=== PATIENT | female | born 1940 | race Caucasian/White ===

== ENCOUNTER → 2020-05-16 14:43 | Outpatient (BNVA) | payer MEDICARE, BC, OTHER, SELFPAY | PROVIDERS: Family Provider Family Medicine; PCP Family Medicine; Referring Provider Dermatology; Visit Provider Dermatology | DX: L72.0 Epidermal cyst (principal); L82.1 Other seborrheic keratosis; D23.9 Other benign neoplasm of skin, unspecified; L81.8 Other specified disorders of pigmentation | CPT/HCPCS: 99203 ==

== ENCOUNTER 2020-07-31 10:08 | Emergency (ER) | payer MEDICARE, BC, SELFPAY ==
[2020-07-31 10:19] VITALS: BP 144/83; PULSE 75; RESP 20; TEMP 37.3; O2SAT 92; BMI 30.2
--- NOTE | 2020-07-31 10:27 | ED_ITS ---
HPI - Altered Mental Status General: Chief Complaint: Altered Mental Status Stated Complaint: CONFUSION/AMS Time Seen by Provider: 07/31/20 10:27 History of Present Illness: HPI narrative: Patient arrive via pov with complaint of confusion -low oxygen saturation and possible high blood sugar. Family states that she had been confused last couple days and patient relates she has been also has had episodes this in the past. Patient also had sleep study done in remote past that was negative at that time patient sats seem to go down when she sleeping. MD complaint: confusion Onset (ago): day(s) (2) Timing confirmed by: family member Consistency of symptoms: Unknown Context: diabetes and other (CHF) Associated symptoms: Reports no associated symptoms; Deny depression Treatments prior to arrival: oxygen Review of Systems Narrative: Fluctuating blood sugars trend to be controlled by primary care provider Const: Denies: fever(s), chills or body aches Eyes: Denies: change in vision or blurry vision ENMT: Denies: throat pain or nasal congestion Card: Denies: chest pain or dyspnea on exertion Resp: Denies: dyspnea, productive cough or non-productive cough GI: Denies: abdominal pain, nausea or vomiting Musc: Denies: extremity pain Skin/Breast: Denies: rash Neuro: Reports: confusion; Denies: headache(s) Psych: Denies: anxiety or depression Newton/Lymph: Denies: easy bruising PFS ED PFSH: Medical History (Updated 07/31/20 @ 14:47 by KENTON Escobar) CHF (congestive heart failure) CKD (chronic kidney disease) Diabetes HTN (hypertension) PVC (premature ventricular contraction) Family History Mother Hypertension Grandmother Hypertension MATERNAL Other Cancer Diabetes Social History Smoking and tobacco status: former smoker Household members: spouse Marital status: Physical Exam Const: COMMON NORMALS: no acute distress, average body habitus and alert ORIENTATION/CONSCIOUSNESS: Yes oriented to person; not oriented to place and not oriented to time HENMT: COMMON NORMALS: normocephalic HEAD & SCALP: normal to inspection and normocephalic FACE & SINUS: normal facial exam Eye: COMMON NORMALS: conjunctivae normal GENERAL EYE: appearance normal, both eyes and all related structures CONJUNCTIVA: Yes conjunctivae normal Neck/C-Spine: COMMON NORMALS: no JVD Chest: COMMONS NORMALS: normal inspection of the chest Resp: COMMON NORMALS: normal respiratory effort and clear to auscultation bilaterally AUSCULTATION: clear to auscultation bilaterally Cardio: COMMON NORMALS: no JVD, regular rate and regular rhythm RATE: regular rate RHYTHM: regular rhythm GI: COMMON NORMALS: Normal to inspection, nondistended, normoactive bowel sounds present Extremity: COMMON NORMALS: normal to inspection and full ROM Neuro: SENSORIUM/ORIENTATION: Yes alert, Yes oriented to person, No oriented to place and No oriented to time Skin: OTHER: Skin to face pale Course Vital Signs: Vital signs: Vital Signs Temperature 99.1 F 07/31/20 10:19 Pulse Rate 83 07/31/20 12:26 Respiratory Rate 20 H 07/31/20 12:26 Blood Pressure 115/65 07/31/20 12:26 Pulse Oximetry 95 07/31/20 12:26 MDM - Altered Mental Status MDM Narrative: Medical decision making narrative: Dr. Nguyen asked me to start evaluation work-up on this patient. Discussed case with Dr. Poole. Patient to follow-up Dr. Garduno get overnight oxygen saturation study done. Try to get blood sugars under control as per Dr. Garduno's office. Patient dropped a urine sample off to Dr. Garduno's office when she can collect. Daughter in the room and agrees with plan. Differential Diagnosis: Differential diagnosis altered mental status: Likely altered mental status and dementia Lab Data: Labs: Lab Results 07/31/20 07/31/20 07/31/20 Range/Units 10:30 10:30 10:30 WBC 6.8 (4.0-10.0) 10^3/ uL RBC 3.31 L (4.1-5.3) 10^6/u L Hgb 9.9 L (11.5-15.3) g/dL Hct 30.4 L (37.0-47.0) % MCV 91.8 (81-99) fL MCH 29.9 (28.0-34.0) pg MCHC 32.6 (30.0-36.0) g/dL RDW 12.0 L (12.1-15.1) % Plt Count 190 (130-400) 10^3/c mm MPV 10.1 (7.4-10.4) fL Neut % (Auto) 74.4 % Lymph % (Auto) 15.8 % [place] % (Auto) 9.1 % Eos % (Auto) 0.0 % Baso % (Auto) 0.3 % Neut # (Auto) 5.09 (1.8-7.7) 10^3/u L Lymph # (Auto) 1.1 (0.8-4.8) 10^3/u L [place] # (Auto) 0.6 (0.2-0.9) 10^3/u L Eos # (Auto) 0.0 (0.0-0.8) 10^3/u L Baso # (Auto) 0.0 (0.0-0.1) 10^3/u L Nucleated RBC % (a uto) 0 % Nucleated RBCs # 0.0 /100WBC PT 14.40 (12.1-14.9) SECO NDS INR 1.08 (0.8-1.2) Specimen Type Sample Site ABG pH (7.35-7.45) ABG pCO2 (35-45) mmHg ABG pO2 (80.0-100.0) mmH g ABG HCO3 (22-26) mmol/L ABG Base Excess (-2.0-2.0) mmol/ L Jorge Test Hematocrit (37-47) % O2 Delivery Device O2 Liters/Min % FiO2 % Form Builder Helper ID Sodium 132 L (136-145) mmol/L Potassium 4.2 (3.5-5.1) mmol/L Chloride 97 L (98-107) mmol/L Carbon Dioxide 22 (22-29) mmol/L Anion Gap 17.2 (5-19) BUN 43 H (8-23) mg/dL Creatinine 2.4 H (0.5-0.9) mg/dL GFR Calculation Not Reportable Glucose 382 H (65-115) mg/dL POC Glucose (70-110) mg/dL Calculated Osmolal ity 301 H (285-295) mOsm/k g Lactate (0.5-2.2) mmol/L Calcium 8.7 (8.5-10.5) mg/dL Total Bilirubin 0.4 (0.15-1.2) mg/dL AST 19 (0-32) U/L ALT 15 (0-33) U/L Alkaline Phosphata se 95 (35-105) IU/L NT-Pro-B Natriuret Pep 2821 H (0-450) pg/mL Total Protein 6.9 (6.6-8.7) g/dL Albumin 3.6 (3.5-5.2) g/dL Globulin 3.3 (1.3-4.6) g/dL 07/31/20 07/31/20 07/31/20 Range/Units 10:30 10:35 11:23 WBC (4.0-10.0) 10^3/ uL RBC (4.1-5.3) 10^6/u L Hgb (11.5-15.3) g/dL Hct (37.0-47.0) % MCV (81-99) fL MCH (28.0-34.0) pg MCHC (30.0-36.0) g/dL RDW (12.1-15.1) % Plt Count (130-400) 10^3/c mm MPV (7.4-10.4) fL Neut % (Auto) % Lymph % (Auto) % [place] % (Auto) % Eos % (Auto) % Baso % (Auto) % Neut # (Auto) (1.8-7.7) 10^3/u L Lymph # (Auto) (0.8-4.8) 10^3/u L [place] # (Auto) (0.2-0.9) 10^3/u L Eos # (Auto) (0.0-0.8) 10^3/u L Baso # (Auto) (0.0-0.1) 10^3/u L Nucleated RBC % (a uto) % Nucleated RBCs # /100WBC PT (12.1-14.9) SECO NDS INR (0.8-1.2) Specimen Type Arterial Sample Site Radial, left ABG pH 7.42 (7.35-7.45) ABG pCO2 33.0 L (35-45) mmHg ABG pO2 72.8 L (80.0-100.0) mmH g ABG HCO3 21.3 L (22-26) mmol/L ABG Base Excess -2.7 L (-2.0-2.0) mmol/ L Jorge Test Pos Hematocrit 30.3 L (37-47) % O2 Delivery Device Nc O2 Liters/Min 2.0 % FiO2 28.0 % Form Builder Helper ID glc Sodium (136-145) mmol/L Potassium (3.5-5.1) mmol/L Chloride (98-107) mmol/L Carbon Dioxide (22-29) mmol/L Anion Gap (5-19) BUN (8-23) mg/dL Creatinine (0.5-0.9) mg/dL GFR Calculation Glucose (65-115) mg/dL POC Glucose 385 (70-110) mg/dL Calculated Osmolal ity (285-295) mOsm/k g Lactate 1.2 (0.5-2.2) mmol/L Calcium (8.5-10.5) mg/dL Total Bilirubin (0.15-1.2) mg/dL AST (0-32) U/L ALT (0-33) U/L Alkaline Phosphata se (35-105) IU/L NT-Pro-B Natriuret Pep (0-450) pg/mL Total Protein (6.6-8.7) g/dL Albumin (3.5-5.2) g/dL Globulin (1.3-4.6) g/dL 07/31/20 Range/Units 12:14 WBC (4.0-10.0) 10^3/ uL RBC (4.1-5.3) 10^6/u L Hgb (11.5-15.3) g/dL Hct (37.0-47.0) % MCV (81-99) fL MCH (28.0-34.0) pg MCHC (30.0-36.0) g/dL RDW (12.1-15.1) % Plt Count (130-400) 10^3/c mm MPV (7.4-10.4) fL Neut % (Auto) % Lymph % (Auto) % [place] % (Auto) % Eos % (Auto) % Baso % (Auto) % Neut # (Auto) (1.8-7.7) 10^3/u L Lymph # (Auto) (0.8-4.8) 10^3/u L [place] # (Auto) (0.2-0.9) 10^3/u L Eos # (Auto) (0.0-0.8) 10^3/u L Baso # (Auto) (0.0-0.1) 10^3/u L Nucleated RBC % (a uto) % Nucleated RBCs # /100WBC PT (12.1-14.9) SECO NDS INR (0.8-1.2) Specimen Type Sample Site ABG pH (7.35-7.45) ABG pCO2 (35-45) mmHg ABG pO2 (80.0-100.0) mmH g ABG HCO3 (22-26) mmol/L ABG Base Excess (-2.0-2.0) mmol/ L Jorge Test Hematocrit (37-47) % O2 Delivery Device O2 Liters/Min % FiO2 % Form Builder Helper ID Sodium (136-145) mmol/L Potassium (3.5-5.1) mmol/L Chloride (98-107) mmol/L Carbon Dioxide (22-29) mmol/L Anion Gap (5-19) BUN (8-23) mg/dL Creatinine (0.5-0.9) mg/dL GFR Calculation Glucose (65-115) mg/dL POC Glucose 283 (70-110) mg/dL Calculated Osmolal ity (285-295) mOsm/k g Lactate (0.5-2.2) mmol/L Calcium (8.5-10.5) mg/dL Total Bilirubin (0.15-1.2) mg/dL AST (0-32) U/L ALT (0-33) U/L Alkaline Phosphata se (35-105) IU/L NT-Pro-B Natriuret Pep (0-450) pg/mL Total Protein (6.6-8.7) g/dL Albumin (3.5-5.2) g/dL Globulin (1.3-4.6) g/dL Discharge Plan Discharge Patient Disposition: Home Clinical Impression: Hyperglycemia, Nocturnal oxygen desaturation Condition: Stable Prescriptions: No Action coenzyme Q10 [CoQ-10] 100 mg capsule 100 mg PO DAILY RF: 0 docusate sodium [Stool Softener] 100 mg capsule 100 mg PO DAILY RF: 0 ferrous sulfate 325 mg (65 mg iron) tablet 325 mg PO BID RF: 0 losartan 100 mg tablet 100 mg PO DAILY RF: 0 Lantus U-100 Insulin 100 unit/mL solution 30 unit SUBCUT BEDTIME RF: 0 insulin lispro [Humalog U-100 Insulin] 100 unit/mL solution See Rx Instructions .ROUTE .COMPLEX RF: 0 metoprolol succinate 100 mg tablet extended release 24 hr 100 mg PO DAILY RF: 0 levothyroxine 75 mcg tablet 75 mcg PO DAILY RF: 0 potassium chloride [Klor-Con M10] 10 mEq tablet,ER particles/crystals 20 meq PO DAILY RF: 0 doxazosin 2 mg tablet 2 mg PO BEDTIME RF: 0 aspirin [Aspir-81] 81 mg tablet,delayed release (DR/EC) 81 mg PO DAILY RF: 0 clonidine HCl 0.1 mg tablet 0.1 mg PO PRN PRN (Reason: hypertensive emergency) RF: 0 atorvastatin 10 mg tablet 5 mg PO DAILY RF: 0 omeprazole 20 mg capsule,delayed release(DR/EC) 20 mg PO DAILY RF: 0 amlodipine 5 mg tablet 10 mg PO DAILY RF: 0 torsemide 20 mg tablet 20 mg PO DAILY RF: 0 Tylenol Extra Strength 500 mg Tablet 500 - 1,000 mg PO PRN RF: 0 Centrum Silver Tablet 1 tab PO DAILY RF: 0 [place] 3 Capsule 1,000 mg PO DAILY RF: 0 turmeric root extract 500 mg Capsule 500 mg PO DAILY RF: 0 Discharge Orders: Discharge Order (Routine); Ordered 07/31/20 Ordered By: Mac Albert Referrals: Mann Garduno MD [Primary Care Provider] - Discharge Diet: Advance as tolerated Discharge Activity: Resume usual activity Activity Restrictions/Additional Instructions: maker sure to get scheduled for an overnight oxygen saturation test, take urine sample into Dr. Wiley, follow up with him Coding Level of Care Code ED Mutual Fund Manager for Chg Fwd Exam Comprehensive
--- NOTE | 2020-07-31 10:34 | CT_ITS ---
WS: [id number] CT scan of the head, 07/31/2020 Clinical Data: ams Comparison: MRI head, 12/16/2018. CT head, 12/15/2018. DLP: 778.[address] scans at [facility] use at least one of these dose optimization techniques: automat ed exposure control; mA and/or kV adjustment per patient size (includes targeted exams where dose is matched to clinical indication); or iterative reconstruction. Findings: The ventricular system is moderately dilated without shift. No recent infarct or hemorrhage is seen. There are no abnormal intracerebral masses. There is a faint calcification adjacent to the anterior h orn of the right temporal lobe which has been described as a small meningioma. A CT scan with IV cont rast may be helpful for evaluation. This is seen best on image 15 of 56 on the axial scans. The cereb ellum and brainstem are not remarkable. Bony windows of the skull and skull base show no fractures or erosions. The mastoid air cells, culinary internship al auditory canals, sella turcica, and paranasal sinuses are unremarkable. Bilateral intraocular levy s implants have been inserted. CT/CT head wo con* [id number] Impression: 1. Moderate cerebral atrophy. 2. Negative for acute intracranial abnormalities. 3. Questionable small right temporal lobe meningioma has not changed.
--- NOTE | 2020-07-31 10:34 | XR_ITS ---
WS: [id number] XR chest 1V portable [id number] REASON FOR EXAM: ams FINDINGS: The chest is unchanged compared to previous examination of 08/24/2019. There is reticular interstitial change in the upper lung field which is present on the previous examination. More coarse chronic jason earing interstitial changes in the lung bases. No definite new infiltrates. No effusion identified. Mild cardiomegaly. XR/XR chest 1V portable [id number] IMPRESSION: Stable abnormal chest.
[2020-07-31 10:38] LABS: Glucose Point of Care 385 mg/dL (70-110)
[2020-07-31] MEDS: sodium chloride 0.9% 500 ML IV (10:45)
[2020-07-31 10:55] LABS: Basophils % 0.3 %; Hematocrit 30.4 % (37.0-47.0); Hemoglobin 9.9 g/dL (11.5-15.3); Lymphocytes # 1.1 10^3/uL (0.8-4.8); Lymphocytes % 15.8 %; Mean Corpuscular HGB Conc 32.6 g/dL (30.0-36.0); Mean Corpuscular Hemoglobin 29.9 pg (28.0-34.0); Mean Corpuscular Volume 91.8 fL (81-99); Mean Platelet Volume 10.1 fL (7.4-10.4); Monocytes # 0.6 10^3/uL (0.2-0.9); Monocytes % 9.1 %; Neutrophils # 5.09 10^3/uL (1.8-7.7); Neutrophils % 74.4 %; Nucleated Red Blood Cells % 0 %; Platelet Count 190 10^3/cmm (130-400); Red Blood Count 3.31 10^6/uL (4.1-5.3); White Blood Count 6.8 10^3/uL (4.0-10.0)
[2020-07-31 11:08] LABS: INR 1.08 (0.8-1.2)
[2020-07-31 11:10] LABS: Lactate (Lactic Acid level) 1.2 mmol/L (0.5-2.2)
[2020-07-31 11:18] LABS: Alanine Aminotransferase 15 U/L (0-33); Albumin Level 3.6 g/dL (3.5-5.2); Alkaline Phosphatase 95 IU/L (35-105); Anion Gap 17.2 (5-19); Aspartate Amino Transferase 19 U/L (0-32); Blood Urea Nitrogen 43 mg/dL (8-23); Calcium 8.7 mg/dL (8.5-10.5); Carbon Dioxide 22 mmol/L (22-29); Chloride 97 mmol/L (98-107); Globulin 3.3 g/dL (1.3-4.6); Glucose 382 mg/dL (65-115); NT Pro B Type Natriuretic Pept 2821 pg/mL (0-450); Osmolality Calculated 301 mOsm/kg (285-295); Potassium 4.2 mmol/L (3.5-5.1); Sodium 132 mmol/L (136-145); Total Bilirubin 0.4 mg/dL (0.15-1.2); Total Protein 6.9 g/dL (6.6-8.7)
[2020-07-31 11:35] LABS: ABG PH Result 7.42 (7.35-7.45); Arterial Blood Gas Hematocrit 30.3 % (37-47); Base Excess ABG -2.7 mmol/L (-2.0-2.0); Blood Gas Allen Test Pos; Blood Gas Operator Identificat glc; Blood Gas Sample Site Radial, left; Blood Gas Sample Type Arterial; HCO3 ABG 21.3 mmol/L (22-26); Oxygen Device NC; PO2 ABG 72.8 mmHg (80.0-100.0)
[2020-07-31] MEDS: insulin regular-human 100 units/1 mL 8 UNIT IVP (11:39)
[2020-07-31 11:40] VITALS: BP 130/64; PULSE 73; RESP 16; O2SAT 99
[2020-07-31 12:19] LABS: Glucose Point of Care 283 mg/dL (70-110)
[2020-07-31 12:26] VITALS: BP 115/65; PULSE 83; RESP 20; O2SAT 95
[2020-07-31] MEDS: FUROsemide 10 mg/mL SDV 4mL 40 MG IVP (13:25)
[2020-07-31 15:27] VITALS: BP 115/65; PULSE 83; RESP 20; O2SAT 95
== END 2020-07-31 15:27 | disposition home or self-care (01) ==
PROVIDERS: Emergency Provider Nurse Practitioner Family; PCP Family Medicine
DX: E11.65 Type 2 diabetes mellitus with hyperglycemia (principal); N18.9 Chronic kidney disease, unspecified; Z79.4 Long term (current) use of insulin; Z79.82 Long term (current) use of aspirin; Z87.891 Personal history of nicotine dependence; I13.0 Hypertensive heart and chronic kidney disease with heart failure and stage 1 through stage 4 chronic kidney disease, or unspecified chronic kidney disease; I50.9 Heart failure, unspecified; E11.22 Type 2 diabetes mellitus with diabetic chronic kidney disease
CPT/HCPCS: 12345; 36416; 36600; 70450; 71045; 80053; 82803; 82962; 83605; 83880; 85025; 85610; 96361; 96374; 96375; 99283; 99284; J1815; J1940; J7040

== ENCOUNTER 2020-08-02 13:16 | Inpatient (IN) | payer MEDICARE, BC, SELFPAY ==
[2020-08-02] VITALS (20 sets, daily range): BP systolic 122–164; BP diastolic 43–85; PULSE 71–87; RESP 16–33; TEMP 37.4–39.2; O2SAT 82–95; BMI 33.0
--- NOTE | 2020-08-02 13:24 | XR_ITS ---
WS: [id number] Portable AP upright chest, 08/02/2020 Clinical Data: ams Comparison: Portable chest, 07/31/2020. Findings: The patchy opacity in the right upper lobe have not changed. However there is increasing op acity in the left lung and the right lower lobe. The heart is enlarged. The aortic arch shows calcifi cation. No masses or effusions are seen. XR/XR chest 1V portable [id number] Impression: 1. Worsening opacities in left lung and right lower lobe which may indicate wor sening pneumonia. 2. No change in right upper lobe opacity. 3. Cardiomegaly and atherosclerosis.
--- NOTE | 2020-08-02 13:24 | CTR_ITS ---
PROCEDURE INFORMATION: Exam: CT Head Without Contrast Exam date and time: 08/02/2020 1:28 PM Age: 80 years old Clinical indication: Altered mental status/memory loss; Additional info: AMS - progressively worse from the other day TECHNIQUE: Imaging protocol: Computed tomography of the head without contrast. Radiation optimization: All CT scans at this facility use at least one of these dose optimization techniques: automated exposure control; mA and/or kV adjustment per patient size (includes targeted exams where dose is matched to clinical indication); or iterative reconstruction. COMPARISON: CT head wo con* [id number] 07/31/2020 11:18 AM RADIATION DOSE METRICS: Total DLP (mGy-cm): 559.98 FINDINGS: Brain: There is no acute intracranial hemorrhage or mass effect. Moderate diffuse volume loss is within the range of normal for patient age. There are small vessel ischemic changes within the periventricular and subcortical white matter, but the normal anderson-white matter delineation is maintained. There is a stable small partially calcified right anterior temporal meningioma. Cerebral ventricles: Prominence of the ventricular system is commensurate with volume loss. Bones/joints: Unremarkable. No acute fracture. Paranasal sinuses: Visualized sinuses are unremarkable. No fluid levels. Mastoid air cells: Visualized mastoid air cells are well aerated. Soft tissues: Unremarkable. CT/CT head wo con* [id number] IMPRESSION: No acute intracranial hemorrhage or edema. Radiation Dose CTDIVOL = (mGy): DLP = 559.98 (mGy-cm)
--- NOTE | 2020-08-02 13:25 | ECG_ITS ---
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 Measurements Intervals Mobile Rate: 86 P: 25 WA: 168 QRS: 29 QRSD: 101 T: 66 QT: 370 QTc: 445 Interpretive Statements SINUS RHYTHM WITH OCCASIONAL SUPRAVENTRICULAR PREMATURE COMPLEXES NONSPECIFIC T-WAVE ABNORMALITY Compared to ECG 03/11/2019 15:00:35 T-wave abnormality now present Electronically Signed On 08-03-2020 20:05:41 [employer] by Tony Villatoro M.D. [email or web address]
--- NOTE | 2020-08-02 14:06 | W.ED.AMS ---
HPI - Altered Mental Status General: Chief Complaint: Altered Mental Status Stated Complaint: AMS Time Seen by Provider: 08/02/20 13:21 Source: patient Mode of arrival: ambulatory Limitations: no limitations History of Present Illness: HPI narrative: 80-year-old female states she has been feeling quite ill over the last 2 to 3 days along with generalized weakness and diaphoresis. She has had low-grade fevers along with some shortness of breath. Per family states she has been altered today. She is able answer all my questions appropriately but does a appear that she feels ill. Associated symptoms: Deny depression Review of Systems Const: Reports: chills and malaise Eyes: Denies: blurry vision or eye discomfort ENMT: Denies: throat pain or dental pain Card: Denies: chest pain Resp: Reports: dyspnea GI: Denies: abdominal pain, nausea, vomiting or diarrhea : Denies: dysuria Musc: Denies: neck pain or back pain Skin/Breast: Denies: rash Neuro: Reports: weakness in extremities Psych: Denies: depression Newton/Lymph: Denies: easy bruising All/Imm: Denies: urticaria PFSH ED PFSH: Medical History (Updated 08/02/20 @ 15:59 by David Gaitan MD) CHF (congestive heart failure) CKD (chronic kidney disease) Diabetes HTN (hypertension) PVC (premature ventricular contraction) Family History Mother Hypertension Grandmother Hypertension MATERNAL Other Cancer Diabetes Social History Smoking and tobacco status: former smoker Household members: spouse Marital status: Physical Exam Const: COMMON NORMALS: patient oriented x3 GENERAL APPEARANCE: ill appearing HENMT: COMMON NORMALS: normocephalic and atraumatic HEAD & SCALP: normocephalic and atraumatic Eye: COMMON NORMALS: Equal, round and reactive pupils present and EOMs intact bilaterally PUPIL: Yes Equal, round and reactive pupils present Neck/C-Spine: COMMON NORMALS: full ROM and supple Chest: COMMONS NORMALS: normal inspection of the chest and normal palpation of entire chest wall Resp: COMMON NORMALS: normal respiratory effort, No retractions and No use of accessory muscles AUSCULTATION: rales Cardio: COMMON NORMALS: regular rate, regular rhythm and No murmurs present (Cardio) RATE: regular rate RHYTHM: regular rhythm GI: COMMON NORMALS: Normal to inspection, nondistended, normoactive bowel sounds present, Soft to palpation, non-tender and no masses PALPATION: Yes Soft to palpation Extremity: COMMON NORMALS: normal to inspection and full ROM Neuro: COMMON NORMALS: patient oriented x3, moves all extremities and no focal motor deficits Psych: COMMON NORMALS: mental status grossly normal, Normal thought process present and cooperative THOUGHT PROCESS: Normal thought process present Skin: COMMON NORMALS: no rashes or lesions noted and no wounds GENERAL SKIN EXAM: no rashes or lesions noted Course Vital Signs: Vital signs: Vital Signs Pulse Rate 78 08/02/20 15:30 Respiratory Rate 18 08/02/20 15:30 Blood Pressure 129/49 08/02/20 15:30 Pulse Oximetry 89 L 08/02/20 15:30 MDM - Altered Mental Status MDM Narrative: Medical decision making narrative: Patient presents here with altered mental status and confusion. Patient also is having some shortness of breath and requiring 3 L of oxygen here. Her x-ray is consistent with Covid and she did test positive. Spoke to hospitalist will admit to the viral ICU. Patient's vital signs here been stable. I gave her Decadron and remdesivir. Lab Data: Labs: Lab Results 08/02/20 08/02/20 08/02/20 Range/Units 14:19 14:23 14:32 WBC 7.2 (4.0-10.0) 10^3/ uL RBC 3.35 L (4.1-5.3) 10^6/u L Hgb 9.9 L (11.5-15.3) g/dL Hct 29.0 L (37.0-47.0) % MCV 86.6 (81-99) fL MCH 29.6 (28.0-34.0) pg MCHC 34.1 (30.0-36.0) g/dL RDW 11.9 L (12.1-15.1) % Plt Count 192 (130-400) 10^3/c mm MPV 10.5 H (7.4-10.4) fL Neut % (Auto) 82.7 % Lymph % (Auto) 13.2 % Riley % (Auto) 3.6 % Eos % (Auto) 0.0 % Baso % (Auto) 0.1 % Neut # (Auto) 5.97 (1.8-7.7) 10^3/u L Lymph # (Auto) 1.0 (0.8-4.8) 10^3/u L Riley # (Auto) 0.3 (0.2-0.9) 10^3/u L Eos # (Auto) 0.0 (0.0-0.8) 10^3/u L Baso # (Auto) 0.0 (0.0-0.1) 10^3/u L Nucleated RBC % (a uto) 0 % Nucleated RBCs # 0.0 /100WBC Sodium (136-145) mmol/L Potassium (3.5-5.1) mmol/L Chloride (98-107) mmol/L Carbon Dioxide (22-29) mmol/L Anion Gap (5-19) BUN (8-23) mg/dL Creatinine (0.5-0.9) mg/dL GFR Calculation Glucose (65-115) mg/dL Calculated Osmolal ity (285-295) mOsm/k g Calcium (8.5-10.5) mg/dL Total Bilirubin (0.15-1.2) mg/dL AST (0-32) U/L ALT (0-33) U/L Alkaline Phosphata se (35-105) IU/L C-Reactive Protein (0.0-4.9) mg/L Total Protein (6.6-8.7) g/dL Albumin (3.5-5.2) g/dL Globulin (1.3-4.6) g/dL Lipase (13-60) U/L Urine Color Yellow (Yellow) Urine Appearance Sl hazy (CLEAR) Urine pH 5.0 (5-7) Ur Specific Gravit y 1.020 (1.005-1.030) Urine Protein 3+ H (Negative) Urine Glucose (UA) Norm (Normal) Urine Ketones Negative (Negative) Urine Blood 3+ H (Negative) Urine Nitrate Negative (Negative) Urine Bilirubin Neg (Negative) Urine Urobilinogen Norm (Negative) mg/dL Ur Leukocyte Chika ase Negative (Negative) Amorphous Sediment Not Reportable SARS-CoV-2 Ag (Rap id) Positive H (Negative) 08/02/20 08/02/20 Range/Units 14:32 14:32 WBC (4.0-10.0) 10^3/ uL RBC (4.1-5.3) 10^6/u L Hgb (11.5-15.3) g/dL Hct (37.0-47.0) % MCV (81-99) fL MCH (28.0-34.0) pg MCHC (30.0-36.0) g/dL RDW (12.1-15.1) % Plt Count (130-400) 10^3/c mm MPV (7.4-10.4) fL Neut % (Auto) % Lymph % (Auto) % Riley % (Auto) % Eos % (Auto) % Baso % (Auto) % Neut # (Auto) (1.8-7.7) 10^3/u L Lymph # (Auto) (0.8-4.8) 10^3/u L Riley # (Auto) (0.2-0.9) 10^3/u L Eos # (Auto) (0.0-0.8) 10^3/u L Baso # (Auto) (0.0-0.1) 10^3/u L Nucleated RBC % (a uto) % Nucleated RBCs # /100WBC Sodium 130 L (136-145) mmol/L Potassium 3.4 L (3.5-5.1) mmol/L Chloride 93 L (98-107) mmol/L Carbon Dioxide 20 L (22-29) mmol/L Anion Gap 20.4 H (5-19) BUN 49 H (8-23) mg/dL Creatinine 2.5 H (0.5-0.9) mg/dL GFR Calculation Not Reportable Glucose 79 (65-115) mg/dL Calculated Osmolal ity 282 L (285-295) mOsm/k g Calcium 8.5 (8.5-10.5) mg/dL Total Bilirubin 0.2 (0.15-1.2) mg/dL AST 137 H (0-32) U/L ALT 49 H (0-33) U/L Alkaline Phosphata se 89 (35-105) IU/L C-Reactive Protein 60.6 H (0.0-4.9) mg/L Total Protein 6.8 (6.6-8.7) g/dL Albumin 3.4 L (3.5-5.2) g/dL Globulin 3.4 (1.3-4.6) g/dL Lipase 49 (13-60) U/L Urine Color (Yellow) Urine Appearance (CLEAR) Urine pH (5-7) Ur Specific Gravit y (1.005-1.030) Urine Protein (Negative) Urine Glucose (UA) (Normal) Urine Ketones (Negative) Urine Blood (Negative) Urine Nitrate (Negative) Urine Bilirubin (Negative) Urine Urobilinogen (Negative) mg/dL Ur Leukocyte Chika ase (Negative) Amorphous Sediment SARS-CoV-2 Ag (Rap id) (Negative) Imaging Data^: CT Head: Radiologist's impression: [address] [address] [address] Scan Report Signed with Addenda Patient: Luiza Cooper Unit #: [id number] : 1940 Age/Sex: 80 / F ADM Date: 08/02/20 Loc: ER Room/Bed: Attending Dr: Ordering Provider/Ordering MD: David Gaitan MD Date of Service: 08/02/20 Procedure(s): CT head wo con* [id number] Accession Number(s): [id number] Report Number: [id number] HEAD TECHNIQUE: Noncontrast CT of the head obtained from the skullbase to the vertex. CLINICAL INFORMATION: ams COMPARISON: CT July 31, 2020, December 15, 2018, MRI 3 ,019 DLP: 559.[address] scans at [facility] use at least one of these dose optimization techniques: automated exposure control; mA and/or kV adjustment per patient size (includes targeted exams where dose is matched to clinical indication); or iterative reconstruction. FINDINGS: No evidence of intracranial hemorrhage or mass effect. Ventricular system and basal cisterns are patent. Mild small vessel changes with moderate parenchymal volume loss. Stable incidental right sphenoid wing calcified meningioma measuring 9 mm. No surrounding edema. Intracranial vascular calcification. No extra-axial fluid collections. No hydrocephalus. Paranasal sinuses and mastoid air cells are well aerated. .Normal visualized soft tissues. IMPRESSION: 1. No evidence of intracranial hemorrhage or mass effect. 2. Mild small vessel changes with moderate parenchymal volume loss. 3. Calcified meningioma along the right sphenoid wing measuring 9 mm is likely incidental and unchanged. 4. No significant changes from July 31, 2020 Notified David Gaitan MD at 08/02/2020 1:48 PM. Addendum Dictated By: Ever Peguero MD Addendum Signed By: Ever Peguero MD Signed Date/Time: 0 1402 Addendum Cosigned By: PROCEDURE INFORMATION: Exam: CT Head Without Contrast Exam date and time: 08/02/2020 1:28 PM Age: 80 years old Clinical indication: Altered mental status/memory loss; Additional info: AMS - progressively worse from the other day TECHNIQUE: Imaging protocol: Computed tomography of the head without contrast. Radiation optimization: All CT scans at this facility use at least one of these dose optimization techniques: automated exposure control; mA and/or kV adjustment per patient size (includes targeted exams where dose is matched to clinical indication); or iterative reconstruction. COMPARISON: CT head wo con* [id number] 07/31/2020 11:18 AM RADIATION DOSE METRICS: Total DLP (mGy-cm): 559.98 FINDINGS: Brain: There is no acute intracranial hemorrhage or mass effect. Moderate diffuse volume loss is within the range of normal for patient age. There are small vessel ischemic changes within the periventricular and subcortical white matter, but the normal anderson-white matter delineation is maintained. There is a stable small partially calcified right anterior temporal meningioma. Cerebral ventricles: Prominence of the ventricular system is commensurate with volume loss. Bones/joints: Unremarkable. No acute fracture. Paranasal sinuses: Visualized sinuses are unremarkable. No fluid levels. Mastoid air cells: Visualized mastoid air cells are well aerated. Soft tissues: Unremarkable. CT/CT head wo con* [id number] IMPRESSION: No acute intracranial hemorrhage or edema. CXR: Radiologist's impression: [address] [place] [address] XRay Report Signed Patient: Luiza Cooper Unit #: [id number] : 1940 Age/Sex: 80 / F ADM Date: 08/02/20 Loc: ER Room/Bed: Attending Dr: Ordering Provider/Ordering MD: David Gaitan MD Date of Service: 08/02/20 Procedure(s): XR chest 1V portable [id number] Accession Number(s): [id number] Report Number: [id number] WS: [id number] Portable AP upright chest, 08/02/2020 Clinical Data: ams Comparison: Portable chest, 07/31/2020. Findings: The patchy opacity in the right upper lobe have not changed. However there is increasing opacity in the left lung and the right lower lobe. The heart is enlarged. The aortic arch shows calcification. No masses or effusions are seen. XR/XR chest 1V portable [id number] Impression: 1. Worsening opacities in left lung and right lower lobe which may indicate worsening pneumonia. 2. No change in right upper lobe opacity. 3. Cardiomegaly and atherosclerosis. EKG Data^: EKG 1: Attestation: I personally reviewed and interpreted this EKG as follows: EKG interpretation date: 08/02/20 EKG interpretation time: 14:15 Interpretation: nsr hr [address] or t wave abnormalities qrs 101 qtc 414 Discharge Plan Discharge Patient Disposition: Admitted As Inpatient Clinical Impression: Altered mental status, Pneumonia due to 2019-nCoV Condition: Stable Coding Level of Care Code ED Auto Body Service Mechanic for Chg Fwd Exam Comprehensive
[2020-08-02 14:35] LABS: Basophils % 0.1 %; Hemoglobin 9.9 g/dL (11.5-15.3); Lymphocytes % 13.2 %; Mean Corpuscular HGB Conc 34.1 g/dL (30.0-36.0); Mean Corpuscular Hemoglobin 29.6 pg (28.0-34.0); Mean Corpuscular Volume 86.6 fL (81-99); Mean Platelet Volume 10.5 fL (7.4-10.4); Monocytes # 0.3 10^3/uL (0.2-0.9); Monocytes % 3.6 %; Neutrophils # 5.97 10^3/uL (1.8-7.7); Neutrophils % 82.7 %; Nucleated Red Blood Cells % 0 %; Platelet Count 192 10^3/cmm (130-400); Red Blood Count 3.35 10^6/uL (4.1-5.3); Red Cell Distribution Width 11.9 % (12.1-15.1); White Blood Count 7.2 10^3/uL (4.0-10.0)
[2020-08-02 15:04] LABS: Add Urine Microscopic? YES; Bilirubin Urine Neg (Negative); Blood Urine 3+ (Negative); Glucose Urine UA Norm (Normal); Ketones Urine Negative (Negative); Leukocyte Esterase Urine Negative (Negative); Nitrate Urine Negative (Negative); Protein Urine 3+ (Negative); Urine Appearance SL Hazy (CLEAR); Urine Color Yellow (Yellow); Urobilinogen Urine Norm (Negative)
[2020-08-02 15:06] LABS: Alanine Aminotransferase 49 U/L (0-33); Albumin Level 3.4 g/dL (3.5-5.2); Alkaline Phosphatase 89 IU/L (35-105); Anion Gap 20.4 (5-19); Aspartate Amino Transferase 137 U/L (0-32); Blood Urea Nitrogen 49 mg/dL (8-23); Calcium 8.5 mg/dL (8.5-10.5); Carbon Dioxide 20 mmol/L (22-29); Chloride 93 mmol/L (98-107); Globulin 3.4 g/dL (1.3-4.6); Glucose 79 mg/dL (65-115); Lipase 49 U/L (13-60); Osmolality Calculated 282 mOsm/kg (285-295); Potassium 3.4 mmol/L (3.5-5.1); Sodium 130 mmol/L (136-145); Total Bilirubin 0.2 mg/dL (0.15-1.2); Total Protein 6.8 g/dL (6.6-8.7)
[2020-08-02 15:16] LABS: SARS Covid-2 Antigen Positive (Negative)
[2020-08-02 15:59] LABS: C Reactive Protein 60.6 mg/L (0.0-4.9)
[2020-08-02 16:09] LABS: Add Urine Culture? Yes; Bacteria Urine 3+ /hpf; Mucus Urine 1+ /hpf; Squamous Epithelial Cell Urine 0-4 /hpf (0-5); WBC Urine 0-4 /hpf (0-5)
[2020-08-02 16:37] LABS: Fibrinogen 478 mg/dL (174-498)
--- NOTE | 2020-08-02 16:37 | PM.HP ---
Providers/Chief Complaint Primary Care Provider: Mann Garduno MD Chief Complaint: AMS History of Present Illness Luiza Cooper is a 80 year old female with a past medical history of heart failure with preserved ejection fraction, insulin-dependent type 2 diabetes mellitus, hypertension, hyperlipidemia, hypothyroidism, CKD stage unknown, obesity, who presents to [facility] due to confusion. During my examination, patient is alert oriented x3, follows commands, is a bit stoic, has some episodes of confusion, such as not remembering her 's name, or her own last name, her responses times are quite delayed. She tells me that she is here because she is confused, her said that she is confused, she lives in [place] with her . No fevers, no chills, has a cough, some shortness of breath with exertion, no chest pain, no lightheadedness, no dizziness, no nausea, no vomiting, no abdominal pain, no diarrhea, no joint pains, no dysgeusia. She denies any sick contacts, no known exposure to COVID-19, no recent falls, no recent injuries, no history of TIA, no history of stroke, no history of CAD, no history of COPD, denies smoking. Review of Systems Const: Denies: fever(s), chills, fatigue or malaise Eyes: Denies: change in vision or blurry vision ENMT: Denies: nasal congestion Resp: Denies: dyspnea, productive cough, non-productive cough or wheezing GI: Denies: abdominal pain, nausea, vomiting, hematemesis, diarrhea, constipation, hematochezia or melena : Denies: flank pain, dysuria or urinary frequency Musc: Denies: neck pain or back pain Skin/Breast: Denies: rash Neuro: Denies: headache(s), dizziness or vertigo Psych: Denies: anxiety or depression Endo: Denies: polyuria or polydipsia Medications/Allergies Home Medications Medication Instructions Recorded Confirmed Last Taken Type aspirin 81 mg tablet,delayed 81 mg PO DAILY 03/15/20 07/31/20 07/31/20 History release atorvastatin 10 mg tablet 5 mg PO DAILY tab 03/15/20 07/31/20 07/30/20 History clonidine HCl 0.1 mg tablet 0.1 mg PO PRN PRN tab 03/15/20 07/31/20 Unknown History doxazosin 2 mg tablet 2 mg PO BEDTIME 03/15/20 07/31/20 07/30/20 History insulin glargine 100 unit/mL 30 unit SUBCUT BEDTIME ml 03/15/20 07/31/20 07/30/20 History subcutaneous solution 25 units insulin lispro 100 unit/mL See Rx Instructions .ROUTE .COMPLEX 03/15/20 07/31/20 07/31/20 History subcutaneous solution 5 units levothyroxine 75 mcg tablet 75 mcg PO DAILY 03/15/20 07/31/20 07/31/20 History losartan 100 mg tablet 100 mg PO DAILY 03/15/20 07/31/20 07/30/20 History metoprolol succinate 100 mg 100 mg PO DAILY 03/15/20 07/31/20 07/30/20 History tablet,extended release 24 hr omeprazole 20 mg capsule,delayed 20 mg PO DAILY 03/15/20 07/31/20 07/30/20 History release potassium chloride 10 mEq 20 meq PO DAILY tab 03/15/20 07/31/20 Unknown History tablet,extended release(part/cryst) amlodipine 5 mg tablet 10 mg PO DAILY tab 03/26/20 07/31/20 07/31/20 History coenzyme Q10 100 mg capsule 100 mg PO DAILY 03/26/20 07/31/20 07/30/20 History docusate sodium 100 mg capsule 100 mg PO DAILY 03/26/20 07/31/20 Unknown History ferrous sulfate 325 mg (65 mg 325 mg PO BID 03/26/20 07/31/20 07/31/20 History iron) tablet torsemide 20 mg tablet 20 mg PO DAILY 03/26/20 07/31/20 07/31/20 History acetaminophen [Tylenol Extra 500 - 1,000 mg PO PRN 07/31/20 07/31/20 Unknown History Strength] zevxtfnkwphs-ogkevyze-ogqhiz 1 tab PO DAILY 07/31/20 07/31/20 07/31/20 History [Centrum Silver] omega-3 fatty acids [[place] 3] 1,000 mg PO DAILY 07/31/20 07/31/20 07/31/20 History turmeric root extract 500 mg PO DAILY 07/31/20 07/31/20 Unknown History levofloxacin See Rx Instructions .ROUTE .COMPLEX 08/02/20 08/02/20 08/01/20 History Allergies Allergy/AdvReac Type Severity Reaction Status Date / Time Penicillins Allergy Unknown Unknown Verified 07/31/20 13:27 PFSH Acute PFSH: Medical History CHF (congestive heart failure) CKD (chronic kidney disease) Diabetes GERD (gastroesophageal reflux disease) HTN (hypertension) Hypothyroidism PVC (premature ventricular contraction) Surgical History S/P cataract extraction S/P cervical spinal fusion S/P tonsillectomy Status post tubal ligation Family History Mother Hypertension Grandmother Hypertension MATERNAL Other Cancer Diabetes Social History Smoking and tobacco status: former smoker Household members: spouse Marital status: Vitals/I&O/Wt Last Vital Signs Pulse 78 08/02/20 15:30 Resp 18 08/02/20 15:30 BP 129/49 08/02/20 15:30 Pulse Ox 89 L 08/02/20 15:30 Weight last 48 hrs Weight 79.379 kg Physical Exam Const: COMMON NORMALS: no acute distress and patient oriented x3 GENERAL APPEARANCE: cooperative and comfortable HENMT: COMMON NORMALS: normocephalic HEAD & SCALP: normocephalic Eye: COMMON NORMALS: Equal, round and reactive pupils present, EOMs intact bilaterally and no papilledema GENERAL EYE: appearance normal, both eyes and all related structures PUPIL: Yes Equal, round and reactive pupils present DIRECT OPHTHALMOSCOPY: Yes no papilledema Neck/C-Spine: COMMON NORMALS: full ROM, no lymphadenopathy, no JVD and Thyroid normal THYROID: Thyroid normal Lymph: LYMPHATIC: no lymphadenopathy noted Resp: COMMON NORMALS: normal respiratory effort, No retractions, No use of accessory muscles and clear to auscultation bilaterally AUSCULTATION: clear to auscultation bilaterally Cardio: COMMON NORMALS: no JVD, regular rate, regular rhythm, S1 normal heart sound present, S2 normal heart sound present, No gallops present (Cardio), No clicks present (Cardio) and No murmurs present (Cardio) RATE: regular rate RHYTHM: regular rhythm HEART SOUNDS: S1 normal heart sound present and S2 normal heart sound present GI: COMMON NORMALS: Normal to inspection, nondistended, normoactive bowel sounds present, Soft to palpation, non-tender and No hepatosplenomegaly present PALPATION: Yes Soft to palpation and Yes No hepatosplenomegaly present Extremity: COMMON NORMALS: normal to inspection, full ROM and no pedal edema Neuro: COMMON NORMALS: patient oriented x3, CN's II-XII intact bilaterally, moves all extremities and no focal motor deficits Psych: COMMON NORMALS: cooperative ATTITUDE: Yes Withdrawn affect present ACTIVITY/MOTOR BEHAVIOR: Yes Avoids eye contact (attititude/behavior) SPEECH: Yes normal speech THOUGHT PROCESS: Normal thought process present and confused ATTENTION/CONCENTRATION: Yes attention grossly impaired and Yes concentration grossly impaired MEMORY/COGNITION: Yes memory grossly impaired and Yes cognition grossly intact Data : 08/02/20 14:32 08/02/20 14:32 A&P Assessment and plan (1) Acute respiratory failure with hypoxia: -Admit to viral ICU -Oxygen protocol -Advair, albuterol -Remdesivir, day 1 of 5 -Decadron day 1 of 5 -Levaquin 500 mg daily -Monitor respiratory status closely -Currently a full code Status: Acute (2) Encephalopathy acute: -Secondary to COVID-19 pneumonia Status: Acute (3) Pneumonia due to COVID-19 virus: Status: Acute (4) HTN (hypertension): Status: Acute (5) CHF (congestive heart failure): Has a history of diastolic heart failure, last echo on 12/08/2018 showed EF of 65%, no regional wall motion abnormalities -Did have a cardiac stress test on March 2019 which showed myocardial perfusion imaging revealing a small area of reversible defect in the apical inferior wall region, suggestive of ischemia in the distribution of the distal right coronary artery, EF of 72%, left ventricular wall motion analysis reveals mild hypokinesia of the left ventricular apex -No complaints of chest pain -We will order echocardiogram -Ordered for serial troponins Status: Acute (6) CKD (chronic kidney disease): Status: Acute (7) Diabetes: Moderate dose sliding scale Status: Acute (8) Hypothyroidism: Continue levothyroxine Status: Inactive (9) Acute on chronic anemia: Hemoglobin 9.9, no hemodynamic compromise, no complaints of bloody or black stools, continue to monitor as he is on anticoagulation for DVT Status: Acute (10) Hyponatremia: Likely hypovolemic hyponatremia, continue gentle IV hydration Status: Acute (11) Acute kidney injury superimposed on CKD: Creatinine 2.5, baseline 2-2.1, likely prerenal secondary to dehydration, continue gentle hydration, given heart failure history Status: Acute (12) Transaminitis: Secondary to COVID-19 Status: Acute Attestations Medical Necessity Statement*: Patient requires hospitalization, inpatient, greater than 2 midnights, for acute hypoxic respiratory failure, COVID-19 pneumonia, encephalopathy Coding Level of Care Code Acute Travel Information Center Supervisor for [facility] Diagnoses Acute respiratory failure with hypoxia J96.01 Encephalopathy acute G93.40 Pneumonia due to COVID-19 virus U07.1; J12.89 HTN (hypertension) I10 CHF (congestive heart failure) I50.9 CKD (chronic kidney disease) N18.9 Diabetes E11.9 Hypothyroidism E03.9 Acute on chronic anemia D64.9 Hyponatremia E87.1 Acute kidney injury superimposed on CKD N17.9; N18.9 Transaminitis R74.01
[2020-08-02] MEDS: dexamethasone 4 mg/mL INJ 10 MG IVP (17:25)
[2020-08-02 17:49] LABS: Lactate (Lactic Acid level) 1.1 mmol/L (0.5-2.2)
[2020-08-02] MEDS: levofloxacin-dextrose 5% 750 mg-150 mL Premix 100 MG IV (19:56)
[2020-08-02] MEDS: sodium chloride 0.9% 1,000 ML 999 ML IV (20:02)
--- NOTE | 2020-08-02 20:21 | ECG_ITS ---
[facility] ED Test Date: 2020-08-02 Pat Name: Luiza Cooper Department: Room: ICU19 Gender: Female Food Writer: : 1940 Requested By: Donta Amaro Order Number: [id number] Casper MD: Lory Egan M.D. Measurements Intervals [place] Rate: 80 P: RI: -1 QRS: 47 QRSD: 93 T: 51 QT: 385 QTc: 446 Interpretive Statements POSSIBLE SINUS RHYTHM WITH PAC'S NON SPECIFIC T WAVE ABNORMALITY Compared to ECG 08/02/2020 14:15:39 Sinus rhythm no longer present T-wave abnormality no longer present Electronically Signed On 08-08-2020 8:10:55 SCREWHEAD POLISHER by Lory Egan M.D. [email or web address].[facility]watch[facility] center barbourHLH ELECTRONICScleveland clinic med[facility].DocAS[employer]/store/[id number]
[2020-08-02] MEDS: enoxaparin 40 mg/0.4 mL Syringe SUBCUT (21:21)
[2020-08-02] MEDS: acetaminophen 325 mg Tablet 650 MG PO (21:22)
[2020-08-02] MEDS: sodium chloride 0.9% 1,000 ML 50 ML IV (21:36)
[2020-08-02 21:52] LABS: D Dimer 1.54 ug/mIFEU (0-0.59)
[2020-08-02 22:01] LABS: Troponin(5th) Baseline 60 ng/L (0-10)
[2020-08-02] MEDS: albuterol 8 gm MDI 1 PUFF INHALATION (22:03)
[2020-08-02] MEDS: doxazosin 1 mg Tablet 2 MG PO (22:13)
[2020-08-02] MEDS: ferrous sulfate EC 325 mg Tablet PO (22:14)
[2020-08-02 22:32] LABS: Glucose Point of Care 135 mg/dL (70-110)
--- NOTE | 2020-08-02 22:38 | ECG_ITS ---
[facility] ED Test Date: 2020-08-02 Pat Name: Luiza Cooper Department: Room: ICU19 Gender: Female Research Food Technologist: : 1940 Requested By: Donta Amaro Order Number: [id number] Casper MD: Lory Egan M.D. Measurements Intervals [place] Rate: 71 P: 45 [place]: 128 QRS: 51 QRSD: 97 T: 71 QT: 433 QTc: 473 Interpretive Statements SINUS RHYTHM WITH OCCASIONAL SUPRAVENTRICULAR PREMATURE COMPLEXES Compared to ECG 08/02/2020 21:25:45 Atrial fibrillation no longer present Electronically Signed On 08-07-2020 22:10:11 POSTAGE MACHINE OPERATOR by Lory Egan M.D. [email or web address] community hospital of hollywoodIon Healthcare/store/OM/[id number]
[2020-08-02 23:55] LABS: Lactic Sepsis W/Reflex 0.8 mmol/L (0.5-2.2); Troponin 5 2HR 57.75 ng/L (0-10)
[2020-08-03] VITALS (30 sets, daily range): BP systolic 122–164; BP diastolic 48–102; PULSE 66–85; RESP 11–29; TEMP 36.8–37.3; O2SAT 88–98; BMI 34.5
[2020-08-03 00:04] LABS: Troponin 5 2HR Delta -2.25 ABS# (0-10)
[2020-08-03 03:10] LABS: NT Pro B Type Natriuretic Pept 1540 pg/mL (0-450)
[2020-08-03] MEDS: albuterol 8 gm MDI 1 PUFF INHALATION ×5 (03:17→20:50)
[2020-08-03 03:43] LABS: Procalcitonin 0.94 ng/mL (0-0.5)
[2020-08-03 04:34] LABS: ABG PCO2 30.2 mmHg (35-45); ABG PH Result 7.38 (7.35-7.45); Arterial Blood Gas Hematocrit 29.7 % (37-47); Base Excess ABG -6.4 mmol/L (-2.0-2.0); Blood Gas Allen Test Pos; Blood Gas Operator Identificat JB; Blood Gas Sample Site Radial, right; Blood Gas Sample Type Arterial; HCO3 ABG 17.8 mmol/L (22-26); Oxygen Device NC; PO2 ABG 57.1 mmHg (80.0-100.0)
[2020-08-03 05:01] LABS: Basophils % 0.1 %; Hematocrit 28.2 % (37.0-47.0); Hemoglobin 9.5 g/dL (11.5-15.3); Lymphocytes # 0.7 10^3/uL (0.8-4.8); Lymphocytes % 7.2 %; Mean Corpuscular HGB Conc 33.7 g/dL (30.0-36.0); Mean Corpuscular Hemoglobin 29.6 pg (28.0-34.0); Mean Corpuscular Volume 87.9 fL (81-99); Mean Platelet Volume 10.8 fL (7.4-10.4); Monocytes # 0.2 10^3/uL (0.2-0.9); Monocytes % 2.2 %; Neutrophils # 8.27 10^3/uL (1.8-7.7); Nucleated Red Blood Cells % 0 %; Platelet Count 171 10^3/cmm (130-400); Red Blood Count 3.21 10^6/uL (4.1-5.3); Red Cell Distribution Width 11.9 % (12.1-15.1); White Blood Count 9.2 10^3/uL (4.0-10.0)
[2020-08-03 05:22] LABS: INR 1.08 (0.8-1.2)
[2020-08-03 05:40] LABS: Troponin 5 6HR 57.24 ng/L (0-10)
--- NOTE | 2020-08-03 06:00 | ECG_ITS ---
[facility] ED Test Date: 2020-08-03 Pat Name: Luiza Cooper Department: Room: ICU19 Gender: Female Kiln Car Repairer: : 1940 Requested By: Donta Amaro Order Number: [id number] Casper MD: Lory Egan M.D. Measurements Intervals [place] Rate: 71 P: 21 ID: [id number] QRS: 46 QRSD: 102 T: 58 QT: 441 QTc: 481 Interpretive Statements SINUS RHYTHM WITH FREQUENT SUPRAVENTRICULAR PREMATURE COMPLEXES ABNORMAL RHYTHM ECG Compared to ECG 08/02/2020 23:40:55 No significant changes Electronically Signed On 08-08-2020 8:10:08 EDGE WORKER by Lory Egan M.D. [email or web address] memorial community hospitalLiveDatamercy health fairfield hospitalAltavoz/store/OM/[id number]
[2020-08-03 06:01] LABS: Troponin 5 6HR Delta -2.76 ng/L (0-12)
--- NOTE | 2020-08-03 07:00 | XR_ITS ---
WS: [id number] Portable AP upright chest, 08/03/2020 Clinical Data: sob Comparison: Portable chest, 08/02/2020 Findings: The bilateral opacities remain unchanged. The heart is enlarged. No masses or effusions are seen. The aortic arch shows calcification and tortuosity. Monitor leads are on the chest wall. XR/XR chest 1V portable [id number] Impression: No change from yesterday's chest x-ray.
[2020-08-03 07:03] LABS: Estmated Average Glucose 203; Hemoglobin A1C 8.7 % (4.0-6.0)
[2020-08-03 07:25] LABS: Glucose Point of Care 211 mg/dL (70-110)
[2020-08-03] MEDS: dexamethasone 4 mg/mL INJ 6 MG IVP (07:32)
[2020-08-03 08:12] LABS: Alanine Aminotransferase 50 U/L (0-33); Albumin Level 3.2 g/dL (3.5-5.2); Alkaline Phosphatase 81 IU/L (35-105); Blood Urea Nitrogen 51 mg/dL (8-23); Calcium 8.4 mg/dL (8.5-10.5); Carbon Dioxide 13 mmol/L (22-29); Chloride 95 mmol/L (98-107); Globulin 3.2 g/dL (1.3-4.6); Glucose 123 mg/dL (65-115); Magnesium 1.6 mg/dL (1.7-2.3); Osmolality Calculated 287 mOsm/kg (285-295); Phosphorus 3.5 mg/dL (2.5-4.5); Sodium 131 mmol/L (136-145); Thyroid Stimulating Hormone 1.37 uIU/mL (0.27-4.20); Total Bilirubin 0.2 mg/dL (0.15-1.2); Total Protein 6.4 g/dL (6.6-8.7)
[2020-08-03 08:14] LABS: Anion Gap 26.8 (5-19); Aspartate Amino Transferase 149 U/L (0-32); Potassium 3.8 mmol/L (3.5-5.1)
--- NOTE | 2020-08-03 08:21 | PC.NURSE ---
in room am brk served at this time o2 at 5lnc more oriented at this time... taking po liquid no distress
[2020-08-03] MEDS: docusate sodium 100 mg Capsule PO (08:49)
[2020-08-03] MEDS: amlodipine 5 mg Tablet 10 MG PO (08:50)
[2020-08-03] MEDS: pantoprazole DR 40 mg Tablet PO (08:50)
[2020-08-03] MEDS: losartan 50 mg Tablet 100 MG PO (08:53)
[2020-08-03] MEDS: ferrous sulfate EC 325 mg Tablet PO ×2 (08:53→17:22)
[2020-08-03] MEDS: aspirin 81 mg EC Tablet PO (08:54)
[2020-08-03] MEDS: levothyroxine 150 mcg Tablet 75 MCG PO (08:55)
[2020-08-03] MEDS: metoprolol succinate ER (24 HR) 100 mg Tablet PO (08:55)
[2020-08-03] MEDS: omega-3 fatty acids 1,000 mg Capsule 1000 MG PO (08:55)
[2020-08-03] MEDS: atorvastatin 40 mg Tablet 20 MG PO (08:55)
[2020-08-03] MEDS: potassium chloride ER 20 mEq Tablet PO (08:56)
--- NOTE | 2020-08-03 10:36 | PC.NURSE ---
slow but answers questions appropriatly some difficulty swallowing larger pills. oriented x3
--- NOTE | 2020-08-03 13:15 | P.PN_ITS ---
Subjective Subjective: Interval history: Overall this morning patient is doing well, currently on 3 to 4 L nasal cannula, she is alert oriented x3, having intermittent episodes of confusion, but answering most questions appropriately, she has no particular complaints, Vitals/I&O/Wt Last Vital Signs Temp 99.1 F 08/03/20 04:00 Pulse 76 08/03/20 12:00 Resp 20 H 08/03/20 12:00 BP 155/64 08/03/20 12:00 Pulse Ox 92 08/03/20 12:00 08/02/20 08/03/20 08/03/20 22:59 06:59 14:59 Intake Total 250 / 250 200 / 450 250 / 250 Output Total 1250 / 1250 Balance 250 / 250 -1050 / -800 250 / 250 Weight last 48 hrs Weight 83.007 kg Weight 79.379 kg Physical Exam Const: COMMON NORMALS: no acute distress and patient oriented x3 HENMT: COMMON NORMALS: normocephalic HEAD & SCALP: normocephalic Neck/C-Spine: COMMON NORMALS: no JVD Resp: COMMON NORMALS: normal respiratory effort, No retractions, No use of accessory muscles and clear to auscultation bilaterally AUSCULTATION: clear to auscultation bilaterally Cardio: COMMON NORMALS: no JVD, regular rate, regular rhythm, S1 normal heart sound present and S2 normal heart sound present RATE: regular rate RHYTHM: regular rhythm HEART SOUNDS: S1 normal heart sound present and S2 normal heart sound present GI: COMMON NORMALS: Normal to inspection, nondistended, normoactive bowel sounds present, Soft to palpation, non-tender, No hepatosplenomegaly present, no masses and no bruits PALPATION: Yes Soft to palpation and Yes No hepatosplenomegaly present Extremity: COMMON NORMALS: capillary refill normal, no clubbing, cyanosis or edema, no calf tenderness and no pedal edema Neuro: COMMON NORMALS: patient oriented x3 Psych: COMMON NORMALS: mental status grossly normal Urinary Catheter Management^: 2-way Urethral: Cath Placed During This Visit: yes Reason for Continuing Indwelling Catheter: Accurate Measurement of Urinary Output in Critically Ill Patients Urinary Catheter Date of Insertion: 08/03/20 Urinary Catheter Time of Insertion: 00:00 Data : 08/03/20 04:00 08/03/20 04:00 Micro: Microbiology 08/02/20 00:05 Bacterial Antigens - Final Urine,Voided 08/02/20 17:18 Blood Culture - Preliminary Blood SPECIMEN COLLECTED 08/02/20 17:24 Blood Culture - Preliminary Blood SPECIMEN COLLECTED A&P Assessment and plan (1) Acute respiratory failure with hypoxia: -Admit to viral ICU -Oxygen protocol -Advair, albuterol -Remdesivir, day 2 of 5 -Decadron day 2 of 5 -Levaquin 500 mg daily -Monitor respiratory status closely -Currently a full code Status: Acute (2) Encephalopathy acute: -Secondary to COVID-19 pneumonia Status: Acute (3) Pneumonia due to COVID-19 virus: Status: Acute (4) HTN (hypertension): Status: Acute (5) CHF (congestive heart failure): Has a history of diastolic heart failure, last echo on 12/08/2018 showed EF of 65%, no regional wall motion abnormalities -Did have a cardiac stress test on March 2019 which showed myocardial perfusion imaging revealing a small area of reversible defect in the apical inferior wall region, suggestive of ischemia in the distribution of the distal right coronary artery, EF of 72%, left ventricular wall motion analysis reveals mild hypokinesia of the left ventricular apex -No complaints of chest pain -We will order echocardiogram -Ordered for serial troponins Status: Acute (6) CKD (chronic kidney disease): Status: Acute (7) Diabetes: Moderate dose sliding scale Status: Acute (8) Hypothyroidism: Continue levothyroxine Status: Inactive (9) Acute on chronic anemia: Hemoglobin 9.5, no hemodynamic compromise, no complaints of bloody or black stools, continue to monitor as he is on anticoagulation for DVT Status: Acute (10) Hyponatremia: Likely hypovolemic hyponatremia, currently sodium 131, continue to monitor Status: Acute (11) Acute kidney injury superimposed on CKD: Creatinine 2.5, baseline 2-2.1, likely prerenal secondary to dehydration, continue to monitor, given heart failure history Status: Acute (12) Transaminitis: Secondary to COVID-19 Status: Acute Additional A&P Information Plan for today is to continue remdesivir continue antibiotics, monitor respiratory status, monitor urine output Attestations Medical Necessity Statement*: Patient requires hospitalization due to acute respiratory failure, encephalopathy secondary to COVID-19 Coding Level of Care Code Acute Explosive Ordnance Disposal Manager for [facility] Diagnoses Acute respiratory failure with hypoxia J96.01 Encephalopathy acute G93.40 Pneumonia due to COVID-19 virus U07.1; J12.89 HTN (hypertension) I10 CHF (congestive heart failure) I50.9 CKD (chronic kidney disease) N18.9 Diabetes E11.9 Hypothyroidism E03.9 Acute on chronic anemia D64.9 Hyponatremia E87.1 Acute kidney injury superimposed on CKD N17.9; N18.9 Transaminitis R74.01
[2020-08-03] MEDS: sodium chloride 0.9% 1,000 ML 50 ML IV (15:48)
--- NOTE | 2020-08-03 16:43 | PC.NURSE ---
awake temp 99 diaphoretic linen changed and up in chair remains very weak but o2 is at 3lnc
[2020-08-03 17:01] LABS: Glucose Point of Care 229 mg/dL (70-110)
--- NOTE | 2020-08-03 18:50 | PC.NURSE ---
remains up in chair nausea with any movement
[2020-08-03 20:15] LABS: Glucose Point of Care 243 mg/dL (70-110)
[2020-08-03] MEDS: enoxaparin 40 mg/0.4 mL Syringe SUBCUT (20:17)
[2020-08-03] MEDS: doxazosin 1 mg Tablet 2 MG PO (20:17)
--- NOTE | 2020-08-03 20:21 | USCV_ITS ---
Luiza Cooper Age: 80 Gender: F : 1940 Exam Date: 08/03/2020 06:15 Ordering Phys: Donta Amaro MD Technologist: Yosi Martinez Exam Location: [facility] Indication: SOB COVID BP: 122 / 75 HR: 71 Rhythm: Sinus Technical Quality: Fair MEASUREMENTS (Male / Female) Normal Values 2D ECHO LV Diastolic Diameter PLAX 3.7 cm 4.2 - 5.9 / 3.9 - 5.3 cm LV Systolic Diameter PLAX 2.4 cm IVS Diastolic Thickness 0.9 cm 0.6 - 1.0 / 0.6 - 0.9 cm IVS Systolic Thickness 1.5 cm LVPW Diastolic Thickness 1.1 cm 0.6 - 1.0 / 0.6 - 0.9 cm LVPW Systolic Thickness 1.1 cm LVOT Diameter 2.0 cm LV Ejection Fraction 2D Teich 66.6 % LV Ejection Fraction MOD 2C 60.1 % LV Ejection Fraction 2C AL 59.2 % LA Diameter 3.8 cm LA Width 3.9 cm LA Height 5.8 cm RA Width 3.2 cm RA Height 5.0 cm M-MODE LV Diastolic Diameter MM 5.2 cm 4.2 - 5.9 / 3.9 - 5.3 cm LV Systolic Diameter MM 3.3 cm LV Ejection Fraction MM Teich 65.5 % IVS Diastolic Thickness MM 0.9 cm 0.6 - 1.0 / 0.6 - 0.9 cm IVS Systolic Thickness MM 1.3 cm LVPW Diastolic Thickness MM 1.0 cm 0.6 - 1.0 / 0.6 - 0.9 cm LVPW Systolic Thickness MM 1.9 cm RV Diastolic Diameter MM 1.3 cm Aortic Annulus Diameter 3.3 cm LA Ao Ratio MM 1.2 MV E Point Septal Separation 1.2 cm DOPPLER AV Peak Velocity 152.0 cm/s LVOT Peak Velocity 74.0 cm/s AV Area Cont Eq vti 1.6 cm squared AV Area Cont Eq pk 1.5 cm squared MV Area PHT 5.0 cm squared Mitral E to A Ratio 1.2 MV E' Velocity 65.6 cm/s Mitral E to MV E' Ratio 12.6 Mitral E to LV E' Lateral Ratio 14.2 Mitral E to LV E' Septal Ratio 11.4 TR Peak Velocity 181.0 cm/s TR Peak Gradient 13.1 mmHg PV Peak Velocity 125.0 cm/s FINDINGS Left Ventricle Normal left ventricular size and systolic function, EF 65 %. No regional wall motion abnormalities. Right Ventricle The right ventricle is normal in size and function. Right Atrium The right atrium is normal in size. Left Atrium Mildly increased left atrial size. Mitral Valve Trace mitral valve regurgitation. Aortic Valve Thickened aortic valve. Tricuspid Valve Trace tricuspid valve regurgitation. Pulmonic Valve Pulmonic valve not well visualized. Normal pulmonary artery peak systolic pressure Pericardium Normal pericardium without effusion. Aorta Normal ascending aorta dimension. CONCLUSIONS Normal left ventricular size and systolic function, EF 65 %. No regional wall motion abnormalities. Mildly increased left atrial size. Trace mitral valve regurgitation. Thickened aortic valve. Trace tricuspid valve regurgitation. There is no pericardial effusion. There are no intracardiac masses. Compared to the previous study from 12/15/2018, there may not be a significant change. Dr Liliane Almendarez MD FACC (Electronically Signed) Final Date: 03 August 2020 13:56 S
[2020-08-04] VITALS (33 sets, daily range): BP systolic 84–160; BP diastolic 41–100; PULSE 74–160; RESP 11–31; TEMP 36.6–37.5; O2SAT 88–98
[2020-08-04] MEDS: albuterol 8 gm MDI 1 PUFF INHALATION ×2 (00:35→04:50)
[2020-08-04 04:41] LABS: ABG PCO2 28.6 mmHg (35-45); ABG PH Result 7.37 (7.35-7.45); Arterial Blood Gas Hematocrit 31.8 % (37-47); Base Excess ABG -7.5 mmol/L (-2.0-2.0); Blood Gas Sample Type Arterial; HCO3 ABG 16.6 mmol/L (22-26); PO2 ABG 57.5 mmHg (80.0-100.0)
[2020-08-04 04:42] LABS: Blood Gas Operator Identificat HARKR; Blood Gas Sample Site Brachial, right; Oxygen Device NC
[2020-08-04] MEDS: metoprolol succinate ER (24 HR) 100 mg Tablet PO (05:18)
--- NOTE | 2020-08-04 06:00 | ECG_ITS ---
[facility] ED Test Date: 2020-08-04 Pat Name: Luiza Cooper Department: Room: ICU19 Gender: Female Sleeve Machine Tender: : 1940 Requested By: Donta Amaro Order Number: [id number] Casper MD: Lory Egan M.D. Measurements Intervals [place] Rate: 119 P: LA: -1 QRS: 66 QRSD: 91 T: 52 QT: 312 QTc: 440 Interpretive Statements ATRIAL FIBRILLATION WITH RAPID VENTRICULAR RESPONSE ABNORMAL RHYTHM ECG Compared to ECG 08/03/2020 05:06:09 Sinus rhythm no longer present Electronically Signed On 08-08-2020 8:09:54 CASING SEWER by Lory Egan M.D. https://[employer].Poke'n Callnoxubee general hospitalC8 Scienceswadsworth-rittman hospitalMendor/store/OM/[id number]
[2020-08-04 06:13] LABS: Basophils % 0.1 %; Hematocrit 26.1 % (37.0-47.0); Hemoglobin 8.7 g/dL (11.5-15.3); Lymphocytes # 0.8 10^3/uL (0.8-4.8); Lymphocytes % 7.2 %; Mean Corpuscular HGB Conc 33.3 g/dL (30.0-36.0); Mean Corpuscular Hemoglobin 29.7 pg (28.0-34.0); Mean Corpuscular Volume 89.1 fL (81-99); Mean Platelet Volume 11.1 fL (7.4-10.4); Monocytes # 0.4 10^3/uL (0.2-0.9); Monocytes % 3.8 %; Neutrophils # 9.16 10^3/uL (1.8-7.7); Neutrophils % 88.1 %; Nucleated Red Blood Cells % 0 %; Platelet Count 170 10^3/cmm (130-400); Red Blood Count 2.93 10^6/uL (4.1-5.3); Red Cell Distribution Width 12.1 % (12.1-15.1); White Blood Count 10.4 10^3/uL (4.0-10.0)
[2020-08-04 06:58] LABS: INR 1.19 (0.8-1.2)
[2020-08-04 06:59] LABS: Alanine Aminotransferase 51 U/L (0-33); Albumin Level 2.5 g/dL (3.5-5.2); Alkaline Phosphatase 61 IU/L (35-105); Anion Gap 17.6 (5-19); Aspartate Amino Transferase 100 U/L (0-32); Blood Urea Nitrogen 54 mg/dL (8-23); C Reactive Protein 63.6 mg/L (0.0-4.9); Calcium 6.6 mg/dL (8.5-10.5); Carbon Dioxide 14 mmol/L (22-29); Chloride 106 mmol/L (98-107); Globulin 1.9 g/dL (1.3-4.6); Glucose 239 mg/dL (65-115); Magnesium 1.6 mg/dL (1.7-2.3); Osmolality Calculated 301 mOsm/kg (285-295); Phosphorus 4.4 mg/dL (2.5-4.5); Potassium 3.6 mmol/L (3.5-5.1); Sodium 134 mmol/L (136-145); Total Bilirubin 0.2 mg/dL (0.15-1.2)
[2020-08-04 07:10] LABS: Glucose Point of Care 332 mg/dL (70-110)
[2020-08-04] MEDS: dexamethasone 4 mg/mL INJ 6 MG IVP (07:58)
[2020-08-04] MEDS: amiodarone 200 mg Tablet PO (07:58)
[2020-08-04 08:01] LABS: Total Protein 4.4 g/dL (6.6-8.7)
[2020-08-04] MEDS: ondansetron 2 mg/ML SDV 2 mL 4 MG IVP ×2 (08:12→15:45)
[2020-08-04 09:31] LABS: Partial Thromboplastin Time 36.4 SECONDS (23.9-36.7)
[2020-08-04] MEDS: atorvastatin 40 mg Tablet 20 MG PO (10:26)
[2020-08-04] MEDS: aspirin 81 mg EC Tablet PO (10:26)
[2020-08-04] MEDS: levothyroxine 150 mcg Tablet 75 MCG PO (10:27)
[2020-08-04] MEDS: ferrous sulfate EC 325 mg Tablet PO ×2 (10:27→18:18)
[2020-08-04] MEDS: docusate sodium 100 mg Capsule PO (10:27)
[2020-08-04] MEDS: potassium chloride ER 20 mEq Tablet PO (10:28)
[2020-08-04] MEDS: omega-3 fatty acids 1,000 mg Capsule 1000 MG PO (10:28)
[2020-08-04] MEDS: pantoprazole DR 40 mg Tablet PO (10:28)
[2020-08-04 11:13] LABS: Glucose Point of Care 242 mg/dL (70-110)
[2020-08-04] MEDS: magnesium sulfate premix 2 GM/50 ML PIGGYBACK IV (11:23)
[2020-08-04] MEDS: heparin drip 25,000 UNIT/500 ML PREMIX 23 UNIT IV (11:25)
[2020-08-04] MEDS: dilTIAZem 30 mg Tablet PO ×3 (12:19→23:53)
[2020-08-04 13:14] LABS: Basophils % 0.1 %; Hematocrit 28.9 % (37.0-47.0); Hemoglobin 9.9 g/dL (11.5-15.3); Lymphocytes # 0.7 10^3/uL (0.8-4.8); Lymphocytes % 5.1 %; Mean Corpuscular HGB Conc 34.3 g/dL (30.0-36.0); Mean Corpuscular Hemoglobin 30.2 pg (28.0-34.0); Mean Corpuscular Volume 88.1 fL (81-99); Mean Platelet Volume 10.9 fL (7.4-10.4); Monocytes # 0.3 10^3/uL (0.2-0.9); Neutrophils % 92.2 %; Nucleated Red Blood Cells % 0 %; Platelet Count 222 10^3/cmm (130-400); Red Blood Count 3.28 10^6/uL (4.1-5.3); Red Cell Distribution Width 12.4 % (12.1-15.1); White Blood Count 13.6 10^3/uL (4.0-10.0)
[2020-08-04] MEDS: levofloxacin-dextrose 5 % 500 MG/100 ML PREMIX 100 MG IV (15:20)
--- NOTE | 2020-08-04 17:08 | PM.PN ---
Subjective Subjective: Interval history: This morning patient was examined, she is a bit frustrated as she developed atrial fibrillation overnight, she is concerned that she has just 1 more problem, is on 5 L, overall she states that she is feeling better, no nausea, no vomiting, no chest pain, some shortness of breath with exertion, continues to have a poor appetite, Vitals/I&O/Wt Last Vital Signs Temp 98.0 F 08/04/20 15:00 Pulse 96 08/04/20 16:00 Resp 19 H 08/04/20 16:00 BP 115/67 08/04/20 16:00 Pulse Ox 90 08/04/20 16:00 08/04/20 08/04/20 08/04/20 06:59 14:59 22:59 Intake Total 100 / 1960 600 / 600 Output Total 300 / 800 200 / 200 Balance -200 / 1160 400 / 400 Weight last 48 hrs Weight 83.007 kg Physical Exam Const: COMMON NORMALS: no acute distress and patient oriented x3 HENMT: COMMON NORMALS: normocephalic HEAD & SCALP: normocephalic Neck/C-Spine: COMMON NORMALS: no JVD Resp: COMMON NORMALS: normal respiratory effort, No retractions and No use of accessory muscles AUSCULTATION: wheezes Cardio: COMMON NORMALS: no JVD, S1 normal heart sound present and S2 normal heart sound present RATE: tachycardic RHYTHM: abnormal rhythm HEART SOUNDS: S1 normal heart sound present and S2 normal heart sound present GI: COMMON NORMALS: Normal to inspection, nondistended, normoactive bowel sounds present, Soft to palpation, non-tender, No hepatosplenomegaly present, no masses and no bruits PALPATION: Yes Soft to palpation and Yes No hepatosplenomegaly present Extremity: COMMON NORMALS: capillary refill normal, no clubbing, cyanosis or edema, no calf tenderness and no pedal edema Neuro: COMMON NORMALS: patient oriented x3 Psych: COMMON NORMALS: mental status grossly normal Urinary Catheter Management^: 2-way Urethral: Cath Placed During This Visit: yes Reason for Continuing Indwelling Catheter: Accurate Measurement of Urinary Output in Critically Ill Patients Urinary Catheter Date of Insertion: 08/03/20 Urinary Catheter Time of Insertion: 00:00 Data : 08/04/20 13:00 08/04/20 04:00 Micro: Microbiology 08/02/20 14:23 Urine Culture - Preliminary Urine Catheterized Enterococcus species 08/02/20 17:18 Blood Culture - Preliminary Blood NEGATIVE TO DATE 08/02/20 17:24 Blood Culture - Preliminary Blood NEGATIVE TO DATE A&P Assessment and plan (1) Acute respiratory failure with hypoxia: -Admit to viral ICU -Oxygen protocol -Advair, albuterol -Remdesivir, day 3 of 5 -Decadron day 3 of 5 -Levaquin 500 mg daily -Monitor respiratory status closely -Currently a full code Status: Acute (2) Encephalopathy acute: -Secondary to COVID-19 pneumonia, resolved Status: Acute (3) Pneumonia due to COVID-19 virus: Status: Acute (4) HTN (hypertension): Status: Acute (5) CHF (congestive heart failure): Has a history of diastolic heart failure, last echo on 12/08/2018 showed EF of 65%, no regional wall motion abnormalities -Did have a cardiac stress test on March 2019 which showed myocardial perfusion imaging revealing a small area of reversible defect in the apical inferior wall region, suggestive of ischemia in the distribution of the distal right coronary artery, EF of 72%, left ventricular wall motion analysis reveals mild hypokinesia of the left ventricular apex -No complaints of chest pain -Echocardiogram shows EF of 65%, no regional wall motion abnormalities Status: Acute (6) CKD (chronic kidney disease): Status: Acute (7) Diabetes: Moderate dose sliding scale Start Levemir 15 units twice daily Status: Acute (8) Hypothyroidism: Continue levothyroxine Status: Inactive (9) Acute on chronic anemia: Hemoglobin 8.7, no hemodynamic compromise, no complaints of bloody or black stools, continue to monitor as he is on anticoagulation for DVT Status: Acute (10) Hyponatremia: Likely hypovolemic hyponatremia, currently sodium 134, continue to monitor Status: Acute (11) Acute kidney injury superimposed on CKD: Creatinine 2.2, baseline 2-2.1, likely prerenal secondary to dehydration, continue to monitor, given heart failure history Status: Acute (12) Transaminitis: Secondary to COVID-19 Status: Acute (13) Atrial fibrillation with RVR: -Is on metoprolol 100 mg daily, continue -Did not respond to amiodarone 200 mg, I am worried about QTC prolongation given remdesivir, hold off on further amnio -Started her on Cardizem 30 every 6 hours, seems to do the trick, heart rates in the 90s, A. fib -Start heparin drip, given concerns for anemia, 8.7, monitor hemoglobin, monitor for blood vessels, monitor hemodynamics -Echo shows EF of 65%, no regional wall motion abnormalities Status: Acute Additional A&P Information Plan for today get A. fib with RVR under control, with Cardizem, heparin drip, get up out of bed, monitor hemoglobin, de-escalate oxygen therapy Attestations Medical Necessity Statement*: Patient requires hospitalization, for acute respiratory failure with hypoxia secondary to COVID-19, now A. fib with RVR Coding Level of Care Code Acute Circuit Board Inspector for [facility] Diagnoses Acute respiratory failure with hypoxia J96.01 Encephalopathy acute G93.40 Pneumonia due to COVID-19 virus U07.1; J12.89 HTN (hypertension) I10 CHF (congestive heart failure) I50.9 CKD (chronic kidney disease) N18.9 Diabetes E11.9 Hypothyroidism E03.9 Acute on chronic anemia D64.9 Hyponatremia E87.1 Acute kidney injury superimposed on CKD N17.9; N18.9 Transaminitis R74.01 Atrial fibrillation with RVR I48.91
[2020-08-04 17:14] LABS: Glucose Point of Care 146 mg/dL (70-110)
[2020-08-04 18:08] LABS: Partial Thromboplastin Time 38.5 SECONDS (23.9-36.7)
--- NOTE | 2020-08-04 20:34 | ECG_ITS ---
[facility] ED Test Date: 2020-08-04 Pat Name: Luiza Cooper Department: Room: ICU19 Gender: Female Office Services Representative: : 1940 Requested By: Donta Amaro Order Number: [id number] Casper MD: Lory Egan M.D. Measurements Intervals [place] Rate: 89 P: [place]: -1 QRS: 85 QRSD: 92 T: 62 QT: 371 QTc: 453 Interpretive Statements ATRIAL FIBRILLATION ABNORMAL RHYTHM ECG Compared to ECG 08/04/2020 05:10:59 No significant changes Electronically Signed On 08-08-2020 8:04:35 ANALOG DESIGN ENGINEER by Lory Egan M.D. [email or web address] [email or web address] hospitalKareocleveland clinic foundation.[place]/store/OM/[id number]
[2020-08-04 23:44] LABS: Glucose Point of Care 224 mg/dL (70-110)
[2020-08-05] VITALS (32 sets, daily range): BP systolic 82–152; BP diastolic 46–97; PULSE 74–119; RESP 11–27; TEMP 36.6–37; O2SAT 90–98
[2020-08-05] MEDS: ondansetron 2 mg/ML SDV 2 mL 4 MG IVP ×4 (00:14→15:55)
[2020-08-05 00:56] LABS: Partial Thromboplastin Time 45.6 SECONDS (23.9-36.7)
[2020-08-05] MEDS: albuterol 8 gm MDI 1 PUFF INHALATION ×5 (03:02→20:14)
[2020-08-05 04:14] LABS: Basophils % 0.1 %; Hematocrit 29.8 % (37.0-47.0); Hemoglobin 9.7 g/dL (11.5-15.3); Lymphocytes # 0.9 10^3/uL (0.8-4.8); Lymphocytes % 6.1 %; Mean Corpuscular HGB Conc 32.6 g/dL (30.0-36.0); Mean Corpuscular Hemoglobin 29.5 pg (28.0-34.0); Mean Corpuscular Volume 90.6 fL (81-99); Mean Platelet Volume 11.2 fL (7.4-10.4); Monocytes # 0.6 10^3/uL (0.2-0.9); Neutrophils # 12.49 10^3/uL (1.8-7.7); Neutrophils % 88.9 %; Nucleated Red Blood Cells % 0 %; Platelet Count 234 10^3/cmm (130-400); Red Blood Count 3.29 10^6/uL (4.1-5.3); Red Cell Distribution Width 12.4 % (12.1-15.1); White Blood Count 14.1 10^3/uL (4.0-10.0)
[2020-08-05 04:35] LABS: Alanine Aminotransferase 56 U/L (0-33); Albumin Level 2.5 g/dL (3.5-5.2); Alkaline Phosphatase 69 IU/L (35-105); Anion Gap 20.4 (5-19); Aspartate Amino Transferase 73 U/L (0-32); Blood Urea Nitrogen 75 mg/dL (8-23); C Reactive Protein 45.7 mg/L (0.0-4.9); Calcium 8.1 mg/dL (8.5-10.5); Carbon Dioxide 15 mmol/L (22-29); Chloride 100 mmol/L (98-107); Globulin 2.9 g/dL (1.3-4.6); Glucose 215 mg/dL (65-115); Magnesium 2.4 mg/dL (1.7-2.3); Osmolality Calculated 301 mOsm/kg (285-295); Phosphorus 4.6 mg/dL (2.5-4.5); Potassium 4.4 mmol/L (3.5-5.1); Sodium 131 mmol/L (136-145); Total Bilirubin 0.2 mg/dL (0.15-1.2); Total Protein 5.4 g/dL (6.6-8.7)
[2020-08-05] MEDS: heparin drip 25,000 UNIT/500 ML PREMIX 28 UNIT IV (04:52)
[2020-08-05] MEDS: dilTIAZem 30 mg Tablet PO ×3 (05:30→17:07)
--- NOTE | 2020-08-05 06:00 | ECG_ITS ---
[facility] ED Test Date: 2020-08-05 Pat Name: Luiza Cooper Department: Room: ICU19 Gender: Female Guest Services Associate: : 1940 Requested By: Donta Amaro Order Number: [id number] Casper MD: Lory Egan M.D. Measurements Intervals [place] Rate: 102 P: SC: -1 QRS: 55 QRSD: 100 T: 58 QT: 356 QTc: 464 Interpretive Statements ATRIAL FIBRILLATION WITH RAPID VENTRICULAR RESPONSE ABNORMAL RHYTHM ECG Compared to ECG 08/04/2020 20:44:58 No significant changes Electronically Signed On 08-08-2020 8:07:32 TOWEL FOLDER by Lory Egan M.D. [email or web address] specialty hospital of meridianMediaQ,Incvan wert county hospitalChina Broad Media/store/OM/[id number]/ecg/[id number]
--- NOTE | 2020-08-05 07:00 | XRR_ITS ---
PROCEDURE INFORMATION: Exam: XR Chest, 1 View Exam date and time: 08/05/2020 4:01 AM Age: 80 years old Clinical indication: Condition or disease; Other: Covid; Additional info: SOB TECHNIQUE: Imaging protocol: XR of the chest Views: 1 view. COMPARISON: CR XR chest 1V portable [id number] 08/03/2020 4:32 AM FINDINGS: Lungs: Unremarkable. No consolidation. Pleural space: Unremarkable. No pleural effusion. No pneumothorax. Heart/Mediastinum: Unremarkable. No cardiomegaly. Bones/joints: Unremarkable. Other findings: There are bilateral ground-glass opacities present, left slightly worse than right. There appears to be a slight improvement in aeration compared with 08/03/2020 however. XR/XR chest 1V portable [id number] IMPRESSION: Bilateral ground-glass opacities are again seen but appears slightly improved compared with 08/03/2020.
--- NOTE | 2020-08-05 07:43 | PC.NURSE ---
report received from PhilippeRN Prior to nurse leaving, attempted to draw PTT on patient. philippe had no success. after shift report this nurse attempted to stick the patient twice. attempted to draw out of right AC IV. no success at drawing from IV or sticks. nurse called lab and informed Ashley at 0735 that lab would need to collect specimen.
--- NOTE | 2020-08-05 07:57 | USR_ITS ---
PROCEDURE INFORMATION: Exam: US Retroperitoneal; Complete; Kidneys and Bladder Exam date and time: 08/05/2020 7:59 AM Age: 80 years old Clinical indication: Abnormal findings; Abnormal lab test; Abnormal kidney function lab tests; Additional info: Chandana TECHNIQUE: Imaging protocol: Real-time ultrasound of the retroperitoneum with image documentation. Complete exam focused on the kidneys and bladder. COMPARISON: US Renal Kidney Structu* [id number] 06/15/2017 7:56 AM FINDINGS: Right kidney: Right kidney measures 9.7 cm in length. Thinning of renal parenchyma. No hydronephrosis. Left kidney: Nonvisualization of the left kidney. Aorta: Obscuration of the distal abdominal aorta by bowel gas. Urinary bladder: Nonvisualization of the decompressed bladder which contains a Corral catheter. US/US renal BI* [id number] IMPRESSION: 1. Technically limited examination with nonvisualization of the left kidney and bladder. 2. No acute sonographic abnormality in the visualized right kidney.
[2020-08-05 08:18] LABS: Glucose Point of Care 229 mg/dL (70-110)
[2020-08-05] MEDS: atorvastatin 40 mg Tablet 20 MG PO (08:59)
[2020-08-05] MEDS: potassium chloride ER 10 mEq Tablet 20 MEQ PO (08:59)
[2020-08-05] MEDS: pantoprazole DR 40 mg Tablet PO (08:59)
[2020-08-05] MEDS: docusate sodium 100 mg Capsule PO (08:59)
[2020-08-05] MEDS: aspirin 81 mg EC Tablet PO (08:59)
[2020-08-05] MEDS: lactated ringers 1,000 ML 75 ML IV (09:00)
[2020-08-05] MEDS: dexamethasone 4 mg/mL INJ 6 MG IVP (09:00)
[2020-08-05] MEDS: levothyroxine 150 mcg Tablet 75 MCG PO (09:01)
[2020-08-05] MEDS: ferrous sulfate EC 325 mg Tablet PO ×2 (09:01→17:07)
[2020-08-05] MEDS: metoprolol succinate ER (24 HR) 100 mg Tablet PO (09:02)
[2020-08-05] MEDS: omega-3 fatty acids 1,000 mg Capsule 1000 MG PO (09:02)
--- NOTE | 2020-08-05 09:32 | PC.SOCIAL ---
IMM Update Pg. 2 of [facility] updated and reviewed with patients , Wang Cooper, over the phone, who verbalized understanding.
[2020-08-05 09:35] LABS: Partial Thromboplastin Time > 250.0 SECONDS (23.9-36.7)
--- NOTE | 2020-08-05 09:54 | PM.CONSULT ---
Providers/Reason For Consult Consulting Physican/Specialty*: bernardino cuevas md / telenephrology Reason for Consult*: wilmer, ckd stage 4, hyponatremia Attending Physician: Donta Amaro MD Primary Care Provider: Mann Garduno MD History of Present Illness History of Present Illness Luiza Cooper is a 80 year old female w/ obesity, IDDM , htn, hyperlipidemia, hypothyroidism. CKD stage 4- baseline cr 1.8- 2 mg/dl. Pt was admitted w/ COVID-19 pna on 08-02-20. treated w. advair, rmdesivir, decadron, and levaquin. pts baseline cr is 1.8- 2. her blood tests were reviewed, 07-31-20 w/ cr 2.4, 08/03/20- cr 2.5, 08/04- cr 2.2, today cr 3 and renal called Review of Systems General: Reports: 10 or more systems reviewed and unremarkable except in HPI and below Narrative: weak, fevers, poor appetite, headaches. +SOB on o2, no palps. no diarrhea. no difficulty urinating. noCP, MS improving Meds/Allergies Home Medications and Allergies Home Medications Medication Instructions Recorded Confirmed Last Taken Type aspirin 81 mg tablet,delayed 81 mg PO DAILY 03/15/20 08/02/20 07/31/20 History release atorvastatin 10 mg tablet 5 mg PO DAILY tab 03/15/20 08/02/20 07/30/20 History clonidine HCl 0.1 mg tablet 0.1 mg PO PRN PRN tab 03/15/20 08/02/20 Unknown History doxazosin 2 mg tablet 2 mg PO BEDTIME 03/15/20 08/02/20 07/30/20 History insulin glargine 100 unit/mL 30 unit SUBCUT BEDTIME ml 03/15/20 08/02/20 07/30/20 History subcutaneous solution 25 units insulin lispro 100 unit/mL See Rx Instructions .ROUTE .COMPLEX 03/15/20 08/02/20 07/31/20 History subcutaneous solution 5 units levothyroxine 75 mcg tablet 75 mcg PO DAILY 03/15/20 08/02/20 07/31/20 History losartan 100 mg tablet 100 mg PO DAILY 03/15/20 08/02/20 07/30/20 History metoprolol succinate 100 mg 100 mg PO DAILY 03/15/20 08/02/20 08/02/20 History tablet,extended release 24 hr omeprazole 20 mg capsule,delayed 20 mg PO DAILY 03/15/20 08/02/20 08/02/20 History release potassium chloride 10 mEq 20 meq PO DAILY tab 03/15/20 08/02/20 Unknown History tablet,extended release(part/cryst) amlodipine 5 mg tablet 10 mg PO DAILY tab 03/26/20 08/02/20 07/31/20 History coenzyme Q10 100 mg capsule 100 mg PO DAILY 03/26/20 08/02/20 07/30/20 History docusate sodium 100 mg capsule 100 mg PO DAILY 03/26/20 08/02/20 Unknown History ferrous sulfate 325 mg (65 mg 325 mg PO BID 03/26/20 08/02/20 07/31/20 History iron) tablet torsemide 20 mg tablet 20 mg PO DAILY 03/26/20 08/02/20 07/31/20 History acetaminophen [Tylenol Extra 500 - 1,000 mg PO PRN 07/31/20 08/02/20 Unknown History Strength] pqjzuzfwsnsk-lllkddsj-aabbpi 1 tab PO DAILY 07/31/20 08/02/20 07/31/20 History [Centrum Silver] omega-3 fatty acids [[place] 3] 1,000 mg PO DAILY 07/31/20 08/02/20 07/31/20 History turmeric root extract 500 mg PO DAILY 07/31/20 08/02/20 Unknown History levofloxacin See Rx Instructions .ROUTE .COMPLEX 08/02/20 08/02/20 08/01/20 History Allergies Allergy/AdvReac Type Severity Reaction Status Date / Time Penicillins Allergy Unknown Unknown Verified 07/31/20 13:27 Current Medications Current Medications Generic Name Dose Route Start Last Admin Trade Name Freq PRN Reason Stop Dose Admin Acetaminophen 650 mg 08/02/20 20:21 08/02/20 21:22 Acetaminophen 325 Mg Tablet PO 650 mg Q6H PRN Administration Mild/Mod Pain Or Temp >/= 101 Albuterol Sulfate 1 puff 08/02/20 20:21 08/05/20 08:32 Albuterol 8 Gm Mdi INHALATION 1 puff Q4H.RESPIRATORY NIKO Administration Aspirin 81 mg 08/03/20 09:00 08/05/20 08:59 Aspirin 81 Mg Ec Tablet PO 81 mg DAILY NIOK Administration Atorvastatin Calcium 20 mg 08/03/20 09:00 08/05/20 08:59 Atorvastatin 40 Mg Tablet PO 20 mg DAILY NIKO Administration Dexamethasone 6 mg 08/03/20 08:00 08/05/20 09:00 Dexamethasone 4 Mg/Ml Inj IVP 6 mg Q24H NIKO Administration Diltiazem HCl 30 mg 08/04/20 12:00 08/05/20 05:30 Diltiazem 30 Mg Tablet PO 30 mg Q6H NIKO Administration Docusate Sodium 100 mg 08/03/20 09:00 08/05/20 08:59 Docusate Sodium 100 Mg Capsule PO 100 mg DAILY NIKO Administration Doxazosin Mesylate 2 mg 08/02/20 21:00 08/04/20 22:59 Doxazosin 1 Mg Tablet PO Not Given BEDTIME [facility] Ferrous Sulfate 325 mg 08/02/20 20:21 08/05/20 09:01 Ferrous Sulfate Ec 325 Mg Tablet PO 325 mg BID NIKO Administration Levofloxacin/Dextrose 500 mg in 100 mls @ 100 mls/hr 08/04/20 16:00 08/04/20 15:20 Levaquin-D5w IV 100 mls/hr Q48H NIKO Administration Heparin Sodium/Sodium Chloride 25,000 unit in 500 mls @ 0 mls/hr 08/04/20 07:30 08/05/20 04:52 Heparin Drip IV 16.87 unit/kg/hr .Q0M NIKO 28 mls/hr Administration Protocol Per Protocol Lactated Ringer's 1,000 mls @ 75 mls/hr 08/05/20 08:00 08/05/20 09:00 Lactated Ringers IV 75 mls/hr .[id number] NIKO Administration Insulin Aspart 0 unit 08/02/20 20:21 08/05/20 09:00 Insulin Aspart 100 Unit/1 Ml SUBCUT 8 unit TIDWM [facility] Administration Protocol Insulin Detemir 15 unit 08/04/20 11:00 08/04/20 23:53 Insulin Detemir 100 Units/1 Ml SUBCUT 15 unit Q12H NIKO Administration Levothyroxine Sodium 75 mcg 08/03/20 09:00 08/05/20 09:01 Levothyroxine 150 Mcg Tablet PO 75 mcg DAILY NIKO Administration Metoprolol Succinate 100 mg 08/03/20 09:00 08/05/20 09:02 Metoprolol Succinate Er (24 Hr) 100 Mg Tablet PO 100 mg DAILY NIKO Administration Non-Formulary Medication 100 mg 08/03/20 09:00 08/05/20 09:03 Coenzyme Q10 [Coq-10] PO Not Given DAILY NIKO Non-Formulary Medication 1 tab 08/03/20 09:00 08/05/20 09:03 Cocfczebvmos-Ukvhkfzp-Uctcpq PO Not Given DAILY NIKO Non-Formulary Medication 500 mg 08/03/20 09:00 08/05/20 09:02 Turmeric Root Extract PO Not Given DAILY NIKO Pzmmw-6-Yuin Ethyl Esters 1,000 mg 08/03/20 09:00 08/05/20 09:02 [place]-3 Fatty Acids 1,000 Mg Capsule PO 1,000 mg DAILY NIKO Administration Ondansetron HCl 4 mg 08/02/20 20:21 08/05/20 09:31 Ondansetron 2 Mg/Ml Sdv 2 Ml IVP 4 mg Q8H PRN Administration vomiting, or N/V if npo Ondansetron HCl 4 mg 08/05/20 05:22 08/05/20 05:29 Ondansetron 2 Mg/Ml Sdv 2 Ml IVP 4 mg Q4H PRN Administration NAUSEA AND VOMITING Pantoprazole Sodium 40 mg 08/03/20 09:00 08/05/20 08:[address] 40 Mg Tablet PO 40 mg DAILY NIKO Administration Potassium Chloride 20 meq 08/05/20 09:00 08/05/20 08:59 Potassium Chloride Er 10 Meq Tablet PO 20 meq DAILY NIKO Administration Fluticasone/Salmeterol 1 puff 08/02/20 20:21 08/05/20 08:31 Fluticasone-Salmeterol 250-50 Diskus INHALATION 1 puff BID.RESPIRATORY NIKO Administration PFSH Acute PFSH: Medical History (Updated 08/04/20 @ 17:09 by Donta Amaro MD) CHF (congestive heart failure) CKD (chronic kidney disease) Diabetes GERD (gastroesophageal reflux disease) HTN (hypertension) Hypothyroidism PVC (premature ventricular contraction) Surgical History S/P cataract extraction S/P cervical spinal fusion S/P tonsillectomy Status post tubal ligation Family History Mother Hypertension Grandmother Hypertension MATERNAL Other Cancer Diabetes Social History Smoking and tobacco status: former smoker Household members: spouse Marital status: Vitals/I&O/Wt Last Vital Signs Temp 98.6 F 08/05/20 04:00 Pulse 93 08/05/20 08:36 Resp 20 H 08/05/20 08:31 BP 126/64 08/05/20 08:00 Pulse Ox 94 08/05/20 08:31 08/04/20 08/05/20 08/05/20 22:59 06:59 14:59 Intake Total 350 / 950 518.184 / 1468.184 Output Total 200 / 400 200 / 600 Balance 150 / 550 318.184 / 868.184 Physical Exam Narrative: EXAM NARRATIVE: exam by RN- telemedicine visit sob in bed, nc 02 heent- nc/at, eomi, anocteric neck supple lung wheezes, ronchi heart irreg irreg abd soft, nt, ND, +BS ext no edema neuro- a,a, o x 3 moves all ext skin- no rash pulses + b/l Urinary Catheter Management^: 2-way Urethral: Cath Placed During This Visit: yes Reason for Continuing Indwelling Catheter: Accurate Measurement of Urinary Output in Critically Ill Patients Urinary Catheter Date of Insertion: 08/03/20 Urinary Catheter Time of Insertion: 00:00 Data Micro: Micro: Microbiology 08/02/20 14:23 Urine Culture - Pr eliminary Urine Catheterize d Enterococcus sp ecies A&P Additional A&P Information 80 yr old female hypothyroidism, iddm, htn, hyperlipidemia, obesity, ckd stage 4. Pt here w/ CVOD-19. developed WILMER, hyponatremia, a fib. 1. covid-19 - rx pna -would NOT USE REMDESIVIR W/ GFR UNDER 30 2. CKD STAGE 4- FROM AGE, HTN, DM 3. wilmer -from prerenal vs atn vs COVID-19 related viral WILMER -repeat ur na, u/a can have infection related GN -monitor for HD needs monitor uop, chem 7 4. anemia 5. IDDM- not well controlled- hgb a1 of 8.7 6. hyponatremia- check urine lytes -change ivf to 1/2 ns + 75 na bicarb -check tsh and cortisol level discussed w/ hospitalist Consult Attestations Medical Necessity Statement: covid-19 pna, wilmer, ckd stage 4, Time Spent in Patient Care: Greater than 35 minutes Coding Level of Care Code Acute Poker Manager for [facility]
[2020-08-05 11:27] LABS: Thyroid Stimulating Hormone 1.58 uIU/mL (0.27-4.20)
[2020-08-05 11:35] LABS: Glucose Point of Care 223 mg/dL (70-110)
--- NOTE | 2020-08-05 13:38 | PM.PN ---
Subjective Subjective: Interval history: Patient was examined this morning, she is doing well, no fevers, chills, no cough, is on 4 to 5 L, has had 800 cc urine output charted, Vitals/I&O/Wt Last Vital Signs Temp 98.2 F 08/05/20 09:00 Pulse 103 H 08/05/20 11:26 Resp 18 08/05/20 11:26 BP 138/97 08/05/20 12:00 Pulse Ox 96 08/05/20 12:00 08/04/20 08/05/20 08/05/20 22:59 06:59 14:59 Intake Total 350 / 950 518.184 / 1468.184 959.233 / 959.233 Output Total 200 / 400 200 / 600 Balance 150 / 550 318.184 / 868.184 959.233 / 959.233 Physical Exam Const: COMMON NORMALS: no acute distress and patient oriented x3 HENMT: COMMON NORMALS: normocephalic HEAD & SCALP: normocephalic Neck/C-Spine: COMMON NORMALS: no JVD Resp: COMMON NORMALS: normal respiratory effort, No retractions, No use of accessory muscles and clear to auscultation bilaterally AUSCULTATION: clear to auscultation bilaterally Cardio: COMMON NORMALS: no JVD, regular rate, regular rhythm, S1 normal heart sound present and S2 normal heart sound present RATE: regular rate RHYTHM: regular rhythm HEART SOUNDS: S1 normal heart sound present and S2 normal heart sound present GI: COMMON NORMALS: Normal to inspection, nondistended, normoactive bowel sounds present, Soft to palpation, non-tender, No hepatosplenomegaly present, no masses and no bruits PALPATION: Yes Soft to palpation and Yes No hepatosplenomegaly present Extremity: COMMON NORMALS: capillary refill normal, no clubbing, cyanosis or edema, no calf tenderness and no pedal edema Neuro: COMMON NORMALS: patient oriented x3 Psych: COMMON NORMALS: mental status grossly normal Urinary Catheter Management^: 2-way Urethral: Cath Placed During This Visit: yes Reason for Continuing Indwelling Catheter: Accurate Measurement of Urinary Output in Critically Ill Patients Urinary Catheter Date of Insertion: 08/03/20 Urinary Catheter Time of Insertion: 00:00 Data : 08/05/20 03:30 08/05/20 03:30 Micro: Microbiology 08/02/20 14:23 Urine Culture - Preliminary Urine Catheterized Enterococcus species A&P Assessment and plan (1) Acute respiratory failure with hypoxia: -Admit to viral ICU -Oxygen protocol -Advair, albuterol -Remdesivir, day 3 of , currently on hold due to GFR less than 30 -Decadron day 4 of 5 -Levaquin 500 mg daily, every 48 hours -Monitor respiratory status closely -Currently a full code Status: Acute (2) Encephalopathy acute: -Secondary to COVID-19 pneumonia, resolved Status: Acute (3) Pneumonia due to COVID-19 virus: Status: Acute (4) HTN (hypertension): Status: Acute (5) CHF (congestive heart failure): Has a history of diastolic heart failure, last echo on 12/08/2018 showed EF of 65%, no regional wall motion abnormalities -Did have a cardiac stress test on March 2019 which showed myocardial perfusion imaging revealing a small area of reversible defect in the apical inferior wall region, suggestive of ischemia in the distribution of the distal right coronary artery, EF of 72%, left ventricular wall motion analysis reveals mild hypokinesia of the left ventricular apex -No complaints of chest pain -Echocardiogram shows EF of 65%, no regional wall motion abnormalities Status: Acute (6) CKD (chronic kidney disease): Status: Acute (7) Diabetes: Moderate dose sliding scale Start Levemir 15 units twice daily Status: Acute (8) Hypothyroidism: Continue levothyroxine Status: Inactive (9) Acute on chronic anemia: Hemoglobin 9.7, no hemodynamic compromise, no complaints of bloody or black stools, continue to monitor as he is on anticoagulation for DVT Status: Acute (10) Hyponatremia: Likely hypovolemic hyponatremia, currently sodium 131, receiving sodium bicarb Status: Acute (11) Acute kidney injury superimposed on CKD: Creatinine 3.0, baseline 2-2.1, likely prerenal secondary to dehydration -Hold all nephrotoxic agents -Nephrology consulted -Urine studies -Currently on sodium bicarb, monitor urine output, monitor creatinine Status: Acute (12) Transaminitis: Secondary to COVID-19 Status: Acute (13) Atrial fibrillation with RVR: -Is on metoprolol 100 mg daily, continue -Did not respond to amiodarone 200 mg, I am worried about QTC prolongation given remdesivir, hold off on further amnio -Started her on Cardizem 30 every 6 hours, seems to do the trick, heart rates in the 90s, A. fib -Start heparin drip, given concerns for anemia, 9.7, monitor hemoglobin, monitor for blood vessels, monitor hemodynamics -Echo shows EF of 65%, no regional wall motion abnormalities Status: Acute Additional A&P Information Plan for today get A. fib with RVR under control, with Cardizem, heparin drip, get up out of bed, monitor hemoglobin, de-escalate oxygen therapy Attestations Medical Necessity Statement*: Patient requires hospitalization, for acute hypoxic respiratory failure secondary COVID-19, acute kidney injury, A. fib, anemia Coding Level of Care Code Acute Net Washer for [facility] Fwd Diagnoses Acute respiratory failure with hypoxia J96.01 Encephalopathy acute G93.40 Pneumonia due to COVID-19 virus U07.1; J12.89 HTN (hypertension) I10 CHF (congestive heart failure) I50.9 CKD (chronic kidney disease) N18.9 Diabetes E11.9 Hypothyroidism E03.9 Acute on chronic anemia D64.9 Hyponatremia E87.1 Acute kidney injury superimposed on CKD N17.9; N18.9 Transaminitis R74.01 Atrial fibrillation with RVR I48.91
[2020-08-05 16:43] LABS: Potassium, Radom Urine 57 mmol/L; Urine Creatinine 118 mg/dL (28-217); Urine Random Sodium 26 mmol/L
[2020-08-05 16:44] LABS: Urea Nitrogen,Urine Random 908 mg/dL; Urine Protein Random 90 mg/dL; Urine Random Chloride < 10 mmol/L
[2020-08-05 17:15] LABS: Glucose Point of Care 84 mg/dL (70-110)
[2020-08-05 17:24] LABS: Partial Thromboplastin Time 120.7 SECONDS (23.9-36.7)
[2020-08-05 18:18] LABS: Eosinophil Urine No Eosinophils Seen; Urine Eosinophil Count 0 (0-0)
[2020-08-05] MEDS: doxazosin 1 mg Tablet 2 MG PO (20:22)
--- NOTE | 2020-08-05 22:47 | PC.NURSE ---
ASSUMED CARE OF PT. PT UP IN CHAIR. PT PULLED OUT IV IN LEFT HAND. NEW IV STARTED IN RIGHT HAND. 22G X1 STICK, PT TOLERATED WELL. BLOOD RETURN. FLUSHED WITH 10ML NS. PREVIOUS NURSE STATED THAT A BLADDER SCAN NEEDED TO BE DONE. BLADDER SCAN WAS DONE AND SHOWED 24ML OF URINE IN THE BLADDER. BUCK WAS IRRIGATED WITH 10ML. PT WAS THEN TRANSFERRED FROM CHAIR TO BED AT PT REQUEST. PT NEEDS ASSIST X2. PT SAID THAT THEIR BACK WAS HURTING DURING THE TRANSFER, BUT DENIED PAIN ONCE BACK IN BED. PTT WAS DRAWN BY THIS NURSE. RESULTS WERE 48. HEPARIN WAS RESTARTED AT 23ML/HR BY RN. WILL CONTINUE TO MONITOR.
[2020-08-06] VITALS (39 sets, daily range): BP systolic 94–154; BP diastolic 36–92; PULSE 81–119; RESP 1–21; TEMP 36.4–37.2; O2SAT 89–100
[2020-08-06] MEDS: albuterol 8 gm MDI 1 PUFF INHALATION ×7 (00:21→23:34)
[2020-08-06] MEDS: dilTIAZem 30 mg Tablet PO ×4 (00:41→18:33)
[2020-08-06 04:35] LABS: Lactic Sepsis W/Reflex 0.9 mmol/L (0.5-2.2)
[2020-08-06 04:54] LABS: Basophils % 0.1 %; Hematocrit 25.3 % (37.0-47.0); Hemoglobin 8.4 g/dL (11.5-15.3); Lymphocytes # 0.8 10^3/uL (0.8-4.8); Lymphocytes % 6.4 %; Mean Corpuscular HGB Conc 33.2 g/dL (30.0-36.0); Mean Corpuscular Hemoglobin 29.4 pg (28.0-34.0); Mean Corpuscular Volume 88.5 fL (81-99); Mean Platelet Volume 11.1 fL (7.4-10.4); Monocytes # 0.4 10^3/uL (0.2-0.9); Monocytes % 3.3 %; Neutrophils % 89.2 %; Nucleated Red Blood Cells % 0 %; Platelet Count 224 10^3/cmm (130-400); Red Blood Count 2.86 10^6/uL (4.1-5.3); Red Cell Distribution Width 12.6 % (12.1-15.1); White Blood Count 12.6 10^3/uL (4.0-10.0)
[2020-08-06 05:24] LABS: C Reactive Protein 38.8 mg/L (0.0-4.9)
[2020-08-06 05:30] LABS: Alanine Aminotransferase 58 U/L (0-33); Albumin Level 3.1 g/dL (3.5-5.2); Alkaline Phosphatase 70 IU/L (35-105); Anion Gap 16.3 (5-19); Aspartate Amino Transferase 69 U/L (0-32); Blood Urea Nitrogen 77 mg/dL (8-23); Calcium 8.1 mg/dL (8.5-10.5); Carbon Dioxide 20 mmol/L (22-29); Chloride 97 mmol/L (98-107); Globulin 2.3 g/dL (1.3-4.6); Glucose 89 mg/dL (65-115); Magnesium 2.4 mg/dL (1.7-2.3); NT Pro B Type Natriuretic Pept 11640 pg/mL (0-450); Osmolality Calculated 290 mOsm/kg (285-295); Phosphorus 4.1 mg/dL (2.5-4.5); Potassium 4.3 mmol/L (3.5-5.1); Sodium 129 mmol/L (136-145); Total Bilirubin 0.3 mg/dL (0.15-1.2); Total Protein 5.4 g/dL (6.6-8.7)
--- NOTE | 2020-08-06 06:00 | ECG_ITS ---
[facility] ED Test Date: 2020-08-06 Pat Name: Luiza Cooper Department: Room: ICU19 Gender: Female Payroll Tax Specialist: : 1940 Requested By: Donta Amaro Order Number: [id number] Casper MD: Lory Egan M.D. Measurements Intervals [place] Rate: 90 P: ID: -1 QRS: 65 QRSD: 94 T: 64 QT: 349 QTc: 427 Interpretive Statements ATRIAL FIBRILLATION LOW QRS VOLTAGE IN PRECORDIAL LEADS [QRS DEFLECTION < 1.0 mV IN CHEST LEADS] Compared to ECG 08/05/2020 04:17:49 Low QRS voltage now present Electronically Signed On 08-07-2020 22:02:42 GRE INSTRUCTOR by Lory Egan M.D. [email or web address]
--- NOTE | 2020-08-06 06:32 | PC.NURSE ---
PT IS RESTING IN BED. DENIES PAIN AT THIS TIME. STILL WAITING ON PTT RESULTS FROM 0400 DRAW. LAB IS AWARE. WILL CONTINUE TO MONITOR.
[2020-08-06 06:38] LABS: Creatine Phosphokinase 922 U/L (26-192)
[2020-08-06 06:46] LABS: INR 1.27 (0.8-1.2)
[2020-08-06 07:33] LABS: Partial Thromboplastin Time > 250.0 SECONDS (23.9-36.7)
--- NOTE | 2020-08-06 07:37 | P.PN_ITS ---
Subjective Subjective: Interval history: weak, pain. drinking fluids- not eating much. poor uop. nausea, weak Medications: Reviewed: Yes Medication Review Details: Current Medications Acetaminophen (Acetaminophen 325 Mg Tablet) 650 mg PO Q6H PRN PRN Reason: Mild/Mod Pain Or Temp >/= 101 Last Admin: 08/02/20 21:22 Dose: 650 mg Documented by: Albuterol Sulfate (Albuterol 8 Gm Mdi) 1 puff INHALATION Q4H.RESPIRATORY [facility] Last Admin: 08/06/20 04:15 Dose: 1 puff Documented by: Aspirin (Aspirin 81 Mg Ec Tablet) 81 mg PO DAILY [facility] Last Admin: 08/05/20 08:59 Dose: 81 mg Documented by: Atorvastatin Calcium (Atorvastatin 40 Mg Tablet) 20 mg PO DAILY [facility] Last Admin: 08/05/20 08:59 Dose: 20 mg Documented by: Dexamethasone (Dexamethasone 4 Mg/Ml Inj) 6 mg IVP Q24H [facility] Last Admin: 08/05/20 09:00 Dose: 6 mg Documented by: Dextrose (Dextrose 50% Syringe 50 Ml) 25 ml IVP ONCE PRN; Protocol PRN Reason: hypoglycemia protocol Dextrose (Dextrose 50% Syringe 50 Ml) 50 ml IVP PRN PRN; Protocol PRN Reason: hypoglycemia protocol Diltiazem HCl (Diltiazem 30 Mg Tablet) 30 mg PO Q6H [facility] Last Admin: 08/06/20 06:06 Dose: 30 mg Documented by: Docusate Sodium (Docusate Sodium 100 Mg Capsule) 100 mg PO DAILY [facility] Last Admin: 08/05/20 08:59 Dose: 100 mg Documented by: Doxazosin Mesylate (Doxazosin 1 Mg Tablet) 2 mg PO BEDTIME [facility] Last Admin: 08/05/20 20:22 Dose: 2 mg Documented by: Ferrous Sulfate (Ferrous Sulfate Ec 325 Mg Tablet) 325 mg PO BID [facility] Last Admin: 08/05/20 17:07 Dose: 325 mg Documented by: Glucagon (Glucagon 1 Mg/Ml Inj 1 Ml) 1 mg IM ONCE PRN; Protocol PRN Reason: Adult Acute Hypoglycemia Prot. Heparin Sodium (Beef Lung) (Heparin 5,000 Unit/Ml Inj 1 Ml) 0 unit IV PRN PRN; Protocol PRN Reason: Heparin weight-base protocol Levofloxacin/Dextrose (Levaquin-D5w) 500 mg in 100 mls @ 100 mls/hr IV Q48H [facility] Last Infusion: 08/05/20 11:18 Dose: Infused Documented by: Dextrose (D5w) 500 mls @ 100 mls/hr IV ONCE PRN; Protocol PRN Reason: Adult Acute Hypoglycemia Prot Heparin Sodium/Sodium Chloride (Heparin Drip) 25,000 unit in 500 mls @ 0 mls/hr IV .Q0M [facility]; Protocol Last Titration: 08/05/20 22:20 Dose: 13.85 unit/kg/hr, 23 mls/hr Documented by: Sodium Bicarbonate 75 meq/ (Sodium Chloride) 1,000 mls @ 100 mls/hr IV .Q10H [facility] Last Admin: 08/05/20 21:47 Dose: 100 mls/hr Documented by: Insulin Aspart (Insulin Aspart 100 Unit/1 Ml) 0 unit SUBCUT TIDWM [facility]; Protocol Last Admin: 08/05/20 17:18 Dose: Not Given Documented by: Insulin Detemir (Insulin Detemir 100 Units/1 Ml) 15 unit SUBCUT Q12H [facility] Last Admin: 08/05/20 22:06 Dose: 15 unit Documented by: Levothyroxine Sodium (Levothyroxine 150 Mcg Tablet) 75 mcg PO DAILY [facility] Last Admin: 08/05/20 09:01 Dose: 75 mcg Documented by: Metoprolol Succinate (Metoprolol Succinate Er (24 Hr) 100 Mg Tablet) 100 mg PO DAILY [facility] Last Admin: 08/05/20 09:02 Dose: 100 mg Documented by: Non-Formulary Medication (Coenzyme Q10 [Coq-10]) 100 mg PO DAILY [facility] Last Admin: 08/05/20 09:03 Dose: Not Given Documented by: Non-Formulary Medication (Egnwqkrxujrv-Udiikeoj-Ghrixc) 1 tab PO DAILY [facility] Last Admin: 08/05/20 09:03 Dose: Not Given Documented by: Dqeab-0-Ycwm Ethyl Esters ([place]-3 Fatty Acids 1,000 Mg Capsule) 1,000 mg PO DAILY [facility] Last Admin: 08/05/20 09:02 Dose: 1,000 mg Documented by: Ondansetron HCl (Ondansetron 2 Mg/Ml Sdv 2 Ml) 4 mg IVP Q8H PRN PRN Reason: vomiting, or N/V if npo Last Admin: 08/05/20 00:14 Dose: 4 mg Documented by: Ondansetron HCl (Ondansetron 2 Mg/Ml Sdv 2 Ml) 4 mg IVP Q4H PRN PRN Reason: NAUSEA AND VOMITING Last Admin: 08/05/20 15:55 Dose: 4 mg Documented by: Pantoprazole Sodium (Pantoprazole Dr 40 Mg Tablet) 40 mg PO Q12H NIKO Fluticasone/Salmeterol (Fluticasone-Salmeterol 250-50 Diskus) 1 puff INHALATION BID.RESPIRATORY NIKO Last Admin: 08/05/20 20:14 Dose: 1 puff Documented by: Vitals/I&O/Wt Last Vital Signs Temp 98.2 F 08/05/20 09:00 Pulse 114 H 08/06/20 06:00 Resp 15 08/06/20 06:00 BP 94/62 08/06/20 06:00 Pulse Ox 96 08/06/20 06:00 08/05/20 08/06/20 08/06/20 22:59 06:59 14:59 Intake Total 1370 / 2329.233 Output Total 200 / 200 500 / 700 Balance 1170 / 2129.233 -500 / 1629.233 Physical Exam Narrative: EXAM NARRATIVE: exam by RN- telemedicine visit sob in bed, nc 02 heent- nc/at, eomi, anocteric neck supple lung dull bases, clear upper lobes heart irreg irreg abd soft, nt, ND, +BS ext no edema neuro- a,a, o x 3 moves all ext skin- no rash pulses + b/l Urinary Catheter Management^: 2-way Urethral: Cath Placed During This Visit: yes Reason for Continuing Indwelling Catheter: Accurate Measurement of Urinary Ou tput in Critically Ill Patients Urinary Catheter Date of Insertion: 08/03/20 Urinary Catheter Time of Insertion: 00:00 Data : 08/06/20 03:57 08/06/20 04:00 Micro: Microbiology 08/02/20 14:23 Urine Culture - Preliminary Urine Catheterized Enterococcus species A&P Additional A&P Information 80 yr old female hypothyroidism, iddm, htn, hyperlipidemia, obesity, ckd stage 4. Pt here w/ CVOD-19. developed ANSON, hyponatremia, a fib. 1. covid-19 - rx pna -would NOT USE REMDESIVIR W/ GFR UNDER 30 2. CKD STAGE 4- FROM AGE, HTN, DM 3. anson -from prerenal vs atn vs COVID-19 related viral ANSON -urine studies noted. -low ur na and cl- suggestive of effective intravascular volume deplrtion can have infection related GN -cr stable monitor uop, chem 7 -SOB, inc BNP, hyponatremia- d/c ivf -renal us left kidney not visualized. RT normal 4. anemia -per medicine- check iron studies, spep -hgb down from 9.9 to 8.7 5. IDDM- not well controlled- hgb a1 of 8.7 6. hyponatremia- low ur na. however- na dropped w/ ivf- d/c ivf- fluid restrict -may need lasix -normal TSH 7. met acidosis- improved- d/c ivf 8. ck 922- no statins- moitor 9. elevated bnp- d/c ivf. ma need lasix. can get high bnp in renal failure discussed w/ RN Attestations Medical Necessity Statement*: COVID-19 pna, hyponatremia, ANSON on CKD stage 4, sob Time Spent in Patient Care: 16 - 35 minutes Coding Level of Care Code Acute Knee Bolter for Chg Jaciel
[2020-08-06 08:06] LABS: Glucose Point of Care 103 mg/dL (70-110)
--- NOTE | 2020-08-06 08:30 | PC.NURSE ---
ptt came back at above 250 heparin held, bicarb off ass well per order. noted patient npo but unable to see reason. attempted to call brett.
[2020-08-06 08:32] LABS: Procalcitonin 0.48 ng/mL (0-0.5)
[2020-08-06 08:50] LABS: Iron 53 ug/dL (37-145); Total Iron Binding Capacity 151 mcg/dl; Unsaturated Iron Binding 98 ug/dL (112-347)
[2020-08-06 09:02] LABS: Ferritin 1458 ng/mL (15-150)
[2020-08-06] MEDS: docusate sodium 100 mg Capsule PO (09:08)
[2020-08-06] MEDS: aspirin 81 mg EC Tablet PO (09:08)
[2020-08-06] MEDS: omega-3 fatty acids 1,000 mg Capsule 1000 MG PO (09:08)
[2020-08-06] MEDS: metoprolol succinate ER (24 HR) 100 mg Tablet PO (09:09)
[2020-08-06] MEDS: acetaminophen 325 mg Tablet 650 MG PO (09:09)
[2020-08-06] MEDS: ferrous sulfate EC 325 mg Tablet PO ×2 (09:09→18:33)
[2020-08-06] MEDS: levothyroxine 150 mcg Tablet 75 MCG PO (09:09)
[2020-08-06] MEDS: pantoprazole DR 40 mg Tablet PO ×2 (09:10→18:28)
[2020-08-06] MEDS: dexamethasone 4 mg/mL INJ 6 MG IVP (09:10)
[2020-08-06 09:25] LABS: Cortisol Random 5.32 ug/mL (2.47-19.5)
[2020-08-06 09:40] LABS: Folate Level > 20.0 ng/mL (4.8-37.3); Vitamin B12 > 2000 pg/mL (232-1245)
[2020-08-06 12:20] LABS: Glucose Point of Care 129 mg/dL (70-110)
--- NOTE | 2020-08-06 12:43 | PM.PN ---
Subjective Subjective: Interval history: This morning patient was examined, she has no particular complaints this morning, no chest pain, no shortness of breath, is on 4 L, she tells me that she is doing well for 80-year-old with Covid, she ist concerned about her kidney failure Vitals/I&O/Wt Last Vital Signs Temp 98.2 F 08/05/20 09:00 Pulse 93 08/06/20 11:40 Resp 17 08/06/20 11:40 BP 94/62 08/06/20 06:00 Pulse Ox 94 08/06/20 11:40 08/05/20 08/06/20 08/06/20 22:59 06:59 14:59 Intake Total 1370 / 2329.233 Output Total 200 / 200 500 / 700 Balance 1170 / 2129.233 -500 / 1629.233 Physical Exam Const: COMMON NORMALS: no acute distress and patient oriented x3 GENERAL APPEARANCE: cooperative and comfortable HENMT: COMMON NORMALS: normocephalic HEAD & SCALP: normocephalic Eye: COMMON NORMALS: Equal, round and reactive pupils present, EOMs intact bilaterally and no papilledema GENERAL EYE: appearance normal, both eyes and all related structures PUPIL: Yes Equal, round and reactive pupils present DIRECT OPHTHALMOSCOPY: Yes no papilledema Neck/C-Spine: COMMON NORMALS: no JVD and Thyroid normal THYROID: Thyroid normal Lymph: LYMPHATIC: no lymphadenopathy noted Resp: COMMON NORMALS: normal respiratory effort, No retractions, No use of accessory muscles and clear to auscultation bilaterally AUSCULTATION: clear to auscultation bilaterally Cardio: COMMON NORMALS: no JVD, regular rate, S1 normal heart sound present and S2 normal heart sound present RATE: regular rate and tachycardic RHYTHM: abnormal rhythm HEART SOUNDS: S1 normal heart sound present and S2 normal heart sound present GI: COMMON NORMALS: Normal to inspection, nondistended, normoactive bowel sounds present, Soft to palpation, non-tender, No hepatosplenomegaly present, no masses and no bruits PALPATION: Yes Soft to palpation and Yes No hepatosplenomegaly present Extremity: COMMON NORMALS: capillary refill normal, no clubbing, cyanosis or edema, no calf tenderness and no pedal edema Neuro: COMMON NORMALS: patient oriented x3 Psych: COMMON NORMALS: mental status grossly normal and speech normal ATTITUDE: Yes Withdrawn affect present ACTIVITY/MOTOR BEHAVIOR: Yes Avoids eye contact (attititude/behavior) SPEECH: Yes normal speech THOUGHT PROCESS: confused ATTENTION/CONCENTRATION: Yes attention grossly impaired and Yes concentration grossly impaired MEMORY/COGNITION: Yes memory grossly impaired and Yes cognition grossly intact Urinary Catheter Management^: 2-way Urethral: Cath Placed During This Visit: yes Reason for Continuing Indwelling Catheter: Accurate Measurement of Urinary Output in Critically Ill Patients Urinary Catheter Date of Insertion: 08/03/20 Urinary Catheter Time of Insertion: 00:00 Data : 08/06/20 03:57 08/06/20 04:00 Micro: Microbiology 08/02/20 14:23 Urine Culture - Preliminary Urine Catheterized Enterococcus species A&P Assessment and plan (1) Acute respiratory failure with hypoxia: -Admit to viral ICU -Oxygen protocol -Advair, albuterol -Remdesivir, day 3 of 5, currently on hold due to GFR less than 30 -Decadron day 5 of 5 -Levaquin 500 mg daily, every 48 hours -Monitor respiratory status closely -Currently a full code Status: Acute (2) Encephalopathy acute: -Secondary to COVID-19 pneumonia, resolved Status: Acute (3) Pneumonia due to COVID-19 virus: Status: Acute (4) HTN (hypertension): Status: Acute (5) CHF (congestive heart failure): Has a history of diastolic heart failure, last echo on 12/08/2018 showed EF of 65%, no regional wall motion abnormalities -Did have a cardiac stress test on March 2019 which showed myocardial perfusion imaging revealing a small area of reversible defect in the apical inferior wall region, suggestive of ischemia in the distribution of the distal right coronary artery, EF of 72%, left ventricular wall motion analysis reveals mild hypokinesia of the left ventricular apex -No complaints of chest pain -Echocardiogram shows EF of 65%, no regional wall motion abnormalities Status: Acute (6) CKD (chronic kidney disease): Status: Acute (7) Diabetes: Moderate dose sliding scale Levemir to 20 units twice daily Status: Acute (8) Hypothyroidism: Continue levothyroxine Status: Inactive (9) Acute on chronic anemia: -Hemoglobin 8.4, no hemodynamic compromise, no complaints of bloody or black stools -Likely secondary to bone marrow suppression, COVID-19, sepsis, renal failure -We will do iron studies, stool studies -Heparin placed on hold -Transfuse 1 unit PRBC Status: Acute (10) Hyponatremia: Likely hypovolemic hyponatremia, currently sodium 129, continue to monitor Status: Acute (11) Acute kidney injury superimposed on CKD: Creatinine 2.8, baseline 2-2.1, likely prerenal secondary to dehydration -Urine output 600 cc yesterday, 700 this morning -Hold all nephrotoxic agents -Nephrology consulted -Urine studies -Fluids on hold, monitor urine output, monitor creatinine Status: Acute (12) Transaminitis: Secondary to COVID-19 Status: Acute (13) Atrial fibrillation with RVR: -Is on metoprolol 100 mg daily, continue -Did not respond to amiodarone 200 mg, I am worried about QTC prolongation given remdesivir, hold off on further amnio -Started her on Cardizem 30 every 6 hours, seems to do the trick, heart rates in the 90s, A. fib -Heparin drip on hold -Echo shows EF of 65%, no regional wall motion abnormalities Status: Acute Additional A&P Information Plan for today hold heparin drip, transfuse 1 unit PRBC, monitor creatinine, monitor urine output Attestations Medical Necessity Statement*: Course hospitalization for acute respiratory failure secondary COVID-19, anemia, A. fib, acute renal failure Coding Level of Care Code Acute Lead Fabricator for [facility] Fw Diagnoses Acute respiratory failure with hypoxia J96.01 Encephalopathy acute G93.40 Pneumonia due to COVID-19 virus U07.1; J12.89 HTN (hypertension) I10 CHF (congestive heart failure) I50.9 CKD (chronic kidney disease) N18.9 Diabetes E11.9 Hypothyroidism E03.9 Acute on chronic anemia D64.9 Hyponatremia E87.1 Acute kidney injury superimposed on CKD N17.9; N18.9 Transaminitis R74.01 Atrial fibrillation with RVR I48.91
[2020-08-06 16:38] LABS: Osmolality Urine 539 mOsm/kg (50-1200)
[2020-08-06 17:28] LABS: Glucose Point of Care 104 mg/dL (70-110)
[2020-08-06] MEDS: levofloxacin-dextrose 5 % 500 MG/100 ML PREMIX 100 MG IV (18:33)
--- NOTE | 2020-08-06 20:15 | PC.NURSE ---
PAIENT SLUGGISH, NEEDING A LOT OF ASSISTANCE TO MOVE HERSELF IN BED OR ADJUST IN THE CHAIR. PT ORDERED. POOR APPETITE. BLOOD PERMIT SIGNED AND TRANSFUSION WENT WELL.
[2020-08-06] MEDS: doxazosin 1 mg Tablet 2 MG PO (21:26)
[2020-08-07] VITALS (30 sets, daily range): BP systolic 99–140; BP diastolic 41–89; PULSE 72–110; RESP 7–18; TEMP 36.2–37; O2SAT 93–99
[2020-08-07] MEDS: dilTIAZem 30 mg Tablet PO ×5 (00:08→23:58)
[2020-08-07 00:11] LABS: Glucose Point of Care 147 mg/dL (70-110)
[2020-08-07 00:11] LABS: Glucose Point of Care 122 mg/dL (70-110)
[2020-08-07] MEDS: albuterol 8 gm MDI 1 PUFF INHALATION ×4 (03:40→19:49)
[2020-08-07 04:38] LABS: Lactic Sepsis W/Reflex 0.8 mmol/L (0.5-2.2)
[2020-08-07 04:59] LABS: Basophils % 0.1 %; Hematocrit 24.5 % (37.0-47.0); Hemoglobin 8.2 g/dL (11.5-15.3); Lymphocytes # 0.7 10^3/uL (0.8-4.8); Lymphocytes % 6.4 %; Mean Corpuscular HGB Conc 33.5 g/dL (30.0-36.0); Mean Corpuscular Hemoglobin 29.8 pg (28.0-34.0); Mean Corpuscular Volume 89.1 fL (81-99); Mean Platelet Volume 10.9 fL (7.4-10.4); Monocytes # 0.4 10^3/uL (0.2-0.9); Monocytes % 3.4 %; Neutrophils # 9.46 10^3/uL (1.8-7.7); Neutrophils % 88.2 %; Nucleated Red Blood Cells % 0 %; Platelet Count 204 10^3/cmm (130-400); Red Blood Count 2.75 10^6/uL (4.1-5.3); Red Cell Distribution Width 12.7 % (12.1-15.1); White Blood Count 10.7 10^3/uL (4.0-10.0)
[2020-08-07 05:14] LABS: INR 1.13 (0.8-1.2)
[2020-08-07 05:41] LABS: C Reactive Protein 25.1 mg/L (0.0-4.9)
--- NOTE | 2020-08-07 06:00 | ECG_ITS ---
[facility] ED Test Date: 2020-08-04 Pat Name: Luiza Cooper Department: Room: ICU19 Gender: Female Physician Practice Market Manager: : 1940 Requested By: Donta Amaro Order Number: [id number] Casper MD: Lory Egan M.D. Measurements Intervals [place] Rate: 78 P: 5 VA: 133 QRS: 6 QRSD: 87 T: 25 QT: 402 QTc: 458 Interpretive Statements SINUS RHYTHM Compared to ECG 08/04/2020 20:44:58 Atrial fibrillation no longer present Electronically Signed On 08-07-2020 22:05:12 ART CLASS MODEL by Lory Egan M.D. [id number]
[2020-08-07 06:44] LABS: NT Pro B Type Natriuretic Pept 12637 pg/mL (0-450); Procalcitonin 0.27 ng/mL (0-0.5)
[2020-08-07 06:55] LABS: Alanine Aminotransferase 58 U/L (0-33); Albumin Level 2.8 g/dL (3.5-5.2); Alkaline Phosphatase 60 IU/L (35-105); Anion Gap 18.4 (5-19); Aspartate Amino Transferase 56 U/L (0-32); Blood Urea Nitrogen 75 mg/dL (8-23); Calcium 8.4 mg/dL (8.5-10.5); Carbon Dioxide 19 mmol/L (22-29); Chloride 98 mmol/L (98-107); Globulin 2.3 g/dL (1.3-4.6); Glucose 45 mg/dL (65-115); Magnesium 2.4 mg/dL (1.7-2.3); Osmolality Calculated 291 mOsm/kg (285-295); Phosphorus 4.3 mg/dL (2.5-4.5); Potassium 4.4 mmol/L (3.5-5.1); Sodium 131 mmol/L (136-145); Total Bilirubin 0.3 mg/dL (0.15-1.2); Total Protein 5.1 g/dL (6.6-8.7)
[2020-08-07 06:58] LABS: Creatine Phosphokinase 896 U/L (26-192)
[2020-08-07] MEDS: dextrose 50% syringe 50 mL 25 ML IVP (07:00)
[2020-08-07 07:31] LABS: Glucose Point of Care 45 mg/dL (70-110)
[2020-08-07] MEDS: acetaminophen 325 mg Tablet 650 MG PO ×2 (07:31→12:46)
[2020-08-07] MEDS: dexamethasone 4 mg/mL INJ 6 MG IVP (07:32)
[2020-08-07] MEDS: ondansetron 2 mg/ML SDV 2 mL 4 MG IVP (07:32)
[2020-08-07] MEDS: docusate sodium 100 mg Capsule PO (07:33)
[2020-08-07] MEDS: metoprolol succinate ER (24 HR) 100 mg Tablet PO (07:33)
[2020-08-07] MEDS: pantoprazole DR 40 mg Tablet PO ×2 (07:33→20:37)
[2020-08-07] MEDS: aspirin 81 mg EC Tablet PO (07:33)
[2020-08-07] MEDS: ferrous sulfate EC 325 mg Tablet PO ×2 (07:35→17:18)
[2020-08-07] MEDS: levothyroxine 150 mcg Tablet 75 MCG PO (07:35)
[2020-08-07 07:58] LABS: Glucose Point of Care 116 mg/dL (70-110)
--- NOTE | 2020-08-07 08:35 | PC.SOCIAL ---
IMM Update Pg. 2 of IMM updated and reviewed with patient's and daughter over the phone, verbalized understanding.
[2020-08-07 10:52] LABS: Glucose Point of Care 96 mg/dL (70-110)
--- NOTE | 2020-08-07 12:51 | P.PN_ITS ---
Subjective Subjective: Interval history: This morning patient was examined, she is a bit frustrated on why it is taking her so long to recover, she is feeling a bit nauseated, weak, poor appetite no fevers, chills, no shortness of breath Vitals/I&O/Wt Last Vital Signs Temp 97.8 F 08/07/20 11:58 Pulse 88 08/07/20 11:58 Resp 12 08/07/20 11:58 BP 122/58 08/07/20 11:58 Pulse Ox 97 08/07/20 11:14 08/06/20 08/07/20 08/07/20 22:59 06:59 14:59 Intake Total 550 / 870 300 / 300 Output Total 550 / 550 650 / 1200 700 / 700 Balance 0 / 320 -650 / -330 -400 / -400 Physical Exam Const: COMMON NORMALS: no acute distress and patient oriented x3 HENMT: COMMON NORMALS: normocephalic HEAD & SCALP: normocephalic Neck/C-Spine: COMMON NORMALS: no JVD Resp: COMMON NORMALS: normal respiratory effort, No retractions, No use of accessory muscles and clear to auscultation bilaterally AUSCULTATION: clear to auscultation bilaterally Cardio: COMMON NORMALS: no JVD, regular rate, regular rhythm, S1 normal heart sound present and S2 normal heart sound present RATE: regular rate RHYTHM: regular rhythm HEART SOUNDS: S1 normal heart sound present and S2 normal heart sound present GI: COMMON NORMALS: Normal to inspection, nondistended, normoactive bowel sounds present, Soft to palpation, non-tender, No hepatosplenomegaly present, no masses and no bruits PALPATION: Yes Soft to palpation and Yes No hepatosplenomegaly present Extremity: COMMON NORMALS: capillary refill normal, no clubbing, cyanosis or edema, no calf tenderness and no pedal edema Neuro: COMMON NORMALS: patient oriented x3 Psych: COMMON NORMALS: mental status grossly normal Urinary Catheter Management^: 2-way Urethral: Cath Placed During This Visit: yes Reason for Continuing Indwelling Catheter: Accurate Measurement of Urinary Output in Critically Ill Patients Urinary Catheter Date of Insertion: 08/03/20 Urinary Catheter Time of Insertion: 00:00 Data : 08/07/20 03:25 08/07/20 03:25 Micro: Microbiology 08/02/20 14:23 Urine Culture - Final Urine Catheterized Enterococcus faecalis A&P Assessment and plan (1) Acute respiratory failure with hypoxia: -Admit to viral ICU -Oxygen protocol -Advair, albuterol -Remdesivir, day 3 of 5, currently on hold due to GFR less than 30 -Decadron -Levaquin 500 mg daily, every 48 hours, urine culture showing Enterococcus, sensitive to Levaquin -Monitor respiratory status closely -Currently a full code Status: Acute (2) Encephalopathy acute: -Secondary to COVID-19 pneumonia, resolved Status: Acute (3) Pneumonia due to COVID-19 virus: Status: Acute (4) HTN (hypertension): Status: Acute (5) CHF (congestive heart failure): Has a history of diastolic heart failure, last echo on 12/08/2018 showed EF of 65%, no regional wall motion abnormalities -Did have a cardiac stress test on March 2019 which showed myocardial perfusion imaging revealing a small area of reversible defect in the apical inferior wall region, suggestive of ischemia in the distribution of the distal right coronary artery, EF of 72%, left ventricular wall motion analysis reveals mild hypokinesia of the left ventricular apex -No complaints of chest pain -Echocardiogram shows EF of 65%, no regional wall motion abnormalities Status: Acute (6) CKD (chronic kidney disease): Status: Acute (7) Diabetes: Moderate dose sliding scale Levemir to 20 units twice daily on hold due to hypoglycemia Status: Acute (8) Hypothyroidism: Continue levothyroxine Status: Inactive (9) Acute on chronic anemia: -Hemoglobin 8.2, no hemodynamic compromise, no complaints of bloody or black stools -Likely secondary to bone marrow suppression, COVID-19, sepsis, renal failure -stool studies -Heparin placed on hold -Status post 1 unit PRBC -We will transfuse 1 unit PRBC this morning Status: Acute (10) Hyponatremia: Likely hypovolemic hyponatremia, currently sodium 129, continue to monitor Status: Acute (11) Acute kidney injury superimposed on CKD: Creatinine 2.8, baseline 2-2.1, likely prerenal secondary to dehydration -Urine output 700 cc yesterday, 1200 this morning -Hold all nephrotoxic agents -Nephrology consulted -Urine studies -Fluids on hold, monitor urine output, monitor creatinine Status: Acute (12) Transaminitis: Secondary to COVID-19 Status: Acute (13) Atrial fibrillation with RVR: -Is on metoprolol 100 mg daily, continue -Did not respond to amiodarone 200 mg, I am worried about QTC prolongation given remdesivir, hold off on further amnio -Started her on Cardizem 30 every 6 hours, seems to do the trick, heart rates in the 90s, A. fib -Heparin drip on hold -Echo shows EF of 65%, no regional wall motion abnormalities Status: Acute Additional A&P Information Plan for today get out of bed, transfuse 1 unit, monitor urine output, monitor creatinine, monitor respiratory status Attestations Medical Necessity Statement*: Patient requires hospitalization for acute respiratory failure secondary COVID-19, edema, A. fib, acute renal failure Coding Level of Care Code Acute Make Ready Mechanic for [facility] Fw Diagnoses Acute respiratory failure with hypoxia J96.01 Encephalopathy acute G93.40 Pneumonia due to COVID-19 virus U07.1; J12.89 HTN (hypertension) I10 CHF (congestive heart failure) I50.9 CKD (chronic kidney disease) N18.9 Diabetes E11.9 Hypothyroidism E03.9 Acute on chronic anemia D64.9 Hyponatremia E87.1 Acute kidney injury superimposed on CKD N17.9; N18.9 Transaminitis R74.01 Atrial fibrillation with RVR I48.91
--- NOTE | 2020-08-07 13:26 | PM.PN ---
Subjective Subjective: Interval history: Apathetic, dysthymic, also complaining of nausea and vomiting, receiving some PRBCs Some global puffiness Good urine output maintaining O2 sats on room air No uremic Sx. Medications: Reviewed: Yes Medication Review Details: Current Medications Acetaminophen (Acetaminophen 325 Mg Tablet) 650 mg PO Q6H PRN PRN Reason: Mild/Mod Pain Or Temp >/= 101 Last Admin: 08/02/20 21:22 Dose: 650 mg Documented by: Albuterol Sulfate (Albuterol 8 Gm Mdi) 1 puff INHALATION Q4H.RESPIRATORY [facility] Last Admin: 08/06/20 04:15 Dose: 1 puff Documented by: Aspirin (Aspirin 81 Mg Ec Tablet) 81 mg PO DAILY [facility] Last Admin: 08/05/20 08:59 Dose: 81 mg Documented by: Atorvastatin Calcium (Atorvastatin 40 Mg Tablet) 20 mg PO DAILY [facility] Last Admin: 08/05/20 08:59 Dose: 20 mg Documented by: Dexamethasone (Dexamethasone 4 Mg/Ml Inj) 6 mg IVP Q24H [facility] Last Admin: 08/05/20 09:00 Dose: 6 mg Documented by: Dextrose (Dextrose 50% Syringe 50 Ml) 25 ml IVP ONCE PRN; Protocol PRN Reason: hypoglycemia protocol Dextrose (Dextrose 50% Syringe 50 Ml) 50 ml IVP PRN PRN; Protocol PRN Reason: hypoglycemia protocol Diltiazem HCl (Diltiazem 30 Mg Tablet) 30 mg PO Q6H [facility] Last Admin: 08/06/20 06:06 Dose: 30 mg Documented by: Docusate Sodium (Docusate Sodium 100 Mg Capsule) 100 mg PO DAILY [facility] Last Admin: 08/05/20 08:59 Dose: 100 mg Documented by: Doxazosin Mesylate (Doxazosin 1 Mg Tablet) 2 mg PO BEDTIME [facility] Last Admin: 08/05/20 20:22 Dose: 2 mg Documented by: Ferrous Sulfate (Ferrous Sulfate Ec 325 Mg Tablet) 325 mg PO BID [facility] Last Admin: 08/05/20 17:07 Dose: 325 mg Documented by: Glucagon (Glucagon 1 Mg/Ml Inj 1 Ml) 1 mg IM ONCE PRN; Protocol PRN Reason: Adult Acute Hypoglycemia Prot. Heparin Sodium (Beef Lung) (Heparin 5,000 Unit/Ml Inj 1 Ml) 0 unit IV PRN PRN; Protocol PRN Reason: Heparin weight-base protocol Levofloxacin/Dextrose (Levaquin-D5w) 500 mg in 100 mls @ 100 mls/hr IV Q48H [facility] Last Infusion: 08/05/20 11:18 Dose: Infused Documented by: Dextrose (D5w) 500 mls @ 100 mls/hr IV ONCE PRN; Protocol PRN Reason: Adult Acute Hypoglycemia Prot Heparin Sodium/Sodium Chloride (Heparin Drip) 25,000 unit in 500 mls @ 0 mls/hr IV .Q0M [facility]; Protocol Last Titration: 08/05/20 22:20 Dose: 13.85 unit/kg/hr, 23 mls/hr Documented by: Sodium Bicarbonate 75 meq/ (Sodium Chloride) 1,000 mls @ 100 mls/hr IV .Q10H [facility] Last Admin: 08/05/20 21:47 Dose: 100 mls/hr Documented by: Insulin Aspart (Insulin Aspart 100 Unit/1 Ml) 0 unit SUBCUT TIDWM [facility]; Protocol Last Admin: 08/05/20 17:18 Dose: Not Given Documented by: Insulin Detemir (Insulin Detemir 100 Units/1 Ml) 15 unit SUBCUT Q12H [facility] Last Admin: 08/05/20 22:06 Dose: 15 unit Documented by: Levothyroxine Sodium (Levothyroxine 150 Mcg Tablet) 75 mcg PO DAILY [facility] Last Admin: 08/05/20 09:01 Dose: 75 mcg Documented by: Metoprolol Succinate (Metoprolol Succinate Er (24 Hr) 100 Mg Tablet) 100 mg PO DAILY [facility] Last Admin: 08/05/20 09:02 Dose: 100 mg Documented by: Non-Formulary Medication (Coenzyme Q10 [Coq-10]) 100 mg PO DAILY [facility] Last Admin: 08/05/20 09:03 Dose: Not Given Documented by: Non-Formulary Medication (Wqepbjnoubrc-Qpwondhz-Alqhbk) 1 tab PO DAILY [facility] Last Admin: 08/05/20 09:03 Dose: Not Given Documented by: Ojvex-4-Dgxw Ethyl Esters ([place]-3 Fatty Acids 1,000 Mg Capsule) 1,000 mg PO DAILY [facility] Last Admin: 08/05/20 09:02 Dose: 1,000 mg Documented by: Ondansetron HCl (Ondansetron 2 Mg/Ml Sdv 2 Ml) 4 mg IVP Q8H PRN PRN Reason: vomiting, or N/V if npo Last Admin: 08/05/20 00:14 Dose: 4 mg Documented by: Ondansetron HCl (Ondansetron 2 Mg/Ml Sdv 2 Ml) 4 mg IVP Q4H PRN PRN Reason: NAUSEA AND VOMITING Last Admin: 08/05/20 15:55 Dose: 4 mg Documented by: Pantoprazole Sodium (Pantoprazole Dr 40 Mg Tablet) 40 mg PO Q12H [facility] Fluticasone/Salmeterol (Fluticasone-Salmeterol 250-50 Diskus) 1 puff INHALATION BID.RESPIRATORY [facility] Last Admin: 08/05/20 20:14 Dose: 1 puff Documented by: Vitals/I&O/Wt Last Vital Signs Temp 97.8 F 08/07/20 11:58 Pulse 88 08/07/20 11:58 Resp 12 08/07/20 11:58 BP 122/58 08/07/20 11:58 Pulse Ox 97 08/07/20 11:14 08/06/20 08/07/20 08/07/20 22:59 06:59 14:59 Intake Total 550 / 870 300 / 300 Output Total 550 / 550 650 / 1200 700 / 700 Balance 0 / 320 -650 / -330 -400 / -400 Physical Exam Narrative: EXAM NARRATIVE: Constitutional: Awake, distress HEENT: Wet mucosa, no jvp, non icteric Lungs: Bilaterally clear without discernible wheeze, rales in all lung zones CVS: S1 S2, no murmurs Abdo: Soft, BS ok Ext 4: Minimal edema, peripheral perfusion with no cyanosis Neurological: Grossly non-focal Urinary Catheter Management^: 2-way Urethral: Cath Placed During This Visit: yes Reason for Continuing Indwelling Catheter: Accurate Measurement of Urinary Output in Critically Ill Patients Urinary Catheter Date of Insertion: 08/03/20 Urinary Catheter Time of Insertion: 00:00 Data : 08/07/20 03:25 08/07/20 03:25 Micro: Microbiology 08/02/20 14:23 Urine Culture - Final Urine Catheterized Enterococcus faecalis A&P Additional A&P Information 1. ANSON on CKD stage 4 - likely pre-renal earlier in admission - creatinine remains poor but stable - no indication for dialysis at this time - am labs - diuretics are on hold - avoid the usuals 2. COVID pneumonitis - Dexamethasone - O2 requirements coming down 3. Anemia - receiving PRBCs 4. Nausea on Reglan/Zofran 5. Depression; will add lala Watkins MD Nephrology [phone] Patient seen and examined via telemedicine, with the assistance of the bedside RN Attestations Medical Necessity Statement*: Eval for ANSON Coding Level of Care Code Acute Environmental Education Specialist for [facility]
[2020-08-07] MEDS: metoclopramide 5 mg/mL SDV 2 mL IVP (14:48)
--- NOTE | 2020-08-07 15:33 | PC.NURSE ---
patient lethargic and nauseated all day, poor affect, no direct eye contact, not drinking, recieved blood and tolerated well. refused to get to chair , we gave her reglan and lay her on her side.
[2020-08-07 17:05] LABS: Glucose Point of Care 93 mg/dL (70-110)
[2020-08-07 17:56] LABS: Hematocrit 31.1 % (37.0-47.0); Hemoglobin 10.5 g/dL (11.5-15.3)
[2020-08-07 18:34] LABS: Alanine Aminotransferase 62 U/L (0-33); Albumin Level 3.1 g/dL (3.5-5.2); Alkaline Phosphatase 65 IU/L (35-105); Anion Gap 15.5 (5-19); Aspartate Amino Transferase 58 U/L (0-32); Blood Urea Nitrogen 70 mg/dL (8-23); Calcium 8.6 mg/dL (8.5-10.5); Carbon Dioxide 20 mmol/L (22-29); Chloride 101 mmol/L (98-107); Globulin 2.4 g/dL (1.3-4.6); Glucose 94 mg/dL (65-115); Osmolality Calculated 294 mOsm/kg (285-295); Potassium 4.5 mmol/L (3.5-5.1); Sodium 132 mmol/L (136-145); Total Bilirubin 0.6 mg/dL (0.15-1.2); Total Protein 5.5 g/dL (6.6-8.7)
[2020-08-07 20:13] LABS: Glucose Point of Care 86 mg/dL (70-110)
[2020-08-07] MEDS: doxazosin 1 mg Tablet 2 MG PO (20:37)
[2020-08-07] MEDS: mirtazapine 15 mg Tablet PO (20:38)
[2020-08-08] VITALS (32 sets, daily range): BP systolic 95–166; BP diastolic 51–107; PULSE 77–126; RESP 6–21; TEMP 36.1–36.9; O2SAT 85–98
[2020-08-08 03:58] LABS: Basophils % 0.2 %; Hematocrit 30.1 % (37.0-47.0); Hemoglobin 10.1 g/dL (11.5-15.3); Lymphocytes # 0.8 10^3/uL (0.8-4.8); Lymphocytes % 5.9 %; Mean Corpuscular HGB Conc 33.6 g/dL (30.0-36.0); Mean Corpuscular Hemoglobin 29.4 pg (28.0-34.0); Mean Corpuscular Volume 87.5 fL (81-99); Mean Platelet Volume 10.9 fL (7.4-10.4); Monocytes # 0.7 10^3/uL (0.2-0.9); Neutrophils % 85.8 %; Nucleated Red Blood Cells % 0.2 %; Platelet Count 231 10^3/cmm (130-400); Red Blood Count 3.44 10^6/uL (4.1-5.3); Red Cell Distribution Width 13.1 % (12.1-15.1); White Blood Count 13.3 10^3/uL (4.0-10.0)
[2020-08-08 04:17] LABS: C Reactive Protein 16.1 mg/L (0.0-4.9)
[2020-08-08 04:21] LABS: Lactic Sepsis W/Reflex 0.8 mmol/L (0.5-2.2)
[2020-08-08 04:31] LABS: Procalcitonin 0.16 ng/mL (0-0.5)
[2020-08-08 04:44] LABS: Alkaline Phosphatase 61 IU/L (35-105); Anion Gap 16.4 (5-19); Calcium 8.6 mg/dL (8.5-10.5); Chloride 103 mmol/L (98-107); Globulin 2.6 g/dL (1.3-4.6); Glucose 71 mg/dL (65-115); Potassium 4.4 mmol/L (3.5-5.1); Total Bilirubin 0.4 mg/dL (0.15-1.2)
--- NOTE | 2020-08-08 04:58 | PC.NURSE ---
CRITICAL LAB: NURSE NOTE: TOTAL CK CALLED PER SOHEILA IN LAB AT THIS TIME = 516. THIS IS DOWN FROM 896 ON 08/07/20. PHYSICIAN NOT NOTIFIED AT THIS TIME BECAUSE LAB VALUE IMPROVED.
[2020-08-08 04:59] LABS: Alanine Aminotransferase 61 U/L (0-33); Aspartate Amino Transferase 55 U/L (0-32); Blood Urea Nitrogen 67 mg/dL (8-23); Carbon Dioxide 19 mmol/L (22-29); Magnesium 2.5 mg/dL (1.7-2.3); Osmolality Calculated 296 mOsm/kg (285-295); Sodium 134 mmol/L (136-145)
[2020-08-08 05:00] LABS: Albumin Level 2.8 g/dL (3.5-5.2); Creatine Phosphokinase 516 U/L (26-192); NT Pro B Type Natriuretic Pept 10452 pg/mL (0-450); Total Protein 5.4 g/dL (6.6-8.7)
[2020-08-08] MEDS: dilTIAZem 30 mg Tablet PO ×4 (05:24→23:27)
[2020-08-08 06:00] LABS: Glucose Point of Care 75 mg/dL (70-110)
[2020-08-08] MEDS: dexamethasone 4 mg/mL INJ 6 MG IVP (08:04)
[2020-08-08] MEDS: pantoprazole DR 40 mg Tablet PO ×2 (08:06→20:36)
[2020-08-08] MEDS: aspirin 81 mg EC Tablet PO (09:21)
[2020-08-08] MEDS: levothyroxine 150 mcg Tablet 75 MCG PO (09:22)
[2020-08-08] MEDS: docusate sodium 100 mg Capsule PO (09:22)
[2020-08-08] MEDS: ferrous sulfate EC 325 mg Tablet PO (09:22)
[2020-08-08] MEDS: omega-3 fatty acids 1,000 mg Capsule 1000 MG PO (09:23)
[2020-08-08] MEDS: metoprolol succinate ER (24 HR) 100 mg Tablet PO (09:28)
[2020-08-08 09:34] LABS: Glucose Point of Care 88 mg/dL (70-110)
[2020-08-08 11:22] LABS: Glucose Point of Care 130 mg/dL (70-110)
--- NOTE | 2020-08-08 12:27 | P.PN_ITS ---
Subjective Subjective: Interval history: This morning patient was examined, she is in better spirits, no fevers, no chills, no nausea, vomiting, is on room air, has fairly good urine output, no bloody or black stools, no hemodynamic compromised Vitals/I&O/Wt Last Vital Signs Temp 98.3 F 08/08/20 12:00 Pulse 113 H 08/08/20 09:00 Resp 13 08/08/20 09:00 BP 159/96 08/08/20 09:00 Pulse Ox 95 08/08/20 09:00 08/07/20 08/08/20 08/08/20 22:59 06:59 14:59 Intake Total 100 / 750 140 / 890 140 / 140 Output Total 700 / 1400 600 / 2000 300 / 300 Balance -600 / -650 -460 / -1110 -160 / -160 Weight last 48 hrs Weight 89.902 kg Physical Exam Const: COMMON NORMALS: no acute distress and patient oriented x3 HENMT: COMMON NORMALS: normocephalic HEAD & SCALP: normocephalic Neck/C-Spine: COMMON NORMALS: no JVD Resp: COMMON NORMALS: normal respiratory effort, No retractions, No use of ac cessory muscles and clear to auscultation bilaterally AUSCULTATION: clear to auscultation bilaterally Cardio: COMMON NORMALS: no JVD, regular rate, regular rhythm, S1 normal heart sound present and S2 normal heart sound present RATE: regular rate RHYTHM: regular rhythm HEART SOUNDS: S1 normal heart sound present and S2 normal heart sound present GI: COMMON NORMALS: Normal to inspection, nondistended, normoactive bowel sounds present, Soft to palpation, non-tender, No hepatosplenomegaly present, no masses and no bruits PALPATION: Yes Soft to palpation and Yes No hepatosplenomegaly present Extremity: COMMON NORMALS: capillary refill normal, no clubbing, cyanosis or edema, no calf tenderness and no pedal edema Neuro: COMMON NORMALS: patient oriented x3 Psych: COMMON NORMALS: mental status grossly normal Urinary Catheter Management^: 2-way Urethral: Cath Placed During This Visit: yes Reason for Continuing Indwelling Catheter: Accurate Measurement of Urinary Output in Critically Ill Patients Urinary Catheter Date of Insertion: 08/03/20 Urinary Catheter Time of Insertion: 00:00 Data : 08/08/20 03:00 08/08/20 03:00 Micro: Microbiology 08/02/20 17:18 Blood Culture - Final Blood NO GROWTH AFTER 5 DAYS 08/02/20 17:24 Blood Culture - Final Blood NO GROWTH AFTER 5 DAYS A&P Assessment and plan (1) Acute respiratory failure with hypoxia: -Admit to viral ICU -Oxygen protocol -Advair, albuterol -Remdesivir, day 3 of 5, currently on hold due to GFR less than 30 -Decadron -Levaquin 500 mg daily, every 48 hours, urine culture showing Enterococcus, sensitive to Levaquin -Monitor respiratory status closely -Currently a full code -From a respiratory standpoint, she is doing quite well Status: Acute (2) Encephalopathy acute: -Secondary to COVID-19 pneumonia, resolved Status: Acute (3) Pneumonia due to COVID-19 virus: Status: Acute (4) HTN (hypertension): Status: Acute (5) CHF (congestive heart failure): Has a history of diastolic heart failure, last echo on 12/08/2018 showed EF of 65%, no regional wall motion abnormalities -Did have a cardiac stress test on March 2019 which showed myocardial perfusion imaging revealing a small area of reversible defect in the apical inferior wall region, suggestive of ischemia in the distribution of the distal right coronary artery, EF of 72%, left ventricular wall motion analysis reveals mild hypokinesia of the left ventricular apex -No complaints of chest pain -Echocardiogram shows EF of 65%, no regional wall motion abnormalities Status: Acute (6) CKD (chronic kidney disease): Status: Acute (7) Diabetes: Appetite improving, nausea is improving Moderate dose sliding scale Levemir to 20 units twice daily on hold due to hypoglycemia Status: Acute (8) Hypothyroidism: Continue levothyroxine Status: Inactive (9) Acute on chronic anemia: -Hemoglobin 10.2 no hemodynamic compromise, no complaints of bloody or black stools -Likely secondary to bone marrow suppression, COVID-19, sepsis, renal failure -stool studies -Status post 2 units PRBC, no overt signs of bleeding -Carefully reinstitute Lovenox today Status: Acute (10) Hyponatremia: Likely hypovolemic hyponatremia, currently sodium 134, continue to monitor Status: Acute (11) Acute kidney injury superimposed on CKD: Creatinine 2. 2.6, baseline 2-2.1, likely prerenal secondary to dehydration -Urine output 2300 cc yesterday, -Hold all nephrotoxic agents -Nephrology consulted -Fluids on hold, monitor urine output, monitor creatinine Status: Acute (12) Transaminitis: Secondary to COVID-19 Status: Acute (13) Atrial fibrillation with RVR: -Is on metoprolol 100 mg daily, continue -Did not respond to amiodarone 200 mg, I am worried about QTC prolongation given remdesivir, hold off on further amnio -Started her on Cardizem 30 every 6 hours, seems to do the trick, heart rates in the 90s, A. fib -Heparin drip on hold -Echo shows EF of 65%, no regional wall motion abnormalities Status: Acute Additional A&P Information Plan for today get out of bed, reinstitute Lovenox, monitor hemoglobin, monitor heart rate, monitor respiratory status, monitor urine output, hopefully can be discharged in the next 48 hours Attestations Medical Necessity Statement*: Patient requires hospitalization for acute respiratory failure secondary COVID-19, with secondary complications of anemia, acute renal failure Coding Level of Care Code Acute Retail Operations Specialist for [facility] Diagnoses Acute respiratory failure with hypoxia J96.01 Encephalopathy acute G93.40 Pneumonia due to COVID-19 virus U07.1; J12.89 HTN (hypertension) I10 CHF (congestive heart failure) I50.9 CKD (chronic kidney disease) N18.9 Diabetes E11.9 Hypothyroidism E03.9 Acute on chronic anemia D64.9 Hyponatremia E87.1 Acute kidney injury superimposed on CKD N17.9; N18.9 Transaminitis R74.01 Atrial fibrillation with RVR I48.91
--- NOTE | 2020-08-08 12:37 | P.PN_ITS ---
Subjective Subjective: Interval history: She feels significantly better. Yesterday I did start Remeron for depression. It gave her good night sleep and she does have much better spirits. Minimal global edema. She is making robust amounts of urine. She is breathing comfortably on room air. Medications: Reviewed: Yes Medication Review Details: Current Medications Acetaminophen (Acetaminophen 325 Mg Tablet) 650 mg PO Q6H PRN PRN Reason: Mild/Mod Pain Or Temp >/= 101 Last Admin: 08/02/20 21:22 Dose: 650 mg Documented by: Albuterol Sulfate (Albuterol 8 Gm Mdi) 1 puff INHALATION Q4H.RESPIRATORY [facility] Last Admin: 08/06/20 04:15 Dose: 1 puff Documented by: Aspirin (Aspirin 81 Mg Ec Tablet) 81 mg PO DAILY [facility] Last Admin: 08/05/20 08:59 Dose: 81 mg Documented by: Atorvastatin Calcium (Atorvastatin 40 Mg Tablet) 20 mg PO DAILY [facility] Last Admin: 08/05/20 08:59 Dose: 20 mg Documented by: Dexamethasone (Dexamethasone 4 Mg/Ml Inj) 6 mg IVP Q24H [facility] Last Admin: 08/05/20 09:00 Dose: 6 mg Documented by: Dextrose (Dextrose 50% Syringe 50 Ml) 25 ml IVP ONCE PRN; Protocol PRN Reason: hypoglycemia protocol Dextrose (Dextrose 50% Syringe 50 Ml) 50 ml IVP PRN PRN; Protocol PRN Reason: hypoglycemia protocol Diltiazem HCl (Diltiazem 30 Mg Tablet) 30 mg PO Q6H [facility] Last Admin: 08/06/20 06:06 Dose: 30 mg Documented by: Docusate Sodium (Docusate Sodium 100 Mg Capsule) 100 mg PO DAILY [facility] Last Admin: 08/05/20 08:59 Dose: 100 mg Documented by: Doxazosin Mesylate (Doxazosin 1 Mg Tablet) 2 mg PO BEDTIME [facility] Last Admin: 08/05/20 20:22 Dose: 2 mg Documented by: Ferrous Sulfate (Ferrous Sulfate Ec 325 Mg Tablet) 325 mg PO BID [facility] Last Admin: 08/05/20 17:07 Dose: 325 mg Documented by: Glucagon (Glucagon 1 Mg/Ml Inj 1 Ml) 1 mg IM ONCE PRN; Protocol PRN Reason: Adult Acute Hypoglycemia Prot. Heparin Sodium (Beef Lung) (Heparin 5,000 Unit/Ml Inj 1 Ml) 0 unit IV PRN PRN; Protocol PRN Reason: Heparin weight-base protocol Levofloxacin/Dextrose (Levaquin-D5w) 500 mg in 100 mls @ 100 mls/hr IV Q48H [facility] Last Infusion: 08/05/20 11:18 Dose: Infused Documented by: Dextrose (D5w) 500 mls @ 100 mls/hr IV ONCE PRN; Protocol PRN Reason: Adult Acute Hypoglycemia Prot Heparin Sodium/Sodium Chloride (Heparin Drip) 25,000 unit in 500 mls @ 0 mls/hr IV .Q0M NIKO; Protocol Last Titration: 08/05/20 22:20 Dose: 13.85 unit/kg/hr, 23 mls/hr Documented by: Sodium Bicarbonate 75 meq/ (Sodium Chloride) 1,000 mls @ 100 mls/hr IV .Q10H [facility] Last Admin: 08/05/20 21:47 Dose: 100 mls/hr Documented by: Insulin Aspart (Insulin Aspart 100 Unit/1 Ml) 0 unit SUBCUT TIDWM [facility]; Protocol Last Admin: 08/05/20 17:18 Dose: Not Given Documented by: Insulin Detemir (Insulin Detemir 100 Units/1 Ml) 15 unit SUBCUT Q12H [facility] Last Admin: 08/05/20 22:06 Dose: 15 unit Documented by: Levothyroxine Sodium (Levothyroxine 150 Mcg Tablet) 75 mcg PO DAILY [facility] Last Admin: 08/05/20 09:01 Dose: 75 mcg Documented by: Metoprolol Succinate (Metoprolol Succinate Er (24 Hr) 100 Mg Tablet) 100 mg PO DAILY [facility] Last Admin: 08/05/20 09:02 Dose: 100 mg Documented by: Non-Formulary Medication (Coenzyme Q10 [Coq-10]) 100 mg PO DAILY [facility] Last Admin: 08/05/20 09:03 Dose: Not Given Documented by: Non-Formulary Medication (Dyphbexepbhe-Gpblvoeg-Txcoho) 1 tab PO DAILY [facility] Last Admin: 08/05/20 09:03 Dose: Not Given Documented by: [id number] Ethyl Esters ([place]-3 Fatty Acids 1,000 Mg Capsule) 1,000 mg PO DAILY [facility] Last Admin: 08/05/20 09:02 Dose: 1,000 mg Documented by: Ondansetron HCl (Ondansetron 2 Mg/Ml Sdv 2 Ml) 4 mg IVP Q8H PRN PRN Reason: vomiting, or N/V if npo Last Admin: 08/05/20 00:14 Dose: 4 mg Documented by: Ondansetron HCl (Ondansetron 2 Mg/Ml Sdv 2 Ml) 4 mg IVP Q4H PRN PRN Reason: NAUSEA AND VOMITING Last Admin: 08/05/20 15:55 Dose: 4 mg Documented by: Pantoprazole Sodium (Pantoprazole Dr 40 Mg Tablet) 40 mg PO Q12H [facility] Fluticasone/Salmeterol (Fluticasone-Salmeterol 250-50 Diskus) 1 puff INHALATION BID.RESPIRATORY [facility] Last Admin: 08/05/20 20:14 Dose: 1 puff Documented by: Vitals/I&O/Wt Last Vital Signs Temp 98.3 F 08/08/20 12:00 Pulse 113 H 08/08/20 09:00 Resp 13 08/08/20 09:00 BP 159/96 08/08/20 09:00 Pulse Ox 95 08/08/20 09:00 08/07/20 08/08/20 08/08/20 22:59 06:59 14:59 Intake Total 100 / 750 140 / 890 140 / 140 Output Total 700 / 1400 600 / 2000 300 / 300 Balance -600 / -650 -460 / -1110 -160 / -160 Weight last 48 hrs Weight 89.902 kg Physical Exam Narrative: EXAM NARRATIVE: Constitutional: Awake HEENT: Wet mucosa, no jvp, non icteric Lungs: Bilaterally clear without discernible wheeze, rales in all lung zones CVS: S1 S2, no murmurs Abdo: Soft, BS ok Ext 4: Minimal edema, peripheral perfusion with no cyanosis Neurological: Grossly non-focal Urinary Catheter Management^: 2-way Urethral: Cath Placed During This Visit: yes Reason for Continuing Indwelling Catheter: Accurate Measurement of Urinary Output in Critically Ill Patients Urinary Catheter Date of Insertion: 08/03/20 Urinary Catheter Time of Insertion: 00:00 Data : 08/08/20 03:00 08/08/20 03:00 Micro: Microbiology 08/02/20 17:18 Blood Culture - Final Blood NO GROWTH AFTER 5 DAYS 08/02/20 17:24 Blood Culture - Final Blood NO GROWTH AFTER 5 DAYS A&P Additional A&P Information 1. ANSON on CKD stage 4 - likely pre-renal earlier in admission - creatinine remains poor but stable - no indication for dialysis at this time - am labs - diuretics are on hold - avoid the usuals 2. COVID pneumonitis - Dexamethasone - O2 requirements coming down 3. Anemia - s/p PRBCs 4. Nausea on Reglan/Zofran 5. Depression; helped with lala Watkins MD Nephrology [phone] Patient seen and examined via telemedicine, with the assistance of the bedside RN Attestations Medical Necessity Statement*: Evaluation and management of chronic kidney disease with acute component Coding Level of Care Code Acute Textile Chemist for [facility]
[2020-08-08] MEDS: enoxaparin 100 mg/mL Syringe 90 MG SUBCUT (13:11)
[2020-08-08 16:16] LABS: Glucose Point of Care 214 mg/dL (70-110)
[2020-08-08] MEDS: levofloxacin-dextrose 5 % 500 MG/100 ML PREMIX 100 MG IV (16:36)
[2020-08-08] MEDS: albuterol 8 gm MDI 1 PUFF INHALATION (19:37)
[2020-08-08 19:55] LABS: Glucose Point of Care 261 mg/dL (70-110)
[2020-08-08] MEDS: mirtazapine 15 mg Tablet PO (20:36)
[2020-08-08] MEDS: doxazosin 1 mg Tablet 2 MG PO (20:36)
--- NOTE | 2020-08-08 23:28 | PC.NURSE ---
NURSING NOTE: ELEVATED HEART RATE: AT APPROXIMATELY 2320, PT'S HEART RATE PERIODICALLY ELEVATING INTO [id number]'S-140'S. AFIB ON THE MONITOR. DENIES CHEST PAIN, DIZZINESS, OR PALPITATIONS. MIDNIGHT CARDIZEM GIVEN PO AT THIS TIME. WILL CONTINUE TO MONITOR. SEE CHART FOR ALL VS AND ASSESSMENTS.
[2020-08-09] VITALS (27 sets, daily range): BP systolic 88–175; BP diastolic 58–129; PULSE 87–142; RESP 9–21; TEMP 36.6–36.8; O2SAT 79–97
[2020-08-09 02:41] LABS: Basophils % 0.1 %; Hematocrit 30.5 % (37.0-47.0); Hemoglobin 9.9 g/dL (11.5-15.3); Lymphocytes # 0.7 10^3/uL (0.8-4.8); Lymphocytes % 4.9 %; Mean Corpuscular HGB Conc 32.5 g/dL (30.0-36.0); Mean Corpuscular Hemoglobin 29.5 pg (28.0-34.0); Mean Corpuscular Volume 90.8 fL (81-99); Mean Platelet Volume 10.6 fL (7.4-10.4); Monocytes # 0.7 10^3/uL (0.2-0.9); Neutrophils # 12.24 10^3/uL (1.8-7.7); Neutrophils % 84.7 %; Nucleated Red Blood Cells % 0 %; Platelet Count 258 10^3/cmm (130-400); Red Blood Count 3.36 10^6/uL (4.1-5.3); Red Cell Distribution Width 13.2 % (12.1-15.1); White Blood Count 14.5 10^3/uL (4.0-10.0)
[2020-08-09 03:03] LABS: Alanine Aminotransferase 49 U/L (0-33); Albumin Level 2.9 g/dL (3.5-5.2); Alkaline Phosphatase 62 IU/L (35-105); Anion Gap 18.7 (5-19); Aspartate Amino Transferase 22 U/L (0-32); Blood Urea Nitrogen 63 mg/dL (8-23); Calcium 8.6 mg/dL (8.5-10.5); Carbon Dioxide 18 mmol/L (22-29); Chloride 101 mmol/L (98-107); Globulin 2.4 g/dL (1.3-4.6); Glucose 257 mg/dL (65-115); Magnesium 2.4 mg/dL (1.7-2.3); Osmolality Calculated 303 mOsm/kg (285-295); Phosphorus 4.1 mg/dL (2.5-4.5); Potassium 4.7 mmol/L (3.5-5.1); Sodium 133 mmol/L (136-145); Total Bilirubin 0.5 mg/dL (0.15-1.2); Total Protein 5.3 g/dL (6.6-8.7)
[2020-08-09 03:15] LABS: Slide Review Slide Review Perform
--- NOTE | 2020-08-09 04:56 | PC.NURSE ---
NURSING NOTE: RAPID HEART RATE: AT APPROXIMATELY 2200 THIS SHIFT, PT'S HEART RATE IN THE 120'S, OCCASSIONALLY ELEVATING TO 150'S - 160'S. TALKED TO DR. CASAS IN THE VICU AND NOTIFIED HIM OF PT'S HEART RATE AND THAT PT DENIES PAIN, DIZZINESS, OR PALPITATIONS. NO NEW ORDERS RECEIVED AT THIS TIME.
[2020-08-09 06:28] LABS: Glucose Point of Care 250 mg/dL (70-110)
[2020-08-09] MEDS: pantoprazole DR 40 mg Tablet PO ×2 (07:13→20:28)
[2020-08-09] MEDS: dilTIAZem 30 mg Tablet PO (07:13)
[2020-08-09] MEDS: dexamethasone 4 mg/mL INJ 6 MG IVP (07:54)
[2020-08-09] MEDS: ferrous sulfate EC 325 mg Tablet PO (08:00)
[2020-08-09] MEDS: docusate sodium 100 mg Capsule PO (08:00)
[2020-08-09] MEDS: levothyroxine 150 mcg Tablet 75 MCG PO (08:00)
[2020-08-09] MEDS: aspirin 81 mg EC Tablet PO (08:00)
[2020-08-09] MEDS: metoprolol succinate ER (24 HR) 100 mg Tablet PO (08:00)
[2020-08-09 11:53] LABS: Glucose Point of Care 133 mg/dL (70-110)
[2020-08-09] MEDS: enoxaparin 100 mg/mL Syringe 90 MG SUBCUT (12:29)
[2020-08-09] MEDS: dilTIAZem 60 mg Tablet PO ×2 (12:30→18:07)
--- NOTE | 2020-08-09 12:31 | PM.PN ---
Subjective Subjective: Interval history: She feels pretty well, sleeping comfortably when rounding. Minimal global edema. She is making robust amounts of urine. She is breathing comfortably on room air. No uremic Sx. Good urine output Medications: Reviewed: Yes Medication Review Details: Current Medications Acetaminophen (Acetaminophen 325 Mg Tablet) 650 mg PO Q6H PRN PRN Reason: Mild/Mod Pain Or Temp >/= 101 Last Admin: 08/02/20 21:22 Dose: 650 mg Documented by: Albuterol Sulfate (Albuterol 8 Gm Mdi) 1 puff INHALATION Q4H.RESPIRATORY [facility] Last Admin: 08/06/20 04:15 Dose: 1 puff Documented by: Aspirin (Aspirin 81 Mg Ec Tablet) 81 mg PO DAILY [facility] Last Admin: 08/05/20 08:59 Dose: 81 mg Documented by: Atorvastatin Calcium (Atorvastatin 40 Mg Tablet) 20 mg PO DAILY [facility] Last Admin: 08/05/20 08:59 Dose: 20 mg Documented by: Dexamethasone (Dexamethasone 4 Mg/Ml Inj) 6 mg IVP Q24H [facility] Last Admin: 08/05/20 09:00 Dose: 6 mg Documented by: Dextrose (Dextrose 50% Syringe 50 Ml) 25 ml IVP ONCE PRN; Protocol PRN Reason: hypoglycemia protocol Dextrose (Dextrose 50% Syringe 50 Ml) 50 ml IVP PRN PRN; Protocol PRN Reason: hypoglycemia protocol Diltiazem HCl (Diltiazem 30 Mg Tablet) 30 mg PO Q6H [facility] Last Admin: 08/06/20 06:06 Dose: 30 mg Documented by: Docusate Sodium (Docusate Sodium 100 Mg Capsule) 100 mg PO DAILY [facility] Last Admin: 08/05/20 08:59 Dose: 100 mg Documented by: Doxazosin Mesylate (Doxazosin 1 Mg Tablet) 2 mg PO BEDTIME [facility] Last Admin: 08/05/20 20:22 Dose: 2 mg Documented by: Ferrous Sulfate (Ferrous Sulfate Ec 325 Mg Tablet) 325 mg PO BID [facility] Last Admin: 08/05/20 17:07 Dose: 325 mg Documented by: Glucagon (Glucagon 1 Mg/Ml Inj 1 Ml) 1 mg IM ONCE PRN; Protocol PRN Reason: Adult Acute Hypoglycemia Prot. Heparin Sodium (Beef Lung) (Heparin 5,000 Unit/Ml Inj 1 Ml) 0 unit IV PRN PRN; Protocol PRN Reason: Heparin weight-base protocol Levofloxacin/Dextrose (Levaquin-D5w) 500 mg in 100 mls @ 100 mls/hr IV Q48H [facility] Last Infusion: 08/05/20 11:18 Dose: Infused Documented by: Dextrose (D5w) 500 mls @ 100 mls/hr IV ONCE PRN; Protocol PRN Reason: Adult Acute Hypoglycemia Prot Heparin Sodium/Sodium Chloride (Heparin Drip) 25,000 unit in 500 mls @ 0 mls/hr IV .Q0M NIKO; Protocol Last Titration: 08/05/20 22:20 Dose: 13.85 unit/kg/hr, 23 mls/hr Documented by: Sodium Bicarbonate 75 meq/ (Sodium Chloride) 1,000 mls @ 100 mls/hr IV .Q10H [facility] Last Admin: 08/05/20 21:47 Dose: 100 mls/hr Documented by: Insulin Aspart (Insulin Aspart 100 Unit/1 Ml) 0 unit SUBCUT TIDWM [facility]; Protocol Last Admin: 08/05/20 17:18 Dose: Not Given Documented by: Insulin Detemir (Insulin Detemir 100 Units/1 Ml) 15 unit SUBCUT Q12H [facility] Last Admin: 08/05/20 22:06 Dose: 15 unit Documented by: Levothyroxine Sodium (Levothyroxine 150 Mcg Tablet) 75 mcg PO DAILY [facility] Last Admin: 08/05/20 09:01 Dose: 75 mcg Documented by: Metoprolol Succinate (Metoprolol Succinate Er (24 Hr) 100 Mg Tablet) 100 mg PO DAILY [facility] Last Admin: 08/05/20 09:02 Dose: 100 mg Documented by: Non-Formulary Medication (Coenzyme Q10 [Coq-10]) 100 mg PO DAILY [facility] Last Admin: 08/05/20 09:03 Dose: Not Given Documented by: Non-Formulary Medication (Gsmoamqrqxsk-Jjzxzpbw-Cxdufr) 1 tab PO DAILY [facility] Last Admin: 08/05/20 09:03 Dose: Not Given Documented by: [id number] Ethyl Esters ([place]-3 Fatty Acids 1,000 Mg Capsule) 1,000 mg PO DAILY [facility] Last Admin: 08/05/20 09:02 Dose: 1,000 mg Documented by: Ondansetron HCl (Ondansetron 2 Mg/Ml Sdv 2 Ml) 4 mg IVP Q8H PRN PRN Reason: vomiting, or N/V if npo Last Admin: 08/05/20 00:14 Dose: 4 mg Documented by: Ondansetron HCl (Ondansetron 2 Mg/Ml Sdv 2 Ml) 4 mg IVP Q4H PRN PRN Reason: NAUSEA AND VOMITING Last Admin: 08/05/20 15:55 Dose: 4 mg Documented by: Pantoprazole Sodium (Pantoprazole Dr 40 Mg Tablet) 40 mg PO Q12H [facility] Fluticasone/Salmeterol (Fluticasone-Salmeterol 250-50 Diskus) 1 puff INHALATION BID.RESPIRATORY [facility] Last Admin: 08/05/20 20:14 Dose: 1 puff Documented by: Vitals/I&O/Wt Last Vital Signs Temp 98.0 F 08/09/20 04:00 Pulse 112 H 08/09/20 08:53 Resp 18 08/09/20 08:53 BP 148/78 08/09/20 08:00 Pulse Ox 93 08/09/20 08:53 08/08/20 08/09/20 08/09/20 22:59 06:59 14:59 Intake Total 240 / 620 540 / 1160 200 / 200 Output Total 300 / 600 700 / 1300 Balance - / 20 -160 / -140 200 / 200 Weight last 48 hrs Weight 85.23 kg Weight 89.902 kg Physical Exam Narrative: EXAM NARRATIVE: Constitutional: sleeping, comfortable HEENT: Wet mucosa, no jvp, non icteric Lungs: Bilaterally clear without discernible wheeze, rales in all lung zones CVS: S1 S2, no murmurs Abdo: Soft, BS ok Ext 4: Minimal edema, peripheral perfusion with no cyanosis Neurological: Grossly non-focal Urinary Catheter Management^: 2-way Urethral: Cath Placed During This Visit: yes Reason for Continuing Indwelling Catheter: Accurate Measurement of Urinary Output in Critically Ill Patients Urinary Catheter Date of Insertion: 08/03/20 Urinary Catheter Time of Insertion: 00:00 Data : 08/09/20 02:15 08/09/20 02:15 A&P Additional A&P Information 1. ANSON on CKD stage 4 - likely pre-renal earlier in admission - creatinine improving towards her baseline - urine output remains robust - no indication for dialysis at this time - am labs - diuretics are on hold - avoid the usuals 2. COVID pneumonitis - Dexamethasone - O2 requirements coming down 3. Anemia - s/p PRBCs 4. Nausea on Reglan/Zofran 5. Depression; helped with remeron Renal issue stable, renal function now back to baseline, for follow up with outpatient team in next 2-3 weeks Will sign off at this time, please call with concerns, thank you Mann Watkins MD Nephrology [phone] Patient seen and examined via telemedicine, with the assistance of the bedside RN Attestations Medical Necessity Statement*: eval for ANSON Coding Level of Care Code Acute Vehicle Safety Inspector for [facility]
--- NOTE | 2020-08-09 13:09 | XR_ITS ---
WS: [id number] Exam: XR chest 1V portable [id number] Date/Time of Exam: 08/09/2020 1:09 PM Reason For Exam: sob Comparison 08/05/2020. Bilateral pulmonary infiltrates continue to clear. The lungs are fully expanded. Normal cardiomediast inal silhouette. No pleural effusions. Bony elements are intact. XR/XR chest 1V portable [id number] IMPRESSION: 1. Improving bilateral infiltrates.
--- NOTE | 2020-08-09 13:09 | P.PN_ITS ---
Subjective Subjective: Interval history: This morning patient was examined, no chest pain, no shortness of breath, no fevers, chills, no lightheadedness, she is put back on 2 L nasal cannula, did have A. fib events overnight, Vitals/I&O/Wt Last Vital Signs Temp 98.2 F 08/09/20 12:00 Pulse 118 H 08/09/20 12:00 Resp 21 H 08/09/20 12:00 BP 155/80 08/09/20 12:00 Pulse Ox 87 L 08/09/20 12:00 08/08/20 08/09/20 08/09/20 22:59 06:59 14:59 Intake Total 240 / 620 540 / 1160 400 / 400 Output Total 300 / 600 700 / 1300 500 / 500 Balance -60 / 20 -160 / -140 -100 / -100 Weight last 48 hrs Weight 85.23 kg Weight 89.902 kg Physical Exam Const: COMMON NORMALS: no acute distress and patient oriented x3 HENMT: COMMON NORMALS: normocephalic HEAD & SCALP: normocephalic Neck/C-Spine: COMMON NORMALS: no JVD Resp: COMMON NORMALS: normal respiratory effort, No retractions and No use of accessory muscles AUSCULTATION: crackles Cardio: COMMON NORMALS: no JVD, regular rate, regular rhythm, S1 normal heart sound present and S2 normal heart sound present RATE: regular rate RHYTHM: regular rhythm HEART SOUNDS: S1 normal heart sound present and S2 normal heart sound present GI: COMMON NORMALS: Normal to inspection, nondistended, normoactive bowel sounds present, Soft to palpation, non-tender, No hepatosplenomegaly present, no masses and no bruits PALPATION: Yes Soft to palpation and Yes No hepatosplenomegaly present Extremity: COMMON NORMALS: capillary refill normal, no clubbing, cyanosis or edema, no calf tenderness and no pedal edema Neuro: COMMON NORMALS: patient oriented x3 Psych: COMMON NORMALS: mental status grossly normal Urinary Catheter Management^: 2-way Urethral: Cath Placed During This Visit: yes Reason for Continuing Indwelling Catheter: Accurate Measurement of Urinary Output in Critically Ill Patients Urinary Catheter Date of Insertion: 08/03/20 Urinary Catheter Time of Insertion: 00:00 Data : 08/09/20 02:15 08/09/20 02:15 A&P Assessment and plan (1) Acute respiratory failure with hypoxia: -Admit to viral ICU -Oxygen protocol -Advair, albuterol -Remdesivir, day 3 of 5, currently on hold due to GFR less than 30, we will continue to hold -Decadron -Levaquin 500 mg daily, every 48 hours, urine culture showing Enterococcus, sensitive to Levaquin, stop Levaquin tomorrow -Monitor respiratory status closely -Currently a full code -Today has crackles on lung exam, requiring up to 2 L, will give 20 mg IV Lasix, do a chest x-ray Status: Acute (2) Encephalopathy acute: -Secondary to COVID-19 pneumonia, resolved Status: Acute (3) Pneumonia due to COVID-19 virus: Status: Acute (4) HTN (hypertension): Status: Acute (5) CHF (congestive heart failure): Has a history of diastolic heart failure, last echo on 12/08/2018 showed EF of 65%, no regional wall motion abnormalities -Did have a cardiac stress test on March 2019 which showed myocardial perfusion imaging revealing a small area of reversible defect in the apical inferior wall region, suggestive of ischemia in the distribution of the distal right coronary artery, EF of 72%, left ventricular wall motion analysis reveals mild hypokinesia of the left ventricular apex -No complaints of chest pain -Echocardiogram shows EF of 65%, no regional wall motion abnormalities Status: Acute (6) CKD (chronic kidney disease): Status: Acute (7) Diabetes: Appetite improving, nausea is improving Moderate dose sliding scale Levemir to 20 units twice daily on hold due to hypoglycemia Status: Acute (8) Hypothyroidism: Continue levothyroxine Status: Inactive (9) Acute on chronic anemia: -Hemoglobin 10.2 no hemodynamic compromise, no complaints of bloody or black stools -Likely secondary to bone marrow suppression, COVID-19, sepsis, renal failure -stool studies -Status post 2 units PRBC, no overt signs of bleeding -Carefully reinstitute Lovenox today Status: Acute (10) Hyponatremia: Likely hypovolemic hyponatremia, currently sodium 134, continue to monitor Status: Acute (11) Acute kidney injury superimposed on CKD: Creatinine 2.2, baseline 2-2.1, likely prerenal secondary to dehydration -Urine output 2000 cc yesterday, -Hold all nephrotoxic agents -Nephrology consulted Status: Acute (12) Transaminitis: Secondary to COVID-19 Status: Acute (13) Atrial fibrillation with RVR: -Is on metoprolol 100 mg daily, continue -Did not respond to amiodarone 200 mg, I am worried about QTC prolongation given remdesivir, hold off on further amnio -Started her on Cardizem 30 every 6 hours, had episode of A. fib with RVR overnight, increased to 60 mg every 6 hours, consult cardiology -Therapeutic Lovenox -Echo shows EF of 65%, no regional wall motion abnormalities Status: Acute Additional A&P Information Plan for today get out of bed, will control heart rates, monitor urine output, monitor respiratory status, 20 mg Lasix, chest x-ray Attestations Medical Necessity Statement*: Requires hospitalization for acute respiratory failure secondary to COVID-19 A. 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
--- NOTE | 2020-08-09 15:28 | PC.SOCIAL ---
IMM Updated Updated pt's spouse on Pg 2 IMM. No questions voiced. Signed,dated, & timed copy in chart.
[2020-08-09 16:41] LABS: Lactate (Lactic Acid level) 1.4 mmol/L (0.5-2.2)
[2020-08-09 17:08] LABS: Glucose Point of Care 248 mg/dL (70-110)
--- NOTE | 2020-08-09 17:28 | PM.CONSULT ---
Providers/Reason For Consult Consulting Physican/Specialty*: Dr. Egan, cardiology Reason for Consult*: Atrial fibrillation with rapid ventricular response Attending Physician: Donta Amaro MD Primary Care Provider: Mann Garduno MD History of Present Illness History of Present Illness Luiza Cooper is a 80 year old female with past medical history of hypertension, hyperlipidemia, hypothyroidism, CKD stage IV, obesity, insulin-dependent diabetes mellitus who was admitted to [facility] on 02 August with altered mental status. She was found to have COVID-19 pneumonia and was treated with remdesivir for 3 days, Decadron and Levaquin. On admission she was in sinus rhythm with PACs. On 04 August she was noted to be in atrial fibrillation with rapid ventricular response at 119 bpm. It seems like she was started on amiodarone that was subsequently stopped due to concern for QT prolongation. Her home dose of metoprolol succinate 100 mg was continued. She was also started on Cardizem 30 mg p.o. every 6 hours on which was continued until this morning. She had converted to SR and seems like this morning she was in atrial fibrillation with rapid response with heart rate in 120s and hence I was called to assist in further management. She is currently on 2-3 L of oxygen via nasal cannula. Her dose of cardizem was increased to 60 mg Po Q 6 hr. HR on telemetry has been running 90's -130's. Review of Systems General: Reports: Other (obtained from chart) Const: Denies: fever(s) ENMT: Denies: epistaxis Card: Reports: irregular heart rhythm; Denies: chest pain or edema Resp: Denies: dyspnea or hemoptysis GI: Denies: hematochezia or melena : Denies: hematuria Neuro: Denies: seizure-like activity Endo: Denies: change in body appearance Meds/Allergies Home Medications and Allergies Home Medications Medication Instructions Recorded Confirmed Last Taken Type aspirin 81 mg tablet,delayed 81 mg PO DAILY 03/15/20 08/02/20 07/31/20 History release atorvastatin 10 mg tablet 5 mg PO DAILY tab 03/15/20 08/02/20 07/30/20 History clonidine HCl 0.1 mg tablet 0.1 mg PO PRN PRN tab 03/15/20 08/02/20 Unknown History doxazosin 2 mg tablet 2 mg PO BEDTIME 03/15/20 08/02/20 07/30/20 History insulin glargine 100 unit/mL 30 unit SUBCUT BEDTIME ml 03/15/20 08/02/20 07/30/20 History subcutaneous solution 25 units insulin lispro 100 unit/mL See Rx Instructions .ROUTE .COMPLEX 03/15/20 08/02/20 07/31/20 History subcutaneous solution 5 units levothyroxine 75 mcg tablet 75 mcg PO DAILY 03/15/20 08/02/20 07/31/20 History losartan 100 mg tablet 100 mg PO DAILY 03/15/20 08/02/20 07/30/20 History metoprolol succinate 100 mg 100 mg PO DAILY 03/15/20 08/02/20 08/02/20 History tablet,extended release 24 hr omeprazole 20 mg capsule,delayed 20 mg PO DAILY 03/15/20 08/02/20 08/02/20 History release potassium chloride 10 mEq 20 meq PO DAILY tab 03/15/20 08/02/20 Unknown History tablet,extended release(part/cryst) amlodipine 5 mg tablet 10 mg PO DAILY tab 03/26/20 08/02/20 07/31/20 History coenzyme Q10 100 mg capsule 100 mg PO DAILY 03/26/20 08/02/20 07/30/20 History docusate sodium 100 mg capsule 100 mg PO DAILY 03/26/20 08/02/20 Unknown History ferrous sulfate 325 mg (65 mg 325 mg PO BID 03/26/20 08/02/20 07/31/20 History iron) tablet torsemide 20 mg tablet 20 mg PO DAILY 03/26/20 08/02/20 07/31/20 History acetaminophen [Tylenol Extra 500 - 1,000 mg PO PRN 07/31/20 08/02/20 Unknown History Strength] thnpbsosxljj-[id number]-[id number] 1 tab PO DAILY 07/31/20 08/02/20 07/31/20 History [Centrum Silver] omega-3 fatty acids [[place] 3] 1,000 mg PO DAILY 07/31/20 08/02/20 07/31/20 History turmeric root extract 500 mg PO DAILY 07/31/20 08/02/20 Unknown History levofloxacin See Rx Instructions .ROUTE .COMPLEX 08/02/20 08/02/20 08/01/20 History Allergies Allergy/AdvReac Type Severity Reaction Status Date / Time Penicillins Allergy Unknown Unknown Verified 07/31/20 13:27 Current Medications Current Medications Generic Name Dose Route Start Last Admin Trade Name Freq PRN Reason Stop Dose Admin Acetaminophen 650 mg 08/02/20 20:21 08/07/20 12:46 Acetaminophen 325 Mg Tablet PO 650 mg Q6H PRN Administration Mild/Mod Pain Or Temp >/= 101 Albuterol Sulfate 1 puff 08/07/20 13:14 08/08/20 19:37 Albuterol 8 Gm Mdi INHALATION 1 puff Q4H.RESPIRATORY PRN Administration WHEEZING Aspirin 81 mg 08/03/20 09:00 08/09/20 08:00 Aspirin 81 Mg Ec Tablet PO 81 mg DAILY NIKO Administration Atorvastatin Calcium 20 mg 08/03/20 09:00 08/05/20 08:59 Atorvastatin 40 Mg Tablet PO 20 mg DAILY NIKO Administration Dexamethasone 6 mg 08/03/20 08:00 08/09/20 07:54 Dexamethasone 4 Mg/Ml Inj IVP 6 mg Q24H NIKO Administration Dextrose 25 ml 08/02/20 20:21 08/07/20 07:00 Dextrose 50% Syringe 50 Ml IVP 25 ml ONCE PRN Administration hypoglycemia protocol Protocol Diltiazem HCl 60 mg 08/09/20 13:00 08/09/20 12:30 Diltiazem 60 Mg Tablet PO 60 mg Q6H NIKO Administration Docusate Sodium 100 mg 08/03/20 09:00 08/09/20 08:00 Docusate Sodium 100 Mg Capsule PO 100 mg DAILY NIKO Administration Doxazosin Mesylate 2 mg 08/02/20 21:00 08/08/20 20:36 Doxazosin 1 Mg Tablet PO 2 mg BEDTIME NIKO Administration Enoxaparin Sodium 90 mg 08/08/20 13:00 08/09/20 12:29 Enoxaparin 100 Mg/Ml Syringe 1 mg/kg (90 mg) 90 mg SUBCUT Administration Q24H NIKO Ferrous Sulfate 325 mg 08/02/20 20:21 08/09/20 17:01 Ferrous Sulfate Ec 325 Mg Tablet PO Not Given BID NIKO Levofloxacin/Dextrose 500 mg in 100 mls @ 100 mls/hr 08/04/20 16:00 08/08/20 16:36 Levaquin-D5w IV 100 mls/hr Q48H NIKO Administration Insulin Aspart 0 unit 08/02/20 20:21 08/09/20 12:27 Insulin Aspart 100 Unit/1 Ml SUBCUT Not Given TIDWM NIKO Protocol Levothyroxine Sodium 75 mcg 08/03/20 09:00 08/09/20 08:00 Levothyroxine 150 Mcg Tablet PO 75 mcg DAILY NIKO Administration Metoclopramide HCl 5 mg 08/07/20 12:53 08/07/20 14:48 Metoclopramide 5 Mg/Ml Sdv 2 Ml IVP 5 mg Q6H PRN Administration NAUSEA AND VOMITING Metoprolol Succinate 100 mg 08/03/20 09:00 08/09/20 08:00 Metoprolol Succinate Er (24 Hr) 100 Mg Tablet PO 100 mg DAILY NIKO Administration Mirtazapine 15 mg 08/07/20 21:00 08/08/20 20:36 Mirtazapine 15 Mg Tablet PO 15 mg BEDTIME NIKO Administration Non-Formulary Medication 100 mg 08/03/20 09:00 08/09/20 08:13 Coenzyme Q10 [Coq-10] PO Not Given DAILY NIKO Non-Formulary Medication 1 tab 08/03/20 09:00 08/09/20 08:13 Gfacqotnqmyl-Wmdacvyq-Pqtjbs PO Not Given DAILY NIKO Cbuld-6-Qsrg Ethyl Esters 1,000 mg 08/03/20 09:00 08/09/20 08:13 [place]-3 Fatty Acids 1,000 Mg Capsule PO Not Given DAILY NIKO Ondansetron HCl 4 mg 08/02/20 20:21 08/07/20 07:32 Ondansetron 2 Mg/Ml Sdv 2 Ml IVP 4 mg Q8H PRN Administration vomiting, or N/V if npo Ondansetron HCl 4 mg 08/05/20 05:22 08/05/20 15:55 Ondansetron 2 Mg/Ml Sdv 2 Ml IVP 4 mg Q4H PRN Administration NAUSEA AND VOMITING Pantoprazole Sodium 40 mg 08/06/20 07:30 08/09/20 07:[address] 40 Mg Tablet PO 40 mg Q12H NIKO Administration Fluticasone/Salmeterol 1 puff 08/02/20 20:21 08/09/20 08:54 Fluticasone-Salmeterol 250-50 Diskus INHALATION 1 puff BID.RESPIRATORY NIKO Administration PFSH Acute PFSH: Medical History CHF (congestive heart failure) CKD (chronic kidney disease) Diabetes GERD (gastroesophageal reflux disease) HTN (hypertension) Hypothyroidism PVC (premature ventricular contraction) Surgical History S/P cataract extraction S/P cervical spinal fusion S/P tonsillectomy Status post tubal ligation Family History Mother Hypertension Grandmother Hypertension MATERNAL Other Cancer Diabetes Social History Smoking and tobacco status: former smoker Household members: spouse Marital status: Vitals/I&O/Wt Last Vital Signs Temp 98.2 F 08/09/20 12:00 Pulse 118 H 08/09/20 12:00 Resp 21 H 08/09/20 12:00 BP 155/80 08/09/20 12:00 Pulse Ox 87 L 08/09/20 12:00 08/09/20 08/09/20 08/09/20 06:59 14:59 22:59 Intake Total 540 / 1160 400 / 400 Output Total 700 / 1300 500 / 500 Balance -160 / -140 -100 / -100 Weight last 48 hrs Weight 187 lb 14.4 oz Weight 198 lb 3.2 oz Physical Exam Narrative: EXAM NARRATIVE: ND Urinary Catheter Management^: 2-way Urethral: Cath Placed During This Visit: yes Reason for Continuing Indwelling Catheter: Accurate Measurement of Urinary Output in Critically Ill Patients Urinary Catheter Date of Insertion: 08/03/20 Urinary Catheter Time of Insertion: 00:00 Data Labs: Other Labs: EKG on 07 August showed sinus rhythm at 78 bpm. No atrial fibrillation was noted Imaging^: CXR: Radiologist's impression: With improving bilateral infiltrates. Echo: I personally reviewed and interpreted this imaging study as follows: My impression: 03 August 2020 CONCLUSIONS Normal left ventricular size and systolic function, EF 65 %. No regional wall motion abnormalities. Mildly increased left atrial size. Trace mitral valve regurgitation. Thickened aortic valve. Trace tricuspid valve regurgitation. There is no pericardial effusion. There are no intracardiac masses. Compared to the previous study from 12/15/2018, there may not be a significant change Other Imaging: I personally reviewed and interpreted this imaging study as follows: My impression: Lexiscan sestamibi myocardial perfusion imaging 23 March 2019 IMPRESSIONS #1. Myocardial perfusion imaging revealing a small area of reversible defect in the apical inferior wall region, suggestive of ischemia in the distribution of the distal right coronary artery. #2. Normal LV ejection fraction of 72%. #3. LV wall motion analysis revealed mild hypokinesia of the left ventricular apex. #4. Normal LV volume No similar previous studies are available for comparison A&P Assessment and plan (1) Atrial fibrillation with RVR: Increase metoprolol succinate to 100 mg am and 50 mg PM. -change cardizem to 120 mg BID. -on lovenox. -May change metoprolol succinate to 150 mg depending on BP/HR response. Status: Acute (2) Pneumonia due to 2019-nCoV: As per primary team. Status: Acute (3) HTN (hypertension): BP still elevated . continue to check BP and HR. Status: Acute (4) Acute kidney injury superimposed on CKD: Creatinine improving. Status: Acute (5) CHF (congestive heart failure): received lasix 20 mg IV x 2 earlier today. Status: Acute (6) Diabetes: Status: Acute Consult Attestations Medical Necessity Statement: As per primary team. Coding Level of Care Code Acute Organ Tuner for [facility] Diagnoses Atrial fibrillation with RVR I48.91 Pneumonia due to 2019-nCoV U07.1; J12.89 HTN (hypertension) I10 Acute kidney injury superimposed on CKD N17.9; N18.9 CHF (congestive heart failure) I50.9 Diabetes E11.9
[2020-08-09] MEDS: FUROsemide 10 mg/mL SDV 2mL 20 MG IVP (18:08)
--- NOTE | 2020-08-09 18:43 | PC.NURSE ---
Heart rate has been controlled right around 100 all day with the increase in dose of Cardizem. Corral removed at 4 this afternoon, after patient demonstrated ability to walk (100 feet around unit). Lasix given an hour ago. Has yet to void. Still in good spirits, eating 25% of meals, needs encouragement to complete activities.
[2020-08-09] MEDS: doxazosin 1 mg Tablet 2 MG PO (20:28)
[2020-08-09] MEDS: mirtazapine 15 mg Tablet PO (20:28)
[2020-08-09] MEDS: metoprolol succinate ER (24 HR) 50 mg Tablet PO (21:00)
[2020-08-10] VITALS (11 sets, daily range): BP systolic 90–143; BP diastolic 64–98; PULSE 87–121; RESP 9–20; TEMP 36.6–36.8; O2SAT 88–96
[2020-08-10 05:42] LABS: Hematocrit 29.7 % (37.0-47.0); Hemoglobin 9.7 g/dL (11.5-15.3); Mean Corpuscular HGB Conc 32.7 g/dL (30.0-36.0); Mean Corpuscular Hemoglobin 29.5 pg (28.0-34.0); Mean Corpuscular Volume 90.3 fL (81-99); Mean Platelet Volume 10.5 fL (7.4-10.4); Platelet Count 290 10^3/cmm (130-400); Red Blood Count 3.29 10^6/uL (4.1-5.3); Red Cell Distribution Width 13.1 % (12.1-15.1); White Blood Count 14.6 10^3/uL (4.0-10.0)
[2020-08-10 06:54] LABS: INR 1.15 (0.8-1.2)
--- NOTE | 2020-08-10 07:00 | XR_ITS ---
WS: [id number] Exam: XR chest 1V portable [id number] Date/Time of Exam: 08/10/2020 7:00 AM Reason For Exam: sob Comparison 08/09/2020. Diffuse bilateral infiltrates show little change since prior study. Heart size is normal for a portab le technique. The mediastinum and bony thorax are unremarkable. Monitoring leads superimpose the ches t. No pleural effusions. XR/XR chest 1V portable [id number] IMPRESSION: 1. Diffuse bilateral pulmonary infiltrates unchanged since most recent exam.
[2020-08-10 07:20] LABS: Alanine Aminotransferase 49 U/L (0-33); Alkaline Phosphatase 65 IU/L (35-105); Anion Gap 16.9 (5-19); Aspartate Amino Transferase 21 U/L (0-32); Blood Urea Nitrogen 58 mg/dL (8-23); Calcium 8.8 mg/dL (8.5-10.5); Carbon Dioxide 20 mmol/L (22-29); Chloride 98 mmol/L (98-107); Globulin 2.2 g/dL (1.3-4.6); Glucose 224 mg/dL (65-115); Magnesium 2.4 mg/dL (1.7-2.3); Osmolality Calculated 293 mOsm/kg (285-295); Phosphorus 3.7 mg/dL (2.5-4.5); Potassium 4.9 mmol/L (3.5-5.1); Sodium 130 mmol/L (136-145); Total Bilirubin 0.6 mg/dL (0.15-1.2); Total Protein 5.2 g/dL (6.6-8.7)
[2020-08-10 07:29] LABS: NT Pro B Type Natriuretic Pept 9901 pg/mL (0-450); Procalcitonin 0.08 ng/mL (0-0.5)
[2020-08-10 07:41] LABS: Slide Review Slide Review Perform
[2020-08-10 07:42] LABS: Creatine Phosphokinase 232 U/L (26-192)
[2020-08-10] MEDS: dexamethasone 4 mg/mL INJ 6 MG IVP (08:45)
[2020-08-10] MEDS: pantoprazole DR 40 mg Tablet PO (08:45)
[2020-08-10] MEDS: omega-3 fatty acids 1,000 mg Capsule 1000 MG PO (08:53)
[2020-08-10] MEDS: aspirin 81 mg EC Tablet PO (08:54)
[2020-08-10] MEDS: dilTIAZem ER (12HR) 60 mg Capsule 120 MG PO (08:54)
[2020-08-10] MEDS: docusate sodium 100 mg Capsule PO (08:55)
[2020-08-10] MEDS: metoprolol succinate ER (24 HR) 100 mg Tablet PO (08:55)
[2020-08-10] MEDS: ferrous sulfate EC 325 mg Tablet PO (08:55)
[2020-08-10 09:00] LABS: Absolute Neutrophil 13.9 10^3/cmm (1.4-6.5); Absolute Segmented Neutrophil 13.6 10/cmm (1.6-7.1); Band Neutrophils Absolute 0.3 10^3/cmm (0.0-1.2); Lymphocytes 3 %; Monocytes Absolute 0.3 10^3/cmm (0.1-0.6); Platelet Estimate Normal (Normal); Segmented Neutrophils 93 %; Total Cells Counted 100 (0-100)
[2020-08-10 09:02] LABS: Eosinophils 0 %
[2020-08-10 09:24] LABS: Glucose Point of Care 257 mg/dL (70-110)
[2020-08-10] MEDS: levothyroxine 150 mcg Tablet 75 MCG PO (10:35)
[2020-08-10] MEDS: dilTIAZem ER (12HR) 60 mg Capsule PO (10:37)
[2020-08-10 12:21] LABS: Glucose Point of Care 299 mg/dL (70-110)
[2020-08-10] MEDS: apixaban 5 mg Tablet 2.5 MG PO (12:22)
[2020-08-10] MEDS: doxycycline 100 mg Tablet PO (13:07)
--- NOTE | 2020-08-10 13:25 | PC.NURSE ---
Attempted to ambulate patient in the hallway, but patient declined. She said she already walked the unit with PT and didn't want to again. Nurse explained the importance of ambulation.
--- NOTE | 2020-08-10 13:35 | PM.DCS ---
Discharge Providers Date of Admission: 08/02/20 15:58 Date of Discharge: August 10, 2020 Attending Provider at Admission: Donta Amaro MD Attending Provider at Discharge: Donta Amaro MD Primary Care Provider: Mann Garduno MD Diagnoses at Discharge Discharge Diagnosis (1) Atrial fibrillation with RVR: Status: Acute (2) Pneumonia due to 2019-nCoV: Status: Acute (3) HTN (hypertension): Status: Acute (4) Acute kidney injury superimposed on CKD: Status: Acute (5) CHF (congestive heart failure): Status: Acute (6) Diabetes: Status: Acute Reason for Visit Reason for Visit: AMS Hospital Course Hospital Course This is a 80-year-old female with a past medical history of heart failure with preserved ejection fraction, insulin-dependent type 2 diabetes mellitus, hypertension, hyperlipidemia, hypothyroidism, CKD stage unknown, obesity who presents [facility] due to confusion and shortness of breath Patient was admitted to [facility] viral ICU for acute respiratory failure with hypoxia and encephalopathy secondary to COVID-19 pneumonia, she received Advair, albuterol, Levaquin for antibiotic therapy, remdesivir, Decadron, as needed Lasix therapy. Patient's remdesivir had to be stopped on day 3 due to acute renal failure. In terms of her confusion, resolved, alert oriented x3 on discharge, answering all questions appropriately. In terms of her respiratory status, did have crackles on exam on discharge, no signs of respiratory distress, ambulating without significant symptomatology, requiring 2 L nasal cannula did give a dose of Lasix 40 mg on discharge. On discharge, patient was +2 L, saturating on the high 90s on 2 L, all cultures so far have been unremarkable, urine bacterial antigens have been unremarkable, her chest x-ray did show diffuse bilateral pulmonary infiltrates. Patient has been in the hospital for 8 days, she has been wanting to go home for some time, I advised for 24 hours monitoring, she is adamant about going home, advised of the risk and benefits, voiced understanding, all questions answered, patient still wanted to go home. I have discharged the patient on 14 days of doxycycline, Solu-Medrol taper, Advair, albuterol, vitamin C, zinc, aggressive pulmonary toilet, incentive spirometer, flutter valve use, Tessalon Perles, Lasix as needed for shortness of breath or edema. Patient was advised to continue to socially isolate for a total of 3 weeks since symptom onset, handwashing, facemask, socially distance. Patient was advised that if she were to have worsening shortness of breath, fevers, chills, malaise, confusion come back to emergency room. Patient developed A. fib with RVR during her hospital admission, likely related to acute respiratory failure, initially managed with metoprolol, amiodarone was added, but suffered QTC prolongation, which was stopped, switched over to Cardizem, cardiology was consulted. Patient will be discharged on metoprolol succinate 100 mg in the morning, 50 mg in the evening, Cardizem 300 mg daily starting tomorrow, Eliquis 2.5 mg twice daily (given age of 80, creatinine of 2), with a close follow-up cardiology in 2 weeks. Patient's echocardiogram did show an EF of 65%, no regional wall motion abnormalities, did have elevated troponins, on aspirin, statin, patient was advised to follow-up with cardiology as outpatient for consideration of stress testing at some point. Patient did develop QTC prolongation during her hospitalization, likely secondary to remdesivir and/or amiodarone, which resolved after discontinuation Patient developed acute renal failure during the hospitalization, creatinine as high as 3, nephrology was consulted, did have robust urine output, did require some gentle hydration as needed at some points during hospitalization, some component of renal failure was prerenal, however I strongly believe that a significant component was related to a side effect of remdesivir, as soon as remdesivir was stopped; her creatinine started to improve, urine output remained robust, creatinine on discharge 2, she is has chronic kidney disease and her kidney function is at baseline Patient did develop anemia during her hospitalization, no overt signs of GI bleed, received a total of 2 units PRBC, I strongly believe that she suffered bone marrow suppression from the remdesivir, as soon is a remdesivir, Her counts continue to remain stable Did have enterococcal UTI during her hospital admission, finished Levaquin antibiotics as inpatient For her type 2 diabetes mellitus, she did have hypoglycemic episodes during hospitalization, due to poor appetite. I have discharged her reduced dose of home Lantus 15 units at bedtime, with her sliding scale. Continue to check blood sugars 3 times daily, if blood sugar is greater than 300, she can increase her home Lantus back to 30 units at bedtime. If her blood sugars are greater than 500 call her primary care. If blood sugar is less than 60, drink or juice, call primary care. Patient did have transaminitis secondary to COVID-19, continue to monitor for resolving Physical Exam Const: COMMON NORMALS: no acute distress and patient oriented x3 HENMT: COMMON NORMALS: normocephalic HEAD & SCALP: normocephalic Neck/C-Spine: COMMON NORMALS: no JVD Resp: COMMON NORMALS: normal respiratory effort, No retractions, No use of accessory muscles and clear to auscultation bilaterally AUSCULTATION: clear to auscultation bilaterally Cardio: COMMON NORMALS: no JVD, regular rate, regular rhythm, S1 normal heart sound present and S2 normal heart sound present RATE: regular rate RHYTHM: regular rhythm HEART SOUNDS: S1 normal heart sound present and S2 normal heart sound present GI: COMMON NORMALS: Normal to inspection, nondistended, normoactive bowel sounds present, Soft to palpation, non-tender, No hepatosplenomegaly present, no masses and no bruits PALPATION: Yes Soft to palpation and Yes No hepatosplenomegaly present Extremity: COMMON NORMALS: capillary refill normal, no clubbing, cyanosis or edema, no calf tenderness and no pedal edema Neuro: COMMON NORMALS: patient oriented x3 Psych: COMMON NORMALS: mental status grossly normal Urinary Catheter Management^: 2-way Urethral: Cath Placed During This Visit: yes, but has since been removed by the nurse Reason for Continuing Indwelling Catheter: Acute Urinary Retention or Obstruction Urinary Catheter Date of Insertion: 08/03/20 Urinary Catheter Time of Insertion: 00:00 Date Urinary Catheter Removed: 08/09/20 Time Urinary Catheter Discontinued: 16:00 Discharge Data Data Completed and Pending: Completed Studies During Hospitalization Category Date Time Status CT head wo con* 7 0450 Urgent Cat Scan 08/02/20 13:24 Completed XR chest 1V toñito ble [id number] Routine Exams 08/03/20 07:00 Completed XR chest 1V toñito ble [id number] Routine Exams 08/05/20 07:00 Completed XR chest 1V toñito ble [id number] Routine Exams 08/09/20 13:09 Completed XR chest 1V toñito ble [id number] Routine Exams 08/10/20 07:00 Completed XR chest 1V toñito ble [id number] Urgent Exams 08/02/20 13:24 Completed CV echo complete* [id number] Routine Ultrasound 08/03/20 20:21 Completed US renal BI* [id number] 0 Routine Ultrasound 08/05/20 07:57 Completed Pending at discharge Category Date Time Status C Reactive Protei n AM LABS Lab 08/11/20 04:00 Ordered C Reactive Protei n AM LABS Lab 08/12/20 04:00 Ordered Complete Blood Co unt w/Auto AM LABS Lab 08/11/20 04:00 Ordered Comprehensive Met abolic Panel AM LA BS Lab 08/11/20 04:00 Ordered Creatine Phosphok inase AM LABS Lab 08/11/20 04:00 Ordered Creatine Phosphok inase AM LABS Lab 08/12/20 04:00 Ordered Immunochemical Fe alfredo OCB Routine Lab 08/06/20 07:19 Ordered Magnesium AM LABS Lab 08/11/20 04:00 Ordered NT Pro B Type Toshia riuretic Pept QAM Lab 08/11/20 06:00 Ordered NT Pro B Type Toshia riuretic Pept QAM Lab 08/12/20 06:00 Ordered Phosphorus AM LAB S Lab 08/11/20 04:00 Ordered Procalcitonin AM LABS Lab 08/11/20 04:00 Ordered Procalcitonin AM LABS Lab 08/12/20 04:00 Ordered Prothrombin Time INR AM LABS Lab 08/11/20 04:00 Ordered Prothrombin Time INR AM LABS Lab 08/12/20 04:00 Ordered Sputum Culture an d Gram Stain Stat Lab 08/02/20 20:21 Uncollected Labs from last 24 hours 08/10/20 08/10/20 08/10/20 12:06 09:08 04:45 WBC RBC Hgb Hct MCV MCH MCHC RDW Plt Count MPV Total Counted Atypical Lymphs % Absolute Neutrophi ls Segmented Neutroph ils Abs Segm Neuts (Ma n) Band Neutrophils Abs Band Neuts (Ma n) Lymphocytes (Manua l) Monocytes (Manual) Absolute Monocytes Eosinophils (Manua l) Absolute Eosinophi ls Basophils (Manual) Absolute Basophils Platelet Estimate PT INR Sodium Potassium Chloride Carbon Dioxide Anion Gap BUN Creatinine GFR Calculation Glucose POC Glucose 299 257 Calculated Osmolal ity Lactate Calcium Phosphorus Magnesium Total Bilirubin AST ALT Alkaline Phosphata se Creatine Kinase 232 H C-Reactive Protein NT-Pro-B Natriuret Pep 9901 H Total Protein Albumin Globulin Procalcitonin 0.08 Crossmatch 08/10/20 08/10/20 08/10/20 04:45 04:45 04:45 WBC RBC Hgb Hct MCV MCH MCHC RDW Plt Count MPV Total Counted Atypical Lymphs % Absolute Neutrophi ls Segmented Neutroph ils Abs Segm Neuts (Ma n) Band Neutrophils Abs Band Neuts (Ma n) Lymphocytes (Manua l) Monocytes (Manual) Absolute Monocytes Eosinophils (Manua l) Absolute Eosinophi ls Basophils (Manual) Absolute Basophils Platelet Estimate PT 15.10 H INR 1.15 Sodium 130 L Potassium 4.9 Chloride 98 Carbon Dioxide 20 L Anion Gap 16.9 BUN 58 H Creatinine 2.0 H GFR Calculation Not Reportable Glucose 224 H POC Glucose Calculated Osmolal ity 293 Lactate Calcium 8.8 Phosphorus 3.7 Magnesium 2.4 H Total Bilirubin 0.6 AST 21 ALT 49 H Alkaline Phosphata se 65 Creatine Kinase C-Reactive Protein 12.0 H NT-Pro-B Natriuret Pep Total Protein 5.2 L Albumin 3.0 L Globulin 2.2 Procalcitonin Crossmatch 08/10/20 08/09/20 08/09/20 04:45 17:05 15:45 WBC 14.6 H RBC 3.29 L Hgb 9.7 L Hct 29.7 L MCV 90.3 MCH 29.5 MCHC 32.7 RDW 13.1 Plt Count 290 MPV 10.5 H Total Counted 100 Atypical Lymphs % 0.0 Absolute Neutrophi ls 13.9 H Segmented Neutroph ils 93 Abs Segm Neuts (Ma n) 13.6 H Band Neutrophils 2.0 Abs Band Neuts (Ma n) 0.3 Lymphocytes (Manua l) 3 Monocytes (Manual) 2.0 Absolute Monocytes 0.3 Eosinophils (Manua l) 0 Absolute Eosinophi ls 0.0 Basophils (Manual) 0.0 Absolute Basophils 0.0 Platelet Estimate Normal PT INR Sodium Potassium Chloride Carbon Dioxide Anion Gap BUN Creatinine GFR Calculation Glucose POC Glucose 248 Calculated Osmolal ity Lactate 1.4 Calcium Phosphorus Magnesium Total Bilirubin AST ALT Alkaline Phosphata se Creatine Kinase C-Reactive Protein NT-Pro-B Natriuret Pep Total Protein Albumin Globulin Procalcitonin Crossmatch 08/06/20 10:00 WBC RBC Hgb Hct MCV MCH MCHC RDW Plt Count MPV Total Counted Atypical Lymphs % Absolute Neutrophi ls Segmented Neutroph ils Abs Segm Neuts (Ma n) Band Neutrophils Abs Band Neuts (Ma n) Lymphocytes (Manua l) Monocytes (Manual) Absolute Monocytes Eosinophils (Manua l) Absolute Eosinophi ls Basophils (Manual) Absolute Basophils Platelet Estimate PT INR Sodium Potassium Chloride Carbon Dioxide Anion Gap BUN Creatinine GFR Calculation Glucose POC Glucose Calculated Osmolal ity Lactate Calcium Phosphorus Magnesium Total Bilirubin AST ALT Alkaline Phosphata se Creatine Kinase C-Reactive Protein NT-Pro-B Natriuret Pep Total Protein Albumin Globulin Procalcitonin Crossmatch See Detail Vitals: Last Vital Signs Temp 97.9 F 08/10/20 12:00 Pulse 100 08/10/20 12:00 Resp 16 08/10/20 12:00 BP 130/98 08/10/20 12:00 Pulse Ox 88 L 08/10/20 13:31 Discharge Plan Discharge Patient Disposition: Home Condition: Stable Prescriptions: New fluticasone propion-salmeterol [Advair Diskus] 250-50 mcg/dose Blister With Device 1 ea inhalation BID.RESPIRATORY Qty: 60 RF: 0 pantoprazole 40 mg Tablet,Delayed Release (Dr/Ec) 40 mg PO Q12H 30 Days Qty: 60 RF: 0 metoprolol succinate 50 mg Tablet Extended Release 24 Hr 50 mg PO 2100 30 Days Qty: 30 RF: 0 diltiazem HCl 300 mg Capsule,Extended Release 24hr 300 mg PO DAILY 30 Days Qty: 30 RF: 0 doxycycline monohydrate 100 mg Tablet 100 mg PO BID@0700,1600 14 Days Qty: 14 RF: 0 furosemide [Lasix] 20 mg tablet 20 mg PO DAILY PRN (Reason: edema or shortness of breath) 30 Days Qty: 30 RF: 0 albuterol sulfate [Ventolin HFA] 90 mcg/actuation Hfa Aerosol Inhaler 1 puff inhalation Q4H.RESPIRATORY PRN (Reason: Wheezing) Qty: 18 RF: 0 mirtazapine 15 mg Tablet 15 mg PO BEDTIME 30 Days Qty: 30 RF: 0 Eliquis 5 mg Tablet 2.5 mg PO Q12H 30 Days Qty: 30 RF: 0 prednisone 10 mg tablet See Rx Instructions .ROUTE .COMPLEX Qty: 53 RF: 0 Continued coenzyme Q10 [CoQ-10] 100 mg capsule 100 mg PO DAILY RF: 0 docusate sodium [Stool Softener] 100 mg capsule 100 mg PO DAILY RF: 0 ferrous sulfate 325 mg (65 mg iron) tablet 325 mg PO BID RF: 0 insulin lispro [Humalog U-100 Insulin] 100 unit/mL solution See Rx Instructions .ROUTE .COMPLEX RF: 0 levothyroxine 75 mcg tablet 75 mcg PO DAILY RF: 0 potassium chloride [Klor-Con M10] 10 mEq tablet,ER particles/crystals 20 meq PO DAILY RF: 0 doxazosin 2 mg tablet 2 mg PO BEDTIME RF: 0 aspirin [Aspir-81] 81 mg tablet,delayed release (DR/EC) 81 mg PO DAILY RF: 0 clonidine HCl 0.1 mg tablet 0.1 mg PO PRN PRN (Reason: hypertensive emergency) RF: 0 atorvastatin 10 mg tablet 5 mg PO DAILY RF: 0 omeprazole 20 mg capsule,delayed release(DR/EC) 20 mg PO DAILY RF: 0 acetaminophen [Tylenol Extra Strength] 500 mg Tablet 500 - 1,000 mg PO PRN RF: 0 Centrum Silver Tablet 1 tab PO DAILY RF: 0 [place] 3 Capsule 1,000 mg PO DAILY RF: 0 turmeric root extract 500 mg Capsule 500 mg PO DAILY RF: 0 Changed Lantus U-100 Insulin 100 unit/mL solution 15 unit SUBCUT BEDTIME Qty: 0 RF: 0 metoprolol succinate 100 mg tablet extended release 24 hr 100 mg PO QAM Qty: 0 RF: 0 Discontinued losartan 100 mg tablet 100 mg PO DAILY RF: 0 amlodipine 5 mg tablet 10 mg PO DAILY RF: 0 torsemide 20 mg tablet 20 mg PO DAILY RF: 0 levofloxacin 500 mg tablet See Rx Instructions .ROUTE .COMPLEX RF: 0 Discharge Orders: Discharge Order (Routine); Ordered 08/10/20 Ordered By: Donta Amaro Other Ambulatory Orders: DME: Oxygen (Order) Location: None Selected Ordered By: Donta Amaro DME: Oxygen (Order) Location: None Selected Ordered By: Donta Amaro Referrals: Lory Egan MD [Physician] - 2 weeks Mann Garduno MD [Primary Care Provider] - Discharge Diet: Cardiac Discharge Activity: Resume usual activity Patient Instructions: Apixaban (By mouth) Activity Restrictions/Additional Instructions: -For your COVID-19 pneumonia, continue to socially isolate, self distance, facemask, hand wash, for the next 3 weeks -Use doxycycline 100 mg twice daily for the next 2 weeks -Steroid taper -If you have worsening shortness of breath cough, fevers, shortness of breath please come back to the emergency room -I have discharged on Eliquis 2.5 mg twice daily for hypercoagulability and A. fib -If you have bloody or black stools, bloody vomit, bloody cough come back to the emergency room -Monitor blood sugars carefully, continue sliding scale -I have decreased her Lantus to 15 units at bedtime, can increase if blood sugars are running higher than 300 -I have discharged you on Lasix 20 mg daily as needed if he feels short of breath or swelling -Your sodium levels are low, I advised you to drink plenty of electrolyte balance fluids, such as Gatorade do not drink free water as this can lower your sodium levels -Follow-up with cardiology in 2 weeks -Monitor blood pressure, I have held your losartan and amlodipine -For your atrial fibrillation, you should take 100 mg of metoprolol in the morning, 50 mg at night -For atrial fibrillation, you should in addition take Cardizem 300 mg daily in the morning, starting tomorrow -use your Advair, incentive spirometer, daily - Discharge Attestations Time Spent in Discharge Care*: less than 30 min Quality Metrics Clinical Quality Measures During this hospital stay, did patient experience: None Coding Level of Care Code Acute [employer] for [employer] Fwd Diagnoses Atrial fibrillation with RVR I48.91 Pneumonia due to 2019-nCoV U07.1; J12.89 HTN (hypertension) I10 Acute kidney injury superimposed on CKD N17.9; N18.9 CHF (congestive heart failure) I50.9 Diabetes E11.9
[2020-08-10] MEDS: FUROsemide 10 mg/mL SDV 4mL 40 MG IVP (14:38)
--- NOTE | 2020-08-10 15:27 | PM.PN ---
Subjective Subjective: Interval history: HR in 140's this morning. She is being evaluated for home O2 this am. Medications: Reviewed: Yes Medication Review Details: Current Medications Acetaminophen (Acetaminophen 325 Mg Tablet) 650 mg PO Q6H PRN PRN Reason: Mild/Mod Pain Or Temp >/= 101 Last Admin: 08/07/20 12:46 Dose: 650 mg Documented by: Albuterol Sulfate (Albuterol 8 Gm Mdi) 1 puff INHALATION Q4H.RESPIRATORY PRN PRN Reason: WHEEZING Last Admin: 08/08/20 19:37 Dose: 1 puff Documented by: Apixaban (Apixaban 5 Mg Tablet) 2.5 mg PO Q12H [facility] Last Admin: 08/10/20 12:22 Dose: 2.5 mg Documented by: Aspirin (Aspirin 81 Mg Ec Tablet) 81 mg PO DAILY [facility] Last Admin: 08/10/20 08:54 Dose: 81 mg Documented by: Atorvastatin Calcium (Atorvastatin 40 Mg Tablet) 20 mg PO DAILY [facility] Last Admin: 08/05/20 08:59 Dose: 20 mg Documented by: Dexamethasone (Dexamethasone 4 Mg/Ml Inj) 6 mg IVP Q24H [facility] Last Admin: 08/10/20 08:45 Dose: 6 mg Documented by: Dextrose (Dextrose 50% Syringe 50 Ml) 25 ml IVP ONCE PRN; Protocol PRN Reason: hypoglycemia protocol Last Admin: 08/07/20 07:00 Dose: 25 ml Documented by: Dextrose (Dextrose 50% Syringe 50 Ml) 50 ml IVP PRN PRN; Protocol PRN Reason: hypoglycemia protocol Diltiazem HCl (Diltiazem Er (12hr) 60 Mg Capsule) 120 mg PO BID [facility] Stop: 08/11/20 00:00 Last Admin: 08/10/20 08:54 Dose: 120 mg Documented by: Diltiazem HCl (Diltiazem Er (24hr) 300 Mg Capsule) 300 mg PO DAILY [facility] Docusate Sodium (Docusate Sodium 100 Mg Capsule) 100 mg PO DAILY [facility] Last Admin: 08/10/20 08:55 Dose: 100 mg Documented by: Doxazosin Mesylate (Doxazosin 1 Mg Tablet) 2 mg PO BEDTIME [facility] Last Admin: 08/09/20 20:28 Dose: 2 mg Documented by: Doxycycline Monohydrate (Doxycycline 100 Mg Tablet) 100 mg PO BID@0700,1600 [facility]; Protocol Last Admin: 08/10/20 13:07 Dose: 100 mg Documented by: Ferrous Sulfate (Ferrous Sulfate Ec 325 Mg Tablet) 325 mg PO BID [facility] Last Admin: 08/10/20 08:55 Dose: 325 mg Documented by: Glucagon (Glucagon 1 Mg/Ml Inj 1 Ml) 1 mg IM ONCE PRN; Protocol PRN Reason: Adult Acute Hypoglycemia Prot. Dextrose (D5w) 500 mls @ 100 mls/hr IV ONCE PRN; Protocol PRN Reason: Adult Acute Hypoglycemia Prot Sodium Chloride (Sodium Chloride 0.9%) 250 mls @ 0 mls/hr IV .Q0M NIKO Insulin Aspart (Insulin Aspart 100 Unit/1 Ml) 0 unit SUBCUT TIDWM [facility]; Protocol Last Admin: 08/10/20 12:19 Dose: 10 unit Documented by: Levothyroxine Sodium (Levothyroxine 150 Mcg Tablet) 75 mcg PO DAILY [facility] Last Admin: 08/10/20 10:35 Dose: 75 mcg Documented by: Metoclopramide HCl (Metoclopramide 5 Mg/Ml Sdv 2 Ml) 5 mg IVP Q6H PRN PRN Reason: NAUSEA AND VOMITING Last Admin: 08/07/20 14:48 Dose: 5 mg Documented by: Metoprolol Succinate (Metoprolol Succinate Er (24 Hr) 100 Mg Tablet) 100 mg PO DAILY [facility] Last Admin: 08/10/20 08:55 Dose: 100 mg Documented by: Metoprolol Succinate (Metoprolol Succinate Er (24 Hr) 50 Mg Tablet) 50 mg PO 2100 [facility] Last Admin: 08/09/20 21:00 Dose: 50 mg Documented by: Mirtazapine (Mirtazapine 15 Mg Tablet) 15 mg PO BEDTIME [facility] Last Admin: 08/09/20 20:28 Dose: 15 mg Documented by: Non-Formulary Medication (Coenzyme Q10 [Coq-10]) 100 mg PO DAILY [facility] Last Admin: 08/10/20 09:28 Dose: Not Given Documented by: Non-Formulary Medication (Qmaavruowigs-Jzqwoega-Pjxvgg) 1 tab PO DAILY [facility] Last Admin: 08/10/20 09:28 Dose: Not Given Documented by: Woicn-2-Dxbp Ethyl Esters ([place]-3 Fatty Acids 1,000 Mg Capsule) 1,000 mg PO DAILY [facility] Last Admin: 08/10/20 08:53 Dose: 1,000 mg Documented by: Ondansetron HCl (Ondansetron 2 Mg/Ml Sdv 2 Ml) 4 mg IVP Q8H PRN PRN Reason: vomiting, or N/V if npo Last Admin: 08/07/20 07:32 Dose: 4 mg Documented by: Ondansetron HCl (Ondansetron 2 Mg/Ml Sdv 2 Ml) 4 mg IVP Q4H PRN PRN Reason: NAUSEA AND VOMITING Last Admin: 08/05/20 15:55 Dose: 4 mg Documented by: Pantoprazole Sodium (Pantoprazole Dr 40 Mg Tablet) 40 mg PO Q12H NI[facility] Last Admin: 08/10/20 08:45 Dose: 40 mg Documented by: Fluticasone/Salmeterol (Fluticasone-Salmeterol 250-50 Diskus) 1 puff INHALATION BID.RESPIRATORY NKIO Last Admin: 08/10/20 08:29 Dose: 1 puff Documented by: Vitals/I&O/Wt Last Vital Signs Temp 97.9 F 08/10/20 12:00 Pulse 100 08/10/20 12:00 Resp 16 08/10/20 12:00 BP 130/98 08/10/20 12:00 Pulse Ox 88 L 08/10/20 13:31 08/10/20 08/10/20 08/10/20 06:59 14:59 22:59 Intake Total 100 / 800 1200 / 1200 Balance 100 / -500 1200 / 1200 Weight last 48 hrs Weight 187 lb 14.4 oz Physical Exam Narrative: EXAM NARRATIVE: ND as patient in COVID unit Urinary Catheter Management^: 2-way Urethral: Cath Placed During This Visit: yes, but has since been removed by the nurse Reason for Continuing Indwelling Catheter: Acute Urinary Retention or Obstruction Urinary Catheter Date of Insertion: 08/03/20 Urinary Catheter Time of Insertion: 00:00 Date Urinary Catheter Removed: 08/09/20 Time Urinary Catheter Discontinued: 16:00 Data : 08/10/20 04:45 08/10/20 04:45 A&P Assessment and plan (1) Atrial fibrillation with RVR: Increase metoprolol succinate to 100 mg am and 50 mg PM. -change cardizem to 300 mg daily -on Eliquis 2.5 mg BID. -BP/HR log x 2 weeks. -f/u with me in 2 weeks (telemedicine visit) Status: Acute (2) Pneumonia due to 2019-nCoV: As per primary team. Status: Acute (3) HTN (hypertension): BP still elevated . continue to check BP and HR. Status: Acute Qualifiers: Hypertension type: essential hypertension Qualified Code(s): I10 - Essential (primary) hypertension (4) Acute kidney injury superimposed on CKD: Creatinine improving. Status: Acute (5) CHF (congestive heart failure): received lasix 20 mg IV x 2 earlier today. Status: Acute Qualifiers: Heart failure type: diastolic (6) Diabetes: Status: Acute Attestations Medical Necessity Statement*: As per primary team Coding Level of Care Code Acute Employee Relation [employer] for [facility] Fwd Diagnoses Atrial fibrillation with RVR I48.91 Pneumonia due to 2019-nCoV U07.1; J12.89 HTN (hypertension) I10 Hypertension type: essential hypertension Acute kidney injury superimposed on CKD N17.9; N18.9 CHF (congestive heart failure) I50.9 Heart failure type: diastolic Diabetes E11.9
--- NOTE | 2020-08-10 16:19 | PC.NURSE ---
Prepared patient for discharge. Completed Discharge Assessment, providded discharge education/teaching. Pt signature form signed. Called patient's daughter, lion, advised to come to parking lot 7. She will call when she is here.
--- NOTE | 2020-08-10 16:20 | PC.SOCIAL ---
Addendum entered by Ashley Kern RN 08/10/20 16:34: Order given verbally to do Doxycycline 7 days not 14. Protonix can be once daily. Updated Jada at [facility] pharmacy Addendum entered by Ashley Kern RN 08/10/20 16:30: Will update Ash At [facility] pharmacy once provider returns call. Original Note: Ash from [facility] pharmacy called to verify on Doxycycline if it is 7 days or 14 days. It is ordered BID and states 14 days and 14 pills tried to [address] Amaro unable to reach. Sent a voalte message and requested a call back since unable to take orders by message. Also noted need to clarify if Protonix can be once daily instead of BID since insurance wont approve twice daily.Will await a call back.
--- NOTE | 2020-08-10 17:14 | PC.NURSE ---
Discharged patient. Patient was escorted out with the tobacco warehouse manager and security via wheelchair. HOme oxygen sent with patient. Patient's daughter Ness picked her up.
--- NOTE | 2020-08-13 09:30 | PC.SOCIAL ---
Spoke with the patients daughter/central supply tech Ness Mccann on the phone about the discharge information they received spoke about signs and symptoms to watch for such as; blue lips or face, fever of 104 or higher, trouble breathing or catching breath, chest pain lasting longer than 5 minute, confusion or trouble waking up. We also spoke about ways to improve the immune system, these included; eating and drinking well, eating fruits and vegetables, lean meat, low fat dairy products, keeping up with immunizations such as flu/pneumonia/shingles shots, going to all appointments and follow ups, lessening and stress. We also spoke about ways to stop or prevent the spread of the COVID 19. These included; social distancing at all times, washing hands longer than 20 seconds with a good lather, sanitizing surfaces in home and in vehicle, masking up when possible and washing any cloth masks after use and allow them to dry completely before next use, sneezing or coughing into arm, restricting company or going out in public. We spoke a little about the benefits of plasma donation. This is not currently an option as her mother is very weak. She mentioned that her mother could use HH therapy services, I was able to have Dr. Amaro place an order for HH. I called and spoke with [facility], [facility] and [facility]. The only one in network with the patient insurance or the only one with possible staff is [facility], they asked that I send the referral, referral sent waiting on a response. I informed the patients daughter Ness Mccann.
== END 2020-08-10 17:15 | disposition home or self-care (01) | DRG 177 ==
LOC: ER 17:20 → ICU 17:30
PROVIDERS: Internal Medicine Nephrology; Admitting Provider Family Medicine; Emergency Provider Emergency Medicine; PCP Family Medicine; Visit Provider Family Medicine
DX: U07.1 COVID-19 (principal); J12.89 Other viral pneumonia; J96.01 Acute respiratory failure with hypoxia; N17.9 Acute kidney failure, unspecified; I13.0 Hypertensive heart and chronic kidney disease with heart failure and stage 1 through stage 4 chronic kidney disease, or unspecified chronic kidney disease; N39.0 Urinary tract infection, site not specified; G93.49 Other encephalopathy; E87.1 Hypo-osmolality and hyponatremia; I50.30 Unspecified diastolic (congestive) heart failure; N18.4 Chronic kidney disease, stage 4 (severe); I48.91 Unspecified atrial fibrillation; E11.22 Type 2 diabetes mellitus with diabetic chronic kidney disease; Z79.4 Long term (current) use of insulin; E78.5 Hyperlipidemia, unspecified; E03.9 Hypothyroidism, unspecified; E66.9 Obesity, unspecified; Z68.35 Body mass index [BMI] 35.0-35.9, adult; I45.81 Long QT syndrome; D64.9 Anemia, unspecified; B95.2 Enterococcus as the cause of diseases classified elsewhere; Z79.82 Long term (current) use of aspirin; E86.0 Dehydration; K21.9 Gastro-esophageal reflux disease without esophagitis; Z87.891 Personal history of nicotine dependence
CPT/HCPCS: 12345; 36415; 36416; 36430; 36600; 51702; 70450; 71045; 76770; 80053; 81001; 82436; 82533; 82550; 82570; 82607; 82728; 82746; 82803; 82962; 83036; 83540; 83550; 83605; 83690; 83735; 83880; 83935; 84100; 84133; 84145; 84156; 84300; 84443; 84484; 84540; 85007; 85014; 85018; 85025; 85378; 85384; 85610; 85730; 85999; 86140; 86403; 86850; 86900; 86920; 87040; 87077; 87086; 87186; 87426; 93005; 93306; 94640; 96361; 96372; 96374; 96375; 97110; 97161; 97530; 99283; 99284; J1100; J1644; J1650; J1815; J1940; J1956; J2405; J2765; J3475; J3535; J7030; J7040; P9016; Q3014

== ENCOUNTER 2020-08-31 08:15 | Emergency (ER) | payer MEDICARE, BC, SELFPAY ==
[2020-08-31 08:20] VITALS: BP 148/58; PULSE 127; RESP 17; O2SAT 97; BMI 32.0
--- NOTE | 2020-08-31 08:24 | XR_ITS ---
WS: [id number] LEFT ANKLE: 3 VIEW(S) TECHNIQUE: AP, oblique(s) and lateral. HISTORY: pain COMPARISON: None available. Normal anatomic alignment with no fracture or dislocation. Mild osteopenia. Diffuse moderate soft tissue edema. There is also very small joint effusion. No significant degenerative changes at the joint spaces. Peripheral vascular calcifications. XR/XR ankle LT min 3V* [id number] IMPRESSION: 1. No fracture. 2. Moderate diffuse soft tissue edema.
[2020-08-31 08:42] VITALS: BP 129/60; O2SAT 97
--- NOTE | 2020-08-31 09:32 | ED_ITS ---
HPI - Extremity Problem General: Chief complaint: Extremity Injury, Lower Stated complaint: LEFT ANKLE PAIN Time Seen by Provider: 08/31/20 08:23 History of Present Illness: HPI Narrative: 80-year-old female presented emergency room by private vehicle. She fell yesterday in her home in her bedroom shift walking around the foot of the bed and stumbled or caught her foot on something and she fell. She is on Eliquis as well. She did not strike her head she did not lose consciousness no other injuries besides pain to the left ankle initially she is able to walk on it became progressively more swollen and painful now she is having difficult time walking on it. MD Complaint: joint swelling and joint pain Onset (ago): hour(s) Pain Consistency: constant Location: left Quality: aching Radiation: none Relieving factors: cold therapy, immobilization and elevation Exacerbating factors: range of motion, weight bearing and walking Associated symptoms: Reports arthralgias; Deny chest pain, fever(s), myalgias, rash or short of breath Review of Systems Const: Denies: fever(s) ENMT: Denies: throat pain, ear or mastoid pain, nasal discharge or nasal congestion Card: Denies: chest pain Resp: Denies: dyspnea, productive cough or non-productive cough GI: Denies: abdominal pain, nausea, vomiting, hematemesis, coffee ground emesis, diarrhea, constipation, bloating, hematochezia or melena : Denies: flank pain, difficulty voiding, dysuria, urinary frequency or urinary urgency Skin/Breast: Denies: rash PFSH ED PFSH: Medical History CHF (congestive heart failure) CKD (chronic kidney disease) Diabetes GERD (gastroesophageal reflux disease) HTN (hypertension) Hypothyroidism PVC (premature ventricular contraction) Surgical History S/P cataract extraction S/P cervical spinal fusion S/P tonsillectomy Status post tubal ligation Family History Mother Hypertension Grandmother Hypertension MATERNAL Other Cancer Diabetes Social History Smoking and tobacco status: former smoker Household members: spouse Marital status: Physical Exam Const: COMMON NORMALS: no acute distress GENERAL APPEARANCE: cooperative and comfortable ORIENTATION/CONSCIOUSNESS: Yes awake, Yes oriented to person, Yes oriented to place and Yes oriented to time HENMT: COMMON NORMALS: normocephalic, atraumatic and hearing grossly normal bilaterally HEAD & SCALP: normocephalic and atraumatic Neck/C-Spine: COMMON NORMALS: no JVD Resp: COMMON NORMALS: normal respiratory effort, No retractions, No use of accessory muscles and clear to auscultation bilaterally AUSCULTATION: clear to auscultation bilaterally Cardio: COMMON NORMALS: no JVD, regular rate, regular rhythm and No murmurs present (Cardio) RATE: regular rate RHYTHM: regular rhythm GI: COMMON NORMALS: Soft to palpation and No hepatosplenomegaly present AUSCULTATION: Yes normoactive bowel sounds PALPATION: Yes Soft to palpation, No Tenderness to palpation present (GI), No Guarding due to palpation present (GI) and Yes No hepatosplenomegaly present Extremity: NARRATIVE EXTREMITY EXAM: Swelling and ecchymosis of the right ankle and mid tibia. Good peripheral pulses neurovascularly intact x-rays are negative no obvious deformity Neuro: SENSORIUM/ORIENTATION: Yes oriented to person, Yes oriented to place and Yes oriented to time Skin: COMMON NORMALS: no rashes or lesions noted GENERAL SKIN EXAM: no rashes or lesions noted Course Vital Signs: Vital signs: Vital Signs Pulse Rate 121 H 08/31/20 10:00 Respiratory Rate 18 08/31/20 10:00 Blood Pressure 123/79 08/31/20 10:00 Pulse Oximetry 96 08/31/20 10:00 MDM - Extremity (Nontraumatic) MDM Narrative: Medical decision making narrative: Viewed findings the patient no fractures the daughter and patient would like some kind of immobilization in the leg a splint would stand up to use in a walker with partial weightbearing we will write him a prescription for a cam walker I did discuss that was not sure if insurance actually cover it since she had no fracture ice elevate compress if not improving recheck with primary care this coming week. Discharge Plan Discharge Patient Disposition: Home Clinical Impression: Ankle sprain and strain, Current use of [facility] antico[facility], Atrial fibrillation with controlled ventricular rate Condition: Stable Prescriptions: New hydrocodone-acetaminophen 5-325 mg tablet 1 tab PO Q6H PRN (Reason: pain) Qty: 15 RF: 0 No Action coenzyme Q10 [CoQ-10] 100 mg capsule 100 mg PO DAILY RF: 0 docusate sodium [Stool Softener] 100 mg capsule 100 mg PO DAILY RF: 0 ferrous sulfate 325 mg (65 mg iron) tablet 325 mg PO BID RF: 0 Lasix 20 mg tablet 20 mg PO DAILY PRN (Reason: edema or shortness of breath) 30 Days Qty: 30 RF: 3 insulin lispro [Humalog U-100 Insulin] 100 unit/mL solution See Rx Instructions .ROUTE .COMPLEX RF: 0 levothyroxine 75 mcg tablet 75 mcg PO DAILY RF: 0 potassium chloride [Klor-Con M10] 10 mEq tablet,ER particles/crystals 20 meq PO DAILY RF: 0 doxazosin 2 mg tablet 2 mg PO BEDTIME RF: 0 aspirin [Aspir-81] 81 mg tablet,delayed release (DR/EC) 81 mg PO DAILY RF: 0 clonidine HCl 0.1 mg tablet 0.1 mg PO PRN PRN (Reason: hypertensive emergency) RF: 0 atorvastatin 10 mg tablet 5 mg PO DAILY RF: 0 Eliquis 5 mg tablet 2.5 mg PO Q12H Qty: 60 RF: 2 diltiazem HCl 300 mg capsule,extended release 24hr 300 mg PO DAILY Qty: 60 RF: 2 metoprolol succinate 50 mg tablet extended release 24 hr 50 mg PO 2100 Qty: 60 RF: 2 metoprolol succinate 100 mg tablet extended release 24 hr 100 mg PO QAM Qty: 60 RF: 2 pantoprazole 40 mg tablet,delayed release (DR/EC) 40 mg PO Q12H Qty: 60 RF: 2 acetaminophen [Tylenol Extra Strength] 500 mg Tablet 500 - 1,000 mg PO PRN RF: 0 [id number] Tablet 1 tab PO DAILY RF: 0 omega-3 fatty acids Capsule 1,000 mg PO DAILY RF: 0 turmeric root extract 500 mg Capsule 500 mg PO DAILY RF: 0 Advair Diskus 250-50 mcg/dose Blister With Device 1 ea inhalation BID.RESPIRATORY Qty: 60 RF: 0 mirtazapine 15 mg Tablet 15 mg PO BEDTIME 30 Days Qty: 30 RF: 0 Lantus U-100 Insulin 100 unit/mL solution 15 unit SUBCUT BEDTIME Qty: 0 RF: 0 prednisone 10 mg tablet See Rx Instructions .ROUTE .COMPLEX Qty: 53 RF: 0 Vitamin C 1,000 mg tablet 1 g PO BID 30 Days Qty: 60 RF: 0 zinc 50 mg tablet 50 mg PO DAILY 30 Days Qty: 30 RF: 0 Discharge Orders: Discharge ED (Routine); Ordered 08/31/20 Ordered By: Zachariah Brock Referrals: Mann Garduno MD [Primary Care Provider] - Discharge Diet: Usual diet Discharge Activity: Increase activity as tolerated Activity Restrictions/Additional Instructions: Elevate leg whenever possible. Apply ice 20 minutes at a time 3-4 times per day. Follow-up with your primary care doctor in 5 to 7 days if not improving. Walker as needed for ambulation. Coding Level of Care Code ED Manager Work for [facility]
[2020-08-31 10:00] VITALS: BP 123/79; PULSE 121; RESP 18; O2SAT 96
== END 2020-08-31 10:11 | disposition home or self-care (01) ==
PROVIDERS: Emergency Provider Family Medicine; PCP Family Medicine
DX: S93.402A Sprain of unspecified ligament of left ankle, initial encounter (principal); S96.912A Strain of unspecified muscle and tendon at ankle and foot level, left foot, initial encounter; Z79.01 Long term (current) use of anticoagulants; I48.91 Unspecified atrial fibrillation; Z79.82 Long term (current) use of aspirin; Z79.4 Long term (current) use of insulin; I11.0 Hypertensive heart disease with heart failure; I50.9 Heart failure, unspecified; E11.9 Type 2 diabetes mellitus without complications; Z87.891 Personal history of nicotine dependence; W01.0XXA Fall on same level from slipping, tripping and stumbling without subsequent striking against object, initial encounter
CPT/HCPCS: 12345; 73610; 99282

== ENCOUNTER 2020-09-07 08:44 | Inpatient (IN) | payer MEDICARE, BC, SELFPAY ==
[2020-09-07] VITALS (9 sets, daily range): BP systolic 107–145; BP diastolic 65–114; PULSE 95–134; RESP 16–25; TEMP 36.8–37.6; O2SAT 89–99; BMI 31.4
--- NOTE | 2020-09-07 08:52 | ECG_ITS ---
[facility] Test Date: 2020-09-07 Pat Name: Luiza Cooper Department: Room: Gender: Female Credit Card Control Clerk: : 1940 Requested By: Chris Blanc Order Number: [id number] Shirley MD: Liliane Almendarez M.D. Measurements Intervals [place] Rate: 114 P: DC: QRS: 79 QRSD: 89 T: 59 QT: 310 QTc: 428 Interpretive Statements ATRIAL FIBRILLATION WITH RAPID VENTRICULAR RESPONSE LOW QRS VOLTAGE [QRS DEFLECTION < 0.5/1.0 mV IN LIMB/CHEST LEADS] MODERATE ST DEPRESSION [0.05+ mV ST DEPRESSION] Compared to ECG 08/06/2020 05:29:38 ST (T wave) deviation now present Electronically Signed On 09-07-2020 18:33:44 ASSISTANT PROFESSOR OF ECONOMICS by Liliane Almendarez M.D. [id number]
--- NOTE | 2020-09-07 09:02 | XR_ITS ---
WS: [id number] XR chest 1V portable [id number] REASON FOR EXAM: shortness of breath FINDINGS: Diffuse interstitial and alveolar infiltrative changes in both lungs and bilateral pleural effusions. The findings are progressive compared to 08/10/2020. Findings are progressive compared to 08/05/2020 . No new findings. XR/XR chest 1V portable [id number] IMPRESSION: Progression of lung abnormality as above the findings are most compatible with congestive heart failure however an acute pneumonitis superimposed on abnormal lung is possible.
[2020-09-07 09:44] LABS: Basophils % 0.6 %; Eosinophils # 0.1 10^3/uL (0.0-0.8); Eosinophils % 1.1 %; Hematocrit 27.5 % (37.0-47.0); Hemoglobin 8.2 g/dL (11.5-15.3); Lymphocytes # 0.8 10^3/uL (0.8-4.8); Lymphocytes % 10.9 %; Mean Corpuscular HGB Conc 29.8 g/dL (30.0-36.0); Mean Corpuscular Hemoglobin 31.2 pg (28.0-34.0); Mean Corpuscular Volume 104.6 fL (81-99); Mean Platelet Volume 9.7 fL (7.4-10.4); Monocytes # 0.3 10^3/uL (0.2-0.9); Monocytes % 4.1 %; Neutrophils # 5.89 10^3/uL (1.8-7.7); Neutrophils % 81.5 %; Nucleated Red Blood Cells % 0.3 %; Platelet Count 227 10^3/cmm (130-400); Red Blood Count 2.63 10^6/uL (4.1-5.3); Red Cell Distribution Width 18.9 % (12.1-15.1); White Blood Count 7.2 10^3/uL (4.0-10.0)
[2020-09-07 09:47] LABS: INR 0.72 (0.8-1.2)
[2020-09-07 09:53] LABS: Alanine Aminotransferase 25 U/L (0-33); Albumin Level 3.2 g/dL (3.5-5.2); Alkaline Phosphatase 67 IU/L (35-105); Blood Urea Nitrogen 36 mg/dL (8-23); Calcium 8.7 mg/dL (8.5-10.5); Carbon Dioxide 29 mmol/L (22-29); Chloride 98 mmol/L (98-107); Globulin 2.2 g/dL (1.3-4.6); Glucose 147 mg/dL (65-115); Osmolality Calculated 297 mOsm/kg (285-295); Sodium 138 mmol/L (136-145); Total Bilirubin 0.6 mg/dL (0.15-1.2); Total Protein 5.4 g/dL (6.6-8.7)
[2020-09-07 09:57] LABS: Anion Gap 15.5 (5-19); Aspartate Amino Transferase 16 U/L (0-32); Potassium 4.5 mmol/L (3.5-5.1)
[2020-09-07 09:58] LABS: Troponin(5th) Baseline 141 ng/L (0-10)
[2020-09-07] MEDS: FUROsemide 10 mg/mL SDV 4mL 40 MG IVP ×2 (10:29→21:14)
--- NOTE | 2020-09-07 10:42 | W.ED.GENADLT ---
HPI - General Adult General: Chief complaint: General Medical Stated complaint: increased edema, needs labs Time Seen by Provider: 09/07/20 08:52 History of Present Illness: HPI narrative: Patient is well-appearing 8-year-old female seen for multiple complaints. She states that she got COVID-19 roughly 1 month ago, and since that time she has had multiple ailments, including new onset atrial fibrillation for which she takes Eliquis, she is required multiple blood transfusions, and now takes Lasix for fluid overload. She also has suffered from renal failure She was seen in the clinic today and sent to the emergency department for further work-up as she has markedly more swelling on her legs and worse dyspnea and orthopnea than usual. She denies chest pain, chest pressure, lightheadedness, nausea, abdominal pain, recent fever. She endorses continued dyspnea on exertion which is getting worse and not better with time. She complains of dark stools but also states she takes iron supplements. She has no other acute complaints. Review of Systems General: Reports: 10 or more systems reviewed and unremarkable except in HPI and below PFSH ED PFSH: Medical History CHF (congestive heart failure) CKD (chronic kidney disease) Diabetes GERD (gastroesophageal reflux disease) HTN (hypertension) Hypothyroidism PVC (premature ventricular contraction) Surgical History S/P cataract extraction S/P cervical spinal fusion S/P tonsillectomy Status post tubal ligation Family History Mother Hypertension Grandmother Hypertension MATERNAL Other Cancer Diabetes Social History (Updated 09/07/20 @ 08:59 by Davian Alvarado RN) Smoking and tobacco status: former smoker Alcohol intake: never Household members: spouse Marital status: Physical Exam Const: COMMON NORMALS: no acute distress, patient oriented x3 and alert HENMT: COMMON NORMALS: normocephalic and atraumatic HEAD & SCALP: normocephalic and atraumatic Eye: COMMON NORMALS: Equal, round and reactive pupils present, EOMs intact bilaterally and no scleral icterus PUPIL: Yes Equal, round and reactive pupils present Resp: COMMON NORMALS: normal respiratory effort and No retractions AUSCULTATION: crackles Cardio: COMMON NORMALS: No murmurs present (Cardio) and Peripheral pulses 2+ throughout RATE: tachycardic RHYTHM: abnormal rhythm irregularly irregular PERIPHERAL PULSES: Peripheral pulses 2+ throughout GI: COMMON NORMALS: Normal to inspection, nondistended, normoactive bowel sounds present, Soft to palpation and non-tender PALPATION: Yes Soft to palpation Extremity: GENERAL: Yes edema (2+ Which patient states increased rapidly over the last 3 days) Neuro: COMMON NORMALS: patient oriented x3 SENSORIUM/ORIENTATION: Yes alert Skin: COMMON NORMALS: no rashes or lesions noted GENERAL SKIN EXAM: no rashes or lesions noted Course Vital Signs: Vital signs: Vital Signs Temperature 98.3 F 09/07/20 08:52 Pulse Rate 134 H 09/07/20 08:52 Respiratory Rate 18 09/07/20 08:52 Blood Pressure 122/73 09/07/20 08:52 Pulse Oximetry 97 09/07/20 08:52 MDM - General Adult MDM Narrative: Medical decision making narrative: Patient arrived in atrial fibrillation with RVR with a rate of roughly 110. She has rapidly exacerbating edema of the bilateral lower extremities. Chest x-ray is concerning for fluid overload. Creatinine is 1.9 down from baseline of 2.6. Troponin is elevated but I suspect that is secondary to A. fib and fluid overload. I do not suspect ACS at this time. She was given 40 mg of IV Lasix and will be admitted to the hospitalist service for further observation and care. Differential includes but is not limited to CHF exacerbation, ACS, pneumonia, acute kidney injury, peripheral edema, orthopnea, upper GI bleed, atrial fibrillation with RVR, other Lab Data: Labs: Lab Results 09/07/20 09/07/20 09/07/20 Range/Units 09:00 09:00 09:00 WBC 7.2 (4.0-10.0) 10^3/ uL RBC 2.63 L (4.1-5.3) 10^6/u L Hgb 8.2 L (11.5-15.3) g/dL Hct 27.5 L (37.0-47.0) % MCV 104.6 H (81-99) fL MCH 31.2 (28.0-34.0) pg MCHC 29.8 L (30.0-36.0) g/dL RDW 18.9 H (12.1-15.1) % Plt Count 227 (130-400) 10^3/c mm MPV 9.7 (7.4-10.4) fL Neut % (Auto) 81.5 % Lymph % (Auto) 10.9 % [place] % (Auto) 4.1 % Eos % (Auto) 1.1 % Baso % (Auto) 0.6 % Neut # (Auto) 5.89 (1.8-7.7) 10^3/u L Lymph # (Auto) 0.8 (0.8-4.8) 10^3/u L [place] # (Auto) 0.3 (0.2-0.9) 10^3/u L Eos # (Auto) 0.1 (0.0-0.8) 10^3/u L Baso # (Auto) 0.0 (0.0-0.1) 10^3/u L Nucleated RBC % (a uto) 0.3 % Nucleated RBCs # 0.0 /100WBC PT (12.1-14.9) SECO NDS INR (0.8-1.2) Sodium 138 (136-145) mmol/L Potassium 4.5 (3.5-5.1) mmol/L Chloride 98 (98-107) mmol/L Carbon Dioxide 29 (22-29) mmol/L Anion Gap 15.5 (5-19) BUN 36 H (8-23) mg/dL Creatinine 1.9 H (0.5-0.9) mg/dL GFR Calculation Not Reportable Glucose 147 H (65-115) mg/dL Calculated Osmolal ity 297 H (285-295) mOsm/k g Calcium 8.7 (8.5-10.5) mg/dL Total Bilirubin 0.6 (0.15-1.2) mg/dL AST 16 (0-32) U/L ALT 25 (0-33) U/L Alkaline Phosphata se 67 (35-105) IU/L Troponin T Baselin e 141 H* (0-10) ng/L Total Protein 5.4 L (6.6-8.7) g/dL Albumin 3.2 L (3.5-5.2) g/dL Globulin 2.2 (1.3-4.6) g/dL Blood Type Rho(D) Type Antibody Screen 09/07/20 09/07/20 Range/Units 09:00 09:00 WBC (4.0-10.0) 10^3/ uL RBC (4.1-5.3) 10^6/u L Hgb (11.5-15.3) g/dL Hct (37.0-47.0) % MCV (81-99) fL MCH (28.0-34.0) pg MCHC (30.0-36.0) g/dL RDW (12.1-15.1) % Plt Count (130-400) 10^3/c mm MPV (7.4-10.4) fL Neut % (Auto) % Lymph % (Auto) % [place] % (Auto) % Eos % (Auto) % Baso % (Auto) % Neut # (Auto) (1.8-7.7) 10^3/u L Lymph # (Auto) (0.8-4.8) 10^3/u L [place] # (Auto) (0.2-0.9) 10^3/u L Eos # (Auto) (0.0-0.8) 10^3/u L Baso # (Auto) (0.0-0.1) 10^3/u L Nucleated RBC % (a uto) % Nucleated RBCs # /100WBC PT 10.40 L (12.1-14.9) SECO NDS INR 0.72 L (0.8-1.2) Sodium (136-145) mmol/L Potassium (3.5-5.1) mmol/L Chloride (98-107) mmol/L Carbon Dioxide (22-29) mmol/L Anion Gap (5-19) BUN (8-23) mg/dL Creatinine (0.5-0.9) mg/dL GFR Calculation Glucose (65-115) mg/dL Calculated Osmolal ity (285-295) mOsm/k g Calcium (8.5-10.5) mg/dL Total Bilirubin (0.15-1.2) mg/dL AST (0-32) U/L ALT (0-33) U/L Alkaline Phosphata se (35-105) IU/L Troponin T Baselin e (0-10) ng/L Total Protein (6.6-8.7) g/dL Albumin (3.5-5.2) g/dL Globulin (1.3-4.6) g/dL Blood Type A Positive Rho(D) Type Positive Antibody Screen Negative EKG Data^: EKG 1: EKG interpretation date: 09/07/20 EKG interpretation time: 09:04 Interpretation: Atrial fibrillation with rapid ventricular response, rate of 114, no ST elevation or depression, intervals within normal limits. Computer generated interpretation: Chest X-Ray 09/07/20 09:02 IMPRESSION: Progression of lung abnormality as above the findings are most compatible with congestive heart failure however an acute pneumonitis superimposed on abnormal lung is possible. Discharge Plan Discharge Patient Disposition: Admitted As Inpatient Clinical Impression: Atrial fibrillation with rapid ventricular response, Acute exacerbation of CHF (congestive heart failure), ANSON (acute kidney injury) Condition: Stable Coding Level of Care Code ED Market Consultant for [facility]
--- NOTE | 2020-09-07 11:20 | P.HP_ITS ---
Providers/Chief Complaint Admitting Physician: Gabriele Rosales MD Primary Care Provider: Mann Garduno MD Chief Complaint: abnormal labs/ swelling History of Present Illness Luiza Cooper is a 80 year old female who presents to the hospital secondary to lower extremity swelling, frequent elevated heart rate, and at the behest of her physician for paleness. She has been more short of breath than usual. This increases with laying flat and exerting herself. She has had no vomiting, chest discomfort. No fever. She was recently hospitalized for COVID-19 pneumonia from August 02 through August 10. She developed atrial fibrillation at that time and was treated with Cardizem and metoprolol. She also had significant anemia requiring transfusion, and was treated for enterococcal UTI. She has been on anticoagulation since discharge with Eliquis of 2.5 mg twice daily. Previous anemia work-up included normal B12, folate, TSH levels. Iron saturation was normal previously. Review of Systems General: Reports: 10 or more systems reviewed and unremarkable except in HPI and below Const: Denies: fever(s) or chills Eyes: Denies: change in vision ENMT: Denies: throat pain Card: Reports: swelling of feet/ankles and dyspnea on exertion; Denies: chest pain Resp: Reports: dyspnea and wheezing GI: Denies: abdominal pain : Denies: flank pain Musc: Denies: neck pain Skin/Breast: Denies: rash Neuro: Denies: headache(s) Psych: Denies: anxiety Endo: Denies: polyuria [place]/Lymph: Denies: easy bruising All/Imm: Denies: urticaria Medications/Allergies Home Medications Medication Instructions Recorded Confirmed Last Taken Type atorvastatin 10 mg tablet 5 mg PO DAILY@18 tab 03/15/20 09/07/20 09/06/20 History clonidine HCl 0.1 mg tablet 0.1 mg PO PRN PRN tab 03/15/20 09/07/20 Unknown History doxazosin 2 mg tablet 2 mg PO BEDTIME@03/15/20 09/07/20 09/06/20 History insulin lispro 100 unit/mL See Rx Instructions .ROUTE .COMPLEX 03/15/20 09/07/20 09/06/20 History subcutaneous solution levothyroxine 75 mcg tablet 75 mcg PO DAILY@03/15/20 09/07/20 09/07/20 History potassium chloride 10 mEq 20 meq PO DAILY@ tab 03/15/20 09/07/20 09/07/20 History tablet,extended release(part/cryst) coenzyme Q10 100 mg capsule 100 mg PO DAILY@18 03/26/20 09/07/20 09/06/20 History docusate sodium 100 mg capsule 100 mg PO DAILY@08 03/26/20 09/07/20 09/07/20 History ferrous sulfate 325 mg (65 mg 325 mg PO TID@,,03/26/20 09/07/20 09/07/20 History iron) tablet acetaminophen [Tylenol Extra 500 - 1,000 mg PO PRN PRN 07/31/20 09/07/20 Unknown History Strength] iuwispulwzho-ckalnxrq-hmvkmr 1 tab PO DAILY@07/31/20 09/07/20 09/07/20 History turmeric root extract 500 mg PO DAILY@07/31/20 09/07/20 09/07/20 History apixaban 5 mg tablet 2.5 mg PO Q12H #60 tab 08/28/20 09/07/20 09/07/20 Rx hydrocodone-acetaminophen 1 tab PO Q6H PRN #15 tab 08/31/20 09/07/20 Unknown Rx Lantus U-100 Insulin 15 unit SUBCUT BEDTIME@09/07/20 09/07/20 09/06/20 Hi story albuterol sulfate 1 puff INHALATION Q6H PRN 09/07/20 09/07/20 Unknown History ascorbic acid (vitamin C) [Vitamin 1 g PO DAILY@09/07/20 09/07/20 09/07/20 History C] aspirin 81 mg PO DAILY@09/07/20 09/07/20 09/06/20 History clindamycin HCl 300 mg PO TID@,,09/07/20 09/07/20 09/07/20 History diltiazem HCl 300 mg PO DAILY@09/07/20 09/07/20 09/07/20 History fluticasone propion-salmeterol 1 ea INHALATION BID 09/07/20 09/07/20 Unknown History [Advair Diskus] furosemide [Lasix] 40 mg PO DAILY@09/07/20 09/07/20 09/07/20 History metoprolol succinate 50 mg PO DAILY@09/07/20 09/07/20 09/06/20 History metoprolol succinate 100 mg PO DAILY@09/07/20 09/07/20 09/07/20 History omega-3 fatty acids [[place] 3] 1,000 mg PO DAILY@09/07/20 09/07/20 09/07/20 History pantoprazole 40 mg PO DAILY@09/07/20 09/07/20 09/07/20 History zinc 100 mg PO DAILY@09/07/20 09/07/20 09/07/20 History Allergies Allergy/AdvReac Type Severity Reaction Status Date / Time Penicillins Allergy Unknown Unknown Verified 08/27/20 10:21 PFSH Acute PFSH: Medical History (Updated 09/07/20 @ 15:19 by Gabriele Rosales MD) Atrial fibrillation CHF (congestive heart failure) CKD (chronic kidney disease) COVID-19 Diagnosed 08/02/2020 Diabetes GERD (gastroesophageal reflux disease) HTN (hypertension) Hypothyroidism PVC (premature ventricular contraction) Surgical History S/P cataract extraction S/P cervical spinal fusion S/P tonsillectomy Status post tubal ligation Family History Mother Hypertension Grandmother Hypertension MATERNAL Other Cancer Diabetes Social History Smoking and tobacco status: former smoker Alcohol intake: never Household members: spouse Marital status: Vitals/I&O/Wt Last Vital Signs Temp 98.3 F 09/07/20 08:52 Pulse 134 H 09/07/20 08:52 Resp 18 09/07/20 08:52 BP 122/73 09/07/20 08:52 Pulse Ox 97 09/07/20 08:52 Weight last 48 hrs Weight 78.018 kg Physical Exam Narrative: EXAM NARRATIVE: General exam demonstrates a white female, with mild shortness of breath, in no apparent distress HEENT: Pupils equally round. Oropharynx clear. Neck is supple no lymphadenopathy or thyromegaly Cardiovascular irregular, irregular with accelerated rate Lungs crackles bibasilar Abdomen is soft with positive bowel sounds. No obvious organomegaly was deferred Extremities 1-2+ edema bilaterally. Cap refill brisk less than 2 seconds. Skin no rash Neuro no obvious focal deficits Per patient report there is a decubitus, right buttocks which I was unable to visualize during exam in the emergency department. Alerted nurse to visualize when she arrives on the floor. Data : 09/07/20 09:00 09/07/20 09:00 Other data: MCV elevated at 104 Troponin I 41, repeat 130 Urinalysis pending Chest x-ray bilateral diffuse alveolar infiltrates, slightly worse than previous chest x-ray done August 10. This was visualized by me. Previous renal ultrasound August 05, 2020 no obstruction EKG demonstrated atrial fibrillation with rapid ventricular rate, normal axis, nonspecific ST-T wave changes. A&P Assessment and plan (1) Acute exacerbation of CHF (congestive heart failure): Admission to cardiac stepdown floor Telemetry Initiate diuresis with Lasix 40 mg IV every 12 hours BNP for baseline Has significant lower extremity edema attributed to CHF. Check venous duplex to make sure no evidence of DVT. Has been on Eliquis, but lower dose of 2.5 mg twice daily No need to repeat echocardiogram which was done previously. Consider fluid restriction if does not diurese appropriately Urinary catheter for accurate ins and outs. Status: Acute (2) Atrial fibrillation with rapid ventricular response: Increase metoprolol to 100 mg twice daily. Continue Cardizem Monitor for improvement of rate control. Hopefully can get resting heart rate less than 100. According to the patient it is frequently over this at home Status: Acute (3) Anemia: Some element of acute on chronic anemia. Check stool Hemoccult In part may be secondary to chronic kidney disease Has not yet undergone diagnostic work-up with EGD or colonoscopy Will need follow-up as an outpatient No need for transfusion currently. This may increase with diuresis. Status: Acute (4) CKD (chronic kidney disease): Renal function appears improved from prior levels Monitor closely as diuresis proceeds Avoid renal toxic medication No need to repeat renal ultrasound which was done previously. Status: Acute Additional A&P Information Covid 19 pneumonia, diagnosed in July. No need for quarantine now. Still has significant infiltrates on x-ray which is likely residual changes from Covid 19 with pulmonary fibrosis, with superimposed edema Diabetes, sliding scale insulin Multiple other medical problems as documented in past medical history Buttock Decub, continued wound care, keep pressure off Full code Eliquis will suffice for DVT prophylaxis Attestations Medical Necessity Statement*: Will need greater than 2 midnight stay for treatment of CHF with A. fib with RVR requiring diuresis Time Spent in Patient Care: Greater than 35 minutes Coding Level of Care Code Acute Party Plan Sales Consultant for Chg Fwd Diagnoses Acute exacerbation of CHF (congestive heart failure) I50.9 Atrial fibrillation with rapid ventricular response I48.91 Anemia D64.9 CKD (chronic kidney disease) N18.9
[2020-09-07 11:48] LABS: Troponin 5 2HR 129.7 ng/L (0-10); Troponin 5 2HR Delta -11.3 ABS# (0-10)
--- NOTE | 2020-09-07 12:29 | ECG_ITS ---
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 Measurements Intervals [place] Rate: 118 P: ND: QRS: 60 QRSD: 92 T: 64 QT: 318 QTc: 447 Interpretive Statements ATRIAL FIBRILLATION WITH RAPID VENTRICULAR RESPONSE LOW QRS VOLTAGE [QRS DEFLECTION < 0.5/1.0 mV IN LIMB/CHEST LEADS] Compared to ECG 09/07/2020 09:03:25 ST (T wave) deviation no longer present Electronically Signed On 09-07-2020 18:40:09 DIET CLERK by Liliane Almendarez M.D. [id number] roz
--- NOTE | 2020-09-07 12:46 | PC.NURSE ---
From ER Received pt from ER via stretcher. Pt is alert, awake, oriented. Denies any pain or discomfort. Noted pressure sores on her sacrum and right buttock. Noted large bruise on posterior knee. oriented pt to staff. Call light within reach.
[2020-09-07 12:48] LABS: Glucose Point of Care 127 mg/dL (70-110)
--- NOTE | 2020-09-07 13:24 | PC.NURSE ---
Pt stated she took all her morning meds Verified if she took her eliquis, pt stated she usually take it at 7 am and 7 pm. She usually takes protonix in the morning.
--- NOTE | 2020-09-07 15:16 | USR_ITS ---
PROCEDURE INFORMATION: Exam: US Duplex Lower Extremity Veins, Bilateral Exam date and time: 09/07/2020 4:00 PM Age: 80 years old Clinical indication: Edema, localized; Lower extremity, right and lower extremity, left TECHNIQUE: Imaging protocol: Real-time duplex ultrasound of the extremities with 2-D anderson scale, color Doppler flow and spectral waveform analysis with image documentation. Complete exam focused on the bilateral lower extremity veins. COMPARISON: No relevant prior studies available. FINDINGS: Right deep veins: Unremarkable. The common femoral, femoral, proximal profunda femoral and popliteal veins are patent without thrombus. Normal Doppler waveforms. Normal compressibility and/or augmentation response. Right superficial veins: Saphenofemoral junction is patent without thrombus. Left deep veins: Unremarkable. The common femoral, femoral, proximal profunda femoral and popliteal veins are patent without thrombus. Normal Doppler waveforms. Normal compressibility and/or augmentation response. Left superficial veins: Saphenofemoral junction is patent without thrombus. Soft tissues: Unremarkable. US/CV venous duplex [facility] [id number] IMPRESSION: No evidence of deep vein thrombosis, bilateral lower extremities.
[2020-09-07 15:22] LABS: Add Urine Culture? No; Add Urine Microscopic? YES; Bacteria Urine 1+ /hpf; Bilirubin Urine Neg (Negative); Blood Urine Neg (Negative); Glucose Urine UA Norm (Normal); Ketones Urine Negative (Negative); Leukocyte Esterase Urine Negative (Negative); Nitrate Urine Negative (Negative); Protein Urine 1+ (Negative); RBC Urine 0-4 /hpf (0-2); Squamous Epithelial Cell Urine 0-4 /hpf (0-5); Urine Appearance Clear (CLEAR); Urine Color Yellow (Yellow); Urobilinogen Urine Norm (Negative)
[2020-09-07 15:48] LABS: NT Pro B Type Natriuretic Pept 4837 pg/mL (0-450); Procalcitonin 0.12 ng/mL (0-0.5)
[2020-09-07 16:24] LABS: Glucose Point of Care 179 mg/dL (70-110)
[2020-09-07 16:31] LABS: Troponin 5 6HR 137.7 ng/L (0-10); Troponin 5 6HR Delta -3.3 ng/L (0-12)
[2020-09-07] MEDS: apixaban 5 mg Tablet 2.5 MG PO (18:09)
[2020-09-07 20:35] LABS: Glucose Point of Care 220 mg/dL (70-110)
[2020-09-07] MEDS: mirtazapine 15 mg Tablet PO (21:13)
[2020-09-07] MEDS: doxazosin 1 mg Tablet 2 MG PO (21:13)
[2020-09-07] MEDS: metoprolol tartrate 50 mg Tablet 100 MG PO (21:14)
[2020-09-07] MEDS: pantoprazole DR 40 mg Tablet PO (23:05)
--- NOTE | 2020-09-07 23:51 | PC.NURSE ---
Patient laying in bed with eyes closed. Corral catheter in place patient alert and oriented X 4 and responsive appropriately to verbal stimuli. Patient able to turn herself and voice needs as necessary. Will continue to monitor and assist as needed following Current plan of Care
[2020-09-08] VITALS (14 sets, daily range): BP systolic 100–128; BP diastolic 65–93; PULSE 85–112; RESP 16–21; TEMP 36.5–36.9; O2SAT 90–98
[2020-09-08 05:08] LABS: Basophils % 0.3 %; Eosinophils # 0.1 10^3/uL (0.0-0.8); Eosinophils % 1.1 %; Hematocrit 25.3 % (37.0-47.0); Hemoglobin 7.5 g/dL (11.5-15.3); Lymphocytes # 1.2 10^3/uL (0.8-4.8); Lymphocytes % 18.3 %; Mean Corpuscular HGB Conc 29.6 g/dL (30.0-36.0); Mean Corpuscular Hemoglobin 31.1 pg (28.0-34.0); Monocytes # 0.3 10^3/uL (0.2-0.9); Monocytes % 4.7 %; Neutrophils # 4.71 10^3/uL (1.8-7.7); Neutrophils % 74.5 %; Nucleated Red Blood Cells % 0.3 %; Platelet Count 224 10^3/cmm (130-400); Red Blood Count 2.41 10^6/uL (4.1-5.3); Red Cell Distribution Width 18.7 % (12.1-15.1); White Blood Count 6.3 10^3/uL (4.0-10.0)
[2020-09-08 06:10] LABS: Alanine Aminotransferase 21 U/L (0-33); Albumin Level 2.9 g/dL (3.5-5.2); Alkaline Phosphatase 60 IU/L (35-105); Blood Urea Nitrogen 35 mg/dL (8-23); Calcium 8.4 mg/dL (8.5-10.5); Carbon Dioxide 28 mmol/L (22-29); Chloride 100 mmol/L (98-107); Globulin 2.5 g/dL (1.3-4.6); Glucose 64 mg/dL (65-115); Osmolality Calculated 294 mOsm/kg (285-295); Sodium 139 mmol/L (136-145); Total Bilirubin 0.4 mg/dL (0.15-1.2); Total Protein 5.4 g/dL (6.6-8.7)
[2020-09-08 06:53] LABS: Glucose Point of Care 87 mg/dL (70-110)
[2020-09-08 07:54] LABS: Anion Gap 14.6 (5-19); Aspartate Amino Transferase 15 U/L (0-32); Potassium 3.6 mmol/L (3.5-5.1)
--- NOTE | 2020-09-08 08:16 | USR_ITS ---
PROCEDURE INFORMATION: Exam: US Chest, Pleural Space Exam date and time: 09/08/2020 9:30 AM Age: 80 years old Clinical indication: Abnormal findings; Abnormal radiologic exam of lung or chest; Additional info: Evaluate for bilateral pleural effusion TECHNIQUE: Imaging protocol: Real time ultrasound of the chest was performed with image documentation. Exam focused on the pleural space. COMPARISON: CT chest wo con [id number] 03/12/2019 9:54 AM FINDINGS: Pleural space: Ultrasound imaging of the chest was performed bilaterally to evaluate pleural effusion. The examination shows a minimal amount of pleural effusion in the right base. On the left side there is moderate-sized pleural effusion in the left base with basilar atelectasis. US/US chest [id number] IMPRESSION: 1. Moderate size left pleural effusion with left basilar atelectasis. 2. Minimal right pleural effusion.
--- NOTE | 2020-09-08 08:36 | PC.OT ---
Patient's lab are contraindicated for therapy at this time, will attempt later.
[2020-09-08] MEDS: folic acid 1 mg Tablet PO (09:31)
[2020-09-08] MEDS: docusate sodium 100 mg Capsule PO (09:31)
[2020-09-08] MEDS: cyanocobalamin 1,000 mcg Tablet 1000 MCG PO (09:31)
[2020-09-08] MEDS: aspirin 81 mg EC Tablet PO (09:31)
[2020-09-08] MEDS: levothyroxine 150 mcg Tablet 75 MCG PO (09:31)
[2020-09-08] MEDS: potassium chloride ER 20 mEq Tablet 40 MEQ PO (09:32)
[2020-09-08] MEDS: dilTIAZem ER (24HR) 300 mg Capsule PO (09:32)
[2020-09-08] MEDS: FUROsemide 10 mg/mL SDV 4mL 40 MG IVP ×2 (09:33→22:58)
[2020-09-08] MEDS: metoprolol tartrate 50 mg Tablet 100 MG PO ×2 (09:35→20:31)
--- NOTE | 2020-09-08 10:59 | PC.CHAP ---
Pastoral Care Encounter/Spiritual Assessment Type of Contact [] Declined inventory control associate visit [] Patient/Family/Request visit [] Outpatient visit [] Follow-up visit [] Physician referral [] Code/Alert [X] Routine visit [] Staff referral [] Actively dying [] Patient sleeping [] Family support [] [] Out of room [] Palliative care [] [] Receiving care in room [] Pre-surgical visit [] Trauma [] Long length of stay [] ICU visit [] Other: Relational/Emotional Strength [X] Patient feels connected with others/family/visitors/staff [] Distress [] Loneliness/isolation [] Abandonment Spirituality of Patient [X] Person of Betty [X] Attends Alevism of their Betty [X] Believes in Prayer [X] Reads Bible or Sabianism materials [] There are Spiritual issues to be addressed Preconstruction Manager Interventions [X] Prayer [X] Active listening [X] Non-anxious presence [] Spiritual/emotional support [] Crisis/trauma care [] Spiritual counseling [] Bereavement support [] Provided bereavement packet [X] Provided Bible/devotional materials [] Provided toy/stuffed animal, coloring book to patient or family member [] Provided Communion [] Anointing/[place] [] Salvation [X] Completed spiritual assessment [] Other: Impact on Illness or Injury [] Angry [] Fearful [] Anxious [] Often cries [] Exhaustion [] Unable to work [] Unable to attend zoroastrianism [] Unable to walk/stand [] Unable to read [] Unable to drive [] Unable to eat/drink [] Unable to sleep [] Unable to be with family [] Patient intubated [] Other: Summary: Pt and have both had COVID and have had significant health issues for the past couple of months. Pt has a great deal of family support and a gnosticism family. Time spent with patient: 10-15 mins
[2020-09-08 11:59] LABS: Glucose Point of Care 161 mg/dL (70-110)
[2020-09-08] MEDS: pantoprazole DR 40 mg Tablet PO (13:13)
--- NOTE | 2020-09-08 14:37 | PM.PN ---
Subjective Subjective: Interval history: Patient was examined this morning, she tells me that she continues to feel weak, but her breathing has improved, is on 2 L, Vitals/I&O/Wt Last Vital Signs Temp 97.7 F 09/08/20 04:00 Pulse 85 09/08/20 14:33 Resp 19 H 09/08/20 13:13 BP 100/66 09/08/20 13:13 Pulse Ox 93 09/08/20 13:13 09/07/20 09/08/20 09/08/20 22:59 06:59 14:59 Intake Total 390 / 390 654 / 654 Output Total 700 / 700 500 / 1200 Balance -310 / -310 -500 / -810 654 / 654 Weight last 48 hrs Weight 78.018 kg Physical Exam Const: COMMON NORMALS: no acute distress and patient oriented x3 HENMT: COMMON NORMALS: normocephalic HEAD & SCALP: normocephalic Neck/C-Spine: COMMON NORMALS: no JVD Resp: COMMON NORMALS: normal respiratory effort, No retractions, No use of accessory muscles and clear to auscultation bilaterally AUSCULTATION: clear to auscultation bilaterally Cardio: COMMON NORMALS: no JVD, regular rate, regular rhythm, S1 normal heart sound present and S2 normal heart sound present RATE: regular rate RHYTHM: regular rhythm HEART SOUNDS: S1 normal heart sound present and S2 normal heart sound present GI: COMMON NORMALS: Normal to inspection, nondistended, normoactive bowel sounds present, Soft to palpation, non-tender, No hepatosplenomegaly present, no masses and no bruits PALPATION: Yes Soft to palpation and Yes No hepatosplenomegaly present Extremity: COMMON NORMALS: capillary refill normal, no clubbing, cyanosis or edema, no calf tenderness and no pedal edema Neuro: COMMON NORMALS: patient oriented x3 Psych: COMMON NORMALS: mental status grossly normal Urinary Catheter Management^: Corral: Cath Placed During This Visit: yes Reason for Continuing Indwelling Catheter: Other Urinary Catheter Date of Insertion: 09/07/20 Urinary Catheter Time of Insertion: 14:20 Data : 09/08/20 04:32 09/08/20 04:32 A&P Assessment and plan (1) Acute exacerbation of CHF (congestive heart failure): Admission to cardiac stepdown floor Telemetry Initiate diuresis with Lasix 40 mg IV every 12 hours Has significant lower extremity edema attributed to CHF. Venous duplex negative for DVT. No need to repeat echocardiogram which was done previously. Fluid restrict 1500 cc Urinary catheter for accurate ins and outs. Status: Acute (2) Atrial fibrillation with rapid ventricular response: Heart rates are better controlled On metoprolol 100 twice daily increase metoprolol to 100 mg twice daily. Continue Cardizem Monitor for improvement of rate control. Hopefully can get resting heart rate less than 100. According to the patient it is frequently over this at home Status: Acute (3) Anemia: Some element of acute on chronic anemia. Hemoglobin down to 7.5 Check stool Hemoccult In part may be secondary to chronic kidney disease Could also be a slow GI bleed Hold Eliquis for now, recheck hemoglobin at noon Transfuse if less than 7 Continue iron, Protonix 40 twice daily, Carafate, monitor hemodynamics Status: Acute (4) CKD (chronic kidney disease): Renal function appears improved from prior levels Monitor closely as diuresis proceeds Avoid renal toxic medication No need to repeat renal ultrasound which was done previously. Status: Acute Additional A&P Information Covid 19 pneumonia, diagnosed in July. No need for quarantine now. Still has significant infiltrates on x-ray which is likely residual changes from Covid 19 with pulmonary fibrosis, with superimposed edema Diabetes, sliding scale insulin Multiple other medical problems as documented in past medical history Buttock Decub, continued wound care, keep pressure off Full code Eliquis on hold, SCDs for DVT prophylaxis Continue to diurese, physical therapy, get out of bed, monitor hemoglobin, Eliquis on hold, add Carafate, Protonix, monitor hemodynamics Attestations Medical Necessity Statement*: Patient requires hospitalization, for acute CHF exacerbation, acute on chronic anemia, A. fib Coding Level of Care Code Acute Vegetable I Farmworker for [facility] Fwd Diagnoses Acute exacerbation of CHF (congestive heart failure) I50.9 Atrial fibrillation with rapid ventricular response I48.91 Anemia D64.9 CKD (chronic kidney disease) N18.9
[2020-09-08 14:53] LABS: LAB Peripheral Smear Sent for Review
[2020-09-08 16:59] LABS: Glucose Point of Care 223 mg/dL (70-110)
[2020-09-08] MEDS: sucralfate 1 gm Tablet PO (18:19)
[2020-09-08 20:30] LABS: Glucose Point of Care 285 mg/dL (70-110)
[2020-09-08] MEDS: doxazosin 1 mg Tablet 2 MG PO (20:30)
[2020-09-08] MEDS: mirtazapine 15 mg Tablet PO (20:31)
[2020-09-09] VITALS (18 sets, daily range): BP systolic 94–135; BP diastolic 53–79; PULSE 76–120; RESP 14–23; TEMP 36.8–37.2; O2SAT 94–100
[2020-09-09] MEDS: pantoprazole DR 40 mg Tablet PO ×3 (00:38→23:54)
--- NOTE | 2020-09-09 05:55 | PC.NURSE ---
PT RESTING IN BED WITH EYES CLOSED. PT HAD AN UNEVENTFUL NIGHT. PT DENIES PAIN AT THIS TIME. WILL CONTINUE TO MONITOR.
[2020-09-09] MEDS: sucralfate 1 gm Tablet PO (06:18)
[2020-09-09 06:34] LABS: Glucose Point of Care 85 mg/dL (70-110)
[2020-09-09 06:46] LABS: Alanine Aminotransferase 16 U/L (0-33); Albumin Level 2.8 g/dL (3.5-5.2); Alkaline Phosphatase 59 IU/L (35-105); Anion Gap 15.1 (5-19); Aspartate Amino Transferase 6 U/L (0-32); Blood Urea Nitrogen 39 mg/dL (8-23); Carbon Dioxide 28 mmol/L (22-29); Chloride 99 mmol/L (98-107); Globulin 2.3 g/dL (1.3-4.6); Glucose 74 mg/dL (65-115); Osmolality Calculated 294 mOsm/kg (285-295); Potassium 4.1 mmol/L (3.5-5.1); Sodium 138 mmol/L (136-145); Total Bilirubin 0.4 mg/dL (0.15-1.2); Total Protein 5.1 g/dL (6.6-8.7)
--- NOTE | 2020-09-09 08:00 | PC.NURSE ---
Dr. Amaro notified patient's HR maintaining 120-130s a fib, BP 114/78. Verbal order to administer PO metoprolol and cardizem and continue to monitor. RBVO.
[2020-09-09] MEDS: metoprolol tartrate 50 mg Tablet 100 MG PO ×2 (08:05→20:37)
[2020-09-09] MEDS: potassium chloride ER 20 mEq Tablet 40 MEQ PO (08:05)
[2020-09-09] MEDS: cyanocobalamin 1,000 mcg Tablet 1000 MCG PO (08:05)
[2020-09-09] MEDS: levothyroxine 150 mcg Tablet 75 MCG PO (08:06)
[2020-09-09] MEDS: dilTIAZem ER (24HR) 300 mg Capsule PO (08:06)
[2020-09-09] MEDS: docusate sodium 100 mg Capsule PO (08:07)
[2020-09-09] MEDS: folic acid 1 mg Tablet PO (08:07)
[2020-09-09 09:40] LABS: Basophils % 0.3 %; Eosinophils # 0.1 10^3/uL (0.0-0.8); Eosinophils % 1.2 %; Hematocrit 27.2 % (37.0-47.0); Lymphocytes # 1.2 10^3/uL (0.8-4.8); Lymphocytes % 19.2 %; Mean Corpuscular HGB Conc 29.4 g/dL (30.0-36.0); Mean Corpuscular Hemoglobin 31.3 pg (28.0-34.0); Mean Corpuscular Volume 106.3 fL (81-99); Mean Platelet Volume 9.6 fL (7.4-10.4); Monocytes # 0.4 10^3/uL (0.2-0.9); Monocytes % 5.4 %; Neutrophils # 4.68 10^3/uL (1.8-7.7); Neutrophils % 72.4 %; Nucleated Red Blood Cells % 0.3 %; Platelet Count 233 10^3/cmm (130-400); Red Blood Count 2.56 10^6/uL (4.1-5.3); Red Cell Distribution Width 18.9 % (12.1-15.1); White Blood Count 6.5 10^3/uL (4.0-10.0)
--- NOTE | 2020-09-09 10:20 | PC.NURSE ---
Dr. Amaro updated on patient condition. HR maintaining 120-130s, BP 117/63. No new orders received. Nurse to continue to monitor.
--- NOTE | 2020-09-09 11:30 | ECG_ITS ---
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 Measurements Intervals [place] Rate: 97 P: RI: QRS: 46 QRSD: 89 T: 43 QT: 341 QTc: 433 Interpretive Statements ATRIAL FIBRILLATION LOW QRS VOLTAGE IN EXTREMITY LEADS [QRS DEFLECTION < 0.5 mV IN LIMB LEADS] ABNORMAL RHYTHM ECG Compared to ECG 09/07/2020 11:32:45 No significant changes Electronically Signed On 09-10-2020 20:35:08 SAP BW CONSULTANT by Lory Egan M.D. [id number] f
--- NOTE | 2020-09-09 11:50 | PC.NURSE ---
Digoxin administration clarified with Dr. Amaro due to increased creatinine. verbal order to not administer dig, physician to make medication adjustments.
[2020-09-09 11:51] LABS: Glucose Point of Care 288 mg/dL (70-110)
--- NOTE | 2020-09-09 12:23 | PC.OT ---
OT tx attempted at this time. Pt having high heart rate. Nursing working with pt at this time and agreeable to withhold OT tx. Will attempt again tomorrow.
[2020-09-09] MEDS: amiodarone 200 mg Tablet 400 MG PO (12:27)
--- NOTE | 2020-09-09 12:30 | PM.PN ---
Subjective Subjective: Interval history: Patient was examined this morning, she sitting up into a chair, on 2 to 3 L, had a good night, slept some, her appetite is a bit better this morning, she continues to have fast heart rate this morning, heart rates as high as 130s Vitals/I&O/Wt Last Vital Signs Temp 98.6 F 09/09/20 07:20 Pulse 97 09/09/20 12:25 Resp 18 09/09/20 08:00 BP 114/78 09/09/20 07:20 Pulse Ox 96 09/09/20 08:00 09/08/20 09/09/20 09/09/20 22:59 06:59 14:59 Intake Total 420 / 1074 300 / 300 Output Total 450 / 450 400 / 850 Balance -30 / 624 -400 / 224 300 / 300 Physical Exam Const: COMMON NORMALS: no acute distress and patient oriented x3 HENMT: COMMON NORMALS: normocephalic HEAD & SCALP: normocephalic Neck/C-Spine: COMMON NORMALS: no JVD Resp: COMMON NORMALS: normal respiratory effort, No retractions, No use of accessory muscles and clear to auscultation bilaterally AUSCULTATION: clear to auscultation bilaterally Cardio: COMMON NORMALS: no JVD, S1 normal heart sound present and S2 normal heart sound present RATE: tachycardic RHYTHM: abnormal rhythm HEART SOUNDS: S1 normal heart sound present and S2 normal heart sound present GI: COMMON NORMALS: Normal to inspection, nondistended, normoactive bowel sounds present, Soft to palpation, non-tender, No hepatosplenomegaly present, no masses and no bruits PALPATION: Yes Soft to palpation and Yes No hepatosplenomegaly present Extremity: COMMON NORMALS: capillary refill normal, no clubbing, cyanosis or edema, no calf tenderness and no pedal edema Neuro: COMMON NORMALS: patient oriented x3 Psych: COMMON NORMALS: mental status grossly normal Urinary Catheter Management^: Corral: Cath Placed During This Visit: yes Reason for Continuing Indwelling Catheter: Other Urinary Catheter Date of Insertion: 09/07/20 Urinary Catheter Time of Insertion: 14:20 Data : 09/09/20 08:30 09/09/20 05:58 Micro: Microbiology 09/08/20 13:00 Occult Blood (FIT) - Final Stool A&P Assessment and plan (1) Acute exacerbation of CHF (congestive heart failure): Admission to cardiac stepdown floor Telemetry Urine output 2049 Fluid restrictions 1500 Hold Lasix 40 mg IV 12 hours as creatinine is 2.4 Bilateral lower extremity edema has improved No need to repeat echocardiogram which was done previously. Urinary catheter for accurate ins and outs. Ultrasound of the chest shows moderate left-sided pleural effusion, will consult IR tomorrow for thoracocentesis, hold aspirin, hold Eliquis Status: Acute (2) Atrial fibrillation with rapid ventricular response: Heart rates continue to creep up On metoprolol 100 twice daily Continue Cardizem Add amiodarone 400 mg daily, monitor QT interval Eliquis currently on hold given anemia, and plans of thoracocentesis Monitor for improvement of rate control. Hopefully can get resting heart rate less than 100. According to the patient it is frequently over this at home Status: Acute (3) Anemia: Some element of acute on chronic anemia. Hemoglobin down to 8.0-7.5 Check stool Hemoccult In part may be secondary to chronic kidney disease Could also be a slow GI bleed Hold Eliquis for now We will transfuse 1 unit PRBC Transfuse if less than 7 Continue iron, Protonix 40 twice daily, Carafate, monitor hemodynamics Status: Acute (4) CKD (chronic kidney disease): Renal function appears improved from prior levels Monitor closely as diuresis proceeds Avoid renal toxic medication No need to repeat renal ultrasound which was done previously. Status: Acute Additional A&P Information Covid 19 pneumonia, diagnosed in July. No need for quarantine now. Still has significant infiltrates on x-ray which is likely residual changes from Covid 19 with pulmonary fibrosis, with superimposed edema Diabetes, sliding scale insulin Multiple other medical problems as documented in past medical history Buttock Decub, continued wound care, keep pressure off Full code Eliquis on hold, SCDs for DVT prophylaxis Hold diurese, physical therapy, get out of bed, monitor hemoglobin, Eliquis on hold, add Carafate, Protonix, monitor hemodynamics, will give 1 unit PRBC, plan for thoracocentesis tomorrow Attestations Medical Necessity Statement*: Patient requires hospitalization for acute CHF, A. fib, anemia Coding Level of Care Code Acute Business Support Administrator for gage [employer]wbernabe Diagnoses Acute exacerbation of CHF (congestive heart failure) I50.9 Atrial fibrillation with rapid ventricular response I48.91 Anemia D64.9 CKD (chronic kidney disease) N18.9
--- NOTE | 2020-09-09 13:08 | NUR.SHIFT ---
Blood transfusion initiated. See TAR. Patient educated on S/S of transfusion reactions, verbalized understanding and did not have any further questions. Nurse to continue to monitor for 15 minutes.
[2020-09-09] MEDS: sodium chloride 0.9% (100 ml) 100 ML (16:00)
[2020-09-09 16:45] LABS: Glucose Point of Care 131 mg/dL (70-110)
[2020-09-09 19:41] LABS: Hematocrit 29.5 % (37.0-47.0)
[2020-09-09 20:19] LABS: Glucose Point of Care 261 mg/dL (70-110)
[2020-09-09] MEDS: doxazosin 1 mg Tablet 2 MG PO (20:37)
[2020-09-09] MEDS: mirtazapine 15 mg Tablet PO (20:38)
--- NOTE | 2020-09-09 20:54 | PC.NURSE ---
PT IS RESTING IN BED. PT DENIES PAIN. PT LOOKS MUCH BETTER TODAY THAN YESTERDAY. PT STATES THAT THEY FEEL MUCH BETTER WELL. WILL CONTINUE TO MONITOR.
[2020-09-10] VITALS (12 sets, daily range): BP systolic 101–131; BP diastolic 66–91; PULSE 88–136; RESP 16–26; TEMP 35.8–37.1; O2SAT 92–96
[2020-09-10 03:39] LABS: Basophils % 0.3 %; Eosinophils # 0.1 10^3/uL (0.0-0.8); Eosinophils % 0.9 %; Hematocrit 28.6 % (37.0-47.0); Hemoglobin 8.8 g/dL (11.5-15.3); Lymphocytes # 1.4 10^3/uL (0.8-4.8); Lymphocytes % 21.1 %; Mean Corpuscular HGB Conc 30.8 g/dL (30.0-36.0); Mean Corpuscular Hemoglobin 30.8 pg (28.0-34.0); Mean Platelet Volume 9.5 fL (7.4-10.4); Monocytes # 0.4 10^3/uL (0.2-0.9); Monocytes % 5.4 %; Neutrophils # 4.68 10^3/uL (1.8-7.7); Neutrophils % 70.5 %; Nucleated Red Blood Cells % 0.3 %; Platelet Count 232 10^3/cmm (130-400); Red Blood Count 2.86 10^6/uL (4.1-5.3); White Blood Count 6.6 10^3/uL (4.0-10.0)
[2020-09-10 04:18] LABS: Alanine Aminotransferase 15 U/L (0-33); Albumin Level 2.7 g/dL (3.5-5.2); Alkaline Phosphatase 64 IU/L (35-105); Anion Gap 14.5 (5-19); Aspartate Amino Transferase 7 U/L (0-32); Blood Urea Nitrogen 43 mg/dL (8-23); Calcium 8.2 mg/dL (8.5-10.5); Carbon Dioxide 27 mmol/L (22-29); Chloride 102 mmol/L (98-107); Globulin 2.5 g/dL (1.3-4.6); Glucose 131 mg/dL (65-115); Magnesium 1.9 mg/dL (1.7-2.3); NT Pro B Type Natriuretic Pept 4135 pg/mL (0-450); Osmolality Calculated 301 mOsm/kg (285-295); Phosphorus 3.2 mg/dL (2.5-4.5); Potassium 4.5 mmol/L (3.5-5.1); Sodium 139 mmol/L (136-145); Total Bilirubin 0.6 mg/dL (0.15-1.2); Total Protein 5.2 g/dL (6.6-8.7)
--- NOTE | 2020-09-10 06:00 | ECG_ITS ---
[facility] Test Date: 2020-09-10 Pat Name: Luiza Cooper Department: Room: 112 Gender: Female Rescue Instructor: : 1940 Requested By: Donta Amaro Order Number: [id number] Shirley MD: Lory Egan M.D. Measurements Intervals [place] Rate: 103 P: NM: QRS: 69 QRSD: 93 T: 67 QT: 338 QTc: 443 Interpretive Statements ATRIAL FIBRILLATION WITH RAPID VENTRICULAR RESPONSE ABNORMAL RHYTHM ECG Compared to ECG 09/09/2020 12:25:20 No significant changes Electronically Signed On 09-10-2020 20:57:54 ACCOUNTING SYSTEMS ANALYST by Lory Egan M.D. [id number] f
[2020-09-10 06:46] LABS: Glucose Point of Care 164 mg/dL (70-110)
--- NOTE | 2020-09-10 06:53 | PC.NURSE ---
PT HAD AN UNEVENTFUL NIGHT. PT DENIES PAIN. WILL CONTINUE TO MONITOR.
[2020-09-10] MEDS: sucralfate 1 gm Tablet PO ×2 (07:04→17:02)
[2020-09-10] MEDS: docusate sodium 100 mg Capsule PO (08:22)
[2020-09-10] MEDS: dilTIAZem ER (24HR) 300 mg Capsule PO (08:22)
[2020-09-10] MEDS: folic acid 1 mg Tablet PO (08:22)
[2020-09-10] MEDS: amiodarone 200 mg Tablet 400 MG PO (08:22)
[2020-09-10] MEDS: cyanocobalamin 1,000 mcg Tablet 1000 MCG PO (08:22)
[2020-09-10] MEDS: potassium chloride ER 20 mEq Tablet 40 MEQ PO (08:22)
[2020-09-10] MEDS: levothyroxine 150 mcg Tablet 75 MCG PO (08:23)
[2020-09-10] MEDS: metoprolol tartrate 50 mg Tablet 100 MG PO ×2 (08:36→20:55)
--- NOTE | 2020-09-10 11:05 | DCPLANNER ---
IMM completed with pt on 09/10/2020 @ 0901. Copy of rights given to pt.
[2020-09-10 11:51] LABS: Glucose Point of Care 231 mg/dL (70-110)
[2020-09-10 11:51] LABS: Glucose Point of Care > 600 mg/dL (70-110)
[2020-09-10] MEDS: pantoprazole DR 40 mg Tablet PO (12:50)
[2020-09-10 16:31] LABS: Glucose Point of Care 197 mg/dL (70-110)
--- NOTE | 2020-09-10 17:01 | P.PN_ITS ---
Subjective Subjective: Interval history: unable to pefrom thoracentesis today as not enough fluid noted Medications: Reviewed: Yes Vitals/I&O/Wt Last Vital Signs Temp 96.5 F L 09/10/20 15:17 Pulse 90 09/10/20 15:17 Resp 24 H 09/10/20 15:17 BP 114/75 09/10/20 15:17 Pulse Ox 93 09/10/20 15:17 09/10/20 09/10/20 09/10/20 06:59 14:59 22:59 Intake Total 120 / 120 Output Total 200 / 600 200 / 200 Balance -200 / 330 120 / 120 -200 / -80 Physical Exam Narrative: EXAM NARRATIVE: GEN: Awake, alert and oriented, no acute distress CVS: S1S2 N RS: CTA B/L Abd: Soft, nt/nd , bs+ METEOROLOGICAL EQUIPMENT REPAIRER: no focal neuro deficits EXT: LE pitting edema + B/L Urinary Catheter Management^: Corral: Cath Placed During This Visit: yes Reason for Continuing Indwelling Catheter: Accurate Measurement of Urinary Outp ut in Critically Ill Patients Urinary Catheter Date of Insertion: 09/07/20 Urinary Catheter Time of Insertion: 14: Data : 09/10/20 02:50 09/10/20 02:50 A&P Assessment and plan (1) Acute exacerbation of CHF (congestive heart failure): i/o, daily weight checs Fluid restrictions 1500, urine outpu at 400cc Lasix 20mg IV daily Bilateral lower extremity edema persisting No need to repeat echocardiogram which was done previously. Urinary catheter for accurate ins and outs. Ultrasound of the chest shows moderate left-sided pleural effusion, will consult IR tomorrow for thoracocentesis resume ASA Status: Acute (2) Atrial fibrillation with rapid ventricular response: Heart rates continue to creep up On metoprolol 100 twice daily Continue Cardizem Add amiodarone 400 mg daily, monitor QT interval Eliquis currently on hold given anemia, and plans of thoracocentesis Monitor for improvement of rate control. Hopefully can get resting heart rate less than 100. According to the patient it is frequently over this at home Status: Acute (3) Anemia: Some element of acute on chronic anemia. Hemoglobin down to 8.0-7.5 Check stool Hemoccult In part may be secondary to chronic kidney disease Could also be a slow GI bleed Hold Eliquis for now We will transfuse 1 unit PRBC Transfuse if less than 7 Continue iron, Protonix 40 twice daily, Carafate, monitor hemodynamics Status: Acute (4) CKD (chronic kidney disease): Renal function appears improved from prior levels Monitor closely as diuresis proceeds Avoid renal toxic medication No need to repeat renal ultrasound which was done previously. Status: Acute Additional A&P Information Covid 19 pneumonia, diagnosed in July. No need for quarantine now. Still has significant infiltrates on x-ray which is likely residual changes from Covid 19 with pulmonary fibrosis, with superimposed edema Diabetes, sliding scale insulin Multiple other medical problems as documented in past medical history Buttock Decub, continued wound care, keep pressure off Full code Eliquis on hold, SCDs for DVT prophylaxis Hold diurese, physical therapy, get out of bed, monitor hemoglobin, Eliquis on hold, add Carafate, Protonix, monitor hemodynamics, will give 1 unit PRBC, plan for thoracocentesis tomorrow Attestations Medical Necessity Statement*: resume diuresis, monitor kidney function and urine utput , resume eliquis if Hb remains stable ove rthe next 24 hrs Coding Level of Care Code Acute Senior Accountant for Chg Fwd Diagnoses Acute exacerbation of CHF (congestive heart failure) I50.9 Atrial fibrillation with rapid ventricular response I48.91 Anemia D64.9 CKD (chronic kidney disease) N18.9
[2020-09-10] MEDS: FUROsemide 10 mg/mL SDV 2mL 20 MG IVP (18:16)
[2020-09-10 20:08] LABS: Glucose Point of Care 294 mg/dL (70-110)
[2020-09-10] MEDS: doxazosin 1 mg Tablet 2 MG PO (20:55)
[2020-09-10] MEDS: mirtazapine 15 mg Tablet PO (20:55)
[2020-09-11] VITALS (10 sets, daily range): BP systolic 99–140; BP diastolic 64–93; PULSE 96–126; RESP 14–22; TEMP 36.6–37; O2SAT 92–96
[2020-09-11] MEDS: pantoprazole DR 40 mg Tablet PO ×2 (00:27→13:14)
[2020-09-11 04:48] LABS: Basophils % 0.3 %; Eosinophils # 0.1 10^3/uL (0.0-0.8); Hematocrit 29.1 % (37.0-47.0); Hemoglobin 8.7 g/dL (11.5-15.3); Lymphocytes # 1.2 10^3/uL (0.8-4.8); Lymphocytes % 19.7 %; Mean Corpuscular HGB Conc 29.9 g/dL (30.0-36.0); Mean Corpuscular Volume 100.3 fL (81-99); Mean Platelet Volume 9.6 fL (7.4-10.4); Monocytes # 0.4 10^3/uL (0.2-0.9); Monocytes % 6.4 %; Neutrophils % 70.6 %; Nucleated Red Blood Cells % 0 %; Platelet Count 239 10^3/cmm (130-400); Red Cell Distribution Width 20.2 % (12.1-15.1); White Blood Count 6.1 10^3/uL (4.0-10.0)
[2020-09-11 05:19] LABS: Alanine Aminotransferase 14 U/L (0-33); Albumin Level 2.8 g/dL (3.5-5.2); Alkaline Phosphatase 61 IU/L (35-105); Anion Gap 12.8 (5-19); Aspartate Amino Transferase 10 U/L (0-32); Blood Urea Nitrogen 42 mg/dL (8-23); Calcium 8.5 mg/dL (8.5-10.5); Carbon Dioxide 28 mmol/L (22-29); Chloride 101 mmol/L (98-107); Globulin 2.4 g/dL (1.3-4.6); Glucose 108 mg/dL (65-115); Osmolality Calculated 295 mOsm/kg (285-295); Potassium 4.8 mmol/L (3.5-5.1); Sodium 137 mmol/L (136-145); Total Bilirubin 0.5 mg/dL (0.15-1.2); Total Protein 5.2 g/dL (6.6-8.7)
[2020-09-11 05:24] LABS: Phosphorus 3.3 mg/dL (2.5-4.5)
--- NOTE | 2020-09-11 05:58 | PC.NURSE ---
PT HAD AN UNEVENTFUL NIGHT. PT RESTING IN BED. PT DENIES PAIN AT THIS TIME. WILL CONTINUE TO MONITOR.
--- NOTE | 2020-09-11 06:00 | ECG_ITS ---
[facility] Test Date: 2020-09-11 Pat Name: Luiza Cooper Department: Room: 112 Gender: Female Pattern Drafter: : 1940 Requested By: Donta Amaro Order Number: [id number] Shirley MD: Tony Villatoro M.D. Measurements Intervals [place] Rate: 114 P: NM: QRS: 75 QRSD: 91 T: 70 QT: 326 QTc: 449 Interpretive Statements ATRIAL FIBRILLATION WITH RAPID VENTRICULAR RESPONSE ABNORMAL RHYTHM ECG Compared to ECG 09/10/2020 06:35:12 No significant changes Electronically Signed On 09-11-2020 9:45:54 TEST PULLER by Tony Villatoro M.D. [id number]
[2020-09-11] MEDS: sucralfate 1 gm Tablet PO ×2 (06:16→17:52)
[2020-09-11 06:25] LABS: Glucose Point of Care 124 mg/dL (70-110)
--- NOTE | 2020-09-11 06:33 | PC.NURSE ---
ACCUCHECKS WERE DONE. I CAN'T COMPLETE INTERVENTION.
[2020-09-11] MEDS: levothyroxine 150 mcg Tablet 75 MCG PO (09:31)
[2020-09-11] MEDS: metoprolol tartrate 50 mg Tablet 100 MG PO (09:31)
[2020-09-11] MEDS: docusate sodium 100 mg Capsule PO (09:31)
[2020-09-11] MEDS: amiodarone 200 mg Tablet 400 MG PO (09:32)
[2020-09-11] MEDS: folic acid 1 mg Tablet PO (09:32)
[2020-09-11] MEDS: potassium chloride ER 20 mEq Tablet 40 MEQ PO (09:32)
[2020-09-11] MEDS: dilTIAZem ER (24HR) 300 mg Capsule PO (09:32)
[2020-09-11] MEDS: aspirin 81 mg EC Tablet PO (09:32)
[2020-09-11] MEDS: cyanocobalamin 1,000 mcg Tablet 1000 MCG PO (09:32)
[2020-09-11 11:22] LABS: Glucose Point of Care 225 mg/dL (70-110)
[2020-09-11 16:26] LABS: Glucose Point of Care 345 mg/dL (70-110)
--- NOTE | 2020-09-11 16:55 | PM.DCS ---
Discharge Providers Date of Admission: 09/07/20 10:36 Date of Discharge: September 11, 2020 Attending Provider at Admission: Gabriele Rosales MD Attending Provider at Discharge: Maria L Toro MD Primary Care Provider: Mann Garduno MD Diagnoses at Discharge Discharge Diagnosis (1) Acute exacerbation of CHF (congestive heart failure): Status: Acute (2) Atrial fibrillation with rapid ventricular response: Status: Acute (3) Anemia: Status: Acute (4) CKD (chronic kidney disease): Status: Acute Reason for Visit Reason for Visit: abnormal labs/ swelling Hospital Course Hospital Course 80F with PMH Atrial fibrillation, CHF (congestive heart failure), CKD (chronic kidney disease), COVID 19 pneumonia admitted 08/02/2020-08/10 c/b ARF thought related to remdisivir. discharged on 08/10 with 14 days of doxycycline,Solu-Medrol taper, Advair, albuterol, vitamin C, zinc, aggressive pulmonary toilet, incentive spirometer, flutter valve use, Tessalon Perles, Lasix as needed for shortness of breath or edema. Patient developed A. fib with RVR during her hospital admission, likely related to acute respiratory failure, initially managed with metoprolol, amiodarone was added, but suffered QTC prolongation, which was stopped, switched over to Cardizem, cardiology was consulted. Patient then discharged on metoprolol succinate 100 mg in the morning, 50 mg in the evening, Cardizem 300 mg day, Eliquis 2.5 mg twice daily (given age of 80, creatinine of 2?). Dischrged on home 02 2-3lpm. Now admitted 09/07 with LE edema, dyspnea and orthopnea. Treated with lasix 40 q12h iv, related to CHF. then held 09/09 due to rising cr, now resumed at 40mg po daily at discharge with advise to repeat CMP within the next week and follow up with PCP for cr check. LE duplex negative for DVT. Also noted to have left pleural effusion, not enough for safe thoracentesi. CT chest reveals debleoping pulmonary fibrosis likely from covid sequelae. Hospital course also complicated by A fib with RVR , not well controlled with combination of cardizem and metoprolol, amiodarone 400mg daily added on 09/09 with careful monitoring of qtc intervals, which remained under 500. f/up arranged within one week with cardiology. Recommeded to drop dose to 200mg daily three days after discharge. Sshe was also noted to have worsening anemia and FOBT+ for which eliquis has been held as risks outweigh benefit at this time. She receoved PRBC transfusion. Patient is eager to return homw today. She is back to her recent baseline, though remains overall deconditioned. metroprolol incfreased to 100mg BID, cardizem increased from 300 to 360 mg daily. Physical Exam Narrative: EXAM NARRATIVE: GEN: Awake, alert and oriented, no acute distress CVS: S1S2 N RS: CTA B/L Abd: Soft, nt/nd , bs+ DIETETIC TECHNICIAN REGISTERED: no focal neuro deficits Urinary Catheter Management^: Corral: Cath Placed During This Visit: yes Reason for Continuing Indwelling Catheter: Acute Urinary Retention or Obstruction Urinary Catheter Date of Insertion: 09/07/20 Urinary Catheter Time of Insertion: 14:20 Discharge Data Data Completed and Pending: Completed Studies During Hospitalization Category Date Time Status XR chest 1V toñito ble [id number] Stat Exams 09/07/20 09:02 [place] [id number] Routin e Ultrasound 09/07/20 15:16 Completed [place] chest 90451 Ro utine Ultrasound 09/08/20 08:16 Completed Pending at discharge Category Date Time Status Complete Blood Co unt w/Auto AM LABS Lab 09/12/20 04:00 Ordered Magnesium AM LABS Lab 09/12/20 04:00 Ordered Phosphorus AM LAB S Lab 09/12/20 04:00 Ordered Labs from last 24 hours 09/11/20 09/11/20 09/11/20 16:21 11:02 06:21 WBC RBC Hgb Hct MCV MCH MCHC RDW Plt Count MPV Neut % (Auto) Lymph % (Auto) [place] % (Auto) Eos % (Auto) Baso % (Auto) Neut # (Auto) Lymph # (Auto) [place] # (Auto) Eos # (Auto) Baso # (Auto) Nucleated RBC % (a uto) Nucleated RBCs # Sodium Potassium Chloride Carbon Dioxide Anion Gap BUN Creatinine GFR Calculation Glucose POC Glucose 345 H 225 H 124 H Calculated Osmolal ity Calcium Phosphorus Magnesium Total Bilirubin AST ALT Alkaline Phosphata se Total Protein Albumin Globulin 09/11/20 09/11/20 09/11/20 04:32 04:32 04:32 WBC 6.1 RBC 2.90 L Hgb 8.7 L Hct 29.1 L MCV 100.3 H MCH 30.0 MCHC 29.9 L RDW 20.2 H Plt Count 239 MPV 9.6 Neut % (Auto) 70.6 Lymph % (Auto) 19.7 [place] % (Auto) 6.4 Eos % (Auto) 1.0 Baso % (Auto) 0.3 Neut # (Auto) 4.30 Lymph # (Auto) 1.2 [place] # (Auto) 0.4 Eos # (Auto) 0.1 Baso # (Auto) 0.0 Nucleated RBC % (a uto) 0 Nucleated RBCs # 0.0 Sodium 137 Potassium 4.8 Chloride 101 Carbon Dioxide 28 Anion Gap 12.8 BUN 42 H Creatinine 2.6 H GFR Calculation Not Reportable Glucose 108 POC Glucose Calculated Osmolal ity 295 Calcium 8.5 Phosphorus 3.3 Magnesium 2.0 Total Bilirubin 0.5 AST 10 ALT 14 Alkaline Phosphata se 61 Total Protein 5.2 L Albumin 2.8 L Globulin 2.4 09/10/20 20:03 WBC RBC Hgb Hct MCV MCH MCHC RDW Plt Count MPV Neut % (Auto) Lymph % (Auto) [place] % (Auto) Eos % (Auto) Baso % (Auto) Neut # (Auto) Lymph # (Auto) [place] # (Auto) Eos # (Auto) Baso # (Auto) Nucleated RBC % (a uto) Nucleated RBCs # Sodium Potassium Chloride Carbon Dioxide Anion Gap BUN Creatinine GFR Calculation Glucose POC Glucose 294 H Calculated Osmolal ity Calcium Phosphorus Magnesium Total Bilirubin AST ALT Alkaline Phosphata se Total Protein Albumin Globulin Vitals: Last Vital Signs Temp 97.8 F 09/11/20 14:56 Pulse 98 09/11/20 14:56 Resp 22 H 09/11/20 14:56 BP 124/72 09/11/20 14:56 Pulse Ox 93 09/11/20 14:56 Discharge Plan Discharge Patient Disposition: Home Health Service Condition: Stable Prescriptions: New Pacerone 200 mg Tablet See Rx Instructions .ROUTE .COMPLEX Qty: 30 RF: 0 diltiazem HCl 300 mg Capsule,Extended Release 24hr 360 mg PO DAILY 30 Days Qty: 30 RF: 0 pantoprazole 40 mg Tablet,Delayed Release (Dr/Ec) 40 mg PO Q12H Qty: 0 RF: 0 mirtazapine 15 mg Tablet 15 mg PO BEDTIME Qty: 0 RF: 0 Vitamin B-12 1,000 mcg Tablet 1,000 mcg PO DAILY Qty: 0 RF: 0 sucralfate 1 gram Tablet 1 g PO BIDAC 15 Days Qty: 30 RF: 0 metoprolol tartrate 50 mg Tablet 100 mg PO BID@0900,2100 30 Days Qty: 60 RF: 0 folic acid 1 mg Tablet 1 mg PO DAILY Qty: 0 RF: 0 Continued coenzyme Q10 [CoQ-10] 100 mg capsule 100 mg PO DAILY@18 RF: 0 docusate sodium [Stool Softener] 100 mg capsule 100 mg PO DAILY@08 RF: 0 ferrous sulfate 325 mg (65 mg iron) tablet 325 mg PO TID@08,12,20 RF: 0 insulin lispro [Humalog U-100 Insulin] 100 unit/mL solution See Rx Instructions .ROUTE .COMPLEX RF: 0 levothyroxine 75 mcg tablet 75 mcg PO DAILY@08 RF: 0 potassium chloride [Klor-Con M10] 10 mEq tablet,ER particles/crystals 20 meq PO DAILY@08 RF: 0 doxazosin 2 mg tablet 2 mg PO BEDTIME@20 RF: 0 atorvastatin 10 mg tablet 5 mg PO DAILY@18 RF: 0 pantoprazole 40 mg tablet,delayed release (DR/EC) 40 mg PO DAILY@08 Qty: 60 RF: 2 hydrocodone-acetaminophen 5-325 mg tablet 1 tab PO Q6H PRN (Reason: pain) Qty: 15 RF: 0 aspirin 81 mg Tablet,Chewable 81 mg PO DAILY@18 RF: 0 Advair Diskus 250-50 mcg/dose blister with device 1 ea inhalation BID RF: 0 Lantus U-100 Insulin 100 unit/mL solution 15 unit SUBCUT BEDTIME@20 RF: 0 Lasix 20 mg tablet 40 mg PO DAILY@08 RF: 0 albuterol sulfate 90 mcg/actuation HFA aerosol inhaler 1 puff INHALATION Q6H PRN (Reason: Shortness Of Breath) RF: 0 acetaminophen [Tylenol Extra Strength] 500 mg Tablet 500 - 1,000 mg PO PRN PRN (Reason: PAIN) RF: 0 Discontinued clonidine HCl 0.1 mg tablet 0.1 mg PO PRN PRN (Reason: hypertensive emergency) RF: 0 Eliquis 5 mg tablet 2.5 mg PO Q12H Qty: 60 RF: 2 [place] 3 Capsule 1,000 mg PO DAILY@08 RF: 0 ascorbic acid (vitamin C) [Vitamin C] 1,000 mg tablet 1 g PO DAILY@08 RF: 0 metoprolol succinate 50 mg tablet extended release 24 hr 50 mg PO DAILY@21 RF: 0 metoprolol succinate 100 mg tablet extended release 24 hr 100 mg PO DAILY@08 RF: 0 diltiazem HCl 300 mg capsule,extended release 24hr 300 mg PO DAILY@08 RF: 0 zinc 50 mg tablet 100 mg PO DAILY@08 RF: 0 clindamycin HCl 300 mg Capsule 300 mg PO TID@08,12,20 RF: 0 scahakpioquh-euwgxwzg-gyezzq Tablet 1 tab PO DAILY@08 RF: 0 turmeric root extract 500 mg Capsule 500 mg PO DAILY@08 RF: 0 Discharge Orders: Discharge Order (Routine); Ordered 09/11/20 Ordered By: Maria L Toro Other Ambulatory Orders: Comprehensive Metabolic Panel (Routine) Timeframe: 1 Week Facility: [facility] - Location: Lab - Main Lab Ordered By: Maria L Toro Referrals: Walter Lisa MD [Referring] - 7-10 days (Please keep your appointment with Dr. Lisa. ) Padmini Guillermo MD [Physician] - 2 weeks ([facility] will contact you to schedule an follow-up appointment in 2 weeks. If you have'nt heard from them by tomorrow afternoon. Please call ) Mann Garduno MD [Primary Care Provider] - 1 week ([facility] will contact you to schedule an 1 week follow-up. If you haven't heard from them by Tomorrow afternoon. Please call ) Discharge Diet: Usual diet and Cardiac Discharge Activity: As per PT/OT instructions Patient Instructions: Metoprolol (By mouth), Diltiazem (By mouth), Sucralfate (By mouth), Amiodarone (By mouth), Mirtazapine (By mouth), Pantoprazole (By mouth), Vitamin B Complex (By mouth), Atrial Fibrillation (DC), Chronic Kidney Disease (DC), Anemia (DC), CHF Stoplight Discharge Attestations Time Spent in Discharge Care*: greater than 30 min Specific Discharge Activities: educating patient, educating and/or supporting family/caregiver, discussing with counter caser/social workers/dc planners, documenting/other paperwork and evaluating patient/reviewing data Quality Metrics Clinical Quality Measures During this hospital stay, did patient experience: None Coding Level of Care Code Acute Head Of Precision Targeting for Chg Fwd Diagnoses Acute exacerbation of CHF (congestive heart failure) I50.9 Atrial fibrillation with rapid ventricular response I48.91 Anemia D64.9 CKD (chronic kidney disease) N18.9
--- NOTE | 2020-09-11 18:02 | PC.NURSE ---
Discharge instructions provided to patient and daughter; verbalization of all instructions obtained. iv discontinued cath intact min bleeding noted patient tolerated well patient assisted to private vehicle via wheel chair by staff patient alert oriented and in stable condition. patient accompanied with all belongings in hands as well as discharge instructions.
== END 2020-09-11 18:11 | disposition home health service (06) | DRG 291 ==
LOC: ER 10:39 → CSU 11:15
PROVIDERS: Family Medicine; Admitting Provider Internal Medicine; Emergency Provider Student in an Organized Health Care Education/Training Program; PCP Family Medicine; Visit Provider Student in an Organized Health Care Education/Training Program
DX: I13.0 Hypertensive heart and chronic kidney disease with heart failure and stage 1 through stage 4 chronic kidney disease, or unspecified chronic kidney disease (principal); I50.33 Acute on chronic diastolic (congestive) heart failure; N18.9 Chronic kidney disease, unspecified; E11.22 Type 2 diabetes mellitus with diabetic chronic kidney disease; J84.10 Pulmonary fibrosis, unspecified; B94.8 Sequelae of other specified infectious and parasitic diseases; D50.0 Iron deficiency anemia secondary to blood loss (chronic); I48.91 Unspecified atrial fibrillation; Z87.440 Personal history of urinary (tract) infections; K21.9 Gastro-esophageal reflux disease without esophagitis; E03.9 Hypothyroidism, unspecified; Z87.891 Personal history of nicotine dependence; L89.309 Pressure ulcer of unspecified buttock, unspecified stage; Z79.4 Long term (current) use of insulin; Z79.891 Long term (current) use of opiate analgesic; Z79.82 Long term (current) use of aspirin; Z79.51 Long term (current) use of inhaled steroids
CPT/HCPCS: 12345; 36415; 36416; 36430; 51702; 71045; 76604; 80053; 80500; 81001; 82274; 82962; 83735; 83880; 84100; 84145; 84484; 85014; 85018; 85025; 85610; 86850; 86900; 86920; 93005; 93970; 94640; 96372; 96375; 97110; 97161; 97166; 97530; 97535; 99283; J1815; J1940; P9016

== ENCOUNTER 2020-09-25 05:20 | Inpatient (IN) | payer MEDICARE, BC, SELFPAY ==
[2020-09-25] VITALS (19 sets, daily range): BP systolic 87–158; BP diastolic 43–105; PULSE 84–116; RESP 18–24; TEMP 36.6–36.8; O2SAT 91–98; BMI 35.4
--- NOTE | 2020-09-25 05:23 | XR_ITS ---
WS: [id number] PORTABLE CHEST HISTORY: sob COMPARISON: 09/07/2020, 08/10/2020 Lung volumes are slightly decreased. Increasing interstitial thickening and coarse and reticulations bilaterally.. There may be very slight improvement in aeration in the RIGHT upper lobe and over the L EFT hilum. Progression of interstitial thickening and edema since 08/10/2020. Small LEFT pleural effu precious is likely. Cardiac size: Normal. Mediastinum/Aorta: Mild atherosclerosis aorta. No osseous abnormality seen. XR/XR chest 1V portable [id number] IMPRESSION: 1. Diffuse moderate, bilateral interstitial thickening likely due to edema and pneumonia may also be superimposed. Very slight improvement since 09/07/2020 b ut progression since 08/10/2020. 2. Small LEFT pleural effusion.
--- NOTE | 2020-09-25 05:23 | ECG_ITS ---
[facility] Test Date: 2020-09-25 Pat Name: Luiza Cooper Department: Room: Gender: Female Rotary Driller Prospecting: : 1940 Requested By: David Gaitan Order Number: [id number] Reading MD: MATHEW SPENCER Measurements Intervals [place] Rate: 94 P: [place]: QRS: 91 QRSD: 93 T: 78 QT: 358 QTc: 448 Interpretive Statements ATRIAL FIBRILLATION BORDERLINE RIGHT AXIS DEVIATION [QRS AXIS > 90] LOW QRS VOLTAGE [QRS DEFLECTION < 0.5/1.0 mV IN LIMB/CHEST LEADS] SEPTAL MYOCARDIAL INFARCTION , OF INDETERMINATE AGE [40+ ms Q WAVE IN V1/V2] Compared to ECG 09/11/2020 05:56:43 Low QRS voltage now present Myocardial infarct finding now present Electronically Signed On 09-25-2020 19:58:18 CHILD DAY CARE PROVIDER by MATHEW SPENCER [email or web address] medical [id number]
[2020-09-25 06:00] LABS: Basophils # 0.1 10^3/uL (0.0-0.1); Basophils % 0.7 %; Eosinophils # 0.1 10^3/uL (0.0-0.8); Eosinophils % 1.3 %; Hematocrit 30.8 % (37.0-47.0); Hemoglobin 9.3 g/dL (11.5-15.3); Lymphocytes # 2.5 10^3/uL (0.8-4.8); Lymphocytes % 22.6 %; Mean Corpuscular HGB Conc 30.2 g/dL (30.0-36.0); Mean Corpuscular Hemoglobin 30.1 pg (28.0-34.0); Mean Corpuscular Volume 99.7 fL (81-99); Mean Platelet Volume 9.9 fL (7.4-10.4); Monocytes # 0.7 10^3/uL (0.2-0.9); Monocytes % 6.2 %; Neutrophils # 7.31 10^3/uL (1.8-7.7); Neutrophils % 67.1 %; Nucleated Red Blood Cells % 0 %; Platelet Count 288 10^3/cmm (130-400); Red Blood Count 3.09 10^6/uL (4.1-5.3); Red Cell Distribution Width 17.4 % (12.1-15.1); White Blood Count 10.9 10^3/uL (4.0-10.0)
--- NOTE | 2020-09-25 06:02 | W.ED.SOB ---
HPI - SOB/Dyspnea General: Chief Complaint: Shortness of Breath/Dyspnea Stated Complaint: SOB/tested + for covid aug 02 Time Seen by Provider: 09/25/20 05:50 History of Present Illness: HPI Narrative: 80-year-old female presents to the emergency room with complaints of shortness of breath. In July of this year she was diagnosed with Covid she relates that since then she has had multiple problems. She is developed atrial fibrillation and still is in A. fib at this time. She has had increasing orthopnea congestion shortness of breath. Patient is diabetic as well as hypothyroid. She was previously on anticoagulants but those were stopped due to GI blood losses. MD elicited complaint: shortness of breath and cough Pertinent past history: congestive heart failure, diabetes and other (Atrial fibrillation) Onset (ago): day(s) Context: anxiety Timing: constant and progressively worsening Severity: similar to previous episodes Exacerbating factors: lying flat, exertion, coughing and talking Relieving factors: oxygen, rest and upright position Known history of: congestive heart failure, diabetes and other (Atrial fibrillation) Associated symptoms: Reports cough, myalgias, nausea, orthopnea and palpitations; Deny abdominal pain, chest congestion, chest pain, diaphoresis, dizziness, extremity pain, fever(s), hemoptysis, lightheadedness, paresthesias, polydipsia, polyuria, rash, sense of impending doom, syncope or vomiting Treatment prior to arrival: oxygen Review of Systems Const: Denies: fever(s) or diaphoresis ENMT: Denies: throat pain, ear or mastoid pain, nasal discharge or nasal congestion Card: Reports: palpitations and orthopnea; Denies: chest pain, lightheadedness or syncope Resp: Denies: hemoptysis or chest congestion GI: Reports: nausea; Denies: abdominal pain or vomiting : Denies: flank pain, difficulty voiding, dysuria, urinary frequency or urinary urgency Musc: Denies: extremity pain Skin/Breast: Denies: rash or pruritus Endo: Denies: polyuria or polydipsia PFS ED PFSH: Medical History Atrial fibrillation CHF (congestive heart failure) CKD (chronic kidney disease) COVID-19 Diagnosed 08/02/2020 Diabetes GERD (gastroesophageal reflux disease) HTN (hypertension) Hypothyroidism PVC (premature ventricular contraction) Surgical History S/P cataract extraction S/P cervical spinal fusion S/P tonsillectomy Status post tubal ligation Family History Mother Hypertension Grandmother Hypertension MATERNAL Other Cancer Diabetes Social History Smoking and tobacco status: former smoker Alcohol intake: never Household members: spouse Marital status: Physical Exam Const: COMMON NORMALS: no acute distress GENERAL APPEARANCE: cooperative and comfortable ORIENTATION/CONSCIOUSNESS: Yes awake, Yes oriented to person, Yes oriented to place and Yes oriented to time HENMT: COMMON NORMALS: normocephalic, atraumatic and hearing grossly normal bilaterally HEAD & SCALP: normocephalic and atraumatic Resp: AUSCULTATION: crackles and wheezes Cardio: RATE: tachycardic RHYTHM: abnormal rhythm irregularly irregular GI: COMMON NORMALS: Soft to palpation and No hepatosplenomegaly present AUSCULTATION: Yes normoactive bowel sounds PALPATION: Yes Soft to palpation, No Tenderness to palpation present (GI), No Guarding due to palpation present (GI) and Yes No hepatosplenomegaly present Extremity: COMMON NORMALS: normal to inspection, capillary refill normal, no clubbing, cyanosis or edema, no calf tenderness and no pedal edema Neuro: SENSORIUM/ORIENTATION: Yes oriented to person, Yes oriented to place and Yes oriented to time Skin: COMMON NORMALS: no rashes or lesions noted GENERAL SKIN EXAM: no rashes or lesions noted Course Vital Signs: Vital signs: Vital Signs Temperature 98.2 F 09/25/20 05:26 Pulse Rate 94 09/25/20 12:00 Respiratory Rate 20 H 09/25/20 12:00 Blood Pressure 128/75 09/25/20 12:00 Pulse Oximetry 95 09/25/20 12:00 MDM - SOB/Dyspnea MDM Narrative: Medical decision making narrative: Reviewed findings with Dr. Dumont will admit for exacerbation of congestive heart failure she will also need a VQ scan. She has chronic kidney disease as well she is given Lasix here Dr. Dumont will be attending. Lab Data: Labs: Lab Results 09/25/20 09/25/20 09/25/20 Range/Units 05:30 05:30 05:30 WBC 10.9 H (4.0-10.0) 10^3/ uL RBC 3.09 L (4.1-5.3) 10^6/u L Hgb 9.3 L (11.5-15.3) g/dL Hct 30.8 L (37.0-47.0) % MCV 99.7 H (81-99) fL MCH 30.1 (28.0-34.0) pg MCHC 30.2 (30.0-36.0) g/dL RDW 17.4 H (12.1-15.1) % Plt Count 288 (130-400) 10^3/c mm MPV 9.9 (7.4-10.4) fL Neut % (Auto) 67.1 % Lymph % (Auto) 22.6 % [place] % (Auto) 6.2 % Eos % (Auto) 1.3 % Baso % (Auto) 0.7 % Neut # (Auto) 7.31 (1.8-7.7) 10^3/u L Lymph # (Auto) 2.5 (0.8-4.8) 10^3/u L [place] # (Auto) 0.7 (0.2-0.9) 10^3/u L Eos # (Auto) 0.1 (0.0-0.8) 10^3/u L Baso # (Auto) 0.1 (0.0-0.1) 10^3/u L Nucleated RBC % (a uto) 0 % Nucleated RBCs # 0.0 /100WBC D-Dimer 2.30 H (0-0.59) ug/mIFE U Specimen Type Sample Site ABG pH (7.35-7.45) ABG pCO2 (35-45) mmHg ABG pO2 (80.0-100.0) mmH g ABG HCO3 (22-26) mmol/L ABG Base Excess (-2.0-2.0) mmol/ L Jorge Test Hematocrit (37-47) % O2 Delivery Device O2 Liters/Min % FiO2 % Furnace Brazer ID Sodium 138 (136-145) mmol/L Potassium 3.8 (3.5-5.1) mmol/L Chloride 98 (98-107) mmol/L Carbon Dioxide 31 H (22-29) mmol/L Anion Gap 12.8 (5-19) BUN 29 H (8-23) mg/dL Creatinine 2.2 H (0.5-0.9) mg/dL GFR Calculation Not Reportable Glucose 157 H (65-115) mg/dL POC Glucose (70-110) mg/dL Calculated Osmolal ity 295 (285-295) mOsm/k g Lactic Acid (0.5-2.2) mmol/L Calcium 9.2 (8.5-10.5) mg/dL Total Bilirubin 0.5 (0.15-1.2) mg/dL AST 8 (0-32) U/L ALT 10 (0-33) U/L Alkaline Phosphata se 89 (35-105) IU/L Troponin T Baselin e (0-10) ng/L Troponin T 120 Min kake (0-10) ng/L Delta Troponin T (0-10) ABS# C-Reactive Protein 23.7 H (0.0-4.9) mg/L NT-Pro-B Natriuret Pep (0-450) pg/mL Total Protein 6.4 L (6.6-8.7) g/dL Albumin 3.4 L (3.5-5.2) g/dL Globulin 3.0 (1.3-4.6) g/dL Procalcitonin (0-0.5) ng/mL 09/25/20 09/25/20 09/25/20 Range/Units 05:30 05:30 05:30 WBC (4.0-10.0) 10^3/ uL RBC (4.1-5.3) 10^6/u L Hgb (11.5-15.3) g/dL Hct (37.0-47.0) % MCV (81-99) fL MCH (28.0-34.0) pg MCHC (30.0-36.0) g/dL RDW (12.1-15.1) % Plt Count (130-400) 10^3/c mm MPV (7.4-10.4) fL Neut % (Auto) % Lymph % (Auto) % [place] % (Auto) % Eos % (Auto) % Baso % (Auto) % Neut # (Auto) (1.8-7.7) 10^3/u L Lymph # (Auto) (0.8-4.8) 10^3/u L [place] # (Auto) (0.2-0.9) 10^3/u L Eos # (Auto) (0.0-0.8) 10^3/u L Baso # (Auto) (0.0-0.1) 10^3/u L Nucleated RBC % (a uto) % Nucleated RBCs # /100WBC D-Dimer (0-0.59) ug/mIFE U Specimen Type Sample Site ABG pH (7.35-7.45) ABG pCO2 (35-45) mmHg ABG pO2 (80.0-100.0) mmH g ABG HCO3 (22-26) mmol/L ABG Base Excess (-2.0-2.0) mmol/ L Jorge Test Hematocrit (37-47) % O2 Delivery Device O2 Liters/Min % FiO2 % Furnace Brazer ID Sodium (136-145) mmol/L Potassium (3.5-5.1) mmol/L Chloride (98-107) mmol/L Carbon Dioxide (22-29) mmol/L Anion Gap (5-19) BUN (8-23) mg/dL Creatinine (0.5-0.9) mg/dL GFR Calculation Glucose (65-115) mg/dL POC Glucose (70-110) mg/dL Calculated Osmolal ity (285-295) mOsm/k g Lactic Acid 1.4 (0.5-2.2) mmol/L Calcium (8.5-10.5) mg/dL Total Bilirubin (0.15-1.2) mg/dL AST (0-32) U/L ALT (0-33) U/L Alkaline Phosphata se (35-105) IU/L Troponin T Baselin e 195 H* (0-10) ng/L Troponin T 120 Min kake (0-10) ng/L Delta Troponin T (0-10) ABS# C-Reactive Protein (0.0-4.9) mg/L NT-Pro-B Natriuret Pep 4831 H (0-450) pg/mL Total Protein (6.6-8.7) g/dL Albumin (3.5-5.2) g/dL Globulin (1.3-4.6) g/dL Procalcitonin (0-0.5) ng/mL 09/25/20 09/25/20 09/25/20 Range/Units 05:30 05:55 07:44 WBC (4.0-10.0) 10^3/ uL RBC (4.1-5.3) 10^6/u L Hgb (11.5-15.3) g/dL Hct (37.0-47.0) % MCV (81-99) fL MCH (28.0-34.0) pg MCHC (30.0-36.0) g/dL RDW (12.1-15.1) % Plt Count (130-400) 10^3/c mm MPV (7.4-10.4) fL Neut % (Auto) % Lymph % (Auto) % [place] % (Auto) % Eos % (Auto) % Baso % (Auto) % Neut # (Auto) (1.8-7.7) 10^3/u L Lymph # (Auto) (0.8-4.8) 10^3/u L [place] # (Auto) (0.2-0.9) 10^3/u L Eos # (Auto) (0.0-0.8) 10^3/u L Baso # (Auto) (0.0-0.1) 10^3/u L Nucleated RBC % (a uto) % Nucleated RBCs # /100WBC D-Dimer (0-0.59) ug/mIFE U Specimen Type Arterial Sample Site Brachial, right ABG pH 7.48 H (7.35-7.45) ABG pCO2 42.7 (35-45) mmHg ABG pO2 63.7 L (80.0-100.0) mmH g ABG HCO3 31.9 H (22-26) mmol/L ABG Base Excess 7.7 H (-2.0-2.0) mmol/ L Jorge Test N/a Hematocrit 28.8 L (37-47) % O2 Delivery Device Nc O2 Liters/Min 2.0 % FiO2 28.0 % Furnace Brazer ID Jlg Sodium (136-145) mmol/L Potassium (3.5-5.1) mmol/L Chloride (98-107) mmol/L Carbon Dioxide (22-29) mmol/L Anion Gap (5-19) BUN (8-23) mg/dL Creatinine (0.5-0.9) mg/dL GFR Calculation Glucose (65-115) mg/dL POC Glucose (70-110) mg/dL Calculated Osmolal ity (285-295) mOsm/k g Lactic Acid (0.5-2.2) mmol/L Calcium (8.5-10.5) mg/dL Total Bilirubin (0.15-1.2) mg/dL AST (0-32) U/L ALT (0-33) U/L Alkaline Phosphata se (35-105) IU/L Troponin T Baselin e (0-10) ng/L Troponin T 120 Min kake 194.1 H (0-10) ng/L Delta Troponin T -0.9 L (0-10) ABS# C-Reactive Protein (0.0-4.9) mg/L NT-Pro-B Natriuret Pep (0-450) pg/mL Total Protein (6.6-8.7) g/dL Albumin (3.5-5.2) g/dL Globulin (1.3-4.6) g/dL Procalcitonin 0.20 (0-0.5) ng/mL 09/25/20 Range/Units 11:13 WBC (4.0-10.0) 10^3/ uL RBC (4.1-5.3) 10^6/u L Hgb (11.5-15.3) g/dL Hct (37.0-47.0) % MCV (81-99) fL MCH (28.0-34.0) pg MCHC (30.0-36.0) g/dL RDW (12.1-15.1) % Plt Count (130-400) 10^3/c mm MPV (7.4-10.4) fL Neut % (Auto) % Lymph % (Auto) % [place] % (Auto) % Eos % (Auto) % Baso % (Auto) % Neut # (Auto) (1.8-7.7) 10^3/u L Lymph # (Auto) (0.8-4.8) 10^3/u L [place] # (Auto) (0.2-0.9) 10^3/u L Eos # (Auto) (0.0-0.8) 10^3/u L Baso # (Auto) (0.0-0.1) 10^3/u L Nucleated RBC % (a uto) % Nucleated RBCs # /100WBC D-Dimer (0-0.59) ug/mIFE U Specimen Type Sample Site ABG pH (7.35-7.45) ABG pCO2 (35-45) mmHg ABG pO2 (80.0-100.0) mmH g ABG HCO3 (22-26) mmol/L ABG Base Excess (-2.0-2.0) mmol/ L Jorge Test Hematocrit (37-47) % O2 Delivery Device O2 Liters/Min % FiO2 % Furnace Brazer ID Sodium (136-145) mmol/L Potassium (3.5-5.1) mmol/L Chloride (98-107) mmol/L Carbon Dioxide (22-29) mmol/L Anion Gap (5-19) BUN (8-23) mg/dL Creatinine (0.5-0.9) mg/dL GFR Calculation Glucose (65-115) mg/dL POC Glucose 179 H (70-110) mg/dL Calculated Osmolal ity (285-295) mOsm/k g Lactic Acid (0.5-2.2) mmol/L Calcium (8.5-10.5) mg/dL Total Bilirubin (0.15-1.2) mg/dL AST (0-32) U/L ALT (0-33) U/L Alkaline Phosphata se (35-105) IU/L Troponin T Baselin e (0-10) ng/L Troponin T 120 Min kake (0-10) ng/L Delta Troponin T (0-10) ABS# C-Reactive Protein (0.0-4.9) mg/L NT-Pro-B Natriuret Pep (0-450) pg/mL Total Protein (6.6-8.7) g/dL Albumin (3.5-5.2) g/dL Globulin (1.3-4.6) g/dL Procalcitonin (0-0.5) ng/mL Discharge Plan Discharge Patient Disposition: Admitted As Inpatient Clinical Impression: Acute exacerbation of CHF (congestive heart failure), CKD (chronic kidney disease), Atrial fibrillation with rapid ventricular response, Anemia Condition: Stable Coding Level of Care Code ED Pneumatic Hoist Operator for Chg Fwd Exam Detailed
[2020-09-25 06:09] LABS: ABG PCO2 42.7 mmHg (35-45); ABG PH Result 7.48 (7.35-7.45); Arterial Blood Gas Hematocrit 28.8 % (37-47); Base Excess ABG 7.7 mmol/L (-2.0-2.0); Blood Gas Sample Site Brachial, right; Blood Gas Sample Type Arterial; HCO3 ABG 31.9 mmol/L (22-26); Oxygen Device NC; PO2 ABG 63.7 mmHg (80.0-100.0)
[2020-09-25 06:14] LABS: Alanine Aminotransferase 10 U/L (0-33); Albumin Level 3.4 g/dL (3.5-5.2); Alkaline Phosphatase 89 IU/L (35-105); Anion Gap 12.8 (5-19); Aspartate Amino Transferase 8 U/L (0-32); Blood Urea Nitrogen 29 mg/dL (8-23); C Reactive Protein 23.7 mg/L (0.0-4.9); Carbon Dioxide 31 mmol/L (22-29); Chloride 98 mmol/L (98-107); Glucose 157 mg/dL (65-115); Lactic Sepsis W/Reflex 1.4 mmol/L (0.5-2.2); Osmolality Calculated 295 mOsm/kg (285-295); Potassium 3.8 mmol/L (3.5-5.1); Sodium 138 mmol/L (136-145); Total Bilirubin 0.5 mg/dL (0.15-1.2); Total Protein 6.4 g/dL (6.6-8.7)
[2020-09-25 06:30] LABS: Troponin(5th) Baseline 195 ng/L (0-10)
[2020-09-25 06:31] LABS: Calcium 9.2 mg/dL (8.5-10.5)
[2020-09-25 06:34] LABS: NT Pro B Type Natriuretic Pept 4831 pg/mL (0-450)
--- NOTE | 2020-09-25 06:57 | PC.NURSE ---
Report to SERA Chandra
--- NOTE | 2020-09-25 06:58 | PC.NURSE ---
Report to SERA Chandra
[2020-09-25] MEDS: FUROsemide 10 mg/mL SDV 10mL 60 MG IVP ×2 (07:15→22:29)
--- NOTE | 2020-09-25 07:33 | NM_ITS ---
WS: [id number] NUCLEAR MEDICINE VENTILATION/PERFUSION LUNG SCAN HISTORY: elevated d dimer, post covid COMPARISON: None available. TECHNIQUE: Ventilation: 30.2 mCi of Technetium 99 DTPA aerosol inhaled. Perfusion: 5.0 mCi of technetium 99m MAA IV. Perfusion portion of the examination is near normal. There are a few matched defects bilaterally. The re is a very small RIGHT upper lobe defect which may not be matched. This is a subsegmental defect in the periphery. Ventilatory portion of the examination is limited by the significant airspace disease noted on radiograph. NM/NM pul vent and perfus* [id number] IMPRESSION: Indeterminate for pulmonary embolism. Predominantly due to the significant diff use airspace disease throughout both lungs.
--- NOTE | 2020-09-25 07:59 | PC.NURSE ---
Pt up to the BS at this time.
--- NOTE | 2020-09-25 08:02 | ECG_ITS ---
[facility] Test Date: 2020-09-25 Pat Name: Luiza Cooper Department: Room: Gender: Female Branch Logistics Supervisor: : 1940 Requested By: Zachariah Rondon Order Number: [id number] Reading MD: MATHEW SPENCER Measurements Intervals [place] Rate: 111 P: NM: QRS: 66 QRSD: 89 T: 35 QT: 334 QTc: 455 Interpretive Statements ATRIAL FIBRILLATION WITH RAPID VENTRICULAR RESPONSE LOW QRS VOLTAGE IN EXTREMITY LEADS [QRS DEFLECTION < 0.5 mV IN LIMB LEADS] POSSIBLE ANTERIOR MYOCARDIAL INFARCTION , PROBABLY OLD [30 ms Q WAVE IN V3/V4, OR R < 0.2 mV IN V4] ABNORMAL RHYTHM ECG Compared to ECG 09/25/2020 05:38:24 No significant changes Electronically Signed On 09-25-2020 20:01:01 FINANCIAL CONTROLLER by MATHEW SPENCER [id number]
[2020-09-25 08:26] LABS: Troponin 5 2HR 194.1 ng/L (0-10); Troponin 5 2HR Delta -0.9 ABS# (0-10)
[2020-09-25] MEDS: dilTIAZem ER (24HR) 180 mg Capsule 360 MG PO (09:14)
[2020-09-25] MEDS: enoxaparin 100 mg/mL Syringe 90 MG SUBCUT (09:14)
[2020-09-25] MEDS: pantoprazole DR 40 mg Tablet PO (09:15)
[2020-09-25] MEDS: potassium chloride ER 10 mEq Tablet 20 MEQ PO (09:15)
[2020-09-25] MEDS: levothyroxine 150 mcg Tablet 75 MCG PO (09:16)
[2020-09-25] MEDS: metoprolol tartrate 50 mg Tablet 100 MG PO ×2 (09:16→22:28)
[2020-09-25] MEDS: cyanocobalamin 1,000 mcg Tablet 1000 MCG PO (09:17)
[2020-09-25] MEDS: folic acid 1 mg Tablet PO (09:17)
[2020-09-25] MEDS: docusate sodium 100 mg Capsule PO (09:18)
[2020-09-25] MEDS: ferrous sulfate EC 325 mg Tablet PO (09:18)
[2020-09-25 11:16] LABS: Glucose Point of Care 179 mg/dL (70-110)
--- NOTE | 2020-09-25 12:02 | ECG_ITS ---
[facility] Test Date: 2020-09-25 Pat Name: Luiza Cooper Department: Room: Gender: Female Industrial Diamond Polisher: : 1940 Requested By: Zachariah Rondon Order Number: [id number] Reading MD: MATHEW SPENCER Measurements Intervals [place] Rate: 82 P: MA: QRS: 69 QRSD: 102 T: 79 QT: 382 QTc: 448 Interpretive Statements Due to artifact cannot interpret the exam Electronically Signed On 09-25-2020 20:00:52 FERRIS WHEEL ATTENDANT by MATHEW SPENCER [id number]
[2020-09-25 13:14] LABS: Troponin 5 6HR Delta 1.4 ng/L (0-12)
[2020-09-25 13:18] LABS: Troponin 5 6HR 196.4 ng/L (0-10)
--- NOTE | 2020-09-25 13:18 | PC.NURSE ---
6 hr troponin 196.4
--- NOTE | 2020-09-25 14:00 | PC.NURSE ---
Patient rolled over to ER hold at this time
--- NOTE | 2020-09-25 17:29 | PM.HP ---
Providers/Chief Complaint Admitting Physician: Gabriele Rosales MD Primary Care Provider: Mann Garduno MD Chief Complaint: SOB/tested + for covid aug 02 History of Present Illness Luiza Cooper is a 80 year old female presenting to the hospital with increasing shortness of breath and edema. She has had several recent hospitalizations, 1 for Covid and 1 for heart failure. She was most recently discharged on September 11. She denies any chest pain. She has had no fevers. She does have occasional cough. There has been no vomiting. She has had to increase her oxygen at home to 3 L. Patient and daughter both report that overall her atrial fibrillation has been controlled at home with heart rate resting less than 100. Eliquis was discontinued at her last hospital stay secondary to anemia. She was also noted to have heme positive stool at that time. Review of Systems General: Reports: 10 or more systems reviewed and unremarkable except in HPI and below Const: Denies: fever(s) Eyes: Denies: change in vision ENMT: Denies: throat pain Card: Reports: swelling of feet/ankles; Denies: chest pain Resp: Reports: dyspnea GI: Denies: abdominal pain : Denies: flank pain Musc: Denies: neck pain Skin/Breast: Denies: rash Neuro: Denies: headache(s) Psych: Denies: anxiety Endo: Denies: polyuria [place]/Lymph: Denies: easy bruising All/Imm: Denies: urticaria Medications/Allergies Home Medications Medication Instructions Recorded Confirmed Last Taken Type atorvastatin 10 mg tablet 5 mg PO DAILY@18 tab 03/15/20 09/25/20 09/24/20 History doxazosin 2 mg tablet 2 mg PO BEDTIME@20 03/15/20 09/25/20 09/24/20 History insulin lispro 100 unit/mL See Rx Instructions .ROUTE .COMPLEX 03/15/20 09/25/20 09/24/20 History subcutaneous solution levothyroxine 75 mcg tablet 75 mcg PO DAILY@08 03/15/20 09/25/20 09/24/20 History potassium chloride 10 mEq 20 meq PO DAILY@08 tab 03/15/20 09/25/20 09/24/20 History tablet,extended release(part/cryst) coenzyme Q10 100 mg capsule 100 mg PO DAILY@18 03/26/20 09/25/20 09/24/20 History docusate sodium 100 mg capsule 100 mg PO DAILY@08 03/26/20 09/25/20 09/24/20 History ferrous sulfate 325 mg (65 mg 325 mg PO TID@08,12,03/26/20 09/25/20 09/24/20 History iron) tablet acetaminophen [Tylenol Extra 500 - 1,000 mg PO PRN PRN 07/31/20 09/25/20 Unknown History Strength] hydrocodone-acetaminophen 1 tab PO Q6H PRN #15 tab 08/31/20 09/25/20 Unknown Rx Lantus U-100 Insulin 15 unit SUBCUT BEDTIME@09/07/20 09/25/20 09/25/20 History albuterol sulfate 1 puff INHALATION Q6H PRN 09/07/20 09/25/20 Unknown History aspirin 81 mg PO DAILY@18 09/07/20 09/25/20 09/24/20 History fluticasone propion-salmeterol 1 ea INHALATION BID@0800,2000 09/07/20 09/25/20 09/24/20 History [Advair Diskus] furosemide [Lasix] 40 mg PO BID@0800,1800 09/07/20 09/25/20 09/24/20 History pantoprazole 40 mg tablet,delayed 40 mg PO DAILY@08 #60 tab 09/10/20 09/25/20 09/24/20 Rx release metoprolol tartrate 100 mg PO BID@0900,2100 30 Days 09/11/20 09/25/20 09/24/20 Rx #60 tab sucralfate 1 g PO BIDAC 15 Days #30 tab 09/11/20 09/25/20 Unknown Rx amiodarone [Pacerone] 200 mg PO DAILY 09/25/20 09/25/20 09/24/20 History cyanocobalamin (vitamin B-12) 1,000 mcg PO DAILY@0800 09/25/20 09/25/20 09/24/20 History [Vitamin B-12] diltiazem HCl 360 mg PO DAILY@0800 09/25/20 09/25/20 09/24/20 History folic acid 1 mg PO DAILY@1200 09/25/20 09/25/20 09/24/20 History metoprolol succinate 100 mg PO DAILY@0900,2100 09/25/20 09/25/20 09/24/20 History mirtazapine 15 mg PO BEDTIME@199909/25/20 09/25/20 09/24/20 History Allergies Allergy/AdvReac Type Severity Reaction Status Date / Time Penicillins Allergy Unknown Unknown Verified 09/25/20 05:29 PFSH Acute PFSH: Medical History Atrial fibrillation CHF (congestive heart failure) CKD (chronic kidney disease) COVID-19 Diagnosed 08/02/2020 Diabetes GERD (gastroesophageal reflux disease) HTN (hypertension) Hypothyroidism PVC (premature ventricular contraction) Surgical History S/P cataract extraction S/P cervical spinal fusion S/P tonsillectomy Status post tubal ligation Family History Mother Hypertension Grandmother Hypertension MATERNAL Other Cancer Diabetes Social History Smoking and tobacco status: former smoker Alcohol intake: never Household members: spouse Marital status: Vitals/I&O/Wt Last Vital Signs Temp 98.2 F 09/25/20 05:26 Pulse 99 09/25/20 17:28 Resp 20 H 09/25/20 17:28 BP 132/75 09/25/20 17:28 Pulse Ox 94 09/25/20 17:28 Weight last 48 hrs Weight 87.997 kg Physical Exam Narrative: EXAM NARRATIVE: General exam is a white female, on 3 L of oxygen in no respiratory distress HEENT: Atraumatic normocephalic. Pupils equally round. Oropharynx clear. Neck is supple no lymphadenopathy or thyromegaly Cardiovascular irregular, irregular with no murmur. Lungs crackles bilaterally. No wheezing. Abdomen is soft nontender with positive bowel sounds. No obvious organomegaly was deferred Extremities no cyanosis or clubbing. 2+ edema is noted. Skin no rash Neuro no focal deficits. Data : 09/25/20 05:30 09/25/20 05:30 Other data: Dimer is elevated at 2.3 ABG demonstrates pH 7.48, PCO2 43, PO2 63 Troponin I 95 with no significant delta BNP 4800 CRP 24 Procalcitonin 0.2 A&P Assessment and plan (1) CHF (congestive heart failure): Diuresis with IV Lasix will be initiated. She received 60 mg in the emergency department Place Corral catheter for accurate ins and outs Secondary to diuresis and chronic kidney disease hold her ARB currently Consider cardiology consultation Repeat echocardiogram. Last August 03, 2020 demonstrated preserved EF. We will check a limited echo for EF and pulmonary pressures Status: Acute Qualifiers: Heart failure type: diastolic (2) CKD (chronic kidney disease): Close follow-up of renal function Avoid all anti-inflammatories Renal ultrasound 6 weeks ago no evidence of obstruction Check urinalysis Status: Acute (3) Anemia: Status: Acute (4) Atrial fibrillation with controlled ventricular rate: Status: Acute (5) Diabetes: Avoid anticoagulants May continue aspirin Close follow-up of hemoglobin Status: Acute (6) HTN (hypertension): Hold ARB Continue other antihypertensives Status: Acute Qualifiers: Hypertension type: essential hypertension Qualified Code(s): I10 - Essential (primary) hypertension Additional A&P Information Hypothyroidism. Continue home medication Elevated dimer. VQ scan ordered by emergency department indeterminate for pulmonary embolism. Note that recent venous duplex in August was negative for DVT as well. Full code SCDs DVT prophylaxis Attestations Medical Necessity Statement*: Will need greater than 2 midnight stay for treatment of congestive heart failure exacerbation Time Spent in Patient Care: Greater than 35 minutes Coding Level of Care Code Acute Mainspring Strip Inspector for Chg Fwd Diagnoses CHF (congestive heart failure) I50.9 Heart failure type: diastolic CKD (chronic kidney disease) N18.9 Anemia D64.9 Atrial fibrillation with controlled ventricular rate I48.91 Diabetes E11.9 HTN (hypertension) I10 Hypertension type: essential hypertension
[2020-09-25 18:15] LABS: Glucose Point of Care 267 mg/dL (70-110)
[2020-09-25] MEDS: aspirin 81 mg Chew Tablet PO (18:23)
--- NOTE | 2020-09-25 20:17 | PC.NURSE ---
PT ARRIVED TO ROOM 112-2. PT DENIES BEING SOB. O2 SATURATION WAS BELOW 88% ON 3L THIS NURSE TURN O2 UP TO 4L O2 SATURATION 92%. PT DENIES PAIN. PT WAS ORIENTATED TO ROOM. PT STATES THAT SHE IS AWARE THIS IS THE SAME ROOM SHE WAS IN 5 DAYS AGO. WILL CONTINUE TO MONITOR.
[2020-09-25 21:32] LABS: Glucose Point of Care 154 mg/dL (70-110)
[2020-09-25] MEDS: atorvastatin 40 mg Tablet 20 MG PO (22:26)
[2020-09-26] VITALS (12 sets, daily range): BP systolic 98–152; BP diastolic 68–88; PULSE 80–131; RESP 18–22; TEMP 35.6–37.3; O2SAT 91–97
--- NOTE | 2020-09-26 03:25 | PC.NURSE ---
NURSE NOTE: SHIFT SUMMARY: PT ALERT AND ORIENTED X4. MOVES ALL EXTREMITIES AND FOLLOWS COMMANDS. DENIES PAIN THIS SHIFT. RESTING WITH EYES CLOSED; RESP EVEN AND NON LABORED. BUCK CATH PATENT TO DD. OUTPUT ADEQUATE. ALL VS AND ASSESSMENTS CHARTED. NO DISTRESS NOTED AT THIS TIME. WILL CONTINUE TO MONITOR.
[2020-09-26 04:26] LABS: Basophils # 0.1 10^3/uL (0.0-0.1); Basophils % 0.9 %; Eosinophils # 0.2 10^3/uL (0.0-0.8); Eosinophils % 1.6 %; Hematocrit 27.1 % (37.0-47.0); Lymphocytes # 2.2 10^3/uL (0.8-4.8); Mean Corpuscular HGB Conc 29.5 g/dL (30.0-36.0); Mean Corpuscular Hemoglobin 29.7 pg (28.0-34.0); Mean Corpuscular Volume 100.7 fL (81-99); Mean Platelet Volume 10.2 fL (7.4-10.4); Monocytes # 0.7 10^3/uL (0.2-0.9); Monocytes % 7.3 %; Neutrophils # 6.35 10^3/uL (1.8-7.7); Neutrophils % 65.7 %; Nucleated Red Blood Cells % 0.2 %; Platelet Count 239 10^3/cmm (130-400); Red Blood Count 2.69 10^6/uL (4.1-5.3); Red Cell Distribution Width 17.1 % (12.1-15.1); White Blood Count 9.7 10^3/uL (4.0-10.0)
[2020-09-26 05:00] LABS: Alanine Aminotransferase 9 U/L (0-33); Albumin Level 2.7 g/dL (3.5-5.2); Alkaline Phosphatase 78 IU/L (35-105); Anion Gap 10.4 (5-19); Aspartate Amino Transferase 7 U/L (0-32); Blood Urea Nitrogen 31 mg/dL (8-23); Calcium 8.7 mg/dL (8.5-10.5); Carbon Dioxide 32 mmol/L (22-29); Chloride 99 mmol/L (98-107); Globulin 2.7 g/dL (1.3-4.6); Glucose 75 mg/dL (65-115); Osmolality Calculated 291 mOsm/kg (285-295); Potassium 3.4 mmol/L (3.5-5.1); Sodium 138 mmol/L (136-145); Total Bilirubin 0.4 mg/dL (0.15-1.2); Total Protein 5.4 g/dL (6.6-8.7)
[2020-09-26 06:38] LABS: Glucose Point of Care 118 mg/dL (70-110)
[2020-09-26] MEDS: potassium chloride ER 20 mEq Tablet 40 MEQ PO (06:47)
--- NOTE | 2020-09-26 07:00 | USCV_ITS ---
Luiza Cooper Age: 80 Gender: F : 1940 Exam Date: 09/26/2020 06:39 Ordering Phys: Gabriele Rosales MD Technologist: Maira Ochoa [place] [facility] [place]: EF BP: 117 / 70 HR: 97 Rhythm: Atrial fibrillation Technical Quality: Adequate MEASUREMENTS (Male / Female) Normal Values 2D ECHO LV Diastolic Diameter PLAX 3.1 cm 4.2 - 5.9 / 3.9 - 5.3 cm LV Systolic Diameter PLAX 2.0 cm LV Chamber Size 2.9 cm IVS Diastolic Thickness 1.1 cm 0.6 - 1.0 / 0.6 - 0.9 cm IVS Systolic Thickness 1.4 cm LVPW Diastolic Thickness 1.6 cm 0.6 - 1.0 / 0.6 - 0.9 cm LVPW Systolic Thickness 1.7 cm RV Chamber Size 2.9 cm LVOT Diameter 2.0 cm LV Ejection Fraction 2D Teich 66.2 % LV Ejection Fraction MOD 2C 53.1 % LV Ejection Fraction 2C AL 53.6 % LA Diameter 3.3 cm LA Width 3.5 cm LA Height 5.3 cm RA Width 3.6 cm RA Height 4.0 cm M-MODE LV Diastolic Diameter MM 5.9 cm 4.2 - 5.9 / 3.9 - 5.3 cm LV Systolic Diameter MM 4.5 cm LV Ejection Fraction MM Teich 45.1 % IVS Diastolic Thickness MM 0.8 cm 0.6 - 1.0 / 0.6 - 0.9 cm IVS Systolic Thickness MM 1.1 cm LVPW Diastolic Thickness MM 1.0 cm 0.6 - 1.0 / 0.6 - 0.9 cm LVPW Systolic Thickness MM 1.1 cm Aortic Annulus Diameter 1.8 cm LA Ao Ratio MM 2.1 MV E Point Septal Separation 0.6 cm FINDINGS Left Ventricle Normal left ventricular cavity size. Normal left ventricular systolic function. Left ventricular ejection fraction is estimated at 55-60 %. No diagnostic regional wall motion abnormality. Right Ventricle Upper normal right ventricular size and at least mildly decreased systolic function. Right Atrium Upper normal right atrial size. Right atrial pressure estimated at 15 mmHg. Left Atrium Moderately increased left atrial size. Mitral Valve Mild mitral annular calcification. Structurally normal mitral valve. Aortic Valve Aortic valve not well visualized. Tricuspid Valve Structurally normal tricuspid valve. Pulmonic Valve Pulmonic valve not well visualized. Pericardium Trivial pericardial effusion. Aorta Aorta not well visualized. Dilated inferior vena cava with less than 50% respiratory variation. CONCLUSIONS 1. This is a limited echocardiogram with 2D evaluation only. 2. Normal left ventricular cavity size. Normal left ventricular systolic function. Left ventricular ejection fraction is estimated at 55-60 %. No diagnostic regional wall motion abnormality. 3. Upper normal right ventricular size and at least mildly decreased systolic function. 4. Moderately increased left atrial size. 5. Dilated inferior vena cava with less than 50% respiratory variation. 6. Right atrial pressure estimated at 15 mmHg. 7. When compared to previous echocardiogram dated 08/03/2020, right ventricular systolic function may have decreased. Lory Egan MD (Electronically Signed) Final Date: 26 September 2020 17:18 Amended: 27 September 2020 09:14 C
[2020-09-26] MEDS: cyanocobalamin 1,000 mcg Tablet 1000 MCG PO (08:06)
[2020-09-26] MEDS: metoprolol tartrate 50 mg Tablet 100 MG PO ×2 (08:07→21:57)
[2020-09-26] MEDS: folic acid 1 mg Tablet PO (08:07)
[2020-09-26] MEDS: dilTIAZem ER (24HR) 120 mg Capsule 360 MG PO (08:10)
[2020-09-26] MEDS: levothyroxine 150 mcg Tablet 75 MCG PO (08:12)
[2020-09-26] MEDS: pantoprazole DR 40 mg Tablet PO (08:14)
[2020-09-26] MEDS: amiodarone 200 mg Tablet PO (08:14)
[2020-09-26] MEDS: FUROsemide 10 mg/mL SDV 10mL 60 MG IVP ×2 (08:15→21:28)
--- NOTE | 2020-09-26 09:43 | PC.NURSE ---
During HErat to heart rounding with provider and ancillary staff, verbal instructions given to start PT
--- NOTE | 2020-09-26 10:50 | P.PN_ITS ---
Subjective Subjective: Interval history: Luiza reports she is doing okay. She is less short of breath. Medications: Reviewed: Yes Vitals/I&O/Wt Last Vital Signs Temp 96.0 F L 09/26/20 08:00 Pulse 120 H 09/26/20 08:00 Resp 18 09/26/20 08:00 BP 130/84 09/26/20 08:00 Pulse Ox 93 09/26/20 08:00 09/25/20 09/26/20 09/26/20 22:59 06:59 14:59 Intake Total 360 / 360 120 / 120 Output Total 1200 / 1200 Balance 360 / 360 -1200 / -840 120 / 120 Weight last 48 hrs Weight 87.997 kg Physical Exam Narrative: EXAM NARRATIVE: General exam no apparent distress Neck is supple no lymphadenopathy or thyromegaly Cardiovascular irregular, irregular with no murmur. Lungs crackles bilaterally. No wheezing. Abdomen is soft nontender with positive bowel sounds. No obvious organomegaly Extremities no cyanosis or clubbing. 2+ edema is noted. Urinary Catheter Management^: Corral: Cath Placed During This Visit: yes Reason for Continuing Indwelling Catheter: Accurate Measurement of Urinary Output in Critically Ill Patients Urinary Catheter Date of Insertion: 09/25/20 Urinary Catheter Time of Insertion: 21:00 Data : 09/26/20 02:58 09/26/20 02:58 A&P Assessment and plan (1) CHF (congestive heart failure): Continue diuresis. Monitor output closely. Place Corral catheter for accurate ins and outs Holding ARB secondary to renal function Cardiology consultation Repeat echocardiogram. Last August 03, 2020 demonstrated preserved EF. We will check a limited echo for EF and pulmonary pressures. This is still pending Status: Acute Qualifiers: Heart failure type: diastolic (2) CKD (chronic kidney disease): Close follow-up of renal function Avoid all anti-inflammatories Renal ultrasound 6 weeks ago no evidence of obstruction Still awaiting urinalysis If significant decrease in renal function is noted with diuresis consider nephrology consultation Status: Acute (3) Anemia: Hemoglobin slightly less today. No significant clinical evidence for brisk GI bleed. Avoid anticoagulants Status: Acute (4) Atrial fibrillation with controlled ventricular rate: Currently on amiodarone, diltiazem, metoprolol. Still not excellent rate control. Cardiology has been consulted. Status: Acute (5) Diabetes: Sliding scale insulin Status: Acute (6) HTN (hypertension): Hold ARB Continue other antihypertensives Status: Acute Qualifiers: Hypertension type: essential hypertension Qualified Code(s): I10 - Essential (primary) hypertension Additional A&P Information Hypothyroidism. Continue home medication Elevated dimer. VQ scan ordered by emergency department indeterminate for pulmonary embolism. Note that recent venous duplex in August was negative for DVT as well. 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
[2020-09-26 11:20] LABS: Glucose Point of Care 181 mg/dL (70-110)
--- NOTE | 2020-09-26 12:01 | PM.CONSULT ---
Providers/Reason For Consult Consulting Physican/Specialty*: Dr. Egan, cardiology Reason for Consult*: Congestive heart failure and atrial fibrillation Attending Physician: Gabriele Rosales MD Primary Care Provider: Mann Garduno MD History of Present Illness History of Present Illness Luiza Cooper is a 80 year old female with past medical history of hypertension, hyperlipidemia, hypothyroidism, CKD stage IV, obesity, insulin-dependent diabetes mellitus who was admitted to [facility] on 02 August with COVID PNA. She was admitted again on 07 September for decompensated congestive heart failure and was discharged home after diuresis. In that setting her creatinine increased and Lasix was held and subsequently she was discharged home on Lasix 40 mg daily. Her Eliquis was held because of worsening anemia and FOBT positive finding. She also received 1 packed red blood cell transfusion at the time. She was also started on amiodarone 200 mg. She was discharged home on 11 September 2020. She was admitted again on 25 September with worsening shortness of breath and edema. She received Lasix 60 mg IV x1 in the ER and this morning another 60 mg. she is -840 mL with urine output of 200 mL. She has been having good urine output. Her daughter Ness works at [employer] [place] She states that she used to feel really full and her appetite was decreased but that has improved since admission. She was saturating low 90s with 2 to 3 L at home. She is currently requiring 2 1/2 L of oxygen. Telemetry was reviewed that showed A. fib with RVR with heart rate in 110's to 120s. She has gained about 15 pounds since July. She denies any orthopnea or paroxysmal nocturnal dyspnea but does complain of lower extremity swelling worsening over the past week. She has never had endoscopy or colonoscopy before but has been struggling with anemia for the past year. History was obtained from patient chart as well as from patient's daughter Ness. Review of Systems General: Reports: 10 or more systems reviewed and unremarkable except in HPI and below Const: Denies: fever(s) Eyes: Denies: change in vision ENMT: Denies: throat pain Card: Reports: swelling of feet/ankles; Denies: chest pain Resp: Reports: dyspnea GI: Denies: abdominal pain : Denies: flank pain Musc: Denies: neck pain Skin/Breast: Denies: rash Neuro: Denies: headache(s) Psych: Denies: anxiety Endo: Denies: polyuria Newton/Lymph: Denies: easy bruising All/Imm: Denies: urticaria Meds/Allergies Home Medications and Allergies Home Medications Medication Instructions Recorded Confirmed Last Taken Type atorvastatin 10 mg tablet 5 mg PO DAILY@18 tab 03/15/20 09/25/20 09/24/20 History doxazosin 2 mg tablet 2 mg PO BEDTIME@20 03/15/20 09/25/20 09/24/20 History insulin lispro 100 unit/mL See Rx Instructions .ROUTE .COMPLEX 03/15/20 09/25/20 09/24/20 History subcutaneous solution levothyroxine 75 mcg tablet 75 mcg PO DAILY@08 03/15/20 09/25/20 09/24/20 History potassium chloride 10 mEq 20 meq PO DAILY@08 tab 03/15/20 09/25/20 09/24/20 History tablet,extended release(part/cryst) coenzyme Q10 100 mg capsule 100 mg PO DAILY@18 03/26/20 09/25/20 09/24/20 History docusate sodium 100 mg capsule 100 mg PO DAILY@08 03/26/20 09/25/20 09/24/20 History ferrous sulfate 325 mg (65 mg 325 mg PO TID@08,12,03/26/20 09/25/20 09/24/20 History iron) tablet acetaminophen [Tylenol Extra 500 - 1,000 mg PO PRN PRN 07/31/20 09/25/20 Unknown History Strength] hydrocodone-acetaminophen 1 tab PO Q6H PRN #15 tab 08/31/20 09/25/20 Unknown Rx Lantus U-100 Insulin 15 unit SUBCUT BEDTIME@20 09/07/20 09/25/20 09/25/20 History albuterol sulfate 1 puff INHALATION Q6H PRN 09/07/20 09/25/20 Unknown History aspirin 81 mg PO DAILY@18 09/07/20 09/25/20 09/24/20 History fluticasone propion-salmeterol 1 ea INHALATION BID@0800,2000 09/07/20 09/25/20 09/24/20 History [Advair Diskus] furosemide [Lasix] 40 mg PO BID@0800,1800 12/09/25/20 09/24/20 History pantoprazole 40 mg tablet,delayed 40 mg PO DAILY@08 #60 tab 09/10/20 09/25/20 09/24/20 Rx release metoprolol tartrate 100 mg PO BID@0900,2100 30 Days 09/11/20 09/25/20 09/24/20 Rx #60 tab sucralfate 1 g PO BIDAC 15 Days #30 tab 09/11/20 09/25/20 Unknown Rx amiodarone [Pacerone] 200 mg PO DAILY 09/25/20 09/25/20 09/24/20 History cyanocobalamin (vitamin B-12) 1,000 mcg PO DAILY@0800 09/25/20 09/25/20 09/24/20 History [Vitamin B-12] diltiazem HCl 360 mg PO DAILY@0800 09/25/20 09/25/20 09/24/20 History folic acid 1 mg PO DAILY@1200 09/25/20 09/25/20 09/24/20 History metoprolol succinate 100 mg PO DAILY@0900,2100 09/25/20 09/25/20 09/24/20 History mirtazapine 15 mg PO BEDTIME@199909/25/20 09/25/20 09/24/20 History Allergies Allergy/AdvReac Type Severity Reaction Status Date / Time Penicillins Allergy Unknown Unknown Verified 09/25/20 05:29 Current Medications Current Medications Generic Name Dose Route Start Last Admin Trade Name Freq PRN Reason Stop Dose Admin Amiodarone HCl 200 mg 09/26/20 09:00 09/26/20 08:14 Amiodarone 200 Mg Tablet PO 200 mg DAILY NIKO Administration Aspirin 81 mg 09/25/20 18:00 09/25/20 18:23 Aspirin 81 Mg Chew Tablet PO 81 mg DAILY@18 NIKO Administration Atorvastatin Calcium 20 mg 09/25/20 21:00 09/25/20 22:26 Atorvastatin 40 Mg Tablet PO 20 mg BEDTIME NIKO Administration Cyanocobalamin 1,000 mcg 09/25/20 09:00 09/26/20 08:06 Cyanocobalamin 1,000 Mcg Tablet PO 1,000 mcg DAILY NIKO Administration Diltiazem HCl 360 mg 09/26/20 08:00 09/26/20 08:10 Diltiazem Er (24hr) 120 Mg Capsule PO 360 mg DAILY@0800 NIKO Administration Folic Acid 1 mg 09/25/20 09:00 09/26/20 08:07 Folic Acid 1 Mg Tablet PO 1 mg DAILY NIKO Administration Furosemide 60 mg 09/25/20 19:15 09/26/20 08:15 Furosemide 10 Mg/Ml Sdv 10ml IVP 60 mg Q12H NIKO Administration Insulin Aspart 0 unit 09/25/20 18:00 09/26/20 11:58 Insulin Aspart 100 Unit/1 Ml SUBCUT 6 unit WM&BEDTIME NIKO Administration Protocol Levothyroxine Sodium 75 mcg 09/26/20 08:00 09/26/20 08:12 Levothyroxine 150 Mcg Tablet PO 75 mcg DAILY@08 NIKO Administration Metoprolol Tartrate 100 mg 09/25/20 21:00 09/26/20 08:07 Metoprolol Tartrate 50 Mg Tablet PO 100 mg BID@0900,2100 NIKO Administration Pantoprazole Sodium 40 mg 09/26/20 08:00 09/26/20 08:[address] 40 Mg Tablet PO 40 mg DAILY@08 NIKO Administration Fluticasone/Salmeterol 1 puff 09/25/20 20:00 09/26/20 07:42 Fluticasone-Salmeterol 250-50 Diskus INHALATION 1 puff BID.RESPIRATORY NIKO Administration PFSH Acute PFSH: Medical History Atrial fibrillation CHF (congestive heart failure) CKD (chronic kidney disease) COVID-19 Diagnosed 08/02/2020 Diabetes GERD (gastroesophageal reflux disease) HTN (hypertension) Hypothyroidism PVC (premature ventricular contraction) Surgical History S/P cataract extraction S/P cervical spinal fusion S/P tonsillectomy Status post tubal ligation Family History Mother Hypertension Grandmother Hypertension MATERNAL Other Cancer Diabetes Social History Smoking and tobacco status: former smoker Alcohol intake: never Household members: spouse Marital status: Vitals/I&O/Wt Last Vital Signs Temp 97.8 F 09/26/20 11:16 Pulse 108 H 09/26/20 11:16 Resp 18 09/26/20 11:16 BP 146/82 09/26/20 11:16 Pulse Ox 92 09/26/20 11:16 09/25/20 09/26/20 09/26/20 22:59 06:59 14:59 Intake Total 360 / 360 120 / 120 Output Total 1200 / 1200 Balance 360 / 360 -1200 / -840 120 / 120 Weight last 48 hrs Weight 194 lb Physical Exam Narrative: EXAM NARRATIVE: GENERAL: Obese woman sitting in bed in no acute distress HEENT: Extraocular movement intact. Pupils equal round reactive to light. Mild pallor with no icterus. NECK: central trachea, elevated JVD, No carotid bruit. CARDIOVASCULAR SYSTEM: S1-S2 irregular variable intensity no murmur rubs or gallops. RESPIRATORY SYSTEM: Decreased breath sounds at bilateral bases. No wheezes, coarse rhonchi. No use of accessory muscles. ABDOMEN: Soft, nontender and nondistended. Normal bowel sounds present. EXTREMITIES: No cyanosis or clubbing. No edema. No signs of chronic venous insufficiency. 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 No focal neurological deficits. Cranial nerves intact. SKIN: Normal turgor and temperature. No breakdown, rash or nail changes noted. PSYCH: Normal insight and judgment. Urinary Catheter Management^: Corral: Cath Placed During This Visit: yes Reason for Continuing Indwelling Catheter: Accurate Measurement of Urinary Output in Critically Ill Patients Urinary Catheter Date of Insertion: 09/25/20 Urinary Catheter Time of Insertion: 21:00 Data Labs: Other Labs: Elevated D-dimer. ABG with pH of 7.48, PCO2 42.7, PO2 63.7 on FiO2 28%. Baseline troponin 195, 120 min 194, 196.4. CRP 24. NT Pro BNP-4831. Imaging^: CXR: I personally reviewed and interpreted this imaging study as follows: My impression: IMPRESSION: 1. Diffuse moderate, bilateral interstitial thickening likely due to edema and pneumonia may also be superimposed. Very slight improvement since 09/07/2020 but progression since 08/10/2020. 2. Small LEFT pleural effusion. EKG^: EKG 2: I personally reviewed and interpreted this EKG as follows: My Interpretation: EKG with A. fib with RVR at 111 bpm. Low QRS voltage in extremity leads. Possible old anterior PA. Other Data: Attestation for Other Data: I personally reviewed and interpreted the following: Other data: VQ scan 25 September 2020 Indeterminate for pulmonary embolism. Predominantly due to significant diffuse airspace disease throughout both lungs. Transthoracic echocardiogram 03 August 2020 CONCLUSIONS Normal left ventricular size and systolic function, EF 65 %. No regional wall motion abnormalities. Mildly increased left atrial size. Trace mitral valve regurgitation. Thickened aortic valve. Trace tricuspid valve regurgitation. There is no pericardial effusion. There are no intracardiac masses. Compared to the previous study from 12/15/2018, there may not be a significant change. Lexiscan myocardial perfusion imaging 23 March 2019 IMPRESSIONS #1. Myocardial perfusion imaging revealing a small area of reversible defect in the apical inferior wall region, suggestive of ischemia in the distribution of the distal right coronary artery. #2. Normal LV ejection fraction of 72%. #3. LV wall motion analysis revealed mild hypokinesia of the left ventricular apex. #4. Normal LV volume No similar previous studies are available for comparison A&P Assessment and plan (1) CHF (congestive heart failure): Decompensated congestive heart failure. Continue Lasix 60 mg IV every 12 hours. -We will closely monitor intake and output and daily weight. -Given baseline chronic kidney disease, closely monitor renal function. -Follow-up on BMP and repeat echocardiogram. 0 Status: Acute Qualifiers: Heart failure type: diastolic Heart failure chronicity: acute on chronic Qualified Code(s): I50.33 - Acute on chronic diastolic (congestive) heart failure (2) Atrial fibrillation with controlled ventricular rate: Continue current medications. Not on anticoagulation given anemia requiring blood transfusions. -Continue with rate control strategy given inability to anticoagulate for now. Status: Acute (3) HTN (hypertension): Status: Acute Qualifiers: Hypertension type: essential hypertension Qualified Code(s): I10 - Essential (primary) hypertension (4) CKD (chronic kidney disease): Status: Acute Qualifiers: Chronic kidney disease stage: stage 4 (severe) Qualified Code(s): N18.4 - Chronic kidney disease, stage 4 (severe) (5) Anemia: Macrocytic anemia Status: Acute Qualifiers: Anemia type: unspecified type Qualified Code(s): D64.9 - Anemia, unspecified Additional A&P Information Hypokalemia Elevated troponin in setting of decompensated congestive heart failure and underlying kidney disease. Hypoalbuminemia Thank you for allowing me to participate in patient's care. Please feel free to call with questions or concerns. Consult Attestations Medical Necessity Statement: Patient needs hospital stay for decompensated congestive heart failure. Time Spent in Patient Care: Greater than 35 minutes (>than 50% of time spent in counselling and/or direct pt care on unit). Coding Level of Care Code New Pt Acute Hop Grower for Maria G Grissom Patient Type New History Comprehensive Exam Comprehensive Medical Decision Making High Complexity Diagnoses CHF (congestive heart failure) I50.33 Heart failure type: diastolic Heart failure chronicity: acute on chronic Atrial fibrillation with controlled ventricular rate I48.91 HTN (hypertension) I10 Hypertension type: essential hypertension CKD (chronic kidney disease) N18.4 Chronic kidney disease stage: stage 4 (severe) Anemia D64.9 Anemia type: unspecified type Time Spent (min) 40
[2020-09-26 13:01] LABS: Bilirubin Urine Neg (Negative); Blood Urine 3+ (Negative); Glucose Urine UA Norm (Normal); Ketones Urine Negative (Negative); Leukocyte Esterase Urine 1+ (Negative); Nitrate Urine Negative (Negative); Protein Urine Neg (Negative); Urine Color Yellow (Yellow); Urobilinogen Urine Norm (Negative); pH Urine 5 (5-7)
[2020-09-26 13:03] LABS: Add Urine Culture? Yes; Bacteria Urine TRACE /hpf; RBC Urine TOO NUMEROUS TO CNT /hpf (0-2); WBC Urine >100 /hpf (0-5)
[2020-09-26] MEDS: levofloxacin-dextrose 5 % 500 MG/100 ML PREMIX 100 MG IV (14:08)
[2020-09-26 16:32] LABS: Glucose Point of Care 130 mg/dL (70-110)
[2020-09-26] MEDS: aspirin 81 mg Chew Tablet PO (17:12)
[2020-09-26] MEDS: atorvastatin 40 mg Tablet 20 MG PO (21:56)
[2020-09-26 22:08] LABS: Glucose Point of Care 332 mg/dL (70-110)
[2020-09-27] VITALS (7 sets, daily range): BP systolic 93–164; BP diastolic 57–95; PULSE 80–123; RESP 16–21; TEMP 36.1–36.6; O2SAT 90–95
[2020-09-27 00:42] LABS: Glucose Point of Care 169 mg/dL (70-110)
[2020-09-27 03:50] LABS: Basophils # 0.1 10^3/uL (0.0-0.1); Basophils % 0.8 %; Eosinophils # 0.1 10^3/uL (0.0-0.8); Eosinophils % 1.2 %; Hematocrit 28.6 % (37.0-47.0); Hemoglobin 8.5 g/dL (11.5-15.3); Lymphocytes # 1.9 10^3/uL (0.8-4.8); Lymphocytes % 19.6 %; Mean Corpuscular HGB Conc 29.7 g/dL (30.0-36.0); Mean Corpuscular Volume 101.1 fL (81-99); Mean Platelet Volume 10.3 fL (7.4-10.4); Monocytes # 0.7 10^3/uL (0.2-0.9); Monocytes % 7.2 %; Neutrophils % 69.4 %; Nucleated Red Blood Cells % 0.2 %; Platelet Count 237 10^3/cmm (130-400); Red Blood Count 2.83 10^6/uL (4.1-5.3); Red Cell Distribution Width 17.2 % (12.1-15.1); White Blood Count 9.5 10^3/uL (4.0-10.0)
[2020-09-27 04:26] LABS: Alanine Aminotransferase 9 U/L (0-33); Alkaline Phosphatase 89 IU/L (35-105); Anion Gap 11.8 (5-19); Aspartate Amino Transferase 9 U/L (0-32); Blood Urea Nitrogen 30 mg/dL (8-23); Calcium 9.1 mg/dL (8.5-10.5); Carbon Dioxide 33 mmol/L (22-29); Chloride 99 mmol/L (98-107); Globulin 2.9 g/dL (1.3-4.6); Glucose 136 mg/dL (65-115); Magnesium 1.5 mg/dL (1.7-2.3); Osmolality Calculated 298 mOsm/kg (285-295); Potassium 3.8 mmol/L (3.5-5.1); Sodium 140 mmol/L (136-145); Total Bilirubin 0.4 mg/dL (0.15-1.2); Total Protein 5.9 g/dL (6.6-8.7)
--- NOTE | 2020-09-27 04:47 | PC.NURSE ---
PT IS RESTING IN BED. PT DENIES PAIN. PT HAD O2 STATS DROP INTO THE 80'S. O2 WAS BUMPED 2L. RT CAME DOWN AND DID AN ASSESSMENT. WILL CONTINUE TO MONITOR.
[2020-09-27 06:22] LABS: Glucose Point of Care 174 mg/dL (70-110)
[2020-09-27] MEDS: cyanocobalamin 1,000 mcg Tablet 1000 MCG PO (08:45)
[2020-09-27] MEDS: dilTIAZem ER (24HR) 120 mg Capsule 360 MG PO (08:45)
[2020-09-27] MEDS: metoprolol tartrate 50 mg Tablet 100 MG PO ×2 (08:46→20:14)
[2020-09-27] MEDS: pantoprazole DR 40 mg Tablet PO (08:46)
[2020-09-27] MEDS: amiodarone 200 mg Tablet PO ×2 (08:46→20:14)
[2020-09-27] MEDS: folic acid 1 mg Tablet PO (08:47)
[2020-09-27] MEDS: levothyroxine 150 mcg Tablet 75 MCG PO (08:47)
[2020-09-27] MEDS: magnesium sulfate premix 2 GM/50 ML PIGGYBACK IV (08:47)
--- NOTE | 2020-09-27 09:04 | PM.PN ---
Subjective Subjective: Interval history: Luiza reports she feels better. She is less short of breath. Legs are less swollen, but swelling is still present. Medications: Reviewed: Yes Vitals/I&O/Wt Last Vital Signs Temp 97.6 F 09/27/20 08:00 Pulse 123 H 09/27/20 08:00 Resp 18 09/27/20 08:00 BP 132/95 09/27/20 08:00 Pulse Ox 90 09/27/20 08:00 09/26/20 09/27/20 09/27/20 22:59 06:59 14:59 Intake Total 120 / 240 120 / 120 Output Total 1150 / 1150 550 / 1700 Balance -1030 / -910 -550 / -1460 120 / 120 Physical Exam Narrative: EXAM NARRATIVE: General exam no apparent distress Neck is supple no lymphadenopathy or thyromegaly Cardiovascular irregular, irregular with no murmur. Lungs crackles bilaterally. No wheezing. Abdomen is soft nontender with positive bowel sounds. No obvious organomegaly Extremities no cyanosis or clubbing. 1+ edema is noted Urinary Catheter Management^: Corral: Cath Placed During This Visit: yes Reason for Continuing Indwelling Catheter: Accurate Measurement of Urinary Output in Critically Ill Patients Urinary Catheter Date of Insertion: 09/25/20 Urinary Catheter Time of Insertion: 21:00 Data : 09/27/20 03:05 09/27/20 03:05 A&P Assessment and plan (1) CHF (congestive heart failure): Appreciate cardiology consultation Currently on Lasix 60 mg IV every 12 hours Creatinine has increased slightly to 2.6, although BUN remains the same. Defer to cardiology diuresis regimen. Continue Corral catheter for accurate ins and outs Holding ARB secondary to renal function Limited echo demonstrated preserved EF, normal RV size Status: Acute Qualifiers: Heart failure type: diastolic Heart failure chronicity: acute on chronic Qualified Code(s): I50.33 - Acute on chronic diastolic (congestive) heart failure (2) CKD (chronic kidney disease): Close follow-up of renal function Avoid all anti-inflammatories Renal ultrasound 6 weeks ago no evidence of obstruction Urinalysis indicated possible UTI. IV antibiotics initiated. Levaquin chosen secondary to past history of Enterococcus If significant decrease in renal function is noted with diuresis consider nephrology consultation Status: Acute Qualifiers: Chronic kidney disease stage: stage 4 (severe) Qualified Code(s): N18.4 - Chronic kidney disease, stage 4 (severe) (3) Anemia: Hemoglobin stable. Stool heme positive. Needs outpatient work-up. No significant clinical evidence for brisk GI bleed. Avoid anticoagulants Status: Acute Qualifiers: Anemia type: unspecified type Qualified Code(s): D64.9 - Anemia, unspecified (4) Atrial fibrillation with controlled ventricular rate: Currently on amiodarone, diltiazem, metoprolol. Still not excellent rate control. Cardiology has been consulted. Status: Acute (5) Diabetes: Sliding scale insulin Status: Acute (6) HTN (hypertension): Hold ARB Continue other antihypertensives Status: Acute Qualifiers: Hypertension type: essential hypertension Qualified Code(s): I10 - Essential (primary) hypertension Additional A&P Information Hypothyroidism. Continue home medication Elevated dimer. VQ scan ordered by emergency department indeterminate for pulmonary embolism. Note that recent venous duplex in August was negative for DVT as well. Full code SCDs DVT prophylaxis Attestations Medical Necessity Statement*: Needs continued hospitalization for diuresis secondary to congestive heart failure with adjustment of medications in this patient with chronic kidney disease. Coding Level of Care Code Acute Ends Down Checker for g Fwd Diagnoses CHF (congestive heart failure) I50.33 Heart failure type: diastolic Heart failure chronicity: acute on chronic CKD (chronic kidney disease) N18.4 Chronic kidney disease stage: stage 4 (severe) Anemia D64.9 Anemia type: unspecified type Atrial fibrillation with controlled ventricular rate I48.91 Diabetes E11.9 HTN (hypertension) I10 Hypertension type: essential hypertension
--- NOTE | 2020-09-27 09:18 | PC.NURSE ---
Contacted pharmacy re. furosemide q12 hr order that shoes next due as 2100 today. Confirmed that 0900 dose was charted against by previos shift and that a one time order needs to be placed in order to document this am dose. Dr. Rosales notified that this has occurred and an extra dose ws not given last night.
[2020-09-27] MEDS: FUROsemide 10 mg/mL SDV 10mL 60 MG IVP ×2 (09:23→20:15)
--- NOTE | 2020-09-27 10:28 | PM.PN ---
Subjective Subjective: Interval history: She feels better. UO 1700 ml. -1.4 L. Tele with ACali simmons with HR high 90's-120's. Medications: Reviewed: Yes Medication Review Details: Current Medications Acetaminophen (Acetaminophen 325 Mg Tablet) 650 mg PO Q6H PRN PRN Reason: Mild/Mod Pain Or Temp >/= 101 Hydrocodone Bitart/Acetaminophen (Hydrocodone-Acetaminophen 5-325 Mg Tablet) 1 tab PO Q6H PRN PRN Reason: pain Albuterol Sulfate (Albuterol 8 Gm Mdi) 1 puff INHALATION Q6H.RESPIRATORY PRN PRN Reason: Shortness Of Breath Amiodarone HCl (Amiodarone 200 Mg Tablet) 200 mg PO Q12H [facility] Aspirin (Aspirin 81 Mg Chew Tablet) 81 mg PO DAILY@18 [facility] Last Admin: 09/26/20 17:12 Dose: 81 mg Documented by: Atorvastatin Calcium (Atorvastatin 40 Mg Tablet) 20 mg PO BEDTIME [facility] Last Admin: 09/26/20 21:56 Dose: 20 mg Documented by: Cyanocobalamin (Cyanocobalamin 1,000 Mcg Tablet) 1,000 mcg PO DAILY [facility] Last Admin: 09/27/20 08:45 Dose: 1,000 mcg Documented by: Dextrose (Dextrose 50% Syringe 50 Ml) 25 ml IVP ONCE PRN; Protocol PRN Reason: hypoglycemia protocol Dextrose (Dextrose 50% Syringe 50 Ml) 50 ml IVP PRN PRN; Protocol PRN Reason: hypoglycemia protocol Diltiazem HCl (Diltiazem Er (24hr) 120 Mg Capsule) 120 mg PO DAILY@0800 [facility] Diltiazem HCl (Diltiazem Er (24hr) 300 Mg Capsule) 300 mg PO DAILY [facility] Folic Acid (Folic Acid 1 Mg Tablet) 1 mg PO DAILY [facility] Last Admin: 09/27/20 08:47 Dose: 1 mg Documented by: Furosemide (Furosemide 10 Mg/Ml Sdv 10ml) 60 mg IVP Q12H [facility] Last Admin: 09/26/20 21:39 Dose: 60 mg Documented by: Glucagon (Glucagon 1 Mg/Ml Inj 1 Ml) 1 mg IM ONCE PRN; Protocol PRN Reason: Adult Acute Hypoglycemia Prot. Dextrose (D5w) 500 mls @ 100 mls/hr IV ONCE PRN; Protocol PRN Reason: Adult Acute Hypoglycemia Prot Levofloxacin/Dextrose (Levaquin-D5w) 500 mg in 100 mls @ 100 mls/hr IV Q48H [facility]; Protocol Last Admin: 09/26/20 14:08 Dose: 100 mls/hr Documented by: Dopamine HCl/Dextrose (Intropin Drip) 400 mg in 250 mls @ 9.9 mls/hr IV CONT [facility]; Protocol Insulin Aspart (Insulin Aspart 100 Unit/1 Ml) 0 unit SUBCUT WM&BEDTIME [facility]; Protocol Last Admin: 09/27/20 09:07 Dose: 4 unit Documented by: Levothyroxine Sodium (Levothyroxine 150 Mcg Tablet) 75 mcg PO DAILY@08 [facility] Last Admin: 09/27/20 08:47 Dose: 75 mcg Documented by: Metoprolol Tartrate (Metoprolol Tartrate 50 Mg Tablet) 100 mg PO BID@0900,2100 [facility] Last Admin: 09/27/20 08:46 Dose: 100 mg Documented by: Ondansetron HCl (Ondansetron 2 Mg/Ml Sdv 2 Ml) 4 mg IVP Q6H PRN PRN Reason: NAUSEA AND VOMITING Pantoprazole Sodium (Pantoprazole Dr 40 Mg Tablet) 40 mg PO DAILY@08 [facility] Last Admin: 09/27/20 08:46 Dose: 40 mg Documented by: Fluticasone/Salmeterol (Fluticasone-Salmeterol 250-50 Diskus) 1 puff INHALATION BID.RESPIRATORY [facility] Last Admin: 09/26/20 19:44 Dose: 1 puff Documented by: Vitals/I&O/Wt Last Vital Signs Temp 97.6 F 09/27/20 08:00 Pulse 123 H 09/27/20 08:00 Resp 18 09/27/20 08:00 BP 132/95 09/27/20 08:00 Pulse Ox 90 09/27/20 08:00 09/26/20 09/27/20 09/27/20 22:59 06:59 14:59 Intake Total 120 / 240 120 / 120 Output Total 1150 / 1150 550 / 1700 Balance -1030 / -910 -550 / -1460 120 / 120 Physical Exam Narrative: EXAM NARRATIVE: GENERAL: Obese woman sitting in bed in no acute distress HEENT: Extraocular movement intact. Pupils equal round reactive to light. Mild pallor with no icterus. NECK: central trachea, elevated JVD, No carotid bruit. CARDIOVASCULAR SYSTEM: S1-S2 irregular variable intensity no murmur rubs or gallops. RESPIRATORY SYSTEM: Decreased breath sounds at bilateral bases. No wheezes, coarse rhonchi. No use of accessory muscles. ABDOMEN: Soft, nontender and nondistended. Normal bowel sounds present. EXTREMITIES: No cyanosis or clubbing. 2+ edema extending above knees. No signs of chronic venous insufficiency. 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 No focal neurological deficits. SKIN: Normal turgor and temperature. No breakdown, rash or nail changes noted. PSYCH: Normal insight and judgment. Urinary Catheter Management^: Corral: Cath Placed During This Visit: yes Reason for Continuing Indwelling Catheter: Accurate Measurement of Urinary Output in Critically Ill Patients Urinary Catheter Date of Insertion: 09/25/20 Urinary Catheter Time of Insertion: 21:00 Data : 09/27/20 03:05 09/27/20 03:05 A&P Assessment and plan (1) CHF (congestive heart failure): -Repeat echo with mild RV dysfunction and LV function normal. -Decompensated congestive heart failure. Continue Lasix 60 mg IV every 12 hours. -We will closely monitor intake and output and daily weight. -Given baseline chronic kidney disease, closely monitor renal function. -I will start on low dose dopamine. I will increase dose of amiodarone and cardizem but may have to stop dopamine depending on how her HR does. -Follow-up on BMP and repeat echocardiogram. - Status: Acute Qualifiers: Heart failure chronicity: acute on chronic Heart failure type: diastolic Qualified Code(s): I50.33 - Acute on chronic diastolic (congestive) heart failure (2) Atrial fibrillation with controlled ventricular rate: A. fib with intermittent high rates. - Not on anticoagulation given anemia requiring blood transfusions. -Continue with rate control strategy given inability to anticoagulate for now. -increase cardizem to 420 mg and amiodarone to 200 mg BID. Status: Acute (3) HTN (hypertension): Status: Acute Qualifiers: Hypertension type: essential hypertension Qualified Code(s): I10 - Essential (primary) hypertension (4) CKD (chronic kidney disease): Status: Acute Qualifiers: Chronic kidney disease stage: stage 4 (severe) Qualified Code(s): N18.4 - Chronic kidney disease, stage 4 (severe) (5) Anemia: Macrocytic anemia Status: Acute Qualifiers: Anemia type: unspecified type Qualified Code(s): D64.9 - Anemia, unspecified Additional A&P Information Hypokalemia Elevated troponin in setting of decompensated congestive heart failure and underlying kidney disease. Hypoalbuminemia Thank you for allowing me to participate in patient's care. Please feel free to call with questions or concerns. Attestations Medical Necessity Statement*: Needs hospital stay for decompensated CHF. Time Spent in Patient Care: 16 - 35 minutes (>than 50% of time spent in counselling and/or direct pt care on unit). 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
[2020-09-27 10:54] LABS: Glucose Point of Care 272 mg/dL (70-110)
[2020-09-27] MEDS: DOPamine drip 400 MG/250 ML PREMIX 9.9 MG IV (11:06)
--- NOTE | 2020-09-27 11:10 | PC.CHAP ---
Pastoral Care Encounter/Spiritual Assessment Type of Contact [] Declined handy man visit [] Patient/Family/Request visit [] Outpatient visit [] Follow-up visit [] Physician referral [] Code/Alert [X] Routine visit [] Staff referral [] Actively dying [] Patient sleeping [] Family support [] [] Out of room [] Palliative care [] [x] Receiving care in room [] Pre-surgical visit [] Trauma [] Long length of stay [] ICU visit [] Other: Relational/Emotional Strength [x] Patient feels connected with others/family/visitors/staff [] Distress [] Loneliness/isolation [] Abandonment Spirituality of Patient [x] Person of Betty [] Attends Taoism of their Betty [x] Believes in Prayer [] Reads Bible or Cheondoism materials [] There are Spiritual issues to be addressed Brand Inspector Interventions [x] Prayer [x] Active listening [x] Non-anxious presence [x] Spiritual/emotional support [] Crisis/trauma care [x] Spiritual counseling [] Bereavement support [] Provided bereavement packet [] Provided Bible/devotional materials [] Provided toy/stuffed animal, coloring book to patient or family member [] Provided Communion [] Anointing/Campus [] Salvation x] Completed spiritual assessment [] Other: Impact on Illness or Injury [] Angry [] Fearful [x] Anxious [] Often cries [] Exhaustion [] Unable to work [] Unable to attend presybeterian [] Unable to walk/stand [] Unable to read [] Unable to drive [] Unable to eat/drink [] Unable to sleep [] Unable to be with family [] Patient intubated [] Other: Summary She is sure about heart and what needs to done? Has a good atittude Time spent with patient 10 mins
[2020-09-27] MEDS: dilTIAZem ER (12HR) 60 mg Capsule PO (12:51)
[2020-09-27 16:35] LABS: Glucose Point of Care 115 mg/dL (70-110)
--- NOTE | 2020-09-27 19:18 | PC.NURSE ---
Received report from SERA Espinal. Patient resting in bed easily aroused. Corral in place draining appropriately. Obtained VS with patient in left lateral position. Dopamine drip running at 10.1ml/hr (3mcg/k/hr) Patient denies pain or needs at this time. No distress observed.
[2020-09-27 20:11] LABS: Glucose Point of Care 210 mg/dL (70-110)
[2020-09-27] MEDS: atorvastatin 40 mg Tablet 20 MG PO (20:15)
[2020-09-28] VITALS (13 sets, daily range): BP systolic 113–129; BP diastolic 61–90; PULSE 88–120; RESP 13–24; TEMP 36.2–36.7; O2SAT 83–995
[2020-09-28 03:17] LABS: Basophils # 0.1 10^3/uL (0.0-0.1); Basophils % 0.9 %; Eosinophils # 0.2 10^3/uL (0.0-0.8); Eosinophils % 1.9 %; Hematocrit 27.4 % (37.0-47.0); Hemoglobin 8.3 g/dL (11.5-15.3); Lymphocytes # 1.8 10^3/uL (0.8-4.8); Lymphocytes % 19.4 %; Mean Corpuscular HGB Conc 30.3 g/dL (30.0-36.0); Mean Corpuscular Hemoglobin 29.9 pg (28.0-34.0); Mean Corpuscular Volume 98.6 fL (81-99); Mean Platelet Volume 10.2 fL (7.4-10.4); Monocytes # 0.7 10^3/uL (0.2-0.9); Monocytes % 7.9 %; Neutrophils # 6.42 10^3/uL (1.8-7.7); Neutrophils % 68.2 %; Nucleated Red Blood Cells % 0 %; Platelet Count 239 10^3/cmm (130-400); Red Blood Count 2.78 10^6/uL (4.1-5.3); Red Cell Distribution Width 16.5 % (12.1-15.1); White Blood Count 9.4 10^3/uL (4.0-10.0)
[2020-09-28 03:41] LABS: Anion Gap 12.4 (5-19); Blood Urea Nitrogen 27 mg/dL (8-23); Calcium 9.1 mg/dL (8.5-10.5); Carbon Dioxide 33 mmol/L (22-29); Chloride 97 mmol/L (98-107); Glucose 149 mg/dL (65-115); Magnesium 1.9 mg/dL (1.7-2.3); Osmolality Calculated 296 mOsm/kg (285-295); Potassium 3.4 mmol/L (3.5-5.1); Sodium 139 mmol/L (136-145)
[2020-09-28 06:26] LABS: Glucose Point of Care 186 mg/dL (70-110)
--- NOTE | 2020-09-28 06:41 | PM.PN ---
Subjective Subjective: Interval history: She is doing better this morning. Medications: Reviewed: Yes Medication Review Details: Current Medications Acetaminophen (Acetaminophen 325 Mg Tablet) 650 mg PO Q6H PRN PRN Reason: Mild/Mod Pain Or Temp >/= 101 Hydrocodone Bitart/Acetaminophen (Hydrocodone-Acetaminophen 5-325 Mg Tablet) 1 tab PO Q6H PRN PRN Reason: pain Albuterol Sulfate (Albuterol 8 Gm Mdi) 1 puff INHALATION Q6H.RESPIRATORY PRN PRN Reason: Shortness Of Breath Amiodarone HCl (Amiodarone 200 Mg Tablet) 200 mg PO Q12H [facility] Last Admin: 09/27/20 20:14 Dose: 200 mg Documented by: Aspirin (Aspirin 81 Mg Ec Tablet) 81 mg PO DAILY [facility] Atorvastatin Calcium (Atorvastatin 40 Mg Tablet) 20 mg PO BEDTIME [facility] Last Admin: 09/27/20 20:15 Dose: 20 mg Documented by: Cyanocobalamin (Cyanocobalamin 1,000 Mcg Tablet) 1,000 mcg PO DAILY [facility] Last Admin: 09/27/20 08:45 Dose: 1,000 mcg Documented by: Dextrose (Dextrose 50% Syringe 50 Ml) 25 ml IVP ONCE PRN; Protocol PRN Reason: hypoglycemia protocol Dextrose (Dextrose 50% Syringe 50 Ml) 50 ml IVP PRN PRN; Protocol PRN Reason: hypoglycemia protocol Diltiazem HCl (Diltiazem Er (24hr) 120 Mg Capsule) 120 mg PO DAILY@0800 [facility] Diltiazem HCl (Diltiazem Er (24hr) 300 Mg Capsule) 300 mg PO DAILY [facility] Folic Acid (Folic Acid 1 Mg Tablet) 1 mg PO DAILY [facility] Last Admin: 09/27/20 08:47 Dose: 1 mg Documented by: Furosemide (Furosemide 10 Mg/Ml Sdv 10ml) 60 mg IVP Q12H [facility] Last Admin: 09/27/20 20:15 Dose: 60 mg Documented by: Glucagon (Glucagon 1 Mg/Ml Inj 1 Ml) 1 mg IM ONCE PRN; Protocol PRN Reason: Adult Acute Hypoglycemia Prot. Dextrose (D5w) 500 mls @ 100 mls/hr IV ONCE PRN; Protocol PRN Reason: Adult Acute Hypoglycemia Prot Levofloxacin/Dextrose (Levaquin-D5w) 500 mg in 100 mls @ 100 mls/hr IV Q48H [facility]; Protocol Last Admin: 09/26/20 14:08 Dose: 100 mls/hr Documented by: Dopamine HCl/Dextrose (Intropin Drip) 400 mg in 250 mls @ 9.9 mls/hr IV CONT [facility]; Protocol Last Admin: 09/27/20 11:06 Dose: 3 mcg/kg/min, 9.9 mls/hr Documented by: Insulin Aspart (Insulin Aspart 100 Unit/1 Ml) 0 unit SUBCUT WM&BEDTIME [facility]; Protocol Last Admin: 09/27/20 20:15 Dose: 6 unit Documented by: Levothyroxine Sodium (Levothyroxine 150 Mcg Tablet) 75 mcg PO DAILY@08 [facility] Last Admin: 09/27/20 08:47 Dose: 75 mcg Documented by: Metoprolol Tartrate (Metoprolol Tartrate 50 Mg Tablet) 100 mg PO BID@0900,2100 [facility] Last Admin: 09/27/20 20:14 Dose: 100 mg Documented by: Ondansetron HCl (Ondansetron 2 Mg/Ml Sdv 2 Ml) 4 mg IVP Q6H PRN PRN Reason: NAUSEA AND VOMITING Pantoprazole Sodium (Pantoprazole Dr 40 Mg Tablet) 40 mg PO DAILY@08 [facility] Last Admin: 09/27/20 08:46 Dose: 40 mg Documented by: Fluticasone/Salmeterol (Fluticasone-Salmeterol 250-50 Diskus) 1 puff INHALATION BID.RESPIRATORY [facility] Last Admin: 09/27/20 19:23 Dose: 1 puff Documented by: Vitals/I&O/Wt Last Vital Signs Temp 98.1 F 09/28/20 04:00 Pulse 105 H 09/28/20 06:00 Resp 19 H 09/28/20 04:00 BP 129/78 09/28/20 04:00 Pulse Ox 91 09/28/20 04:00 09/27/20 09/27/20 09/28/20 14:59 22:59 06:59 Intake Total 540 / 540 Output Total 960 / 960 750 / 1710 Balance 540 / 540 -960 / -420 -750 / -1170 Physical Exam Narrative: EXAM NARRATIVE: Obese woman sitting in bed in no acute distress HEENT: Extraocular movement intact. Pupils equal round reactive to light. Mild pallor with no icterus. NECK: central trachea, elevated JVD, No carotid bruit. CARDIOVASCULAR SYSTEM: S1-S2 irregular, tachycardia +, of variable intensity no murmur rubs or gallops. RESPIRATORY SYSTEM: Decreased breath sounds at bilateral bases. No wheezes, coarse rhonchi. No use of accessory muscles. ABDOMEN: Soft, nontender and nondistended. Normal bowel sounds present. EXTREMITIES: No cyanosis or clubbing. 1-2+ edema extending above knees. No signs of chronic venous insufficiency. 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 No focal neurological deficits. SKIN: Normal turgor and temperature. No breakdown, rash or nail changes noted. PSYCH: Normal insight and judgment. Urinary Catheter Management^: Corral: Cath Placed During This Visit: yes Reason for Continuing Indwelling Catheter: Accurate Measurement of Urinary Output in Critically Ill Patients Urinary Catheter Date of Insertion: 09/25/20 Urinary Catheter Time of Insertion: 21:00 Data : 09/28/20 02:37 09/28/20 02:37 Micro: Microbiology 09/26/20 11:15 Urine Culture - Preliminary Urine,Clean Catch Enterococcus species A&P Assessment and plan (1) CHF (congestive heart failure): -Repeat echo with mild RV dysfunction and LV function normal. -Decompensated congestive heart failure. Continue Lasix 60 mg IV every 12 hours. -We will closely monitor intake and output and daily weight. -Given baseline chronic kidney disease, closely monitor renal function. -I will start on low dose dopamine. I will increase dose of amiodarone and cardizem but may have to stop dopamine depending on how her HR does. Status: Acute Qualifiers: Heart failure chronicity: acute on chronic Heart failure type: diastolic Qualified Code(s): I50.33 - Acute on chronic diastolic (congestive) heart failure (2) Atrial fibrillation with controlled ventricular rate: A. fib with intermittent high rates. - Not on anticoagulation given anemia requiring blood transfusions. -Continue with rate control strategy given inability to anticoagulate for now. -increase cardizem to 420 mg and amiodarone to 200 mg BID. Status: Acute (3) HTN (hypertension): Status: Acute Qualifiers: Hypertension type: essential hypertension Qualified Code(s): I10 - Essential (primary) hypertension (4) CKD (chronic kidney disease): Status: Acute Qualifiers: Chronic kidney disease stage: stage 4 (severe) Qualified Code(s): N18.4 - Chronic kidney disease, stage 4 (severe) (5) Anemia: Macrocytic anemia Status: Acute Qualifiers: Anemia type: unspecified type Qualified Code(s): D64.9 - Anemia, unspecified Additional A&P Information Hypokalemia Elevated troponin in setting of decompensated congestive heart failure and underlying kidney disease. Hypoalbuminemia Thank you for allowing me to participate in patient's care. Please feel free to call with questions or concerns. Attestations Medical Necessity Statement*: Needs hospital stay for decompensated CHF. Time Spent in Patient Care: 16 - 35 minutes (>than 50% of time spent in counselling and/or direct pt care on unit). Coding Level of Care Code Acute Magnetizer for [employer] [facility] [employer] Diagnoses CHF (congestive heart failure) I50.33 Heart failure chronicity: acute on chronic Heart failure type: diastolic Atrial fibrillation with controlled ventricular rate I48.91 HTN (hypertension) I10 Hypertension type: essential hypertension CKD (chronic kidney disease) N18.4 Chronic kidney disease stage: stage 4 (severe) Anemia D64.9 Anemia type: unspecified type
[2020-09-28] MEDS: potassium chloride ER 20 mEq Tablet 40 MEQ PO (08:00)
[2020-09-28] MEDS: dilTIAZem ER (24HR) 300 mg Capsule PO (09:17)
[2020-09-28] MEDS: levothyroxine 150 mcg Tablet 75 MCG PO (09:17)
[2020-09-28] MEDS: aspirin 81 mg EC Tablet PO (09:17)
[2020-09-28] MEDS: pantoprazole DR 40 mg Tablet PO (09:18)
[2020-09-28] MEDS: cyanocobalamin 1,000 mcg Tablet 1000 MCG PO (09:18)
[2020-09-28] MEDS: FUROsemide 10 mg/mL SDV 10mL 60 MG IVP ×2 (09:19→20:22)
[2020-09-28] MEDS: amiodarone 200 mg Tablet PO ×2 (09:19→20:22)
[2020-09-28] MEDS: folic acid 1 mg Tablet PO (09:19)
[2020-09-28] MEDS: dilTIAZem ER (24HR) 120 mg Capsule PO (09:19)
[2020-09-28] MEDS: metoprolol tartrate 50 mg Tablet 100 MG PO ×2 (09:30→20:22)
--- NOTE | 2020-09-28 09:30 | DCPLANNER ---
IMM completed 09/28/20 @ 0900. Copy of rights given to pt.
--- NOTE | 2020-09-28 10:44 | P.PN_ITS ---
Subjective Subjective: Interval history: Luiza reports she is feeling better. She is less short of breath. No chest pain. Medications: Reviewed: Yes Vitals/I&O/Wt Last Vital Signs Temp 98.1 F 09/28/20 04:00 Pulse 120 H 09/28/20 09:27 Resp 22 H 09/28/20 09:27 BP 129/78 09/28/20 04:00 Pulse Ox 83 L 09/28/20 09:27 09/27/20 09/28/20 09/28/20 22:59 06:59 14:59 Output Total 960 / 960 750 / 1710 Balance -960 / -420 -750 / -1170 Physical Exam Narrative: EXAM NARRATIVE: General exam no apparent distress Neck is supple no lymphadenopathy or thyromegaly Cardiovascular irregular, irregular with no murmur. Lungs crackles bilaterally. No wheezing. Abdomen is soft nontender with positive bowel sounds. No obvious organomegaly Extremities no cyanosis or clubbing. 1+ edema is noted Urinary Catheter Management^: Corral: Cath Placed During This Visit: yes Reason for Continuing Indwelling Catheter: Accurate Measurement of Urinary Output in Critically Ill Patients Urinary Catheter Date of Insertion: 09/25/20 Urinary Catheter Time of Insertion: 21:00 Data : 09/28/20 02:37 09/28/20 02:37 Micro: Microbiology 09/26/20 11:15 Urine Culture - Preliminary Urine,Clean Catch Enterococcus species A&P Assessment and plan (1) CHF (congestive heart failure): Appreciate cardiology consultation Currently on Lasix 60 mg IV every 12 hours Low-dose dopamine was added by cardiology. Creatinine has improved, and patient has diuresed 1290 cc over the last 24 hours Continue Corral catheter for accurate ins and outs Holding ARB secondary to renal function Limited echo demonstrated preserved EF, normal RV size Status: Acute Qualifiers: Heart failure type: diastolic Heart failure chronicity: acute on chronic Qualified Code(s): I50.33 - Acute on chronic diastolic (congestive) heart failure (2) CKD (chronic kidney disease): Close follow-up of renal function Avoid all anti-inflammatories Renal ultrasound 6 weeks ago no evidence of obstruction Urinalysis indicated possible UTI. IV antibiotics initiated. Levaquin chosen secondary to past history of Enterococcus in the urine. It appears she is growing this organism again. If significant decrease in renal function is noted with diuresis consider nephrology consultation Status: Acute Qualifiers: Chronic kidney disease stage: stage 4 (severe) Qualified Code(s): N18.4 - Chronic kidney disease, stage 4 (severe) (3) Anemia: Hemoglobin stable. Stool heme positive. Needs outpatient work-up. No significant clinical evidence for brisk GI bleed. Avoid anticoagulants Status: Acute Qualifiers: Anemia type: unspecified type Qualified Code(s): D64.9 - Anemia, unspecified (4) Atrial fibrillation with controlled ventricular rate: Currently on amiodarone, diltiazem, metoprolol. Appreciate cardiology consultation Amiodarone and diltiazem dosing has been increased. Metoprolol remains at 100 mg twice daily. Status: Acute (5) Diabetes: Sliding scale insulin Status: Acute (6) HTN (hypertension): Hold ARB Continue other antihypertensives Status: Acute Qualifiers: Hypertension type: essential hypertension Qualified Code(s): I10 - Essential (primary) hypertension Additional A&P Information Hypothyroidism. Continue home medication Elevated dimer. VQ scan ordered by emergency department indeterminate for pulmonary embolism. Note that recent venous duplex in August was negative for DVT as well. Full code SCDs DVT prophylaxis Attestations Medical Necessity Statement*: Needs continued hospitalization for further diuresis secondary to acute diastolic heart failure. Coding Level of Care Code Acute Adjunct Philosophy Faculty for [facility] Fwd Diagnoses CHF (congestive heart failure) I50.33 Heart failure type: diastolic Heart failure chronicity: acute on chronic CKD (chronic kidney disease) N18.4 Chronic kidney disease stage: stage 4 (severe) Anemia D64.9 Anemia type: unspecified type Atrial fibrillation with controlled ventricular rate I48.91 Diabetes E11.9 HTN (hypertension) I10 Hypertension type: essential hypertension
[2020-09-28] MEDS: DOPamine drip 400 MG/250 ML PREMIX 9.9 MG IV (10:54)
[2020-09-28] MEDS: docusate sodium 100 mg Capsule 200 MG PO (10:56)
[2020-09-28 12:26] LABS: Glucose Point of Care 262 mg/dL (70-110)
[2020-09-28] MEDS: levofloxacin-dextrose 5 % 500 MG/100 ML PREMIX 100 MG IV (14:15)
[2020-09-28 16:50] LABS: Glucose Point of Care 159 mg/dL (70-110)
--- NOTE | 2020-09-28 19:09 | PC.NURSE ---
Received report from SERA Espinal. Patient resting in bed talking on phone. Discussed stool softener. Offered prune juice. Patient stated, that is not a good night time remedy. We will save that for tomorrow. Patient denies pain or needs. No distress observed. Corral remains in place. Assessment completed as documented.
[2020-09-28 19:51] LABS: Glucose Point of Care 112 mg/dL (70-110)
[2020-09-28] MEDS: atorvastatin 40 mg Tablet 20 MG PO (20:22)
--- NOTE | 2020-09-28 20:39 | PC.NURSE ---
Patient concerned about blood sugar this evening. Performed accucheck x2. First was 112, provided ice cream per patient request. Second was 105, provided orange juice with 2 pkts of sugar added again per patient request. Assured patient that she was going to be checked on frequently. Patient expressed thanks. Patient stated, I just have not had much of an appetite today. Instructed patient to inform RN if feeling symptoms of low blood sugar. Patient verbalized complete understanding.
[2020-09-28 20:42] LABS: Glucose Point of Care 105 mg/dL (70-110)
[2020-09-28 22:24] LABS: Glucose Point of Care 142 mg/dL (70-110)
[2020-09-28 23:18] LABS: Glucose Point of Care 161 mg/dL (70-110)
[2020-09-29] VITALS (12 sets, daily range): BP systolic 107–142; BP diastolic 59–93; PULSE 85–121; RESP 12–94; TEMP 36.1–37.1; O2SAT 88–97
[2020-09-29 01:05] LABS: Glucose Point of Care 169 mg/dL (70-110)
[2020-09-29 06:09] LABS: Anion Gap 15.7 (5-19); Blood Urea Nitrogen 30 mg/dL (8-23); Calcium 9.3 mg/dL (8.5-10.5); Carbon Dioxide 31 mmol/L (22-29); Chloride 93 mmol/L (98-107); Glucose 237 mg/dL (65-115); Osmolality Calculated 294 mOsm/kg (285-295); Potassium 4.7 mmol/L (3.5-5.1); Sodium 135 mmol/L (136-145)
[2020-09-29 06:37] LABS: Glucose Point of Care 299 mg/dL (70-110)
[2020-09-29] MEDS: dilTIAZem ER (24HR) 120 mg Capsule PO (08:18)
[2020-09-29] MEDS: pantoprazole DR 40 mg Tablet PO (08:18)
[2020-09-29] MEDS: levothyroxine 150 mcg Tablet 75 MCG PO (08:18)
[2020-09-29] MEDS: FUROsemide 10 mg/mL SDV 10mL 60 MG IVP ×2 (08:18→21:03)
[2020-09-29 08:43] LABS: Estmated Average Glucose 140; Hemoglobin A1C 6.5 % (4.0-6.0)
--- NOTE | 2020-09-29 09:17 | P.PN_ITS ---
Subjective Subjective: Interval history: I do not believe urine output has been well documented however charted urine output was 730. Patient states she does not feel good today. She is more short of breath and feels that her abdomen is more full today. Complains of nausea on one occasion but no vomiting. -Continues to be in A. fib with intermittent RVR's on telemetry. Medications: Reviewed: Yes Medication Review Details: Current Medications Acetaminophen (Acetaminophen 325 Mg Tablet) 650 mg PO Q6H PRN PRN Reason: Mild/Mod Pain Or Temp >/= 101 Hydrocodone Bitart/Acetaminophen (Hydrocodone-Acetaminophen 5-325 Mg Tablet) 1 tab PO Q6H PRN PRN Reason: pain Albuterol Sulfate (Albuterol 8 Gm Mdi) 1 puff INHALATION Q6H.RESPIRATORY PRN PRN Reason: Shortness Of Breath Amiodarone HCl (Amiodarone 200 Mg Tablet) 200 mg PO Q12H [facility] Last Admin: 09/28/20 20:22 Dose: 200 mg Documented by: Aspirin (Aspirin 81 Mg Ec Tablet) 81 mg PO DAILY [facility] Last Admin: 09/28/20 09:17 Dose: 81 mg Documented by: Atorvastatin Calcium (Atorvastatin 40 Mg Tablet) 20 mg PO BEDTIME [facility] Last Admin: 09/28/20 20:22 Dose: 20 mg Documented by: Cyanocobalamin (Cyanocobalamin 1,000 Mcg Tablet) 1,000 mcg PO DAILY [facility] Last Admin: 09/28/20 09:18 Dose: 1,000 mcg Documented by: Dextrose (Dextrose 50% Syringe 50 Ml) 25 ml IVP ONCE PRN; Protocol PRN Reason: hypoglycemia protocol Dextrose (Dextrose 50% Syringe 50 Ml) 50 ml IVP PRN PRN; Protocol PRN Reason: hypoglycemia protocol Diltiazem HCl (Diltiazem Er (24hr) 120 Mg Capsule) 120 mg PO DAILY@0800 [facility] Last Admin: 09/29/20 08:18 Dose: 120 mg Documented by: Diltiazem HCl (Diltiazem Er (24hr) 300 Mg Capsule) 300 mg PO DAILY [facility] Last Admin: 09/28/20 09:17 Dose: 300 mg Documented by: Docusate Sodium (Docusate Sodium 100 Mg Capsule) 200 mg PO DAILY PRN PRN Reason: CONSTIPATION Last Admin: 09/28/20 10:56 Dose: 200 mg Documented by: Folic Acid (Folic Acid 1 Mg Tablet) 1 mg PO DAILY [facility] Last Admin: 09/28/20 09:19 Dose: 1 mg Documented by: Furosemide (Furosemide 10 Mg/Ml Sdv 10ml) 60 mg IVP Q12H [facility] Last Admin: 09/29/20 08:18 Dose: 60 mg Documented by: Glucagon (Glucagon 1 Mg/Ml Inj 1 Ml) 1 mg IM ONCE PRN; Protocol PRN Reason: Adult Acute Hypoglycemia Prot. Dextrose (D5w) 500 mls @ 100 mls/hr IV ONCE PRN; Protocol PRN Reason: Adult Acute Hypoglycemia Prot Levofloxacin/Dextrose (Levaquin-D5w) 500 mg in 100 mls @ 100 mls/hr IV Q48H [facility]; Protocol Last Admin: 09/28/20 14:15 Dose: 100 mls/hr Documented by: Dopamine HCl/Dextrose (Intropin Drip) 400 mg in 250 mls @ 9.9 mls/hr IV CONT [facility]; Protocol Last Admin: 09/28/20 10:54 Dose: 3 mcg/kg/min, 9.9 mls/hr Documented by: Insulin Aspart (Insulin Aspart 100 Unit/1 Ml) 0 unit SUBCUT WM&BEDTIME [facility]; Protocol Last Admin: 09/29/20 08:19 Dose: 10 unit Documented by: Insulin Glargine (Insulin Glargine 100 Units/1 Ml) 15 unit SUBCUT BEDTIME@20 [facility] Levothyroxine Sodium (Levothyroxine 150 Mcg Tablet) 75 mcg PO DAILY@08 [facility] Last Admin: 09/29/20 08:18 Dose: 75 mcg Documented by: Metoprolol Tartrate (Metoprolol Tartrate 50 Mg Tablet) 100 mg PO BID@0900,2100 [facility] Last Admin: 09/28/20 20:22 Dose: 100 mg Documented by: Ondansetron HCl (Ondansetron 2 Mg/Ml Sdv 2 Ml) 4 mg IVP Q6H PRN PRN Reason: NAUSEA AND VOMITING Pantoprazole Sodium (Pantoprazole Dr 40 Mg Tablet) 40 mg PO DAILY@08 [facility] Last Admin: 09/29/20 08:18 Dose: 40 mg Documented by: Fluticasone/Salmeterol (Fluticasone-Salmeterol 250-50 Diskus) 1 puff INHALATION BID.RESPIRATORY [facility] Last Admin: 09/29/20 07:58 Dose: 1 puff Documented by: Vitals/I&O/Wt Last Vital Signs Temp 97.0 F L 09/29/20 07:34 Pulse 118 H 09/29/20 08:01 Resp 22 H 09/29/20 07:59 BP 142/93 09/29/20 07:34 Pulse Ox 91 09/29/20 07:59 09/28/20 09/29/20 09/29/20 22:59 06:59 14:59 Intake Total 120 / 120 Output Total 380 / 380 350 / 730 Balance -380 / -144.38 -350 / -494.38 120 / 120 Physical Exam Narrative: EXAM NARRATIVE: Obese woman sitting in bed in no acute distress HEENT: Extraocular movement intact. Pupils equal round reactive to light. Mild pallor with no icterus. NECK: central trachea, elevated JVD, No carotid bruit. CARDIOVASCULAR SYSTEM: S1-S2 irregular, tachycardia +, of variable intensity no murmur rubs or gallops. RESPIRATORY SYSTEM: Decreased breath sounds at bilateral bases. No wheezes, coarse rhonchi. No use of accessory muscles. ABDOMEN: Soft, nontender and nondistended. Normal bowel sounds present. EXTREMITIES: No cyanosis or clubbing. 2+ edema extending above knees. No signs of chronic venous insufficiency. DOCUMENT PREPARATION SPECIALIST: Patient is alert oriented ?3. No focal neurological deficits. SKIN: Normal turgor and temperature. No breakdown, rash or nail changes noted. PSYCH: Normal insight and judgment. Urinary Catheter Management^: [place]: Cath Placed During This Visit: yes Reason for Continuing Indwelling Catheter: Accurate Measurement of Urinary Output in Critically Ill Patients Urinary Catheter Date of Insertion: 09/25/20 Urinary Catheter Time of Insertion: 21:00 Data : 09/28/20 02:37 09/29/20 05:08 Micro: Microbiology 09/26/20 11:15 Urine Culture - Final Urine,Clean Catch Enterococcus faecalis A&P Assessment and plan (1) CHF (congestive heart failure): -Repeat echo with mild RV dysfunction and LV function normal. -Decompensated congestive heart failure. Continue Lasix 60 mg IV every 12 hours. -I will add metolazone 5 mg p.o. daily. -We will closely monitor intake and output and daily weight. -Given baseline chronic kidney disease, closely monitor renal function. -I will increased dose of dopamine to 5 mcg/kg/min. -Continue amiodarone and Cardizem at present dose but may have to stop dopamine depending on how her HR does. Status: Acute Qualifiers: Heart failure chronicity: acute on chronic Heart failure type: diastolic Qualified Code(s): I50.33 - Acute on chronic diastolic (congestive) heart failure (2) Atrial fibrillation with controlled ventricular rate: A. fib with intermittent high rates. - Not on anticoagulation given anemia requiring blood transfusions. -Continue with rate control strategy given inability to anticoagulate for now. Continue cardizem to 420 mg and amiodarone to 200 mg BID. Status: Acute (3) HTN (hypertension): Status: Acute Qualifiers: Hypertension type: essential hypertension Qualified Code(s): I10 - Essential (primary) hypertension (4) CKD (chronic kidney disease): Status: Acute Qualifiers: Chronic kidney disease stage: stage 4 (severe) Qualified Code(s): N18.4 - Chronic kidney disease, stage 4 (severe) (5) Anemia: Macrocytic anemia Status: Acute Qualifiers: Anemia type: unspecified type Qualified Code(s): D64.9 - Anemia, unspecified Additional A&P Information Hypokalemia Elevated troponin in setting of decompensated congestive heart failure and underlying kidney disease. Hypoalbuminemia: Receiving a bag of albumin today. Thank you for allowing me to participate in patient's care. Please feel free to call with questions or concerns. Attestations Medical Necessity Statement*: Needs hospital stay for decompensated CHF. Time Spent in Patient Care: 16 - 35 minutes (>than 50% of time spent in counselling and/or direct pt care on unit) . Coding Level of Care Code Established Pt Acute Creche Attendant for Maria G Grissom Patient Type Established History Detailed Exam Detailed Medical Decision Making High Complexity Diagnoses CHF (congestive heart failure) I50.33 Heart failure chronicity: acute on chronic Heart failure type: diastolic Atrial fibrillation with controlled ventricular rate I48.91 HTN (hypertension) I10 Hypertension type: essential hypertension CKD (chronic kidney disease) N18.4 Chronic kidney disease stage: stage 4 (severe) Anemia D64.9 Anemia type: unspecified type Time Spent (min) 30
[2020-09-29] MEDS: metoprolol tartrate 50 mg Tablet 100 MG PO ×2 (10:18→21:00)
[2020-09-29] MEDS: cyanocobalamin 1,000 mcg Tablet 1000 MCG PO (10:19)
[2020-09-29] MEDS: aspirin 81 mg EC Tablet PO (10:19)
[2020-09-29] MEDS: dilTIAZem ER (24HR) 300 mg Capsule PO (10:19)
[2020-09-29] MEDS: amiodarone 200 mg Tablet PO ×2 (10:19→21:02)
[2020-09-29] MEDS: folic acid 1 mg Tablet PO (10:19)
--- NOTE | 2020-09-29 10:23 | PC.NURSE ---
ADMINISTERED PATIENT'S 0900 DOSE OF LASIX THIS MORNING AT 0818. NURSE DOCUMENTED NOT GIVEN DUE TO A DOSE BEING MISSED ON 09/27/20 AND THE SCHEDULE ON THE NOV BEING INCORRECT.
[2020-09-29] MEDS: DOPamine drip 400 MG/250 ML PREMIX 9.9 MG IV (11:21)
--- NOTE | 2020-09-29 11:23 | XRR_ITS ---
PROCEDURE INFORMATION: Exam: XR Chest, 1 View Exam date and time: 09/29/2020 12:35 PM Age: 80 years old Clinical indication: Shortness of breath; Additional info: Hypoxemia TECHNIQUE: Imaging protocol: XR of the chest Views: 1 view. COMPARISON: CR XR chest 1V portable [id number] 09/25/2020 5:42 AM FINDINGS: Lungs: Interstitial and asymmetric airspace disease. Pleural space: Mild pleural thickening. Heart/Mediastinum: Cardiac silhouette upper limits of normal in size. Bones/joints: Osteopenia and degenerative change When correlating with the previous study, no significant interval changes are present. XR/XR chest 1V portable [id number] IMPRESSION: Interstitial and asymmetric airspace disease.
--- NOTE | 2020-09-29 11:33 | P.PN_ITS ---
Subjective Subjective: Interval history: This is a 80-year-old female who presented to the hospital with worsening shortness of breath and edema. She recently was hospitalized for Covid and heart failure. Discharged September 11. Covid was tested positive in July. She has been on 3 L of oxygen at home. In the ED patient was noted to be increasingly hypoxic. She is admitted for decompensated heart failure. She reports feeling more short of breath today. Her appetite reported as poor. denies fever. Medications: Reviewed: Yes Vitals/I&O/Wt Last Vital Signs Temp 98.7 F 09/29/20 10:53 Pulse 115 H 09/29/20 10:53 Resp 26 H 09/29/20 10:53 BP 141/75 09/29/20 10:53 Pulse Ox 97 09/29/20 10:53 09/28/20 09/29/20 09/29/20 22:59 06:59 14:59 Intake Total 362.055 / 362.055 Output Total 380 / 380 350 / 730 Balance -380 / -144.38 -350 / -494.38 362.055 / 362.055 Physical Exam Const: COMMON NORMALS: no acute distress and patient oriented x3 GENERAL APPEARANCE: cooperative NUTRITIONAL APPEARANCE: obese Resp: COMMON NORMALS: normal respiratory effort and No use of accessory muscles Cardio: COMMON NORMALS: regular rhythm RATE: tachycardic RHYTHM: regular rhythm GI: COMMON NORMALS: Soft to palpation and non-tender PALPATION: Yes Soft to palpation Extremity: OTHER: edema Neuro: COMMON NORMALS: patient oriented x3 and moves all extremities Skin: COMMON NORMALS: no rashes or lesions noted GENERAL SKIN EXAM: no rashes or lesions noted Urinary Catheter Management^: [place]: Cath Placed During This Visit: yes Reason for Continuing Indwelling Catheter: Accurate Measurement of Urinary Output in Critically Ill Patients Urinary Catheter Date of Insertion: 09/25/20 Urinary Catheter Time of Insertion: 21:00 Data : 09/28/20 02:37 09/29/20 05:08 Micro: Microbiology 09/26/20 11:15 Urine Culture - Final Urine,Clean Catch Enterococcus faecalis A&P Assessment and plan (1) ANSON (acute kidney injury): Status: Acute (2) Acute exacerbation of CHF (congestive heart failure): Status: Acute (3) Anemia: Status: Acute Qualifiers: Anemia type: unspecified type Qualified Code(s): D64.9 - Anemia, unspecified (4) Diabetes: Status: Acute (5) HTN (hypertension): Status: Acute Qualifiers: Hypertension type: essential hypertension Qualified Code(s): I10 - E ssential (primary) hypertension (6) Hypoxemia: Status: Acute Additional A&P Information This is a 80-year-old female with history of congestive heart failure recently treated for Covid pneumonia presented to hospital with worsening shortness of breath. Acute CHF exacerbation -Continue diuretics currently on Lasix 60 twice daily -Monitor I's and O's -Chest x-ray, one-time dose of albumin -ECHO pending -dopamine added Hypoxemia -on 3L at home. currently >4L -repeat CXR ANSON -Monitor I's and O's, avoid NSAIDs AFIB with RVR -amiodarone,BB and diltiazem -tachy this AM DM -fsbs,ssi, lantus 15u HTN -stable elevated d dimer -VQ indeterminate, duplex neg for DVT in Aug Hypothyroidism -tsh stable in July -on replacement UTI -enterococcus -on levaquin DVT:SCD GI: PPI Attestations Medical Necessity Statement*: Luiza Cooper's hospital stay will require greater than 2 midnights for chf Coding Level of Care Code Acute Online Media Buyer for g Fwd Exam Detailed Diagnoses ANSON (acute kidney injury) N17.9 Acute exacerbation of CHF (congestive heart failure) I50.9 Anemia D64.9 Anemia type: unspecified type Diabetes E11.9 HTN (hypertension) I10 Hypertension type: essential hypertension Hypoxemia R09.02
[2020-09-29 12:53] LABS: Procalcitonin 0.21 ng/mL (0-0.5)
[2020-09-29] MEDS: albumin 12.5 GM/50 ML VIAL IV (13:29)
[2020-09-29 13:35] LABS: Glucose Point of Care 276 mg/dL (70-110)
[2020-09-29 16:15] LABS: Glucose Point of Care 197 mg/dL (70-110)
[2020-09-29] MEDS: docusate sodium 100 mg Capsule 200 MG PO (16:57)
[2020-09-29 20:19] LABS: Glucose Point of Care 137 mg/dL (70-110)
[2020-09-29] MEDS: HYDROcodone-acetaminophen 5-325 mg Tablet 1 TAB PO (21:02)
[2020-09-29] MEDS: atorvastatin 40 mg Tablet 20 MG PO (21:02)
[2020-09-29] MEDS: metOLazone 5 MG Tablet PO (21:03)
[2020-09-29 21:44] LABS: Glucose Point of Care 122 mg/dL (70-110)
[2020-09-30] VITALS (11 sets, daily range): BP systolic 112–154; BP diastolic 63–81; PULSE 93–130; RESP 15–22; TEMP 36.4–37.2; O2SAT 91–96
[2020-09-30 00:13] LABS: Glucose Point of Care 135 mg/dL (70-110)
[2020-09-30] MEDS: DOPamine drip 400 MG/250 ML PREMIX 16.5 MG IV (04:58)
[2020-09-30 05:14] LABS: Basophils # 0.1 10^3/uL (0.0-0.1); Basophils % 0.8 %; Eosinophils # 0.2 10^3/uL (0.0-0.8); Eosinophils % 1.4 %; Hematocrit 28.2 % (37.0-47.0); Hemoglobin 8.7 g/dL (11.5-15.3); Lymphocytes # 2.2 10^3/uL (0.8-4.8); Lymphocytes % 16.9 %; Mean Corpuscular HGB Conc 30.9 g/dL (30.0-36.0); Mean Corpuscular Hemoglobin 29.9 pg (28.0-34.0); Mean Corpuscular Volume 96.9 fL (81-99); Mean Platelet Volume 9.9 fL (7.4-10.4); Monocytes # 0.8 10^3/uL (0.2-0.9); Monocytes % 6.3 %; Neutrophils # 9.34 10^3/uL (1.8-7.7); Neutrophils % 73.3 %; Nucleated Red Blood Cells % 0 %; Platelet Count 250 10^3/cmm (130-400); Red Blood Count 2.91 10^6/uL (4.1-5.3); Red Cell Distribution Width 16.2 % (12.1-15.1); White Blood Count 12.7 10^3/uL (4.0-10.0)
[2020-09-30 05:31] LABS: Alanine Aminotransferase 11 U/L (0-33); Albumin Level 3.1 g/dL (3.5-5.2); Alkaline Phosphatase 90 IU/L (35-105); Anion Gap 17.1 (5-19); Aspartate Amino Transferase 10 U/L (0-32); Blood Urea Nitrogen 29 mg/dL (8-23); Calcium 8.9 mg/dL (8.5-10.5); Carbon Dioxide 30 mmol/L (22-29); Chloride 93 mmol/L (98-107); Globulin 3.1 g/dL (1.3-4.6); Glucose 191 mg/dL (65-115); Osmolality Calculated 293 mOsm/kg (285-295); Potassium 4.1 mmol/L (3.5-5.1); Sodium 136 mmol/L (136-145); Total Bilirubin 0.7 mg/dL (0.15-1.2); Total Protein 6.2 g/dL (6.6-8.7)
[2020-09-30 06:43] LABS: Glucose Point of Care 247 mg/dL (70-110)
[2020-09-30] MEDS: levothyroxine 150 mcg Tablet 75 MCG PO (07:42)
[2020-09-30] MEDS: dilTIAZem ER (24HR) 120 mg Capsule PO (07:42)
[2020-09-30] MEDS: pantoprazole DR 40 mg Tablet PO (07:42)
--- NOTE | 2020-09-30 08:12 | P.PN_ITS ---
Subjective Subjective: Interval history: UO 1450 ml, LOS -4L, 24 hr -250 ml. She feels better today. States her stomach feels less tight and her appetite has improved. Denies any nausea. No events on telemetry Medications: Reviewed: Yes Medication Review Details: Current Medications Acetaminophen (Acetaminophen 325 Mg Tablet) 650 mg PO Q6H PRN PRN Reason: Mild/Mod Pain Or Temp >/= 101 Hydrocodone Bitart/Acetaminophen (Hydrocodone-Acetaminophen 5-325 Mg Tablet) 1 tab PO Q6H PRN PRN Reason: pain Last Admin: 09/29/20 21:02 Dose: 1 tab Documented by: Albuterol Sulfate (Albuterol 8 Gm Mdi) 1 puff INHALATION Q6H.RESPIRATORY PRN PRN Reason: Shortness Of Breath Amiodarone HCl (Amiodarone 200 Mg Tablet) 200 mg PO Q12H [facility] Last Admin: 09/29/20 21:02 Dose: 200 mg Documented by: Aspirin (Aspirin 81 Mg Ec Tablet) 81 mg PO DAILY [facility] Last Admin: 09/29/20 10:19 Dose: 81 mg Documented by: Atorvastatin Calcium (Atorvastatin 40 Mg Tablet) 20 mg PO BEDTIME [facility] Last Admin: 09/29/20 21:02 Dose: 20 mg Documented by: Cyanocobalamin (Cyanocobalamin 1,000 Mcg Tablet) 1,000 mcg PO DAILY [facility] Last Admin: 09/29/20 10:19 Dose: 1,000 mcg Documented by: Dextrose (Dextrose 50% Syringe 50 Ml) 25 ml IVP ONCE PRN; Protocol PRN Reason: hypoglycemia protocol Dextrose (Dextrose 50% Syringe 50 Ml) 50 ml IVP PRN PRN; Protocol PRN Reason: hypoglycemia protocol Diltiazem HCl (Diltiazem Er (24hr) 120 Mg Capsule) 120 mg PO DAILY@0800 [facility] Last Admin: 09/30/20 07:42 Dose: 120 mg Documented by: Diltiazem HCl (Diltiazem Er (24hr) 300 Mg Capsule) 300 mg PO DAILY [facility] Last Admin: 09/29/20 10:19 Dose: 300 mg Documented by: Docusate Sodium (Docusate Sodium 100 Mg Capsule) 200 mg PO DAILY PRN PRN Reason: CONSTIPATION Last Admin: 09/29/20 16:57 Dose: 200 mg Documented by: Folic Acid (Folic Acid 1 Mg Tablet) 1 mg PO DAILY [facility] Last Admin: 09/29/20 10:19 Dose: 1 mg Documented by: Furosemide (Furosemide 10 Mg/Ml Sdv 10ml) 60 mg IVP Q12H [facility] Last Admin: 09/29/20 21:03 Dose: 60 mg Documented by: Glucagon (Glucagon 1 Mg/Ml Inj 1 Ml) 1 mg IM ONCE PRN; Protocol PRN Reason: Adult Acute Hypoglycemia Prot. Dextrose (D5w) 500 mls @ 100 mls/hr IV ONCE PRN; Protocol PRN Reason: Adult Acute Hypoglycemia Prot Levofloxacin/Dextrose (Levaquin-D5w) 500 mg in 100 mls @ 100 mls/hr IV Q48H [facility]; Protocol Last Admin: 09/28/20 14:15 Dose: 100 mls/hr Documented by: Dopamine HCl/Dextrose (Intropin Drip) 400 mg in 250 mls @ 16.499 mls/hr IV CONT [facility]; Protocol Last Admin: 09/30/20 04:58 Dose: 5 mcg/kg/min, 16.5 mls/hr Documented by: Insulin Aspart (Insulin Aspart 100 Unit/1 Ml) 0 unit SUBCUT WM&BEDTIME [facility]; Protocol Last Admin: 09/30/20 07:41 Dose: 8 unit Documented by: Insulin Glargine (Insulin Glargine 100 Units/1 Ml) 15 unit SUBCUT BEDTIME@20 [facility] Last Admin: 09/29/20 21:03 Dose: Not Given Documented by: Levothyroxine Sodium (Levothyroxine 150 Mcg Tablet) 75 mcg PO DAILY@08 [facility] Last Admin: 09/30/20 07:42 Dose: 75 mcg Documented by: Metolazone (Metolazone 5 Mg Tablet) 5 mg PO DAILY [facility] Last Admin: 09/29/20 21:03 Dose: 5 mg Documented by: Metoprolol Tartrate (Metoprolol Tartrate 50 Mg Tablet) 100 mg PO BID@0900,2100 [facility] Last Admin: 09/29/20 21:00 Dose: 100 mg Documented by: Ondansetron HCl (Ondansetron 2 Mg/Ml Sdv 2 Ml) 4 mg IVP Q6H PRN PRN Reason: NAUSEA AND VOMITING Pantoprazole Sodium (Pantoprazole Dr 40 Mg Tablet) 40 mg PO DAILY@08 [facility] Last Admin: 09/30/20 07:42 Dose: 40 mg Documented by: Fluticasone/Salmeterol (Fluticasone-Salmeterol 250-50 Diskus) 1 puff INHALATION BID.RESPIRATORY [facility] Last Admin: 09/29/20 21:24 Dose: 1 puff Documented by: Vitals/I&O/Wt Last Vital Signs Temp 98.9 F 09/30/20 07:17 Pulse 129 H 09/30/20 07:17 Resp 21 H 09/30/20 07:17 BP 142/81 09/30/20 07:17 Pulse Ox 92 09/30/20 07:17 09/29/20 09/30/20 09/30/20 22:59 06:59 14:59 Intake Total 220 / 611.590 220.465 / 832.055 360 / 360 Output Total 100 / 450 1000 / 1450 Balance 120 / 161.590 -779.535 / -617.945 360 / 360 Physical Exam Narrative: EXAM NARRATIVE: Obese woman sitting in bed in no acute distress HEENT: Extraocular movement intact. Pupils equal round reactive to light. Mild pallor with no icterus. NECK: central trachea, elevated JVD, No carotid bruit. CARDIOVASCULAR SYSTEM: S1-S2 irregular, tachycardia +, of variable intensity no murmur rubs or gallops. RESPIRATORY SYSTEM: Decreased breath sounds at bilateral bases. No wheezes, coarse rhonchi. No use of accessory muscles. ABDOMEN: Soft, nontender and nondistended. Normal bowel sounds present. EXTREMITIES: No cyanosis or clubbing. 2+ edema extending above knees. No signs of chronic venous insufficiency. MEDICAL STAFF PHYSICIAN: Patient is alert oriented ?3. No focal neurological deficits. SKIN: Normal turgor and temperature. No breakdown, rash or nail changes noted. PSYCH: Normal insight and judgment. Urinary Catheter Management^: [place]: Cath Placed During This Visit: yes Reason for Continuing Indwelling Catheter: Accurate Measurement of Urinary Output in Critically Ill Patients Urinary Catheter Date of Insertion: 09/25/20 Urinary Catheter Time of Insertion: 21:00 Data : 09/30/20 04:54 09/30/20 04:54 A&P Assessment and plan (1) CHF (congestive heart failure): -Repeat echo with mild RV dysfunction and normal LV function. -Decompensated congestive heart failure. Continue Lasix 60 mg IV every 12 hours. -I will add metolazone 5 mg p.o. daily. -We will closely monitor intake and output and daily weight. -Given baseline chronic kidney disease, closely monitor renal function. -I will increased dose of dopamine to 5 mcg/kg/min. -Continue amiodarone and Cardizem at present dose but may have to stop dopamine depending on how her HR does. Status: Acute Qualifiers: Heart failure chronicity: acute on chronic Heart failure type: diastolic Qualified Code(s): I50.33 - Acute on chronic diastolic (congestive) heart failure (2) Atrial fibrillation with controlled ventricular rate: A. fib with intermittent high rates. - Not on anticoagulation given anemia requiring blood transfusions. -Continue with rate control strategy given inability to anticoagulate for now. Continue cardizem to 420 mg and amiodarone to 200 mg BID. -I will increase metoprolol tartrate to 125 twice daily. Status: Acute (3) HTN (hypertension): Status: Acute Qualifiers: Hypertension type: essential hypertension Qualified Code(s): I10 - Esse ntial (primary) hypertension (4) CKD (chronic kidney disease): Status: Acute Qualifiers: Chronic kidney disease stage: stage 4 (severe) Qualified Code(s): N18.4 - Chronic kidney disease, stage 4 (severe) (5) Anemia: Macrocytic anemia Status: Acute Qualifiers: Anemia type: unspecified type Qualified Code(s): D64.9 - Anemia, unspecified Additional A&P Information Hypokalemia Elevated troponin in setting of decompensated congestive heart failure and underlying kidney disease. Hypoalbuminemia: Receiving a bag of albumin today. Thank you for allowing me to participate in patient's care. Please feel free to call with questions or concerns. Attestations Medical Necessity Statement*: Needs hospital stay for decompensated CHF. Time Spent in Patient Care: 16 - 35 minutes (>than 50% of time spent in counselling and/or direct pt care on unit) . Coding Level of Care Code Acute College Archivist for Victor Manuelg Fwd Diagnoses CHF (congestive heart failure) I50.33 Heart failure chronicity: acute on chronic Heart failure type: diastolic Atrial fibrillation with controlled ventricular rate I48.91 HTN (hypertension) I10 Hypertension type: essential hypertension CKD (chronic kidney disease) N18.4 Chronic kidney disease stage: stage 4 (severe) Anemia D64.9 Anemia type: unspecified type
[2020-09-30] MEDS: FUROsemide 10 mg/mL SDV 10mL 60 MG IVP (09:48)
[2020-09-30] MEDS: metOLazone 5 MG Tablet PO ×2 (09:49→13:30)
[2020-09-30] MEDS: cyanocobalamin 1,000 mcg Tablet 1000 MCG PO (09:49)
[2020-09-30] MEDS: aspirin 81 mg EC Tablet PO (09:49)
[2020-09-30] MEDS: dilTIAZem ER (24HR) 300 mg Capsule PO (09:49)
[2020-09-30] MEDS: metoprolol tartrate 50 mg Tablet 100 MG PO (09:49)
[2020-09-30] MEDS: amiodarone 200 mg Tablet PO (09:49)
[2020-09-30] MEDS: folic acid 1 mg Tablet PO (09:49)
[2020-09-30 11:03] LABS: Glucose Point of Care 356 mg/dL (70-110)
--- NOTE | 2020-09-30 11:08 | PM.PN ---
Subjective Subjective: Interval history: This is a 80-year-old female who presented to the hospital with worsening shortness of breath and edema. She recently was hospitalized for Covid and heart failure. Discharged September 11. Covid was tested positive in July. She has been on 3 L of oxygen at home. In the ED patient was noted to be increasingly hypoxic. She is admitted for decompensated heart failure. feels better currently on 5L, aftebrile -377 fluid balance l Medications: Reviewed: Yes Medication Review Details: Current Medications Acetaminophen (Acetaminophen 325 Mg Tablet) 650 mg PO Q6H PRN PRN Reason: Mild/Mod Pain Or Temp >/= 101 Hydrocodone Bitart/Acetaminophen (Hydrocodone-Acetaminophen 5-325 Mg Tablet) 1 tab PO Q6H PRN PRN Reason: pain Last Admin: 09/29/20 21:02 Dose: 1 tab Documented by: Albuterol Sulfate (Albuterol 8 Gm Mdi) 1 puff INHALATION Q6H.RESPIRATORY PRN PRN Reason: Shortness Of Breath Amiodarone HCl (Amiodarone 200 Mg Tablet) 200 mg PO Q12H [facility] Last Admin: 09/29/20 21:02 Dose: 200 mg Documented by: Aspirin (Aspirin 81 Mg Ec Tablet) 81 mg PO DAILY [facility] Last Admin: 09/29/20 10:19 Dose: 81 mg Documented by: Atorvastatin Calcium (Atorvastatin 40 Mg Tablet) 20 mg PO BEDTIME [facility] Last Admin: 09/29/20 21:02 Dose: 20 mg Documented by: Cyanocobalamin (Cyanocobalamin 1,000 Mcg Tablet) 1,000 mcg PO DAILY [facility] Last Admin: 09/29/20 10:19 Dose: 1,000 mcg Documented by: Dextrose (Dextrose 50% Syringe 50 Ml) 25 ml IVP ONCE PRN; Protocol PRN Reason: hypoglycemia protocol Dextrose (Dextrose 50% Syringe 50 Ml) 50 ml IVP PRN PRN; Protocol PRN Reason: hypoglycemia protocol Diltiazem HCl (Diltiazem Er (24hr) 120 Mg Capsule) 120 mg PO DAILY@0800 [facility] Last Admin: 09/30/20 07:42 Dose: 120 mg Documented by: Diltiazem HCl (Diltiazem Er (24hr) 300 Mg Capsule) 300 mg PO DAILY [facility] Last Admin: 09/29/20 10:19 Dose: 300 mg Documented by: Docusate Sodium (Docusate Sodium 100 Mg Capsule) 200 mg PO DAILY PRN PRN Reason: CONSTIPATION Last Admin: 09/29/20 16:57 Dose: 200 mg Documented by: Folic Acid (Folic Acid 1 Mg Tablet) 1 mg PO DAILY [facility] Last Admin: 09/29/20 10:19 Dose: 1 mg Documented by: Furosemide (Furosemide 10 Mg/Ml Sdv 10ml) 60 mg IVP Q12H [facility] Last Admin: 09/29/20 21:03 Dose: 60 mg Documented by: Glucagon (Glucagon 1 Mg/Ml Inj 1 Ml) 1 mg IM ONCE PRN; Protocol PRN Reason: Adult Acute Hypoglycemia Prot. Dextrose (D5w) 500 mls @ 100 mls/hr IV ONCE PRN; Protocol PRN Reason: Adult Acute Hypoglycemia Prot Levofloxacin/Dextrose (Levaquin-D5w) 500 mg in 100 mls @ 100 mls/hr IV Q48H [facility]; Protocol Last Admin: 09/28/20 14:15 Dose: 100 mls/hr Documented by: Dopamine HCl/Dextrose (Intropin Drip) 400 mg in 250 mls @ 16.499 mls/hr IV CONT [facility]; Protocol Last Admin: 09/30/20 04:58 Dose: 5 mcg/kg/min, 16.5 mls/hr Documented by: Insulin Aspart (Insulin Aspart 100 Unit/1 Ml) 0 unit SUBCUT WM&BEDTIME [facility]; Protocol Last Admin: 09/30/20 07:41 Dose: 8 unit Documented by: Insulin Glargine (Insulin Glargine 100 Units/1 Ml) 15 unit SUBCUT BEDTIME@20 [facility] Last Admin: 09/29/20 21:03 Dose: Not Given Documented by: Levothyroxine Sodium (Levothyroxine 150 Mcg Tablet) 75 mcg PO DAILY@08 [facility] Last Admin: 09/30/20 07:42 Dose: 75 mcg Documented by: Metolazone (Metolazone 5 Mg Tablet) 5 mg PO DAILY [facility] Last Admin: 09/29/20 21:03 Dose: 5 mg Documented by: Metoprolol Tartrate (Metoprolol Tartrate 50 Mg Tablet) 100 mg PO BID@0900,2100 [facility] Last Admin: 09/29/20 21:00 Dose: 100 mg Documented by: Ondansetron HCl (Ondansetron 2 Mg/Ml Sdv 2 Ml) 4 mg IVP Q6H PRN PRN Reason: NAUSEA AND VOMITING Pantoprazole Sodium (Pantoprazole Dr 40 Mg Tablet) 40 mg PO DAILY@08 [facility] Last Admin: 09/30/20 07:42 Dose: 40 mg Documented by: Fluticasone/Salmeterol (Fluticasone-Salmeterol 250-50 Diskus) 1 puff INHALATION BID.RESPIRATORY [facility] Last Admin: 09/29/20 21:24 Dose: 1 puff Documented by: Vitals/I&O/Wt Last Vital Signs Temp 97.5 F L 09/30/20 10:46 Pulse 115 H 09/30/20 10:46 Resp 15 09/30/20 10:46 BP 139/80 09/30/20 10:46 Pulse Ox 96 09/30/20 10:46 09/29/20 09/30/20 09/30/20 22:59 06:59 14:59 Intake Total 220 / 611.590 220.465 / 832.055 360 / 360 Output Total 100 / 450 1000 / 1450 Balance 120 / 161.590 -779.535 / -617.945 360 / 360 Physical Exam Const: COMMON NORMALS: no acute distress and patient oriented x3 GENERAL APPEARANCE: cooperative NUTRITIONAL APPEARANCE: obese Resp: COMMON NORMALS: normal respiratory effort and No use of accessory muscles Cardio: COMMON NORMALS: regular rate RATE: regular rate GI: COMMON NORMALS: Soft to palpation and non-tender PALPATION: Yes Soft to palpation Extremity: OTHER: edema Neuro: COMMON NORMALS: patient oriented x3 and moves all extremities Skin: COMMON NORMALS: no rashes or lesions noted GENERAL SKIN EXAM: no rashes or lesions noted Urinary Catheter Management^: [place]: Cath Placed During This Visit: yes Reason for Continuing Indwelling Catheter: Accurate Measurement of Urinary Output in Critically Ill Patients Urinary Catheter Date of Insertion: 09/25/20 Urinary Catheter Time of Insertion: 21:00 Data : 09/30/20 04:54 09/30/20 04:54 A&P Assessment and plan (1) ANSON (acute kidney injury): Status: Acute (2) Acute exacerbation of CHF (congestive heart failure): Status: Acute (3) Anemia: Status: Acute Qualifiers: Anemia type: unspecified type Qualified Code(s): D64.9 - Anemia, unspecified (4) Diabetes: Status: Acute (5) HTN (hypertension): Status: Acute Qualifiers: Hypertension type: essential hypertension Qualified Code(s): I10 - Essential (primary) hypertension (6) Hypoxemia: Status: Acute Additional A&P Information This is a 80-year-old female with history of congestive heart failure recently treated for Covid pneumonia presented to hospital with worsening shortness of breath. Acute CHF exacerbation -Continue diuretics currently on Lasix 60 twice daily -metoprolol tartrate 100mg po bid -zaroxyolyn 5mg daily -Monitor I's and O's -ECHO EF 55-60%, RAP 15mmhg -dopamine added Hypoxemia -on 3L at home. currently on 5L ANSON -screat slightly better -check AM labs -Monitor I's and O's, avoid NSAIDs AFIB with RVR -amiodarone,BB and diltiazem DM -fsbs elevated -fsbs,ssi, lantus 15u HTN -stable elevated d dimer -VQ indeterminate, duplex neg for DVT in Aug Hypothyroidism -tsh stable in July -on replacement UTI -enterococcus -on levaquin DVT:SCD GI: PPI Attestations Medical Necessity Statement*: Luiza Cooper's hospital stay will require greater than 2 midnights for chf Coding Level of Care Code Acute Milk Vendor for Chg Fwd Diagnoses ANSON (acute kidney injury) N17.9 Acute exacerbation of CHF (congestive heart failure) I50.9 Anemia D64.9 Anemia type: unspecified type Diabetes E11.9 HTN (hypertension) I10 Hypertension type: essential hypertension Hypoxemia R09.02
[2020-09-30] MEDS: levofloxacin-dextrose 5 % 500 MG/100 ML PREMIX 100 MG IV (13:30)
[2020-09-30 16:26] LABS: Glucose Point of Care 332 mg/dL (70-110)
[2020-09-30] MEDS: docusate sodium 100 mg Capsule 200 MG PO (18:12)
--- NOTE | 2020-09-30 18:25 | PC.NURSE ---
PATIENT'S URINE OUTPUT 350ML THIS SHIFT. DR. NOEL NOTIFIED.
[2020-09-30] MEDS: FUROsemide 10 mg/mL SDV 10mL 80 MG IVP (20:28)
[2020-09-30] MEDS: atorvastatin 40 mg Tablet 20 MG PO (20:29)
[2020-09-30] MEDS: metoprolol tartrate 50 mg Tablet 125 MG PO (20:45)
[2020-09-30 21:13] LABS: Glucose Point of Care 240 mg/dL (70-110)
[2020-09-30] MEDS: insulin glargine 100 units/1 mL 15 UNIT SUBCUT (21:36)
[2020-10-01] VITALS (11 sets, daily range): BP systolic 109–149; BP diastolic 61–79; PULSE 90–118; RESP 18–26; TEMP 36.6–36.9; O2SAT 88–93
--- NOTE | 2020-10-01 03:22 | PC.NURSE ---
NURSE NOTE: PT ALERT AND ORIENTED X4, MOVES ALL EXTREMITIES AND FOLLOWS COMMANDS. PT HAD ORDER FOR METOPROLOL 125MG, LASIX 80 MG, AND IS CURRENTLY ON A DOPAMINE GTT AT 5MCG/KG/HR. NOTIFIED DR. LEVINE ALONG WITH DR. YBARRA AT APPROXIMATELY 2100 TO VERIFY THEY WANTED METOPROLOL GIVEN. BOTH PHYSICIANS STATED OK TO GIVE THESE MEDICATIONS AT THIS TIME. ALL VS AND ASSESSMENTS CHARTED. DENIES PAIN OR NEEDS. CURRENTLY RESTING WITH EYES CLOSED, RESP EVEN AND NON LABORED. NO DISTRESS AT THIS TIME.
[2020-10-01 05:46] LABS: Alanine Aminotransferase 11 U/L (0-33); Albumin Level 3.3 g/dL (3.5-5.2); Alkaline Phosphatase 86 IU/L (35-105); Anion Gap 13.3 (5-19); Aspartate Amino Transferase 8 U/L (0-32); Blood Urea Nitrogen 34 mg/dL (8-23); Calcium 9.4 mg/dL (8.5-10.5); Carbon Dioxide 34 mmol/L (22-29); Chloride 92 mmol/L (98-107); Globulin 3.1 g/dL (1.3-4.6); Glucose 97 mg/dL (65-115); Osmolality Calculated 290 mOsm/kg (285-295); Potassium 3.3 mmol/L (3.5-5.1); Sodium 136 mmol/L (136-145); Total Bilirubin 0.7 mg/dL (0.15-1.2); Total Protein 6.4 g/dL (6.6-8.7)
[2020-10-01 06:07] LABS: Glucose Point of Care 138 mg/dL (70-110)
[2020-10-01 06:29] LABS: Magnesium 1.8 mg/dL (1.7-2.3)
[2020-10-01] MEDS: potassium chloride ER 20 mEq Tablet 40 MEQ PO (07:29)
--- NOTE | 2020-10-01 07:39 | P.PN_ITS ---
Subjective Subjective: Interval history: I saw her after walk down the halls and she states she is still SOB. Denies abdominal pain this morning but complains of fullness. UO 1650 ml, -1290 ml Medications: Reviewed: Yes Medication Review Details: Current Medications Acetaminophen (Acetaminophen 325 Mg Tablet) 650 mg PO Q6H PRN PRN Reason: Mild/Mod Pain Or Temp >/= 101 Hydrocodone Bitart/Acetaminophen (Hydrocodone-Acetaminophen 5-325 Mg Tablet) 1 tab PO Q6H PRN PRN Reason: pain Last Admin: 09/29/20 21:02 Dose: 1 tab Documented by: Albuterol Sulfate (Albuterol 8 Gm Mdi) 1 puff INHALATION Q6H.RESPIRATORY PRN PRN Reason: Shortness Of Breath Amiodarone HCl (Amiodarone 200 Mg Tablet) 200 mg PO DAILY [facility] Aspirin (Aspirin 81 Mg Ec Tablet) 81 mg PO DAILY [facility] Last Admin: 09/30/20 09:49 Dose: 81 mg Documented by: Atorvastatin Calcium (Atorvastatin 40 Mg Tablet) 20 mg PO BEDTIME [facility] Last Admin: 09/30/20 20:29 Dose: 20 mg Documented by: Cyanocobalamin (Cyanocobalamin 1,000 Mcg Tablet) 1,000 mcg PO DAILY [facility] Last Admin: 09/30/20 09:49 Dose: 1,000 mcg Documented by: Dextrose (Dextrose 50% Syringe 50 Ml) 25 ml IVP ONCE PRN; Protocol PRN Reason: hypoglycemia protocol Dextrose (Dextrose 50% Syringe 50 Ml) 50 ml IVP PRN PRN; Protocol PRN Reason: hypoglycemia protocol Diltiazem HCl (Diltiazem Er (24hr) 120 Mg Capsule) 120 mg PO DAILY@0800 [facility] Last Admin: 09/30/20 07:42 Dose: 120 mg Documented by: Diltiazem HCl (Diltiazem Er (24hr) 300 Mg Capsule) 300 mg PO DAILY [facility] Last Admin: 09/30/20 09:49 Dose: 300 mg Documented by: Docusate Sodium (Docusate Sodium 100 Mg Capsule) 200 mg PO DAILY PRN PRN Reason: CONSTIPATION Last Admin: 09/30/20 18:12 Dose: 200 mg Documented by: Folic Acid (Folic Acid 1 Mg Tablet) 1 mg PO DAILY [facility] Last Admin: 09/30/20 09:49 Dose: 1 mg Documented by: Furosemide (Furosemide 10 Mg/Ml Sdv 10ml) 80 mg IVP Q12H [facility] Last Admin: 09/30/20 20:28 Dose: 80 mg Documented by: Glucagon (Glucagon 1 Mg/Ml Inj 1 Ml) 1 mg IM ONCE PRN; Protocol PRN Reason: Adult Acute Hypoglycemia Prot. Dextrose (D5w) 500 mls @ 100 mls/hr IV ONCE PRN; Protocol PRN Reason: Adult Acute Hypoglycemia Prot Levofloxacin/Dextrose (Levaquin-D5w) 500 mg in 100 mls @ 100 mls/hr IV Q48H [facility]; Protocol Last Admin: 09/30/20 13:30 Dose: 100 mls/hr Documented by: Dopamine HCl/Dextrose (Intropin Drip) 400 mg in 250 mls @ 16.499 mls/hr IV CONT [facility]; Protocol Last Admin: 09/30/20 04:58 Dose: 5 mcg/kg/min, 16.5 mls/hr Documented by: Insulin Aspart (Insulin Aspart 100 Unit/1 Ml) 0 unit SUBCUT WM&BEDTIME [facility]; Protocol Last Admin: 09/30/20 21:35 Dose: 8 unit Documented by: Insulin Glargine (Insulin Glargine 100 Units/1 Ml) 15 unit SUBCUT BEDTIME@20 [facility] Last Admin: 09/30/20 21:36 Dose: 15 unit Documented by: Levothyroxine Sodium (Levothyroxine 150 Mcg Tablet) 75 mcg PO DAILY@08 [facility] Last Admin: 09/30/20 07:42 Dose: 75 mcg Documented by: Metolazone (Metolazone 5 Mg Tablet) 5 mg PO DAILY [facility] Metoprolol Tartrate (Metoprolol Tartrate 50 Mg Tablet) 125 mg PO BID@0900,2100 [facility] Last Admin: 09/30/20 20:45 Dose: 125 mg Documented by: Ondansetron HCl (Ondansetron 2 Mg/Ml Sdv 2 Ml) 4 mg IVP Q6H PRN PRN Reason: NAUSEA AND VOMITING Pantoprazole Sodium (Pantoprazole Dr 40 Mg Tablet) 40 mg PO DAILY@08 [facility] Last Admin: 09/30/20 07:42 Dose: 40 mg Documented by: Fluticasone/Salmeterol (Fluticasone-Salmeterol 250-50 Diskus) 1 puff INHALATION BID.RESPIRATORY [facility] Last Admin: 09/30/20 19:58 Dose: 1 puff Documented by: Vitals/I&O/Wt Last Vital Signs Temp 98 F 10/01/20 00:00 Pulse 118 H 10/01/20 06:00 Resp 22 H 10/01/20 04:56 BP 145/79 10/01/20 04:56 Pulse Ox 90 10/01/20 00:00 09/30/20 10/01/20 10/01/20 22:59 06:59 14:59 Output Total 650 / 650 1000 / 1650 Balance -650 / -290 -1000 / -1290 Physical Exam Narrative: EXAM NARRATIVE: Obese woman sitting in bed in no acute distress HEENT: Extraocular movement intact. Pupils equal round reactive to light. Mild pallor with no icterus. NECK: central trachea, elevated JVD, No carotid bruit. CARDIOVASCULAR SYSTEM: S1-S2 irregular, tachycardia +, of variable intensity no murmur rubs or gallops. RESPIRATORY SYSTEM: Decreased breath sounds at bilateral bases. No wheezes, coarse rhonchi+. No use of accessory muscles. ABDOMEN: Soft, nontender and nondistended. Normal bowel sounds present. EXTREMITIES: No cyanosis or clubbing. 2+ edema extending above knees. No signs of chronic venous insufficiency. [employer] G[employer] OR [employer] F[employer] MANAGER: Patient is alert oriented ?3. No focal neurological deficits. SKIN: Normal turgor and temperature. No breakdown, rash or nail changes noted. PSYCH: Normal insight and judgment. Urinary Catheter Management^: [place]: Cath Placed During This Visit: yes Reason for Continuing Indwelling Catheter: Accurate Measurement of Urinary Output in Critically Ill Patients Urinary Catheter Date of Insertion: 09/25/20 Urinary Catheter Time of Insertion: 21:00 Data : 09/30/20 04:54 10/01/20 04:43 Attestation for Other Data: I personally reviewed and interpreted the following: Other data: Transthoracic echocardiogram 03 August 2020 CONCLUSIONS Normal left ventricular size and systolic function, EF 65 %. No regional wall motion abnormalities. Mildly increased left atrial size. Trace mitral valve regurgitation. Thickened aortic valve. Trace tricuspid valve regurgitation. There is no pericardial effusion. There are no intracardiac masses. Compared to the previous study from 12/15/2018, there may not be a significant change. [facility] IMPRESSIONS #1. Myocardial perfusion imaging revealing a small area of reversible defect in the apical inferior wall region, suggestive of ischemia in the distribution of the distal right coronary artery. #2. Normal LV ejection fraction of 72%. #3. LV wall motion analysis revealed mild hypokinesia of the left ventricular apex. #4. Normal LV volume No similar previous studies are available for comparison TTE (09/26/20) CONCLUSIONS 1. This is a limited echocardiogram with 2D evaluation only. 2. Normal left ventricular cavity size. Normal left ventricular systolic function. Left ventricular ejection fraction is estimated at 55-60 %. No diagnostic regional wall motion abnormality. 3. Upper normal right ventricular size and at least mildly decreased systolic function. 4. Moderately increased left atrial size. 5. Dilated inferior vena cava with less than 50% respiratory variation. 6. Right atrial pressure estimated at 15 mmHg. 7. When compared to previous echocardiogram dated 08/03/2020, right ventricular systolic function may have decreased. A&P Assessment and plan (1) CHF (congestive heart failure): -Repeat echo with mild RV dysfunction and normal LV function. -Decompensated congestive heart failure. Continue Lasix 80 mg IV every 12 hours. -continue metolazone 5 mg p.o. daily. -We will closely monitor intake and output and daily weight. -Given baseline chronic kidney disease, closely monitor renal function. -continue dopamine at 5 mcg/kg/min another day. Status: Acute Qualifiers: Heart failure chronicity: acute on chronic Heart failure type: diastolic Qualified Code(s): I50.33 - Acute on chronic diastolic (congestive) heart failure (2) Atrial fibrillation with controlled ventricular rate: A. fib with intermittent high rates. - Not on anticoagulation given anemia requiring blood transfusions. -Continue with rate control strategy given inability to anticoagulate for now. Continue cardizem 420 mg and amiodarone 200 mg daily and metoprolol tartrate 125 BID. Status: Acute (3) HTN (hypertension): Status: Acute Qualifiers: Hypertension type: essential hypertension Qualified Code(s): I10 - Essential (primary) hypertension (4) CKD (chronic kidney disease): Status: Acute Qualifiers: Chronic kidney disease stage: stage 4 (severe) Qualified Code(s): N18.4 - Chronic kidney disease, stage 4 (severe) (5) Anemia: Macrocytic anemia Status: Acute Qualifiers: Anemia type: unspecified type Qualified Code(s): D64.9 - Anemia, unspecified Additional A&P Information Hypokalemia: replaced Elevated troponin in setting of decompensated congestive heart failure and underlying kidney disease. Hypoalbuminemia: Receiving a bag of albumin today. Thank you for allowing me to participate in patient's care. Please feel free to call with questions or concerns. Attestations Medical Necessity Statement*: Needs hospital stay for decompensated CHF. Time Spent in Patient Care: 16 - 35 minutes (>than 50% of time spent in counselling and/or direct pt care on unit) . Coding Level of Care Code Acute Radio Interference Expert for Maria G Grissom Diagnoses CHF (congestive heart failure) I50.33 Heart failure chronicity: acute on chronic Heart failure type: diastolic Atrial fibrillation with controlled ventricular rate I48.91 HTN (hypertension) I10 Hypertension type: essential hypertension CKD (chronic kidney disease) N18.4 Chronic kidney disease stage: stage 4 (severe) Anemia D64.9 Anemia type: unspecified type
[2020-10-01] MEDS: cyanocobalamin 1,000 mcg Tablet 1000 MCG PO (09:10)
[2020-10-01] MEDS: aspirin 81 mg EC Tablet PO (09:10)
[2020-10-01] MEDS: folic acid 1 mg Tablet PO (09:11)
[2020-10-01] MEDS: dilTIAZem ER (24HR) 120 mg Capsule PO (09:11)
[2020-10-01] MEDS: metOLazone 5 MG Tablet PO (09:11)
[2020-10-01] MEDS: amiodarone 200 mg Tablet PO (09:11)
[2020-10-01] MEDS: levothyroxine 150 mcg Tablet 75 MCG PO (09:12)
[2020-10-01] MEDS: pantoprazole DR 40 mg Tablet PO (09:12)
[2020-10-01] MEDS: dilTIAZem ER (24HR) 300 mg Capsule PO (09:16)
[2020-10-01] MEDS: FUROsemide 10 mg/mL SDV 10mL 80 MG IVP ×2 (09:16→20:39)
[2020-10-01] MEDS: metoprolol tartrate 50 mg Tablet 125 MG PO ×2 (09:19→20:39)
[2020-10-01 11:15] LABS: Glucose Point of Care 398 mg/dL (70-110)
[2020-10-01] MEDS: DOPamine drip 400 MG/250 ML PREMIX 16.5 MG IV (13:48)
--- NOTE | 2020-10-01 15:52 | PM.PN ---
Subjective Subjective: Interval history: Patient overnight did not have any new clinical events.. Was noted to be tachycardic. O2 saturations ranged from 88 to 90. patient denied any chest pain overnight. No fever, chills. Noted abdominal discomfort however stated has not had a bowel movement for over a week. Medications: Reviewed: Yes Medication Review Details: Current Medications Acetaminophen (Acetaminophen 325 Mg Tablet) 650 mg PO Q6H PRN PRN Reason: Mild/Mod Pain Or Temp >/= 101 Hydrocodone Bitart/Acetaminophen (Hydrocodone-Acetaminophen 5-325 Mg Tablet) 1 tab PO Q6H PRN PRN Reason: pain Last Admin: 09/29/20 21:02 Dose: 1 tab Documented by: Albuterol Sulfate (Albuterol 8 Gm Mdi) 1 puff INHALATION Q6H.RESPIRATORY PRN PRN Reason: Shortness Of Breath Amiodarone HCl (Amiodarone 200 Mg Tablet) 200 mg PO Q12H [facility] Last Admin: 09/29/20 21:02 Dose: 200 mg Documented by: Aspirin (Aspirin 81 Mg Ec Tablet) 81 mg PO DAILY [facility] Last Admin: 09/29/20 10:19 Dose: 81 mg Documented by: Atorvastatin Calcium (Atorvastatin 40 Mg Tablet) 20 mg PO BEDTIME [facility] Last Admin: 09/29/20 21:02 Dose: 20 mg Documented by: Cyanocobalamin (Cyanocobalamin 1,000 Mcg Tablet) 1,000 mcg PO DAILY [facility] Last Admin: 09/29/20 10:19 Dose: 1,000 mcg Documented by: Dextrose (Dextrose 50% Syringe 50 Ml) 25 ml IVP ONCE PRN; Protocol PRN Reason: hypoglycemia protocol Dextrose (Dextrose 50% Syringe 50 Ml) 50 ml IVP PRN PRN; Protocol PRN Reason: hypoglycemia protocol Diltiazem HCl (Diltiazem Er (24hr) 120 Mg Capsule) 120 mg PO DAILY@0800 [facility] Last Admin: 09/30/20 07:42 Dose: 120 mg Documented by: Diltiazem HCl (Diltiazem Er (24hr) 300 Mg Capsule) 300 mg PO DAILY [facility] Last Admin: 09/29/20 10:19 Dose: 300 mg Documented by: Docusate Sodium (Docusate Sodium 100 Mg Capsule) 200 mg PO DAILY PRN PRN Reason: CONSTIPATION Last Admin: 09/29/20 16:57 Dose: 200 mg Documented by: Folic Acid (Folic Acid 1 Mg Tablet) 1 mg PO DAILY [facility] Last Admin: 09/29/20 10:19 Dose: 1 mg Documented by: Furosemide (Furosemide 10 Mg/Ml Sdv 10ml) 60 mg IVP Q12H [facility] Last Admin: 09/29/20 21:03 Dose: 60 mg Documented by: Glucagon (Glucagon 1 Mg/Ml Inj 1 Ml) 1 mg IM ONCE PRN; Protocol PRN Reason: Adult Acute Hypoglycemia Prot. Dextrose (D5w) 500 mls @ 100 mls/hr IV ONCE PRN; Protocol PRN Reason: Adult Acute Hypoglycemia Prot Levofloxacin/Dextrose (Levaquin-D5w) 500 mg in 100 mls @ 100 mls/hr IV Q48H [facility]; Protocol Last Admin: 09/28/20 14:15 Dose: 100 mls/hr Documented by: Dopamine HCl/Dextrose (Intropin Drip) 400 mg in 250 mls @ 16.499 mls/hr IV CONT [facility]; Protocol Last Admin: 09/30/20 04:58 Dose: 5 mcg/kg/min, 16.5 mls/hr Documented by: Insulin Aspart (Insulin Aspart 100 Unit/1 Ml) 0 unit SUBCUT WM&BEDTIME [facility]; Protocol Last Admin: 09/30/20 07:41 Dose: 8 unit Documented by: Insulin Glargine (Insulin Glargine 100 Units/1 Ml) 15 unit SUBCUT BEDTIME@20 [facility] Last Admin: 09/29/20 21:03 Dose: Not Given Documented by: Levothyroxine Sodium (Levothyroxine 150 Mcg Tablet) 75 mcg PO DAILY@08 [facility] Last Admin: 09/30/20 07:42 Dose: 75 mcg Documented by: Metolazone (Metolazone 5 Mg Tablet) 5 mg PO DAILY [facility] Last Admin: 09/29/20 21:03 Dose: 5 mg Documented by: Metoprolol Tartrate (Metoprolol Tartrate 50 Mg Tablet) 100 mg PO BID@0900,2100 [facility] Last Admin: 09/29/20 21:00 Dose: 100 mg Documented by: Ondansetron HCl (Ondansetron 2 Mg/Ml Sdv 2 Ml) 4 mg IVP Q6H PRN PRN Reason: NAUSEA AND VOMITING Pantoprazole Sodium (Pantoprazole Dr 40 Mg Tablet) 40 mg PO DAILY@08 [facility] Last Admin: 09/30/20 07:42 Dose: 40 mg Documented by: Fluticasone/Salmeterol (Fluticasone-Salmeterol 250-50 Diskus) 1 puff INHALATION BID.RESPIRATORY [facility] Last Admin: 09/29/20 21:24 Dose: 1 puff Documented by: Vitals/I&O/Wt Last Vital Signs Temp 98.5 F 10/01/20 15:29 Pulse 94 10/01/20 15:29 Resp 19 H 10/01/20 15:29 BP 126/67 10/01/20 15:29 Pulse Ox 91 10/01/20 15:29 10/01/20 10/01/20 10/01/20 06:59 14:59 22:59 Intake Total 370 / 370 120 / 490 Output Total 1000 / 1650 1300 / 1300 Balance -1000 / -1290 370 / 370 -1180 / -810 Physical Exam Narrative: EXAM NARRATIVE: General exam no apparent distress Neck is supple no lymphadenopathy or thyromegaly Cardiovascular irregular, irregular with no murmur. Lungs crackles bilaterally. No wheezing. Abdomen is soft nontender with positive bowel sounds. No obvious organomegaly Extremities no cyanosis or clubbing. 1+ edema is noted Cardio: COMMON NORMALS: regular rate RATE: regular rate Urinary Catheter Management^: [place]: Cath Placed During This Visit: yes Reason for Continuing Indwelling Catheter: Accurate Measurement of Urinary Output in Critically Ill Patients Urinary Catheter Date of Insertion: 09/25/20 Urinary Catheter Time of Insertion: 21:00 Data : 09/30/20 04:54 10/01/20 04:43 A&P Assessment and plan (1) ANSON (acute kidney injury): Status: Acute (2) Acute exacerbation of CHF (congestive heart failure): Status: Acute (3) Anemia: Hemoglobin stable. Stool heme positive. Needs outpatient work-up. No significant clinical evidence for brisk GI bleed. Avoid anticoagulants Status: Acute Qualifiers: Anemia type: unspecified type Qualified Code(s): D64.9 - Anemia, unspecified (4) Diabetes: Sliding scale insulin Status: Acute (5) HTN (hypertension): Hold ARB Continue other antihypertensives Status: Acute Qualifiers: Hypertension type: essential hypertension Qualified Code(s): I10 - Essential (primary) hypertension (6) Hypoxemia: Status: Acute Additional A&P Information This is a 80-year-old female with history of congestive heart failure recently treated for Covid pneumonia presented to hospital with worsening shortness of breath. Acute on chronic HFpEF exacerbation -Continue IV diuretics -Zaroxyolyn 5mg daily -Monitor I's and O's -ECHO EF 55-60%, RAP 15mmhg -Cardiology on board -Check wt in am -Record input and output Acute on chronic hypoxiemic respiratory failure -Nn 3L at home. currently on 4L -O2 saturation in high 80s -Will likely need home o2 eval at discharge -Etiology multi-factorial -Chest x-ray in am Acute kidney failure on chronic stage 3 kidney disease -Likely at new baseline - creatinine 2.5 -Follow up with nephrology outpatient -Renal US noted -Renal dosing of meds -Monitor u/o AFIB with RVR -Cardiology on board -Rate not well controlled -Continue to titrate meds per cardiology Diabetes Mellitus -QACHS checks -Sliding scale insulin -Latus 15 units HTN -stable elevated d dimer -VQ indeterminate, duplex neg for DVT in Aug Hypothyroidism -tsh stable in July -on replacement UTI -enterococcus -on levaquin Constipation -Bowel regimen DVT:SCD GI: PPI Attestations Medical Necessity Statement*: Will require furhter hospitalization for management of respiratory distress, renal failure, and atrial fibrillation Time Spent in Patient Care: Greater than 35 minutes (>than 50% of time spent in counselling and/or direct pt care on unit). Coding Level of Care Code Acute Detacker for g Fwd Diagnoses ANSON (acute kidney injury) N17.9 Acute exacerbation of CHF (congestive heart failure) I50.9 Anemia D64.9 Anemia type: unspecified type Diabetes E11.9 HTN (hypertension) I10 Hypertension type: essential hypertension Hypoxemia R09.02
[2020-10-01] MEDS: magnesium hydroxide 30 mL UDC PO (15:59)
[2020-10-01] MEDS: bisacodyl 10 mg Supp PR (15:59)
[2020-10-01 17:18] LABS: Glucose Point of Care 258 mg/dL (70-110)
--- NOTE | 2020-10-01 18:39 | US_ITS ---
WS: [id number] Complete ABDOMINAL ULTRASOUND HISTORY: abdominal pain and fullness COMPARISON: None available. Liver: 15.2 cm in length. Normal size liver. Calcification with shadowing is probably a granuloma tow ards the central liver. No bile duct dilatation or mass. Gallbladder: No stones or sludge. No pericholecystic fluid. Gallbladder wall thickness: 0.2 cm. Pancreas: Only partially visualized but normal. CBD: 0.5 cm. Right kidney: 9.8 cm x 3.9 cm x 3.2 cm. No mass, cortical thickening or hydronephrosis. Left kidney: 10.6 cm x 5.6 cm x 4.7 cm. Poorly visualized kidney. No hydronephrosis. Spleen: Normal size with granulomata. Abdominal aorta and IVC are within normal limits. There is a small RIGHT pleural effusion. No ascites identified. US/US abdomen complete* [id number] IMPRESSION: 1. No acute abdominal abnormality. 2. No cholelithiasis. 3. Small RIGHT pleural effusion. 4. Poorly visualized kidneys but no hydronephrosis. 5. No ascites. 6. Hepatic and splenic granulomas.
[2020-10-01] MEDS: atorvastatin 40 mg Tablet 20 MG PO (20:40)
[2020-10-01 21:27] LABS: Glucose Point of Care 116 mg/dL (70-110)
[2020-10-02] VITALS (14 sets, daily range): BP systolic 107–143; BP diastolic 43–92; PULSE 78–120; RESP 13–29; TEMP 36.6–36.8; O2SAT 90–96
--- NOTE | 2020-10-02 01:40 | PC.NURSE ---
NURSE NOTE: PT'S BLOOD GLUCOSE LEVEL AT HS = 116. PT HAD ORDERS FOR 15U LANTUS. NOTIFIED DR. DEL TORO TO MAKE SURE WANTED LANTUS INSULIN GIVEN. DR. DEL TORO DECREASED ORDER FOR LANTUS TO 5U NOW X1. PT REFUSED . WILL CONTINUE TO MONITOR.
[2020-10-02 02:39] LABS: Glucose Point of Care 246 mg/dL (70-110)
[2020-10-02 04:31] LABS: Basophils # 0.1 10^3/uL (0.0-0.1); Basophils % 0.8 %; Eosinophils # 0.2 10^3/uL (0.0-0.8); Eosinophils % 1.9 %; Hematocrit 30.5 % (37.0-47.0); Hemoglobin 9.4 g/dL (11.5-15.3); Lymphocytes # 2.3 10^3/uL (0.8-4.8); Lymphocytes % 18.4 %; Mean Corpuscular HGB Conc 30.8 g/dL (30.0-36.0); Mean Corpuscular Hemoglobin 29.7 pg (28.0-34.0); Mean Corpuscular Volume 96.5 fL (81-99); Mean Platelet Volume 9.9 fL (7.4-10.4); Monocytes # 0.8 10^3/uL (0.2-0.9); Monocytes % 6.2 %; Neutrophils # 9.09 10^3/uL (1.8-7.7); Neutrophils % 71.6 %; Nucleated Red Blood Cells % 0 %; Platelet Count 263 10^3/cmm (130-400); Red Blood Count 3.16 10^6/uL (4.1-5.3); Red Cell Distribution Width 15.9 % (12.1-15.1); White Blood Count 12.7 10^3/uL (4.0-10.0)
[2020-10-02 04:47] LABS: Procalcitonin 0.22 ng/mL (0-0.5)
[2020-10-02] MEDS: DOPamine drip 400 MG/250 ML PREMIX 16.5 MG IV ×2 (04:57→19:52)
[2020-10-02 04:58] LABS: Anion Gap 17.4 (5-19); Blood Urea Nitrogen 33 mg/dL (8-23); Calcium 9.5 mg/dL (8.5-10.5); Carbon Dioxide 32 mmol/L (22-29); Chloride 89 mmol/L (98-107); Glucose 202 mg/dL (65-115); Osmolality Calculated 293 mOsm/kg (285-295); Potassium 3.4 mmol/L (3.5-5.1); Sodium 135 mmol/L (136-145)
--- NOTE | 2020-10-02 05:17 | PC.NURSE ---
NURSE NOTE: SHIFT SUMMARY: PT ALERT AND ORIENTED X4; MOVES ALL EXTREMITIES AND FOLLOWS COMMANDS. AT APPROXIMATELY 0330, PT HAD PERIOD OF CONFUSION/NOTED NASAL CANNULA WAS OFF/ REPLACED AND WITHIN APPROX. 15-20 MIN, PT ALERT AND ORIENTED AND STATED FELT BETTER. CURRENTLY RESTING WITH EYES CLOSED, RESP EVEN AND NON LABORED. DENIES PAIN. ALL VS AND ASSESSMENTS CHARTED. WILL CONTINUE TO MONITOR.
[2020-10-02 06:49] LABS: Glucose Point of Care 248 mg/dL (70-110)
--- NOTE | 2020-10-02 07:00 | XR_ITS ---
WS: [id number] CHEST XRAY TECHNIQUE: Portable chest. CLINICAL INFORMATION: respiratory failure COMPARISON: September 29, 2020 FINDINGS: Small esophageal hiatal hernia. Heart: Cardiomegaly. Lungs: Diffuse bilateral interstitial pulmonary infiltrates slightly progressed since September 29 1. Tiny bilateral pleural effusions. Bones: Normal visualized bony structures. XR/XR chest 1V portable [id number] IMPRESSION: 1. Diffuse bilateral interstitial infiltrates slightly progressed since 2020 2. Tiny bilateral pleural effusions.
[2020-10-02 07:35] LABS: Magnesium 1.9 mg/dL (1.7-2.3)
--- NOTE | 2020-10-02 08:45 | PC.NURSE ---
medication rounding due to breakfast and then patient walking in [place] with PT
[2020-10-02] MEDS: albuterol 8 gm MDI 1 PUFF INHALATION ×2 (08:47→16:53)
[2020-10-02] MEDS: aspirin 81 mg EC Tablet PO (08:47)
[2020-10-02] MEDS: potassium chloride ER 20 mEq Tablet 40 MEQ PO (08:48)
[2020-10-02] MEDS: metOLazone 5 MG Tablet 10 MG PO (08:48)
[2020-10-02] MEDS: amiodarone 200 mg Tablet PO (08:48)
[2020-10-02] MEDS: levothyroxine 150 mcg Tablet 75 MCG PO (08:48)
[2020-10-02] MEDS: folic acid 1 mg Tablet PO (08:48)
[2020-10-02] MEDS: cyanocobalamin 1,000 mcg Tablet 1000 MCG PO (08:48)
[2020-10-02] MEDS: pantoprazole DR 40 mg Tablet PO (08:48)
[2020-10-02] MEDS: dilTIAZem ER (24HR) 120 mg Capsule PO (08:48)
[2020-10-02] MEDS: FUROsemide 10 mg/mL SDV 10mL 80 MG IVP ×2 (08:49→19:55)
[2020-10-02] MEDS: dilTIAZem ER (24HR) 300 mg Capsule PO (08:49)
[2020-10-02] MEDS: metoprolol tartrate 50 mg Tablet 125 MG PO ×2 (08:52→20:51)
--- NOTE | 2020-10-02 09:33 | DCPLANNER ---
IMM completed 10/02/20 @ 4199. Copy of rights given to pt.
[2020-10-02 12:08] LABS: Glucose Point of Care 261 mg/dL (70-110)
--- NOTE | 2020-10-02 12:40 | PC.NURSE ---
spoke with Dr aj regarding patient request to only take half the dose of insulin that was dosed off sliding scale due to patient not eating any lunch per her own accord. Instructions from Dr aj to give half dose per sliding scale.
[2020-10-02] MEDS: magnesium citrate Btl 296 mL 150 ML PO (14:05)
[2020-10-02] MEDS: levofloxacin-dextrose 5 % 500 MG/100 ML PREMIX 100 MG IV (14:10)
--- NOTE | 2020-10-02 15:28 | PM.PN ---
Subjective Subjective: Interval history: Patient continues to improve. Noted improvement in respiratory status. Noted small hard bm last evening. no chest pain, no fever, chills, nausea or vomiting. Medications: Reviewed: Yes Medication Review Details: Current Medications Acetaminophen (Acetaminophen 325 Mg Tablet) 650 mg PO Q6H PRN PRN Reason: Mild/Mod Pain Or Temp >/= 101 Hydrocodone Bitart/Acetaminophen (Hydrocodone-Acetaminophen 5-325 Mg Tablet) 1 tab PO Q6H PRN PRN Reason: pain Last Admin: 09/29/20 21:02 Dose: 1 tab Documented by: Albuterol Sulfate (Albuterol 8 Gm Mdi) 1 puff INHALATION Q6H.RESPIRATORY PRN PRN Reason: Shortness Of Breath Amiodarone HCl (Amiodarone 200 Mg Tablet) 200 mg PO Q12H [facility] Last Admin: 09/29/20 21:02 Dose: 200 mg Documented by: Aspirin (Aspirin 81 Mg Ec Tablet) 81 mg PO DAILY [facility] Last Admin: 09/29/20 10:19 Dose: 81 mg Documented by: Atorvastatin Calcium (Atorvastatin 40 Mg Tablet) 20 mg PO BEDTIME [facility] Last Admin: 09/29/20 21:02 Dose: 20 mg Documented by: Cyanocobalamin (Cyanocobalamin 1,000 Mcg Tablet) 1,000 mcg PO DAILY [facility] Last Admin: 09/29/20 10:19 Dose: 1,000 mcg Documented by: Dextrose (Dextrose 50% Syringe 50 Ml) 25 ml IVP ONCE PRN; Protocol PRN Reason: hypoglycemia protocol Dextrose (Dextrose 50% Syringe 50 Ml) 50 ml IVP PRN PRN; Protocol PRN Reason: hypoglycemia protocol Diltiazem HCl (Diltiazem Er (24hr) 120 Mg Capsule) 120 mg PO DAILY@0800 [facility] Last Admin: 09/30/20 07:42 Dose: 120 mg Documented by: Diltiazem HCl (Diltiazem Er (24hr) 300 Mg Capsule) 300 mg PO DAILY [facility] Last Admin: 09/29/20 10:19 Dose: 300 mg Documented by: Docusate Sodium (Docusate Sodium 100 Mg Capsule) 200 mg PO DAILY PRN PRN Reason: CONSTIPATION Last Admin: 09/29/20 16:57 Dose: 200 mg Documented by: Folic Acid (Folic Acid 1 Mg Tablet) 1 mg PO DAILY [facility] Last Admin: 09/29/20 10:19 Dose: 1 mg Documented by: Furosemide (Furosemide 10 Mg/Ml Sdv 10ml) 60 mg IVP Q12H [facility] Last Admin: 09/29/20 21:03 Dose: 60 mg Documented by: Glucagon (Glucagon 1 Mg/Ml Inj 1 Ml) 1 mg IM ONCE PRN; Protocol PRN Reason: Adult Acute Hypoglycemia Prot. Dextrose (D5w) 500 mls @ 100 mls/hr IV ONCE PRN; Protocol PRN Reason: Adult Acute Hypoglycemia Prot Levofloxacin/Dextrose (Levaquin-D5w) 500 mg in 100 mls @ 100 mls/hr IV Q48H [facility]; Protocol Last Admin: 09/28/20 14:15 Dose: 100 mls/hr Documented by: Dopamine HCl/Dextrose (Intropin Drip) 400 mg in 250 mls @ 16.499 mls/hr IV CONT [facility]; Protocol Last Admin: 09/30/20 04:58 Dose: 5 mcg/kg/min, 16.5 mls/hr Documented by: Insulin Aspart (Insulin Aspart 100 Unit/1 Ml) 0 unit SUBCUT WM&BEDTIME [facility]; Protocol Last Admin: 09/30/20 07:41 Dose: 8 unit Documented by: Insulin Glargine (Insulin Glargine 100 Units/1 Ml) 15 unit SUBCUT BEDTIME@20 [facility] Last Admin: 09/29/20 21:03 Dose: Not Given Documented by: Levothyroxine Sodium (Levothyroxine 150 Mcg Tablet) 75 mcg PO DAILY@08 [facility] Last Admin: 09/30/20 07:42 Dose: 75 mcg Documented by: Metolazone (Metolazone 5 Mg Tablet) 5 mg PO DAILY [facility] Last Admin: 09/29/20 21:03 Dose: 5 mg Documented by: Metoprolol Tartrate (Metoprolol Tartrate 50 Mg Tablet) 100 mg PO BID@0900,2100 [facility] Last Admin: 09/29/20 21:00 Dose: 100 mg Documented by: Ondansetron HCl (Ondansetron 2 Mg/Ml Sdv 2 Ml) 4 mg IVP Q6H PRN PRN Reason: NAUSEA AND VOMITING Pantoprazole Sodium (Pantoprazole Dr 40 Mg Tablet) 40 mg PO DAILY@08 [facility] Last Admin: 09/30/20 07:42 Dose: 40 mg Documented by: Fluticasone/Salmeterol (Fluticasone-Salmeterol 250-50 Diskus) 1 puff INHALATION BID.RESPIRATORY [facility] Last Admin: 09/29/20 21:24 Dose: 1 puff Documented by: Vitals/I&O/Wt Last Vital Signs Temp 98 F 10/02/20 05:45 Pulse 116 H 10/02/20 09:00 Resp 29 H 10/02/20 09:00 BP 143/83 10/02/20 09:00 Pulse Ox 90 10/02/20 09:00 10/02/20 10/02/20 10/02/20 06:59 14:59 22:59 Intake Total 469.975 / 959.975 240 / 240 Output Total 900 / 2500 1100 / 1100 Balance -430.025 / -1540.025 -860 / -860 Physical Exam Narrative: EXAM NARRATIVE: General exam no apparent distress on 4L of o2 via NC Neck is supple no lymphadenopathy or thyromegaly Cardiovascular irregular, irregular with no murmur. Lungs crackles bilaterally. No wheezing. Abdomen is soft nontender with positive bowel sounds. No obvious organomegaly Extremities no cyanosis or clubbing. 1+ edema is noted Urinary Catheter Management^: [place]: Cath Placed During This Visit: yes Reason for Continuing Indwelling Catheter: Acute Urinary Retention or Obstruction Urinary Catheter Date of Insertion: 09/25/20 Urinary Catheter Time of Insertion: 21:00 Data : 10/02/20 03:35 10/02/20 03:35 A&P Assessment and plan (1) ANSON (acute kidney injury): Status: Acute (2) Acute exacerbation of CHF (congestive heart failure): Status: Acute (3) Anemia: Status: Acute Qualifiers: Anemia type: unspecified type Qualified Code(s): D64.9 - Anemia, unspecified (4) Diabetes: Status: Acute (5) HTN (hypertension): Status: Acute Qualifiers: Hypertension type: essential hypertension Qualified Code(s): I10 - Essential (primary) hypertension (6) Hypoxemia: Status: Acute Additional A&P Information This is a 80-year-old female with history of congestive heart failure recently treated for Covid pneumonia presented to hospital with worsening shortness of breath. Acute on chronic HFpEF exacerbation - Cardiology on board - Lasix 80 mg IV BID - Metolazone 5mg daily - Kdur 40 meq po daily - Monitor I's and O's - ECHO EF 55-60%, RAP 15mmhg - Cardiology on board - Check wt daily - Record input and output - On dopamine gtt per cardiology Acute on chronic hypoxiemic respiratory failure - Nn 3L at home. currently on 4L - 02 saturation in high 80s - Will likely need home o2 eval at discharge - Etiology multi-factorial - Chest x-ray reviewed Acute kidney failure on chronic stage 3 kidney disease - Likely at new baseline - creatinine 2.5 - 2.4 today - Follow up with nephrology outpatient - Renal US noted - Renal dosing of meds - Monitor u/o AFIB with RVR - Cardiology on board - Rate difficult to control - may consider holding dopamine - Cardizem / Metoprolol - Continue to titrate meds per cardiology - No OAC due to recent anemia rq transfusion - On aspirin 81 mg PO daily - D/w cardiology - plan for BEST/CV in 1-2 days Diabetes Mellitus - QACHS checks - Sliding scale insulin - Lantus 15 units Hypertension - Hypotensive - On dopamine - Management per cardiology Elevated d dimer - VQ indeterminate, duplex neg for DVT in Aug - No OAC due to recent bleed Hypothyroidism - tsh stable in July - on replacement UTI - Enterococcus - On levaquin - Plan for total 7 days Constipation - Bowel regimen - Will add Colace 100mg PO BID - Miralax PRN GI PPX - PPI DVT:SCD Attestations Medical Necessity Statement*: Will continue hospitalization for management of respiratory failure, atrial fibrillation with plan for BEST cardioversion Time Spent in Patient Care: Greater than 35 minutes (>than 50% of time spent in counselling and/or direct pt care on unit). Coding Level of Care Code Acute Production Planning Manager for g Fwd Diagnoses ANSON (acute kidney injury) N17.9 Acute exacerbation of CHF (congestive heart failure) I50.9 Anemia D64.9 Anemia type: unspecified type Diabetes E11.9 HTN (hypertension) I10 Hypertension type: essential hypertension Hypoxemia R09.02
[2020-10-02 16:51] LABS: Glucose Point of Care 182 mg/dL (70-110)
--- NOTE | 2020-10-02 17:54 | PM.PN ---
Subjective Subjective: Interval history: Complains of abdominal fullness urine output overnight 2500 mL -1500 mL; length of stay -8L. Continues to be in atrial fibrillation with poorly controlled rates. Medications: Reviewed: Yes Medication Review Details: Current Medications Acetaminophen (Acetaminophen 325 Mg Tablet) 650 mg PO Q6H PRN PRN Reason: Mild/Mod Pain Or Temp >/= 101 Albuterol Sulfate (Albuterol 8 Gm Mdi) 1 puff INHALATION Q6H.RESPIRATORY PRN PRN Reason: Shortness Of Breath Last Admin: 10/02/20 16:53 Dose: 1 puff Documented by: Amiodarone HCl (Amiodarone 200 Mg Tablet) 200 mg PO DAILY [facility] Last Admin: 10/02/20 08:48 Dose: 200 mg Documented by: Apixaban (Apixaban 5 Mg Tablet) 2.5 mg PO Q12H [facility] Atorvastatin Calcium (Atorvastatin 40 Mg Tablet) 20 mg PO BEDTIME [facility] Last Admin: 10/01/20 20:40 Dose: 20 mg Documented by: Cyanocobalamin (Cyanocobalamin 1,000 Mcg Tablet) 1,000 mcg PO DAILY [facility] Last Admin: 10/02/20 08:48 Dose: 1,000 mcg Documented by: Dextrose (Dextrose 50% Syringe 50 Ml) 25 ml IVP ONCE PRN; Protocol PRN Reason: hypoglycemia protocol Dextrose (Dextrose 50% Syringe 50 Ml) 50 ml IVP PRN PRN; Protocol PRN Reason: hypoglycemia protocol Diltiazem HCl (Diltiazem Er (24hr) 120 Mg Capsule) 120 mg PO DAILY@0800 [facility] Last Admin: 10/02/20 08:48 Dose: 120 mg Documented by: Diltiazem HCl (Diltiazem Er (24hr) 300 Mg Capsule) 300 mg PO DAILY [facility] Last Admin: 10/02/20 08:49 Dose: 300 mg Documented by: Docusate Sodium (Docusate Sodium 100 Mg Capsule) 200 mg PO DAILY PRN PRN Reason: CONSTIPATION Last Admin: 09/30/20 18:12 Dose: 200 mg Documented by: Docusate Sodium (Docusate Sodium 100 Mg Capsule) 100 mg PO DAILY [facility] Folic Acid (Folic Acid 1 Mg Tablet) 1 mg PO DAILY [facility] Last Admin: 10/02/20 08:48 Dose: 1 mg Documented by: Furosemide (Furosemide 10 Mg/Ml Sdv 10ml) 80 mg IVP Q12H [facility] Last Admin: 10/02/20 08:49 Dose: 80 mg Documented by: Glucagon (Glucagon 1 Mg/Ml Inj 1 Ml) 1 mg IM ONCE PRN; Protocol PRN Reason: Adult Acute Hypoglycemia Prot. Dextrose (D5w) 500 mls @ 100 mls/hr IV ONCE PRN; Protocol PRN Reason: Adult Acute Hypoglycemia Prot Levofloxacin/Dextrose (Levaquin-D5w) 500 mg in 100 mls @ 100 mls/hr IV Q48H [facility]; Protocol Last Admin: 10/02/20 14:10 Dose: 100 mls/hr Documented by: Dopamine HCl/Dextrose (Intropin Drip) 400 mg in 250 mls @ 16.499 mls/hr IV CONT [facility]; Protocol Last Admin: 10/02/20 04:57 Dose: 5 mcg/kg/min, 16.5 mls/hr Documented by: Insulin Aspart (Insulin Aspart 100 Unit/1 Ml) 0 unit SUBCUT WM&BEDTIME [facility]; Protocol Last Admin: 10/02/20 17:18 Dose: Not Given Documented by: Insulin Glargine (Insulin Glargine 100 Units/1 Ml) 15 unit SUBCUT BEDTIME@20 [facility] Last Admin: 10/01/20 21:57 Dose: Not Given Documented by: Levothyroxine Sodium (Levothyroxine 150 Mcg Tablet) 75 mcg PO DAILY@08 [facility] Last Admin: 10/02/20 08:48 Dose: 75 mcg Documented by: Magnesium Hydroxide (Magnesium Hydroxide 30 Ml Udc) 30 ml PO BID PRN PRN Reason: CONSTIPATION Last Admin: 10/01/20 15:59 Dose: 30 ml Documented by: Metolazone (Metolazone 5 Mg Tablet) 10 mg PO DAILY [facility] Last Admin: 10/02/20 08:48 Dose: 10 mg Documented by: Metoprolol Tartrate (Metoprolol Tartrate 50 Mg Tablet) 125 mg PO BID@0900,2100 [facility] Last Admin: 10/02/20 08:52 Dose: 125 mg Documented by: Ondansetron HCl (Ondansetron 2 Mg/Ml Sdv 2 Ml) 4 mg IVP Q6H PRN PRN Reason: NAUSEA AND VOMITING Pantoprazole Sodium (Pantoprazole Dr 40 Mg Tablet) 40 mg PO DAILY@08 [facility] Last Admin: 10/02/20 08:48 Dose: 40 mg Documented by: Polyethylene Glycol (Polyethylene Glycol 3350 Pkt 17 Gm) 17 gm PO DAILY PRN PRN Reason: constipation Potassium Chloride (Potassium Chloride Er 20 Meq Tablet) 40 meq PO DAILY [facility] Last Admin: 10/02/20 08:48 Dose: 40 meq Documented by: Fluticasone/Salmeterol (Fluticasone-Salmeterol 250-50 Diskus) 1 puff INHALATION BID.RESPIRATORY [facility] Last Admin: 10/02/20 08:46 Dose: 1 puff Documented by: Vitals/I&O/Wt Last Vital Signs Temp 98 F 10/02/20 05:45 Pulse 110 H 10/02/20 16:58 Resp 20 H 10/02/20 16:58 BP 143/83 10/02/20 09:00 Pulse Ox 93 10/02/20 16:58 10/02/20 10/02/20 10/02/20 06:59 14:59 22:59 Intake Total 469.975 / 959.975 240 / 240 Output Total 900 / 2500 1100 / 1100 Balance -430.025 / -1540.025 -860 / -860 Physical Exam Narrative: EXAM NARRATIVE: Obese woman sitting in bed in no acute distress HEENT: Extraocular movement intact. Pupils equal round reactive to light. Mild pallor with no icterus. NECK: central trachea, elevated JVD, No carotid bruit. CARDIOVASCULAR SYSTEM: S1-S2 irregular, tachycardia +, of variable intensity no murmur rubs or gallops. RESPIRATORY SYSTEM: Decreased breath sounds at bilateral bases. No wheezes, coarse rhonchi+. No use of accessory muscles. ABDOMEN: Soft, nontender and nondistended. Normal bowel sounds present. EXTREMITIES: No cyanosis or clubbing. 2+ edema extending above knees. No signs of chronic venous insufficiency. DATABASE MANAGEMENT SPECIALIST: Patient is alert oriented ?3. No focal neurological deficits. SKIN: Normal turgor and temperature. No breakdown, rash or nail changes noted. PSYCH: Normal insight and judgment. Urinary Catheter Management^: [place]: Cath Placed During This Visit: yes Reason for Continuing Indwelling Catheter: Acute Urinary Retention or Obstruction Urinary Catheter Date of Insertion: 09/25/20 Urinary Catheter Time of Insertion: 21:00 Data : 10/02/20 03:35 10/02/20 03:35 A&P Assessment and plan (1) CHF (congestive heart failure): -Repeat echo with mild RV dysfunction and normal LV function. -Decompensated congestive heart failure. Continue Lasix 80 mg IV every 12 hours. -continue metolazone 10 mg p.o. daily x another day. -We will closely monitor intake and output and daily weight. -Given baseline chronic kidney disease, closely monitor renal function. -continue dopamine at 5 mcg/kg/min another day. Status: Acute Qualifiers: Heart failure type: diastolic Heart failure chronicity: acute on chronic Qualified Code(s): I50.33 - Acute on chronic diastolic (congestive) heart failure (2) Atrial fibrillation with controlled ventricular rate: A. fib with intermittent high rates. - Not on anticoagulation given anemia requiring blood transfusions. -Continue with rate control strategy given inability to anticoagulate for now. Continue cardizem 420 mg and amiodarone 200 mg daily and metoprolol tartrate 125 BID. I had a long discussion with Luiza and Ness. Risk and benefit of starting on anticoagulation were discussed with the patient given the need for converting to normal rhythm. Extremely difficult to rate control in spite of multiple AV josefina blockers. She remains in rapid ventricular response in spite of significant diuresis. - Decision was made to start on Eliquis 2.5 mg twice a day and plan for BEST cardioversion possibly on Thursday. Status: Acute (3) HTN (hypertension): Status: Acute Qualifiers: Hypertension type: essential hypertension Qualified Code(s): I10 - Essential (primary) hypertension (4) CKD (chronic kidney disease): Status: Acute Qualifiers: Chronic kidney disease stage: stage 4 (severe) Qualified Code(s): N18.4 - Chronic kidney disease, stage 4 (severe) (5) Anemia: Anemia -History of Hemoccult positive; unable to do further GI work-up as an outpatient given recurrent CHF exacerbation and A. fib with RVR. -Needed 1 unit of blood transfusion last admission and approximately 3 to 4 units in the admission before that. -No blood transfusions this hospitalization so far. Status: Acute Qualifiers: Anemia type: unspecified type Qualified Code(s): D64.9 - Anemia, unspecified Additional A&P Information Hypokalemia: replaced Elevated troponin in setting of decompensated congestive heart failure and underlying kidney disease. Hypoalbuminemia Constipation Thank you for allowing me to participate in patient's care. Please feel free to call with questions or concerns. Attestations Medical Necessity Statement*: Needs hospital stay for decompensated CHF. Time Spent in Patient Care: Greater than 35 minutes (>than 50% of time spent in counselling and/or direct pt care on unit). Coding Level of Care Code Acute Sample Maker for Maria G Fwd Diagnoses CHF (congestive heart failure) I50.33 Heart failure type: diastolic Heart failure chronicity: acute on chronic Atrial fibrillation with controlled ventricular rate I48.91 HTN (hypertension) I10 Hypertension type: essential hypertension CKD (chronic kidney disease) N18.4 Chronic kidney disease stage: stage 4 (severe) Anemia D64.9 Anemia type: unspecified type
[2020-10-02] MEDS: insulin glargine 100 units/1 mL 15 UNIT SUBCUT (20:51)
[2020-10-02] MEDS: atorvastatin 40 mg Tablet 20 MG PO (20:51)
[2020-10-02] MEDS: apixaban 5 mg Tablet 2.5 MG PO (20:51)
[2020-10-02 21:08] LABS: Glucose Point of Care 408 mg/dL (70-110)
[2020-10-03] VITALS (14 sets, daily range): BP systolic 91–144; BP diastolic 54–72; PULSE 87–111; RESP 14–26; TEMP 36.6–37.1; O2SAT 89–98
[2020-10-03 04:15] LABS: Basophils # 0.1 10^3/uL (0.0-0.1); Basophils % 0.8 %; Eosinophils # 0.2 10^3/uL (0.0-0.8); Eosinophils % 1.7 %; Hemoglobin 9.3 g/dL (11.5-15.3); Lymphocytes # 2.1 10^3/uL (0.8-4.8); Lymphocytes % 16.1 %; Mean Corpuscular Hemoglobin 29.6 pg (28.0-34.0); Mean Corpuscular Volume 95.5 fL (81-99); Mean Platelet Volume 9.8 fL (7.4-10.4); Monocytes # 0.8 10^3/uL (0.2-0.9); Monocytes % 5.7 %; Neutrophils # 9.93 10^3/uL (1.8-7.7); Neutrophils % 74.9 %; Nucleated Red Blood Cells % 0 %; Platelet Count 255 10^3/cmm (130-400); Red Blood Count 3.14 10^6/uL (4.1-5.3); Red Cell Distribution Width 15.6 % (12.1-15.1); White Blood Count 13.3 10^3/uL (4.0-10.0)
[2020-10-03 04:52] LABS: Blood Urea Nitrogen 34 mg/dL (8-23); Calcium 9.5 mg/dL (8.5-10.5); Carbon Dioxide 35 mmol/L (22-29); Chloride 89 mmol/L (98-107); Glucose 151 mg/dL (65-115); Osmolality Calculated 291 mOsm/kg (285-295); Sodium 135 mmol/L (136-145)
[2020-10-03] MEDS: FUROsemide 10 mg/mL SDV 10mL 80 MG IVP ×2 (06:05→21:30)
--- NOTE | 2020-10-03 06:56 | PM.PN ---
Subjective Subjective: Interval history: She had a bowel movement this morning and she feels better UO 2L, -800 ml Medications: Reviewed: Yes Medication Review Details: Current Medications Acetaminophen (Acetaminophen 325 Mg Tablet) 650 mg PO Q6H PRN PRN Reason: Mild/Mod Pain Or Temp >/= 101 Albuterol Sulfate (Albuterol 8 Gm Mdi) 1 puff INHALATION Q6H.RESPIRATORY PRN PRN Reason: Shortness Of Breath Last Admin: 10/02/20 16:53 Dose: 1 puff Documented by: Amiodarone HCl (Amiodarone 200 Mg Tablet) 200 mg PO DAILY [facility] Last Admin: 10/02/20 08:48 Dose: 200 mg Documented by: Apixaban (Apixaban 5 Mg Tablet) 2.5 mg PO Q12H [facility] Last Admin: 10/02/20 20:51 Dose: 2.5 mg Documented by: Atorvastatin Calcium (Atorvastatin 40 Mg Tablet) 20 mg PO BEDTIME [facility] Last Admin: 10/02/20 20:51 Dose: 20 mg Documented by: Cyanocobalamin (Cyanocobalamin 1,000 Mcg Tablet) 1,000 mcg PO DAILY [facility] Last Admin: 10/02/20 08:48 Dose: 1,000 mcg Documented by: Dextrose (Dextrose 50% Syringe 50 Ml) 25 ml IVP ONCE PRN; Protocol PRN Reason: hypoglycemia protocol Dextrose (Dextrose 50% Syringe 50 Ml) 50 ml IVP PRN PRN; Protocol PRN Reason: hypoglycemia protocol Diltiazem HCl (Diltiazem Er (24hr) 120 Mg Capsule) 120 mg PO DAILY@0800 [facility] Last Admin: 10/02/20 08:48 Dose: 120 mg Documented by: Diltiazem HCl (Diltiazem Er (24hr) 300 Mg Capsule) 300 mg PO DAILY [facility] Last Admin: 10/02/20 08:49 Dose: 300 mg Documented by: Docusate Sodium (Docusate Sodium 100 Mg Capsule) 200 mg PO DAILY PRN PRN Reason: CONSTIPATION Last Admin: 09/30/20 18:12 Dose: 200 mg Documented by: Docusate Sodium (Docusate Sodium 100 Mg Capsule) 100 mg PO DAILY [facility] Folic Acid (Folic Acid 1 Mg Tablet) 1 mg PO DAILY [facility] Last Admin: 10/02/20 08:48 Dose: 1 mg Documented by: Furosemide (Furosemide 10 Mg/Ml Sdv 10ml) 80 mg IVP Q12H [facility] Last Admin: 10/03/20 06:05 Dose: 80 mg Documented by: Glucagon (Glucagon 1 Mg/Ml Inj 1 Ml) 1 mg IM ONCE PRN; Protocol PRN Reason: Adult Acute Hypoglycemia Prot. Dextrose (D5w) 500 mls @ 100 mls/hr IV ONCE PRN; Protocol PRN Reason: Adult Acute Hypoglycemia Prot Levofloxacin/Dextrose (Levaquin-D5w) 500 mg in 100 mls @ 100 mls/hr IV Q48H [facility]; Protocol Last Infusion: 10/02/20 19:53 Dose: Infused Documented by: Dopamine HCl/Dextrose (Intropin Drip) 400 mg in 250 mls @ 9.9 mls/hr IV CONT [facility]; Protocol Last Admin: 10/02/20 19:52 Dose: 5 mcg/kg/min, 16.5 mls/hr Documented by: Insulin Aspart (Insulin Aspart 100 Unit/1 Ml) 0 unit SUBCUT WM&BEDTIME [facility]; Protocol Last Admin: 10/02/20 20:51 Dose: 16 unit Documented by: Insulin Glargine (Insulin Glargine 100 Units/1 Ml) 15 unit SUBCUT BEDTIME@20 [facility] Last Admin: 10/02/20 20:51 Dose: 15 unit Documented by: Levothyroxine Sodium (Levothyroxine 150 Mcg Tablet) 75 mcg PO DAILY@08 [facility] Last Admin: 10/02/20 08:48 Dose: 75 mcg Documented by: Magnesium Hydroxide (Magnesium Hydroxide 30 Ml Udc) 30 ml PO BID PRN PRN Reason: CONSTIPATION Last Admin: 10/01/20 15:59 Dose: 30 ml Documented by: Metolazone (Metolazone 5 Mg Tablet) 10 mg PO DAILY [facility] Last Admin: 10/02/20 08:48 Dose: 10 mg Documented by: Metoprolol Tartrate (Metoprolol Tartrate 50 Mg Tablet) 125 mg PO BID@0900,2100 [facility] Last Admin: 10/02/20 20:51 Dose: 125 mg Documented by: Ondansetron HCl (Ondansetron 2 Mg/Ml Sdv 2 Ml) 4 mg IVP Q6H PRN PRN Reason: NAUSEA AND VOMITING Pantoprazole Sodium (Pantoprazole Dr 40 Mg Tablet) 40 mg PO DAILY@08 [facility] Last Admin: 10/02/20 08:48 Dose: 40 mg Documented by: Polyethylene Glycol (Polyethylene Glycol 3350 Pkt 17 Gm) 17 gm PO DAILY PRN PRN Reason: constipation Potassium Chloride (Potassium Chloride Er 20 Meq Tablet) 40 meq PO DAILY [facility] Last Admin: 10/02/20 08:48 Dose: 40 meq Documented by: Fluticasone/Salmeterol (Fluticasone-Salmeterol 250-50 Diskus) 1 puff INHALATION BID.RESPIRATORY [facility] Last Admin: 10/02/20 19:48 Dose: 1 puff Documented by: Vitals/I&O/Wt Last Vital Signs Temp 98 F 10/03/20 04:00 Pulse 111 H 10/03/20 05:34 Resp 18 10/03/20 04:00 BP 91/67 10/03/20 04:00 Pulse Ox 95 10/03/20 04:00 10/02/20 10/02/20 10/03/20 14:59 22:59 06:59 Intake Total 240 / 240 826.125 / 1066.125 100 / 1166.125 Output Total 1100 / 1100 300 / 1400 600 / 2000 Balance -860 / -860 526.125 / -333.875 -500 / -833.875 Physical Exam Narrative: EXAM NARRATIVE: Obese woman sitting in bed in no acute distress HEENT: Extraocular movement intact. Pupils equal round reactive to light. Mild pallor with no icterus. NECK: central trachea, elevated JVD, No carotid bruit. CARDIOVASCULAR SYSTEM: S1-S2 irregular, tachycardia +, of variable intensity no murmur rubs or gallops. RESPIRATORY SYSTEM: Decreased breath sounds at bilateral bases. No wheezes, coarse occasional rhonchi+. No use of accessory muscles. ABDOMEN: Soft, nontender and nondistended. Normal bowel sounds present. EXTREMITIES: No cyanosis or clubbing. trace-1+ edema extending above knees. No signs of chronic venous insufficiency. FUSELAGE FRAMER: Patient is alert oriented ?3. No focal neurological deficits. SKIN: Normal turgor and temperature. No breakdown, rash or nail changes noted. PSYCH: Normal insight and judgment. Urinary Catheter Management^: [place]: Cath Placed During This Visit: yes Reason for Continuing Indwelling Catheter: Accurate Measurement of Urinary Output in Critically Ill Patients Urinary Catheter Date of Insertion: 09/25/20 Urinary Catheter Time of Insertion: 21:00 Data : 10/03/20 03:30 10/03/20 03:30 A&P Assessment and plan (1) CHF (congestive heart failure): -Repeat echo with mild RV dysfunction and normal LV function. -Decompensated congestive heart failure. Continue Lasix 80 mg IV every 12 hours. -continue metolazone 5 mg p.o. daily x another day. -We will closely monitor intake and output and daily weight. -Given baseline chronic kidney disease, closely monitor renal function. -wean off dopamine 5 mcg/kg/min. continue IV diuretics today and change to PO tomorrow. Status: Acute Qualifiers: Heart failure chronicity: acute on chronic Heart failure type: diastolic Qualified Code(s): I50.33 - Acute on chronic diastolic (congestive) heart failure (2) Atrial fibrillation with controlled ventricular rate: A. fib with intermittent high rates. - Not on anticoagulation given anemia requiring blood transfusions. -Continue with rate control strategy given inability to anticoagulate for now. Continue cardizem 420 mg and amiodarone 200 mg daily and metoprolol tartrate 125 BID. I had a long discussion with Luiza and Ness. Risk and benefit of starting on anticoagulation were discussed with the patient given the need for converting to normal rhythm. Extremely difficult to rate control in spite of multiple AV josefina blockers. She remains in rapid ventricular response in spite of significant diuresis. - Decision was made to start on Eliquis 2.5 mg twice a day and plan for BEST cardioversion on Thursday. Status: Acute (3) HTN (hypertension): Status: Acute Qualifiers: Hypertension type: essential hypertension Qualified Code(s): I10 - Essential (primary) hypertension (4) CKD (chronic kidney disease): Status: Acute Qualifiers: Chronic kidney disease stage: stage 4 (severe) Qualified Code(s): N18.4 - Chronic kidney disease, stage 4 (severe) (5) Anemia: Anemia -History of Hemoccult positive; unable to do further GI work-up as an outpatient given recurrent CHF exacerbation and A. fib with RVR. -Needed 1 unit of blood transfusion last admission and approximately 3 to 4 units in the admission before that. -No blood transfusions this hospitalization so far. Status: Acute Qualifiers: Anemia type: unspecified type Qualified Code(s): D64.9 - Anemia, unspecified Additional A&P Information Hypokalemia: replaced Elevated troponin in setting of decompensated congestive heart failure and underlying kidney disease. Hypoalbuminemia Constipation Thank you for allowing me to participate in patient's care. Please feel free to call with questions or concerns. Attestations Medical Necessity Statement*: Needs hospital stay for decompensated CHF and A. Fib with RVR. Time Spent in Patient Care: Greater than 35 minutes (>than 50% of time spent in counselling and/or direct pt care on unit). Coding Level of Care Code Acute Optical Engineering Technician for Victor Manuelg Fwd Diagnoses CHF (congestive heart failure) I50.33 Heart failure chronicity: acute on chronic Heart failure type: diastolic Atrial fibrillation with controlled ventricular rate I48.91 HTN (hypertension) I10 Hypertension type: essential hypertension CKD (chronic kidney disease) N18.4 Chronic kidney disease stage: stage 4 (severe) Anemia D64.9 Anemia type: unspecified type
[2020-10-03 07:38] LABS: Glucose Point of Care 149 mg/dL (70-110)
[2020-10-03] MEDS: albuterol 8 gm MDI 1 PUFF INHALATION (08:07)
[2020-10-03] MEDS: amiodarone 200 mg Tablet PO (08:52)
[2020-10-03] MEDS: docusate sodium 100 mg Capsule PO (08:52)
[2020-10-03] MEDS: potassium chloride ER 20 mEq Tablet 40 MEQ PO (08:52)
[2020-10-03] MEDS: metoprolol tartrate 50 mg Tablet 125 MG PO ×2 (08:52→21:28)
[2020-10-03] MEDS: pantoprazole DR 40 mg Tablet PO (08:52)
[2020-10-03] MEDS: cyanocobalamin 1,000 mcg Tablet 1000 MCG PO (08:52)
[2020-10-03] MEDS: metOLazone 5 MG Tablet PO (08:52)
[2020-10-03] MEDS: folic acid 1 mg Tablet PO (08:52)
[2020-10-03] MEDS: apixaban 5 mg Tablet 2.5 MG PO ×2 (08:53→21:29)
[2020-10-03] MEDS: dilTIAZem ER (24HR) 120 mg Capsule PO (08:53)
[2020-10-03] MEDS: dilTIAZem ER (24HR) 300 mg Capsule PO (08:53)
--- NOTE | 2020-10-03 10:46 | PC.NURSE ---
missed dose of levothyroxine due to pharmacy delay and patient cares Dr Hernandez notified no new instructions at this time
[2020-10-03 10:52] LABS: Glucose Point of Care 339 mg/dL (70-110)
--- NOTE | 2020-10-03 13:09 | P.PN_ITS ---
Subjective Subjective: Interval history: Patient was stable overnight. No new complaints this morning. No fever, chills, nausea vomiting. Patient was noted to have about 1.5 L out. Medications: Reviewed: Yes Medication Review Details: Current Medications Acetaminophen (Acetaminophen 325 Mg Tablet) 650 mg PO Q6H PRN PRN Reason: Mild/Mod Pain Or Temp >/= 101 Hydrocodone Bitart/Acetaminophen (Hydrocodone-Acetaminophen 5-325 Mg Tablet) 1 tab PO Q6H PRN PRN Reason: pain Last Admin: 09/29/20 21:02 Dose: 1 tab Documented by: Albuterol Sulfate (Albuterol 8 Gm Mdi) 1 puff INHALATION Q6H.RESPIRATORY PRN PRN Reason: Shortness Of Breath Amiodarone HCl (Amiodarone 200 Mg Tablet) 200 mg PO Q12H [facility] Last Admin: 09/29/20 21:02 Dose: 200 mg Documented by: Aspirin (Aspirin 81 Mg Ec Tablet) 81 mg PO DAILY [facility] Last Admin: 09/29/20 10:19 Dose: 81 mg Documented by: Atorvastatin Calcium (Atorvastatin 40 Mg Tablet) 20 mg PO BEDTIME [facility] Last Admin: 09/29/20 21:02 Dose: 20 mg Documented by: Cyanocobalamin (Cyanocobalamin 1,000 Mcg Tablet) 1,000 mcg PO DAILY [facility] Last Admin: 09/29/20 10:19 Dose: 1,000 mcg Documented by: Dextrose (Dextrose 50% Syringe 50 Ml) 25 ml IVP ONCE PRN; Protocol PRN Reason: hypoglycemia protocol Dextrose (Dextrose 50% Syringe 50 Ml) 50 ml IVP PRN PRN; Protocol PRN Reason: hypoglycemia protocol Diltiazem HCl (Diltiazem Er (24hr) 120 Mg Capsule) 120 mg PO DAILY@0800 [facility] Last Admin: 09/30/20 07:42 Dose: 120 mg Documented by: Diltiazem HCl (Diltiazem Er (24hr) 300 Mg Capsule) 300 mg PO DAILY [facility] Last Admin: 09/29/20 10:19 Dose: 300 mg Documented by: Docusate Sodium (Docusate Sodium 100 Mg Capsule) 200 mg PO DAILY PRN PRN Reason: CONSTIPATION Last Admin: 09/29/20 16:57 Dose: 200 mg Documented by: Folic Acid (Folic Acid 1 Mg Tablet) 1 mg PO DAILY [facility] Last Admin: 09/29/20 10:19 Dose: 1 mg Documented by: Furosemide (Furosemide 10 Mg/Ml Sdv 10ml) 60 mg IVP Q12H [facility] Last Admin: 09/29/20 21:03 Dose: 60 mg Documented by: Glucagon (Glucagon 1 Mg/Ml Inj 1 Ml) 1 mg IM ONCE PRN; Protocol PRN Reason: Adult Acute Hypoglycemia Prot. Dextrose (D5w) 500 mls @ 100 mls/hr IV ONCE PRN; Protocol PRN Reason: Adult Acute Hypoglycemia Prot Levofloxacin/Dextrose (Levaquin-D5w) 500 mg in 100 mls @ 100 mls/hr IV Q48H [facility]; Protocol Last Admin: 09/28/20 14:15 Dose: 100 mls/hr Documented by: Dopamine HCl/Dextrose (Intropin Drip) 400 mg in 250 mls @ 16.499 mls/hr IV CONT [facility]; Protocol Last Admin: 09/30/20 04:58 Dose: 5 mcg/kg/min, 16.5 mls/hr Documented by: Insulin Aspart (Insulin Aspart 100 Unit/1 Ml) 0 unit SUBCUT WM&BEDTIME [facility]; Protocol Last Admin: 09/30/20 07:41 Dose: 8 unit Documented by: Insulin Glargine (Insulin Glargine 100 Units/1 Ml) 15 unit SUBCUT BEDTIME@20 [facility] Last Admin: 09/29/20 21:03 Dose: Not Given Documented by: Levothyroxine Sodium (Levothyroxine 150 Mcg Tablet) 75 mcg PO DAILY@08 [facility] Last Admin: 09/30/20 07:42 Dose: 75 mcg Documented by: Metolazone (Metolazone 5 Mg Tablet) 5 mg PO DAILY [facility] Last Admin: 09/29/20 21:03 Dose: 5 mg Documented by: Metoprolol Tartrate (Metoprolol Tartrate 50 Mg Tablet) 100 mg PO BID@0900,2100 [facility] Last Admin: 09/29/20 21:00 Dose: 100 mg Documented by: Ondansetron HCl (Ondansetron 2 Mg/Ml Sdv 2 Ml) 4 mg IVP Q6H PRN PRN Reason: NAUSEA AND VOMITING Pantoprazole Sodium (Pantoprazole Dr 40 Mg Tablet) 40 mg PO DAILY@08 [facility] Last Admin: 09/30/20 07:42 Dose: 40 mg Documented by: Fluticasone/Salmeterol (Fluticasone-Salmeterol 250-50 Diskus) 1 puff INHALATION BID.RESPIRATORY NIKO Last Admin: 09/29/20 21:24 Dose: 1 puff Documented by: Vitals/I&O/Wt Last Vital Signs Temp 98.7 F 10/03/20 08:23 Pulse 105 H 10/03/20 08:23 Resp 22 H 10/03/20 08:23 BP 112/58 10/03/20 08:23 Pulse Ox 93 10/03/20 08:23 10/02/20 10/03/20 10/03/20 22:59 06:59 14:59 Intake Total 826.125 / 1066.125 100 / 1166.125 430.525 / 430.525 Output Total 300 / 1400 600 / 2000 550 / 550 Balance 526.125 / -333.875 -500 / -833.875 -119.475 / -119.475 Physical Exam Narrative: EXAM NARRATIVE: General exam no apparent distress on 4L of o2 via NC Neck is supple no lymphadenopathy or thyromegaly Cardiovascular irregular, irregular with no murmur. Lungs crackles bilaterally. No wheezing. Abdomen is soft nontender with positive bowel sounds. No obvious organomegaly Extremities no cyanosis or clubbing. 1+ edema is noted Cardio: COMMON NORMALS: regular rate RATE: regular rate Urinary Catheter Management^: Corral: Cath Placed During This Visit: yes Reason for Continuing Indwelling Catheter: Accurate Measurement of Urinary Output in Critically Ill Patients Urinary Catheter Date of Insertion: 09/25/20 Urinary Catheter Time of Insertion: 21:00 Data : 10/03/20 03:30 10/03/20 03:30 A&P Assessment and plan (1) ANSON (acute kidney injury): Status: Acute (2) Acute exacerbation of CHF (congestive heart failure): Status: Acute (3) Anemia: Hemoglobin stable. Stool heme positive. Needs outpatient work-up. No significant clinical evidence for brisk GI bleed. Avoid anticoagulants Status: Acute Qualifiers: Anemia type: unspecified type Qualified Code(s): D64.9 - Anemia, unspecified (4) Diabetes: Sliding scale insulin Status: Acute (5) HTN (hypertension): Hold ARB Continue other antihypertensives Status: Acute Qualifiers: Hypertension type: essential hypertension Qualified Code(s): I10 - Essential (primary) hypertension (6) Hypoxemia: Status: Acute Additional A&P Information This is a 80-year-old female with history of congestive heart failure recently treated for Covid pneumonia presented to hospital with worsening shortness of breath. Acute on chronic HFpEF exacerbation - Cardiology on board - Lasix 80 mg IV BID - Metolazone 5mg daily - Kdur 40 meq po daily - Monitor I's and O's - ( negative 93 ml ) - ECHO EF 55-60%, RAP 15mmhg - Cardiology on board - Check wt daily - Record input and output - On dopamine gtt per cardiology - dose decreased Acute on chronic hypoxiemic respiratory failure - Nn 3L at home. currently on 3-4L - Will likely need home o2 eval at discharge - Etiology multi-factorial - Chest x-ray reviewed Acute kidney failure on chronic stage 3 kidney disease - Likely at new baseline - creatinine 2.5 - 2.4 today - Follow up with nephrology outpatient - Renal US noted - Renal dosing of meds - Monitor u/o - 0.54 ml/kg/hr AFIB with RVR - Cardiology on board - Rate difficult to control - may consider holding dopamine - Cardizem / Metoprolol - Continue to titrate meds per cardiology - Started on Eliquis 2.5 mg PO BID - D/C aspirin 81 mg PO daily - D/w cardiology - plan for BEST/CV in 1-2 days Diabetes Mellitus - QACHS checks - Sliding scale insulin - Lantus 15 units Hypertension - Hypotensive - On dopamine - Management per cardiology Elevated d dimer - VQ indeterminate, duplex neg for DVT in Aug - No OAC due to recent bleed Hypothyroidism - tsh stable in July - on replacement UTI - Enterococcus - Completed levaquin - Monitor off abx Constipation - Resolved - Bowel regimen - Will add Colace 100mg PO BID - Miralax PRN GI PPX - PPI DVT:SCD, eliquis 2.5 mg PO BID Attestations Medical Necessity Statement*: Will require further hospitalization for management of atrial fibrillation with rapid ventricular response, fluid overload requiring IV Lasix. Time Spent in Patient Care: Greater than 35 minutes (>than 50% of time spent in counselling and/or direct pt care on unit) . Coding Level of Care Code Acute Face Worker for Chg Fwd Diagnoses ANSON (acute kidney injury) N17.9 Acute exacerbation of CHF (congestive heart failure) I50.9 Anemia D64.9 Anemia type: unspecified type Diabetes E11.9 HTN (hypertension) I10 Hypertension type: essential hypertension Hypoxemia R09.02
--- NOTE | 2020-10-03 13:21 | PC.NURSE ---
patient refused noon dose of insulin stated, I am afraid that is to much i did not eat any lunch I am not hungry patient encouraged to eat although continued to refuse meal. Patient BG 396 at noon check.
--- NOTE | 2020-10-03 16:10 | PC.NURSE ---
Patient incontinent of bowel this afternoon patient taken to shower and assisted with bathing, during patient noted to have a pressure injury to right proximal buttocks optifoam placed and moisture barrier applied patient educated about the need to change positions frequently and go from side to side to stay off site. Dr aj notified of pressure injury. new instructions to monitor an provide wound care as needed. Daughter Ness notified, daughter explained to this nurse the wound is not new it has been there for 1 month since she had broken her ankle. Daughter also explained to this nurse she had told the hospital staff
[2020-10-03 16:53] LABS: Glucose Point of Care 370 mg/dL (70-110)
--- NOTE | 2020-10-03 19:13 | PC.NURSE ---
spoke with Dr. Hernandez about patient concerns about taking 14 unit of novolog due to fear of bottoming out her out Mary okayed to give the full dose and monitor patient agreed however was fear full and was left with an ensure
--- NOTE | 2020-10-03 19:55 | PC.NURSE ---
Received bedside report from Jasmina Cadet RN. Patient reports having incontinence of stool. Assisted patient up to bedside commode. Linen changed. Patient cleaned and gown changed. Discussed BEST with cardioversion scheduled for coming Thursday. Patient verbalized understanding. Patient denies pain or other needs at this time. No distress observed.
[2020-10-03] MEDS: atorvastatin 40 mg Tablet 20 MG PO (21:29)
[2020-10-03] MEDS: insulin glargine 100 units/1 mL 15 UNIT SUBCUT (21:29)
--- NOTE | 2020-10-03 21:38 | PC.NURSE ---
Medication administration delay due to mock code scenaria on 2A
[2020-10-03 23:36] LABS: Glucose Point of Care 324 mg/dL (70-110)
[2020-10-04] VITALS (10 sets, daily range): BP systolic 105–120; BP diastolic 52–95; PULSE 77–103; RESP 13–20; TEMP 36.4–36.9; O2SAT 94–100
[2020-10-04] MEDS: dextrose 50% syringe 50 mL IVP (02:42)
--- NOTE | 2020-10-04 02:57 | PC.NURSE ---
LOW BLOOD SUGAR with symptoms. Making rounds. Found patient slumped in bed. Patient stated, sugar low. Patient cool, clammy to the touch and lethargic. Answers questions appropriately. Performed accucheck found blood sugar to be 37. Aide at bedside providing orange juice with added sugar. Informed Dr Capone. Administered 1 amp of D50 as ordered. Patient requested peanut butter which was provided. Patient able to eat without difficulty or indication of choking. Patient reports feeling much better. Patient current blood sugar is 297. Patient requested to have sugars checked frequently. Patient has been refusing doses of insulins stating, my sugar is going to drop to low. Patient stated, I told you so. Patient's blood sugar at bedtime was 324. Lantus and sliding scale given as ordered and documented. Ice cream was provided at bedtime to help prevent drop in blood sugar. Dr Capone was informed of improved blood sugar. No new orders received.
[2020-10-04 03:11] LABS: Glucose Point of Care 37 mg/dL (70-110)
[2020-10-04 03:11] LABS: Glucose Point of Care 297 mg/dL (70-110)
[2020-10-04 03:30] LABS: Basophils # 0.1 10^3/uL (0.0-0.1); Basophils % 0.6 %; Eosinophils # 0.3 10^3/uL (0.0-0.8); Eosinophils % 2.2 %; Hematocrit 28.1 % (37.0-47.0); Hemoglobin 8.6 g/dL (11.5-15.3); Lymphocytes # 1.7 10^3/uL (0.8-4.8); Lymphocytes % 14.6 %; Mean Corpuscular HGB Conc 30.6 g/dL (30.0-36.0); Mean Corpuscular Hemoglobin 29.8 pg (28.0-34.0); Mean Corpuscular Volume 97.2 fL (81-99); Mean Platelet Volume 9.7 fL (7.4-10.4); Monocytes # 0.8 10^3/uL (0.2-0.9); Monocytes % 6.6 %; Neutrophils # 8.66 10^3/uL (1.8-7.7); Neutrophils % 74.9 %; Nucleated Red Blood Cells % 0 %; Platelet Count 245 10^3/cmm (130-400); Red Blood Count 2.89 10^6/uL (4.1-5.3); Red Cell Distribution Width 15.5 % (12.1-15.1); White Blood Count 11.6 10^3/uL (4.0-10.0)
[2020-10-04 03:47] LABS: Alanine Aminotransferase 10 U/L (0-33); Albumin Level 3.3 g/dL (3.5-5.2); Alkaline Phosphatase 84 IU/L (35-105); Anion Gap 12.1 (5-19); Aspartate Amino Transferase 11 U/L (0-32); Blood Urea Nitrogen 33 mg/dL (8-23); Carbon Dioxide 38 mmol/L (22-29); Chloride 87 mmol/L (98-107); Globulin 3.2 g/dL (1.3-4.6); Glucose 141 mg/dL (65-115); Osmolality Calculated 288 mOsm/kg (285-295); Potassium 3.1 mmol/L (3.5-5.1); Sodium 134 mmol/L (136-145); Total Bilirubin 0.4 mg/dL (0.15-1.2); Total Protein 6.5 g/dL (6.6-8.7)
--- NOTE | 2020-10-04 04:03 | PC.NURSE ---
Blood sugar 169 Patient is currently asymptomatic. Patient reports feeling much better. Dr Capone placed orders changing insulin dosing.
[2020-10-04 04:07] LABS: Calcium 9.5 mg/dL (8.5-10.5)
[2020-10-04 04:08] LABS: Glucose Point of Care 169 mg/dL (70-110)
[2020-10-04] MEDS: FUROsemide 10 mg/mL SDV 10mL 80 MG IVP (06:26)
--- NOTE | 2020-10-04 06:36 | CT_ITS ---
WS: [id number] CT CHEST TECHNIQUE: Noncontrast CT of the chest with coronal and sagittal reformatted images. CLINICAL INFORMATION: SOB, post COVID COMPARISON: CT March 12, 2019 DLP: 707.[address] scans at [facility] use at least one of these dose optimization techniques: automat ed exposure control; mA and/or kV adjustment per patient size (includes targeted exams where dose is matched to clinical indication); or iterative reconstruction. FINDINGS: Moderate right and small left pleural effusions progressed since March 10, 2019. Bibasilar compressive atelectasis. Shallow inspiration. Diffuse hazy bilateral groundglass infiltrates with interstitial t hickening. Infiltrates are worse in the perihilar regions. No focal consolidation. Aortic calcification. Normal caliber thoracic aorta. Coronary calcification. No axillary lymphadenopa thy. Adrenal glands are normal. Splenic artery calcification. Small esophageal hiatal hernia. CT/CT chest wo con [id number] IMPRESSION: 1. Moderate right and small left pleural effusions with compressive atelectasi s in the lung bases. 2. Diffuse bilateral hazy groundglass infiltrates with interstitial thickening . Findings compatible with pneumonia, consider CoVID 19. 3. No focal consolidation. 4. Tiny pericardial effusion/pericardial thickening.
[2020-10-04 06:54] LABS: Glucose Point of Care 118 mg/dL (70-110)
--- NOTE | 2020-10-04 07:00 | XR_ITS ---
WS: [id number] Portable AP semiupright chest, 10/04/2020 Clinical Data: respiratory failure Comparison: Portable chest, 10/02/2020. Findings: The diffuse bilateral interstitial pulmonary opacities remain unchanged. The heart remains enlarged. Monitor leads on the chest wall. The aortic arch shows calcification. XR/XR chest 1V portable [id number] Impression: No change in cardiomegaly and bilateral interstitial opacities.
--- NOTE | 2020-10-04 07:08 | PC.NURSE ---
80MG DOSE OF IV LASIX GIVEN AT ~ 0630 BY RADIOISOTOPE TECHNICIAN. NOTIFIED DR. NOEL.
[2020-10-04] MEDS: dilTIAZem ER (24HR) 120 mg Capsule PO (07:32)
[2020-10-04] MEDS: lidocaine 1% 5 ML in potassium chloride premix 100 ML 25 ML IV (07:32)
[2020-10-04] MEDS: levothyroxine 150 mcg Tablet 75 MCG PO (07:33)
[2020-10-04] MEDS: pantoprazole DR 40 mg Tablet PO (07:33)
[2020-10-04] MEDS: amiodarone 200 mg Tablet PO (09:02)
[2020-10-04] MEDS: dilTIAZem ER (24HR) 300 mg Capsule PO (09:02)
[2020-10-04] MEDS: metOLazone 5 MG Tablet PO (09:03)
[2020-10-04] MEDS: folic acid 1 mg Tablet PO (09:03)
[2020-10-04] MEDS: apixaban 5 mg Tablet 2.5 MG PO ×2 (09:03→22:19)
[2020-10-04] MEDS: cyanocobalamin 1,000 mcg Tablet 1000 MCG PO (09:03)
[2020-10-04] MEDS: albuterol 8 gm MDI 1 PUFF INHALATION (09:14)
[2020-10-04] MEDS: potassium chloride ER 20 mEq Tablet 40 MEQ PO (09:48)
[2020-10-04] MEDS: metoprolol tartrate 50 mg Tablet 125 MG PO ×2 (09:48→22:17)
--- NOTE | 2020-10-04 09:59 | PM.PN ---
Subjective Subjective: Interval history: LOS -10 L, She was sleeping at the time of evaluation. Medications: Reviewed: Yes Medication Review Details: Current Medications Acetaminophen (Acetaminophen 325 Mg Tablet) 650 mg PO Q6H PRN PRN Reason: Mild/Mod Pain Or Temp >/= 101 Albuterol Sulfate (Albuterol 8 Gm Mdi) 1 puff INHALATION Q6H.RESPIRATORY PRN PRN Reason: Shortness Of Breath Last Admin: 10/04/20 09:14 Dose: 1 puff Documented by: Amiodarone HCl (Amiodarone 200 Mg Tablet) 200 mg PO DAILY [facility] Last Admin: 10/04/20 09:02 Dose: 200 mg Documented by: Apixaban (Apixaban 5 Mg Tablet) 2.5 mg PO Q12H [facility] Last Admin: 10/04/20 09:03 Dose: 2.5 mg Documented by: Atorvastatin Calcium (Atorvastatin 40 Mg Tablet) 20 mg PO BEDTIME [facility] Last Admin: 10/03/20 21:29 Dose: 20 mg Documented by: Cyanocobalamin (Cyanocobalamin 1,000 Mcg Tablet) 1,000 mcg PO DAILY [facility] Last Admin: 10/04/20 09:03 Dose: 1,000 mcg Documented by: Dextrose (Dextrose 50% Syringe 50 Ml) 25 ml IVP ONCE PRN; Protocol PRN Reason: hypoglycemia protocol Dextrose (Dextrose 50% Syringe 50 Ml) 50 ml IVP PRN PRN; Protocol PRN Reason: hypoglycemia protocol Last Admin: 10/04/20 02:42 Dose: 50 ml Documented by: Diltiazem HCl (Diltiazem Er (24hr) 120 Mg Capsule) 120 mg PO DAILY@0800 [facility] Last Admin: 10/04/20 07:32 Dose: 120 mg Documented by: Diltiazem HCl (Diltiazem Er (24hr) 300 Mg Capsule) 300 mg PO DAILY [facility] Last Admin: 10/04/20 09:02 Dose: 300 mg Documented by: Docusate Sodium (Docusate Sodium 100 Mg Capsule) 200 mg PO DAILY PRN PRN Reason: CONSTIPATION Last Admin: 09/30/20 18:12 Dose: 200 mg Documented by: Docusate Sodium (Docusate Sodium 100 Mg Capsule) 100 mg PO DAILY [facility] Last Admin: 10/04/20 09:03 Dose: Not Given Documented by: Folic Acid (Folic Acid 1 Mg Tablet) 1 mg PO DAILY [facility] Last Admin: 10/04/20 09:03 Dose: 1 mg Documented by: Furosemide (Furosemide 40 Mg Tablet) 80 mg PO BID@08,16 [facility] Last Admin: 10/04/20 07:08 Dose: Not Given Documented by: Glucagon (Glucagon 1 Mg/Ml Inj 1 Ml) 1 mg IM ONCE PRN; Protocol PRN Reason: Adult Acute Hypoglycemia Prot. Dextrose (D5w) 500 mls @ 100 mls/hr IV ONCE PRN; Protocol PRN Reason: Adult Acute Hypoglycemia Prot Dopamine HCl/Dextrose (Intropin Drip) 400 mg in 250 mls @ 9.9 mls/hr IV CONT [facility]; Protocol Last Admin: 10/04/20 09:49 Dose: Not Given Documented by: Lidocaine HCl 5 ml/ Potassium (Chloride) 105 mls @ 25 mls/hr IV ONCE ONE Stop: 10/04/20 10:44 Last Admin: 10/04/20 07:32 Dose: 25 mls/hr Documented by: Insulin Aspart (Insulin Aspart 100 Unit/1 Ml) 0 unit SUBCUT BEDTIME [facility]; Protocol Insulin Aspart (Insulin Aspart 100 Unit/1 Ml) 0 unit SUBCUT TIDWM [facility]; Protocol Last Admin: 10/04/20 07:11 Dose: Not Given Documented by: Insulin Glargine (Insulin Glargine 100 Units/1 Ml) 5 unit SUBCUT BEDTIME@20 [facility] Levothyroxine Sodium (Levothyroxine 150 Mcg Tablet) 75 mcg PO DAILY@08 [facility] Last Admin: 10/04/20 07:33 Dose: 75 mcg Documented by: Magnesium Hydroxide (Magnesium Hydroxide 30 Ml Udc) 30 ml PO BID PRN PRN Reason: CONSTIPATION Last Admin: 10/01/20 15:59 Dose: 30 ml Documented by: Metolazone (Metolazone 5 Mg Tablet) 5 mg PO DAILY [facility] Last Admin: 10/04/20 09:03 Dose: 5 mg Documented by: Metoprolol Tartrate (Metoprolol Tartrate 50 Mg Tablet) 125 mg PO BID@0900,2100 [facility] Last Admin: 10/04/20 09:48 Dose: 125 mg Documented by: Ondansetron HCl (Ondansetron 2 Mg/Ml Sdv 2 Ml) 4 mg IVP Q6H PRN PRN Reason: NAUSEA AND VOMITING Pantoprazole Sodium (Pantoprazole Dr 40 Mg Tablet) 40 mg PO DAILY@08 [facility] Last Admin: 10/04/20 07:33 Dose: 40 mg Documented by: Polyethylene Glycol (Polyethylene Glycol 3350 Pkt 17 Gm) 17 gm PO DAILY PRN PRN Reason: constipation Potassium Chloride (Potassium Chloride Er 20 Meq Tablet) 40 meq PO DAILY [facility] Last Admin: 10/04/20 09:48 Dose: 40 meq Documented by: Fluticasone/Salmeterol (Fluticasone-Salmeterol 250-50 Diskus) 1 puff INHALATION BID.RESPIRATORY [facility] Last Admin: 10/04/20 09:13 Dose: 1 puff Documented by: Vitals/I&O/Wt Last Vital Signs Temp 97.6 F 10/04/20 08:04 Pulse 103 H 10/04/20 09:14 Resp 18 10/04/20 09:14 BP 120/95 10/04/20 08:04 Pulse Ox 99 10/04/20 09:14 10/03/20 10/04/20 10/04/20 22:59 06:59 14:59 Intake Total 240 / 720.355 150 / 870.355 Output Total 800 / 1775 Balance 240 / -254.645 -650 / -904.645 Physical Exam Narrative: EXAM NARRATIVE: Obese woman sitting in bed in no acute distress HEENT: Extraocular movement intact. Pupils equal round reactive to light. Mild pallor with no icterus. NECK: central trachea, elevated JVD, No carotid bruit. CARDIOVASCULAR SYSTEM: S1-S2 irregular, of variable intensity no murmur rubs or gallops. RESPIRATORY SYSTEM: Decreased breath sounds at bilateral bases. No wheezes, coarse rhonchi+. No use of accessory muscles. ABDOMEN: Soft, nontender and nondistended. Normal bowel sounds present. EXTREMITIES: No cyanosis or clubbing. trace-1+ edema extending to knees. No signs of chronic venous insufficiency. EMPLOYEE WELLNESS/FITNESS COORDINATOR: Patient is alert oriented ?3. No focal neurological deficits. SKIN: Normal turgor and temperature. PSYCH: Normal insight and judgment. Urinary Catheter Management^: Corral: Cath Placed During This Visit: yes Reason for Continuing Indwelling Catheter: Accurate Measurement of Urinary Output in Critically Ill Patients Urinary Catheter Date of Insertion: 09/25/20 Urinary Catheter Time of Insertion: 21:00 Data : 10/04/20 03:15 10/04/20 03:15 A&P Assessment and plan (1) CHF (congestive heart failure): -Repeat echo with mild RV dysfunction and normal LV function. -Decompensated congestive heart failure. Continue Lasix 80 mg IV every 12 hours. -continue metolazone 5 mg p.o. daily. -We will closely monitor intake and output and daily weight. -Given baseline chronic kidney disease, closely monitor renal function. - continue IV diuretics today and change to PO tomorrow. Status: Acute Qualifiers: Heart failure chronicity: acute on chronic Heart failure type: diastolic Qualified Code(s): I50.33 - Acute on chronic diastolic (congestive) heart failure (2) Atrial fibrillation with controlled ventricular rate: A. fib with intermittent high rates. - Not on anticoagulation given anemia requiring blood transfusions. -Continue with rate control strategy given inability to anticoagulate for now. Continue cardizem 420 mg and amiodarone 200 mg daily and metoprolol tartrate 125 BID. I had a long discussion with Luiza and Ness. Risk and benefit of starting on anticoagulation were discussed with the patient given the need for converting to normal rhythm. Extremely difficult to rate control in spite of multiple AV josefina blockers. She remains in rapid ventricular response in spite of significant diuresis. - Decision was made to start on Eliquis 2.5 mg twice a day and plan for BEST cardioversion on Thursday. Status: Acute (3) HTN (hypertension): Status: Acute Qualifiers: Hypertension type: essential hypertension Qualified Code(s): I10 - Essential (primary) hypertension (4) CKD (chronic kidney disease): Status: Acute Qualifiers: Chronic kidney disease stage: stage 4 (severe) Qualified Code(s): N18.4 - Chronic kidney disease, stage 4 (severe) (5) Anemia: Anemia -History of Hemoccult positive; unable to do further GI work-up as an outpatient given recurrent CHF exacerbation and A. fib with RVR. -Needed 1 unit of blood transfusion last admission and approximately 3 to 4 units in the admission before that. -No blood transfusions this hospitalization so far. Status: Acute Qualifiers: Anemia type: unspecified type Qualified Code(s): D64.9 - Anemia, unspecified Additional A&P Information Bilateral pleural effusion : Will possibly need thoracentesis. Hypokalemia: replaced Elevated troponin in setting of decompensated congestive heart failure and underlying kidney disease. Hypoalbuminemia H/O COVID PNA Thank you for allowing me to participate in patient's care. Please feel free to call with questions or concerns. Attestations Medical Necessity Statement*: Needs hospital stay for decompensated CHF and A. Fib with RVR. Time Spent in Patient Care: Greater than 35 minutes (>than 50% of time spent in counselling and/or direct pt care on unit). Coding Level of Care Code Acute Machine Cleaner for Maria G Grissom Diagnoses CHF (congestive heart failure) I50.33 Heart failure chronicity: acute on chronic Heart failure type: diastolic Atrial fibrillation with controlled ventricular rate I48.91 HTN (hypertension) I10 Hypertension type: essential hypertension CKD (chronic kidney disease) N18.4 Chronic kidney disease stage: stage 4 (severe) Anemia D64.9 Anemia type: unspecified type
--- NOTE | 2020-10-04 10:38 | DCPLANNER ---
IMM completed on 10/04/20 @ 1477. Reviewed pt copy on pt rights.
--- NOTE | 2020-10-04 11:36 | PM.PN ---
Subjective Subjective: Interval history: Patient was noted have hypoglycemic episode overnight otherwise did not have any additional complaints. Medications: Reviewed: Yes Medication Review Details: Current Medications Acetaminophen (Acetaminophen 325 Mg Tablet) 650 mg PO Q6H PRN PRN Reason: Mild/Mod Pain Or Temp >/= 101 Hydrocodone Bitart/Acetaminophen (Hydrocodone-Acetaminophen 5-325 Mg Tablet) 1 tab PO Q6H PRN PRN Reason: pain Last Admin: 09/29/20 21:02 Dose: 1 tab Documented by: Albuterol Sulfate (Albuterol 8 Gm Mdi) 1 puff INHALATION Q6H.RESPIRATORY PRN PRN Reason: Shortness Of Breath Amiodarone HCl (Amiodarone 200 Mg Tablet) 200 mg PO Q12H [facility] Last Admin: 09/29/20 21:02 Dose: 200 mg Documented by: Aspirin (Aspirin 81 Mg Ec Tablet) 81 mg PO DAILY [facility] Last Admin: 09/29/20 10:19 Dose: 81 mg Documented by: Atorvastatin Calcium (Atorvastatin 40 Mg Tablet) 20 mg PO BEDTIME [facility] Last Admin: 09/29/20 21:02 Dose: 20 mg Documented by: Cyanocobalamin (Cyanocobalamin 1,000 Mcg Tablet) 1,000 mcg PO DAILY [facility] Last Admin: 09/29/20 10:19 Dose: 1,000 mcg Documented by: Dextrose (Dextrose 50% Syringe 50 Ml) 25 ml IVP ONCE PRN; Protocol PRN Reason: hypoglycemia protocol Dextrose (Dextrose 50% Syringe 50 Ml) 50 ml IVP PRN PRN; Protocol PRN Reason: hypoglycemia protocol Diltiazem HCl (Diltiazem Er (24hr) 120 Mg Capsule) 120 mg PO DAILY@0800 [facility] Last Admin: 09/30/20 07:42 Dose: 120 mg Documented by: Diltiazem HCl (Diltiazem Er (24hr) 300 Mg Capsule) 300 mg PO DAILY [facility] Last Admin: 09/29/20 10:19 Dose: 300 mg Documented by: Docusate Sodium (Docusate Sodium 100 Mg Capsule) 200 mg PO DAILY PRN PRN Reason: CONSTIPATION Last Admin: 09/29/20 16:57 Dose: 200 mg Documented by: Folic Acid (Folic Acid 1 Mg Tablet) 1 mg PO DAILY [facility] Last Admin: 09/29/20 10:19 Dose: 1 mg Documented by: Furosemide (Furosemide 10 Mg/Ml Sdv 10ml) 60 mg IVP Q12H [facility] Last Admin: 09/29/20 21:03 Dose: 60 mg Documented by: Glucagon (Glucagon 1 Mg/Ml Inj 1 Ml) 1 mg IM ONCE PRN; Protocol PRN Reason: Adult Acute Hypoglycemia Prot. Dextrose (D5w) 500 mls @ 100 mls/hr IV ONCE PRN; Protocol PRN Reason: Adult Acute Hypoglycemia Prot Levofloxacin/Dextrose (Levaquin-D5w) 500 mg in 100 mls @ 100 mls/hr IV Q48H [facility]; Protocol Last Admin: 09/28/20 14:15 Dose: 100 mls/hr Documented by: Dopamine HCl/Dextrose (Intropin Drip) 400 mg in 250 mls @ 16.499 mls/hr IV CONT [facility]; Protocol Last Admin: 09/30/20 04:58 Dose: 5 mcg/kg/min, 16.5 mls/hr Documented by: Insulin Aspart (Insulin Aspart 100 Unit/1 Ml) 0 unit SUBCUT WM&BEDTIME [facility]; Protocol Last Admin: 09/30/20 07:41 Dose: 8 unit Documented by: Insulin Glargine (Insulin Glargine 100 Units/1 Ml) 15 unit SUBCUT BEDTIME@20 [facility] Last Admin: 09/29/20 21:03 Dose: Not Given Documented by: Levothyroxine Sodium (Levothyroxine 150 Mcg Tablet) 75 mcg PO DAILY@08 [facility] Last Admin: 09/30/20 07:42 Dose: 75 mcg Documented by: Metolazone (Metolazone 5 Mg Tablet) 5 mg PO DAILY [facility] Last Admin: 09/29/20 21:03 Dose: 5 mg Documented by: Metoprolol Tartrate (Metoprolol Tartrate 50 Mg Tablet) 100 mg PO BID@0900,2100 [facility] Last Admin: 09/29/20 21:00 Dose: 100 mg Documented by: Ondansetron HCl (Ondansetron 2 Mg/Ml Sdv 2 Ml) 4 mg IVP Q6H PRN PRN Reason: NAUSEA AND VOMITING Pantoprazole Sodium (Pantoprazole Dr 40 Mg Tablet) 40 mg PO DAILY@08 [facility] Last Admin: 09/30/20 07:42 Dose: 40 mg Documented by: Fluticasone/Salmeterol (Fluticasone-Salmeterol 250-50 Diskus) 1 puff INHALATION BID.RESPIRATORY [facility] Last Admin: 09/29/20 21:24 Dose: 1 puff Documented by: Vitals/I&O/Wt Last Vital Signs Temp 97.6 F 10/04/20 08:04 Pulse 103 H 10/04/20 09:14 Resp 18 10/04/20 09:14 BP 120/95 10/04/20 08:04 Pulse Ox 99 10/04/20 09:14 10/03/20 10/04/20 10/04/20 22:59 06:59 14:59 Intake Total 240 / 720.355 150 / 870.355 Output Total 800 / 1775 Balance 240 / -254.645 -650 / -904.645 Physical Exam Narrative: EXAM NARRATIVE: General exam no apparent distress on 4L of o2 via NC Neck is supple no lymphadenopathy or thyromegaly Cardiovascular irregular, irregular with no murmur. Lungs crackles bilaterally. No wheezing. Abdomen is soft nontender with positive bowel sounds. No obvious organomegaly Extremities no cyanosis or clubbing. 1+ edema is noted Cardio: COMMON NORMALS: regular rate RATE: regular rate Urinary Catheter Management^: [place]: Cath Placed During This Visit: yes Reason for Continuing Indwelling Catheter: Accurate Measurement of Urinary Output in Critically Ill Patients Urinary Catheter Date of Insertion: 09/25/20 Urinary Catheter Time of Insertion: 21:00 Data : 10/04/20 03:15 10/04/20 03:15 A&P Assessment and plan (1) ANSON (acute kidney injury): Status: Acute (2) Acute exacerbation of CHF (congestive heart failure): Status: Acute (3) Anemia: Hemoglobin stable. Stool heme positive. Needs outpatient work-up. No significant clinical evidence for brisk GI bleed. Avoid anticoagulants Status: Acute Qualifiers: Anemia type: unspecified type Qualified Code(s): D64.9 - Anemia, unspecified (4) Diabetes: Sliding scale insulin Status: Acute (5) HTN (hypertension): Hold ARB Continue other antihypertensives Status: Acute Qualifiers: Hypertension type: essential hypertension Qualified Code(s): I10 - Essential (primary) hypertension (6) Hypoxemia: Status: Acute Additional A&P Information This is a 80-year-old female with history of congestive heart failure recently treated for Covid pneumonia presented to hospital with worsening shortness of breath. AFIB with RVR - Cardiology on board - Cardizem / Metoprolol - Continue to titrate meds per cardiology - Started on Eliquis 2.5 mg PO BID - D/C aspirin 81 mg PO daily - Currently off dopamine per cardiology - D/w cardiology - plan for BEST/CV in AM Acute on chronic HFpEF exacerbation - Cardiology on board - Lasix 80 mg IV BID - Metolazone 5mg daily - Kdur 40 meq po daily - additional 20 MEQ ordered for PM today - Monitor I's and O's - ( negative 93 ml ) - ECHO EF 55-60%, RAP 15mmhg - Cardiology on board - Check wt daily - Record input and output Acute on chronic hypoxiemic respiratory failure - Nn 3L at home. currently on 3-4L - Will likely need home o2 eval at discharge - Etiology multi-factorial - Chest x-ray reviewed Acute kidney failure on chronic stage 3 kidney disease - Likely at new baseline - creatinine 2.5 - 2.4 -> 2.5 - Follow up with nephrology outpatient - Renal US noted - Renal dosing of meds - Monitor u/o - 0.54 ml/kg/hr Anemia - recently had sig drop rq transfusion - Resumed on low dose eliquis - Benefit outweigh risk - Will monitor daily h/h - Currently stable - Hgb 8.6 today Diabetes Mellitus with hypoglycemic episodes - QACHS checks - Sliding scale insulin - Lantus dose decreased Hypertension - Meds as above - Management per cardiology Elevated d dimer - VQ indeterminate, duplex neg for DVT in Aug - Restarted on eliquis 2.5 mg PO BID Hypothyroidism - tsh stable in July - on replacement UTI - Enterococcus - Completed levaquin - Monitor off abx Constipation - Resolved - Bowel regimen - Will add Colace 100mg PO BID - Miralax PRN GI PPX - PPI DVT:SCD, eliquis 2.5 mg PO BID Attestations Medical Necessity Statement*: Will require further hospitalization for management of AFib with RVR with a plan for best guided cardioversion. Time Spent in Patient Care: Greater than 35 minutes (>than 50% of time spent in counselling and/or direct pt care on unit). Coding Level of Care Code Acute Pitch Flaker for g Fwd Diagnoses ANSON (acute kidney injury) N17.9 Acute exacerbation of CHF (congestive heart failure) I50.9 Anemia D64.9 Anemia type: unspecified type Diabetes E11.9 HTN (hypertension) I10 Hypertension type: essential hypertension Hypoxemia R09.02
[2020-10-04 13:00] LABS: Glucose Point of Care 146 mg/dL (70-110)
[2020-10-04] MEDS: potassium chloride ER 20 mEq Tablet PO (17:02)
[2020-10-04 17:03] LABS: Glucose Point of Care 284 mg/dL (70-110)
[2020-10-04] MEDS: FUROsemide 40 mg Tablet 80 MG PO (17:03)
--- NOTE | 2020-10-04 17:04 | PC.NURSE ---
patient blood sugar 284. patient is willing to receive 10 units of novolog.
[2020-10-04 20:31] LABS: Glucose Point of Care 271 mg/dL (70-110)
[2020-10-04] MEDS: atorvastatin 40 mg Tablet 20 MG PO (22:18)
[2020-10-04] MEDS: insulin glargine 100 units/1 mL 5 UNIT SUBCUT (22:20)
[2020-10-05] VITALS (37 sets, daily range): BP systolic 91–143; BP diastolic 48–74; PULSE 60–117; RESP 12–24; TEMP 36.4–36.8; O2SAT 91–100
[2020-10-05 07:23] LABS: Glucose Point of Care 140 mg/dL (70-110)
[2020-10-05] MEDS: levothyroxine 150 mcg Tablet 75 MCG PO (08:22)
[2020-10-05] MEDS: metoprolol tartrate 50 mg Tablet 125 MG PO (08:23)
[2020-10-05] MEDS: FUROsemide 40 mg Tablet 80 MG PO (08:24)
[2020-10-05] MEDS: cyanocobalamin 1,000 mcg Tablet 1000 MCG PO (08:24)
[2020-10-05] MEDS: pantoprazole DR 40 mg Tablet PO (08:25)
[2020-10-05] MEDS: potassium chloride ER 20 mEq Tablet 40 MEQ PO (08:25)
[2020-10-05] MEDS: dilTIAZem ER (24HR) 120 mg Capsule PO (08:26)
[2020-10-05] MEDS: metOLazone 5 MG Tablet PO (08:26)
[2020-10-05] MEDS: amiodarone 200 mg Tablet PO (08:27)
[2020-10-05] MEDS: folic acid 1 mg Tablet PO (08:27)
[2020-10-05] MEDS: dilTIAZem ER (24HR) 300 mg Capsule PO (08:33)
[2020-10-05] MEDS: apixaban 5 mg Tablet 2.5 MG PO ×2 (08:39→21:04)
[2020-10-05 09:50] LABS: Anion Gap 10.9 (5-19); Blood Urea Nitrogen 34 mg/dL (8-23); Calcium 9.2 mg/dL (8.5-10.5); Carbon Dioxide 38 mmol/L (22-29); Chloride 88 mmol/L (98-107); Glucose 141 mg/dL (65-115); Osmolality Calculated 286 mOsm/kg (285-295); Potassium 3.9 mmol/L (3.5-5.1); Sodium 133 mmol/L (136-145)
[2020-10-05 11:38] LABS: Glucose Point of Care 149 mg/dL (70-110)
--- NOTE | 2020-10-05 11:42 | PM.PN ---
Subjective Subjective: Interval history: No new clinical complaints overnight. No fever, chills, nausea or vomiting. Patient denied chest pain or dyspenea Medications: Reviewed: Yes Medication Review Details: Current Medications Acetaminophen (Acetaminophen 325 Mg Tablet) 650 mg PO Q6H PRN PRN Reason: Mild/Mod Pain Or Temp >/= 101 Hydrocodone Bitart/Acetaminophen (Hydrocodone-Acetaminophen 5-325 Mg Tablet) 1 tab PO Q6H PRN PRN Reason: pain Last Admin: 09/29/20 21:02 Dose: 1 tab Documented by: Albuterol Sulfate (Albuterol 8 Gm Mdi) 1 puff INHALATION Q6H.RESPIRATORY PRN PRN Reason: Shortness Of Breath Amiodarone HCl (Amiodarone 200 Mg Tablet) 200 mg PO Q12H [facility] Last Admin: 09/29/20 21:02 Dose: 200 mg Documented by: Aspirin (Aspirin 81 Mg Ec Tablet) 81 mg PO DAILY [facility] Last Admin: 09/29/20 10:19 Dose: 81 mg Documented by: Atorvastatin Calcium (Atorvastatin 40 Mg Tablet) 20 mg PO BEDTIME [facility] Last Admin: 09/29/20 21:02 Dose: 20 mg Documented by: Cyanocobalamin (Cyanocobalamin 1,000 Mcg Tablet) 1,000 mcg PO DAILY [facility] Last Admin: 09/29/20 10:19 Dose: 1,000 mcg Documented by: Dextrose (Dextrose 50% Syringe 50 Ml) 25 ml IVP ONCE PRN; Protocol PRN Reason: hypoglycemia protocol Dextrose (Dextrose 50% Syringe 50 Ml) 50 ml IVP PRN PRN; Protocol PRN Reason: hypoglycemia protocol Diltiazem HCl (Diltiazem Er (24hr) 120 Mg Capsule) 120 mg PO DAILY@0800 [facility] Last Admin: 09/30/20 07:42 Dose: 120 mg Documented by: Diltiazem HCl (Diltiazem Er (24hr) 300 Mg Capsule) 300 mg PO DAILY [facility] Last Admin: 09/29/20 10:19 Dose: 300 mg Documented by: Docusate Sodium (Docusate Sodium 100 Mg Capsule) 200 mg PO DAILY PRN PRN Reason: CONSTIPATION Last Admin: 09/29/20 16:57 Dose: 200 mg Documented by: Folic Acid (Folic Acid 1 Mg Tablet) 1 mg PO DAILY [facility] Last Admin: 09/29/20 10:19 Dose: 1 mg Documented by: Furosemide (Furosemide 10 Mg/Ml Sdv 10ml) 60 mg IVP Q12H [facility] Last Admin: 09/29/20 21:03 Dose: 60 mg Documented by: Glucagon (Glucagon 1 Mg/Ml Inj 1 Ml) 1 mg IM ONCE PRN; Protocol PRN Reason: Adult Acute Hypoglycemia Prot. Dextrose (D5w) 500 mls @ 100 mls/hr IV ONCE PRN; Protocol PRN Reason: Adult Acute Hypoglycemia Prot Levofloxacin/Dextrose (Levaquin-D5w) 500 mg in 100 mls @ 100 mls/hr IV Q48H [facility]; Protocol Last Admin: 09/28/20 14:15 Dose: 100 mls/hr Documented by: Dopamine HCl/Dextrose (Intropin Drip) 400 mg in 250 mls @ 16.499 mls/hr IV CONT [facility]; Protocol Last Admin: 09/30/20 04:58 Dose: 5 mcg/kg/min, 16.5 mls/hr Documented by: Insulin Aspart (Insulin Aspart 100 Unit/1 Ml) 0 unit SUBCUT WM&BEDTIME [facility]; Protocol Last Admin: 09/30/20 07:41 Dose: 8 unit Documented by: Insulin Glargine (Insulin Glargine 100 Units/1 Ml) 15 unit SUBCUT BEDTIME@20 [facility] Last Admin: 09/29/20 21:03 Dose: Not Given Documented by: Levothyroxine Sodium (Levothyroxine 150 Mcg Tablet) 75 mcg PO DAILY@08 [facility] Last Admin: 09/30/20 07:42 Dose: 75 mcg Documented by: Metolazone (Metolazone 5 Mg Tablet) 5 mg PO DAILY [facility] Last Admin: 09/29/20 21:03 Dose: 5 mg Documented by: Metoprolol Tartrate (Metoprolol Tartrate 50 Mg Tablet) 100 mg PO BID@0900,2100 [facility] Last Admin: 09/29/20 21:00 Dose: 100 mg Documented by: Ondansetron HCl (Ondansetron 2 Mg/Ml Sdv 2 Ml) 4 mg IVP Q6H PRN PRN Reason: NAUSEA AND VOMITING Pantoprazole Sodium (Pantoprazole Dr 40 Mg Tablet) 40 mg PO DAILY@08 [facility] Last Admin: 09/30/20 07:42 Dose: 40 mg Documented by: Fluticasone/Salmeterol (Fluticasone-Salmeterol 250-50 Diskus) 1 puff INHALATION BID.RESPIRATORY [facility] Last Admin: 09/29/20 21:24 Dose: 1 puff Documented by: Vitals/I&O/Wt Last Vital Signs Temp 98.3 F 10/05/20 08:00 Pulse 108 H 10/05/20 08:00 Resp 18 10/05/20 08:00 BP 138/69 10/05/20 08:00 Pulse Ox 94 10/05/20 08:00 10/04/20 10/05/20 10/05/20 22:59 06:59 14:59 Intake Total 680 / 800 100 / 900 240 / 240 Output Total 250 / 1750 450 / 2200 Balance 430 / -950 -350 / -1300 240 / 240 Physical Exam Narrative: EXAM NARRATIVE: General exam no apparent distress on 4L of o2 via NC Neck is supple no lymphadenopathy or thyromegaly Cardiovascular irregular, irregular with no murmur. Lungs crackles bilaterally. No wheezing. Abdomen is soft nontender with positive bowel sounds. No obvious organomegaly Extremities no cyanosis or clubbing. 1+ edema is noted Cardio: COMMON NORMALS: regular rate RATE: regular rate Urinary Catheter Management^: [place]: Cath Placed During This Visit: yes Reason for Continuing Indwelling Catheter: Accurate Measurement of Urinary Output in Critically Ill Patients Urinary Catheter Date of Insertion: 09/25/20 Urinary Catheter Time of Insertion: 21:00 Data : 10/04/20 03:15 10/05/20 09:18 A&P Assessment and plan (1) ANSON (acute kidney injury): Status: Acute (2) Acute exacerbation of CHF (congestive heart failure): Status: Acute (3) Anemia: Hemoglobin stable. Stool heme positive. Needs outpatient work-up. No significant clinical evidence for brisk GI bleed. Avoid anticoagulants Status: Acute Qualifiers: Anemia type: unspecified type Qualified Code(s): D64.9 - Anemia, unspecified (4) Diabetes: Sliding scale insulin Status: Acute (5) HTN (hypertension): Hold ARB Continue other antihypertensives Status: Acute Qualifiers: Hypertension type: essential hypertension Qualified Code(s): I10 - Essential (primary) hypertension (6) Hypoxemia: Status: Acute Additional A&P Information This is a 80-year-old female with history of congestive heart failure recently treated for Covid pneumonia presented to hospital with worsening shortness of breath. AFIB with RVR - Cardiology on board - Cardizem / Metoprolol - Continue to titrate meds per cardiology - Eliquis 2.5 mg PO BID - D/w cardiology - plan for BEST/CV today - NPO Acute on chronic HFpEF exacerbation with moderate R.pleural effusion - Cardiology on board - Lasix 80 mg IV BID - Metolazone 5mg daily - Kdur 40 meq po daily - Monitor I's and O's - noted negative 1.3L balance - ECHO EF 55-60%, RAP 15mmhg - Cardiology on board - Check wt daily - Record input and output - D/w Pulmonary for possible thoracentesis Acute on chronic hypoxiemic respiratory failure - Nn 3L at home. currently on 3-4L - Will likely need home o2 eval at discharge - Etiology multi-factorial - Chest x-ray reviewed Acute kidney failure on chronic stage 3 kidney disease - Likely at new baseline - creatinine 2.5 - 2.4 -> 2.5 - . 2.8 - Follow up with nephrology outpatient - Renal US noted - Renal dosing of meds - Monitor u/o - 0.76 ml/kg/hr Anemia - recently had sig drop rq transfusion - Resumed on low dose eliquis - Benefit outweigh risk - Will monitor daily h/h - Currently stable - Hgb 8.6 - repeat in AM - No evidnece of bleedin g Diabetes Mellitus with hypoglycemic episodes - QACHS checks - Sliding scale insulin - Lantus 5 units qhs Hypertension - Meds as above - Management per cardiology Elevated d dimer - VQ indeterminate, duplex neg for DVT in Aug - Restarted on eliquis 2.5 mg PO BID Hypothyroidism - tsh stable in July - Synthroid 75 mcg po daily UTI - Enterococcus - Completed levaquin - Monitor off abx Constipation - Resolved - Bowel regimen - Will add Colace 100mg PO BID - Miralax PRN GI PPX - PPI DVT:SCD, eliquis 2.5 mg PO BID Attestations Medical Necessity Statement*: Will require further hospitalization for mangement of hypoxia, afib and renal failure Time Spent in Patient Care: Greater than 35 minutes (>than 50% of time spent in counselling and/or direct pt care on unit). Coding Level of Care Code Acute Mobile Solutions Architect for Chg Fwd Diagnoses ANSON (acute kidney injury) N17.9 Acute exacerbation of CHF (congestive heart failure) I50.9 Anemia D64.9 Anemia type: unspecified type Diabetes E11.9 HTN (hypertension) I10 Hypertension type: essential hypertension Hypoxemia R09.02
--- NOTE | 2020-10-05 11:57 | P.ANESASSM_ITS ---
Pre-Anesthetic Assessment Pre-Anesthetic Assessment: Height/Weight: Height 1.57 m Weight 87.997 kg Temp Pulse Resp BP Pulse Ox 98.3 F 108 H 18 138/69 94 10/05/20 08:00 10/05/20 08:00 10/05/20 08:00 10/05/20 08:00 10/05/20 08:00 Preop Diagnosis: Afib Proposed Procedure: Operation Date: 10/05/20 12:00 Proposed Procedures p BEST(Not Applicable) - Lory Egan MD Familial anesthetic complications: none Was Beta Cammy taken within 24 hours: N/A Last Intake: 23:00 Social: Social History: No alcohol and No tobacco Exam: Pre-Anes Outpt Exam: alert, oriented x 3, clear to auscultation bilaterally and regular rate & rhythm (Irreg HB, AFib) Airway: Submandibular: WNL Cervical ROM: WNL MP: 2 Dentition: Partials Pulmonary: Pulmonary: SOB Comments: -C-O-V-I-D- -i-n- -N-o-v- CV/HEM: CV/HEM: Afib, CAD and HTN : : Chronic renal Insufficiency Hepatic: Hepatic: None reported GI: GI: None reported Metabolic: Metabolic: DM and Thyroid Neuropsych: Neuropsych: None reported Anesthetic Plan: ASA status: 3 Anesthesia: MAC Risk of > 500 ml blood loss (7ml/kg in children): No Meds/Allergies Current Medications: Current Medications Generic Name Dose Route Start Last Admin Trade Name Freq PRN Reason Stop Dose Admin Albuterol Sulfate 1 puff 09/25/20 17:38 10/04/20 09:14 Albuterol 8 Gm M di INHALATION 1 puff Q6H.RESPIRATORY P RN Administration Shortness Of [place] th Amiodarone HCl 200 mg 10/01/20 09:00 10/05/20 08:27 Amiodarone 200 M g Tablet PO 200 mg DAILY NIKO Administration Apixaban 2.5 mg 10/02/20 21:00 10/05/20 08:39 Apixaban 5 Mg Ta blet PO 2.5 mg Q12H NIKO Administration Atorvastatin Calci um 20 mg 09/25/20 21:00 10/04/20 22:18 Atorvastatin 40 Mg Tablet PO 20 mg BEDTIME NIKO Administration Cyanocobalamin 1,000 mcg 09/25/20 09:00 10/05/20 08:24 Cyanocobalamin 1 ,000 Mcg Tablet PO 1,000 mcg DAILY NIOK Administration Dextrose 50 ml 09/25/20 17:40 10/04/20 02:42 Dextrose 50% Syr marychuy 50 Ml IVP 50 ml PRN PRN Administration hypoglycemia prot ocol Protocol Diltiazem HCl 120 mg 09/28/20 08:00 10/05/20 08:26 Diltiazem Er (24 hr) 120 Mg Capsule PO 120 mg DAILY@0800 NIKO Administration Diltiazem HCl 300 mg 09/28/20 09:00 10/05/20 08:33 Diltiazem Er (24 hr) 300 Mg Capsule PO 300 mg DAILY NIKO Administration Docusate Sodium 200 mg 09/28/20 09:44 09/30/20 18:12 Docusate Sodium 100 Mg Capsule PO 200 mg DAILY PRN Administration CONSTIPATION Docusate Sodium 100 mg 10/03/20 09:00 10/05/20 08:29 Docusate Sodium 100 Mg Capsule PO Not Given DAILY NIKO Folic Acid 1 mg 09/25/20 09:00 10/05/20 08:27 Folic Acid 1 Mg Tablet PO 1 mg DAILY NIKO Administration Furosemide 80 mg 10/04/20 08:00 10/05/20 08:24 Furosemide 40 Mg Tablet PO 80 mg BID@08,16 NIKO Administration Dopamine HCl/Dextr ose 400 mg in 250 mls @ 9.9 mls/hr 09/27/20 10:30 10/05/20 10:04 Intropin Drip IV Not Given CONT [facility] Protocol 3 MCG/KG/MIN Insulin Aspart 0 unit 10/04/20 21:00 10/04/20 22:20 Insulin Aspart 1 00 Unit/1 Ml SUBCUT 6 unit BEDTIME NIKO Administration Protocol Insulin Aspart 0 unit 10/04/20 08:00 10/05/20 08:27 Insulin Aspart 1 00 Unit/1 Ml SUBCUT Not Given TIDWM [facility] Protocol Insulin Glargine 5 unit 10/04/20 20:00 10/04/20 22:20 Insulin Glargine 100 Units/1 Ml SUBCUT 5 unit BEDTIME@20 NIKO Administration Levothyroxine Sodi um 75 mcg 09/26/20 08:00 10/05/20 08:22 Levothyroxine 15 0 Mcg Tablet PO 75 mcg DAILY@08 NIKO Administration Magnesium Hydroxid e 30 ml 10/01/20 14:50 10/01/20 15:59 Magnesium Hydrox shonda 30 Ml Udc PO 30 ml BID PRN Administration CONSTIPATION Metolazone 5 mg 10/03/20 09:00 10/05/20 08:26 Metolazone 5 Mg Tablet PO 5 mg DAILY NIKO Administration Metoprolol Tartrat e 125 mg 09/30/20 21:00 10/05/20 08:23 Metoprolol Tartr ate 50 Mg Tablet PO 125 mg BID@0900,2100 NIKO Administration Pantoprazole Sodiu m 40 mg 09/26/20 08:00 10/05/20 08:[address] 40 Mg Tablet PO 40 mg DAILY@08 NIKO Administration Potassium Chloride 40 meq 10/02/20 09:00 10/05/20 08:25 Potassium Chlori de Er 20 Meq Table t PO 40 meq DAILY NIKO Administration Fluticasone/Salmet pino 1 puff 09/25/20 20:00 10/05/20 07:16 Fluticasone-Salm eterol 250-50 Disk us INHALATION Not Given BID.RESPIRATORY S CH PFSH Anesthesia PFSH: Medical History Atrial fibrillation CHF (congestive heart failure) CKD (chronic kidney disease) COVID-19 Diagnosed 08/02/2020 Diabetes GERD (gastroesophageal reflux disease) HTN (hypertension) Hypothyroidism PVC (premature ventricular contraction) Surgical History S/P cataract extraction S/P cervical spinal fusion S/P tonsillectomy Status post tubal ligation Family History Mother Hypertension Grandmother Hypertension MATERNAL Other Cancer Diabetes Social History Smoking and tobacco status: former smoker Alcohol intake: never Household members: spouse Marital status: Data Anesthesia CBC & Chem 7: 10/04/20 03:15 10/05/20 09:18 Other Labs: Laboratory Results - last 48 hr 10/03/20 10/03/20 10/04/20 16:14 20:34 02:38 WBC RBC Hgb Hct MCV MCH MCHC RDW Plt Count MPV Neut % (Auto) Lymph % (Auto) [place] % (Auto) Eos % (Auto) Baso % (Auto) Neut # (Auto) Lymph # (Auto) [place] # (Auto) Eos # (Auto) Baso # (Auto) Nucleated RBC % (auto) Nucleated RBCs # Sodium Potassium Chloride Carbon Dioxide Anion Gap BUN Creatinine GFR Calculation Glucose POC Glucose 370 H 324 H 37 L* Calculated Osmolality Calcium Magnesium Total Bilirubin AST ALT Alkaline Phosphatase Total Protein Albumin Globulin 10/04/20 10/04/20 10/04/20 02:49 03:15 03:15 WBC 11.6 H RBC 2.89 L Hgb 8.6 L Hct 28.1 L MCV 97.2 MCH 29.8 MCHC 30.6 RDW 15.5 H Plt Count 245 MPV 9.7 Neut % (Auto) 74.9 Lymph % (Auto) 14.6 [place] % (Auto) 6.6 Eos % (Auto) 2.2 Baso % (Auto) 0.6 Neut # (Auto) 8.66 H Lymph # (Auto) 1.7 [place] # (Auto) 0.8 Eos # (Auto) 0.3 Baso # (Auto) 0.1 Nucleated RBC % (auto) 0 Nucleated RBCs # 0.0 Sodium 134 L Potassium 3.1 L Chloride 87 L Carbon Dioxide 38 H Anion Gap 12.1 BUN 33 H Creatinine 2.5 H GFR Calculation Not Reportable Glucose 141 H POC Glucose 297 H Calculated Osmolality 288 Calcium 9.5 Magnesium Total Bilirubin 0.4 AST 11 ALT 10 Alkaline Phosphatase 84 Total Protein 6.5 L Albumin 3.3 L Globulin 3.2 10/04/20 10/04/20 10/04/20 04:01 06:40 10:58 WBC RBC Hgb Hct MCV MCH MCHC RDW Plt Count MPV Neut % (Auto) Lymph % (Auto) [place] % (Auto) Eos % (Auto) Baso % (Auto) Neut # (Auto) Lymph # (Auto) [place] # (Auto) Eos # (Auto) Baso # (Auto) Nucleated RBC % (auto) Nucleated RBCs # Sodium Potassium Chloride Carbon Dioxide Anion Gap BUN Creatinine GFR Calculation Glucose POC Glucose 169 H 118 H 146 H Calculated Osmolality Calcium Magnesium Total Bilirubin AST ALT Alkaline Phosphatase Total Protein Albumin Globulin 10/04/20 10/04/20 10/05/20 16:33 20:10 07:17 WBC RBC Hgb Hct MCV MCH MCHC RDW Plt Count MPV Neut % (Auto) Lymph % (Auto) [place] % (Auto) Eos % (Auto) Baso % (Auto) Neut # (Auto) Lymph # (Auto) [place] # (Auto) Eos # (Auto) Baso # (Auto) Nucleated RBC % (auto) Nucleated RBCs # Sodium Potassium Chloride Carbon Dioxide Anion Gap BUN Creatinine GFR Calculation Glucose POC Glucose 284 H 271 H 140 H Calculated Osmolality Calcium Magnesium Total Bilirubin AST ALT Alkaline Phosphatase Total Protein Albumin Globulin 10/05/20 10/05/20 10/05/20 08:03 09:18 11:17 WBC RBC Hgb Hct MCV MCH MCHC RDW Plt Count MPV Neut % (Auto) Lymph % (Auto) [place] % (Auto) Eos % (Auto) Baso % (Auto) Neut # (Auto) Lymph # (Auto) [place] # (Auto) Eos # (Auto) Baso # (Auto) Nucleated RBC % (auto) Nucleated RBCs # Sodium Cancelled 133 L Potassium Cancelled 3.9 Chloride Cancelled 88 L Carbon Dioxide Cancelled 38 H Anion Gap Cancelled 10.9 BUN Cancelled 34 H Creatinine Cancelled 2.8 H GFR Calculation Cancelled Not Reportable Glucose Cancelled 141 H POC Glucose 149 H Calculated Osmolality Cancelled 286 Calcium Cancelled 9.2 Magnesium Cancelled 2.0 Total Bilirubin AST ALT Alkaline Phosphatase Total Protein Albumin Globulin Cardiac Studies: No Data to Display
--- NOTE | 2020-10-05 12:00 | USCV_ITS ---
Luiza Cooper Age: 80 Gender: F : 1940 Exam Date: 10/05/2020 11:38 Ordering Phys: Lory Egan MD ([email or web address]) Technologist: Amanda Echevarria [place] [facility] [place]ication: AFIB, before cardioversion BP: 118 / 67 HR: 91 Rhythm: Atrial fibrillation Technical Quality: Good MEASUREMENTS (Male / Female) Normal Values DOPPLER AV Peak Velocity 107.0 cm/s LVOT Peak Velocity 75.0 cm/s Medications Sedation by anesthesia refer to separate report for details. Complications Intubation easy, attempts x 2. Small amount of blood on probe post procedure. No postprocedural complications. Proc. Components Multiple images were obtained at mid esophageal and transgastric levels. FINDINGS Left Ventricle Normal left ventricular cavity size. Normal left ventricular systolic function. Left ventricular ejection fraction is estimated at 55 %. No diagnostic regional wall motion normality. Right Ventricle Upper normal right ventricular size. Mildly to moderately decreased right ventricular systolic function. Right Atrium Moderately increased right atrial size. Left Atrium Moderately increased left atrial size. No left atrial mass or thrombus visualized. LA Appendage Dilated left atrial appendage. Decreased flow velocities in left atrial appendage. Spontaneous echo contrast (smoke) seen in the left atrial appendage. No thrombus visualized in the left atrial appendage. IA Septum Normal interatrial septum. No patent foramen ovale. No evidence for an atrial septal defect. No sanq-my-kaauv shunt seen at the atrial level. Mitral Valve Thickened mitral valve. No mitral valve stenosis. Mild mitral valve regurgitation. Aortic Valve Mildly thickened trileaflet aortic valve. No aortic valve stenosis. No aortic valve regurgitation. Tricuspid Valve Structurally normal tricuspid valve. Moderate to severe tricuspid valve regurgitation. Pulmonic Valve Structurally normal pulmonic valve. No pulmonary valve stenosis. Trace pulmonary valve regurgitation. Pericardium No pericardial effusion. Normal-sized inferior vena cava. Aorta Normal size aortic root and proximal ascending aorta. Grade 3 atheroma noted in aortic arch and proximal descending aorta. No evidence of aortic dilation aneurysm or dissection. CONCLUSIONS 1. Normal left ventricle size and systolic function. Left ventricular ejection fraction is estimated at 55 %. No diagnostic regional wall motion normality. 2. Upper normal right ventricular size. Mildly to moderately decreased right ventricular systolic function. 3. Moderate biatrial enlargement. 4. Spontaneous echo contrast (smoke) seen in the left atrial appendage. No thrombus visualized in the left atrial appendage. 5. Moderate to severe tricuspid valve regurgitation. Lory Egan MD (Electronically Signed) Final Date: 09 October 2020 12:30 S
[2020-10-05] MEDS: sodium chloride 0.9% 1,000 ML 30 ML IV (12:02)
--- NOTE | 2020-10-05 12:46 | ECG_ITS ---
[facility] Test Date: 2020-10-05 Pat Name: Luiza Cooper Department: Room: 103 Gender: Female Jack Spinner: : 1940 Requested By: Lory Egan Order Number: [id number] Casper MD: Lory Egan M.D. Measurements Intervals [place] Rate: 62 P: 15 CA: 180 QRS: 61 QRSD: 90 T: 76 QT: 413 QTc: 421 Interpretive Statements SINUS RHYTHM WITH SINUS ARRHYTHMIA LOW QRS VOLTAGE [QRS DEFLECTION < 0.5/1.0 mV IN LIMB/CHEST LEADS] Compared to ECG 09/25/2020 12:39:47 Low QRS voltage now present Electronically Signed On 10-05-2020 14:03:31 SINTER PRESS OPERATOR by Lory Egan M.D. [id number] f
--- NOTE | 2020-10-05 12:46 | W.PM.OPSUD ---
Surgery/Procedure H&P Update DATE OF PROCEDURE: October 05, 2020 DATE H&P PERFORMED: 10/04/20 H&P UPDATE INFORMATION: I have reviewed H&P completed within last 30 days, I have examined patient prior to procedure and No changes to prior documentation PREOP DIAGNOSIS: Afib PLANNED PROCEDURE: Operation Date: 10/05/20 12:00 Proposed Procedures p BEST(Not Applicable) with cardioversion- Lory Egan MD Patient's chart was reviewed there has been no changes to patient's assessment as compared to yesterday. Plan is to proceed with the procedure as scheduled. PHYSICAL EXAM: alert, oriented x 3 and clear to auscultation bilaterally (Except at bilateral bases)
--- NOTE | 2020-10-05 12:49 | PM.PN ---
Subjective Subjective: Interval history: No new complaints. Urine output 2200 with -1300 mL. -Length of stay -10 L. Patient underwent BEST and cardioversion with congregation of sinus rhythm/sinus bradycardia. Medications: Reviewed: Yes Medication Review Details: Current Medications Acetaminophen (Acetaminophen 325 Mg Tablet) 650 mg PO Q6H PRN PRN Reason: Mild/Mod Pain Or Temp >/= 101 Albuterol Sulfate (Albuterol 8 Gm Mdi) 1 puff INHALATION Q6H.RESPIRATORY PRN PRN Reason: Shortness Of Breath Last Admin: 10/04/20 09:14 Dose: 1 puff Documented by: Amiodarone HCl (Amiodarone 200 Mg Tablet) 200 mg PO DAILY [facility] Last Admin: 10/05/20 08:27 Dose: 200 mg Documented by: Apixaban (Apixaban 5 Mg Tablet) 2.5 mg PO Q12H [facility] Last Admin: 10/05/20 08:39 Dose: 2.5 mg Documented by: Atorvastatin Calcium (Atorvastatin 40 Mg Tablet) 20 mg PO BEDTIME [facility] Last Admin: 10/04/20 22:18 Dose: 20 mg Documented by: Cyanocobalamin (Cyanocobalamin 1,000 Mcg Tablet) 1,000 mcg PO DAILY [facility] Last Admin: 10/05/20 08:24 Dose: 1,000 mcg Documented by: Dextrose (Dextrose 50% Syringe 50 Ml) 25 ml IVP ONCE PRN; Protocol PRN Reason: hypoglycemia protocol Dextrose (Dextrose 50% Syringe 50 Ml) 50 ml IVP PRN PRN; Protocol PRN Reason: hypoglycemia protocol Last Admin: 10/04/20 02:42 Dose: 50 ml Documented by: Diltiazem HCl (Diltiazem Er (24hr) 120 Mg Capsule) 120 mg PO DAILY@0800 [facility] Last Admin: 10/05/20 08:26 Dose: 120 mg Documented by: Diltiazem HCl (Diltiazem Er (24hr) 300 Mg Capsule) 300 mg PO DAILY [facility] Last Admin: 10/05/20 08:33 Dose: 300 mg Documented by: Docusate Sodium (Docusate Sodium 100 Mg Capsule) 200 mg PO DAILY PRN PRN Reason: CONSTIPATION Last Admin: 09/30/20 18:12 Dose: 200 mg Documented by: Docusate Sodium (Docusate Sodium 100 Mg Capsule) 100 mg PO DAILY [facility] Last Admin: 10/05/20 08:29 Dose: Not Given Documented by: Folic Acid (Folic Acid 1 Mg Tablet) 1 mg PO DAILY [facility] Last Admin: 10/05/20 08:27 Dose: 1 mg Documented by: Furosemide (Furosemide 40 Mg Tablet) 80 mg PO BID@08,16 [facility] Last Admin: 10/05/20 08:24 Dose: 80 mg Documented by: Glucagon (Glucagon 1 Mg/Ml Inj 1 Ml) 1 mg IM ONCE PRN; Protocol PRN Reason: Adult Acute Hypoglycemia Prot. Dextrose (D5w) 500 mls @ 100 mls/hr IV ONCE PRN; Protocol PRN Reason: Adult Acute Hypoglycemia Prot Dopamine HCl/Dextrose (Intropin Drip) 400 mg in 250 mls @ 9.9 mls/hr IV CONT [facility]; Protocol Last Admin: 10/05/20 10:04 Dose: Not Given Documented by: Sodium Chloride (Sodium Chloride 0.9%) 1,000 mls @ 30 mls/hr IV .Q24H [facility] Insulin Aspart (Insulin Aspart 100 Unit/1 Ml) 0 unit SUBCUT BEDTIME [facility]; Protocol Last Admin: 10/04/20 22:20 Dose: 6 unit Documented by: Insulin Aspart (Insulin Aspart 100 Unit/1 Ml) 0 unit SUBCUT TIDWM [facility]; Protocol Last Admin: 10/05/20 08:27 Dose: Not Given Documented by: Insulin Glargine (Insulin Glargine 100 Units/1 Ml) 5 unit SUBCUT BEDTIME@20 [facility] Last Admin: 10/04/20 22:20 Dose: 5 unit Documented by: Levothyroxine Sodium (Levothyroxine 150 Mcg Tablet) 75 mcg PO DAILY@08 [facility] Last Admin: 10/05/20 08:22 Dose: 75 mcg Documented by: Magnesium Hydroxide (Magnesium Hydroxide 30 Ml Udc) 30 ml PO BID PRN PRN Reason: CONSTIPATION Last Admin: 10/01/20 15:59 Dose: 30 ml Documented by: Metolazone (Metolazone 5 Mg Tablet) 5 mg PO DAILY [facility] Last Admin: 10/05/20 08:26 Dose: 5 mg Documented by: Metoprolol Tartrate (Metoprolol Tartrate 50 Mg Tablet) 125 mg PO BID@0900,2100 [facility] Last Admin: 10/05/20 08:23 Dose: 125 mg Documented by: Ondansetron HCl (Ondansetron 2 Mg/Ml Sdv 2 Ml) 4 mg IVP Q6H PRN PRN Reason: NAUSEA AND VOMITING Pantoprazole Sodium (Pantoprazole Dr 40 Mg Tablet) 40 mg PO DAILY@08 [facility] Last Admin: 10/05/20 08:25 Dose: 40 mg Documented by: Polyethylene Glycol (Polyethylene Glycol 3350 Pkt 17 Gm) 17 gm PO DAILY PRN PRN Reason: constipation Potassium Chloride (Potassium Chloride Er 20 Meq Tablet) 40 meq PO DAILY [facility] Last Admin: 10/05/20 08:25 Dose: 40 meq Documented by: Fluticasone/Salmeterol (Fluticasone-Salmeterol 250-50 Diskus) 1 puff INHALATION BID.RESPIRATORY [facility] Last Admin: 10/05/20 07:16 Dose: Not Given Documented by: Vitals/I&O/Wt Last Vital Signs Temp 98.3 F 10/05/20 08:00 Pulse 108 H 10/05/20 08:00 Resp 18 10/05/20 08:00 BP 138/69 10/05/20 08:00 Pulse Ox 94 10/05/20 08:00 10/04/20 10/05/20 10/05/20 22:59 06:59 14:59 Intake Total 680 / 800 100 / 900 240 / 240 Output Total 250 / 1750 450 / 2200 Balance 430 / -950 -350 / -1300 240 / 240 Physical Exam Narrative: EXAM NARRATIVE: Obese woman sitting in bed in no acute distress HEENT: Extraocular movement intact. Pupils equal round reactive to light. Mild pallor with no icterus. NECK: central trachea, elevated JVD, No carotid bruit. CARDIOVASCULAR SYSTEM: S1-S2 irregular, of variable intensity no murmur rubs or gallops. RESPIRATORY SYSTEM: Decreased breath sounds at bilateral bases. No wheezes, coarse rhonchi+. No use of accessory muscles. ABDOMEN: Soft, nontender and nondistended. Normal bowel sounds present. EXTREMITIES: No cyanosis or clubbing. trace-1+ edema extending to knees. No signs of chronic venous insufficiency. 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 No focal neurological deficits. SKIN: Normal turgor and temperature. PSYCH: Normal insight and judgment. Const: COMMON NORMALS: alert Resp: COMMON NORMALS: clear to auscultation bilaterally (Except at bilateral bases) AUSCULTATION: clear to auscultation bilaterally (Except at bilateral bases) Neuro: SENSORIUM/ORIENTATION: Yes alert Urinary Catheter Management^: [place]: Cath Placed During This Visit: yes Reason for Continuing Indwelling Catheter: Accurate Measurement of Urinary Output in Critically Ill Patients Urinary Catheter Date of Insertion: 09/25/20 Urinary Catheter Time of Insertion: 21:00 Data : 10/04/20 03:15 10/05/20 09:18 A&P Assessment and plan (1) CHF (congestive heart failure): -Repeat echo with mild RV dysfunction and normal LV function. -Decompensated congestive heart failure. Change to Lasix 80 mg twice a day starting tomorrow morning; hold his evening dose. -Hold metolazone 5 mg p.o. daily. -We will closely monitor intake and output and daily weight. -Given baseline chronic kidney disease, closely monitor renal function. Status: Acute Qualifiers: Heart failure chronicity: acute on chronic Heart failure type: diastolic Qualified Code(s): I50.33 - Acute on chronic diastolic (congestive) heart failure (2) Atrial fibrillation with controlled ventricular rate: A. fib with intermittent high rates. - Not on anticoagulation given anemia requiring blood transfusions. -Continue with rate control strategy given inability to anticoagulate for now. Continue cardizem 420 mg and amiodarone 200 mg daily and metoprolol tartrate 125 BID. I had a long discussion with Luiza and Ness. Risk and benefit of starting on anticoagulation were discussed with the patient given the need for converting to normal rhythm. Extremely difficult to rate control in spite of multiple AV josefina blockers. She remains in rapid ventricular response in spite of significant diuresis. - Decision was made to start on Eliquis 2.5 mg twice a day and plan for BEST cardioversion. -Patient underwent BEST cardioversion with congregation of sinus rhythm. Status: Acute (3) HTN (hypertension): Status: Acute Qualifiers: Hypertension type: essential hypertension Qualified Code(s): I10 - Essential (primary) hypertension (4) CKD (chronic kidney disease): ANSON on chronic kidney disease. Hold his evening dose of Lasix she already received metolazone and this morning dose of Lasix. Status: Acute Qualifiers: Chronic kidney disease stage: stage 4 (severe) Qualified Code(s): N18.4 - Chronic kidney disease, stage 4 (severe) (5) Anemia: Anemia -History of Hemoccult positive; unable to do further GI work-up as an outpatient given recurrent CHF exacerbation and A. fib with RVR. -Needed 1 unit of blood transfusion last admission and approximately 3 to 4 units in the admission before that. -No blood transfusions this hospitalization so far. Status: Acute Qualifiers: Anemia type: unspecified type Qualified Code(s): D64.9 - Anemia, unspecified Additional A&P Information Bilateral pleural effusion : Will possibly need thoracentesis. Hypokalemia: replaced Elevated troponin in setting of decompensated congestive heart failure and underlying kidney disease. Hypoalbuminemia H/O COVID PNA Metabolic alkalosis. Thank you for allowing me to participate in patient's care. Please feel free to call with questions or concerns. Attestations Medical Necessity Statement*: Needs hospital stay for decompensated CHF and A. Fib with RVR. Time Spent in Patient Care: Greater than 35 minutes (>than 50% of time spent in counselling and/or direct pt care on unit). Critical Care Time: Critical Care Time (min): 45 Procedures Time out/Consent Time Out Performed: Yes Consent for Procedure: Consent obtained from patient, Risks & Benefits reviewed and Agrees to proceed with procedure Procedure Narrative BEST Procedure note Indication: Atrial fibrillation with rapid ventricular response difficult to control in spite of multiple medications Sedation: Propofol by anesthesia Procedure was performed at bedside in cardiac stepdown unit. Procedure was explained to the patient in detail and informed consent was obtained. Timeout was called. After achieving adequate sedation, the probe was inserted on second attempt. No blood on the probe post procedure. Prelim report: Normal left ventricle size and systolic function. No left atrial or left atrial appendage mass or thrombus visualized. Smoke noted in left atrial appendage and left atrium. No ASD or PFO identified. Full report to follow. Cardioversion procedure note. Reassuring there was no left atrial or left atrial appendage thrombus. Pads were placed anteroposteriorly. She received 150 J of synchronized biphasic shock ?1 with congregation of normal sinus rhythm/sinus bradycardia. Patient tolerated the procedure well. Recovery: In unit Patient tolerated the procedure well. Coding Level of Care Code Acute Mycologist for Maria G Fwd Exam Expanded Problem Focused Diagnoses CHF (congestive heart failure) I50.33 Heart failure chronicity: acute on chronic Heart failure type: diastolic Atrial fibrillation with controlled ventricular rate I48.91 HTN (hypertension) I10 Hypertension type: essential hypertension CKD (chronic kidney disease) N18.4 Chronic kidney disease stage: stage 4 (severe) Anemia D64.9 Anemia type: unspecified type
--- NOTE | 2020-10-05 13:25 | PC.NURSE ---
1235 PROCEDURE COMPLETE REPORT GIVEN TO PT NURSE ALEKSEY
--- NOTE | 2020-10-05 16:14 | ANE.PACU2 ---
Inpatient post-anesthesia follow up: Airway intact: Yes Vital signs: Temperature 98.3 F Pulse Rate [Monito r] 108 Pulse Rate 108 Respiratory Rate 18 Blood Pressure 138/69 Pulse Oximetry 94 Oxygen Delivery Me thod Nasal Cannula Oxygen Flow Rate 4 Fraction of Inspir ed Oxygen Hydration adequate: Yes Nausea and vomiting: No Pain level: 1 Mental status: Baseline
[2020-10-05] MEDS: acetaZOLAMIDE 250 mg Tablet PO (16:43)
[2020-10-05 17:01] LABS: Glucose Point of Care 209 mg/dL (70-110)
[2020-10-05 20:37] LABS: Glucose Point of Care 150 mg/dL (70-110)
[2020-10-05] MEDS: albuterol 8 gm MDI 1 PUFF INHALATION (20:55)
[2020-10-05] MEDS: insulin glargine 100 units/1 mL 5 UNIT SUBCUT (21:03)
[2020-10-05] MEDS: atorvastatin 40 mg Tablet 20 MG PO (21:03)
[2020-10-06] VITALS (65 sets, daily range): BP systolic 131–153; BP diastolic 53–78; PULSE 60–72; RESP 11–27; TEMP 36.2–36.6; O2SAT 83–99
[2020-10-06 04:30] LABS: Basophils # 0.1 10^3/uL (0.0-0.1); Basophils % 0.9 %; Eosinophils # 0.4 10^3/uL (0.0-0.8); Eosinophils % 3.9 %; Hematocrit 27.9 % (37.0-47.0); Hemoglobin 8.4 g/dL (11.5-15.3); Lymphocytes # 2.5 10^3/uL (0.8-4.8); Lymphocytes % 24.7 %; Mean Corpuscular HGB Conc 30.1 g/dL (30.0-36.0); Mean Corpuscular Volume 99.6 fL (81-99); Mean Platelet Volume 10.1 fL (7.4-10.4); Monocytes # 0.6 10^3/uL (0.2-0.9); Monocytes % 6.2 %; Neutrophils % 62.8 %; Nucleated Red Blood Cells % 0 %; Platelet Count 231 10^3/cmm (130-400); Red Cell Distribution Width 15.7 % (12.1-15.1); White Blood Count 10.2 10^3/uL (4.0-10.0)
[2020-10-06 04:54] LABS: Alanine Aminotransferase 10 U/L (0-33); Albumin Level 3.1 g/dL (3.5-5.2); Alkaline Phosphatase 82 IU/L (35-105); Anion Gap 10.8 (5-19); Aspartate Amino Transferase 11 U/L (0-32); Blood Urea Nitrogen 36 mg/dL (8-23); Carbon Dioxide 36 mmol/L (22-29); Chloride 91 mmol/L (98-107); Glucose 187 mg/dL (65-115); Magnesium 1.9 mg/dL (1.7-2.3); Osmolality Calculated 291 mOsm/kg (285-295); Potassium 3.8 mmol/L (3.5-5.1); Sodium 134 mmol/L (136-145); Total Bilirubin 0.4 mg/dL (0.15-1.2); Total Protein 6.1 g/dL (6.6-8.7)
[2020-10-06 07:09] LABS: Glucose Point of Care 181 mg/dL (70-110)
[2020-10-06] MEDS: albuterol 8 gm MDI 1 PUFF INHALATION ×3 (08:42→20:28)
[2020-10-06] MEDS: potassium chloride ER 20 mEq Tablet 40 MEQ PO (08:54)
[2020-10-06] MEDS: cyanocobalamin 1,000 mcg Tablet 1000 MCG PO (08:54)
[2020-10-06] MEDS: apixaban 5 mg Tablet 2.5 MG PO ×2 (08:55→20:23)
[2020-10-06] MEDS: FUROsemide 40 mg Tablet 80 MG PO ×2 (08:55→16:33)
[2020-10-06] MEDS: metoprolol tartrate 50 mg Tablet PO ×2 (08:58→20:23)
[2020-10-06] MEDS: amiodarone 200 mg Tablet PO (08:58)
[2020-10-06] MEDS: folic acid 1 mg Tablet PO (08:59)
[2020-10-06] MEDS: levothyroxine 150 mcg Tablet 75 MCG PO (08:59)
[2020-10-06] MEDS: pantoprazole DR 40 mg Tablet PO (09:00)
--- NOTE | 2020-10-06 09:19 | PC.SOCIAL ---
IM follow initialed, explained and copy provided. pt verbalized understanding and indicates she is ready to go when able.
[2020-10-06 10:51] LABS: Glucose Point of Care 292 mg/dL (70-110)
--- NOTE | 2020-10-06 12:59 | P.PN_ITS ---
Subjective Subjective: Interval history: Patient feels well. Remains in sinus rhythm on telemetry. Urine output 1890 mL yesterday -360. -10.3 L length of stay Medications: Reviewed: Yes Medication Review Details: Current Medications Acetaminophen (Acetaminophen 325 Mg Tablet) 650 mg PO Q6H PRN PRN Reason: Mild/Mod Pain Or Temp >/= 101 Albuterol Sulfate (Albuterol 8 Gm Mdi) 1 puff INHALATION Q6H.RESPIRATORY PRN PRN Reason: Shortness Of Breath Last Admin: 10/06/20 08:42 Dose: 1 puff Documented by: Amiodarone HCl (Amiodarone 200 Mg Tablet) 200 mg PO DAILY [facility] Last Admin: 10/06/20 08:58 Dose: 200 mg Documented by: Apixaban (Apixaban 5 Mg Tablet) 2.5 mg PO Q12H [facility] Last Admin: 10/06/20 08:55 Dose: 2.5 mg Documented by: Atorvastatin Calcium (Atorvastatin 40 Mg Tablet) 20 mg PO BEDTIME [facility] Last Admin: 10/05/20 21:03 Dose: 20 mg Documented by: Cyanocobalamin (Cyanocobalamin 1,000 Mcg Tablet) 1,000 mcg PO DAILY [facility] Last Admin: 10/06/20 08:54 Dose: 1,000 mcg Documented by: Dextrose (Dextrose 50% Syringe 50 Ml) 25 ml IVP ONCE PRN; Protocol PRN Reason: hypoglycemia protocol Dextrose (Dextrose 50% Syringe 50 Ml) 50 ml IVP PRN PRN; Protocol PRN Reason: hypoglycemia protocol Last Admin: 10/04/20 02:42 Dose: 50 ml Documented by: Docusate Sodium (Docusate Sodium 100 Mg Capsule) 200 mg PO DAILY PRN PRN Reason: CONSTIPATION Last Admin: 09/30/20 18:12 Dose: 200 mg Documented by: Folic Acid (Folic Acid 1 Mg Tablet) 1 mg PO DAILY [facility] Last Admin: 10/06/20 08:59 Dose: 1 mg Documented by: Furosemide (Furosemide 40 Mg Tablet) 80 mg PO BID@ [facility] Last Admin: 10/06/20 08:55 Dose: 80 mg Documented by: Glucagon (Glucagon 1 Mg/Ml Inj 1 Ml) 1 mg IM ONCE PRN; Protocol PRN Reason: Adult Acute Hypoglycemia Prot. Dextrose (D5w) 500 mls @ 100 mls/hr IV ONCE PRN; Protocol PRN Reason: Adult Acute Hypoglycemia Prot Sodium Chloride (Sodium Chloride 0.9%) 1,000 mls @ 30 mls/hr IV .Q24H [facility] Last Admin: 10/06/20 12:12 Dose: Not Given Documented by: Insulin Aspart (Insulin Aspart 100 Unit/1 Ml) 0 unit SUBCUT BEDTIME [facility]; Protocol Last Admin: 10/05/20 21:04 Dose: 3 unit Documented by: Insulin Aspart (Insulin Aspart 100 Unit/1 Ml) 0 unit SUBCUT TIDWM [facility]; Protocol Last Admin: 10/06/20 12:37 Dose: 12 unit Documented by: Insulin Glargine (Insulin Glargine 100 Units/1 Ml) 5 unit SUBCUT BEDTIME@20 [facility] Last Admin: 10/05/20 21:03 Dose: 5 unit Documented by: Levothyroxine Sodium (Levothyroxine 150 Mcg Tablet) 75 mcg PO DAILY@08 [facility] Last Admin: 10/06/20 08:59 Dose: 75 mcg Documented by: Magnesium Hydroxide (Magnesium Hydroxide 30 Ml Udc) 30 ml PO BID PRN PRN Reason: CONSTIPATION Last Admin: 10/01/20 15:59 Dose: 30 ml Documented by: Metolazone (Metolazone 5 Mg Tablet) 5 mg PO DAILY [facility] Last Admin: 10/05/20 08:26 Dose: 5 mg Documented by: Metoprolol Tartrate (Metoprolol Tartrate 50 Mg Tablet) 50 mg PO BID@0900,2100 [facility] Last Admin: 10/06/20 08:58 Dose: 50 mg Documented by: Ondansetron HCl (Ondansetron 2 Mg/Ml Sdv 2 Ml) 4 mg IVP Q6H PRN PRN Reason: NAUSEA AND VOMITING Pantoprazole Sodium (Pantoprazole Dr 40 Mg Tablet) 40 mg PO DAILY@08 [facility] Last Admin: 10/06/20 09:00 Dose: 40 mg Documented by: Polyethylene Glycol (Polyethylene Glycol 3350 Pkt 17 Gm) 17 gm PO DAILY PRN PRN Reason: constipation Potassium Chloride (Potassium Chloride Er 20 Meq Tablet) 40 meq PO DAILY [facility] Last Admin: 10/06/20 08:54 Dose: 40 meq Documented by: Fluticasone/Salmeterol (Fluticasone-Salmeterol 250-50 Diskus) 1 puff INHALATION BID.RESPIRATORY [facility] Last Admin: 10/06/20 08:42 Dose: 1 puff Documented by: Vitals/I&O/Wt Last Vital Signs Temp 97.6 F 10/06/20 07:07 Pulse 63 10/06/20 08:47 Resp 16 10/06/20 08:47 BP 151/53 10/06/20 07:07 Pulse Ox 98 10/06/20 08:47 10/05/20 10/06/20 10/06/20 22:59 06:59 14:59 Intake Total 630 / 1210 320 / 1530 120 / 120 Output Total 550 / 1890 Balance 630 / -130 -230 / -360 120 / 120 Physical Exam Narrative: EXAM NARRATIVE: Obese woman sitting in bed in no acute distress HEENT: Extraocular movement intact. Pupils equal round reactive to light. Mild pallor with no icterus. NECK: central trachea, elevated JVD, No carotid bruit. CARDIOVASCULAR SYSTEM: S1-S2 regular, no murmur rubs or gallops appreciated. RESPIRATORY SYSTEM: Decreased breath sounds at bilateral bases. No wheezes, coa rse rhonchi+. No use of accessory muscles. ABDOMEN: Soft, nontender and nondistended. Normal bowel sounds present. EXTREMITIES: No cyanosis or clubbing. trace edema legs. No signs of chronic venous insufficiency. 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 No focal neurological deficits. SKIN: Normal turgor and temperature. PSYCH: Normal insight and judgment. Const: COMMON NORMALS: alert Resp: COMMON NORMALS: clear to auscultation bilaterally (Except at bilateral bases) AUSCULTATION: clear to auscultation bilaterally (Except at bilateral bases) Neuro: SENSORIUM/ORIENTATION: Yes alert Urinary Catheter Management^: Corral: Cath Placed During This Visit: yes Reason for Continuing Indwelling Catheter: Accurate Measurement of Urinary Output in Critically Ill Patients Urinary Catheter Date of Insertion: 09/25/20 Urinary Catheter Time of Insertion: 21:00 Data : 10/06/20 03:58 10/06/20 03:58 A&P Assessment and plan (1) CHF (congestive heart failure): -Repeat echo with mild RV dysfunction and normal LV function. -Decompensated congestive heart failure. Change to Lasix 80 mg twice a day starting tomorrow morning; hold his evening dose. -Held metolazone 5 mg p.o. today. With plan to resume tomorrow based on her urine output today. -We will closely monitor intake and output and daily weight. -Given baseline chronic kidney disease, closely monitor renal function. Status: Acute Qualifiers: Heart failure type: diastolic Heart failure chronicity: acute on chronic Qualified Code(s): I50.33 - Acute on chronic diastolic (congestive) heart failure (2) Atrial fibrillation with controlled ventricular rate: A. fib with intermittent high rates I had a long discussion with Luiza and Ness. Risk and benefit of starting on anticoagulation were discussed with the patient given the need for converting to normal rhythm. Extremely difficult to rate control in spite of multiple AV josefina blockers. She remains in rapid ventricular response in spite of significant diuresis. - Decision was made to start on Eliquis 2.5 mg twice a day and plan for BEST cardioversion. -Patient underwent BEST cardioversion with lutheran of sinus rhythm on 10/05/20. -Continue Eliquis 2.5 mg twice a day, amiodarone 200 mg and metoprolol tartrate 50 mg twice daily. Status: Acute (3) HTN (hypertension): Continue to closely monitor may have to add antihypertensive if blood pressure starts running high. Status: Acute Qualifiers: Hypertension type: essential hypertension Qualified Code(s): I10 - Essential (primary) hypertension (4) CKD (chronic kidney disease): ANSON on chronic kidney disease. Status: Acute Qualifiers: Chronic kidney disease stage: stage 4 (severe) Qualified Code(s): N18.4 - Chronic kidney disease, stage 4 (severe) (5) Anemia: Anemia -History of Hemoccult positive; unable to do further GI work-up as an outpatient given recurrent CHF exacerbation and A. fib with RVR. -Needed 1 unit of blood transfusion last admission and approximately 3 to 4 units in the admission before that. -No blood transfusions this hospitalization so far. Status: Acute Qualifiers: Anemia type: unspecified type Qualified Code(s): D64.9 - Anemia, unspecified Additional A&P Information Bilateral pleural effusion : Will possibly need thoracentesis. Hypokalemia: replaced Elevated troponin in setting of decompensated congestive heart failure and un derlying kidney disease. Hypoalbuminemia H/O COVID PNA Metabolic alkalosis. Hypothyroidism Beatties metas type II Thank you for allowing me to participate in patient's care. Please feel free to call with questions or concerns. Attestations Medical Necessity Statement*: Needs hospital stay for decompensated CHF and A. Fib with RVR. Time Spent in Patient Care: Greater than 35 minutes (>than 50% of time spent in counselling and/or direct pt care on unit) . Coding Level of Care Code Acute [employer] for Chg Fwd Diagnoses CHF (congestive heart failure) I50.33 Heart failure type: diastolic Heart failure chronicity: acute on chronic Atrial fibrillation with controlled ventricular rate I48.91 HTN (hypertension) I10 Hypertension type: essential hypertension CKD (chronic kidney disease) N18.4 Chronic kidney disease stage: stage 4 (severe) Anemia D64.9 Anemia type: unspecified type
--- NOTE | 2020-10-06 13:52 | PM.PN ---
Subjective Subjective: Interval history: Patient was noted to have a fall earlier, found sitting on floor, no loc or head trauma. no fever or chils. no nausea or vomiting. Stated she was feeling much better today, no chest pain, improvement in respiratory status. Medications: Reviewed: Yes Medication Review Details: Current Medications Acetaminophen (Acetaminophen 325 Mg Tablet) 650 mg PO Q6H PRN PRN Reason: Mild/Mod Pain Or Temp >/= 101 Hydrocodone Bitart/Acetaminophen (Hydrocodone-Acetaminophen 5-325 Mg Tablet) 1 tab PO Q6H PRN PRN Reason: pain Last Admin: 09/29/20 21:02 Dose: 1 tab Documented by: Albuterol Sulfate (Albuterol 8 Gm Mdi) 1 puff INHALATION Q6H.RESPIRATORY PRN PRN Reason: Shortness Of Breath Amiodarone HCl (Amiodarone 200 Mg Tablet) 200 mg PO Q12H [facility] Last Admin: 09/29/20 21:02 Dose: 200 mg Documented by: Aspirin (Aspirin 81 Mg Ec Tablet) 81 mg PO DAILY [facility] Last Admin: 09/29/20 10:19 Dose: 81 mg Documented by: Atorvastatin Calcium (Atorvastatin 40 Mg Tablet) 20 mg PO BEDTIME [facility] Last Admin: 09/29/20 21:02 Dose: 20 mg Documented by: Cyanocobalamin (Cyanocobalamin 1,000 Mcg Tablet) 1,000 mcg PO DAILY [facility] Last Admin: 09/29/20 10:19 Dose: 1,000 mcg Documented by: Dextrose (Dextrose 50% Syringe 50 Ml) 25 ml IVP ONCE PRN; Protocol PRN Reason: hypoglycemia protocol Dextrose (Dextrose 50% Syringe 50 Ml) 50 ml IVP PRN PRN; Protocol PRN Reason: hypoglycemia protocol Diltiazem HCl (Diltiazem Er (24hr) 120 Mg Capsule) 120 mg PO DAILY@0800 [facility] Last Admin: 09/30/20 07:42 Dose: 120 mg Documented by: Diltiazem HCl (Diltiazem Er (24hr) 300 Mg Capsule) 300 mg PO DAILY [facility] Last Admin: 09/29/20 10:19 Dose: 300 mg Documented by: Docusate Sodium (Docusate Sodium 100 Mg Capsule) 200 mg PO DAILY PRN PRN Reason: CONSTIPATION Last Admin: 09/29/20 16:57 Dose: 200 mg Documented by: Folic Acid (Folic Acid 1 Mg Tablet) 1 mg PO DAILY [facility] Last Admin: 09/29/20 10:19 Dose: 1 mg Documented by: Furosemide (Furosemide 10 Mg/Ml Sdv 10ml) 60 mg IVP Q12H [facility] Last Admin: 09/29/20 21:03 Dose: 60 mg Documented by: Glucagon (Glucagon 1 Mg/Ml Inj 1 Ml) 1 mg IM ONCE PRN; Protocol PRN Reason: Adult Acute Hypoglycemia Prot. Dextrose (D5w) 500 mls @ 100 mls/hr IV ONCE PRN; Protocol PRN Reason: Adult Acute Hypoglycemia Prot Levofloxacin/Dextrose (Levaquin-D5w) 500 mg in 100 mls @ 100 mls/hr IV Q48H [facility]; Protocol Last Admin: 09/28/20 14:15 Dose: 100 mls/hr Documented by: Dopamine HCl/Dextrose (Intropin Drip) 400 mg in 250 mls @ 16.499 mls/hr IV CONT [facility]; Protocol Last Admin: 09/30/20 04:58 Dose: 5 mcg/kg/min, 16.5 mls/hr Documented by: Insulin Aspart (Insulin Aspart 100 Unit/1 Ml) 0 unit SUBCUT WM&BEDTIME [facility]; Protocol Last Admin: 09/30/20 07:41 Dose: 8 unit Documented by: Insulin Glargine (Insulin Glargine 100 Units/1 Ml) 15 unit SUBCUT BEDTIME@20 [facility] Last Admin: 09/29/20 21:03 Dose: Not Given Documented by: Levothyroxine Sodium (Levothyroxine 150 Mcg Tablet) 75 mcg PO DAILY@08 [facility] Last Admin: 09/30/20 07:42 Dose: 75 mcg Documented by: Metolazone (Metolazone 5 Mg Tablet) 5 mg PO DAILY [facility] Last Admin: 09/29/20 21:03 Dose: 5 mg Documented by: Metoprolol Tartrate (Metoprolol Tartrate 50 Mg Tablet) 100 mg PO BID@0900,2100 [facility] Last Admin: 09/29/20 21:00 Dose: 100 mg Documented by: Ondansetron HCl (Ondansetron 2 Mg/Ml Sdv 2 Ml) 4 mg IVP Q6H PRN PRN Reason: NAUSEA AND VOMITING Pantoprazole Sodium (Pantoprazole Dr 40 Mg Tablet) 40 mg PO DAILY@08 [facility] Last Admin: 09/30/20 07:42 Dose: 40 mg Documented by: Fluticasone/Salmeterol (Fluticasone-Salmeterol 250-50 Diskus) 1 puff INHALATION BID.RESPIRATORY [facility] Last Admin: 09/29/20 21:24 Dose: 1 puff Documented by: Vitals/I&O/Wt Last Vital Signs Temp 97.2 F L 10/06/20 12:00 Pulse 66 10/06/20 12:00 Resp 15 10/06/20 12:00 BP 131/77 10/06/20 12:00 Pulse Ox 97 10/06/20 12:00 10/05/20 10/06/20 10/06/20 22:59 06:59 14:59 Intake Total 630 / 1210 320 / 1530 240 / 240 Output Total 550 / 1890 Balance 630 / -130 -230 / -360 240 / 240 Physical Exam Narrative: EXAM NARRATIVE: General exam no apparent distress on 3L of o2 via NC Neck is supple no lymphadenopathy or thyromegaly Cardiovascular irregular, irregular with no murmur. Lungs crackles bilaterally. No wheezing. Abdomen is soft nontender with positive bowel sounds. No obvious organomegaly Extremities no cyanosis or clubbing. 1+ edema is noted Cardio: COMMON NORMALS: regular rate RATE: regular rate Urinary Catheter Management^: Corral: Cath Placed During This Visit: yes Reason for Continuing Indwelling Catheter: Accurate Measurement of Urinary Output in Critically Ill Patients Urinary Catheter Date of Insertion: 09/25/20 Urinary Catheter Time of Insertion: 21:00 Data : 10/06/20 03:58 10/06/20 03:58 A&P Assessment and plan (1) ANSON (acute kidney injury): Status: Acute (2) Acute exacerbation of CHF (congestive heart failure): Status: Acute (3) Anemia: Hemoglobin stable. Stool heme positive. Needs outpatient work-up. No significant clinical evidence for brisk GI bleed. Avoid anticoagulants Status: Acute Qualifiers: Anemia type: unspecified type Qualified Code(s): D64.9 - Anemia, unspecified (4) Diabetes: Sliding scale insulin Status: Acute (5) HTN (hypertension): Hold ARB Continue other antihypertensives Status: Acute Qualifiers: Hypertension type: essential hypertension Qualified Code(s): I10 - Essential (primary) hypertension (6) Hypoxemia: Status: Acute Additional A&P Information This is a 80-year-old female with history of congestive heart failure recently treated for Covid pneumonia presented to hospital with worsening shortness of breath. AFIB with RVR s/p BEST cardioversion now NSR - Cardiology on board - Metoprolol 50 mg PO BID - Cardizem discontinued - Continue to titrate meds per cardiology - Eliquis 2.5 mg PO BID Acute on chronic HFpEF exacerbation with moderate R.pleural effusion - Cardiology on board - Lasix 80 mg PO BID - Metolazone 5mg daily - held - Kdur 40 meq po daily - Neg 460 balance - Monitor I's and O's - noted negative 1.3L balance - ECHO EF 55-60%, RAP 15mmhg - Cardiology on board - Check wt daily Acute on chronic hypoxiemic respiratory failure - Nn 3L at home. currently on 3-4L - Will likely need home o2 eval at discharge - Etiology multi-factorial - Chest x-ray reviewed Acute kidney failure on chronic stage 3 kidney disease - Likely at new baseline - creatinine 2.5 - 2.4 -> 2.5 - . 2.7 - Follow up with nephrology outpatient - Renal US noted - Renal dosing of meds - Monitor u/o - 0.63 ml/kg/hr overnight Anemia - recently had sig drop rq transfusion - Resumed on low dose eliquis - Benefit outweigh risk - Will monitor daily h/h - Currently stable - Hgb 8.6 - 8.4 today - No evidnece of bleeding Diabetes Mellitus with hypoglycemic episodes - QACHS checks - Sliding scale insulin - Lantus 5 units qhs Hypertension - Meds as above - Management per cardiology Elevated d dimer - VQ indeterminate, duplex neg for DVT in Aug - Eliquis 2.5 mg PO BID Hypothyroidism - tsh stable in July - Synthroid 75 mcg po daily UTI - Enterococcus - Completed levaquin - Monitor off abx Constipation - Resolved - Bowel regimen - Will add Colace 100mg PO BID - Miralax PRN GI PPX - PPI DVT:SCD, eliquis 2.5 mg PO BID Attestations Medical Necessity Statement*: Will require additional day in hospital for optimization of cardiac meds. Time Spent in Patient Care: Greater than 35 minutes (>than 50% of time spent in counselling and/or direct pt care on unit). Coding Level of Care Code Acute Tenter for Chg Fwd Diagnoses ANSON (acute kidney injury) N17.9 Acute exacerbation of CHF (congestive heart failure) I50.9 Anemia D64.9 Anemia type: unspecified type Diabetes E11.9 HTN (hypertension) I10 Hypertension type: essential hypertension Hypoxemia R09.02
[2020-10-06 16:08] LABS: Glucose Point of Care 174 mg/dL (70-110)
[2020-10-06 20:16] LABS: Glucose Point of Care 228 mg/dL (70-110)
[2020-10-06] MEDS: atorvastatin 40 mg Tablet 20 MG PO (20:24)
[2020-10-06] MEDS: insulin glargine 100 units/1 mL 5 UNIT SUBCUT (20:24)
[2020-10-07] VITALS (34 sets, daily range): BP systolic 135–148; BP diastolic 58–90; PULSE 62–77; RESP 11–17; TEMP 36.4–36.9; O2SAT 85–98
[2020-10-07 07:33] LABS: Glucose Point of Care 118 mg/dL (70-110)
[2020-10-07] MEDS: FUROsemide 40 mg Tablet 80 MG PO ×2 (08:01→15:15)
[2020-10-07] MEDS: levothyroxine 150 mcg Tablet 75 MCG PO (08:02)
[2020-10-07] MEDS: amiodarone 200 mg Tablet PO (08:32)
[2020-10-07] MEDS: cyanocobalamin 1,000 mcg Tablet 1000 MCG PO (08:33)
[2020-10-07] MEDS: potassium chloride ER 20 mEq Tablet 40 MEQ PO (08:33)
[2020-10-07] MEDS: pantoprazole DR 40 mg Tablet PO (08:33)
[2020-10-07] MEDS: apixaban 5 mg Tablet 2.5 MG PO (08:33)
[2020-10-07] MEDS: metoprolol tartrate 50 mg Tablet PO (08:34)
[2020-10-07] MEDS: folic acid 1 mg Tablet PO (08:34)
[2020-10-07] MEDS: polyethylene glycol 3350 Pkt 17 gm PO (08:35)
[2020-10-07] MEDS: albuterol 8 gm MDI 1 PUFF INHALATION (08:56)
--- NOTE | 2020-10-07 10:43 | PM.PN ---
Subjective Subjective: Interval history: Doing well overnight. Patient was wanting to discharge home. Medications: Reviewed: Yes Medication Review Details: Current Medications Acetaminophen (Acetaminophen 325 Mg Tablet) 650 mg PO Q6H PRN PRN Reason: Mild/Mod Pain Or Temp >/= 101 Hydrocodone Bitart/Acetaminophen (Hydrocodone-Acetaminophen 5-325 Mg Tablet) 1 tab PO Q6H PRN PRN Reason: pain Last Admin: 09/29/20 21:02 Dose: 1 tab Documented by: Albuterol Sulfate (Albuterol 8 Gm Mdi) 1 puff INHALATION Q6H.RESPIRATORY PRN PRN Reason: Shortness Of Breath Amiodarone HCl (Amiodarone 200 Mg Tablet) 200 mg PO Q12H [facility] Last Admin: 09/29/20 21:02 Dose: 200 mg Documented by: Aspirin (Aspirin 81 Mg Ec Tablet) 81 mg PO DAILY [facility] Last Admin: 09/29/20 10:19 Dose: 81 mg Documented by: Atorvastatin Calcium (Atorvastatin 40 Mg Tablet) 20 mg PO BEDTIME [facility] Last Admin: 09/29/20 21:02 Dose: 20 mg Documented by: Cyanocobalamin (Cyanocobalamin 1,000 Mcg Tablet) 1,000 mcg PO DAILY [facility] Last Admin: 09/29/20 10:19 Dose: 1,000 mcg Documented by: Dextrose (Dextrose 50% Syringe 50 Ml) 25 ml IVP ONCE PRN; Protocol PRN Reason: hypoglycemia protocol Dextrose (Dextrose 50% Syringe 50 Ml) 50 ml IVP PRN PRN; Protocol PRN Reason: hypoglycemia protocol Diltiazem HCl (Diltiazem Er (24hr) 120 Mg Capsule) 120 mg PO DAILY@0800 [facility] Last Admin: 09/30/20 07:42 Dose: 120 mg Documented by: Diltiazem HCl (Diltiazem Er (24hr) 300 Mg Capsule) 300 mg PO DAILY [facility] Last Admin: 09/29/20 10:19 Dose: 300 mg Documented by: Docusate Sodium (Docusate Sodium 100 Mg Capsule) 200 mg PO DAILY PRN PRN Reason: CONSTIPATION Last Admin: 09/29/20 16:57 Dose: 200 mg Documented by: Folic Acid (Folic Acid 1 Mg Tablet) 1 mg PO DAILY [facility] Last Admin: 09/29/20 10:19 Dose: 1 mg Documented by: Furosemide (Furosemide 10 Mg/Ml Sdv 10ml) 60 mg IVP Q12H [facility] Last Admin: 09/29/20 21:03 Dose: 60 mg Documented by: Glucagon (Glucagon 1 Mg/Ml Inj 1 Ml) 1 mg IM ONCE PRN; Protocol PRN Reason: Adult Acute Hypoglycemia Prot. Dextrose (D5w) 500 mls @ 100 mls/hr IV ONCE PRN; Protocol PRN Reason: Adult Acute Hypoglycemia Prot Levofloxacin/Dextrose (Levaquin-D5w) 500 mg in 100 mls @ 100 mls/hr IV Q48H [facility]; Protocol Last Admin: 09/28/20 14:15 Dose: 100 mls/hr Documented by: Dopamine HCl/Dextrose (Intropin Drip) 400 mg in 250 mls @ 16.499 mls/hr IV CONT [facility]; Protocol Last Admin: 09/30/20 04:58 Dose: 5 mcg/kg/min, 16.5 mls/hr Documented by: Insulin Aspart (Insulin Aspart 100 Unit/1 Ml) 0 unit SUBCUT WM&BEDTIME [facility]; Protocol Last Admin: 09/30/20 07:41 Dose: 8 unit Documented by: Insulin Glargine (Insulin Glargine 100 Units/1 Ml) 15 unit SUBCUT BEDTIME@20 [facility] Last Admin: 09/29/20 21:03 Dose: Not Given Documented by: Levothyroxine Sodium (Levothyroxine 150 Mcg Tablet) 75 mcg PO DAILY@08 [facility] Last Admin: 09/30/20 07:42 Dose: 75 mcg Documented by: Metolazone (Metolazone 5 Mg Tablet) 5 mg PO DAILY [facility] Last Admin: 09/29/20 21:03 Dose: 5 mg Documented by: Metoprolol Tartrate (Metoprolol Tartrate 50 Mg Tablet) 100 mg PO BID@0900,2100 [facility] Last Admin: 09/29/20 21:00 Dose: 100 mg Documented by: Ondansetron HCl (Ondansetron 2 Mg/Ml Sdv 2 Ml) 4 mg IVP Q6H PRN PRN Reason: NAUSEA AND VOMITING Pantoprazole Sodium (Pantoprazole Dr 40 Mg Tablet) 40 mg PO DAILY@08 [facility] Last Admin: 09/30/20 07:42 Dose: 40 mg Documented by: Fluticasone/Salmeterol (Fluticasone-Salmeterol 250-50 Diskus) 1 puff INHALATION BID.RESPIRATORY [facility] Last Admin: 09/29/20 21:24 Dose: 1 puff Documented by: Vitals/I&O/Wt Last Vital Signs Temp 97.5 F L 10/07/20 07:09 Pulse 74 10/07/20 08:56 Resp 16 10/07/20 08:56 BP 137/58 10/07/20 07:09 Pulse Ox 93 10/07/20 08:56 10/06/20 10/07/20 10/07/20 22:59 06:59 14:59 Intake Total 560 / 800 100 / 900 360 / 360 Output Total 1450 / 1450 800 / 2250 Balance -890 / -650 -700 / -1350 360 / 360 Physical Exam Narrative: EXAM NARRATIVE: General exam no apparent distress on 3L of o2 via NC Neck is supple no lymphadenopathy or thyromegaly Cardiovascular irregular, irregular with no murmur. Lungs crackles bilaterally. No wheezing. Abdomen is soft nontender with positive bowel sounds. No obvious organomegaly Extremities no cyanosis or clubbing. 1+ edema is noted Cardio: COMMON NORMALS: regular rate RATE: regular rate Urinary Catheter Management^: Corral: Cath Placed During This Visit: yes Reason for Continuing Indwelling Catheter: Accurate Measurement of Urinary Output in Critically Ill Patients Urinary Catheter Date of Insertion: 09/25/20 Urinary Catheter Time of Insertion: 21:00 Data : 10/07/20 03:09 10/07/20 03:09 A&P Assessment and plan (1) ANSON (acute kidney injury): Status: Acute (2) Acute exacerbation of CHF (congestive heart failure): Status: Acute (3) Anemia: Hemoglobin stable. Stool heme positive. Needs outpatient work-up. No significant clinical evidence for brisk GI bleed. Avoid anticoagulants Status: Acute Qualifiers: Anemia type: unspecified type Qualified Code(s): D64.9 - Anemia, unspecified (4) Diabetes: Sliding scale insulin Status: Acute (5) HTN (hypertension): Hold ARB Continue other antihypertensives Status: Acute Qualifiers: Hypertension type: essential hypertension Qualified Code(s): I10 - Essential (primary) hypertension (6) Hypoxemia: Status: Acute Additional A&P Information This is a 80-year-old female with history of congestive heart failure recently treated for Covid pneumonia presented to hospital with worsening shortness of breath. AFIB with RVR s/p BEST cardio-version now NSR - Cardiology on board - Metoprolol 50 mg PO BID - Cardizem discontinued - Continue to titrate meds per cardiology - Eliquis 2.5 mg PO BID Acute on chronic HFpEF exacerbation with moderate R.pleural effusion - Cardiology on board - Lasix 80 mg PO BID - Metolazone 5mg daily - held - Kdur 40 meq po daily - Neg 460 balance - Monitor I's and O's - noted negative 1.3L balance - ECHO EF 55-60%, RAP 15mmhg - Cardiology on board - Check wt daily Acute on chronic hypoxiemic respiratory failure - Nn 3L at home. currently on 3-4L - Will likely need home o2 eval at discharge - Etiology multi-factorial - Chest x-ray reviewed Acute kidney failure on chronic stage 3 kidney disease - Likely at new baseline - creatinine 2.5 - 2.4 -> 2.5 - . 2.7 - Follow up with nephrology outpatient - Renal US noted - Renal dosing of meds - Monitor u/o - 0.63 ml/kg/hr overnight Anemia - recently had sig drop rq transfusion - Resumed on low dose eliquis - Benefit outweigh risk - Will monitor daily h/h - Currently stable - Hgb 8.6 - 8.4 today - No evidnece of bleeding Diabetes Mellitus with hypoglycemic episodes - QACHS checks - Sliding scale insulin - Lantus 5 units qhs Hypertension - Meds as above - Management per cardiology Elevated d dimer - VQ indeterminate, duplex neg for DVT in Aug - Eliquis 2.5 mg PO BID Hypothyroidism - tsh stable in July - Synthroid 75 mcg po daily UTI - Enterococcus - Completed levaquin - Monitor off abx Constipation - Resolved - Bowel regimen - Will add Colace 100mg PO BID - Miralax PRN GI PPX - PPI DVT:SCD, eliquis 2.5 mg PO BID Disposition Cardiology had cleared patient for discharge home. Home O2 eval was obtained. Insure that this was arranged. Attestations Medical Necessity Statement*: Discharge home Time Spent in Patient Care: Greater than 35 minutes (>than 50% of time spent in counselling and/or direct pt care on unit). Coding Level of Care Code Acute Environmental Services Project Manager for Chg Fwd Exam Problem Focused Diagnoses ANSON (acute kidney injury) N17.9 Acute exacerbation of CHF (congestive heart failure) I50.9 Anemia D64.9 Anemia type: unspecified type Diabetes E11.9 HTN (hypertension) I10 Hypertension type: essential hypertension Hypoxemia R09.02
[2020-10-07 10:45] LABS: Basophils # 0.1 10^3/uL (0.0-0.1); Basophils % 0.8 %; Eosinophils # 0.5 10^3/uL (0.0-0.8); Eosinophils % 3.9 %; Hematocrit 30.5 % (37.0-47.0); Hemoglobin 9.1 g/dL (11.5-15.3); Lymphocytes # 2.4 10^3/uL (0.8-4.8); Lymphocytes % 20.5 %; Mean Corpuscular HGB Conc 29.8 g/dL (30.0-36.0); Mean Corpuscular Hemoglobin 29.9 pg (28.0-34.0); Mean Corpuscular Volume 100.3 fL (81-99); Mean Platelet Volume 10.1 fL (7.4-10.4); Monocytes # 0.7 10^3/uL (0.2-0.9); Neutrophils # 7.83 10^3/uL (1.8-7.7); Neutrophils % 67.1 %; Nucleated Red Blood Cells % 0 %; Platelet Count 259 10^3/cmm (130-400); Red Blood Count 3.04 10^6/uL (4.1-5.3); Red Cell Distribution Width 15.5 % (12.1-15.1); White Blood Count 11.7 10^3/uL (4.0-10.0)
[2020-10-07 11:03] LABS: Glucose Point of Care 284 mg/dL (70-110)
[2020-10-07 11:14] LABS: Alanine Aminotransferase 10 U/L (0-33); Albumin Level 3.3 g/dL (3.5-5.2); Alkaline Phosphatase 87 IU/L (35-105); Anion Gap 14.5 (5-19); Aspartate Amino Transferase 11 U/L (0-32); Blood Urea Nitrogen 32 mg/dL (8-23); Calcium 9.4 mg/dL (8.5-10.5); Carbon Dioxide 34 mmol/L (22-29); Chloride 91 mmol/L (98-107); Globulin 3.4 g/dL (1.3-4.6); Glucose 72 mg/dL (65-115); Osmolality Calculated 287 mOsm/kg (285-295); Potassium 3.5 mmol/L (3.5-5.1); Sodium 136 mmol/L (136-145); Total Bilirubin 0.4 mg/dL (0.15-1.2); Total Protein 6.7 g/dL (6.6-8.7)
--- NOTE | 2020-10-07 12:10 | PM.PN ---
Subjective Subjective: Interval history: UO 2.2 L, -1.3 L She is doing well and remains in sinus rhythm Medications: Reviewed: Yes Medication Review Details: Current Medications Acetaminophen (Acetaminophen 325 Mg Tablet) 650 mg PO Q6H PRN PRN Reason: Mild/Mod Pain Or Temp >/= 101 Albuterol Sulfate (Albuterol 8 Gm Mdi) 1 puff INHALATION Q6H.RESPIRATORY PRN PRN Reason: Shortness Of Breath Last Admin: 10/07/20 08:56 Dose: 1 puff Documented by: Amiodarone HCl (Amiodarone 200 Mg Tablet) 200 mg PO DAILY [facility] Last Admin: 10/07/20 08:32 Dose: 200 mg Documented by: Apixaban (Apixaban 5 Mg Tablet) 2.5 mg PO Q12H [facility] Last Admin: 10/07/20 08:33 Dose: 2.5 mg Documented by: Atorvastatin Calcium (Atorvastatin 40 Mg Tablet) 20 mg PO BEDTIME [facility] Last Admin: 10/06/20 20:24 Dose: 20 mg Documented by: Cyanocobalamin (Cyanocobalamin 1,000 Mcg Tablet) 1,000 mcg PO DAILY [facility] Last Admin: 10/07/20 08:33 Dose: 1,000 mcg Documented by: Dextrose (Dextrose 50% Syringe 50 Ml) 25 ml IVP ONCE PRN; Protocol PRN Reason: hypoglycemia protocol Dextrose (Dextrose 50% Syringe 50 Ml) 50 ml IVP PRN PRN; Protocol PRN Reason: hypoglycemia protocol Last Admin: 10/04/20 02:42 Dose: 50 ml Documented by: Docusate Sodium (Docusate Sodium 100 Mg Capsule) 200 mg PO BEDTIME PRN PRN Reason: CONSTIPATION Folic Acid (Folic Acid 1 Mg Tablet) 1 mg PO DAILY [facility] Last Admin: 10/07/20 08:34 Dose: 1 mg Documented by: Furosemide (Furosemide 40 Mg Tablet) 80 mg PO BID@08,16 [facility] Last Admin: 10/07/20 08:01 Dose: 80 mg Documented by: Glucagon (Glucagon 1 Mg/Ml Inj 1 Ml) 1 mg IM ONCE PRN; Protocol PRN Reason: Adult Acute Hypoglycemia Prot. Dextrose (D5w) 500 mls @ 100 mls/hr IV ONCE PRN; Protocol PRN Reason: Adult Acute Hypoglycemia Prot Sodium Chloride (Sodium Chloride 0.9%) 1,000 mls @ 30 mls/hr IV .Q24H [facility] Last Admin: 10/07/20 11:25 Dose: Not Given Documented by: Insulin Aspart (Insulin Aspart 100 Unit/1 Ml) 0 unit SUBCUT BEDTIME [facility]; Protocol Last Admin: 10/06/20 20:25 Dose: 5 unit Documented by: Insulin Aspart (Insulin Aspart 100 Unit/1 Ml) 0 unit SUBCUT TIDWM [facility]; Protocol Last Admin: 10/07/20 11:49 Dose: 12 unit Documented by: Insulin Glargine (Insulin Glargine 100 Units/1 Ml) 5 unit SUBCUT BEDTIME@20 [facility] Last Admin: 10/06/20 20:24 Dose: 5 unit Documented by: Levothyroxine Sodium (Levothyroxine 150 Mcg Tablet) 75 mcg PO DAILY@08 [facility] Last Admin: 10/07/20 08:02 Dose: 75 mcg Documented by: Magnesium Hydroxide (Magnesium Hydroxide 30 Ml Udc) 30 ml PO BID PRN PRN Reason: CONSTIPATION Last Admin: 10/01/20 15:59 Dose: 30 ml Documented by: Metolazone (Metolazone 5 Mg Tablet) 5 mg PO DAILY [facility] Last Admin: 10/05/20 08:26 Dose: 5 mg Documented by: Metoprolol Tartrate (Metoprolol Tartrate 50 Mg Tablet) 50 mg PO BID@0900,2100 [facility] Last Admin: 10/07/20 08:34 Dose: 50 mg Documented by: Ondansetron HCl (Ondansetron 2 Mg/Ml Sdv 2 Ml) 4 mg IVP Q6H PRN PRN Reason: NAUSEA AND VOMITING Pantoprazole Sodium (Pantoprazole Dr 40 Mg Tablet) 40 mg PO DAILY@08 [facility] Last Admin: 10/07/20 08:33 Dose: 40 mg Documented by: Polyethylene Glycol (Polyethylene Glycol 3350 Pkt 17 Gm) 17 gm PO DAILY PRN PRN Reason: constipation Last Admin: 10/07/20 08:35 Dose: 17 gm Documented by: Potassium Chloride (Potassium Chloride Er 20 Meq Tablet) 40 meq PO DAILY [facility] Last Admin: 10/07/20 08:33 Dose: 40 meq Documented by: Fluticasone/Salmeterol (Fluticasone-Salmeterol 250-50 Diskus) 1 puff INHALATION BID.RESPIRATORY [facility] Last Admin: 10/07/20 08:55 Dose: 1 puff Documented by: Vitals/I&O/Wt Last Vital Signs Temp 98.5 F 10/07/20 10:46 Pulse 77 10/07/20 10:46 Resp 14 10/07/20 10:46 BP 137/58 10/07/20 07:09 Pulse Ox 97 10/07/20 10:46 10/06/20 10/07/20 10/07/20 22:59 06:59 14:59 Intake Total 560 / 800 100 / 900 480 / 480 Output Total 1450 / 1450 800 / 2250 400 / 400 Balance -890 / -650 -700 / -1350 80 / 80 Physical Exam Narrative: EXAM NARRATIVE: Obese woman sitting in bed in no acute distress HEENT: Extraocular movement intact. Pupils equal round reactive to light. Mild pallor with no icterus. NECK: central trachea, elevated JVD, No carotid bruit. CARDIOVASCULAR SYSTEM: S1-S2 regular, no murmur rubs or gallops appreciated. RESPIRATORY SYSTEM: Decreased breath sounds at bilateral bases. No wheezes. No use of accessory muscles. ABDOMEN: Soft, nontender and nondistended. Normal bowel sounds present. EXTREMITIES: No cyanosis or clubbing. No edema in legs. No signs of chronic venous insufficiency. SHELLFISH CHECKER: Patient is alert oriented ?3. No focal neurological deficits. SKIN: Normal turgor and temperature. PSYCH: Normal insight and judgment. Urinary Catheter Management^: [place]: Cath Placed During This Visit: yes Reason for Continuing Indwelling Catheter: Accurate Measurement of Urinary Output in Critically Ill Patients Urinary Catheter Date of Insertion: 09/25/20 Urinary Catheter Time of Insertion: 21:00 Data : 10/07/20 03:09 10/07/20 03:09 A&P Assessment and plan (1) CHF (congestive heart failure): -Repeat echo this admission with mild RV dysfunction and normal LV function. -Decompensated congestive heart failure. continue Lasix 80 mg twice a day. -Resume metolazone 5 mg p.o. tomorrow every other day. -stable to be discharged home. -f/u with me in office in 1 week. -BMP in 1 week. Status: Acute Qualifiers: Heart failure chronicity: acute on chronic Heart failure type: diastolic Qualified Code(s): I50.33 - Acute on chronic diastolic (congestive) heart failure (2) Atrial fibrillation with controlled ventricular rate: A. fib with intermittent high rates I had a long discussion with Luiza and Ness. Risk and benefit of starting on anticoagulation were discussed with the patient given the need for converting to normal rhythm. Extremely difficult to rate control in spite of multiple AV josefina blockers. She remains in rapid ventricular response in spite of significant diuresis. - Decision was made to start on Eliquis 2.5 mg twice a day and plan for BEST cardioversion. -Patient underwent BEST cardioversion with mormonism of sinus rhythm on 10/05/20. -Continue Eliquis 2.5 mg twice a day, amiodarone 200 mg and metoprolol tartrate 50 mg twice daily. Status: Acute (3) HTN (hypertension): Continue to closely monitor may have to add antihypertensive if blood pressure starts running high. Status: Acute Qualifiers: Hypertension type: essential hypertension Qualified Code(s): I10 - Essential (primary) hypertension (4) CKD (chronic kidney disease): ANSON on chronic kidney disease: resolving Status: Acute Qualifiers: Chronic kidney disease stage: stage 4 (severe) Qualified Code(s): N18.4 - Chronic kidney disease, stage 4 (severe) (5) Anemia: Anemia -History of Hemoccult positive; unable to do further GI work-up as an outpatient given recurrent CHF exacerbation and A. fib with RVR. -Needed 1 unit of blood transfusion last admission and approximately 3 to 4 units in the admission before that. -No blood transfusions this hospitalization so far. Status: Acute Qualifiers: Anemia type: unspecified type Qualified Code(s): D64.9 - Anemia, unspecified Additional A&P Information Bilateral pleural effusion : Will possibly need thoracentesis. Hypokalemia: replaced Elevated troponin in setting of decompensated congestive heart failure and underlying kidney disease. Hypoalbuminemia H/O COVID PNA Metabolic alkalosis. Hypothyroidism DM type II Thank you for allowing me to participate in patient's care. Please feel free to call with questions or concerns. Attestations Medical Necessity Statement*: stable to be discharged home from cardiac standpoint. Coding Level of Care Code Acute Puzzle Assembler for Maria G Fwd Diagnoses CHF (congestive heart failure) I50.33 Heart failure chronicity: acute on chronic Heart failure type: diastolic Atrial fibrillation with controlled ventricular rate I48.91 HTN (hypertension) I10 Hypertension type: essential hypertension CKD (chronic kidney disease) N18.4 Chronic kidney disease stage: stage 4 (severe) Anemia D64.9 Anemia type: unspecified type
--- NOTE | 2020-10-07 16:27 | P.DS_ITS ---
Discharge Providers Date of Admission: 09/25/20 13:00 Date of Discharge: October 08, 2020 Attending Provider at Admission: Gabriele Rosales MD Attending Provider at Discharge: Brittany Hernandez Primary Care Provider: Mann Garduno MD Diagnoses at Discharge Discharge Diagnosis (1) ANSON (acute kidney injury): Status: Acute (2) Acute exacerbation of CHF (congestive heart failure): Status: Acute (3) Anemia: Status: Acute Qualifiers: Anemia type: unspecified type Qualified Code(s): D64.9 - Anemia, unspecified (4) Diabetes: Status: Acute (5) HTN (hypertension): Status: Acute Qualifiers: Hypertension type: essential hypertension Qualified Code(s): I10 - Essential (primary) hypertension (6) Hypoxemia: Status: Acute Reason for Visit Reason for Visit: SOB/tested + for covid aug 02 Hospital Course Hospital Course 80 year old female presenting to the hospital with increasing shortness of breath and edema. She has had several recent hospitalizations, 1 for Covid and 1 for heart failure. She was most recently discharged on September 11. She denies any chest pain. She has had no fevers. She does have occasional cough. There has been no vomiting. She has had to increase her oxygen at home to 3 L. Patient and daughter both report that overall her atrial fibrillation has been controlled at home with heart rate resting less than 100. Eliquis was discontinued at her last hospital stay secondary to anemia. She was also noted to have heme positive stool at that time. Discharge summary based on problem list: AFIB with RVR s/p BEST cardio-version now NSR - Cardiology assisted in management - Metoprolol 50 mg PO BID - Eliquis 2.5 mg PO BID - To follow up with cardiology outpatient - Remained in NSR at discharge Acute on chronic HFpEF exacerbation with moderate R.pleural effusion - Initially diuresed agressively with 80 mg IV BID, Metalazone which was transitioned to : - Lasix 80 mg PO BID at discharge - Metolazone 5mg daily - held - Monitor daily weight at home - ECHO EF 55-60%, RAP 15mmhg Acute on chronic hypoxiemic respiratory failure - Nn 3L at home. currently on 3-4L - Was on 3L on day of discharge - Home o2 eval and oxygen arrangement was completed Acute kidney failure on chronic stage 3 kidney disease - Creatinine 2.5 - 2.4 -> 2.5 - . 2.7 - Follow up with nephrology outpatient - Renal US - No hydronephrosis - Likely at new baseline Anemia - Previously required multiple transfusion - Was resumed on eliquis 2.5 mg PO BID - Aspirin was stopped - Hgb remained stable with out any evidence of bleeding Diabetes Mellitus with hypoglycemic episodes - QACHS checks to continue at home - Sliding scale insulin - Lantus 5 units qhs - No further nocturnal hypoglycemia after decrease in lantus dose Hypertension - Meds as above - Management per cardiology Elevated d dimer - VQ indeterminate, duplex neg for DVT in Aug - Eliquis 2.5 mg PO BID Hypothyroidism - TSH stable in July - Synthroid 75 mcg po daily UTI - Enterococcus - Completed levaquin during hospitalization - Monitor off abx Patient was cleared for discharge from cardiology standpoint on 10/07/20 Physical Exam Narrative: EXAM NARRATIVE: General exam no apparent distress on 3L of o2 via NC Neck is supple no lymphadenopathy or thyromegaly Cardiovascular irregular, irregular with no murmur. Lungs crackles bilaterally. No wheezing. Abdomen is soft nontender with positive bowel sounds. No obvious organomegaly Extremities no cyanosis or clubbing. 1+ edema is noted Cardio: COMMON NORMALS: regular rate RATE: regular rate Urinary Catheter Management^: Corral: Cath Placed During This Visit: yes, but has since been removed by the nurse Reason for Continuing Indwelling Catheter: Accurate Measurement of Urinary Output in Critically Ill Patients Urinary Catheter Date of Insertion: 09/25/20 Urinary Catheter Time of Insertion: 21:00 Date Urinary Catheter Removed: 10/07/20 Time Urinary Catheter Discontinued: 12:11 Discharge Data Data Completed and Pending: Completed Studies During Hospitalization Category Date Time Status CT chest wo con 7 1250 Routine Cat Scan 10/04/20 06:36 Completed XR chest 1V toñito ble [id number] Routine Exams 09/29/20 11:23 Completed XR chest 1V toñito ble [id number] Routine Exams 10/02/20 07:00 Completed XR chest 1V toñito ble [id number] Routine Exams 10/04/20 07:00 Completed XR chest 1V toñito ble [id number] Stat Exams 09/25/20 05:23 Completed NM pul vent and p erfus* [id number] Stat Nuc Med 09/25/20 07:33 Completed CV echo limited 9 5506 Routine Ultrasound 09/26/20 07:00 Completed US abdomen comple te* [id number] Routine Ultrasound 10/01/20 18:39 Completed Pending at discharge Category Date Time Status CV echo transesop hageal [id number] Routi ne Ultrasound 10/05/20 12:00 Taken Vitals: Last Vital Signs Temp 98.2 F 10/07/20 17:46 Pulse 71 10/07/20 17:46 Resp 17 10/07/20 17:46 BP 148/66 10/07/20 17:46 Pulse Ox 98 10/07/20 17:46 Discharge Plan Discharge Patient Disposition: Home Condition: Stable Prescriptions: New furosemide 40 mg Tablet 80 mg PO BID@08,16 Qty: 60 RF: 0 atorvastatin 40 mg Tablet 20 mg PO BEDTIME Qty: 30 RF: 0 Klor-Con M20 20 mEq Tablet,Er Particles/Crystals 20 meq PO DAILY Qty: 30 RF: 0 metoprolol tartrate 50 mg Tablet 50 mg PO BID@0900,2100 Qty: 60 RF: 0 Eliquis 5 mg Tablet 2.5 mg PO Q12H Qty: 30 RF: 0 Continued ferrous sulfate 325 mg (65 mg iron) tablet 325 mg PO TID@08,12,20 RF: 0 insulin lispro [Humalog U-100 Insulin] 100 unit/mL solution See Rx Instructions .ROUTE .COMPLEX RF: 0 levothyroxine 75 mcg tablet 75 mcg PO DAILY@08 RF: 0 doxazosin 2 mg tablet 2 mg PO BEDTIME@20 RF: 0 pantoprazole 40 mg tablet,delayed release (DR/EC) 40 mg PO DAILY@08 Qty: 60 RF: 2 fluticasone propion-salmeterol [Advair Diskus] 250-50 mcg/dose blister with device 1 ea inhalation BID@0800,1999 RF: 0 albuterol sulfate 90 mcg/actuation HFA aerosol inhaler 1 puff INHALATION Q6H PRN (Reason: Shortness Of Breath) RF: 0 Pacerone 200 mg tablet 200 mg PO DAILY RF: 0 folic acid 1 mg tablet 1 mg PO DAILY@1200 RF: 0 mirtazapine 15 mg tablet 15 mg PO BEDTIME@1999 RF: 0 Vitamin B-12 1,000 mcg Tablet 1,000 mcg PO DAILY@0800 RF: 0 acetaminophen [Tylenol Extra Strength] 500 mg Tablet 500 - 1,000 mg PO PRN PRN (Reason: PAIN) RF: 0 Changed Lantus U-100 Insulin 100 unit/mL solution 5 unit SUBCUT BEDTIME@20 Qty: 0 RF: 0 Discontinued coenzyme Q10 [CoQ-10] 100 mg capsule 100 mg PO DAILY@18 RF: 0 docusate sodium [Stool Softener] 100 mg capsule 100 mg PO DAILY@08 RF: 0 potassium chloride [Klor-Con M10] 10 mEq tablet,ER particles/crystals 20 meq PO DAILY@08 RF: 0 atorvastatin 10 mg tablet 5 mg PO DAILY@18 RF: 0 hydrocodone-acetaminophen 5-325 mg tablet 1 tab PO Q6H PRN (Reason: pain) Qty: 15 RF: 0 aspirin 81 mg Tablet,Chewable 81 mg PO DAILY@18 RF: 0 furosemide [Lasix] 20 mg tablet 40 mg PO BID@0800,1800 RF: 0 metoprolol tartrate 50 mg Tablet 100 mg PO BID@0900,2100 30 Days Qty: 60 RF: 0 metoprolol succinate 100 mg tablet extended release 24 hr 100 mg PO DAILY@0900,2100 RF: 0 diltiazem HCl 300 mg capsule,extended release 24hr 360 mg PO DAILY@0800 RF: 0 Discharge Orders: Discharge Order (Routine); Ordered 10/07/20 Ordered By: Brittany Hernandez Referrals: Lory Egan MD [Physician] - 2 weeks ([facility] will contact you tomorrow to schedule an appointment to be seen by Dr. Egan in 2 weeks. If you have not heard from them by Thursday afternoon, please call to schedule your appointment. Thank you. ) Mann Garduno MD [Primary Care Provider] - 4-7 days ([facility] will contact you tomorrow to schedule your follow up appointment to see Dr. Garduno. If you don't hear from them by Thursday afternoon, please call to schedule your appointment. Thank you. ) Discharge Diet: Cardiac and Diabetic Discharge Activity: Increase activity as tolerated Patient Instructions: Type 2 Diabetes, Metoprolol (By mouth), Furosemide (By mouth), Potassium Chloride (By mouth), Atorvastatin (By mouth), Apixaban (By mouth), Atrial Fibrillation (DC), Cardioversion (DC), Acute Kidney Injury (DC), Chronic Hypertension (DC) Discharge Attestations Time Spent in Discharge Care*: greater than 30 min Specific Discharge Activities: educating patient, discussing with pcp/other providers, discussing with disease case manager rn/social workers/dc planners, documenting/other paperwork and evaluating patient/reviewing data Status at Discharge: Cognitive status at discharge: cognitively intact , Behavioral status at discharge: cooperative , Functional status at discharge: uses cane/walker Overall status at discharge: patient is progressing back to baseline Quality Metrics Clinical Quality Measures During this hospital stay, did patient experience: None Coding Level of Care Code Acute Residential Air Sealing Technician for Victor Manuelg Fwd Diagnoses ANSON (acute kidney injury) N17.9 Acute exacerbation of CHF (congestive heart failure) I50.9 Anemia D64.9 Anemia type: unspecified type Diabetes E11.9 HTN (hypertension) I10 Hypertension type: essential hypertension Hypoxemia R09.02
--- NOTE | 2020-10-07 17:05 | PC.NURSE ---
Discharge instructions given per the physician's orders. Patient verbalized understanding of teaching and medication adjustments. Patient stated that Dr. Egan had mentioned a second diuretic not on dc paperwork. Nurse clarified with Dr. Egan via telephone. Telephone order received to start patient on metolazone 5 mg every other day. dose instructions: take 30 minutes prior to lasix. Rx called in to [facility]. No further needs identified at this time. IV has been removed. Patient daughter assisted the patient with dressing. Nurse to continue to monitor.
== END 2020-10-07 17:20 | disposition home or self-care (01) | DRG 291 ==
LOC: ER 14:23 → ER IP 14:26 → CSU 19:02
PROVIDERS: Emergency Medicine; Internal Medicine; Internal Medicine Cardiovascular Disease; Admitting Provider Internal Medicine; Emergency Provider Family Medicine; PCP Family Medicine; Visit Provider Hospitalist
PROC: (CPT 93312; principal; 2020-10-05 12:00)
DX: I13.0 Hypertensive heart and chronic kidney disease with heart failure and stage 1 through stage 4 chronic kidney disease, or unspecified chronic kidney disease (principal); I50.33 Acute on chronic diastolic (congestive) heart failure; J96.21 Acute and chronic respiratory failure with hypoxia; N18.4 Chronic kidney disease, stage 4 (severe); N39.0 Urinary tract infection, site not specified; N17.9 Acute kidney failure, unspecified; E87.3 Alkalosis; E11.22 Type 2 diabetes mellitus with diabetic chronic kidney disease; E11.649 Type 2 diabetes mellitus with hypoglycemia without coma; Z86.16 Personal history of COVID-19; K21.9 Gastro-esophageal reflux disease without esophagitis; E03.9 Hypothyroidism, unspecified; Z98.1 Arthrodesis status; Z87.891 Personal history of nicotine dependence; D63.1 Anemia in chronic kidney disease; E78.5 Hyperlipidemia, unspecified; E66.9 Obesity, unspecified; Z68.35 Body mass index [BMI] 35.0-35.9, adult; Z87.01 Personal history of pneumonia (recurrent); E83.42 Hypomagnesemia; E87.6 Hypokalemia; K59.00 Constipation, unspecified; Z79.4 Long term (current) use of insulin; I34.0 Nonrheumatic mitral (valve) insufficiency; B95.2 Enterococcus as the cause of diseases classified elsewhere
CPT/HCPCS: 12345; 36415; 36416; 36600; 51702; 71045; 71250; 76700; 78014; 80048; 80053; 81001; 82803; 82962; 83036; 83605; 83735; 83880; 84145; 84484; 85025; 85378; 86140; 87077; 87086; 87186; 92960; 93005; 93308; 93312; 93320; 93325; 94640; 96372; 97110; 97116; 97161; 97530; 99284; A9540; A9567; J1120; J1265; J1650; J1815 ×2; J1940; J1956; J2704; J3475; J3480; J3535; J7030; P9047

== ENCOUNTER 2020-10-10 08:19 | Outpatient (CLI) | payer MEDICARE, BC, SELFPAY | END 2020-10-10 08:20 | disposition home or self-care (01) | LOC: WOUND 08:20 | PROVIDERS: PCP Family Medicine; Visit Provider Thoracic Surgery (Cardiothoracic Vascular Surgery) | DX: L89.312 Pressure ulcer of right buttock, stage 2 (principal) | CPT/HCPCS: 11042; G0463 ==

== ENCOUNTER → 2020-10-12 10:33 | Outpatient (BNVA) | payer MEDICARE, BC, SELFPAY | PROVIDERS: PCP Family Medicine; Visit Provider Internal Medicine Cardiovascular Disease | DX: I50.33 Acute on chronic diastolic (congestive) heart failure (principal); D64.9 Anemia, unspecified; I48.91 Unspecified atrial fibrillation; N18.4 Chronic kidney disease, stage 4 (severe) | CPT/HCPCS: 80053; 83735; 83880; 85025 ==

== ENCOUNTER 2020-10-17 08:47 | Outpatient (CLI) | payer MEDICARE, BC, SELFPAY | END 2020-10-17 08:48 | disposition home or self-care (01) | LOC: WOUND 08:48 | PROVIDERS: PCP Family Medicine; Visit Provider Thoracic Surgery (Cardiothoracic Vascular Surgery) | DX: Z09 Encounter for follow-up examination after completed treatment for conditions other than malignant neoplasm (principal) | CPT/HCPCS: 99212 ==

== ENCOUNTER 2020-10-20 13:06 | Inpatient (IN) | payer MEDICARE, BC, SELFPAY ==
[2020-10-20] VITALS (8 sets, daily range): BP systolic 115–186; BP diastolic 66–101; PULSE 72–81; RESP 14–21; TEMP 36.4–37.1; O2SAT 92–98; BMI 28.7
--- NOTE | 2020-10-20 13:58 | ECG_ITS ---
[facility] Test Date: 2020-10-20 Pat Name: Luiza Cooper Department: Room: Gender: Female Advertising Teacher: BOBBY WELLSB: 1940 Requested By: Zachariah Rondon Order Number: [id number] Casper MD: Tony Villatoro M.D. Measurements Intervals Sebastian Rate: 71 P: 5 SC: 171 QRS: 37 QRSD: 90 T: 60 QT: 408 QTc: 445 Interpretive Statements SINUS RHYTHM Compared to ECG 10/05/2020 12:56:38 Sinus arrhythmia no longer present Electronically Signed On 10-20-2020 15:27:18 TOBACCO WAREHOUSE AGENT by Tony Villatoro M.D. [id number]
--- NOTE | 2020-10-20 13:58 | XRR_ITS ---
PROCEDURE INFORMATION: Exam: XR Chest, 1 View Exam date and time: 10/20/2020 1:59 PM Age: 80 years old Clinical indication: Shortness of breath; Additional info: Dyspnea/cough TECHNIQUE: Imaging protocol: XR of the chest Views: 1 view. COMPARISON: CT chest con [id number] 10/04/2020 8:26 AM FINDINGS: Lungs: There is scarring or atelectasis at the right base. There are probable foci of subpleural curvilinear scarring in the lateral left chest. A small loculated pneumothorax could have a similar appearance. Pleural spaces: No pleural effusion. Heart/Mediastinum: The heart is enlarged. No gross evidence of pneumomediastinum. Bones/joints: No gross fracture. XR/XR chest 1V portable [id number] IMPRESSION: 1. There are probable foci of subpleural curvilinear scarring in the lateral left chest. A small loculated pneumothorax could have a similar appearance. Recommend CT chest to further assess. 2. Stable cardiomegaly.
--- NOTE | 2020-10-20 13:58 | CTR_ITS ---
PROCEDURE INFORMATION: Exam: CT Head Without Contrast Exam date and time: 10/20/2020 2:01 PM Age: 80 years old Clinical indication: Altered mental status/memory loss. Confusion or disorientation. Worsening altered mental status for 3 days. TECHNIQUE: Imaging protocol: Computed tomography of the head without contrast. Radiation optimization: All CT scans at this facility use at least one of these dose optimization techniques: automated exposure control; mA and/or kV adjustment per patient size (includes targeted exams where dose is matched to clinical indication); or iterative reconstruction. COMPARISON: CT head wo con* [id number] 08/02/2020 1:34 PM RADIATION DOSE METRICS: Total DLP (mGy-cm): 840.14 FINDINGS: Brain: No acute intracranial hemorrhage. There is a partially calcified dural-based mass in the right middle cranial fossa anteriorly that is approximately unchanged. This likely represents a meningioma. There is a calcified subdural structure in the right parietal region that measures 0.7 cm. This is suspicious for an involuted meningioma. There is no evidence of acute large vessel infarct. There is mild patchy subcortical and periventricular hypodensity, most commonly associated with small vessel ischemic disease of indeterminate age. The posterior fossa is grossly unremarkable; however, it is partially obscurred by beam hardening artifact. Cerebral ventricles: There is moderate dilatation of the ventricular system that appears grossly similar to prior. Considerations include parenchymal volume loss or normal pressure hydrocephalus. Correlate clinically. Bones/joints: No acute fracture is seen. Paranasal sinuses: The visualized paranasal sinuses are clear. Mastoid air cells: No mastoid effusion. Orbital cavity: The visualized orbits are unremarkable. CT/CT head wo con* [id number] IMPRESSION: 1. There is moderate dilatation of the ventricular system that appears grossly similar to prior. Considerations include parenchymal volume loss or normal pressure hydrocephalus. Correlate clinically. 2. No acute intracranial hemorrhage. 3. Probable benign meningiomas; similar to prior. Radiation Dose CTDIVOL = (mGy): DLP = 840.14 (mGy-cm)
--- NOTE | 2020-10-20 14:07 | W.ED.NEUROSD ---
HPI - Neuro Symptoms/Deficit General: Chief Complaint: Neuro Symptoms/Deficit Stated Complaint: confusion Time Seen by Provider: 10/20/20 13:34 History of Present Illness: HPI Narrative: 80-year-old female brought to the emergency room by family with acute confusion. Over the last 3 days she has been markedly more confused than her usual baseline. She is disoriented in terms of time place she can still recognize family members in the exam room she cannot even answer simple questions date time place her. Family says earlier in the week she could have answered all of those questions. I had thought she might have had a bladder infection had her screened with a urinalysis yesterday which was negative. Onset (ago): day(s) Timing confirmed by: family member History of same: Yes Severity: moderate Relieving factors: none Exacerbating factors: none Context: sudden onset Associated symptoms: Deny chest pain, cough, diaphoresis, fevers/chills, headache(s), anorexia, malaise, nausea, seizures, short of breath, syncope, tingling, vertigo, vomiting or weakness Treatments Prior to Arrival: none Review of Systems Const: Denies: diaphoresis ENMT: Denies: throat pain, ear or mastoid pain, nasal discharge or nasal congestion Card: Denies: chest pain or syncope Resp: Denies: dyspnea, productive cough or non-productive cough GI: Denies: nausea or vomiting : Denies: flank pain, difficulty voiding, dysuria, urinary frequency or urinary urgency Skin/Breast: Denies: rash or pruritus Neuro: Denies: headache(s) or vertigo PFS ED PFSH: Medical History (Updated 10/22/20 @ 15:57 by Zachariah Brock DO) Atrial fibrillation CHF (congestive heart failure) CKD (chronic kidney disease) COVID-19 Diagnosed 08/02/2020 Diabetes GERD (gastroesophageal reflux disease) HTN (hypertension) Hypothyroidism Meningioma PVC (premature ventricular contraction) Surgical History S/P cataract extraction S/P cervical spinal fusion S/P tonsillectomy Status post tubal ligation Family History Mother Hypertension Grandmother Hypertension MATERNAL Other Cancer Diabetes Social History Smoking and tobacco status: former smoker Quit status (tobacco): has quit using tobacco Year quit tobacco: 1977 [id number] Second hand smoke exposure: Yes Smoking risk assessment/counseling performed?: Yes Alcohol intake: never Caregiver/support person: Yes Lives independently: Yes Household members: spouse and children Housing: House Marital status: Current occupational status: retired Pets and animals: Yes History of recent travel: No Current gender identity: Female NIH stroke score NIHSS: Level Of Consciousness - 1a: 0 Level Of Consciousness Questions - 1b: Neither Correct Level Of Consciousness Commands - 1c: Both Correct Best Gaze - 2: Normal Visual Dominguez - 3: No Visual Loss Facial Palsy - 4: Normal Motor Arm Right - 5: No Drift Motor Arm Left - 5: No Drift Motor Leg Right - 6: No Drift Motor Leg Left - 6: No Drift Limb Ataxia - 7: Absent Sensory - 8: Normal Best Language - 9: No Aphasia Dysarthia - 10: Normal Extinction And Inattention - 11: 0 Score: Total Score: 2 Physical Exam Const: COMMON NORMALS: no acute distress GENERAL APPEARANCE: cooperative and comfortable ORIENTATION/CONSCIOUSNESS: Yes awake, Yes oriented to person, Yes oriented to place and Yes oriented to time HENMT: COMMON NORMALS: normocephalic, atraumatic and hearing grossly normal bilaterally HEAD & SCALP: normocephalic and atraumatic Neck/C-Spine: COMMON NORMALS: no JVD Resp: COMMON NORMALS: normal respiratory effort, No retractions, No use of accessory muscles and clear to auscultation bilaterally AUSCULTATION: clear to auscultation bilaterally Cardio: COMMON NORMALS: no JVD, regular rate, regular rhythm and No murmurs present (Cardio) RATE: regular rate RHYTHM: regular rhythm GI: COMMON NORMALS: Soft to palpation and No hepatosplenomegaly present AUSCULTATION: Yes normoactive bowel sounds PALPATION: Yes Soft to palpation, No Tenderness to palpation present (GI), No Guarding due to palpation present (GI) and Yes No hepatosplenomegaly present Extremity: COMMON NORMALS: normal to inspection, capillary refill normal, no clubbing, cyanosis or edema, no calf tenderness and no pedal edema Neuro: SENSORIUM/ORIENTATION: Yes oriented to person, Yes oriented to place and Yes oriented to time Skin: COMMON NORMALS: no rashes or lesions noted GENERAL SKIN EXAM: no rashes or lesions noted Course Vital Signs: Vital signs: Vital Signs Temperature 98.7 F 10/22/20 15:48 Pulse Rate 79 10/22/20 15:48 Respiratory Rate 18 10/22/20 15:48 Blood Pressure 170/76 10/22/20 15:48 Pulse Oximetry 99 10/22/20 15:48 MDM - Neuro Symptoms/Deficit MDM Narrative: Medical decision making narrative: Discussed Dr. Hercules will admit for altered mental status elevated blood pressure. She has an chronic kidney disease as well Lab Data: Labs: Lab Results 10/20/20 10/20/20 10/20/20 Range/Units 14:05 14:05 14:05 WBC 11.4 H (4.0-10.0) 10^3/ uL RBC 3.80 L (4.1-5.3) 10^6/u L Hgb 11.2 L (11.5-15.3) g/dL Hct 35.9 L (37.0-47.0) % MCV 94.5 (81-99) fL MCH 29.5 (28.0-34.0) pg MCHC 31.2 (30.0-36.0) g/dL RDW 14.4 (12.1-15.1) % Plt Count 268 (130-400) 10^3/c mm MPV 10.4 (7.4-10.4) fL Neut % (Auto) 70.1 % Lymph % (Auto) 20.7 % Hardee % (Auto) 5.1 % Eos % (Auto) 2.4 % Baso % (Auto) 0.8 % Neut # (Auto) 8.03 H (1.8-7.7) 10^3/u L Lymph # (Auto) 2.4 (0.8-4.8) 10^3/u L Hardee # (Auto) 0.6 (0.2-0.9) 10^3/u L Eos # (Auto) 0.3 (0.0-0.8) 10^3/u L Baso # (Auto) 0.1 (0.0-0.1) 10^3/u L Nucleated RBC % (a uto) 0 % Nucleated RBCs # 0.0 /100WBC Sodium 136 (136-145) mmol/L Potassium 4.0 (3.5-5.1) mmol/L Chloride 93 L (98-107) mmol/L Carbon Dioxide 32 H (22-29) mmol/L Anion Gap 15.0 (5-19) BUN 31 H (8-23) mg/dL Creatinine 1.8 H (0.5-0.9) mg/dL GFR Calculation Not Reportable Glucose 170 H (65-115) mg/dL Calculated Osmolal ity 293 (285-295) mOsm/k g Calcium 10.5 (8.5-10.5) mg/dL Total Bilirubin 0.3 (0.15-1.2) mg/dL AST 18 (0-32) U/L ALT 17 (0-33) U/L Alkaline Phosphata se 90 (35-105) IU/L Creatine Kinase 40 (26-192) U/L Total Protein 7.5 (6.6-8.7) g/dL Albumin 4.0 (3.5-5.2) g/dL Globulin 3.5 (1.3-4.6) g/dL TSH 9.40 H (0.27-4.20) uIU/ mL Urine Color (Yellow) Urine Appearance (CLEAR) Urine pH (5-7) Ur Specific Gravit y (1.005-1.030) Urine Protein (Negative) Urine Glucose (UA) (Normal) Urine Ketones (Negative) Urine Blood (Negative) Urine Nitrate (Negative) Urine Bilirubin (Negative) Urine Urobilinogen (Negative) mg/dL Ur Leukocyte Chika ase (Negative) Urine RBC (0-2) /hpf Urine WBC (0-5) /hpf Ur Squamous Epith Cells (0-5) /hpf Amorphous Sediment Urine Bacteria (NONE) /hpf Hyaline Casts /lpf Urine Mucus /hpf 10/20/20 Range/Units 14:33 WBC (4.0-10.0) 10^3/ uL RBC (4.1-5.3) 10^6/u L Hgb (11.5-15.3) g/dL Hct (37.0-47.0) % MCV (81-99) fL MCH (28.0-34.0) pg MCHC (30.0-36.0) g/dL RDW (12.1-15.1) % Plt Count (130-400) 10^3/c mm MPV (7.4-10.4) fL Neut % (Auto) % Lymph % (Auto) % Hardee % (Auto) % Eos % (Auto) % Baso % (Auto) % Neut # (Auto) (1.8-7.7) 10^3/u L Lymph # (Auto) (0.8-4.8) 10^3/u L Hardee # (Auto) (0.2-0.9) 10^3/u L Eos # (Auto) (0.0-0.8) 10^3/u L Baso # (Auto) (0.0-0.1) 10^3/u L Nucleated RBC % (a uto) % Nucleated RBCs # /100WBC Sodium (136-145) mmol/L Potassium (3.5-5.1) mmol/L Chloride (98-107) mmol/L Carbon Dioxide (22-29) mmol/L Anion Gap (5-19) BUN (8-23) mg/dL Creatinine (0.5-0.9) mg/dL GFR Calculation Glucose (65-115) mg/dL Calculated Osmolal ity (285-295) mOsm/k g Calcium (8.5-10.5) mg/dL Total Bilirubin (0.15-1.2) mg/dL AST (0-32) U/L ALT (0-33) U/L Alkaline Phosphata se (35-105) IU/L Creatine Kinase (26-192) U/L Total Protein (6.6-8.7) g/dL Albumin (3.5-5.2) g/dL Globulin (1.3-4.6) g/dL TSH (0.27-4.20) uIU/ mL Urine Color Yellow (Yellow) Urine Appearance Clear (CLEAR) Urine pH 6.5 (5-7) Ur Specific Gravit y 1.005 (1.005-1.030) Urine Protein 1+ H (Negative) Urine Glucose (UA) 1+ (Normal) Urine Ketones Negative (Negative) Urine Blood Neg (Negative) Urine Nitrate Negative (Negative) Urine Bilirubin Neg (Negative) Urine Urobilinogen Norm (Negative) mg/dL Ur Leukocyte Chika ase Negative (Negative) Urine RBC None (0-2) /hpf Urine WBC None (0-5) /hpf Ur Squamous Epith Cells None (0-5) /hpf Amorphous Sediment Not Reportable Urine Bacteria Trace (NONE) /hpf Hyaline Casts 0-4 H /lpf Urine Mucus Trace /hpf Discharge Plan Discharge Patient Disposition: Home Clinical Impression: AMS (altered mental status), Diabetes, CKD (chronic kidney disease), CHF (congestive heart failure), HTN (hypertension) Condition: Stable Discharge Diet: Low Salt Discharge Activity: Resume usual activity Coding Level of Care Code ED Occupational Safety And Health Manager for Chg Fwd Exam Comprehensive
[2020-10-20 14:30] LABS: Basophils # 0.1 10^3/uL (0.0-0.1); Basophils % 0.8 %; Eosinophils # 0.3 10^3/uL (0.0-0.8); Eosinophils % 2.4 %; Hematocrit 35.9 % (37.0-47.0); Hemoglobin 11.2 g/dL (11.5-15.3); Lymphocytes # 2.4 10^3/uL (0.8-4.8); Lymphocytes % 20.7 %; Mean Corpuscular HGB Conc 31.2 g/dL (30.0-36.0); Mean Corpuscular Hemoglobin 29.5 pg (28.0-34.0); Mean Corpuscular Volume 94.5 fL (81-99); Mean Platelet Volume 10.4 fL (7.4-10.4); Monocytes # 0.6 10^3/uL (0.2-0.9); Monocytes % 5.1 %; Neutrophils # 8.03 10^3/uL (1.8-7.7); Neutrophils % 70.1 %; Nucleated Red Blood Cells % 0 %; Platelet Count 268 10^3/cmm (130-400); Red Cell Distribution Width 14.4 % (12.1-15.1); White Blood Count 11.4 10^3/uL (4.0-10.0)
[2020-10-20 14:41] LABS: Alanine Aminotransferase 17 U/L (0-33); Alkaline Phosphatase 90 IU/L (35-105); Aspartate Amino Transferase 18 U/L (0-32); Blood Urea Nitrogen 31 mg/dL (8-23); Calcium 10.5 mg/dL (8.5-10.5); Carbon Dioxide 32 mmol/L (22-29); Chloride 93 mmol/L (98-107); Creatine Phosphokinase 40 U/L (26-192); Creatinine Clr Calc Pharmacy 23.0388; Globulin 3.5 g/dL (1.3-4.6); Glucose 170 mg/dL (65-115); Osmolality Calculated 293 mOsm/kg (285-295); Sodium 136 mmol/L (136-145); Total Bilirubin 0.3 mg/dL (0.15-1.2); Total Protein 7.5 g/dL (6.6-8.7)
--- NOTE | 2020-10-20 15:45 | CTR_ITS ---
PROCEDURE INFORMATION: Exam: CT Chest Without Contrast; Diagnostic Exam date and time: 10/20/2020 4:29 PM Age: 80 years old Clinical indication: Possible pneumothorax TECHNIQUE: Imaging protocol: Diagnostic computed tomography of the chest without contrast. Radiation optimization: All CT scans at this facility use at least one of these dose optimization techniques: automated exposure control; mA and/or kV adjustment per patient size (includes targeted exams where dose is matched to clinical indication); or iterative reconstruction. COMPARISON: CT chest [facility] [id number] 10/04/2020 8:26 AM RADIATION DOSE METRICS: Total DLP (mGy-cm): 551.77 FINDINGS: Lungs: There is diffuse subpleural reticulation raising concern for interstitial lung disease/developing pulmonary fibrosis. There are probable foci of subsegmental atelectasis or scarring in the left upper lobe and lingula. No pulmonary consolidation. No pulmonary mass. Pleural spaces: No pleural effusion. No pneumothorax. Heart: No pericardial effusion. Coronary arterial calcifications are noted. Mediastinal space: No hiatal hernia. Aorta: No thoracic aortic aneurysm. Lymph nodes: A right paratracheal lymph node measures 1.0 x 1.9 cm. Calcified mediastinal and bilateral hilar lymph nodes are seen. Liver: Calcifications in the liver and spleen likely reflect prior, healed granulomatous disease. Bones/joints: No acute fracture is identified. Soft tissues: There are calcified granulomata bilaterally. CT/CT chest con [id number] IMPRESSION: 1. No pneumothorax is seen. 2. There is diffuse subpleural reticulation raising concern for interstitial lung disease/developing pulmonary fibrosis. Consider nonemergent high-resolution CT chest interstitial protocol to further assess. 3. Coronary artery disease. 4. Mild mediastinal lymphadenopathy. Radiation Dose CTDIVOL = (mGy): DLP = 551.77 (mGy-cm)
[2020-10-20 15:46] LABS: Bilirubin Urine Neg (Negative); Blood Urine Neg (Negative); Glucose Urine UA 1+ (Normal); Ketones Urine Negative (Negative); Leukocyte Esterase Urine Negative (Negative); Nitrate Urine Negative (Negative); Protein Urine 1+ (Negative); Specific Gravity, Urine 1.005 (1.005-1.030); Urine Appearance Clear (CLEAR); Urine Color Yellow (Yellow); Urobilinogen Urine Norm (Negative); pH Urine 6.5 (5-7)
[2020-10-20 15:47] LABS: Add Urine Microscopic? YES
[2020-10-20 15:56] LABS: Bacteria Urine TRACE /hpf; Hyaline Casts Urine 0-4 /lpf; Mucus Urine TRACE /hpf
[2020-10-20 15:57] LABS: Add Urine Culture? No
--- NOTE | 2020-10-20 20:00 | PC.NURSE ---
Patient is alert to self and place. Patient does not remember her date. Patient has a lower partial plate and states she did receive a COVIID vaccination as well as the FLU shot. Bed alarm turned on and patient reminded to call before she gets up. Patient is not sure if she is on oxygen at home or not. Patient knows she has oxygen at home she is just not if she still uses it.
[2020-10-20] MEDS: budesonide 0.5 mg/2 mL Neb 0.25 MG INHALATION (20:03)
[2020-10-20] MEDS: ipratropium-albuterol 3 mL Neb INHALATION (20:03)
[2020-10-20 20:44] LABS: Glucose Point of Care 261 mg/dL (70-110)
[2020-10-20] MEDS: sodium chloride 0.9% 1,000 ML 100 ML IV (20:44)
[2020-10-20] MEDS: amlodipine 10 mg Tablet PO (20:45)
[2020-10-20] MEDS: doxazosin 4 mg Tablet 2 MG PO (20:45)
[2020-10-20] MEDS: mirtazapine 15 mg Tablet PO (20:45)
[2020-10-20] MEDS: apixaban 5 mg Tablet 2.5 MG PO (20:45)
[2020-10-20] MEDS: metoprolol tartrate 25 mg Tablet PO (20:46)
[2020-10-20] MEDS: atorvastatin 40 mg Tablet PO (20:49)
[2020-10-21] VITALS (11 sets, daily range): BP systolic 135–175; BP diastolic 64–73; PULSE 70–88; RESP 14–20; TEMP 36.3–37.2; O2SAT 91–100
[2020-10-21] MEDS: ipratropium-albuterol 3 mL Neb INHALATION ×3 (02:23→20:30)
[2020-10-21 04:41] LABS: Basophils # 0.1 10^3/uL (0.0-0.1); Basophils % 0.7 %; Eosinophils # 0.3 10^3/uL (0.0-0.8); Eosinophils % 2.7 %; Hematocrit 31.2 % (37.0-47.0); Hemoglobin 9.8 g/dL (11.5-15.3); Lymphocytes % 31.2 %; Mean Corpuscular HGB Conc 31.4 g/dL (30.0-36.0); Mean Corpuscular Hemoglobin 29.4 pg (28.0-34.0); Mean Corpuscular Volume 93.7 fL (81-99); Mean Platelet Volume 10.5 fL (7.4-10.4); Monocytes # 0.7 10^3/uL (0.2-0.9); Monocytes % 6.9 %; Neutrophils # 5.52 10^3/uL (1.8-7.7); Neutrophils % 57.6 %; Nucleated Red Blood Cells % 0 %; Platelet Count 229 10^3/cmm (130-400); Red Blood Count 3.33 10^6/uL (4.1-5.3); Red Cell Distribution Width 14.3 % (12.1-15.1); White Blood Count 9.6 10^3/uL (4.0-10.0)
[2020-10-21 05:16] LABS: Alanine Aminotransferase 14 U/L (0-33); Albumin Level 3.2 g/dL (3.5-5.2); Alkaline Phosphatase 69 IU/L (35-105); Anion Gap 15.7 (5-19); Aspartate Amino Transferase 15 U/L (0-32); Blood Urea Nitrogen 29 mg/dL (8-23); Calcium 9.7 mg/dL (8.5-10.5); Carbon Dioxide 28 mmol/L (22-29); Chloride 98 mmol/L (98-107); Creatinine Clr Calc Pharmacy 23.0388; Globulin 2.8 g/dL (1.3-4.6); Glucose 112 mg/dL (65-115); Osmolality Calculated 293 mOsm/kg (285-295); Potassium 3.7 mmol/L (3.5-5.1); Sodium 138 mmol/L (136-145); Total Bilirubin 0.3 mg/dL (0.15-1.2)
[2020-10-21] MEDS: sodium chloride 0.9% 1,000 ML 100 ML IV (06:27)
--- NOTE | 2020-10-21 06:39 | PC.NURSE ---
In room to talk with patient and patient states that she feels better this morning. Patient is able to tell me her name, and date this morning. Patient slept most of the night.
--- NOTE | 2020-10-21 07:03 | PC.NURSE ---
Report to Maggie Pringle RN
[2020-10-21 08:12] LABS: Glucose Point of Care 175 mg/dL (70-110)
[2020-10-21] MEDS: levothyroxine 75 mcg Tablet PO (08:17)
[2020-10-21] MEDS: amiodarone 200 mg Tablet PO (08:17)
[2020-10-21] MEDS: potassium chloride ER 20 mEq Tablet 10 MEQ PO ×3 (08:17→15:21)
[2020-10-21] MEDS: pantoprazole DR 40 mg Tablet PO (08:17)
[2020-10-21] MEDS: metoprolol tartrate 50 mg Tablet PO (08:17)
[2020-10-21] MEDS: apixaban 5 mg Tablet 2.5 MG PO ×2 (08:19→20:02)
[2020-10-21] MEDS: amlodipine 10 mg Tablet PO (08:19)
[2020-10-21] MEDS: FUROsemide 40 mg Tablet 80 MG PO ×2 (08:20→15:23)
[2020-10-21 10:50] LABS: Glucose Point of Care 151 mg/dL (70-110)
[2020-10-21] MEDS: docusate sodium 100 mg Capsule PO (11:14)
[2020-10-21] MEDS: folic acid 1 mg Tablet PO (11:14)
[2020-10-21 12:12] LABS: ABG PCO2 40.4 mmHg (35-45); Arterial Blood Gas Hematocrit 33.3 % (37-47); Base Excess ABG 7.6 mmol/L (-2.0-2.0); Blood Gas Sample Site Brachial, left; Blood Gas Sample Type Arterial; HCO3 ABG 31.5 mmol/L (22-26); Oxygen Device ROOM AIR
[2020-10-21] MEDS: FUROsemide 10 mg/mL SDV 4mL 40 MG IVP (12:24)
--- NOTE | 2020-10-21 12:53 | P.HP_ITS ---
Providers/Chief Complaint Admitting Physician: Fidel Steinberg MD Primary Care Provider: Mann Garduno MD Chief Complaint: confusion History of Present Illness Luiza Cooper is a 80 year old female CHF (congestive heart failure), CKD (chronic kidney disease), COVID 19 pneumonia admitted 08/02/2020-08/10 c/b ARF thought related to remdisivir, with recurrent readmissions most recently in mid september, discharged 10/07 when she underwent BEST with cardioversion for A fib and discharged on Eliquis. She has been doing well since this last discharge until Thursday (today is Thursday) when her daughter noted being intermittently confused and slow to respond to questions, being more forgetrful and talking out of context which is new for the patient. On my assessment she has delayed word finding today, speech is much slower than when I last saw her in Aug 2020, unable to answer questions regarding her year, recent sequence of events, etc which is ceratinly different from previous assessments. She is able to ambulate, though slower than usual. Over the last 2-3 days, her respiratory status has been improving, 02 is being titrated down, currently only on RA, saturating >90%. No focal weakness in any limb. no facial asymmetry. No recent changes in medication. No recent pain medication use. No fever. no fall or head injuries. No seizures CT head in the ER moderate dilatation of the ventricular system that appears grossly similar to prior. Considerations include parenchymal volume loss or normal pressure hydrocephalus. Probable benign meningiomas; similar to prior. Review of Systems General: Reports: 10 or more systems reviewed and unremarkable except in HPI and below Const: Denies: fever(s), chills or body aches Eyes: Denies: change in vision, blurry vision or photophobia ENMT: Reports: hoarseness; Denies: throat pain, enlarged tonsils, odynophagia or nasal congestion Card: Denies: chest pain, palpitations, irregular heart rhythm, edema, swelling of feet/ankles, lightheadedness, pre-syncope, dyspnea on exertion or orthopnea Resp: Denies: dyspnea, productive cough, non-productive cough, wheezing, stridor, pain on inspiration, change in phlegm color, hemoptysis or chest congestion GI: Denies: abdominal pain, nausea, vomiting, hematemesis, coffee ground emesis, dysphagia, heartburn, diarrhea, constipation, GI cramping, change in stool character, hematochezia or melena : Denies: flank pain, difficulty voiding, dysuria, urinary frequency, urinary urgency, urinary hesitancy or hematuria Musc: Denies: neck pain, back pain, extremity pain, joint swelling, joint warmth or deformity Neuro: Denies: headache(s), numbness in extremities, weakness in extremities, sensory changes, difficulty walking, frequent falls, dizziness, vertigo, behavioral changes, Slurred speech present or seizure-like activity Psych: Denies: anxiety, depression, suicidal ideation or homicidal ideation Endo: Denies: polyuria, polydipsia, tired all the time, cold intolerance or hot flashes Newton/Lymph: Denies: easy bruising or easy bleeding Medications/Allergies Home Medications Medication Instructions Recorded Confirmed Last Taken Type doxazosin 2 mg tablet 2 mg PO BEDTIME@03/15/20 10/20/20 10/19/20 History insulin lispro 100 unit/mL See Rx Instructions .ROUTE .COMPLEX 03/15/20 10/20/20 10/20/20 History subcutaneous solution levothyroxine 75 mcg tablet 75 mcg PO DAILY@08 03/15/20 10/20/20 10/20/20 History ferrous sulfate 325 mg (65 mg 325 mg PO TID@08,,03/26/20 10/20/20 10/20/20 History iron) tablet acetaminophen [Tylenol Extra 500 - 1,000 mg PO PRN PRN 07/31/20 10/20/20 Unknown History Strength] albuterol sulfate 1 puff INHALATION Q6H PRN 09/07/20 10/20/20 Unknown History fluticasone propion-salmeterol 1 ea INHALATION BID@0800,199909/07/20 10/20/20 10/20/20 History [Advair Diskus] pantoprazole 40 mg tablet,delayed 40 mg PO DAILY@08 #60 tab 09/10/20 10/20/20 10/20/20 Rx release cyanocobalamin (vitamin B-12) 1,000 mcg PO DAILY@0800 09/25/20 10/20/20 10/20/20 History [Vitamin B-12] folic acid 1 mg PO DAILY@1200 09/25/20 10/20/20 10/20/20 History mirtazapine 15 mg PO BEDTIME@199909/25/20 10/20/20 10/19/20 History apixaban [Eliquis] 2.5 mg PO Q12H #30 tab 10/07/20 10/20/20 10/20/20 Rx coenzyme Q10 75 mg capsule 75 mg PO DAILY@219910/12/20 10/20/20 10/19/20 History docusate sodium 100 mg capsule 100 mg PO DAILY@119910/12/20 10/20/20 10/20/20 History furosemide 40 mg tablet 80 mg PO BID@,16 #60 tab 10/16/20 10/20/20 10/20/20 Rx Lantus U-100 Insulin 15 - 20 unit SUBCUT BEDTIME@10/20/20 10/20/20 10/19/20 History amiodarone [Pacerone] 200 mg PO DAILY@08 10/20/20 10/20/20 10/20/20 History atorvastatin 40 mg PO BEDTIME@219910/20/20 10/20/20 10/19/20 History metoprolol tartrate See Rx Instructions .ROUTE .COMPLEX 10/20/20 10/20/20 10/20/20 History potassium chloride [Klor-Con M20] 10 meq PO TID@08,12,16 10/20/20 10/20/20 10/20/20 History sucralfate [Carafate] 1 g PO TID PRN 10/20/20 10/20/20 Unknown History Allergies Allergy/AdvReac Type Severity Reaction Status Date / Time Penicillins Allergy Unknown Unknown Verified 10/17/20 15:22 PFSH Acute PFSH: Medical History Atrial fibrillation CHF (congestive heart failure) CKD (chronic kidney disease) COVID-19 Diagnosed 08/02/2020 Diabetes GERD (gastroesophageal reflux disease) HTN (hypertension) Hypothyroidism PVC (premature ventricular contraction) Surgical History S/P cataract extraction S/P cervical spinal fusion S/P tonsillectomy Status post tubal ligation Family History Mother Hypertension Grandmother Hypertension MATERNAL Other Cancer Diabetes Social History Smoking and tobacco status: former smoker Quit status (tobacco): has quit using tobacco Year quit tobacco: 1977 [id number] Second hand smoke exposure: Yes Smoking risk assessment/counseling performed?: Yes Alcohol intake: never Caregiver/support person: Yes Lives independently: Yes Household members: spouse and children Housing: House Marital status: Current occupational status: retired Pets and animals: Yes History of recent travel: No Current gender identity: Female Vitals/I&O/Wt Last Vital Signs Temp 97.3 F L 10/21/20 11:45 Pulse 75 10/21/20 11:45 Resp 18 10/21/20 11:45 BP 175/73 10/21/20 11:45 Pulse Ox 91 10/21/20 11:45 10/20/20 10/21/20 10/21/20 22:59 06:59 14:59 Intake Total 240 / 240 971.667 / 1211.667 240 / 240 Output Total 200 / 200 300 / 500 Balance 40 / 40 671.667 / 711.667 240 / 240 Weight last 48 hrs Weight 71.214 kg Physical Exam Narrative: EXAM NARRATIVE: GEN: Awake, alert and oriented, no acute distress CVS: S1S2 N RS: CTA B/L Abd: Soft, nt/nd , bs+ BASKETBALL COMMENTATOR: no focal neuro deficits EXT: LE edema + Data : 10/21/20 04:05 10/21/20 04:05 A&P Assessment and plan (1) Altered mental status: Manifesting as word finding difficulty, global slowing of responses No focal limb weakness at this time CT head with no new changes, possibility of volume loss vs NPH BP elevated to systolic >180 currently, at home has been raging in the 150s range, ?possibility of PRES cannot be excluded at this time, BP control with Amlodipine 10mg po daily added, target SBP 140-150 Patient had recent BEST with cardioversion, she is on a/c with Eliquis 2.5 BID, though lower on the differential, will obtain MRI to evalute for embolic stroke. No gross signs of sepsis or localizing signs of infection to suggest metabolic encephalopathy 02 weaned off after titrating down over last 2-3 days, saturation maintained, check ABG to r/o hypercapnea & hypoxia no hypoglycemia episodes Status: Acute Qualifiers: Altered mental status type: unspecified Qualified Code(s): R41.82 - Altered mental status, unspecified (2) HTN (hypertension): start amlodipine 10mg qd Status: Acute Qualifiers: Hypertension type: essential hypertension Qualified Code(s): I10 - Essential (primary) hypertension (3) Diabetes: Status: Acute Qualifiers: Diabetes mellitus type: type 2 Diabetes mellitus assisted insulin use: with watcher automat long goods use Diabetes mellitus complication status: with other specified complication Qualified Code(s): E11.69 - Type 2 diabetes mellitus with other specified complication; Z79.4 - assistant terminal manager (current) use of insulin (4) CKD (chronic kidney disease): at baseline Status: Acute Qualifiers: Chronic kidney disease stage: stage 4 (severe) Qualified Code(s): N18.4 - Chronic kidney disease, stage 4 (severe) (5) Anemia: Status: Acute Qualifiers: Anemia type: unspecified type Qualified Code(s): D64.9 - Anemia, unspecified (6) CHF (congestive heart failure): currently euvolmeic continue home dose of lasix 80mg po BID Status: Acute Qualifiers: Heart failure type: diastolic Heart failure chronicity: acute on chronic Qualified Code(s): I50.33 - Acute on chronic diastolic (congestive) heart failure Additional A&P Information full code DVT ppx: lovenox Attestations Medical Necessity Statement*: >2midnight admission for management of above issues, needs MRI, BP control Coding Level of Care Code Acute Loans Consultant for Chg Fwd Diagnoses Altered mental status R41.82 Altered mental status type: unspecified HTN (hypertension) I10 Hypertension type: essential hypertension Diabetes E11.69; Z79.4 Diabetes mellitus type: type 2 Diabetes mellitus assisted insulin use: with assisted use Diabetes mellitus complication status: with other specified complication CKD (chronic kidney disease) N18.4 Chronic kidney disease stage: stage 4 (severe) Anemia D64.9 Anemia type: unspecified type CHF (congestive heart failure) I50.33 Heart failure type: diastolic Heart failure chronicity: acute on chronic
--- NOTE | 2020-10-21 13:15 | USR_ITS ---
PROCEDURE INFORMATION: Exam: US Duplex Bilateral Extracranial Arteries Exam date and time: 10/21/2020 2:41 PM Age: 80 years old Clinical indication: Altered mental status/memory loss; Additional info: TIA TECHNIQUE: Imaging protocol: Real-time Duplex ultrasound scan of the bilateral carotid and vertebral arteries combining anderson scale, color Doppler and spectral waveform analysis. Bilateral exam. COMPARISON: CT head wo con* [id number] 10/20/2020 2:00 PM FINDINGS: Right common carotid artery: Heterogeneous plaque. Peak systolic velocity is 86 cm/s. Right internal carotid artery: Heterogeneous plaque peak systolic velocity is 73 cm/s. Right ICA/CCA ratio: 1.0, Within normal limits. Right ICA/CCA ratio: Within normal limits. Right external carotid artery: Mild stenosis at the origin peak systolic velocity is 104 centimeters/seconds. Right vertebral artery: Unremarkable. Antegrade flow. Left common carotid artery: Heterogeneous plaque. Peak systolic velocity is 123 centimeters/seconds Left internal carotid artery: Heterogeneous plaque. Peak systolic velocity is 84 centimeters/seconds Left ICA/CCA ratio: 1.1, Within normal limits. Left external carotid artery: Mild stenosis in the origin. Peak systolic velocity is 99 cm/s. Left vertebral artery: Unremarkable. Antegrade flow. US/CV carotid duplex BI* [id number] IMPRESSION: Bilateral carotid heterogeneous plaque with mild, less than 50%, stenosis of the internal carotid arteries. REFERENCES: SRU CRITERIA. The degree of internal carotid artery stenosis is based on criteria defined by the Society of Radiologists in Ultrasound (SRU). Normal is no stenosis. Mild is less than 50% stenosis. Moderate is 50-69% stenosis. Severe is greater than 69% stenosis to near occlusion. Near occlusion is a markedly narrowed lumen. Total occlusion is no detectable patent lumen.
[2020-10-21] MEDS: hyDRALAzine 10 mg Tablet PO ×2 (15:23→20:02)
--- NOTE | 2020-10-21 15:37 | PC.CHAP ---
Pastoral Care Encounter/Spiritual Assessment Type of Contact [] Declined template checker visit [] Patient/Family/Request visit [] Outpatient visit [] Follow-up visit [] Physician referral [] Code/Alert [XX] Routine visit [] Staff referral [] Actively dying [] Patient sleeping [] Family support [] [XX] Out of room [] Palliative care [] [] Receiving care in room [] Pre-surgical visit [] Trauma [] Long length of stay [] ICU visit [] Other: Relational/Emotional Strength [] Patient feels connected with others/family/visitors/staff [] Distress [] Loneliness/isolation [] Abandonment Spirituality of Patient [] Person of Betty [] Attends Faith of their Betty [] Believes in Prayer [] Reads Bible or Yarsanism materials [] There are Spiritual issues to be addressed Mold Maker Helper Interventions [] Prayer [] Active listening [] Non-anxious presence [] Spiritual/emotional support [] Crisis/trauma care [] Spiritual counseling [] Bereavement support [] Provided bereavement packet [] Provided Bible/devotional materials [] Provided toy/stuffed animal, coloring book to patient or family member [] Provided Communion [] Anointing/[place] [] Salvation [] Completed spiritual assessment [] Other: Impact on Illness or Injury [] Angry [] Fearful [] Anxious [] Often cries [] Exhaustion [] Unable to work [] Unable to attend islam [] Unable to walk/stand [] Unable to read [] Unable to drive [] Unable to eat/drink [] Unable to sleep [] Unable to be with family [] Patient intubated [] Other: Summary: As template checker entered room, pt was being transported to MRI. Spoke briefly with pt's daughter. The concern is a stroke but pt is doing well and family is hopeful for an encouraging report. Time spent with patient: 5 mins
--- NOTE | 2020-10-21 17:22 | PM.PN ---
Subjective Subjective: Interval history: Mental status continues today the same. Patient is alert and awake, however there are gaps in her memory. She is not able to tell me her correct date of , tells me her name, is slow to respond to most questions. Blood pressure systolic noted to be ranging still in the 180s range, hydralazine 10 mg 3 times daily added. MRI to be performed later today. TSH returned elevated at 9.4, will check free T3 and T4. Medications: Reviewed: Yes Vitals/I&O/Wt Last Vital Signs Temp 97.3 F L 10/21/20 11:45 Pulse 78 10/21/20 15:11 Resp 16 10/21/20 15:11 BP 175/73 10/21/20 11:45 Pulse Ox 98 10/21/20 15:11 10/21/20 10/21/20 10/21/20 06:59 14:59 22:59 Intake Total 971.667 / 1211.667 240 / 240 1000 / 1240 Output Total 300 / 500 Balance 671.667 / 711.667 240 / 240 1000 / 1240 Weight last 48 hrs Weight 71.214 kg Physical Exam Narrative: EXAM NARRATIVE: GEN: Awake, alert and oriented, no acute distress CVS: S1S2 N RS: CTA B/L Abd: Soft, nt/nd , bs+ CRM SPECIALIST: no focal neuro deficits, slow speech, word finding difficulty Data : 10/21/20 04:05 10/21/20 04:05 A&P Assessment and plan (1) Altered mental status: Manifesting as word finding difficulty, global slowing of responses No focal limb weakness at this time CT head with no new changes, mentions possibility of volume loss vs NPH, also seen on past scans BP elevated to systolic >180 currently, at home has been raging in the 150s range, ?possibility of PRES cannot be excluded at this time, BP control with Amlodipine 10mg po daily added, today adding hydralazine 10mg TID Patient had recent BEST with cardioversion, she is on a/c with Eliquis 2.5 BID, though lower on the differential, will obtain MRI to evalute for embolic stroke. Will evaluate for PRES. MRI today No gross signs of sepsis or localizing signs of infection to suggest metabolic encephalopathy TSH mildly elevated at 9.4, check FT4 and FT3, hypothyroidism may manifest similarly. Has been compliant with her medications. 02 weaned off after titrating down over last 2-3 days, saturation maintained, ABG without hypercapnea & hypoxia no hypoglycemia episodes Status: Acute Qualifiers: Altered mental status type: unspecified Qualified Code(s): R41.82 - Altered mental status, unspecified (2) HTN (hypertension): start amlodipine 10mg qd and hydralazine 10mg po TID Status: Acute Qualifiers: Hypertension type: essential hypertension Qualified Code(s): I10 - Essential (primary) hypertension (3) Diabetes: ISS Status: Acute Qualifiers: Diabetes mellitus type: type 2 Diabetes mellitus prison insulin use: with director hydrogen storage engineering use Diabetes mellitus complication status: with other specified complication Qualified Code(s): E11.69 - Type 2 diabetes mellitus with other specified complication; Z79.4 - senior data architect (current) use of insulin (4) CKD (chronic kidney disease): at baseline Status: Acute Qualifiers: Chronic kidney disease stage: stage 4 (severe) Qualified Code(s): N18.4 - Chronic kidney disease, stage 4 (severe) (5) Anemia: Status: Acute Qualifiers: Anemia type: unspecified type Qualified Code(s): D64.9 - Anemia, unspecified (6) CHF (congestive heart failure): currently euvolmeic continue home dose of lasix 80mg po BID extra lasix 40mg IVP today as she had received 100cc/hr of normal saline overnight from ER until this afternoon, was slight tachypneic with activity when examined Status: Acute Qualifiers: Heart failure type: diastolic Heart failure chronicity: acute on chronic Qualified Code(s): I50.33 - Acute on chronic diastolic (congestive) heart failure Additional A&P Information full code DVT ppx: lovenox Attestations Medical Necessity Statement*: MRI today, check free t3 and t4 levels, monitor mentation Coding Level of Care Code Acute Financial Planning Advisor for Chg Fwd Diagnoses Altered mental status R41.82 Altered mental status type: unspecified HTN (hypertension) I10 Hypertension type: essential hypertension Diabetes E11.69; Z79.4 Diabetes mellitus type: type 2 Diabetes mellitus director hydrogen storage engineering insulin use: with prison use Diabetes mellitus complication status: with other specified complication CKD (chronic kidney disease) N18.4 Chronic kidney disease stage: stage 4 (severe) Anemia D64.9 Anemia type: unspecified type CHF (congestive heart failure) I50.33 Heart failure type: diastolic Heart failure chronicity: acute on chronic
[2020-10-21 17:26] LABS: Glucose Point of Care 305 mg/dL (70-110)
[2020-10-21 18:31] LABS: Free T4 Free Thyroxine 1.79 ng/dL (0.82-1.77); T3 Free 1.8 PG/ML (2.0-4.4)
--- NOTE | 2020-10-21 18:54 | MRR_ITS ---
PROCEDURE INFORMATION: Exam: MR Head Without Contrast Exam date and time: 10/21/2020 7:10 AM Age: 80 years old Clinical indication: Condition or disease; Other: Pres TECHNIQUE: Imaging protocol: MR of the head without contrast. COMPARISON: MR head wo con* [id number] 12/16/2018 9:38 AM, head CT 10/20/2020 FINDINGS: Limitations: There is extensive susceptibility artifact in the right facial and frontal region from dental hardware limiting the scan. In particular, DWI and SWI images are not interpretable. It should be noted there was similar artifact on the prior MRI. Brain: There is mildly hyperintense signal in the periventricular white matter. No infarct. No hemorrhage or extra-axial collection. No cerebral edema. A small right pterional meningioma seen on the prior CT cannot be evaluated due to extensive artifact obscuring this area. Cerebral ventricles: Ventricular prominence is likely secondary to volume loss and is stable compared with prior scans. Bones/joints: Unremarkable. Paranasal sinuses: Normal as visualized. No acute sinusitis. Mastoid air cells: There is fluid in the mastoids bilaterally, more extensive on the left. Orbital cavity: Unremarkable. Soft tissues: Unremarkable MR/MR head wo con* [id number] IMPRESSION: 1. Mild chronic microvascular disease. 2. No acute intracranial lesion or injury within the limits of artifact. No evidence of PRES. No change from prior scan.
[2020-10-21] MEDS: mirtazapine 15 mg Tablet PO (20:02)
[2020-10-21] MEDS: metoprolol tartrate 25 mg Tablet PO (20:02)
[2020-10-21] MEDS: atorvastatin 40 mg Tablet PO (20:02)
[2020-10-21] MEDS: doxazosin 4 mg Tablet 2 MG PO (20:09)
[2020-10-21 20:12] LABS: Glucose Point of Care 252 mg/dL (70-110)
[2020-10-21] MEDS: budesonide 0.5 mg/2 mL Neb 0.25 MG INHALATION (20:30)
--- NOTE | 2020-10-21 21:10 | PC.NURSE ---
Patient has taken her Telemetry box off and is not allowing this gag writer to put it back on.
[2020-10-22] VITALS (9 sets, daily range): BP systolic 170–196; BP diastolic 66–76; PULSE 71–84; RESP 18; TEMP 36.4–37.1; O2SAT 89–99
--- NOTE | 2020-10-22 05:36 | PC.NURSE ---
End of shift report Patient had an uneventful night. Other then getting up two different times to use the bathroom patient slept all night. Patient was able to tell me her date of before bed last night but is unable to tell it to me this morning.
[2020-10-22 06:52] LABS: Glucose Point of Care 266 mg/dL (70-110)
[2020-10-22] MEDS: budesonide 0.5 mg/2 mL Neb 0.25 MG INHALATION (07:55)
[2020-10-22] MEDS: ipratropium-albuterol 3 mL Neb INHALATION (07:56)
[2020-10-22] MEDS: apixaban 5 mg Tablet 2.5 MG PO (08:09)
[2020-10-22] MEDS: amiodarone 200 mg Tablet PO (08:09)
[2020-10-22] MEDS: hyDRALAzine 10 mg Tablet PO (08:09)
[2020-10-22] MEDS: amlodipine 10 mg Tablet PO (08:09)
[2020-10-22] MEDS: pantoprazole DR 40 mg Tablet PO (08:09)
[2020-10-22] MEDS: FUROsemide 40 mg Tablet 80 MG PO (08:09)
[2020-10-22] MEDS: levothyroxine 75 mcg Tablet PO (08:09)
[2020-10-22] MEDS: metoprolol tartrate 50 mg Tablet PO (08:09)
[2020-10-22] MEDS: potassium chloride ER 20 mEq Tablet 10 MEQ PO ×2 (08:10→11:12)
--- NOTE | 2020-10-22 09:50 | PC.CHAP ---
Pastoral Care Encounter/Spiritual Assessment Type of Contact [] Declined cream gatherer visit [] Patient/Family/Request visit [] Outpatient visit [] Follow-up visit [] Physician referral [x] Code/Alert [] Routine visit [] Staff referral [] Actively dying [] Patient sleeping [] Family support [] x [] Out of room [] Palliative care [] [] Receiving care in room [] Pre-surgical visit [] Trauma [] Long length of stay [] ICU visit [] Other: Relational/Emotional Strength [x] Patient feels connected with others/family/visitors/staff [] Distress [] Loneliness/isolation [] Abandonment Spirituality of Patient [x] Person of Betty [] Attends Methodist of their Betty [] Believes in Prayer [] Reads Bible or Advent materials [] There are Spiritual issues to be addressed Process Checker Interventions [x] Prayer [x] Active listening [] Non-anxious presence [] Spiritual/emotional support [] Crisis/trauma care [] Spiritual counseling [] Bereavement support [] Provided bereavement packet [] Provided Bible/devotional materials [] Provided toy/stuffed animal, coloring book to patient or family member [] Provided Communion [] Anointing/[place] [] Salvation [x] Completed spiritual assessment [] Other: Impact on Illness or Injury [] Angry [] Fearful [] Anxious [] Often cries [] Exhaustion [] Unable to work [] Unable to attend spiritism [] Unable to walk/stand [] Unable to read [] Unable to drive [] Unable to eat/drink [] Unable to sleep [] Unable to be with family [] Patient intubated [] Other: Summary Time spent with patient 15 min
[2020-10-22 10:50] LABS: Glucose Point of Care 251 mg/dL (70-110)
[2020-10-22] MEDS: docusate sodium 100 mg Capsule PO (11:12)
[2020-10-22] MEDS: folic acid 1 mg Tablet PO (11:12)
--- NOTE | 2020-10-22 14:54 | P.DS_ITS ---
Discharge Providers Date of Admission: 10/20/20 17:21 Date of Discharge: October 22, 2020 Attending Provider at Admission: Fidel Steinberg MD Attending Provider at Discharge: Prabhjot Peralta MD Primary Care Provider: Mann Garduno MD Diagnoses at Discharge Discharge Diagnosis (1) Altered mental status: Status: Resolved Qualifiers: Altered mental status type: unspecified Qualified Code(s): R41.82 - Altered mental status, unspecified (2) HTN (hypertension): Status: Chronic Qualifiers: Hypertension type: essential hypertension Qualified Code(s): I10 - Essential (primary) hypertension (3) Diabetes: Status: Chronic Qualifiers: Diabetes mellitus complication status: with other specified complication Diabetes mellitus longwall foreman insulin use: with longwall foreman use Diabetes mellitus type: type 2 Qualified Code(s): E11.69 - Type 2 diabetes mellitus with other specified complication; Z79.4 - penitentiary (current) use of insulin (4) CKD (chronic kidney disease): Status: Chronic Qualifiers: Chronic kidney disease stage: stage 4 (severe) Qualified Code(s): N18.4 - Chronic kidney disease, stage 4 (severe) (5) Anemia: Status: Chronic Qualifiers: Anemia type: unspecified type Qualified Code(s): D64.9 - Anemia, u nspecified (6) CHF (congestive heart failure): Status: Chronic Qualifiers: Heart failure chronicity: acute on chronic Heart failure type: diastolic Qualified Code(s): I50.33 - Acute on chronic diastolic (congestive) heart failure Reason for Visit Reason for Visit: confusion Hospital Course Hospital Course 80 year old female CHF (congestive heart failure), CKD (chronic kidney disease), COVID 19 pneumonia admitted 08/02/2020-08/10 c/b ARF thought related to remdisivir, with recurrent readmissions most recently in mid september, discharged 10/07 when she underwent BEST with cardioversion for A fib and discharged on Eliquis. She has been doing well since this last discharge until Thursday (Thursday admission date) when her daughter noted being intermittently confused and slow to respond to questions, being more forgetful and talking out of context which is new for the patient. On initial assessment dring admission she had delayed word finding , speech was slower unable to answer questions regarding her year, recent sequence of events, etc which is certainly different from previous assessments. She was able to ambulate, though slower than usual. No fever. no fall or head injuries. No seizures.She was admitted for the management of ac encephalopathy, of unclear etiology. CT head in the ER moderate dilatation of the ventricular system that appears.MRI brain without contrast : Mild chronic microvascular disease. No acute intracranial lesion or injury within the limits of artifact. No evidence of PRES. No change from prior scan.CV carotid duplex BI:Bilateral carotid heterogeneous plaque with mild, less than 50%, stenosis of the internal carotid arteries. No gross signs of sepsis or localizing signs of infection to suggest metabolic encephalopathy. C.T chest wo con; No pneumothorax is seen. There is diffuse subpleural reticulation raising concern for interstitial lung disease/developing pulmonary fibrosis. Consider non emergent high- resolution CT chest interstitial protocol to further assess. Mild mediastinal lymphadenopathy. On the day of discharge she was at her baseline mentation.For her uncontrolled blood pressure amlodipine 10 mg po daily was added to her current anti hypertensive medications.She was continued on her rest of home medications. She will continue to follow her PCP as well as lip and gate builder as outpatient. She is being discharged in stable condition to home. Physical Exam Narrative: EXAM NARRATIVE: EXAM NARRATIVE: GEN: Awake, alert and oriented, no acute distress CVS: S1S2 N RS: CTA B/L Abd: Soft, nt/nd , bs+ CLINICAL NURSING INTERN: no focal neuro deficits Discharge Data Data Completed and Pending: Completed Studies During Hospitalization Category Date Time Status CT chest wo con 7 1250 Stat Cat Scan 10/20/20 15:[address] head wo con* 7 0450 Stat Cat Scan 10/20/20 13:58 Completed XR chest 1V toñito ble [id number] Stat Exams 10/20/20 13:58 Completed MR head wo con* 7 0551 Routine MRI 10/21/20 18:54 Completed CV carotid duplex BI* [id number] Routine Ultrasound 10/21/20 13:15 Completed Pending at discharge Category Date Time Status Cryptococcal Anti gen Stat Lab 10/21/20 17:49 Ordered Labs from last 24 hours 10/22/20 10/22/20 10/21/20 10:41 06:28 19:30 POC Glucose 251 H 266 H 252 H Free T4 Free T3 10/21/20 10/21/20 17:21 04:05 POC Glucose 305 H Free T4 1.79 H Free T3 1.8 L Vitals: Last Vital Signs Temp 97.6 F 10/22/20 11:40 Pulse 74 10/22/20 11:40 Resp 18 10/22/20 11:40 BP 196/76 10/22/20 11:40 Pulse Ox 93 10/22/20 11:40 Discharge Plan Discharge Patient Disposition: Home Condition: Stable Prescriptions: New amlodipine 10 mg tablet 10 mg PO DAILY Qty: 30 RF: 0 Continued ferrous sulfate 325 mg (65 mg iron) tablet 325 mg PO TID@,, RF: 0 Ultra CoQ10 75 mg capsule 75 mg PO DAILY@2199 RF: 0 docusate sodium 100 mg capsule 100 mg PO DAILY@1200 RF: 0 insulin lispro [Humalog U-100 Insulin] 100 unit/mL solution See Rx Instructions .ROUTE .COMPLEX RF: 0 levothyroxine 75 mcg tablet 75 mcg PO DAILY@08 RF: 0 doxazosin 2 mg tablet 2 mg PO BEDTIME@20 RF: 0 pantoprazole 40 mg tablet,delayed release (DR/EC) 40 mg PO DAILY@08 Qty: 60 RF: 2 furosemide 40 mg tablet 80 mg PO BID@,16 Qty: 60 RF: 3 fluticasone propion-salmeterol [Advair Diskus] 250-50 mcg/dose blister with device 1 ea inhalation BID@0800,1999 RF: 0 albuterol sulfate 90 mcg/actuation HFA aerosol inhaler 1 puff INHALATION Q6H PRN (Reason: Shortness Of Breath) RF: 0 folic acid 1 mg tablet 1 mg PO DAILY@1200 RF: 0 mirtazapine 15 mg tablet 15 mg PO BEDTIME@1999 RF: 0 cyanocobalamin (vitamin B-12) [Vitamin B-12] 1,000 mcg Tablet 1,000 mcg PO DAILY@0800 RF: 0 Eliquis 5 mg Tablet 2.5 mg PO Q12H Qty: 30 RF: 0 acetaminophen [Tylenol Extra Strength] 500 mg Tablet 500 - 1,000 mg PO PRN PRN (Reason: PAIN) RF: 0 Carafate 1 gram Tablet 1 g PO TID PRN (Reason: STOMACH ACID) RF: 0 atorvastatin 40 mg tablet 40 mg PO BEDTIME@2199 RF: 0 Lantus U-100 Insulin 100 unit/mL solution 15 - 20 unit SUBCUT BEDTIME@20 RF: 0 Pacerone 200 mg tablet 200 mg PO DAILY@08 RF: 0 Klor-Con M20 20 mEq tablet,ER particles/crystals 10 meq PO TID@08,12,16 RF: 0 metoprolol tartrate 50 mg tablet See Rx Instructions .ROUTE .COMPLEX RF: 0 Referrals: Lory Egan MD [Physician] - 1 month Mann Garduno MD [Primary Care Provider] - 1 month Discharge Diet: Low Salt Discharge Activity: Resume usual activity Discharge Attestations Time Spent in Discharge Care*: greater than 30 min Specific Discharge Activities: educating patient, educating and/or supporting family/caregiver, discussing with pcp/other providers, discussing with case liner/social workers/dc planners, documenting/other paperwork and evaluating patient/reviewing data Status at Discharge: Cognitive status at discharge: cognitively intact , Behavioral status at discharge: cooperative , Functional status at discharge: uses cane/walker Overall status at discharge: patient is back to baseline Quality Metrics Clinical Quality Measures During this hospital stay, did patient experience: None Coding Level of Care Code Acute Director [employer] for [employer] Fwd Diagnoses Altered mental status R41.82 Altered mental status type: unspecified HTN (hypertension) I10 Hypertension type: essential hypertension Diabetes E11.69; Z79.4 Diabetes mellitus complication status: with other specified complication Diabetes mellitus longwall foreman insulin use: with jail use Diabetes mellitus type: type 2 CKD (chronic kidney disease) N18.4 Chronic kidney disease stage: stage 4 (severe) Anemia D64.9 Anemia type: unspecified type CHF (congestive heart failure) I50.33 Heart failure chronicity: acute on chronic Heart failure type: diastolic
== END 2020-10-22 18:15 | disposition home or self-care (01) | DRG 291 ==
LOC: ER 16:51 → MEDSURG 19:20
PROVIDERS: Student in an Organized Health Care Education/Training Program; Admitting Provider Student in an Organized Health Care Education/Training Program; Emergency Provider Family Medicine; PCP Family Medicine; Visit Provider Internal Medicine
DX: I13.0 Hypertensive heart and chronic kidney disease with heart failure and stage 1 through stage 4 chronic kidney disease, or unspecified chronic kidney disease (principal); I50.33 Acute on chronic diastolic (congestive) heart failure; N18.4 Chronic kidney disease, stage 4 (severe); E11.22 Type 2 diabetes mellitus with diabetic chronic kidney disease; Z79.4 Long term (current) use of insulin; D63.1 Anemia in chronic kidney disease; Z86.16 Personal history of COVID-19; I48.91 Unspecified atrial fibrillation; Z79.01 Long term (current) use of anticoagulants; K21.9 Gastro-esophageal reflux disease without esophagitis; E03.9 Hypothyroidism, unspecified; Z87.891 Personal history of nicotine dependence
CPT/HCPCS: 12345; 36415; 36416; 36600; 70450; 70551; 71045; 71250; 80053; 81001; 82550; 82803; 82962; 84439; 84443; 84481; 85025; 87327; 92610; 93005; 93880; 94640; 96372; 97116; 97161; 99212; 99282; J1815; J1940; J7030; J7626

== ENCOUNTER → 2021-01-15 13:52 | Outpatient (BNVA) | payer MEDICARE, BC, SELFPAY | PROVIDERS: PCP Family Medicine; Visit Provider Internal Medicine Pulmonary Disease | DX: R06.00 Dyspnea, unspecified (principal) | CPT/HCPCS: 87635 ==

== ENCOUNTER 2021-01-21 08:49 | Outpatient (CLI) | payer MEDICARE, BC, SELFPAY ==
--- NOTE | 2021-01-21 09:53 | PFTS_ITS ---
Date of Study:01/21/21 Date of Dictation: MECHANICS: Forced vital capacity (FVC) is reduced. Forced expiratory volume in one second (FEV1) is reduced. FEV1/FVC is normal. FLOW VOLUME LOOP: Narrow. LUNG VOLUMES: Total lung capacity (TLC) is reduced. Residual volume (RV) is reduced. DIFFUSING CAPACITY FOR CARBON MONOXIDE: Severely reduced. INTERPRETATION: The postbronchodilator spirometry is consistent with moderate restriction. There is no significant postbronchodilator response. Lung volumes are consistent with restrictive lung disease. Gas exchange (DLCO) is severely reduced. MTDD
== END 2021-01-21 08:50 | disposition home or self-care (01) ==
LOC: RT 08:53
PROVIDERS: PCP Family Medicine; Visit Provider Internal Medicine Pulmonary Disease
DX: R06.00 Dyspnea, unspecified (principal)
CPT/HCPCS: 94060; 94618; 94726; 94729; J7611

== ENCOUNTER 2021-02-04 09:18 | Outpatient (CLI) | payer MEDICARE, BC, SELFPAY ==
--- NOTE | 2021-02-04 09:30 | CT_ITS ---
WS: [id number] CT CHEST CT-HIGH RESOLUTION, NONCONTRAST. HISTORY: Interstitial lung disease. Technique: High-resolution chest CT is performed in inspiration, expiration, supine and prone positio jayda. All CT scans at [facility] use at least one of these dose optimization techniques: automa michael exposure control; mA and/or kV adjustment per patient size (includes targeted exams where dose is matched to clinical indication); or iterative reconstruction. DLP: 710.82 mGy.cm COMPARISON: 10/20/2020 Findings: Mild pulmonary hyperinflation. Very mild bilateral and upper and lower lung field areas of subpleural reticulation and scarring. No honeycombing. There is mild bronchiectasis bilaterally. Most significant involving the RIGHT lower lobe. No persistent areas of atelectasis. Subpleural scarring persists in the LEFT upper lobe. There is some very mild air trapping bilaterally involving portions of the upper lower lung riddle. No nodules or pneumonia. Benign granuloma LEFT lower lobe. Mild atherosclerosis aorta. Pulmonary artery size is mildly enlarged at 2.9 cm. Heart is enlarged. No pericardial or pleural effusions. Small hiatal hernia. Hepatic and splenic granulomata. Low-attenuation lesion in the anterior spleen measures 1.7 cm. New s zuleika 03/12/2019. No change since 10/04/2020. No adrenal mass. Atrophied pancreas. Extensive calcificati on in the suprarenal aorta and splenic artery. CT/CT chest wo con [id number] Impression: 1. Mild changes of pulmonary fibrosis. No evidence for UIP at this time. There is mild air trapping bilaterally. 2. Mild early changes of bronchiectasis in the upper and lower lung riddle. 3. Mild cardiomegaly. 4. Atherosclerosis aorta.
== END 2021-02-04 09:19 | disposition home or self-care (01) ==
LOC: RADWPI 09:23
PROVIDERS: PCP Family Medicine; Visit Provider Internal Medicine Pulmonary Disease
DX: J84.9 Interstitial pulmonary disease, unspecified (principal); I70.0 Atherosclerosis of aorta; I51.7 Cardiomegaly
CPT/HCPCS: 71250

== ENCOUNTER 2021-02-28 10:27 | Outpatient (CLI) | payer MEDICARE, BC, SELFPAY ==
[2021-02-28 11:47] LABS: C Reactive Protein 5.5 mg/L (0.0-4.9)
[2021-02-28 11:54] LABS: Erythrocyte Sedimentation Rate 73 mm/hr (0-15)
[2021-03-01 12:16] LABS: COMPLEMENT COMPONENT C3C 132 mg/dL (83-193); COMPLEMENT COMPONENT C4C 20 mg/dL (15-57); Cyclic Citrullinated Peptide <16 UNITS
[2021-03-01 13:27] LABS: Anti-Double Strand DNA AB <1 IU/mL; CENTROMERE B ANTIBODY <1.0 NEG AI (<1.0 NEG); COMPLEMENT, TOTAL (CH50) >60 U/mL (31-60); Centromere B Antibody <1.0 NEG AI (<1.0 NEG); JO-1 ANTIBODY <1.0 NEG AI (<1.0 NEG); JO-1 Antibody <1.0 NEG AI (<1.0 NEG); RNP ANTIBODY 1.4 POS AI (<1.0 NEG); SCL 70 <1.0 NEG AI (<1.0 NEG); SCL-70 ANTIBODY <1.0 NEG AI (<1.0 NEG); SJOGREN'S ANTIBODY (SS-A) <1.0 NEG AI (<1.0 NEG); SM ANTIBODY <1.0 NEG AI (<1.0 NEG); SS A Ro Sjogrens Antibody <1.0 NEG AI (<1.0 NEG); SS-B <1.0 NEG AI (<1.0 NEG); SS-B/LA IGG <1.0 NEG AI (<1.0 NEG); Sm/RNP Antibody <1.0 NEG AI (<1.0 NEG); Smith Antibody <1.0 NEG AI (<1.0 NEG)
[2021-03-01 17:51] LABS: THYROID PEROXIDASE ANTIBODIES 1 IU/mL (<9)
[2021-03-02 12:46] LABS: ANA SCREEN, IFA NEGATIVE (NEGATIVE)
[2021-03-07 14:43] LABS: DNA AB (DS) CRITHIDIA,IFA NEGATIVE (NEGATIVE)
== END 2021-02-28 10:28 | disposition home or self-care (01) ==
PROVIDERS: PCP Family Medicine; Visit Provider Internal Medicine Pulmonary Disease
DX: J84.9 Interstitial pulmonary disease, unspecified (principal)
CPT/HCPCS: 83516; 85651; 86140; 86160; 86162; 86225; 86235; 86255; 86376; 86431

== ENCOUNTER 2021-03-15 12:24 | Outpatient (CLI) | payer MEDICARE, BC, SELFPAY ==
--- NOTE | 2021-03-15 12:31 | XR_ITS ---
WS: [id number] PA and lateral chest, 03/15/2021 Clinical Data: I50.9 - Heart failure, unspecified Comparison: Portable chest, 10/20/2020. Findings: No nodules or masses are seen. The heart is enlarged. The pulmonary vascularity is mildly c ongested. There is a small right pleural effusion. The aortic arch and descending aorta show calcific ation and minimal tortuosity. No pneumonia is present. There is no pneumothorax. There is a clip on t he right side of the C6 vertebral body from surgery. XR/XR chest 2V* [id number] Impression: 1. Cardiomegaly with pulmonary vascular congestion consistent with mild congest evelyne heart failure. 2. Small right pleural effusion.
== END 2021-03-15 12:25 | disposition home or self-care (01) ==
PROVIDERS: PCP Family Medicine; Visit Provider Internal Medicine Cardiovascular Disease
DX: Z51.81 Encounter for therapeutic drug level monitoring (principal); I50.9 Heart failure, unspecified; R06.02 Shortness of breath; I51.7 Cardiomegaly; J90 Pleural effusion, not elsewhere classified; I48.0 Paroxysmal atrial fibrillation; I50.32 Chronic diastolic (congestive) heart failure; Z79.899 Other long term (current) drug therapy
CPT/HCPCS: 71046; 80053; 83735; 83880; 84443

== ENCOUNTER → 2021-04-16 10:48 | Outpatient (BNVA) | payer MEDICARE, BC, SELFPAY | PROVIDERS: PCP Family Medicine; Visit Provider Internal Medicine Rheumatology | DX: M19.90 Unspecified osteoarthritis, unspecified site (principal); J84.9 Interstitial pulmonary disease, unspecified; Z86.16 Personal history of COVID-19; Z87.891 Personal history of nicotine dependence | CPT/HCPCS: 99204 ==

== ENCOUNTER 2021-06-07 07:48 | Inpatient (IN) | payer MEDICARE, BC, SELFPAY ==
[2021-06-07] VITALS (10 sets, daily range): BP systolic 125–162; BP diastolic 53–78; PULSE 55–62; RESP 16–20; TEMP 36.3–37.5; O2SAT 89–100; BMI 29.4
--- NOTE | 2021-06-07 07:51 | ED_ITS ---
HPI - Nausea/Vomiting/Diarrhea General: Chief complaint: Nausea/Vomiting/Diarrhea Stated complaint: NAUSEA, VOMIT, WEAK Time Seen by Provider: 06/07/21 07:50 History of Present Illness: HPI Narrative: Ms. Cooper is an 81-year-old lady with complex past medical history including CHF, diabetes, interstitial lung disease, atrial fibrillation on anticoagulation, history of Covid and Covid vaccine who presents emergency department due to various concerns. She has been at her baseline health however this morning she woke up with dizziness, nausea, vomiting, and diarrhea. She describes the dizziness as moderate in intensity and feeling like she is off balance. This is worse when she ambulates however it does not go with rest. She endorses no associated focal numbness or weakness. She has had chills and multiple episodes of emesis and diarrhea. Overall the course of symptoms has been worsening. Intensity is moderate to severe. She denies sick contacts. No other specific changes in health, medications, exacerbating, or alleviating factors identified. Review of Systems General: Reports: 10 or more systems reviewed and unremarkable except in HPI and below Narrative: CONSTITUTIONAL: See HPI EYES - denies pain, denies loss of vision EARS - denies ear issues. NOSE - denies congestion or rhinorrhea. THROAT - denies sore throat or difficulty swallowing. CARDIOVASCULAR - denies chest pain and palpitations RESPIRATORY - denies shortness of breath and cough GASTROINTESTINAL -see HPI GENITOURINARY - denies dysuria or urinary frequency MUSCULOSKELETAL- denies deformity or pain SKIN - denies rashes or new changed skin lesions NEUROLOGIC - denies focal weakness or sensory changes. Off balance as noted. HEMATOLOGIC/LYMPHATIC - denies easy bruising or lymphadenopathy. [facility] ED PFSH: Medical History Altered mental status Anemia Atrial fibrillation CHF (congestive heart failure) CKD (chronic kidney disease) COVID-19 resolved Diabetes GERD (gastroesophageal reflux disease) HTN (hypertension) Hypothyroidism Meningioma Osteoarthritis (arthritis due to wear and tear of joints) PVC (premature ventricular contraction) Surgical History S/P cataract extraction S/P cervical spinal fusion S/P tonsillectomy Status post tubal ligation Family History Mother Hypertension Grandmother Hypertension MATERNAL Other Cancer Diabetes Social History Smoking and tobacco status: former smoker Quit status (tobacco): has quit using tobacco Year quit tobacco: 1977 [id number] Second hand smoke exposure: Yes Smoking risk assessment/counseling performed?: Yes Alcohol intake: never Caregiver/support person: Yes Lives independently: Yes Household members: spouse and children Housing: House Marital status: Current occupational status: retired Pets and animals: Yes History of recent travel: No Current gender identity: Female Physical Exam Narrative: EXAM NARRATIVE: GENERAL/CONSTITUTIONAL -mildly ill-appearing. No acute distress. Eyes - PERRL, no conjunctival injection ENMT - Atraumatic external nose and ears. Moist mucous membranes NECK - supple. trachea midline CARDIOVASCULAR - regular rate and rhythm. Peripheral pulses 2+ and equal RESPIRATORY -mildly coarse to auscultation bilaterally at the bases. No retractions or accessory muscle use. ABDOMEN/GI - Nontender/Nondistended. No tenderness to percussion or evidence of peritonitis MSK - Extremities without obvious deformity or tenderness to palpation SKIN -cool, Dry NEURO - alert and appropriately oriented. Cranial nerves II through XII intact. Strength and sensation intact. Moves all extremities equally. PSYCH - Appropriate mood and affect Course ED course: - Patient was seen and evaluated by me at bedside - Patient placed on cardiac monitors, IV access obtained - Initial evaluation notable for somewhat ill appearance, patient is cool to the touch and has rigors. Nonfocal neurologic exam. -Symptom treatment ordered. - Labs notable for leukocytosis, normocytic anemia. Metabolic panel notable for elevated creatinine above baseline without acute need for dialysis. Delta troponin negative. Urinalysis concerning for urinary tract infection. - Imaging notable for no acute intracranial process on head CT which was ordered secondary to off-balance feeling without correlating neurologic exam to indicate peripheral process. Patient is not on a NOAC and given elevated creatinine and no focal neurologic deficits on clinical exam additional advanced imaging of the head deferred at this time. Imaging additionally concerning for pneumonia. -Antibiotics ordered. Given known renal insufficiency as well as ANSON patient is not a candidate for 30 cc/kg bolus. Antibiotic choice based on desire for pulmonary coverage as well as prior urinalysis with E faecalis. - Upon serial reexamination after treatment the patient was improved with symptomatic cares and bear hugger. - Based on patient history, evaluation, labs, and imaging as interpreted the most likely cause of the patient's condition is sepsis secondary to pneumonia and UTI. - The results of ED evaluation were discussed with the patient including plan for admission due to requirement for level of care not available if discharged to prevent significant worsening/deterioration. -Hospitalist service contacted and agreed to meet the patient - Patient was admitted without further deterioration or significant events. Vital Signs: Vital signs: Vital Signs Temperature 98.9 F 06/08/21 04:00 Pulse Rate 62 06/08/21 06:00 Respiratory Rate 16 06/08/21 04:00 Blood Pressure 159/59 06/08/21 04:00 Pulse Oximetry 92 06/08/21 04:00 MDM - Nausea/Vomiting/Diarrhea Medical Records: Attestation: I reviewed the patient's medical records. Lab Data: Attestation: I reviewed the patient's lab results. Labs: Lab Results 06/07/21 06/07/21 06/07/21 Range/Units 08:24 08:36 08:50 WBC 14.8 H (4.0-10.0) 10^3/ uL RBC 3.22 L (4.1-5.3) 10^6/u L Hgb 9.5 L (11.5-15.3) g/dL Hct 30.8 L (37.0-47.0) % MCV 95.7 (81-99) fl MCH 29.5 (28.0-34.0) pg MCHC 30.8 (30.0-36.0) g/dL RDW 14.2 (12.1-15.1) % Plt Count 259 (130-400) 10^3/c mm MPV 10.6 H (7.4-10.4) fL Neut % (Auto) 87.3 % Lymph % (Auto) 7.7 % Rush % (Auto) 3.0 % Eos % (Auto) 0.9 % Baso % (Auto) 0.5 % Neut # (Auto) 12.90 H (1.8-7.7) 10^3/u L Lymph # (Auto) 1.1 (0.8-4.8) 10^3/u L Rush # (Auto) 0.4 (0.2-0.9) 10^3/u L Eos # (Auto) 0.1 (0.0-0.8) 10^3/u L Baso # (Auto) 0.1 (0.0-0.1) 10^3/u L Nucleated RBC % (a uto) 0 % Nucleated RBCs # 0.0 /100WBC Sodium (136-145) mmol/L Potassium (3.5-5.1) mmol/L Chloride (98-107) mmol/L Carbon Dioxide (22-29) mmol/L Anion Gap (5-19) BUN (8-23) mg/dL Creatinine (0.5-0.9) mg/dL GFR Calculation Glucose (65-115) mg/dL POC Glucose 315 H (70-110) mg/dL Calculated Osmolal ity (285-295) mOsm/k g Lactate (0.5-2.2) mmol/L Calcium (8.5-10.5) mg/dL Magnesium (1.7-2.3) mg/dL Total Bilirubin (0.15-1.2) mg/dL AST (0-32) U/L ALT (0-33) U/L Alkaline Phosphata se (35-105) IU/L Troponin T Baselin e (0-10) ng/L Troponin T 120 [place] (0-10) ng/L Delta Troponin T (0-10) ABS# NT-Pro-B Natriuret Pep (0-450) pg/mL Total Protein (6.6-8.7) g/dL Albumin (3.5-5.2) g/dL Globulin (1.3-4.6) g/dL TSH (0.27-4.20) uIU/ mL Urine Color (Yellow) Urine Appearance (CLEAR) Urine pH (5-7) Ur Specific Gravit y (1.005-1.030) Urine Protein (Negative) Urine Glucose (UA) (Normal) Urine Ketones (Negative) Urine Blood (Negative) Urine Nitrate (Negative) Urine Bilirubin (Negative) Urine Urobilinogen (Negative) mg/dL Ur Leukocyte Chika ase (Negative) Urine RBC (0-2) /hpf Urine WBC (0-5) /hpf Ur Squamous Epith Cells (0-5) /hpf Amorphous Sediment Urine Bacteria (NONE) /hpf SARS-CoV-2 Ag (Rap id) Negative (Negative) 06/07/21 06/07/21 06/07/21 Range/Units 08:50 08:50 08:50 WBC (4.0-10.0) 10^3/ uL RBC (4.1-5.3) 10^6/u L Hgb (11.5-15.3) g/dL Hct (37.0-47.0) % MCV (81-99) fl MCH (28.0-34.0) pg MCHC (30.0-36.0) g/dL RDW (12.1-15.1) % Plt Count (130-400) 10^3/c mm MPV (7.4-10.4) fL Neut % (Auto) % Lymph % (Auto) % Rush % (Auto) % Eos % (Auto) % Baso % (Auto) % Neut # (Auto) (1.8-7.7) 10^3/u L Lymph # (Auto) (0.8-4.8) 10^3/u L Rush # (Auto) (0.2-0.9) 10^3/u L Eos # (Auto) (0.0-0.8) 10^3/u L Baso # (Auto) (0.0-0.1) 10^3/u L Nucleated RBC % (a uto) % Nucleated RBCs # /100WBC Sodium 136 (136-145) mmol/L Potassium 4.1 (3.5-5.1) mmol/L Chloride 96 L (98-107) mmol/L Carbon Dioxide 23 (22-29) mmol/L Anion Gap 21.1 H (5-19) BUN 61 H (8-23) mg/dL Creatinine 3.6 H (0.5-0.9) mg/dL GFR Calculation Not Reportable Glucose 303 H (65-115) mg/dL POC Glucose (70-110) mg/dL Calculated Osmolal ity 311 H (285-295) mOsm/k g Lactate 1.6 (0.5-2.2) mmol/L Calcium 9.2 (8.5-10.5) mg/dL Magnesium 2.3 (1.7-2.3) mg/dL Total Bilirubin 0.3 (0.15-1.2) mg/dL AST 19 (0-32) U/L ALT 23 (0-33) U/L Alkaline Phosphata se 109 H (35-105) IU/L Troponin T Baselin e (0-10) ng/L Troponin T 120 [place] (0-10) ng/L Delta Troponin T (0-10) ABS# NT-Pro-B Natriuret Pep 693 H (0-450) pg/mL Total Protein 7.3 (6.6-8.7) g/dL Albumin 4.0 (3.5-5.2) g/dL Globulin 3.3 (1.3-4.6) g/dL TSH 3.41 (0.27-4.20) uIU/ mL Urine Color Yellow (Yellow) Urine Appearance Cloudy (CLEAR) Urine pH 5 (5-7) Ur Specific Gravit y 1.015 (1.005-1.030) Urine Protein 1+ H (Negative) Urine Glucose (UA) 1+ H (Normal) Urine Ketones Negative (Negative) Urine Blood 2+ H (Negative) Urine Nitrate Negative (Negative) Urine Bilirubin Neg (Negative) Urine Urobilinogen Norm (Negative) mg/dL Ur Leukocyte Chika ase 2+ H (Negative) Urine RBC 15-25 H (0-2) /hpf Urine WBC >100 H (0-5) /hpf Ur Squamous Epith Cells 0-4 H (0-5) /hpf Amorphous Sediment Not Reportable Urine Bacteria 2+ H (NONE) /hpf SARS-CoV-2 Ag (Rap id) (Negative) 06/07/21 06/07/21 Range/Units 08:50 10:54 WBC (4.0-10.0) 10^3/ uL RBC (4.1-5.3) 10^6/u L Hgb (11.5-15.3) g/dL Hct (37.0-47.0) % MCV (81-99) fl MCH (28.0-34.0) pg MCHC (30.0-36.0) g/dL RDW (12.1-15.1) % Plt Count (130-400) 10^3/c mm MPV (7.4-10.4) fL Neut % (Auto) % Lymph % (Auto) % Rush % (Auto) % Eos % (Auto) % Baso % (Auto) % Neut # (Auto) (1.8-7.7) 10^3/u L Lymph # (Auto) (0.8-4.8) 10^3/u L Rush # (Auto) (0.2-0.9) 10^3/u L Eos # (Auto) (0.0-0.8) 10^3/u L Baso # (Auto) (0.0-0.1) 10^3/u L Nucleated RBC % (a uto) % Nucleated RBCs # /100WBC Sodium (136-145) mmol/L Potassium (3.5-5.1) mmol/L Chloride (98-107) mmol/L Carbon Dioxide (22-29) mmol/L Anion Gap (5-19) BUN (8-23) mg/dL Creatinine (0.5-0.9) mg/dL GFR Calculation Glucose (65-115) mg/dL POC Glucose (70-110) mg/dL Calculated Osmolal ity (285-295) mOsm/k g Lactate (0.5-2.2) mmol/L Calcium (8.5-10.5) mg/dL Magnesium (1.7-2.3) mg/dL Total Bilirubin (0.15-1.2) mg/dL AST (0-32) U/L ALT (0-33) U/L Alkaline Phosphata se (35-105) IU/L Troponin T Baselin e 104 H* (0-10) ng/L Troponin T 120 [place] 100.9 H (0-10) ng/L Delta Troponin T -3.1 L (0-10) ABS# NT-Pro-B Natriuret Pep (0-450) pg/mL Total Protein (6.6-8.7) g/dL Albumin (3.5-5.2) g/dL Globulin (1.3-4.6) g/dL TSH (0.27-4.20) uIU/ mL Urine Color (Yellow) Urine Appearance (CLEAR) Urine pH (5-7) Ur Specific Gravit y (1.005-1.030) Urine Protein (Negative) Urine Glucose (UA) (Normal) Urine Ketones (Negative) Urine Blood (Negative) Urine Nitrate (Negative) Urine Bilirubin (Negative) Urine Urobilinogen (Negative) mg/dL Ur Leukocyte Chika ase (Negative) Urine RBC (0-2) /hpf Urine WBC (0-5) /hpf Ur Squamous Epith Cells (0-5) /hpf Amorphous Sediment Urine Bacteria (NONE) /hpf SARS-CoV-2 Ag (Rap id) (Negative) Discharge Plan Discharge Patient Disposition: Admitted As Inpatient Admit Provider: Prabhjot Peralta Clinical Impression: Pneumonia, ANSON (acute kidney injury), Acute UTI Condition: Stable Coding Level of Care Code ED Lapping Machine Tender for Maria G Grissom
--- NOTE | 2021-06-07 08:09 | CT_ITS ---
WS: [id number] CT ABDOMEN AND PELVIS NONCONTRAST HISTORY: n/v/d TECHNIQUE: Imaging performed through the abdomen and pelvis. Coronal and sagittal reformats are submi tted. All CT scans at [facility] use at least one of these dose optimization techniques: auto mated exposure control; mA and/or kV adjustment per patient size (includes targeted exams where dose is matched to clinical indication); or iterative reconstruction. DLP: 1138.31 mGy.cm COMPARISON: None available. Lower thorax: New nodular densities at the lung bases but greater at the RIGHT lung base involving th e middle lobe and RIGHT lower lobe. Favor endobronchial pneumonia. These changes are new since 021. Less likely neoplastic. Mild enlargement of the heart. Small hiatal hernia. Liver: Normal size liver with granulomata. Gallbladder: Normal gallbladder. Pancreas: Mild atrophy of the pancreas. Spleen: Normal size spleen with granulomata. Again noted is a stable 13 mm cyst within the pancreas. Adrenal glands: Normal. No mass. Right kidney: Normal size kidney with no mass or hydronephrosis. Left kidney: Normal size kidney with no mass or hydronephrosis. Aorta: Extensive calcification within the aorta. No aneurysm. There is also extensive mesenteric lulu ry calcification. No free fluid, intraperitoneal air or significant lymphadenopathy. GI tract: Appendix is not necessarily identified. No inflammatory changes. No GI tract obstruction. Abdominal wall: Small fat-containing umbilical hernia. Fat stranding in the LEFT abdomen may be an in jection site. Pelvis: Normally distended urinary bladder. Senile appearance of the uterus. Bilateral small ovarian largest on the LEFT maxillary diameter of 2.4 cm. Osseous structures: L4 anterolisthesis by 10 mm. Advanced facet disease at L4-5 and L5-S1. No fractur es. Bone island or enchondroma the proximal LEFT femur. CT/CT abdomen pelvis wo con [id number] IMPRESSION: 1. Bilateral lower lobe and RIGHT middle lobe nodular opacifications. New sinc e 02/04/2021. Favor endobronchial pneumonia. 2. No acute abdominal or pelvic abnormalities are identified. 3. Extensive atherosclerotic calcifications and mesenteric artery calcificatio ns. 4. No GI tract obstruction.
--- NOTE | 2021-06-07 08:09 | CT_ITS ---
WS: [id number] CT HEAD NONCONTRAST HISTORY: dizzy TECHNIQUE: Contiguous axial imaging performed through the brain in 2.5 mm imaging. Bone and soft tiss ue windows. Sagittal and coronal reformats reviewed. All CT scans at [facility] use at least one of these dose optimization techniques: automated exposure control; mA and/or kV adjustment per pa tient size (includes targeted exams where dose is matched to clinical indication); or iterative recon struction. DLP: 883.93 mGy.cm COMPARISON: 10/20/2020, 12/15/2018 No acute intracranial hemorrhage, midline shift or mass effect. Mild atrophy and chronic ischemic disease. Calcifications and increased density along the tentorium a re stable since 12/15/2018. Extra-axial rounded RIGHT temporal mass measures 11 mm and is stable. Ther e is an additional calcification which is extra-axial towards the posterior RIGHT parietal region. Th paris are probably both meningiomas which have been stable over multiple years. Ventricles: Ventricles overall are mildly prominent. Very slight progression of ventricular dilatati on overall since 2019. Temporal horns and third ventricle and increased in size by up to 2 mm. Moderate atherosclerotic plaque through the cavernous sinuses and supraclinoid carotid arteries. Dominik tional calcified plaque in the distal vertebral arteries. Paranasal sinuses: As visualized are clear. Mastoid air cells: Well pneumatized. Calvarium and scalp: Skull is intact with no soft tissue edema or swelling. CT/CT head wo con* [id number] IMPRESSION: 1. No acute intracranial hemorrhage or edema. 2. Stable meningiomas as previously described. 3. Very minimal progression of diffuse ventricular dilatation since 2019. May be related to progression of cerebral atrophy or early changes of normal pressu re hydrocephalus.
--- NOTE | 2021-06-07 08:09 | XR_ITS ---
WS: [id number] PORTABLE CHEST HISTORY: Short of breath. COMPARISON: 03/15/2021 Mild interstitial edema has improved since the prior study. No focal areas of consolidation. No pleur al effusion or pneumothorax. Cardiac size: Mildly enlarged cardiac silhouette. Mediastinum/Aorta: Mild atherosclerosis aorta. No osseous abnormality seen. XR/XR chest 1V portable [id number] IMPRESSION: Very mild interstitial edema and cardiomegaly. Overall improved since 03/15/2021 . No pneumonia.
[2021-06-07] MEDS: ondansetron 2 mg/ML SDV 2 mL 4 MG IVP ×3 (08:10→15:49)
[2021-06-07 08:26] LABS: Glucose Point of Care 315 mg/dL (70-110)
[2021-06-07 08:57] LABS: Basophils # 0.1 10^3/uL (0.0-0.1); Basophils % 0.5 %; Eosinophils # 0.1 10^3/uL (0.0-0.8); Eosinophils % 0.9 %; Hematocrit 30.8 % (37.0-47.0); Hemoglobin 9.5 g/dL (11.5-15.3); Lymphocytes # 1.1 10^3/uL (0.8-4.8); Lymphocytes % 7.7 %; Mean Corpuscular HGB Conc 30.8 g/dL (30.0-36.0); Mean Corpuscular Hemoglobin 29.5 pg (28.0-34.0); Mean Corpuscular Volume 95.7 fl (81-99); Mean Platelet Volume 10.6 fL (7.4-10.4); Monocytes # 0.4 10^3/uL (0.2-0.9); Neutrophils % 87.3 %; Nucleated Red Blood Cells % 0 %; Platelet Count 259 10^3/cmm (130-400); Red Blood Count 3.22 10^6/uL (4.1-5.3); Red Cell Distribution Width 14.2 % (12.1-15.1); White Blood Count 14.8 10^3/uL (4.0-10.0)
--- NOTE | 2021-06-07 09:04 | PC.PHAR ---
pt states her craig takes care of her medications-rx last filled on 02/24/21 90d/s for amlodipine 5mg daily-pts states the pt only takes 2.5mg daily-ext med history shows last filled on 05/20/21 30d/s for lasix 120mg bid prn-pts states it was changed to 80mg qam and 40mg @15:00-rx written in 03/05/21 for humalog kwikpen 15 units tid-pts states the pt uses ss qid before each meal-rx filled on 05/24/21 for metoprolol tartrate 25mg bid pts states he only if 12.5mg bid if the pts pulse isnt below 60-notes are made in the pharmacy comments
[2021-06-07 09:19] LABS: Lactate (Lactic Acid level) 1.6 mmol/L (0.5-2.2)
[2021-06-07 09:29] LABS: Add Urine Microscopic? YES; Bilirubin Urine Neg (Negative); Blood Urine 2+ (Negative); Glucose Urine UA 1+ (Normal); Ketones Urine Negative (Negative); Leukocyte Esterase Urine 2+ (Negative); Nitrate Urine Negative (Negative); Protein Urine 1+ (Negative); Specific Gravity, Urine 1.015 (1.005-1.030); Urine Appearance Cloudy (CLEAR); Urine Color Yellow (Yellow); Urobilinogen Urine Norm (Negative); pH Urine 5 (5-7)
[2021-06-07 09:30] LABS: Add Urine Culture? Yes; Bacteria Urine 2+ /hpf; RBC Urine 15-25 /hpf (0-2); Squamous Epithelial Cell Urine 0-4 /hpf (0-5); WBC Urine >100 /hpf (0-5)
[2021-06-07 09:33] LABS: Alanine Aminotransferase 23 U/L (0-33); Alkaline Phosphatase 109 IU/L (35-105); Anion Gap 21.1 (5-19); Aspartate Amino Transferase 19 U/L (0-32); Blood Urea Nitrogen 61 mg/dL (8-23); Calcium 9.2 mg/dL (8.5-10.5); Carbon Dioxide 23 mmol/L (22-29); Chloride 96 mmol/L (98-107); Globulin 3.3 g/dL (1.3-4.6); Glucose 303 mg/dL (65-115); Magnesium 2.3 mg/dL (1.7-2.3); NT Pro B Type Natriuretic Pept 693 pg/mL (0-450); Osmolality Calculated 311 mOsm/kg (285-295); Potassium 4.1 mmol/L (3.5-5.1); Sodium 136 mmol/L (136-145); Thyroid Stimulating Hormone 3.41 uIU/mL (0.27-4.20); Total Bilirubin 0.3 mg/dL (0.15-1.2); Total Protein 7.3 g/dL (6.6-8.7)
[2021-06-07 09:36] LABS: SARS Covid-2 Antigen Negative (Negative)
[2021-06-07] MEDS: levofloxacin-dextrose 5 % 750 MG/150 ML PREMIX 100 MG IV (09:55)
[2021-06-07 10:22] LABS: Troponin(5th) Baseline 104 ng/L (0-10)
[2021-06-07] MEDS: sodium chloride 0.9% 500 ML 999 ML IV (11:35)
[2021-06-07 11:44] LABS: Troponin 5 2HR Delta -3.1 ABS# (0-10)
[2021-06-07 11:45] LABS: Troponin 5 2HR 100.9 ng/L (0-10)
--- NOTE | 2021-06-07 15:15 | P.HP_ITS ---
Providers/Chief Complaint Admitting Physician: Prabhjot Peralta MD Primary Care Provider: Mann Garduno MD Chief Complaint: NAUSEA, VOMIT, WEAK History of Present Illness Luiza Cooper is a 81 year old female with PMH HFpEF, CKD Stage 4 (chronic kidney disease) currently under evaluation for P/D Catheter placement , COVID 19, A fib ,came in with c/o dizziness as well as nausea,vomiting and loose stool,started this morning.Upon arrival in the ER she was worked up for above mention complain. C.T head without contrast :No acute intrcranial pathology CT abdomen pelvis wo con: No acute abdominal or pelvic abnormalities Xray chest :No infiltrates,PTX,effusion EKG: Pertinent Labs: wbc: 14.8 H&H : 9.5/30.8 PLT : 259 Serum Na: 136 ,k : 4.1 BUN/SCR: 61/3.6 , Troponin trend without significant delta. ProBNP:693 TSH:3.41 Urine analysis :Dirty Rapid COVID:Negative Review of Systems Const: Denies: chills, body aches, change in appetite or diaphoresis Card: Denies: palpitations, edema, swelling of feet/ankles, dyspnea on exertion, orthopnea or leg pain with exertion Resp: Denies: dyspnea, productive cough, wheezing or pain on inspiration GI: Denies: abdominal pain or constipation : Denies: flank pain Musc: Denies: back pain, extremity pain or extremity swelling Neuro: Denies: headache(s) Medications/Allergies Home Medications Medication Instructions Recorded Confirmed Last Taken Type doxazosin 2 mg tablet 2 mg PO BEDTIME@03/15/20 06/07/21 06/06/21 History ferrous sulfate 325 mg (65 mg 325 mg PO TID@,,03/26/20 06/07/21 06/06/21 History iron) tablet pantoprazole 40 mg tablet,delayed 40 mg PO DAILY@08 #60 tab 09/10/20 06/07/21 06/06/21 Rx release cyanocobalamin (vitamin B-12) 1,000 mcg PO QAM 09/25/20 06/07/21 06/06/21 History [Vitamin B-12] folic acid 1 mg PO DAILY@1200 09/25/20 06/07/21 06/06/21 History mirtazapine 15 mg PO BEDTIME@199909/25/20 06/07/21 06/06/21 History coenzyme Q10 75 mg capsule 75 mg PO DAILY@219910/12/20 06/07/21 06/06/21 History docusate sodium 100 mg capsule 100 mg PO PRN PRN 10/12/20 06/07/21 10/20/20 History atorvastatin 40 mg PO BEDTIME@219910/20/20 06/07/21 06/06/21 History sucralfate [Carafate] 1 g PO TID PRN 10/20/20 06/07/21 Unknown History amlodipine 10 mg tablet 2.5 mg PO DAILY@12 tab 11/16/20 06/07/21 06/06/21 History potassium chloride 20 mEq 10 meq PO BID tab 03/15/21 06/07/21 06/06/21 History tablet,extended release(part/cryst) furosemide 40 mg tablet See Rx Instructions .ROUTE 04/16/21 06/07/21 06/06/21 History .COMPLEX tab Humalog KwikPen Insulin See Rx Instructions .ROUTE .COMPLEX 06/07/21 06/07/21 Unknown History amiodarone [Pacerone] 200 mg PO QAM 06/07/21 06/07/21 06/06/21 History insulin glargine [Lantus Solostar 15 unit SUBCUT BEDTIME 06/07/21 06/07/21 06/06/21 History U-100 Insulin] levothyroxine [Euthyrox] 75 mcg PO QAM 06/07/21 06/07/21 06/06/21 History metoprolol tartrate 12.5 mg PO BID 06/07/21 06/07/21 06/06/21 History 12.5mg rivaroxaban [Xarelto] 15 mg PO QPM 06/07/21 06/07/21 06/06/21 History spironolactone 25 mg PO QAM 06/07/21 06/07/21 06/06/21 History Allergies Allergy/AdvReac Type Severity Reaction Status Date / Time Penicillins Allergy Intermediate rash Verified 06/07/21 09:03 PFSH Acute PFSH: Medical History Altered mental status Anemia Atrial fibrillation CHF (congestive heart failure) CKD (chronic kidney disease) COVID-19 resolved Diabetes GERD (gastroesophageal reflux disease) HTN (hypertension) Hypothyroidism Meningioma Osteoarthritis (arthritis due to wear and tear of joints) PVC (premature ventricular contraction) Surgical History S/P cataract extraction S/P cervical spinal fusion S/P tonsillectomy Status post tubal ligation Family History Mother Hypertension Grandmother Hypertension MATERNAL Other Cancer Diabetes Social History Smoking and tobacco status: former smoker Quit status (tobacco): has quit using tobacco Year quit tobacco: 1977 [id number] Second hand smoke exposure: Yes Smoking risk assessment/counseling performed?: Yes Alcohol intake: never Caregiver/support person: Yes Lives independently: Yes Household members: spouse and children Housing: House Marital status: Current occupational status: retired Pets and animals: Yes History of recent travel: No Current gender identity: Female Vitals/I&O/Wt Last Vital Signs Temp 97.8 F 06/07/21 12:06 Pulse 62 06/07/21 12:40 Resp 20 H 06/07/21 12:40 BP 125/68 06/07/21 12:40 Pulse Ox 97 06/07/21 12:40 06/07/21 06/07/21 06/07/21 06:59 14:59 22:59 Intake Total 650 / 650 Balance 650 / 650 Weight last 48 hrs Weight 73.028 kg Physical Exam Const: COMMON NORMALS: patient oriented x3 HENMT: COMMON NORMALS: normocephalic and atraumatic HEAD & SCALP: normocephalic and atraumatic Chest: COMMONS NORMALS: normal inspection of the chest and normal palpation of entire chest wall CHEST: Yes Symmetrical chest wall rise Resp: COMMON NORMALS: normal respiratory effort and clear to auscultation bilaterally EFFORT & INSPECTION: Yes symmetric chest movement AUSCULTATION: clear to auscultation bilaterally Cardio: COMMON NORMALS: regular rate, regular rhythm, S1 normal heart sound present, S2 normal heart sound present, No murmurs present (Cardio), No rub (Cardio) and Peripheral pulses 2+ throughout RATE: regular rate RHYTHM: regular rhythm HEART SOUNDS: S1 normal heart sound present and S2 normal heart sound present PERIPHERAL PULSES: Peripheral pulses 2+ throughout GI: COMMON NORMALS: Normal to inspection, nondistended, normoactive bowel sounds present, Soft to palpation, non-tender, No hepatosplenomegaly present and no masses AUSCULTATION: Yes normoactive bowel sounds PALPATION: Yes Soft to palpation and Yes No hepatosplenomegaly present RECTAL EXAM: deferred Extremity: COMMON NORMALS: no clubbing, cyanosis or edema and no pedal edema Neuro: COMMON NORMALS: patient oriented x3 Data : 06/07/21 08:50 06/07/21 08:50 Micro: Microbiology 06/07/21 09:03 Blood Culture - Preliminary Blood SPECIMEN COLLECTED 06/07/21 09:00 Blood Culture - Preliminary Blood SPECIMEN COLLECTED A&P Assessment and plan (1) Acute kidney injury superimposed on CKD: Prerenal ANSON ON CKD Stage IV 2/2 dehydration and diuretic use. Urine elctrolytes I/O Charting Gentle I.V hydration Monitor BMP Avoid nephrotoxics Status: Acute (2) Acute UTI: Follow Urine culture Follow blood culture CEF 1 Gm q24h Status: Acute (3) Pneumonia: Blood culture Plan as above Status: Acute (4) CHF (congestive heart failure): Status: Acute Qualifiers: Heart failure type: diastolic Heart failure chronicity: chronic Qualified Code(s): I50.32 - Chronic diastolic (congestive) heart failure (5) Diabetes: Lantus 15 u SC at night LDSSI [place] consistent diet Monitor FSG Status: Chronic Additional A&P Information Code status :Full code DVT PPX :On xaralto Attestations Medical Necessity Statement*: Patient needs to be hospital for the management OF ANSON, UTI, Dizziness.Anticipated LOS Greater then 2 midnights. 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
[2021-06-07 15:47] LABS: Troponin 5 6HR Delta -2.4 ng/L (0-12)
[2021-06-07 15:49] LABS: Troponin 5 6HR 101.6 ng/L (0-10)
[2021-06-07] MEDS: meclizine 25 mg tablet PO (15:49)
[2021-06-07] MEDS: heparin 5,000 unit/mL INJ 1 mL 5000 UNIT SUBCUT (15:49)
[2021-06-07] MEDS: cefTRIAXone 1,000 MG in sodium chloride 0.9% (plus) 50 ML 100 MG IV (15:50)
[2021-06-07 15:52] LABS: Glucose Point of Care 288 mg/dL (70-110)
[2021-06-07 16:55] LABS: Glucose Point of Care 277 mg/dL (70-110)
--- NOTE | 2021-06-07 18:54 | PC.NURSE ---
Report to Musa MARISCAL at this time.
[2021-06-07] MEDS: mirtazapine 15 mg Tablet PO (19:40)
[2021-06-07] MEDS: ferrous sulfate EC 325 mg Tablet PO (19:40)
[2021-06-07 20:39] LABS: Glucose Point of Care 247 mg/dL (70-110)
[2021-06-07] MEDS: atorvastatin 40 mg Tablet PO (21:28)
[2021-06-07] MEDS: insulin glargine 100 units/1 mL 15 UNIT SUBCUT (23:18)
[2021-06-08] VITALS (11 sets, daily range): BP systolic 140–163; BP diastolic 54–78; PULSE 58–112; RESP 16–18; TEMP 36.6–37.4; O2SAT 90–97
[2021-06-08] MEDS: heparin 5,000 unit/mL INJ 1 mL 5000 UNIT SUBCUT ×2 (03:47→17:21)
[2021-06-08 05:09] LABS: Basophils % 0.3 %; Eosinophils # 0.1 10^3/uL (0.0-0.8); Eosinophils % 0.6 %; Hematocrit 26.9 % (37.0-47.0); Hemoglobin 8.6 g/dL (11.5-15.3); Lymphocytes # 1.6 10^3/uL (0.8-4.8); Lymphocytes % 16.1 %; Mean Corpuscular Hemoglobin 30.4 pg (28.0-34.0); Mean Corpuscular Volume 95.1 fl (81-99); Mean Platelet Volume 10.2 fL (7.4-10.4); Monocytes # 0.6 10^3/uL (0.2-0.9); Monocytes % 6.1 %; Neutrophils % 76.5 %; Nucleated Red Blood Cells % 0 %; Platelet Count 253 10^3/cmm (130-400); Red Blood Count 2.83 10^6/uL (4.1-5.3); Red Cell Distribution Width 14.4 % (12.1-15.1); White Blood Count 9.8 10^3/uL (4.0-10.0)
[2021-06-08] MEDS: meclizine 25 mg tablet PO ×2 (05:31→20:39)
[2021-06-08] MEDS: amiodarone 200 mg Tablet PO (05:32)
[2021-06-08] MEDS: cyanocobalamin 1,000 mcg Tablet 1000 MCG PO (05:32)
[2021-06-08] MEDS: levothyroxine 75 mcg Tablet PO (05:33)
[2021-06-08 05:35] LABS: Alanine Aminotransferase 21 U/L (0-33); Albumin Level 3.6 g/dL (3.5-5.2); Alkaline Phosphatase 103 IU/L (35-105); Anion Gap 16.2 (5-19); Aspartate Amino Transferase 14 U/L (0-32); Blood Urea Nitrogen 57 mg/dL (8-23); Calcium 9.5 mg/dL (8.5-10.5); Carbon Dioxide 27 mmol/L (22-29); Chloride 98 mmol/L (98-107); Glucose 199 mg/dL (65-115); Magnesium 2.4 mg/dL (1.7-2.3); Osmolality Calculated 305 mOsm/kg (285-295); Potassium 4.2 mmol/L (3.5-5.1); Sodium 137 mmol/L (136-145); Total Bilirubin 0.3 mg/dL (0.15-1.2); Total Protein 6.6 g/dL (6.6-8.7)
[2021-06-08 06:17] LABS: Procalcitonin 0.33 ng/mL (0-0.5)
[2021-06-08 06:41] LABS: Glucose Point of Care 217 mg/dL (70-110)
[2021-06-08] MEDS: pantoprazole DR 40 mg Tablet PO (08:15)
[2021-06-08] MEDS: ferrous sulfate EC 325 mg Tablet PO ×3 (08:15→20:38)
[2021-06-08 10:26] LABS: Glucose Point of Care 215 mg/dL (70-110)
--- NOTE | 2021-06-08 11:52 | PM.PN ---
Subjective Subjective: Interval history: Patient was seen and examined this morning continues to complain of dizziness, as well as nausea. Medications: Reviewed: Yes Vitals/I&O/Wt Last Vital Signs Temp 98.8 F 06/08/21 11:32 Pulse 59 L 06/08/21 11:32 Resp 16 06/08/21 11:32 BP 140/54 06/08/21 11:32 Pulse Ox 94 06/08/21 11:32 06/07/21 06/08/21 06/08/21 22:59 06:59 14:59 Intake Total 50 / 700 240 / 940 250 / 250 Output Total 700 / 700 300 / 1000 300 / 300 Balance -650 / 0 -60 / -60 -50 / -50 Weight last 48 hrs Weight 57.833 kg Weight 73.028 kg Physical Exam Const: COMMON NORMALS: patient oriented x3 HENMT: COMMON NORMALS: normocephalic and atraumatic HEAD & SCALP: normocephalic and atraumatic Chest: COMMONS NORMALS: normal inspection of the chest and normal palpation of entire chest wall CHEST: Yes Symmetrical chest wall rise Resp: COMMON NORMALS: normal respiratory effort and clear to auscultation bilaterally EFFORT & INSPECTION: Yes symmetric chest movement AUSCULTATION: clear to auscultation bilaterally Cardio: COMMON NORMALS: regular rate, regular rhythm, S1 normal heart sound present, S2 normal heart sound present, No murmurs present (Cardio), No rub (Cardio) and Peripheral pulses 2+ throughout RATE: regular rate RHYTHM: regular rhythm HEART SOUNDS: S1 normal heart sound present and S2 normal heart sound present PERIPHERAL PULSES: Peripheral pulses 2+ throughout GI: COMMON NORMALS: Normal to inspection, nondistended, normoactive bowel sounds present, Soft to palpation, non-tender, No hepatosplenomegaly present and no masses AUSCULTATION: Yes normoactive bowel sounds PALPATION: Yes Soft to palpation and Yes No hepatosplenomegaly present RECTAL EXAM: deferred Extremity: COMMON NORMALS: no clubbing, cyanosis or edema and no pedal edema Neuro: COMMON NORMALS: patient oriented x3 Data : 06/08/21 04:58 06/08/21 04:58 Micro: Microbiology 06/07/21 09:03 Blood Culture - Preliminary Blood NEGATIVE TO DATE 06/07/21 09:00 Blood Culture - Preliminary Blood NEGATIVE TO DATE 06/07/21 08:50 Urine Culture - Preliminary Urine,Clean Catch A&P Assessment and plan (1) Acute kidney injury superimposed on CKD: Prerenal ANSON ON CKD Stage IV 2/2 dehydration and diuretic use. Urine elctrolytes I/O Charting Gentle I.V hydration Monitor BMP Avoid nephrotoxics Status: Acute (2) Acute UTI: Follow Urine culture Follow blood culture CEF 1 Gm q24h Status: Acute (3) Pneumonia: Blood culture Continue Cef 1 gm q24h Status: Acute (4) CHF (congestive heart failure): HFpEF currently compensated. On Lasix 80 Mg and 40 mg at home. Will hold for now as patient is Dry I/O Charting Daily Weight Status: Acute Qualifiers: Heart failure chronicity: chronic Heart failure type: diastolic Qualified Code(s): I50.32 - Chronic diastolic (congestive) heart failure (5) Diabetes: Lantus 15 u SC at night LDSSI [place] consistent diet Monitor FSG Status: Chronic (6) Atrial fibrillation: Currently On Amiodarone 100 mg po daily as outpatient. TELE Xarelto 15 mg po daily Status: Acute Additional A&P Information Code status :Full code DVT PPX :On xaralto Attestations Medical Necessity Statement*: Patient is to be in hospital for management of ANSON , dehydration, persistent severe dizziness. Coding Level of Care Code Acute Sap Portal Consultant for [facility] Fwd Exam Detailed Diagnoses Acute kidney injury superimposed on CKD N17.9; N18.9 Acute UTI N39.0 Pneumonia J18.9 CHF (congestive heart failure) I50.32 Heart failure chronicity: chronic Heart failure type: diastolic Diabetes E11.9 Atrial fibrillation I48.91
[2021-06-08] MEDS: amlodipine 10 mg Tablet 2.5 MG PO (12:41)
[2021-06-08] MEDS: folic acid 1 mg Tablet PO (12:41)
--- NOTE | 2021-06-08 15:42 | PC.NURSE ---
Report to Jaleesa ZAMORA at this time.
[2021-06-08 16:55] LABS: Glucose Point of Care 468 mg/dL (70-110)
[2021-06-08] MEDS: cefTRIAXone 1,000 MG in sodium chloride 0.9% (plus) 50 ML 100 MG IV (17:21)
[2021-06-08] MEDS: rivaroxaban 10 mg Tablet 15 MG PO (17:21)
--- NOTE | 2021-06-08 17:42 | ECG_ITS ---
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 Measurements Intervals [place] Rate: 63 P: 8 NE: 194 QRS: 39 QRSD: 107 T: 72 QT: 473 QTc: 484 Interpretive Statements SINUS RHYTHM MODERATE INTRAVENTRICULAR CONDUCTION DELAY [105+ ms QRS DURATION, 80+ ms Q/S IN V1/V2, NO Q AND 60+ ms R IN I/aVL/V5/V6] PROLONGED QT INTERVAL Compared to ECG 10/20/2020 13:31:01 Intraventricular conduction delay now present Prolonged QT interval now present Electronically Signed On 06-09-2021 18:14:14 CDT by Liliane Almendarez M.D. [id number]
[2021-06-08 20:36] LABS: Glucose Point of Care 194 mg/dL (70-110)
[2021-06-08] MEDS: mirtazapine 15 mg Tablet PO (20:39)
[2021-06-08] MEDS: insulin glargine 100 units/1 mL 15 UNIT SUBCUT (22:07)
[2021-06-08] MEDS: atorvastatin 40 mg Tablet PO (22:07)
[2021-06-08 22:16] LABS: Glucose Point of Care 156 mg/dL (70-110)
[2021-06-09 01:35] LABS: Glucose Point of Care 193 mg/dL (70-110)
[2021-06-09 03:17] VITALS: BP 162/67; PULSE 63; RESP 18; TEMP 36.8; O2SAT 90
[2021-06-09] MEDS: heparin 5,000 unit/mL INJ 1 mL 5000 UNIT SUBCUT (05:01)
[2021-06-09] MEDS: cyanocobalamin 1,000 mcg Tablet 1000 MCG PO (05:02)
[2021-06-09] MEDS: levothyroxine 75 mcg Tablet PO (05:02)
[2021-06-09] MEDS: amiodarone 200 mg Tablet 100 MG PO (05:02)
[2021-06-09 06:00] VITALS: PULSE 64
[2021-06-09 06:12] LABS: Basophils # 0.1 10^3/uL (0.0-0.1); Basophils % 0.6 %; Eosinophils # 0.3 10^3/uL (0.0-0.8); Eosinophils % 2.8 %; Hematocrit 29.4 % (37.0-47.0); Lymphocytes # 1.4 10^3/uL (0.8-4.8); Lymphocytes % 15.2 %; Mean Corpuscular HGB Conc 30.6 g/dL (30.0-36.0); Mean Corpuscular Hemoglobin 29.8 pg (28.0-34.0); Mean Corpuscular Volume 97.4 fl (81-99); Mean Platelet Volume 10.5 fL (7.4-10.4); Monocytes # 0.5 10^3/uL (0.2-0.9); Monocytes % 5.4 %; Neutrophils # 6.77 10^3/uL (1.8-7.7); Neutrophils % 75.6 %; Nucleated Red Blood Cells % 0 %; Platelet Count 246 10^3/cmm (130-400); Red Blood Count 3.02 10^6/uL (4.1-5.3)
[2021-06-09 06:39] LABS: Alanine Aminotransferase 21 U/L (0-33); Albumin Level 3.6 g/dL (3.5-5.2); Alkaline Phosphatase 99 IU/L (35-105); Anion Gap 18.3 (5-19); Aspartate Amino Transferase 16 U/L (0-32); Blood Urea Nitrogen 57 mg/dL (8-23); Calcium 9.6 mg/dL (8.5-10.5); Carbon Dioxide 24 mmol/L (22-29); Chloride 99 mmol/L (98-107); Globulin 3.2 g/dL (1.3-4.6); Glucose 204 mg/dL (65-115); Osmolality Calculated 306 mOsm/kg (285-295); Potassium 4.3 mmol/L (3.5-5.1); Sodium 137 mmol/L (136-145); Total Bilirubin 0.3 mg/dL (0.15-1.2); Total Protein 6.8 g/dL (6.6-8.7)
[2021-06-09 07:10] LABS: Glucose Point of Care 219 mg/dL (70-110)
[2021-06-09 07:49] VITALS: BP 153/72; PULSE 63; RESP 14; TEMP 36.9; O2SAT 90
[2021-06-09] MEDS: meclizine 25 mg tablet PO (07:58)
[2021-06-09] MEDS: ondansetron 2 mg/ML SDV 2 mL 4 MG IVP (07:58)
[2021-06-09] MEDS: acetaminophen 325 mg Tablet 650 MG PO (07:58)
[2021-06-09] MEDS: ferrous sulfate EC 325 mg Tablet PO ×2 (07:58→11:22)
[2021-06-09] MEDS: pantoprazole DR 40 mg Tablet PO (07:58)
[2021-06-09 11:08] LABS: Glucose Point of Care 254 mg/dL (70-110)
--- NOTE | 2021-06-09 11:18 | P.DS_ITS ---
Discharge Providers Date of Admission: 06/07/21 12:07 Date of Discharge: June 09, 2021 Attending Provider at Admission: Prabhjot Peralta MD Attending Provider at Discharge: Prabhjot Peralta MD Primary Care Provider: Mann Garduno MD Diagnoses at Discharge Discharge Diagnosis (1) Acute kidney injury superimposed on CKD: Status: Acute (2) Acute UTI: Status: Acute (3) Pneumonia: Status: Acute (4) CHF (congestive heart failure): Status: Acute Qualifiers: Heart failure chronicity: chronic Heart failure type: diastolic Qualified Code(s): I50.32 - Chronic diastolic (congestive) heart failure (5) Diabetes: Status: Chronic (6) Atrial fibrillation: Status: Acute Reason for Visit Reason for Visit: NAUSEA, VOMIT, WEAK Hospital Course Hospital Course Luzia Cooper is a 81 year old female with PMH HFpEF, CKD Stage 4 (chronic kidney disease) currently under evaluation for P/D Catheter placement , COVID 19, A fib ,came in with c/o dizziness as well as nausea,vomiting and loose stool,started this morning.Upon arrival in the ER she was worked up for above mention complain. C.T head without contrast :No acute intrcranial pathology. CT abdomen pelvis wo con: No acute abdominal or pelvic abnormalities. Xray chest :No infiltrates,PTX,effusion EKG:Sinus Rhythm. Pertinent Labs: wbc: 14.8 H&H : 9.5/30.8 PLT : 259 Serum Na: 136 ,k : 4.1 BUN/SCR: 61/3.6 , Troponin trend without significant delta. ProBNP:693 TSH:3.41 Urine analysis :Dirty Rapid COVID:Negative. She was admitted for the management of ANSON On CKD Stage , UTI and dizziness and Pneumonia. Prerenal ANSON secondary to dehydration and diuretic use responded to well to fluid resuscitation. Lasix was kept on hold during the hospital stay, as she was dry, will continue to hold Lasix for now. For her UTI and pneumonia, she was kept on antibiotics, to which she responded well. Urine culture was negative at the time of discharge, blood culture was negative at the time of discharge. For history of A. fib, she was in sinus rhythm, curbside cardiology discussion was done, regarding the dose of amiodarone, outpatient plan was to slowly discontinue amiodarone, given the concerns of pulmonary fibrosis in post Covid patient, known side effects of amiodarone. Currently the amiodarone dose has been reduced to 50 mg p.o. daily. For her dizziness responded well to meclizine, she has been discharged on as needed meclizine. Patient will continue to follow with Dr. Henry as an outpatient as there is plan for PD catheter placement evaluation. Patient responded well to the above medical management and is being discharged in stable condition. She will continue to follow her PCP as well her Cardiology as outpatient. Physical Exam Const: COMMON NORMALS: patient oriented x3 HENMT: COMMON NORMALS: normocephalic and atraumatic HEAD & SCALP: normocephalic and atraumatic Chest: COMMONS NORMALS: normal inspection of the chest and normal palpation of entire chest wall CHEST: Yes Symmetrical chest wall rise Resp: COMMON NORMALS: normal respiratory effort and clear to auscultation bilaterally EFFORT & INSPECTION: Yes symmetric chest movement AUSCULTATION: clear to auscultation bilaterally Cardio: COMMON NORMALS: regular rate, regular rhythm, S1 normal heart sound present, S2 normal heart sound present, No murmurs present (Cardio), No rub (Cardio) and Peripheral pulses 2+ throughout RATE: regular rate RHYTHM: r egular rhythm HEART SOUNDS: S1 normal heart sound present and S2 normal heart sound present PERIPHERAL PULSES: Peripheral pulses 2+ throughout GI: COMMON NORMALS: Normal to inspection, nondistended, normoactive bowel sounds present, Soft to palpation, non-tender, No hepatosplenomegaly present and no masses AUSCULTATION: Yes normoactive bowel sounds PALPATION: Yes Soft to palpation and Yes No hepatosplenomegaly present RECTAL EXAM: deferred Extremity: COMMON NORMALS: no clubbing, cyanosis or edema and no pedal edema Neuro: COMMON NORMALS: patient oriented x3 Discharge Data Data Completed and Pending: Completed Studies During Hospitalization Category Date Time Status CT abdomen pelvis wo con [id number] Urge nt Cat Scan 06/07/21 08:[address] head wo con* [id number] Urgent Cat Scan 06/07/21 08:09 Completed XR chest 1V toñito ble [id number] Urgent Exams 06/07/21 08:09 Completed Pending at discharge Category Date Time Status Blood Culture Sta t Lab 06/07/21 09:03 Results Complete Blood Co unt w/Auto AM LABS Lab 06/10/21 04:00 Ordered Comprehensive Met abolic Panel AM LA BS Lab 06/10/21 04:00 Ordered Labs from last 24 hours 06/09/21 06/09/21 06/09/21 10:48 06:06 05:40 WBC RBC Hgb Hct MCV MCH MCHC RDW Plt Count MPV Neut % (Auto) Lymph % (Auto) Emanuel % (Auto) Eos % (Auto) Baso % (Auto) Neut # (Auto) Lymph # (Auto) Emanuel # (Auto) Eos # (Auto) Baso # (Auto) Nucleated RBC % (a uto) Nucleated RBCs # Sodium 137 Potassium 4.3 Chloride 99 Carbon Dioxide 24 Anion Gap 18.3 BUN 57 H Creatinine 3.3 H GFR Calculation Not Reportable Glucose 204 H POC Glucose 254 H 219 H Calculated Osmolal ity 306 H Calcium 9.6 Total Bilirubin 0.3 AST 16 ALT 21 Alkaline Phosphata se 99 Total Protein 6.8 Albumin 3.6 Globulin 3.2 06/09/21 06/09/21 06/08/21 05:40 01:32 22:04 WBC 9.0 RBC 3.02 L Hgb 9.0 L Hct 29.4 L MCV 97.4 MCH 29.8 MCHC 30.6 RDW 14.0 Plt Count 246 MPV 10.5 H Neut % (Auto) 75.6 Lymph % (Auto) 15.2 Emanuel % (Auto) 5.4 Eos % (Auto) 2.8 Baso % (Auto) 0.6 Neut # (Auto) 6.77 Lymph # (Auto) 1.4 Emanuel # (Auto) 0.5 Eos # (Auto) 0.3 Baso # (Auto) 0.1 Nucleated RBC % (a uto) 0 Nucleated RBCs # 0.0 Sodium Potassium Chloride Carbon Dioxide Anion Gap BUN Creatinine GFR Calculation Glucose POC Glucose 193 H 156 H Calculated Osmolal ity Calcium Total Bilirubin AST ALT Alkaline Phosphata se Total Protein Albumin Globulin 06/08/21 06/08/21 20:33 16:34 WBC RBC Hgb Hct MCV MCH MCHC RDW Plt Count MPV Neut % (Auto) Lymph % (Auto) Emanuel % (Auto) Eos % (Auto) Baso % (Auto) Neut # (Auto) Lymph # (Auto) Emanuel # (Auto) Eos # (Auto) Baso # (Auto) Nucleated RBC % (a uto) Nucleated RBCs # Sodium Potassium Chloride Carbon Dioxide Anion Gap BUN Creatinine GFR Calculation Glucose POC Glucose 194 H 468 H Calculated Osmolal ity Calcium Total Bilirubin AST ALT Alkaline Phosphata se Total Protein Albumin Globulin Vitals: Last Vital Signs Temp 98.4 F 06/09/21 07:49 Pulse 63 06/09/21 07:49 Resp 14 06/09/21 07:49 BP 153/72 06/09/21 07:49 Pulse Ox 90 06/09/21 07:49 Discharge Plan Discharge Patient Disposition: Home Condition: Stable Prescriptions: New amiodarone 100 mg tablet 50 mg PO DAILY Qty: 30 RF: 0 meclizine 25 mg tablet 25 mg PO TID PRN (Reason: dizziness) Qty: 14 RF: 0 levofloxacin 500 mg tablet 500 mg PO Q48H 3 Days Qty: 2 RF: 0 Continued ferrous sulfate 325 mg (65 mg iron) tablet 325 mg PO TID@08,12,20 RF: 0 Ultra CoQ10 75 mg capsule 75 mg PO DAILY@2200 RF: 0 docusate sodium 100 mg capsule 100 mg PO PRN PRN (Reason: Constipation) RF: 0 doxazosin 2 mg tablet 2 mg PO BEDTIME@20 RF: 0 amlodipine 10 mg tablet 2.5 mg PO DAILY@12 RF: 0 pantoprazole 40 mg tablet,delayed release (DR/EC) 40 mg PO DAILY@08 Qty: 60 RF: 2 folic acid 1 mg tablet 1 mg PO DAILY@1200 RF: 0 mirtazapine 15 mg tablet 15 mg PO BEDTIME@2000 RF: 0 cyanocobalamin (vitamin B-12) [Vitamin B-12] 1,000 mcg Tablet 1,000 mcg PO QAM RF: 0 Euthyrox 75 mcg tablet 75 mcg PO QAM RF: 0 spironolactone 25 mg tablet 25 mg PO QAM RF: 0 Humalog KwikPen Insulin 100 unit/mL insulin pen See Rx Instructions .ROUTE .COMPLEX RF: 0 Lantus Solostar U-100 Insulin 100 unit/mL (3 mL) insulin pen 15 unit SUBCUT BEDTIME RF: 0 Xarelto 15 mg tablet 15 mg PO QPM RF: 0 sucralfate [Carafate] 1 gram Tablet 1 g PO TID PRN (Reason: STOMACH ACID) RF: 0 atorvastatin 40 mg tablet 40 mg PO BEDTIME@220 RF: 0 Held furosemide 40 mg tablet See Rx Instructions .ROUTE .COMPLEX RF: 0 Hold Instructions: Resume on 06/12/21. Klor-Con M20 20 mEq tablet,ER particles/crystals 10 meq PO BID RF: 0 Hold Instructions: Resume on 06/13/21. Discontinued amiodarone [Pacerone] 200 mg tablet 200 mg PO QAM RF: 0 metoprolol tartrate 25 mg tablet 12.5 mg PO BID RF: 0 Discharge Orders: Discharge Order (Routine); Ordered 06/09/21 Ordered By: Prabhjot Peralta Referrals: Christiano Henry MD [Physician] - 1 week (Please call Thursday to make your appointment. ) Lory Egan MD [Physician] - 2 weeks (Please call Thursday to schedule your appointment. ) Mann Garduno MD [Primary Care Provider] - 4-7 days (Please call Thursday to schedule your appointment. ) Discharge Diet: Diabetic Discharge Activity: Increase activity as tolerated Patient Instructions: Meclizine (By mouth), Amiodarone (By mouth), Levofloxacin (By mouth), Congestive Heart Failure, Urinary Tract Infection in Women (DC), Dizziness (GEN), CHF Stoplight, Opioid Safety Discharge Attestations Time Spent in Discharge Care*: less than 30 min Specific Discharge Activities: educating patient, educating and/or supporting family/caregiver, discussing with pcp/other providers, discussing with raymond mill operator/social workers/dc planners, documenting/other paperwork and evaluating patient/reviewing data Status at Discharge: Cognitive status at discharge: cognitively intact , Behavioral status at discharge: cooperative , Quality Metrics Clinical Quality Measures During this hospital stay, did patient experience: None Coding Level of Care Code Acute Chg FW DC note Exam Detailed Diagnoses Acute kidney injury superimposed on CKD N17.9; N18.9 Acute UTI N39.0 Pneumonia J18.9 CHF (congestive heart failure) I50.32 Heart failure chronicity: chronic Heart failure type: diastolic Diabetes E11.9 Atrial fibrillation I48.91
[2021-06-09] MEDS: folic acid 1 mg Tablet PO (11:22)
[2021-06-09] MEDS: amlodipine 10 mg Tablet 2.5 MG PO (11:22)
[2021-06-09 11:41] VITALS: BP 137/76; PULSE 59; RESP 16; TEMP 37; O2SAT 93
[2021-06-09 11:53] VITALS: PULSE 71; O2SAT 93
--- NOTE | 2021-06-09 13:22 | PC.NURSE ---
PT HAS DONE WELL FOR ME TODAY. NO COMPLAINTS OF PAIN. PT IS READY TO GO HOME. PT WILL DISCHARGE TODAY PER MD. DISCHARGE PAPERWORK WAS GONE OVER WITH PT. ALL QUESTIONS ANSWERED. PTS TELEMETRY AND IV WERE REMOVED. PT TOLERATED WELL. IV CATHETER TIP INTACT. PT SAFELY LEFT HOSPITAL WITH DAUGHTER.
[2021-06-09 13:26] VITALS: PULSE 71; O2SAT 93
--- NOTE | 2021-06-10 11:52 | PC.SOCIAL ---
discharge follow up call made. spoke with patient. she reports some dizziness with standing, but she is taking meclizine which is helping. marketing writer gave patient follow up appointment dates and times. reviewed pts medications, patient taking as prescribed. patient denies further questions or concerns.
== END 2021-06-09 13:26 | disposition home or self-care (01) | DRG 682 ==
LOC: ER 12:06 → MEDSURG 12:33
PROVIDERS: Admitting Provider Internal Medicine; Emergency Provider Emergency Medicine; PCP Family Medicine; Visit Provider Internal Medicine
DX: N17.9 Acute kidney failure, unspecified (principal); J18.9 Pneumonia, unspecified organism; I13.0 Hypertensive heart and chronic kidney disease with heart failure and stage 1 through stage 4 chronic kidney disease, or unspecified chronic kidney disease; I50.32 Chronic diastolic (congestive) heart failure; N39.0 Urinary tract infection, site not specified; E11.22 Type 2 diabetes mellitus with diabetic chronic kidney disease; N18.4 Chronic kidney disease, stage 4 (severe); I48.91 Unspecified atrial fibrillation; Z86.16 Personal history of COVID-19; D63.1 Anemia in chronic kidney disease; E03.9 Hypothyroidism, unspecified; M19.90 Unspecified osteoarthritis, unspecified site; Z98.1 Arthrodesis status; Z87.891 Personal history of nicotine dependence; E86.0 Dehydration; R42 Dizziness and giddiness; J84.10 Pulmonary fibrosis, unspecified; Z79.4 Long term (current) use of insulin; Z79.01 Long term (current) use of anticoagulants
CPT/HCPCS: 36415; 36416; 70450; 71045; 74176; 80053; 81001; 82962; 83605; 83735; 83880; 84145; 84443; 84484; 85025; 87040; 87086; 87426; 93005; 96372; 96374; 96375; 99285; J0696; J1644; J1815 ×2; J1956; J2405; J7040; J8597

== ENCOUNTER → 2021-06-19 12:13 | Outpatient (BNVA) | payer MEDICARE, BC, SELFPAY | PROVIDERS: PCP Family Medicine; Visit Provider Surgery | DX: Z01.812 Encounter for preprocedural laboratory examination (principal); Z20.822 Contact with and (suspected) exposure to COVID-19 | CPT/HCPCS: 87635 ==

== ENCOUNTER 2021-06-26 05:49 | Day surgery (SDC) | payer MEDICARE, BC, SELFPAY ==
[2021-06-25 10:02] VITALS: BMI 29.8
[2021-06-26] MEDS: vancomycin 1,000 MG in sodium chloride 0.9% 250 ML 250 MG IV (06:44)
[2021-06-26 06:50] LABS: Glucose Point of Care 273 mg/dL (70-110)
[2021-06-26] MEDS: sodium chloride 0.9% 1,000 ML 30 ML IV (06:55)
--- NOTE | 2021-06-26 07:00 | W.PM.OPSUD ---
Surgery/Procedure H&P Update DATE OF PROCEDURE: June 26, 2021 DATE H&P PERFORMED: 06/18/21 H&P UPDATE INFORMATION: I have reviewed H&P completed within last 30 days, I have examined patient prior to procedure and No changes to prior documentation PREOP DIAGNOSIS: CKD PLANNED PROCEDURE: Operation Date: 06/26/21 07:00 Proposed Procedures p Laparoscopic Peritoneal Cath Inserti 59176 N18.9(Not Applicable) - Christiano Henry MD
--- NOTE | 2021-06-26 07:04 | ANES.PREANE2 ---
Pre-Anesthetic Assessment Pre-Anesthetic Assessment: Height/Weight: Height 1.57 m Weight 73.936 kg Preop Diagnosis: CKD Proposed Procedure: Operation Date: 06/26/21 07:00 Proposed Procedures p Laparoscopic Peritoneal Cath Inserti [id number] N18.9(Not Applicable) - Christiano Henry MD Was Beta Cammy taken within 24 hours: N/A Was Clonidine taken within 24 hours: N/A Last intake: Intake Last Liquid Date 06/25/21 Last Liquid Time 21:30 Last Solid Date 06/25/21 Last Solid Time 18:00 Social: Social History: No alcohol and No tobacco Exam: Pre-Anes Outpt Exam: alert, oriented x 3 and clear to auscultation bilaterally Airway: Submandibular: WNL Cervical ROM: WNL MP: 2 Dentition: Partials CV/HEM: CV/HEM: Afib, Anemia, CHF and HTN : : Chronic renal failuer GI: GI: GERD Metabolic: Metabolic: Hyperlipidemia and Thyroid Anesthetic Plan: ASA status: 3 Anesthesia: General Risk of > 500 ml blood loss (7ml/kg in children): No Meds/Allergies Current Medications: Current Medications Generic Name Dose Route Start Last Admin Trade Name Freq PRN Reason Stop Dose Admin Sodium Chloride 1,000 mls @ 30 ml s/hr 06/26/21 07:00 06/26/21 06:55 Sodium Chloride 0.9% IV 06/27/21 06:59 30 mls/hr .Q24H NIKO Administration PFSH Anesthesia PFSH: Medical History (Updated 06/22/21 @ 15:08 by Lory Egan MD) Acute kidney injury superimposed on CKD Altered mental status Anemia Atrial fibrillation CHF (congestive heart failure) CKD (chronic kidney disease) COVID-19 resolved Diabetes GERD (gastroesophageal reflux disease) HTN (hypertension) Hypothyroidism Meningioma Osteoarthritis (arthritis due to wear and tear of joints) Pneumonia Surgical History History of ankle surgery S/P cataract extraction S/P cervical spinal fusion S/P tonsillectomy Status post tubal ligation Family History Mother Hypertension Grandmother Hypertension MATERNAL Other Cancer Diabetes Social History Quit status (tobacco): has quit using tobacco Year quit tobacco: 1977 [id number] Second hand smoke exposure: Yes Smoking risk assessment/counseling performed?: Yes Alcohol intake: never Caregiver/support person: Yes Lives independently: Yes Household members: spouse and children Housing: House Marital status: Current occupational status: retired Pets and animals: Yes History of recent travel: No Current gender identity: Female Data Anesthesia Other Labs: Laboratory Results - last 48 hr 06/26/21 06:33 POC Glucose 273 H Cardiac Studies: No Data to Display
--- NOTE | 2021-06-26 07:58 | PM.OP ---
Operative Report Date of procedure: June 26, 2021 Pre-op Diagnosis: Chronic kidney disease for planned peritoneal dialysis Post-op diagnosis: same Procedure Done: Laparoscopic placement of peritoneal dialysis catheter Pathology: none sent Surgeon: Christiano Henry Anesthesia: General Condition: stable Procedure: The patient was taken to the operating room and intubated under general anesthesia after IV antibiotic had been administered. The abdomen was prepped and draped in a sterile manner. Using 15 blade a 1 cm incision was made in the left upper quadrant and a Veress needle introduced to create 15 mm of pneumoperitoneum. Using Optiview technique, a 5 mm port was placed and a 5 mm 30? scope was introduced. Another 5 mm port was placed in the left lower quadrant at the level of the umbilicus in the midclavicular line. The pigtail peritoneal dialysis catheter was placed on the abdominal wall and the position marked, an introducer needle was passed through the abdominal wall to the right of the midline inferior to the umbilicus, guidewire passed through the introducer needle, the needle was removed and a dilator sheath was placed over the guidewire and inner dilator and guidewire was removed. The pigtail catheter was introduced as the peel-away sheath was removed with the tip of the catheter in the pelvis and the cuff within the rectus muscle. The catheter was tunneled proximally to exit in the right upper quadrant. A subcutaneous pocket was created. The catheter was attached to a saline bag and there was good inflow and outflow noted. The ports were removed under direct visualization and there was no bleeding from the port sites. The skin at the 5 mm port sites were closed using 4-0 Monocryl and Dermabond. Sterile dressings were applied at the catheter site. The patient was intubated and transferred to recovery room in stable condition.
[2021-06-26 08:05] VITALS: BP 154/63; PULSE 64; RESP 8; TEMP 36.2; O2SAT 97
[2021-06-26 08:10] VITALS: BP 149/83; PULSE 63; RESP 15; O2SAT 100
[2021-06-26 08:15] VITALS: BP 134/97; PULSE 68; RESP 17; TEMP 36.5; O2SAT 95
[2021-06-26 08:20] VITALS: BP 136/76; PULSE 68; RESP 18; TEMP 36.5; O2SAT 96
[2021-06-26 08:39] VITALS: BP 135/77; PULSE 67; RESP 18; TEMP 36.5; O2SAT 95
--- NOTE | 2021-06-26 15:14 | ANE.PACU2 ---
Inpatient post-anesthesia follow up: Airway intact: Yes Vital signs: Temperature 97.7 F Pulse Rate 67 Respiratory Rate 18 Blood Pressure 135/77 Pulse Oximetry 95 Oxygen Delivery Me thod Room Air Oxygen Flow Rate 8 Fraction of Inspir ed Oxygen Hydration adequate: Yes Nausea and vomiting: No Pain level: 2 Mental status: Baseline
== END 2021-06-26 08:57 | disposition home or self-care (01) ==
PROVIDERS: PCP Family Medicine; Visit Provider Surgery
PROC: 0WHG43Z Insertion of Infusion Device into Peritoneal Cavity, Percutaneous Endoscopic Approach (ICD-10-PCS; CPT 49324; principal; 2021-06-26 07:00)
DX: E11.22 Type 2 diabetes mellitus with diabetic chronic kidney disease (principal); I13.0 Hypertensive heart and chronic kidney disease with heart failure and stage 1 through stage 4 chronic kidney disease, or unspecified chronic kidney disease; N18.9 Chronic kidney disease, unspecified; I50.9 Heart failure, unspecified; I48.91 Unspecified atrial fibrillation; K21.9 Gastro-esophageal reflux disease without esophagitis; E78.5 Hyperlipidemia, unspecified; Z86.16 Personal history of COVID-19; E03.9 Hypothyroidism, unspecified; M19.90 Unspecified osteoarthritis, unspecified site; Z82.49 Family history of ischemic heart disease and other diseases of the circulatory system; Z87.891 Personal history of nicotine dependence; Z79.4 Long term (current) use of insulin
CPT/HCPCS: 49324; 36416; 82962; C1750; J1100; J2405; J2704; J2710; J3010; J3370; J3490; J7030; J7050

== ENCOUNTER 2021-07-29 14:19 | Outpatient (RCR) | payer MEDICARE, BC, SELFPAY | END 2021-08-20 23:59 | disposition home or self-care (01) | LOC: PULRHB 14:19 | PROVIDERS: PCP Family Medicine; Visit Provider Internal Medicine Pulmonary Disease | DX: J84.9 Interstitial pulmonary disease, unspecified (principal) | CPT/HCPCS: 94618 ==

== ENCOUNTER 2021-09-11 09:19 | Outpatient (RCR) | payer MEDICARE, BC, SELFPAY | END 2021-09-20 23:59 | disposition home or self-care (01) | LOC: SPT 09:19 | PROVIDERS: PCP Family Medicine; Referring Provider Family Medicine; Visit Provider Family Medicine | DX: R53.1 Weakness (principal); N18.5 Chronic kidney disease, stage 5 | CPT/HCPCS: 97161 ==

== ENCOUNTER 2021-09-21 06:00 | Outpatient (RCR) | payer MEDICARE, BC, SELFPAY | END 2021-10-21 23:59 | disposition home or self-care (01) | LOC: SPT 06:00 | PROVIDERS: PCP Family Medicine; Visit Provider Family Medicine | DX: M62.81 Muscle weakness (generalized) (principal); R26.89 Other abnormalities of gait and mobility | CPT/HCPCS: 97110 ==

== ENCOUNTER 2021-10-22 06:00 | Outpatient (RCR) | payer MEDICARE, BC, SELFPAY | END 2021-11-18 23:59 | disposition home or self-care (01) | LOC: SPT 06:00 | PROVIDERS: PCP Family Medicine; Visit Provider Family Medicine | DX: M62.81 Muscle weakness (generalized) (principal); R26.89 Other abnormalities of gait and mobility | CPT/HCPCS: 97110 ==

== ENCOUNTER 2021-11-19 06:00 | Outpatient (RCR) | payer MEDICARE, BC, SELFPAY | END 2021-12-12 23:59 | disposition home or self-care (01) | LOC: SPT 06:00 | PROVIDERS: PCP Family Medicine; Visit Provider Family Medicine | DX: M62.81 Muscle weakness (generalized) (principal); R26.89 Other abnormalities of gait and mobility | CPT/HCPCS: 97110 ==

== ENCOUNTER → 2021-12-16 15:23 | Outpatient (BNVA) | payer MEDICARE, BC, SELFPAY | PROVIDERS: PCP Family Medicine; Visit Provider Internal Medicine Pulmonary Disease | DX: J84.9 Interstitial pulmonary disease, unspecified (principal); I50.32 Chronic diastolic (congestive) heart failure; J90 Pleural effusion, not elsewhere classified; Z09 Encounter for follow-up examination after completed treatment for conditions other than malignant neoplasm; Z87.891 Personal history of nicotine dependence; Z86.16 Personal history of COVID-19; K21.9 Gastro-esophageal reflux disease without esophagitis; I10 Essential (primary) hypertension; E11.8 Type 2 diabetes mellitus with unspecified complications | CPT/HCPCS: 99214 ==

== ENCOUNTER → 2022-01-20 10:44 | Outpatient (BNVA) | payer MEDICARE, BC, SELFPAY | PROVIDERS: PCP Family Medicine; Visit Provider Internal Medicine Cardiovascular Disease | DX: I48.0 Paroxysmal atrial fibrillation (principal); I13.2 Hypertensive heart and chronic kidney disease with heart failure and with stage 5 chronic kidney disease, or end stage renal disease; E11.22 Type 2 diabetes mellitus with diabetic chronic kidney disease; N18.6 End stage renal disease; I50.32 Chronic diastolic (congestive) heart failure; Z99.2 Dependence on renal dialysis; Z79.4 Long term (current) use of insulin; Z87.891 Personal history of nicotine dependence; D64.9 Anemia, unspecified | CPT/HCPCS: 99214 ==

== ENCOUNTER 2022-01-29 13:05 | Outpatient (CLI) | payer MEDICARE, BC, SELFPAY ==
--- NOTE | 2022-01-29 13:14 | MM_ITS ---
WS: [id number] BILATERAL 3D TOMOSYNTHESIS DIGITAL SCREENING MAMMOGRAPHY WITH CAD CLINICAL INFORMATION: SCREENING HISTORY: Screening mammogram. No current complaints. COMPARISON: TECHNIQUE: Bilateral CC and MLO views. FINDINGS: Scattered fibroglandular densities bilaterally. A few punctate and lucent centered calcifications. Va scular calcification. Stable dense breast tissue upper outer RIGHT breast. No suspicious focal mass, asymmetry, calcifications, or architectural distortion. No evidence of malignancy. MM/[place] [id number] IMPRESSION: BI-RADS: 2-Benign FOLLOW UP: 1 Year Follow-up Recommend return to annual screening mammography.
== END 2022-01-29 13:06 | disposition home or self-care (01) ==
LOC: RAD 13:08
PROVIDERS: PCP Family Medicine; Visit Provider Family Medicine
DX: Z12.31 Encounter for screening mammogram for malignant neoplasm of breast (principal)
CPT/HCPCS: 77063; 77067

== ENCOUNTER → 2022-06-18 10:49 | Outpatient (BNVA) | payer MEDICARE, BC, SELFPAY | PROVIDERS: PCP Family Medicine; Visit Provider Internal Medicine Pulmonary Disease | DX: R06.02 Shortness of breath (principal); J84.9 Interstitial pulmonary disease, unspecified; J90 Pleural effusion, not elsewhere classified; I50.32 Chronic diastolic (congestive) heart failure; Z86.16 Personal history of COVID-19; Z87.891 Personal history of nicotine dependence; I48.20 Chronic atrial fibrillation, unspecified; Z79.01 Long term (current) use of anticoagulants | CPT/HCPCS: 99214 ==

== ENCOUNTER → 2022-07-17 10:40 | Outpatient (BNVA) | payer MEDICARE, BC, SELFPAY | PROVIDERS: PCP Family Medicine; Visit Provider Family Medicine | DX: R30.0 Dysuria (principal); N39.0 Urinary tract infection, site not specified | CPT/HCPCS: 81000; 87077; 87086; 87184 ==

== ENCOUNTER → 2022-07-28 11:10 | Outpatient (BNVA) | payer MEDICARE, BC, SELFPAY | PROVIDERS: PCP Family Medicine; Visit Provider Internal Medicine Cardiovascular Disease | DX: I48.0 Paroxysmal atrial fibrillation (principal); Z79.01 Long term (current) use of anticoagulants; I13.2 Hypertensive heart and chronic kidney disease with heart failure and with stage 5 chronic kidney disease, or end stage renal disease; E11.22 Type 2 diabetes mellitus with diabetic chronic kidney disease; N18.6 End stage renal disease; I50.32 Chronic diastolic (congestive) heart failure; Z99.2 Dependence on renal dialysis; Z87.891 Personal history of nicotine dependence; Z79.4 Long term (current) use of insulin | CPT/HCPCS: 99214 ==

== ENCOUNTER → 2022-10-23 18:30 | Outpatient (BNVA) | payer MEDICARE, SELFPAY | PROVIDERS: PCP Family Medicine; Visit Provider Registered Nurse Neonatal Intensive Care | DX: M79.671 Pain in right foot (principal) | CPT/HCPCS: 73630 ==

== ENCOUNTER → 2022-10-27 15:41 | Outpatient (BNVA) | payer MEDICARE, SELFPAY | PROVIDERS: PCP Family Medicine; Visit Provider Podiatrist Foot & Ankle Surgery | DX: S99.921A Unspecified injury of right foot, initial encounter (principal); M77.9 Enthesopathy, unspecified; M76.821 Posterior tibial tendinitis, right leg; W19.XXXA Unspecified fall, initial encounter | CPT/HCPCS: 73630; 99204 ==

== ENCOUNTER → 2022-11-17 14:32 | Outpatient (BNVA) | payer MEDICARE, SELFPAY | PROVIDERS: PCP Family Medicine; Visit Provider Podiatrist Foot & Ankle Surgery | DX: S99.921A Unspecified injury of right foot, initial encounter (principal); X58.XXXA Exposure to other specified factors, initial encounter; M76.821 Posterior tibial tendinitis, right leg; M77.9 Enthesopathy, unspecified | CPT/HCPCS: 99213 ==

== ENCOUNTER 2022-12-04 06:00 | Outpatient (RCR) | payer MEDICARE, SELFPAY | END 2022-12-19 23:59 | disposition home or self-care (01) | LOC: SPT 06:00 | PROVIDERS: PCP Family Medicine; Visit Provider Podiatrist Foot & Ankle Surgery | DX: M76.821 Posterior tibial tendinitis, right leg (principal) | CPT/HCPCS: 97110; 97161; 97530 ==

== ENCOUNTER 2022-12-20 06:00 | Outpatient (RCR) | payer MEDICARE, SELFPAY | END 2023-01-05 23:59 | disposition home or self-care (01) | LOC: SPT 06:00 | PROVIDERS: PCP Family Medicine; Visit Provider Podiatrist Foot & Ankle Surgery | DX: M76.821 Posterior tibial tendinitis, right leg (principal) | CPT/HCPCS: 97110; 97530 ==

== ENCOUNTER → 2023-01-02 11:21 | Outpatient (BNVA) | payer MEDICARE, SELFPAY | PROVIDERS: PCP Family Medicine; Visit Provider Podiatrist Foot & Ankle Surgery | DX: M79.671 Pain in right foot (principal) | CPT/HCPCS: 99213 ==

== ENCOUNTER → 2023-04-27 10:52 | Outpatient (BNVA) | payer MEDICARE, SELFPAY | PROVIDERS: PCP Family Medicine; Visit Provider Internal Medicine Cardiovascular Disease | DX: I48.0 Paroxysmal atrial fibrillation (principal); I13.2 Hypertensive heart and chronic kidney disease with heart failure and with stage 5 chronic kidney disease, or end stage renal disease; E11.22 Type 2 diabetes mellitus with diabetic chronic kidney disease; Z79.4 Long term (current) use of insulin; I50.32 Chronic diastolic (congestive) heart failure; N18.6 End stage renal disease; Z99.2 Dependence on renal dialysis; Z79.01 Long term (current) use of anticoagulants | CPT/HCPCS: 99214 ==

== ENCOUNTER → 2023-06-11 11:14 | Outpatient (BNVA) | payer MEDICARE, SELFPAY | PROVIDERS: PCP Family Medicine; Visit Provider Family Medicine | DX: Z51.81 Encounter for therapeutic drug level monitoring (principal); E03.9 Hypothyroidism, unspecified; E55.9 Vitamin D deficiency, unspecified; E11.9 Type 2 diabetes mellitus without complications; R51.9 Headache, unspecified; I48.91 Unspecified atrial fibrillation; E87.1 Hypo-osmolality and hyponatremia; R41.0 Disorientation, unspecified | CPT/HCPCS: 80053; 82306; 83036; 84439; 84443; 85025; 85651 ==

== ENCOUNTER 2023-06-19 12:17 | Outpatient (CLI) | payer MEDICARE, SELFPAY ==
--- NOTE | 2023-06-19 12:37 | XR_ITS ---
WS: [id number] ABDOMEN 3 VIEWS CLINICAL INFORMATION: SUPINE SITTING AND STANDING COMPARISON: None. FINDINGS: Peritoneal dialysis catheter with tip coiled in the RIGHT lower pelvis. No evidence of discontinuity in the dialysis tubing. No significant kinking of the catheter. Osteopenia. Mild lumbar curve. Moderate degenerative arthritis both hips. Pelvic phleboliths. Unremar kable bowel gas pattern. Vascular calcification. IMPRESSION: 1. RIGHT lower quadrant peritoneal dialysis catheter with tip in the RIGHT lower pelvis. No evidence of significant kinking or tube discontinuity. 2. No other suspicious findings.
== END 2023-06-19 12:18 | disposition home or self-care (01) ==
PROVIDERS: PCP Family Medicine; Visit Provider Internal Medicine Nephrology
DX: T85.691A Other mechanical complication of intraperitoneal dialysis catheter, initial encounter (principal); Y82.8 Other medical devices associated with adverse incidents; N18.6 End stage renal disease; Z99.2 Dependence on renal dialysis
CPT/HCPCS: 74021

== ENCOUNTER → 2023-09-12 14:32 | Outpatient (BNVA) | payer MEDICARE, SELFPAY | PROVIDERS: PCP Family Medicine; Visit Provider Family Medicine | DX: R50.9 Fever, unspecified (principal); R52 Pain, unspecified; U07.1 COVID-19 | CPT/HCPCS: 87400; 87426 ==

== ENCOUNTER 2023-11-27 12:30 | Inpatient (IN) | payer MEDICARE, SELFPAY ==
[2023-11-27] VITALS (8 sets, daily range): BP systolic 140–169; BP diastolic 56–81; PULSE 67–81; RESP 17–20; TEMP 36.7–37.1; O2SAT 94–99; BMI 35.3
--- NOTE | 2023-11-27 12:35 | XR_ITS ---
WS: [id number] Portable AP upright chest, 11/27/2023 Clinical Data: sob Comparison: Portable chest, 06/07/2021 Findings: The heart is enlarged. The pulmonary vascularity is increased. No nodules, masses or effusi ons are seen. There is no pneumothorax. No definite pneumonia is present. The aortic arch and descend ing thoracic aorta show calcification and tortuosity. Impression: 1. Cardiomegaly with increased pulmonary vascularity. 2. Atherosclerosis.
--- NOTE | 2023-11-27 12:51 | ED_ITS ---
HPI - URI/Sore Throat 2 General: Chief Complaint: Upper Respiratory Infection Stated Complaint: sent by dr Garduno Time Seen by Provider: 11/27/23 12:46 Source: patient Mode of arrival: ambulatory Limitations: no limitations History of Present Illness: 83-year-old female who has a history of CHF also end-stage renal disease does home dialysis at night states she woke up this morning not feeling well she had a low-grade fever shortness of breath and worsening cough. She was seen at her clinic's office and was sent here due to concerns of pneumonia she denies any chest pain denies any vomiting or diarrhea Associated symptoms: Deny abdominal pain, chills, chest pain, diarrhea, fever(s), headache(s), nausea or vomiting Review of Systems 2 Const: Denies: fever(s), chills, body aches or change in appetite ENMT: Denies: throat pain or dental pain Card: Denies: chest pain Resp: Reports: dyspnea, non-productive cough and wheezing GI: Denies: abdominal pain, nausea, vomiting or diarrhea Musc: Denies: neck pain or back pain Skin/Breast: Denies: rash Neuro: Denies: headache(s) PFSH ED 2 PFSH: Medical History Pneumonia due to COVID-19 virus ESRD on peritoneal dialysis Atrial fibrillation Acute kidney injury superimposed on CKD Pneumonia Osteoarthritis (arthritis due to wear and tear of joints) Altered mental status Meningioma Anemia COVID-19 resolved Hypothyroidism GERD (gastroesophageal reflux disease) HTN (hypertension) CHF (congestive heart failure) CKD (chronic kidney disease) Diabetes Surgical History Peritoneal dialysis catheter in situ (06/26/21) History of ankle surgery S/P tonsillectomy Status post tubal ligation S/P cataract extraction S/P cervical spinal fusion Family History Mother Hypertension Grandmother Hypertension MATERNAL Other Cancer Diabetes Social History Smoking and tobacco/nicotine status: former use of tobacco/nicotine Quit status (tobacco/nicotine): has quit using Year quit tobacco: 1978 [id number] Second hand smoke exposure: Yes Alcohol intake: never Substance/Drug Use: never Caregiver/support person: Yes Lives independently: Yes Household members: spouse and children Housing: House Marital status: Current occupational status: retired Pets and animals: Yes Do you think of yourself as: Straight/Heterosexual Current gender identity: Female Physical Exam 2 Const: COMMON NORMALS: patient oriented x3 GENERAL APPEARANCE: ill appearing HENMT: COMMON NORMALS: normocephalic and atraumatic HEAD & SCALP: n ormocephalic and atraumatic Eye: COMMON NORMALS: Equal, round and reactive pupils present and EOMs intact bilaterally PUPIL: Yes Equal, round and reactive pupils present Neck/C-Spine: COMMON NORMALS: full ROM and supple Chest: COMMONS NORMALS: normal inspection of the chest and normal palpation of entire chest wall Resp: COMMON NORMALS: No retractions EFFORT & INSPECTION: Yes labored A USCULTATION: rales Cardio: COMMON NORMALS: regular rate, regular rhythm and No murmurs present (Cardio) RATE: regular rate RHYTHM: regular rhythm Extremity: COMMON NORMALS: normal to inspection and full ROM Neuro: COMMON NORMALS: patient oriented x3, moves all extremities and no focal motor deficits Psych: COMMON NORMALS: mental status grossly normal, Normal thought process present and cooperative THOUGHT PROCESS: Normal thought process present Skin: COMMON NORMALS: no rashes or lesions noted and no wounds GENERAL SKIN EXAM: no rashes or lesions noted Course 2 Vital Signs: Vital signs: Vital Signs Temperature 98.1 F 11/27/23 12:34 Pulse Rate 67 11/27/23 12:39 Respiratory Rate 20 H 11/27/23 12:34 Blood Pressure 159/56 11/27/23 12:39 Pulse Oximetry 96 11/27/23 12:39 Oxygen Delivery Me thod Nasal Cannula 11/27/23 12:39 MDM - URI/Sore Throat Medical Decision Making Patient presents here with cough fever increased dyspnea she is requiring 2 L of oxygen here she is on oxygen at baseline x-ray shows likely bilateral pneumonia versus pulmonary congestion her BNP is at her baseline did get blood cultures IV antibiotics spoke to the hospitalist will admit. Medical Records I reviewed the patient's medical records. Lab Data I reviewed the patient's lab results. 11/27/23 13:06 11/27/23 13:08 Laboratory Results WBC 14.04 10^3/uL (3.29-11.43) H 11/27/23 13:06 RBC 3.51 10^6/uL (3.85-5.65) L 11/27/23 13:06 Hgb 11.10 g/dL (11.27-16.99) L 11/27/23 13:06 Hct 33.4 % (36-47) L 11/27/23 13:06 MCV 95.2 fl (85-98) 11/27/23 13:06 MCH 31.6 pg (27-33) 11/27/23 13:06 MCHC 33.2 g/dL (30-55) 11/27/23 13:06 RDW 12.4 % (12.1-15.1) 11/27/23 13:06 Plt Count 259 10^3/cmm (157-399) 11/27/23 13:06 MPV 10.1 fL (7.4-10.4) 11/27/23 13:06 Neut % (Auto) 81.3 % 11/27/23 13:06 Lymph % (Auto) 12.0 % 11/27/23 13:06 [place] % (Auto) 5.1 % 11/27/23 13:06 Eos % (Auto) 0.4 % 11/27/23 13:06 Baso % (Auto) 0.4 % 11/27/23 13:06 Neut # (Auto) 11.44 10^3/uL (1.8-7.7) H 11/27/23 13:06 Lymph # (Auto) 1.7 10^3/uL (0.8-4.8) 11/27/23 13:06 [place] # (Auto) 0.7 10^3/uL (0.2-0.9) 11/27/23 13:06 Eos # (Auto) 0.1 10^3/uL (0.0-0.8) 11/27/23 13:06 Baso # (Auto) 0.1 10^3/uL (0.0-0.1) 11/27/23 13:06 Nucleated RBC % (auto) 0 % 11/27/23 13:06 Nucleated RBCs # 0.0 /100WBC 11/27/23 13:06 Specimen Type Arterial 11/27/23 13:41 Sample Site Brachial, left 11/27/23 13:41 ABG pH 7.48 (7.35-7.45) H 11/27/23 13:41 ABG pCO2 39.3 mmHg (35-45) 11/27/23 13:41 ABG pO2 75.6 mmHg (80.0-100.0) L 11/27/23 13:41 ABG PO2/FiO2 Ratio 0 11/27/23 13:41 ABG HCO3 29.0 mmol/L (22-26) H 11/27/23 13:41 ABG Base Excess 5.1 mmol/L (-2.0-2.0) H 11/27/23 13:41 Jorge Test Pos 11/27/23 13:41 Hematocrit 32.8 % (37-47) L 11/27/23 13:41 Hgb O2 Saturation 94.6 % (95-100) L 11/27/23 13:41 Carboxyhemoglobin 1.4 %THgb (0.4-20.1) 11/27/23 13:41 Methemoglobin 0.3 % (0.4-1.5) L 11/27/23 13:41 Total Hemoglobin 10.7 g/dL (12-16) L 11/27/23 13:41 O2 Delivery Device Nc 11/27/23 13:41 O2 Liters/Min 2.0 % 11/27/23 13:41 FiO2 28.0 % 11/27/23 13:41 Obstetrics Tech ID Cak 11/27/23 13:41 Sodium 139 mmol/L (136-145) 11/27/23 13:08 Potassium 3.7 mmol/L (3.5-5.1) 11/27/23 13:08 Chloride 98 mmol/L (98-107) 11/27/23 13:08 Carbon Dioxide 27 mmol/L (22-29) 11/27/23 13:08 Anion Gap 17.7 (5-19) 11/27/23 13:08 BUN 40 mg/dL (8-23) H 11/27/23 13:08 Creatinine 3.0 mg/dL (0.5-0.9) H 11/27/23 13:08 GFR Calculation Not Reportable 11/27/23 13:08 Glucose 136 mg/dL (65-115) H 11/27/23 13:08 Calculated Osmolality 300 mOsm/kg (285-295) H 11/27/23 13:08 Calcium 9.2 mg/dL (8.5-10.5) 11/27/23 13:08 Total Bilirubin 0.7 mg/dL (0.15-1.2) 11/27/23 13:08 AST 14 U/L (0-32) 11/27/23 13:08 ALT 17 U/L (0-33) 11/27/23 13:08 Alkaline Phosphatase 96 U/L (35-105) 11/27/23 13:08 NT-Pro-B Natriuret Pep 2210 pg/mL (0-450) H 11/27/23 13:08 Total Protein 7.0 g/dL (6.6-8.7) 11/27/23 13:08 Albumin 3.7 g/dL (3.5-5.2) 11/27/23 13:08 Globulin 3.3 g/dL (1.3-4.6) 11/27/23 13:08 Influenza Type A Ag negative (Negative) 11/27/23 13:06 Influenza Type B Ag negative (Negative) 11/27/23 13:06 SARS-CoV-2 Ag (Rapid) negative (Negative) 11/27/23 13:06 All radiology interpretation(s) finalized by discharge EKG Data EKG 1: I personally reviewed and interpreted this EKG as follows: EKG interpretation date: 11/27/23 EKG interpretation time: 12:52 Interpretation: nsr hr [address] or t wave abnormalities qrs 93 qtc 435 Discharge Plan Discharge Patient Disposition: Admitted As Inpatient Clinical Impression: Community acquired pneumonia, Acute respiratory failure with hypoxia Condition: Stable Prescriptions: No Action docusate sodium 100 mg capsule 100 mg PO QPM Eliquis 5 mg tablet 2.5 mg PO BID Qty: 90 3RF Rx Instructions: 340 B (DME) Contour Next Test Strips Strip See Rx Instructions .ROUTE .COMPLEX Qty: 300 6RF Dose Instruction: USE 1 STRIP TO CHECK GLUCOSE THREE TIMES DAILY Rx Instructions: USE 1 STRIP TO CHECK GLUCOSE THREE TIMES DAILY (DME) blood-glucose meter [OneTouch Ultra2 Meter] Misc See Rx Instructions .Route Qty: 1 0RF Rx Instructions: As directed (DME) lancets [OneTouch Delica Plus Lancet] 33 gauge misc See Rx Instructions .Route Qty: 100 12RF Rx Instructions: As directed (DME) pen needle, diabetic [BD Ultra-Fine Short Pen Needle] 31 gauge x 5/16 needle See Rx Instructions .ROUTE .COMPLEX Qty: 100 6RF Dose Instruction: USE TO INJECT INSULIN 2-3 TIMES A DAY Rx Instructions: USE TO INJECT INSULIN 2-3 TIMES A DAY (DME) OneTouch Ultra Test Strip See Rx Instructions .ROUTE .COMPLEX Qty: 200 3RF Dose Instruction: USE TO CHECK GLUCOSE THREE TIMES DAILY Rx Instructions: USE TO CHECK GLUCOSE THREE TIMES DAILY amlodipine 5 mg tablet 5 mg PO DAILY gentamicin 0.1 % cream See Rx Instructions .ROUTE .COMPLEX Rx Instructions: APPLY TO EXIT SITE DAILY levofloxacin 500 mg tablet 500 mg PO DAILY Rx Instructions: for 5 days (rx filled 11/27/23 not picked up) CoQ-10 100 mg Capsule 100 mg PO BEDTIME losartan 50 mg tablet 50 mg PO QAM RenaPlex-D 800 mcg-12.5 mg -2,000 unit tablet 1 tab PO DAILY furosemide 40 mg tablet 80 mg PO BID atorvastatin 40 mg tablet 40 mg PO QPM levothyroxine 75 mcg tablet 75 mcg PO QAM Rx Instructions: 30 MINUTES BEFORE BREAKFAST WITH WATER ONLY mirtazapine 15 mg tablet 15 mg PO BEDTIME doxazosin 2 mg tablet 2 mg PO BEDTIME amiodarone 100 mg tablet 50 mg PO BID Lantus Solostar U-100 Insulin 100 unit/mL (3 mL) insulin pen See Rx Instructions .ROUTE .COMPLEX Rx Instructions: 35 unit subcutaneously in the am and ss 0-15 units at bedtime potassium chloride 20 mEq tablet extended release 10 meq PO BEDTIME Referrals: Mann Garduno MD [Primary Care Provider] - Patient Instructions: Opioid Safety, Pain Management Coding Level of Care Code ED Machine Shop Repair Technician for Maria G Grissom
--- NOTE | 2023-11-27 12:52 | ECG_ITS ---
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 Measurements Intervals Moon Rate: 71 P: -9 WY: 165 QRS: 62 QRSD: 93 T: 90 QT: 413 QTc: 450 Interpretive Statements SINUS RHYTHM WITH OCCASIONAL SUPRAVENTRICULAR PREMATURE COMPLEXES LOW QRS VOLTAGE IN PRECORDIAL LEADS [QRS DEFLECTION < 1.0 mV IN CHEST LEADS] SEPTAL MYOCARDIAL INFARCTION , PROBABLY OLD [40+ ms Q WAVE IN V1/V2] Compared to ECG 06/08/2021 21:15:24 Low QRS voltage now present Myocardial infarct finding now present Intraventricular conduction delay no longer present Prolonged QT interval no longer present Electronically Signed On 11-27-2023 17:43:02 ARMED CUSTOM PROTECTION OFFICER by Liliane Almendarez M.D. [id number]
[2023-11-27 13:32] LABS: Basophils # 0.1 10^3/uL (0.0-0.1); Basophils % 0.4 %; Eosinophils # 0.1 10^3/uL (0.0-0.8); Eosinophils % 0.4 %; Hematocrit 33.4 % (36-47); Lymphocytes # 1.7 10^3/uL (0.8-4.8); Mean Corpuscular HGB Conc 33.2 g/dL (30-55); Mean Corpuscular Hemoglobin 31.6 pg (27-33); Mean Corpuscular Volume 95.2 fl (85-98); Mean Platelet Volume 10.1 fL (7.4-10.4); Monocytes # 0.7 10^3/uL (0.2-0.9); Monocytes % 5.1 %; Neutrophils # 11.44 10^3/uL (1.8-7.7); Neutrophils % 81.3 %; Nucleated Red Blood Cells % 0 %; Platelet Count 259 10^3/cmm (157-399); Red Blood Count 3.51 10^6/uL (3.85-5.65); Red Cell Distribution Width 12.4 % (12.1-15.1); White Blood Count 14.04 10^3/uL (3.29-11.43)
[2023-11-27 13:44] LABS: Influenza A by IFA negative (Negative); Influenza B by IFA negative (Negative); SARS Covid-2 Antigen negative (Negative)
[2023-11-27 13:52] LABS: ABG PCO2 39.3 mmHg (35-45); ABG PH Result 7.48 (7.35-7.45); Arterial Blood Gas Hematocrit 32.8 % (37-47); Base Excess ABG 5.1 mmol/L (-2.0-2.0); Blood Gas Allen Test Pos; Blood Gas Operator Identificat CAK; Blood Gas Sample Site Brachial, left; Blood Gas Sample Type Arterial; Carboxyhemoglobin 1.4 %THgb (0.4-20.1); HGB O2 Sat 94.6 % (95-100); Methemoglobin 0.3 % (0.4-1.5); Oxygen Device NC; PO2 ABG 75.6 mmHg (80.0-100.0); PO2 FiO2 Ratio Arterial Blood 0; Total Hemoglobin 10.7 g/dL (12-16)
[2023-11-27 14:01] LABS: Alanine Aminotransferase 17 U/L (0-33); Albumin Level 3.7 g/dL (3.5-5.2); Alkaline Phosphatase 96 U/L (35-105); Anion Gap 17.7 (5-19); Aspartate Amino Transferase 14 U/L (0-32); Blood Urea Nitrogen 40 mg/dL (8-23); Calcium 9.2 mg/dL (8.5-10.5); Carbon Dioxide 27 mmol/L (22-29); Chloride 98 mmol/L (98-107); Creatinine Clr Calc Pharmacy 14.6786; Globulin 3.3 g/dL (1.3-4.6); Glucose 136 mg/dL (65-115); NT Pro B Type Natriuretic Pept 2210 pg/mL (0-450); Osmolality Calculated 300 mOsm/kg (285-295); Potassium 3.7 mmol/L (3.5-5.1); Sodium 139 mmol/L (136-145); Total Bilirubin 0.7 mg/dL (0.15-1.2)
[2023-11-27] MEDS: cefTRIAXone 1,000 MG in sodium chloride 0.9% (plus) 50 ML 100 MG IV (14:06)
--- NOTE | 2023-11-27 14:26 | PC.PHAR ---
pts verified pts medications-pts states the pt takes lasix 40mg takes 2 tabs (=80mg) bid rx filled on 10/22/23 30d/s for 3 tabs (120mg) bid prn-pts states the pt uses lantus solostar 35 units in the am and ss 0-15 units hs rx filled 08/10/23 85d/s 35 units bid-ext med history shows levaquin 500mg daily filled 11/27/23 5d/s has not been picked up or started taking -pts states the pt is no longer taking pantoprazole 40mg daily filled 10/13/23 90d/s-pts states the pt takes kcl 20meq takes 1/2 tab (10meq) hs rx filled 11/26/23 90d/s 10meq tid-pts states the pts spironolactone 25mg daily was dced ext shows last filled 07/26/23 30d/s-notes are made in the pharmacy comments
[2023-11-27] MEDS: azithromycin 500 MG in sodium chloride 0.9% 250 ML 250 MG IV (14:48)
--- NOTE | 2023-11-27 15:24 | P.HP_ITS ---
Providers/Chief Complaint 2 Primary Care Provider: Mann Garduno MD Chief Complaint: sent by dr Garduno History of Present Illness Luiza Cooper is a 83 year old female with past medical history of ESRD on peritoneal dialysis, chronic A-fib on Eliquis, hypothyroidism, obesity, insulin- dependent type 2 diabetes mellitus presents to the ER today from her primary care's office for hypoxia. Patient states she was at her baseline health till last night but today morning she when she woke up she was feeling sick, tired and blood pressure on her home blood pressure machine was low along with hypoxia down to the low 70s so she presented to the primary care's office. Primary care's office she was drowsy and tired appearing and was hypoxic and placed on 2 L of oxygen supplementation to maintain saturation over 90% and sent over to the hospital. She denies any sick contacts. Fever at home was up to 100 Fahrenheit. Denies any nausea, vomiting, headache, changes in bowel habits, changes in peritoneal dialysis recently. Examination patient is awake and alert, sitting comfortably in bed without tachycardia saturating more than 95% on 2 L of oxygen supplementation Review of Systems 2 General: Reports: 10 or more systems reviewed and unremarkable except in HPI and below Const: Denies: fever(s), chills, body aches, change in appetite, change in weight, malaise, night sweats, diaphoresis, change in sleep pattern, daytime sleepiness or snoring Eyes: Denies: change in vision, blurry vision, photophobia, eye discomfort or eye discharge ENMT: Denies: throat pain, enlarged tonsils, hoarseness, mouth pain, oral sores, dry mouth, tinnitus, nasal congestion or post nasal drip Card: Denies: chest pain, palpitations, irregular heart rhythm, edema, swelling of feet/ankles, lightheadedness, syncope, pre-syncope, dyspnea on exertion, orthopnea, leg pain with exertion or acrocyanosis Resp: Denies: dyspnea, productive cough, non-productive cough, wheezing, stridor, pain on inspiration, change in phlegm color, hemoptysis or chest congestion GI: Denies: abdominal pain, nausea, vomiting, hematemesis, coffee ground emesis, dysphagia, heartburn, diarrhea, constipation, bloating, GI cramping, change in bowel habits, pain on defecation, hematochezia or melena : Denies: flank pain, dysuria, urinary frequency, urinary urgency, urinary hesitancy, nocturia or hematuria Musc: Denies: neck pain, back pain, extremity pain, joint pain, joint swelling, joint redness, joint stiffness or limited range of motion Neuro: Denies: headache(s), numbness in extremities, weakness in extremities, sensory changes, lack of coordination, difficulty walking, frequent falls, dizziness, vertigo, confusion, Slurred speech present, difficulty communicating thoughts or seizure-like activity Psych: Denies: anxiety, depression, mood swings, panic attacks, hopelessness or irritability Endo: Denies: polyuria, polydipsia, tired all the time, cold intolerance, excessive sweating, flushing or heat intolerance [place]/Lymph: Denies: easy bruising or easy bleeding All/Imm: Denies: tongue swelling, facial swelling or acute wheezing Medications/Allergies Home Medications Medication Instructions Recorded Confirmed Last Taken Type docusate sodium 100 mg capsule 100 mg PO QPM 10/12/20 11/27/23 11/26/23 History blood sugar diagnostic (Contour #300 ea 10/08/22 11/27/23 Unknown Rx Next Test Strips) blood-glucose meter (OneTouch #1 ea 10/13/22 11/27/23 Unknown Rx Ultra2 Meter) lancets 33 gauge (OneTouch Delica #100 ea 10/13/22 11/27/23 Unknown Rx Plus Lancet) apixaban 5 mg tablet (Eliquis) 2.5 mg (1/2 x 5 mg) PO BID #90 tabs 03/03/23 11/27/23 11/27/23 Rx pen needle, diabetic 31 gauge x #100 ea 10/27/23 11/27/23 Unknown Rx 5/16 (BD Ultra-Fine Short Pen Needle) blood sugar diagnostic (OneTouch #200 ea 11/19/23 11/27/23 Unknown Rx Ultra Test strips) amiodarone 100 mg tablet 50 mg PO BID 11/27/23 11/27/23 11/27/23 History amlodipine 5 mg tablet 5 mg PO DAILY 11/27/23 11/27/23 Unknown History atorvastatin 40 mg tablet 40 mg PO QPM 11/27/23 11/27/23 11/26/23 History coenzyme Q10 100 mg capsule 100 mg PO BEDTIME 11/27/23 11/27/23 11/26/23 History (CoQ-10) doxazosin 2 mg tablet 2 mg PO BEDTIME 11/27/23 11/27/23 11/26/23 History furosemide 40 mg tablet 80 mg PO BID 11/27/23 11/27/23 11/27/23 History gentamicin 0.1 % topical cream See Rx Instructions .Route .COMPLEX 11/27/23 11/27/23 Unknown History insulin glargine 100 unit/mL (3 See Rx Instructions .Route .COMPLEX 11/27/23 11/27/23 Unknown History mL) subcutaneous pen (Lantus Solostar U-100 Insulin) levofloxacin 500 mg tablet 500 mg PO DAILY 11/27/23 11/27/23 Unknown History levothyroxine 75 mcg tablet 75 mcg PO QAM 11/27/23 11/27/23 11/27/23 History losartan 50 mg tablet 50 mg PO QAM 11/27/23 11/27/23 11/27/23 History mirtazapine 15 mg tablet 15 mg PO BEDTIME 11/27/23 11/27/23 11/26/23 History potassium chloride 20 mEq 10 meq PO BEDTIME 11/27/23 11/27/23 11/26/23 History tablet,extended release see pharmacy comment vit B,C-folic ac 800 mcg-zinc 12.5 1 tab PO DAILY 11/27/23 11/27/23 Unknown History mg-selen-D3 2,000 unit-vit E tablet (RenaPlex-D) Allergies Allergy/AdvReac Type Severity Reaction Status Date / Time Penicillins Allergy Intermediate rash Verified 11/27/23 14:09 PFSH Acute 2 PFSH: Medical History Pneumonia due to COVID-19 virus ESRD on peritoneal dialysis Atrial fibrillation Acute kidney injury superimposed on CKD Pneumonia Osteoarthritis (arthritis due to wear and tear of joints) Altered mental status Meningioma Anemia COVID-19 resolved Hypothyroidism GERD (gastroesophageal reflux disease) HTN (hypertension) CHF (congestive heart failure) CKD (chronic kidney disease) Diabetes Surgical History Peritoneal dialysis catheter in situ (06/26/21) History of ankle surgery S/P tonsillectomy Status post tubal ligation S/P cataract extraction S/P cervical spinal fusion Family History Mother Hypertension Grandmother Hypertension MATERNAL Other Cancer Diabetes Social History Smoking and tobacco/nicotine status: former use of tobacco/nicotine Quit status (tobacco/nicotine): has quit using Year quit tobacco: 1977 [id number] Second hand smoke exposure: Yes Alcohol intake: never Substance/Drug Use: never Caregiver/support person: Yes Lives independently: Yes Household members: spouse and children Housing: House Marital status: Current occupational status: retired Pets and animals: Yes Do you think of yourself as: Straight/Heterosexual Current gender identity: Female Vitals/I&O/Wt Last Vital Signs Temp 98.1 F 11/27/23 12:34 Pulse 67 11/27/23 12:39 Resp 20 H 11/27/23 12:34 BP 159/56 11/27/23 12:39 Pulse Ox 96 11/27/23 12:39 O2 Del Method Nasal Cannula 11/27/23 12:39 Weight last 48 hrs Weight 88.451 kg Physical Exam 2 Narrative: General: No acute distress, AO x3, healthy appearing on nasal cannula HEENT: PERRLA, pupils bilaterally equal and reactive Chest: Bilateral bronchial breath sounds all over lung riddle occasional rhonchi and fine crackles bilaterally in lower zone CVS: S1-S2 regular, no murmurs, no tachycardia, no gallops, no rubs Abdomen: Soft, nontender, no organomegaly, bowel sounds present Neuro: No focal deficits, no facial deformity, AO x3, power 5/5 in all limbs Data 11/27/23 13:06 11/27/23 13:08 Micro: Microbiology 11/27/23 13:08 Blood Culture - Preliminary Blood SPECIMEN COLLECTED 11/27/23 13:06 Blood Culture - Preliminary Blood SPECIMEN COLLECTED A&P Assessment and plan (1) Leukocytosis: Most likely in setting of pneumonia but unsure for now. Cannot rule out UTI or PD peritonitis. Check sputum culture, blood culture, urinalysis, urine culture, peritoneal fluid to rule out PD peritonitis, MRSA swab. Appreciate culture history with history of UTI with Enterococcus faecalis and staff epidermidis. For now start patient on IV vancomycin and meropenem. Patient is allergic to penicillin. Staff epidermidis sensitive to vancomycin in the past. Will de- escalate antibiotics as per culture results. Check CT chest abdomen pelvis without contrast for further evaluation. (2) Hypoxemia: Most likely in setting of community-acquired pneumonia. Also concerning for mild congestive heart failure. Oxygen supplementation keeping saturation over 90%. Lasix 80 mg IV twice daily. Patient takes oral 40 twice daily. Ipratropium, Xopenex every 6 hours, Pulmicort twice daily. (3) Community acquired pneumonia: Check sputum culture, urine Legionella, bacterial antigen. Antibiotics as above. Oxygen supplementation keeping saturation over 90%. Incentive spirometry and flutter valve. Qualifiers: Laterality: left Lung location: lower lobe of lung Qualified Code(s): J18.9 - Pneumonia, unspecified organism (4) CHF (congestive heart failure): History of diastolic congestive heart failure. Last echocardiogram showed a normal EF with dilated LA. Takes 80 mg of oral Lasix twice daily. For now put on IV Lasix 80 mg twice daily. Strict input output charting, daily weights. Fluid restriction up to 1500 cc. Qualifiers: Heart failure type: diastolic Heart failure chronicity: chronic Qualified Code(s): I50.32 - Chronic diastolic (congestive) heart failure (5) Atrial fibrillation: Currently rate controlled. Continue with oral amiodarone 50 mg twice daily, Eliquis 2.5 mg twice daily. Qualifiers: Atrial fibrillation type: paroxysmal Qualified Code(s): I48.0 - Paroxysmal atrial fibrillation (6) Diabetes: Check A1c. Continue with Lantus 15 units twice daily along with sliding scale low-dose protocol. 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: with superintendent [employer] use Diabetes mellitus complication status: with kidney complications Diabetes mellitus complication detail: with chronic kidney disease Chronic kidney disease stage: on chronic dialysis Qualified Code(s): E 11.22 - Type 2 diabetes mellitus with diabetic chronic kidney disease; N18.6 - End stage renal disease; Z79.4 - senior living (current) use of insulin; Z99.2 - Dependence on renal dialysis Plan History of hypertension History of hypothyroidism History of chronic end-stage renal disease on peritoneal dialysis CODE STATUS: Discussed in detail with the patient. and daughter will be DPOA. Full code. Diabetic renal dialysis diet Protonix for PUD prophylaxis Eliquis will be subfraction for DVT prophylaxis Attestations 2 Medical Necessity Statement*: Admission for more than 2 midnights for management of hypoxia in setting of community-acquired pneumonia, leukocytosis while other sources of infection including UTI and PD peritonitis is ruled out, congestive heart failure in a patient with history of end-stage renal disease on peritoneal dialysis Diagnoses Leukocytosis D72.829 Hypoxemia R09.02 Community acquired pneumonia of left lower lobe of lung J18.9 Laterality: left Lung location: lower lobe of lung Chronic diastolic congestive heart failure I50.32 Heart failure type: diastolic Heart failure chronicity: chronic Paroxysmal atrial fibrillation I48.0 Atrial fibrillation type: paroxysmal Type 2 diabetes mellitus with chronic kidney disease on chronic dialysis, with long-term current use of insulin E11.22; N18.6; Z79.4; Z99.2 Diabetes mellitus type: type 2 Diabetes mellitus superintendent [employer] insulin use: with fpc use Diabetes mellitus complication status: with kidney complications Diabetes mellitus complication detail: with chronic kidney disease Chronic kidney disease stage: on chronic dialysis
[2023-11-27 15:58] LABS: Procalcitonin 0.16 ng/mL (0-0.5); T3 Free 1.6 PG/ML (2.0-4.4)
--- NOTE | 2023-11-27 16:01 | CTR_ITS ---
PROCEDURE INFORMATION: Exam: CT Chest Without Contrast; Diagnostic Exam date and time: 11/27/2023 4:12 PM Age: 83 years old Clinical indication: Abdominal pain; Generalized; Chest pressure; Additional info: Possible pna vs sbp TECHNIQUE: Imaging protocol: Diagnostic computed tomography of the chest without contrast. Radiation optimization: All CT scans at this facility use at least one of these dose optimization techniques: automated exposure control; mA and/or kV adjustment per patient size (includes targeted exams where dose is matched to clinical indication); or iterative reconstruction. COMPARISON: CT chest wo con [id number] 02/04/2021 9:31 AM RADIATION DOSE METRICS: Total DLP (mGy-cm): 1018.53 FINDINGS: Lungs: No focal consolidation. Pleural spaces: Mild pulmonary vascular congestion with small right and trace left pleural effusions. Heart: Coronary calcifications. No pericardial effusion. Lymph nodes: No enlarged lymph nodes. Vasculature: No aortic aneurysm. Bones/joints: No acute findings Soft tissues: No acute findings. PROCEDURE INFORMATION: Exam: CT Abdomen And Pelvis Without Contrast Exam date and time: 11/27/2023 4:12 PM Age: 83 years old Clinical indication: Abdominal pain; Generalized; Chest pressure; Additional info: Possible pna vs sbp TECHNIQUE: Imaging protocol: Computed tomography of the abdomen and pelvis without contrast. Radiation optimization: All CT scans at this facility use at least one of these dose optimization techniques: automated exposure control; mA and/or kV adjustment per patient size (includes targeted exams where dose is matched to clinical indication); or iterative reconstruction. COMPARISON: CT abdomen pelvis wo con [id number] 06/07/2021 9:13 AM RADIATION DOSE METRICS: Total DLP (mGy-cm): 1018.53 FINDINGS: Liver: No acute findings Gallbladder and bile ducts: No acute findings. Pancreas: No ductal dilation. Spleen: No splenomegaly. Adrenal glands: No mass. Kidneys and ureters: No stones or hydronephrosis. Stomach and bowel: No obstruction. Appendix: No evidence of appendicitis. Intraperitoneal space: Peritoneal catheter is in place without obvious complication. Vasculature: Extensive atherosclerotic calcifications without aneurysm. Lymph nodes: No enlarged lymph nodes. Urinary bladder: No acute findings. Reproductive: No acute findings. Bones/joints: Degenerative changes without acute findings. Soft tissues: No acute findings. CT/[place] [id number] IMPRESSION: Mild pulmonary edema with small right and trace left pleural effusions. IMPRESSION: No acute abdominal findings.
[2023-11-27] MEDS: FUROsemide 10 mg/mL SDV 10mL 80 MG IVP (16:55)
[2023-11-27 18:35] LABS: Glucose Point of Care 141 mg/dL (70-110)
[2023-11-27 18:49] LABS: Iron 27 ug/dL (37-145); Percent Saturation 12.7 % (20-50); Thyroid Stimulating Hormone 18.03 uIU/mL (0.27-4.20); Total Iron Binding Capacity 212 mcg/dl; Unsaturated Iron Binding 185 ug/dL (112-347); Vitamin B12 1149 pg/mL (232-1245)
[2023-11-27] MEDS: vancomycin 750 MG in sodium chloride 0.9% 250 ML 250 MG IV (18:49)
[2023-11-27] MEDS: amiodarone 200 mg Tablet 50 MG PO (18:55)
[2023-11-27] MEDS: atorvastatin 40 mg Tablet PO (18:55)
[2023-11-27] MEDS: apixaban 5 mg Tablet 2.5 MG PO (18:55)
[2023-11-27 19:00] LABS: Glucose Urine UA Norm (Normal); Ketones Urine Negative (Negative); Protein Urine 3+ (Negative); Specific Gravity, Urine 1.005 (1.005-1.030); Urine Appearance Cloudy (CLEAR); Urine Color Yellow (Yellow); pH Urine 6 (5-7)
[2023-11-27 19:01] LABS: Add Urine Microscopic? YES; Bilirubin Urine Neg (Negative); Blood Urine 3+ (Negative); Leukocyte Esterase Urine 2+ (Negative); Nitrate Urine Negative (Negative); Urine Creatinine 60 mg/dL (28-217); Urobilinogen Urine Neg (Negative)
[2023-11-27] MEDS: insulin lispro 100 unit/1 mL SUBCUT (19:01)
[2023-11-27] MEDS: insulin glargine 100 units/1 mL 15 UNIT SUBCUT (19:02)
[2023-11-27 19:04] LABS: Bacteria Urine 2+ /hpf; Mucus Urine 1+ /hpf; RBC Urine 50-80 /hpf (0-2); Squamous Epithelial Cell Urine 0-4 /hpf (0-5); WBC Urine 80-100 /hpf (0-5)
[2023-11-27 19:05] LABS: Add Urine Culture? Yes
[2023-11-27 19:48] LABS: Eosinophil Urine No Eosinophils Seen; Urine Eosinophil Count 0 (0-0)
[2023-11-27 20:22] LABS: Adenovirus Not Detected (NOT DETECT); Chlamydia Pneumoniae Not Detected (NOT DETECT); Coronavirus 229E,HKU1,NL63,OC4 Not Detected (NOT DETECT); Human Metapneumovirus Not Detected (NOT DETECT); Human Rhinovirus/Enterovirus Not Detected (NOT DETECT); Influenza A Not Detected (NOT DETECT); Influenza A H1 Not Detected (NOT DETECT); Influenza A H1-2009 Not Detected (NOT DETECT); Influenza A H3 Not Detected (NOT DETECT); Influenza B Not Detected (NOT DETECT); Mycoplasma Pneumoniae Not Detected (NOT DETECT); Parainfluenza Virus Type 1 Not Detected (NOT DETECT); Parainfluenza Virus Type 2 Not Detected (NOT DETECT); Parainfluenza Virus Type 3 Not Detected (NOT DETECT); Parainfluenza Virus Type 4 Not Detected (NOT DETECT); Respiratory Syncytial Virus A Not Detected (NOT DETECT); Respiratory Syncytial Virus B Not Detected (NOT DETECT); SARS-COV-2 Not Detected (NOT DETECT)
[2023-11-27] MEDS: meropenem 1,000 MG in sodium chloride 0.9% (plus) 50 ML 100 MG IV (20:32)
[2023-11-27] MEDS: doxazosin 1 mg Tablet 2 MG PO (20:33)
[2023-11-27] MEDS: mirtazapine 15 mg Tablet PO (20:33)
[2023-11-27] MEDS: budesonide 0.5 mg/2 mL Neb INHALATION (20:59)
[2023-11-27] MEDS: ipratropium-albuterol 3 mL Neb INHALATION (20:59)
[2023-11-27 22:08] LABS: Glucose Point of Care 80 mg/dL (70-110)
[2023-11-28] VITALS (14 sets, daily range): BP systolic 117–171; BP diastolic 58–95; PULSE 65–82; RESP 15–18; TEMP 36.3–37.1; O2SAT 81–97; BMI 35.3; BMI 35.9
[2023-11-28] MEDS: meropenem 1,000 MG in sodium chloride 0.9% (plus) 50 ML 100 MG IV (04:16)
[2023-11-28 04:27] LABS: Glucose Point of Care 63 mg/dL (70-110)
[2023-11-28] MEDS: FUROsemide 10 mg/mL SDV 10mL 80 MG IVP ×2 (04:51→15:55)
[2023-11-28 04:54] LABS: Glucose Point of Care 69 mg/dL (70-110)
[2023-11-28] MEDS: losartan 50 mg Tablet PO (05:18)
[2023-11-28] MEDS: levothyroxine 75 mcg Tablet PO (05:19)
[2023-11-28 05:50] LABS: Basophils # 0.1 10^3/uL (0.0-0.1); Basophils % 0.5 %; Eosinophils # 0.1 10^3/uL (0.0-0.8); Eosinophils % 1.2 %; Hematocrit 35.4 % (36-47); Lymphocytes # 0.8 10^3/uL (0.8-4.8); Lymphocytes % 7.1 %; Mean Corpuscular HGB Conc 29.9 g/dL (30-55); Mean Corpuscular Volume 103.5 fl (85-98); Mean Platelet Volume 10.8 fL (7.4-10.4); Monocytes # 0.6 10^3/uL (0.2-0.9); Monocytes % 5.1 %; Neutrophils # 9.82 10^3/uL (1.8-7.7); Neutrophils % 85.6 %; Nucleated Red Blood Cells % 0 %; Platelet Count 227 10^3/cmm (157-399); Red Blood Count 3.42 10^6/uL (3.85-5.65); Red Cell Distribution Width 12.5 % (12.1-15.1); White Blood Count 11.48 10^3/uL (3.29-11.43)
[2023-11-28 06:20] LABS: Cholesterol 107 mg/dL (0-200); HDL Cholesterol 51 mg/dL (60-100); LDL Cholesterol Calculated 41 mg/dL (50-129); Triglycerides 76 mg/dL (0-150)
[2023-11-28 06:22] LABS: Alanine Aminotransferase 16 U/L (0-33); Albumin Level 3.6 g/dL (3.5-5.2); Alkaline Phosphatase 85 U/L (35-105); Anion Gap 18.5 (5-19); Aspartate Amino Transferase 15 U/L (0-32); Blood Urea Nitrogen 39 mg/dL (8-23); Calcium 9.3 mg/dL (8.5-10.5); Carbon Dioxide 27 mmol/L (22-29); Chloride 100 mmol/L (98-107); Creatinine Clr Calc Pharmacy 13.6887; Estmated Average Glucose 163; Globulin 2.9 g/dL (1.3-4.6); Glucose 83 mg/dL (65-115); Hemoglobin A1C 7.3 % (4.0-6.0); Magnesium 1.9 mg/dL (1.7-2.3); Osmolality Calculated 303 mOsm/kg (285-295); Phosphorus 4.3 mg/dL (2.5-4.5); Potassium 3.5 mmol/L (3.5-5.1); Sodium 142 mmol/L (136-145); Total Bilirubin 0.5 mg/dL (0.15-1.2); Total Protein 6.5 g/dL (6.6-8.7)
[2023-11-28 06:24] LABS: Procalcitonin 0.18 ng/mL (0-0.5)
[2023-11-28 06:57] LABS: Folate Level > 20.0 ng/mL (4.8-37.3)
[2023-11-28 07:07] LABS: Glucose Point of Care 158 mg/dL (70-110)
[2023-11-28] MEDS: budesonide 0.5 mg/2 mL Neb INHALATION ×2 (08:45→19:47)
[2023-11-28] MEDS: ipratropium-albuterol 3 mL Neb INHALATION ×3 (08:45→19:47)
[2023-11-28] MEDS: insulin glargine 100 units/1 mL 15 UNIT SUBCUT (08:54)
[2023-11-28] MEDS: insulin lispro 100 unit/1 mL SUBCUT ×4 (08:54→20:56)
[2023-11-28] MEDS: amiodarone 200 mg Tablet 50 MG PO ×2 (08:55→18:53)
[2023-11-28] MEDS: pantoprazole DR 40 mg Tablet PO (08:55)
[2023-11-28] MEDS: amlodipine 5 mg Tablet PO (08:55)
[2023-11-28] MEDS: azithromycin 250 mg Tablet 500 MG PO (08:56)
[2023-11-28] MEDS: apixaban 5 mg Tablet 2.5 MG PO ×2 (08:56→18:53)
[2023-11-28] MEDS: metOLazone 5 MG Tablet PO (12:13)
--- NOTE | 2023-11-28 13:58 | P.CONIM_ITS ---
Providers/Reason For Consult 2 Consulting Physician/Specialty*: [facility]/Nephrology Reason for Consult*: ESRD-PD Attending Physician: Fidel Steinberg MD Primary Care Provider: Mann Garduno MD History of Present Illness History of Present Illness Luiza oCoper is a 83 year old female Patient is 83-year-old female with past medical history of end-stage renal disease on peritoneal dialysis, chronic A-fib on Eliquis, hypothyroidism, obesity, insulin-dependent diabetes type 2 was brought to the emergency department due to generalized weakness, shortness of breath and hypoxia. Patient also complains of having fevers at home. She denies any abdominal pain no nausea vomiting. No pain at the peritoneal catheter site. Patient was placed on 2 L O2 in the ED other lab data was significant for white count of 14,000, creatinine of 3. Chest x-ray showed vascular congestion. Review of Systems 2 Narrative: OTHER ros NEGATIVE Medications/Allergies Home Medications Medication Instructions Recorded Confirmed Last Taken Type docusate sodium 100 mg capsule 100 mg PO QPM 10/12/20 11/27/23 11/26/23 History blood sugar diagnostic (Contour #300 ea 10/08/22 11/27/23 Unknown Rx Next Test Strips) blood-glucose meter (OneTouch #1 ea 10/13/22 11/27/23 Unknown Rx Ultra2 Meter) lancets 33 gauge (OneTouch Delica #100 ea 10/13/22 11/27/23 Unknown Rx Plus Lancet) apixaban 5 mg tablet (Eliquis) 2.5 mg (1/2 x 5 mg) PO BID #90 tabs 03/03/23 11/27/23 11/27/23 Rx pen needle, diabetic 31 gauge x #100 ea 10/27/23 11/27/23 Unknown Rx 5/16 (BD Ultra-Fine Short Pen Needle) blood sugar diagnostic (OneTouch #200 ea 11/19/23 11/27/23 Unknown Rx Ultra Test strips) amiodarone 100 mg tablet 50 mg PO BID 11/27/23 11/27/23 11/27/23 History amlodipine 5 mg tablet 5 mg PO DAILY 11/27/23 11/27/23 Unknown History atorvastatin 40 mg tablet 40 mg PO QPM 11/27/23 11/27/23 11/26/23 History coenzyme Q10 100 mg capsule 100 mg PO BEDTIME 11/27/23 11/27/23 11/26/23 History (CoQ-10) doxazosin 2 mg tablet 2 mg PO BEDTIME 11/27/23 11/27/23 11/26/23 History furosemide 40 mg tablet 80 mg PO BID 11/27/23 11/27/23 11/27/23 History gentamicin 0.1 % topical cream See Rx Instructions .Route .COMPLEX 11/27/23 11/27/23 Unknown History insulin glargine 100 unit/mL (3 See Rx Instructions .Route .COMPLEX 11/27/23 11/27/23 Unknown History mL) subcutaneous pen (Lantus Solostar U-100 Insulin) levofloxacin 500 mg tablet 500 mg PO DAILY 11/27/23 11/27/23 Unknown History levothyroxine 75 mcg tablet 75 mcg PO QAM 11/27/23 11/27/23 11/27/23 History losartan 50 mg tablet 50 mg PO QAM 11/27/23 11/27/23 11/27/23 History mirtazapine 15 mg tablet 15 mg PO BEDTIME 11/27/23 11/27/23 11/26/23 History potassium chloride 20 mEq 10 meq PO BEDTIME 11/27/23 11/27/23 11/26/23 History tablet,extended release see pharmacy comment vit B,C-folic ac 800 mcg-zinc 12.5 1 tab PO DAILY 11/27/23 11/27/23 Unknown History mg-selen-D3 2,000 unit-vit E tablet (RenaPlex-D) Allergies Allergy/AdvReac Type Severity Reaction Status Date / Time Penicillins Allergy Intermediate rash Verified 11/27/23 14:09 Current Medications Generic Name Dose Route Start Last Admin Trade Name Teoq PRN Reason Stop Dose Admin Albuterol/Ipratropium 3 ml 11/27/23 20:00 11/28/23 13:40 Ipratropium-Albuterol 3 Ml Neb INHALATION 3 ml Q6H.RESP NIKO Administration Amiodarone HCl 50 mg 11/27/23 18:00 11/28/23 08:55 Amiodarone 200 Mg Tablet PO 50 mg BID NIKO Administration Apixaban 2.5 mg 11/27/23 18:00 11/28/23 08:56 Apixaban 5 Mg Tablet PO 2.5 mg BID NIKO Administration Atorvastatin Calcium 40 mg 11/27/23 18:00 11/27/23 18:55 Atorvastatin 40 Mg Tablet PO 40 mg QPM NIKO Administration Azithromycin 500 mg 11/28/23 09:00 11/28/23 08:56 Azithromycin 250 Mg Tablet PO 500 mg DAILY NIOK Administration Protocol Budesonide 0.5 mg 11/27/23 20:00 11/28/23 08:45 Budesonide 0.5 Mg/2 Ml Neb INHALATION 0.5 mg BID.RESPIRATORY NIKO Administration Doxazosin Mesylate 2 mg 11/27/23 21:00 11/27/23 20:33 Doxazosin 1 Mg Tablet PO 2 mg BEDTIME NIKO Administration Furosemide 80 mg 11/27/23 16:01 11/28/23 04:51 Furosemide 10 Mg/Ml Sdv 10ml IVP 80 mg Q12H NIKO Administration Vancomycin HCl 750 mg/ Sodium 250 mls @ 250 mls/hr 11/27/23 16:00 11/27/23 20:22 Chloride IV Infused Q48H NIKO Infusion Insulin Human Lispro 0 unit 11/27/23 18:00 11/28/23 12:13 Insulin Lispro 100 Unit/1 Ml SUBCUT 2 unit WM&BEDTIME NIKO Administration Protocol Levothyroxine Sodium 75 mcg 11/28/23 06:00 11/28/23 05:19 Levothyroxine 75 Mcg Tablet PO 75 mcg QAM NIKO Administration Losartan Potassium 50 mg 11/28/23 06:00 11/28/23 05:18 Losartan 50 Mg Tablet PO 50 mg QAM NIKO Administration Mirtazapine 15 mg 11/27/23 21:00 11/27/23 20:33 Mirtazapine 15 Mg Tablet PO 15 mg BEDTIME NIKO Administration Pantoprazole Sodium 40 mg 11/28/23 09:00 11/28/23 08:[address] 40 Mg Tablet PO 40 mg DAILY NIKO Administration PFSH Acute 2 PFSH: Medical History Pneumonia due to COVID-19 virus ESRD on peritoneal dialysis Atrial fibrillation Acute kidney injury superimposed on CKD Pneumonia Osteoarthritis (arthritis due to wear and tear of joints) Altered mental status Meningioma Anemia COVID-19 resolved Hypothyroidism GERD (gastroesophageal reflux disease) HTN (hypertension) CHF (congestive heart failure) CKD (chronic kidney disease) Diabetes Surgical History Peritoneal dialysis catheter in situ (06/26/21) History of ankle surgery S/P tonsillectomy Status post tubal ligation S/P cataract extraction S/P cervical spinal fusion Family History Mother Hypertension Grandmother Hypertension MATERNAL Other Cancer Diabetes Social History Smoking and tobacco/nicotine status: former use of tobacco/nicotine Quit status (tobacco/nicotine): has quit using Year quit tobacco: 1977 [id number] Second hand smoke exposure: Yes Alcohol intake: never Substance/Drug Use: never Caregiver/support person: Yes Lives independently: Yes Household members: spouse and children Housing: House Marital status: Current occupational status: retired Pets and animals: Yes Do you think of yourself as: Straight/Heterosexual Current gender identity: Female Vitals/I&O/Wt Last Vital Signs Temp 97.9 F 11/28/23 12:00 Pulse 70 11/28/23 13:50 Resp 18 11/28/23 13:40 BP 145/69 11/28/23 12:00 Pulse Ox 95 11/28/23 13:40 O2 Del Method Nasal Cannula 11/28/23 13:40 O2 Flow Rate 2 11/28/23 13:40 11/27/23 11/28/23 11/28/23 22:59 06:59 14:59 Intake Total 600 / 600 50 / 650 240 / 240 Output Total 1200 / 1200 Balance 600 / 600 -1150 / -550 240 / 240 Weight last 48 hrs Weight 87.628 kg Weight 87.589 kg Weight 88.451 kg Physical Exam 2 Narrative: AWAKE , ALERT ON 2L NC NO DISTRESS NO EDEMA Urinary Catheter Management: [place]: Cath Placed During This Visit: yes Reason for Continuing Indwelling Catheter: Other Urinary Catheter Date of Insertion: 11/27/23 Data 11/28/23 05:32 11/28/23 05:32 Micro: Microbiology 11/27/23 13:08 Blood Culture - Preliminary Blood NEGATIVE TO DATE 11/27/23 13:06 Blood Culture - Preliminary Blood NEGATIVE TO DATE 11/27/23 16:45 Legionella Urinary Antigen - Final Unknown Source 03/08/24 16:45 Bacterial Antigens - Final Urine Kidney A&P Assessment and plan (1) ESRD on peritoneal dialysis: Plan 1. End-stage renal disease: On peritoneal dialysis, patient does 1 exchange with 2.5% solution with a 6-hour dwell. Given absence of nausea vomiting or abdominal pain or tenderness , and no evidence of cloudy dialysate--> given these findings, suspicion for peritonitis is very low -PD fluid cultures have been ordered, will follow -Will add 2 exchanges with - 2.5% solution X 1 4.25% solution X1 from tomorrow with a goal for extra ultrafiltration if possible -Will add nystatin as patient is on antibiotics for prophylaxis for fungal peritonitis -2 g sodium restriction and 1500 mill fluid restriction 2. Question sepsis, UTI related versus pneumonia, antibiotics per medicine team 3. Volume overload with pulmonary edema, UF as above with PD 4. History of atrial fibrillation 5. Anemia: Hemoglobin at goal, monitor Discussed with patient daughter at bedside Patient evaluated using audiovisual cart. Time spent 40 minutes. Consult Attestations 2 Medical Necessity Statement: per medicine team Coding Level of Care Code Acute Code for Chg Fwd Diagnoses ESRD on peritoneal dialysis N18.6; Z99.2
--- NOTE | 2023-11-28 14:02 | P.PN_ITS ---
Subjective 2 Subjective: Today morning patient seen sitting up in chair. Daughter at bedside. States he is feeling slightly better. Denies any nausea, vomiting, headache. AOx3 and able to complete conversation. Acute 2 L of oxygen supplementation. Did have episode of hypoglycemia in the middle of the night. As per the daughter hypoglycemia are very common at home as well specially at night. Vitals/I&O/Wt Last Vital Signs Temp 97.9 F 11/28/23 12:00 Pulse 70 11/28/23 13:50 Resp 18 11/28/23 13:40 BP 145/69 11/28/23 12:00 Pulse Ox 95 11/28/23 13:40 O2 Del Method Nasal Cannula 11/28/23 13:40 O2 Flow Rate 2 11/28/23 13:40 11/27/23 11/28/23 11/28/23 22:59 06:59 14:59 Intake Total 600 / 600 50 / 650 240 / 240 Output Total 1200 / 1200 Balance 600 / 600 -1150 / -550 240 / 240 Weight last 48 hrs Weight 87.628 kg Weight 87.589 kg Weight 88.451 kg Physical Exam 2 Narrative: General: No acute distress, AO x3, healthy appearing on nasal cannula HEENT: PERRLA, pupils bilaterally equal and reactive Chest: Bilateral bronchial breath sounds all over lung riddle occasional rhonchi and fine crackles bilaterally in lower zone CVS: S1-S2 regular, no murmurs, no tachycardia, no gallops, no rubs Abdomen: Soft, nontender, no organomegaly, bowel sounds present Neuro: No focal deficits, no facial deformity, AO x3, power 5/5 in all limbs Urinary Catheter Management: [place]: Cath Placed During This Visit: yes Reason for Continuing Indwelling Catheter: Other Urinary Catheter Date of Insertion: 11/27/23 Data 11/28/23 05:32 11/28/23 05:32 Micro: Microbiology 11/27/23 13:08 Blood Culture - Preliminary Blood NEGATIVE TO DATE 11/27/23 13:06 Blood Culture - Preliminary Blood NEGATIVE TO DATE 11/27/23 16:45 Legionella Urinary Antigen - Final Unknown Source 11/27/23 16:45 Bacterial Antigens - Final Urine Kidney A&P Assessment and plan (1) Leukocytosis: Most likely in setting of pneumonia but unsure for now. Cannot rule out UTI or PD peritonitis. Blood culture pending, sputum culture pending. Appreciate urinalysis. Urine culture pending. Somehow patient did not get dialysis yesterday hence PD fluid was not collected. Will request nurse for PD today. She is agreeable. Appreciate culture history with history of UTI with Enterococcus faecalis and staff epidermidis. Continue with IV vancomycin and meropenem. Patient is allergic to penicillin. Staff epidermidis sensitive to vancomycin in the past. Will de-escalate antibiotics as per culture results. Changed the dose of meropenem to 5 mg IV daily as per creatinine clearance from peritoneal dialysis. Appreciate CT chest abdomen pelvis without contrast without any active source of infection with some concerns for fluid overload in the lungs and anasarca (2) Hypoxemia: Most likely in setting of community-acquired pneumonia. Also concerning for mild congestive heart failure. Oxygen supplementation keeping saturation over 90%. Lasix 80 mg IV twice daily. Takes 80 mg twice daily at home. Add metolazone 5 mg one-time today. Ipratropium, Xopenex every 6 hours, Pulmicort twice daily. (3) Community acquired pneumonia: Pending sputum culture, urine Legionella, bacterial antigen. Antibiotics as above. Respiratory viral panel negative. Oxygen supplementation keeping saturation over 90%. Incentive spirometry and flutter valve. Qualifiers: Laterality: left Lung location: lower lobe of lung Qualified Code(s): J18.9 - Pneumonia, unspecified organism (4) CHF (congestive heart failure): History of diastolic congestive heart failure. Last echocardiogram showed a normal EF with dilated LA. Takes 80 mg of oral Lasix twice daily. For now put on IV Lasix 80 mg twice daily. Strict input output charting, daily weights. Fluid restriction up to 1500 cc. Qualifiers: Heart failure type: diastolic Heart failure chronicity: chronic Qualified Code(s): I50.32 - Chronic diastolic (congestive) heart failure (5) Atrial fibrillation: Currently rate controlled. Continue with oral amiodarone 50 mg twice daily, Eliquis 2.5 mg twice daily. Qualifiers: Atrial fibrillation type: paroxysmal Qualified Code(s): I48.0 - Paroxysmal atrial fibrillation (6) Diabetes: A1c 7.3. Patient having episode of hypoglycemia at night. Also having multiple episodes of hypoglycemia at night at home. At home she takes 35 units Lantus every morning send sliding scale Lantus at night as per her hotel reservationist. Does not take any short-acting insulin. Discussed in detail with the patient with concerns of taking as needed Lantus. Advised to stop overnight Lantus at home. For now changed to Lantus 20 units every morning. Continue with sliding scale. Hypoglycemia protocol. Qualifiers: Diabetes mellitus type: type 2 Diabetes mellitus halfway insulin use: with central stores attendant use Diabetes mellitus complication status: with kidney complications Diabetes mellitus complication detail: with chronic kidney disease Chronic kidney disease stage: on chronic dialysis Qualified Code(s): E 11.22 - Type 2 diabetes mellitus with diabetic chronic kidney disease; N18.6 - End stage renal disease; Z79.4 - halfway (current) use of insulin; Z99.2 - Dependence on renal dialysis Plan History of hypertension: Goal blood pressure less than 140/90 mmHg. Continue with home antihypertensives for now. Will uptitrate antihypertensive as per goal blood pressures. History of hypothyroidism History of chronic end-stage renal disease on peritoneal dialysis CODE STATUS: Discussed in detail with the patient. and daughter will be DPOA. Full code. Diabetic renal dialysis diet Protonix for PUD prophylaxis Eliquis will be subfraction for DVT prophylaxis Attestations 2 Medical Necessity Statement*: Requires further hospitalization for management of leukocytosis in setting of possible UTI, hypoxia in setting of congestive heart failure while pneumonia and PD peritonitis are ruled out Diagnoses Leukocytosis D72.829 Hypoxemia R09.02 Community acquired pneumonia of left lower lobe of lung J18.9 Laterality: left Lung location: lower lobe of lung Chronic diastolic congestive heart failure I50.32 Heart failure type: diastolic Heart failure chronicity: chronic Paroxysmal atrial fibrillation I48.0 Atrial fibrillation type: paroxysmal Type 2 diabetes mellitus with chronic kidney disease on chronic dialysis, with long-term current use of insulin E11.22; N18.6; Z79.4; Z99.2 Diabetes mellitus type: type 2 Diabetes mellitus central stores attendant insulin use: with central stores attendant use Diabetes mellitus complication status: with kidney complications Diabetes mellitus complication detail: with chronic kidney disease Chronic kidney disease stage: on chronic dialysis
[2023-11-28 17:46] LABS: Glucose Point of Care 416 mg/dL (70-110)
[2023-11-28 18:03] LABS: Cyto Order Verification No Order
[2023-11-28 18:07] LABS: Apprearance, Body Fluid CLEAR; Body Fluid Polynuclear #Cells 0.009; Body Fluid Specific Gravity 1.005; Body Fluid WBC 46 /uL; Color, Body Fluid PALE YELLOW; Monocytes # Body Fluid 0.037; RBC, Body Fluid 0 10^3/uL
[2023-11-28 18:08] LABS: PATH Referral YES
[2023-11-28 18:12] LABS: Fluid Laterality Right Upper
[2023-11-28] MEDS: atorvastatin 40 mg Tablet PO (18:54)
[2023-11-28 18:56] LABS: Fluid Alkaline Phos. 5 IU/L
[2023-11-28 18:57] LABS: Albumin Body Fluid 0.3 g/dL; Amylase Body Fluid 3 U/L; Cholesterol Body Fluid 9 mg/dL (0-200); LDH Body Fluid 11 U/L; Total Protein Body Fluid 0.2 g/dL; Triglycerides Body Fluid 11 mg/dL (0-150); Uric Acid Body Fluid 6 mg/dL
[2023-11-28 20:44] LABS: Glucose Point of Care 254 mg/dL (70-110)
[2023-11-28] MEDS: mirtazapine 15 mg Tablet PO (20:56)
[2023-11-28] MEDS: doxazosin 1 mg Tablet 2 MG PO (20:56)
[2023-11-29] VITALS (10 sets, daily range): BP systolic 145–156; BP diastolic 70–95; PULSE 67–81; RESP 16–18; TEMP 36.5–36.7; O2SAT 85–98; BMI 35.5
[2023-11-29] MEDS: FUROsemide 10 mg/mL SDV 10mL 80 MG IVP (04:13)
[2023-11-29] MEDS: losartan 50 mg Tablet PO (05:10)
[2023-11-29] MEDS: levothyroxine 75 mcg Tablet PO (05:10)
[2023-11-29] MEDS: insulin glargine 100 units/1 mL 20 UNIT SUBCUT (05:11)
[2023-11-29 06:50] LABS: Glucose Point of Care 106 mg/dL (70-110)
[2023-11-29 07:26] LABS: Basophils # 0.1 10^3/uL (0.0-0.1); Basophils % 0.4 %; Eosinophils # 0.4 10^3/uL (0.0-0.8); Eosinophils % 3.4 %; Hematocrit 29.2 % (36-47); Lymphocytes # 1.7 10^3/uL (0.8-4.8); Lymphocytes % 14.9 %; Mean Corpuscular HGB Conc 31.5 g/dL (30-55); Mean Corpuscular Volume 98.3 fl (85-98); Mean Platelet Volume 9.9 fL (7.4-10.4); Monocytes # 0.7 10^3/uL (0.2-0.9); Monocytes % 6.2 %; Neutrophils # 8.54 10^3/uL (1.8-7.7); Neutrophils % 74.5 %; Nucleated Red Blood Cells % 0 %; Platelet Count 225 10^3/cmm (157-399); Red Blood Count 2.97 10^6/uL (3.85-5.65); Red Cell Distribution Width 12.6 % (12.1-15.1); White Blood Count 11.47 10^3/uL (3.29-11.43)
[2023-11-29 07:59] LABS: Alanine Aminotransferase 14 U/L (0-33); Alkaline Phosphatase 74 U/L (35-105); Anion Gap 16.6 (5-19); Aspartate Amino Transferase 10 U/L (0-32); Blood Urea Nitrogen 44 mg/dL (8-23); Calcium 8.8 mg/dL (8.5-10.5); Carbon Dioxide 27 mmol/L (22-29); Chloride 100 mmol/L (98-107); Globulin 2.8 g/dL (1.3-4.6); Glucose 95 mg/dL (65-115); Osmolality Calculated 301 mOsm/kg (285-295); Potassium 3.6 mmol/L (3.5-5.1); Sodium 140 mmol/L (136-145); Total Bilirubin 0.3 mg/dL (0.15-1.2); Total Protein 5.8 g/dL (6.6-8.7)
[2023-11-29 08:04] LABS: Creatinine Clr Calc Pharmacy 12.2051
--- NOTE | 2023-11-29 08:11 | PC.NURSE ---
Peritoneal dialysis delayed this AM due to pt requesting soluntion being warmed. Will begin treatment as soon as solution has warmed.
[2023-11-29] MEDS: ipratropium-albuterol 3 mL Neb INHALATION ×2 (09:04→13:04)
[2023-11-29] MEDS: budesonide 0.5 mg/2 mL Neb INHALATION (09:05)
[2023-11-29] MEDS: Dianeal low Ca w/2.5% dex 2,000 mL Bag 2000 ML INTRAPERIT (09:28)
[2023-11-29] MEDS: meropenem 500 MG in sodium chloride 0.9% (plus) 50 ML 100 MG IV (09:31)
[2023-11-29] MEDS: amiodarone 200 mg Tablet 50 MG PO (09:31)
[2023-11-29] MEDS: azithromycin 250 mg Tablet 500 MG PO (09:31)
[2023-11-29] MEDS: pantoprazole DR 40 mg Tablet PO (09:31)
[2023-11-29] MEDS: apixaban 5 mg Tablet 2.5 MG PO (09:32)
[2023-11-29] MEDS: amlodipine 5 mg Tablet PO (09:32)
[2023-11-29 11:57] LABS: Glucose Point of Care 258 mg/dL (70-110)
--- NOTE | 2023-11-29 12:35 | P.DS_ITS ---
Discharge Providers Date of Admission: 11/27/23 14:09 Date of Discharge: November 29, 2023 Attending Provider at Admission: Fidel Steinberg MD Attending Provider at Discharge: Fidel Steinberg MD Consults: Telenephrology Primary Care Provider: Mann Garduno MD Diagnoses at Discharge Discharge Diagnosis (1) ESRD on peritoneal dialysis: Status: Acute (2) CHF (congestive heart failure): Status: Acute Qualifiers: Heart failure type: diastolic Heart failure chronicity: chronic Qualified Code(s): I50.32 - Chronic diastolic (congestive) heart failure (3) Atrial fibrillation: Status: Chronic Qualifiers: Atrial fibrillation type: paroxysmal Qualified Code(s): I48.0 - Paroxysmal atrial fibrillation (4) Diabetes: Status: Chronic Qualifiers: Diabetes mellitus type: type 2 Diabetes mellitus moth exterminator insulin use: with skilled nursing use Diabetes mellitus complication status: with kidney complications Diabetes mellitus complication detail: with chronic kidney disease Chronic kidney disease stage: on chronic dialysis Qualified Code(s): E11.22 - Type 2 diabetes mellitus with diabetic chronic kidney disease; N18.6 - End stage renal disease; Z79.4 - joint terminal attack controller (current) use of insulin; Z99.2 - Dependence on renal dialysis (5) Leukocytosis: Status: Acute (6) Hypoxemia: Status: Acute (7) Hypoglycemia associated with type 2 diabetes mellitus: Status: Acute Reason for Visit Reason for Visit: sent by dr Garduno [facility] Course Luiza Cooper is a 83 year old female with past medical history of ESRD on peritoneal dialysis, chronic A-fib on Eliquis, hypothyroidism, obesity, insulin- dependent type 2 diabetes mellitus presents to the ER today from her primary care's office for hypoxia. Patient states she was at her baseline health till last night but today morning she when she woke up she was feeling sick, tired and blood pressure on her home blood pressure machine was low along with hypoxia down to the low 70s so she presented to the primary care's office. Primary care's office she was drowsy and tired appearing and was hypoxic and placed on 2 L of oxygen supplementation to maintain saturation over 90% and sent over to the hospital. She denies any sick contacts. Fever at home was up to 100 Fahrenheit. Denies any nausea, vomiting, headache, changes in bowel habits, changes in peritoneal dialysis recently. Examination patient is awake and alert, sitting comfortably in bed without tachycardia saturating more than 95% on 2 L of oxygen supplementation Patient was admitted to the hospital further evaluation and management of leukocytosis, mild hypoxia with concerns for possible infection and congestive heart failure. She was started on IV diuresis. After multiple workup patient did not have pneumonia, PD peritonitis but urine cultures were positive for gram-negative rods. She was continued on IV antibiotics. Patient did not have any further episode of fever during hospitalization and leukocytosis resolved. Hospitalization was complicated by hypoglycemia on her home antidiabetic medications. As per the family members patient is supposed to be on 35 units of Lantus in the morning and sliding scale Lantus at night and almost every night she has to wake up in the middle of the night with hypoglycemia to eat a spoon of peanut butter. She has been discharged on oral linezolid and Levaquin for next 5 days with Levaquin for gram-negative rods in urine and linezolid with past history of staff epidermidis and Enterococcus in urine. Her dose of diuretics have been managed as well. She is to continue taking her Lasix 80 mg twice daily and metolazone 5 mg daily has been added to her medication list. It is advised for her to continue taking 35 units of Lantus in the morning but to hold off on her sliding scale Lantus at night. Discharge plan were discussed in detail with the patient and she verbalized understanding. Physical Exam Narrative: General: No acute distress, AO x3, healthy appearing on nasal cannula 1 L HEENT: PERRLA, pupils bilaterally equal and reactive Chest: Bilateral bronchial breath sounds all over lung riddle occasional rhonchi and fine crackles bilaterally in lower zone CVS: S1-S2 regular, no murmurs, no tachycardia, no gallops, no rubs Abdomen: Soft, nontender, no organomegaly, bowel sounds present Neuro: No focal deficits, no facial deformity, AO x3, power 5/5 in all limbs Urinary Catheter Management: Corral: Cath Placed During This Visit: yes Reason for Continuing Indwelling Catheter: Other Urinary Catheter Date of Insertion: 11/27/23 Discharge Data Studies Completed and Pending Completed Studies During Hospitalization Category Date Time Status CT chest abdomen pelvis [[place] [id number] Cat Scan 11/27/23 16:01 Completed ] Stat XR chest 1V portable [id number] Stat Exams 11/27/23 12:35 Completed Pending at discharge Category Date Time Status Anaerobic Culture Routine Lab 11/27/23 15:23 Results Blood Culture Stat Lab 11/27/23 13:08 Results Body Fluid Culture & GS Routine Lab 11/27/23 15:23 Results 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 IMPRESSION: No acute abdominal findings. Microbiology 11/27/23 18:32 Urine,Clean Catch Urine Culture - Preliminary Gram Negative Rods 11/28/23 17:31 Peritoneal Fluid Gram Stain - Final 11/27/23 13:08 Blood Blood Culture - Preliminary NEGATIVE TO DATE 11/27/23 13:06 Blood Blood Culture - Preliminary NEGATIVE TO DATE 11/27/23 16:45 Unknown Source Legionella Urinary Antigen - Final 11/27/23 16:45 Urine Kidney Bacterial Antigens - Final Laboratory Results WBC 11.47 10^3/uL (3.29-11.43) H 11/29/23 07:14 RBC 2.97 10^6/uL (3.85-5.65) L 11/29/23 07:14 Hgb 9.20 g/dL (11.27-16.99) L 11/29/23 07:14 Hct 29.2 % (36-47) L 11/29/23 07:14 MCV 98.3 fl (85-98) H 11/29/23 07:14 MCH 31.0 pg (27-33) 11/29/23 07:14 MCHC 31.5 g/dL (30-55) D 11/29/23 07:14 RDW 12.6 % (12.1-15.1) 11/29/23 07:14 Plt Count 225 10^3/cmm (157-399) 11/29/23 07:14 MPV 9.9 fL (7.4-10.4) 11/29/23 07:14 Neut % (Auto) 74.5 % 11/29/23 07:14 Lymph % (Auto) 14.9 % 11/29/23 07:14 [place] % (Auto) 6.2 % 11/29/23 07:14 Eos % (Auto) 3.4 % 11/29/23 07:14 Baso % (Auto) 0.4 % 11/29/23 07:14 Neut # (Auto) 8.54 10^3/uL (1.8-7.7) H 11/29/23 07:14 Lymph # (Auto) 1.7 10^3/uL (0.8-4.8) 11/29/23 07:14 [place] # (Auto) 0.7 10^3/uL (0.2-0.9) 11/29/23 07:14 Eos # (Auto) 0.4 10^3/uL (0.0-0.8) 11/29/23 07:14 Baso # (Auto) 0.1 10^3/uL (0.0-0.1) 11/29/23 07:14 Nucleated RBC % (auto) 0 % 11/29/23 07:14 Nucleated RBCs # 0.0 /100WBC 11/29/23 07:14 Differential Comment Yes 11/28/23 17:31 Specimen Type Arterial 11/27/23 13:41 Sample Site Brachial, left 11/27/23 13:41 ABG pH 7.48 (7.35-7.45) H 11/27/23 13:41 ABG pCO2 39.3 mmHg (35-45) 11/27/23 13:41 ABG pO2 75.6 mmHg (80.0-100.0) L 11/27/23 13:41 ABG PO2/FiO2 Ratio 0 11/27/23 13:41 ABG HCO3 29.0 mmol/L (22-26) H 11/27/23 13:41 ABG Base Excess 5.1 mmol/L (-2.0-2.0) H 11/27/23 13:41 Jorge Test Pos 11/27/23 13:41 Hematocrit 32.8 % (37-47) L 11/27/23 13:41 Hgb O2 Saturation 94.6 % (95-100) L 11/27/23 13:41 Carboxyhemoglobin 1.4 %THgb (0.4-20.1) 11/27/23 13:41 Methemoglobin 0.3 % (0.4-1.5) L 11/27/23 13:41 Total Hemoglobin 10.7 g/dL (12-16) L 11/27/23 13:41 O2 Delivery Device Nc 11/27/23 13:41 O2 Liters/Min 2.0 % 11/27/23 13:41 FiO2 28.0 % 11/27/23 13:41 Principal Bioinformatics Specialist ID Cak 11/27/23 13:41 Sodium 140 mmol/L (136-145) 11/29/23 07:14 Potassium 3.6 mmol/L (3.5-5.1) 11/29/23 07:14 Chloride 100 mmol/L (98-107) 11/29/23 07:14 Carbon Dioxide 27 mmol/L (22-29) 11/29/23 07:14 Anion Gap 16.6 (5-19) 11/29/23 07:14 BUN 44 mg/dL (8-23) H 11/29/23 07:14 Creatinine 3.6 mg/dL (0.5-0.9) H 11/29/23 07:14 GFR Calculation Not Reportable 11/29/23 07:14 Glucose 95 mg/dL (65-115) 11/29/23 07:14 POC Glucose 258 mg/dL (70-110) H 11/29/23 11:33 Estimat Average Glucose 163 11/28/23 05:32 Hemoglobin A1c 7.3 % (4.0-6.0) H 11/28/23 05:32 Calculated Osmolality 301 mOsm/kg (285-295) H 11/29/23 07:14 Calcium 8.8 mg/dL (8.5-10.5) 11/29/23 07:14 Phosphorus 4.3 mg/dL (2.5-4.5) 11/28/23 05:32 Magnesium 1.9 mg/dL (1.7-2.3) 11/28/23 05:32 Iron 27 ug/dL (37-145) L 11/27/23 13:08 TIBC 212 mcg/dl 11/27/23 13:08 % Saturation 12.7 % (20-50) L 11/27/23 13:08 Unsat Iron Binding 185 ug/dL (112-347) 11/27/23 13:08 Total Bilirubin 0.3 mg/dL (0.15-1.2) 11/29/23 07:14 AST 10 U/L (0-32) 11/29/23 07:14 ALT 14 U/L (0-33) 11/29/23 07:14 Alkaline Phosphatase 74 U/L (35-105) 11/29/23 07:14 NT-Pro-B Natriuret Pep 2210 pg/mL (0-450) H 11/27/23 13:08 Total Protein 5.8 g/dL (6.6-8.7) L 11/29/23 07:14 Albumin 3.0 g/dL (3.5-5.2) L 11/29/23 07:14 Globulin 2.8 g/dL (1.3-4.6) 11/29/23 07:14 Triglycerides 76 mg/dL (0-150) 11/28/23 05:32 Cholesterol 107 mg/dL (0-200) 11/28/23 05:32 LDL Cholesterol, Calc 41 mg/dL (50-129) L 11/28/23 05:32 HDL Cholesterol 51 mg/dL (60-100) L 11/28/23 05:32 LDL/HDL Ratio 0.80 RATIO (0.00-3.22) 11/28/23 05:32 Cholesterol/HDL Ratio 2.10 mg/dL (0.0-4.40) 11/28/23 05:32 Vitamin B12 1149 pg/mL (232-1245) 11/27/23 13:08 Folate > 20.0 ng/mL (4.8-37.3) 11/28/23 05:32 Procalcitonin 0.18 ng/mL (0-0.5) 11/28/23 05:32 TSH 18.03 uIU/mL (0.27-4.20) H 11/27/23 13:08 Free T4 1.50 ng/dL (0.82-1.77) 11/27/23 13:08 Free T3 1.6 PG/ML (2.0-4.4) L 11/27/23 13:08 Urine Color Yellow (Yellow) 11/27/23 18:32 Urine Appearance Cloudy (CLEAR) A 11/27/23 18:32 Urine pH 6 (5-7) 11/27/23 18:32 Ur Specific [place] 1.005 (1.005-1.030) 11/27/23 18:32 Urine Protein 3+ (Negative) H 11/27/23 18:32 Urine Glucose (UA) Norm (Normal) 11/27/23 18:32 Urine Ketones Negative (Negative) 11/27/23 18:32 Urine Blood 3+ (Negative) H 11/27/23 18:32 Urine Nitrate Negative (Negative) 11/27/23 18:32 Urine Bilirubin Neg (Negative) 11/27/23 18:32 Urine Urobilinogen Neg mg/dL (Negative) 11/27/23 18:32 Ur Leukocyte Esterase 2+ (Negative) H 11/27/23 18:32 Urine RBC 50-80 /hpf (0-2) H 11/27/23 18:32 Urine WBC 80-100 /hpf (0-5) H 11/27/23 18:32 Ur Eosinophil Smear 0 (0-0) 11/27/23 18:32 Ur Squamous Epith Cells 0-4 /hpf (0-5) H 11/27/23 18:32 Amorphous Sediment Not Reportable 11/27/23 18:32 Urine Bacteria 2+ /hpf (NONE) H 11/27/23 18:32 Urine Mucus 1+ /hpf 11/27/23 18:32 Urine Eosinophils No eosinophils seen 11/27/23 18:32 Urine Creatinine 60 mg/dL (28-217) 11/27/23 18:32 Fluid Color Pale yellow 11/28/23 17:31 Fluid Appearance Clear 11/28/23 17:31 Fluid Specific Grav 1.005 11/28/23 17:31 Fluid pH 7.0 11/28/23 17:31 Fluid WBC 46 /uL 11/28/23 17:31 Fluid RBC 0 10^3/uL 11/28/23 17:31 Fld Polynuclear WBCs # 0.009 11/28/23 17:31 Fld Polynuclear WBCs % 19.600 % 11/28/23 17:31 Fl Mononucl WBCs #(Auto) 0.037 11/28/23 17:31 Fl Mononuclear % Auto 80.400 % 11/28/23 17:31 Fld Crystal Laterality Right upper 11/28/23 17:31 Fluid Glucose 728.0 mg/dL 11/28/23 17:31 Fluid Total Protein 0.2 g/dL 11/28/23 17:31 Fluid Albumin 0.3 g/dL 11/28/23 17:31 Fluid LDH 11 U/L 11/28/23 17:31 Fluid Amylase 3 U/L 11/28/23 17:31 Fluid Alk Phosphatase 5 IU/L 11/28/23 17:31 Fluid Cholesterol 9 mg/dL (0-200) 11/28/23 17:31 Fluid Triglycerides 11 mg/dL (0-150) 11/28/23 17:31 Fluid Uric Acid 6 mg/dL 11/28/23 17:31 Adenovirus (PCR) Not detected (NOT DETECT) 11/27/23 18:32 C. pneumoniae DNA (PCR) Not detected (NOT DETECT) 11/27/23 18:32 Coronavirus 229E (PCR) Not detected (NOT DETECT) 11/27/23 18:32 Human Metapneumovir PCR Not detected (NOT DETECT) 11/27/23 18:32 Influenza A (H1) PCR Not detected (NOT DETECT) 11/27/23 18:32 Influ A (H1/09) PCR Not detected (NOT DETECT) 11/27/23 18:32 Influenza A (H3) PCR Not detected (NOT DETECT) 11/27/23 18:32 Influenza Type A Ag negative (Negative) 11/27/23 13:06 Influenza Type A (PCR) Not detected (NOT DETECT) 11/27/23 18:32 Influenza Type B Ag negative (Negative) 11/27/23 13:06 Influenza Type B (PCR) Not detected (NOT DETECT) 11/27/23 18:32 M. pneumoniae (PCR) Not detected (NOT DETECT) 11/27/23 18:32 Parainfluenza 1 (PCR) Not detected (NOT DETECT) 11/27/23 18:32 Parainfluenza 2 (PCR) Not detected (NOT DETECT) 11/27/23 18:32 Parainfluenza 3 (PCR) Not detected (NOT DETECT) 11/27/23 18:32 Parainfluenza 4 (PCR) Not detected (NOT DETECT) 11/27/23 18:32 RSV Type A (PCR) Not detected (NOT DETECT) 11/27/23 18:32 RSV Type B (PCR) Not detected (NOT DETECT) 11/27/23 18:32 Entero/Rhino (PCR) Not detected (NOT DETECT) 11/27/23 18:32 SARS-CoV-2 (PCR) Not detected (NOT DETECT) 11/27/23 18:32 SARS-CoV-2 Ag (Rapid) negative (Negative) 11/27/23 13:06 Vitals Last Vital Signs Temp 97.7 F 11/29/23 12:00 Pulse 75 11/29/23 12:00 Resp 16 11/29/23 12:00 BP 151/72 11/29/23 12:00 Pulse Ox 93 11/29/23 12:00 O2 Del Method Nasal Cannula 11/29/23 12:00 O2 Flow Rate 1 11/29/23 09:06 Discharge Plan Discharge Patient Disposition: Home Condition: Stable Prescriptions: New linezolid 600 mg tablet 600 mg PO Q12H Qty: 10 0RF metolazone 5 mg tablet 5 mg PO EVERY OTHER DAY Qty: 30 0RF Continued docusate sodium 100 mg capsule 100 mg PO QPM Eliquis 5 mg tablet 2.5 mg PO BID Qty: 90 3RF Rx Instructions: 340 B (DME) Contour Next Test Strips Strip See Rx Instructions .ROUTE .COMPLEX Qty: 300 6RF Dose Instruction: USE 1 STRIP TO CHECK GLUCOSE THREE TIMES DAILY Rx Instructions: USE 1 STRIP TO CHECK GLUCOSE THREE TIMES DAILY (DME) blood-glucose meter [OneTouch Ultra2 Meter] Misc See Rx Instructions .Route Qty: 1 0RF Rx Instructions: As directed (DME) lancets [OneTouch Delica Plus Lancet] 33 gauge misc See Rx Instructions .Route Qty: 100 12RF Rx Instructions: As directed (DME) pen needle, diabetic [BD Ultra-Fine Short Pen Needle] 31 gauge x 5/16 needle See Rx Instructions .ROUTE .COMPLEX Qty: 100 6RF Dose Instruction: USE TO INJECT INSULIN 2-3 TIMES A DAY Rx Instructions: USE TO INJECT INSULIN 2-3 TIMES A DAY (DME) OneTouch Ultra Test Strip See Rx Instructions .ROUTE .COMPLEX Qty: 200 3RF Dose Instruction: USE TO CHECK GLUCOSE THREE TIMES DAILY Rx Instructions: USE TO CHECK GLUCOSE THREE TIMES DAILY amlodipine 5 mg tablet 5 mg PO DAILY gentamicin 0.1 % cream See Rx Instructions .ROUTE .COMPLEX Rx Instructions: APPLY TO EXIT SITE DAILY CoQ-10 100 mg Capsule 100 mg PO BEDTIME losartan 50 mg tablet 50 mg PO QAM RenaPlex-D 800 mcg-12.5 mg -2,000 unit tablet 1 tab PO DAILY furosemide 40 mg tablet 80 mg PO BID atorvastatin 40 mg tablet 40 mg PO QPM levothyroxine 75 mcg tablet 75 mcg PO QAM Rx Instructions: 30 MINUTES BEFORE BREAKFAST WITH WATER ONLY mirtazapine 15 mg tablet 15 mg PO BEDTIME doxazosin 2 mg tablet 2 mg PO BEDTIME amiodarone 100 mg tablet 50 mg PO BID potassium chloride 20 mEq tablet extended release 10 meq PO BEDTIME levofloxacin 500 mg tablet 500 mg PO DAILY Qty: 5 0RF Rx Instructions: for 5 days (rx filled 11/27/23 not picked up) Changed Lantus Solostar U-100 Insulin 100 unit/mL (3 mL) insulin pen See Rx Instructions .ROUTE .COMPLEX Qty: 15 0RF Rx Instructions: 35 unit subcutaneously in the am only Discharge Orders: Discharge Order (Routine); Ordered 11/29/23 Ordered By: Fidel Steinberg Referrals: Mann Garduno MD [Primary Care Provider] - 4-7 days Discharge Diet: Cardiac and Diabetic Discharge Activity: Resume usual activity and Increase activity as tolerated Patient Instructions: Opioid Safety, Pain Management Activity Restrictions/Additional Instructions: Your target blood sugar fasting should be 100-1 20, at night should be around 140. Continue taking your Lantus 35 units in the morning. Do not take Lantus at night. Take linezolid and Levaquin which are the antibiotics for next 5 days. Continuing all your medications as before. Metolazone 5 mg every other day has been made to your medication list for water pill. Please follow-up with a primary care provider within next 1 week and with a timber spotter within next 2 weeks. Discharge Attestations Time Spent in Discharge Care*: greater than 30 min Specific Discharge Activities: educating patient, educating and/or supporting family/caregiver, discussing with heel caser/social workers/dc planners, documenting/other paperwork and evaluating patient/reviewing data Status at Discharge: Cognitive status at discharge: cognitively intact , Behavioral status at discharge: cooperative , Functional status at discharge: other assisted ambulation , Overall status at discharge: patient is back to baseline Quality Metrics Clinical Quality Measures [ No reported AMI, CVA or VTE this stay] Coding Level of Care Code 67325 Total time (in minutes) for Discharge: 60 Diagnoses ESRD on peritoneal dialysis N18.6; Z99.2 Chronic diastolic congestive heart failure I50.32 Heart failure type: diastolic Heart failure chronicity: chronic Paroxysmal atrial fibrillation I48.0 Atrial fibrillation type: paroxysmal Type 2 diabetes mellitus with chronic kidney disease on chronic dialysis, with long-term current use of insulin E11.22; N18.6; Z79.4; Z99.2 Diabetes mellitus type: type 2 Diabetes mellitus skilled nursing insulin use: with moth exterminator use Diabetes mellitus complication status: with kidney complications Diabetes mellitus complication detail: with chronic kidney disease Chronic kidney disease stage: on chronic dialysis Leukocytosis D72.829 Hypoxemia R09.02 Hypoglycemia associated with type 2 diabetes mellitus E11.649
--- NOTE | 2023-11-29 12:49 | P.PN_ITS ---
Subjective 2 Subjective: doing better Medications: Reviewed: Yes Vitals/I&O/Wt Last Vital Signs Temp 97.7 F 11/29/23 12:00 Pulse 75 11/29/23 12:00 Resp 16 11/29/23 12:00 BP 151/72 11/29/23 12:00 Pulse Ox 93 11/29/23 12:00 O2 Del Method Nasal Cannula 11/29/23 12:00 O2 Flow Rate 1 11/29/23 09:06 11/28/23 11/29/23 11/29/23 21:59 06:59 14:59 Intake Total 890 / 890 Output Total Balance 890 / 890 Weight last 48 hrs Weight 88.088 kg Weight 89.131 kg Weight 87.628 kg Weight 87.589 kg Weight 88.451 kg Physical Exam 2 Narrative: AWAKE , ALERT ON 2L NC NO DISTRESS NO EDEMA Urinary Catheter Management: Corral: Cath Placed During This Visit: yes Reason for Continuing Indwelling Catheter: Other Urinary Catheter Date of Insertion: 11/27/23 Data 11/29/23 07:14 11/29/23 07:14 Micro: Microbiology 11/27/23 18:32 Urine Culture - Preliminary Urine,Clean Catch Gram Negative Rods 11/28/23 17:31 Gram Stain - Final Peritoneal Fluid 11/27/23 13:08 Blood Culture - Preliminary Blood NEGATIVE TO DATE 11/27/23 13:06 Blood Culture - Preliminary Blood NEGATIVE TO DATE A&P Assessment and plan (1) ESRD on peritoneal dialysis: Plan 1. End-stage renal disease: On peritoneal dialysis, patient does 1 exchange with 2.5% solution with a 6-hour dwell. Given absence of nausea vomiting or abdominal pain or tenderness , and no evidence of cloudy dialysate--> given these findings, suspicion for peritonitis is very low -PD fluid cultures have been ordered, will follow -Will add 2 exchanges with - 2.5% solution X 1 4.25% solution X1 today -Will add nystatin as patient is on antibiotics for prophylaxis for fungal peritonitis -2 g sodium restriction and 1500 mill fluid restriction 2. Question sepsis, UTI related versus pneumonia, antibiotics per medicine team 3. Volume overload with pulmonary edema, UF as above with PD 4. History of atrial fibrillation 5. Anemia: Hemoglobin at goal, monitor Discussed with patient daughter at bedside Patient evaluated using audiovisual cart. Time spent 20 minutes. Attestations 2 Medical Necessity Statement*: per krystinak Coding Level of Care Code Acute Code for Chg Fwd Diagnoses ESRD on peritoneal dialysis N18.6; Z99.2
[2023-11-29] MEDS: insulin lispro 100 unit/1 mL SUBCUT (13:01)
[2023-11-30 14:45] LABS: Methicillin-Resist S.aureu PCR NOT DETECTED (NOT DETECTED)
== END 2023-11-29 15:55 | disposition home or self-care (01) | DRG 814 ==
LOC: ER 15:23 → MEDSURG 15:38
PROVIDERS: Admitting Provider Student in an Organized Health Care Education/Training Program; Emergency Provider Emergency Medicine; PCP Family Medicine; Visit Provider Student in an Organized Health Care Education/Training Program
DX: D72.829 Elevated white blood cell count, unspecified (principal); N18.6 End stage renal disease; I13.2 Hypertensive heart and chronic kidney disease with heart failure and with stage 5 chronic kidney disease, or end stage renal disease; I50.32 Chronic diastolic (congestive) heart failure; I48.20 Chronic atrial fibrillation, unspecified; E11.649 Type 2 diabetes mellitus with hypoglycemia without coma; Z79.4 Long term (current) use of insulin; E11.22 Type 2 diabetes mellitus with diabetic chronic kidney disease; R09.02 Hypoxemia; Z79.01 Long term (current) use of anticoagulants; E03.9 Hypothyroidism, unspecified; Z87.891 Personal history of nicotine dependence; Z99.2 Dependence on renal dialysis; D64.9 Anemia, unspecified; E66.9 Obesity, unspecified; Z68.35 Body mass index [BMI] 35.0-35.9, adult; R82.71 Bacteriuria
CPT/HCPCS: 36415; 36416; 36600; 51702; 71045; 71250; 74176; 80053; 80061; 80503; 81001; 82042; 82150; 82465; 82570; 82607; 82746; 82805; 82945; 82962; 83036; 83540; 83550; 83615; 83735; 83880; 83986; 84075; 84100; 84145; 84157; 84315; 84439; 84443; 84478; 84481; 84560; 85025; 85999; 86140; 86403; 87015; 87040; 87070; 87075; 87077; 87086; 87116; 87186; 87205; 87206; 87426; 87449; 87486; 87581; 87633; 87641; 87801; 87804; 89050; 93005; 94640; 94760; 96365; 96367; 96372; 97110; 97161; 97530; 99285; J0456; J0696; J1815; J1940; J2185; J3370; J7050; J7626; Q0144; Q3014

== ENCOUNTER → 2024-01-25 09:14 | Outpatient (BNVA) | payer MEDICARE, SELFPAY | PROVIDERS: PCP Family Medicine; Visit Provider Nurse Practitioner Family | DX: I48.0 Paroxysmal atrial fibrillation (principal); I50.32 Chronic diastolic (congestive) heart failure; Z87.891 Personal history of nicotine dependence; I13.2 Hypertensive heart and chronic kidney disease with heart failure and with stage 5 chronic kidney disease, or end stage renal disease; E11.22 Type 2 diabetes mellitus with diabetic chronic kidney disease; N18.6 End stage renal disease; Z99.2 Dependence on renal dialysis; Z79.4 Long term (current) use of insulin; E11.65 Type 2 diabetes mellitus with hyperglycemia | CPT/HCPCS: 99214 ==

== ENCOUNTER 2024-01-27 12:36 | Emergency (ER) | payer MEDICARE, SELFPAY ==
[2024-01-27 12:45] VITALS: BP 142/55; PULSE 68; RESP 16; TEMP 36.7; O2SAT 91
--- NOTE | 2024-01-27 12:46 | XR_ITS ---
WS: [email or web address] Right foot, 2 views, 01/27/2024 Clinical Data: trauma Comparison: Right foot, 10/27/2022 Findings: No fractures or dislocations are seen. No bone destruction or erosion is noted. The joint spaces show minimal narrowing. There are vascular calcifications in the arteries of the foot. There is internal fixation of a bimalleolar fracture. XR/XR foot RT min 3V* [id number] Impression: Negative for fracture or dislocation of the right foot.
--- NOTE | 2024-01-27 12:46 | XR_ITS ---
WS: [email or web address] Right hip, 2 views, AP pelvis, 01/27/2024 Clinical Data: trauma Comparison: None. Findings: No fractures or dislocations are seen. The hips show mild osteoarthritis. The soft tissues are not re markable. The adjacent pelvis is normal. There is a peritoneal catheter curled in the true pelvis. Vascular calcifications are seen. XR/XR hip RT 2-3V wo/w pel* [id number] Impression: Negative for pelvic or hip fractures.
--- NOTE | 2024-01-27 12:47 | ECG_ITS ---
[facility] Date: 2024-01-27 Pat Name: Luiza Cooper Department: Room: Gender: Female Stump Shooter: : 1940 Requested By: Zachariah Rondon Order Number: [id number] Casper MD: Liliane Almendarez M.D. Measurements Intervals [place] Rate: 66 P: 43 HI: 209 QRS: 75 QRSD: 97 T: 92 QT: 430 QTc: 451 Interpretive Statements SINUS RHYTHM LOW QRS VOLTAGE IN PRECORDIAL LEADS [QRS DEFLECTION < 1.0 mV IN CHEST LEADS] SEPTAL MYOCARDIAL INFARCTION , PROBABLY OLD [40+ ms Q WAVE IN V1/V2] Compared to ECG 11/27/2023 12:52:53 No significant changes Electronically Signed On 01-27-2024 20:02:34 CDT by Liliane Almendarez M.D. [email or web address]
--- NOTE | 2024-01-27 13:18 | W.ED.FALL ---
HPI - Fall General: Chief Complaint: Fall Stated Complaint: fall Time Seen by Provider: 01/27/24 12:46 Source: patient Mode of arrival: ambulatory History of Present Illness: 83-year-old female presents emergency room after slipping and falling off of a bench landing on her right side she has severe pain she is unable to stand well. She did not strike her head did not lose consciousness. Denies any other injuries. MD complaint: fall Onset (ago): minute(s) Fall from: chair Fall witnessed: yes, by family Place fall occurred: other Loss of consciousness: None Prolonged down time: no Symptoms prior to fall: none Location of injury: other (R hip) Associated symptoms-after fall: Denies abdominal pain, chest pain, confusion, difficulty walking, headache(s), hematuria, lightheadedness, neck pain, numbness, short of breath, vertigo or weakness Review of Systems Const: Denies: fever(s) or chills Card: Denies: chest pain or lightheadedness Resp: Denies: dyspnea GI: Denies: abdominal pain : Denies: dysuria, urinary frequency, urinary urgency or hematuria Musc: Reports: joint pain; Denies: neck pain Skin/Breast: Denies: rash Neuro: Denies: headache(s), difficulty walking, vertigo or confusion PFSH ED PFSH: Medical History Hypoglycemia associated with type 2 diabetes mellitus Pneumonia due to COVID-19 virus ESRD on peritoneal dialysis Atrial fibrillation Acute kidney injury superimposed on CKD Pneumonia Osteoarthritis (arthritis due to wear and tear of joints) Altered mental status Meningioma Anemia COVID-19 resolved Hypothyroidism GERD (gastroesophageal reflux disease) HTN (hypertension) CHF (congestive heart failure) CKD (chronic kidney disease) Diabetes Surgical History Peritoneal dialysis catheter in situ (06/26/21) History of ankle surgery S/P tonsillectomy Status post tubal ligation S/P cataract extraction S/P cervical spinal fusion Family History Mother Hypertension Grandmother Hypertension MATERNAL Other Cancer Diabetes Social History Smoking and tobacco/nicotine status: former use of tobacco/nicotine Quit status (tobacco/nicotine): has quit using Year quit tobacco: 1977 [id number] Second hand smoke exposure: Yes Alcohol intake: never Substance/Drug Use: never Caregiver/support person: Yes Lives independently: Yes Household members: spouse and children Housing: House Marital status: Current occupational status: retired Pets and animals: Yes Do you think of yourself as: Straight/Heterosexual Current gender identity: Female Physical Exam Const: GENERAL APPEARANCE: cooperative and comfortable ORIENTATION/CONSCIOUSNESS: Yes awake, Yes oriented to person, Yes oriented to place and Yes oriented to time HENMT: COMMON NORMALS: normocephalic, atraumatic and hearing grossly normal bilaterally HEAD & SCALP: normocephalic and atraumatic Resp: COMMON NORMALS: normal respiratory effort, No retractions, No use of accessory muscles and clear to auscultation bilaterally AUSCULTATION: clear to auscultation bilaterally Cardio: COMMON NORMALS: regular rate, regular rhythm and No murmurs present (Cardio) RATE: regular rate RHYTHM: regular rhythm GI: COMMON NORMALS: Soft to palpation and No hepatosplenomegaly present AUSCULTATION: Yes normoactive bowel sounds PALPATION: Yes Soft to palpation, No Tenderness to palpation present (GI), No Guarding due to palpation present (GI) and Yes No hepatosplenomegaly present Extremity: COMMON NORMALS: normal to inspection, capillary refill normal, no clubbing, cyanosis or edema, no calf tenderness and no pedal edema OTHER: Right leg externally rotated dorsalis pedis posterior tibialis pulses palpated are normal sensation normal. No deformity the ankle or knee on the right. Neuro: SENSORIUM/ORIENTATION: Yes oriented to person, Yes oriented to place and Yes oriented to time Skin: COMMON NORMALS: no rashes or lesions noted GENERAL SKIN EXAM: no rashes or lesions noted Course Vital Signs: Vital signs: Vital Signs Temperature 98.0 F 01/27/24 12:45 Pulse Rate 68 01/27/24 12:45 Respiratory Rate 16 01/27/24 12:45 Blood Pressure 142/55 01/27/24 12:45 Pulse Oximetry 91 01/27/24 12:45 MDM - Fall Medical Decision Making Initial x-rays were negative is suspicious of a pelvic fracture based on the x-rays CT done confirmed pubic rami fracture. Patient be discharged home with hydrocodone to use as needed. In addition to this patient advised to use walker or wheelchair. She has those at home.. Encouraged to reach out to her primary care doctor to start physical therapy at home possibly home health. Return if pain not controlled. Medical Records I reviewed the patient's medical records. Lab Data I reviewed the patient's lab results. 01/27/24 13:37 01/27/24 13:37 Radiology Impressions Foot X-Ray 01/27/24 12:46 Impression: Negative for fracture or dislocation of the right foot. Hip/Pelvis X-Ray 01/27/24 12:46 Impression: Negative for pelvic or hip fractures. Pelvis CT 01/27/24 13:48 IMPRESSION: 1. Nondisplaced, mildly comminuted inferior RIGHT pubic rami fracture. 2. No hip fracture. 3. L4 anterolisthesis. Severe disc space degeneration at L4-5. Laboratory Results WBC 11.69 10^3/uL (3.29-11.43) H 01/27/24 13:37 RBC 3.21 10^6/uL (3.85-5.65) L 01/27/24 13:37 Hgb 10.10 g/dL (11.27-16.99) L 01/27/24 13:37 Hct 30.7 % (36-47) L 01/27/24 13:37 MCV 95.6 fl (85-98) 01/27/24 13:37 MCH 31.5 pg (27-33) 01/27/24 13:37 MCHC 32.9 g/dL (30-55) 01/27/24 13:37 RDW 12.9 % (12.1-15.1) 01/27/24 13:37 Plt Count 231 10^3/cmm (157-399) 01/27/24 13:37 MPV 9.4 fL (7.4-10.4) 01/27/24 13:37 Neut % (Auto) 80.2 % 01/27/24 13:37 Lymph % (Auto) 12.3 % 01/27/24 13:37 [place] % (Auto) 3.8 % 01/27/24 13:37 Eos % (Auto) 2.2 % 01/27/24 13:37 Baso % (Auto) 0.4 % 01/27/24 13:37 Neut # (Auto) 9.36 10^3/uL (1.8-7.7) H 01/27/24 13:37 Lymph # (Auto) 1.4 10^3/uL (0.8-4.8) 01/27/24 13:37 [place] # (Auto) 0.5 10^3/uL (0.2-0.9) 01/27/24 13:37 Eos # (Auto) 0.3 10^3/uL (0.0-0.8) 01/27/24 13:37 Baso # (Auto) 0.1 10^3/uL (0.0-0.1) 01/27/24 13:37 Nucleated RBC % (auto) 0 % 01/27/24 13:37 Nucleated RBCs # 0.0 /100WBC 01/27/24 13:37 Sodium 136 mmol/L (136-145) 01/27/24 13:37 Potassium 3.8 mmol/L (3.5-5.1) 01/27/24 13:37 Chloride 94 mmol/L (98-107) L 01/27/24 13:37 Carbon Dioxide 29 mmol/L (22-29) 01/27/24 13:37 Anion Gap 16.8 (5-19) 01/27/24 13:37 BUN 52 mg/dL (8-23) H 01/27/24 13:37 Creatinine 3.9 mg/dL (0.5-0.9) H 01/27/24 13:37 GFR Calculation Not Reportable 01/27/24 13:37 Glucose 224 mg/dL (65-115) H 01/27/24 13:37 Calculated Osmolality 303 mOsm/kg (285-295) H 01/27/24 13:37 Calcium 9.2 mg/dL (8.5-10.5) 01/27/24 13:37 Total Bilirubin 0.3 mg/dL (0.15-1.2) 01/27/24 13:37 AST 17 U/L (0-32) 01/27/24 13:37 ALT 21 U/L (0-33) 01/27/24 13:37 Alkaline Phosphatase 90 U/L (35-105) 01/27/24 13:37 Total Protein 6.4 g/dL (6.6-8.7) L 01/27/24 13:37 Albumin 3.5 g/dL (3.5-5.2) 01/27/24 13:37 Globulin 2.9 g/dL (1.3-4.6) 01/27/24 13:37 All radiology interpretation(s) finalized by discharge Discharge Plan Discharge Patient Disposition: Home Clinical Impression: Closed pelvic fracture Condition: Stable Prescriptions: New hydrocodone-acetaminophen 5-325 mg tablet 1 tab PO Q6H PRN (Reason: pain) Qty: 20 0RF No Action Eliquis 5 mg tablet 2.5 mg PO BID Qty: 90 3RF Rx Instructions: 340 B (DME) Contour Next Test Strips Strip See Rx Instructions .ROUTE .COMPLEX Qty: 300 6RF Dose Instruction: USE 1 STRIP TO CHECK GLUCOSE THREE TIMES DAILY Rx Instructions: USE 1 STRIP TO CHECK GLUCOSE THREE TIMES DAILY (DME) blood-glucose meter [OneTouch Ultra2 Meter] Misc See Rx Instructions .Route Qty: 1 0RF Rx Instructions: As directed (DME) lancets [OneTouch Delica Plus Lancet] 33 gauge misc See Rx Instructions .Route Qty: 100 12RF Rx Instructions: As directed (DME) pen needle, diabetic [BD Ultra-Fine Short Pen Needle] 31 gauge x 5/16 needle See Rx Instructions .ROUTE .COMPLEX Qty: 100 6RF Dose Instruction: USE TO INJECT INSULIN 2-3 TIMES A DAY Rx Instructions: USE TO INJECT INSULIN 2-3 TIMES A DAY (DME) OneTouch Ultra Test Strip See Rx Instructions .ROUTE .COMPLEX Qty: 200 3RF Dose Instruction: USE TO CHECK GLUCOSE THREE TIMES DAILY Rx Instructions: USE TO CHECK GLUCOSE THREE TIMES DAILY amlodipine 5 mg tablet 5 mg PO DAILY coenzyme Q10 [CoQ-10] 100 mg Capsule 100 mg PO BEDTIME losartan 50 mg tablet 50 mg PO QAM RenaPlex-D 800 mcg-12.5 mg -2,000 unit tablet 1 tab PO DAILY furosemide 40 mg tablet 80 mg PO BID atorvastatin 40 mg tablet 40 mg PO QPM levothyroxine 75 mcg tablet 75 mcg PO QAM Rx Instructions: 30 MINUTES BEFORE BREAKFAST WITH WATER ONLY mirtazapine 15 mg tablet 15 mg PO BEDTIME amiodarone 100 mg tablet 50 mg PO BID potassium chloride 20 mEq tablet extended release 10 meq PO BEDTIME pantoprazole 40 mg tablet,delayed release (DR/EC) 40 mg PO DAILY Miralax 17 gram/dose Powder 17 g PO DAILY doxazosin 2 mg tablet 2 mg PO BEDTIME Rx Instructions: PER RENAL Lantus Solostar U-100 Insulin 100 unit/mL (3 mL) insulin pen 42 unit SUBCUT QAM Rx Instructions: 35 unit subcutaneously in the am only Discharge Orders: Discharge ED (Routine); Ordered 01/27/24 Ordered By: Zachariah Brock Referrals: Mann Garduno MD [Primary Care Provider] - Discharge Diet: Usual diet Discharge Activity: Increase activity as tolerated Patient Instructions: Opioid Safety, Pain Management Activity Restrictions/Additional Instructions: Thank you for choosing [facility] for your healthcare needs today. Please realize this is an emergency room and that we are providing you with a medical screening exam and this may not be complete and all inclusive of all the testing and or work up that you may need to determine your ailment or severity of your illness. It is very important that you follow up as instructed or that you return to the Emergency Department should you have concerns or if your condition changes or worsens in any way. You were seen today after a fall you have a right pubic rami fracture. Recommend that you use your walker or wheelchair as needed to allow ambulation and transfer. You can use the hydrocodone as needed as well. Recommend you follow-up with your primary care doctor to arrange for home health and/or physical therapy. Coding Level of Care Code ED Electronics Parts Sales Representative for Maria G Grissom
[2024-01-27 13:45] LABS: Basophils # 0.1 10^3/uL (0.0-0.1); Basophils % 0.4 %; Eosinophils # 0.3 10^3/uL (0.0-0.8); Eosinophils % 2.2 %; Hematocrit 30.7 % (36-47); Lymphocytes # 1.4 10^3/uL (0.8-4.8); Lymphocytes % 12.3 %; Mean Corpuscular HGB Conc 32.9 g/dL (30-55); Mean Corpuscular Hemoglobin 31.5 pg (27-33); Mean Corpuscular Volume 95.6 fl (85-98); Mean Platelet Volume 9.4 fL (7.4-10.4); Monocytes # 0.5 10^3/uL (0.2-0.9); Monocytes % 3.8 %; Neutrophils # 9.36 10^3/uL (1.8-7.7); Neutrophils % 80.2 %; Nucleated Red Blood Cells % 0 %; Platelet Count 231 10^3/cmm (157-399); Red Blood Count 3.21 10^6/uL (3.85-5.65); Red Cell Distribution Width 12.9 % (12.1-15.1); White Blood Count 11.69 10^3/uL (3.29-11.43)
--- NOTE | 2024-01-27 13:48 | CT_ITS ---
WS: [id number] CT PELVIS NONCONTRAST HISTORY: Fall today. Pubic rami fractures. TECHNIQUE: Contiguous imaging is performed of the pelvis without contrast. Coronal and sagittal refor mats are reviewed. All CT scans at [facility] use at least one of these dose optimization alexander hniques: automated exposure control; mA and/or kV adjustment per patient size (includes targeted exam s where dose is matched to clinical indication); or iterative reconstruction. DLP: 593.99 mGy.cm COMPARISON: RIGHT hip 01/27/2024 Diffuse osteopenia. Bilateral hip joint narrowing. SI joints are normal. Mildly comminuted but nondis placed RIGHT inferior pubic rami fracture. L4 anterolisthesis by 7 mm. Severe disc space narrowing L4-5 and mild at L5-S1. Atherosclerotic calci fication in the distal aorta and iliac arteries. 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 There is air in the urinary bladder from recent instrumentation most likely. Atrophic uterus is midline. LEFT adnexal cyst 2.[address]/CT pelvis wo con [id number] IMPRESSION: 1. Nondisplaced, mildly comminuted inferior RIGHT pubic rami fracture. 2. No hip fracture. 3. L4 anterolisthesis. Severe disc space degeneration at L4-5.
[2024-01-27 14:01] LABS: Alanine Aminotransferase 21 U/L (0-33); Albumin Level 3.5 g/dL (3.5-5.2); Alkaline Phosphatase 90 U/L (35-105); Anion Gap 16.8 (5-19); Aspartate Amino Transferase 17 U/L (0-32); Blood Urea Nitrogen 52 mg/dL (8-23); Calcium 9.2 mg/dL (8.5-10.5); Carbon Dioxide 29 mmol/L (22-29); Chloride 94 mmol/L (98-107); Creatinine Clr Calc Pharmacy 11.1347; Globulin 2.9 g/dL (1.3-4.6); Glucose 224 mg/dL (65-115); Osmolality Calculated 303 mOsm/kg (285-295); Potassium 3.8 mmol/L (3.5-5.1); Sodium 136 mmol/L (136-145); Total Bilirubin 0.3 mg/dL (0.15-1.2); Total Protein 6.4 g/dL (6.6-8.7)
== END 2024-01-27 16:48 | disposition home or self-care (01) ==
PROVIDERS: Emergency Provider Family Medicine; PCP Family Medicine
DX: S32.591A Other specified fracture of right pubis, initial encounter for closed fracture (principal); Z79.01 Long term (current) use of anticoagulants; Z79.4 Long term (current) use of insulin; Z87.891 Personal history of nicotine dependence; E11.22 Type 2 diabetes mellitus with diabetic chronic kidney disease; I13.2 Hypertensive heart and chronic kidney disease with heart failure and with stage 5 chronic kidney disease, or end stage renal disease; N18.6 End stage renal disease; Z99.2 Dependence on renal dialysis; I50.9 Heart failure, unspecified; W07.XXXA Fall from chair, initial encounter
CPT/HCPCS: 36415; 72192; 73502; 73630; 80053; 85025; 93005; 99285

== ENCOUNTER 2024-01-28 13:21 | Inpatient (IN) | payer MEDICARE, SELFPAY ==
[2024-01-28 13:23] VITALS: BP 153/70; PULSE 84; RESP 16; TEMP 36.8; O2SAT 95; BMI 34.7
--- NOTE | 2024-01-28 13:37 | ED_ITS ---
HPI - Extremity Problem 2 General: Chief complaint: Extremity Injury, Lower Stated complaint: rt hip pain Time Seen by Provider: 01/28/24 13:34 Source: patient and EMS Mode of arrival: EMS Limitations: no limitations History of Present Illness: 83-year-old female seen here yesterday a fter a fall she had a CT it showed a right pelvic rami fracture. She was discharged home on pain medication she states that she has not been able to get out of bed or ambulate at home states that her is unable to lift her he states that she feels that she cannot take care of herself and needs to go to halfway she still having right hip pain denies pain elsewhere currently. Associated symptoms: Deny chest pain, fever(s) or rash Review of Systems 2 Const: Denies: fever(s), chills, body aches or change in appetite ENMT: Denies: throat pain or dental pain Card: Denies: chest pain Resp: Denies: dyspnea GI: Denies: abdominal pain, nausea, vomiting or diarrhea Musc: Reports: extremity pain; Denies: neck pain or back pain Skin/Breast: Denies: rash Neuro: Denies: headache(s) PFSH ED 2 PFSH: Medical History Hypoglycemia associated with type 2 diabetes mellitus Pneumonia due to COVID-19 virus ESRD on peritoneal dialysis Atrial fibrillation Acute kidney injury superimposed on CKD Pneumonia Osteoarthritis (arthritis due to wear and tear of joints) Altered mental status Meningioma Anemia COVID-19 resolved Hypothyroidism GERD (gastroesophageal reflux disease) HTN (hypertension) CHF (congestive heart failure) CKD (chronic kidney disease) Diabetes Surgical History Peritoneal dialysis catheter in situ (06/26/21) History of ankle surgery S/P tonsillectomy Status post tubal ligation S/P cataract extraction S/P cervical spinal fusion Family History Mother Hypertension Grandmother Hypertension MATERNAL Other Cancer Diabetes Social History Smoking and tobacco/nicotine status: former use of tobacco/nicotine Quit status (tobacco/nicotine): has quit using Year quit tobacco: 1977 [id number] Second hand smoke exposure: Yes Alcohol intake: never Substance/Drug Use: never Caregiver/support person: Yes Lives independently: Yes Household members: spouse and children Housing: House Marital status: Current occupational status: retired Pets and animals: Yes Do you think of yourself as: Straight/Heterosexual Current gender identity: Female Physical Exam 2 Const: COMMON NORMALS: no acute distress, patient oriented x3 and healthy appearing HENMT: COMMON NORMALS: normocephalic and atraumatic HEAD & SCALP: n ormocephalic and atraumatic Eye: COMMON NORMALS: conjunctivae normal CONJUNCTIVA: Yes conjunctivae normal Neck/C-Spine: COMMON NORMALS: full ROM and supple Chest: COMMONS NORMALS: normal inspection of the chest Resp: COMMON NORMALS: normal respiratory effort Cardio: COMMON NORMALS: regular rate RATE: regular rate Extremity: NARRATIVE EXTREMITY EXAM: Tenderness to right hip Neuro: COMMON NORMALS: patient oriented x3, moves all extremities and no focal motor deficits Psych: COMMON NORMALS: mental status grossly normal, Normal thought process present and cooperative THOUGHT PROCESS: Normal thought process present Skin: COMMON NORMALS: no rashes or lesions noted and no wounds GENERAL SKIN EXAM: no rashes or lesions noted Course 2 Vital Signs: Vital signs: Vital Signs Temperature 98.2 F 01/28/24 13:23 Pulse Rate 84 01/28/24 13:42 Respiratory Rate 16 01/28/24 13:42 Blood Pressure 153/70 01/28/24 13:42 Pulse Oximetry 95 01/28/24 13:42 Oxygen Delivery Me thod Nasal Cannula 01/28/24 13:42 MDM - Extremity (Nontraumatic) Medical Decision Making Patient presents after pelvic rami fracture yesterday she is unable to ambulate take care of herself will admit at this time for likely residential home placement Medical Records I reviewed the patient's medical records. Lab Data 01/28/24 13:28 01/28/24 13:28 Laboratory Results WBC 13.13 10^3/uL (3.29-11.43) H 01/28/24 13:28 RBC 3.58 10^6/uL (3.85-5.65) L 01/28/24 13:28 Hgb 11.20 g/dL (11.27-16.99) L 01/28/24 13:28 Hct 34.5 % (36-47) L 01/28/24 13:28 MCV 96.4 fl (85-98) 01/28/24 13:28 MCH 31.3 pg (27-33) 01/28/24 13:28 MCHC 32.5 g/dL (30-55) 01/28/24 13:28 RDW 13.2 % (12.1-15.1) 01/28/24 13:28 Plt Count 269 10^3/cmm (157-399) 01/28/24 13:28 MPV 10.2 fL (7.4-10.4) 01/28/24 13:28 Neut % (Auto) 81.0 % 01/28/24 13:28 Lymph % (Auto) 12.2 % 01/28/24 13:28 [place] % (Auto) 4.0 % 01/28/24 13:28 Eos % (Auto) 1.7 % 01/28/24 13:28 Baso % (Auto) 0.4 % 01/28/24 13:28 Neut # (Auto) 10.65 10^3/uL (1.8-7.7) H 01/28/24 13:28 Lymph # (Auto) 1.6 10^3/uL (0.8-4.8) 01/28/24 13:28 [place] # (Auto) 0.5 10^3/uL (0.2-0.9) 01/28/24 13:28 Eos # (Auto) 0.2 10^3/uL (0.0-0.8) 01/28/24 13:28 Baso # (Auto) 0.1 10^3/uL (0.0-0.1) 01/28/24 13:28 Nucleated RBC % (auto) 0 % 01/28/24 13:28 Nucleated RBCs # 0.0 /100WBC 01/28/24 13:28 PT 17.70 SECONDS (12.1-14.9) H 01/28/24 13:28 INR 1.41 (0.8-1.2) H 01/28/24 13:28 Sodium 138 mmol/L (136-145) 01/28/24 13:28 Potassium 4.2 mmol/L (3.5-5.1) 01/28/24 13:28 Carbon Dioxide 27 mmol/L (22-29) 01/28/24 13:28 GFR Calculation Not Reportable 01/28/24 13:28 Calcium 9.6 mg/dL (8.5-10.5) 01/28/24 13:28 No radiology studies performed this visit Discharge Plan Discharge Patient Disposition: Admitted As Inpatient Clinical Impression: Closed fracture of single pubic ramus of pelvis Condition: Stable Prescriptions: No Action Eliquis 5 mg tablet 2.5 mg PO BID Qty: 90 3RF Rx Instructions: 340 B (DME) Contour Next Test Strips Strip See Rx Instructions .ROUTE .COMPLEX Qty: 300 6RF Dose Instruction: USE 1 STRIP TO CHECK GLUCOSE THREE TIMES DAILY Rx Instructions: USE 1 STRIP TO CHECK GLUCOSE THREE TIMES DAILY (DME) blood-glucose meter [OneTouch Ultra2 Meter] Misc See Rx Instructions .Route Qty: 1 0RF Rx Instructions: As directed (DME) lancets [OneTouch Delica Plus Lancet] 33 gauge misc See Rx Instructions .Route Qty: 100 12RF Rx Instructions: As directed (DME) pen needle, diabetic [BD Ultra-Fine Short Pen Needle] 31 gauge x 5/16 needle See Rx Instructions .ROUTE .COMPLEX Qty: 100 6RF Dose Instruction: USE TO INJECT INSULIN 2-3 TIMES A DAY Rx Instructions: USE TO INJECT INSULIN 2-3 TIMES A DAY (DME) OneTouch Ultra Test Strip See Rx Instructions .ROUTE .COMPLEX Qty: 200 3RF Dose Instruction: USE TO CHECK GLUCOSE THREE TIMES DAILY Rx Instructions: USE TO CHECK GLUCOSE THREE TIMES DAILY amlodipine 5 mg tablet 5 mg PO DAILY coenzyme Q10 [CoQ-10] 100 mg Capsule 100 mg PO BEDTIME losartan 50 mg tablet 50 mg PO QAM RenaPlex-D 800 mcg-12.5 mg -2,000 unit tablet 1 tab PO DAILY furosemide 40 mg tablet 80 mg PO BID atorvastatin 40 mg tablet 40 mg PO QPM levothyroxine 75 mcg tablet 75 mcg PO QAM Rx Instructions: 30 MINUTES BEFORE BREAKFAST WITH WATER ONLY mirtazapine 15 mg tablet 15 mg PO BEDTIME amiodarone 100 mg tablet 50 mg PO BID potassium chloride 20 mEq tablet extended release 10 meq PO BEDTIME pantoprazole 40 mg tablet,delayed release (DR/EC) 40 mg PO DAILY polyethylene glycol 3350 [Miralax] 17 gram/dose Powder 17 g PO DAILY doxazosin 2 mg tablet 2 mg PO BEDTIME Rx Instructions: PER RENAL insulin glargine [Lantus Solostar U-100 Insulin] 100 unit/mL (3 mL) insulin pen 42 unit SUBCUT QAM hydrocodone-acetaminophen 5-325 mg tablet 1 tab PO Q6H PRN (Reason: pain) Qty: 20 0RF metolazone 5 mg tablet 5 mg PO EVERY OTHER DAY Referrals: Mann Garduno MD [Primary Care Provider] - Coding Level of Care Code ED Faucets Assembler for Maria G Grissom
[2024-01-28 13:42] VITALS: BP 153/70; PULSE 84; RESP 16; O2SAT 95
[2024-01-28 13:50] LABS: Basophils # 0.1 10^3/uL (0.0-0.1); Basophils % 0.4 %; Eosinophils # 0.2 10^3/uL (0.0-0.8); Eosinophils % 1.7 %; Hematocrit 34.5 % (36-47); Lymphocytes # 1.6 10^3/uL (0.8-4.8); Lymphocytes % 12.2 %; Mean Corpuscular HGB Conc 32.5 g/dL (30-55); Mean Corpuscular Hemoglobin 31.3 pg (27-33); Mean Corpuscular Volume 96.4 fl (85-98); Mean Platelet Volume 10.2 fL (7.4-10.4); Monocytes # 0.5 10^3/uL (0.2-0.9); Neutrophils # 10.65 10^3/uL (1.8-7.7); Nucleated Red Blood Cells % 0 %; Platelet Count 269 10^3/cmm (157-399); Red Blood Count 3.58 10^6/uL (3.85-5.65); Red Cell Distribution Width 13.2 % (12.1-15.1); White Blood Count 13.13 10^3/uL (3.29-11.43)
[2024-01-28 13:52] LABS: INR 1.41 (0.8-1.2)
[2024-01-28 13:58] LABS: Anion Gap 20.2 (5-19); Blood Urea Nitrogen 58 mg/dL (8-23); Calcium 9.6 mg/dL (8.5-10.5); Carbon Dioxide 27 mmol/L (22-29); Chloride 95 mmol/L (98-107); Creatinine Clr Calc Pharmacy 10.3394; Glucose 264 mg/dL (65-115); Osmolality Calculated 311 mOsm/kg (285-295); Potassium 4.2 mmol/L (3.5-5.1); Sodium 138 mmol/L (136-145)
--- NOTE | 2024-01-28 14:59 | PM.HP ---
Providers/Chief Complaint Admitting Physician: Leigh Ann Pena MD Primary Care Provider: Mann Garduno MD Chief Complaint: rt hip pain History of Present Illness Luiza Cooper is a 83 year old female who fell few days ago presented to the hospital because of unbearable pain not able to walk around requesting nursing placement. Patient is stating that she came out of assisted complex, she was sitting on a bench when she rolled over and landed on the ground and suffered pubic rami fracture which was diagnosed in the ER, she is denying syncope, seizure-like activity, dizziness, chest pain she was let go from the ER however she came back because of excruciating pain which she is not able to tolerate, she is a peritoneal dialysis patient, she is struggling to manage her daily activities without any assistance. Review of Systems Const: Denies: fever(s) Eyes: Denies: change in vision ENMT: Denies: throat pain Card: Denies: chest pain Resp: Reports: dyspnea GI: Denies: abdominal pain : Denies: flank pain Musc: Reports: back pain, extremity pain and joint redness; Denies: neck pain Skin/Breast: Denies: rash Neuro: Denies: headache(s) Medications/Allergies Home Medications Medication Instructions Recorded Confirmed Last Taken Type blood sugar diagnostic (Contour #300 ea 10/08/22 01/28/24 Unknown Rx Next Test Strips) blood-glucose meter (OneTouch #1 ea 10/13/22 01/28/24 Unknown Rx Ultra2 Meter) lancets 33 gauge (OneTouch Delica #100 ea 10/13/22 01/28/24 Unknown Rx Plus Lancet) apixaban 5 mg tablet (Eliquis) 2.5 mg (1/2 x 5 mg) PO BID #90 tabs 03/03/23 01/28/24 01/28/24 Rx pen needle, diabetic 31 gauge x #100 ea 10/27/23 01/28/24 Unknown Rx 5/16 (BD Ultra-Fine Short Pen Needle) blood sugar diagnostic (OneTouch #200 ea 11/19/23 01/28/24 Unknown Rx Ultra Test strips) amiodarone 100 mg tablet 50 mg PO BID 11/27/23 01/28/24 01/28/24 History amlodipine 5 mg tablet 5 mg PO DAILY 0301/28/24 01/28/24 History atorvastatin 40 mg tablet 40 mg PO QPM 11/27/23 01/28/24 01/27/24 History coenzyme Q10 100 mg capsule 100 mg PO BEDTIME 11/27/23 01/28/24 01/27/24 History (CoQ-10) furosemide 40 mg tablet 80 mg PO BID 11/27/23 01/28/24 01/27/24 History levothyroxine 75 mcg tablet 75 mcg PO QAM 11/27/23 01/28/24 01/28/24 History losartan 50 mg tablet 50 mg PO QAM 11/27/23 01/28/24 01/28/24 History mirtazapine 15 mg tablet 15 mg PO BEDTIME 11/27/23 01/28/24 01/27/24 History potassium chloride 20 mEq 10 meq PO BEDTIME 11/27/23 01/28/24 01/27/24 History tablet,extended release vit B,C-folic ac 800 mcg-zinc 12.5 1 tab PO DAILY 11/27/23 01/28/24 01/28/24 History mg-selen-D3 2,000 unit-vit E tablet (RenaPlex-D) doxazosin 2 mg tablet 2 mg PO BEDTIME 01/27/24 01/28/24 01/27/24 History hydrocodone 5 mg-acetaminophen 325 1 tab PO Q6H PRN pain #20 tabs 01/27/24 01/28/24 01/28/24 Rx mg tablet insulin glargine 100 unit/mL (3 42 unit SUBCUT QAM 01/27/24 01/28/24 01/28/24 History mL) subcutaneous pen (Lantus Solostar U-100 Insulin) pantoprazole 40 mg tablet,delayed 40 mg PO DAILY 01/27/24 01/28/24 01/28/24 History release polyethylene glycol 3350 17 17 g PO DAILY 01/27/24 01/28/24 01/28/24 History gram/dose oral powder (Miralax) metolazone 5 mg tablet 5 mg PO EVERY OTHER DAY 01/28/24 01/28/24 01/28/24 History Allergies Allergy/AdvReac Type Severity Reaction Status Date / Time Penicillins Allergy Intermediate rash Verified 01/28/24 13:27 PFSH Acute PFSH: Medical History Hypoglycemia associated with type 2 diabetes mellitus Pneumonia due to COVID-19 virus ESRD on peritoneal dialysis Atrial fibrillation Acute kidney injury superimposed on CKD Pneumonia Osteoarthritis (arthritis due to wear and tear of joints) Altered mental status Meningioma Anemia COVID-19 resolved Hypothyroidism GERD (gastroesophageal reflux disease) HTN (hypertension) CHF (congestive heart failure) CKD (chronic kidney disease) Diabetes Surgical History Peritoneal dialysis catheter in situ (06/26/21) History of ankle surgery S/P tonsillectomy Status post tubal ligation S/P cataract extraction S/P cervical spinal fusion Family History Mother Hypertension Grandmother Hypertension MATERNAL Other Cancer Diabetes Social History Smoking and tobacco/nicotine status: former use of tobacco/nicotine Quit status (tobacco/nicotine): has quit using Year quit tobacco: 1977 [id number] Second hand smoke exposure: Yes Alcohol intake: never Substance/Drug Use: never Caregiver/support person: Yes Lives independently: Yes Household members: spouse and children Housing: House Marital status: Current occupational status: retired Pets and animals: Yes Do you think of yourself as: Straight/Heterosexual Current gender identity: Female Vitals/I&O/Wt Last Vital Signs Temp 98.2 F 01/28/24 13:23 Pulse 84 01/28/24 13:42 Resp 16 01/28/24 13:42 BP 153/70 01/28/24 13:42 Pulse Ox 95 01/28/24 13:42 O2 Del Method Nasal Cannula 01/28/24 13:42 Weight last 48 hrs Weight 86.183 kg Physical Exam Narrative: Pleasant cooperative Fluid overloaded Lower extremity venous's dermatitis Signs of fluid overload present Peritoneal dialysis catheter in place Pleasant cooperative Nonfocal exam Currently on room air Pain at rest is bearable S1, S2 Currently on room air Nonfocal neuroexam pleasant and cooperative S1, S2 Data 01/28/24 13:28 01/28/24 13:28 A&P Assessment and plan (1) PVC (premature ventricular contraction): (2) Atrial fibrillation: Qualifiers: Atrial fibrillation type: paroxysmal Qualified Code(s): I48.0 - Paroxysmal atrial fibrillation (3) Diabetes: Qualifiers: Diabetes mellitus type: type 2 Diabetes mellitus fpc insulin use: with exterminator helper use Diabetes mellitus complication status: with kidney complications Diabetes mellitus complication detail: with chronic kidney disease Chronic kidney disease stage: on chronic dialysis Qualified Code(s): E11.22 - Type 2 diabetes mellitus with diabetic chronic kidney disease; N18.6 - End stage renal disease; Z79.4 - long term care administrator (current) use of insulin; Z99.2 - Dependence on renal dialysis (4) GERD (gastroesophageal reflux disease): Qualifiers: Esophagitis presence: without esophagitis Qualified Code(s): K21.9 - Gastro-esophageal reflux disease without esophagitis (5) ESRD on peritoneal dialysis: (6) Pubic ramus fracture: Plan Pubic rami fracture No sign of syncope Peritoneal dialysis patient Consult nephro Cardiac diet Continue Lasix Continue Eliquis which she takes for A-fib Currently rate controlled Nonfocal neuroexam Will request PT and shelter placement will be pursued if she is not able to do well with PT Currently full code Attestations Medical Necessity Statement*: More than 2 midnights anticipated Diagnoses PVC (premature ventricular contraction) I49.3 Paroxysmal atrial fibrillation I48.0 Atrial fibrillation type: paroxysmal Type 2 diabetes mellitus with chronic kidney disease on chronic dialysis, with long-term current use of insulin E11.22; N18.6; Z79.4; Z99.2 Diabetes mellitus type: type 2 Diabetes mellitus exterminator helper insulin use: with exterminator helper use Diabetes mellitus complication status: with kidney complications Diabetes mellitus complication detail: with chronic kidney disease Chronic kidney disease stage: on chronic dialysis Gastroesophageal reflux disease without esophagitis K21.9 Esophagitis presence: without esophagitis ESRD on peritoneal dialysis N18.6; Z99.2 Pubic ramus fracture S32.599A
[2024-01-28 15:08] VITALS: PULSE 81; RESP 16; O2SAT 95
[2024-01-28 16:08] VITALS: BMI 34.7
[2024-01-28] MEDS: apixaban 5 mg Tablet 2.5 MG PO (17:33)
[2024-01-28] MEDS: sennosides-docusate Tablet 2 TAB PO (17:33)
[2024-01-28] MEDS: amiodarone 200 mg Tablet 50 MG PO (17:33)
[2024-01-28 17:34] VITALS: RESP 16
[2024-01-28] MEDS: oxyCODONE-APAP 5-325 mg Tablet 1 TAB PO ×2 (17:34→23:32)
--- NOTE | 2024-01-28 18:45 | P.CONIM_ITS ---
Providers/Reason For Consult 2 Consulting Physician/Specialty*: ESRD /Nephrology Reason for Consult*: ESRD Attending Physician: Leigh Ann Pena MD Primary Care Provider: Mann Garduno MD History of Present Illness History of Present Illness Luiza Cooper is a 83 year old female Patient is 83-year-old female who has a past medical history of hypertension, diabetes, osteoarthritis, atrial fibrillation, hypothyroidism GERD, CHF presented to the emergency department after she had right hip pain. In the ER she was found to have stable vital signs, elevated WBC count of 13,000, potassium 4.2 and was found to have pubic rami fracture. Patient is admitted for physical therapy and assisted placement. Patient is on peritoneal dialysis at home and does 1 exchange of 1.5% dextrose solution with a dwell time of 6 hours/day. Review of Systems 2 Narrative: Other ROS negative Medications/Allergies Home Medications Medication Instructions Recorded Confirmed Last Taken Type blood sugar diagnostic (Contour #300 ea 10/08/22 01/28/24 Unknown Rx Next Test Strips) blood-glucose meter (OneTouch #1 ea 10/13/22 01/28/24 Unknown Rx Ultra2 Meter) lancets 33 gauge (OneTouch Delica #100 ea 10/13/22 01/28/24 Unknown Rx Plus Lancet) apixaban 5 mg tablet (Eliquis) 2.5 mg (1/2 x 5 mg) PO BID #90 tabs 03/03/23 01/28/24 01/28/24 Rx pen needle, diabetic 31 gauge x #100 ea 10/27/23 01/28/24 Unknown Rx 5/16 (BD Ultra-Fine Short Pen Needle) blood sugar diagnostic (OneTouch #200 ea 11/19/23 01/28/24 Unknown Rx Ultra Test strips) amiodarone 100 mg tablet 50 mg PO BID 11/27/23 01/28/24 01/28/24 History amlodipine 5 mg tablet 5 mg PO DAILY 11/27/23 01/28/24 01/28/24 History atorvastatin 40 mg tablet 40 mg PO QPM 11/27/23 01/28/24 01/27/24 History coenzyme Q10 100 mg capsule 100 mg PO BEDTIME 11/27/23 01/28/24 01/27/24 History (CoQ-10) furosemide 40 mg tablet 80 mg PO BID 03/05/1401/28/24 01/27/24 History levothyroxine 75 mcg tablet 75 mcg PO QAM 11/27/23 01/28/24 01/28/24 History losartan 50 mg tablet 50 mg PO QAM 11/27/23 01/28/24 01/28/24 History mirtazapine 15 mg tablet 15 mg PO BEDTIME 11/27/23 01/28/24 01/27/24 History potassium chloride 20 mEq 10 meq PO BEDTIME 11/27/23 01/28/24 01/27/24 History tablet,extended release vit B,C-folic ac 800 mcg-zinc 12.5 1 tab PO DAILY 11/27/23 01/28/24 01/28/24 History mg-selen-D3 2,000 unit-vit E tablet (RenaPlex-D) doxazosin 2 mg tablet 2 mg PO BEDTIME 01/27/24 01/28/24 01/27/24 History hydrocodone 5 mg-acetaminophen 325 1 tab PO Q6H PRN pain #20 tabs 01/27/24 01/28/24 01/28/24 Rx mg tablet insulin glargine 100 unit/mL (3 42 unit SUBCUT QA 01/27/24 01/28/24 01/28/24 History mL) subcutaneous pen (Lantus Solostar U-100 Insulin) pantoprazole 40 mg tablet,delayed 40 mg PO DAILY 01/27/24 01/28/24 01/28/24 History release polyethylene glycol 3350 17 17 g PO DAILY 01/27/24 01/28/24 01/28/24 History gram/dose oral powder (Miralax) metolazone 5 mg tablet 5 mg PO EVERY OTHER DAY 01/28/24 01/28/24 01/28/24 History Allergies Allergy/AdvReac Type Severity Reaction Status Date / Time Penicillins Allergy Intermediate rash Verified 01/28/24 13:27 Current Medications Generic Name Dose Route Start Last Admin Trade Name Freq PRN Reason Stop Dose Admin Amiodarone HCl 50 mg 01/28/24 18:00 01/28/24 17:33 Amiodarone 200 Mg Tablet PO 50 mg BID NIKO Administration Apixaban 2.5 mg 01/28/24 18:00 01/28/24 17:33 Apixaban 5 Mg Tablet PO 2.5 mg BID NIKO Administration Oxycodone/Acetaminophen 1 tab 01/28/24 15:27 01/28/24 17:34 Oxycodone-Apap 5-325 Mg Tablet PO 1 tab Q6H PRN Administration MODERATE PAIN Senna/Docusate Sodium 2 tab 01/28/24 18:00 01/28/24 17:33 Sennosides-Docusate Tablet PO 2 tab BID NIKO Administration PFSH Acute 2 PFSH: Medical History Hypoglycemia associated with type 2 diabetes mellitus Pneumonia due to COVID-19 virus ESRD on peritoneal dialysis Atrial fibrillation Acute kidney injury superimposed on CKD Pneumonia Osteoarthritis (arthritis due to wear and tear of joints) Altered mental status Meningioma Anemia COVID-19 resolved Hypothyroidism GERD (gastroesophageal reflux disease) HTN (hypertension) CHF (congestive heart failure) CKD (chronic kidney disease) Diabetes Surgical History Peritoneal dialysis catheter in situ (06/26/21) History of ankle surgery S/P tonsillectomy Status post tubal ligation S/P cataract extraction S/P cervical spinal fusion Family History Mother Hypertension Grandmother Hypertension MATERNAL Other Cancer Diabetes Social History Smoking and tobacco/nicotine status: former use of tobacco/nicotine Quit status (tobacco/nicotine): has quit using Year quit tobacco: 1978 [id number] Second hand smoke exposure: Yes Alcohol intake: never Substance/Drug Use: never Caregiver/support person: Yes Lives independently: Yes Household members: spouse and children Housing: House Marital status: Current occupational status: retired Pets and animals: Yes Do you think of yourself as: Straight/Heterosexual Current gender identity: Female Vitals/I&O/Wt Last Vital Signs Temp 98.2 F 01/28/24 13:23 Pulse 81 01/28/24 15:08 Resp 16 01/28/24 17:34 BP 153/70 01/28/24 13:42 Pulse Ox 95 01/28/24 15:08 O2 Del Method Room Air 01/28/24 16:08 01/28/24 01/28/2424 06:59 14:59 22:59 Intake Total 360 / 360 Balance 360 / 360 Weight last 48 hrs Weight 86.183 kg Weight 86.183 kg Physical Exam 2 Narrative: awake , alert no distress no edema Urinary Catheter Management: Corral: Cath Placed During This Visit: yes Reason for Continuing Indwelling Catheter: Required Immobilization for Trauma or Surgery or Anesthesia Urinary Catheter Date of Insertion: 01/28/24 Urinary Catheter Time of Insertion: 17:57 Data 01/28/24 13:28 01/28/24 13:28 A&P Assessment and plan (1) ESRD on peritoneal dialysis: Plan 1. End-stage renal disease: On peritoneal dialysis, patient does 1 exchange with 1.5% solution with a 6-hour dwell.- will continue -2 g sodium restriction and 1500 mill fluid restriction 2. Pubic ramus fracture 4. History of atrial fibrillation 5. Anemia: Hemoglobin at goal, monitor Patient evaluated using audiovisual cart. Time spent 20 minutes. Consult Attestations 2 Medical Necessity Statement: PER STEVE Coding Level of Care Code Acute Code for Chg Fwd Diagnoses ESRD on peritoneal dialysis N18.6; Z99.2
[2024-01-28] MEDS: potassium chloride ER 10 mEq Tablet PO (19:42)
[2024-01-28] MEDS: mirtazapine 15 mg Tablet PO (19:42)
[2024-01-28 23:32] VITALS: RESP 20
[2024-01-29] VITALS (9 sets, daily range): BP systolic 118–161; BP diastolic 59–85; PULSE 74–89; RESP 14–18; TEMP 36.4–36.8; O2SAT 90–96
[2024-01-29] MEDS: oxyCODONE-APAP 5-325 mg Tablet 1 TAB PO (05:26)
[2024-01-29] MEDS: levothyroxine 75 mcg Tablet PO (05:26)
[2024-01-29 05:39] LABS: Glucose Point of Care 58 mg/dL (70-110)
[2024-01-29 06:03] LABS: Glucose Point of Care 64 mg/dL (70-110)
[2024-01-29 06:07] LABS: Basophils # 0.1 10^3/uL (0.0-0.1); Basophils % 0.4 %; Eosinophils # 0.4 10^3/uL (0.0-0.8); Eosinophils % 3.7 %; Hematocrit 30.2 % (36-47); Lymphocytes # 1.7 10^3/uL (0.8-4.8); Lymphocytes % 14.7 %; Mean Corpuscular HGB Conc 32.8 g/dL (30-55); Mean Corpuscular Hemoglobin 31.6 pg (27-33); Mean Corpuscular Volume 96.5 fl (85-98); Mean Platelet Volume 9.9 fL (7.4-10.4); Monocytes # 0.6 10^3/uL (0.2-0.9); Neutrophils # 8.51 10^3/uL (1.8-7.7); Neutrophils % 75.7 %; Nucleated Red Blood Cells % 0 %; Platelet Count 218 10^3/cmm (157-399); Red Blood Count 3.13 10^6/uL (3.85-5.65); Red Cell Distribution Width 13.3 % (12.1-15.1); White Blood Count 11.26 10^3/uL (3.29-11.43)
[2024-01-29 06:33] LABS: Anion Gap 14.9 (5-19); Blood Urea Nitrogen 58 mg/dL (8-23); Calcium 9.2 mg/dL (8.5-10.5); Carbon Dioxide 29 mmol/L (22-29); Chloride 100 mmol/L (98-107); Creatinine Clr Calc Pharmacy 10.5192; Glucose 55 mg/dL (65-115); Magnesium 1.9 mg/dL (1.7-2.3); Osmolality Calculated 304 mOsm/kg (285-295); Potassium 3.9 mmol/L (3.5-5.1); Sodium 140 mmol/L (136-145)
--- NOTE | 2024-01-29 06:39 | PC.NURSE ---
Patient's blood glucose low. Patient provided orange juice and dileep crackers.
[2024-01-29 06:40] LABS: Glucose Point of Care 76 mg/dL (70-110)
--- NOTE | 2024-01-29 09:06 | PM.PN ---
Subjective Subjective: doing well Medications: Reviewed: Yes Vitals/I&O/Wt Last Vital Signs Temp 97.9 F 01/29/24 07:57 Pulse 87 01/29/24 07:57 Resp 16 01/29/24 07:57 BP 118/85 01/29/24 07:57 Pulse Ox 91 01/29/24 07:57 O2 Del Method Room Air 01/29/24 07:57 01/28/24 01/29/24 01/29/24 22:59 06:59 14:59 Intake Total 360 / 360 Output Total 850 / 850 100 / 950 Balance -490 / -490 -100 / -590 Weight last 48 hrs Weight 88.989 kg Weight 86.183 kg Weight 86.183 kg Physical Exam Narrative: AWAKE , ALERT ON 2L NC NO DISTRESS NO EDEMA Urinary Catheter Management: Corral: Cath Placed During This Visit: yes Reason for Continuing Indwelling Catheter: Required Immobilization for Trauma or Surgery or Anesthesia Urinary Catheter Date of Insertion: 01/28/24 Urinary Catheter Time of Insertion: 17:57 Data 01/29/24 05:11 01/29/24 05:11 A&P Assessment and plan (1) ESRD on peritoneal dialysis: Plan 1. End-stage renal disease: On peritoneal dialysis, patient does 1 exchange with 1.5% solution with a 6-hour dwell.- will continue -2 g sodium restriction and 1500 mill fluid restriction 2. Pubic ramus fracture 4. History of atrial fibrillation 5. Anemia: Hemoglobin at goal, monitor Patient evaluated using audiovisual cart. Time spent 20 minutes. Attestations Medical Necessity Statement*: [facility] C[facility] Level of Care Code Acute Code for Chg Fwd Diagnoses ESRD on peritoneal dialysis N18.6; Z99.2
--- NOTE | 2024-01-29 09:28 | PM.PN ---
Subjective Subjective: is willing to do peritoneal dialysis with help of nursing staff. Hemodynamics able PT recommended rehab Will get case management on board Complaining of mild pain Patient did not go for a bowel movement on daily basis, creatinine stable, Requiring oxygen, she will nail new zealander pulse ox readings were not accurate Vitals/I&O/Wt Last Vital Signs Temp 97.9 F 01/29/24 07:57 Pulse 87 01/29/24 07:57 Resp 16 01/29/24 07:57 BP 118/85 01/29/24 07:57 Pulse Ox 91 01/29/24 07:57 O2 Del Method Room Air 01/29/24 07:57 01/28/24 01/29/24 01/29/24 22:59 06:59 14:59 Intake Total 360 / 360 Output Total 850 / 850 100 / 950 Balance -490 / -490 -100 / -590 Weight last 48 hrs Weight 88.989 kg Weight 86.183 kg Weight 86.183 kg Physical Exam Narrative: Awake alert and alert Nonfocal neuroexam GCS 15 Currently on room air S1, S2 Signs of mild fluid overload Venous stasis dermatitis Pleasant and cooperative Urinary Catheter Management: Corral: Cath Placed During This Visit: yes Reason for Continuing Indwelling Catheter: Required Immobilization for Trauma or Surgery or Anesthesia Urinary Catheter Date of Insertion: 01/28/24 Urinary Catheter Time of Insertion: 17:57 Data 01/29/24 05:11 01/29/24 05:11 A&P Assessment and plan (1) PVC (premature ventricular contraction): (2) Atrial fibrillation: Qualifiers: Atrial fibrillation type: paroxysmal Qualified Code(s): I48.0 - Paroxysmal atrial fibrillation (3) Diabetes: Qualifiers: Diabetes mellitus type: type 2 Diabetes mellitus terminal make up operator insulin use: with custodial use Diabetes mellitus complication status: with kidney complications Diabetes mellitus complication detail: with chronic kidney disease Chronic kidney disease stage: on chronic dialysis Qualified Code(s): E11.22 - Type 2 diabetes mellitus with diabetic chronic kidney disease; N18.6 - End stage renal disease; Z79.4 - predatory animal exterminator (current) use of insulin; Z99.2 - Dependence on renal dialysis (4) ESRD on peritoneal dialysis: (5) Closed fracture of single pubic ramus of pelvis: Qualifiers: Encounter type: subsequent encounter Laterality: right (6) Pubic ramus fracture: (7) Hypoxemia: Plan Pubic rami fracture Patient is being monitored in ICU for pain management Will add bowel regimen Will need long term placement as per the physical therapy evaluation today Acute hypoxia: Resolved currently on room air She is wearing nail new zealander Hemodynamically stable Incisional disease peritoneal dialysis dependent, can do dialysis on daily basis with help of nursing staff. Nephro consulted Request BMP for tomorrow Change diet to renal Awaiting long term placement Full code A-fib without RVR continue anticoagulating agent and amiodarone Continue diuresis she has chronic venous stasis dermatitis and lower extremity swelling Attestations Medical Necessity Statement*: Awaiting placement Diagnoses PVC (premature ventricular contraction) I49.3 Paroxysmal atrial fibrillation I48.0 Atrial fibrillation type: paroxysmal Type 2 diabetes mellitus with chronic kidney disease on chronic dialysis, with long-term current use of insulin E11.22; N18.6; Z79.4; Z99.2 Diabetes mellitus type: type 2 Diabetes mellitus terminal make up operator insulin use: with custodial use Diabetes mellitus complication status: with kidney complications Diabetes mellitus complication detail: with chronic kidney disease Chronic kidney disease stage: on chronic dialysis ESRD on peritoneal dialysis N18.6; Z99.2 Closed fracture of single pubic ramus of pelvis S32.509A Encounter type: subsequent encounter Laterality: right Pubic ramus fracture S32.599A Hypoxemia R09.02
[2024-01-29] MEDS: amiodarone 200 mg Tablet 50 MG PO ×2 (09:35→17:48)
[2024-01-29] MEDS: amlodipine 5 mg Tablet PO (09:35)
[2024-01-29] MEDS: FUROsemide 40 mg Tablet 80 MG PO (09:36)
[2024-01-29] MEDS: sennosides-docusate Tablet 2 TAB PO ×2 (09:36→17:47)
[2024-01-29] MEDS: apixaban 5 mg Tablet 2.5 MG PO ×2 (09:37→17:48)
[2024-01-29 11:51] LABS: Glucose Point of Care 240 mg/dL (70-110)
[2024-01-29 16:48] LABS: Glucose Point of Care 353 mg/dL (70-110)
--- NOTE | 2024-01-29 17:10 | PC.OT ---
OT evaluation attempted with pt attempting to participate but in too much pain to continue; will attempt again at later time.
[2024-01-29 20:34] LABS: Glucose Point of Care 422 mg/dL (70-110)
[2024-01-29] MEDS: insulin lispro 100 unit/1 mL SUBCUT (21:09)
[2024-01-29] MEDS: potassium chloride ER 10 mEq Tablet PO (21:10)
[2024-01-29] MEDS: mirtazapine 15 mg Tablet PO (21:10)
[2024-01-30] VITALS (7 sets, daily range): BP systolic 137–152; BP diastolic 64–73; PULSE 72–81; RESP 16–18; TEMP 36.5–37.4; O2SAT 90–95
[2024-01-30] MEDS: levothyroxine 75 mcg Tablet PO (05:15)
[2024-01-30] MEDS: insulin glargine 100 units/1 mL 35 UNIT SUBCUT (06:01)
[2024-01-30 06:32] LABS: Glucose Point of Care 178 mg/dL (70-110)
[2024-01-30 06:35] LABS: Anion Gap 17.4 (5-19); Blood Urea Nitrogen 53 mg/dL (8-23); Calcium 8.7 mg/dL (8.5-10.5); Carbon Dioxide 26 mmol/L (22-29); Chloride 94 mmol/L (98-107); Creatinine Clr Calc Pharmacy 12.0467; Glucose 150 mg/dL (65-115); Osmolality Calculated 293 mOsm/kg (285-295); Potassium 4.4 mmol/L (3.5-5.1); Sodium 133 mmol/L (136-145)
--- NOTE | 2024-01-30 07:58 | P.PN_ITS ---
Subjective 2 Subjective: no new c/o Medications: Reviewed: Yes Vitals/I&O/Wt Last Vital Signs Temp 98.2 F 01/30/24 07:44 Pulse 79 01/30/24 07:44 Resp 16 01/30/24 07:44 BP 137/73 01/30/24 07:44 Pulse Ox 91 01/30/24 07:44 O2 Del Method Room Air 01/30/24 07:22 O2 Flow Rate 2 01/29/24 20:00 01/29/24 01/30/24 01/30/24 22:59 06:59 14:59 Intake Total 120 / 480 Output Total 500 / 500 300 / 800 Balance -380 / -20 -300 / -320 Weight last 48 hrs Weight 90.446 kg Weight 88.989 kg Weight 86.183 kg Weight 86.183 kg Physical Exam 2 Narrative: AWAKE , ALERT ON 2L NC NO DISTRESS NO EDEMA Urinary Catheter Management: Corral: Cath Placed During This Visit: yes Reason for Continuing Indwelling Catheter: Required Immobilization for Trauma or Surgery or Anesthesia Urinary Catheter Date of Insertion: 01/28/24 Urinary Catheter Time of Insertion: 17:57 Data 01/29/24 05:11 01/30/24 05:48 A&P Assessment and plan (1) ESRD on peritoneal dialysis: Plan 1. End-stage renal disease: On peritoneal dialysis, patient does 1 exchange with 1.5% solution with a 6-hour dwell.- will continue -2 g sodium restriction and 1500 mill fluid restriction 2. Pubic ramus fracture 4. History of atrial fibrillation 5. Anemia: Hemoglobin at goal, monitor Patient evaluated using audiovisual cart. Time spent 20 minutes. Attestations 2 Medical Necessity Statement*: per medicine Coding Level of Care Code Acute Code for Chg Fwd Diagnoses ESRD on peritoneal dialysis N18.6; Z99.2
[2024-01-30] MEDS: FUROsemide 40 mg Tablet 80 MG PO (08:38)
[2024-01-30] MEDS: insulin lispro 100 unit/1 mL SUBCUT ×3 (08:38→17:39)
[2024-01-30] MEDS: sennosides-docusate Tablet 2 TAB PO ×2 (08:39→17:39)
[2024-01-30] MEDS: amiodarone 200 mg Tablet 50 MG PO ×2 (08:39→17:39)
[2024-01-30] MEDS: apixaban 5 mg Tablet 2.5 MG PO ×2 (08:39→17:39)
[2024-01-30] MEDS: amlodipine 5 mg Tablet PO (08:41)
[2024-01-30] MEDS: oxyCODONE-APAP 5-325 mg Tablet 1 TAB PO (08:54)
[2024-01-30 10:54] LABS: Glucose Point of Care 143 mg/dL (70-110)
[2024-01-30 16:58] LABS: Glucose Point of Care 219 mg/dL (70-110)
--- NOTE | 2024-01-30 18:03 | P.PN_ITS ---
Subjective 2 Subjective: No significant overnight events Continue dialysis Awaiting placement Vitals/I&O/Wt Last Vital Signs Temp 98.1 F 01/29/24 19:52 Pulse 77 01/29/24 19:52 Resp 18 01/29/24 19:52 BP 145/81 01/29/24 19:52 Pulse Ox 90 01/29/24 19:52 O2 Del Method Nasal Cannula 01/29/24 19:52 O2 Flow Rate 2 01/29/24 20:00 01/29/24 01/29/24 01/29/24 06:59 14:59 22:59 Intake Total 360 / 360 Output Total 100 / 950 500 / 500 Balance -100 / -590 360 / 360 -500 / -140 Weight last 48 hrs Weight 88.989 kg Weight 86.183 kg Weight 86.183 kg Physical Exam 2 Narrative: Mild send fluid overload Pleasant cooperative Nonfocal neuroexam On room air Pleasant Nonfocal exam S1, S2 Extremity swelling has not worsened Urinary Catheter Management: Corral: Cath Placed During This Visit: yes Reason for Continuing Indwelling Catheter: Other Urinary Catheter Date of Insertion: 01/28/24 Urinary Catheter Time of Insertion: 17:57 Data 01/29/24 05:11 01/30/24 05:48 A&P Assessment and plan (1) PVC (premature ventricular contraction): (2) Atrial fibrillation: Qualifiers: Atrial fibrillation type: paroxysmal Qualified Code(s): I48.0 - Paroxysmal atrial fibrillation (3) Diabetes: Qualifiers: Chronic kidney disease stage: on chronic dialysis Diabetes mellitus complication detail: with chronic kidney disease Diabetes mellitus complication status: with kidney complications Diabetes mellitus penitentiary insulin use: with penitentiary use Diabetes mellitus type: type 2 Qualified Code(s): E11.22 - Type 2 diabetes mellitus with diabetic chronic kidney disease; N18.6 - End stage renal disease; Z79.4 - detention (current) use of insulin; Z99.2 - Dependence on renal dialysis (4) ESRD on peritoneal dialysis: (5) Closed fracture of single pubic ramus of pelvis: Qualifiers: Encounter type: subsequent encounter Laterality: right (6) Pubic ramus fracture: (7) Hypoxemia: Plan Pubic rami fracture Conservative management, awaiting placement Acute hypoxia: Resolved End-stage renal disease: Peritoneal dialysis to be continued by the for now A-fib without RVR Renal diet Awaiting placement till Thursday Attestations 2 Medical Necessity Statement*: Awaiting placement Diagnoses PVC (premature ventricular contraction) I49.3 Paroxysmal atrial fibrillation I48.0 Atrial fibrillation type: paroxysmal Type 2 diabetes mellitus with chronic kidney disease on chronic dialysis, with long-term current use of insulin E11.22; N18.6; Z79.4; Z99.2 Chronic kidney disease stage: on chronic dialysis Diabetes mellitus complication detail: with chronic kidney disease Diabetes mellitus complication status: with kidney complications Diabetes mellitus penitentiary insulin use: with intermodal dispatcher use Diabetes mellitus type: type 2 ESRD on peritoneal dialysis N18.6; Z99.2 Closed fracture of single pubic ramus of pelvis S32.509A Encounter type: subsequent encounter Laterality: right Pubic ramus fracture S32.599A Hypoxemia R09.02
[2024-01-30] MEDS: lactulose oral liq 20 gm/30 mL UDC PO (18:52)
[2024-01-30] MEDS: potassium chloride ER 10 mEq Tablet PO (20:28)
[2024-01-30] MEDS: mirtazapine 15 mg Tablet PO (20:28)
[2024-01-30 21:39] LABS: Glucose Point of Care 122 mg/dL (70-110)
[2024-01-31] VITALS (7 sets, daily range): BP systolic 133–155; BP diastolic 60–75; PULSE 68–82; RESP 16–18; TEMP 36.4–37; O2SAT 92–97
[2024-01-31] MEDS: insulin glargine 100 units/1 mL 35 UNIT SUBCUT (06:02)
[2024-01-31] MEDS: levothyroxine 75 mcg Tablet PO (06:02)
[2024-01-31 06:08] LABS: Anion Gap 15.8 (5-19); Blood Urea Nitrogen 56 mg/dL (8-23); Calcium 8.5 mg/dL (8.5-10.5); Carbon Dioxide 27 mmol/L (22-29); Chloride 97 mmol/L (98-107); Creatinine Clr Calc Pharmacy 11.7297; Glucose 108 mg/dL (65-115); Osmolality Calculated 298 mOsm/kg (285-295); Potassium 3.8 mmol/L (3.5-5.1); Sodium 136 mmol/L (136-145)
[2024-01-31 06:26] LABS: Glucose Point of Care 131 mg/dL (70-110)
[2024-01-31] MEDS: amlodipine 5 mg Tablet PO (10:27)
[2024-01-31] MEDS: FUROsemide 40 mg Tablet 80 MG PO (10:27)
[2024-01-31] MEDS: sennosides-docusate Tablet 2 TAB PO ×2 (10:28→17:52)
[2024-01-31] MEDS: amiodarone 200 mg Tablet 50 MG PO ×2 (10:28→17:53)
[2024-01-31] MEDS: apixaban 5 mg Tablet 2.5 MG PO ×2 (10:28→17:53)
[2024-01-31 10:58] LABS: Glucose Point of Care 187 mg/dL (70-110)
--- NOTE | 2024-01-31 11:16 | PM.PN ---
Subjective Subjective: Patient is doing well Had 1 bowel movement Does not want Corral catheter removed Still complaining a lot of pain on ambulation Vitals/I&O/Wt Last Vital Signs Temp 97.7 F 01/31/24 08:00 Pulse 82 01/31/24 08:00 Resp 18 01/31/24 08:00 BP 135/69 01/31/24 08:00 Pulse Ox 96 01/31/24 08:00 O2 Del Method Room Air 01/31/24 07:22 O2 Flow Rate 2 01/29/24 20:00 01/30/24 01/31/24 01/31/24 22:59 06:59 14:59 Intake Total 800 / 1520 Output Total 575 / 575 Balance 800 / 1520 -575 / 945 Weight last 48 hrs Weight 90.446 kg Weight 90.446 kg Physical Exam Narrative: Awake and alert Signs of fluid overload improving Pleasant cooperative Corral catheter in place Nonfocal neuroexam Currently on room air Pleasant calm Abdomen soft S1, S2 Urinary Catheter Management: Corral: Cath Placed During This Visit: yes Reason for Continuing Indwelling Catheter: Required Immobilization for Trauma or Surgery or Anesthesia Urinary Catheter Date of Insertion: 01/28/24 Urinary Catheter Time of Insertion: 17:57 Data 01/29/24 05:11 01/31/24 05:10 A&P Assessment and plan (1) Atrial fibrillation: Qualifiers: Atrial fibrillation type: paroxysmal Qualified Code(s): I48.0 - Paroxysmal atrial fibrillation (2) Diabetes: Qualifiers: Diabetes mellitus type: type 2 Diabetes mellitus care home insulin use: with terminal make up 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 Diabetes mellitus complication status: with kidney complications Diabetes mellitus complication detail: with chronic kidney disease Chronic kidney disease stage: on chronic dialysis Qualified Code(s): E11.22 - Type 2 diabetes mellitus with diabetic chronic kidney disease; N18.6 - End stage renal disease; 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; Z99.2 - Dependence on renal dialysis (3) ESRD on peritoneal dialysis: (4) Acute respiratory failure with hypoxia: (5) Pelvic fracture: Plan Constipation: Resolved End-stage renal disease peritoneal dialysis dependent Plan to discharge her by Thursday Pain well-managed Patient wants Corral catheter until she goes to [facility] Continue renal diet A-fib without RVR Continue anticoagulating agent Hypertension controlled Hypoxia resolved Attestations Medical Necessity Statement*: Discharge on Thursday Diagnoses Paroxysmal atrial fibrillation I48.0 Atrial fibrillation type: paroxysmal Type 2 diabetes mellitus with chronic kidney disease on chronic dialysis, with long-term current use of insulin E11.22; N18.6; Z79.4; Z99.2 Diabetes mellitus type: type 2 Diabetes mellitus terminal make up operator insulin use: with care home use Diabetes mellitus complication status: with kidney complications Diabetes mellitus complication detail: with chronic kidney disease Chronic kidney disease stage: on chronic dialysis ESRD on peritoneal dialysis N18.6; Z99.2 Acute respiratory failure with hypoxia J96.01 Pelvic fracture S32.9XXA
[2024-01-31] MEDS: insulin lispro 100 unit/1 mL SUBCUT ×2 (12:10→17:52)
[2024-01-31 16:58] LABS: Glucose Point of Care 153 mg/dL (70-110)
--- NOTE | 2024-01-31 17:33 | P.PN_ITS ---
Subjective 2 Subjective: no new c/o Medications: Reviewed: Yes Vitals/I&O/Wt Last Vital Signs Temp 97.6 F 01/31/24 12:00 Pulse 68 01/31/24 12:00 Resp 16 01/31/24 12:00 BP 142/66 01/31/24 12:00 Pulse Ox 92 01/31/24 12:00 O2 Del Method Room Air 01/31/24 07:22 O2 Flow Rate 2 01/29/24 20:00 01/31/24 01/31/24 01/31/24 06:59 14:59 22:59 Intake Total 220 / 220 Output Total 575 / 575 Balance -575 / 945 220 / 220 Weight last 48 hrs Weight 90.446 kg Weight 90.446 kg Physical Exam 2 Narrative: AWAKE , ALERT ON 2L NC NO DISTRESS NO EDEMA Urinary Catheter Management: Corral: Cath Placed During This Visit: yes Reason for Continuing Indwelling Catheter: Required Immobilization for Trauma or Surgery or Anesthesia Urinary Catheter Date of Insertion: 01/28/24 Urinary Catheter Time of Insertion: 17:57 Data 01/29/24 05:11 01/31/24 05:10 A&P Assessment and plan (1) ESRD on peritoneal dialysis: Plan 1. End-stage renal disease: On peritoneal dialysis, patient does 1 exchange with 1.5% solution with a 6-hour dwell.- will continue -2 g sodium restriction and 1500 mill fluid restriction 2. Pubic ramus fracture 4. History of atrial fibrillation 5. Anemia: Hemoglobin at goal, monitor Patient evaluated using audiovisual cart. Time spent 20 minutes. Attestations 2 Medical Necessity Statement*: per medicine Coding Level of Care Code Acute Code for Chg Fwd Diagnoses ESRD on peritoneal dialysis N18.6; Z99.2
[2024-01-31 21:04] LABS: Glucose Point of Care 87 mg/dL (70-110)
[2024-01-31] MEDS: mirtazapine 15 mg Tablet PO (22:03)
[2024-01-31] MEDS: potassium chloride ER 10 mEq Tablet PO (22:04)
[2024-02-01] VITALS (7 sets, daily range): BP systolic 131–154; BP diastolic 67–74; PULSE 67–73; RESP 16–20; TEMP 36.3–37; O2SAT 90–96
[2024-02-01] MEDS: levothyroxine 75 mcg Tablet PO (06:15)
[2024-02-01] MEDS: insulin glargine 100 units/1 mL 35 UNIT SUBCUT (06:15)
[2024-02-01 06:28] LABS: Glucose Point of Care 75 mg/dL (70-110)
[2024-02-01 07:01] LABS: Glucose Point of Care 112 mg/dL (70-110)
[2024-02-01 07:43] LABS: SARS Covid-2 Antigen negative (Negative)
[2024-02-01] MEDS: oxyCODONE-APAP 5-325 mg Tablet 1 TAB PO (08:28)
[2024-02-01] MEDS: sennosides-docusate Tablet 2 TAB PO (08:30)
[2024-02-01] MEDS: FUROsemide 40 mg Tablet 80 MG PO (08:31)
[2024-02-01] MEDS: amiodarone 200 mg Tablet 50 MG PO (08:31)
[2024-02-01] MEDS: apixaban 5 mg Tablet 2.5 MG PO (08:31)
[2024-02-01] MEDS: amlodipine 5 mg Tablet PO (08:31)
--- NOTE | 2024-02-01 08:57 | P.DS_ITS ---
Discharge Providers Date of Admission: 01/28/24 14:32 Date of Discharge: February 01, 2024 Attending Provider at Admission: Leigh Ann Pena MD Attending Provider at Discharge: Leigh Ann Pena MD Primary Care Provider: Mann Garduno MD Diagnoses at Discharge Discharge Diagnosis (1) ESRD on peritoneal dialysis: Status: Acute Reason for Visit Reason for Visit: rt hip pain Hospital Course Hospital Course 83-year-old female who was admitted for management evaluation of pubic rami fracture related inability to walk, there was concern regarding safety and patient ambulating on her own, PT recommending assisted, patient has been accepted and going today with stable hemodynamics, please note has been assisting her with peritoneal dialysis on daily basis, nephro was consulted, she remained hemodynamic stable, she wants Corral catheter for her comfort because it is really hard for her to ambulate on her own at this point. She requires 2 L of oxygen on and off but she is wearing nail libyan I do not think she has correct documentation for hypoxia. Physical Exam Narrative: Pleasant cooperative Mild signs of fluid overload Venous's dermatitis Present Currently on room Urinary Catheter Management: Corral: Cath Placed During This Visit: yes Reason for Continuing Indwelling Catheter: Other Urinary Catheter Date of Insertion: 01/28/24 Urinary Catheter Time of Insertion: 17:57 Discharge Data Studies Completed and Pending Laboratory Results WBC 11.26 10^3/uL (3.29-11.43) 01/29/24 05:11 RBC 3.13 10^6/uL (3.85-5.65) L 01/29/24 05:11 Hgb 9.90 g/dL (11.27-16.99) L 01/29/24 05:11 Hct 30.2 % (36-47) L 01/29/24 05:11 MCV 96.5 fl (85-98) 01/29/24 05:11 MCH 31.6 pg (27-33) 01/29/24 05:11 MCHC 32.8 g/dL (30-55) 01/29/24 05:11 RDW 13.3 % (12.1-15.1) 01/29/24 05:11 Plt Count 218 10^3/cmm (157-399) 01/29/24 05:11 MPV 9.9 fL (7.4-10.4) 01/29/24 05:11 Neut % (Auto) 75.7 % 01/29/24 05:11 Lymph % (Auto) 14.7 % 01/29/24 05:11 [place] % (Auto) 5.0 % 01/29/24 05:11 Eos % (Auto) 3.7 % 01/29/24 05:11 Baso % (Auto) 0.4 % 01/29/24 05:11 Neut # (Auto) 8.51 10^3/uL (1.8-7.7) H 01/29/24 05:11 Lymph # (Auto) 1.7 10^3/uL (0.8-4.8) 01/29/24 05:11 [place] # (Auto) 0.6 10^3/uL (0.2-0.9) 01/29/24 05:11 Eos # (Auto) 0.4 10^3/uL (0.0-0.8) 01/29/24 05:11 Baso # (Auto) 0.1 10^3/uL (0.0-0.1) 01/29/24 05:11 Nucleated RBC % (auto) 0 % 01/29/24 05:11 Nucleated RBCs # 0.0 /100WBC 01/29/24 05:11 PT 17.70 SECONDS (12.1-14.9) H 01/28/24 13:28 INR 1.41 (0.8-1.2) H 01/28/24 13:28 Sodium 136 mmol/L (136-145) 01/31/24 05:10 Potassium 3.8 mmol/L (3.5-5.1) 01/31/24 05:10 Chloride 97 mmol/L (98-107) L 01/31/24 05:10 Carbon Dioxide 27 mmol/L (22-29) 01/31/24 05:10 Anion Gap 15.8 (5-19) 01/31/24 05:10 BUN 56 mg/dL (8-23) H 01/31/24 05:10 Creatinine 3.8 mg/dL (0.5-0.9) H 01/31/24 05:10 GFR Calculation Not Reportable 01/31/24 05:10 Glucose 108 mg/dL (65-115) 01/31/24 05:10 POC Glucose 112 mg/dL (70-110) H 02/01/24 06:58 Calculated Osmolality 298 mOsm/kg (285-295) H 01/31/24 05:10 Calcium 8.5 mg/dL (8.5-10.5) 01/31/24 05:10 Magnesium 1.9 mg/dL (1.7-2.3) 01/29/24 05:11 SARS-CoV-2 Ag (Rapid) negative (Negative) 02/01/24 07:19 Vitals Last Vital Signs Temp 97.4 F L 02/01/24 07:46 Pulse 73 02/01/24 08:04 Resp 20 H 02/01/24 08:28 BP 154/69 02/01/24 07:46 Pulse Ox 93 02/01/24 08:28 O2 Del Method Nasal Cannula 02/01/24 08:04 O2 Flow Rate 2 02/01/24 08:04 Discharge Plan Discharge Patient Disposition: Home Condition: Stable Prescriptions: Continued Eliquis 5 mg tablet 2.5 mg PO BID Qty: 90 3RF Rx Instructions: 340 B (DME) Contour Next Test Strips Strip See Rx Instructions .ROUTE .COMPLEX Qty: 300 6RF Dose Instruction: USE 1 STRIP TO CHECK GLUCOSE THREE TIMES DAILY Rx Instructions: USE 1 STRIP TO CHECK GLUCOSE THREE TIMES DAILY (DME) blood-glucose meter [OneTouch Ultra2 Meter] Misc See Rx Instructions .Route Qty: 1 0RF Rx Instructions: As directed (DME) lancets [OneTouch Delica Plus Lancet] 33 gauge misc See Rx Instructions .Route Qty: 100 12RF Rx Instructions: As directed (DME) pen needle, diabetic [BD Ultra-Fine Short Pen Needle] 31 gauge x 5/16 needle See Rx Instructions .ROUTE .COMPLEX Qty: 100 6RF Dose Instruction: USE TO INJECT INSULIN 2-3 TIMES A DAY Rx Instructions: USE TO INJECT INSULIN 2-3 TIMES A DAY (DME) OneTouch Ultra Test Strip See Rx Instructions .ROUTE .COMPLEX Qty: 200 3RF Dose Instruction: USE TO CHECK GLUCOSE THREE TIMES DAILY Rx Instructions: USE TO CHECK GLUCOSE THREE TIMES DAILY amlodipine 5 mg tablet 5 mg PO DAILY coenzyme Q10 [CoQ-10] 100 mg Capsule 100 mg PO BEDTIME losartan 50 mg tablet 50 mg PO QAM RenaPlex-D 800 mcg-12.5 mg -2,000 unit tablet 1 tab PO DAILY furosemide 40 mg tablet 80 mg PO BID atorvastatin 40 mg tablet 40 mg PO QPM levothyroxine 75 mcg tablet 75 mcg PO QAM Rx Instructions: 30 MINUTES BEFORE BREAKFAST WITH WATER ONLY mirtazapine 15 mg tablet 15 mg PO BEDTIME amiodarone 100 mg tablet 50 mg PO BID potassium chloride 20 mEq tablet extended release 10 meq PO BEDTIME pantoprazole 40 mg tablet,delayed release (DR/EC) 40 mg PO DAILY polyethylene glycol 3350 [Miralax] 17 gram/dose Powder 17 g PO DAILY doxazosin 2 mg tablet 2 mg PO BEDTIME Rx Instructions: PER RENAL insulin glargine [Lantus Solostar U-100 Insulin] 100 unit/mL (3 mL) insulin pen 42 unit SUBCUT QAM hydrocodone-acetaminophen 5-325 mg tablet 1 tab PO Q6H PRN (Reason: pain) Qty: 20 0RF metolazone 5 mg tablet 5 mg PO EVERY OTHER DAY Discharge Orders: Discharge Order (Routine); Ordered 02/01/24 Ordered By: Leigh Ann Pena Referrals: Mann Garduno MD [Primary Care Provider] - Discharge Diet: As Directed Patient Instructions: Opioid Safety Activity Restrictions/Additional Instructions: Renal diet 1500 mL fluid restriction Discharge Attestations Time Spent in Discharge Care*: greater than 30 min Status at Discharge: Cognitive status at discharge: cognitively intact , Behavioral status at discharge: cooperative , Quality Metrics Clinical Quality Measures [ No reported AMI, CVA or VTE this stay] Coding Level of Care Code Acute Code for Chg Fwd Diagnoses ESRD on peritoneal dialysis N18.6; Z99.2
[2024-02-01 10:48] LABS: Glucose Point of Care 288 mg/dL (70-110)
--- NOTE | 2024-02-01 11:13 | PC.NURSE ---
Called report to Janette Levy RN DON at [facility] [id number]
[2024-02-01] MEDS: insulin lispro 100 unit/1 mL SUBCUT (12:02)
--- NOTE | 2024-02-01 12:14 | PC.SOCIAL ---
IMM Update pg 2 of IMM updated and reviewed w/ patient and her . Copy provided and copy dated, initialed and placed in chart.
--- NOTE | 2024-02-01 15:01 | P.PN_ITS ---
Subjective 2 Subjective: no new c/o Medications: Reviewed: Yes Vitals/I&O/Wt Last Vital Signs Temp 97.9 F 02/01/24 12:31 Pulse 69 02/01/24 12:31 Resp 18 02/01/24 12:31 BP 133/68 02/01/24 12:31 Pulse Ox 94 02/01/24 12:31 O2 Del Method Room Air 02/01/24 12:00 O2 Flow Rate 2 02/01/24 08:04 02/01/24 02/01/24 02/01/24 06:59 14:59 22:59 Intake Total 240 / 240 Output Total 200 / 400 Balance -200 / 420 240 / 240 Weight last 48 hrs Weight 90.435 kg Weight 90.446 kg Physical Exam 2 Narrative: AWAKE , ALERT ON 2L NC NO DISTRESS NO EDEMA Urinary Catheter Management: Corral: Cath Placed During This Visit: yes Reason for Continuing Indwelling Catheter: Other Urinary Catheter Date of Insertion: 01/28/24 Urinary Catheter Time of Insertion: 17:57 Data 01/29/24 05:11 01/31/24 05:10 A&P Assessment and plan (1) ESRD on peritoneal dialysis: Plan 1. End-stage renal disease: On peritoneal dialysis, patient does 1 exchange with 1.5% solution with a 6-hour dwell.- will continue -2 g sodium restriction and 1500 mill fluid restriction 2. Pubic ramus fracture 4. History of atrial fibrillation 5. Anemia: Hemoglobin at goal, monitor Patient evaluated using audiovisual cart. Time spent 20 minutes. Attestations 2 Medical Necessity Statement*: [facility] Coding Level of Care Code Acute Code for Chg Fwd Diagnoses ESRD on peritoneal dialysis N18.6; Z99.2
== END 2024-02-01 12:20 | disposition skilled nursing facility (03) | DRG 535 ==
LOC: ER 14:00 → MEDSURG 14:33
PROVIDERS: Admitting Provider Internal Medicine; Emergency Provider Emergency Medicine; PCP Family Medicine; Visit Provider Internal Medicine
DX: S32.591A Other specified fracture of right pubis, initial encounter for closed fracture (principal); N18.6 End stage renal disease; W18.30XA Fall on same level, unspecified, initial encounter; E11.22 Type 2 diabetes mellitus with diabetic chronic kidney disease; I48.0 Paroxysmal atrial fibrillation; M19.90 Unspecified osteoarthritis, unspecified site; D63.1 Anemia in chronic kidney disease; E03.9 Hypothyroidism, unspecified; K21.9 Gastro-esophageal reflux disease without esophagitis; I49.3 Ventricular premature depolarization; I10 Essential (primary) hypertension; K59.00 Constipation, unspecified; Z99.2 Dependence on renal dialysis; Z79.01 Long term (current) use of anticoagulants; Z79.4 Long term (current) use of insulin; Z11.52 Encounter for screening for COVID-19; Z87.01 Personal history of pneumonia (recurrent); Z86.16 Personal history of COVID-19; Z87.891 Personal history of nicotine dependence; Z75.1 Person awaiting admission to adequate facility elsewhere
CPT/HCPCS: 36415; 36416; 51702; 72192; 73502; 73630; 80048; 80053; 82962; 83735; 85025; 85610; 87426; 93005; 96372; 97110; 97161; 97166; 97530; 99214; 99285; J1815

== ENCOUNTER → 2024-03-10 13:03 | Outpatient (BNVA) | payer MEDICARE, SELFPAY | PROVIDERS: PCP Family Medicine; Visit Provider Thoracic Surgery (Cardiothoracic Vascular Surgery) | DX: I96 Gangrene, not elsewhere classified (principal); L89.612 Pressure ulcer of right heel, stage 2; L89.622 Pressure ulcer of left heel, stage 2; L89.312 Pressure ulcer of right buttock, stage 2 | CPT/HCPCS: 97597; 97598; 99213 ==

== ENCOUNTER 2024-03-15 08:13 | Inpatient (IN) | payer MEDICARE, SELFPAY ==
[2024-03-15] VITALS (103 sets, daily range): BP systolic 63–140; BP diastolic 42–92; PULSE 20–128; RESP 13–28; TEMP 35.8–36.2; O2SAT 86–100
--- NOTE | 2024-03-15 08:11 | ECG_ITS ---
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 Measurements Intervals [place] Rate: 119 P: 0 KS: 0 QRS: 44 QRSD: 100 T: 3 QT: 327 QTc: 460 Interpretive Statements ATRIAL FIBRILLATION WITH RAPID VENTRICULAR RESPONSE NONSPECIFIC ST & T-WAVE ABNORMALITY ABNORMAL RHYTHM ECG Compared to ECG 01/27/2024 13:42:39 T-wave abnormality now present Sinus rhythm no longer present Myocardial infarct finding no longer present Electronically Signed On 03-15-2024 23:45:38 CDT by Liliane Almendarez M.D. [email or web address]
[2024-03-15 08:23] LABS: Glucose Point of Care 172 mg/dL (70-110)
[2024-03-15] MEDS: sodium chloride 0.9% 1,000 ML 999 ML IV ×2 (08:32→11:10)
[2024-03-15 08:46] LABS: Basophils # 0.1 10^3/uL (0.0-0.1); Basophils % 0.6 %; Eosinophils # 0.2 10^3/uL (0.0-0.8); Eosinophils % 1.5 %; Hematocrit 36.4 % (36-47); Lymphocytes # 4.7 10^3/uL (0.8-4.8); Lymphocytes % 29.2 %; Mean Corpuscular HGB Conc 31.6 g/dL (30-55); Mean Corpuscular Volume 98.1 fl (85-98); Mean Platelet Volume 9.8 fL (7.4-10.4); Monocytes # 0.8 10^3/uL (0.2-0.9); Monocytes % 4.9 %; Neutrophils # 10.08 10^3/uL (1.8-7.7); Nucleated Red Blood Cells % 0 %; Platelet Count 336 10^3/cmm (157-399); Red Blood Count 3.71 10^6/uL (3.85-5.65); Red Cell Distribution Width 13.4 % (12.1-15.1)
--- NOTE | 2024-03-15 08:48 | XR_ITS ---
WS: [id number] Exam: XR chest 1V portable [id number] Date/Time of Exam: 03/15/2024 8:52 AM Reason For Exam: Weakness Comparison 11/27/2023. Lungs are fully expanded. Reticular nodular pattern noted throughout both lung zones. Heart size is n ormal. No pleural effusions or pneumothorax. Bony structures are intact. Surgical clip in the RIGHT n rut. XR/XR chest 1V portable [id number] IMPRESSION: 1. Reticular nodular pattern noted throughout both lungs. This may be chronic. No acute process.
--- NOTE | 2024-03-15 08:48 | W.ED.WEAKNES ---
HPI - Weakness General: Chief complaint: Weakness Stated complaint: Weakness Time Seen by Provider: 03/15/24 08:16 History of Present Illness: 83-year-old female with history of type 2 diabetes on Lantus end-stage renal disease on peritoneal dialysis, A-fib, on Eliquis, hypertension, hyperlipidemia, and congestive heart failure who presents to the emergency room with weakness. She says she got up to go to the bathroom and got on the toilet and was so weak she could not get up. EMS reports her sugar was in the 70s when they got there. He did drink some juice. Her blood glucose on presentation here is 175. She is little bit tachycardic temp is a little low and blood pressure soft. She reports no other symptoms. No chest pain. No abdominal pain. No nausea or vomiting. No altered mental status. No focal motor deficits. Review of Systems Narrative: Constitutional symptoms: Negative except as documented in HPI. Skin symptoms: Negative except as documented in HPI. Eye symptoms: Negative except as documented in HPI. ENMT symptoms: Negative except as documented in HPI. Respiratory symptoms: Negative except as documented in HPI. Cardiovascular symptoms: Negative except as documented in HPI. Gastrointestinal symptoms: Negative except as documented in HPI. Genitourinary symptoms: Negative except as documented in HPI. Musculoskeletal symptoms: Negative except as documented in HPI. Neurologic symptoms: Negative except as documented in HPI. Psychiatric symptoms: Negative except as documented in HPI. Endocrine symptoms: Negative except as documented in HPI. [facility] ED PFSH: Medical History Pubic ramus fracture Closed fracture of single pubic ramus of pelvis Pelvic fracture Acute respiratory failure with hypoxia Hypoxemia Atrial fibrillation PVC (premature ventricular contraction) Hypoglycemia associated with type 2 diabetes mellitus Pneumonia due to COVID-19 virus ESRD on peritoneal dialysis Atrial fibrillation Acute kidney injury superimposed on CKD Pneumonia Osteoarthritis (arthritis due to wear and tear of joints) Altered mental status Meningioma Anemia COVID-19 resolved Hypothyroidism GERD (gastroesophageal reflux disease) HTN (hypertension) CHF (congestive heart failure) CKD (chronic kidney disease) Diabetes Surgical History Peritoneal dialysis catheter in situ (06/26/21) History of ankle surgery S/P tonsillectomy Status post tubal ligation S/P cataract extraction S/P cervical spinal fusion Family History Mother Hypertension Grandmother Hypertension MATERNAL Other Cancer Diabetes Social History Smoking and tobacco/nicotine status: former use of tobacco/nicotine Quit status (tobacco/nicotine): has quit using Year quit tobacco: 1977 [id number] Second hand smoke exposure: Yes Alcohol intake: never Substance/Drug Use: never Caregiver/support person: Yes Lives independently: Yes Household members: spouse and children Housing: House Marital status: Current occupational status: retired Pets and animals: Yes Do you think of yourself as: Straight/Heterosexual Current gender identity: Female Physical Exam Narrative: EXAM NARRATIVE: General: Alert, no acute distress. Skin: Warm, dry. Head: Normocephalic, atraumatic. Neck: Supple, trachea midline. Eye: Extraocular movements are intact. Ears, nose, mouth and throat: mucosa moist. Cardiovascular: Regular, tachycardic, Normal peripheral perfusion. Respiratory: Lungs are clear to auscultation, respirations are non-labored, breath sounds are equal, Symmetrical chest wall expansion. Gastrointestinal: Soft, Nontender, Non distended Musculoskeletal: Normal ROM, no deformity. Neurological: Alert and oriented, No focal neurological deficit observed. Psychiatric: Cooperative, appropriate mood & affect. Course Vital Signs: Vital signs: Vital Signs Temperature 96.5 F L 03/15/24 08:13 Pulse Rate 20 L 03/15/24 11:22 Respiratory Rate 19 H 03/15/24 11:22 Blood Pressure 110/62 03/15/24 11:22 Pulse Oximetry 95 03/15/24 11:22 Oxygen Delivery Me thod Room Air 03/15/24 08:13 MDM - Weakness Medical Decision Making Medical decision making: Differential diagnosis for patient presenting with generalized weakness including but not limited to and based on the above HPI, review of systems and physical exam: Hypoglycemia. Sepsis. Dehydration. Renal failure. Electrolyte abnormalities. Anemia. Congestive heart failure. Hypotension. Coronary syndrome. Hepatitis. Cirrhosis. Infections such as pneumonia, urinary tract infection, [place]ick bourne illness, Cellulitis, Viral infections including influenza and Covid-19. Workup: labwork and lab/exam driven imaging ordered to evaluate, rule in and rule out above pathologies. EKG: Time 8:11 AM. Rate 119. Atrial fibrillation with rapid ventricular response, No ST-T changes, no ectopy, This was reviewed and interpreted by myself the ER physician at 8:15 AM Chest x-ray: Chronic appearing reticulonodular pattern of the lungs. No acute process. No infiltrate. No pneumothorax. No cardiomegaly. This was reviewed and interpreted by myself the ER physician. Lab Review: Laboratory results were reviewed and interpreted by myself the emergency room physician. White count is 16,000. BUN/creatinine are 39 and 4.9 which would be expected and I peritoneal dialysis patient. Potassium is 3.7. Glucose is not low at 144. Patient has a significant urinary tract infection. I reviewed the patient's medical record. Prolonged hospital stay: Initially hospital stay was prolonged waiting for urinalysis to be returned. I had some delay in giving fluids because she is a dialysis patient and I have concern for fluid overload but she ended up getting 30/kg ideal body weight. Upon consultation with the hospitalist they have requested a CT scan to rule out obstructive uropathy and so that has delayed admission quite a bit longer. Reexamination: I come back and spoke with patient about results. She still slightly tachycardic and borderline hypotensive. She has no altered mental status. No focal motor deficits. No increased work of breathing at this time. Consultation: I have spoken with the hospitalist on-call. He recommends a CT scan and nephrology consultation. Admission to the ICU after CT scan was read. Consultation: I placed a consult to telehealth nephrology. Agrees with antibiotics and fluids. Will consult patient no further recommendations at this time Assessment and plan: Sepsis Urinary tract infection End-stage renal disease on peritoneal dialysis A-fib with RVR -Patient has a significant urinary tract infection. Elevated lactate. Elevated white count. Hypotension and tachycardia. She is septic. -2 L normal saline bolus. Fluid volumes based on ideal body weight. -Broad-spectrum antibiotics were administered. -Sepsis quality measures. -Lactic acid with a reflex was ordered. -Blood cultures were ordered. -I discussed the patient with the hospitalist on-call who is admitting the patient. - Discussed findings and plan with patient. Answered any questions. - All laboratory values were reviewed and interpreted personally by myself, the ER physician - All imaging was reviewed and interpreted personally by myself, the ER physician. - Evaluation and treatment of this problem were appropriate in the emergency setting -I spent a total of >35 minutes of critical care time managing the patient, independent of any other practitioner. -The time involved in the performance of separately reportable procedures was not counted towards critical care time. Lab Data 03/15/24 08:00 03/15/24 08:00 Radiology Impressions Chest X-Ray 03/15/24 08:48 IMPRESSION: 1. Reticular nodular pattern noted throughout both lungs. This may be chronic. No acute process. Abdomen/Pelvis CT 03/15/24 11:19 IMPRESSION: 1. Suspected ascending urinary infection with a gas-forming organism. No hydronephrosis or ureteral stone. 2. Subacute fractures of the right hemipelvis with intra-articular extension to the right hip. Orthopedic evaluation is recommended. Laboratory Results WBC 16.00 10^3/uL (3.29-11.43) H 03/15/24 08:00 RBC 3.71 10^6/uL (3.85-5.65) L 03/15/24 08:00 Hgb 11.50 g/dL (11.27-16.99) 03/15/24 08:00 Hct 36.4 % (36-47) 03/15/24 08:00 MCV 98.1 fl (85-98) H 03/15/24 08:00 MCH 31.0 pg (27-33) 03/15/24 08:00 MCHC 31.6 g/dL (30-55) 03/15/24 08:00 RDW 13.4 % (12.1-15.1) 03/15/24 08:00 Plt Count 336 10^3/cmm (157-399) 03/15/24 08:00 MPV 9.8 fL (7.4-10.4) 03/15/24 08:00 Neut % (Auto) 63.0 % 03/15/24 08:00 Lymph % (Auto) 29.2 % 03/15/24 08:00 Lanier % (Auto) 4.9 % 03/15/24 08:00 Eos % (Auto) 1.5 % 03/15/24 08:00 Baso % (Auto) 0.6 % 03/15/24 08:00 Neut # (Auto) 10.08 10^3/uL (1.8-7.7) H 03/15/24 08:00 Lymph # (Auto) 4.7 10^3/uL (0.8-4.8) 03/15/24 08:00 Lanier # (Auto) 0.8 10^3/uL (0.2-0.9) 03/15/24 08:00 Eos # (Auto) 0.2 10^3/uL (0.0-0.8) 03/15/24 08:00 Baso # (Auto) 0.1 10^3/uL (0.0-0.1) 03/15/24 08:00 Nucleated RBC % (auto) 0 % 03/15/24 08:00 Nucleated RBCs # 0.0 /100WBC 03/15/24 08:00 Sodium 137 mmol/L (136-145) 03/15/24 08:00 Potassium 3.7 mmol/L (3.5-5.1) 03/15/24 08:00 Chloride 95 mmol/L (98-107) L 03/15/24 08:00 Carbon Dioxide 26 mmol/L (22-29) 03/15/24 08:00 Anion Gap 19.7 (5-19) H 03/15/24 08:00 BUN 39 mg/dL (8-23) H 03/15/24 08:00 Creatinine 4.9 mg/dL (0.5-0.9) H 03/15/24 08:00 GFR Calculation Not Reportable 03/15/24 08:00 Glucose 144 mg/dL (65-115) H 03/15/24 08:00 POC Glucose 193 mg/dL (70-110) H 03/15/24 10:27 Calculated Osmolality 296 mOsm/kg (285-295) H 03/15/24 08:00 Lactic Acid 3.9 mmol/L (0.5-2.2) H 03/15/24 08:00 Lactic Acid (Sepsis) 2.0 mmol/L (0.5-2.2) 03/15/24 12:03 Calcium 8.8 mg/dL (8.5-10.5) 03/15/24 08:00 Total Bilirubin 0.3 mg/dL (0.15-1.2) 03/15/24 08:00 AST 13 U/L (0-32) 03/15/24 08:00 ALT 17 U/L (0-33) 03/15/24 08:00 Alkaline Phosphatase 105 U/L (35-105) 03/15/24 08:00 C-Reactive Protein 3.0 mg/L (0.0-4.9) 03/15/24 08:00 Total Protein 6.3 g/dL (6.6-8.7) L 03/15/24 08:00 Albumin 3.3 g/dL (3.5-5.2) L 03/15/24 08:00 Globulin 3.0 g/dL (1.3-4.6) 03/15/24 08:00 Urine Color Yellow (Yellow) 03/15/24 10:36 Urine Appearance Cloudy (CLEAR) A 03/15/24 10:36 Urine pH 6.5 (5-7) 03/15/24 10:36 Ur Specific Mcgraw 1.010 (1.005-1.030) 03/15/24 10:36 Urine Protein Trace (Negative) 03/15/24 10:36 Urine Glucose (UA) Norm (Normal) 03/15/24 10:36 Urine Ketones Negative (Negative) 03/15/24 10:36 Urine Blood 2+ (Negative) H 03/15/24 10:36 Urine Nitrate Negative (Negative) 03/15/24 10:36 Urine Bilirubin Neg (Negative) 03/15/24 10:36 Urine Urobilinogen Norm mg/dL (Negative) 03/15/24 10:36 Ur Leukocyte Esterase 2+ (Negative) H 03/15/24 10:36 Urine RBC 10-15 /hpf (0-2) H 03/15/24 10:36 Urine WBC Too numerous to cnt /hpf (0-5) H 03/15/24 10:36 Ur Squamous Epith Cells 0-4 /hpf (0-5) H 03/15/24 10:36 Ur Transition Epith Cell 0-4 /hpf 03/15/24 10:36 Amorphous Sediment Not Reportable 03/15/24 10:36 Urine Bacteria 4+ /hpf (NONE) H 03/15/24 10:36 Urine Mucus 1+ /hpf 03/15/24 10:36 All radiology interpretation(s) finalized by discharge Discharge Plan Discharge Condition: Stable Prescriptions: No Action (DME) Contour Next Test Strips Strip See Rx Instructions .ROUTE .COMPLEX Qty: 300 6RF Dose Instruction: USE 1 STRIP TO CHECK GLUCOSE THREE TIMES DAILY Rx Instructions: USE 1 STRIP TO CHECK GLUCOSE THREE TIMES DAILY (DME) blood-glucose meter [OneTouch Ultra2 Meter] Misc See Rx Instructions .Route Qty: 1 0RF Rx Instructions: As directed (DME) lancets [OneTouch Delica Plus Lancet] 33 gauge misc See Rx Instructions .Route Qty: 100 12RF Rx Instructions: As directed (DME) pen needle, diabetic [BD Ultra-Fine Short Pen Needle] 31 gauge x 5/16 needle See Rx Instructions .ROUTE .COMPLEX Qty: 100 6RF Dose Instruction: USE TO INJECT INSULIN 2-3 TIMES A DAY Rx Instructions: USE TO INJECT INSULIN 2-3 TIMES A DAY (DME) OneTouch Ultra Test Strip See Rx Instructions .ROUTE .COMPLEX Qty: 200 3RF Dose Instruction: USE TO CHECK GLUCOSE THREE TIMES DAILY Rx Instructions: USE TO CHECK GLUCOSE THREE TIMES DAILY Eliquis 5 mg tablet 2.5 mg PO BID Qty: 90 3RF Rx Instructions: 340 B amlodipine 5 mg tablet 5 mg PO DAILY coenzyme Q10 [CoQ-10] 100 mg Capsule 100 mg PO BEDTIME losartan 50 mg tablet 50 mg PO QAM RenaPlex-D 800 mcg-12.5 mg -2,000 unit tablet 1 tab PO DAILY furosemide 40 mg tablet 80 mg PO BID atorvastatin 40 mg tablet 40 mg PO QPM levothyroxine 75 mcg tablet 75 mcg PO QAM Rx Instructions: 30 MINUTES BEFORE BREAKFAST WITH WATER ONLY amiodarone 100 mg tablet 100 mg PO DAILY potassium chloride 20 mEq tablet extended release 10 meq PO BEDTIME polyethylene glycol 3350 [Miralax] 17 gram/dose Powder 17 g PO DAILY doxazosin 2 mg tablet 2 mg PO BEDTIME Rx Instructions: PER RENAL insulin glargine [Lantus Solostar U-100 Insulin] 100 unit/mL (3 mL) insulin pen 30 unit SUBCUT QAM hydrocodone-acetaminophen 5-325 mg tablet 1 tab PO Q6H PRN (Reason: pain) Qty: 20 0RF Referrals: Mann Garduno MD [Primary Care Provider] - Coding Level of Care Code ED Chief Human Resources Officer for [facility]
[2024-03-15 09:04] LABS: Alanine Aminotransferase 17 U/L (0-33); Albumin Level 3.3 g/dL (3.5-5.2); Alkaline Phosphatase 105 U/L (35-105); Anion Gap 19.7 (5-19); Aspartate Amino Transferase 13 U/L (0-32); Blood Urea Nitrogen 39 mg/dL (8-23); Calcium 8.8 mg/dL (8.5-10.5); Carbon Dioxide 26 mmol/L (22-29); Chloride 95 mmol/L (98-107); Glucose 144 mg/dL (65-115); Osmolality Calculated 296 mOsm/kg (285-295); Potassium 3.7 mmol/L (3.5-5.1); Sodium 137 mmol/L (136-145); Total Bilirubin 0.3 mg/dL (0.15-1.2); Total Protein 6.3 g/dL (6.6-8.7)
[2024-03-15 10:11] LABS: Lactic Sepsis W/Reflex 3.9 mmol/L (0.5-2.2)
[2024-03-15 10:40] LABS: Glucose Point of Care 193 mg/dL (70-110)
[2024-03-15 10:47] LABS: Urine Appearance Cloudy (CLEAR); Urine Color Yellow (Yellow)
[2024-03-15 10:48] LABS: Bilirubin Urine Neg (Negative); Blood Urine 2+ (Negative); Glucose Urine UA Norm (Normal); Ketones Urine Negative (Negative); Leukocyte Esterase Urine 2+ (Negative); Nitrate Urine Negative (Negative); Protein Urine Trace (Negative); Urobilinogen Urine Norm (Negative); pH Urine 6.5 (5-7)
[2024-03-15 11:01] LABS: Bacteria Urine 4+ /hpf; Mucus Urine 1+ /hpf; Squamous Epithelial Cell Urine 0-4 /hpf (0-5); Transitional Epi Cells Urine 0-4 /hpf; WBC Urine TOO NUMEROUS TO CNT /hpf (0-5)
[2024-03-15 11:02] LABS: Add Urine Culture? Yes
[2024-03-15] MEDS: linezolid premix 600 MG/300 ML PREMIX 300 MG IV ×2 (11:09→23:29)
[2024-03-15] MEDS: meropenem 500 MG in sodium chloride 0.9% (plus) 50 ML 100 MG IV ×2 (11:09→18:36)
--- NOTE | 2024-03-15 11:19 | CTR_ITS ---
PROCEDURE INFORMATION: Exam: CT Abdomen And Pelvis Without Contrast Exam date and time: 03/15/2024 12:20 PM Age: 83 years old Clinical indication: Condition or disease; Other: Renal failure; Prior surgery; Surgery date: 6+ months; Surgery type: Tubal; Additional info: Renal failure, R/O obstructive uropathy per hospitalist TECHNIQUE: Imaging protocol: Computed tomography of the abdomen and pelvis without contrast. Radiation optimization: All CT scans at this facility use at least one of these dose optimization techniques: automated exposure control; mA and/or kV adjustment per patient size (includes targeted exams where dose is matched to clinical indication); or iterative reconstruction. COMPARISON: CT pelvis wo con [id number] 01/27/2024 3:01 PM RADIATION DOSE METRICS: Total DLP (mGy-cm): 907.5 FINDINGS: Lungs: Subsegmental bibasilar atelectasis. The visualized lung bases are otherwise clear. Diaphragm: No evidence of diaphragmatic defect. Liver: No evidence of focal hepatic lesion within limitation of a noncontrast exam. Multiple hepatic calcifications compatible with sequela of a remote granulomatous process. Gallbladder and biliary ducts: Gallbladder is unremarkable. No evidence of intra-hepatic or extra-hepatic biliary dilatation. Pancreas: Grossly unremarkable. Spleen: Multiple splenic calcifications compatible with sequela of a remote granulomatous process. Otherwise grossly unremarkable. Adrenal glands: Grossly unremarkable. Kidneys and ureters: There is right-sided pelviectasis. No hydronephrosis or ureteral stone on either side. Renal vascular calcifications are noted. Ascending urinary infection would be difficult to exclude in the clinical setting. Stomach and bowel: No evidence of bowel obstruction or perienteric inflammatory changes. Appendix: The appendix is not visualized, however there are no findings to suggest appendicitis. Intraperitoneal space: Trace-small free fluid. No evidence of free air or fluid collection. Vasculature: No evidence of aneurysmal dilitation of abdominal aorta. Lymph nodes: No evidence of adenopathy. Urinary bladder: There is mild bladder wall haziness/thickening and a small amount of air within the bladder. Consider correlation with urinalysis to exclude cystitis with a gas-forming organism. Reproductive: Grossly unremarkable. Bones/joints: Subacute comminuted fractures of the right hemipelvis involving the right hemisacrum, pubic body, anterior column of the acetabulum and inferior pubic ramus. There is intra-articular extension into the right hip (image 79 of series 5). Grade 1 anterolisthesis of L4 on L5 secondary to severe facet arthrosis. Disc bulge and anterolisthesis results in moderate-severe central stenosis at this level. 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 Soft tissues: No evidence of fluid collection or hematoma in the superficial soft tissues. CT/CT abdomen pelvis wo con [id number] IMPRESSION: 1. Suspected ascending urinary infection with a gas-forming organism. No hydronephrosis or ureteral stone. 2. Subacute fractures of the right hemipelvis with intra-articular extension to the right hip. Orthopedic evaluation is recommended.
[2024-03-15 11:39] LABS: Reflex Lactate Order REFLEX LACTIC ORDERD
--- NOTE | 2024-03-15 13:05 | P.HP_ITS ---
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 Denies any abdominal pain, no GI symptoms, peritoneal dialysate was clear yesterday. No issues with dialysis. In ER leukocytosis 16, temp 96 5, UA suggestive of UTI with numerous WBC, 10-[address] abdomen pelvis pending. Review of Systems 2 Const: Reports: fatigue, malaise and other (Generalized weakness); Denies: fever(s), chills or body aches ENMT: Denies: throat pain Card: Denies: chest pain, edema, pre-syncope or dyspnea on exertion Resp: Denies: dyspnea, productive cough, change in phlegm color or hemoptysis GI: Denies: abdominal pain, nausea, vomiting, diarrhea, constipation, hematochezia or melena : Denies: flank pain, urinary frequency or hematuria Musc: Denies: back pain, joint swelling or joint redness Skin/Breast: Denies: rash or new lesions Neuro: Denies: headache(s), numbness in extremities, weakness in extremities, dizziness, confusion or seizure-like activity Medications/Allergies Home Medications Medication Instructions Recorded Confirmed Last Taken Type blood sugar diagnostic (Contour #300 ea 10/08/22 03/15/24 Unknown Rx Next Test Strips) blood-glucose meter (OneTouch #1 ea 10/13/22 03/15/24 Unknown Rx Ultra2 Meter) lancets 33 gauge (OneTouch Delica #100 ea 10/13/22 03/15/24 Unknown Rx Plus Lancet) pen needle, diabetic 31 gauge x #100 ea 10/27/23 03/15/24 Unknown Rx 5/16 (BD Ultra-Fine Short Pen Needle) blood sugar diagnostic (OneTouch #200 ea 11/19/23 03/15/24 Unknown Rx Ultra Test strips) amiodarone 100 mg tablet 100 mg PO DAILY 11/27/23 03/15/24 03/14/24 History amlodipine 5 mg tablet 5 mg PO DAILY 11/27/23 03/15/24 03/14/24 History atorvastatin 40 mg tablet 40 mg PO QPM 11/27/23 03/15/24 03/14/24 History coenzyme Q10 100 mg capsule 100 mg PO BEDTIME 11/27/23 03/15/24 03/14/24 History (CoQ-10) furosemide 40 mg tablet 80 mg PO BID 11/27/23 03/15/24 03/14/24 History levothyroxine 75 mcg tablet 75 mcg PO QAM 11/27/23 03/15/24 03/14/24 History losartan 50 mg tablet 50 mg PO QAM 11/27/23 03/15/24 03/14/24 History potassium chloride 20 mEq 10 meq PO BEDTIME 11/27/23 03/15/24 03/14/24 History tablet,extended release vit B,C-folic ac 800 mcg-zinc 12.5 1 tab PO DAILY 11/27/23 03/15/24 03/14/24 History mg-selen-D3 2,000 unit-vit E tablet (RenaPlex-D) doxazosin 2 mg tablet 2 mg PO BEDTIME 01/27/24 03/15/24 03/14/24 History hydrocodone 5 mg-acetaminophen 325 1 tab PO Q6H PRN pain #20 tabs 01/27/24 03/15/24 01/28/24 Rx mg tablet insulin glargine 100 unit/mL (3 30 unit SUBCUT QAM 01/27/24 03/15/24 03/14/24 History mL) subcutaneous pen (Lantus Solostar U-100 Insulin) polyethylene glycol 3350 17 17 g PO DAILY 01/27/24 03/15/24 03/14/24 History gram/dose oral powder (Miralax) apixaban 5 mg tablet (Eliquis) 2.5 mg (1/2 x 5 mg) PO BID #90 tabs 03/02/24 03/15/24 03/14/24 Rx Allergies Allergy/AdvReac Type Severity Reaction Status Date / Time Penicillins Allergy Intermediate rash Verified 03/15/24 08:32 PFSH Acute 2 PFSH: Medical History Pubic ramus fracture Closed fracture of single pubic ramus of pelvis Pelvic fracture Acute respiratory failure with hypoxia Hypoxemia Atrial fibrillation PVC (premature ventricular contraction) Hypoglycemia associated with type 2 diabetes mellitus Pneumonia due to COVID-19 virus ESRD on peritoneal dialysis Atrial fibrillation Acute kidney injury superimposed on CKD Pneumonia Osteoarthritis (arthritis due to wear and tear of joints) Altered mental status Meningioma Anemia COVID-19 resolved Hypothyroidism GERD (gastroesophageal reflux disease) HTN (hypertension) CHF (congestive heart failure) CKD (chronic kidney disease) Diabetes Surgical History Peritoneal dialysis catheter in situ (06/26/21) History of ankle surgery S/P tonsillectomy Status post tubal ligation S/P cataract extraction S/P cervical spinal fusion Family History Mother Hypertension Grandmother Hypertension MATERNAL Other Cancer Diabetes Social History Smoking and tobacco/nicotine status: former use of tobacco/nicotine Quit status (tobacco/nicotine): has quit using Year quit tobacco: 1977 [id number] Second hand smoke exposure: Yes Alcohol intake: never Substance/Drug Use: never Caregiver/support person: Yes Lives independently: Yes Household members: spouse and children Housing: House Marital status: Current occupational status: retired Pets and animals: Yes Do you think of yourself as: Straight/Heterosexual Current gender identity: Female Vitals/I&O/Wt Last Vital Signs Temp 96.5 F L 03/15/24 08:13 Pulse 20 L 03/15/24 11:22 Resp 19 H 03/15/24 11:22 BP 110/62 03/15/24 11:22 Pulse Ox 95 03/15/24 11:22 O2 Del Method Room Air 03/15/24 08:13 03/14/24 03/15/24 03/15/24 22:59 06:59 14:59 Intake Total 1000 / 1000 Balance 1000 / 1000 Weight last 48 hrs Weight 84.368 kg Physical Exam 2 Narrative: Accompanied by her . Const: COMMON NORMALS: patient oriented x3 and alert GENERAL APPEARANCE: c ooperative ORIENTATION/CONSCIOUSNESS: Yes awake HENMT: COMMON NORMALS: oropharynx normal Neck/C-Spine: COMMON NORMALS: no JVD Resp: COMMON NORMALS: normal respiratory effort and clear to auscultation bilaterally AUSCULTATION: clear to auscultation bilaterally Cardio: COMMON NORMALS: no JVD, regular rhythm, S1 normal heart sound present, S2 normal heart sound present and No murmurs present (Cardio) RHYTHM: regular rhythm HEART SOUNDS: S1 normal heart sound present and S2 normal heart sound present GI: COMMON NORMALS: Normal to inspection, nondistended, normoactive bowel sounds present, Soft to palpation and non-tender PALPATION: Yes Soft to palpation Extremity: COMMON NORMALS: no joint enlargement and no pedal edema OTHER: Left leg is always more swollen. Neuro: COMMON NORMALS: patient oriented x3 and moves all extremities S ENSORIUM/ORIENTATION: Yes alert Skin: OTHER: Pressure sores, both heels, reported on the sacrum not visualized. Data 03/15/24 08:00 03/15/24 08:00 Micro: Microbiology 03/15/24 09:44 Blood Culture - Preliminary Blood SPECIMEN COLLECTED 03/15/24 09:42 Blood Culture - Preliminary Blood SPECIMEN COLLECTED A&P Assessment and plan (1) Sepsis: Reviewed vitals, CBC, CMP, UA, chest x-ray. CT abdomen pelvis on my interpretation without hydronephrosis or hydroureter, but pending official read. Reviewed ER note, discussed with ED provider. EKG on my interpretation with atrial fibrillation, pending official read. Severe sepsis with leukocytosis 16, hypothermia 96.5, tachycardia 128, suspected urinary source with urinary tract infection. At risk of peritonitis, but has not had any symptoms of peritonitis and fluid was clear last exchange yesterday. Reassess fluid today. Blood cultures have been sent. She is started on antibiotic, continue meropenem, linezolid. Monitor for risk of seizure, risk of adrenal cytosis with meropenem and linezolid respectively. Follow-up cultures. Lactic acid 3.9. Blood pressure 98/49. Initial admission to intensive care unit. Has received fluid resuscitation, at risk of fluid overload, decompensation of CHF, in setting of ESRD. Reassess volume status. Monitor oxygenation. (2) UTI (urinary tract infection): As above. (3) Hypoglycemia associated with type 2 diabetes mellitus: Hypoglycemia at home likely secondary to sepsis. Plan ESRD on daily peritoneal dialysis. Continue peritoneal dialysis daily. Atrial fibrillation on anticoagulation with Eliquis, amiodarone CHF, currently not in exacerbation but at risk. Monitor. Continue PD. HTN, hold off antihypertensives for now with soft blood pressure. Severe sepsis. Hypothyroidism, Anemia, GERD, Diabetes, Pressure sores on sacrum and both heels, Other medical problems Attestations 2 Medical Necessity Statement*: Admission of over 2 midnights anticipated for assessment and management of severe sepsis. Diagnoses Sepsis A41.9 UTI (urinary tract infection) N39.0 Hypoglycemia associated with type 2 diabetes mellitus E11.649
[2024-03-15] MEDS: apixaban 5 mg Tablet 2.5 MG PO (18:34)
[2024-03-15] MEDS: atorvastatin 40 mg Tablet PO (18:35)
[2024-03-15] MEDS: insulin lispro 100 unit/1 mL SUBCUT (18:37)
--- NOTE | 2024-03-15 20:40 | P.CONIM_ITS ---
Providers/Reason For Consult 2 Consulting Physician/Specialty*: [facility]/nephrology Reason for Consult*: End-stage renal disease Attending Physician: Kin Aggarwal Primary Care Provider: Mann Garduno MD History of Present Illness History of Present Illness Luiza Cooper is a 83 year old female Patient is a 83-year-old female with end-stage renal disease on peritoneal dialysis, A-fib, CHF, hypertension, hypothyroidism, diabetes brought to the emergency department due to generalized weakness. In the ER patient was noted to be hypoglycemic tachycardic and was slightly hypotensive. No abdominal pain no nausea vomiting. UA was consistent with UTI . Other lab data significant for elevated leukocytosis with WBC count of 16,000 potassium 3.7.. Review of Systems 2 Narrative: Other review of systems negative Medications/Allergies Home Medications Medication Instructions Recorded Confirmed Last Taken Type blood sugar diagnostic (Contour #300 ea 10/08/22 03/15/24 Unknown Rx Next Test Strips) blood-glucose meter (OneTouch #1 ea 10/13/22 03/15/24 Unknown Rx Ultra2 Meter) lancets 33 gauge (OneTouch Delica #100 ea 10/13/22 03/15/24 Unknown Rx Plus Lancet) pen needle, diabetic 31 gauge x #100 ea 10/27/23 03/15/24 Unknown Rx 5/16 (BD Ultra-Fine Short Pen Needle) blood sugar diagnostic (OneTouch #200 ea 11/19/23 03/15/24 Unknown Rx Ultra Test strips) amiodarone 100 mg tablet 100 mg PO DAILY 11/27/23 03/15/24 03/14/24 History amlodipine 5 mg tablet 5 mg PO DAILY 11/27/23 03/15/24 03/14/24 History atorvastatin 40 mg tablet 40 mg PO QPM 11/27/23 03/15/24 03/14/24 History coenzyme Q10 100 mg capsule 100 mg PO BEDTIME 11/27/23 03/15/24 03/14/24 History (CoQ-10) furosemide 40 mg tablet 80 mg PO BID 11/27/23 03/15/24 03/14/24 History levothyroxine 75 mcg tablet 75 mcg PO QAM 11/27/23 03/15/24 03/14/24 History losartan 50 mg tablet 50 mg PO QAM 11/27/23 03/15/24 03/14/24 History potassium chloride 20 mEq 10 meq PO BEDTIME 11/27/23 03/15/24 03/14/24 History tablet,extended release vit B,C-folic ac 800 mcg-zinc 12.5 1 tab PO DAILY 11/27/23 03/15/24 03/14/24 History mg-selen-D3 2,000 unit-vit E tablet (RenaPlex-D) doxazosin 2 mg tablet 2 mg PO BEDTIME 01/27/24 03/15/24 03/14/24 History hydrocodone 5 mg-acetaminophen 325 1 tab PO Q6H PRN pain #20 tabs 01/27/24 03/15/24 01/28/24 Rx mg tablet insulin glargine 100 unit/mL (3 30 unit SUBCUT QAM 01/27/24 03/15/24 03/14/24 History mL) subcutaneous pen (Lantus Solostar U-100 Insulin) polyethylene glycol 3350 17 17 g PO DAILY 01/27/24 03/15/24 03/14/24 History gram/dose oral powder (Miralax) apixaban 5 mg tablet (Eliquis) 2.5 mg (1/2 x 5 mg) PO BID #90 tabs 03/02/24 03/15/24 03/14/24 Rx Allergies Allergy/AdvReac Type Severity Reaction Status Date / Time Penicillins Allergy Intermediate rash Verified 03/15/24 08:32 Current Medications Generic Name Dose Route Start Last Admin Trade Name Freq PRN Reason Stop Dose Admin Apixaban 2.5 mg 03/15/24 18:00 03/15/24 18:34 Apixaban 5 Mg Tablet PO 2.5 mg BID NIKO Administration Atorvastatin Calcium 40 mg 03/15/24 18:00 03/15/24 18:35 Atorvastatin 40 Mg Tablet PO 40 mg QPM NIKO Administration Meropenem 500 mg/ Sodium 50 mls @ 100 mls/hr 03/15/24 19:00 03/15/24 18:36 Chloride IV 100 mls/hr Q8H NIKO Administration Protocol Insulin Human Lispro 0 unit 03/15/24 18:00 03/15/24 18:37 Insulin Lispro 100 Unit/1 Ml SUBCUT 4 unit WM&BEDTIME NIKO Administration Protocol PFSH Acute 2 PFSH: Medical History Pubic ramus fracture Closed fracture of single pubic ramus of pelvis Pelvic fracture Acute respiratory failure with hypoxia Hypoxemia Atrial fibrillation PVC (premature ventricular contraction) Hypoglycemia associated with type 2 diabetes mellitus Pneumonia due to COVID-19 virus ESRD on peritoneal dialysis Atrial fibrillation Acute kidney injury superimposed on CKD Pneumonia Osteoarthritis (arthritis due to wear and tear of joints) Altered mental status Meningioma Anemia COVID-19 resolved Hypothyroidism GERD (gastroesophageal reflux disease) HTN (hypertension) CHF (congestive heart failure) CKD (chronic kidney disease) Diabetes Surgical History Peritoneal dialysis catheter in situ (06/26/21) History of ankle surgery S/P tonsillectomy Status post tubal ligation S/P cataract extraction S/P cervical spinal fusion Family History Mother Hypertension Grandmother Hypertension MATERNAL Other Cancer Diabetes Social History Smoking and tobacco/nicotine status: former use of tobacco/nicotine Quit status (tobacco/nicotine): has quit using Year quit tobacco: 1977 [id number] Second hand smoke exposure: Yes Alcohol intake: never Substance/Drug Use: never Caregiver/support person: Yes Lives independently: Yes Household members: spouse and children Housing: House Marital status: Current occupational status: retired Pets and animals: Yes Do you think of yourself as: Straight/Heterosexual Current gender identity: Female Vitals/I&O/Wt Last Vital Signs Temp 96.5 F L 03/15/24 08:13 Pulse 73 03/15/24 18:15 Resp 17 03/15/24 18:15 BP 120/80 03/15/24 18:15 Pulse Ox 96 03/15/24 18:15 O2 Del Method Room Air 03/15/24 15:50 03/15/24 03/15/24 03/15/24 06:59 14:59 22:59 Intake Total 1000 / 1000 1830 / 2830 Balance 1000 / 1000 1830 / 2830 Weight last 48 hrs Weight 84.368 kg Physical Exam 2 Narrative: Awake alert, no distress HEENT S1-S2 regular rate and rhythm per report Lungs clear per report No edema Data 03/16/24 03:55 03/16/24 03:55 Micro: Microbiology 03/15/24 09:44 Blood Culture - Preliminary Blood SPECIMEN COLLECTED 03/15/24 09:42 Blood Culture - Preliminary Blood SPECIMEN COLLECTED A&P Assessment and plan (1) ESRD (end stage renal disease) on dialysis: 1. End-stage renal disease: On peritoneal dialysis, patient does 1 exchange per day with 6-hour dwell-usually 1.5% dextrose solution. -Will will order peritoneal dialysis to be done today -Hold Lasix 2. History of hypertension: Blood pressures in the 140s to 150s range, resume home meds 3. Sepsis in the setting of UTI, antibiotics per primary team 4. Anemia: Monitor, ANNIE 5. History of A-fib Patient evaluated using audiovisual cart. Time spent 40 minutes. Plan per mediicne team Coding Level of Care Code Acute Code for Chg Fwd Diagnoses ESRD (end stage renal disease) on dialysis N18.6; Z99.2
[2024-03-15 21:31] LABS: Glucose Point of Care 138 mg/dL (70-110)
[2024-03-15] MEDS: potassium chloride ER 10 mEq Tablet PO (21:32)
--- NOTE | 2024-03-15 22:19 | PC.NURSE ---
Received call from Dr. Humphrey with nephrology. Discussed current condition of patient, dialysis done yesterday per patient. Dr. Humphrey stated to wait until tomorrow morning for dialysis
[2024-03-16] VITALS (143 sets, daily range): BP systolic 107–151; BP diastolic 40–105; PULSE 64–84; RESP 12–28; TEMP 36.4–37.2; O2SAT 83–100
[2024-03-16 04:10] LABS: Basophils # 0.1 10^3/uL (0.0-0.1); Basophils % 0.5 %; Eosinophils # 0.1 10^3/uL (0.0-0.8); Eosinophils % 1.3 %; Hematocrit 29.3 % (36-47); Lymphocytes # 1.9 10^3/uL (0.8-4.8); Lymphocytes % 17.7 %; Mean Corpuscular HGB Conc 31.4 g/dL (30-55); Mean Corpuscular Hemoglobin 30.6 pg (27-33); Mean Corpuscular Volume 97.3 fl (85-98); Mean Platelet Volume 9.6 fL (7.4-10.4); Monocytes # 0.6 10^3/uL (0.2-0.9); Monocytes % 5.8 %; Neutrophils # 7.75 10^3/uL (1.8-7.7); Neutrophils % 73.9 %; Nucleated Red Blood Cells % 0 %; Platelet Count 247 10^3/cmm (157-399); Red Blood Count 3.01 10^6/uL (3.85-5.65); Red Cell Distribution Width 13.4 % (12.1-15.1); White Blood Count 10.48 10^3/uL (3.29-11.43)
[2024-03-16 04:32] LABS: Alanine Aminotransferase 11 U/L (0-33); Albumin Level 2.7 g/dL (3.5-5.2); Alkaline Phosphatase 105 U/L (35-105); Anion Gap 15.8 (5-19); Aspartate Amino Transferase 14 U/L (0-32); Blood Urea Nitrogen 37 mg/dL (8-23); Calcium 8.1 mg/dL (8.5-10.5); Carbon Dioxide 26 mmol/L (22-29); Chloride 100 mmol/L (98-107); Globulin 2.6 g/dL (1.3-4.6); Glucose 143 mg/dL (65-115); Magnesium 1.6 mg/dL (1.7-2.3); Osmolality Calculated 295 mOsm/kg (285-295); Phosphorus 3.6 mg/dL (2.5-4.5); Potassium 4.8 mmol/L (3.5-5.1); Sodium 137 mmol/L (136-145); Total Bilirubin 0.4 mg/dL (0.15-1.2); Total Protein 5.3 g/dL (6.6-8.7)
[2024-03-16] MEDS: meropenem 500 MG in sodium chloride 0.9% (plus) 50 ML 100 MG IV ×2 (06:23→18:07)
[2024-03-16] MEDS: levothyroxine 75 mcg Tablet PO (06:23)
[2024-03-16 07:13] LABS: Glucose Point of Care 184 mg/dL (70-110)
[2024-03-16] MEDS: insulin glargine 100 units/1 mL 30 UNIT SUBCUT (08:09)
[2024-03-16 08:11] LABS: Glucose Point of Care 109 mg/dL (70-110)
[2024-03-16] MEDS: apixaban 5 mg Tablet 2.5 MG PO ×2 (08:22→18:07)
[2024-03-16] MEDS: amiodarone 200 mg Tablet 100 MG PO (08:23)
[2024-03-16] MEDS: linezolid premix 600 MG/300 ML PREMIX 300 MG IV (11:15)
[2024-03-16 11:20] LABS: Glucose Point of Care 111 mg/dL (70-110)
--- NOTE | 2024-03-16 15:47 | P.PN_ITS ---
Subjective 2 Subjective: no new c/o Medications: Reviewed: Yes Vitals/I&O/Wt Last Vital Signs Temp 98.9 F 03/16/24 07:30 Pulse 75 03/16/24 12:00 Resp 17 03/16/24 12:00 BP 130/59 03/16/24 12:00 Pulse Ox 94 03/16/24 12:00 O2 Del Method Room Air 03/15/24 15:50 03/16/24 03/16/24 03/16/24 06:59 14:59 22:59 Intake Total 300 / 3240 1190 / 1190 Output Total 250 / 250 Balance 50 / 2990 1190 / 1190 Weight last 48 hrs Weight 85.049 kg Weight 84.368 kg Physical Exam 2 Narrative: Awake alert, no distress HEENT S1-S2 regular rate and rhythm per report Lungs clear per report No edema Data 03/16/24 03:55 03/16/24 03:55 Micro: Microbiology 03/15/24 10:36 Urine Culture - Preliminary Urine,Clean Catch Gram Negative Rods 03/15/24 09:44 Blood Culture - Preliminary Blood NEGATIVE TO DATE 03/15/24 09:42 Blood Culture - Preliminary Blood NEGATIVE TO DATE A&P Assessment and plan (1) ESRD (end stage renal disease) on dialysis: 1. End-stage renal disease: On peritoneal dialysis, patient does 1 exchange per day with 6-hour dwell-usually 1.5% dextrose solution. -Will will order peritoneal dialysis to be done today -Hold Lasix 2. History of hypertension: Blood pressures in the 140s to 150s range, resume home meds 3. Sepsis in the setting of UTI, antibiotics per primary team 4. Anemia: Monitor, ANNIE 5. History of A-fib Patient evaluated using audiovisual cart. Time spent 40 minutes. Plan per [facility] team Attestations 2 Medical Necessity Statement*: per [facility] Coding Level of Care Code Acute Code for Chg Fwd Diagnoses ESRD (end stage renal disease) on dialysis N18.6; Z99.2
[2024-03-16 17:15] LABS: Glucose Point of Care 142 mg/dL (70-110)
[2024-03-16] MEDS: atorvastatin 40 mg Tablet PO (18:07)
[2024-03-16] MEDS: insulin lispro 100 unit/1 mL SUBCUT (18:07)
--- NOTE | 2024-03-16 19:39 | PM.PN ---
Subjective Subjective: She states that today she is feeling better. Denies abdominal pain. No nausea or vomiting. Did not have PD last night. Vitals/I&O/Wt Last Vital Signs Temp 98.0 F 03/16/24 19:24 Pulse 81 03/16/24 19:24 Resp 18 03/16/24 19:24 BP 125/60 03/16/24 19:24 Pulse Ox 98 03/16/24 19:24 O2 Del Method Room Air 03/16/24 16:00 03/16/24 03/16/24 03/16/24 06:59 14:59 22:59 Intake Total 300 / 3240 1190 / 1190 290 / 1480 Output Total 250 / 250 Balance 50 / 2990 1190 / 1190 290 / 1480 Weight last 48 hrs Weight 85.049 kg Weight 84.368 kg Physical Exam Const: COMMON NORMALS: patient oriented x3 and alert GENERAL APPEARANCE: cooperative ORIENTATION/CONSCIOUSNESS: Yes awake HENMT: COMMON NORMALS: oropharynx normal Neck/C-Spine: COMMON NORMALS: no JVD Resp: COMMON NORMALS: normal respiratory effort and clear to auscultation bilaterally AUSCULTATION: clear to auscultation bilaterally Cardio: COMMON NORMALS: no JVD, regular rhythm, S1 normal heart sound present, S2 normal heart sound present and No murmurs present (Cardio) RHYTHM: regular rhythm HEART SOUNDS: S1 normal heart sound present and S2 normal heart sound present GI: COMMON NORMALS: Normal to inspection, nondistended, normoactive bowel sounds present, Soft to palpation and non-tender PALPATION: Yes Soft to palpation Extremity: COMMON NORMALS: no joint enlargement and no pedal edema OTHER: Left leg is always more swollen. Neuro: COMMON NORMALS: patient oriented x3 and moves all extremities SENSORIUM/ORIENTATION: Yes alert Skin: COMMON NORMALS: no rashes or lesions noted GENERAL SKIN EXAM: no rashes or lesions noted OTHER: Pressure sores, both heels, reported on the sacrum not visualized. Data 03/16/24 03:55 03/16/24 03:55 Micro: Microbiology 03/15/24 10:36 Urine Culture - Preliminary Urine,Clean Catch Gram Negative Rods 03/15/24 09:44 Blood Culture - Preliminary Blood NEGATIVE TO DATE 03/15/24 09:42 Blood Culture - Preliminary Blood NEGATIVE TO DATE A&P Assessment and plan (1) Sepsis: Leukocytosis resolved. Improving. Afebrile. Tachycardia resolved. Reviewed vitals, CBC, CMP. Reviewed nephrology note. Reviewed urine culture, growing more than 100,000 gram-negative rods. Discussed with nursing staff during peritoneal dialysis on drainage of fluid sample be collected today. Discussed with employment case manager. Continue meropenem. Stop linezolid. (2) UTI (urinary tract infection): As above. (3) Hypoglycemia associated with type 2 diabetes mellitus: Hypoglycemia at home likely secondary to sepsis. Plan ESRD on daily peritoneal dialysis. Continue peritoneal dialysis as per nephrology. Atrial fibrillation on anticoagulation with Eliquis, amiodarone CHF, currently not in exacerbation but at risk. Monitor. Continue PD. HTN, hold off antihypertensives for now with soft blood pressure. Severe sepsis. Hypothyroidism, Anemia, GERD, Diabetes, Pressure sores on sacrum and both heels, Other medical problems Attestations Medical Necessity Statement*: Continue admission for further assessment of sepsis, ANSON in a lady with ESRD on peritoneal dialysis. and High MDM includes amount and/or complexity of data reviewed/ordered [ resulted lab(s)/test(s), ordered lab(s)/test(s) and other healthcare professional discussion] as documented Diagnoses Sepsis A41.9 UTI (urinary tract infection) N39.0 Hypoglycemia associated with type 2 diabetes mellitus E11.649
[2024-03-16] MEDS: magnesium sulfate premix 2 GM/50 ML PIGGYBACK IV (20:13)
[2024-03-16] MEDS: potassium chloride ER 10 mEq Tablet PO (20:13)
[2024-03-16 20:18] LABS: Glucose Point of Care 146 mg/dL (70-110)
--- NOTE | 2024-03-16 21:41 | PC.NURSE ---
Patient's 2100 Blood sugar was 146, 2 units was indicated. Patient refused the 2 units of humalog. Patient stated that sugars drop at night and did not want.
[2024-03-17] VITALS: BP 129/52; PULSE 75; RESP 18; TEMP 36.9; O2SAT 97
[2024-03-17 03:55] VITALS: BP 110/64; PULSE 71; RESP 17; TEMP 36.9; O2SAT 95
[2024-03-17 05:37] LABS: Basophils # 0.1 10^3/uL (0.0-0.1); Basophils % 0.5 %; Eosinophils # 0.3 10^3/uL (0.0-0.8); Eosinophils % 3.2 %; Hematocrit 28.5 % (36-47); Lymphocytes # 1.9 10^3/uL (0.8-4.8); Lymphocytes % 19.4 %; Mean Corpuscular HGB Conc 32.3 g/dL (30-55); Mean Corpuscular Hemoglobin 31.8 pg (27-33); Mean Corpuscular Volume 98.6 fl (85-98); Mean Platelet Volume 9.8 fL (7.4-10.4); Monocytes # 0.6 10^3/uL (0.2-0.9); Neutrophils # 6.82 10^3/uL (1.8-7.7); Neutrophils % 69.8 %; Nucleated Red Blood Cells % 0 %; Platelet Count 252 10^3/cmm (157-399); Red Blood Count 2.89 10^6/uL (3.85-5.65); Red Cell Distribution Width 13.2 % (12.1-15.1); White Blood Count 9.78 10^3/uL (3.29-11.43)
[2024-03-17 05:47] LABS: Alanine Aminotransferase 11 U/L (0-33); Albumin Level 2.5 g/dL (3.5-5.2); Alkaline Phosphatase 89 U/L (35-105); Anion Gap 12.7 (5-19); Aspartate Amino Transferase 10 U/L (0-32); Blood Urea Nitrogen 31 mg/dL (8-23); Calcium 8.1 mg/dL (8.5-10.5); Carbon Dioxide 26 mmol/L (22-29); Chloride 100 mmol/L (98-107); Globulin 2.5 g/dL (1.3-4.6); Glucose 65 mg/dL (65-115); Osmolality Calculated 285 mOsm/kg (285-295); Potassium 3.7 mmol/L (3.5-5.1); Sodium 135 mmol/L (136-145); Total Bilirubin 0.3 mg/dL (0.15-1.2)
[2024-03-17 06:00] VITALS: PULSE 68
[2024-03-17 06:28] LABS: Glucose Point of Care 74 mg/dL (70-110)
[2024-03-17] MEDS: levothyroxine 75 mcg Tablet PO (06:32)
[2024-03-17] MEDS: meropenem 500 MG in sodium chloride 0.9% (plus) 50 ML 100 MG IV (06:33)
[2024-03-17 07:54] VITALS: BP 118/74; PULSE 83; RESP 16; TEMP 36.8; O2SAT 94
[2024-03-17] MEDS: apixaban 5 mg Tablet 2.5 MG PO (09:28)
[2024-03-17] MEDS: amiodarone 200 mg Tablet 100 MG PO (09:28)
[2024-03-17] MEDS: polyethylene glycol 3350 Pkt 17 gm PO (09:28)
[2024-03-17] MEDS: HYDROcodone-acetaminophen 5-325 mg Tablet 1 TAB PO (09:28)
--- NOTE | 2024-03-17 09:32 | P.PN_ITS ---
Subjective 2 Subjective: no new complaints Medications: Reviewed: Yes Vitals/I&O/Wt Last Vital Signs Temp 98.3 F 03/17/24 07:54 Pulse 83 03/17/24 07:54 Resp 16 03/17/24 07:54 BP 118/74 03/17/24 07:54 Pulse Ox 94 03/17/24 07:54 O2 Del Method Room Air 03/17/24 07:54 03/16/24 03/17/24 03/17/24 22:59 06:59 14:59 Intake Total 460 / 1650 120 / 1770 50 / 50 Output Total 2350 / 2350 200 / 2550 Balance -1890 / -700 -80 / -780 50 / 50 Weight last 48 hrs Weight 84.958 kg Weight 85.049 kg Physical Exam 2 Narrative: Awake alert, no distress HEENT S1-S2 regular rate and rhythm per report Lungs clear per report No edema Data 03/17/24 04:28 03/17/24 04:28 Micro: Microbiology 03/15/24 10:36 Urine Culture - Final Urine,Clean Catch Escherichia coli 03/15/24 09:44 Blood Culture - Preliminary Blood NEGATIVE TO DATE 03/15/24 09:42 Blood Culture - Preliminary Blood NEGATIVE TO DATE A&P Assessment and plan (1) ESRD (end stage renal disease) on dialysis: 1. End-stage renal disease: On peritoneal dialysis, patient does 1 exchange per day with 6-hour dwell-usually 1.5% dextrose solution. -ordered peritoneal dialysis to be done today -Hold Lasix 2. History of hypertension: Blood pressures in the 140s to 150s range, resume home meds 3. Sepsis in the setting of UTI, antibiotics per primary team 4. Anemia: Monitor, ANNIE 5. History of A-fib Patient evaluated using audiovisual cart. Time spent 40 minutes. Plan per [facility] team Attestations 2 Medical Necessity Statement*: per [facility] Coding Level of Care Code Acute Code for Chg Fwd Diagnoses ESRD (end stage renal disease) on dialysis N18.6; Z99.2
[2024-03-17 11:18] VITALS: BP 112/61; PULSE 78; RESP 16; TEMP 36.7; O2SAT 95
[2024-03-17 11:41] LABS: Glucose Point of Care 155 mg/dL (70-110)
--- NOTE | 2024-03-17 11:44 | PM.DCS ---
Discharge Providers Date of Admission: 03/15/24 15:09 Date of Discharge: March 17, 2024 Attending Provider at Admission: Kin Aggarwal Attending Provider at Discharge: Kin Aggarwal Primary Care Provider: Mann Garduno MD Diagnoses at Discharge Discharge Diagnosis (1) ESRD (end stage renal disease) on dialysis: Status: Acute Reason for Visit Reason for Visit: Weakness Brief History: 83-year-old lady with history of ESRD on peritoneal dialysis last exchange last night, atrial fibrillation on anticoagulation with Eliquis, CHF, HTN, hypothyroidism, anemia, GERD, diabetes, pressure sores on sacrum and both heels, other medical problems is brought for evaluation to ER after feeling unwell at home, she has been feeling very weak, could not get up from the toilet, on assessment by EMS blood sugar was in the 70s, she was found to be tachycardic in ER, blood pressure soft 98/49. Denies any abdominal pain, no GI symptoms, peritoneal dialysate was clear yesterday. No issues with dialysis. In ER leukocytosis 16, temp 96 5, UA suggestive of UTI with numerous WBC, 10-[address] abdomen pelvis pending. Hospital Course Hospital Course CT abdomen pelvis showed suspected ascending urinary infection with gas-forming organism, no hydronephrosis or ureteral stone. She was treated with IV antibiotic with meropenem with concern for risk of resistant organism, urine culture eventually grew E. coli resistant to Unasyn, cefuroxime, ciprofloxacin, Levaquin, tetracycline, tobramycin and Bactrim. Her symptoms improved. Leukocytosis resolved. She remained afebrile. Tachycardia improved. Sepsis resolved. Initially with hypoglycemia related to sepsis, but glucose did better while in the hospital, however, this morning glucose was down to 65. She is asked to decrease insulin Lantus dose to 20 units at discharge. She is otherwise feeling much better subjectively. She has not had any abdominal pain or discomfort, dialysis remains clear, low suspicion for any peritonitis. She is to continue peritoneal dialysis. She will complete antibiotic course with cefdinir at discharge. She does have a history of penicillin allergy with rash, however, this prescription is her has had ceftriaxone on several occasions and tolerated it fine without any issues. Essentially CT scan also revealed right hemipelvis fracture, subacute, present since her fall back in January, but this time with noted intra-articular extension in the right hip. Discussed with patient and her , she has been putting some weight as tolerating, transferring, walking short distance. Discussed with orthopedic service at [facility] told Dr. Garcia, images forwarded and reviewed by orthopedic service, per Ortho evaluation this is a nonoperative lesion, recommendation for continued weightbearing as tolerating. Possibility of following up in office, placed referral, although patient has also discussed with the office and instructions are to continue as presently without need to follow-up at the moment. Lesion was showing signs of healing on imaging. Discussed with patient and her , continue to exercise caution, strict fall prevention. Physical Exam Narrative: Const: COMMON NORMALS: patient oriented x3 and alert GENERAL APPEARANCE: cooperative ORIENTATION/CONSCIOUSNESS: Yes awake HENMT: COMMON NORMALS: oropharynx normal Neck/C-Spine: COMMON NORMALS: no JVD Resp: COMMON NORMALS: normal respiratory effort and clear to auscultation bilaterally AUSCULTATION: clear to auscultation bilaterally Cardio: COMMON NORMALS: no JVD, regular rhythm, S1 normal heart sound present, S2 normal heart sound present and No murmurs present (Cardio) RHYTHM: regular rhythm HEART SOUNDS: S1 normal heart sound present and S2 normal heart sound present GI: COMMON NORMALS: Normal to inspection, nondistended, normoactive bowel sounds present, Soft to palpation and non-tender PALPATION: Yes Soft to palpation Extremity: COMMON NORMALS: no joint enlargement and no pedal edema OTHER: Left leg is always more swollen. Neuro: COMMON NORMALS: patient oriented x3 and moves all extremities SENSORIUM/ORIENTATION: Yes alert Skin: COMMON NORMALS: no rashes or lesions noted GENERAL SKIN EXAM: no rashes or lesions noted OTHER: Pressure sores, both heels, reported on the sacrum not visualized. Discharge Data Studies Completed and Pending Completed Studies During Hospitalization Category Date Time Status CT abdomen pelvis wo con [id number] Stat Cat Scan 03/15/24 11:19 Completed XR chest 1V portable [id number] Stat Exams 03/15/24 08:48 Completed Pending at discharge Category Date Time Status Blood Culture Stat Lab 03/15/24 09:44 Results Body Fluid Culture & GS Routine Lab 03/15/24 17:28 Uncollected Complete Blood Count w/Auto AM LABS Lab 03/18/24 04:00 Ordered Comprehensive Metabolic Panel AM LABS Lab 03/18/24 04:00 Ordered Magnesium AM LABS Lab 03/18/24 04:00 Ordered Magnesium AM LABS Lab 03/19/24 04:00 Ordered Peritoneal Fluid Analysis Routine Lab 03/15/24 17:28 Uncollected Radiology Impressions Chest X-Ray 03/15/24 08:48 IMPRESSION: 1. Reticular nodular pattern noted throughout both lungs. This may be chronic. No acute process. Abdomen/Pelvis CT 03/15/24 11:19 IMPRESSION: 1. Suspected ascending urinary infection with a gas-forming organism. No hydronephrosis or ureteral stone. 2. Subacute fractures of the right hemipelvis with intra-articular extension to the right hip. Orthopedic evaluation is recommended. Laboratory Results WBC 9.78 10^3/uL (3.29-11.43) 03/17/24 04:28 RBC 2.89 10^6/uL (3.85-5.65) L 03/17/24 04:28 Hgb 9.20 g/dL (11.27-16.99) L 03/17/24 04:28 Hct 28.5 % (36-47) L 03/17/24 04:28 MCV 98.6 fl (85-98) H 03/17/24 04:28 MCH 31.8 pg (27-33) 03/17/24 04:28 MCHC 32.3 g/dL (30-55) 03/17/24 04:28 RDW 13.2 % (12.1-15.1) 03/17/24 04:28 Plt Count 252 10^3/cmm (157-399) 03/17/24 04:28 MPV 9.8 fL (7.4-10.4) 03/17/24 04:28 Neut % (Auto) 69.8 % 03/17/24 04:28 Lymph % (Auto) 19.4 % 03/17/24 04:28 [place] % (Auto) 6.0 % 03/17/24 04:28 Eos % (Auto) 3.2 % 03/17/24 04:28 Baso % (Auto) 0.5 % 03/17/24 04:28 Neut # (Auto) 6.82 10^3/uL (1.8-7.7) 03/17/24 04:28 Lymph # (Auto) 1.9 10^3/uL (0.8-4.8) 03/17/24 04:28 [place] # (Auto) 0.6 10^3/uL (0.2-0.9) 03/17/24 04:28 Eos # (Auto) 0.3 10^3/uL (0.0-0.8) 03/17/24 04:28 Baso # (Auto) 0.1 10^3/uL (0.0-0.1) 03/17/24 04:28 Nucleated RBC % (auto) 0 % 03/17/24 04:28 Nucleated RBCs # 0.0 /100WBC 03/17/24 04:28 Sodium 135 mmol/L (136-145) L 03/17/24 04:28 Potassium 3.7 mmol/L (3.5-5.1) 03/17/24 04:28 Chloride 100 mmol/L (98-107) 03/17/24 04:28 Carbon Dioxide 26 mmol/L (22-29) 03/17/24 04:28 Anion Gap 12.7 (5-19) 03/17/24 04:28 BUN 31 mg/dL (8-23) H 03/17/24 04:28 Creatinine 3.9 mg/dL (0.5-0.9) H 03/17/24 04:28 GFR Calculation Not Reportable 03/17/24 04:28 Glucose 65 mg/dL (65-115) 03/17/24 04:28 POC Glucose 155 mg/dL (70-110) H 03/17/24 11:20 Calculated Osmolality 285 mOsm/kg (285-295) 03/17/24 04:28 Lactic Acid 3.9 mmol/L (0.5-2.2) H 03/15/24 08:00 Lactic Acid (Sepsis) 2.0 mmol/L (0.5-2.2) 03/15/24 12:03 Calcium 8.1 mg/dL (8.5-10.5) L 03/17/24 04:28 Phosphorus 3.6 mg/dL (2.5-4.5) 03/16/24 03:55 Magnesium 2.0 mg/dL (1.7-2.3) 03/17/24 04:28 Total Bilirubin 0.3 mg/dL (0.15-1.2) 03/17/24 04:28 AST 10 U/L (0-32) 03/17/24 04:28 ALT 11 U/L (0-33) 03/17/24 04:28 Alkaline Phosphatase 89 U/L (35-105) 03/17/24 04:28 C-Reactive Protein 3.0 mg/L (0.0-4.9) 03/15/24 08:00 Total Protein 5.0 g/dL (6.6-8.7) L 03/17/24 04:28 Albumin 2.5 g/dL (3.5-5.2) L 03/17/24 04:28 Globulin 2.5 g/dL (1.3-4.6) 03/17/24 04:28 Urine Color Yellow (Yellow) 03/15/24 10:36 Urine Appearance Cloudy (CLEAR) A 03/15/24 10:36 Urine pH 6.5 (5-7) 03/15/24 10:36 Ur Specific [place] 1.010 (1.005-1.030) 03/15/24 10:36 Urine Protein Trace (Negative) 03/15/24 10:36 Urine Glucose (UA) Norm (Normal) 03/15/24 10:36 Urine Ketones Negative (Negative) 03/15/24 10:36 Urine Blood 2+ (Negative) H 03/15/24 10:36 Urine Nitrate Negative (Negative) 03/15/24 10:36 Urine Bilirubin Neg (Negative) 03/15/24 10:36 Urine Urobilinogen Norm mg/dL (Negative) 03/15/24 10:36 Ur Leukocyte Esterase 2+ (Negative) H 03/15/24 10:36 Urine RBC 10-15 /hpf (0-2) H 03/15/24 10:36 Urine WBC Too numerous to cnt /hpf (0-5) H 03/15/24 10:36 Ur Squamous Epith Cells 0-4 /hpf (0-5) H 03/15/24 10:36 Ur Transition Epith Cell 0-4 /hpf 03/15/24 10:36 Amorphous Sediment Not Reportable 03/15/24 10:36 Urine Bacteria 4+ /hpf (NONE) H 03/15/24 10:36 Urine Mucus 1+ /hpf 03/15/24 10:36 Vitals Last Vital Signs Temp 98.3 F 03/17/24 07:54 Pulse 83 03/17/24 07:54 Resp 16 03/17/24 07:54 BP 118/74 03/17/24 07:54 Pulse Ox 94 03/17/24 07:54 O2 Del Method Room Air 03/17/24 07:54 Discharge Plan Discharge Patient Disposition: Home Condition: Stable Prescriptions: New cefdinir 300 mg capsule 300 mg PO BID 10 Days Qty: 20 0RF Continued (DME) Contour Next Test Strips Strip See Rx Instructions .ROUTE .COMPLEX Qty: 300 6RF Dose Instruction: USE 1 STRIP TO CHECK GLUCOSE THREE TIMES DAILY Rx Instructions: USE 1 STRIP TO CHECK GLUCOSE THREE TIMES DAILY (DME) blood-glucose meter [OneTouch Ultra2 Meter] Misc See Rx Instructions .Route Qty: 1 0RF Rx Instructions: As directed (DME) lancets [OneTouch Delica Plus Lancet] 33 gauge misc See Rx Instructions .Route Qty: 100 12RF Rx Instructions: As directed (DME) pen needle, diabetic [BD Ultra-Fine Short Pen Needle] 31 gauge x 5/16 needle See Rx Instructions .ROUTE .COMPLEX Qty: 100 6RF Dose Instruction: USE TO INJECT INSULIN 2-3 TIMES A DAY Rx Instructions: USE TO INJECT INSULIN 2-3 TIMES A DAY (DME) OneTouch Ultra Test Strip See Rx Instructions .ROUTE .COMPLEX Qty: 200 3RF Dose Instruction: USE TO CHECK GLUCOSE THREE TIMES DAILY Rx Instructions: USE TO CHECK GLUCOSE THREE TIMES DAILY Eliquis 5 mg tablet 2.5 mg PO BID Qty: 90 3RF Rx Instructions: 340 B amlodipine 5 mg tablet 5 mg PO DAILY coenzyme Q10 [CoQ-10] 100 mg Capsule 100 mg PO BEDTIME RenaPlex-D 800 mcg-12.5 mg -2,000 unit tablet 1 tab PO DAILY furosemide 40 mg tablet 80 mg PO BID atorvastatin 40 mg tablet 40 mg PO QPM levothyroxine 75 mcg tablet 75 mcg PO QAM Rx Instructions: 30 MINUTES BEFORE BREAKFAST WITH WATER ONLY amiodarone 100 mg tablet 100 mg PO DAILY potassium chloride 20 mEq tablet extended release 10 meq PO BEDTIME polyethylene glycol 3350 [Miralax] 17 gram/dose Powder 17 g PO DAILY doxazosin 2 mg tablet 2 mg PO BEDTIME Rx Instructions: PER RENAL hydrocodone-acetaminophen 5-325 mg tablet 1 tab PO Q6H PRN (Reason: pain) Qty: 20 0RF Changed Lantus Solostar U-100 Insulin 100 unit/mL (3 mL) insulin pen 20 unit SUBCUT QAM Qty: 1 0RF Rx Instructions: Dose change only, do not send script Discontinued losartan 50 mg tablet 50 mg PO QAM Discharge Orders: Discharge Order (Routine); Ordered 03/17/24 Ordered By: Kin Aggarwal Referrals: Justo Garcia MD [Referring] - 2 weeks (Dr. Garcia's Office has your information and will be calling you to schedule a follow up appointment. You can also call them if you have any questions or concerns. Thank you.) Mann Garduno MD [Primary Care Provider] - 03/29/24 10:30 am Discharge Diet: As Directed Discharge Activity: Increase activity as tolerated and Limit activity as instructed Patient Instructions: Cefdinir (By mouth), Heart Failure (DC), Urinary Tract Infection in Women (DC), Pelvic Fracture (GEN), Sepsis (DC), Fall Prevention (GEN), CHF Stoplight Activity Restrictions/Additional Instructions: Continue renal diabetic, dialysis diet. Completed treatment course for urinary tract infection with cefdinir. Follow-up with your primary doctor for reassessment of recovery. Continue follow-up with nephrology. Seek medical attention in case of any worsening or new concerning symptoms. For pelvic fracture with extension to the right hip as discussed, follow up with orthopedics in office, Dr Garcia or colleague. Continue cautious weight bearing as tolerated. Maintain strict fall prevention. Discharge Attestations Time Spent in Discharge Care*: greater than 30 min Status at Discharge: Cognitive status at discharge: cognitively intact, Behavioral status at discharge: cooperative, Quality Metrics Clinical Quality Measures [ No reported AMI, CVA or VTE this stay] Coding Level of Care Code 26923 Total time (in minutes) for Discharge: 75 Diagnoses ESRD (end stage renal disease) on dialysis N18.6; Z99.2
[2024-03-17 14:21] VITALS: BP 112/61; PULSE 78; RESP 16; TEMP 36.7; O2SAT 95
== END 2024-03-17 14:22 | disposition home or self-care (01) | DRG 871 ==
LOC: ER 08:53 → ICU 15:09 → MEDSURG 03-16 13:39
PROVIDERS: Admitting Provider Internal Medicine; Emergency Provider Emergency Medicine; PCP Family Medicine; Visit Provider Internal Medicine
DX: A41.9 Sepsis, unspecified organism (principal); N18.6 End stage renal disease; N39.0 Urinary tract infection, site not specified; Z16.24 Resistance to multiple antibiotics; I48.20 Chronic atrial fibrillation, unspecified; I13.2 Hypertensive heart and chronic kidney disease with heart failure and with stage 5 chronic kidney disease, or end stage renal disease; B96.20 Unspecified Escherichia coli [E. coli] as the cause of diseases classified elsewhere; Z79.01 Long term (current) use of anticoagulants; I50.9 Heart failure, unspecified; E03.9 Hypothyroidism, unspecified; D63.1 Anemia in chronic kidney disease; Z99.2 Dependence on renal dialysis; E11.22 Type 2 diabetes mellitus with diabetic chronic kidney disease; E11.649 Type 2 diabetes mellitus with hypoglycemia without coma; Z79.4 Long term (current) use of insulin; K21.9 Gastro-esophageal reflux disease without esophagitis; Z87.891 Personal history of nicotine dependence; E78.5 Hyperlipidemia, unspecified; L89.159 Pressure ulcer of sacral region, unspecified stage; L89.629 Pressure ulcer of left heel, unspecified stage; L89.619 Pressure ulcer of right heel, unspecified stage; S32.89XD Fracture of other parts of pelvis, subsequent encounter for fracture with routine healing
CPT/HCPCS: 36415; 36416; 71045; 74176; 80053; 81001; 82962; 83605; 83735; 84100; 85025; 86140; 87040; 87077; 87086; 87186; 93005; 96365; 96367; 96372; 99285; J1815; J2020; J2185; J3475; J7030

== ENCOUNTER → 2024-03-23 16:00 | Outpatient (BNVA) | payer MEDICARE, SELFPAY | PROVIDERS: PCP Family Medicine; Visit Provider Thoracic Surgery (Cardiothoracic Vascular Surgery) | DX: I96 Gangrene, not elsewhere classified (principal); L89.613 Pressure ulcer of right heel, stage 3; L89.623 Pressure ulcer of left heel, stage 3; L89.313 Pressure ulcer of right buttock, stage 3 | CPT/HCPCS: 99212 ==

== ENCOUNTER → 2024-03-31 15:39 | Outpatient (BNVA) | payer MEDICARE, SELFPAY | PROVIDERS: PCP Family Medicine; Visit Provider Thoracic Surgery (Cardiothoracic Vascular Surgery) | DX: I96 Gangrene, not elsewhere classified (principal); L89.613 Pressure ulcer of right heel, stage 3; L89.623 Pressure ulcer of left heel, stage 3 | CPT/HCPCS: 97597 ==

== ENCOUNTER → 2024-04-07 11:04 | Outpatient (BNVA) | payer MEDICARE, SELFPAY | PROVIDERS: PCP Family Medicine; Visit Provider Thoracic Surgery (Cardiothoracic Vascular Surgery) | DX: L89.613 Pressure ulcer of right heel, stage 3 (principal); Z09 Encounter for follow-up examination after completed treatment for conditions other than malignant neoplasm | CPT/HCPCS: 99212 ==

== ENCOUNTER → 2024-04-14 09:55 | Outpatient (BNVA) | payer MEDICARE, SELFPAY | PROVIDERS: PCP Family Medicine; Visit Provider Thoracic Surgery (Cardiothoracic Vascular Surgery) | DX: L89.613 Pressure ulcer of right heel, stage 3 (principal); I96 Gangrene, not elsewhere classified | CPT/HCPCS: 97597 ==

== ENCOUNTER 2024-04-16 13:42 | Inpatient (IN) | payer MEDICARE, SELFPAY ==
[2024-04-16 13:47] VITALS: BP 90/50; PULSE 96; RESP 18; TEMP 36.9; O2SAT 92
--- NOTE | 2024-04-16 16:18 | ED_ITS ---
HPI - Female Genitourinary 2 General: Chief complaint: Urogenital-Female Stated complaint: being treated for uti doesnt feel good Time Seen by Provider: 04/16/24 15:58 History of Present Illness: 83-year-old female presents to the [facility] ency room with complaints of just generally not feeling well. She states usually when she gets like to she has a bladder infection she was hospitalized about a month ago for the same type issue. She had a urine culture that grew out E. coli with multiple resistance. She is currently on Macrobid. She denies any fever sweats chills although subjectively she feels hot at times she denies shortness of breath abdominal pain or flank pain no hematuria. Associated symptoms: Deny abdominal pain Review of Systems 2 Const: Denies: fever(s) or chills Card: Denies: chest pain Resp: Denies: dyspnea GI: Denies: abdominal pain : Denies: dysuria, urinary frequency or urinary urgency Musc: Denies: neck pain or back pain Skin/Breast: Denies: rash PFSH ED 2 PFSH: Medical History Pubic ramus fracture Closed fracture of single pubic ramus of pelvis Pelvic fracture Acute respiratory failure with hypoxia Hypoxemia Atrial fibrillation PVC (premature ventricular contraction) Hypoglycemia associated with type 2 diabetes mellitus Pneumonia due to COVID-19 virus ESRD on peritoneal dialysis Atrial fibrillation Acute kidney injury superimposed on CKD Pneumonia Osteoarthritis (arthritis due to wear and tear of joints) Altered mental status Meningioma Anemia COVID-19 resolved Hypothyroidism GERD (gastroesophageal reflux disease) HTN (hypertension) CHF (congestive heart failure) CKD (chronic kidney disease) Diabetes Surgical History Peritoneal dialysis catheter in situ (06/26/21) History of ankle surgery S/P tonsillectomy Status post tubal ligation S/P cataract extraction S/P cervical spinal fusion Family History Mother Hypertension Grandmother Hypertension MATERNAL Other Cancer Diabetes Social History Smoking and tobacco/nicotine status: never used tobacco/nicotine Quit status (tobacco/nicotine): has quit using Year quit tobacco: 1977 [id number] Second hand smoke exposure: Yes Alcohol intake: never Substance/Drug Use: never Caregiver/support person: Yes Lives independently: Yes Household members: spouse and children Housing: House Marital status: Current occupational status: retired Pets and animals: Yes Do you think of yourself as: Straight/Heterosexual Current gender identity: Female Physical Exam 2 Const: COMMON NORMALS: no acute distress GENERAL APPEARANCE: cooperative and comfortable ORIENTATION/CONSCIOUSNESS: Yes awake, Yes oriented to person, Yes oriented to place and Yes oriented to time HENMT: COMMON NORMALS: normocephalic, atraumatic and hearing grossly normal bilaterally HEAD & SCALP: normocephalic and atraumatic Resp: COMMON NORMALS: normal respiratory effort, No retractions, No use of accessory muscles and clear to auscultation bilaterally AUSCULTATION: clear to auscultation bilaterally Cardio: COMMON NORMALS: regular rate, regular rhythm and No murmurs present (Cardio) RATE: regular rate RHYTHM: regular rhythm GI: COMMON NORMALS: Soft to palpation and No hepatosplenomegaly present A USCULTATION: Yes normoactive bowel sounds PALPATION: Yes Soft to palpation, No Tenderness to palpation present (GI), No Guarding due to palpation present (GI) and Yes No hepatosplenomegaly present Extremity: COMMON NORMALS: normal to inspection, capillary refill normal, no clubbing, cyanosis or edema, no calf tenderness and no pedal edema Neuro: SENSORIUM/ORIENTATION: Yes oriented to person, Yes oriented to place and Yes oriented to time Skin: COMMON NORMALS: no rashes or lesions noted GENERAL SKIN EXAM: no rashes or lesions noted Course 2 Vital Signs: Vital signs: Vital Signs Temperature 98.4 F 04/16/24 13:47 Pulse Rate 81 04/16/24 17:53 Respiratory Rate 18 04/16/24 13:47 Blood Pressure 126/56 04/16/24 17:53 Pulse Oximetry 95 04/16/24 17:53 Oxygen Delivery Me thod Room Air 04/16/24 13:47 MDM - Female Medical Decision Making Patient presents emergency room with signs of sepsis. Lactate elevated leukocytosis cystitis noted on urine. Culture from previous hospitalization reviewed susceptible to Zosyn started on Zosyn patient has failed outpatient medication and is altered mental status as well as signs of sepsis blood pressure did transiently dipped to 90s and then responded to fluid bolus. Lab Data 04/16/24 17:09 04/16/24 17:09 Laboratory Results WBC 15.73 10^3/uL (3.29-11.43) H 04/16/24 17:09 RBC 3.61 10^6/uL (3.85-5.65) L 04/16/24 17:09 Hgb 11.00 g/dL (11.27-16.99) L 04/16/24 17:09 Hct 35.0 % (36-47) L 04/16/24 17:09 MCV 97.0 fl (85-98) 04/16/24 17:09 MCH 30.5 pg (27-33) 04/16/24 17:09 MCHC 31.4 g/dL (30-55) 04/16/24 17:09 RDW 13.3 % (12.1-15.1) 04/16/24 17:09 Plt Count 325 10^3/cmm (157-399) 04/16/24 17:09 MPV 10.0 fL (7.4-10.4) 04/16/24 17:09 Neut % (Auto) 79.6 % 04/16/24 17:09 Lymph % (Auto) 10.7 % 04/16/24 17:09 [place] % (Auto) 3.7 % 04/16/24 17:09 Eos % (Auto) 4.5 % 04/16/24 17:09 Baso % (Auto) 0.4 % 04/16/24 17:09 Neut # (Auto) 12.52 10^3/uL (1.8-7.7) H 04/16/24 17:09 Lymph # (Auto) 1.7 10^3/uL (0.8-4.8) 04/16/24 17:09 [place] # (Auto) 0.6 10^3/uL (0.2-0.9) 04/16/24 17:09 Eos # (Auto) 0.7 10^3/uL (0.0-0.8) 04/16/24 17:09 Baso # (Auto) 0.1 10^3/uL (0.0-0.1) 04/16/24 17:09 Nucleated RBC % (auto) 0 % 04/16/24 17:09 Nucleated RBCs # 0.0 /100WBC 04/16/24 17:09 Sodium 136 mmol/L (136-145) 04/16/24 17:09 Potassium 3.7 mmol/L (3.5-5.1) 04/16/24 17:09 Chloride 96 mmol/L (98-107) L 04/16/24 17:09 Carbon Dioxide 26 mmol/L (22-29) 04/16/24 17:09 Anion Gap 17.7 (5-19) 04/16/24 17:09 BUN 41 mg/dL (8-23) H 04/16/24 17:09 Creatinine 4.2 mg/dL (0.5-0.9) H 04/16/24 17:09 GFR Calculation Not Reportable 04/16/24 17:09 Glucose 283 mg/dL (65-115) H 04/16/24 17:09 Calculated Osmolality 302 mOsm/kg (285-295) H 04/16/24 17:09 Lactic Acid 2.6 mmol/L (0.5-2.2) H 04/16/24 17:09 Calcium 8.7 mg/dL (8.5-10.5) 04/16/24 17:09 Total Bilirubin 0.3 mg/dL (0.15-1.2) 04/16/24 17:09 AST 11 U/L (0-32) 04/16/24 17:09 ALT 17 U/L (0-33) 04/16/24 17:09 Alkaline Phosphatase 92 U/L (35-105) 04/16/24 17:09 Total Protein 6.4 g/dL (6.6-8.7) L 04/16/24 17:09 Albumin 2.9 g/dL (3.5-5.2) L 04/16/24 17:09 Globulin 3.5 g/dL (1.3-4.6) 04/16/24 17:09 Urine Color Yellow (Yellow) 04/16/24 16:40 Urine Appearance Cloudy (CLEAR) A 04/16/24 16:40 Urine pH 5 (5-7) 04/16/24 16:40 Ur Specific [place] 1.025 (1.005-1.030) 04/16/24 16:40 Urine Protein 2+ (Negative) H 04/16/24 16:40 Urine Glucose (UA) Norm (Normal) 04/16/24 16:40 Urine Ketones Negative (Negative) 04/16/24 16:40 Urine Blood 2+ (Negative) H 04/16/24 16:40 Urine Nitrate Negative (Negative) 04/16/24 16:40 Urine Bilirubin 1+ (Negative) H 04/16/24 16:40 Urine Urobilinogen Norm mg/dL (Negative) 04/16/24 16:40 Ur Leukocyte Esterase 2+ (Negative) H 04/16/24 16:40 Urine RBC 5-10 /hpf (0-2) H 04/16/24 16:40 Urine WBC Too numerous to cnt /hpf (0-5) H 04/16/24 16:40 Ur Squamous Epith Cells 5-10 /hpf (0-5) H 04/16/24 16:40 Amorphous Sediment Not Reportable 04/16/24 16:40 Urine Bacteria 1+ /hpf (NONE) H 04/16/24 16:40 No radiology studies performed this visit Discharge Plan Discharge Patient Disposition: Admitted As Inpatient Clinical Impression: Cystitis, Sepsis, ESRD (end stage renal disease) on dialysis Condition: Stable Prescriptions: No Action Lantus Solostar U-100 Insulin 100 unit/mL (3 mL) insulin pen 28 unit SUBCUT QAM (DME) Contour Next Test Strips Strip See Rx Instructions .ROUTE .COMPLEX Qty: 300 6RF Dose Instruction: USE 1 STRIP TO CHECK GLUCOSE THREE TIMES DAILY Rx Instructions: USE 1 STRIP TO CHECK GLUCOSE THREE TIMES DAILY (DME) blood-glucose meter [OneTouch Ultra2 Meter] Misc See Rx Instructions .Route Qty: 1 0RF Rx Instructions: As directed (DME) lancets [OneTouch Delica Plus Lancet] 33 gauge misc See Rx Instructions .Route Qty: 100 12RF Rx Instructions: As directed (DME) pen needle, diabetic [BD Ultra-Fine Short Pen Needle] 31 gauge x 5/16 needle See Rx Instructions .ROUTE .COMPLEX Qty: 100 6RF Dose Instruction: USE TO INJECT INSULIN 2-3 TIMES A DAY Rx Instructions: USE TO INJECT INSULIN 2-3 TIMES A DAY (DME) OneTouch Ultra Test Strip See Rx Instructions .ROUTE .COMPLEX Qty: 200 3RF Dose Instruction: USE TO CHECK GLUCOSE THREE TIMES DAILY Rx Instructions: USE TO CHECK GLUCOSE THREE TIMES DAILY Eliquis 5 mg tablet 2.5 mg PO BID Qty: 90 3RF Rx Instructions: 340 B nitrofurantoin monohyd/m-cryst [Macrobid] 100 mg capsule 100 mg PO BID Qty: 60 3RF Rx Instructions: must administer with a meal/food amlodipine 5 mg tablet 5 mg PO DAILY coenzyme Q10 [CoQ-10] 100 mg Capsule 100 mg PO BEDTIME RenaPlex-D 800 mcg-12.5 mg -2,000 unit tablet 1 tab PO DAILY furosemide 40 mg tablet 80 mg PO BID atorvastatin 40 mg tablet 40 mg PO QPM levothyroxine 75 mcg tablet 75 mcg PO QAM Rx Instructions: 30 MINUTES BEFORE BREAKFAST WITH WATER ONLY amiodarone 100 mg tablet 100 mg PO DAILY potassium chloride 20 mEq tablet extended release 10 meq PO BEDTIME polyethylene glycol 3350 [Miralax] 17 gram/dose Powder 17 g PO DAILY doxazosin 2 mg tablet 2 mg PO BEDTIME Rx Instructions: PER RENAL hydrocodone-acetaminophen 5-325 mg tablet 1 tab PO Q6H PRN (Reason: pain) Qty: 20 0RF Referrals: Mann Garduno MD [Primary Care Provider] - Coding Level of Care Code ED [facility] Associate for [facility] G [facility]
[2024-04-16 17:17] LABS: Urine Appearance Cloudy (CLEAR); Urine Color Yellow (Yellow)
[2024-04-16 17:18] LABS: Add Urine Culture? Yes; Add Urine Microscopic? YES; Bacteria Urine 1+ /hpf; Bilirubin Urine 1+ (Negative); Blood Urine 2+ (Negative); Glucose Urine UA Norm (Normal); Ketones Urine Negative (Negative); Leukocyte Esterase Urine 2+ (Negative); Nitrate Urine Negative (Negative); Protein Urine 2+ (Negative); Specific Gravity, Urine 1.025 (1.005-1.030); Urobilinogen Urine Norm (Negative); WBC Urine TOO NUMEROUS TO CNT /hpf (0-5); pH Urine 5 (5-7)
[2024-04-16 17:18] LABS: Basophils # 0.1 10^3/uL (0.0-0.1); Basophils % 0.4 %; Eosinophils # 0.7 10^3/uL (0.0-0.8); Eosinophils % 4.5 %; Lymphocytes # 1.7 10^3/uL (0.8-4.8); Lymphocytes % 10.7 %; Mean Corpuscular HGB Conc 31.4 g/dL (30-55); Mean Corpuscular Hemoglobin 30.5 pg (27-33); Monocytes # 0.6 10^3/uL (0.2-0.9); Monocytes % 3.7 %; Neutrophils # 12.52 10^3/uL (1.8-7.7); Neutrophils % 79.6 %; Nucleated Red Blood Cells % 0 %; Platelet Count 325 10^3/cmm (157-399); Red Blood Count 3.61 10^6/uL (3.85-5.65); Red Cell Distribution Width 13.3 % (12.1-15.1); White Blood Count 15.73 10^3/uL (3.29-11.43)
[2024-04-16 17:35] LABS: Alanine Aminotransferase 17 U/L (0-33); Albumin Level 2.9 g/dL (3.5-5.2); Alkaline Phosphatase 92 U/L (35-105); Anion Gap 17.7 (5-19); Aspartate Amino Transferase 11 U/L (0-32); Blood Urea Nitrogen 41 mg/dL (8-23); Calcium 8.7 mg/dL (8.5-10.5); Carbon Dioxide 26 mmol/L (22-29); Chloride 96 mmol/L (98-107); Globulin 3.5 g/dL (1.3-4.6); Glucose 283 mg/dL (65-115); Lactic Sepsis W/Reflex 2.6 mmol/L (0.5-2.2); Osmolality Calculated 302 mOsm/kg (285-295); Potassium 3.7 mmol/L (3.5-5.1); Sodium 136 mmol/L (136-145); Total Bilirubin 0.3 mg/dL (0.15-1.2); Total Protein 6.4 g/dL (6.6-8.7)
[2024-04-16 17:52] LABS: Creatinine Clr Calc Pharmacy 9.8452
[2024-04-16 17:53] VITALS: BP 126/56; PULSE 81; O2SAT 95
[2024-04-16 18:00] VITALS: BP 126/56; O2SAT 95
[2024-04-16] MEDS: sodium chloride 0.9% 1,000 ML 999 ML IV (18:06)
[2024-04-16] MEDS: MEROPENEM 2,000 MG in sodium chloride 0.9% (plus) 50 ML 100 MG IV (18:06)
[2024-04-16 18:30] VITALS: BP 121/82; O2SAT 95
[2024-04-16 19:01] LABS: Reflex Lactate Order REFLEX LACTIC ORDERD
[2024-04-16 19:20] VITALS: BMI 35.2
[2024-04-16 19:54] VITALS: BP 134/67; PULSE 92; RESP 18; TEMP 36.9; O2SAT 91
--- NOTE | 2024-04-16 19:54 | P.HP_ITS ---
Providers/Chief Complaint 2 Admitting Physician: Maria L Toro MD Primary Care Provider: Mann Garduno MD Chief Complaint: being treated for uti doesnt feel good History of Present Illness Luiza Cooper is a 83 year old female with h/o being on PD, presenting to the ER today with c.o low grade fever, generalized weakness over the past few days, She was recently diagnosed with a uti for hwich she has been on treatment with Nitrofurantoin. Family states she has been confused recently similar to her prior episodes. She is currently awake , alert and oriented x 3 at time of this assessment. . Review of Systems 2 General: Reports: 10 or more systems reviewed and unremarkable except in HPI and below Const: Denies: fever(s), chills or body aches Eyes: Denies: change in vision, blurry vision or photophobia ENMT: Reports: hoarseness; Denies: throat pain, enlarged tonsils, odynophagia or nasal congestion Card: Denies: chest pain, palpitations, irregular heart rhythm, edema, swelling of feet/ankles, lightheadedness, pre-syncope, dyspnea on exertion or orthopnea Resp: Denies: dyspnea, productive cough, non-productive cough, wheezing, stridor, pain on inspiration, change in phlegm color, hemoptysis or chest congestion GI: Denies: abdominal pain, nausea, vomiting, hematemesis, coffee ground emesis, dysphagia, heartburn, diarrhea, constipation, GI cramping, change in stool character, hematochezia or melena : Denies: flank pain, difficulty voiding, dysuria, urinary frequency, urinary urgency, urinary hesitancy or hematuria Musc: Denies: neck pain, back pain, extremity pain, joint swelling, joint warmth or deformity Neuro: Denies: headache(s), numbness in extremities, weakness in extremities, sensory changes, difficulty walking, frequent falls, dizziness, vertigo, behavioral changes, Slurred speech present or seizure-like activity Psych: Denies: anxiety, depression, suicidal ideation or homicidal ideation Endo: Denies: polyuria, polydipsia, tired all the time, cold intolerance or hot flashes Newton/Lymph: Denies: easy bruising or easy bleeding Medications/Allergies Home Medications Medication Instructions Recorded Confirmed Last Taken Type blood sugar diagnostic (Contour #300 ea 10/08/22 04/16/24 Unknown Rx Next Test Strips) blood-glucose meter (OneTouch #1 ea 10/13/22 04/16/24 Unknown Rx Ultra2 Meter) lancets 33 gauge (OneTouch Delica #100 ea 10/13/22 04/16/24 Unknown Rx Plus Lancet) pen needle, diabetic 31 gauge x #100 ea 10/27/23 04/16/24 Unknown Rx 5/16 (BD Ultra-Fine Short Pen Needle) blood sugar diagnostic (OneTouch #200 ea 11/19/23 04/16/24 Unknown Rx Ultra Test strips) amiodarone 100 mg tablet 100 mg PO DAILY 11/27/23 04/16/24 04/16/24 History amlodipine 5 mg tablet 5 mg PO DAILY 11/27/23 04/16/24 04/16/24 History atorvastatin 40 mg tablet 40 mg PO QPM 11/27/23 04/16/24 04/15/24 History coenzyme Q10 100 mg capsule 100 mg PO BEDTIME 11/27/23 04/16/24 04/15/24 History (CoQ-10) furosemide 40 mg tablet 80 mg PO BID 11/27/23 04/16/24 04/16/24 History levothyroxine 75 mcg tablet 75 mcg PO QAM 11/27/23 04/16/24 04/16/24 History potassium chloride 20 mEq 10 meq PO BEDTIME 11/27/23 04/16/24 04/15/24 History tablet,extended release vit B,C-folic ac 800 mcg-zinc 12.5 1 tab PO DAILY 11/27/23 04/16/24 04/16/24 History mg-selen-D3 2,000 unit-vit E tablet (RenaPlex-D) doxazosin 2 mg tablet 2 mg PO BEDTIME 01/27/24 04/16/24 04/15/24 History hydrocodone 5 mg-acetaminophen 325 1 tab PO Q6H PRN pain #20 tabs 01/27/24 04/16/24 04/15/24 Rx mg tablet polyethylene glycol 3350 17 17 g PO PRN PRN Constipation 01/27/24 04/16/24 04/15/24 History gram/dose oral powder (Miralax) apixaban 5 mg tablet (Eliquis) 2.5 mg (1/2 x 5 mg) PO BID #90 tabs 03/02/24 04/16/24 04/16/24 Rx insulin glargine 100 unit/mL (3 28 unit SUBCUT QAM 03/29/24 04/16/24 04/15/24 History mL) subcutaneous pen (Lantus Solostar U-100 Insulin) nitrofurantoin 100 mg PO BID UTI Prophylaxis #60 04/13/24 04/16/24 04/16/24 Rx monohydrate/macrocrystals 100 mg caps capsule (Macrobid) Allergies Allergy/AdvReac Type Severity Reaction Status Date / Time Penicillins Allergy Unknown Rash,Unknow Verified 04/16/24 13:54 n PFSH Acute 2 PFSH: Medical History Pubic ramus fracture Closed fracture of single pubic ramus of pelvis Pelvic fracture Acute respiratory failure with hypoxia Hypoxemia Atrial fibrillation PVC (premature ventricular contraction) Hypoglycemia associated with type 2 diabetes mellitus Pneumonia due to COVID-19 virus ESRD on peritoneal dialysis Atrial fibrillation Acute kidney injury superimposed on CKD Pneumonia Osteoarthritis (arthritis due to wear and tear of joints) Altered mental status Meningioma Anemia COVID-19 resolved Hypothyroidism GERD (gastroesophageal reflux disease) HTN (hypertension) CHF (congestive heart failure) CKD (chronic kidney disease) Diabetes Surgical History Peritoneal dialysis catheter in situ (06/26/21) History of ankle surgery S/P tonsillectomy Status post tubal ligation S/P cataract extraction S/P cervical spinal fusion Family History Mother Hypertension Grandmother Hypertension MATERNAL Other Cancer Diabetes Social History Smoking and tobacco/nicotine status: never used tobacco/nicotine Quit status (tobacco/nicotine): has quit using Year quit tobacco: 1977 [id number] Second hand smoke exposure: Yes Alcohol intake: never Substance/Drug Use: never Caregiver/support person: Yes Lives independently: Yes Household members: spouse and children Housing: House Marital status: Current occupational status: retired Pets and animals: Yes Do you think of yourself as: Straight/Heterosexual Current gender identity: Female Vitals/I&O/Wt Last Vital Signs Temp 98.4 F 04/16/24 13:47 Pulse 81 04/16/24 17:53 Resp 18 04/16/24 13:47 BP 121/82 04/16/24 18:30 Pulse Ox 95 04/16/24 18:30 O2 Del Method Room Air 04/16/24 13:47 Weight last 48 hrs Weight 78.471 kg Physical Exam 2 Narrative: General: No acute distress, AO x3 HEENT: PERRLA, pupils bilaterally equal and reactive, pallors not present Chest: Normal vesicular breath sounds, no added sounds, equal good air entry bilaterally CVS: S1-S2 regular, no murmurs, no tachycardia, no gallops, no rubs Abdomen: Soft, nontender, no organomegaly, bowel sounds present Neuro: No focal deficits, no facial deformity, AO x3, power 5/5 in all limbs Extremities: intertrigo, herpes stomatitis Data 04/17/24 02:50 04/17/24 02:50 Micro: Microbiology 04/16/24 18:15 Blood Culture - Preliminary Blood SPECIMEN COLLECTED 04/16/24 18:26 Blood Culture - Preliminary Blood SPECIMEN COLLECTED A&P Assessment and plan (1) UTI (urinary tract infection): (2) Leukocytosis: (3) Decubitus ulcer, buttock: (4) Heel ulcer: Plan 83-year-old lady 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 States that she was diagnosed with a UTI recently, cultures had shown E. coli at that time with multiple resistance. She received Macrobid but continued to feel worse. She denies any fever but has noted some chills at home. Noted to have leukocytosis. Possibilities include UTI given that urine continues to show multiple WBCs, positive leukocyte esterase and nitrate in spite of outpatient treatment with nitrofurantoin. Since she has failed outpatient management, will start treatment with IV antibiotics. Started on IV cefepime 1 g IV 24 hours renally dosed for peritoneal dialysis. Pending urine culture. Additionally will check for PD associated peritonitis, ordered for body fluid culture Gram stain and fluid analysis. 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 Discontinue IV fluids, currently on 100 cc/hr Nephrology consult to continue PD while in the hospital. Patient has sacral ulcer and heel ulcer for which she follows with wound care. Local care to continue. These do not appear to be grossly infected. Home medication list needs to be confirmed. Attestations 2 Medical Necessity Statement*: Greater than 2 midnight admission is anticipated for IV antibiotics, failure of recent outpatient treatment of UTI. Coding Level of Care Code Acute Code for Chg Fwd Moderate MDM includes number and complexity of problems actively addressed during encounter, amount and/or complexity of data reviewed/ordered and described risk of complication, morbidity or mortality of management as documented Diagnoses UTI (urinary tract infection) N39.0 Leukocytosis D72.829 Decubitus ulcer, buttock L89.309 Heel ulcer L97.409
[2024-04-16 20:39] LABS: Glucose Point of Care 228 mg/dL (70-110)
[2024-04-16] MEDS: sodium chloride 0.9% 1,000 ML 100 ML IV (20:55)
[2024-04-16 20:58] LABS: Lactic Acid level (Lactate) 1.7 mmol/L (0.5-2.2)
[2024-04-16] MEDS: valACYclovir 1,000 mg Tablet 500 MG PO (20:59)
[2024-04-16 23:47] VITALS: BP 133/69; PULSE 67; RESP 18; TEMP 36.6; O2SAT 91
[2024-04-17] VITALS (7 sets, daily range): BP systolic 132–151; BP diastolic 60–75; PULSE 65–91; RESP 16–18; TEMP 36.4–37.1; O2SAT 91–93
[2024-04-17 04:00] LABS: Basophils % 0.4 %; Eosinophils # 0.7 10^3/uL (0.0-0.8); Hematocrit 30.6 % (36-47); Lymphocytes # 2.1 10^3/uL (0.8-4.8); Mean Corpuscular Hemoglobin 30.3 pg (27-33); Mean Corpuscular Volume 97.5 fl (85-98); Mean Platelet Volume 10.2 fL (7.4-10.4); Monocytes # 0.5 10^3/uL (0.2-0.9); Neutrophils # 7.46 10^3/uL (1.8-7.7); Neutrophils % 68.3 %; Nucleated Red Blood Cells % 0 %; Platelet Count 266 10^3/cmm (157-399); Red Blood Count 3.14 10^6/uL (3.85-5.65); Red Cell Distribution Width 13.4 % (12.1-15.1)
[2024-04-17 04:26] LABS: Alanine Aminotransferase 14 U/L (0-33); Albumin Level 2.5 g/dL (3.5-5.2); Alkaline Phosphatase 72 U/L (35-105); Anion Gap 16.3 (5-19); Aspartate Amino Transferase 9 U/L (0-32); Blood Urea Nitrogen 36 mg/dL (8-23); Calcium 7.9 mg/dL (8.5-10.5); Carbon Dioxide 25 mmol/L (22-29); Chloride 106 mmol/L (98-107); Creatinine Clr Calc Pharmacy 10.9211; Globulin 2.8 g/dL (1.3-4.6); Glucose 104 mg/dL (65-115); Osmolality Calculated 307 mOsm/kg (285-295); Potassium 3.3 mmol/L (3.5-5.1); Sodium 144 mmol/L (136-145); Total Bilirubin 0.2 mg/dL (0.15-1.2); Total Protein 5.3 g/dL (6.6-8.7)
--- NOTE | 2024-04-17 07:49 | P.CONIM_ITS ---
Providers/Reason For Consult 2 Consulting Physician/Specialty*: kommana/nephrology Reason for Consult*: ESRD Attending Physician: Maria L Toro MD Primary Care Provider: Mann Garduno MD History of Present Illness History of Present Illness Luiza Cooper is a 83 year old female Patient is 83-year-old female with past medical history of end-stage renal disease on peritoneal dialysis presented to the emergency department due to low-grade fever generalized weakness. Patient was recently admitted to the hospital for UTI and currently on maintenance nitrofurantoin. Patient currently denies any complaints. Lab data reviewed. Review of Systems 2 Narrative: negative Medications/Allergies Home Medications Medication Instructions Recorded Confirmed Last Taken Type blood sugar diagnostic (Contour #300 ea 10/08/22 04/16/24 Unknown Rx Next Test Strips) blood-glucose meter (OneTouch #1 ea 10/13/22 04/16/24 Unknown Rx Ultra2 Meter) lancets 33 gauge (OneTouch Delica #100 ea 10/13/22 04/16/24 Unknown Rx Plus Lancet) pen needle, diabetic 31 gauge x #100 ea 10/27/23 04/16/24 Unknown Rx 5/16 (BD Ultra-Fine Short Pen Needle) blood sugar diagnostic (OneTouch #200 ea 11/19/23 04/16/24 Unknown Rx Ultra Test strips) amiodarone 100 mg tablet 100 mg PO DAILY 11/27/23 04/16/24 04/16/24 History amlodipine 5 mg tablet 5 mg PO DAILY 11/27/23 04/16/24 04/16/24 History atorvastatin 40 mg tablet 40 mg PO QPM 11/27/23 04/16/24 04/15/24 History coenzyme Q10 100 mg capsule 100 mg PO BEDTIME 11/27/23 04/16/24 04/15/24 History (CoQ-10) furosemide 40 mg tablet 80 mg PO BID 11/27/23 04/16/24 04/16/24 History levothyroxine 75 mcg tablet 75 mcg PO QAM 11/27/23 04/16/24 04/16/24 History potassium chloride 20 mEq 10 meq PO BEDTIME 11/27/23 04/16/24 04/15/24 History tablet,extended release vit B,C-folic ac 800 mcg-zinc 12.5 1 tab PO DAILY 11/27/23 04/16/24 04/16/24 History mg-selen-D3 2,000 unit-vit E tablet (RenaPlex-D) doxazosin 2 mg tablet 2 mg PO BEDTIME 01/27/24 04/16/24 04/15/24 History hydrocodone 5 mg-acetaminophen 325 1 tab PO Q6H PRN pain #20 tabs 01/27/24 04/16/24 04/15/24 Rx mg tablet polyethylene glycol 3350 17 17 g PO PRN PRN Constipation 01/27/24 04/16/24 04/15/24 History gram/dose oral powder (Miralax) apixaban 5 mg tablet (Eliquis) 2.5 mg (1/2 x 5 mg) PO BID #90 tabs 03/02/24 04/16/24 04/16/24 Rx insulin glargine 100 unit/mL (3 28 unit SUBCUT QAM 03/29/24 04/16/24 04/15/24 History mL) subcutaneous pen (Lantus Solostar U-100 Insulin) nitrofurantoin 100 mg PO BID UTI Prophylaxis #60 04/13/24 04/16/24 04/16/24 Rx monohydrate/macrocrystals 100 mg caps capsule (Macrobid) Allergies Allergy/AdvReac Type Severity Reaction Status Date / Time Penicillins Allergy Unknown Rash,Unknow Verified 04/16/24 13:54 n Current Medications Generic Name Dose Route Start Last Admin Trade Name Freq PRN Reason Stop Dose Admin Heparin Sodium (Porcine) 5,000 unit 04/16/24 20:00 04/16/24 21:00 Heparin 5,000 Unit/Ml Inj 1 Ml SUBCUT Not Given Q12H NIKO Valacyclovir HCl 500 mg 04/16/24 20:00 04/16/24 20:59 Valacyclovir 1,000 Mg Tablet PO 500 mg Q24H NIKO Administration PFSH Acute 2 PFSH: Medical History Pubic ramus fracture Closed fracture of single pubic ramus of pelvis Pelvic fracture Acute respiratory failure with hypoxia Hypoxemia Atrial fibrillation PVC (premature ventricular contraction) Hypoglycemia associated with type 2 diabetes mellitus Pneumonia due to COVID-19 virus ESRD on peritoneal dialysis Atrial fibrillation Acute kidney injury superimposed on CKD Pneumonia Osteoarthritis (arthritis due to wear and tear of joints) Altered mental status Meningioma Anemia COVID-19 resolved Hypothyroidism GERD (gastroesophageal reflux disease) HTN (hypertension) CHF (congestive heart failure) CKD (chronic kidney disease) Diabetes Surgical History Peritoneal dialysis catheter in situ (06/26/21) History of ankle surgery S/P tonsillectomy Status post tubal ligation S/P cataract extraction S/P cervical spinal fusion Family History Mother Hypertension Grandmother Hypertension MATERNAL Other Cancer Diabetes Social History Smoking and tobacco/nicotine status: never used tobacco/nicotine Quit status (tobacco/nicotine): has quit using Year quit tobacco: 1977 [id number] Second hand smoke exposure: Yes Alcohol intake: never Substance/Drug Use: never Caregiver/support person: Yes Lives independently: Yes Household members: spouse and children Housing: House Marital status: Current occupational status: retired Pets and animals: Yes Do you think of yourself as: Straight/Heterosexual Current gender identity: Female Vitals/I&O/Wt Last Vital Signs Temp 98.0 F 04/17/24 07:37 Pulse 82 04/17/24 07:37 Resp 16 04/17/24 07:37 BP 151/68 04/17/24 07:37 Pulse Ox 91 04/17/24 07:37 O2 Del Method Room Air 04/16/24 19:54 04/16/24 04/17/24 04/17/24 22:59 06:59 14:59 Intake Total 1290 / 1290 1240 / 2530 Output Total 300 / 300 Balance 1290 / 1290 940 / 2230 Weight last 48 hrs Weight 81.788 kg Weight 81.873 kg Weight 78.471 kg Physical Exam 2 Narrative: Patient is awake alert no distress HEENT S1-S2 regular rate and rhythm per report Lungs clear per report No pedal edema Data 04/17/24 02:50 04/17/24 02:50 Micro: Microbiology 04/16/24 18:15 Blood Culture - Preliminary Blood SPECIMEN COLLECTED 04/16/24 18:26 Blood Culture - Preliminary Blood SPECIMEN COLLECTED A&P Assessment and plan (1) ESRD (end stage renal disease) on dialysis: Plan 1. End-stage renal disease on peritoneal dialysis: Resume home prescription PD- 2.5% solution x 6-hour dwell 2. Hypertension: Resume home medications 3. Hypokalemia: Replete 4. Anemia: Monitor and ANNIE when indicated 5. Question UTI: Management per primary team Patient evaluated using audiovisual cart. Time spent 40 minutes. Consult Attestations 2 Medical Necessity Statement: per yony Coding Level of Care Code Acute Code for g Fwd Diagnoses ESRD (end stage renal disease) on dialysis N18.6; Z99.2
[2024-04-17] MEDS: pantoprazole DR 40 mg Tablet PO (09:11)
[2024-04-17] MEDS: heparin 5,000 unit/mL INJ 1 mL 5000 UNIT SUBCUT (09:11)
[2024-04-17] MEDS: clotrimazole 1% cream 30 gm 1 APPLIC TOPICAL ×2 (09:15→18:35)
--- NOTE | 2024-04-17 11:37 | PC.NURSE ---
begins PD with home supplies.
[2024-04-17 11:45] LABS: Cyto Order Verification No Order
[2024-04-17 12:01] LABS: Apprearance, Body Fluid CLEAR; Body Fluid Polynuclear #Cells 0.012; Body Fluid WBC 27 /uL; Color, Body Fluid COLORLESS; Monocytes # Body Fluid 0.015
[2024-04-17 12:02] LABS: Fluid Laterality Right and Left; PATH Referral YES
--- NOTE | 2024-04-17 17:22 | P.PN_ITS ---
Subjective 2 Subjective: No acute interim events. Patient to get dialysis today. Medications: Reviewed: Yes Vitals/I&O/Wt Last Vital Signs Temp 97.5 F L 04/17/24 11:38 Pulse 87 04/17/24 11:38 Resp 18 04/17/24 11:38 BP 150/75 04/17/24 11:38 Pulse Ox 92 04/17/24 11:38 O2 Del Method Room Air 04/16/24 19:54 04/17/24 04/17/24 04/17/24 06:59 14:59 22:59 Intake Total 1240 / 2530 480 / 480 Output Total 300 / 300 Balance 940 / 2230 480 / 480 Weight last 48 hrs Weight 81.788 kg Weight 81.873 kg Weight 78.471 kg Physical Exam 2 Narrative: General: No acute distress, AO x3 HEENT: PERRLA, pupils bilaterally equal and reactive, pallors not present Chest: Normal vesicular breath sounds, no added sounds, equal good air entry bilaterally CVS: S1-S2 regular, no murmurs, no tachycardia, no gallops, no rubs Abdomen: Soft, nontender, no organomegaly, bowel sounds present Neuro: No focal deficits, no facial deformity, AO x3, power 5/5 in all limbs Extremities: intertrigo, herpes stomatitis Data 04/17/24 02:50 04/17/24 02:50 Micro: Microbiology 04/17/24 11:12 Gram Stain - Final Ascites Fluid 04/16/24 16:40 Urine Culture - Preliminary Urine,Clean Catch Gram Negative Rods 04/16/24 18:15 Blood Culture - Preliminary Blood SPECIMEN COLLECTED 04/16/24 18:26 Blood Culture - Preliminary Blood SPECIMEN COLLECTED A&P Assessment and plan (1) UTI (urinary tract infection): (2) Leukocytosis: (3) Decubitus ulcer, buttock: (4) Heel ulcer: Plan 83-year-old lady 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 States that she was diagnosed with a UTI recently, cultures had shown E. coli at that time with multiple resistance. She received Macrobid but continued to feel worse. She denies any fever but has noted some chills at home. Noted to have leukocytosis. Possibilities include UTI given that urine continues to show multiple WBCs, positive leukocyte esterase and nitrate in spite of outpatient treatment with nitrofurantoin. Since she has failed outpatient management, will start treatment with IV antibiotics. Started on IV cefepime 1 g IV 24 hours renally dosed for peritoneal dialysis. Pending urine culture. Additionally will check for PD associated peritonitis, ordered for body fluid culture Gram stain and fluid analysis. 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 Discontinue IV fluids, currently on 100 cc/hr Nephrology consult to continue PD while in the hospital. Patient has sacral ulcer and heel ulcer for which she follows with wound care. Local care to continue. These do not appear to be grossly infected. Home medication list needs to be confirmed. April 17, 2024. Clinically improving. Feels better. Home medication list now available, continue amiodarone amlodipine doxazosin and Eliquis. Patient to get peritoneal dialysis today. Pending send out of peritoneal fluid to assess for peritonitis. Continue ceftriaxone. Urine culture showing gram-negative rods, pending further identification. Attestations 2 Medical Necessity Statement*: Continued admission for IV antibiotics, peritoneal dialysis today. Coding Level of Care Code Acute Code for Chg Fwd Moderate MDM includes number and complexity of problems actively addressed during encounter, amount and/or complexity of data reviewed/ordered and described risk of complication, morbidity or mortality of management as documented Diagnoses UTI (urinary tract infection) N39.0 Leukocytosis D72.829 Decubitus ulcer, buttock L89.309 Heel ulcer L97.409
[2024-04-17 17:23] LABS: Glucose Point of Care 292 mg/dL (70-110)
[2024-04-17] MEDS: apixaban 5 mg Tablet 2.5 MG PO (18:34)
[2024-04-17] MEDS: FUROsemide 40 mg Tablet 80 MG PO (18:34)
[2024-04-17] MEDS: cefepime 1,000 mg SDV 1000 MG IV (18:34)
[2024-04-17] MEDS: atorvastatin 40 mg Tablet PO (18:34)
[2024-04-17] MEDS: insulin lispro 100 unit/1 mL SUBCUT (18:35)
[2024-04-17 21:21] LABS: Glucose Point of Care 138 mg/dL (70-110)
[2024-04-17] MEDS: valACYclovir 1,000 mg Tablet 500 MG PO (21:48)
[2024-04-17] MEDS: doxazosin 1 mg Tablet 2 MG PO (21:48)
[2024-04-18] VITALS: BP 126/72; PULSE 84; RESP 17; TEMP 36.8; O2SAT 93
[2024-04-18 04:00] VITALS: BP 124/47; PULSE 84; RESP 18; TEMP 36.8; O2SAT 90
[2024-04-18 06:00] VITALS: PULSE 90
[2024-04-18] MEDS: levothyroxine 75 mcg Tablet PO (06:25)
[2024-04-18 06:28] LABS: Glucose Point of Care 99 mg/dL (70-110)
[2024-04-18 08:00] VITALS: BP 143/64; PULSE 96; RESP 17; TEMP 36.8; O2SAT 93
[2024-04-18] MEDS: apixaban 5 mg Tablet 2.5 MG PO (08:07)
[2024-04-18] MEDS: FUROsemide 40 mg Tablet 80 MG PO (08:07)
[2024-04-18] MEDS: amlodipine 5 mg Tablet PO (08:07)
[2024-04-18] MEDS: amiodarone 200 mg Tablet 100 MG PO (08:07)
[2024-04-18] MEDS: pantoprazole DR 40 mg Tablet PO (08:07)
[2024-04-18] MEDS: clotrimazole 1% cream 30 gm 1 APPLIC TOPICAL (08:07)
--- NOTE | 2024-04-18 09:57 | PC.CHAP ---
Pastoral Care Encounter/Spiritual Assessment Type of Contact [] Declined ginseng farmer visit [] Patient/Family/Request visit [] Outpatient visit [] Follow-up visit [] Physician referral [] Code/Alert [x] Routine visit [] Staff referral [] Actively dying [] Patient sleeping [] Family support [] [] Out of room [] Palliative care [] [] Receiving care in room [] Pre-surgical visit [] Trauma [] Long length of stay [] ICU visit [] Other: Relational/Emotional Strength [] Patient feels connected with others/family/visitors/staff [] Distress [] Loneliness/isolation [] Abandonment Spirituality of Patient [x] Person of Betty [] Attends Anglican of their Betty [x] Believes in Prayer [] Reads Bible or Sabianism materials [] There are Spiritual issues to be addressed Lab Head Interventions [x] Prayer [x] Active listening [] Non-anxious presence [] Spiritual/emotional support [] Crisis/trauma care [] Spiritual counseling [] Bereavement support [] Provided bereavement packet [] Provided Bible/devotional materials [] Provided toy/stuffed animal, coloring book to patient or family member [] Provided Communion [] Anointing/[place] [] Salvation [x] Completed spiritual assessment [] Other: Impact on Illness or Injury [] Angry [] Fearful [] Anxious [] Often cries [] Exhaustion [] Unable to work [] Unable to attend denominational [] Unable to walk/stand [] Unable to read [] Unable to drive [] Unable to eat/drink [] Unable to sleep [] Unable to be with family [] Patient intubated [] Other: Summary Time spent with patient 5 min
--- NOTE | 2024-04-18 10:30 | PM.DCS ---
Discharge Providers Date of Admission: 04/16/24 17:58 Date of Discharge: April 18, 2024 Attending Provider at Admission: Maria L Toro MD Attending Provider at Discharge: Leigh Ann Pena MD Primary Care Provider: Mann Garduno MD Diagnoses at Discharge Discharge Diagnosis (1) UTI (urinary tract infection): Status: Acute (2) Leukocytosis: Status: Acute (3) Decubitus ulcer, buttock: Status: Acute (4) Heel ulcer: Status: Acute Reason for Visit Reason for Visit: being treated for uti doesnt feel good Hospital Course Hospital Course 83-year-old lady sent from her md ophthalmologist to the hospital due to chief complaints of confusion, change in mental status. States that she was diagnosed with a UTI recently, cultures had shown E. coli at that time with multiple resistance. She received Macrobid but continued to feel worse. In the hospital patient made hemodynamically stable, she was given cephalosporins throughout hospitalization, for her herpes stomatitis renally dosed Valtrex 500 mg every day was given along IV fluids. Nephrology was consulted to continue peritoneal dialysis. For her sacral and heel ulcer she follows up with wound care. Urine culture is showing gram-negative jessy previous E. coli was sensitive to third-generation cephalosporins and nitrofurantoin. She may resume her nitrofurantoin and I will add cefpodoxime at the time of discharge. No bacteremia. She is afebrile. No leukocytosis. Physical Exam Narrative: Awake and alert Nonfocal neuroexam GCS 15 Pleasant cough Intertrigo Herpes stomatitis healing Discharge Data Studies Completed and Pending Pending at discharge Category Date Time Status Blood Culture Stat Lab 04/16/24 18:15 Results Body Fluid Culture & GS Routine Lab 04/16/24 19:47 Results Urine Culture Stat Lab 04/16/24 16:40 Results Laboratory Results WBC 10.90 10^3/uL (3.29-11.43) 04/17/24 02:50 RBC 3.14 10^6/uL (3.85-5.65) L 04/17/24 02:50 Hgb 9.50 g/dL (11.27-16.99) L 04/17/24 02:50 Hct 30.6 % (36-47) L 04/17/24 02:50 MCV 97.5 fl (85-98) 04/17/24 02:50 MCH 30.3 pg (27-33) 04/17/24 02:50 MCHC 31.0 g/dL (30-55) 04/17/24 02:50 RDW 13.4 % (12.1-15.1) 04/17/24 02:50 Plt Count 266 10^3/cmm (157-399) 04/17/24 02:50 MPV 10.2 fL (7.4-10.4) 04/17/24 02:50 Neut % (Auto) 68.3 % 04/17/24 02:50 Lymph % (Auto) 19.0 % 04/17/24 02:50 [place] % (Auto) 5.0 % 04/17/24 02:50 Eos % (Auto) 6.0 % 04/17/24 02:50 Baso % (Auto) 0.4 % 04/17/24 02:50 Neut # (Auto) 7.46 10^3/uL (1.8-7.7) 04/17/24 02:50 Lymph # (Auto) 2.1 10^3/uL (0.8-4.8) 04/17/24 02:50 [place] # (Auto) 0.5 10^3/uL (0.2-0.9) 04/17/24 02:50 Eos # (Auto) 0.7 10^3/uL (0.0-0.8) 04/17/24 02:50 Baso # (Auto) 0.0 10^3/uL (0.0-0.1) 04/17/24 02:50 Nucleated RBC % (auto) 0 % 04/17/24 02:50 Nucleated RBCs # 0.0 /100WBC 04/17/24 02:50 Differential Comment Yes 04/17/24 11:12 Sodium 144 mmol/L (136-145) 04/17/24 02:50 Potassium 3.3 mmol/L (3.5-5.1) L 04/17/24 02:50 Chloride 106 mmol/L (98-107) 04/17/24 02:50 Carbon Dioxide 25 mmol/L (22-29) 04/17/24 02:50 Anion Gap 16.3 (5-19) 04/17/24 02:50 BUN 36 mg/dL (8-23) H 04/17/24 02:50 Creatinine 3.7 mg/dL (0.5-0.9) H 04/17/24 02:50 GFR Calculation Not Reportable 04/17/24 02:50 Glucose 104 mg/dL (65-115) 04/17/24 02:50 POC Glucose 99 mg/dL (70-110) 04/18/24 06:24 Calculated Osmolality 307 mOsm/kg (285-295) H 04/17/24 02:50 Lactic Acid 2.6 mmol/L (0.5-2.2) H 04/16/24 17:09 Lactic Acid (Sepsis) 1.7 mmol/L (0.5-2.2) 04/16/24 20:28 Calcium 7.9 mg/dL (8.5-10.5) L 04/17/24 02:50 Total Bilirubin 0.2 mg/dL (0.15-1.2) 04/17/24 02:50 AST 9 U/L (0-32) 04/17/24 02:50 ALT 14 U/L (0-33) 04/17/24 02:50 Alkaline Phosphatase 72 U/L (35-105) 04/17/24 02:50 Total Protein 5.3 g/dL (6.6-8.7) L 04/17/24 02:50 Albumin 2.5 g/dL (3.5-5.2) L 04/17/24 02:50 Globulin 2.8 g/dL (1.3-4.6) 04/17/24 02:50 Urine Color Yellow (Yellow) 04/16/24 16:40 Urine Appearance Cloudy (CLEAR) A 04/16/24 16:40 Urine pH 5 (5-7) 04/16/24 16:40 Ur Specific [place] 1.025 (1.005-1.030) 04/16/24 16:40 Urine Protein 2+ (Negative) H 04/16/24 16:40 Urine Glucose (UA) Norm (Normal) 04/16/24 16:40 Urine Ketones Negative (Negative) 04/16/24 16:40 Urine Blood 2+ (Negative) H 04/16/24 16:40 Urine Nitrate Negative (Negative) 04/16/24 16:40 Urine Bilirubin 1+ (Negative) H 04/16/24 16:40 Urine Urobilinogen Norm mg/dL (Negative) 04/16/24 16:40 Ur Leukocyte Esterase 2+ (Negative) H 04/16/24 16:40 Urine RBC 5-10 /hpf (0-2) H 04/16/24 16:40 Urine WBC Too numerous to cnt /hpf (0-5) H 04/16/24 16:40 Ur Squamous Epith Cells 5-10 /hpf (0-5) H 04/16/24 16:40 Amorphous Sediment Not Reportable 04/16/24 16:40 Urine Bacteria 1+ /hpf (NONE) H 04/16/24 16:40 Fluid Color Colorless 04/17/24 11:12 Fluid Appearance Clear 04/17/24 11:12 Fluid WBC 27 /uL 04/17/24 11:12 Fluid RBC 2.000 10^3/uL 04/17/24 11:12 Fld Polynuclear WBCs # 0.012 04/17/24 11:12 Fld Polynuclear WBCs % 44.500 % 04/17/24 11:12 Fl Mononucl WBCs #(Auto) 0.015 04/17/24 11:12 Fl Mononuclear % Auto 55.500 % 04/17/24 11:12 Fld Crystal Laterality Right and left 04/17/24 11:12 Vitals Last Vital Signs Temp 98.2 F 04/18/24 08:00 Pulse 96 04/18/24 08:00 Resp 17 04/18/24 08:00 BP 143/64 04/18/24 08:00 Pulse Ox 93 04/18/24 08:00 O2 Del Method Room Air 04/18/24 04:00 Discharge Plan Discharge Patient Disposition: Home Condition: Stable Prescriptions: New cefpodoxime 200 mg tablet 200 mg PO BID Qty: 20 0RF Rx Instructions: must administer with a meal/food Continued Lantus Solostar U-100 Insulin 100 unit/mL (3 mL) insulin pen 28 unit SUBCUT QAM (DME) Contour Next Test Strips Strip See Rx Instructions .ROUTE .COMPLEX Qty: 300 6RF Dose Instruction: USE 1 STRIP TO CHECK GLUCOSE THREE TIMES DAILY Rx Instructions: USE 1 STRIP TO CHECK GLUCOSE THREE TIMES DAILY (DME) blood-glucose meter [OneTouch Ultra2 Meter] Misc See Rx Instructions .Route Qty: 1 0RF Rx Instructions: As directed (DME) lancets [OneTouch Delica Plus Lancet] 33 gauge misc See Rx Instructions .Route Qty: 100 12RF Rx Instructions: As directed (DME) pen needle, diabetic [BD Ultra-Fine Short Pen Needle] 31 gauge x 5/16 needle See Rx Instructions .ROUTE .COMPLEX Qty: 100 6RF Dose Instruction: USE TO INJECT INSULIN 2-3 TIMES A DAY Rx Instructions: USE TO INJECT INSULIN 2-3 TIMES A DAY (DME) OneTouch Ultra Test Strip See Rx Instructions .ROUTE .COMPLEX Qty: 200 3RF Dose Instruction: USE TO CHECK GLUCOSE THREE TIMES DAILY Rx Instructions: USE TO CHECK GLUCOSE THREE TIMES DAILY Eliquis 5 mg tablet 2.5 mg PO BID Qty: 90 3RF Rx Instructions: 340 B nitrofurantoin monohyd/m-cryst [Macrobid] 100 mg capsule 100 mg PO BID Qty: 60 3RF Rx Instructions: must administer with a meal/food amlodipine 5 mg tablet 5 mg PO DAILY coenzyme Q10 [CoQ-10] 100 mg Capsule 100 mg PO BEDTIME RenaPlex-D 800 mcg-12.5 mg -2,000 unit tablet 1 tab PO DAILY furosemide 40 mg tablet 80 mg PO BID atorvastatin 40 mg tablet 40 mg PO QPM levothyroxine 75 mcg tablet 75 mcg PO QAM Rx Instructions: 30 MINUTES BEFORE BREAKFAST WITH WATER ONLY amiodarone 100 mg tablet 100 mg PO DAILY potassium chloride 20 mEq tablet extended release 10 meq PO BEDTIME polyethylene glycol 3350 [Miralax] 17 gram/dose Powder 17 g PO PRN PRN (Reason: Constipation) doxazosin 2 mg tablet 2 mg PO BEDTIME Rx Instructions: PER RENAL hydrocodone-acetaminophen 5-325 mg tablet 1 tab PO Q6H PRN (Reason: pain) Qty: 20 0RF Discharge Orders: Discharge Order (Routine); Ordered 04/18/24 Ordered By: Leigh Ann Pena Referrals: Mann Garduno MD [Primary Care Provider] - 7-10 days Patient Instructions: Opioid Safety Discharge Attestations Time Spent in Discharge Care*: less than 30 min Status at Discharge: Cognitive status at discharge: cognitively intact, Behavioral status at discharge: cooperative, Quality Metrics Clinical Quality Measures [ No reported AMI, CVA or VTE this stay] Coding Level of Care Code Acute Code for g Fwd Diagnoses UTI (urinary tract infection) N39.0 Leukocytosis D72.829 Decubitus ulcer, buttock L89.309 Heel ulcer L97.409
[2024-04-18 10:58] LABS: Glucose Point of Care 245 mg/dL (70-110)
[2024-04-18 12:33] VITALS: BP 143/64; PULSE 96; RESP 17; TEMP 36.8; O2SAT 93
== END 2024-04-18 11:20 | disposition home health service (06) | DRG 689 ==
LOC: ER 18:25 → MEDSURG 18:51
PROVIDERS: Admitting Provider Student in an Organized Health Care Education/Training Program; Emergency Provider Family Medicine; PCP Family Medicine; Visit Provider Internal Medicine
DX: N39.0 Urinary tract infection, site not specified (principal); N18.6 End stage renal disease; I13.2 Hypertensive heart and chronic kidney disease with heart failure and with stage 5 chronic kidney disease, or end stage renal disease; I48.20 Chronic atrial fibrillation, unspecified; B96.20 Unspecified Escherichia coli [E. coli] as the cause of diseases classified elsewhere; Z79.01 Long term (current) use of anticoagulants; Z79.4 Long term (current) use of insulin; E87.6 Hypokalemia; D63.1 Anemia in chronic kidney disease; Z99.2 Dependence on renal dialysis; E11.22 Type 2 diabetes mellitus with diabetic chronic kidney disease; I50.9 Heart failure, unspecified; Z87.891 Personal history of nicotine dependence; E03.9 Hypothyroidism, unspecified; K21.9 Gastro-esophageal reflux disease without esophagitis; L89.159 Pressure ulcer of sacral region, unspecified stage
CPT/HCPCS: 36415; 36416; 80053; 80503; 81001; 82962; 83605; 85025; 87040; 87070; 87075; 87077; 87086; 87186; 87205; 89050; 96365; 96367; 96372; 99285; J0692; J1644; J1815; J2185; J7030; Q3014

== ENCOUNTER → 2024-04-21 10:31 | Outpatient (BNVA) | payer MEDICARE, SELFPAY | PROVIDERS: PCP Family Medicine; Visit Provider Thoracic Surgery (Cardiothoracic Vascular Surgery) | DX: I96 Gangrene, not elsewhere classified (principal); L89.613 Pressure ulcer of right heel, stage 3 | CPT/HCPCS: A6212 ==

== ENCOUNTER → 2024-04-28 10:41 | Outpatient (BNVA) | payer MEDICARE, SELFPAY | PROVIDERS: PCP Family Medicine; Visit Provider Thoracic Surgery (Cardiothoracic Vascular Surgery) | DX: I96 Gangrene, not elsewhere classified (principal); L89.613 Pressure ulcer of right heel, stage 3 | CPT/HCPCS: 97597 ==

== ENCOUNTER → 2024-05-05 09:46 | Outpatient (BNVA) | payer MEDICARE, SELFPAY | PROVIDERS: PCP Family Medicine; Visit Provider Thoracic Surgery (Cardiothoracic Vascular Surgery) | DX: I96 Gangrene, not elsewhere classified (principal); L89.613 Pressure ulcer of right heel, stage 3 | CPT/HCPCS: 97597; A6212; A6248 ==

== ENCOUNTER → 2024-05-12 08:27 | Outpatient (BNVA) | payer MEDICARE, SELFPAY | PROVIDERS: PCP Family Medicine; Visit Provider Thoracic Surgery (Cardiothoracic Vascular Surgery) | DX: I96 Gangrene, not elsewhere classified (principal); L89.613 Pressure ulcer of right heel, stage 3 | CPT/HCPCS: 11042 ==

== ENCOUNTER → 2024-05-19 08:33 | Outpatient (BNVA) | payer MEDICARE, SELFPAY | PROVIDERS: PCP Family Medicine; Visit Provider Thoracic Surgery (Cardiothoracic Vascular Surgery) | DX: I96 Gangrene, not elsewhere classified (principal); L89.613 Pressure ulcer of right heel, stage 3 | CPT/HCPCS: 97597 ==

== ENCOUNTER → 2024-05-25 07:57 | Outpatient (BNVA) | payer MEDICARE, SELFPAY | PROVIDERS: PCP Family Medicine; Visit Provider Thoracic Surgery (Cardiothoracic Vascular Surgery) | DX: I96 Gangrene, not elsewhere classified (principal); L89.613 Pressure ulcer of right heel, stage 3 | CPT/HCPCS: 97597 ==

== ENCOUNTER → 2024-06-01 07:52 | Outpatient (BNVA) | payer MEDICARE, SELFPAY | PROVIDERS: PCP Family Medicine; Visit Provider Thoracic Surgery (Cardiothoracic Vascular Surgery) | DX: I96 Gangrene, not elsewhere classified (principal); L89.613 Pressure ulcer of right heel, stage 3 | CPT/HCPCS: 97597 ==

== ENCOUNTER → 2024-06-08 08:00 | Outpatient (BNVA) | payer MEDICARE, SELFPAY | PROVIDERS: PCP Family Medicine; Visit Provider Thoracic Surgery (Cardiothoracic Vascular Surgery) | DX: I96 Gangrene, not elsewhere classified (principal); L89.613 Pressure ulcer of right heel, stage 3 | CPT/HCPCS: 97597 ==

== ENCOUNTER → 2024-06-15 08:37 | Outpatient (BNVA) | payer MEDICARE, SELFPAY | PROVIDERS: PCP Family Medicine; Visit Provider Thoracic Surgery (Cardiothoracic Vascular Surgery) | DX: I96 Gangrene, not elsewhere classified (principal); L89.613 Pressure ulcer of right heel, stage 3 | CPT/HCPCS: 11042 ==

== ENCOUNTER → 2024-06-20 15:16 | Outpatient (BNVA) | payer MEDICARE, SELFPAY | PROVIDERS: PCP Family Medicine; Visit Provider Thoracic Surgery (Cardiothoracic Vascular Surgery) | DX: I96 Gangrene, not elsewhere classified (principal); L89.613 Pressure ulcer of right heel, stage 3 | CPT/HCPCS: 97597; 97605; A6237; A6250 ==

== ENCOUNTER → 2024-06-23 12:57 | Outpatient (BNVA) | payer MEDICARE, SELFPAY | PROVIDERS: PCP Family Medicine; Visit Provider Thoracic Surgery (Cardiothoracic Vascular Surgery) | DX: I96 Gangrene, not elsewhere classified (principal); L89.613 Pressure ulcer of right heel, stage 3; L89.312 Pressure ulcer of right buttock, stage 2 | CPT/HCPCS: 97605; A6237; A6260 ==

== ENCOUNTER → 2024-06-27 13:44 | Outpatient (BNVA) | payer MEDICARE, SELFPAY | PROVIDERS: PCP Family Medicine; Visit Provider Thoracic Surgery (Cardiothoracic Vascular Surgery) | DX: I96 Gangrene, not elsewhere classified (principal); L89.312 Pressure ulcer of right buttock, stage 2; L89.613 Pressure ulcer of right heel, stage 3 | CPT/HCPCS: 97597; A6212; A6237; A6250 ==

== ENCOUNTER 2024-06-30 09:41 | Outpatient (CLI) | payer MEDICARE, SELFPAY ==
--- NOTE | 2024-06-30 10:00 | USCV_ITS ---
Kenneth Luiza Age: 84 Gender: F : 1940 Exam Date: 06/30/2024 09:55 Ordering Phys: Pramod Cueto MD Technologist: FARHANA Exam Location: [facility] [place] Indication: LE Pain. Non healing ulcer. Risk Factors: Previous Vascular Surgery: RIGHT LEFT BP: 127.0 / 58.00 BP: 131.0/ 58.00 0 0 Waveform Velocity (cm/s) Velocity (cm/s) Waveform Triphasic 71.0 Iliac Prox Triphasic 85.0 Iliac Mid Triphasic 108.3 Iliac Distal Monophasic 169.0 CLINICAL RN MANAGER Monophasic 169.0 SFA Prox Monophasic 61.0 SFA Mid Monophasic 35.0 SFA Dist Monophasic 44.0 POP Monophasic 55.0 JEWELRY MAKER Monophasic 32.0 DPA FINDINGS Both JEWELRY MAKER and DPA are noncompressible so ABIs cannot be calculated Triphasic Doppler waveform in the iliac artery. Monophasic waveforms in the common femoral and superficial femoral artery. Monophasic and continuous waveforms in the popliteal and infrapopliteal vessels. CONCLUSIONS 1. Noncompressible ankle vessels, on the right side 2. Abnormal Doppler waveforms, may suggest high-grade lesions in the femoral artery with collateral filling of the popliteal and infrapopliteal vessels [address] angiogram or peripheral angiogram to further evaluate the arterial disease Dr Liliane Almendarez MD [facility] (Electronically Signed) Final Date: 01 July 2024 00:12 S
== END 2024-06-30 09:42 | disposition home or self-care (01) ==
LOC: RAD 09:42
PROVIDERS: PCP Family Medicine; Visit Provider Thoracic Surgery (Cardiothoracic Vascular Surgery)
DX: M79.604 Pain in right leg (principal); L97.512 Non-pressure chronic ulcer of other part of right foot with fat layer exposed
CPT/HCPCS: 93926

== ENCOUNTER → 2024-07-04 10:44 | Outpatient (BNVA) | payer MEDICARE, SELFPAY | PROVIDERS: PCP Family Medicine; Visit Provider Thoracic Surgery (Cardiothoracic Vascular Surgery) | DX: I96 Gangrene, not elsewhere classified (principal); L89.613 Pressure ulcer of right heel, stage 3; L89.312 Pressure ulcer of right buttock, stage 2 | CPT/HCPCS: 97597; A6237; A6250 ==

== ENCOUNTER 2024-07-08 10:52 | Outpatient (CLI) | payer MEDICARE, SELFPAY ==
--- NOTE | 2024-07-08 11:00 | CTR_ITS ---
PROCEDURE INFORMATION: Exam: CTA Abdominal Aorta and Bilateral Lower Extremities (Run-off) With Contrast Exam date and time: 07/08/2024 11:10 AM Age: 84 years old Clinical indication: Non healing foot ulcer; Hyst, ankle; RT heel wound with wound vac. High grade lesion via venous doppler, esrd peritoneal dialysis via machine TECHNIQUE: Imaging protocol: Computed tomographic angiography of the of the abdominal aorta, pelvis and bilateral lower extremities with contrast. 3D rendering (Not supervised by radiologist): MIP and/or 3D reconstructed images were created by the technologist. Radiation optimization: All CT scans at this facility use at least one of these dose optimization techniques: automated exposure control; mA and/or kV adjustment per patient size (includes targeted exams where dose is matched to clinical indication); or iterative reconstruction. Contrast material: OMNI 350; Contrast volume: 125 ml; Contrast route: INTRAVENOUS (IV); COMPARISON: CT abdomen pelvis wo con [id number] 03/15/2024 12:20 PM RADIATION DOSE METRICS: Total DLP (mGy-cm): 1616.26 FINDINGS: Tubes, catheters and devices: Drainage tube enters the right lower quadrant ventral abdomen terminating in the right pelvis. Aorta: No aortic aneurysm. No aortic dissection. Celiac trunk and mesenteric arteries: There is atherosclerotic plaque at the celiac trunk origin with focal severe stenosis. Atherosclerotic plaque at the superior mesenteric artery origin results in mild narrowing. Renal arteries: There is a main and accessory right renal artery. Calcified plaque in the proximal 8 mm of the right main renal artery results in stenosis. There is reconstitution of flow distally by collaterals. The accessory right renal artery is positioned anterior to the main right renal artery and is patent. Single main left renal artery bifurcates 3 mm distal to the origin. There is calcified plaque at the origin with severe stenosis to occlusion. Reconstitution of flow is seen distal to the origin. Right iliac arteries: There is atherosclerotic plaque in the right common iliac artery 2.6 cm distal to the bifurcation with severe stenosis. Atherosclerotic plaque throughout the right external iliac artery results in regions of mild stenosis. Right femoral/popliteal arteries: There is scattered atherosclerotic plaque with multiple regions of severe stenosis and occlusion in the right femoral and popliteal arteries. Right infrapopliteal arteries: Limited evaluation of the runoff vessels to the foot secondary to calcified atheromatous disease. Left iliac arteries: Atherosclerotic plaque in the left common iliac artery results in regions of mild to moderate stenosis. There is atherosclerotic plaque in the left external iliac artery with mild stenosis. Left femoral/popliteal arteries: There is atherosclerotic plaque in the femoral and popliteal arteries with multiple regions of moderate to severe stenosis. Left infrapopliteal arteries: Limited evaluation of the runoff vessels to the foot secondary to calcified atheromatous disease. Heart: Cardiomegaly. Esophagus: There is mucosal thickening of the distal esophagus. Small hiatal hernia. Liver: No mass. Gallbladder and biliary ducts: Unremarkable. No calcified stones. No ductal dilation. Pancreas: Unremarkable. No mass. No ductal dilation. Spleen: Normal. No splenomegaly. Adrenal glands: Normal. No mass. Kidneys and ureters: There are subcentimeter bilateral renal cysts with benign features. Follow-up is not necessary. Stomach and bowel: Unremarkable. No obstruction. No mucosal thickening. Appendix: No evidence of appendicitis. Urinary bladder: Unremarkable. No mass. Reproductive: Unremarkable as visualized. Intraperitoneal space: There is a small amount of free fluid in the pelvis. Lymph nodes: No lymphadenopathy. Bones/joints: Old fractures through the right superior and inferior pubic rami were seen on the prior study as well. There is incomplete union across the right inferior pubic ramus fracture. Degenerative changes are present in the visualized spine. Grade 1 degenerative anterolisthesis of L4 on L5 with severe bilateral neural foraminal narrowing and possible compression of the exiting L4 nerve roots. Severe degenerative changes are present across the L4-L5 level. Degenerative changes are present across the hip joints. Soft tissues: Tiny fat containing umbilical hernia. There is edema in the soft tissues. CT/CT angio abd aorta runof [id number] IMPRESSION: 1. Cardiomegaly. 2. Old fractures through the right superior and inferior pubic rami were seen on the prior study as well. There is incomplete union across the right inferior pubic ramus fracture. 3. Grade 1 degenerative anterolisthesis of L4 on L5 with severe bilateral neural foraminal narrowing and possible compression of the exiting L4 nerve roots. 4. There is mucosal thickening of the distal esophagus consistent with esophagitis. 5. Multivessel atherosclerotic disease with multiple regions of severe stenosis and occlusion in multiple vessels as described in detail above.
[2024-07-08] MEDS: iohexol 350 mg/mL 500 mL Btl (per mL) IV (12:53)
== END 2024-07-08 10:53 | disposition home or self-care (01) ==
LOC: RAD 10:52
PROVIDERS: PCP Family Medicine; Visit Provider Thoracic Surgery (Cardiothoracic Vascular Surgery)
DX: I70.1 Atherosclerosis of renal artery (principal); I70.8 Atherosclerosis of other arteries; I70.201 Unspecified atherosclerosis of native arteries of extremities, right leg; I77.4 Celiac artery compression syndrome; I51.7 Cardiomegaly; N17.9 Acute kidney failure, unspecified; R60.9 Edema, unspecified; N18.6 End stage renal disease; Z99.2 Dependence on renal dialysis; M43.16 Spondylolisthesis, lumbar region; M99.63 Osseous and subluxation stenosis of intervertebral foramina of lumbar region; K44.9 Diaphragmatic hernia without obstruction or gangrene; Z90.710 Acquired absence of both cervix and uterus
CPT/HCPCS: 75635; 97597; A6237; A6250

== ENCOUNTER → 2024-07-11 10:48 | Outpatient (BNVA) | payer MEDICARE, SELFPAY | PROVIDERS: PCP Family Medicine; Visit Provider Thoracic Surgery (Cardiothoracic Vascular Surgery) | DX: I96 Gangrene, not elsewhere classified (principal); L89.613 Pressure ulcer of right heel, stage 3; L98.411 Non-pressure chronic ulcer of buttock limited to breakdown of skin; Z09 Encounter for follow-up examination after completed treatment for conditions other than malignant neoplasm | CPT/HCPCS: 97597 ==

== ENCOUNTER → 2024-07-18 10:38 | Outpatient (BNVA) | payer MEDICARE, SELFPAY | PROVIDERS: PCP Family Medicine; Visit Provider Thoracic Surgery (Cardiothoracic Vascular Surgery) | DX: I96 Gangrene, not elsewhere classified (principal); L89.613 Pressure ulcer of right heel, stage 3 | CPT/HCPCS: A6212 ==

== ENCOUNTER → 2024-07-20 13:52 | Outpatient (BNVA) | payer MEDICARE, SELFPAY | PROVIDERS: PCP Family Medicine; Visit Provider Internal Medicine Cardiovascular Disease | DX: I70.223 Atherosclerosis of native arteries of extremities with rest pain, bilateral legs (principal); R60.9 Edema, unspecified; R51.9 Headache, unspecified; N17.9 Acute kidney failure, unspecified; E87.1 Hypo-osmolality and hyponatremia; I70.229 Atherosclerosis of native arteries of extremities with rest pain, unspecified extremity; I13.0 Hypertensive heart and chronic kidney disease with heart failure and stage 1 through stage 4 chronic kidney disease, or unspecified chronic kidney disease; I50.32 Chronic diastolic (congestive) heart failure; E78.1 Pure hyperglyceridemia | CPT/HCPCS: 99214 ==

== ENCOUNTER → 2024-07-22 09:07 | Outpatient (BNVA) | payer MEDICARE, SELFPAY | PROVIDERS: PCP Family Medicine; Visit Provider Family Medicine | DX: R30.0 Dysuria (principal); N39.0 Urinary tract infection, site not specified | CPT/HCPCS: 87077; 87086; 87184 ==

== ENCOUNTER 2024-07-25 12:02 | Outpatient (CLI) | payer MEDICARE, SELFPAY ==
[2024-07-25 12:30] LABS: Basophils # 0.1 10^3/uL (0.0-0.1); Basophils % 0.5 %; Eosinophils # 0.3 10^3/uL (0.0-0.8); Eosinophils % 1.7 %; Hematocrit 31.5 % (36-47); Lymphocytes # 2.1 10^3/uL (0.8-4.8); Lymphocytes % 11.3 %; Mean Corpuscular HGB Conc 32.1 g/dL (30-55); Mean Corpuscular Hemoglobin 31.6 pg (27-33); Mean Corpuscular Volume 98.4 fl (85-98); Mean Platelet Volume 9.1 fL (7.4-10.4); Monocytes # 0.9 10^3/uL (0.2-0.9); Monocytes % 4.8 %; Neutrophils # 14.43 10^3/uL (1.8-7.7); Neutrophils % 79.2 %; Nucleated Red Blood Cells % 0 %; Platelet Count 435 10^3/cmm (157-399); Red Cell Distribution Width 14.4 % (12.1-15.1); White Blood Count 18.21 10^3/uL (3.29-11.43)
[2024-07-25 12:47] LABS: INR 1.13 (0.8-1.2)
[2024-07-25 12:53] LABS: Anion Gap 23.6 (5-19); Blood Urea Nitrogen 60 mg/dL (8-23); Calcium 8.2 mg/dL (8.5-10.5); Carbon Dioxide 21 mmol/L (22-29); Chloride 90 mmol/L (98-107); Glucose 102 mg/dL (65-115); Osmolality Calculated 285 mOsm/kg (285-295); Potassium 5.6 mmol/L (3.5-5.1); Sodium 129 mmol/L (136-145)
== END 2024-07-25 12:03 | disposition home or self-care (01) ==
PROVIDERS: PCP Family Medicine; Visit Provider Internal Medicine Cardiovascular Disease
DX: I50.33 Acute on chronic diastolic (congestive) heart failure (principal); E87.1 Hypo-osmolality and hyponatremia; N17.9 Acute kidney failure, unspecified; R60.9 Edema, unspecified; R51.9 Headache, unspecified
CPT/HCPCS: 36415; 80048; 85025; 85610

== ENCOUNTER 2024-07-26 17:40 | Inpatient (IN) | payer MEDICARE, SELFPAY ==
[2024-07-26] VITALS (71 sets, daily range): BP systolic 115–118; BP diastolic 51–63; PULSE 59–80; RESP 11–28; O2SAT 62–97; BMI 32.8
[2024-07-26 17:58] LABS: Glucose Point of Care 202 mg/dL (70-110)
--- NOTE | 2024-07-26 20:17 | PC.NURSE ---
pt arrived as a direct admit in room [address] notified for admitting orders. noted wound dressing on right foot, Peritoneal dialysis port on right lower abdomen,sacral pressure injury stage1. pt alert, orientated, chronic pain on buttocks. per at bedside, he did PD on pt 2 hrs before they came to hospital and give her pain medication as well.started IV on left forearm #20 gauge successfully once.call light provided.
--- NOTE | 2024-07-26 23:13 | P.HP_ITS ---
Providers/Chief Complaint Admitting Physician: Leigh Ann Lock MD Primary Care Provider: Mann Garduno MD Chief Complaint: I70.223 History of Present Illness 84-year-old female with history of chronic kidney disease on peritoneal dialysis, hypertension, and atrial fibrillation, admitted for peripheral angiogram/percutaneous angioplasty for critical limb ischemia secondary to peripheral arterial disease. She has a nonhealing ulcer on the right heel, consistent with poor vascular supply to the affected limb. CTA findings corroborate with severe vascular lesions requiring intervention. Atrial fibrillation is currently well-managed, with sinus rhythm noted on examination. Patient creatinine was noted to be 6.8 she is on peritoneal dialysis, her white cell count was high and noted to have urinary tract infection. It is the reason we canceled the procedure and admitted the patient for antibiotics and correction of electrolytes before proceeding with peripheral angiogram/percutaneous angioplasty most likely in couple of days depends how patient respond to the treatment. Medications/Allergies Home Medications Medication Instructions Recorded Confirmed Last Taken Type blood sugar diagnostic (Contour #300 ea 10/08/22 07/25/24 Unknown Rx Next Test Strips) blood-glucose meter (OneTouch #1 ea 10/13/22 07/25/24 Unknown Rx Ultra2 Meter) lancets 33 gauge (OneTouch Delica #100 ea 10/13/22 07/25/24 Unknown Rx Plus Lancet) pen needle, diabetic 31 gauge x #100 ea 10/27/23 07/25/24 Unknown Rx 5/16 (BD Ultra-Fine Short Pen Needle) atorvastatin 40 mg tablet 40 mg PO QPM 11/27/23 07/25/24 04/15/24 History coenzyme Q10 100 mg capsule 100 mg PO BEDTIME 11/27/23 07/25/24 04/15/24 History (CoQ-10) furosemide 40 mg tablet 80 mg PO BID 11/27/23 07/25/24 04/16/24 History levothyroxine 75 mcg tablet 75 mcg PO QAM 11/27/23 07/25/24 04/16/24 History potassium chloride 20 mEq 10 meq PO BEDTIME 11/27/23 07/25/24 04/15/24 History tablet,extended release vit B,C-folic ac 800 mcg-zinc 12.5 1 tab PO DAILY 11/27/23 07/25/24 04/16/24 Hi story mg-selen-D3 2,000 unit-vit E tablet (RenaPlex-D) doxazosin 2 mg tablet 2 mg PO BEDTIME 01/27/24 07/25/24 04/15/24 History polyethylene glycol 3350 17 17 g PO PRN PRN Constipation 01/27/24 07/25/24 04/15/24 History gram/dose oral powder (Miralax) amiodarone 100 mg tablet 100 mg PO DAILY #30 tabs 05/09/24 07/25/24 Unknown Rx mirtazapine 15 mg tablet 15 mg PO DAILY insomnia #30 tabs 05/16/24 07/25/24 Unknown Rx apixaban 5 mg tablet (Eliquis) See Rx Instructions .Route 05/26/24 07/26/24 07/23/24 Rx .COMPLEX #90 tabs amlodipine 2.5 mg tablet 2.5 mg PO DAILY #90 tabs 05/30/24 07/25/24 Unknown Rx spironolactone 25 mg tablet 12.5 mg (1/2 x 25 mg) PO DAILY #30 05/30/24 07/25/24 Unknown Rx tabs blood sugar diagnostic (OneTouch #200 ea 06/27/24 07/25/24 Unknown Rx Ultra Test strips) insulin glargine 100 unit/mL (3 35 unit SUBCUT QAM 07/20/24 07/25/24 Unknown History mL) subcutaneous pen (Lantus Solostar U-100 Insulin) hydrocodone 5 mg-acetaminophen 325 1 tab PO Q8H PRN pain 30 days #45 07/21/24 07/25/24 Unknown Rx mg tablet tabs sulfamethoxazole 800 1 tab PO BID #14 tabs 07/21/24 07/25/24 Unknown Rx mg-trimethoprim 160 mg tablet (Bactrim DS) Allergies Allergy/AdvReac Type Severity Reaction Status Date / Time Penicillins Allergy Unknown Rash,Unknow Verified 07/25/24 12:36 n PFSH Acute PFSH: Medical History (Updated 07/26/24 @ 23:11 by Leigh Ann Lock MD) Essential hypertension ESRD (end stage renal disease) on dialysis Sepsis Cystitis Decubitus ulcer, buttock Heel ulcer UTI (urinary tract infection) Leukocytosis Pubic ramus fracture Closed fracture of single pubic ramus of pelvis Pelvic fracture Acute respiratory failure with hypoxia Hypoxemia Atrial fibrillation PVC (premature ventricular contraction) Hypoglycemia associated with type 2 diabetes mellitus Pneumonia due to COVID-19 virus ESRD on peritoneal dialysis Atrial fibrillation Acute kidney injury superimposed on CKD Pneumonia Osteoarthritis (arthritis due to wear and tear of joints) Altered mental status Meningioma Anemia COVID-19 resolved Hypothyroidism GERD (gastroesophageal reflux disease) HTN (hypertension) CHF (congestive heart failure) CKD (chronic kidney disease) Diabetes Surgical History Peritoneal dialysis catheter in situ (06/26/21) History of ankle surgery S/P tonsillectomy Status post tubal ligation S/P cataract extraction S/P cervical spinal fusion Family History Mother Hypertension Grandmother Hypertension MATERNAL Other Cancer Diabetes Social History Smoking and tobacco/nicotine status: never used tobacco/nicotine Quit status (tobacco/nicotine): has quit using Year quit tobacco: 1977 [id number] Second hand smoke exposure: Yes Alcohol intake: never Substance/Drug Use: never Caregiver/support person: Yes Lives independently: Yes Household members: spouse and children Housing: House Marital status: Current occupational status: retired Pets and animals: Yes Do you think of yourself as: Straight/Heterosexual Current gender identity: Female Vitals/I&O/Wt Last Vital Signs Pulse 72 07/26/24 22:20 Resp 18 07/26/24 22:20 BP 118/51 07/26/24 22:20 Pulse Ox 89 L 07/26/24 22:20 O2 Del Method Room Air 07/26/24 18:12 Weight last 48 hrs Weight 179 lb 9 oz Physical Exam Const: OTHER: GENERAL: Patient is alert, awake and oriented x3. HEART: Regular S1 and S2. No murmur, rub or gallop. LUNGS: Clear to auscultate bilaterally. CENTRAL NERVOUS SYSTEM: Grossly nonfocal. EXTREMITIES: Lower extremities with out edema bilaterally. Right foot wrapped with nonhealing ulcer. No anterior posterior tibial pulse on the right side A&P Assessment and plan (1) Critical lower limb ischemia: Patient is admitted for peripheral angiogram/TECHNICAL APPLICATIONS SPECIALIST to assess and treat the vascular lesions further. Discussed surgical options, including approach via the left common femoral artery, with alternatives in case of disease, such as a radial approach. The patient was informed of the benefits and alternatives of the procedure, and consent was obtained to proceed, however given patient electrolyte derangement and high white cell count we will ask for nephrology and medicine consult to optimize patient preop condition before proceeding with the procedure over the next couple of days (2) ESRD (end stage renal disease) on dialysis: Patient is on peritoneal dialysis at home we will ask for nephrology consult in the morning (3) Recurrent UTI: Medicine will be consulted to manage antibiotics, white cell count could be high due to peritoneal dialysis however it is changed from the previous norm, according to patient he makes urine we will ask for UA (4) CHF (congestive heart failure): Well compensated continue current Qualifiers: Heart failure type: diastolic Heart failure chronicity: chronic Qualified Code(s): I50.32 - Chronic diastolic (congestive) heart failure Attestations Medical Necessity Statement*: I am expecting her stay to cross more than 2 midnights Coding Level of Care Code Acute Code for [facility] Diagnoses Critical lower limb ischemia I70.229 ESRD (end stage renal disease) on dialysis N18.6; Z99.2 Recurrent UTI N39.0 Chronic diastolic congestive heart failure I50.32 Heart failure type: diastolic Heart failure chronicity: chronic
[2024-07-27] VITALS (81 sets, daily range): BP systolic 109–136; BP diastolic 45–75; PULSE 60–101; RESP 7–27; TEMP 36.6; O2SAT 79–97; BMI 32.8
[2024-07-27] MEDS: levothyroxine 75 mcg Tablet PO (05:13)
[2024-07-27 07:44] LABS: Glucose Point of Care 114 mg/dL (70-110)
--- NOTE | 2024-07-27 08:22 | PM.CONSULT ---
Providers/Reason For Consult Consulting Physician/Specialty*: Uvaldo Draper MD/telemetry nephrology Reason for Consult*: ESRD care Requesting Physician: Dr. Arline Lock Attending Physician: Leigh Ann Lock MD Primary Care Provider: Mann Garduno MD History of Present Illness History of Present Illness Luiza Cooper is a 84 year old female admitted last evening. The patient has history of ESRD on peritoneal dialysis, hypertension, A-fib, peripheral vascular disease. The patient was admitted for peripheral angiogram/percutaneous angioplasty today for critical limb ischemia secondary to peripheral arterial disease with a nonhealing right heel ulcer. Her history also includes insulin-dependent diabetes, hyperlipidemia hypothyroidism, hypertension. Renal was called for providing PD care. Review of Systems Narrative: No nausea vomiting fevers chills itching or cramps. Patient just complains of right heel pain and ulcer. Medications/Allergies Home Medications Medication Instructions Recorded Confirmed Last Taken Type blood sugar diagnostic (Contour #300 ea 10/08/22 07/25/24 Unknown Rx Next Test Strips) blood-glucose meter (OneTouch #1 ea 10/13/22 07/25/24 Unknown Rx Ultra2 Meter) lancets 33 gauge (OneTouch Delica #100 ea 10/13/22 07/25/24 Unknown Rx Plus Lancet) pen needle, diabetic 31 gauge x #100 ea 10/27/23 07/25/24 Unknown Rx 5/16 (BD Ultra-Fine Short Pen Needle) atorvastatin 40 mg tablet 40 mg PO QPM 11/27/23 07/25/24 04/15/24 History coenzyme Q10 100 mg capsule 100 mg PO BEDTIME 11/27/23 07/25/24 04/15/24 History (CoQ-10) furosemide 40 mg tablet 80 mg PO BID 11/27/23 07/25/24 04/16/24 History levothyroxine 75 mcg tablet 75 mcg PO QAM 11/27/23 07/25/24 04/16/24 History potassium chloride 20 mEq 10 meq PO BEDTIME 11/27/23 07/25/24 04/15/24 History tablet,extended release vit B,C-folic ac 800 mcg-zinc 12.5 1 tab PO DAILY 11/27/23 07/25/24 04/16/24 History mg-selen-D3 2,000 unit-vit E tablet (RenaPlex-D) doxazosin 2 mg tablet 2 mg PO BEDTIME 01/27/24 07/25/24 04/15/24 History polyethylene glycol 3350 17 17 g PO PRN PRN Constipation 01/27/24 07/25/24 04/15/24 History gram/dose oral powder (Miralax) amiodarone 100 mg tablet 100 mg PO DAILY #30 tabs 05/09/24 07/25/24 Unknown Rx mirtazapine 15 mg tablet 15 mg PO DAILY insomnia #30 tabs 05/16/24 07/25/24 Unknown Rx apixaban 5 mg tablet (Eliquis) See Rx Instructions .Route 05/26/24 07/26/24 07/23/24 Rx .COMPLEX #90 tabs amlodipine 2.5 mg tablet 2.5 mg PO DAILY #90 tabs 05/30/24 07/25/24 Unknown Rx spironolactone 25 mg tablet 12.5 mg (1/2 x 25 mg) PO DAILY #30 05/30/24 07/25/24 Unknown Rx tabs blood sugar diagnostic (OneTouch #200 ea 06/27/24 07/25/24 Unknown Rx Ultra Test strips) insulin glargine 100 unit/mL (3 35 unit SUBCUT QAM 07/20/24 07/25/24 Unknown History mL) subcutaneous pen (Lantus Solostar U-100 Insulin) hydrocodone 5 mg-acetaminophen 325 1 tab PO Q8H PRN pain 30 days #45 07/21/24 07/25/24 Unknown Rx mg tablet tabs sulfamethoxazole 800 1 tab PO BID #14 tabs 07/21/24 07/25/24 Unknown Rx mg-trimethoprim 160 mg tablet (Bactrim DS) Allergies Allergy/AdvReac Type Severity Reaction Status Date / Time Penicillins Allergy Unknown Rash,Unknow Verified 07/25/24 12:36 n Current Medications Generic Name Dose Route Start Last Admin Trade Name Freq PRN Reason Stop Dose Admin Insulin Glargine 35 unit 07/27/24 06:00 07/27/24 06:41 Insulin Glargine 100 Units/1 Ml SUBCUT Not Given QAM NIKO Levothyroxine Sodium 75 mcg 07/27/24 06:00 07/27/24 05:13 Levothyroxine 75 Mcg Tablet PO 75 mcg QAM NIKO Administration PFSH Acute PFSH: Medical History (Updated 07/26/24 @ 23:11 by Leigh Ann Lock MD) Essential hypertension ESRD (end stage renal disease) on dialysis Sepsis Cystitis Decubitus ulcer, buttock Heel ulcer UTI (urinary tract infection) Leukocytosis Pubic ramus fracture Closed fracture of single pubic ramus of pelvis Pelvic fracture Acute respiratory failure with hypoxia Hypoxemia Atrial fibrillation PVC (premature ventricular contraction) Hypoglycemia associated with type 2 diabetes mellitus Pneumonia due to COVID-19 virus ESRD on peritoneal dialysis Atrial fibrillation Acute kidney injury superimposed on CKD Pneumonia Osteoarthritis (arthritis due to wear and tear of joints) Altered mental status Meningioma Anemia COVID-19 resolved Hypothyroidism GERD (gastroesophageal reflux disease) HTN (hypertension) CHF (congestive heart failure) CKD (chronic kidney disease) Diabetes Surgical History Peritoneal dialysis catheter in situ (06/26/21) History of ankle surgery S/P tonsillectomy Status post tubal ligation S/P cataract extraction S/P cervical spinal fusion Family History Mother Hypertension Grandmother Hypertension MATERNAL Other Cancer Diabetes Social History Smoking and tobacco/nicotine status: never used tobacco/nicotine Quit status (tobacco/nicotine): has quit using Year quit tobacco: 1978 [id number] Second hand smoke exposure: Yes Alcohol intake: never Substance/Drug Use: never Caregiver/support person: Yes Lives independently: Yes Household members: spouse and children Housing: House Marital status: Current occupational status: retired Pets and animals: Yes Do you think of yourself as: Straight/Heterosexual Current gender identity: Female Vitals/I&O/Wt Last Vital Signs Temp 97.9 F 07/27/24 07:00 Pulse 71 07/27/24 07:00 Resp 20 H 07/27/24 07:00 BP 130/75 07/27/24 07:00 Pulse Ox 96 07/27/24 07:00 O2 Del Method Room Air 07/27/24 07:00 Weight last 48 hrs Weight 81.448 kg Weight 81.448 kg Physical Exam Narrative: Comfortable in bed no apparent distress. Vital signs noted. HEENT normocephalic atraumatic. Neck is supple. Lungs are clear to auscultation. Heart is regular no rubs or gallops. Abdomen is soft positive bowel sounds nontender positive Tenckhoff catheter. Distended. Extremities no edema right foot is bandaged. Poor pulses. The patient was seen and examined using audiovisual equipment with the aid of a nurse. A&P Assessment and plan (1) ESRD (end stage renal disease) on dialysis: 84-year-old lady 1. Peripheral arterial disease. Angiogram today. 2. ESRD the patient is on peritoneal dialysis and she tells me she gets it. The [facility] clinic. Patient says she uses a cycler but then she tells me she has 1 exchange a day when trying to get further information. Reviewing her old chart it appears that she is only had 1 exchange daily in the past while in the hospital. Given that she has hyponatremia hyperkalemia metabolic acidosis and creatinine is now 6.8. I will try to increase to 4 exchanges a day using low glucose exchanges. I also asked the nurse to get further information from [facility]. 3. Hyponatremia check TSH check cortisol. Check urine electrolytes. 4. Hyperkalemia monitor with dialysis. 5. Leukocytosis. Can be from heel. Also question of UTI. Urinalysis 5-10 RBCs 2+ leukocytes too numerous to count white cells 2+ blood. Urine culture from July 22/2024 revealed Enterobacter cloacae resistant to ceftriaxone and cefuroxime. Can give ciprofloxacin or Zosyn. With cefepime. Please dose for peritoneal dialysis. 6. Hemoglobin acceptable given vascular disease we will hold on Epogen at this time. 7. Will check vitamin D PTH calcium and phosphorus. 8. History of paroxysmal A-fib currently in sinus rhythm on amiodarone. 9. Hypothyroidism on levothyroxine check TSH. 10. If okay with cardiology can hold Coreg. The patient was seen and examined using audiovisual equipment as a telehealth visit with the aid of a nurse. The patient consented to telehealth and to dialysis. Plan For angiogram. Peritoneal dialysis. Consult Attestations Medical Necessity Statement: ESRD right heel ulcer. Time Spent in Patient Care: Greater than 35 minutes (>than 50% of time spent in counselling and/or direct pt care on unit). Coding Level of Care Code Acute Code for g Fwd Diagnoses ESRD (end stage renal disease) on dialysis N18.6; Z99.2
--- NOTE | 2024-07-27 08:57 | PC.CHAP ---
Pastoral Care Encounter/Spiritual Assessment Type of Contact [] Declined testing projects administrator visit [] Patient/Family/Request visit [] Outpatient visit [] Follow-up visit [] Physician referral [] Code/Alert [x] Routine visit [] Staff referral [] Actively dying [] Patient sleeping [] Family support [] [] Out of room [] Palliative care [] [] Receiving care in room [] Pre-surgical visit [] Trauma [] Long length of stay [] ICU visit [] Other: Relational/Emotional Strength [x] Patient feels connected with others/family/visitors/staff [] Distress [] Loneliness/isolation [] Abandonment Spirituality of Patient [x] Person of Betty [] Attends Hinduism of their Betty [x] Believes in Prayer [] Reads Bible or Temple materials [] There are Spiritual issues to be addressed Director Of Instrumental Music Interventions [x] Prayer [x] Active listening [] Non-anxious presence [x] Spiritual/emotional support [] Crisis/trauma care [] Spiritual counseling [] Bereavement support [] Provided bereavement packet [] Provided Bible/devotional materials [] Provided toy/stuffed animal, coloring book to patient or family member [] Provided Communion [] Anointing/[place] [] Salvation [x] Completed spiritual assessment [] Other: Impact on Illness or Injury [] Angry [] Fearful [] Anxious [] Often cries [] Exhaustion [] Unable to work [] Unable to attend confucianism [] Unable to walk/stand [] Unable to read [] Unable to drive [] Unable to eat/drink [] Unable to sleep [] Unable to be with family [] Patient intubated [] Other: Summary Time spent with patient 5 min
[2024-07-27] MEDS: sulfamethoxazole-trimeth DS 160-800 mg Tablet 1 TAB PO (09:24)
[2024-07-27] MEDS: FUROsemide 40 mg Tablet 80 MG PO ×2 (09:24→17:51)
[2024-07-27] MEDS: amiodarone 200 mg Tablet 100 MG PO (09:24)
[2024-07-27] MEDS: mirtazapine 15 mg Tablet PO (09:24)
[2024-07-27 09:47] LABS: Thyroid Stimulating Hormone 30.26 uIU/mL (0.27-4.20); Uric Acid 7.6 mg/dL (2.4-5.7)
[2024-07-27 09:57] LABS: Basophils # 0.1 10^3/uL (0.0-0.1); Basophils % 0.4 %; Eosinophils # 0.2 10^3/uL (0.0-0.8); Eosinophils % 0.9 %; Hematocrit 30.3 % (36-47); Lymphocytes # 1.9 10^3/uL (0.8-4.8); Mean Corpuscular HGB Conc 31.4 g/dL (30-55); Mean Platelet Volume 9.1 fL (7.4-10.4); Monocytes # 0.8 10^3/uL (0.2-0.9); Monocytes % 4.5 %; Neutrophils # 13.56 10^3/uL (1.8-7.7); Neutrophils % 80.5 %; Nucleated Red Blood Cells % 0 %; Platelet Count 429 10^3/cmm (157-399); Red Blood Count 3.06 10^6/uL (3.85-5.65); Red Cell Distribution Width 14.5 % (12.1-15.1); White Blood Count 16.86 10^3/uL (3.29-11.43)
[2024-07-27 10:24] LABS: Blood Urea Nitrogen 66 mg/dL (8-23); Calcium 8.4 mg/dL (8.5-10.5); Carbon Dioxide 21 mmol/L (22-29); Chloride 90 mmol/L (98-107); Creatinine Clr Calc Pharmacy 4.8719; Glucose 95 mg/dL (65-115); NT Pro B Type Natriuretic Pept 1855 pg/mL (0-450); Osmolality Calculated 287 mOsm/kg (285-295); Sodium 129 mmol/L (136-145)
[2024-07-27 10:30] LABS: Anion Gap 23.6 (5-19); Potassium 5.6 mmol/L (3.5-5.1)
[2024-07-27] MEDS: morphine 4 mg/mL SDV 1 mL 2 MG IVP (12:02)
[2024-07-27] MEDS: Dianeal low Ca w/1.5% dex 2,000 mL Bag 2000 ML INTRAPERIT ×2 (12:05→17:57)
--- NOTE | 2024-07-27 12:05 | PC.NURSE ---
peritoneal dialysis started at 1100 and instiled at 1130. Dwell time is 5 hours so nurse will unclamp at 1630.
--- NOTE | 2024-07-27 12:17 | P.PN_ITS ---
Documented by User: Mary Arreola NP 07/27/24 15:17 Subjective 2 Subjective: This a very pleasant 84-year-old female with a chronic ulcer since January of the right heel. Patient has a history of end-stage renal disease on peritoneal dialysis normally daily. Today her creatinine has increased to 8.5. WBC is up to 16.86. She does have a recent UTI with culture positive for Enterobacter susceptible to Bactrim. Patient is having quite a bit of pain in her right heel. She has a strong foul odor to the wound. Morphine has been added for pain control per Dr. Lock. Her main complaint is pain in her right heel. No complaints from the left lower extremity. Patient has a history of right common femoral severe stenosis pretty much throughout the whole right leg through the infrapopliteal vessels on the right. No s/s of ischemia to bilateral lower extremities. Bilateral lower extremities with 2-second capillary refill and warm Vitals/I&O/Wt Last Vital Signs Temp 97.9 F 07/27/24 11:30 Pulse 73 07/27/24 11:30 Resp 17 07/27/24 12:02 BP 127/65 07/27/24 11:30 Pulse Ox 96 07/27/24 12:02 O2 Del Method Room Air 07/27/24 11:30 Weight last 48 hrs Weight 179 lb 9 oz Weight 179 lb 9 oz Physical Exam 2 Narrative: General: No apparent distress, healthy appearing, well nourished HENMT: normoceophalic Neck: No carotid bruit bilaterally Muskuloskeletal: Patient in bed at this time, unable to walk much due to chronic heal ulcer Lymphatic: no lymphedema noted Respiratory: Normal respiratory effort, clear to auscultation bilaterally throughout all lung riddle, no use of accessory muscles Cardio: No JVD, regular rate, regular rhythm, S1 S2 normal, no murmurs, left lower extremity with 1+ monophasic posterior tibial and 2+ monophasic dorsalis pedis, right lower extremity is completely wrapped. Patient states previously seen at wound care and had a wet-to-dry dressing done. Extremities: Right lower extremity with chronic ulcer on the heel currently patient's foot is wrapped with gauze Neuro: Alert and oriented x4, no focal motor deficits Psych: Affect normal, denies suicidal ideation, mental status grossly normal Skin: Chronic right heel ulcer, patient states has chronic ulcers on patient's buttocks Data 07/28/24 03:22 07/28/24 03:22 A&P Assessment and plan (1) Critical lower limb ischemia: Patient is admitted for peripheral angiogram/[employer] TE[employer]ER to assess and treat the vascular lesions further. Patient was going to go for intervention today but creatinine had increased. Plan is to take patient for peripheral intervention tomorrow. Will initiate aspirin 81 mg daily. (2) ESRD (end stage renal disease) on dialysis: Patient is on peritoneal dialysis at home. Appreciate nephrology's assistance. (3) Recurrent UTI: Medicine has been consulted to manage antibiotics with increased WBC count. Could be to wound/UTI. I did discuss this patient with Dr. Amaro, who will be seeing patient today. (4) CHF (congestive heart failure): Well compensated continue current Qualifiers: Heart failure chronicity: chronic Heart failure type: diastolic Qualified Code(s): I50.32 - Chronic diastolic (congestive) heart failure Plan Plan is to take patient for peripheral intervention tomorrow patient getting peritoneal dialysis today initiate aspirin 81 mg daily Attestations 2 Medical Necessity Statement*: I am expecting her stay to cross more than 2 midnights due to ANSON, severe PAD with limb threatening ischemia, UTI with infection Coding Level of Care Code Acute Code for [facility] Fwd Diagnoses Critical lower limb ischemia I70.229 ESRD (end stage renal disease) on dialysis N18.6; Z99.2 Recurrent UTI N39.0 Chronic diastolic congestive heart failure I50.32 Heart failure chronicity: chronic Heart failure type: diastolic Documented by User: Leigh Ann Lock MD 07/28/24 09:42 Subjective 2 Subjective: Patient was evaluated and cared for in conjunction with an advanced practice practitioner. I personally examined the patient and reviewed the chart and all pertinent data including imaging, telemetry, and laboratory results. I discussed the patient in detail with the advanced practice practitioner. Please see their note for complete H&P testing result and agreed upon plan of care for the patient. Patient had right foot pain given morphine GENERAL: Patient is alert, awake and oriented x3. HEART: Regular S1 and S2. No murmur, rub or gallop. LUNGS: Clear to auscultate bilaterally. CENTRAL NERVOUS SYSTEM: Grossly nonfocal. EXTREMITIES: Lower extremities with out edema bilaterally. 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 Patient has a history of end-stage renal disease on peritoneal dialysis normally daily. Today her creatinine has increased to 8.5. WBC is up to 16.86. She does have a recent UTI with culture positive for Enterobacter susceptible to Bactrim. Patient is having quite a bit of pain in her right heel. She has a strong foul odor to the wound. Morphine has been added for pain control per Dr. Lock. Her main complaint is pain in her right heel. No complaints from the left lower extremity. Patient has a history of right common femoral severe stenosis pretty much throughout the whole right leg through the infrapopliteal vessels on the right. No s/s of ischemia to bilateral lower extremities. Bilateral lower extremities with 2-second capillary refill and warm Data 07/28/24 03:22 07/28/24 03:22 A&P Assessment and plan (1) Critical lower limb ischemia: (2) ESRD (end stage renal disease) on dialysis: (3) Recurrent UTI: (4) CHF (congestive heart failure): Qualifiers: Heart failure chronicity: chronic Heart failure type: diastolic Qualified Code(s): I50.32 - Chronic diastolic (congestive) heart failure Coding Level of Care Code Acute Code for [facility] Diagnoses Critical lower limb ischemia I70.229 ESRD (end stage renal disease) on dialysis N18.6; Z99.2 Recurrent UTI N39.0 Chronic diastolic congestive heart failure I50.32 Heart failure chronicity: chronic Heart failure type: diastolic
[2024-07-27 12:34] LABS: Glucose Point of Care 97 mg/dL (70-110)
--- NOTE | 2024-07-27 15:05 | PC.NURSE ---
Patient stated that nursing staff has not been very good about bringing her pain medication, however hydrocodone and morphine were given when requested. Patient was reminded that she needs to ask for pain medication when she feels she needs it and when the order allows.
--- NOTE | 2024-07-27 15:22 | P.CONIM_ITS ---
Providers/Reason For Consult 2 Consulting Physician/Specialty*: cardiology Reason for Consult*: uti, dm2, right heel ulcer Attending Physician: Leigh Ann Lock MD Primary Care Provider: Mann Garduno MD History of Present Illness History of Present Illness Luiza Cooper is a 84 year old female with a past medical history of atrial fibrillation on Eliquis, history of peripheral vascular disease, history of peripheral ulcers, end-stage renal disease on peritoneal dialysis, hypertension, CHF, type 2 diabetes mellitus, insulin-dependent, patient tells me that on her right foot, she had a fall many years ago and she has had a trimalleolar ankle fracture on that side. She tells me that many months ago, she had a fall she suffered pubic rami fracture as a result she was sent to a correction, since then she has had these heel ulcers. She had 1 on the left lower extremity, which healed with wound care. But the one the right calcaneum has persisted, she has had increased pain, swelling, tenderness, drainage around the site. Denies any fevers, chills, no nausea, no vomiting. Denies a history of diabetic neuropathy. Review of Systems 2 Const: Denies: fever(s) Card: Denies: chest pain GI: Denies: abdominal pain : Denies: flank pain Medications/Allergies Home Medications Medication Instructions Recorded Confirmed Last Taken Type blood sugar diagnostic (Contour #300 ea 10/08/22 07/25/24 Unknown Rx Next Test Strips) blood-glucose meter (OneTouch #1 ea 10/13/22 07/25/24 Unknown Rx Ultra2 Meter) lancets 33 gauge (OneTouch Delica #100 ea 10/13/22 07/25/24 Unknown Rx Plus Lancet) pen needle, diabetic 31 gauge x #100 ea 10/27/23 07/25/24 Unknown Rx 5/16 (BD Ultra-Fine Short Pen Needle) atorvastatin 40 mg tablet 40 mg PO QPM 11/27/23 07/25/24 04/15/24 History coenzyme Q10 100 mg capsule 100 mg PO BEDTIME 11/27/23 07/25/24 04/15/24 History (CoQ-10) furosemide 40 mg tablet 80 mg PO BID 11/27/23 07/25/24 04/16/24 History levothyroxine 75 mcg tablet 75 mcg PO QAM 11/27/23 07/25/24 04/16/24 History potassium chloride 20 mEq 10 meq PO BEDTIME 11/27/23 07/25/24 04/15/24 History tablet,extended release vit B,C-folic ac 800 mcg-zinc 12.5 1 tab PO DAILY 11/27/23 07/25/24 04/16/24 History mg-selen-D3 2,000 unit-vit E tablet (RenaPlex-D) doxazosin 2 mg tablet 2 mg PO BEDTIME 01/27/24 07/25/24 04/15/24 History polyethylene glycol 3350 17 17 g PO PRN PRN Constipation 01/27/24 07/25/24 04/15/24 History gram/dose oral powder (Miralax) amiodarone 100 mg tablet 100 mg PO DAILY #30 tabs 05/09/24 07/25/24 Unknown Rx mirtazapine 15 mg tablet 15 mg PO DAILY insomnia #30 tabs 05/16/24 07/25/24 Unknown Rx apixaban 5 mg tablet (Eliquis) See Rx Instructions .Route 05/26/24 07/26/24 07/23/24 Rx .COMPLEX #90 tabs amlodipine 2.5 mg tablet 2.5 mg PO DAILY #90 tabs 05/30/24 07/25/24 Unknown Rx spironolactone 25 mg tablet 12.5 mg (1/2 x 25 mg) PO DAILY #30 05/30/24 07/25/24 Unknown Rx tabs blood sugar diagnostic (OneTouch #200 ea 06/27/24 07/25/24 Unknown Rx Ultra Test strips) insulin glargine 100 unit/mL (3 35 unit SUBCUT QAM 07/20/24 07/25/24 Unknown History mL) subcutaneous pen (Lantus Solostar U-100 Insulin) hydrocodone 5 mg-acetaminophen 325 1 tab PO Q8H PRN pain 30 days #45 07/21/24 07/25/24 Unknown Rx mg tablet tabs sulfamethoxazole 800 1 tab PO BID #14 tabs 07/21/24 07/25/24 Unknown Rx mg-trimethoprim 160 mg tablet (Bactrim DS) Allergies Allergy/AdvReac Type Severity Reaction Status Date / Time Penicillins Allergy Unknown Rash,Unknow Verified 07/25/24 12:36 n Current Medications Generic Name Dose Route Start Last Admin Trade Name Harpal PRN Reason Stop Dose Admin Amiodarone HCl 100 mg 07/27/24 09:00 07/27/24 09:24 Amiodarone 200 Mg Tablet PO 100 mg DAILY NIKO Administration Furosemide 80 mg 07/27/24 09:00 07/27/24 09:24 Furosemide 40 Mg Tablet PO 80 mg BID NIKO Administration Insulin Glargine 35 unit 07/27/24 06:00 07/27/24 06:41 Insulin Glargine 100 Units/1 Ml SUBCUT Not Given QAM NIKO Levothyroxine Sodium 75 mcg 07/27/24 06:00 07/27/24 05:13 Levothyroxine 75 Mcg Tablet PO 75 mcg QAM NIKO Administration Mirtazapine 15 mg 07/27/24 09:00 07/27/24 09:24 Mirtazapine 15 Mg Tablet PO 15 mg DAILY NIKO Administration Peritoneal Dialysis Solution 2,000 ml 07/27/24 09:00 07/27/24 12:05 Dianeal Low Ca W/1.5% Dex 2,000 Ml Bag INTRAPERIT 2,000 ml QID NIKO Administration PFSH Acute 2 PFSH: Medical History Essential hypertension ESRD (end stage renal disease) on dialysis Sepsis Cystitis Decubitus ulcer, buttock Heel ulcer UTI (urinary tract infection) Leukocytosis Pubic ramus fracture Closed fracture of single pubic ramus of pelvis Pelvic fracture Acute respiratory failure with hypoxia Hypoxemia Atrial fibrillation PVC (premature ventricular contraction) Hypoglycemia associated with type 2 diabetes mellitus Pneumonia due to COVID-19 virus ESRD on peritoneal dialysis Atrial fibrillation Acute kidney injury superimposed on CKD Pneumonia Osteoarthritis (arthritis due to wear and tear of joints) Altered mental status Meningioma Anemia COVID-19 resolved Hypothyroidism GERD (gastroesophageal reflux disease) HTN (hypertension) CHF (congestive heart failure) CKD (chronic kidney disease) Diabetes Surgical History Peritoneal dialysis catheter in situ (06/26/21) History of ankle surgery S/P tonsillectomy Status post tubal ligation S/P cataract extraction S/P cervical spinal fusion Family History Mother Hypertension Grandmother Hypertension MATERNAL Other Cancer Diabetes Social History Smoking and tobacco/nicotine status: never used tobacco/nicotine Quit status (tobacco/nicotine): has quit using Year quit tobacco: 1977 [id number] Second hand smoke exposure: Yes Alcohol intake: never Substance/Drug Use: never Caregiver/support person: Yes Lives independently: Yes Household members: spouse and children Housing: House Marital status: Current occupational status: retired Pets and animals: Yes Do you think of yourself as: Straight/Heterosexual Current gender identity: Female Vitals/I&O/Wt Last Vital Signs Temp 97.9 F 07/27/24 11:30 Pulse 73 07/27/24 11:30 Resp 17 07/27/24 12:02 BP 127/65 07/27/24 11:30 Pulse Ox 96 07/27/24 12:02 O2 Del Method Room Air 07/27/24 11:30 Weight last 48 hrs Weight 81.448 kg Weight 81.448 kg Physical Exam 2 Const: COMMON NORMALS: no acute distress and patient oriented x3 HENMT: COMMON NORMALS: normocephalic HEAD & SCALP: normocephalic Neck/C-Spine: COMMON NORMALS: no JVD Resp: COMMON NORMALS: normal respiratory effort, No retractions, No use of accessory muscles and clear to auscultation bilaterally AUSCULTATION: clear to auscultation bilaterally Cardio: COMMON NORMALS: no JVD, regular rate, regular rhythm, S1 normal heart sound present and S2 normal heart sound present RATE: regular rate RHYTHM: regular rhythm HEART SOUNDS: S1 normal heart sound present and S2 normal heart sound present GI: COMMON NORMALS: Normal to inspection, nondistended, normoactive bowel sounds present and non-tender Extremity: COMMON NORMALS: no pedal edema Neuro: COMMON NORMALS: patient oriented x3, CN's II-XII intact bilaterally and moves all extremities OTHER: Right heel, calcaneus, large ulcer, measuring 4 x 4 cm, with black eschar, does have serosanguineous drainage around it, with surrounding erythema, capillary refill less than 2 seconds, DP pulse palpable but diminished, PT pulse is palpable but significantly diminished, no pain, poikilothermia Psych: COMMON NORMALS: mental status grossly normal Data 07/27/24 09:01 07/27/24 09:01 A&P Assessment and plan (1) HTN (hypertension): Qualifiers: Hypertension type: essential hypertension Qualified Code(s): I10 - Essential (primary) hypertension (2) Critical lower limb ischemia: (3) Foot ulcer, right: (4) ESRD (end stage renal disease) on dialysis: (5) CHF (congestive heart failure): Qualifiers: Heart failure type: diastolic Heart failure chronicity: chronic Qualified Code(s): I50.32 - Chronic diastolic (congestive) heart failure (6) Diabetes: Qualifiers: Diabetes mellitus type: type 2 Diabetes mellitus fpc insulin use: with salvage determiner use Diabetes mellitus complication status: with kidney complications Diabetes mellitus complication detail: with chronic kidney disease Chronic kidney disease stage: on chronic dialysis Qualified Code(s): E 11.22 - Type 2 diabetes mellitus with diabetic chronic kidney disease; N18.6 - End stage renal disease; 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 -Will obtain a UA -Could be from right heel ulcer, vascular and/or diabetic ulcer -CT right foot -No complaints of shortness of breath, or cough, chest x-ray # Blood cultures # Pro-Maikol, CRP Critical limb ischemia CTA 06/2024 moira: No aortic aneurysm. No aortic dissection. Celiac trunk and mesenteric arteries: There is atherosclerotic plaque at the celiac trunk origin with focal severe stenosis. Atherosclerotic plaque at the superior mesenteric artery origin results in mild narrowing. Renal arteries: There is a main and accessory right renal artery. Calcified plaque in the proximal 8 mm of the right main renal artery results in stenosis. There is reconstitution of flow distally by collaterals. The accessory right renal artery is positioned anterior to the main right renal artery and is patent. Single main left renal artery bifurcates 3 mm distal to the origin. There is calcified plaque at the origin with severe stenosis to occlusion. Reconstitution of flow is seen distal to the origin. Right iliac arteries: There is atherosclerotic plaque in the right common iliac artery 2.6 cm distal to the bifurcation with severe stenosis. Atherosclerotic plaque throughout the right external iliac artery results in regions of mild stenosis. Right femoral/popliteal arteries: There is scattered atherosclerotic plaque with multiple regions of severe stenosis and occlusion in the right femoral and popliteal arteries. Right infrapopliteal arteries: Limited evaluation of the runoff vessels to the foot secondary to calcified atheromatous disease. Left iliac arteries: Atherosclerotic plaque in the left common iliac artery results in regions of mild to moderate stenosis. There is atherosclerotic plaque in the left external iliac artery with mild stenosis. Left femoral/popliteal arteries: There is atherosclerotic plaque in the femoral and popliteal arteries with multiple regions of moderate to severe stenosis. Left infrapopliteal arteries: Limited evaluation of the runoff vessels to the foot secondary to calcified atheromatous disease. ? Spoke to cardiology, would be reasonable to start patient on heparin drip ? Continue aspirin, statin Right foot ulcer, over calcaneum # Vascular and/or diabetic ulcer ? Plan ? As above ? Start vancomycin Start Zosyn ? Follow blood cultures ? Follow tissue cultures ? Follow inflammatory markers ? CT of the right calcaneum ? Monitor clinical status ? Spoke to podiatry, will evaluate Type 2 diabetes mellitus, continue home Lantus 35 units subcu a.m., low-dose sliding scale History of atrial fibrillation ? Currently Eliquis is on hold ? Heparin drip End-stage renal disease on peritoneal dialysis -We have the resources to do PD dialysis here as inpatient Full code ? Heparin drip for DVT prophylaxis Spoke to patient, spoke to nursing staff, spoke to cardiology, spoke to podiatry, reviewed prior records Diagnoses Essential hypertension I10 Hypertension type: essential hypertension Critical lower limb ischemia I70.229 Foot ulcer, right L97.519 ESRD (end stage renal disease) on dialysis N18.6; Z99.2 Chronic diastolic congestive heart failure I50.32 Heart failure type: diastolic Heart failure chronicity: chronic Type 2 diabetes mellitus with chronic kidney disease on chronic dialysis, with long-term current use of insulin E11.22; N18.6; Z79.4; Z99.2 Diabetes mellitus type: type 2 Diabetes mellitus salvage determiner insulin use: with salvage determiner use Diabetes mellitus complication status: with kidney complications Diabetes mellitus complication detail: with chronic kidney disease Chronic kidney disease stage: on chronic dialysis
[2024-07-27] MEDS: HYDROmorphone 1 mg/mL INJ 1 mL IVP (15:33)
--- NOTE | 2024-07-27 15:33 | USR_ITS ---
PROCEDURE INFORMATION: Exam: US Retroperitoneal, Complete, Kidneys and Bladder Exam date and time: 07/27/2024 4:55 PM Age: 84 years old Clinical indication: Abnormal findings; Abnormal lab test; Other: UTI; Additional info: Chandana, UTI TECHNIQUE: Imaging protocol: Real-time ultrasound of the retroperitoneum with image documentation. Complete exam focused on the bilateral kidneys and urinary bladder. COMPARISON: US abdomen complete* [id number] 10/01/2020 6:12 AM FINDINGS: Right kidney: Right kidney measures 9.1 cm in length. No stones. No hydronephrosis. Left kidney: Left kidney measures 8.9 cm in length. No stones. No hydronephrosis. Urinary bladder: Unremarkable. Intraperitoneal space: Perihepatic ascites. US/US renal BI* [id number] IMPRESSION: 1. Unremarkable kidneys and bladder. 2. Perihepatic ascites.
[2024-07-27 15:47] LABS: Erythrocyte Sedimentation Rate 39 mm/hr (0-15)
[2024-07-27 16:01] LABS: C Reactive Protein 36.8 mg/L (0.0-4.9)
[2024-07-27 16:02] LABS: Lactic Sepsis W/Reflex 2.1 mmol/L (0.5-2.2)
[2024-07-27 16:08] LABS: Procalcitonin 1.85 ng/mL (0-0.5)
--- NOTE | 2024-07-27 16:08 | PM.CONSULT ---
Providers/Reason For Consult Consulting Physician/Specialty*: Campbell Mckeon.P.M./podiatry Reason for Consult*: Right heel decubitus ulcer Attending Physician: Leigh Ann Lock MD Primary Care Provider: Mann Garduno MD History of Present Illness History of Present Illness Luiza Cooper is a 84 year old female who is currently admitted to the hospital by interventional cardiology for right lower extremity revascularization. Patient has chronic heel decubitus ulceration for which she is seeing wound care weekly. Patient states that this wound began months ago when she fell and broke her hip. She was in a assisted where she developed bilateral heel decubitus ulcerations. The left heel wound healed without incident. However, the right heel wound has progressed to this chronic ulceration. CT angiogram was obtained which revealed peripheral vascular disease. Patient was admitted for revascularization. After admission patient was noted to have elevated white count. Elevated creatinine was also noted. Revascularization was postponed until medical optimization was achieved. Podiatry is consulted to evaluate right heel decubitus ulceration to determine if any surgical intervention is warranted. Review of Systems General: Reports: 10 or more systems reviewed and unremarkable except in HPI and below Const: Denies: fever(s), chills, body aches or change in appetite Eyes: Denies: change in vision or blurry vision Card: Denies: chest pain, palpitations or irregular heart rhythm Resp: Denies: dyspnea GI: Denies: abdominal pain, nausea, vomiting or diarrhea Musc: Reports: joint stiffness Skin/Breast: Reports: non-healing lesions and lesions Neuro: Reports: numbness in extremities Medications/Allergies Home Medications Medication Instructions Recorded Confirmed Last Taken Type blood sugar diagnostic (Contour #300 ea 10/08/22 07/25/24 Unknown Rx Next Test Strips) blood-glucose meter (OneTouch #1 ea 10/13/22 07/25/24 Unknown Rx Ultra2 Meter) lancets 33 gauge (OneTouch Delica #100 ea 10/13/22 07/25/24 Unknown Rx Plus Lancet) pen needle, diabetic 31 gauge x #100 ea 10/27/23 07/25/24 Unknown Rx 5/16 (BD Ultra-Fine Short Pen Needle) atorvastatin 40 mg tablet 40 mg PO QPM 11/27/23 07/25/24 04/15/24 History coenzyme Q10 100 mg capsule 100 mg PO BEDTIME 11/27/23 07/25/24 04/15/24 History (CoQ-10) furosemide 40 mg tablet 80 mg PO BID 11/27/23 07/25/24 04/16/24 History levothyroxine 75 mcg tablet 75 mcg PO QAM 11/27/23 07/25/24 04/16/24 History potassium chloride 20 mEq 10 meq PO BEDTIME 11/27/23 07/25/24 04/15/24 History tablet,extended release vit B,C-folic ac 800 mcg-zinc 12.5 1 tab PO DAILY 11/27/23 07/25/24 04/16/24 History mg-selen-D3 2,000 unit-vit E tablet (RenaPlex-D) doxazosin 2 mg tablet 2 mg PO BEDTIME 01/27/24 07/25/24 04/15/24 History polyethylene glycol 3350 17 17 g PO PRN PRN Constipation 01/27/24 07/25/24 04/15/24 History gram/dose oral powder (Miralax) amiodarone 100 mg tablet 100 mg PO DAILY #30 tabs 05/09/24 07/25/24 Unknown Rx mirtazapine 15 mg tablet 15 mg PO DAILY insomnia #30 tabs 05/16/24 07/25/24 Unknown Rx apixaban 5 mg tablet (Eliquis) See Rx Instructions .Route 05/26/24 07/26/24 07/23/24 Rx .COMPLEX #90 tabs amlodipine 2.5 mg tablet 2.5 mg PO DAILY #90 tabs 05/30/24 07/25/24 Unknown Rx spironolactone 25 mg tablet 12.5 mg (1/2 x 25 mg) PO DAILY #30 05/30/24 07/25/24 Unknown Rx tabs blood sugar diagnostic (OneTouch #200 ea 06/27/24 07/25/24 Unknown Rx Ultra Test strips) insulin glargine 100 unit/mL (3 35 unit SUBCUT QAM 07/20/24 07/25/24 Unknown History mL) subcutaneous pen (Lantus Solostar U-100 Insulin) hydrocodone 5 mg-acetaminophen 325 1 tab PO Q8H PRN pain 30 days #45 07/21/24 07/25/24 Unknown Rx mg tablet tabs sulfamethoxazole 800 1 tab PO BID #14 tabs 07/21/24 07/25/24 Unknown Rx mg-trimethoprim 160 mg tablet (Bactrim DS) Allergies Allergy/AdvReac Type Severity Reaction Status Date / Time Penicillins Allergy Unknown Rash,Unknow Verified 07/25/24 12:36 n Current Medications Generic Name Dose Route Start Last Admin Trade Name Freq PRN Reason Stop Dose Admin Amiodarone HCl 100 mg 07/27/24 09:00 07/27/24 09:24 Amiodarone 200 Mg Tablet PO 100 mg DAILY NIKO Administration Furosemide 80 mg 07/27/24 09:00 07/27/24 09:24 Furosemide 40 Mg Tablet PO 80 mg BID NIKO Administration Hydromorphone HCl 1 mg 07/27/24 15:18 07/27/24 15:33 Hydromorphone 1 Mg/Ml Inj 1 Ml IVP 1 mg Q4H PRN Administration SEVERE PAIN Insulin Glargine 35 unit 07/27/24 06:00 07/27/24 06:41 Insulin Glargine 100 Units/1 Ml SUBCUT Not Given QAM NIKO Levothyroxine Sodium 75 mcg 07/27/24 06:00 07/27/24 05:13 Levothyroxine 75 Mcg Tablet PO 75 mcg QAM NIKO Administration Mirtazapine 15 mg 07/27/24 09:00 07/27/24 09:24 Mirtazapine 15 Mg Tablet PO 15 mg DAILY NIKO Administration Peritoneal Dialysis Solution 2,000 ml 07/27/24 09:00 07/27/24 12:05 Dianeal Low Ca W/1.5% Dex 2,000 Ml Bag INTRAPERIT 2,000 ml QID NIKO Administration PFSH Acute PFSH: Medical History Essential hypertension ESRD (end stage renal disease) on dialysis Sepsis Cystitis Decubitus ulcer, buttock Heel ulcer UTI (urinary tract infection) Leukocytosis Pubic ramus fracture Closed fracture of single pubic ramus of pelvis Pelvic fracture Acute respiratory failure with hypoxia Hypoxemia Atrial fibrillation PVC (premature ventricular contraction) Hypoglycemia associated with type 2 diabetes mellitus Pneumonia due to COVID-19 virus ESRD on peritoneal dialysis Atrial fibrillation Acute kidney injury superimposed on CKD Pneumonia Osteoarthritis (arthritis due to wear and tear of joints) Altered mental status Meningioma Anemia COVID-19 resolved Hypothyroidism GERD (gastroesophageal reflux disease) HTN (hypertension) CHF (congestive heart failure) CKD (chronic kidney disease) Diabetes Surgical History Peritoneal dialysis catheter in situ (06/26/21) History of ankle surgery S/P tonsillectomy Status post tubal ligation S/P cataract extraction S/P cervical spinal fusion Family History Mother Hypertension Grandmother Hypertension MATERNAL Other Cancer Diabetes Social History Smoking and tobacco/nicotine status: never used tobacco/nicotine Quit status (tobacco/nicotine): has quit using Year quit tobacco: 1977 [id number] Second hand smoke exposure: Yes Alcohol intake: never Substance/Drug Use: never Caregiver/support person: Yes Lives independently: Yes Household members: spouse and children Housing: House Marital status: Current occupational status: retired Pets and animals: Yes Do you think of yourself as: Straight/Heterosexual Current gender identity: Female Vitals/I&O/Wt Last Vital Signs Temp 97.9 F 07/27/24 11:30 Pulse 73 07/27/24 11:30 Resp 20 H 07/27/24 15:33 BP 127/65 07/27/24 11:30 Pulse Ox 95 07/27/24 15:33 O2 Del Method Room Air 07/27/24 11:30 Weight last 48 hrs Weight 179 lb 9 oz Weight 179 lb 9 oz Physical Exam Narrative: BELOW IS A FOCUSED LOWER EXTREMITY EXAM GENERAL: A&O x 3 VASCULAR: DP/PT pulses nonpalpable to right lower extremity DERMATOLOGICAL: Unstageable heel decubitus ulceration, stable eschar right posterior heel no active drainage. No signs of underlying infection. He will decubitus eschar measures 5.0 x 7.0 cm negative probe to bone MUSCULOSKELETAL: Tenderness with palpation of right posterior heel at site of eschar NEUROLOGICAL: Neurological sensation to the affected foot and ankle is present through L4-S1 dermatomes with no hyper/hypoesthesias, negative Tinel or Valleix's sign Data 07/27/24 09:01 07/27/24 09:01 A&P Assessment and plan (1) Critical lower limb ischemia: (2) Decubitus ulcer of heel, unstageable: (3) Diabetes: Qualifiers: Diabetes mellitus type: type 2 Diabetes mellitus senior care insulin use: with senior care use Diabetes mellitus complication status: with kidney complications Diabetes mellitus complication detail: with chronic kidney disease Chronic kidney disease stage: on chronic dialysis Qualified Code(s): E11.22 - Type 2 diabetes mellitus with diabetic chronic kidney disease; N18.6 - End stage renal disease; 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 No debridement warranted during this admission. Lengthy discussion was had with patient in regards to decubitus heel ulceration and the stable nature of the wound. Debridement in the presence of critical limb ischemia would result in significant decline of wound progress. Additionally, wound is stable eschar with no signs of infection. After revascularization patient should notice improvement in wound healing progress. Patient is going for revascularization with interventional cardiology tomorrow 07/28/2024. Case was discussed with Dr. Palma -Pain Mgmt: Per primary team -Weight bearing: Weightbearing as tolerated -Dressings: Betadine wet-to-dry. Wear Prevalon boots while at rest -Discharge plan: Patient is okay to discharge from podiatry standpoint with regular follow-up at wound care in the outpatient setting. -Podiatry will sign off. Please reconsult if needed. Coding Level of Care Code Acute Code for [facility] Diagnoses Critical lower limb ischemia I70.229 Decubitus ulcer of heel, unstageable L89.600 Type 2 diabetes mellitus with chronic kidney disease on chronic dialysis, with long-term current use of insulin E11.22; N18.6; Z79.4; Z99.2 Diabetes mellitus type: type 2 Diabetes mellitus terminal make up operator insulin use: with terminal make up 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 Diabetes mellitus complication status: with kidney complications Diabetes mellitus complication detail: with chronic kidney disease Chronic kidney disease stage: on chronic dialysis
[2024-07-27 16:09] LABS: Estmated Average Glucose 154
[2024-07-27] MEDS: heparin drip 25,000 UNIT/500 ML PREMIX 35.84 UNIT IV (16:17)
[2024-07-27] MEDS: pantoprazole 40 mg SDV IVP (16:17)
[2024-07-27] MEDS: heparin 5,000 unit/mL INJ 1 mL IVP (16:18)
[2024-07-27] MEDS: meropenem 500 mg SDV IVP (16:18)
[2024-07-27 16:38] LABS: INR 1.37 (0.8-1.2)
[2024-07-27 17:08] LABS: Bilirubin Urine Negative (Negative); Blood Urine Negative (Negative); Glucose Urine UA Negative (Normal); Ketones Urine Negative (Negative); Leukocyte Esterase Urine 3+ (Negative); Nitrate Urine Negative (Negative); Protein Urine 1+ (Negative); Specific Gravity, Urine 1.019 (1.005-1.030); Urine Appearance Cloudy (CLEAR); Urine Color Yellow (Yellow); pH Urine 5.5 (5-7)
[2024-07-27 17:13] LABS: Add Urine Culture? Yes; Add Urine Microscopic? YES; Bacteria Urine 4+ /hpf; Hyaline Casts Urine 0-4 /lpf; RBC Urine 0-2 /hpf (0-2); Squamous Epithelial Cell Urine 0-5 /hpf (0-5); WBC Urine >100 /hpf (0-5)
[2024-07-27 17:19] LABS: Reflex Lactate Order REFLEX LACTIC ORDERD
[2024-07-27 17:31] LABS: Urine Random Sodium 66 mmol/L
[2024-07-27 17:36] LABS: Glucose Point of Care 177 mg/dL (70-110)
[2024-07-27] MEDS: atorvastatin 40 mg Tablet PO (17:52)
[2024-07-27] MEDS: insulin lispro 100 unit/1 mL SUBCUT (17:52)
[2024-07-27] MEDS: vancomycin 2,000 MG/400 ML PIGGYBACK 200 MG IV (17:55)
[2024-07-27 19:06] LABS: Lactic Acid level (Lactate) 1.3 mmol/L (0.5-2.2)
[2024-07-27 19:39] LABS: Mononuclear #, Pertinoneal Fl 0.022 10^3/uL; Polynuclear # Cells, Perit 0.088 10^3/uL; RBC Pertioneal Fluid 0 10^3/uL; WBC Peritoneal Fluid 110 /uL
[2024-07-27 19:51] LABS: Appearance, Peritoneal Fluid Clear (Clear); Color, Peritoneal Fluid Colorless (Pale Yellow); Pathology Referral Yes
--- NOTE | 2024-07-27 20:13 | PHA.VACGOAL ---
Vancomycin Goal - Goal Vancomycin Goal:: 10-15 mg/L Vancomycin Indication:: SSTI - Therapy Current therapy:: Meropenem Day of therpy:: Day [1]of [] . Actual body weight (kg): 81.448 kg - Data Labs: WBC 16.86 10^3/uL (3.29-11.43) H 07/27/24 09:01 RBC 3.06 10^6/uL (3.85-5.65) L 07/27/24 09:01 Hgb 9.50 g/dL (11.27-16.99) L 07/27/24 09:01 Hct 30.3 % (36-47) L 07/27/24 09: MCV 99.0 fl (85-98) H 07/27/24 09: MCH 31.0 pg (27-33) 07/27/24 09: MCHC 31.4 g/dL (30-55) 07/27/24 09:01 RDW 14.5 % (12.1-15.1) 07/27/24 09:01 Sodium 129 mmol/L (136-145) L 07/27/24 09:01 Potassium 5.6 mmol/L (3.5-5.1) H 07/27/24 09: Chloride 90 mmol/L (98-107) L 07/27/24 09:01 Carbon Dioxide 21 mmol/L (22-29) L 07/27/24 09:01 Anion Gap 23.6 (5-19) H 07/27/24 09:01 BUN 66 mg/dL (8-23) H 07/27/24 09:01 Creatinine 8.5 mg/dL (0.5-0.9) H* 07/27/24 09: GFR Calculation Not Reportable 07/27/24 09:01 Treatment plan:: new consult Regimen:: Patient is 84 year old female new start vancomycin for UTI/foot ulceration (SSTI). Scr of 8.5 mg/dL. 2000 mg load dose. Pharmacy will continue to monitor.
[2024-07-27 21:07] LABS: Glucose Point of Care 235 mg/dL (70-110)
[2024-07-27] MEDS: doxazosin 1 mg Tablet 2 MG PO (21:09)
[2024-07-27 22:57] LABS: Partial Thromboplastin Time > 250.0 SECONDS (23.9-36.7)
[2024-07-28] VITALS (56 sets, daily range): BP systolic 90–147; BP diastolic 29–86; PULSE 60–81; RESP 10–29; TEMP 36.1–36.8; O2SAT 90–100
[2024-07-28 03:34] LABS: Basophils # 0.1 10^3/uL (0.0-0.1); Basophils % 0.4 %; Eosinophils # 0.3 10^3/uL (0.0-0.8); Eosinophils % 1.4 %; Hematocrit 29.2 % (36-47); Lymphocytes # 2.8 10^3/uL (0.8-4.8); Lymphocytes % 15.3 %; Mean Corpuscular HGB Conc 31.5 g/dL (30-55); Mean Corpuscular Hemoglobin 31.5 pg (27-33); Mean Platelet Volume 8.6 fL (7.4-10.4); Monocytes # 0.9 10^3/uL (0.2-0.9); Neutrophils # 13.64 10^3/uL (1.8-7.7); Neutrophils % 75.5 %; Nucleated Red Blood Cells % 0 %; Platelet Count 373 10^3/cmm (157-399); Red Blood Count 2.92 10^6/uL (3.85-5.65); Red Cell Distribution Width 14.1 % (12.1-15.1); White Blood Count 18.08 10^3/uL (3.29-11.43)
[2024-07-28 03:44] LABS: Partial Thromboplastin Time 35.7 SECONDS (23.9-36.7)
[2024-07-28 03:54] LABS: Alanine Aminotransferase 16 U/L (0-33); Albumin Level 2.9 g/dL (3.5-5.2); Alkaline Phosphatase 101 U/L (35-105); Anion Gap 24.7 (5-19); Aspartate Amino Transferase 10 U/L (0-32); Blood Urea Nitrogen 59 mg/dL (8-23); Calcium 8.2 mg/dL (8.5-10.5); Carbon Dioxide 20 mmol/L (22-29); Chloride 90 mmol/L (98-107); Creatinine Clr Calc Pharmacy 5.4489; Globulin 2.6 g/dL (1.3-4.6); Glucose 258 mg/dL (65-115); Iron 98 ug/dL (37-145); Magnesium 1.7 mg/dL (1.7-2.3); Osmolality Calculated 295 mOsm/kg (285-295); Phosphorus 6.5 mg/dL (2.5-4.5); Potassium 4.7 mmol/L (3.5-5.1); Sodium 130 mmol/L (136-145); Total Bilirubin 0.2 mg/dL (0.15-1.2); Total Protein 5.5 g/dL (6.6-8.7)
[2024-07-28 04:08] LABS: 25 Hydroxy Vitamin D 31 ng/mL (30-100)
[2024-07-28 04:11] LABS: Parathyroid Hormone 216.5 pg/mL (15-65)
[2024-07-28 04:13] LABS: Ferritin 2027 ng/mL (15-150); Total Iron Binding Capacity 100.99999 mcg/dl; Unsaturated Iron Binding < 3 ug/dL (112-347)
[2024-07-28 04:14] LABS: Calcium 8.2 mg/dL (8.5-10.5)
[2024-07-28] MEDS: Dianeal low Ca w/1.5% dex 2,000 mL Bag 2000 ML INTRAPERIT ×4 (04:43→20:40)
[2024-07-28] MEDS: levothyroxine 75 mcg Tablet PO (04:44)
[2024-07-28] MEDS: insulin glargine 100 units/1 mL 35 UNIT SUBCUT (06:21)
[2024-07-28 06:44] LABS: Glucose Point of Care 248 mg/dL (70-110)
--- NOTE | 2024-07-28 07:54 | PM.PN ---
Subjective Subjective: The patient was seen and examined. The patient tolerated peritoneal dialysis well yesterday. The patient has no nausea vomiting. Patient still has leg pain in the right heel decubiti ulcer. Recent CT angiogram revealed peripheral vascular disease. The patient was seen by podiatry overnight she felt that she did not need debridement. The patient was seen by Dr. Burnett of medicine and started on vancomycin and Zosyn. As she has A-fib. Her Eliquis was held for the catheterization and she is on heparin drip. No other complaints. Medications: Reviewed: Yes Medication Review Details: Current Medications Acetaminophen (Acetaminophen 325 Mg Tablet) 650 mg PO Q6H PRN PRN Reason: Mild/Mod Pain Or Temp >/= 101 Amiodarone HCl (Amiodarone 200 Mg Tablet) 100 mg PO DAILY [facility] Last Admin: 07/27/24 09:24 Dose: 100 mg Aspirin (Aspirin 81 Mg Ec Tablet) 81 mg PO DAILY [facility] Atorvastatin Calcium (Atorvastatin 40 Mg Tablet) 40 mg PO QPM [facility] Last Admin: 07/27/24 17:52 Dose: 40 mg Doxazosin Mesylate (Doxazosin 1 Mg Tablet) 2 mg PO BEDTIME [facility] Last Admin: 07/27/24 21:09 Dose: 2 mg Furosemide (Furosemide 40 Mg Tablet) 80 mg PO BID [facility] Last Admin: 07/27/24 17:51 Dose: 80 mg Glucagon (Glucagon 1 Mg/Ml Kit 1 Ml) 1 mg IM ONCE PRN; Protocol PRN Reason: Adult Acute Hypoglycemia Nursing Prot. Heparin Sodium (Porcine) (Heparin 5,000 Unit/Ml Inj 1 Ml) 0 unit IVP PRN PRN; Protocol PRN Reason: Heparin Weight Based Protocol -Subsequent Bolus Hydromorphone HCl (Hydromorphone 1 Mg/Ml Inj 1 Ml) 1 mg IVP Q4H PRN PRN Reason: SEVERE PAIN Last Admin: 07/27/24 15:33 Dose: 1 mg Dextrose (D5w) 500 mls @ 0 mls/hr IV ONCE PRN; Protocol PRN Reason: Adult Acute Hypoglycemia Prot Dextrose (D10w) 125 mls @ 750 mls/hr IV PRN PRN; Protocol PRN Reason: Adult Acute Hypoglycemia Nursing Protocol Dextrose (D10w) 250 mls @ 1,000 mls/hr IV PRN PRN; Protocol PRN Reason: Adult Acute Hypoglycemia Nursing Protocol Heparin Sodium/Sodium Chloride (Heparin Drip) 25,000 unit in 500 mls @ 0 mls/hr IV CONT [facility]; Protocol Last Titration: 07/28/24 05:19 Dose: 20 unit/kg/hr, 32.58 mls/hr Insulin Glargine (Insulin Glargine 100 Units/1 Ml) 35 unit SUBCUT QAM [facility] Last Admin: 07/28/24 06:21 Dose: 35 unit Insulin Human Lispro (Insulin Lispro 100 Unit/1 Ml) 0 unit SUBCUT TIDWM [facility]; Protocol Last Admin: 07/27/24 17:52 Dose: 2 unit Levothyroxine Sodium (Levothyroxine 75 Mcg Tablet) 75 mcg PO QAM [facility] Last Admin: 07/28/24 04:44 Dose: 75 mcg Meropenem (Meropenem 500 Mg Sdv) 500 mg IVP Q24H [facility]; Protocol Last Admin: 07/27/24 16:18 Dose: 500 mg Mirtazapine (Mirtazapine 15 Mg Tablet) 15 mg PO DAILY [facility] Last Admin: 07/27/24 09:24 Dose: 15 mg Naloxone HCl (Naloxone 0.4 Mg/Ml Sdv) 0.4 mg IVP PRN PRN PRN Reason: RESPIRATORY RATE < 8/MIN Non-Formulary Medication (Coenzyme Q10 [Coq-10]) 100 mg PO BEDTIME [facility] Ondansetron HCl (Ondansetron 2 Mg/Ml Sdv 2 Ml) 4 mg IVP Q8H PRN PRN Reason: vomiting, or N/V if npo Pantoprazole Sodium (Pantoprazole 40 Mg Sdv) 40 mg IVP Q24H [facility] Last Admin: 07/27/24 16:17 Dose: 40 mg Peritoneal Dialysis Solution (Dianeal Low Ca W/1.5% Dex 2,000 Ml Bag) 2,000 ml INTRAPERIT QID [facility] Last Admin: 07/28/24 04:43 Dose: 2,000 ml Polyethylene Glycol (Polyethylene Glycol 3350 Pkt 17 Gm) 17 gm PO DAILY PRN PRN Reason: Constipation Vancomycin HCl (Vancomycin 1,000 Mg Sdv (Pharmacy Mix)) 0 mg XX PRN PRN PRN Reason: Pharmacy to Dose Vitals/I&O/Wt Last Vital Signs Temp 97.9 F 07/28/24 07:36 Pulse 81 07/28/24 07:36 Resp 20 H 07/28/24 07:36 BP 147/55 07/28/24 07:36 Pulse Ox 98 07/28/24 07:36 O2 Del Method Room Air 07/28/24 07:36 07/27/24 07/28/24 07/28/24 22:59 06:59 14:59 Intake Total 720 / 720 544.309 / 1264.309 Output Total 200 / 200 Balance 720 / 720 544.309 / 1264.309 -200 / -200 Weight last 48 hrs Weight 84.096 kg Weight 81.448 kg Weight 81.448 kg Physical Exam Narrative: Comfortable in bed no apparent distress. Vital signs noted. HEENT normocephalic atraumatic. Neck is supple. Lungs are clear to auscultation. Heart is regular no rubs or gallops. Abdomen is soft positive bowel sounds nontender positive Tenckhoff catheter. Distended. Extremities no edema right foot is bandaged. Poor pulses.pictures of right foot heel ulcer with eschar reviewed The patient was seen and examined using audiovisual equipment with the aide of a nurse. Data 07/28/24 03:22 07/28/24 03:22 Micro: Microbiology 07/27/24 16:12 Blood Culture - Preliminary Blood SPECIMEN COLLECTED 07/27/24 16:10 Blood Culture - Preliminary Blood SPECIMEN COLLECTED A&P Assessment and plan (1) ESRD (end stage renal disease) on dialysis: 84-year-old lady 1. Peripheral arterial disease. Angiogram today. 2. ESRD the patient is on peritoneal dialysis -cont 4 exchanges a day w/ low gluc , 2 liter fills 3. Hyponatremia check TSH- 30 needs increased dose of levothyroxine - i raised dose to 100 d- please confirm that she was taking levothyroxine at home 4. Hyperkalemia -improving with peritoneal dialysis. 5. Leukocytosis. Can be from heel. Also question of UTI. Urinalysis 5-10 RBCs 2+ leukocytes too numerous to count white cells 2+ blood. Urine culture from July 22/2024 revealed Enterobacter cloacae resistant to ceftriaxone and cefuroxime. on renal dose vanco and zosyn. please check vanco level daily 6. Hemoglobin -9.2 -high iron sat. ferritin 2026. NO IRON MAY NEED LIVER EVAL. OR RECEIVED LOTS OF IRON 7. Will check vitamin D PTH 216- PO CALCITRIOL and phosphorus binders. 8. History of paroxysmal A-fib currently in sinus rhythm on amiodarone. 9. patient was seen and examined using audiovisual equipment as a telehealth visit with the aid of a nurse. The patient consented to telehealth and to dialysis. Plan For angiogram. Peritoneal dialysis. Attestations Medical Necessity Statement*: PVD, hypothyroidism, esrd Time Spent in Patient Care: 16 - 35 minutes (>than 50% of time spent in counselling and/or direct pt care on unit). Coding Level of Care Code Acute Code for [facility] Diagnoses ESRD (end stage renal disease) on dialysis N18.6; Z99.2
[2024-07-28] MEDS: FUROsemide 40 mg Tablet 80 MG PO ×2 (07:56→17:01)
[2024-07-28] MEDS: acetaminophen 325 mg Tablet 650 MG PO (07:56)
[2024-07-28] MEDS: amiodarone 200 mg Tablet 100 MG PO (07:57)
[2024-07-28] MEDS: aspirin 81 mg EC Tablet PO (07:58)
[2024-07-28] MEDS: insulin lispro 100 unit/1 mL SUBCUT (08:00)
[2024-07-28] MEDS: levothyroxine 25 mcg Tablet PO (08:51)
[2024-07-28] MEDS: b-complex-vitamin c Tablet 1 EACH PO (08:51)
--- NOTE | 2024-07-28 09:35 | PC.NURSE ---
to shellfish processing laborer via bed at this time for peripheral angiogram
--- NOTE | 2024-07-28 09:51 | W.PM.OPSUD ---
Surgery/Procedure H&P Update DATE OF PROCEDURE: July 28, 2024 DATE H&P PERFORMED: 07/26/24 H&P UPDATE INFORMATION: I have reviewed H&P completed within last 30 days, I have examined patient prior to procedure and No changes to prior documentation PREOP DIAGNOSIS: Critical limb ischemia with gangrenous foot PLANNED PROCEDURE: Operation Date: 07/26/24 10:00 Proposed Procedures p Peripheral Diagnostic - Peripheral angio bilateral(Bilateral) - Leigh Ann Lock MD PATIENT REASSESSED PRIOR TO SEDATION, WITH NO CHANGE NOTED: Yes PHYSICAL EXAM: alert, oriented x 3, clear to auscultation bilaterally and regular rate & rhythm AIRWAY EVAL/ANESTHESIA PLAN: ASA II, Risks, benefits & alternatives of sedation and/or procedure discussed and Patient agrees to continue as planned ADDITIONAL INFORMATION: Mallampati 2
--- NOTE | 2024-07-28 11:29 | P.PN_ITS ---
Subjective 2 Subjective: On today's visit dated 07/28/2024 patient was taken to the [facility]. Since patient was not stable on table in appear to be slightly confused after Benadryl Versed, anesthesia was called which sedated the patient. Please see anesthesia note. Peripheral angiogram was performed which showed severe peripheral vascular disease patient has proximal right SFA calcified high-grade subtotally occluded stenosis and evidence of distal segment into the popliteal vessel was tandemly blocked to the subtotal occlusion and later completely stop at popliteal vessel, which reconstitute towards tibioperoneal trunk through collaterals., with the help of Glidewire and seeker we were able to cross those lesions and parked our wire in the anterior tibial. Glidewire was exchanged with run-through over which using 5.0 x80mm lithotripsy balloon using multiple shockwaves starting from popliteal to ostial SFA of the right side. Excellent angiographic result with good flow noted from SFA all the way to anterior posterior tibial including perfusion on her heel. There was also noted to have right ostial iliac gradient however since there is a good inline flow and because of the fact patient does not walk much around we would treated medically. Patient was evaluated and cared for in conjunction with an advanced practice practitioner. I personally examined the patient and reviewed the chart and all pertinent data including imaging, telemetry, and laboratory results. I discussed the patient in detail with the advanced practice practitioner. Please see their note for complete H&P testing result and agreed upon plan of care for the patient. Patient had right foot pain given morphine GENERAL: Patient is alert, awake and oriented x3. HEART: Regular S1 and S2. No murmur, rub or gallop. LUNGS: Clear to auscultate bilaterally. CENTRAL NERVOUS SYSTEM: Grossly nonfocal. EXTREMITIES: Lower extremities with out edema bilaterally. 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 Patient has a history of end-stage renal disease on peritoneal dialysis normally daily. Today her creatinine has increased to 8.5. WBC is up to 16.86. She does have a recent UTI with culture positive for Enterobacter susceptible to Bactrim. Patient is having quite a bit of pain in her right heel. She has a strong foul odor to the wound. Morphine has been added for pain control per Dr. Lock. Her main complaint is pain in her right heel. No complaints from the left lower extremity. Patient has a history of right common femoral severe stenosis pretty much throughout the whole right leg through the infrapopliteal vessels on the right. No s/s of ischemia to bilateral lower extremities. Bilateral lower extremities with 2-second capillary refill and warm Medications: Reviewed: Yes Medication Review Details: Current Medications Acetaminophen (Acetaminophen 325 Mg Tablet) 650 mg PO Q6H PRN PRN Reason: Mild/Mod Pain Or Temp >/= 101 Amiodarone HCl (Amiodarone 200 Mg Tablet) 100 mg PO DAILY [facility] Last Admin: 07/27/24 09:24 Dose: 100 mg Aspirin (Aspirin 81 Mg Ec Tablet) 81 mg PO DAILY [facility] Atorvastatin Calcium (Atorvastatin 40 Mg Tablet) 40 mg PO QPM [facility] Last Admin: 07/27/24 17:52 Dose: 40 mg Doxazosin Mesylate (Doxazosin 1 Mg Tablet) 2 mg PO BEDTIME [facility] Last Admin: 07/27/24 21:09 Dose: 2 mg Furosemide (Furosemide 40 Mg Tablet) 80 mg PO BID [facility] Last Admin: 07/27/24 17:51 Dose: 80 mg Glucagon (Glucagon 1 Mg/Ml Kit 1 Ml) 1 mg IM ONCE PRN; Protocol PRN Reason: Adult Acute Hypoglycemia Nursing Prot. Heparin Sodium (Porcine) (Heparin 5,000 Unit/Ml Inj 1 Ml) 0 unit IVP PRN PRN; Protocol PRN Reason: Heparin Weight Based Protocol -Subsequent Bolus Hydromorphone HCl (Hydromorphone 1 Mg/Ml Inj 1 Ml) 1 mg IVP Q4H PRN PRN Reason: SEVERE PAIN Last Admin: 07/27/24 15:33 Dose: 1 mg Dextrose (D5w) 500 mls @ 0 mls/hr IV ONCE PRN; Protocol PRN Reason: Adult Acute Hypoglycemia Prot Dextrose (D10w) 125 mls @ 750 mls/hr IV PRN PRN; Protocol PRN Reason: Adult Acute Hypoglycemia Nursing Protocol Dextrose (D10w) 250 mls @ 1,000 mls/hr IV PRN PRN; Protocol PRN Reason: Adult Acute Hypoglycemia Nursing Protocol Heparin Sodium/Sodium Chloride (Heparin Drip) 25,000 unit in 500 mls @ 0 mls/hr IV CONT [facility]; Protocol Last Titration: 07/28/24 05:19 Dose: 20 unit/kg/hr, 32.58 mls/hr Insulin Glargine (Insulin Glargine 100 Units/1 Ml) 35 unit SUBCUT QAM [facility] Last Admin: 07/28/24 06:21 Dose: 35 unit Insulin Human Lispro (Insulin Lispro 100 Unit/1 Ml) 0 unit SUBCUT TIDWM [facility]; Protocol Last Admin: 07/27/24 17:52 Dose: 2 unit Levothyroxine Sodium (Levothyroxine 75 Mcg Tablet) 75 mcg PO QAM [facility] Last Admin: 07/28/24 04:44 Dose: 75 mcg Meropenem (Meropenem 500 Mg Sdv) 500 mg IVP Q24H [facility]; Protocol Last Admin: 07/27/24 16:18 Dose: 500 mg Mirtazapine (Mirtazapine 15 Mg Tablet) 15 mg PO DAILY [facility] Last Admin: 07/27/24 09:24 Dose: 15 mg Naloxone HCl (Naloxone 0.4 Mg/Ml Sdv) 0.4 mg IVP PRN PRN PRN Reason: RESPIRATORY RATE < 8/MIN Non-Formulary Medication (Coenzyme Q10 [Coq-10]) 100 mg PO BEDTIME [facility] Ondansetron HCl (Ondansetron 2 Mg/Ml Sdv 2 Ml) 4 mg IVP Q8H PRN PRN Reason: vomiting, or N/V if npo Pantoprazole Sodium (Pantoprazole 40 Mg Sdv) 40 mg IVP Q24H [facility] Last Admin: 07/27/24 16:17 Dose: 40 mg Peritoneal Dialysis Solution (Dianeal Low Ca W/1.5% Dex 2,000 Ml Bag) 2,000 ml INTRAPERIT QID [facility] Last Admin: 07/28/24 04:43 Dose: 2,000 ml Polyethylene Glycol (Polyethylene Glycol 3350 Pkt 17 Gm) 17 gm PO DAILY PRN PRN Reason: Constipation Vancomycin HCl (Vancomycin 1,000 Mg Sdv (Pharmacy Mix)) 0 mg XX PRN PRN PRN Reason: Pharmacy to Dose Vitals/I&O/Wt Last Vital Signs Temp 97.9 F 07/28/24 07:36 Pulse 81 07/28/24 07:36 Resp 20 H 07/28/24 07:36 BP 147/55 07/28/24 07:36 Pulse Ox 98 07/28/24 07:36 O2 Del Method Room Air 07/28/24 07:36 07/27/24 07/28/24 07/28/24 22:59 06:59 14:59 Intake Total 720 / 720 544.309 / 1264.309 Output Total 200 / 200 Balance 720 / 720 544.309 / 1264.309 -200 / -200 Weight last 48 hrs Weight 185 lb 6.4 oz Weight 179 lb 9 oz Weight 179 lb 9 oz Physical Exam 2 Const: COMMON NORMALS: alert OTHER: GENERAL: Patient is alert, awake and oriented x3. HEART: Regular S1 and S2. No murmur, rub or gallop. LUNGS: Clear to auscultate bilaterally. CENTRAL NERVOUS SYSTEM: Grossly nonfocal. EXTREMITIES: Lower extremities with out edema bilaterally. Right foot wrapped with nonhealing ulcer. No anterior posterior tibial pulse on the right side Resp: COMMON NORMALS: clear to auscultation bilaterally AUSCULTATION: clear to auscultation bilaterally Neuro: SENSORIUM/ORIENTATION: Yes alert Data 07/28/24 03:22 07/28/24 03:22 Micro: Microbiology 07/27/24 18:24 Gram Stain - Final Peritoneal Fluid Body Fluid Culture - Preliminary 07/27/24 15:02 Gram Stain - Final Other Source Wound Culture - Preliminary Gram Negative Rods 07/27/24 16:12 Blood Culture - Preliminary Blood SPECIMEN COLLECTED 07/27/24 16:10 Blood Culture - Preliminary Blood SPECIMEN COLLECTED A&P Assessment and plan (1) Critical lower limb ischemia: Status post shockwave lithotripsy treatment of proximal to distal SFA and popliteal artery on the lower right side. Good angiographic result with hoahaoism of inline flow all the way from iliacs to posterior tibial in the foot. Patient will be asked to do bedrest for 4 hours. Will resume after bedrest Eliquis, give aspirin 81 mg. Would avoid Plavix because of high bleeding risk. Will watch her post procedure overnight with possible discharge tomorrow (2) ESRD (end stage renal disease) on dialysis: As per nephrology. (3) Recurrent UTI: As per medicine (4) CHF (congestive heart failure): Well compensated continue current Qualifiers: Heart failure type: diastolic Heart failure chronicity: chronic Qualified Code(s): I50.32 - Chronic diastolic (congestive) heart failure Plan Plan is to take patient for peripheral intervention tomorrow patient getting peritoneal dialysis today initiate aspirin 81 mg daily Attestations 2 Medical Necessity Statement*: Patient will be continuing hospitalization postoperatively for at least 1 more midnight from a vascular perspective. Coding Level of Care Code Acute Code for [facility] Fwd Diagnoses Critical lower limb ischemia I70.229 ESRD (end stage renal disease) on dialysis N18.6; Z99.2 Recurrent UTI N39.0 Chronic diastolic congestive heart failure I50.32 Heart failure type: diastolic Heart failure chronicity: chronic
[2024-07-28] MEDS: glucagon 1 mg/mL KIT 1 mL IM (11:43)
[2024-07-28] MEDS: dextrose 10% 250 ML 1000 ML IV (11:44)
--- NOTE | 2024-07-28 11:49 | PC.NURSE ---
received from cardiac equipment operator/laborer/supervisor via bed at 1135.report received.pt received propofol during procedure...so pt very drowsy. sr/sb on monitor.left femoral arterial site was closed with angioseal in equipment operator/laborer/supervisor.drsg is dry nand intact.no hematoma noted.right and left dp pulses are dopplerable.pt very diaphoretic.blood sugar checked and it was 33.glucagon and d 10 given as ordered.recheck of blood sugar 112.pt awakened.instructed in activity restrictions s/p femoral artery procedure..and instructed to notify staff for any bleeding,pain,sob,numbness,or for any concerns at all.pt verb understandinf of instructions.bed alarm set to on.
[2024-07-28 12:09] LABS: Glucose Point of Care 33 mg/dL (70-110)
[2024-07-28 12:09] LABS: Glucose Point of Care 112 mg/dL (70-110)
[2024-07-28] MEDS: EPOETIN ALFA-EPBX 10,000 UNIT/ML SDV (ESRD) 10000 UNIT SUBCUT (12:24)
[2024-07-28 13:02] LABS: Glucose Point of Care 158 mg/dL (70-110)
--- NOTE | 2024-07-28 13:43 | P.PN_ITS ---
Subjective 2 Subjective: Patient was seen this morning, she denies any fevers, chills, no cough, no abdominal pain, no flank pain, Vitals/I&O/Wt Last Vital Signs Temp 96.9 F L 07/28/24 11:24 Pulse 60 07/28/24 11:24 Resp 16 07/28/24 11:24 BP 96/50 07/28/24 11:24 Pulse Ox 94 07/28/24 11:24 O2 Del Method Nasal Cannula 07/28/24 11:24 O2 Flow Rate 3 07/28/24 11:24 07/27/24 07/28/24 07/28/24 22:59 06:59 14:59 Intake Total 720 / 720 544.309 / 1264.309 360 / 360 Output Total 200 / 200 Balance 720 / 720 544.309 / 1264.309 160 / 160 Weight last 48 hrs Weight 84.096 kg Weight 81.448 kg Weight 81.448 kg Physical Exam 2 Const: COMMON NORMALS: no acute distress and patient oriented x3 Resp: COMMON NORMALS: normal respiratory effort, No retractions, No use of accessory muscles and clear to auscultation bilaterally AUSCULTATION: clear to auscultation bilaterally Cardio: COMMON NORMALS: regular rate, regular rhythm, S1 normal heart sound present and S2 normal heart sound present RATE: regular rate RHYTHM: r egular rhythm HEART SOUNDS: S1 normal heart sound present and S2 normal heart sound present GI: COMMON NORMALS: Normal to inspection, nondistended, normoactive bowel sounds present and non-tender Extremity: COMMON NORMALS: no pedal edema Neuro: COMMON NORMALS: patient oriented x3 Psych: COMMON NORMALS: mental status grossly normal Data 07/28/24 03:22 07/28/24 03:22 Micro: Microbiology 07/27/24 18:24 Gram Stain - Final Peritoneal Fluid Body Fluid Culture - Preliminary 07/27/24 15:02 Gram Stain - Final Other Source Wound Culture - Preliminary Gram Negative Rods 07/27/24 16:12 Blood Culture - Preliminary Blood SPECIMEN COLLECTED 07/27/24 16:10 Blood Culture - Preliminary Blood SPECIMEN COLLECTED A&P Assessment and plan (1) HTN (hypertension): Qualifiers: Hypertension type: essential hypertension Qualified Code(s): I10 - Essential (primary) hypertension (2) Critical lower limb ischemia: (3) Foot ulcer, right: (4) ESRD (end stage renal disease) on dialysis: (5) CHF (congestive heart failure): Qualifiers: Heart failure type: diastolic Heart failure chronicity: chronic Qualified Code(s): I50.32 - Chronic diastolic (congestive) heart failure (6) Diabetes: Qualifiers: Diabetes mellitus type: type 2 Diabetes mellitus senior care insulin use: with senior care use Diabetes mellitus complication status: with kidney complications Diabetes mellitus complication detail: with chronic kidney disease Chronic kidney disease stage: on chronic dialysis Qualified Code(s): E 11.22 - Type 2 diabetes mellitus with diabetic chronic kidney disease; N18.6 - End stage renal disease; Z79.4 - shelter (current) use of insulin; Z99.2 - Dependence on renal dialysis Plan Leukocytosis -Secondary to UTI -Could be from right heel ulcer, vascular and/or diabetic ulcer -CT right foot pending -No complaints of shortness of breath, or cough, chest x-ray # Blood cultures # Pro-Maikol 1.85, CRP 36.8 Critical limb ischemia CTA 06/2024 moira: No aortic aneurysm. No aortic dissection. Celiac trunk and mesenteric arteries: There is atherosclerotic plaque at the celiac trunk origin with focal severe stenosis. Atherosclerotic plaque at the superior mesenteric artery origin results in mild narrowing. Renal arteries: There is a main and accessory right renal artery. Calcified plaque in the proximal 8 mm of the right main renal artery results in stenosis. There is reconstitution of flow distally by collaterals. The accessory right renal artery is positioned anterior to the main right renal artery and is patent. Single main left renal artery bifurcates 3 mm distal to the origin. There is calcified plaque at the origin with severe stenosis to occlusion. Reconstitution of flow is seen distal to the origin. Right iliac arteries: There is atherosclerotic plaque in the right common iliac artery 2.6 cm distal to the bifurcation with severe stenosis. Atherosclerotic plaque throughout the right external iliac artery results in regions of mild stenosis. Right femoral/popliteal arteries: There is scattered atherosclerotic plaque with multiple regions of severe stenosis and occlusion in the right femoral and popliteal arteries. Right infrapopliteal arteries: Limited evaluation of the runoff vessels to the foot secondary to calcified atheromatous disease. Left iliac arteries: Atherosclerotic plaque in the left common iliac artery results in regions of mild to moderate stenosis. There is atherosclerotic plaque in the left external iliac artery with mild stenosis. Left femoral/popliteal arteries: There is atherosclerotic plaque in the femoral and popliteal arteries with multiple regions of moderate to severe stenosis. Left infrapopliteal arteries: Limited evaluation of the runoff vessels to the foot secondary to calcified atheromatous disease. ? Heparin drip ? Continue aspirin, statin ? Plans on peripheral angiogram today Right foot ulcer, over calcaneum # Vascular and/or diabetic ulcer ? Plan ? As above ?vancomycin Zosyn ? Follow blood cultures ? Follow tissue cultures ? Follow inflammatory markers ? CT of the right calcaneum ? Monitor clinical status ? Spoke to podiatry, will evaluate, recommended conservative intervention with outpatient follow-up Type 2 diabetes mellitus, continue home Lantus 35 units subcu a.m., low-dose sliding scale History of atrial fibrillation ? Currently Eliquis is on hold ? Heparin drip End-stage renal disease on peritoneal dialysis -We have the resources to do PD dialysis here as inpatient Full code ? Heparin drip for DVT prophylaxis Plan for today continue IV antibiotics, monitor clinically, peripheral angiogram today Attestations 2 Medical Necessity Statement*: Patient requires hospitalization for leukocytosis, critical limb ischemia, right foot ulcer overall calcaneum, UTI Diagnoses Essential hypertension I10 Hypertension type: essential hypertension Critical lower limb ischemia I70.229 Foot ulcer, right L97.519 ESRD (end stage renal disease) on dialysis N18.6; Z99.2 Chronic diastolic congestive heart failure I50.32 Heart failure type: diastolic Heart failure chronicity: chronic Type 2 diabetes mellitus with chronic kidney disease on chronic dialysis, with long-term current use of insulin E11.22; N18.6; Z79.4; Z99.2 Diabetes mellitus type: type 2 Diabetes mellitus senior care insulin use: with filler leaf cutter long use Diabetes mellitus complication status: with kidney complications Diabetes mellitus complication detail: with chronic kidney disease Chronic kidney disease stage: on chronic dialysis
--- NOTE | 2024-07-28 14:08 | PC.NURSE ---
pt due for peritoneal dialysis after peripheral angiogram.when rn went to trains dispatcher supervisor pd tubing...noted that cap to dialysis catheter was laying in bed. at bedside.he called [facility] to get a replacement catheter.he then left to go get some supplies at his house.i called [facility] and talked to mark muhammad.she stated that we could use the cruz tubing available at the hospital.dr price notified and dr cuevas notified of event.pt is on meropenum and vancomycin already for antibiotic coverage.when rn came back to room.. had come back to hospital...and had hooked dialysate up to pt.he had brought appropriate end caps and alcavous antimicrobial solution which he states he had cleaned dialysis catheter with.he stated that this is what he had done when cap had come off before.
--- NOTE | 2024-07-28 14:29 | PC.NURSE ---
pt's bp has been on lowish side since coming back from microbiology laboratory manager.dr diaz notified.he ordered a 500 cc ns bolus..then ivf's at 100 cc/hr x 5 hours.used fluids at bedside that had come back from microbiology laboratory manager.
--- NOTE | 2024-07-28 15:11 | CTR_ITS ---
PROCEDURE INFORMATION: Exam: CT Right Lower Extremity, Foot Exam date and time: 07/29/2024 5:50 AM Age: 84 years old Clinical indication: Other: Right heel infection; Prior surgery; Surgery date: 6+ months; Surgery type: RT ankle TECHNIQUE: Imaging protocol: CT of the right lower extremity without contrast was performed. Exam focused on the foot. Radiation optimization: All CT scans at this facility use at least one of these dose optimization techniques: automated exposure control; mA and/or kV adjustment per patient size (includes targeted exams where dose is matched to clinical indication); or iterative reconstruction. COMPARISON: CT angio abd aorta runof [id number] 07/08/2024 11:10 AM RADIATION DOSE METRICS: Total DLP (mGy-cm): 184.73 FINDINGS: Bones/joints: There are partially imaged postoperative changes involving the distal fibula and medial malleolus. No acute fracture is appreciated. No dislocation is noted. Bones are diffusely demineralized. There is erosive change involving the calcaneal tuberosity compatible with osteomyelitis. Soft tissues: There is ulceration superficial to the calcaneal tuberosity. There is regional edema within the subcutaneous tissues as well as skin thickening likely related to cellulitis. No loculated fluid collection is identified on this noncontrast exam. CT/CT foot RT wo con* [id number] IMPRESSION: 1. Ulceration with suspected regional cellulitis involving the plantar aspect of the hindfoot. 2. Osteomyelitis involving the calcaneal tuberosity.
--- NOTE | 2024-07-28 16:18 | PC.NURSE ---
bp improved since fluids started
[2024-07-28] MEDS: pantoprazole 40 mg SDV IVP (16:59)
[2024-07-28] MEDS: meropenem 500 mg SDV IVP (17:00)
[2024-07-28] MEDS: calcitriol 0.25 mcg Capsule PO (17:01)
[2024-07-28] MEDS: sevelamer 800 mg Tablet 1600 MG PO (17:01)
[2024-07-28] MEDS: atorvastatin 40 mg Tablet PO (17:02)
[2024-07-28 17:38] LABS: Glucose Point of Care 287 mg/dL (70-110)
[2024-07-28 20:22] LABS: Glucose Point of Care 240 mg/dL (70-110)
[2024-07-28] MEDS: mirtazapine 15 mg Tablet PO (20:39)
[2024-07-28] MEDS: doxazosin 1 mg Tablet 2 MG PO (22:26)
[2024-07-29] VITALS (7 sets, daily range): BP systolic 103–140; BP diastolic 45–73; PULSE 63–76; RESP 15–18; TEMP 36.6–37.1; O2SAT 92–100
[2024-07-29 04:01] LABS: Basophils # 0.1 10^3/uL (0.0-0.1); Basophils % 0.4 %; Eosinophils # 0.2 10^3/uL (0.0-0.8); Eosinophils % 1.2 %; Hematocrit 27.1 % (36-47); Lymphocytes # 1.6 10^3/uL (0.8-4.8); Lymphocytes % 9.2 %; Mean Corpuscular HGB Conc 31.4 g/dL (30-55); Mean Corpuscular Hemoglobin 31.8 pg (27-33); Mean Corpuscular Volume 101.5 fl (85-98); Monocytes # 0.8 10^3/uL (0.2-0.9); Monocytes % 4.9 %; Neutrophils # 14.03 10^3/uL (1.8-7.7); Neutrophils % 82.4 %; Nucleated Red Blood Cells % 0 %; Platelet Count 318 10^3/cmm (157-399); Red Blood Count 2.67 10^6/uL (3.85-5.65); Red Cell Distribution Width 14.1 % (12.1-15.1); White Blood Count 17.01 10^3/uL (3.29-11.43)
[2024-07-29 04:34] LABS: Alanine Aminotransferase 13 U/L (0-33); Albumin Level 2.6 g/dL (3.5-5.2); Alkaline Phosphatase 89 U/L (35-105); Anion Gap 20.3 (5-19); Aspartate Amino Transferase 13 U/L (0-32); Blood Urea Nitrogen 51 mg/dL (8-23); Calcium 7.9 mg/dL (8.5-10.5); Carbon Dioxide 22 mmol/L (22-29); Chloride 91 mmol/L (98-107); Creatinine Clr Calc Pharmacy 6.6882; Globulin 2.9 g/dL (1.3-4.6); Glucose 186 mg/dL (65-115); Magnesium 1.6 mg/dL (1.7-2.3); Osmolality Calculated 287 mOsm/kg (285-295); Phosphorus 5.9 mg/dL (2.5-4.5); Potassium 4.3 mmol/L (3.5-5.1); Sodium 129 mmol/L (136-145); Total Bilirubin 0.2 mg/dL (0.15-1.2); Total Protein 5.5 g/dL (6.6-8.7)
[2024-07-29] MEDS: Dianeal low Ca w/1.5% dex 2,000 mL Bag 2000 ML INTRAPERIT ×2 (05:36→07:54)
[2024-07-29] MEDS: levothyroxine 75 mcg Tablet 100 MCG PO (06:00)
[2024-07-29 06:25] LABS: Glucose Point of Care 150 mg/dL (70-110)
[2024-07-29] MEDS: sevelamer 800 mg Tablet 1600 MG PO ×2 (07:52→11:30)
[2024-07-29] MEDS: amiodarone 200 mg Tablet 100 MG PO (07:52)
[2024-07-29] MEDS: apixaban 5 mg Tablet 2.5 MG PO (07:52)
[2024-07-29] MEDS: b-complex-vitamin c Tablet 1 EACH PO (07:52)
[2024-07-29] MEDS: FUROsemide 40 mg Tablet 80 MG PO (07:53)
[2024-07-29] MEDS: aspirin 81 mg EC Tablet PO (07:54)
[2024-07-29] MEDS: acetaminophen 325 mg Tablet 650 MG PO (09:04)
--- NOTE | 2024-07-29 10:37 | P.PN_ITS ---
Subjective 2 Subjective: Patient was seen this morning, she is alert oriented x 3, following all commands, has no pain complaints, no fevers, chills, no cough. -I had a discussion with her about her C T scan findings CT/CT foot RT wo con* [id number] IMPRESSION: 1. Ulceration with suspected regional ce llulitis involving the plantar aspect of the hindfoot. 2. Osteomyelitis involving the calcaneal tuberosity. = I discussed the case with Dr. 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 antibiotics given the specifics of her clinical condition, she voiced understanding, all questions answered, would prefer p.o. antibiotics -We discussed her UTI, she has grown mul tidrug-resistant organism in the past she has had multiple drug allergies, in the past, I would prefer IV antibiotics until her cultures come back -Her white blood cell count has also sta yed elevated at 17,000 -Would recommend continued inpatient mon itoring for at least 24 hours however patient is adamant about going home, will discharge her on p.o. antibiotics, continue her Eliquis, her aspirin, statin, with a close follow-up with Dr. Garg as outpatient follow-up with infectious disease as outpatient, follow-up with cardiology as outpatient Vitals/I&O/Wt Last Vital Signs Temp 98.1 F 07/29/24 08:00 Pulse 72 07/29/24 08:00 Resp 15 07/29/24 08:00 BP 136/50 07/29/24 08:00 Pulse Ox 92 07/29/24 04:00 O2 Del Method Nasal Cannula 07/29/24 04:00 O2 Flow Rate 5 07/29/24 04:00 07/28/24 07/29/24 07/29/24 22:59 06:59 14:59 Intake Total 360 / 720 120 / 840 120 / 120 Output Total 200 / 400 Balance 360 / 520 -80 / 440 120 / 120 Weight last 48 hrs Weight 84.187 kg Weight 84.085 kg Weight 84.096 kg Physical Exam 2 Const: COMMON NORMALS: no acute distress and patient oriented x3 Resp: COMMON NORMALS: normal respiratory effort, No retractions, No use of accessory muscles and clear to auscultation bilaterally AUSCULTATION: clear to auscultation bilaterally Cardio: COMMON NORMALS: regular rate, regular rhythm, S1 normal heart sound present and S2 normal heart sound present RATE: regular rate RHYTHM: r egular rhythm HEART SOUNDS: S1 normal heart sound present and S2 normal heart sound present GI: COMMON NORMALS: Normal to inspection, nondistended, normoactive bowel sounds present and non-tender Extremity: COMMON NORMALS: no pedal edema Neuro: COMMON NORMALS: patient oriented x3 Psych: COMMON NORMALS: mental status grossly normal Skin: NARRATIVE SKIN EXAM: Right lower extremity, pink, fleshy, good DP PT pulses, good cap refill, no pain, calcaneus wrapped in bandage Lower extremity, pink, fleshy, good DP PT pulses, good cap refill, no pain Data 07/29/24 03:30 07/29/24 03:30 Micro: Microbiology 07/27/24 15:00 Urine Culture - Preliminary Urine,Voided Gram Negative Rods 07/27/24 16:12 Blood Culture - Preliminary Blood NEGATIVE TO DATE 07/27/24 16:10 Blood Culture - Preliminary Blood NEGATIVE TO DATE 07/27/24 18:24 Gram Stain - Final Peritoneal Fluid Body Fluid Culture - Preliminary 07/27/24 15:02 Gram Stain - Final Other Source Wound Culture - Preliminary Gram Negative Rods A&P Assessment and plan (1) HTN (hypertension): Qualifiers: Hypertension type: essential hypertension Qualified Code(s): I10 - Essential (primary) hypertension (2) Critical lower limb ischemia: (3) Foot ulcer, right: (4) ESRD (end stage renal disease) on dialysis: (5) CHF (congestive heart failure): Qualifiers: Heart failure type: diastolic Heart failure chronicity: chronic Qualified Code(s): I50.32 - Chronic diastolic (congestive) heart failure (6) Diabetes: Qualifiers: Diabetes mellitus type: type 2 Diabetes mellitus long term care administrator insulin use: with long term care administrator use Diabetes mellitus complication status: with kidney complications Diabetes mellitus complication detail: with chronic kidney disease Chronic kidney disease stage: on chronic dialysis Qualified Code(s): E 11.22 - Type 2 diabetes mellitus with diabetic chronic kidney disease; N18.6 - End stage renal disease; Z79.4 - residential (current) use of insulin; Z99.2 - Dependence on renal dialysis Plan Leukocytosis -Secondary to UTI -Could be from right heel ulcer, vascular and/or diabetic ulcer -CT right foot CT/CT foot RT wo con* [id number] IMPRESSION: 1. Ulceration with suspected regional cellulitis involving the plantar aspect of the hindfoot. 2. Osteomyelitis involving the calcaneal tuberosity. -No complaints of shortness of breath, or cough, chest x-ray # Blood cultures # Pro-Maikol 1.85, CRP 36.8 Critical limb ischemia CTA 06/2024 moira: No aortic aneurysm. No aortic dissection. Celiac trunk and mesenteric arteries: There is atherosclerotic plaque at the celiac trunk origin with focal severe stenosis. Atherosclerotic plaque at the superior mesenteric artery origin results in mild narrowing. Renal arteries: There is a main and accessory right renal artery. Calcified plaque in the proximal 8 mm of the right main renal artery results in stenosis. There is reconstitution of flow distally by collaterals. The accessory right renal artery is positioned anterior to the main right renal artery and is patent. Single main left renal artery bifurcates 3 mm distal to the origin. There is calcified plaque at the origin with severe stenosis to occlusion. Reconstitution of flow is seen distal to the origin. Right iliac arteries: There is atherosclerotic plaque in the right common iliac artery 2.6 cm distal to the bifurcation with severe stenosis. Atherosclerotic plaque throughout the right external iliac artery results in regions of mild stenosis. Right femoral/popliteal arteries: There is scattered atherosclerotic plaque with multiple regions of severe stenosis and occlusion in the right femoral and popliteal arteries. Right infrapopliteal arteries: Limited evaluation of the runoff vessels to the foot secondary to calcified atheromatous disease. Left iliac arteries: Atherosclerotic plaque in the left common iliac artery results in regions of mild to moderate stenosis. There is atherosclerotic plaque in the left external iliac artery with mild stenosis. Left femoral/popliteal arteries: There is atherosclerotic plaque in the femoral and popliteal arteries with multiple regions of moderate to severe stenosis. Left infrapopliteal arteries: Limited evaluation of the runoff vessels to the foot secondary to calcified atheromatous disease. Peripheral angiogram Peripheral angiogram was performed which showed severe peripheral vascular disease patient has proximal right SFA calcified high-grade subtotally occluded stenosis and evidence of distal segment into the popliteal vessel was tandemly blocked to the subtotal occlusion and later completely stop at popliteal vessel, which reconstitute towards tibioperoneal trunk through collaterals., with the help of Glidewire and seeker we were able to cross those lesions and parked our wire in the anterior tibial. Glidewire was exchanged with run-through over which using 5.0 x80mm lithotripsy balloon using multiple shockwaves starting from popliteal to ostial SFA of the right side. Excellent angiographic result with good flow noted from SFA all the way to anterior posterior tibial including perfusion on her heel. There was also noted to have right ostial iliac gradient however since there is a good inline flow and because of the fact patient does not walk much around we would treated medically ? Continue aspirin, statin, Eliquis Right foot ulcer, over calcaneum # Vascular and/or diabetic ulcer ? Plan ? As above ?vancomycin Zosyn ? Follow blood cultures ? Follow tissue cultures ? Follow inflammatory markers ? Monitor clinical status ? Spoke to podiatry, will evaluate, recommended conservative intervention with outpatient follow-up Type 2 diabetes mellitus, continue home Lantus 25 units subcu a.m., low-dose sliding scale History of atrial fibrillation ? Currently Eliquis End-stage renal disease on peritoneal dialysis -We have the resources to do PD dialysis here as inpatient Full code ? Eliquis for DVT prophylaxis Attestations 2 Medical Necessity Statement*: Patient will be discharged today Diagnoses Essential hypertension I10 Hypertension type: essential hypertension Critical lower limb ischemia I70.229 Foot ulcer, right L97.519 ESRD (end stage renal disease) on dialysis N18.6; Z99.2 Chronic diastolic congestive heart failure I50.32 Heart failure type: diastolic Heart failure chronicity: chronic Type 2 diabetes mellitus with chronic kidney disease on chronic dialysis, with long-term current use of insulin E11.22; N18.6; Z79.4; Z99.2 Diabetes mellitus type: type 2 Diabetes mellitus long term care administrator insulin use: with long term care administrator use Diabetes mellitus complication status: with kidney complications Diabetes mellitus complication detail: with chronic kidney disease Chronic kidney disease stage: on chronic dialysis
--- NOTE | 2024-07-29 11:27 | PC.PT ---
Physical therapy called regarding dispensing Prevalon boots to pt. Therapy department does not stock these. Upon entering room, pt reclined in bed with family at bedside. Noted pt has two Prevalon boots in room that she has been using regularly at home. Has no therapy needs at this time. Nursing notified of same.
[2024-07-29] MEDS: potassium chloride ER 20 mEq Tablet PO (11:30)
[2024-07-29 11:46] LABS: Glucose Point of Care 362 mg/dL (70-110)
[2024-07-29] MEDS: insulin lispro 100 unit/1 mL SUBCUT (13:07)
--- NOTE | 2024-07-29 13:41 | P.DS_ITS ---
<Statement entered by Lynn Cardozo MD - 07/29/24 16:17> I saw patient, examined, reviewed progress, vitals, lab data and DC medicines. Agree with Dischareg plan Follow up in card clinic Discharge Providers Date of Admission: 07/26/24 17:40 Date of Discharge: July 29, 2024 Attending Provider at Admission: Leigh Ann Lock MD Attending Provider at Discharge: Leigh Ann Lock MD Consults: Hospitalist Nephrology Primary Care Provider: Mann Garduno MD Diagnoses at Discharge Discharge Diagnosis (1) Critical lower limb ischemia: Details from hospital stay: Status post lithotripsy right lower extremity from popliteal to SFA. Patient has excellent 2+ monophasic PT and DP on the right. Continue Eliquis aspirin continue follow-up with wound care and podiatry as directed. Follow-up with us in 1 week. Status: Acute (2) Foot ulcer, right: Details from hospital stay: Status post lithotripsy right lower extremity from popliteal to SFA. Patient has excellent 2+ monophasic PT and DP on the right. Continue Eliquis aspirin continue follow-up with wound care and podiatry as directed. Follow-up with us in 1 week Status: Acute (3) HTN (hypertension): Details from hospital stay: Controlled. Continue current medications. Status: Acute Qualifiers: Hypertension type: essential hypertension Qualified Code(s): I10 - Essential (primary) hypertension (4) ESRD (end stage renal disease) on dialysis: Details from hospital stay: Patient had dialysis today. Patient will continue to do this from home as previously ordered. Status: Acute (5) CHF (congestive heart failure): Details from hospital stay: Well compensated. Continue current treatment regimen. Status: Acute Qualifiers: Heart failure type: diastolic Heart failure chronicity: chronic Qualified Code(s): I50.32 - Chronic diastolic (congestive) heart failure (6) Diabetes: Details from hospital stay: Continue current medications as previously prescribed by hospitalist. 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 Since sari chen was not stab le on table in jason ear to be slightly confused after Be nadryl Versed, ane sthesia was called which sedated the patient. Please see anesthesia not e. Peripheral ang iogram was perform ed which showed se hermila peripheral va scular disease pat ient has proximal right SFA calcifi ed high-grade subt otally occluded st enosis and evidenc e of distal segmen t into the poplite al vessel was tand emly blocked to th e subtotal occlusi on and later compl etely stop at popl iteal vessel, whic h reconstitute tow ards tibioperoneal trunk through col laterals., with th e help of Glidewir e and seeker we we re able to cross t hose lesions and p arked our wire in the anterior tibia l. Glidewire was exchanged with run -through over whic h using 5.0 x80mm lithotripsy balloo n using multiple s hockwaves starting from popliteal to ostial SFA of the right side. Exce llent angiographic result with good flow noted from SF A all the way to a nterior posterior tibial including p erfusion on her he el. There was als o noted to have ri ght ostial iliac g radient however si nce there is a goo d inline flow and because of the fac t patient does not walk much around we would treated m edically. Patient tolerated procedu re well with no co mplications. Her left groin stick s ite is clean dry i ntact well-approxi mated no signs or symptoms of hemato ma. Patient will be discharged on a ntibiotics per hos pitalist team and follow-up with wou nd care PCP and po diatry as directed . Follow-up with us in 1 week. Con tinue Eliquis and aspirin. Monitor for and report sig ns or symptoms of bleeding Discuss ed with patient no heavy lifting mor e than a gallon of milk as well as g oing up or down st eps for 3 days. N o driving for 3 da ys. Monitor for a nd report signs or symptoms of bleed ing. Monitor for a nd report s/s of i nfection such as f ever 101 or greate r, swelling, redne ss or pain to the groin. Physical Exam Narrative: General: No apparent distress, healthy appearing, well nourished HENMT: normoceophalic Neck: No carotid bruit bilaterally Muskuloskeletal: Patient in bed at this time, unable to walk much due to chronic heal ulcer Lymphatic: no lymphedema noted Respiratory: Normal respiratory effort, clear to auscultation bilaterally throughout all lung riddle, no use of accessory muscles Cardio: No JVD, regular rate, regular rhythm, S1 S2 normal, no murmurs, left lower extremity warm, 2 second capillary refill, right lower extremity 2+ PT and DP monophasic dopplered 2 second capillary refill warm. Patient states previously seen at wound care and had a wet-to-dry dressing done. Extremities: Right lower extremity with chronic ulcer on the heel currently patient's foot is wrapped with gauze Neuro: Alert and oriented x4, no focal motor deficits Psych: Affect normal, denies suicidal ideation, mental status grossly normal Skin: Chronic right heel ulcer, patient states has chronic ulcers on patient's buttocks, groin stick site w/o evidence of hematoma Discharge Data Studies Completed and Pending Completed Studies During Hospitalization Category Date Time Status CT foot RT wo con* [id number] Routine Cat Scan 07/28/24 15:11 Completed US kidney bilateral [US renal BI* [id number]] Routine Ultrasound 07/27/24 15:33 Completed Pending at discharge Category Date Time Status CARDING SUPERVISOR request for service Routine Exams 07/28/24 10:00 Taken Blood Culture Stat Lab 07/27/24 16:12 Results Body Fluid Culture & GS Routine Lab 07/27/24 18:24 Results Complete Blood Count w/Auto AM LABS Lab 07/30/24 04:00 Ordered Comprehensive Metabolic Panel AM LABS Lab 07/30/24 04:00 Ordered Magnesium AM LABS Lab 07/30/24 04:00 Ordered Occult Blood Stool [Immunochemical Fecal OCB] Routine Lab 07/27/24 15:20 Uncollected Phosphorus AM LABS Lab 07/30/24 04:00 Ordered Urine Culture Stat Lab 07/27/24 15:00 Results Vancomycin Trough Timed Lab 07/29/24 17:00 Ordered Wound Culture and Gram Stain Stat Lab 07/27/24 15:02 Results Radiology Impressions Renal Ultrasound 07/27/24 15:33 IMPRESSION: 1. Unremarkable kidneys and bladder. 2. Perihepatic ascites. Foot CT 07/28/24 15:11 IMPRESSION: 1. Ulceration with suspected regional cellulitis involving the plantar aspect of the hindfoot. 2. Osteomyelitis involving the calcaneal tuberosity. Laboratory Results WBC 17.01 10^3/uL (3.29-11.43) H 07/29/24 03:30 RBC 2.67 10^6/uL (3.85-5.65) L 07/29/24 03:30 Hgb 8.50 g/dL (11.27-16.99) L 07/29/24 03:30 Hct 27.1 % (36-47) L 07/29/24 03:30 MCV 101.5 fl (85-98) H 07/29/24 03:30 MCH 31.8 pg (27-33) 07/29/24 03:30 MCHC 31.4 g/dL (30-55) 07/29/24 03:30 RDW 14.1 % (12.1-15.1) 07/29/24 03:30 Plt Count 318 10^3/cmm (157-399) 07/29/24 03:30 MPV 9.0 fL (7.4-10.4) 07/29/24 03:30 Neut % (Auto) 82.4 % 07/29/24 03:30 Lymph % (Auto) 9.2 % 07/29/24 03:30 [place] % (Auto) 4.9 % 07/29/24 03:30 Eos % (Auto) 1.2 % 07/29/24 03:30 Baso % (Auto) 0.4 % 07/29/24 03:30 Neut # (Auto) 14.03 10^3/uL (1.8-7.7) H 07/29/24 03:30 Lymph # (Auto) 1.6 10^3/uL (0.8-4.8) 07/29/24 03:30 [place] # (Auto) 0.8 10^3/uL (0.2-0.9) 07/29/24 03:30 Eos # (Auto) 0.2 10^3/uL (0.0-0.8) 07/29/24 03:30 Baso # (Auto) 0.1 10^3/uL (0.0-0.1) 07/29/24 03:30 Nucleated RBC % (auto) 0 % 07/29/24 03:30 Nucleated RBCs # 0.0 /100WBC 07/29/24 03:30 ESR 39 mm/hr (0-15) H 07/27/24 15:13 PT 17.30 SECONDS (12.1-14.9) H 07/27/24 16:10 INR 1.37 (0.8-1.2) H 07/27/24 16:10 APTT 35.7 SECONDS (23.9-36.7) D 07/28/24 03:22 Sodium 129 mmol/L (136-145) L 07/29/24 03:30 Potassium 4.3 mmol/L (3.5-5.1) 07/29/24 03:30 Chloride 91 mmol/L (98-107) L 07/29/24 03:30 Carbon Dioxide 22 mmol/L (22-29) 07/29/24 03:30 Anion Gap 20.3 (5-19) H 07/29/24 03:30 BUN 51 mg/dL (8-23) H 07/29/24 03:30 Creatinine 6.3 mg/dL (0.5-0.9) H* 07/29/24 03:30 GFR Calculation Not Reportable 07/29/24 03:30 Glucose 186 mg/dL (65-115) H 07/29/24 03:30 POC Glucose 362 mg/dL (70-110) H 07/29/24 11:11 Estimat Average Glucose 154 07/27/24 15:13 Hemoglobin A1c 7.0 % (4.0-6.0) H 07/27/24 15:13 Calculated Osmolality 287 mOsm/kg (285-295) 07/29/24 03:30 Lactic Acid 2.1 mmol/L (0.5-2.2) 07/27/24 15:13 Lactic Acid (Sepsis) 1.3 mmol/L (0.5-2.2) 07/27/24 18:40 Uric Acid 7.6 mg/dL (2.4-5.7) H 07/27/24 09:01 Calcium 7.9 mg/dL (8.5-10.5) L 07/29/24 03:30 Phosphorus 5.9 mg/dL (2.5-4.5) H 07/29/24 03:30 Magnesium 1.6 mg/dL (1.7-2.3) L 07/29/24 03:30 Iron 98 ug/dL (37-145) 07/28/24 03:22 TIBC 100.86075 mcg/dl 07/28/24 03:22 % Saturation 97.0 % (20-50) H 07/28/24 03:22 Unsat Iron Binding < 3 ug/dL (112-347) L 07/28/24 03:22 Ferritin 2027 ng/mL (15-150) H 07/28/24 03:22 Total Bilirubin 0.2 mg/dL (0.15-1.2) 07/29/24 03:30 AST 13 U/L (0-32) 07/29/24 03:30 ALT 13 U/L (0-33) 07/29/24 03:30 Alkaline Phosphatase 89 U/L (35-105) 07/29/24 03:30 C-Reactive Protein 36.8 mg/L (0.0-4.9) H 07/27/24 15:13 NT-Pro-B Natriuret Pep 1855 pg/mL (0-450) H 07/27/24 09:01 Total Protein 5.5 g/dL (6.6-8.7) L 07/29/24 03:30 Albumin 2.6 g/dL (3.5-5.2) L 07/29/24 03:30 Globulin 2.9 g/dL (1.3-4.6) 07/29/24 03:30 25-OH Vitamin D Total 31 ng/mL (30-100) 07/28/24 03:22 Procalcitonin 1.85 ng/mL (0-0.5) H 07/27/24 15:13 TSH 30.26 uIU/mL (0.27-4.20) H 07/27/24 09:01 PTH Intact 216.5 pg/mL (15-65) H 07/28/24 03:22 Calcium (PTH Intact) 8.2 mg/dL (8.5-10.5) L 07/28/24 03:22 Random Cortisol 12.60 ug/dL (2.47-19.5) 07/27/24 09:01 Urine Color Yellow (Yellow) 07/27/24 15:00 Urine Appearance Cloudy (CLEAR) A 07/27/24 15:00 Urine pH 5.5 (5-7) 07/27/24 15:00 Ur Specific [place] 1.019 (1.005-1.030) 07/27/24 15:00 Urine Protein 1+ (Negative) A 07/27/24 15:00 Urine Glucose (UA) Negative (Normal) 07/27/24 15:00 Urine Ketones Negative (Negative) 07/27/24 15:00 Urine Blood Negative (Negative) 07/27/24 15:00 Urine Nitrate Negative (Negative) 07/27/24 15:00 Urine Bilirubin Negative (Negative) 07/27/24 15:00 Urine Urobilinogen 1.0 mg/dL (Negative) 07/27/24 15:00 Ur Leukocyte Esterase 3+ (Negative) A 07/27/24 15:00 Urine RBC 0-2 /hpf (0-2) 07/27/24 15:00 Urine WBC >100 /hpf (0-5) H 07/27/24 15:00 Ur Squamous Epith Cells 0-5 /hpf (0-5) 07/27/24 15:00 Amorphous Sediment Not Reportable 07/27/24 15:00 Urine Bacteria 4+ /hpf (NONE) H 07/27/24 15:00 Hyaline Casts 0-4 /lpf H 07/27/24 15:00 Ur Random Sodium 66 mmol/L 07/27/24 15:00 Peritoneal Color Colorless (Pale Yellow) 07/27/24 18:24 Peritoneal Appearance Clear (Clear) 07/27/24 18:24 Peritoneal WBC 110 /uL 07/27/24 18:24 Peritoneal RBC 0 10^3/uL 07/27/24 18:24 Periton Mononu # Auto 0.022 10^3/uL 07/27/24 18:24 Mononuclear WBCs % 20.000 % 07/27/24 18:24 Polynuclear WBCs % 80.000 % 07/27/24 18:24 Perit Polynuc WBCs # 0.088 10^3/uL 07/27/24 18:24 Peritoneal Diff Commnt Yes 07/27/24 18:24 Random Vancomycin 22.0 ug/mL (20.0-40.0) 07/28/24 17:04 Procedures Performed Left femoral stick, multiple shockwaves starting from popliteal to ostial SFA of the right side. Excellent angiographic result with good flow noted from SFA all the way to anterior posterior tibial including perfusion on her heel. There was also noted to have right ostial iliac gradient however since there is a good inline flow and because of the fact patient does not walk much around we would treated medically. Vitals Last Vital Signs Temp 98.4 F 07/29/24 11:52 Pulse 76 07/29/24 11:52 Resp 15 07/29/24 08:00 BP 107/45 07/29/24 11:52 Pulse Ox 93 07/29/24 08:00 O2 Del Method Room Air 07/29/24 08:00 O2 Flow Rate 5 07/29/24 04:00 Discharge Plan Discharge Patient Disposition: Home Condition: Stable Prescriptions: New aspirin 81 mg Tablet,Delayed Release (Dr/Ec) 81 mg PO DAILY 30 Days Qty: 30 0RF cefdinir 300 mg capsule 300 mg PO BID 14 Days Qty: 28 0RF linezolid [Zyvox] 600 mg tablet 600 mg PO BID 14 Days Qty: 28 0RF levothyroxine 100 mcg capsule 100 mcg PO DAILY 30 Days Qty: 30 0RF Continued spironolactone 25 mg tablet 12.5 mg PO DAILY Qty: 30 6RF hydrocodone-acetaminophen 5-325 mg tablet 1 tab PO Q8H PRN (Reason: pain) 30 Days Qty: 45 0RF amiodarone 100 mg tablet 100 mg PO DAILY Qty: 30 3RF mirtazapine 15 mg tablet 15 mg PO DAILY Qty: 30 3RF Rx Instructions: TAKE 1 TABLET BY MOUTH ONCE DAILY AT NIGHT NEEDED FOR INSOMNIA Eliquis 5 mg tablet See Rx Instructions .ROUTE .COMPLEX Qty: 90 3RF Dose Instruction: take 1/2 tablet BY MOUTH TWICE DAILY Rx Instructions: take 1/2 tablet BY MOUTH TWICE DAILY furosemide 40 mg tablet 80 mg PO BID Qty: 180 3RF coenzyme Q10 [CoQ-10] 100 mg Capsule 100 mg PO BEDTIME RenaPlex-D 800 mcg-12.5 mg -2,000 unit tablet 1 tab PO DAILY atorvastatin 40 mg tablet 40 mg PO QPM potassium chloride 20 mEq tablet extended release 10 meq PO BEDTIME polyethylene glycol 3350 [Miralax] 17 gram/dose Powder 17 g PO PRN PRN (Reason: Constipation) doxazosin 2 mg tablet 2 mg PO BEDTIME Rx Instructions: PER RENAL Changed insulin glargine [Lantus Solostar U-100 Insulin] 100 unit/mL (3 mL) insulin pen 25 unit SUBCUT QAM Qty: 15 0RF Discontinued amlodipine 2.5 mg tablet 2.5 mg PO DAILY Qty: 90 3RF sulfamethoxazole-trimethoprim [Bactrim DS] 800-160 mg tablet 1 tab PO BID Qty: 14 0RF levothyroxine 75 mcg tablet 75 mcg PO QAM Rx Instructions: 30 MINUTES BEFORE BREAKFAST WITH WATER ONLY No Action (DME) Contour Next Test Strips Strip See Rx Instructions .ROUTE .COMPLEX Qty: 300 6RF Dose Instruction: USE 1 STRIP TO CHECK GLUCOSE THREE TIMES DAILY Rx Instructions: USE 1 STRIP TO CHECK GLUCOSE THREE TIMES DAILY (DME) blood-glucose meter [OneTouch Ultra2 Meter] Misc See Rx Instructions .Route Qty: 1 0RF Rx Instructions: As directed (DME) lancets [OneTouch Delica Plus Lancet] 33 gauge misc See Rx Instructions .Route Qty: 100 12RF Rx Instructions: As directed (DME) pen needle, diabetic [BD Ultra-Fine Short Pen Needle] 31 gauge x 5/16 needle See Rx Instructions .ROUTE .COMPLEX Qty: 100 6RF Dose Instruction: USE TO INJECT INSULIN 2-3 TIMES A DAY Rx Instructions: USE TO INJECT INSULIN 2-3 TIMES A DAY (DME) OneTouch Ultra Test Strip See Rx Instructions .ROUTE .COMPLEX Qty: 200 3RF Dose Instruction: USE TO CHECK GLUCOSE THREE TIMES DAILY Rx Instructions: USE TO CHECK GLUCOSE THREE TIMES DAILY Discharge Orders: Discharge Order (Routine); Ordered 07/29/24 Ordered By: Mary Arreola Referrals: Maria L Toro MD [Hospitalist] - 1 week Justo Garg DPM [Physician] - 1 week Steph Beltran FNP [Nurse Practitioner] - 7-10 days (F/U with [facility] 7-10 days ) Discharge Diet: Advance as tolerated and Diabetic Patient Instructions: Opioid Safety Plan of Treatment: Plan is for this very pleasant 84-year-old female to be discharged home follow- up with podiatry and PCP as directed as well as wound care as previously directed will follow-up with us in 1 week continue Eliquis and aspirin. Monitor for signs or symptoms of bleeding. Continue home health. Discharge Attestations Time Spent in Discharge Care*: less than 30 min Status at Discharge: Cognitive status at discharge: cognitively intact , Behavioral status at discharge: cooperative , Quality Metrics Clinical Quality Measures [ No reported AMI, CVA or VTE this stay] Coding Level of Care Code Acute Code for Chg Fwd Diagnoses Critical lower limb ischemia I70.229 Foot ulcer, right L97.519 Essential hypertension I10 Hypertension type: essential hypertension ESRD (end stage renal disease) on dialysis N18.6; Z99.2 Chronic diastolic congestive heart failure I50.32 Heart failure type: diastolic Heart failure chronicity: chronic Type 2 diabetes mellitus with chronic kidney disease on chronic dialysis, with long-term current use of insulin E11.22; N18.6; Z79.4; Z99.2 Diabetes mellitus type: type 2 Diabetes mellitus usp insulin use: with usp use Diabetes mellitus complication status: with kidney complications Diabetes mellitus complication detail: with chronic kidney disease Chronic kidney disease stage: on chronic dialysis
--- NOTE | 2024-07-29 17:50 | PC.NURSE ---
Discharge Note Patient discharged to home via POV accompanied by daughter. Discharge instructions reviewed with patient and/or inbound call center representative. Mobile pharmacy medications and/or prescriptions provided. Belongings/home medications returned.
--- NOTE | 2024-07-29 18:27 | P.PN_ITS ---
Subjective 2 Subjective: no new complaints Medications: Reviewed: Yes Vitals/I&O/Wt Last Vital Signs Temp 98.7 F 07/29/24 16:00 Pulse 63 07/29/24 16:00 Resp 18 07/29/24 16:00 BP 124/60 07/29/24 16:00 Pulse Ox 96 07/29/24 16:00 O2 Del Method Room Air 07/29/24 08:00 O2 Flow Rate 5 07/29/24 04:00 07/29/24 07/29/24 07/29/24 06:59 14:59 22:59 Intake Total 120 / 840 120 / 120 Output Total 200 / 400 Balance -80 / 440 120 / 120 Weight last 48 hrs Weight 84.187 kg Weight 84.085 kg Weight 84.096 kg Physical Exam 2 Narrative: Comfortable in bed no apparent distress. Vital signs noted. HEENT normocephalic atraumatic. Neck is supple. Lungs are clear to auscultation. Heart is regular no rubs or gallops. Abdomen is soft positive bowel sounds nontender positive Tenckhoff catheter. Distended. Extremities no edema right foot is bandaged. Poor pulses.pictures of right foot heel ulcer with eschar reviewed The patient was seen and examined using audiovisual equipment with the aide of a nurse. Data 07/29/24 03:30 07/29/24 03:30 Micro: Microbiology 07/27/24 15:02 Gram Stain - Final Other Source Wound Culture - Preliminary Gram Negative Rods 07/27/24 18:24 Gram Stain - Final Peritoneal Fluid Body Fluid Culture - Preliminary 07/27/24 15:00 Urine Culture - Preliminary Urine,Voided Gram Negative Rods 07/27/24 16:12 Blood Culture - Preliminary Blood NEGATIVE TO DATE 07/27/24 16:10 Blood Culture - Preliminary Blood NEGATIVE TO DATE A&P Assessment and plan (1) ESRD (end stage renal disease) on dialysis: 84-year-old lady 1. Peripheral arterial disease. Angiogram today. 2. ESRD the patient is on peritoneal dialysis -cont 4 exchanges a day w/ low gluc , 2 liter fills 3. Hyponatremia check TSH- 30 needs increased dose of levothyroxine - i raised dose to 100 d- please confirm that she was taking levothyroxine at home 4. Hyperkalemia -improving with peritoneal dialysis. 5. Leukocytosis. Can be from heel. Also question of UTI. Urinalysis 5-10 RBCs 2+ leukocytes too numerous to count white cells 2+ blood. Urine culture from July 22/2024 revealed Enterobacter cloacae resistant to ceftriaxone and cefuroxime. on renal dose vanco and zosyn. please check vanco level daily 6. Hemoglobin -9.2 -high iron sat. ferritin 2026. NO IRON MAY NEED LIVER EVAL. OR RECEIVED LOTS OF IRON 7. Will check vitamin D PTH 216- PO CALCITRIOL and phosphorus binders. 8. History of paroxysmal A-fib currently in sinus rhythm on amiodarone. 9. patient was seen and examined using audiovisual equipment as a telehealth visit with the aid of a nurse. The patient consented to telehealth and to dialysis. Plan For angiogram. Peritoneal dialysis. Attestations 2 Medical Necessity Statement*: per yony Coding Level of Care Code Acute Code for Chg Fwd Diagnoses ESRD (end stage renal disease) on dialysis N18.6; Z99.2
== END 2024-07-29 17:54 | disposition home health service (06) | DRG 278 ==
LOC: CSU 17:46
PROVIDERS: Family Medicine; Internal Medicine; Internal Medicine Nephrology; Nurse Practitioner Family; Admitting Provider Internal Medicine Cardiovascular Disease; PCP Family Medicine; Visit Provider Internal Medicine Cardiovascular Disease
PROC: 04FK3ZZ Fragmentation of Right Femoral Artery, Percutaneous Approach (ICD-10-PCS; principal; 2024-07-28 09:30)
PROC: 04FK3ZZ Fragmentation of Right Femoral Artery, Percutaneous Approach (ICD-10-PCS; 2024-07-28 09:30)
DX: E11.51 Type 2 diabetes mellitus with diabetic peripheral angiopathy without gangrene (principal); N18.6 End stage renal disease; N39.0 Urinary tract infection, site not specified; I50.32 Chronic diastolic (congestive) heart failure; I13.2 Hypertensive heart and chronic kidney disease with heart failure and with stage 5 chronic kidney disease, or end stage renal disease; N17.9 Acute kidney failure, unspecified; E87.1 Hypo-osmolality and hyponatremia; I70.229 Atherosclerosis of native arteries of extremities with rest pain, unspecified extremity; I70.221 Atherosclerosis of native arteries of extremities with rest pain, right leg; E11.22 Type 2 diabetes mellitus with diabetic chronic kidney disease; I48.0 Paroxysmal atrial fibrillation; L89.610 Pressure ulcer of right heel, unstageable; B96.1 Klebsiella pneumoniae [K. pneumoniae] as the cause of diseases classified elsewhere; B96.5 Pseudomonas (aeruginosa) (mallei) (pseudomallei) as the cause of diseases classified elsewhere; B95.8 Unspecified staphylococcus as the cause of diseases classified elsewhere; D63.1 Anemia in chronic kidney disease; E87.5 Hyperkalemia; E78.5 Hyperlipidemia, unspecified; K21.9 Gastro-esophageal reflux disease without esophagitis; E03.9 Hypothyroidism, unspecified; Z99.2 Dependence on renal dialysis; Z79.4 Long term (current) use of insulin; Z79.01 Long term (current) use of anticoagulants; Z79.891 Long term (current) use of opiate analgesic; Z88.0 Allergy status to penicillin; Z87.440 Personal history of urinary (tract) infections; Z87.01 Personal history of pneumonia (recurrent); Z86.16 Personal history of COVID-19; Z98.1 Arthrodesis status
CPT/HCPCS: 36415; 36416; 73700; 75710; 76770; 80048; 80053; 80202; 80503; 81001; 82306; 82310; 82533; 82728; 82962; 83036; 83540; 83550; 83605; 83735; 83880; 83970; 84100; 84145; 84300; 84443; 84550; 85025; 85347; 85610; 85651; 85730; 86140; 87040; 87070; 87075; 87077; 87086; 87186; 87205; 89050; 94664; 96372; 96374; 96376; 99152; 99212; A9270; C1725; C1760; C1769; C1887; C1894; C9764; G0269; J1171; J1200; J1610; J1644; J1815; J2185; J2250; J2270; J2470; J3010; J3372; J7030; J7799; Q3014; Q5105; Q9967

== ENCOUNTER 2024-08-01 05:19 | Inpatient (IN) | payer MEDICARE, SELFPAY ==
[2024-08-01] VITALS (96 sets, daily range): BP systolic 86–146; BP diastolic 33–101; PULSE 60–91; RESP 8–27; TEMP 34.2–36.8; O2SAT 80–98; BMI 30.5
[2024-08-01 05:27] LABS: Glucose Point of Care 89 mg/dL (70-110)
--- NOTE | 2024-08-01 05:33 | PC.NURSE ---
5 warm blankets provided for pt.
[2024-08-01 05:35] LABS: Basophils # 0.1 10^3/uL (0.0-0.1); Basophils % 0.2 %; Eosinophils # 0.4 10^3/uL (0.0-0.8); Hematocrit 26.8 % (36-47); Lymphocytes # 3.3 10^3/uL (0.8-4.8); Lymphocytes % 14.5 %; Mean Corpuscular Hemoglobin 31.3 pg (27-33); Mean Corpuscular Volume 101.1 fl (85-98); Mean Platelet Volume 9.3 fL (7.4-10.4); Monocytes # 0.9 10^3/uL (0.2-0.9); Monocytes % 4.1 %; Neutrophils % 76.9 %; Nucleated Red Blood Cells % 0.1 %; Platelet Count 314 10^3/cmm (157-399); Red Blood Count 2.65 10^6/uL (3.85-5.65); Red Cell Distribution Width 14.2 % (12.1-15.1); White Blood Count 22.47 10^3/uL (3.29-11.43)
--- NOTE | 2024-08-01 05:38 | ED_ITS ---
Documented by User: Shayan Cartwright, DO 08/05/24 19:08 HPI - General Adult 2 General: Chief complaint: General Medical Stated complaint: Hypoglycemic Time Seen by Provider: 08/01/24 05:29 History of Present Illness: 84-year-old female with a history of warren betes. She had a recent hospital stay for peripheral revascularization. She presents after waking up not feeling well. She was found to be diaphoretic, with a blood sugar of 44 at home. She was given D10 en route. Current blood sugar is 89. She is feeling somewhat better although not back to baseline. Related Data Home Medications Medication Instructions Recorded Confirmed atorvastatin 40 mg tablet 40 mg PO QPM 11/27/23 08/01/24 coenzyme Q10 100 mg capsule 100 mg PO BEDTIME 11/27/23 08/01/24 (CoQ-10) potassium chloride 20 mEq 10 meq PO BEDTIME 11/27/23 08/01/24 tablet,extended release vit B,C-folic ac 800 mcg-zinc 12.5 1 tab PO DAILY 11/27/23 08/01/24 mg-selen-D3 2,000 unit-vit E tablet (RenaPlex-D) doxazosin 2 mg tablet 2 mg PO BEDTIME 01/27/24 08/01/24 polyethylene glycol 3350 17 17 g PO PRN PRN Constipation 01/27/24 08/01/24 gram/dose oral powder (Miralax) apixaban 5 mg tablet (Eliquis) 2.5 mg PO BID 08/01/24 08/01/24 mirtazapine 15 mg tablet 15 mg PO BEDTIME PRN insomnia 08/01/24 08/01/24 Previous Rx's Medication Instructions Recorded blood sugar diagnostic (Contour #300 ea 10/08/22 Next Test Strips) blood-glucose meter (OneTouch #1 ea 10/13/22 Ultra2 Meter) lancets 33 gauge (OneTouch Delica #100 ea 10/13/22 Plus Lancet) pen needle, diabetic 31 gauge x #100 ea 10/27/23 5/16 (BD Ultra-Fine Short Pen Needle) amiodarone 100 mg tablet 100 mg PO DAILY #30 tabs 05/09/24 spironolactone 25 mg tablet 12.5 mg (1/2 x 25 mg) PO DAILY #30 09/09/24 tabs blood sugar diagnostic (OneTouch #200 ea 06/27/24 Ultra Test strips) hydrocodone 5 mg-acetaminophen 325 1 tab PO Q8H PRN pain 30 days #45 07/21/24 mg tablet tabs furosemide 40 mg tablet 80 mg (2 x 40 mg) PO BID #180 tabs 07/28/24 aspirin 81 mg tablet,delayed 81 mg PO DAILY 30 days #30 tabs 07/29/24 release cefdinir 300 mg capsule 300 mg PO BID 14 days #28 caps 07/29/24 insulin glargine 100 unit/mL (3 25 unit (0.25 mL) SUBCUT QAM #15 mL 07/29/24 mL) subcutaneous pen (Lantus Solostar U-100 Insulin) levothyroxine 100 mcg capsule 100 mcg PO DAILY 30 days #30 caps 07/29/24 linezolid 600 mg tablet (Zyvox) 600 mg PO BID 14 days #28 tabs 07/29/24 levofloxacin 250 mg tablet 250 mg PO DAILY 5 days #5 tabs 07/31/24 Allergies Allergy/AdvReac Type Severity Reaction Status Date / Time Penicillins Allergy Unknown Rash,Unknow Verified 07/25/24 12:36 n PFSH ED 2 PFSH: Medical History Essential hypertension ESRD (end stage renal disease) on dialysis Sepsis Cystitis Decubitus ulcer, buttock Heel ulcer UTI (urinary tract infection) Leukocytosis Pubic ramus fracture Closed fracture of single pubic ramus of pelvis Pelvic fracture Acute respiratory failure with hypoxia Hypoxemia Atrial fibrillation PVC (premature ventricular contraction) Hypoglycemia associated with type 2 diabetes mellitus Pneumonia due to COVID-19 virus ESRD on peritoneal dialysis Atrial fibrillation Acute kidney injury superimposed on CKD Pneumonia Osteoarthritis (arthritis due to wear and tear of joints) Altered mental status Meningioma Anemia COVID-19 resolved Hypothyroidism GERD (gastroesophageal reflux disease) HTN (hypertension) CHF (congestive heart failure) CKD (chronic kidney disease) Diabetes Surgical History Peritoneal dialysis catheter in situ (06/26/21) History of ankle surgery S/P tonsillectomy Status post tubal ligation S/P cataract extraction S/P cervical spinal fusion Family History Mother Hypertension Grandmother Hypertension MATERNAL Other Cancer Diabetes Social History Smoking and tobacco/nicotine status: never used tobacco/nicotine Quit status (tobacco/nicotine): has quit using Year quit tobacco: 1977 [id number] Second hand smoke exposure: Yes Alcohol intake: never Substance/Drug Use: never Caregiver/support person: Yes Lives independently: Yes Household members: spouse and children Housing: House Marital status: Current occupational status: retired Pets and animals: Yes Do you think of yourself as: Straight/Heterosexual Current gender identity: Female Physical Exam 2 Const: GENERAL APPEARANCE: cooperative, ill appearing (Mildly) and frail appearing (Mild) HENMT: COMMON NORMALS: normocephalic, atraumatic and Normal external nose present HEAD & SCALP: normocephalic and atraumatic FACE & SINUS: normal facial exam and face symmetric NOSE: Normal external nose present Eye: COMMON NORMALS: Equal, round and reactive pupils present and EOMs intact bilaterally PUPIL: Yes Equal, round and reactive pupils present Neck/C-Spine: GENERAL: Yes trachea midline Chest: CHEST: Yes Symmetrical chest wall rise Resp: COMMON NORMALS: normal respiratory effort, No retractions, No use of accessory muscles and clear to auscultation bilaterally AUSCULTATION: clear to auscultation bilaterally Cardio: COMMON NORMALS: regular rate and regular rhythm RATE: regular rate RHYTHM: regular rhythm Extremity: COMMON NORMALS: no pedal edema Neuro: ANN COMA SCALE: document GCS findings [place] coma scale eye opening: Spontaneous [place] coma scale verbal response: Confused Ann coma scale motor response: Obey commands Ann coma scale total score: 14 S ENSORY EXAM: Yes extremities (intact) Psych: COMMON NORMALS: speech normal SPEECH: Yes normal speech Skin: COMMON NORMALS: no rashes or lesions noted GENERAL SKIN EXAM: no rashes or lesions noted Course 2 Vital Signs: Vital signs: Vital Signs Temperature 98.5 F 08/05/24 15:26 Pulse Rate 75 08/05/24 15:26 Respiratory Rate 17 08/05/24 15:26 Blood Pressure 137/53 08/05/24 15:26 Pulse Oximetry 90 08/05/24 15:26 Oxygen Delivery Me thod Room Air 08/05/24 15:26 MDM - General Adult Medical Decision Making 84-year-old female with hypoglycemia at home. Blood sugar was 44. Currently 89. Will recheck. White blood cell count is 22, hemoglobin is 8. Other laboratory is still pending. Lab Data 08/05/24 05:14 08/05/24 05:14 Radiology Impressions Abdomen/Pelvis CT 08/01/24 08:50 IMPRESSION: 1. Moderate amount of intraperitoneal free air. Source of the free air is not identified. Largest amount of free air seems to be at the GE junction and near the proximal stomach. Slight change in attenuation of the stomach mucosa. No definite source of perforation is identified. Correlate with recent manipulation of the peritoneal dialysis catheter. 2. No GI tract obstruction. 3. Extensive vascular calcifications including the mesenteric arteries. 4. Moderate cardiomegaly. 5. Bilateral renal atrophy. No free fluid. Notified Zachariah Brock DO at 08/01/2024 9:[address] Rosales at 08/01/2024 9:56 AM. Ankle X-Ray 08/01/24 11:26 IMPRESSION: Soft tissue gas noted dorsal to the calcaneus. There is slight undulation of posterior calcaneal cortex; please refer to recent CT report for additional details. C-Arm Fluoroscopy 08/02/24 08:26 IMPRESSION: Intraoperative imaging during dialysis catheter placement. Chest X-Ray 08/02/24 10:51 IMPRESSION: 1. Minimal right pleural effusion. 2. Diffuse bilateral linear interstitial pulmonary opacities. Possible acute infiltrates, mild edema or pulmonary scarring. 3. Borderline prominence of the cardiac silhouette. 4. Degenerative and postsurgical changes are demonstrated, as described above. Laboratory Results WBC 22.47 10^3/uL (3.29-11.43) H 08/01/24 05:00 RBC 2.65 10^6/uL (3.85-5.65) L 08/01/24 05:00 Hgb 8.30 g/dL (11.27-16.99) L 08/01/24 05:00 Hct 26.8 % (36-47) L 08/01/24 05:00 MCV 101.1 fl (85-98) H 08/01/24 05:00 MCH 31.3 pg (27-33) 08/01/24 05:00 MCHC 31.0 g/dL (30-55) 08/01/24 05:00 RDW 14.2 % (12.1-15.1) 08/01/24 05:00 Plt Count 314 10^3/cmm (157-399) 08/01/24 05:00 MPV 9.3 fL (7.4-10.4) 08/01/24 05:00 Neut % (Auto) 76.9 % 08/01/24 05:00 Lymph % (Auto) 14.5 % 08/01/24 05:00 Brantley % (Auto) 4.1 % 08/01/24 05:00 Eos % (Auto) 2.0 % 08/01/24 05:00 Baso % (Auto) 0.2 % 08/01/24 05:00 Neut # (Auto) 17.30 10^3/uL (1.8-7.7) H 08/01/24 05:00 Lymph # (Auto) 3.3 10^3/uL (0.8-4.8) 08/01/24 05:00 Brantley # (Auto) 0.9 10^3/uL (0.2-0.9) 08/01/24 05:00 Eos # (Auto) 0.4 10^3/uL (0.0-0.8) 08/01/24 05:00 Baso # (Auto) 0.1 10^3/uL (0.0-0.1) 08/01/24 05:00 Nucleated RBC % (auto) 0.1 % 08/01/24 05:00 Nucleated RBCs # 0.0 /100WBC 08/01/24 05:00 Sodium 135 mmol/L (136-145) L 08/01/24 05:00 Potassium 4.4 mmol/L (3.5-5.1) 08/01/24 05:00 Chloride 96 mmol/L (98-107) L 08/01/24 05:00 Carbon Dioxide 22 mmol/L (22-29) 08/01/24 05:00 Anion Gap 21.4 (5-19) H 08/01/24 05:00 BUN 52 mg/dL (8-23) H 08/01/24 05:00 Creatinine 7.1 mg/dL (0.5-0.9) H* 08/01/24 05:00 GFR Calculation Not Reportable 08/01/24 05:00 Glucose 31 mg/dL (65-115) L* 08/01/24 05:00 POC Glucose 88 mg/dL (70-110) 08/01/24 06:04 Calculated Osmolality 290 mOsm/kg (285-295) 08/01/24 05:00 Lactic Acid 1.7 mmol/L (0.5-2.2) 08/01/24 07:26 Calcium 7.9 mg/dL (8.5-10.5) L 08/01/24 05:00 Phosphorus 6.0 mg/dL (2.5-4.5) H 08/01/24 05:00 Magnesium 1.6 mg/dL (1.7-2.3) L 08/01/24 05:00 Total Bilirubin 0.2 mg/dL (0.15-1.2) 08/01/24 05:00 AST 21 U/L (0-32) 08/01/24 05:00 ALT 17 U/L (0-33) 08/01/24 05:00 Alkaline Phosphatase 88 U/L (35-105) 08/01/24 05:00 C-Reactive Protein 76.0 mg/L (0.0-4.9) H 08/01/24 05:00 Total Protein 5.3 g/dL (6.6-8.7) L 08/01/24 05:00 Albumin 2.4 g/dL (3.5-5.2) L 08/01/24 05:00 Globulin 2.9 g/dL (1.3-4.6) 08/01/24 05:00 Discharge Plan Discharge Patient Disposition: Admitted As Inpatient Admit Provider: Gabriele Rosales Clinical Impression: Sepsis, ESRD (end stage renal disease) on dialysis, Foot ulcer, right, SBP (spontaneous bacterial peritonitis), PD catheter dysfunction CHF (congestive heart failure) Qualifiers: Heart failure type: diastolic Heart failure chronicity: chronic Qualified Code(s): I50.32 - Chronic diastolic (congestive) heart failure Condition: Stable Sign Out Sign Out Data: Patient Sign Out occurred on 08/01/24 at 08:45. Patient's care was discussed, and care was transferred from Shayan Cartwright DO to Zachariah Brock DO. Coding Level of Care Code ED Advanced Clinical Specialist for Chg Fwd Documented by User: Zachariah Brock DO 08/01/24 10:32 HPI - General Adult 2 General: Chief complaint: General Medical Stated complaint: Hypoglycemic Time Seen by Provider: 08/01/24 05:29 Related Data Home Medications Medication Instructions Recorded Confirmed atorvastatin 40 mg tablet 40 mg PO QPM 11/27/23 08/01/24 coenzyme Q10 100 mg capsule 100 mg PO BEDTIME 11/27/23 08/01/24 (CoQ-10) potassium chloride 20 mEq 10 meq PO BEDTIME 11/27/23 08/01/24 tablet,extended release vit B,C-folic ac 800 mcg-zinc 12.5 1 tab PO DAILY 11/27/23 08/01/24 mg-selen-D3 2,000 unit-vit E tablet (RenaPlex-D) doxazosin 2 mg tablet 2 mg PO BEDTIME 01/27/24 08/01/24 polyethylene glycol 3350 17 17 g PO PRN PRN Constipation 01/27/24 08/01/24 gram/dose oral powder (Miralax) apixaban 5 mg tablet (Eliquis) 2.5 mg PO BID 08/01/24 08/01/24 mirtazapine 15 mg tablet 15 mg PO BEDTIME PRN insomnia 08/01/24 08/01/24 Previous Rx's Medication Instructions Recorded blood sugar diagnostic (Contour #300 ea 10/08/22 Next Test Strips) blood-glucose meter (OneTouch #1 ea 10/13/22 Ultra2 Meter) lancets 33 gauge (OneTouch Delica #100 ea 10/13/22 Plus Lancet) pen needle, diabetic 31 gauge x #100 ea 10/27/2302/03 (BD Ultra-Fine Short Pen Needle) amiodarone 100 mg tablet 100 mg PO DAILY #30 tabs 05/09/24 spironolactone 25 mg tablet 12.5 mg (1/2 x 25 mg) PO DAILY #30 05/30/24 tabs blood sugar diagnostic (OneTouch #200 ea 06/27/24 Ultra Test strips) hydrocodone 5 mg-acetaminophen 325 1 tab PO Q8H PRN pain 30 days #45 07/21/24 mg tablet tabs furosemide 40 mg tablet 80 mg (2 x 40 mg) PO BID #180 tabs 07/28/24 aspirin 81 mg tablet,delayed 81 mg PO DAILY 30 days #30 tabs 07/29/24 release cefdinir 300 mg capsule 300 mg PO BID 14 days #28 caps 07/29/24 insulin glargine 100 unit/mL (3 25 unit (0.25 mL) SUBCUT QAM #15 mL 07/29/24 mL) subcutaneous pen (Lantus Solostar U-100 Insulin) levothyroxine 100 mcg capsule 100 mcg PO DAILY 30 days #30 caps 07/29/24 linezolid 600 mg tablet (Zyvox) 600 mg PO BID 14 days #28 tabs 07/29/24 levofloxacin 250 mg tablet 250 mg PO DAILY 5 days #5 tabs 07/31/24 Allergies Allergy/AdvReac Type Severity Reaction Status Date / Time Penicillins Allergy Unknown Rash,Unknow Verified 07/25/24 12:36 n PFSH ED 2 PFSH: Medical History Essential hypertension ESRD (end stage renal disease) on dialysis Sepsis Cystitis Decubitus ulcer, buttock Heel ulcer UTI (urinary tract infection) Leukocytosis Pubic ramus fracture Closed fracture of single pubic ramus of pelvis Pelvic fracture Acute respiratory failure with hypoxia Hypoxemia Atrial fibrillation PVC (premature ventricular contraction) Hypoglycemia associated with type 2 diabetes mellitus Pneumonia due to COVID-19 virus ESRD on peritoneal dialysis Atrial fibrillation Acute kidney injury superimposed on CKD Pneumonia Osteoarthritis (arthritis due to wear and tear of joints) Altered mental status Meningioma Anemia COVID-19 resolved Hypothyroidism GERD (gastroesophageal reflux disease) HTN (hypertension) CHF (congestive heart failure) CKD (chronic kidney disease) Diabetes Surgical History Peritoneal dialysis catheter in situ (06/26/21) History of ankle surgery S/P tonsillectomy Status post tubal ligation S/P cataract extraction S/P cervical spinal fusion Family History Mother Hypertension Grandmother Hypertension MATERNAL Other Cancer Diabetes Social History Smoking and tobacco/nicotine status: never used tobacco/nicotine Quit status (tobacco/nicotine): has quit using Year quit tobacco: 1977 [id number] Second hand smoke exposure: Yes Alcohol intake: never Substance/Drug Use: never Caregiver/support person: Yes Lives independently: Yes Household members: spouse and children Housing: House Marital status: Current occupational status: retired Pets and animals: Yes Do you think of yourself as: Straight/Heterosexual Current gender identity: Female Physical Exam 2 Neuro: ANN COMA SCALE: document GCS findings Ann coma scale total score: 14 Course 2 Vital Signs: Vital signs: Vital Signs Temperature 98.5 F 08/05/24 15:26 Pulse Rate 75 08/05/24 15:26 Respiratory Rate 17 08/05/24 15:26 Blood Pressure 137/53 08/05/24 15:26 Pulse Oximetry 90 08/05/24 15:26 Oxygen Delivery Me thod Room Air 08/05/24 15:26 MDM - General Adult Medical Decision Making 84-year-old female with hypoglycemia at home. Blood sugar was 44. Currently 89. Will recheck. White blood cell count is 22, hemoglobin is 8. Other laboratory is still pending. Care assumed from Dr. Cartwright reexamined patient she has a very foul-smelling necrotic looking right heel ulcer some edematous no fluid except breast from the foot heel with palpation. 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 On further exam we found that the. PD cath is fractured at the level of the skin on the CT there is a significant amount of air in the abdomen. Discussed with Dr. Rosales given the leukocytosis and these findings. Podiatry was consulted as well as nephrology. Finally consulted general surgery she will likely have to have the PD catheter removed and consideration for hemodialysis possible debridement of the heel ulcer all of this is being coordinated by Dr. Kwok and Dr. Mendes. Patient will be admitted to the ICU she has been cultured trying to get a new PD fluid culture. She had 1 done earlier this month that grew out staph. Her I initially gave her a dose of ceftriaxone in the emergency room she was discharged home from the hospital on oral linezolid and cefdinir. Dr. Rosales is reviewing the chart and will make further antibiotic recommendations. Medical Records I reviewed the patient's medical records. Lab Data I reviewed the patient's lab results. 08/05/24 05:14 08/05/24 05:14 Radiology Impressions Abdomen/Pelvis CT 08/01/24 08:50 IMPRESSION: 1. Moderate amount of intraperitoneal free air. Source of the free air is not identified. Largest amount of free air seems to be at the GE junction and near the proximal stomach. Slight change in attenuation of the stomach mucosa. No definite source of perforation is identified. Correlate with recent manipulation of the peritoneal dialysis catheter. 2. No GI tract obstruction. 3. Extensive vascular calcifications including the mesenteric arteries. 4. Moderate cardiomegaly. 5. Bilateral renal atrophy. No free fluid. Notified Zachariah Brock DO at 08/01/2024 9:[address] Rosales at 08/01/2024 9:56 AM. Ankle X-Ray 08/01/24 11:26 IMPRESSION: Soft tissue gas noted dorsal to the calcaneus. There is slight undulation of posterior calcaneal cortex; please refer to recent CT report for additional details. C-Arm Fluoroscopy 08/02/24 08:26 IMPRESSION: Intraoperative imaging during dialysis catheter placement. Chest X-Ray 08/02/24 10:51 IMPRESSION: 1. Minimal right pleural effusion. 2. Diffuse bilateral linear interstitial pulmonary opacities. Possible acute infiltrates, mild edema or pulmonary scarring. 3. Borderline prominence of the cardiac silhouette. 4. Degenerative and postsurgical changes are demonstrated, as described above. Laboratory Results WBC 22.47 10^3/uL (3.29-11.43) H 08/01/24 05:00 RBC 2.65 10^6/uL (3.85-5.65) L 08/01/24 05:00 Hgb 8.30 g/dL (11.27-16.99) L 08/01/24 05:00 Hct 26.8 % (36-47) L 08/01/24 05:00 MCV 101.1 fl (85-98) H 08/01/24 05:00 MCH 31.3 pg (27-33) 08/01/24 05:00 MCHC 31.0 g/dL (30-55) 08/01/24 05:00 RDW 14.2 % (12.1-15.1) 08/01/24 05:00 Plt Count 314 10^3/cmm (157-399) 08/01/24 05:00 MPV 9.3 fL (7.4-10.4) 08/01/24 05:00 Neut % (Auto) 76.9 % 08/01/24 05:00 Lymph % (Auto) 14.5 % 08/01/24 05:00 Brantley % (Auto) 4.1 % 08/01/24 05:00 Eos % (Auto) 2.0 % 08/01/24 05:00 Baso % (Auto) 0.2 % 08/01/24 05:00 Neut # (Auto) 17.30 10^3/uL (1.8-7.7) H 08/01/24 05:00 Lymph # (Auto) 3.3 10^3/uL (0.8-4.8) 08/01/24 05:00 Br[place]ley # (Auto) 0.9 10^3/uL (0.2-0.9) 08/01/24 05:00 Eos # (Auto) 0.4 10^3/uL (0.0-0.8) 08/01/24 05:00 Baso # (Auto) 0.1 10^3/uL (0.0-0.1) 08/01/24 05:00 Nucleated RBC % (auto) 0.1 % 08/01/24 05:00 Nucleated RBCs # 0.0 /100WBC 08/01/24 05:00 Sodium 135 mmol/L (136-145) L 08/01/24 05:00 Potassium 4.4 mmol/L (3.5-5.1) 08/01/24 05:00 Chloride 96 mmol/L (98-107) L 08/01/24 05:00 Carbon Dioxide 22 mmol/L (22-29) 08/01/24 05:00 Anion Gap 21.4 (5-19) H 08/01/24 05:00 BUN 52 mg/dL (8-23) H 08/01/24 05:00 Creatinine 7.1 mg/dL (0.5-0.9) H* 08/01/24 05:00 GFR Calculation Not Reportable 08/01/24 05:00 Glucose 31 mg/dL (65-115) L* 08/01/24 05:00 POC Glucose 88 mg/dL (70-110) 08/01/24 06:04 Calculated Osmolality 290 mOsm/kg (285-295) 08/01/24 05:00 Lactic Acid 1.7 mmol/L (0.5-2.2) 08/01/24 07:26 Calcium 7.9 mg/dL (8.5-10.5) L 08/01/24 05:00 Phosphorus 6.0 mg/dL (2.5-4.5) H 08/01/24 05:00 Magnesium 1.6 mg/dL (1.7-2.3) L 08/01/24 05:00 Total Bilirubin 0.2 mg/dL (0.15-1.2) 08/01/24 05:00 AST 21 U/L (0-32) 08/01/24 05:00 ALT 17 U/L (0-33) 08/01/24 05:00 Alkaline Phosphatase 88 U/L (35-105) 08/01/24 05:00 C-Reactive Protein 76.0 mg/L (0.0-4.9) H 08/01/24 05:00 Total Protein 5.3 g/dL (6.6-8.7) L 08/01/24 05:00 Albumin 2.4 g/dL (3.5-5.2) L 08/01/24 05:00 Globulin 2.9 g/dL (1.3-4.6) 08/01/24 05:00 All radiology interpretation(s) finalized by discharge Discharge Plan Discharge Patient Disposition: Admitted As Inpatient Admit Provider: Gabriele Rosales Clinical Impression: Sepsis, ESRD (end stage renal disease) on dialysis, Foot ulcer, right, SBP (spontaneous bacterial peritonitis), PD catheter dysfunction CHF (congestive heart failure) Qualifiers: Heart failure type: diastolic Heart failure chronicity: chronic Qualified Code(s): I50.32 - Chronic diastolic (congestive) heart failure Condition: Stable Sign Out Sign Out Data: Patient Sign Out occurred on 08/01/24 at 08:45. Patient's care was discussed, and care was transferred from Shayan Cartwright DO to Zachariah Brock DO. Coding Level of Care Code ED Advanced Clinical Specialist for gage Grissom
--- NOTE | 2024-08-01 05:42 | ECG_ITS ---
[facility] Date: 2024-[facility]01 Pat Name: Luiza Cooper Department: Room: Gender: Female Cvor Nurse: : 1940 Requested By: Shayan Darnell Order Number: [id number] Casper MD: Liliane Almendarez M.D. Measurements Intervals [place] Rate: 70 P: 0 WA: 0 QRS: 69 QRSD: 94 T: 75 QT: 416 QTc: 451 Interpretive Statements sinus rhythm with frequent PVCs in the form of trigeminy LOW QRS VOLTAGE IN PRECORDIAL LEADS [QRS DEFLECTION < 1.0 mV IN CHEST LEADS] ABNORMAL RHYTHM ECG Compared to ECG 03/15/2024 08:11:58 Low QRS voltage now present Atrial fibrillation no longer present T-wave abnormality no longer present Electronically Signed On 08-04-2024 21:38:33 [employer] HELPER by Liliane Almendarez M.D. [email or web address]
[2024-08-01 05:57] LABS: Alanine Aminotransferase 17 U/L (0-33); Albumin Level 2.4 g/dL (3.5-5.2); Alkaline Phosphatase 88 U/L (35-105); Aspartate Amino Transferase 21 U/L (0-32); Blood Urea Nitrogen 52 mg/dL (8-23); Calcium 7.9 mg/dL (8.5-10.5); Carbon Dioxide 22 mmol/L (22-29); Chloride 96 mmol/L (98-107); Creatinine Clr Calc Pharmacy 5.6204; Globulin 2.9 g/dL (1.3-4.6); Magnesium 1.6 mg/dL (1.7-2.3); Osmolality Calculated 290 mOsm/kg (285-295); Sodium 135 mmol/L (136-145); Total Bilirubin 0.2 mg/dL (0.15-1.2); Total Protein 5.3 g/dL (6.6-8.7)
[2024-08-01 06:00] LABS: Anion Gap 21.4 (5-19); Potassium 4.4 mmol/L (3.5-5.1)
[2024-08-01 06:02] LABS: Glucose 31 mg/dL (65-115)
[2024-08-01 06:08] LABS: Glucose Point of Care 88 mg/dL (70-110)
[2024-08-01 07:53] LABS: Lactic Sepsis W/Reflex 1.7 mmol/L (0.5-2.2)
[2024-08-01] MEDS: cefTRIAXone 1,000 mg SDV 2000 MG IVP (07:53)
--- NOTE | 2024-08-01 07:54 | PC.NURSE ---
PATIENT DEPENDS CHANGED AND REPOSITIONED IN BED TO LEFT SIDE. PILLOWS ADDED FOR COMFORT.
--- NOTE | 2024-08-01 08:40 | PC.PHAR ---
Fco states pt just discharged from hospital. several changes made to med list. Amilodipine and Bactrim were stopped. Levothyroxine was increased from 75mcg to 100mcg, and Lantus was changed from 35 units to 25 units in am. [place] picked up yesterday 07/31/24.
--- NOTE | 2024-08-01 08:50 | XRR_ITS ---
PROCEDURE INFORMATION: Exam: XR Chest Exam date and time: 08/01/2024 9:08 AM Age: 84 years old Clinical indication: Dyspnea TECHNIQUE: Imaging protocol: Radiologic exam of the chest. Views: 1 view. COMPARISON: CR XR chest 1V portable [id number] 03/15/2024 8:51 AM FINDINGS: Lungs: Increased interstitial markings are noted in the lungs. Pleural spaces: Unremarkable. No pleural effusion. No pneumothorax. Heart/Mediastinum: Unremarkable. No cardiomegaly. Bones/joints: The bones are osteopenic. XR/XR chest 1V portable [id number] IMPRESSION: Findings compatible CHF and/or pneumonia.
--- NOTE | 2024-08-01 08:50 | CT_ITS ---
WS: [id number] CT ABDOMEN AND PELVIS NONCONTRAST HISTORY: Abdominal pain TECHNIQUE: Imaging performed through the abdomen and pelvis. Coronal and sagittal reformats are submi tted. All CT scans at [facility] use at least one of these dose optimization techniques: auto mated exposure control; mA and/or kV adjustment per patient size (includes targeted exams where dose is matched to clinical indication); or iterative reconstruction. DLP: 826.88 mGy.cm COMPARISON: 03/15/2024 and 07/08/2024 Lower thorax: Dependent changes and mild groundglass attenuation at the lung bases. No consolidation. Mild pleural thickening. Heart is moderately enlarged. Coronary artery calcifications. Moderate-size d hiatal hernia. Extraluminal air is noted near the GE junction. Liver: Liver is normal size. Free air is noted adjacent to the liver. Gallbladder: Vicarious excretion of contrast within the gallbladder. No adjacent inflammation. Pancreas: Moderate atrophy with no duct dilatation. Spleen: Normal. Adrenal glands: Normal. No mass. Right kidney: Atrophied kidney. No obstruction. Extensive renal artery calcifications. Left kidney: Atrophy with no obstruction. Renal artery calcifications. Aorta: Advanced atherosclerosis aorta. Heavy dense calcification throughout the mesenteric arteries. Moderate amount of free air within the peritoneum. No free fluid. GI tract: Stomach is moderately distended with fluid. No small bowel obstruction. Normal appendix. No colon obstruction. There is high density within the colon. No contrast was given for this examinatio n. May be from a prior exam. Abdominal wall: Peritoneal dialysis shunt catheter is present. Catheter enters the lower RIGHT abdomi nal wall. There is a small amount of air adjacent to the peritoneal dialysis catheter. This catheter has been present for several years. Pelvis: Extensive vascular calcifications. Uterus is atrophic. Bilateral cystic masses within each ov taj. High density within the urinary bladder is from a prior catheterization procedure most likely. Osseous structures: L4 grade 1 anterolisthesis by 10 mm. Bones are diffusely osteopenic. Remote pubic rami fracture. CT/CT abdomen pelvis wo con [id number] IMPRESSION: 1. Moderate amount of intraperitoneal free air. Source of the free air is not identified. Largest amount of free air seems to be at the GE junction and near the proximal stomach. Slight change in attenuation of the stomach mucosa. No de finite source of perforation is identified. Correlate with recent manipulation of the peritoneal dialysis catheter. 2. No GI tract obstruction. 3. Extensive vascular calcifications including the mesenteric arteries. 4. Moderate cardiomegaly. 5. Bilateral renal atrophy. No free fluid. Notified Zachariah Brock DO at 08/01/2024 9:[address] Rosales at 08/01/2024 9:56 AM.
--- NOTE | 2024-08-01 09:34 | P.HP_ITS ---
Providers/Chief Complaint 2 Admitting Physician: Gabriele Rosales MD, hospitalist Primary Care Provider: Mann Garduno MD Chief Complaint: Hypoglycemic History of Present Illness Luiza Cooper is a 84 year old female with history of end-stage renal disease on hemodialysis, peripheral vascular disease with recent intervention, recent concern for peritonitis, A-fib, CHF, UTI, multiple other medical problems presenting to the emergency department with low blood sugar, sweating. She was found to be hypoglycemic, with a blood sugar of 31 on her admitting lab work. This has been supplemented, and is improving. She was also hypothermic. She denies any nausea, vomiting, recorded fevers. She has had problems with her right heel. There is concern of osteomyelitis in this. It has increasing odor, noted today. No blood in stool, black tarry stool, abdominal pain. Still on linezolid, cefdinir which she was discharged home on 29 July. Levaquin was added on the . All of these were being used for Klebsiella. Urine, Pseudomonas in her wound, Staph hominis in her peritoneal fluid. She also has past history of MRSA and staph lugdunensis and peritoneal fluid, Enterobacter in urine. Review of Systems 2 General: Reports: 10 or more systems reviewed and unremarkable except in HPI and below Card: Denies: chest pain Resp: Denies: dyspnea GI: Denies: abdominal pain Medications/Allergies Home Medications Medication Instructions Recorded Confirmed Last Taken Type blood sugar diagnostic (Contour #300 ea 10/08/22 08/01/24 Unknown Rx Next Test Strips) blood-glucose meter (OneTouch #1 ea 10/13/22 08/01/24 Unknown Rx Ultra2 Meter) lancets 33 gauge (OneTouch Delica #100 ea 10/13/22 08/01/24 Unknown Rx Plus Lancet) pen needle, diabetic 31 gauge x #100 ea 10/27/23 08/01/24 Unknown Rx 5/16 (BD Ultra-Fine Short Pen Needle) atorvastatin 40 mg tablet 40 mg PO QPM 11/27/23 08/01/24 07/31/24 History coenzyme Q10 100 mg capsule 100 mg PO BEDTIME 11/27/23 08/01/24 07/31/24 History (CoQ-10) potassium chloride 20 mEq 10 meq PO BEDTIME 11/27/23 08/01/24 07/31/24 History tablet,extended release vit B,C-folic ac 800 mcg-zinc 12.5 1 tab PO DAILY 11/27/23 08/01/24 07/31/24 History mg-selen-D3 2,000 unit-vit E tablet (RenaPlex-D) doxazosin 2 mg tablet 2 mg PO BEDTIME 01/27/24 08/01/24 07/31/24 History polyethylene glycol 3350 17 17 g PO PRN PRN Constipation 01/27/24 08/01/24 04/15/24 History gram/dose oral powder (Miralax) amiodarone 100 mg tablet 100 mg PO DAILY #30 tabs 05/09/24 08/01/24 07/31/24 Rx spironolactone 25 mg tablet 12.5 mg (1/2 x 25 mg) PO DAILY #30 05/30/24 08/01/24 07/31/24 Rx tabs blood sugar diagnostic (OneTouch #200 ea 06/27/24 08/01/24 Unknown Rx Ultra Test strips) hydrocodone 5 mg-acetaminophen 325 1 tab PO Q8H PRN pain 30 days #45 07/21/24 08/01/24 Unknown Rx mg tablet tabs furosemide 40 mg tablet 80 mg (2 x 40 mg) PO BID #180 tabs 07/28/24 08/01/24 07/31/24 Rx aspirin 81 mg tablet,delayed 81 mg PO DAILY 30 days #30 tabs 07/29/24 08/01/24 07/31/24 Rx release cefdinir 300 mg capsule 300 mg PO BID 14 days #28 caps 07/29/24 08/01/24 07/31/24 Rx insulin glargine 100 unit/mL (3 25 unit (0.25 mL) SUBCUT QAM #15 mL 07/29/24 08/01/24 07/31/24 Rx mL) subcutaneous pen (Lantus Solostar U-100 Insulin) levothyroxine 100 mcg capsule 100 mcg PO DAILY 30 days #30 caps 07/29/24 08/01/24 07/31/24 Rx linezolid 600 mg tablet (Zyvox) 600 mg PO BID 14 days #28 tabs 07/29/24 08/01/24 07/31/24 Rx levofloxacin 250 mg tablet 250 mg PO DAILY 5 days #5 tabs 07/31/24 08/01/24 07/31/24 Rx apixaban 5 mg tablet (Eliquis) 2.5 mg PO BID 08/01/24 08/01/24 07/31/24 History mirtazapine 15 mg tablet 15 mg PO BEDTIME PRN insomnia 08/01/24 08/01/24 07/31/24 History Allergies Allergy/AdvReac Type Severity Reaction Status Date / Time Penicillins Allergy Unknown Rash,Unknow Verified 07/25/24 12:36 n PFSH Acute 2 PFSH: Medical History Essential hypertension ESRD (end stage renal disease) on dialysis Sepsis Cystitis Decubitus ulcer, buttock Heel ulcer UTI (urinary tract infection) Leukocytosis Pubic ramus fracture Closed fracture of single pubic ramus of pelvis Pelvic fracture Acute respiratory failure with hypoxia Hypoxemia Atrial fibrillation PVC (premature ventricular contraction) Hypoglycemia associated with type 2 diabetes mellitus Pneumonia due to COVID-19 virus ESRD on peritoneal dialysis Atrial fibrillation Acute kidney injury superimposed on CKD Pneumonia Osteoarthritis (arthritis due to wear and tear of joints) Altered mental status Meningioma Anemia COVID-19 resolved Hypothyroidism GERD (gastroesophageal reflux disease) HTN (hypertension) CHF (congestive heart failure) CKD (chronic kidney disease) Diabetes Surgical History Peritoneal dialysis catheter in situ (06/26/21) History of ankle surgery S/P tonsillectomy Status post tubal ligation S/P cataract extraction S/P cervical spinal fusion Family History Mother Hypertension Grandmother Hypertension MATERNAL Other Cancer Diabetes Social History Smoking and tobacco/nicotine status: never used tobacco/nicotine Quit status (tobacco/nicotine): has quit using Year quit tobacco: 1978 [id number] Second hand smoke exposure: Yes Alcohol intake: never Substance/Drug Use: never Caregiver/support person: Yes Lives independently: Yes Household members: spouse and children Housing: House Marital status: Current occupational status: retired Pets and animals: Yes Do you think of yourself as: Straight/Heterosexual Current gender identity: Female Vitals/I&O/Wt Last Vital Signs Temp 94.8 F L 08/01/24 07:53 Pulse 64 08/01/24 08:30 Resp 17 08/01/24 08:30 BP 109/55 08/01/24 08:30 Pulse Ox 95 08/01/24 08:30 O2 Del Method Room Air 08/01/24 08:30 Weight last 48 hrs Weight 75.75 kg Physical Exam 2 Narrative: General exam is a white female, hypothermic and under warming blanket with temperature increasing. Alert and oriented. HEENT atraumatic normocephalic. Neck is supple Cardiovascular regular rate and rhythm Lungs clear no wheezing or crackles Abdomen peritoneal dialysis catheter is noted. No tenderness. Positive bowel sounds exam is deferred Extremities no cyanosis clubbing. Cap refill good. Heel ulcer with black eschar noted right heel with odor. Skin no rash, see findings above Neuro no focal deficits Sepsis: Is patient septic: Yes Focused sepsis exam performed: Yes Date exam was performed: 08/01/24 Time exam was performed: 09:45 Data 08/01/24 05:00 08/01/24 05:00 Other Labs: Urinalysis is ordered Chest x-ray by my read demonstrates no focal infiltrate. Possibly some interstitial edema. Calcification of the aorta. Abdominal pelvis CT pending EKG by my read demonstrates sinus rhythm, multiple PVCs, normal axis. LFTs are normal Magnesium low at 1.6 Phosphorus 6, calcium 7.9, albumin 2.4 CRP 76 Urinalysis ordered Repeat blood sugar 88 Blood cultures collected Lactic acid is normal Micro: Microbiology 08/01/24 07:32 Blood Culture - Preliminary Blood SPECIMEN COLLECTED 08/01/24 07:26 Blood Culture - Preliminary Blood SPECIMEN COLLECTED A&P Assessment and plan (1) Sepsis: Patient presents with concern of sepsis. Site could be heel, peritonitis, UTI has not been excluded,, other abdominal pathology considering free air I am awaiting her urinalysis Her CT scan demonstrates free air, this may be secondary to compromised dialysis catheter Will obtain peritoneal fluid if able Obtain urinalysis if able Blood cultures already drawn Chest x-ray demonstrates no obvious pneumonia on my read Will place on broad-spectrum antibiotics consisting of vancomycin, meropenem. Meropenem is used secondary to penicillin allergy listed Note that she has had multiple resistant organisms in the past such as MRSA and Enterobacter Sepsis criteria met with borderline hypotension, hypothermia, leukocytosis, possible source, abnormal CT imaging, hypoglycemia She is not a candidate for a fluid bolus at this time secondary to end-stage renal disease patient, with some pulmonary edema on x-ray, with a compromised peritoneal dialysis catheter. We can easily fluid overload her and cause significant respiratory failure. (2) Foot ulcer, right: Podiatry consultation IV antibiotics consisting of vancomycin and meropenem Float heel Wound care per podiatry (3) Hypoglycemia associated with type 2 diabetes mellitus: Supplemented in the emergency department Continue IV fluids with glucose Frequent monitoring of Accu-Chek Hold long-acting insulin currently As blood sugar improves, take off glucose infusion, and initiate mild sliding scale insulin. (4) ESRD (end stage renal disease) on dialysis: Nephrology consultation Will have them evaluate the dialysis catheter along with surgery. She may need removal of the dialysis catheter, initiation of hemodialysis CBC, CMP daily (5) Hypomagnesemia: Supplement Plan Recent past history of peritonitis, UTI Deconditioning, severe weakness Peripheral vascular disease Attestations 2 Medical Necessity Statement*: Will need greater than 2 midnight stay for evaluation and treatment of sepsis, heel ulcer, compromised peritoneal dialysis catheter Diagnoses Sepsis A41.9 Foot ulcer, right L97.519 Hypoglycemia associated with type 2 diabetes mellitus E11.649 ESRD (end stage renal disease) on dialysis N18.6; Z99.2 Hypomagnesemia E83.42 Time Spent (min) 68
[2024-08-01 10:23] LABS: Glucose Point of Care 103 mg/dL (70-110)
[2024-08-01 10:44] LABS: Glucose Point of Care 93 mg/dL (70-110)
--- NOTE | 2024-08-01 10:51 | PHA.VACGOAL ---
Vancomycin Goal - Goal Vancomycin Goal:: 15-20 mg/L Vancomycin Indication:: Other - Therapy Current therapy:: Meropenem Day of therpy:: Day []of [] . Actual body weight (kg): 167 lb - Data Labs: WBC 22.47 10^3/uL (3.29-11.43) H 08/01/24 05:00 RBC 2.65 10^6/uL (3.85-5.65) L 08/01/24 05:00 Hgb 8.30 g/dL (11.27-16.99) L 08/01/24 05:00 Hct 26.8 % (36-47) L 08/01/24 05:00 MCV 101.1 fl (85-98) H 08/01/24 05:00 MCH 31.3 pg (27-33) 08/01/24 05:00 MCHC 31.0 g/dL (30-55) 08/01/24 05:00 RDW 14.2 % (12.1-15.1) 08/01/24 05:00 Sodium 135 mmol/L (136-145) L 08/01/24 05:00 Potassium 4.4 mmol/L (3.5-5.1) 08/01/24 05:00 Chloride 96 mmol/L (98-107) L 08/01/24 05:00 Carbon Dioxide 22 mmol/L (22-29) 08/01/24 05:00 Anion Gap 21.4 (5-19) H 08/01/24 05:00 BUN 52 mg/dL (8-23) H 08/01/24 05:00 Creatinine 7.1 mg/dL (0.5-0.9) H* 08/01/24 05:00 GFR Calculation Not Reportable 08/01/24 05:00 Treatment plan:: new consult Regimen:: 1000MG NOW FOLLOW UP WITH PULSE DOSING TROUGH NIKO 08/02 @ 0900
--- NOTE | 2024-08-01 10:58 | P.CONIM_ITS ---
Providers/Reason For Consult 2 Consulting Physician/Specialty*: bernardino cuevas md / telenephrology Reason for Consult*: ESRD care Requesting Physician: Dr Robles Rosales Attending Physician: Gabriele Rosales MD Primary Care Provider: Mann Garduno MD History of Present Illness History of Present Illness Luiza Cooper is a 84 year old female with history of end-stage renal disease on peritoneal dialysis, peripheral vascular disease with recent intervention, A-fib, CHF, hypothyroidism. The pt was admitted today for hypoglycemia, with a blood sugar of 31 and hypothermia.Pt is s/p recent Rt Lower ext angiogram. She also had a recent pseudomonas UTI and Stap hominis grew from PD catheter- after cap was removed whule at angiogram Her right heel has eschar, ischemia, odor. Still on linezolid, cefdinir which she was discharged home on 29 July. Levaquin was added on the . All of these were being used for Klebsiella. Urine, Pseudomonas in her wound, Staph hominis in her peritoneal fluid. She also has past history of MRSA and staph lugdunensis and peritoneal fluid, Enterobacter in urine. Review of Systems 2 Narrative: Heel pain nausea low sugars confusion on multiple antibiotics. Weakness no shortness of breath. Did dialysis yesterday. Medications/Allergies Home Medications Medication Instructions Recorded Confirmed Last Taken Type blood sugar diagnostic (Contour #300 ea 10/08/22 08/01/24 Unknown Rx Next Test Strips) blood-glucose meter (OneTouch #1 ea 10/13/22 08/01/24 Unknown Rx Ultra2 Meter) lancets 33 gauge (OneTouch Delica #100 ea 10/13/22 08/01/24 Unknown Rx Plus Lancet) pen needle, diabetic 31 gauge x #100 ea 10/27/23 08/01/24 Unknown Rx 5/16 (BD Ultra-Fine Short Pen Needle) atorvastatin 40 mg tablet 40 mg PO QPM 11/27/23 08/01/24 07/31/24 History coenzyme Q10 100 mg capsule 100 mg PO BEDTIME 11/27/23 08/01/24 07/31/24 History (CoQ-10) potassium chloride 20 mEq 10 meq PO BEDTIME 11/27/23 08/01/24 07/31/24 History tablet,extended release vit B,C-folic ac 800 mcg-zinc 12.5 1 tab PO DAILY 11/27/23 08/01/24 07/31/24 History mg-selen-D3 2,000 unit-vit E tablet (RenaPlex-D) doxazosin 2 mg tablet 2 mg PO BEDTIME 01/27/24 08/01/24 07/31/24 History polyethylene glycol 3350 17 17 g PO PRN PRN Constipation 01/27/24 08/01/24 04/15/24 History gram/dose oral powder (Miralax) amiodarone 100 mg tablet 100 mg PO DAILY #30 tabs 05/09/24 08/01/24 07/31/24 Rx spironolactone 25 mg tablet 12.5 mg (1/2 x 25 mg) PO DAILY #30 05/30/24 08/01/24 07/31/24 Rx tabs blood sugar diagnostic (OneTouch #200 ea 06/27/24 08/01/24 Unknown Rx Ultra Test strips) hydrocodone 5 mg-acetaminophen 325 1 tab PO Q8H PRN pain 30 days #45 07/21/24 08/01/24 Unknown Rx mg tablet tabs furosemide 40 mg tablet 80 mg (2 x 40 mg) PO BID #180 tabs 07/28/24 08/01/24 07/31/24 Rx aspirin 81 mg tablet,delayed 81 mg PO DAILY 30 days #30 tabs 07/29/24 08/01/24 07/31/24 Rx release cefdinir 300 mg capsule 300 mg PO BID 14 days #28 caps 07/29/24 08/01/24 07/31/24 Rx insulin glargine 100 unit/mL (3 25 unit (0.25 mL) SUBCUT QAM #15 mL 07/29/24 08/01/24 07/31/24 Rx mL) subcutaneous pen (Lantus Solostar U-100 Insulin) levothyroxine 100 mcg capsule 100 mcg PO DAILY 30 days #30 caps 07/29/24 08/01/24 07/31/24 Rx linezolid 600 mg tablet (Zyvox) 600 mg PO BID 14 days #28 tabs 07/29/24 08/01/24 07/31/24 Rx levofloxacin 250 mg tablet 250 mg PO DAILY 5 days #5 tabs 07/31/24 08/01/24 07/31/24 Rx apixaban 5 mg tablet (Eliquis) 2.5 mg PO BID 08/01/24 08/01/24 07/31/24 History mirtazapine 15 mg tablet 15 mg PO BEDTIME PRN insomnia 08/01/24 08/01/24 07/31/24 History Allergies Allergy/AdvReac Type Severity Reaction Status Date / Time Penicillins Allergy Unknown Rash,Unknow Verified 07/25/24 12:36 n PFSH Acute 2 PFSH: Medical History Essential hypertension ESRD (end stage renal disease) on dialysis Sepsis Cystitis Decubitus ulcer, buttock Heel ulcer UTI (urinary tract infection) Leukocytosis Pubic ramus fracture Closed fracture of single pubic ramus of pelvis Pelvic fracture Acute respiratory failure with hypoxia Hypoxemia Atrial fibrillation PVC (premature ventricular contraction) Hypoglycemia associated with type 2 diabetes mellitus Pneumonia due to COVID-19 virus ESRD on peritoneal dialysis Atrial fibrillation Acute kidney injury superimposed on CKD Pneumonia Osteoarthritis (arthritis due to wear and tear of joints) Altered mental status Meningioma Anemia COVID-19 resolved Hypothyroidism GERD (gastroesophageal reflux disease) HTN (hypertension) CHF (congestive heart failure) CKD (chronic kidney disease) Diabetes Surgical History Peritoneal dialysis catheter in situ (06/26/21) History of ankle surgery S/P tonsillectomy Status post tubal ligation S/P cataract extraction S/P cervical spinal fusion Family History Mother Hypertension Grandmother Hypertension MATERNAL Other Cancer Diabetes Social History Smoking and tobacco/nicotine status: never used tobacco/nicotine Quit status (tobacco/nicotine): has quit using Year quit tobacco: 1977 [id number] Second hand smoke exposure: Yes Alcohol intake: never Substance/Drug Use: never Caregiver/support person: Yes Lives independently: Yes Household members: spouse and children Housing: House Marital status: Current occupational status: retired Pets and animals: Yes Do you think of yourself as: Straight/Heterosexual Current gender identity: Female Vitals/I&O/Wt Last Vital Signs Temp 94.8 F L 08/01/24 07:53 Pulse 69 08/01/24 10:29 Resp 17 08/01/24 08:30 BP 101/49 08/01/24 10:29 Pulse Ox 96 08/01/24 10:29 O2 Del Method Room Air 08/01/24 08:30 Weight last 48 hrs Weight 75.75 kg Physical Exam 2 Narrative: Comfortable in bed no apparent distress. Vital signs noted. Blood pressure on low side HEENT normocephalic atraumatic Neck is supple. Lungs are clear to auscultation. Heart is regular Abdomen is soft positive bowel sounds. Nontender nondistended Patient has a peritoneal dialysis catheter. Per Dr. Rosales there appears to be a hole in the catheter. Extremities have no edema, right heel ischemic ulcer. Neuro awake alert oriented times 2+ moves all extremities. Data 08/01/24 05:00 08/01/24 05:00 Micro: Microbiology 08/01/24 07:32 Blood Culture - Preliminary Blood SPECIMEN COLLECTED 08/01/24 07:26 Blood Culture - Preliminary Blood SPECIMEN COLLECTED Other data: Cultures July 27 micro from peritoneal fluid is Staphylococcus hominis July 27-Pseudomonas I think this is also from her PD fluid however I am not certain may be in urine July 27 urine Klebsiella July 25 urine Enterobacter TAE AKA A&P Assessment and plan (1) ESRD (end stage renal disease) on dialysis: 4-year-old lady 1. Heel ulcer antibiotics as per medicine. Question if needs amputation discussed with vascular and podiatry. 2. ID patient is grown multiple different bacteria such as Enterobacter cloacae and Klebsiella UTI appears like her peritoneal dialysis fluid had Pseudomonas and Staphylococcus hominis. Patient was on multiple antibiotics at this time the patient will get meropenem and vancomycin which I feel will be appropriate. Will send off another peritoneal dialysis cell count and culture. Patient currently has no tenderness on exam. We will have surgery evaluate her PD catheter. CRP of 76 consistent with infection. Albumin of 2.4 consistent with infection Please note that on July 27 when she did this out of her PD catheter she only had 110 white cells this is not consistent with the peritonitis. 3. Hypotension likely from volume depletion question of sepsis and hypothyroidism. Denies of any blood pressure pills noted 4. Hyperthermia. 5. Free air under CT scan is normal with a peritoneal dialysis patient I do not think she is having an acute abdomen or needs any emergency surgery for that. 6. Leukocytosis likely from multiple infections. 7. Anemia continue Epogen. Please note recent iron saturation of 97% and ferritin of 1999 please do not give any iron. 8. Hyponatremia improving. 9. Hypoglycemia is the reason she is here please adjust her insulin orders. She is also using more dialysis here than at home which can be affecting her glucose management. 10. Replace magnesium 11. Phosphorus binder PTH to 16 is acceptable. Case discussed in detail with the patient and her nurse and with Dr. Dumont and her medical team. The patient was seen examined using audiovisual equipment with the aid of a nurse. Time spent seeing patient 1 hour Plan see above Consult Attestations 2 Medical Necessity Statement: see above Time Spent in Patient Care: Greater than 35 minutes (>than 50% of time spent in counselling and/or direct pt care on unit) . Coding Level of Care Code Acute Code for Chg Fwd Diagnoses ESRD (end stage renal disease) on dialysis N18.6; Z99.2
--- NOTE | 2024-08-01 11:05 | P.CONIM_ITS ---
Providers/Reason For Consult 2 Consulting Physician/Specialty*: Dr. Justo Garg, D.P.M./podiatry Reason for Consult*: Right heel decubitus ulcer Attending Physician: Gabriele Rosales MD Primary Care Provider: Mann Garduno MD History of Present Illness History of Present Illness Luiza Cooper is a 84 year old female who presented to the emergency department this morning 08/01/2024 with low blood sugar, sweating. She was found to be hypoglycemic with a blood sugar of 31 mg/dL. Patient is status post revascularization of right lower extremity DOS: 07/28/2024. During hospital admission last week, right lower extremity heel decubitus wound was noted to be stable eschar with no active drainage no underlying fluid. Patient was discharged. However, on presentation to the emergency department today. Patient states increasingly more painful right posterior heel. Malodor has worsened. Workup in the emergency department revealed compromised peritoneal dialysis catheter with moderate amount of intraperitoneal free air. Podiatry was consulted to evaluate right heel wound and provide recommendations. Review of Systems 2 General: Reports: 10 or more systems reviewed and unremarkable except in HPI and below Const: Denies: fever(s), chills, body aches or change in appetite Eyes: Denies: change in vision or blurry vision Card: Denies: chest pain, palpitations or irregular heart rhythm Resp: Denies: dyspnea GI: Denies: abdominal pain, nausea, vomiting or diarrhea Musc: Reports: joint stiffness Skin/Breast: Reports: non-healing lesions and lesions Neuro: Reports: numbness in extremities Medications/Allergies Home Medications Medication Instructions Recorded Confirmed Last Taken Type blood sugar diagnostic (Contour #300 ea 10/08/22 08/01/24 Unknown Rx Next Test Strips) blood-glucose meter (OneTouch #1 ea 10/13/22 08/01/24 Unknown Rx Ultra2 Meter) lancets 33 gauge (OneTouch Delica #100 ea 10/13/22 08/01/24 Unknown Rx Plus Lancet) pen needle, diabetic 31 gauge x #100 ea 10/27/23 08/01/24 Unknown Rx 5/16 (BD Ultra-Fine Short Pen Needle) atorvastatin 40 mg tablet 40 mg PO QPM 11/27/23 08/01/24 07/31/24 History coenzyme Q10 100 mg capsule 100 mg PO BEDTIME 11/27/23 08/01/2407/31/24 History (CoQ-10) potassium chloride 20 mEq 10 meq PO BEDTIME 11/27/23 08/01/24 07/31/24 History tablet,extended release vit B,C-folic ac 800 mcg-zinc 12.5 1 tab PO DAILY 11/27/23 08/01/24 07/31/24 History mg-selen-D3 2,000 unit-vit E tablet (RenaPlex-D) doxazosin 2 mg tablet 2 mg PO BEDTIME 01/27/24 08/01/24 07/31/24 History polyethylene glycol 3350 17 17 g PO PRN PRN Constipation 01/27/24 08/01/24 04/15/24 History gram/dose oral powder (Miralax) amiodarone 100 mg tablet 100 mg PO DAILY #30 tabs 05/09/24 08/01/24 07/31/24 Rx spironolactone 25 mg tablet 12.5 mg (1/2 x 25 mg) PO DAILY #30 05/30/24 08/01/24 07/31/24 Rx tabs blood sugar diagnostic (OneTouch #200 ea 06/27/24 08/01/24 Unknown Rx Ultra Test strips) hydrocodone 5 mg-acetaminophen 325 1 tab PO Q8H PRN pain 30 days #45 07/21/24 08/01/24 Unknown Rx mg tablet tabs furosemide 40 mg tablet 80 mg (2 x 40 mg) PO BID #180 tabs 07/28/24 08/01/24 07/31/24 Rx aspirin 81 mg tablet,delayed 81 mg PO DAILY 30 days #30 tabs 07/29/24 08/01/24 07/31/24 Rx release cefdinir 300 mg capsule 300 mg PO BID 14 days #28 caps 07/29/24 08/01/24 07/31/24 Rx insulin glargine 100 unit/mL (3 25 unit (0.25 mL) SUBCUT QAM #15 mL 07/29/24 08/01/24 07/31/24 Rx mL) subcutaneous pen (Lantus Solostar U-100 Insulin) levothyroxine 100 mcg capsule 100 mcg PO DAILY 30 days #30 caps 07/29/24 08/01/24 07/31/24 Rx linezolid 600 mg tablet (Zyvox) 600 mg PO BID 14 days #28 tabs 07/29/24 08/01/24 07/31/24 Rx levofloxacin 250 mg tablet 250 mg PO DAILY 5 days #5 tabs 07/31/24 08/01/24 07/31/24 Rx apixaban 5 mg tablet (Eliquis) 2.5 mg PO BID 08/01/24 08/01/24 07/31/24 History mirtazapine 15 mg tablet 15 mg PO BEDTIME PRN insomnia 08/01/24 08/01/24 07/31/24 History Allergies Allergy/AdvReac Type Severity Reaction Status Date / Time Penicillins Allergy Unknown Rash,Unknow Verified 07/25/24 12:36 n PFSH Acute 2 PFSH: Medical History Essential hypertension ESRD (end stage renal disease) on dialysis Sepsis Cystitis Decubitus ulcer, buttock Heel ulcer UTI (urinary tract infection) Leukocytosis Pubic ramus fracture Closed fracture of single pubic ramus of pelvis Pelvic fracture Acute respiratory failure with hypoxia Hypoxemia Atrial fibrillation PVC (premature ventricular contraction) Hypoglycemia associated with type 2 diabetes mellitus Pneumonia due to COVID-19 virus ESRD on peritoneal dialysis Atrial fibrillation Acute kidney injury superimposed on CKD Pneumonia Osteoarthritis (arthritis due to wear and tear of joints) Altered mental status Meningioma Anemia COVID-19 resolved Hypothyroidism GERD (gastroesophageal reflux disease) HTN (hypertension) CHF (congestive heart failure) CKD (chronic kidney disease) Diabetes Surgical History Peritoneal dialysis catheter in situ (06/26/21) History of ankle surgery S/P tonsillectomy Status post tubal ligation S/P cataract extraction S/P cervical spinal fusion Family History Mother Hypertension Grandmother Hypertension MATERNAL Other Cancer Diabetes Social History Smoking and tobacco/nicotine status: never used tobacco/nicotine Quit status (tobacco/nicotine): has quit using Year quit tobacco: 1977 [id number] Second hand smoke exposure: Yes Alcohol intake: never Substance/Drug Use: never Caregiver/support person: Yes Lives independently: Yes Household members: spouse and children Housing: House Marital status: Current occupational status: retired Pets and animals: Yes Do you think of yourself as: Straight/Heterosexual Current gender identity: Female Vitals/I&O/Wt Last Vital Signs Temp 94.8 F L 08/01/24 07:53 Pulse 69 08/01/24 10:29 Resp 17 08/01/24 08:30 BP 101/49 08/01/24 10:29 Pulse Ox 96 08/01/24 10:29 O2 Del Method Room Air 08/01/24 08:30 Weight last 48 hrs Weight 167 lb Physical Exam 2 Narrative: BELOW IS A FOCUSED LOWER EXTREMITY EXAM GENERAL: A&O x 3 VASCULAR: DP/PT pulses nonpalpable to right lower extremity DERMATOLOGICAL: Unstageable heel decubitus ulceration, soft, boggy eschar right posterior heel no active drainage. Heel decubitus eschar measures 5.0 x 7.0 cm negative probe to bone. Necrotic malodor MUSCULOSKELETAL: Tenderness with palpation of right posterior heel at site of eschar NEUROLOGICAL: Neurological sensation to the affected foot and ankle is present through L4-S1 dermatomes with no hyper/hypoesthesias, negative Tinel or Valleix's sign Data 08/01/24 05:00 08/01/24 05:00 Micro: Microbiology 08/01/24 07:32 Blood Culture - Preliminary Blood SPECIMEN COLLECTED 08/01/24 07:26 Blood Culture - Preliminary Blood SPECIMEN COLLECTED A&P Assessment and plan (1) Decubitus ulcer of heel, unstageable: (2) Osteomyelitis: Plan -Necrotic right decubitus heel ulceration -Labs and vitals reviewed -WBC 22.47 -ESR N/A -CRP 76 -HR 61 -RR 12 -Tmax 93.6 upon presentation to ER -Cultures blood cultures NGTD -Abx vancomycin/meropenem -Diet: N.p.o. at midnight -Patient will undergo right heel decubitus ulceration debridement tomorrow 08/02/24 at 1400 following general surgery intervention. Case discussed with general surgery. -Pain Mgmt: Per primary team -Weight bearing: Weightbearing as tolerated right lower extremity. Prevalon boots while at rest -Dressings: Betadine wet-to-dry -Continue current Abx therapy until ID and Sensitivity results -Trend labs -Discharge plan: To be determined -Podiatry will continue to round on patient daily and provide recommendations Coding Level of Care Code Acute Code for Chg Fwd Diagnoses Decubitus ulcer of heel, unstageable L89.600 Osteomyelitis M86.9
--- NOTE | 2024-08-01 11:26 | XRR_ITS ---
PROCEDURE INFORMATION: Exam: XR Right Ankle Exam date and time: 08/01/2024 11:48 AM Age: 84 years old Clinical indication: Condition or disease; Other: Right heel wound TECHNIQUE: Imaging protocol: Radiologic exam of the right ankle. Views: 1 or 2 views. COMPARISON: CT angio abd aorta runof [id number] 07/08/2024 11:10 AM FINDINGS: Bones/joints: The bones are profoundly osteopenic. Small plantar calcaneal spur is present. Slight scalloping of the dorsal cortex of the calcaneus represents a subtle change compared to 01/27/2024 . Please refer to CT report dated 07/29/2024. Orthopedic hardware related to previous ORIF of the distal fibular shaft and the medial malleolus. Soft tissues: Scattered foci of gas are noted in the soft tissues immediately dorsal to the calcaneus. XR/XR ankle RT 2V [id number] IMPRESSION: Soft tissue gas noted dorsal to the calcaneus. There is slight undulation of posterior calcaneal cortex; please refer to recent CT report for additional details.
--- NOTE | 2024-08-01 12:10 | P.CONIM_ITS ---
Providers/Reason For Consult 2 Consulting Physician/Specialty*: Dr. Carter Kwok, DO/General Surgery Reason for Consult*: Peritoneal dialysis catheter malfunction Attending Physician: Gabriele Rosales MD Primary Care Provider: Mann Garduno MD History of Present Illness History of Present Illness Luiza Cooper is a 84 year old female who disease on home peritoneal dialysis who presented to the hospital septic and hypoglycemic. She has a right heel wound that is being followed by podiatry. CT abdomen pelvis showed free air. There is damage to the peritoneal dialysis catheter and a recent culture peritoneal fluid grew strep homins. Is unclear if that is contamination or true infection. He denies any abdominal pain. She is interested in moving towards hemodialysis. He denies any fever or chills Review of Systems 2 General: Reports: 10 or more systems reviewed and unremarkable except in HPI and below Medications/Allergies Home Medications Medication Instructions Recorded Confirmed Last Taken Type blood sugar diagnostic (Contour #300 ea 10/08/22 08/01/24 Unknown Rx Next Test Strips) blood-glucose meter (OneTouch #1 ea 10/13/22 08/01/24 Unknown Rx Ultra2 Meter) lancets 33 gauge (OneTouch Delica #100 ea 10/13/22 08/01/24 Unknown Rx Plus Lancet) pen needle, diabetic 31 gauge x #100 ea 10/27/23 08/01/24 Unknown Rx 5/16 (BD Ultra-Fine Short Pen Needle) atorvastatin 40 mg tablet 40 mg PO QPM 11/27/23 08/01/24 07/31/24 History coenzyme Q10 100 mg capsule 100 mg PO BEDTIME 11/27/23 08/01/24 07/31/24 History (CoQ-10) potassium chloride 20 mEq 10 meq PO BEDTIME 11/27/23 08/01/24 07/31/24 History tablet,extended release vit B,C-folic ac 800 mcg-zinc 12.5 1 tab PO DAILY 11/27/23 08/01/24 07/31/24 History mg-selen-D3 2,000 unit-vit E tablet (RenaPlex-D) doxazosin 2 mg tablet 2 mg PO BEDTIME 01/27/24 08/01/24 07/31/24 History polyethylene glycol 3350 17 17 g PO PRN PRN Constipation 01/27/24 08/01/24 04/15/24 History gram/dose oral powder (Miralax) amiodarone 100 mg tablet 100 mg PO DAILY #30 tabs 05/09/24 08/01/24 07/31/24 Rx spironolactone 25 mg tablet 12.5 mg (1/2 x 25 mg) PO DAILY #30 05/30/24 08/01/24 07/31/24 Rx tabs blood sugar diagnostic (OneTouch #200 ea 06/27/24 08/01/24 Unknown Rx Ultra Test strips) hydrocodone 5 mg-acetaminophen 325 1 tab PO Q8H PRN pain 30 days #45 07/21/24 08/01/24 Unknown Rx mg tablet tabs furosemide 40 mg tablet 80 mg (2 x 40 mg) PO BID #180 tabs 07/28/24 08/01/24 07/31/24 Rx aspirin 81 mg tablet,delayed 81 mg PO DAILY 30 days #30 tabs 07/29/24 08/01/24 07/31/24 Rx release cefdinir 300 mg capsule 300 mg PO BID 14 days #28 caps 07/29/24 08/01/24 07/31/24 Rx insulin glargine 100 unit/mL (3 25 unit (0.25 mL) SUBCUT QAM #15 mL 07/29/24 08/01/24 07/31/24 Rx mL) subcutaneous pen (Lantus Solostar U-100 Insulin) levothyroxine 100 mcg capsule 100 mcg PO DAILY 30 days #30 caps 07/29/24 08/01/24 07/31/24 Rx linezolid 600 mg tablet (Zyvox) 600 mg PO BID 14 days #28 tabs 07/29/24 08/01/24 07/31/24 Rx levofloxacin 250 mg tablet 250 mg PO DAILY 5 days #5 tabs 07/31/24 08/01/24 07/31/24 Rx apixaban 5 mg tablet (Eliquis) 2.5 mg PO BID 08/01/24 08/01/24 07/31/24 History mirtazapine 15 mg tablet 15 mg PO BEDTIME PRN insomnia 08/01/24 08/01/24 07/31/24 History Allergies Allergy/AdvReac Type Severity Reaction Status Date / Time Penicillins Allergy Unknown Rash,Unknow Verified 07/25/24 12:36 n Current Medications Generic Name Dose Route Start Last Admin Trade Name Freq PRN Reason Stop Dose Admin Acetaminophen 650 mg 08/01/24 10:42 08/02/24 04:23 Acetaminophen 325 Mg Tablet PO 650 mg Q6H PRN Administration Mild/Mod Pain Or Temp >/= 101 Atorvastatin Calcium 40 mg 08/01/24 18:00 08/01/24 17:41 Atorvastatin 40 Mg Tablet PO 40 mg QPM NIKO Administration Heparin Sodium (Porcine) 5,000 unit 08/01/24 10:42 08/01/24 22:56 Heparin 5,000 Unit/Ml Inj 1 Ml SUBCUT Not Given Q12H NIKO Dextrose/Sodium Chloride 1,000 mls @ 75 mls/hr 08/01/24 10:42 08/02/24 00:10 Dextrose 5%-Sod Chloride 0.45% IV 75 mls/hr .[id number] NIKO Administration Meropenem 500 mg 08/01/24 11:00 08/01/24 12:15 Meropenem 500 Mg Sdv IVP 500 mg Q24H NIKO Administration Protocol Pantoprazole Sodium 40 mg 08/01/24 12:30 08/02/24 00:45 Pantoprazole 40 Mg Sdv IVP 40 mg Q12H NIKO Administration Sevelamer Carbonate 1,600 mg 08/01/24 15:00 08/01/24 21:34 Sevelamer 800 Mg Tablet PO 1,600 mg TID NIKO Administration PFSH Acute 2 PFSH: Medical History Essential hypertension ESRD (end stage renal disease) on dialysis Sepsis Cystitis Decubitus ulcer, buttock Heel ulcer UTI (urinary tract infection) Leukocytosis Pubic ramus fracture Closed fracture of single pubic ramus of pelvis Pelvic fracture Acute respiratory failure with hypoxia Hypoxemia Atrial fibrillation PVC (premature ventricular contraction) Hypoglycemia associated with type 2 diabetes mellitus Pneumonia due to COVID-19 virus ESRD on peritoneal dialysis Atrial fibrillation Acute kidney injury superimposed on CKD Pneumonia Osteoarthritis (arthritis due to wear and tear of joints) Altered mental status Meningioma Anemia COVID-19 resolved Hypothyroidism GERD (gastroesophageal reflux disease) HTN (hypertension) CHF (congestive heart failure) CKD (chronic kidney disease) Diabetes Surgical History Peritoneal dialysis catheter in situ (06/26/21) History of ankle surgery S/P tonsillectomy Status post tubal ligation S/P cataract extraction S/P cervical spinal fusion Family History Mother Hypertension Grandmother Hypertension MATERNAL Other Cancer Diabetes Social History Smoking and tobacco/nicotine status: never used tobacco/nicotine Quit status (tobacco/nicotine): has quit using Year quit tobacco: 1977 [id number] Second hand smoke exposure: Yes Alcohol intake: never Substance/Drug Use: never Caregiver/support person: Yes Lives independently: Yes Household members: spouse and children Housing: House Marital status: Current occupational status: retired Pets and animals: Yes Do you think of yourself as: Straight/Heterosexual Current gender identity: Female Vitals/I&O/Wt Last Vital Signs Temp 98.1 F 08/02/24 04:00 Pulse 73 08/02/24 06:00 Resp 13 08/02/24 04:30 BP 150/55 08/02/24 04:30 Pulse Ox 96 08/02/24 04:30 O2 Del Method Room Air 08/02/24 04:00 08/01/24 08/02/24 08/02/24 22:59 06:59 14:59 Intake Total 408.333 / 890.833 0 / 890.833 Output Total 500 / 500 450 / 950 Balance -91.667 / 390.833 -450 / -59.167 Weight last 48 hrs Weight 187 lb 6.287 oz Weight 167 lb Weight 167 lb Physical Exam 2 Narrative: General : Patient is well developed , no acute distress, oriented x3 Head : Normal cephalic, a-traumatic. Ears : Pinnae and external canal are normal. Hearing is normal. Eyes : PERRLA, Sclera and injection are normal. No conjunctival discharge. Nose : Mucous membranes are without erythema. Throat : buccal mucosa is normal, gums are without significant recession or hypertrophy. Lungs : Equal chest rise bilaterally, no use of accessory muscles, trachea is midline. Cor : Rate and rhythm are normal. Abdomen : Soft, ND, NT, no g/r/m Extremities : No edema, no cyanosis or clubbing, right foot is bandaged Back : non-tender to palpation, no CVA tenderness. Neuro : CN II - XII intact, Upper and lower extremities have equal and full strength Urinary Catheter Management: Corral: Cath Placed During This Visit: yes Reason for Continuing Indwelling Catheter: Accurate Measurement of Urinary Output in Critically Ill Patients Urinary Catheter Date of Insertion: 08/01/24 Urinary Catheter Time of Insertion: 16:53 Data 08/02/24 04:24 08/02/24 04:24 Micro: Microbiology 08/01/24 07:32 Blood Culture - Preliminary Blood SPECIMEN COLLECTED 08/01/24 07:26 Blood Culture - Preliminary Blood SPECIMEN COLLECTED A&P Assessment and plan (1) Peritoneal dialysis catheter mechanical complication: (2) SBP (spontaneous bacterial peritonitis): (3) ESRD (end stage renal disease) on dialysis: Plan Medical Management per hospitalist Podiatry following right foot wound N.p.o. after midnight While for insertion of permacath and removal of peritoneal dialysis catheter The risks and benefits of the procedure, including but not limited to, bleeding, infection, infection requiring catheter removal antibiotic therapy and repeat surgery, damage to surrounding structures, scar, numbness, pain, pneumothorax requiring thoracostomy tube, were explained to the patient. He/She is understanding of the risks and wishes to proceed. Coding Level of Care Code 70648 Diagnoses Peritoneal dialysis catheter mechanical complication T85.691A SBP (spontaneous bacterial peritonitis) K65.2 ESRD (end stage renal disease) on dialysis N18.6; Z99.2
[2024-08-01] MEDS: magnesium sulfate premix 1 GM/100 ML PIGGYBACK IV (12:14)
[2024-08-01] MEDS: dextrose 5%-sod chloride 0.45% 1,000 ML 75 ML IV (12:14)
[2024-08-01] MEDS: meropenem 500 mg SDV IVP (12:15)
[2024-08-01] MEDS: VANCOMYCIN ADD-Vantage 1,000 MG in 0.9% NaCl ADD-Vantage 250 ML 250 MG IV (12:24)
[2024-08-01] MEDS: heparin 5,000 unit/mL INJ 1 mL 5000 UNIT SUBCUT (12:25)
[2024-08-01] MEDS: pantoprazole 40 mg SDV IVP (13:59)
[2024-08-01] MEDS: Dianeal low Ca w/1.5% dex 2,000 mL Bag 2000 ML INTRAPERIT (15:00)
[2024-08-01 15:14] LABS: Glucose Point of Care 144 mg/dL (70-110)
[2024-08-01] MEDS: sevelamer 800 mg Tablet 1600 MG PO ×2 (16:37→21:34)
[2024-08-01 17:16] LABS: Bilirubin Urine Negative (Negative); Blood Urine 2+ (Negative); Glucose Urine UA Negative (Normal); Ketones Urine Negative (Negative); Leukocyte Esterase Urine 3+ (Negative); Nitrate Urine Negative (Negative); Protein Urine 1+ (Negative); Specific Gravity, Urine 1.019 (1.005-1.030); Urine Appearance Turbid (CLEAR); Urine Color Yellow (Yellow); pH Urine 5.5 (5-7)
[2024-08-01 17:22] LABS: Add Urine Microscopic? YES; Bacteria Urine None Seen /hpf; Hyaline Casts Urine 4.95 /lpf; Squamous Epithelial Cell Urine 0-5 /hpf (0-5); WBC Urine >100 /hpf (0-5)
[2024-08-01] MEDS: acetaminophen 325 mg Tablet 650 MG PO (17:41)
[2024-08-01] MEDS: atorvastatin 40 mg Tablet PO (17:41)
[2024-08-01 17:58] LABS: UA Slide Review UA Slide Review Perf
[2024-08-01 17:59] LABS: Add Urine Culture? Yes
[2024-08-01 18:07] LABS: Glucose Point of Care 170 mg/dL (70-110)
[2024-08-01 20:38] LABS: Cyto Order Verification No Order
[2024-08-01 20:48] LABS: Mononuclear %, Pleural Fluid 17 %; Polynuclear Cells, Pleural % 83 %
[2024-08-01 20:49] LABS: Appearance, Pleural Fluid CLOUDY (CLEAR); Color, Pleural Fluid Colorless (Pale Yellow)
[2024-08-01 20:50] LABS: PATH Referal YES
[2024-08-01 21:42] LABS: Glucose Point of Care 106 mg/dL (70-110)
--- NOTE | 2024-08-01 22:56 | PC.NURSE ---
Spoke with Dr. Pena in reference to patient's heparin dose and surgery tomorrow. Received orders to hold this dose of heparin.
[2024-08-01 23:40] LABS: Glucose Point of Care 72 mg/dL (70-110)
[2024-08-02] VITALS (85 sets, daily range): BP systolic 69–156; BP diastolic 30–81; PULSE 57–111; RESP 9–25; TEMP 36.4–37; O2SAT 90–100
[2024-08-02] MEDS: dextrose 5%-sod chloride 0.45% 1,000 ML 75 ML IV (00:10)
--- NOTE | 2024-08-02 00:34 | PC.NURSE ---
Dialysate bag complete, approximately 1500mLs out according to scale.
[2024-08-02] MEDS: pantoprazole 40 mg SDV IVP ×2 (00:45→12:16)
[2024-08-02 01:16] LABS: Glucose Point of Care 77 mg/dL (70-110)
[2024-08-02 03:05] LABS: Glucose Point of Care 79 mg/dL (70-110)
--- NOTE | 2024-08-02 04:07 | PC.NURSE ---
Contacted Dr. Pena in reference to patient's low MAP trend, and discussed patient's condition and history. No new orders received at this time, Dr. Pena advised this nurse to contact him if low MAP remains or continues to trend downward.
[2024-08-02] MEDS: acetaminophen 325 mg Tablet 650 MG PO (04:23)
[2024-08-02 04:39] LABS: Basophils # 0.1 10^3/uL (0.0-0.1); Basophils % 0.3 %; Eosinophils # 0.4 10^3/uL (0.0-0.8); Eosinophils % 2.2 %; Hematocrit 25.4 % (36-47); Lymphocytes # 1.6 10^3/uL (0.8-4.8); Lymphocytes % 9.2 %; Mean Corpuscular HGB Conc 31.9 g/dL (30-55); Mean Corpuscular Hemoglobin 32.3 pg (27-33); Mean Corpuscular Volume 101.2 fl (85-98); Mean Platelet Volume 8.4 fL (7.4-10.4); Monocytes # 0.7 10^3/uL (0.2-0.9); Monocytes % 4.1 %; Neutrophils # 14.43 10^3/uL (1.8-7.7); Neutrophils % 82.4 %; Nucleated Red Blood Cells % 0 %; Platelet Count 280 10^3/cmm (157-399); Red Blood Count 2.51 10^6/uL (3.85-5.65); Red Cell Distribution Width 14.1 % (12.1-15.1); White Blood Count 17.53 10^3/uL (3.29-11.43)
[2024-08-02 05:15] LABS: Alanine Aminotransferase 16 U/L (0-33); Albumin Level 2.4 g/dL (3.5-5.2); Alkaline Phosphatase 96 U/L (35-105); Anion Gap 17.5 (5-19); Aspartate Amino Transferase 17 U/L (0-32); Blood Urea Nitrogen 46 mg/dL (8-23); Calcium 7.7 mg/dL (8.5-10.5); Carbon Dioxide 23 mmol/L (22-29); Chloride 93 mmol/L (98-107); Creatinine Clr Calc Pharmacy 6.2351; Globulin 2.7 g/dL (1.3-4.6); Glucose 85 mg/dL (65-115); Magnesium 1.6 mg/dL (1.7-2.3); Osmolality Calculated 279 mOsm/kg (285-295); Phosphorus 4.9 mg/dL (2.5-4.5); Potassium 4.5 mmol/L (3.5-5.1); Sodium 129 mmol/L (136-145); Total Bilirubin 0.2 mg/dL (0.15-1.2); Total Protein 5.1 g/dL (6.6-8.7)
[2024-08-02 05:17] LABS: Glucose Point of Care 87 mg/dL (70-110)
[2024-08-02 05:27] LABS: Hepatitis B Core AB, Total Non-Reactive (Nonreactive); Hepatitis B Surface Antigen Non-Reactive (Nonreactive); Hepatitis C Virus Antibody Non-Reactive (Nonreactive)
[2024-08-02 05:45] LABS: Hepatitis B Surface AB > 1000.0 (11.5-1000)
--- NOTE | 2024-08-02 07:42 | P.PN_ITS ---
Subjective 2 Subjective: The patient was seen and examined. The patient is feeling better. The patient is awaiting surgery. Denies nausea vomiting fevers or chills. Medications: Reviewed: Yes Medication Review Details: Current Medications Acetaminophen (Acetaminophen 325 Mg Tablet) 650 mg PO Q6H PRN PRN Reason: Mild/Mod Pain Or Temp >/= 101 Last Admin: 08/02/24 04:23 Dose: 650 mg Amiodarone HCl (Amiodarone 200 Mg Tablet) 100 mg PO DAILY [facility] Aspirin (Aspirin 81 Mg Ec Tablet) 81 mg PO DAILY [facility] Atorvastatin Calcium (Atorvastatin 40 Mg Tablet) 40 mg PO QPM [facility] Last Admin: 08/01/24 17:41 Dose: 40 mg Heparin Sodium (Porcine) (Heparin 5,000 Unit/Ml Inj 1 Ml) 5,000 unit SUBCUT Q12H [facility] Last Admin: 08/01/24 22:56 Dose: Not Given Dextrose/Sodium Chloride (Dextrose 5%-Sod Chloride 0.45%) 1,000 mls @ 75 mls/hr IV .[id number] [facility] Last Admin: 08/02/24 00:10 Dose: 75 mls/hr Magnesium Sulfate/Dextrose (Magnesium Sulfate Premix) 1 gm in 100 mls @ 200 mls/hr IV ONCE ONE Stop: 08/02/24 07:53 Levothyroxine Sodium (Levothyroxine 100 Mcg Tablet) 100 mcg PO DAILY [facility] Meropenem (Meropenem 500 Mg Sdv) 500 mg IVP Q24H [facility]; Protocol Last Admin: 08/01/24 12:15 Dose: 500 mg Multivitamins (P-Mxxocrb-Tisukhp C Tablet) 1 each PO DAILY [facility] Ondansetron HCl (Ondansetron 2 Mg/Ml Sdv 2 Ml) 4 mg IVP Q6H PRN PRN Reason: vomiting, or N/V if npo Pantoprazole Sodium (Pantoprazole 40 Mg Sdv) 40 mg IVP Q12H [facility] Last Admin: 08/02/24 00:45 Dose: 40 mg Peritoneal Dialysis Solution (Dianeal Low Ca W/1.5% Dex 2,000 Ml Bag) 2,000 ml INTRAPERIT ONCE [facility] Peritoneal Dialysis Solution (Dianeal Low Ca W/2.5% Dex 2,000 Ml Bag) 2,000 ml INTRAPERIT ONCE [facility] Sevelamer Carbonate (Sevelamer 800 Mg Tablet) 1,600 mg PO TID [facility] Last Admin: 08/01/24 21:34 Dose: 1,600 mg Vancomycin HCl (Vancomycin 1,000 Mg Sdv (Pharmacy Mix)) 0 mg XX PRN PRN PRN Reason: Pharmacy to Dose Vitals/I&O/Wt Last Vital Signs Temp 98.1 F 08/02/24 04:00 Pulse 73 08/02/24 06:00 Resp 13 08/02/24 04:30 BP 150/55 08/02/24 04:30 Pulse Ox 96 08/02/24 04:30 O2 Del Method Room Air 08/02/24 04:00 08/01/24 08/02/24 08/02/24 22:59 06:59 14:59 Intake Total 408.333 / 890.833 0 / 890.833 Output Total 500 / 500 450 / 950 Balance -91.667 / 390.833 -450 / -59.167 Weight last 48 hrs Weight 85 kg Weight 75.75 kg Weight 75.75 kg Physical Exam 2 Narrative: Comfortable in bed no apparent distress. Vital signs noted. Blood pressure on low side HEENT normocephalic atraumatic Neck is supple. Lungs are clear to auscultation. Heart is regular Abdomen is soft positive bowel sounds. Nontender nondistended. Positive peritoneal dialysis catheter with a hole in the catheter. Extremities have no edema, right heel ischemic ulcer. Neuro awake alert oriented times 2+ moves all extremities. Urinary Catheter Management: [place]: Cath Placed During This Visit: yes Reason for Continuing Indwelling Catheter: Accurate Measurement of Urinary Output in Critically Ill Patients Urinary Catheter Date of Insertion: 08/01/24 Urinary Catheter Time of Insertion: 16:53 Data 08/02/24 04:24 08/02/24 04:24 Micro: Microbiology 08/01/24 07:32 Blood Culture - Preliminary Blood NEGATIVE TO DATE 08/01/24 07:26 Blood Culture - Preliminary Blood NEGATIVE TO DATE A&P Assessment and plan (1) ESRD (end stage renal disease) on dialysis: 84-year-old lady 1. Heel ulcer antibiotics as per medicine. For debridement today. 2. ID patient is grown multiple different bacteria such as Enterobacter cloacae and Klebsiella UTI appears like her peritoneal dialysis fluid had Pseudomonas and Staphylococcus hominis. Patient was on multiple antibiotics at this time the patient will get meropenem and vancomycin which I feel will be appropriate. PD catheter to be removed today. CRP of 76 consistent with infection. Albumin of 2.4 consistent with infection Patient's PD fluid consistent with peritonitis. Given the fact that she was on multiple antibiotics. Agree with removing Tenckhoff catheter. Please give appropriate antibiotics. 3. Hypotension improved. Blood pressure now normal. 4. Leukocytosis likely from multiple infections. 5. Anemia continue Epogen. Please note recent iron saturation of 97% and ferritin of 2000 please do not give any iron. 6. Hyponatremia likely from ESRD and infection. Should improve with dialysis. Plan for hemodialysis today. 7. Hypoglycemia adjust insulin now that she will not be on peritoneal dialysis. 8. Replace magnesium 9. Phosphorus binder PTH 216 is acceptable. 10. Patient has anemia start Epogen. The patient was seen examined using audiovisual equipment with the aid of a nurse. Plan see above Attestations 2 Medical Necessity Statement*: Sepsis, peritonitis, ESRD, anemia Time Spent in Patient Care: 16 - 35 minutes (>than 50% of time sp ent in counselling and/or direct pt care on unit) . Coding Level of Care Code Acute Code for g Fwd Diagnoses ESRD (end stage renal disease) on dialysis N18.6; Z99.2
--- NOTE | 2024-08-02 08:26 | SC_ITS ---
WS: [id number] C-ARM RADIOGRAPHS CHEST; 2 IMAGES HISTORY: dialysis cath placement COMPARISON: None available. Intraoperative imaging during placement of a dialysis catheter. Catheter appears to be in appropriate position. SC/C-arm FL for CVA [id number] IMPRESSION: Intraoperative imaging during dialysis catheter placement.
--- NOTE | 2024-08-02 08:50 | P.PN_ITS ---
Vitals/I&O/Wt Last Vital Signs Temp 98.1 F 08/02/24 04:00 Pulse 73 08/02/24 06:00 Resp 13 08/02/24 04:30 BP 150/55 08/02/24 04:30 Pulse Ox 96 08/02/24 04:30 O2 Del Method Room Air 08/02/24 04:00 08/01/24 08/02/24 08/02/24 22:59 06:59 14:59 Intake Total 408.333 / 890.833 0 / 890.833 Output Total 500 / 500 450 / 950 Balance -91.667 / 390.833 -450 / -59.167 Weight last 48 hrs Weight 187 lb 6.287 oz Weight 167 lb Weight 167 lb Physical Exam 2 Urinary Catheter Management: [place]: Cath Placed During This Visit: yes Reason for Continuing Indwelling Catheter: Accurate Measurement of Urinary Output in Critically Ill Patients Urinary Catheter Date of Insertion: 08/01/24 Urinary Catheter Time of Insertion: 16:53 Data 08/02/24 04:24 08/02/24 04:24 Micro: Microbiology 08/01/24 07:32 Blood Culture - Preliminary Blood NEGATIVE TO DATE 08/01/24 07:26 Blood Culture - Preliminary Blood NEGATIVE TO DATE A&P Assessment and plan (1) Peritoneal dialysis catheter mechanical complication: (2) SBP (spontaneous bacterial peritonitis): (3) ESRD (end stage renal disease) on dialysis: Plan Medical Management per hospitalist Podiatry following right foot wound Insertion of permacath and removal of peritoneal dialysis catheter The risks and benefits of the procedure, including but not limited to, bleeding, infection, infection requiring catheter removal antibiotic therapy and repeat surgery, damage to surrounding structures, scar, numbness, pain, pneumothorax requiring thoracostomy tube, were explained to the patient. He/She is understanding of the risks and wishes to proceed. Attestations 2 Medical Necessity Statement*: per primary Coding Level of Care Code Acute Code for Chg Fwd Diagnoses Peritoneal dialysis catheter mechanical complication T85.691A SBP (spontaneous bacterial peritonitis) K65.2 ESRD (end stage renal disease) on dialysis N18.6; Z99.2
[2024-08-02] MEDS: amiodarone 200 mg Tablet 100 MG PO (08:58)
[2024-08-02] MEDS: levothyroxine 100 mcg Tablet PO (08:58)
[2024-08-02] MEDS: aspirin 81 mg EC Tablet PO (08:58)
--- NOTE | 2024-08-02 08:59 | P.PN_ITS ---
Documented by User: Sergio Blanc 08/02/24 10:09 Subjective 2 Subjective: Patient is an 84 y.o. female with CHF and ESRD on peritoneal dialysis, as well as necrotic right heel ulceration with osteomyelitis. She has been visited by Dr. Draper and Dr. Kwok with plans today to remove peritoneal dialysis catheter and place a tunneled catheter to proceed with hemodialysis. She has also been visited by Dr. Garg with plans to undergo debridement of her necrotic right heel ulceration today during same OR visit as her tunneled catheter placement. She denies any new concerns this morning and endorses understanding and agreement to the plan. She feels her appetite is beginning to return, although she has been NPO overnight in anticipation for procedures today. Has been normothermic today after some hypothermia concerns yesterday. Medications: Reviewed: Yes Vitals/I&O/Wt Last Vital Signs Temp 98.1 F 08/02/24 04:00 Pulse 73 08/02/24 06:00 Resp 13 08/02/24 04:30 BP 150/55 08/02/24 04:30 Pulse Ox 96 08/02/24 04:30 O2 Del Method Room Air 08/02/24 04:00 08/01/24 08/02/24 08/02/24 22:59 06:59 14:59 Intake Total 408.333 / 890.833 0 / 890.833 Output Total 500 / 500 450 / 950 Balance -91.667 / 390.833 -450 / -59.167 Weight last 48 hrs Weight 187 lb 6.287 oz Weight 167 lb Weight 167 lb Physical Exam 2 Narrative: General: Alert and oriented. No apparent distress. Cardiovascular: Regular rate and rhythm. Lungs: Clear to auscultation. No wheezing or crackles. Abdomen: Peritoneal dialysis catheter is noted. No tenderness. Positive bowel sounds Extremities: Heel ulcer with black eschar noted on right heel with odor; essentially unchanged. Otherwise no cyanosis or edema. Data 08/02/24 04:24 08/02/24 04:24 Micro: Microbiology 08/01/24 07:32 Blood Culture - Preliminary Blood NEGATIVE TO DATE 08/01/24 07:26 Blood Culture - Preliminary Blood NEGATIVE TO DATE A&P Assessment and plan (1) Sepsis: Patient presents with concern of sepsis. Site could be heel, peritonitis, UTI, or other abdominal pathology considering free air on CT Urinalysis results suggest infection Peritoneal fluid demonstrates 542 WBCs with 83% polynucleur, suggestive of bacterial peritonitis Peritoneal gram stain reveal gram positive cocci in pairs and clusters Blood, urine, and peritoneal fluid culture results all pending Chest x-ray demonstrates no obvious pneumonia on my read Continue broad-spectrum antibiotics consisting of vancomycin, meropenem. Meropenem is used secondary to penicillin allergy listed Note that she has had multiple resistant organisms in the past such as MRSA and Enterobacter Sepsis criteria met with borderline hypotension, hypothermia, leukocytosis, possible source, abnormal CT imaging, hypoglycemia She is not a candidate for a fluid bolus at this time secondary to end-stage renal disease patient, with some pulmonary edema on x-ray, with a compromised peritoneal dialysis catheter. We can easily fluid overload her and cause significant respiratory failure. (2) Foot ulcer, right: IV antibiotics consisting of vancomycin and meropenem Dr. Garg plans to proceed with debridement today Wound care per podiatry (3) Hypoglycemia associated with type 2 diabetes mellitus: Currently NPO in anticipation of procedures today Continue IV fluids with glucose Continue frequent monitoring of Accu-Chek Hold insulin for now May be able to discontinue D5 fluids after procedures when she can resume PO diet (4) ESRD (end stage renal disease) on dialysis: Nephrology consultation Peritoneal dialysis catheter to be removed today, with placement of new tunneled catheter to transition to hemodialysis CBC, CMP daily (5) Hypomagnesemia: Magnesium level 1.6 today, same as yesterday Supplement Plan Recent past history of peritonitis, UTI Deconditioning, severe weakness Peripheral vascular disease Full code Coding Level of Care Code 60313 Diagnoses Sepsis A41.9 Foot ulcer, right L97.519 Hypoglycemia associated with type 2 diabetes mellitus E11.649 ESRD (end stage renal disease) on dialysis N18.6; Z99.2 Hypomagnesemia E83.42 Time Spent (min) 24 Documented by User: Gabriele Rosales MD 08/02/24 11:05 Data 08/02/24 04:24 08/02/24 04:24 A&P Assessment and plan (1) Sepsis: Patient presents with concern of sepsis. Site could be heel, peritonitis, UTI, or other abdominal pathology considering free air on CT. UTI also found. Peritoneal fluid demonstrates 542 WBCs with 83% polynucleur, suggestive of bacterial peritonitis Peritoneal gram stain reveal gram positive cocci in pairs and clusters Blood, urine, and peritoneal fluid culture results all pending Chest x-ray demonstrates no obvious pneumonia on my read Continue broad-spectrum antibiotics consisting of vancomycin, meropenem. Meropenem is used secondary to penicillin allergy listed Note that she has had multiple resistant organisms in the past such as MRSA and Enterobacter Sepsis criteria met with borderline hypotension, hypothermia, leukocytosis, possible source, abnormal CT imaging, hypoglycemia. She is improving significantly. (2) Foot ulcer, right: (3) Hypoglycemia associated with type 2 diabetes mellitus: Currently NPO in anticipation of procedures today Continue IV fluids with glucose. Try to taper these off after she is able to initiate p.o. status. Continue frequent monitoring of Accu-Chek Hold insulin for now (4) ESRD (end stage renal disease) on dialysis: (5) Hypomagnesemia: Magnesium level 1.6 today, same as yesterday Supplement today, recheck tomorrow. Plan Recent past history of peritonitis, UTI Deconditioning, severe weakness. PT consult possibly tomorrow after procedures today. Peripheral vascular disease Full code Heparin for DVT prophylaxis Attestations 2 Medical Necessity Statement*: Needs continued hospitalization for IV antibiotics secondary to SBP, sepsis, fractured peritoneal dialysis catheter, UTI, etc. Diagnoses Sepsis A41.9 Foot ulcer, right L97.519 Hypoglycemia associated with type 2 diabetes mellitus E11.649 ESRD (end stage renal disease) on dialysis N18.6; Z99.2 Hypomagnesemia E83.42 Time Spent (min) 24
[2024-08-02] MEDS: magnesium sulfate premix 1 GM/100 ML PIGGYBACK IV (09:00)
[2024-08-02] MEDS: EPOETIN ALFA-EPBX 10,000 UNIT/ML SDV (ESRD) 10000 UNIT SUBCUT (09:01)
[2024-08-02] MEDS: b-complex-vitamin c Tablet 1 EACH PO (09:01)
[2024-08-02] MEDS: sevelamer 800 mg Tablet 1600 MG PO (09:01)
[2024-08-02 09:11] LABS: Vancomycin Trough 22.2 ug/mL (10-15)
--- NOTE | 2024-08-02 09:47 | P.ANESASSM_ITS ---
Pre-Anesthetic Assessment Height/Weight: Height 5 ft 2 in Weight 187 lb 6.287 oz Temp Pulse Resp BP Pulse Ox O2 Del Method 98.1 F 73 13 150/55 96 Room Air 08/02/24 04:00 08/02/24 06:00 08/02/24 04:30 08/02/24 04:30 08/02/24 04:30 08/02/24 04:00 Preop Diagnosis: Infected heel/catheter Operation Date: 08/02/24 11:10 Proposed Procedures p Dialysis Catheter Insertion Permacath Insertion(Not Applicable) - Carter Kwok DO s Peritoneal Catheter Removal(Not Applicable) - Carter Kwok DO Operation Date: 08/02/24 13:00 Proposed Procedures p Right heel wound incision bone cortex(Right) - Justo Garg DPM Was Beta Cammy taken within 24 hours: N/A Was Clonidine taken within 24 hours: N/A Social No alcohol and No tobacco Exam alert, oriented x 3, clear to auscultation bilaterally and regular rate & rhythm Airway Submandibular: within normal limits Cervical ROM: within normal limits Mallampati: Class II Dentition: partials Anesthetic Plan ASA status: 4 Anesthesia: General Other: Patient admitted yesterday for concerns of sepsis/hypoglycemia. Patient was placed on antibiotics. Concern for osteomyelitis in the heel as well as infected peritoneal dialysis catheter. WBC 22.4 at admission Patient denies any history of issues with anesthesia NPO since yesterday Patient received peritoneal dialysis yesterday Type 2 diabetes on insulin. Blood sugar 85 Labs reviewed. NA 129, K+ 4.5 EKG from yesterday reviewed, supraventricular rhythm noted. Patient has a history of A-fib, cardioversion 3 years ago Risks were discussed with the patient and at bedside. Plan is for MAC anesthesia with possible conversion to general if needed. They accept the risk of the procedure Medications/Allergies Home Medications Medication Instructions Recorded Confirmed Last Taken Type blood sugar diagnostic (Contour #300 ea 10/08/22 08/01/24 Unknown Rx Next Test Strips) blood-glucose meter (OneTouch #1 ea 10/13/22 08/01/24 Unknown Rx Ultra2 Meter) lancets 33 gauge (OneTouch Delica #100 ea 10/13/22 08/01/24 Unknown Rx Plus Lancet) pen needle, diabetic 31 gauge x #100 ea 10/27/23 08/01/24 Unknown Rx 5/16 (BD Ultra-Fine Short Pen Needle) atorvastatin 40 mg tablet 40 mg PO QPM 11/27/23 08/01/24 07/31/24 History coenzyme Q10 100 mg capsule 100 mg PO BEDTIME 11/27/23 08/01/24 07/31/24 History (CoQ-10) potassium chloride 20 mEq 10 meq PO BEDTIME 11/27/23 08/01/24 07/31/24 History tablet,extended release vit B,C-folic ac 800 mcg-zinc 12.5 1 tab PO DAILY 11/27/23 08/01/24 07/31/24 History mg-selen-D3 2,000 unit-vit E tablet (RenaPlex-D) doxazosin 2 mg tablet 2 mg PO BEDTIME 01/27/24 08/01/24 07/31/24 History polyethylene glycol 3350 17 17 g PO PRN PRN Constipation 01/27/24 08/01/24 04/15/24 History gram/dose oral powder (Miralax) amiodarone 100 mg tablet 100 mg PO DAILY #30 tabs 05/09/24 08/01/24 07/31/24 Rx spironolactone 25 mg tablet 12.5 mg (1/2 x 25 mg) PO DAILY #30 05/30/24 08/01/24 07/31/24 Rx tabs blood sugar diagnostic (OneTouch #200 ea 06/27/24 08/01/24 Unknown Rx Ultra Test strips) hydrocodone 5 mg-acetaminophen 325 1 tab PO Q8H PRN pain 30 days #45 07/21/24 08/01/24 Unknown Rx mg tablet tabs furosemide 40 mg tablet 80 mg (2 x 40 mg) PO BID #180 tabs 07/28/24 08/01/24 07/31/24 Rx aspirin 81 mg tablet,delayed 81 mg PO DAILY 30 days #30 tabs 07/29/24 08/01/24 07/31/24 Rx release cefdinir 300 mg capsule 300 mg PO BID 14 days #28 caps 07/29/24 08/01/24 07/31/24 Rx insulin glargine 100 unit/mL (3 25 unit (0.25 mL) SUBCUT QAM #15 mL 07/29/24 08/01/24 07/31/24 Rx mL) subcutaneous pen (Lantus Solostar U-100 Insulin) levothyroxine 100 mcg capsule 100 mcg PO DAILY 30 days #30 caps 07/29/24 08/01/24 07/31/24 Rx linezolid 600 mg tablet (Zyvox) 600 mg PO BID 14 days #28 tabs 07/29/24 08/01/24 07/31/24 Rx levofloxacin 250 mg tablet 250 mg PO DAILY 5 days #5 tabs 07/31/24 08/01/24 07/31/24 Rx apixaban 5 mg tablet (Eliquis) 2.5 mg PO BID 08/01/24 08/01/24 07/31/24 History mirtazapine 15 mg tablet 15 mg PO BEDTIME PRN insomnia 08/01/24 08/01/24 07/31/24 History Allergies Allergy/AdvReac Type Severity Reaction Status Date / Time Penicillins Allergy Unknown Rash,Unknow Verified 07/25/24 12:36 n Current Medications Generic Name Dose Route Start Last Admin Trade Name Freq PRN Reason Stop Dose Admin Acetaminophen 650 mg 08/01/24 10:42 08/02/24 04:23 Acetaminophen 325 Mg Tablet PO 650 mg Q6H PRN Administration Mild/Mod Pain Or Temp >/= 101 Amiodarone HCl 100 mg 08/02/24 09:00 08/02/24 08:58 Amiodarone 200 Mg Tablet PO 100 mg DAILY NIKO Administration Aspirin 81 mg 08/02/24 09:00 08/02/24 08:58 Aspirin 81 Mg Ec Tablet PO 81 mg DAILY NIKO Administration Atorvastatin Calcium 40 mg 08/01/24 18:00 08/01/24 17:41 Atorvastatin 40 Mg Tablet PO 40 mg QPM NIKO Administration Heparin Sodium (Porcine) 5,000 unit 08/01/24 10:42 08/01/24 22:56 Heparin 5,000 Unit/Ml Inj 1 Ml SUBCUT Not Given Q12H NIKO Dextrose/Sodium Chloride 1,000 mls @ 75 mls/hr 08/01/24 10:42 08/02/24 00:10 Dextrose 5%-Sod Chloride 0.45% IV 75 mls/hr .[id number] NIKO Administration Levothyroxine Sodium 100 mcg 08/02/24 09:00 08/02/24 08:58 Levothyroxine 100 Mcg Tablet PO 100 mcg DAILY NIKO Administration Meropenem 500 mg 08/01/24 11:00 08/01/24 12:15 Meropenem 500 Mg Sdv IVP 500 mg Q24H NIKO Administration Protocol Multivitamins 1 each 08/02/24 09:00 08/02/24 09:01 V-Berftag-Wljsbwr C Tablet PO 1 each DAILY NIKO Administration Pantoprazole Sodium 40 mg 08/01/24 12:30 08/02/24 00:45 Pantoprazole 40 Mg Sdv IVP 40 mg Q12H NIKO Administration Sevelamer Carbonate 1,600 mg 08/01/24 15:00 08/02/24 09:01 Sevelamer 800 Mg Tablet PO 1,600 mg TID NIKO Administration Additional Medication Information Current Medications Acetaminophen (Acetaminophen 325 Mg Tablet) 650 mg PO Q6H PRN PRN Reason: Mild/Mod Pain Or Temp >/= 101 Last Admin: 08/02/24 04:23 Dose: 650 mg Amiodarone HCl (Amiodarone 200 Mg Tablet) 100 mg PO DAILY [facility] Aspirin (Aspirin 81 Mg Ec Tablet) 81 mg PO DAILY NIKO Atorvastatin Calcium (Atorvastatin 40 Mg Tablet) 40 mg PO QPM [facility] Last Admin: 08/01/24 17:41 Dose: 40 mg Heparin Sodium (Porcine) (Heparin 5,000 Unit/Ml Inj 1 Ml) 5,000 unit SUBCUT Q12H [facility] Last Admin: 08/01/24 22:56 Dose: Not Given Dextrose/Sodium Chloride (Dextrose 5%-Sod Chloride 0.45%) 1,000 mls @ 75 mls/hr IV .[id number] [facility] Last Admin: 08/02/24 00:10 Dose: 75 mls/hr Magnesium Sulfate/Dextrose (Magnesium Sulfate Premix) 1 gm in 100 mls @ 200 mls/hr IV ONCE ONE Stop: 08/02/24 07:53 Levothyroxine Sodium (Levothyroxine 100 Mcg Tablet) 100 mcg PO DAILY NIKO Meropenem (Meropenem 500 Mg Sdv) 500 mg IVP Q24H [facility]; Protocol Last Admin: 08/01/24 12:15 Dose: 500 mg Multivitamins (K-Cifczqv-Ngcytcs C Tablet) 1 each PO DAILY [facility] Ondansetron HCl (Ondansetron 2 Mg/Ml Sdv 2 Ml) 4 mg IVP Q6H PRN PRN Reason: vomiting, or N/V if npo Pantoprazole Sodium (Pantoprazole 40 Mg Sdv) 40 mg IVP Q12H [facility] Last Admin: 08/02/24 00:45 Dose: 40 mg Peritoneal Dialysis Solution (Dianeal Low Ca W/1.5% Dex 2,000 Ml Bag) 2,000 ml INTRAPERIT ONCE NIKO Peritoneal Dialysis Solution (Dianeal Low Ca W/2.5% Dex 2,000 Ml Bag) 2,000 ml INTRAPERIT ONCE NIKO Sevelamer Carbonate (Sevelamer 800 Mg Tablet) 1,600 mg PO TID [facility] Last Admin: 08/01/24 21:34 Dose: 1,600 mg Vancomycin HCl (Vancomycin 1,000 Mg Sdv (Pharmacy Mix)) 0 mg XX PRN PRN PRN Reason: Pharmacy to Dose [facility] Anesthesia Medical History Essential hypertension ESRD (end stage renal disease) on dialysis Sepsis Cystitis Decubitus ulcer, buttock Heel ulcer UTI (urinary tract infection) Leukocytosis Pubic ramus fracture Closed fracture of single pubic ramus of pelvis Pelvic fracture Acute respiratory failure with hypoxia Hypoxemia Atrial fibrillation PVC (premature ventricular contraction) Hypoglycemia associated with type 2 diabetes mellitus Pneumonia due to COVID-19 virus ESRD on peritoneal dialysis Atrial fibrillation Acute kidney injury superimposed on CKD Pneumonia Osteoarthritis (arthritis due to wear and tear of joints) Altered mental status Meningioma Anemia COVID-19 resolved Hypothyroidism GERD (gastroesophageal reflux disease) HTN (hypertension) CHF (congestive heart failure) CKD (chronic kidney disease) Diabetes Surgical History Peritoneal dialysis catheter in situ (06/26/21) History of ankle surgery S/P tonsillectomy Status post tubal ligation S/P cataract extraction S/P cervical spinal fusion Family History Mother Hypertension Grandmother Hypertension MATERNAL Other Cancer Diabetes Social History Smoking and tobacco/nicotine status: never used tobacco/nicotine Quit status (tobacco/nicotine): has quit using Year quit tobacco: 1977 [id number] Second hand smoke exposure: Yes Alcohol intake: never Substance/Drug Use: never Caregiver/support person: Yes Lives independently: Yes Household members: spouse and children Housing: House Marital status: Current occupational status: retired Pets and animals: Yes Do you think of yourself as: Straight/Heterosexual Current gender identity: Female Data Anesthesia 08/02/24 04:24 08/02/24 04:24 Short CBC 08/01/24 08/02/24 Range/Units 05:00 04:24 WBC 22.47 H 17.53 H (3.29-11.43) 10^3/uL Hgb 8.30 L 8.10 L (11.27-16.99) g/dL Hct 26.8 L 25.4 L (36-47) % MCV 101.1 H 101.2 H (85-98) fl Plt Count 314 280 (157-399) 10^3/cmm Neut % (Auto) 76.9 82.4 % Neut # (Auto) 17.30 H 14.43 H (1.8-7.7) 10^3/uL BMP 08/01/24 08/02/24 05:00 04:24 Sodium 135 L 129 L Potassium 4.4 4.5 Chloride 96 L 93 L Carbon Dioxide 22 23 BUN 52 H 46 H Creatinine 7.1 H* 6.4 H* Glucose 31 L* 85 Calcium 7.9 L 7.7 L Liver Function 08/01/24 08/02/24 Range/Units 05:00 04:24 Total Bilirubin 0.2 0.2 (0.15-1.2) mg/dL AST 21 17 (0-32) U/L ALT 17 16 (0-33) U/L Alkaline Phosphatase 88 96 (35-105) U/L Albumin 2.4 L 2.4 L (3.5-5.2) g/dL Urine 08/01/24 Range/Units 16:42 Urine Color Yellow (Yellow) Urine Appearance Turbid A (CLEAR) Urine pH 5.5 (5-7) Ur Specific [place] 1.019 (1.005-1.030) Urine Protein 1+ A (Negative) Urine Glucose (UA) Negative (Normal) Urine Ketones Negative (Negative) Urine Nitrate Negative (Negative) Urine Bilirubin Negative (Negative) Ur Leukocyte Esterase 3+ A (Negative) Urine RBC 6-10 (0-2) /hpf Urine WBC >100 H (0-5) /hpf Coags 08/01/24 05:00 C-Reactive Protein 76.0 H Microbiology 11/11/24 20:11 Gram Stain - Final Peritoneal Fluid 08/01/24 07:32 Blood Culture - Preliminary Blood NEGATIVE TO DATE 08/01/24 07:26 Blood Culture - Preliminary Blood NEGATIVE TO DATE Cardiac Studies: 2 Echocardiogram Limited Views 09/26/20 Echocardiogram Ultrasound 08/03/20 Transesophageal Echocardiogram 10/05/20
[2024-08-02] MEDS: lidocaine-epi 2% PF 1:200,000 20 mL SDV XX (10:10)
[2024-08-02] MEDS: heparin, porcine 1,000 unit/mL INJ 10 mL 10000 UNIT INJECTION (10:23)
[2024-08-02 10:24] LABS: Glucose Point of Care 127 mg/dL (70-110)
--- NOTE | 2024-08-02 10:45 | P.OP_ITS ---
Operative Report Date of procedure: August 02, 2024 Pre-op diagnosis: Perineal catheter malfunction Spontaneous bacterial peritonitis End-stage renal disease on dialysis Post-op diagnosis: same Procedure done: Permacath placement Intraoperative interpretation of fluoroscopy Peritoneal dialysis catheter removal Specimens removed/disposition: Peritoneal dialysis catheter Surgeon: Carter Kwok DO Anesthesia: MAC and Local Estimated blood loss (mL): 5 Complications: None apparent Brief History: This is a very pleasant 84-year-old female with spontaneous bacterial peritonitis and malfunction of her peritoneal dialysis catheter. She desired to switch to hemodialysis. Permacath placement and removal of peritoneal dialysis catheter were indicated. The risks and benefits were explained and documented. Procedure: Patient was taken to the operating room and placed supine on the operating room table. All bony prominences were padded. He was given IV sedation and monitored throughout the case by the anesthesia personnel. SCDs were placed and turned on. The arms were tucked to the side. Patient received Vancomycin preoperatively IV. The bilateral chest wall was prepped and draped in usual sterile fashion using chlorhexidine base prep. Sterile drapes were applied. We did procedure pause prior to beginning. An 18 gauge needle was placed in the right internal jugular vein under ultrasound guidance. Dark, nonpulsatile blood was aspirated. A guidewire was placed through the needle centrally toward the atrial/vena caval junction. Fluoroscopy visualized good placement. The needle was removed and the guidewire was clipped to the drape with a hemostat. Further local anesthetic was infiltrated in the soft tissues of the right chest wall and a #15 blade was used to make a vertical skin incision. A #15 blade was used to make a small skin lee around the guidewire insertion area. The permacath tubing was tunneled through the subcutaneous tissues up to the needle insertion location. Serial dilators were used to serially dilate over the guidewire . A dilator with a peel-away sheath was placed over the guidewire and placed centrally. The guidewire was removed as well as the dilator and the permacath was fed into the split sheath. The split sheath was removed. Both ports were aspirated to reveal dark blood and were flushed with saline only as the patient has a heparin allergy. Final fluoroscopy visualization showed no kink in the catheter and the tip of the permacath tubing near the atrial/vena caval junction. There was no obvious pneumothorax. Attention was then brought to the peritoneal dialysis catheter. With gentle and Both skin incisions were thoroughly irrigated and suctioned dry. Meticulous hemostasis noted. The internal jugular access site was closed with 4-0 Vicryl in a subcuticular fashion. The skin overlying the permacath was closed in a similar manner. The permacath was then sutured into place using 2-0 nylon in a simple interrupted fashion. skin glue was applied as a topical dressing. This was allowed to dry. Attention was then brought to the peritoneal dialysis catheter. With gentle and constant traction, both cuffs of the catheter were broken loose and the catheter was removed. A sterile bandage was applied. Dr. Garg, document preparer microfilming, then came in to address her right foot.
--- NOTE | 2024-08-02 10:51 | XRR_ITS ---
PROCEDURE INFORMATION: Exam: XR Chest Exam date and time: 08/02/2024 11:33 AM Age: 84 years old Clinical indication: Device placement; Other: Status post permacath placement TECHNIQUE: Imaging protocol: Radiologic exam of the chest. Views: 1 view. COMPARISON: CR XR chest 1V portable [id number] 08/01/2024 9:08 AM. Chest radiograph dated 03/15/2024. CT chest dated 11/27/2023. FINDINGS: Tubes, catheters and devices: Right chest dialysis catheter tip is positioned over the SVC region. Lungs: Evidence for calcified lung granuloma in the left chest. Bilateral pulmonary linear and interstitial opacities are demonstrated within the lungs. The pulmonary opacities are demonstrated within bilateral upper and lower lungs. No lung consolidation identified. Pleural spaces: Minimal volume of pleural fluid is demonstrated within the right side. No other pleural effusion or pneumothorax identified. Heart/Mediastinum: The cardiac silhouette appears borderline prominent. Vasculature: [id number] atherosclerotic calcification demonstrated within the aorta. Bones/joints: Diffusely decreased bone density. Generalized bony degenerative changes. Soft tissues: This study is limited by patient's body habitus. XR/XR chest 1V portable [id number] IMPRESSION: 1. Minimal right pleural effusion. 2. Diffuse bilateral linear interstitial pulmonary opacities. Possible acute infiltrates, mild edema or pulmonary scarring. 3. Borderline prominence of the cardiac silhouette. 4. Degenerative and postsurgical changes are demonstrated, as described above.
[2024-08-02] MEDS: BUPivacaine 0.5% INJ 30 mL INJECTION (10:55)
--- NOTE | 2024-08-02 11:14 | P.BOP_ITS ---
Date of procedure: 08/02/2024 Surgeon name: Dr. Britany D.P.M. [employer] Specialist(s) name(s): Procedure(s) performed: Incision bone cortex right heel Description of findings: Necrotic heel wound down to level of calcaneum Estimated blood loss: 10 cc Tourniquet time: No tourniquet used Specimen(s) removed: Cultures aerobic and anaerobic Post-operative diagnosis: Decubitus heel ulceration right heel. Chronic osteomyelitis. Based on intraoperative findings and exposed calcaneus patient will need outpatient IV antibiotic therapy
--- NOTE | 2024-08-02 11:30 | ANE.PACU2 ---
Inpatient post-anesthesia follow up: Airway intact: Yes Vital signs: Temperature 98.6 F Pulse Rate 60 Respiratory Rate 19 Blood Pressure 106/40 Pulse Oximetry 96 Oxygen Delivery Me thod Room Air Oxygen Flow Rate Fraction of Inspir ed Oxygen Hydration adequate: Yes Nausea and vomiting: No Pain level: 1 Mental status: Baseline
--- NOTE | 2024-08-02 11:48 | SUR.OPER ---
1045 18IN TOURNIQUET CUFF APPLIED TO RIGHT ANKLE BY EMILIA BEFORE PROCEDURE. TOURNIQUET WAS NOT INFLATED DURING PROCEDURE. SKIN SITE AFTER REMOVAL OF TOURNIQUET WAS PWD. 1110 PT HAD SMALL BLACK BOWEL MOVEMENT DURING TRANSFER FROM OR BED TO PT'S BED. CLEANED PT WITH WARM BABY SHAMPOO WATER AND DRIED OFF. REPLACED OLD SHEETS WITH NEW SHEETS. PT TOLERATED WELL.
[2024-08-02] MEDS: meropenem 500 mg SDV IVP (12:16)
[2024-08-02 15:40] LABS: Glucose Point of Care 117 mg/dL (70-110)
--- NOTE | 2024-08-02 16:14 | PC.HD ---
Newly inserted HD catheter with no dressing. Area cleansed with Chloraprep and Covaderm dressing applied to catheter insertion site prior to treatment initiation.
[2024-08-02] MEDS: norepinephrine 4 MG/250 ML BAG 7.5 MG IV (16:45)
[2024-08-02 17:08] LABS: Hematocrit 23.1 % (36-47)
[2024-08-02 17:34] LABS: Glucose Point of Care 147 mg/dL (70-110)
--- NOTE | 2024-08-02 18:37 | P.OP_ITS ---
Operative Report Date of procedure: August 02, 2024 Surgeon: Justo Garg DPM Procedure: Date of procedure: 08/02/2024 Pre-op diagnosis: Right heel necrotic ulcer Post-op diagnosis: Same Post-op findings: Right necrotic heel decubitus ulceration with necrotic tissue extending down to the level of calcaneum Procedure done: Incision bone cortex right heel CPT 25431 Implants: None Specimens removed: Cultures aerobic and anaerobic Surgeon: Dr. Justo Garg DPM Grounds Foreman: Bruce Estimated blood loss: 10 cc Tourniquet time: No tourniquet used Complications: None The patient presents with an infected, necrotic decubitus heel ulceration, characterized by erythema, swelling, and drainage. The infection is complicated by underlying conditions, including peripheral vascular disease, which have contributed to the progression of the infection despite conservative management. Preoperative imaging and laboratory results indicate osteomyelitis and extensive necrotic tissue, necessitating surgical intervention. The planned procedure is intended to address the infection, debride necrotic tissue, and, if necessary, assess the viability of surrounding structures to prevent further complications. The patient has been NPO since midnight. The history has been reviewed and the history and physical is current. The signed consent was confirmed and placed in the patient chart. Patient imaging has been reviewed and is consistent with the diagnosis. Under mild sedation, the patient was brought into the operating room and placed on the table in the supine position. Patient is receiving antibiotics around the clock on the floor, Therefore, additional antibiotic prophylaxix was not administered. General sedation was then performed by the anesthesiateam. A pneumatic tourniquet was then placed about the right ankle. The operative extremity was then prepped and draped in the usual fashion. After prep, the following procedure was then performed. The tourniquet was not inflated. Attention was directed to the posterior aspect of the right heel where necrotic, foul-smelling decubitus heel ulceration was noted. The medial portion of the eschar was dry and stable. However, the lateral portion was soft and boggy with underlying fluctuance. #15 blade was used to excise the necrotic tissue down to the level of calcaneal periosteum. Care was taken to remove devitalized tissue surrounding the calcaneus. This included the periosteum of the posterior aspect of the calcaneus. The calcaneal cortex was noted to have signs of cortical erosion consistent with osteomyelitis. No readily visualized abscess was visualized deep to the eschar. The entirety of the eschar with associated necrotic tissue was debrided from the foot and passed from the operative field. Cultures aerobic and anaerobic were taken at this point and sent to micro for ID and sensitivity. The wound was further assessed and was noted to not undermine or track in any direction. The heel was expressed and no purulence was visualized. After removal of devitalized tissue the site was irrigated with copious amounts of sterile saline. Hemostasis was noted to be achieved. The wound was dressed with Betadine soaked Adaptic, Betadine soaked 4 x 4 gauze, dry 4 x 4 gauze, Kerlix, ABD pad x 3 and William bandage. The patient tolerated the procedure and anesthesia well and without complication. The patient was transported from the operating room to the recovery room with vital signs stable and vascular status intact to all digits of the right foot. Thepatient was instructed to remain nonweightbearing to the operative extremity, to keep surgical dressing clean, dry and intact. The patient will be transferred back to the floor once anesthesia criteria is met. I will continue to round on and follow the patient in the inpatientsetting and pro vide recommendations to stabilize the patient for discharge. Based on intraoperative findings of calcaneal involvement patient will need long-term IV antibiotic therapy
--- NOTE | 2024-08-02 19:19 | PC.NURSE ---
Dialysis advised target of 1.5 L fluid off not hit, 1.1 L removed due to low blood pressure.
[2024-08-02] MEDS: sodium chloride 0.9% 100 mL Bag 50 ML IV (20:15)
[2024-08-02 20:25] LABS: Glucose Point of Care 174 mg/dL (70-110)
[2024-08-02] MEDS: HYDROmorphone 1 mg/mL INJ 1 mL 0.4 MG IVP (20:55)
[2024-08-02] MEDS: norepinephrine 4 MG/250 ML BAG 45 MG IV (22:43)
[2024-08-02 23:24] LABS: Glucose Point of Care 229 mg/dL (70-110)
--- NOTE | 2024-08-02 23:40 | PC.NURSE ---
Contacted Dr. Pena in reference to patient's BG of 229. No new orders received.
[2024-08-03] VITALS (101 sets, daily range): BP systolic 88–171; BP diastolic 32–104; PULSE 57–98; RESP 9–28; TEMP 36.5–37.2; O2SAT 83–99
[2024-08-03] MEDS: pantoprazole 40 mg SDV IVP ×2 (00:38→11:38)
[2024-08-03 00:39] LABS: Hematocrit 30.1 % (36-47)
[2024-08-03 01:27] LABS: Glucose Point of Care 285 mg/dL (70-110)
--- NOTE | 2024-08-03 02:10 | PC.NURSE ---
Contacted Dr. Pena in reference to patient's upward trending BG, most recently 288. Received orders for 4 units insulin IVP once.
[2024-08-03 02:17] LABS: Glucose Point of Care 229 mg/dL (70-110)
[2024-08-03] MEDS: INSULIN REGULAR HUMAN IVP ×2 (02:21→02:44)
[2024-08-03] MEDS: HYDROmorphone 1 mg/mL INJ 1 mL 0.4 MG IVP ×3 (02:22→13:21)
--- NOTE | 2024-08-03 02:46 | PC.NURSE ---
Only 4 units IVP insulin have been given thus far. The dose was documented twice in the MAR to link the insulin over-ride with the insulin order.
[2024-08-03 03:40] LABS: Glucose Point of Care 164 mg/dL (70-110)
[2024-08-03 05:02] LABS: Basophils % 0.2 %; Eosinophils % 0.2 %; Hematocrit 25.5 % (36-47); Lymphocytes # 1.3 10^3/uL (0.8-4.8); Lymphocytes % 6.4 %; Mean Corpuscular HGB Conc 31.4 g/dL (30-55); Mean Corpuscular Hemoglobin 30.5 pg (27-33); Mean Corpuscular Volume 97.3 fl (85-98); Mean Platelet Volume 8.7 fL (7.4-10.4); Monocytes # 1.1 10^3/uL (0.2-0.9); Monocytes % 5.5 %; Neutrophils # 16.86 10^3/uL (1.8-7.7); Neutrophils % 85.8 %; Nucleated Red Blood Cells % 0.1 %; Platelet Count 246 10^3/cmm (157-399); Red Blood Count 2.62 10^6/uL (3.85-5.65); Red Cell Distribution Width 16.3 % (12.1-15.1); White Blood Count 19.64 10^3/uL (3.29-11.43)
[2024-08-03 05:21] LABS: Vancomycin Random 16.9 ug/mL (20.0-40.0)
[2024-08-03 05:22] LABS: Alanine Aminotransferase 14 U/L (0-33); Albumin Level 2.3 g/dL (3.5-5.2); Alkaline Phosphatase 91 U/L (35-105); Anion Gap 14.9 (5-19); Aspartate Amino Transferase 12 U/L (0-32); Blood Urea Nitrogen 24 mg/dL (8-23); Calcium 7.3 mg/dL (8.5-10.5); Carbon Dioxide 24 mmol/L (22-29); Chloride 102 mmol/L (98-107); Creatinine Clr Calc Pharmacy 11.3234; Globulin 1.8 g/dL (1.3-4.6); Glucose 129 mg/dL (65-115); Osmolality Calculated 290 mOsm/kg (285-295); Potassium 3.9 mmol/L (3.5-5.1); Sodium 137 mmol/L (136-145); Total Bilirubin 0.4 mg/dL (0.15-1.2); Total Protein 4.1 g/dL (6.6-8.7)
[2024-08-03 05:53] LABS: Glucose Point of Care 116 mg/dL (70-110)
[2024-08-03] MEDS: lanolin oint 7 gm 1 APPLIC TOPICAL (06:31)
[2024-08-03] MEDS: amiodarone 200 mg Tablet 100 MG PO (08:27)
[2024-08-03] MEDS: sevelamer 800 mg Tablet 1600 MG PO (08:28)
[2024-08-03] MEDS: levothyroxine 100 mcg Tablet PO (08:28)
[2024-08-03] MEDS: b-complex-vitamin c Tablet 1 EACH PO (08:29)
[2024-08-03 08:56] LABS: Glucose Point of Care 123 mg/dL (70-110)
--- NOTE | 2024-08-03 09:06 | P.PN_ITS ---
Subjective 2 Subjective: Patient seen at bedside this morning. Resting comfortably. No overnight events. Patient states that right heel is becoming more tender but manageable. Vitals/I&O/Wt Last Vital Signs Temp 98.9 F 08/03/24 08:00 Pulse 89 08/03/24 08:45 Resp 15 08/03/24 08:45 BP 136/45 08/03/24 08:45 Pulse Ox 83 L 08/03/24 08:45 O2 Del Method Room Air 08/03/24 08:16 08/02/24 08/03/24 08/03/24 22:59 06:59 14:59 Intake Total 1128.875 / 1228.875 115.58 / 1344.455 150 / 150 Output Total 1593 / 1593 500 / 2093 Balance -464.125 / -364.125 -384.42 / -748.545 150 / 150 Weight last 48 hrs Weight 177 lb 7.554 oz Weight 174 lb 2.643 oz Weight 187 lb 6.287 oz Weight 167 lb Physical Exam 2 Narrative: BELOW IS A FOCUSED LOWER EXTREMITY EXAM GENERAL: A&O x 3 VASCULAR: DP/PT pulses nonpalpable to right lower extremity DERMATOLOGICAL: Status post debridement right heel decubitus ulceration calcaneus exposed. Hemostasis noted. No active purulence MUSCULOSKELETAL: Tenderness with palpation of right posterior heel at site of eschar NEUROLOGICAL: Neurological sensation to the affected foot and ankle is present through L4-S1 dermatomes with no hyper/hypoesthesias, negative Tinel or Valleix's sign Urinary Catheter Management: Corral: Cath Placed During This Visit: yes Reason for Continuing Indwelling Catheter: Accurate Measurement of Urinary Output in Critically Ill Patients Urinary Catheter Date of Insertion: 08/01/24 Urinary Catheter Time of Insertion: 16:53 Data 08/03/24 04:34 08/03/24 04:34 Micro: Microbiology 08/02/24 15:30 Occult Blood (FIT) - Final Stool Routine Collection 08/02/24 11:00 Gram Stain - Final Other Source 08/01/24 16:42 Urine Culture - Preliminary Urine,Clean Catch 08/01/24 20:11 Gram Stain - Final Peritoneal Fluid 08/01/24 07:32 Blood Culture - Preliminary Blood NEGATIVE TO DATE 08/01/24 07:26 Blood Culture - Preliminary Blood NEGATIVE TO DATE A&P Assessment and plan (1) Decubitus ulcer of heel, unstageable: (2) Osteomyelitis: Plan -Necrotic right decubitus heel ulceration -Labs and vitals reviewed -WBC 22.47-->19.64 -ESR N/A -CRP 76 -VSS -Cultures: Wound cultures GPC's in pairs and clusters preliminary -Abx vancomycin/meropenem -Diet: Okay for diet from podiatry standpoint -Status post right heel decubitus debridement DOS 08/02/2024. Doing well. Calcaneus exposed. Patient will require long-term IV antibiotic therapy and aggressive wound care -Pain Mgmt: Per primary team -Weight bearing: Weightbearing as tolerated right lower extremity. Prevalon boots while at rest -Dressings: Saline wet-to-dry daily. -Continue current Abx therapy until ID and Sensitivity results -Trend labs -Discharge plan: Recommend discharge on long-term IV antibiotic therapy. Patient is to follow-up with wound care in the outpatient setting -Podiatry will continue to round on patient daily and provide recommendations Attestations 2 Medical Necessity Statement*: See hospitalist note Coding Level of Care Code Acute Code for [facility] Fwd Diagnoses Decubitus ulcer of heel, unstageable L89.600 Osteomyelitis M86.9
--- NOTE | 2024-08-03 09:55 | P.PN_ITS ---
Subjective 2 Subjective: The patient is weak and lethargic. The patient had debridement of her heel yesterday. The patient had a right sided IJ permacath placed. Patient had her Tenckhoff catheter removed. The patient had question of GI bleed or bloody stools yesterday and required significant amount of pressors to get through dialysis yesterday. Medications: Reviewed: Yes Medication Review Details: Current Medications Acetaminophen (Acetaminophen 325 Mg Tablet) 650 mg PO Q6H PRN PRN Reason: Mild/Mod Pain Or Temp >/= 101 Last Admin: 08/02/24 04:23 Dose: 650 mg Amiodarone HCl (Amiodarone 200 Mg Tablet) 100 mg PO DAILY NIKO Last Admin: 08/03/24 08:27 Dose: 100 mg Atorvastatin Calcium (Atorvastatin 40 Mg Tablet) 40 mg PO QPM NIKO Last Admin: 08/02/24 18:16 Dose: Not Given Hydromorphone HCl (Hydromorphone 1 Mg/Ml Inj 1 Ml) 0.4 mg IVP Q4H PRN PRN Reason: PAIN Last Admin: 08/03/24 09:19 Dose: 0.4 mg Norepinephrine Bitartrate (Levophed) 4 mg in 250 mls @ 0 mls/hr IV .Q0M NIKO; Protocol Last Titration: 08/03/24 02:23 Dose: 2 mcg/min, 7.5 mls/hr Lanolin (Lanolin Oint 7 Gm) 1 applic TOPICAL PRN PRN PRN Reason: DRYNESS Last Admin: 08/03/24 06:31 Dose: 1 applic Levothyroxine Sodium (Levothyroxine 100 Mcg Tablet) 100 mcg PO DAILY NIKO Last Admin: 08/03/24 08:28 Dose: 100 mcg Meropenem (Meropenem 500 Mg Sdv) 500 mg IVP Q24H NIKO; Protocol Last Admin: 08/02/24 12:16 Dose: 500 mg Multivitamins (Z-Gigomcj-Fzfrrqn C Tablet) 1 each PO DAILY NIKO Last Admin: 08/03/24 08:29 Dose: 1 each Ondansetron HCl (Ondansetron 2 Mg/Ml Sdv 2 Ml) 4 mg IVP Q6H PRN PRN Reason: vomiting, or N/V if npo Pantoprazole Sodium (Pantoprazole 40 Mg Sdv) 40 mg IVP Q12H NIKO Last Admin: 08/03/24 00:38 Dose: 40 mg Sevelamer Carbonate (Sevelamer 800 Mg Tablet) 1,600 mg PO TID [facility] Last Admin: 08/03/24 08:28 Dose: 1,600 mg Sodium Chloride (Sodium Chloride 0.9% 100 Ml Bag) 50 ml IV PRN PRN PRN Reason: Blood transfusion prime and flush Stop: 08/03/24 17:24 Last Admin: 08/02/24 20:15 Dose: 50 ml Vancomycin HCl (Vancomycin 1,000 Mg Sdv (Pharmacy Mix)) 0 mg XX PRN PRN PRN Reason: Pharmacy to Dose Vitals/I&O/Wt Last Vital Signs Temp 98.9 F 08/03/24 08:00 Pulse 89 08/03/24 08:45 Resp 15 08/03/24 08:45 BP 136/45 08/03/24 08:45 Pulse Ox 83 L 08/03/24 08:45 O2 Del Method Room Air 08/03/24 08:16 08/02/24 08/03/24 08/03/24 22:59 06:59 14:59 Intake Total 1128.875 / 1228.875 115.58 / 1344.455 150 / 150 Output Total 1593 / 1593 500 / 2093 Balance -464.125 / -364.125 -384.42 / -748.545 150 / 150 Weight last 48 hrs Weight 80.5 kg Weight 79 kg Weight 85 kg Weight 75.75 kg Physical Exam 2 Narrative: Comfortable in bed no apparent distress. Vital signs noted. Blood pressure on low side of normnal - of pressors HEENT normocephalic atraumatic Neck is supple. Lungs are clear to auscultation. Heart is regular +HSM Abdomen is soft, tender, poor to minimal bowel sounds. Peritoneal dialysis catheter removed Extremities have no edema, right heel bandaged Neuro -lethargic, responsive, weak. rt ij PC Urinary Catheter Management: Corral: Cath Placed During This Visit: yes Reason for Continuing Indwelling Catheter: Accurate Measurement of Urinary Output in Critically Ill Patients Urinary Catheter Date of Insertion: 08/01/24 Urinary Catheter Time of Insertion: 16:53 Data 08/03/24 04:34 08/03/24 04:34 Micro: Microbiology 08/02/24 15:30 Occult Blood (FIT) - Final Stool Routine Collection 08/02/24 11:00 Gram Stain - Final Other Source 08/01/24 16:42 Urine Culture - Preliminary Urine,Clean Catch 08/01/24 20:11 Gram Stain - Final Peritoneal Fluid 08/01/24 07:32 Blood Culture - Preliminary Blood NEGATIVE TO DATE 08/01/24 07:26 Blood Culture - Preliminary Blood NEGATIVE TO DATE A&P Assessment and plan (1) ESRD (end stage renal disease) on dialysis: 84-year-old lady ESRD- transitioned from PD to HD- plan HD tomorrow 1. Heel ulcer antibiotics as per medicine. s/p debridement Aug 02. 2. ID patient is grown multiple different bacteria such as Enterobacter cloacae and Klebsiella UTI appears like her peritoneal dialysis fluid had Pseudomonas and Staphylococcus hominis. Patient was on multiple antibiotics at this time the patient will get meropenem and vancomycin which I feel will be appropriate. PD catheter removed. CRP of 76 consistent with infection. Albumin of 2.4 consistent with infection Patient's PD fluid consistent with peritonitis. Given the fact that she was on multiple antibiotics. We removed her Tenckhoff catheter. Please give appropriate antibiotics. 3. Hypotension improved. Blood pressure now normal. monitor for infections 4. Leukocytosis likely from multiple infections. 5. Anemia continue Epogen. Please note recent iron saturation of 97% and ferritin of 2000 please do not give any iron. 6. Hyponatremia likely from ESRD and infection. Improved with dialysis. 7. Hypoglycemia improved 8. monitor electrolytes PTH 216 is acceptable. 10. Patient has anemia start Epogen. The patient was seen examined using audiovisual equipment with the aid of a nurse. Plan see above Attestations 2 Medical Necessity Statement*: esrd, peritonitis, heel ulcer Time Spent in Patient Care: 16 - 35 minutes (>than 50% of time sp ent in counselling and/or direct pt care on unit) . Coding Level of Care Code Acute Code for [facility] Fwd Diagnoses ESRD (end stage renal disease) on dialysis N18.6; Z99.2
--- NOTE | 2024-08-03 11:34 | P.PN_ITS ---
Subjective 2 Subjective: Luiza reports she feels okay this morning. From my understanding her stooling pattern is decreased. Surgery was notified yesterday regarding concern of GI bleed, and plan on endoscopy tomorrow. She denies any abdominal pain. Did undergo hemodialysis yesterday, required norepinephrine, this is since tapered off. Medications: Reviewed: Yes Vitals/I&O/Wt Last Vital Signs Temp 98.9 F 08/03/24 08:00 Pulse 89 08/03/24 08:45 Resp 15 08/03/24 08:45 BP 136/45 08/03/24 08:45 Pulse Ox 83 L 08/03/24 08:45 O2 Del Method Room Air 08/03/24 08:16 08/02/24 08/03/24 08/03/24 22:59 06:59 14:59 Intake Total 1128.875 / 1228.875 115.58 / 1344.455 150 / 150 Output Total 1593 / 1593 500 / 2093 Balance -464.125 / -364.125 -384.42 / -748.545 150 / 150 Weight last 48 hrs Weight 80.5 kg Weight 79 kg Weight 85 kg Physical Exam 2 Narrative: General exam is a white female no distress Neck is supple Cardiovascular regular rate and rhythm Lungs clear no wheezing or crackles Abdomen no pain or tenderness, positive bowel sounds exam Corral noted Extremities no cyanosis clubbing. Cap refill good. Heel ulcer with dressing noted Urinary Catheter Management: Corral: Cath Placed During This Visit: yes Reason for Continuing Indwelling Catheter: Accurate Measurement of Urinary Output in Critically Ill Patients Urinary Catheter Date of Insertion: 08/01/24 Urinary Catheter Time of Insertion: 16:53 Data 08/03/24 04:34 08/03/24 04:34 Micro: Microbiology 08/02/24 15:30 Occult Blood (FIT) - Final Stool Routine Collection 08/02/24 11:00 Gram Stain - Final Other Source 08/01/24 16:42 Urine Culture - Preliminary Urine,Clean Catch 08/01/24 20:11 Gram Stain - Final Peritoneal Fluid 08/01/24 07:32 Blood Culture - Preliminary Blood NEGATIVE TO DATE 08/01/24 07:26 Blood Culture - Preliminary Blood NEGATIVE TO DATE A&P Assessment and plan (1) Sepsis: Patient presents with concern of sepsis. Site could be heel, peritonitis, UTI, or other abdominal pathology considering free air on CT. UTI also found. Peritoneal fluid demonstrates 542 WBCs with 83% polynucleur, suggestive of bacterial peritonitis Peritoneal gram stain reveal gram positive cocci in pairs and clusters Blood, urine, and peritoneal fluid culture results all pending. Urine preliminary no growth Chest x-ray demonstrates no obvious pneumonia on my read Continue broad-spectrum antibiotics consisting of vancomycin, meropenem. Meropenem is used secondary to penicillin allergy listed Note that she has had multiple resistant organisms in the past such as MRSA and Enterobacter Sepsis criteria met with borderline hypotension, hypothermia, leukocytosis, possible source, abnormal CT imaging, hypoglycemia. She required institution of norepinephrine during dialysis yesterday, likely secondary to dialysis as well as blood loss. This is since been tapered off. I do believe her sepsis is improving. (2) Foot ulcer, right: IV antibiotics consisting of vancomycin and meropenem Postoperative day #1 status postdebridement, awaiting cultures (3) Hypoglycemia associated with type 2 diabetes mellitus: Resolved (4) ESRD (end stage renal disease) on dialysis: Nephrology consultation appreciated Peritoneal dialysis catheter was removed and tunneled catheter placed yesterday, 11/12 CBC, CMP daily (5) Hypomagnesemia: Resolved Plan GI bleed. Associated with acute blood loss anemia. Transfusion of 1 unit packed red blood cells yesterday. Protonix 40 mg IV every 12 hours. Stop aspirin. Stop heparin. SCDs for DVT prophylaxis. Endoscopy planned tomorrow. Recent past history of peritonitis, UTI Deconditioning, severe weakness. PT consult Peripheral vascular disease Full code SCDs for DVT prophylaxis, hold heparin secondary to GI bleed Attestations 2 Medical Necessity Statement*: Needs continued hospital stay secondary to GI bleed, acute blood loss anemia, sepsis, osteomyelitis, peritonitis, etc. Critical Care Time: The high probability of a clinically significant, sudden or life threatening deterioration of the patient's [GI, renal, infectious disease] system(s) required my full and direct attention, intervention and personal management. The critical care time is as shown. This time is in addition to time spent performing any reported procedures but includes the following: [x] Data and vital sign review and interpretation [x] Patient assessment, examination and intervention [x] Documentation [x] Medication orders and management Critical Care Time (min): 39 Coding Level of Care Code Critical Care >/= 30 minutes Critical care time (in minutes): 39 The high probability of a clinically significant, sudden or life threatening deterioration, as referenced in this documentation, required my full and direct attention, intervention and personal management. The critical care time shown is in addition to time spent performing any reported separately billable procedures and includes the following: [x] Data and vital sign review and interpretation [x ] Patient assessment, examination and intervention [x] Medication orders and management [x] Patient/Family updates as able [x] Care Coordination and Documentation. Diagnoses Sepsis A41.9 Foot ulcer, right L97.519 Hypoglycemia associated with type 2 diabetes mellitus E11.649 ESRD (end stage renal disease) on dialysis N18.6; Z99.2 Hypomagnesemia E83.42
[2024-08-03] MEDS: meropenem 500 mg SDV IVP (11:38)
--- NOTE | 2024-08-03 13:12 | PC.SOCIAL ---
IMM Updated Updated pt & on IMM. No questions voiced. Provided pt a copy. Initialed, dated, & timed a copy & placed in chart.
[2024-08-03 14:27] LABS: Hematocrit 22.9 % (36-47)
[2024-08-03 20:21] LABS: Glucose Point of Care 127 mg/dL (70-110)
[2024-08-03 21:03] LABS: Hematocrit 29.4 % (36-47)
[2024-08-03] MEDS: bisacodyl 5 mg Tablet 20 MG PO (22:36)
[2024-08-03] MEDS: magnesium citrate Btl 296 mL 592 ML PO (22:38)
[2024-08-04] VITALS (50 sets, daily range): BP systolic 107–167; BP diastolic 33–92; PULSE 56–78; RESP 9–23; TEMP 36.6–37.1; O2SAT 86–99
[2024-08-04] MEDS: pantoprazole 40 mg SDV IVP ×3 (01:28→23:42)
[2024-08-04 04:57] LABS: Glucose Point of Care 178 mg/dL (70-110)
[2024-08-04 05:14] LABS: Basophils # 0.1 10^3/uL (0.0-0.1); Basophils % 0.4 %; Eosinophils # 0.3 10^3/uL (0.0-0.8); Eosinophils % 1.7 %; Hematocrit 29.9 % (36-47); Lymphocytes # 1.6 10^3/uL (0.8-4.8); Lymphocytes % 9.8 %; Mean Corpuscular HGB Conc 32.1 g/dL (30-55); Mean Corpuscular Hemoglobin 30.8 pg (27-33); Mean Corpuscular Volume 95.8 fl (85-98); Mean Platelet Volume 8.4 fL (7.4-10.4); Monocytes % 6.1 %; Neutrophils # 13.09 10^3/uL (1.8-7.7); Neutrophils % 79.8 %; Nucleated Red Blood Cells % 0.1 %; Platelet Count 221 10^3/cmm (157-399); Red Blood Count 3.12 10^6/uL (3.85-5.65); Red Cell Distribution Width 16.9 % (12.1-15.1)
[2024-08-04 05:38] LABS: Alanine Aminotransferase 16 U/L (0-33); Albumin Level 2.3 g/dL (3.5-5.2); Alkaline Phosphatase 85 U/L (35-105); Anion Gap 14.7 (5-19); Aspartate Amino Transferase 16 U/L (0-32); Blood Urea Nitrogen 26 mg/dL (8-23); Calcium 7.8 mg/dL (8.5-10.5); Carbon Dioxide 24 mmol/L (22-29); Chloride 103 mmol/L (98-107); Creatinine Clr Calc Pharmacy 12.1061; Glucose 149 mg/dL (65-115); Magnesium 2.3 mg/dL (1.7-2.3); Osmolality Calculated 294 mOsm/kg (285-295); Phosphorus 3.5 mg/dL (2.5-4.5); Potassium 3.7 mmol/L (3.5-5.1); Sodium 138 mmol/L (136-145); Total Bilirubin 0.6 mg/dL (0.15-1.2); Total Protein 4.3 g/dL (6.6-8.7)
--- NOTE | 2024-08-04 07:43 | PM.PN ---
Subjective Subjective: The patient was seen and examined. The patient received another unit of blood yesterday. His stool is now brown. She is about to start dialysis. She has no nausea vomiting or diarrhea denies shortness of breath. Still with heel pain. Medications: Reviewed: Yes Medication Review Details: Current Medications Acetaminophen (Acetaminophen 325 Mg Tablet) 650 mg PO Q6H PRN PRN Reason: Mild/Mod Pain Or Temp >/= 101 Last Admin: 08/02/24 04:23 Dose: 650 mg Amiodarone HCl (Amiodarone 200 Mg Tablet) 100 mg PO DAILY NIKO Last Admin: 08/03/24 08:27 Dose: 100 mg Atorvastatin Calcium (Atorvastatin 40 Mg Tablet) 40 mg PO QPM NIKO Last Admin: 08/03/24 16:49 Dose: Not Given Hydromorphone HCl (Hydromorphone 1 Mg/Ml Inj 1 Ml) 0.4 mg IVP Q4H PRN PRN Reason: PAIN Last Admin: 08/03/24 13:21 Dose: 0.4 mg Norepinephrine Bitartrate (Levophed) 4 mg in 250 mls @ 0 mls/hr IV .Q0M NIKO; Protocol Last Titration: 08/03/24 07:00 Dose: 0 mcg/min, 0 mls/hr Lanolin (Lanolin Oint 7 Gm) 1 applic TOPICAL PRN PRN PRN Reason: DRYNESS Last Admin: 08/03/24 06:31 Dose: 1 applic Levothyroxine Sodium (Levothyroxine 100 Mcg Tablet) 100 mcg PO DAILY NIKO Last Admin: 08/03/24 08:28 Dose: 100 mcg Meropenem (Meropenem 500 Mg Sdv) 500 mg IVP Q24H NIKO; Protocol Last Admin: 08/03/24 11:38 Dose: 500 mg Multivitamins (C-Jllpkia-Omblxdu C Tablet) 1 each PO DAILY NIKO Last Admin: 08/03/24 08:29 Dose: 1 each Ondansetron HCl (Ondansetron 2 Mg/Ml Sdv 2 Ml) 4 mg IVP Q6H PRN PRN Reason: vomiting, or N/V if npo Pantoprazole Sodium (Pantoprazole 40 Mg Sdv) 40 mg IVP Q12H NIKO Last Admin: 08/04/24 01:28 Dose: 40 mg Sevelamer Carbonate (Sevelamer 800 Mg Tablet) 800 mg PO TID [facility] Last Admin: 08/03/24 21:26 Dose: Not Given Sodium Chloride (Sodium Chloride 0.9% 100 Ml Bag) 50 ml IV PRN PRN PRN Reason: Blood transfusion prime and flush Stop: 08/04/24 14:56 Vancomycin HCl (Vancomycin 1,000 Mg Sdv (Pharmacy Mix)) 0 mg XX PRN PRN PRN Reason: Pharmacy to Dose Vitals/I&O/Wt Last Vital Signs Temp 97.9 F 08/04/24 04:00 Pulse 66 08/04/24 06:00 Resp 11 L 08/04/24 04:30 BP 152/50 08/04/24 04:45 Pulse Ox 92 08/04/24 04:30 O2 Del Method Room Air 08/04/24 04:00 08/03/24 08/04/24 08/04/24 22:59 06:59 14:59 Intake Total 250 / 434.625 Output Total 250 / 250 300 / 550 Balance 0 / 184.625 -300 / -115.375 Weight last 48 hrs Weight 80.5 kg Weight 80.5 kg Weight 79 kg Physical Exam Narrative: Comfortable in bed no apparent distress. Vital signs noted. off of pressors HEENT normocephalic atraumatic Neck is supple. Lungs are clear to auscultation. Heart is regular +HSM Abdomen is soft, tender, poor to minimal bowel sounds. Peritoneal dialysis catheter removed Extremities have no edema, right heel bandaged Neuro -a,a, o x 3, moves all extremities rt ij PC Urinary Catheter Management: Corral: Cath Placed During This Visit: yes Reason for Continuing Indwelling Catheter: Accurate Measurement of Urinary Output in Critically Ill Patients Urinary Catheter Date of Insertion: 08/01/24 Urinary Catheter Time of Insertion: 16:53 Data 08/04/24 04:01 08/04/24 04:01 Micro: Microbiology 08/01/24 20:11 Gram Stain - Final Peritoneal Fluid Body Fluid Culture - Preliminary 08/02/24 11:00 Gram Stain - Final Other Source Wound Culture - Preliminary Gram Negative Rods 08/02/24 Unknown Anaerobic Culture - Preliminary Foot - Right 08/01/24 16:42 Urine Culture - Final Urine,Clean Catch A&P Assessment and plan (1) ESRD (end stage renal disease) on dialysis: 84-year-old lady ESRD- transitioned from PD to HD- repeat HD now, 3 k bath, up to 1 liter fluid removal 1. Heel ulcer antibiotics as per medicine. s/p debridement Aug 02. 2. ID patient is grown multiple different bacteria such as Enterobacter cloacae and Klebsiella UTI appears like her peritoneal dialysis fluid had Pseudomonas and Staphylococcus hominis. Patient was on multiple antibiotics at this time the patient will get meropenem and vancomycin which I feel will be appropriate. PD catheter removed. CRP of 76 consistent with infection. Albumin of 2.4 consistent with infection Patient's PD fluid consistent with peritonitis. Given the fact that she was on multiple antibiotics. We removed her Tenckhoff catheter. Please give appropriate antibiotics. 3. Hypotension improved. Blood pressure now normal. 4. Leukocytosis likely from multiple infections. wbc down to 16 5. Anemia continue Epogen. Please note recent iron saturation of 97% and ferritin of 2000 please do not give any iron. 6. Hyponatremia likely from ESRD and infection. Improved with dialysis. 7. Hypoglycemia improved 8. monitor electrolytes PTH 216 is acceptable. The patient was seen examined using audiovisual equipment with the aid of a nurse. Plan see above Attestations Medical Necessity Statement*: anemia, heal ulcer, peritonitis Time Spent in Patient Care: 16 - 35 minutes (>than 50% of time spent in counselling and/or direct pt care on unit). Coding Level of Care Code Acute Code for g Fwd Diagnoses ESRD (end stage renal disease) on dialysis N18.6; Z99.2
[2024-08-04] MEDS: amiodarone 200 mg Tablet 100 MG PO (08:48)
--- NOTE | 2024-08-04 08:56 | P.PN_ITS ---
Documented by User: Sergio Blanc 08/04/24 09:56 Subjective 2 Subjective: Patient is an 84 y.o. female on hospital day #4. She is post-op day #2 for heel ulcer debridement. She denies any notable overnight events. She noted her bowel movements are appearing less dark. She continues to endorse pain of the right foot at the debridement site. Nursing commented that she was unable to entirely complete her bowel prep for endoscopy which is being planned to workup suspicion for GI bleed. Medications: Reviewed: Yes Vitals/I&O/Wt Last Vital Signs Temp 98.1 F 08/04/24 07:49 Pulse 68 08/04/24 07:49 Resp 18 08/04/24 07:49 BP 134/55 08/04/24 07:49 Pulse Ox 92 08/04/24 04:30 O2 Del Method Room Air 08/04/24 04:00 08/03/24 08/04/24 08/04/24 22:59 06:59 14:59 Intake Total 250 / 434.625 Output Total 250 / 250 300 / 550 Balance 0 / 184.625 -300 / -115.375 Weight last 48 hrs Weight 177 lb 7.554 oz Weight 177 lb 7.554 oz Weight 174 lb 2.643 oz Physical Exam 2 Narrative: General: Drowsy, but awake and oriented. No acute distress. Cardiovascular: Regular rate and rhythm. Lungs: Clear to auscultation bilaterally. No wheezing or crackles. Abdomen: No pain or tenderness. Positive bowel sounds. : Corral noted. Extremities: No cyanosis or edema. Dressing with mario wrap of right foot noted. Capillary refill intact. Additional: Right internal jugular permacath noted. Urinary Catheter Management: Corral: Cath Placed During This Visit: yes Reason for Continuing Indwelling Catheter: Accurate Measurement of Urinary Output in Critically Ill Patients Urinary Catheter Date of Insertion: 08/01/24 Urinary Catheter Time of Insertion: 16:53 Data 08/04/24 04:01 08/04/24 04:01 Micro: Microbiology 08/01/24 20:11 Gram Stain - Final Peritoneal Fluid Body Fluid Culture - Preliminary 08/02/24 11:00 Gram Stain - Final Other Source Wound Culture - Preliminary Gram Negative Rods 08/02/24 Unknown Anaerobic Culture - Preliminary Foot - Right 08/01/24 16:42 Urine Culture - Final Urine,Clean Catch A&P Assessment and plan (1) Sepsis: Patient has displayed findings suggestive of sepsis. Multiple eligible infectious sources including heel ulcer, UTI, peritoneal infection, or other abdominal pathology considering free air on CT. Peritoneal fluid findings from 08/01 suggestive of bacterial peritonitis. Right foot ulcer tissue culture reveal gram negative rods. Anaerobic culture pending. Urine cultures negative. Blood and peritoneal fluid cultures negative to date. Continue vancomycin and meropenem. Meropenem is used secondary to penicillin allergy listed. Note that she has had multiple resistant organisms in the past such as MRSA and Enterobacter Sepsis criteria met with borderline hypotension, hypothermia, leukocytosis, possible source, abnormal CT imaging, hypoglycemia. She required institution of norepinephrine during dialysis 2 days ago, likely secondary to dialysis as well as blood loss. Has since been tapered off. I do believe her sepsis is improving. (2) Foot ulcer, right: Postoperative day #2 status post debridement Tissue cultures revealed gram negative rods Awaiting anaerobic culture Continue IV antibiotics of vancomycin and meropenem (3) GI bleed: Having dark, tarry stools. Associated with acute blood loss anemia. Required 2 pRBC transfusions over past 2 days. Epogen as directed by nephrology. Continue Protonix. Planning endoscopy for further evaluation. (4) ESRD (end stage renal disease) on dialysis: Nephrology consultation appreciated. On 08/02, peritoneal dialysis catheter was removed and right internal jugular permacath for hemodialysis was placed. New hemodialysis catheter has been successfully utilized. Undergoing her second session of hemodialysis this morning. CBC, CMP daily. (5) Hypoglycemia associated with type 2 diabetes mellitus: Resolved (6) Hypomagnesemia: Resolved Plan GI bleed. Associated with acute blood loss anemia. Transfusion of 2 units packed red blood cells over last 48hrs. Protonix 40 mg IV every 12 hours. Stop aspirin. Stop heparin. SCDs for DVT prophylaxis. Planning for endoscopy. Recent past history of peritonitis, UTI Deconditioning, severe weakness. PT consult Peripheral vascular disease Full code SCDs for DVT prophylaxis, hold heparin secondary to GI bleed Coding Level of Care Code 17704 Diagnoses Sepsis A41.9 Foot ulcer, right L97.519 GI bleed K92.2 ESRD (end stage renal disease) on dialysis N18.6; Z99.2 Hypoglycemia associated with type 2 diabetes mellitus E11.649 Hypomagnesemia E83.42 Time Spent (min) 35 Documented by User: Gabriele Rosales MD 08/04/24 10:01 Physical Exam 2 Urinary Catheter Management: Corral: Cath Placed During This Visit: yes Data 08/04/24 04:01 08/04/24 04:01 A&P Assessment and plan (1) Sepsis: (2) Foot ulcer, right: Postoperative day #2 status post debridement Tissue cultures revealed gram negative rods Awaiting anaerobic culture Continue IV antibiotics of vancomycin and meropenem Will need a prolonged course secondary to osteomyelitis present (3) GI bleed: Having dark, tarry stools. Associated with acute blood loss anemia. Required 2 pRBC transfusions over past 2 days. Epogen as directed by nephrology. Continue Protonix. Planning endoscopy for further evaluation. This is to be done today. (4) ESRD (end stage renal disease) on dialysis: Nephrology consultation appreciated. On 08/02, peritoneal dialysis catheter was removed and right tunneled hemodialysis catheter was placed. New hemodialysis catheter successfully utilized Scheduled to undergo hemodialysis this AM. CBC, CMP daily. (5) Hypoglycemia associated with type 2 diabetes mellitus: (6) Hypomagnesemia: Plan GI bleed. Associated with acute blood loss anemia. She has now received a total of 2 units of packed red blood cells during this hospital stay, with the last unit administered 08/03. Protonix 40 mg IV every 12 hours. Holding aspirin and heparin currently. SCDs for DVT prophylaxis. Endoscopy planned today Recent past history of peritonitis, UTI Deconditioning, severe weakness. PT consult Peripheral vascular disease Full code SCDs for DVT prophylaxis, hold heparin secondary to GI bleed Likely transfer out of ICU today, if no active bleeding. Attestations 2 Medical Necessity Statement*: Requires continued hospitalization for treatment of sepsis, osteomyelitis with IV antibiotics, exploration of GI bleed, multiple other complex medical problems. Diagnoses Sepsis A41.9 Foot ulcer, right L97.519 GI bleed K92.2 ESRD (end stage renal disease) on dialysis N18.6; Z99.2 Hypoglycemia associated with type 2 diabetes mellitus E11.649 Hypomagnesemia E83.42 Time Spent (min) 35
--- NOTE | 2024-08-04 09:21 | PC.HD ---
Due to a med/surg patient's need for urgent dialysis, Dr. Draper notified this RN to reduce this patient's treatment time by 30 minutes. Will attempt to remove original UF goal of 1000 mL as BP tolerates.
[2024-08-04] MEDS: HYDROmorphone 1 mg/mL INJ 1 mL 0.4 MG IVP ×2 (10:28→20:30)
[2024-08-04] MEDS: meropenem 500 mg SDV IVP (10:29)
[2024-08-04 10:56] LABS: Glucose Point of Care 101 mg/dL (70-110)
--- NOTE | 2024-08-04 12:39 | P.ANESUD_ITS ---
Pre-Anesthetic Update Pre-Anesthetic Assessment: Date of Surgery/Procedure: 08/04/24 Preop Zohra gnosis: Infected heel/catheter Proposed Procedure: Operation Date: 08/02/24 11:10 Proposed Procedures p Dialysis Catheter Insertion Permacath Insertion(Not Applicable) - Carter Kwok DO s Peritoneal Catheter Removal(Not Applicable) - Carter Kwok DO Operation Date: 08/02/24 13:00 Proposed Procedures p Right heel wound incision bone cortex(Right) - Justo Garg DPM Operation Date: 08/04/24 12:35 Proposed Procedures p EGD(Not Applicable) - Carter Kwok DO s Colonoscopy(Not Applicable) - Carter Kwok DO Changes from Pre-Anesthetic Assessment: Patient recently underwent wound debridement for concern of osteomyelitis. Did well with MAC anesthetic. WBC 16.4. Sodium improved NA 138. Plan for MAC anesthetic Labs Last 48hrs: Short CBC 08/02/24 08/03/24 08/03/24 Range/Units 17:01 00:29 04:34 WBC 19.64 H (3.29-11.43) 10^ 3/uL Hgb 7.30 L 9.30 L 8.00 L (11.27-16.99) g/ dL Hct 23.1 L 30.1 L D 25.5 L (36-47) % MCV 97.3 (85-98) fl Plt Count 246 (157-399) 10^3/c mm Neut % (Auto) 85.8 % Neut # (Auto) 16.86 H (1.8-7.7) 10^3/u L 08/03/24 08/03/24 08/04/24 Range/Units 14:09 20:11 04:01 WBC 16.40 H (3.29-11.43) 10^ 3/uL Hgb 7.30 L 9.50 L D 9.60 L (11.27-16.99) g/ dL Hct 22.9 L 29.4 L 29.9 L (36-47) % MCV 95.8 (85-98) fl Plt Count 221 (157-399) 10^3/c mm Neut % (Auto) 79.8 % Neut # (Auto) 13.09 H (1.8-7.7) 10^3/u L BMP 08/03/24 08/04/24 04:34 04:01 Sodium 137 138 Potassium 3.9 3.7 Chloride 102 103 Carbon Dioxide 24 24 BUN 24 H 26 H Creatinine 3.6 H 3.4 H Glucose 129 H 149 H Calcium 7.3 L 7.8 L Liver Function 08/03/24 08/04/24 Range/Units 04:34 04:01 Total Bilirubin 0.4 0.6 (0.15-1.2) mg/dL AST 12 16 (0-32) U/L ALT 14 16 (0-33) U/L Alkaline Phosphata se 91 85 (35-105) U/L Albumin 2.3 L 2.3 L (3.5-5.2) g/dL Blood Bank 08/02/24 17:42 Blood Type A Positive Rho(D) Type Rh positive Antibody Screen Negative Vitals: Temperature 98.6 F 08/04/24 11:24 Temperature Source Oral 08/04/24 04:00 Pulse Rate 73 08/04/24 11:24 Pulse Rhythm Regular 08/03/24 20:00 Pulse Strength 3+ Normal 08/04/24 08:00 Respiratory Rate 18 08/04/24 11:24 Respiratory Effort Spontaneous, Non- Labored 08/04/24 10:28 Respiratory Depth Normal 08/04/24 10:28 Respiratory Patter n Normal 08/03/24 02:22 Blood Pressure 139/92 08/04/24 11:24 Blood Pressure Zunilda n 76 08/04/24 09:30 Blood Pressure Pos ition Semi Fowlers 08/02/24 21:45 Pulse Oximetry 96 08/04/24 10:54 Oxygen Delivery Me thod Room Air 08/04/24 10:54 Sepsis Recent Feve r Within 48 Hours No 08/01/24 05:21 Cardiac Studies: Echocardiogram Limited Views 09/26/20 Echocardiogram Ultrasound 08/03/20 Transesophageal Echocardiogram 10/05/20
--- NOTE | 2024-08-04 12:56 | PC.OT ---
OT TREATMENT ATTEMPTED. PATIENT REPORTS SIGNIFICANT STOMACH PAIN AND IS AWAITING HER SCOPE AT THIS TIME. PATIENT DECLINES PARTICIPATION TODAY.
--- NOTE | 2024-08-04 13:17 | P.PN_ITS ---
Vitals/I&O/Wt Last Vital Signs Temp 98.6 F 08/04/24 11:24 Pulse 73 08/04/24 11:24 Resp 18 08/04/24 11:24 BP 139/92 08/04/24 11:24 Pulse Ox 96 08/04/24 10:54 O2 Del Method Room Air 08/04/24 10:54 08/03/24 08/04/24 08/04/24 22:59 06:59 14:59 Intake Total 250 / 434.625 500 / 500 Output Total 250 / 250 300 / 550 1131 / 1131 Balance 0 / 184.625 -300 / -115.375 -631 / -631 Weight last 48 hrs Weight 174 lb 2.643 oz Weight 177 lb 7.554 oz Weight 177 lb 7.554 oz Weight 174 lb 2.643 oz Physical Exam 2 Urinary Catheter Management: Corral: Cath Placed During This Visit: yes Reason for Continuing Indwelling Catheter: Accurate Measurement of Urinary Output in Critically Ill Patients Urinary Catheter Date of Insertion: 08/01/24 Urinary Catheter Time of Insertion: 16:53 Data 08/04/24 04:01 08/04/24 04:01 Micro: Microbiology 08/02/24 11:00 Gram Stain - Final Other Source Wound Culture - Preliminary Gram Negative Rods 08/01/24 20:11 Gram Stain - Final Peritoneal Fluid Body Fluid Culture - Preliminary 08/02/24 Unknown Anaerobic Culture - Preliminary Foot - Right 08/01/24 16:42 Urine Culture - Final Urine,Clean Catch A&P Assessment and plan (1) Peritoneal dialysis catheter mechanical complication: (2) SBP (spontaneous bacterial peritonitis): (3) ESRD (end stage renal disease) on dialysis: (4) GI bleed: (5) Acute blood loss anemia: Plan EGD and colonoscopy The risks and benefits of the procedure, including bleeding, infection, intestinal perforation requiring surgery, missed lesion were explained to the patient. The patient is understanding of the risks and wishes to proceed. Attestations 2 Medical Necessity Statement*: Per primary Coding Level of Care Code Acute Code for Chg Fwd Diagnoses Peritoneal dialysis catheter mechanical complication T85.691A SBP (spontaneous bacterial peritonitis) K65.2 ESRD (end stage renal disease) on dialysis N18.6; Z99.2 GI bleed K92.2 Acute blood loss anemia D62
--- NOTE | 2024-08-04 14:17 | ANE.PACU2 ---
Inpatient post-anesthesia follow up: Airway intact: Yes Vital signs: Temperature 98.2 F Pulse Rate 79 Respiratory Rate 16 Blood Pressure 162/79 Pulse Oximetry 92 Oxygen Delivery Me thod [ Room Air Current Rate & Del imer] Oxygen Delivery Me thod Room Air Oxygen Flow Rate Fraction of Inspir ed Oxygen Hydration adequate: Yes Nausea and vomiting: No Pain level: 1 Mental status: Baseline
[2024-08-04] MEDS: VANCOMYCIN ADD-Vantage 750 MG in 0.9% NaCl ADD-Vantage 250 ML 250 MG IV (14:59)
[2024-08-04] MEDS: sodium chloride 0.9% 1,000 ML 30 ML IV (15:00)
[2024-08-04] MEDS: HYDROcodone-acetaminophen 5-325 mg Tablet 1 TAB PO ×2 (15:19→18:19)
--- NOTE | 2024-08-04 17:19 | PC.NURSE ---
Assumed care of pt from ICU at 1719
[2024-08-04] MEDS: atorvastatin 40 mg Tablet PO (17:32)
[2024-08-04] MEDS: sevelamer 800 mg Tablet PO (20:31)
[2024-08-05] VITALS (8 sets, daily range): BP systolic 134–162; BP diastolic 38–79; PULSE 64–98; RESP 16–19; TEMP 36.6–37.2; O2SAT 90–99
[2024-08-05 05:45] LABS: Basophils # 0.1 10^3/uL (0.0-0.1); Basophils % 0.4 %; Eosinophils # 0.4 10^3/uL (0.0-0.8); Eosinophils % 2.3 %; Hematocrit 27.1 % (36-47); Mean Corpuscular HGB Conc 32.1 g/dL (30-55); Mean Corpuscular Hemoglobin 31.5 pg (27-33); Mean Corpuscular Volume 98.2 fl (85-98); Mean Platelet Volume 8.4 fL (7.4-10.4); Monocytes # 1.2 10^3/uL (0.2-0.9); Neutrophils # 12.48 10^3/uL (1.8-7.7); Neutrophils % 76.2 %; Nucleated Red Blood Cells % 0.2 %; Platelet Count 185 10^3/cmm (157-399); Red Blood Count 2.76 10^6/uL (3.85-5.65); Red Cell Distribution Width 17.1 % (12.1-15.1); White Blood Count 16.38 10^3/uL (3.29-11.43)
[2024-08-05 06:07] LABS: Alanine Aminotransferase 17 U/L (0-33); Albumin Level 2.2 g/dL (3.5-5.2); Alkaline Phosphatase 76 U/L (35-105); Anion Gap 15.8 (5-19); Aspartate Amino Transferase 18 U/L (0-32); Blood Urea Nitrogen 12 mg/dL (8-23); Carbon Dioxide 23 mmol/L (22-29); Chloride 102 mmol/L (98-107); Globulin 2.5 g/dL (1.3-4.6); Glucose 95 mg/dL (65-115); Magnesium 2.1 mg/dL (1.7-2.3); Osmolality Calculated 284 mOsm/kg (285-295); Potassium 3.8 mmol/L (3.5-5.1); Sodium 137 mmol/L (136-145); Total Bilirubin 0.3 mg/dL (0.15-1.2); Total Protein 4.7 g/dL (6.6-8.7)
[2024-08-05 06:36] LABS: Glucose Point of Care 98 mg/dL (70-110)
--- NOTE | 2024-08-05 07:46 | P.PN_ITS ---
Subjective 2 Subjective: Patient seen at bedside this morning. Resting comfortably. States that pain is tender but manageable. Vitals/I&O/Wt Last Vital Signs Temp 97.8 F 08/05/24 04:00 Pulse 64 08/05/24 05:12 Resp 17 08/05/24 04:00 BP 146/67 08/05/24 04:00 Pulse Ox 96 08/05/24 04:00 O2 Del Method Room Air 08/04/24 20:00 08/04/24 08/05/24 08/05/24 22:59 06:59 14:59 Intake Total 469.875 / 969.875 120 / 1089.875 Output Total 300 / 1431 100 / 1531 Balance 169.875 / -461.125 20 / -441.125 Weight last 48 hrs Weight 184 lb 12.8 oz Weight 174 lb 2.643 oz Weight 177 lb 7.554 oz Physical Exam 2 Narrative: BELOW IS A FOCUSED LOWER EXTREMITY EXAM GENERAL: A&O x 3 VASCULAR: DP/PT pulses nonpalpable to right lower extremity DERMATOLOGICAL: Status post debridement right heel decubitus ulceration calcaneus exposed. Hemostasis noted. No active purulence. No erythema. Early eschar formation MUSCULOSKELETAL: Tenderness with palpation of right posterior heel at site of eschar NEUROLOGICAL: Neurological sensation to the affected foot and ankle is present through L4-S1 dermatomes with no hyper/hypoesthesias, negative Tinel or Valleix's sign Urinary Catheter Management: Corral: Cath Placed During This Visit: yes Reason for Continuing Indwelling Catheter: Other Urinary Catheter Date of Insertion: 08/01/24 Urinary Catheter Time of Insertion: 16:53 Data 08/05/24 05:14 08/05/24 05:14 Micro: Microbiology 08/02/24 11:00 Gram Stain - Final Other Source Wound Culture - Preliminary Gram Negative Rods 08/01/24 20:11 Gram Stain - Final Peritoneal Fluid Body Fluid Culture - Preliminary 08/02/24 Unknown Anaerobic Culture - Preliminary Foot - Right A&P Assessment and plan (1) Decubitus ulcer of heel, unstageable: (2) Osteomyelitis: Plan -Necrotic right decubitus heel ulceration -Labs and vitals reviewed -WBC 16.38 -ESR N/A -CRP 76 -VSS -Cultures: Right heel wound gram-negative rods -Abx vancomycin/meropenem -Diet: Okay for diet from podiatry standpoint -Status post right heel decubitus debridement DOS 08/02/2024. Doing well. Calcaneus exposed. Patient will require long-term IV antibiotic therapy and aggressive wound care. No further intervention by podiatry during this admission -Pain Mgmt: Per primary team -Weight bearing: Weightbearing as tolerated right lower extremity. Prevalon boots while at rest -Dressings: Saline wet-to-dry daily. -Continue current Abx therapy until ID and Sensitivity results -Trend labs -Discharge plan: Recommend discharge on long-term IV antibiotic therapy. Wound care will consist of daily Betadine wet-to-dry. Patient is to follow-up with wound care in the outpatient setting -Podiatry will continue to round on patient daily and provide recommendations Attestations 2 Medical Necessity Statement*: See hospitalist note Coding Level of Care Code Acute Code for Chg Fwd Diagnoses Decubitus ulcer of heel, unstageable L89.600 Osteomyelitis M86.9
--- NOTE | 2024-08-05 08:14 | P.PN_ITS ---
Documented by User: Sergio Blanc 08/05/24 08:35 Subjective 2 Subjective: Patient is an 84 y.o. female on hospital day #5. She is post-op day #3 for heel ulcer debridement. Underwent EGD and colonoscopy yesterday with polypectomies performed during both. Her bowel movements were becoming less dark prior to these procedures, but she has not had a bowel movement since. Her heel is causing her pretty significant pain this morning. Otherwise no notable updates. Medications: Reviewed: Yes Vitals/I&O/Wt Last Vital Signs Temp 98.2 F 08/05/24 07:45 Pulse 79 08/05/24 07:45 Resp 16 08/05/24 07:45 BP 162/79 08/05/24 07:45 Pulse Ox 92 08/05/24 07:45 O2 Del Method Room Air 08/05/24 07:45 08/04/24 08/05/24 08/05/24 22:59 06:59 14:59 Intake Total 469.875 / 969.875 120 / 1089.875 Output Total 300 / 1431 100 / 1531 Balance 169.875 / -461.125 20 / -441.125 Weight last 48 hrs Weight 184 lb 12.8 oz Weight 174 lb 2.643 oz Weight 177 lb 7.554 oz Physical Exam 2 Narrative: General: Awake and oriented. Visibly uncomfortable. Cardiovascular: Regular rate and rhythm. Lungs: Clear to auscultation bilaterally. No wheezing or crackles. Abdomen: No pain or tenderness. Positive bowel sounds. : Corral noted. Extremities: No cyanosis or edema. Dressing with mario wrap of right foot noted. Capillary refill intact. Additional: Right internal jugular permacath noted. Urinary Catheter Management: Corral: Cath Placed During This Visit: yes Reason for Continuing Indwelling Catheter: Other Urinary Catheter Date of Insertion: 08/01/24 Urinary Catheter Time of Insertion: 16:53 Data 08/05/24 05:14 08/05/24 05:14 Micro: Microbiology 08/02/24 11:00 Gram Stain - Final Other Source Wound Culture - Preliminary Gram Negative Rods 08/01/24 20:11 Gram Stain - Final Peritoneal Fluid Body Fluid Culture - Preliminary 08/02/24 Unknown Anaerobic Culture - Preliminary Foot - Right A&P Assessment and plan (1) Sepsis: Patient has displayed findings suggestive of sepsis. Multiple eligible infectious sources including heel ulcer, UTI, peritoneal infection, or other abdominal pathology considering free air on CT. Peritoneal fluid findings from 08/01 suggestive of bacterial peritonitis. Right foot ulcer tissue culture reveal gram negative rods. Anaerobic culture shows no anaerobes isolated to date. Urine cultures negative. Blood and peritoneal fluid cultures negative to date. Continue vancomycin and meropenem. Meropenem is used secondary to penicillin allergy listed. Note that she has had multiple resistant organisms in the past such as MRSA and Enterobacter Sepsis criteria met with borderline hypotension, hypothermia, leukocytosis, possible source, abnormal CT imaging, hypoglycemia. She required institution of norepinephrine during dialysis 2 days ago, likely secondary to dialysis as well as blood loss. Has since been tapered off. I do believe her sepsis is improving. (2) Foot ulcer, right: Postoperative day #3 status post debridement Tissue cultures revealed gram negative rods Awaiting anaerobic culture results. No anerobes isolated to date. Continue IV antibiotics of vancomycin and meropenem Will need prolonged antibiotic course secondary to osteomyelitis present (3) GI bleed: Was having dark, tarry stools associated with acute blood loss anemia. Required 2 pRBC transfusions. Epogen as directed by nephrology. EGD performed yesterday showed no esophageal or duodenal abnormalities, but a 1.3cm bleeding polyp in pylorus protruding into duodenum was excised and fulgurated. Colonoscopy also performed yesterday showed a semipedunculated [id number] polyp which was excised. Continue Protonix. (4) ESRD (end stage renal disease) on dialysis: Nephrology consultation appreciated. On 08/02, peritoneal dialysis catheter was removed and right tunneled hemodialysis catheter was placed. New hemodialysis catheter successfully utilized for 2 hemodialysis sessions, most recent being yesterday morning. CBC, CMP daily. (5) Hypoglycemia associated with type 2 diabetes mellitus: Resolved (6) Hypomagnesemia: Resolved Plan GI bleed. Associated with acute blood loss anemia. She has now received a total of 2 units of packed red blood cells during this hospital stay, with the last unit administered 08/03. Protonix 40 mg IV every 12 hours. Holding aspirin and heparin currently. SCDs for DVT prophylaxis. EGD and colonoscopy performed yesterday. Recent past history of peritonitis, UTI Deconditioning, severe weakness. PT consult Peripheral vascular disease Full code SCDs for DVT prophylaxis, hold heparin secondary to GI bleed Likely transfer out of ICU today, if no active bleeding. Coding Level of Care Code 93700 Diagnoses Sepsis A41.9 Foot ulcer, right L97.519 GI bleed K92.2 ESRD (end stage renal disease) on dialysis N18.6; Z99.2 Hypoglycemia associated with type 2 diabetes mellitus E11.649 Hypomagnesemia E83.42 Time Spent (min) 24 Documented by User: Gabriele Rosales MD 08/05/24 08:54 Physical Exam 2 Urinary Catheter Management: Corral: Cath Placed During This Visit: yes Data 08/05/24 05:14 08/05/24 05:14 A&P Assessment and plan (1) Sepsis: Patient has displayed findings suggestive of sepsis. Multiple eligible infectious sources including heel ulcer, UTI, peritoneal infection, or other abdominal pathology considering free air on CT. Peritoneal fluid findings from 08/01 suggestive of bacterial peritonitis. Right foot ulcer tissue culture reveal gram negative rods. Anaerobic culture shows no anaerobes isolated to date. Urine cultures negative. Blood and peritoneal fluid cultures negative to date. Continue vancomycin and meropenem. Meropenem is used secondary to penicillin allergy listed. Note that she has had multiple resistant organisms in the past such as MRSA and Enterobacter Sepsis criteria met with borderline hypotension, hypothermia, leukocytosis, possible source, abnormal CT imaging, hypoglycemia. She required institution of norepinephrine during dialysis 2 days ago, likely secondary to dialysis as well as blood loss. Has since been tapered off. Sepsis resolved. (2) Foot ulcer, right: Postoperative day #3 status post debridement Tissue cultures revealed gram negative rods Awaiting anaerobic culture results. No anerobes isolated to date. Continue IV antibiotics of vancomycin and meropenem Will need prolonged antibiotic course secondary to osteomyelitis present Infectious disease consult. May need PICC line, if antibiotic cannot be given with hemodialysis. (3) GI bleed: Was having dark, tarry stools associated with acute blood loss anemia. Required 2 pRBC transfusions. Epogen as directed by nephrology. EGD performed yesterday showed no esophageal or duodenal abnormalities, but a 1.3cm bleeding polyp in pylorus protruding into duodenum was excised and fulgurated. Colonoscopy also performed yesterday showed a semipedunculated [id number] polyp which was excised. There was no active bleeding from this polyp. Continue Protonix. Can switch to p.o. (4) ESRD (end stage renal disease) on dialysis: (5) Hypoglycemia associated with type 2 diabetes mellitus: Resolved Insulin has not been reinstituted at this point. (6) Hypomagnesemia: Plan Recent past history of peritonitis, UTI. Cultures did not grow any organism this time. White blood cell count and peritoneal fluid was consistent with peritonitis. Deconditioning, severe weakness. PT consult appreciated Peripheral vascular disease Full code SCDs for DVT prophylaxis, likely can reinitiate heparin tomorrow if no further bleeding, Eliquis thereafter Attestations 2 Medical Necessity Statement*: Needs continued hospital stay for IV antibiotics related to osteomyelitis, continued hemodialysis, close monitoring of GI bleed Diagnoses Sepsis A41.9 Foot ulcer, right L97.519 GI bleed K92.2 ESRD (end stage renal disease) on dialysis N18.6; Z99.2 Hypoglycemia associated with type 2 diabetes mellitus E11.649 Hypomagnesemia E83.42 Time Spent (min) 24
[2024-08-05] MEDS: levothyroxine 100 mcg Tablet PO (09:24)
[2024-08-05] MEDS: b-complex-vitamin c Tablet 1 EACH PO (09:24)
[2024-08-05] MEDS: amiodarone 200 mg Tablet 100 MG PO (09:24)
[2024-08-05] MEDS: sevelamer 800 mg Tablet PO ×3 (09:24→20:38)
[2024-08-05] MEDS: pantoprazole DR 40 mg Tablet PO ×2 (09:27→17:37)
[2024-08-05] MEDS: HYDROcodone-acetaminophen 5-325 mg Tablet 1 TAB PO ×3 (09:27→19:01)
--- NOTE | 2024-08-05 10:41 | PC.SOCIAL ---
IMM Update pg 2 of IMM Updated and reviewed w/ patient. Copy provided and copy dated, initialed and placed in chart.
[2024-08-05] MEDS: meropenem 500 mg SDV IVP (13:01)
--- NOTE | 2024-08-05 14:46 | P.PN_ITS ---
Subjective 2 Subjective: Patient seen and examined. Tolerating soft diet. She is found to have a large gastric polyp at the pylorus that was acting as a ball-valve and bleeding. Tolerating hemodialysis well through permacath Vitals/I&O/Wt Last Vital Signs Temp 98.8 F 08/06/24 07:45 Pulse 71 08/06/24 07:45 Resp 18 08/06/24 04:00 BP 167/77 08/06/24 07:45 Pulse Ox 91 08/06/24 07:45 O2 Del Method Room Air 08/06/24 04:00 08/05/24 08/06/24 08/06/24 22:59 06:59 14:59 Intake Total 120 / 240 1000 / 1240 Balance 120 / 240 1000 / 1240 Weight last 48 hrs Weight 184 lb Weight 184 lb 12.8 oz Physical Exam 2 Narrative: General: No acute distress, awake alert and oriented x 3 Abdomen: Soft, nontender, nondistended Urinary Catheter Management: Corral: Cath Placed During This Visit: yes Reason for Continuing Indwelling Catheter: Assist Healing of Perineal & Sacral Wounds- Incontinent Patients Urinary Catheter Date of Insertion: 08/01/24 Urinary Catheter Time of Insertion: 16:53 Data 08/06/24 02:55 08/06/24 02:55 Micro: Microbiology 08/01/24 07:32 Blood Culture - Final Blood NO GROWTH AFTER 5 DAYS 08/01/24 07:26 Blood Culture - Final Blood NO GROWTH AFTER 5 DAYS 08/02/24 11:00 Gram Stain - Final Other Source Wound Culture - Final Morganella morganii Enterococcus faecalis 08/02/24 Unknown Anaerobic Culture - Preliminary Foot - Right 08/01/24 20:11 Gram Stain - Final Peritoneal Fluid Body Fluid Culture - Final A&P Assessment and plan (1) Peritoneal dialysis catheter mechanical complication: (2) ESRD (end stage renal disease) on dialysis: (3) GI bleed: (4) Acute blood loss anemia: (5) Acute bacterial peritonitis: Plan Status post removal of peritoneal dialysis catheter and placement of right internal jugular permacath. Status post EGD with snare polypectomy of large gastric polyp at the pylorus acting as a ball-valve and bleeding and colonoscopy with polypectomy Cultures from ascitic fluid grew Pseudomonas and Streptococcus hominis Continue soft diet No further general surgical intervention planned at this time She will need referral to vascular surgery for consideration for AV fistula Antibiotics per primary Attestations 2 Medical Necessity Statement*: Per primary Coding Level of Care Code 60064 Diagnoses Peritoneal dialysis catheter mechanical complication T85.691A ESRD (end stage renal disease) on dialysis N18.6; Z99.2 GI bleed K92.2 Acute blood loss anemia D62 Acute bacterial peritonitis K65.9
[2024-08-05 16:58] LABS: Glucose Point of Care 199 mg/dL (70-110)
[2024-08-05] MEDS: atorvastatin 40 mg Tablet PO (17:36)
--- NOTE | 2024-08-05 17:42 | P.PN_ITS ---
Subjective 2 Subjective: no new c/o Medications: Reviewed: Yes Vitals/I&O/Wt Last Vital Signs Temp 98.5 F 08/05/24 15:26 Pulse 75 08/05/24 15:26 Resp 17 08/05/24 15:26 BP 137/53 08/05/24 15:26 Pulse Ox 90 08/05/24 15:26 O2 Del Method Room Air 08/05/24 15:26 08/05/24 08/05/24 08/05/24 06:59 14:59 22:59 Intake Total 120 / 1089.875 120 / 120 Output Total 100 / 1531 Balance 20 / -441.125 120 / 120 Weight last 48 hrs Weight 83.824 kg Weight 79 kg Weight 80.5 kg Physical Exam 2 Narrative: Comfortable in bed no apparent distress. Vital signs noted. off of pressors HEENT normocephalic atraumatic Neck is supple. Lungs are clear to auscultation. Heart is regular +HSM Abdomen is soft, tender, poor to minimal bowel sounds. Peritoneal dialysis catheter removed Extremities have no edema, right heel bandaged Neuro -a,a, o x 3, moves all extremities rt ij PC Urinary Catheter Management: Corral: Cath Placed During This Visit: yes Reason for Continuing Indwelling Catheter: Other Urinary Catheter Date of Insertion: 08/01/24 Urinary Catheter Time of Insertion: 16:53 Data 08/05/24 05:14 08/05/24 05:14 Micro: Microbiology 08/02/24 11:00 Gram Stain - Final Other Source Wound Culture - Final Morganella morganii Enterococcus faecalis 08/02/24 Unknown Anaerobic Culture - Preliminary Foot - Right 08/01/24 20:11 Gram Stain - Final Peritoneal Fluid Body Fluid Culture - Final A&P Assessment and plan (1) ESRD (end stage renal disease) on dialysis: 84-year-old lady ESRD- transitioned from PD to HD- repeat HD now, 3 k bath, up to 1 liter fluid removal 1. Heel ulcer antibiotics as per medicine. s/p debridement Nov . 2. ID patient is grown multiple different bacteria such as Enterobacter cloacae and Klebsiella UTI appears like her peritoneal dialysis fluid had Pseudomonas and Staphylococcus hominis. Patient was on multiple antibiotics at this time the patient will get meropenem and vancomycin which I feel will be appropriate. PD catheter removed. CRP of 76 consistent with infection. Albumin of 2.4 consistent with infection Patient's PD fluid consistent with peritonitis. Given the fact that she was on multiple antibiotics. We removed her Tenckhoff catheter. Please give appropriate antibiotics. HD tomorrow 3. Hypotension improved. Blood pressure now normal. 4. Leukocytosis likely from multiple infections. wbc down to 16 5. Anemia continue Epogen. Please note recent iron saturation of 97% and ferritin of 2000 please do not give any iron. 6. Hyponatremia likely from ESRD and infection. Improved with dialysis. 7. Hypoglycemia improved 8. monitor electrolytes PTH 216 is acceptable. The patient was seen examined using audiovisual equipment with the aid of a nurse. Plan see above Attestations 2 Medical Necessity Statement*: per yony Coding Level of Care Code Acute Code for [facility] Fwd Diagnoses ESRD (end stage renal disease) on dialysis N18.6; Z99.2
[2024-08-05 21:18] LABS: Glucose Point of Care 316 mg/dL (70-110)
[2024-08-06] VITALS (8 sets, daily range): BP systolic 119–177; BP diastolic 53–80; PULSE 58–83; RESP 17–18; TEMP 36.5–37.3; O2SAT 90–92; BMI 33.6
[2024-08-06 03:05] LABS: Basophils # 0.1 10^3/uL (0.0-0.1); Basophils % 0.3 %; Eosinophils # 0.3 10^3/uL (0.0-0.8); Eosinophils % 1.5 %; Hematocrit 27.9 % (36-47); Lymphocytes # 1.2 10^3/uL (0.8-4.8); Mean Corpuscular HGB Conc 32.3 g/dL (30-55); Mean Corpuscular Hemoglobin 30.6 pg (27-33); Mean Corpuscular Volume 94.9 fl (85-98); Mean Platelet Volume 8.1 fL (7.4-10.4); Monocytes # 1.3 10^3/uL (0.2-0.9); Monocytes % 6.3 %; Neutrophils # 17.16 10^3/uL (1.8-7.7); Neutrophils % 83.2 %; Nucleated Red Blood Cells # 0.1 /100WBC; Nucleated Red Blood Cells % 0.2 %; Platelet Count 168 10^3/cmm (157-399); Red Blood Count 2.94 10^6/uL (3.85-5.65); Red Cell Distribution Width 16.3 % (12.1-15.1); White Blood Count 20.61 10^3/uL (3.29-11.43)
[2024-08-06 03:22] LABS: Vancomycin Random 15.5 ug/mL (20.0-40.0)
[2024-08-06 03:25] LABS: Anion Gap 13.7 (5-19); Blood Urea Nitrogen 18 mg/dL (8-23); Calcium 7.6 mg/dL (8.5-10.5); Carbon Dioxide 25 mmol/L (22-29); Chloride 99 mmol/L (98-107); Creatinine Clr Calc Pharmacy 15.0142; Glucose 279 mg/dL (65-115); Magnesium 2.2 mg/dL (1.7-2.3); Osmolality Calculated 290 mOsm/kg (285-295); Potassium 3.7 mmol/L (3.5-5.1); Sodium 134 mmol/L (136-145)
--- NOTE | 2024-08-06 05:17 | P.PN_ITS ---
Subjective 2 Subjective: getting HD Medications: Reviewed: Yes Vitals/I&O/Wt Last Vital Signs Temp 98.7 F 08/06/24 04:00 Pulse 78 08/06/24 04:00 Resp 18 08/06/24 04:00 BP 148/80 08/06/24 04:00 Pulse Ox 90 08/06/24 04:00 O2 Del Method Room Air 08/06/24 04:00 08/05/24 08/05/24 08/06/24 14:59 22:59 06:59 Intake Total 120 / 120 120 / 240 1000 / 1240 Balance 120 / 120 120 / 240 1000 / 1240 Weight last 48 hrs Weight 83.824 kg Weight 79 kg Weight 80.5 kg Physical Exam 2 Narrative: Comfortable in bed no apparent distress. Vital signs noted. off of pressors HEENT normocephalic atraumatic Neck is supple. Lungs are clear to auscultation. Heart is regular +HSM Abdomen is soft, tender, poor to minimal bowel sounds. Peritoneal dialysis catheter removed Extremities have no edema, right heel bandaged Neuro -a,a, o x 3, moves all extremities rt ij PC Urinary Catheter Management: Corral: Cath Placed During This Visit: yes Reason for Continuing Indwelling Catheter: Other Urinary Catheter Date of Insertion: 08/01/24 Urinary Catheter Time of Insertion: 16:53 Data 08/06/24 02:55 08/06/24 02:55 Micro: Microbiology 08/02/24 11:00 Gram Stain - Final Other Source Wound Culture - Final Morganella morganii Enterococcus faecalis 08/02/24 Unknown Anaerobic Culture - Preliminary Foot - Right 08/01/24 20:11 Gram Stain - Final Peritoneal Fluid Body Fluid Culture - Final A&P Assessment and plan (1) ESRD (end stage renal disease) on dialysis: 84-year-old lady ESRD- transitioned from PD to HD- repeat HD now, 3 k bath, up to 1 liter fluid removal 1. Heel ulcer antibiotics as per medicine. s/p debridement Nov . 2. ID patient is grown multiple different bacteria such as Enterobacter cloacae and Klebsiella UTI appears like her peritoneal dialysis fluid had Pseudomonas and Staphylococcus hominis. Patient was on multiple antibiotics at this time the patient will get meropenem and vancomycin which I feel will be appropriate. PD catheter removed. Patient's PD fluid consistent with peritonitis .s/p removal of Tenckhoff catheter. Please give appropriate antibiotics. HD today 3. Hypotension improved. Blood pressure now normal. 4. Leukocytosis likely from multiple infections. wbc down to 16 5. Anemia continue Epogen. Please note recent iron saturation of 97% and ferritin of 1999 please do not give any iron. 6. Hyponatremia likely from ESRD and infection. Improved with dialysis. 7. Hypoglycemia improved 8. monitor electrolytes PTH 216 is acceptable. The patient was seen examined using audiovisual equipment with the aid of a nurse. Plan see above Attestations 2 Medical Necessity Statement*: per medicine team Coding Level of Care Code Acute Code for [facility] Fwd Diagnoses ESRD (end stage renal disease) on dialysis N18.6; Z99.2
[2024-08-06 06:15] LABS: Glucose Point of Care 235 mg/dL (70-110)
[2024-08-06] MEDS: HYDROcodone-acetaminophen 5-325 mg Tablet 1 TAB PO ×3 (08:18→20:09)
[2024-08-06] MEDS: pantoprazole DR 40 mg Tablet PO ×2 (08:18→17:35)
[2024-08-06] MEDS: amiodarone 200 mg Tablet 100 MG PO (08:18)
[2024-08-06] MEDS: sevelamer 800 mg Tablet PO ×3 (08:19→20:09)
[2024-08-06] MEDS: b-complex-vitamin c Tablet 1 EACH PO (08:19)
[2024-08-06] MEDS: levothyroxine 100 mcg Tablet PO (08:19)
[2024-08-06] MEDS: meropenem 500 mg SDV IVP (12:23)
[2024-08-06] MEDS: heparin 5,000 unit/mL INJ 1 mL 5000 UNIT SUBCUT (14:29)
--- NOTE | 2024-08-06 14:50 | P.PN_ITS ---
Subjective 2 Subjective: Patient is tolerating diet, actually eating Tay[employer] at her bedside. Having bowel movements without any signs of GI bleeding. Denies any abdominal pain Vitals/I&O/Wt Last Vital Signs Temp 98.8 F 08/06/24 07:45 Pulse 71 08/06/24 07:45 Resp 18 08/06/24 04:00 BP 167/77 08/06/24 07:45 Pulse Ox 91 08/06/24 07:45 O2 Del Method Room Air 08/06/24 04:00 08/05/24 08/06/24 08/06/24 22:59 06:59 14:59 Intake Total 120 / 240 1000 / 1240 Balance 120 / 240 1000 / 1240 Weight last 48 hrs Weight 184 lb Weight 184 lb 12.8 oz Physical Exam 2 Narrative: General: No acute distress, awake alert and oriented x 3 Abdomen: Soft, nontender, nondistended Urinary Catheter Management: Corral: Cath Placed During This Visit: yes Reason for Continuing Indwelling Catheter: Assist Healing of Perineal & Sacral Wounds- Incontinent Patients Urinary Catheter Date of Insertion: 08/01/24 Urinary Catheter Time of Insertion: 16:53 Data 08/06/24 02:55 08/06/24 02:55 Micro: Microbiology 08/01/24 07:32 Blood Culture - Final Blood NO GROWTH AFTER 5 DAYS 08/01/24 07:26 Blood Culture - Final Blood NO GROWTH AFTER 5 DAYS 08/02/24 11:00 Gram Stain - Final Other Source Wound Culture - Final Morganella morganii Enterococcus faecalis 08/02/24 Unknown Anaerobic Culture - Preliminary Foot - Right 08/01/24 20:11 Gram Stain - Final Peritoneal Fluid Body Fluid Culture - Final A&P Assessment and plan (1) Peritoneal dialysis catheter mechanical complication: (2) ESRD (end stage renal disease) on dialysis: (3) GI bleed: (4) Acute blood loss anemia: (5) Acute bacterial peritonitis: Plan Status post removal of peritoneal dialysis catheter and placement of right internal jugular permacath. Status post EGD with snare polypectomy of large gastric polyp at the pylorus acting as a ball-valve and bleeding and colonoscopy with polypectomy Cultures from ascitic fluid grew Pseudomonas and Streptococcus hominis Continue soft diet No further general surgical intervention planned at this time She will need referral to vascular surgery for consideration for AV fistula General Surgery will sign off at this time. Please reconsult if the need arises Follow-up in my office in 2 weeks to go over endoscopy results Antibiotics per primary Attestations 2 Medical Necessity Statement*: Per primary Coding Level of Care Code 92854 Diagnoses Peritoneal dialysis catheter mechanical complication T85.691A ESRD (end stage renal disease) on dialysis N18.6; Z99.2 GI bleed K92.2 Acute blood loss anemia D62 Acute bacterial peritonitis K65.9
--- NOTE | 2024-08-06 15:12 | P.PN_ITS ---
Subjective 2 Subjective: Hospital course, labs appreciated. Today morning seen after dialysis. Patient laying comfortably in bed with family at bedside having Tay's. Denies any abdominal pain, nausea or vomiting. Has remained hemodynamically stable and afebrile. Blood pressure slightly elevated. Vitals/I&O/Wt Last Vital Signs Temp 98.8 F 08/06/24 07:45 Pulse 71 08/06/24 07:45 Resp 18 08/06/24 04:00 BP 167/77 08/06/24 07:45 Pulse Ox 91 08/06/24 07:45 O2 Del Method Room Air 08/06/24 04:00 08/06/24 08/06/24 08/06/24 06:59 14:59 22:59 Intake Total 1000 / 1240 Balance 1000 / 1240 Weight last 48 hrs Weight 83.461 kg Weight 83.824 kg Physical Exam 2 Narrative: General exam is a white female no distress Neck is supple Cardiovascular regular rate and rhythm Lungs clear no wheezing or crackles Abdomen no pain or tenderness, positive bowel sounds exam Corral noted Extremities no cyanosis clubbing. Cap refill good. Heel ulcer with dressing noted Urinary Catheter Management: Corral: Cath Placed During This Visit: yes Reason for Continuing Indwelling Catheter: Assist Healing of Perineal & Sacral Wounds- Incontinent Patients Urinary Catheter Date of Insertion: 08/01/24 Urinary Catheter Time of Insertion: 16:53 Data 08/06/24 02:55 08/06/24 02:55 Micro: Microbiology 08/01/24 07:32 Blood Culture - Final Blood NO GROWTH AFTER 5 DAYS 08/01/24 07:26 Blood Culture - Final Blood NO GROWTH AFTER 5 DAYS 08/02/24 11:00 Gram Stain - Final Other Source Wound Culture - Final Morganella morganii Enterococcus faecalis 08/02/24 Unknown Anaerobic Culture - Preliminary Foot - Right 08/01/24 20:11 Gram Stain - Final Peritoneal Fluid Body Fluid Culture - Final A&P Assessment and plan (1) Sepsis: Patient has displayed findings suggestive of sepsis. Multiple eligible infectious sources including heel ulcer, UTI, peritoneal infection, or other abdominal pathology considering free air on CT. Peritoneal fluid findings from 08/01 suggestive of bacterial peritonitis. Right foot ulcer tissue culture reveal gram negative rods. Anaerobic culture shows no anaerobes isolated to date. Urine cultures negative. Blood and peritoneal fluid cultures negative to date. Continue vancomycin and meropenem. Meropenem is used secondary to penicillin allergy listed. Note that she has had multiple resistant organisms in the past such as MRSA and Enterobacter Sepsis criteria met with borderline hypotension, hypothermia, leukocytosis, possible source, abnormal CT imaging, hypoglycemia. She required institution of norepinephrine during dialysis 2 days ago, likely secondary to dialysis as well as blood loss. Has since been tapered off. Sepsis resolved. (2) Foot ulcer, right: Postoperative day #3 status post debridement Tissue cultures revealed gram negative rods Awaiting anaerobic culture results. No anerobes isolated to date. Continue IV antibiotics of vancomycin and meropenem Will need prolonged antibiotic course secondary to osteomyelitis present Infectious disease consult. May need PICC line, if antibiotic cannot be given with hemodialysis. (3) GI bleed: Was having dark, tarry stools associated with acute blood loss anemia. Required 2 pRBC transfusions. Epogen as directed by nephrology. EGD performed yesterday showed no esophageal or duodenal abnormalities, but a 1.3cm bleeding polyp in pylorus protruding into duodenum was excised and fulgurated. Colonoscopy also performed yesterday showed a semipedunculated [id number] polyp which was excised. There was no active bleeding from this polyp. Continue Protonix. Can switch to p.o. (4) ESRD (end stage renal disease) on dialysis: Nephrology consultation appreciated. On 08/02, peritoneal dialysis catheter was removed and right tunneled hemodialysis catheter was placed. New hemodialysis catheter successfully utilized for 2 hemodialysis sessions, most recent being yesterday morning. CBC, CMP daily. (5) Hypoglycemia associated with type 2 diabetes mellitus: Resolved Insulin has not been reinstituted at this point. (6) Hypomagnesemia: Resolved Plan Recent past history of peritonitis, UTI. Cultures did not grow any organism this time. White blood cell count and peritoneal fluid was consistent with peritonitis. Deconditioning, severe weakness. PT consult appreciated Peripheral vascular disease Plan for the day: Appreciate various cultures including Klebsiella and Enterobacter from urine, Staphylococcus hominis from peritoneal fluid, Pseudomonas, Morganella and Enterococcus from wound cultures. Blood cultures during hospitalization has remained negative. Patient currently on IV meropenem and vancomycin. ID recommendations awaited. Blood pressure slightly elevated. Goal blood pressure less than 140/90 mmHg. Add 50 mg of oral losartan. Continue other chronic home medications. Blood sugars slightly elevated. Will add insulin sliding scale. Hold off on home dose of Lantus for now. Hemoglobin stable. Currently at 9. Appreciate surgical recommendations. Continue with Protonix twice daily Post dialysis today. Appreciate nephrology recommendations. Full code SCDs for DVT prophylaxis, likely can reinitiate heparin tomorrow if no further bleeding, Eliquis thereafter Attestations 2 Medical Necessity Statement*: Requires further hospitalization for management of sepsis in setting of peritonitis, healed abscess and osteomyelitis, GI bleed post colonoscopy, stable hemoglobin in a patient with baseline end-stage renal disease on hemodialysis Diagnoses Sepsis A41.9 Foot ulcer, right L97.519 GI bleed K92.2 ESRD (end stage renal disease) on dialysis N18.6; Z99.2 Hypoglycemia associated with type 2 diabetes mellitus E11.649 Hypomagnesemia E83.42
[2024-08-06 16:12] LABS: Glucose Point of Care 240 mg/dL (70-110)
--- NOTE | 2024-08-06 17:21 | PM.CONSULT ---
Providers/Reason For Consult Consulting Physician/Specialty*: Maria L Toro MD / Infectious Disease Reason for Consult*: Osteomyelitis/ PD peritonitis Requesting Physician: Gabriele Rosales MD Attending Physician: Fidel Steinberg MD Primary Care Provider: Mann Garduno MD History of Present Illness History of Present Illness Luiza Cooper is a 84 year old female with history of end-stage renal disease on hemodialysis, peripheral vascular disease with recent intervention, recent concern for peritonitis, A-fib, CHF, UTI, multiple other medical problems presenting to the emergency department with low blood sugar, sweating. She was found to be hypoglycemic, with a blood sugar of 31 on her admitting lab work. She was noted to have increasing odor at discharge at her recent right heel ulcer raising concern for osteomyelitis.She was recently admitted to the hospital on 07/27/2024 for right lower extremity revascularization by interventional cardiology. Patient has a chronic heel decubitus ulcer for which she was seeing wound care weekly. This wound dates back to several months when she had fallen and broken her hip. She was in a long term where she developed bilateral decubitus ulcer over her heels. The left heel healed however the right continued to persist. She was found to have peripheral vascular disease and underwent lithotripsy of the right lower extremity from popliteal to SFA. She is on anticoagulation. Patient has a longstanding history of CKD for which she is on peritoneal dialysis. July 27, 2024 peritoneal WBCs were noted to be at 110. On this current admission on August 01 peritoneal cell count is at 542. Her PD catheter was noted to have a break in continuity and was removed. Fluid culture from 08/01 had shown few gram-positive cocci in pairs and chains not further identified. April 17 2024, peritoneal fluid cultures had shown staph lugdunensis and MRSA. Catheter was retained at that time. Presumably this was because peritoneal cell count at that time was at 27. Fluid culture from 07 27 had shown Staph hominis. Recently cultures from her foot have shown Morganella Maco I and Enterococcus faecalis. Previously wound culture had shown Pseudomonas. On 08/01/2024, In reviewing her most recent admission course, she underwent right heel I&D down to the bone cortex on August 02, 2024. There was necrotic tissue down to the level of calcaneal periosteum. No readily visualized abscess was encountered. Her PD catheter was removed and she also underwent placement of a right-sided IJ permacath due to catheter related peritonitis. She is on hemodialysis now. Due to suspicion of GI bleeding she has undergone upper GI endoscopy and colonoscopy on August 04, 2024. A 1.3 cm bleeding polyp was encountered in the pylorus protruding into the duodenum. Polyp was excised and base was fulgurated. In the mid sigmoid colon a semipedunculated polyp was encountered. Colon appears to have resolved since then. Infectious diseases consulted with regards to recommendations for antibiotics at discharge. Review of Systems General: Reports: 10 or more systems reviewed and unremarkable except in HPI and below Const: Denies: fever(s), chills or body aches Eyes: Denies: change in vision, blurry vision or photophobia ENMT: Reports: hoarseness; Denies: throat pain, enlarged tonsils, odynophagia or nasal congestion Card: Denies: chest pain, palpitations, irregular heart rhythm, edema, swelling of feet/ankles, lightheadedness, pre-syncope, dyspnea on exertion or orthopnea Resp: Denies: dyspnea, productive cough, non-productive cough, wheezing, stridor, pain on inspiration, change in phlegm color, hemoptysis or chest congestion GI: Denies: abdominal pain, nausea, vomiting, hematemesis, coffee ground emesis, dysphagia, heartburn, diarrhea, constipation, GI cramping, change in stool character, hematochezia or melena : Denies: flank pain, difficulty voiding, dysuria, urinary frequency, urinary urgency, urinary hesitancy or hematuria Musc: Denies: neck pain, back pain, extremity pain, joint swelling, joint warmth or deformity Neuro: Denies: headache(s), numbness in extremities, weakness in extremities, sensory changes, difficulty walking, frequent falls, dizziness, vertigo, behavioral changes, Slurred speech present or seizure-like activity Psych: Denies: anxiety, depression, suicidal ideation or homicidal ideation Endo: Denies: polyuria, polydipsia, tired all the time, cold intolerance or hot flashes Newton/Lymph: Denies: easy bruising or easy bleeding Medications/Allergies Home Medications Medication Instructions Recorded Confirmed Last Taken Type blood sugar diagnostic (Contour #300 ea 10/08/22 08/01/24 Unknown Rx Next Test Strips) blood-glucose meter (OneTouch #1 ea 10/13/22 08/01/24 Unknown Rx Ultra2 Meter) lancets 33 gauge (OneTouch Delica #100 ea 10/13/22 08/01/24 Unknown Rx Plus Lancet) pen needle, diabetic 31 gauge x #100 ea 10/27/23 08/01/24 Unknown Rx 5/16 (BD Ultra-Fine Short Pen Needle) atorvastatin 40 mg tablet 40 mg PO QPM 11/27/23 08/01/24 07/31/24 History coenzyme Q10 100 mg capsule 100 mg PO BEDTIME 11/27/23 08/01/24 07/31/24 History (CoQ-10) potassium chloride 20 mEq 10 meq PO BEDTIME 11/27/23 08/01/24 07/31/24 History tablet,extended release vit B,C-folic ac 800 mcg-zinc 12.5 1 tab PO DAILY 11/27/23 08/01/24 07/31/24 History mg-selen-D3 2,000 unit-vit E tablet (RenaPlex-D) doxazosin 2 mg tablet 2 mg PO BEDTIME 01/27/24 08/01/24 07/31/24 History polyethylene glycol 3350 17 17 g PO PRN PRN Constipation 01/27/24 08/01/24 04/15/24 History gram/dose oral powder (Miralax) amiodarone 100 mg tablet 100 mg PO DAILY #30 tabs 05/09/24 08/01/24 07/31/24 Rx spironolactone 25 mg tablet 12.5 mg (1/2 x 25 mg) PO DAILY #30 05/30/24 08/01/24 07/31/24 Rx tabs blood sugar diagnostic (OneTouch #200 ea 06/27/24 08/01/24 Unknown Rx Ultra Test strips) hydrocodone 5 mg-acetaminophen 325 1 tab PO Q8H PRN pain 30 days #45 07/21/24 08/01/24 Unknown Rx mg tablet tabs furosemide 40 mg tablet 80 mg (2 x 40 mg) PO BID #180 tabs 07/28/24 08/01/24 07/31/24 Rx aspirin 81 mg tablet,delayed 81 mg PO DAILY 30 days #30 tabs 07/29/24 08/01/24 07/31/24 Rx release cefdinir 300 mg capsule 300 mg PO BID 14 days #28 caps 07/29/24 08/01/24 07/31/24 Rx insulin glargine 100 unit/mL (3 25 unit (0.25 mL) SUBCUT QAM #15 mL 07/29/24 08/01/24 07/31/24 Rx mL) subcutaneous pen (Lantus Solostar U-100 Insulin) levothyroxine 100 mcg capsule 100 mcg PO DAILY 30 days #30 caps 07/29/24 08/01/24 07/31/24 Rx linezolid 600 mg tablet (Zyvox) 600 mg PO BID 14 days #28 tabs 07/29/24 08/01/24 07/31/24 Rx levofloxacin 250 mg tablet 250 mg PO DAILY 5 days #5 tabs 07/31/24 08/01/24 07/31/24 Rx apixaban 5 mg tablet (Eliquis) 2.5 mg PO BID 08/01/24 08/01/24 07/31/24 History mirtazapine 15 mg tablet 15 mg PO BEDTIME PRN insomnia 08/01/24 08/01/24 07/31/24 History Allergies Allergy/AdvReac Type Severity Reaction Status Date / Time Penicillins Allergy Unknown Rash,Unknow Verified 07/25/24 12:36 n Current Medications Generic Name Dose Route Start Last Admin Trade Name Freq PRN Reason Stop Dose Admin Acetaminophen 650 mg 08/01/24 10:42 08/02/24 04:23 Acetaminophen 325 Mg Tablet PO 650 mg Q6H PRN Administration Mild/Mod Pain Or Temp >/= 101 Hydrocodone Bitart/Acetaminophen 1 tab 08/04/24 10:12 08/06/24 14:28 Hydrocodone-Acetaminophen 5-325 Mg Tablet PO 1 tab Q4H PRN Administration MODERATE PAIN Amiodarone HCl 100 mg 08/02/24 09:00 08/06/24 08:18 Amiodarone 200 Mg Tablet PO 100 mg DAILY NIKO Administration Atorvastatin Calcium 40 mg 08/01/24 18:00 08/05/24 17:36 Atorvastatin 40 Mg Tablet PO 40 mg QPM NIKO Administration Heparin Sodium (Porcine) 5,000 unit 08/06/24 13:15 08/06/24 14:29 Heparin 5,000 Unit/Ml Inj 1 Ml SUBCUT 5,000 unit Q12H NIKO Administration Hydromorphone HCl 0.4 mg 08/02/24 18:47 08/04/24 20:30 Hydromorphone 1 Mg/Ml Inj 1 Ml IVP 0.4 mg Q4H PRN Administration PAIN Lanolin 1 applic 08/03/24 04:42 08/03/24 06:31 Lanolin Oint 7 Gm TOPICAL 1 applic PRN PRN Administration DRYNESS Levothyroxine Sodium 100 mcg 08/02/24 09:00 08/06/24 08:19 Levothyroxine 100 Mcg Tablet PO 100 mcg DAILY NIKO Administration Meropenem 500 mg 08/01/24 11:00 08/06/24 12:23 Meropenem 500 Mg Sdv IVP 500 mg Q24H NIKO Administration Protocol Multivitamins 1 each 08/02/24 09:00 08/06/24 08:19 T-Rohlvhl-Bdwmfva C Tablet PO 1 each DAILY NIKO Administration Pantoprazole Sodium 40 mg 08/05/24 09:00 08/06/24 08:[address] 40 Mg Tablet PO 40 mg BID NIKO Administration Sevelamer Carbonate 800 mg 08/03/24 15:00 08/06/24 14:28 Sevelamer 800 Mg Tablet PO 800 mg TID NIKO Administration PFSH Acute PFSH: Medical History Essential hypertension ESRD (end stage renal disease) on dialysis Sepsis Cystitis Decubitus ulcer, buttock Heel ulcer UTI (urinary tract infection) Leukocytosis Pubic ramus fracture Closed fracture of single pubic ramus of pelvis Pelvic fracture Acute respiratory failure with hypoxia Hypoxemia Atrial fibrillation PVC (premature ventricular contraction) Hypoglycemia associated with type 2 diabetes mellitus Pneumonia due to COVID-19 virus ESRD on peritoneal dialysis Atrial fibrillation Acute kidney injury superimposed on CKD Pneumonia Osteoarthritis (arthritis due to wear and tear of joints) Altered mental status Meningioma Anemia COVID-19 resolved Hypothyroidism GERD (gastroesophageal reflux disease) HTN (hypertension) CHF (congestive heart failure) CKD (chronic kidney disease) Diabetes Surgical History History of ankle surgery S/P tonsillectomy Status post tubal ligation S/P cataract extraction S/P cervical spinal fusion Peritoneal dialysis catheter in situ (06/26/21) Family History Mother Hypertension Grandmother Hypertension MATERNAL Other Cancer Diabetes Social History Smoking and tobacco/nicotine status: never used tobacco/nicotine Quit status (tobacco/nicotine): has quit using Year quit tobacco: 1977 [id number] Second hand smoke exposure: Yes Alcohol intake: never Substance/Drug Use: never Caregiver/support person: Yes Lives independently: Yes Household members: spouse and children Housing: House Marital status: Current occupational status: retired Pets and animals: Yes Do you think of yourself as: Straight/Heterosexual Current gender identity: Female Vitals/I&O/Wt Last Vital Signs Temp 99.1 F 08/06/24 16:00 Pulse 66 08/06/24 16:00 Resp 18 08/06/24 04:00 BP 154/69 08/06/24 16:00 Pulse Ox 92 08/06/24 16:00 O2 Del Method Room Air 08/06/24 16:00 08/06/24 08/06/24 08/06/24 06:59 14:59 22:59 Intake Total 1000 / 1240 240 / 240 Balance 1000 / 1240 240 / 240 Weight last 48 hrs Weight 83.461 kg Weight 83.824 kg Physical Exam Narrative: General: No acute distress, AO x3 HEENT: PERRLA, pupils bilaterally equal and reactive, pallors not present Chest: Normal vesicular breath sounds, no added sounds, equal good air entry bilaterally CVS: S1-S2 regular, no murmurs, no tachycardia, no gallops, no rubs Abdomen: Soft, nontender, no organomegaly, bowel sounds present Neuro: No focal deficits, no facial deformity, AO x3, power 5/5 in all limbs Urinary Catheter Management: [place]: Cath Placed During This Visit: yes, but has since been removed by the nurse Reason for Continuing Indwelling Catheter: Decision to DC Catheter Urinary Catheter Date of Insertion: 08/01/24 Urinary Catheter Time of Insertion: 16:53 Date Urinary Catheter Removed: 08/06/24 Time Urinary Catheter Discontinued: 15:26 Data 08/07/24 02:59 08/07/24 02:59 Other Labs: NAME: Luiza Cooper LOC: [facility] #: [id number] AGE/SX: 84/F ROOM: [facility] RE08/01/[address]: Fidel Steinberg MD : 1940 BED: 2 DIS: FAX #: STATUS: ADM IN TLOC: Spec #: [id number] Janine: 08/02/24 Status: COMP Req #: [id number] Recd: 08/02/[address]: Carter Kwok DO Src: Other Sour SpDesc: Ordered: WC and GS Comments: Comment SOFT TISSUE RIGHT FOOT AEROBES GRAM STAIN C/S Procedure Result Verified Site Gram Stain Final 08/02/24-1427 Result NO WHITE BLOOD CELLS FEW GRAM POSITIVE COCCI IN PAIRS IN CLUSTERS Wound Culture Final 08/05/24-1732 Organism 1 Morganella morganii Growth MODERATE Organism 2 Enterococcus faecalis Growth MODERATE DAY 3 M morganii E faecalis M.I.C. RX M.I.C. RX --------- ------ --------- ------ * Amikacin <=16 S * Ampicillin <=2 S * Ampicillin/Sulbactam >16/8 R * Aztreonam <=4 S * Cefepime <=8 S * Ceftriaxone <=1 S * Ciprofloxacin <=1 S * Gentamicin <=2 S * Imipenem 8 R * Levofloxacin <=2 S * Linezolid 2 S * Penicillin 2 S * Tetracycline <=4 S * Trimethoprim/Sulfamethoxazole <=2/38 S Vancomycin 16 I * Piperacillin/Tazobactam <=16 S Gentamicin Synergy Screen >500 R Daptomycin 2 S Enterococcus faecalis: Gram Pos Combo 33-MScan Gentamicin Synergy Screen R Wound Culture Preliminary (changed) 08/04/24-1034 Organism 1 Gram Negative Rods Growth MODERATE DAY 2, RESULTS TO FOLLOW Wound Culture Preliminary (changed) 08/03/24-1509 Organism 1 Gram Negative Rods Growth MODERATE DAY 1, RESULTS TO FOLLOW NAME: Luiza Cooper LOC: [facility] #: [id number] AGE/SX: 84/F ROOM: [facility] RE08/01/[address]: Fidel Steinberg MD : 1940 BED: 2 DIS: FAX #: STATUS: ADM IN TLOC: Spec #: [id number] Janine: 08/01/24 Status: COMP Req #: [id number] Recd: 08/01/[address]: Zachariah Brock DO Src: Per Fld SpDesc: Ordered: Body FL Cult&GS Comments: Comment peritoneal fluid Procedure Result Verified Site Gram Stain Final 08/02/24 Result FEW POLYMORPHONUCLEAR NEUTROPHILS FEW GRAM POSITIVE COCCI IN PAIRS IN CLUSTERS Body Fluid Culture Final 08/05/24 NO GROWTH ON DAY 3 Body Fluid Culture Preliminary (changed) 08/04/24 NO GROWTH AFTER 2 DAYS Body Fluid Culture Preliminary (changed) 08/03/24 NO GROWTH AFTER 1 DAY SERJIO: Luiza Cooper LOC: [facility] U #: [id number] AGE/SX: 84/F ROOM: [facility] RE08/01/[address]: Fidel Steinberg MD : 1940 BED: 2 DIS: FAX #: STATUS: ADM IN TLOC: Spec #: [id number] Janine: 08/01/24 Status: COMP Req #: [id number] Recd: 08/01/[address]: Shayan Cartwright DO Src: Urine CC SpDesc: Ordered: UC Procedure Result Verified Site Urine Culture Final 08/03/24 NO GROWTH AT 36-48 HOURS Urine Culture Preliminary (changed) 08/02/24 NO GROWTH AT 18-24 HOURS NAME: Luiza Cooper LOC: [facility] U #: [id number] AGE/SX: 84/F ROOM: 278 RE08/01/[address]: Fidel Steinberg MD : 1940 BED: 2 DIS: FAX #: STATUS: ADM IN TLOC: Spec #: [id number] Janine: 08/01/24 Status: COMP Req #: [id number] Recd: 08/01/[address]: Zachariah Brock DO Src: Blood SpDesc: Ordered: Bcult Procedure Result Verified Site Blood Culture Final 08/06/24-733 NO GROWTH AFTER 5 DAYS Blood Culture Preliminary (changed) 08/02/24 NEGATIVE TO DATE Blood Culture Preliminary (changed) 08/01/24 SPECIMEN COLLECTED NAME: Luiza Cooper LOC: [facility] U #: [id number] AGE/SX: 84/F ROOM: [facility] RE07/26/[address]: Leigh Ann Lock MD : 1940 BED: 1 DIS: 07/29/24 FAX #: STATUS: DIS IN TLOC: Spec #: [id number] Janine: 07/27/24 Status: COMP Req #: [id number] Recd: 07/27/[address]: Uvaldo Draper MD Src: Per Fld SpDesc: Ordered: Body FL Cult&GS Procedure Result Verified Site Gram Stain Final 07/28/24-1100 Result NO ORGANISMS SEEN NO WHITE BLOOD CELLS Body Fluid Culture Final 07/31/24-735 Organism 1 Staphylococcus hominis Growth FEW DAY 4 S hominis M.I.C. RX --------- ------ * Ciprofloxacin >2 R * Clindamycin <=0.5 S * Erythromycin <=0.5 S * Gentamicin >8 R * Levofloxacin >4 R * Linezolid <=1 S * Moxifloxacin >4 R * Oxacillin >2 R * Penicillin >8 R * Rifampin <=1 S * Tetracycline <=4 S * Trimethoprim/Sulfamethoxazole >2/38 R Vancomycin 2 S Daptomycin <=0.5 S Body Fluid Culture Preliminary (changed) 07/29/24-1059 DAY 2, RESULTS TO FOLLOW Body Fluid Culture Preliminary (changed) 07/28/24-1123 NO GROWTH AFTER 1 DAY NAME: Luiza Cooper LOC: [facility] U #: [id number] AGE/SX: 84/F ROOM: [facility] RE07/26/[address]: Leigh Ann Lock MD : 1940 BED: 1 DIS: 07/29/24 FAX #: STATUS: DIS IN TLOC: Spec #: [id number] Janine: 07/27/24 Status: COMP Req #: [id number] Recd: 07/27/[address]: Donta Amaro MD Src: Other Sour SpDesc: Ordered: WC and GS Procedure Result Verified Site Gram Stain Final 07/28/24-110 Result RARE GRAM POSITIVE COCCI IN PAIRS NO WHITE BLOOD CELLS Wound Culture Final 07/30/24-5 Organism 1 Pseudomonas aeruginosa Growth MODERATE DAY 3 P aerugino M.I.C. RX --------- ------ * Aztreonam 8 S * Cefepime <=8 S * Ciprofloxacin <=1 S * Imipenem <=1 S * Levofloxacin <=2 S * Piperacillin/Tazobactam <=16 S Wound Culture Preliminary (changed) 07/29/24-1141 Organism 1 Gram Negative Rods Growth MODERATE DAY 2, RESULTS TO FOLLOW Wound Culture Preliminary (changed) 07/28/24-1117 Organism 1 Gram Negative Rods Growth FEW NAME: Luiza Cooper LOC: [facility] #: [id number] AGE/SX: 84/F ROOM: [facility] RE07/26/[address]: Leigh Ann Lock MD : 1940 BED: 1 DIS: 07/29/24 FAX #: STATUS: DIS IN TLOC: Spec #: [id number] Janine: 07/27/24 Status: COMP Req #: [id number] Recd: 07/27/[address]: Donta Amaro MD Src: URINE,VOID SpDesc: Ordered: UC Procedure Result Verified Site Urine Culture Final 07/30/24-1011 Organism 1 Klebsiella oxytoca [place] Count >100,000 CFU/ml Kleb oxyto M.I.C. RX --------- ------ * Amikacin <=16 S * Amoxicillin/Clavulanate 16/8 I * Ampicillin/Sulbactam >16/8 R * Aztreonam <=4 S * Cefepime <=8 S * Ceftriaxone <=1 S * Cefuroxime >16 R * Ciprofloxacin >2 R * Gentamicin >8 R * Imipenem <=1 S * Levofloxacin >4 R * Nitrofurantoin <=32 S * Tetracycline >8 R * Tobramycin 8 I * Trimethoprim/Sulfamethoxazole >2/38 R * Piperacillin/Tazobactam <=16 S Urine Culture Preliminary (changed) 07/29/24-0841 Organism 1 Gram Negative Rods [place] Count >100,000 CFU/ml DAY 1, RESULTS TO FOLLOW NAME: Luiza Cooper LOC: [facility] U #: [id number] AGE/SX: 84/F ROOM: RE07/22/[address]: Mann Garduno MD : 1940 BED: DIS: FAX #: STATUS: [facility] TLOC: Spec #: [id number] Janine: 07/22/24 Status: COMP Req #: [id number] Recd: 07/22/[address]: Mann Garduno MD Src: Urine CC SpDesc: Ordered: Procedure Result Verified Site Urine Culture Final 07/24/24-1514 Organism 1 Enterobacter cloacae [place] Count >100,000 CFU/ml DAY 2 E cloacae M.I.C. RX --------- ------ * Amikacin <=16 S * Aztreonam 8 S * Cefepime <=8 S * Ceftriaxone 32 R * Cefuroxime >16 R * Ciprofloxacin <=1 S * Gentamicin <=2 S * Imipenem <=1 S * Levofloxacin <=2 S * Nitrofurantoin <=32 S * Tetracycline <=4 S * Trimethoprim/Sulfamethoxazole <=2/38 S * Piperacillin/Tazobactam <=16 S Urine Culture Preliminary (changed) 07/23/24-1032 Organism 1 Gram Negative Rods [place] Count >100,000 CFU/ml DAY 1, RESULTS TO FOLLOW NAME: Luiza Cooper LOC: [facility] U #: [id number] AGE/SX: 83/F ROOM: [facility] RE04/16/[address]: Leigh Ann Pena MD : 1940 BED: 1 DIS: 04/18/24 FAX #: STATUS: DIS IN TLOC: Spec #: [id number] Janine: 04/17/24-1112 Status: COMP Req #: [id number] Recd: 04/17/24-[address]: Maria L [facility] Ordered: Body FL Cult&GS Procedure Result Verified Site Gram Stain Final 04/17/24-1349 Result RARE WHITE BLOOD CELLS NO ORGANISMS SEEN Body Fluid Culture Final 04/25/24-1533 Organism 1 Staphylococcus lugdunensis Growth FEW Organism 2 Methicillin Resis Staph Aureus Growth FEW DAY 5 CRITICAL RESULT YES/NO: YES CRITICAL CALLED BY: DONAVON TO AND READ BACK BY: SHALA DATE: 04/25/24 TIME: 1532 Sta ludorothyun MRSA M.I.C. RX M.I.C. RX --------- ------ --------- ------ * Amoxicillin/Clavulanate <=4/2 R * Ampicillin >8 R >8 R * Ampicillin/Sulbactam <=8/4 R * Ceftriaxone 32 R * Ciprofloxacin >2 R >2 R * Clindamycin <=0.5 S >4 R * Erythromycin >4 R >4 R * Gentamicin >8 R <=4 S * Levofloxacin >4 R >4 R * Linezolid 2 S <=1 S * Oxacillin >2 R >2 R * Penicillin >8 R >8 R * Rifampin <=1 S <=1 S * Tetracycline <=4 S <=4 S * Trimethoprim/Sulfamethoxazole <=0.5/9.5 S >2/38 R Vancomycin 1 S <=0.25 S Daptomycin <=0.5 S <=0.5 S Body Fluid Culture Preliminary (changed) 04/22/24-105 Organism 1 Staphylococcus lugdunensis Growth FEW DAY 4, RESULTS TO FOLLOW Sta lugdun M.I.C. RX --------- ------ * Amoxicillin/Clavulanate <=4/2 R * Ampicillin >8 R * Ampicillin/Sulbactam <=8/4 R * Ceftriaxone 32 R * Ciprofloxacin >2 R * Clindamycin <=0.5 S * Erythromycin >4 R * Gentamicin >8 R * Levofloxacin >4 R * Linezolid 2 S * Oxacillin >2 R * Penicillin >8 R * Rifampin <=1 S * Tetracycline <=4 S * Trimethoprim/Sulfamethoxazole <=0.5/9.5 S Vancomycin 1 S Daptomycin <=0.5 S Body Fluid Culture Preliminary (changed) 04/21/24-833 Organism 1 Staphylococcus lugdunensis Growth FEW DAY 3, RESULTS TO FOLLOW CT/CT abdomen pelvis wo con [id number] IMPRESSION: 1. Moderate amount of intraperitoneal free air. Source of the free air is not identified. Largest amount of free air seems to be at the GE junction and near the proximal stomach. Slight change in attenuation of the stomach mucosa. No definite source of perforation is identified. Correlate with recent manipulation of the peritoneal dialysis catheter. 2. No GI tract obstruction. 3. Extensive vascular calcifications including the mesenteric arteries. 4. Moderate cardiomegaly. 5. Bilateral renal atrophy. No free fluid. CT/CT foot RT wo con* [id number] IMPRESSION: 1. Ulceration with suspected regional cellulitis involving the plantar aspect of the hindfoot. 2. Osteomyelitis involving the calcaneal tuberosity. CT/CT angio abd aorta runof [id number] IMPRESSION: 1. Cardiomegaly. 2. Old fractures through the right superior and inferior pubic rami were seen on the prior study as well. There is incomplete union across the right inferior pubic ramus fracture. 3. Grade 1 degenerative anterolisthesis of L4 on L5 with severe bilateral neural foraminal narrowing and possible compression of the exiting L4 nerve roots. 4. There is mucosal thickening of the distal esophagus consistent with esophagitis. 5. Multivessel atherosclerotic disease with multiple regions of severe stenosis and occlusion in multiple vessels as described in detail above. CONCLUSIONS 1. Noncompressible ankle vessels, on the right side 2. Abnormal Doppler waveforms, may suggest high-grade lesions in the femoral artery with collateral filling of the popliteal and infrapopliteal vessels [address]ogram or peripheral angiogram to further evaluate the arterial disease Micro: Microbiology 08/02/24 Unknown Anaerobic Culture - Preliminary Foot - Right 08/01/24 07:32 Blood Culture - Final Blood NO GROWTH AFTER 5 DAYS 08/01/24 07:26 Blood Culture - Final Blood NO GROWTH AFTER 5 DAYS 08/02/24 11:00 Gram Stain - Final Other Source Wound Culture - Final Morganella morganii Enterococcus faecalis 08/01/24 20:11 Gram Stain - Final Peritoneal Fluid Body Fluid Culture - Final A&P Assessment and plan (1) Osteomyelitis: 84-year-old lady with multiple comorbidities as listed above currently admitted to the hospital for multiple issues including osteomyelitis of the right calcaneus, PD peritonitis and GI bleed. Patient reports she had a hip replacement in January of this year following which she was in rehab. Thereafter she developed bilateral calcaneal wounds of which the right continued to progress. She has been following with wound care clinic since February of this year. She is known to have peripheral artery disease and recently underwent angioplasty of the right lower extremity to restore blood supply to assist with wound healing. Currently admitted with a worsening wound. CT shows evidence of osteomyelitis of the calcaneum. She is status post incision and drainage of the right heel necrotic ulcer on August 02, 2024 by podiatry. Please see op findings above. Deep tissue OR cultures with growth of Morganella Morganii and amp susceptible Enterococcus faecalis, however with vancomycin AZEB of 16 marked as intermediate. Prior cultures from recent admission on July 27, 2024 with Pseudomonas aeruginosa. Recent history of urinary tract infection on July 22, 2024 with Enterobacter cloacae. Blood cultures negative to date. She has not previously been on any IV antibiotics. Most recently she was on cefdinir and linezolid after her last admission. (2) Peritoneal dialysis catheter infection: PD peritonitis as evidenced by elevated peritoneal cell counts and positive cultures. Most recent body fluid culture showing gram-positive cocci in pairs and clusters on Gram stain, no growth seen on cultures, however this could likely be compromised is being on cefdinir and linezolid prior to admission. On her previous admission peritoneal culture showed Staph hominis. Cell counts as noted above in HPI. From March 2024 peritoneal cultures with MRSA and staph lugdunensis. It appears catheter was retained at that time as cell count was not consistent with peritonitis. PD catheter has been removed on this admission and patient has transitioned to hemodialysis with plans to continue dialysis 3 times a week on Thursday and Thursday. (3) GI bleed: Status post endoscopy (4) Peripheral vascular angioplasty status: Recent angioplasty of the right lower extremity to facilitate wound healing. Patient has known peripheral vascular disease. Discussed with patient that her wound healing will likely to be delayed and complicated owing to peripheral vascular disease. Plan Plan: Discontinue meropenem and vancomycin Changed treatment to cefepime 2 g IV postdialysis and daptomycin 8 mg/kg IV postdialysis. Both antibiotics to be given 3 times a week after dialysis. Obtain baseline CRP and CPK. Would recommend discharge on the above regimen of cefepime and daptomycin over the next 6 weeks until 09/17/24) for osteomyelitis of the calcaneum. This regimen will additionally treat for PD peritonitis. Recommend weekly labs including CBC, creatinine, LFTs, CPK and CRP to be faxed over to the infectious disease clinic for review. Discussed potential complications of cefepime and daptomycin with the patient. She is agreeable to proceed with the same. Follow-up with ID clinic in 4 weeks. Continue close follow-up with wound care clinic after discharge. Discussed with patient that her healing may be prolonged and complicated by underlying peripheral vascular disease. With recent angioplasty intervention, hope is that her blood supply would be restored to the point to enable adequate antibiotic delivery to the foot Thank you for this consult. Please call with any further questions or concerns or clinical changes. Consult Attestations Medical Necessity Statement: per admitting Coding Level of Care Code Acute Code for Chg Fwd High MDM includes number and complexity of problems actively addressed during encounter, amount and/or complexity of data reviewed/ordered and described risk of complication, morbidity or mortality of management as documented Diagnoses Osteomyelitis M86.9 Peritoneal dialysis catheter infection T85.71XA GI bleed K92.2 Peripheral vascular angioplasty status Z98.62
[2024-08-06] MEDS: atorvastatin 40 mg Tablet PO (17:35)
[2024-08-06] MEDS: insulin lispro 100 unit/1 mL SUBCUT (17:37)
--- NOTE | 2024-08-06 18:17 | PC.NURSE ---
Dressing change delayed d/t waiting for Dr. Garg/podiatry to round. Will notify Tahira Paniagua LPN of need for dressing change during night if Dr. Garg does not arrive.
--- NOTE | 2024-08-06 19:15 | PC.HD ---
Pt arrived to dialysis with no dressing over catheter, unprotected under hospital gown, pt doesn't know what happened to the dressing. Dr Humphrey notified and site cleaned and dressed.
[2024-08-06] MEDS: DAPTOMYCIN IV (20:09)
[2024-08-06] MEDS: SODIUM CHLORIDE 0.9% IV (20:09)
[2024-08-06 20:31] LABS: Glucose Point of Care 67 mg/dL (70-110)
[2024-08-06] MEDS: cefepime 2,000 MG in sodium chloride 0.9% (plus) 50 ML 100 MG IV (21:43)
[2024-08-06 21:59] LABS: Glucose Point of Care 147 mg/dL (70-110)
[2024-08-07] VITALS (7 sets, daily range): BP systolic 113–155; BP diastolic 52–71; PULSE 71–85; RESP 17–18; TEMP 36.5–37.1; O2SAT 90–97
[2024-08-07] MEDS: heparin 5,000 unit/mL INJ 1 mL 5000 UNIT SUBCUT ×2 (00:37→14:21)
[2024-08-07 04:02] LABS: Basophils # 0.1 10^3/uL (0.0-0.1); Basophils % 0.4 %; Eosinophils # 0.6 10^3/uL (0.0-0.8); Eosinophils % 3.3 %; Hematocrit 28.8 % (36-47); Lymphocytes # 2.1 10^3/uL (0.8-4.8); Lymphocytes % 12.3 %; Mean Corpuscular HGB Conc 31.9 g/dL (30-55); Mean Corpuscular Hemoglobin 31.2 pg (27-33); Mean Corpuscular Volume 97.6 fl (85-98); Mean Platelet Volume 8.6 fL (7.4-10.4); Monocytes # 1.1 10^3/uL (0.2-0.9); Monocytes % 6.6 %; Neutrophils # 12.55 10^3/uL (1.8-7.7); Neutrophils % 74.1 %; Nucleated Red Blood Cells % 0.1 %; Platelet Count 216 10^3/cmm (157-399); Red Blood Count 2.95 10^6/uL (3.85-5.65); Red Cell Distribution Width 16.9 % (12.1-15.1); White Blood Count 16.93 10^3/uL (3.29-11.43)
[2024-08-07 04:23] LABS: Creatine Phosphokinase 83 U/L (26-192)
[2024-08-07 04:26] LABS: Alanine Aminotransferase 14 U/L (0-33); Albumin Level 2.4 g/dL (3.5-5.2); Alkaline Phosphatase 73 U/L (35-105); Anion Gap 14.4 (5-19); Aspartate Amino Transferase 12 U/L (0-32); Blood Urea Nitrogen 11 mg/dL (8-23); Calcium 7.8 mg/dL (8.5-10.5); Carbon Dioxide 26 mmol/L (22-29); Chloride 104 mmol/L (98-107); Globulin 2.3 g/dL (1.3-4.6); Glucose 115 mg/dL (65-115); Osmolality Calculated 292 mOsm/kg (285-295); Potassium 3.4 mmol/L (3.5-5.1); Sodium 141 mmol/L (136-145); Total Bilirubin 0.4 mg/dL (0.15-1.2); Total Protein 4.7 g/dL (6.6-8.7)
[2024-08-07 06:33] LABS: Glucose Point of Care 144 mg/dL (70-110)
[2024-08-07] MEDS: HYDROcodone-acetaminophen 5-325 mg Tablet 1 TAB PO ×3 (09:12→19:36)
[2024-08-07] MEDS: amiodarone 200 mg Tablet 100 MG PO (09:12)
[2024-08-07] MEDS: sevelamer 800 mg Tablet PO ×3 (09:13→21:42)
[2024-08-07] MEDS: levothyroxine 100 mcg Tablet PO (09:13)
[2024-08-07] MEDS: pantoprazole DR 40 mg Tablet PO ×2 (09:13→17:29)
[2024-08-07] MEDS: losartan 50 mg Tablet PO (09:13)
[2024-08-07] MEDS: b-complex-vitamin c Tablet 1 EACH PO (09:13)
[2024-08-07] MEDS: insulin lispro 100 unit/1 mL SUBCUT ×2 (09:14→17:29)
[2024-08-07 10:55] LABS: Glucose Point of Care 122 mg/dL (70-110)
--- NOTE | 2024-08-07 14:23 | P.PN_ITS ---
Subjective 2 Subjective: No acute events overnight. Today morning seen with patient's daughter at bedside. States she is feeling well. Denies any new complaints. Has remained hemodynamically stable and afebrile. Denies any difficulty in breathing. Pain is well-controlled. Vitals/I&O/Wt Last Vital Signs Temp 98.7 F 08/07/24 11:07 Pulse 71 08/07/24 11:07 Resp 17 08/07/24 07:40 BP 121/52 08/07/24 11:07 Pulse Ox 92 08/07/24 11:07 O2 Del Method Room Air 08/07/24 07:40 08/06/24 08/07/24 08/07/24 22:59 06:59 14:59 Intake Total 440 / 1180 0 / 1180 360 / 360 Output Total 150 / 2150 Balance 290 / -970 0 / -970 360 / 360 Weight last 48 hrs Weight 84.822 kg Weight 84.232 kg Weight 83.461 kg Physical Exam 2 Narrative: General exam is a white female no distress Neck is supple Cardiovascular regular rate and rhythm Lungs clear no wheezing or crackles Abdomen no pain or tenderness, positive bowel sounds exam Corral noted Extremities no cyanosis clubbing. Cap refill good. Heel ulcer with dressing noted Urinary Catheter Management: Corral: Cath Placed During This Visit: yes, but has since been removed by the nurse Reason for Continuing Indwelling Catheter: Decision to DC Catheter Urinary Catheter Date of Insertion: 08/01/24 Urinary Catheter Time of Insertion: 16:53 Date Urinary Catheter Removed: 08/06/24 Time Urinary Catheter Discontinued: 15:26 Data 08/07/24 02:59 08/07/24 02:59 Micro: Microbiology 08/02/24 Unknown Anaerobic Culture - Preliminary Foot - Right A&P Assessment and plan (1) Sepsis: Patient has displayed findings suggestive of sepsis. Multiple eligible infectious sources including heel ulcer, UTI, peritoneal infection, or other abdominal pathology considering free air on CT. Peritoneal fluid findings from 08/01 suggestive of bacterial peritonitis. Right foot ulcer tissue culture reveal gram negative rods. Anaerobic culture shows no anaerobes isolated to date. Urine cultures negative. Blood and peritoneal fluid cultures negative to date. Continue vancomycin and meropenem. Meropenem is used secondary to penicillin allergy listed. Note that she has had multiple resistant organisms in the past such as MRSA and Enterobacter Sepsis criteria met with borderline hypotension, hypothermia, leukocytosis, possible source, abnormal CT imaging, hypoglycemia. She required institution of norepinephrine during dialysis 2 days ago, likely secondary to dialysis as well as blood loss. Has since been tapered off. Sepsis resolved. (2) Foot ulcer, right: Postoperative day #3 status post debridement Tissue cultures revealed gram negative rods Awaiting anaerobic culture results. No anerobes isolated to date. Continue IV antibiotics of vancomycin and meropenem Will need prolonged antibiotic course secondary to osteomyelitis present Infectious disease consult. May need PICC line, if antibiotic cannot be given with hemodialysis. (3) GI bleed: Was having dark, tarry stools associated with acute blood loss anemia. Required 2 pRBC transfusions. Epogen as directed by nephrology. EGD performed yesterday showed no esophageal or duodenal abnormalities, but a 1.3cm bleeding polyp in pylorus protruding into duodenum was excised and fulgurated. Colonoscopy also performed yesterday showed a semipedunculated [id number] polyp which was excised. There was no active bleeding from this polyp. Continue Protonix. Can switch to p.o. (4) ESRD (end stage renal disease) on dialysis: Nephrology consultation appreciated. On 08/02, peritoneal dialysis catheter was removed and right tunneled hemodialysis catheter was placed. New hemodialysis catheter successfully utilized for 2 hemodialysis sessions, most recent being yesterday morning. CBC, CMP daily. (5) Hypoglycemia associated with type 2 diabetes mellitus: Resolved Insulin has not been reinstituted at this point. (6) Hypomagnesemia: Resolved Plan Recent past history of peritonitis, UTI. Cultures did not grow any organism this time. White blood cell count and peritoneal fluid was consistent with peritonitis. Deconditioning, severe weakness. PT consult appreciated Peripheral vascular disease Plan for the day: Antibiotics changed to cefepime and daptomycin. Dialysis as per ID recommendations. Patient is agreeable. Hemoglobin stable. Goal blood pressure less than 140/90 mmHg. Continue with newly added losartan. DC Corral catheter. Continue with Protonix twice daily. Heparin 5000 Q12 hourly added yesterday for DVT prophylaxis. Will continue to monitor hemoglobin daily. Full code SCDs for DVT prophylaxis, heparin 5000 Q12 hourly for DVT prophylaxis Protonix will be sufficient for PUD prophylaxis Attestations 2 Medical Necessity Statement*: Requires further hospitalization for management of sepsis in setting of UTI, heel abscess, PD peritonitis post PD catheter removal, initiation of hemodialysis while outpatient dialysis is set up Diagnoses Sepsis A41.9 Foot ulcer, right L97.519 GI bleed K92.2 ESRD (end stage renal disease) on dialysis N18.6; Z99.2 Hypoglycemia associated with type 2 diabetes mellitus E11.649 Hypomagnesemia E83.42
--- NOTE | 2024-08-07 15:18 | PC.NURSE ---
Pt showered, dressing change to right heel completed.
[2024-08-07 16:38] LABS: Glucose Point of Care 192 mg/dL (70-110)
[2024-08-07] MEDS: atorvastatin 40 mg Tablet PO (17:29)
--- NOTE | 2024-08-07 17:31 | P.PN_ITS ---
Subjective 2 Subjective: no new c/o Medications: Reviewed: Yes Vitals/I&O/Wt Last Vital Signs Temp 98.2 F 08/07/24 15:33 Pulse 74 08/07/24 15:33 Resp 18 08/07/24 15:33 BP 113/67 08/07/24 15:33 Pulse Ox 92 08/07/24 15:33 O2 Del Method Room Air 08/07/24 15:33 08/07/24 08/07/24 08/07/24 06:59 14:59 22:59 Intake Total 0 / 1180 360 / 360 Balance 0 / -970 360 / 360 Weight last 48 hrs Weight 84.822 kg Weight 84.232 kg Weight 83.461 kg Physical Exam 2 Narrative: General exam is a white female no distress Neck is supple Cardiovascular regular rate and rhythm Lungs clear no wheezing or crackles Abdomen no pain or tenderness, positive bowel sounds exam Corral noted Extremities no cyanosis clubbing. Cap refill good. Heel ulcer with dressing noted Urinary Catheter Management: Corral: Cath Placed During This Visit: yes, but has since been removed by the nurse Reason for Continuing Indwelling Catheter: Decision to DC Catheter Urinary Catheter Date of Insertion: 08/01/24 Urinary Catheter Time of Insertion: 16:53 Date Urinary Catheter Removed: 08/06/24 Time Urinary Catheter Discontinued: 15:26 Data 08/07/24 02:59 08/07/24 02:59 Micro: Microbiology 08/02/24 Unknown Anaerobic Culture - Preliminary Foot - Right A&P Assessment and plan (1) ESRD (end stage renal disease) on dialysis: 84-year-old lady ESRD- transitioned from PD to HD- repeat HD now, 3 k bath, up to 1 liter fluid removal, 1. Heel ulcer antibiotics as per medicine. s/p debridement Aug 02. 2. ID patient is grown multiple different bacteria such as Enterobacter cloacae and Klebsiella UTI appears like her peritoneal dialysis fluid had Pseudomonas and Staphylococcus hominis. Patient was on multiple antibiotics at this time the patient will get meropenem and vancomycin which I feel will be appropriate. PD catheter removed. Patient's PD fluid consistent with peritonitis .s/p removal of Tenckhoff catheter. HD per TTS schedule 3. Hypotension improved. Blood pressure now normal. 4. Leukocytosis likely from multiple infections. 5. Anemia continue Epogen. Please note recent iron saturation of 97% and ferritin of 2000 please do not give any iron. 6. Hyponatremia likely from ESRD and infection. Improved with dialysis. 7. Hypoglycemia improved . The patient was seen examined using audiovisual equipment with the aid of a nurse. Plan see above Attestations 2 Medical Necessity Statement*: per yony Coding Level of Care Code Acute Code for Chg Fwd Diagnoses ESRD (end stage renal disease) on dialysis N18.6; Z99.2
[2024-08-07 20:17] LABS: Glucose Point of Care 65 mg/dL (70-110)
[2024-08-07 20:40] LABS: Glucose Point of Care 74 mg/dL (70-110)
[2024-08-08] VITALS (7 sets, daily range): BP systolic 145–156; BP diastolic 57–86; PULSE 77–94; RESP 16–17; TEMP 36.7–37; O2SAT 92–94
[2024-08-08] MEDS: heparin 5,000 unit/mL INJ 1 mL 5000 UNIT SUBCUT (01:56)
[2024-08-08 05:29] LABS: Alanine Aminotransferase 14 U/L (0-33); Albumin Level 2.5 g/dL (3.5-5.2); Alkaline Phosphatase 83 U/L (35-105); Anion Gap 15.5 (5-19); Aspartate Amino Transferase 11 U/L (0-32); Blood Urea Nitrogen 16 mg/dL (8-23); Carbon Dioxide 25 mmol/L (22-29); Chloride 100 mmol/L (98-107); Globulin 2.7 g/dL (1.3-4.6); Glucose 94 mg/dL (65-115); Osmolality Calculated 285 mOsm/kg (285-295); Potassium 3.5 mmol/L (3.5-5.1); Sodium 137 mmol/L (136-145); Total Bilirubin 0.4 mg/dL (0.15-1.2); Total Protein 5.2 g/dL (6.6-8.7)
[2024-08-08 05:34] LABS: Basophils # 0.1 10^3/uL (0.0-0.1); Basophils % 0.3 %; Eosinophils # 0.5 10^3/uL (0.0-0.8); Eosinophils % 2.4 %; Hematocrit 29.1 % (36-47); Lymphocytes % 9.8 %; Mean Corpuscular HGB Conc 31.3 g/dL (30-55); Mean Corpuscular Hemoglobin 31.2 pg (27-33); Mean Corpuscular Volume 99.7 fl (85-98); Mean Platelet Volume 9.3 fL (7.4-10.4); Monocytes # 1.2 10^3/uL (0.2-0.9); Monocytes % 5.7 %; Neutrophils # 16.11 10^3/uL (1.8-7.7); Neutrophils % 79.6 %; Nucleated Red Blood Cells % 0 %; Platelet Count 236 10^3/cmm (157-399); Red Blood Count 2.92 10^6/uL (3.85-5.65); Red Cell Distribution Width 16.9 % (12.1-15.1); White Blood Count 20.26 10^3/uL (3.29-11.43)
[2024-08-08 06:32] LABS: Glucose Point of Care 105 mg/dL (70-110)
[2024-08-08] MEDS: pantoprazole DR 40 mg Tablet PO (08:17)
[2024-08-08] MEDS: amiodarone 200 mg Tablet 100 MG PO (08:17)
[2024-08-08] MEDS: b-complex-vitamin c Tablet 1 EACH PO (08:17)
[2024-08-08] MEDS: HYDROcodone-acetaminophen 5-325 mg Tablet 1 TAB PO (08:18)
[2024-08-08] MEDS: sevelamer 800 mg Tablet PO (08:18)
[2024-08-08] MEDS: levothyroxine 100 mcg Tablet PO (08:18)
[2024-08-08] MEDS: losartan 50 mg Tablet PO (08:22)
--- NOTE | 2024-08-08 09:12 | P.PN_ITS ---
Subjective 2 Subjective: no new c/o Medications: Reviewed: Yes Vitals/I&O/Wt Last Vital Signs Temp 98.3 F 08/08/24 07:37 Pulse 87 08/08/24 07:37 Resp 17 08/08/24 07:37 BP 145/86 08/08/24 08:22 Pulse Ox 94 08/08/24 07:37 O2 Del Method Room Air 08/08/24 07:37 08/07/24 08/08/24 08/08/24 22:59 06:59 14:59 Intake Total 1040 / 1400 120 / 1520 Balance 1040 / 1400 120 / 1520 Weight last 48 hrs Weight 82.1 kg Weight 84.822 kg Weight 84.232 kg Physical Exam 2 Narrative: General exam is a white female no distress Neck is supple Cardiovascular regular rate and rhythm Lungs clear no wheezing or crackles Abdomen no pain or tenderness, positive bowel sounds exam Corral noted Heel ulcer with dressing noted Urinary Catheter Management: Corral: Cath Placed During This Visit: yes, but has since been removed by the nurse Reason for Continuing Indwelling Catheter: Decision to DC Catheter Urinary Catheter Date of Insertion: 08/01/24 Urinary Catheter Time of Insertion: 16:53 Date Urinary Catheter Removed: 08/06/24 Time Urinary Catheter Discontinued: 15:26 Data 08/08/24 04:04 08/08/24 04:04 Micro: Microbiology 08/02/24 Unknown Anaerobic Culture - Preliminary Foot - Right A&P Assessment and plan (1) ESRD (end stage renal disease) on dialysis: 84-year-old lady ESRD- transitioned from PD to HD- repeat HD now, 3 k bath, up to 1 liter fluid removal, 1. Heel ulcer antibiotics as per medicine. s/p debridement Aug 02. 2. ID patient is grown multiple different bacteria such as Enterobacter cloacae and Klebsiella UTI appears like her peritoneal dialysis fluid had Pseudomonas and Staphylococcus hominis. Patient was on multiple antibiotics at this time the patient will get meropenem and vancomycin which I feel will be appropriate. PD catheter removed. Patient's PD fluid consistent with peritonitis .s/p removal of Tenckhoff catheter. HD per TTS schedule 3. Hypotension improved. Blood pressure now normal. 4. Leukocytosis likely from multiple infections. 5. Anemia continue Epogen. Please note recent iron saturation of 97% and ferritin of 2000 please do not give any iron. 6. Hyponatremia likely from ESRD and infection. Improved with dialysis. 7. Hypoglycemia improved . The patient was seen examined using audiovisual equipment with the aid of a nurse. Plan see above Attestations 2 Medical Necessity Statement*: per medicne Coding Level of Care Code Acute Code for Chg Fwd Diagnoses ESRD (end stage renal disease) on dialysis N18.6; Z99.2
[2024-08-08 10:38] LABS: Glucose Point of Care 137 mg/dL (70-110)
[2024-08-08 10:52] LABS: Glucose Point of Care 123 mg/dL (70-110)
--- NOTE | 2024-08-08 11:12 | P.DS_ITS ---
Discharge Providers Date of Admission: 08/01/24 10:12 Date of Discharge: August 08, 2024 Attending Provider at Admission: Gabriele Rosales MD Attending Provider at Discharge: Kin Aggarwal Primary Care Provider: Mann Garduno MD Diagnoses at Discharge Discharge Diagnosis (1) ESRD (end stage renal disease) on dialysis: Status: Acute Reason for Visit Reason for Visit: Hypoglycemic Hospital Course Hospital Course Pleasant 84-year-old lady with ESRD on peritoneal dialysis, atrial fibrillation on anticoagulation, CHF, UTI, multiple other medical problems including problems with the right heel, with concern for osteomyelitis; was admitted and treated after found to be hypoglycemic, having malaise, sweating, with sepsis on presentation, still on antibiotics with linezolid, cefdinir after discharge earlier in the month with Levaquin added on the , with coverage for Klebsiella in urine, Pseudomonas in her wound, Staph hominis and peritoneal fluid. Was found to have peritonitis related to PD catheter fracture which was removed by surgery. During current admission was found to have left heel abscess with osteomyelitis, podiatry and underwent debridement. Continue with wound care. Continued with IV antibiotics, seen by infectious disease. Soft tissue right foot growing Morganella morganii, Enterococcus faecalis. Staph hominis in peritoneal fluid on 07/27. Diabetic suggested as per ID recommendations to cefepime, daptomycin. She is to continue and complete course of antibiotics with hemodialysis Thursday, , Thursday with anticipated stop date 09/09/2024. Continue weekly CBC, creatinine, LFT, CK and CRP. During hospitalization additionally with anemia in setting of GI bleed, found to have a bleeding pyloric polyp on EGD which was removed. Continues on PPI and is to follow-up with surgery in office. Physical Exam Const: COMMON NORMALS: patient oriented x3 and alert GENERAL APPEARANCE: cooperative ORIENTATION/CONSCIOUSNESS: Yes awake HENMT: COMMON NORMALS: oropharynx normal Neck/C-Spine: COMMON NORMALS: no JVD Chest: OTHER: R chest tunnelled catheter Resp: COMMON NORMALS: normal respiratory effort and clear to auscultation bilaterally AUSCULTATION: clear to auscultation bilaterally Cardio: COMMON NORMALS: no JVD, regular rhythm, S1 normal heart sound present, S2 normal heart sound present and No murmurs present (Cardio) RHYTHM: regular rhythm HEART SOUNDS: S1 normal heart sound present and S2 normal heart sound present GI: COMMON NORMALS: Normal to inspection, nondistended, normoactive bowel sounds present, Soft to palpation and non-tender PALPATION: Yes Soft to palpation Extremity: COMMON NORMALS: no joint enlargement and no pedal edema OTHER: R foot without bleeding or strikethrough Neuro: COMMON NORMALS: patient oriented x3 and moves all extremities SENSORIUM/ORIENTATION: Yes alert Urinary Catheter Management: [place]: Cath Placed During This Visit: yes, but has since been removed by the nurse Reason for Continuing Indwelling Catheter: Decision to DC Catheter Urinary Catheter Date of Insertion: 08/01/24 Urinary Catheter Time of Insertion: 16:53 Date Urinary Catheter Removed: 08/06/24 Time Urinary Catheter Discontinued: 15:26 Discharge Data Studies Completed and Pending Completed Studies During Hospitalization Category Date Time Status CT abdomen pelvis wo con [id number] Stat Cat Scan 08/01/24 08:50 Completed CXRP [XR chest 1V portable [id number]] Routine Exams 08/02/24 10:51 Completed XR ankle RT 2V [id number] Routine Exams 08/01/24 11:26 Completed XR chest 1V portable [id number] Stat Exams 08/01/24 08:50 Completed Pending at discharge Category Date Time Status Anaerobic Culture Routine Lab 08/02/24 Results Complete Blood Count w/Auto AM LABS Lab 08/09/24 04:00 Ordered Comprehensive Metabolic Panel AM LABS Lab 08/09/24 04:00 Ordered SARS Covid-2 Antigen Routine Lab 08/08/24 10:34 Uncollected Pathology: Surgical [PTH] Routine Pth 08/04/24 14:21 Received Radiology Impressions Abdomen/Pelvis CT 08/01/24 08:50 IMPRESSION: 1. Moderate amount of intraperitoneal free air. Source of the free air is not identified. Largest amount of free air seems to be at the GE junction and near the proximal stomach. Slight change in attenuation of the stomach mucosa. No definite source of perforation is identified. Correlate with recent manipulation of the peritoneal dialysis catheter. 2. No GI tract obstruction. 3. Extensive vascular calcifications including the mesenteric arteries. 4. Moderate cardiomegaly. 5. Bilateral renal atrophy. No free fluid. Notified Zachariah Brock DO at 08/01/2024 9:[address] Rosales at 08/01/2024 9:56 AM. Ankle X-Ray 08/01/24 11:26 IMPRESSION: Soft tissue gas noted dorsal to the calcaneus. There is slight undulation of posterior calcaneal cortex; please refer to recent CT report for additional details. C-Arm Fluoroscopy 08/02/24 08:26 IMPRESSION: Intraoperative imaging during dialysis catheter placement. Chest X-Ray 08/02/24 10:51 IMPRESSION: 1. Minimal right pleural effusion. 2. Diffuse bilateral linear interstitial pulmonary opacities. Possible acute infiltrates, mild edema or pulmonary scarring. 3. Borderline prominence of the cardiac silhouette. 4. Degenerative and postsurgical changes are demonstrated, as described above. Laboratory Results WBC 20.26 10^3/uL (3.29-11.43) H 08/08/24 04:04 RBC 2.92 10^6/uL (3.85-5.65) L 08/08/24 04:04 Hgb 9.10 g/dL (11.27-16.99) L 08/08/24 04:04 Hct 29.1 % (36-47) L 08/08/24 04:04 MCV 99.7 fl (85-98) H 08/08/24 04:04 MCH 31.2 pg (27-33) 08/08/24 04:04 MCHC 31.3 g/dL (30-55) 08/08/24 04:04 RDW 16.9 % (12.1-15.1) H 08/08/24 04:04 Plt Count 236 10^3/cmm (157-399) 08/08/24 04:04 MPV 9.3 fL (7.4-10.4) 08/08/24 04:04 Neut % (Auto) 79.6 % 08/08/24 04:04 Lymph % (Auto) 9.8 % 08/08/24 04:04 [place] % (Auto) 5.7 % 08/08/24 04:04 Eos % (Auto) 2.4 % 08/08/24 04:04 Baso % (Auto) 0.3 % 08/08/24 04:04 Neut # (Auto) 16.11 10^3/uL (1.8-7.7) H 08/08/24 04:04 Lymph # (Auto) 2.0 10^3/uL (0.8-4.8) 08/08/24 04:04 [place] # (Auto) 1.2 10^3/uL (0.2-0.9) H 08/08/24 04:04 Eos # (Auto) 0.5 10^3/uL (0.0-0.8) 08/08/24 04:04 Baso # (Auto) 0.1 10^3/uL (0.0-0.1) 08/08/24 04:04 Nucleated RBC % (auto) 0 % 08/08/24 04:04 Total Counted Not Reportable 08/01/24 20:11 Nucleated RBCs # 0.0 /100WBC 08/08/24 04:04 Sodium 137 mmol/L (136-145) 08/08/24 04:04 Potassium 3.5 mmol/L (3.5-5.1) 08/08/24 04:04 Chloride 100 mmol/L (98-107) 08/08/24 04:04 Carbon Dioxide 25 mmol/L (22-29) 08/08/24 04:04 Anion Gap 15.5 (5-19) 08/08/24 04:04 BUN 16 mg/dL (8-23) 08/08/24 04:04 Creatinine 2.7 mg/dL (0.5-0.9) H 08/08/24 04:04 GFR Calculation Not Reportable 08/08/24 04:04 Glucose 94 mg/dL (65-115) 08/08/24 04:04 POC Glucose 123 mg/dL (70-110) H 08/08/24 10:46 Calculated Osmolality 285 mOsm/kg (285-295) 08/08/24 04:04 Lactic Acid 1.7 mmol/L (0.5-2.2) 08/01/24 07:26 Calcium 8.0 mg/dL (8.5-10.5) L 08/08/24 04:04 Phosphorus 3.5 mg/dL (2.5-4.5) 08/04/24 04:01 Magnesium 2.2 mg/dL (1.7-2.3) 08/06/24 02:55 Total Bilirubin 0.4 mg/dL (0.15-1.2) 08/08/24 04:04 AST 11 U/L (0-32) 08/08/24 04:04 ALT 14 U/L (0-33) 08/08/24 04:04 Alkaline Phosphatase 83 U/L (35-105) 08/08/24 04:04 Creatine Kinase 83 U/L (26-192) 08/07/24 02:59 C-Reactive Protein 83.0 mg/L (0.0-4.9) H 08/07/24 02:59 Total Protein 5.2 g/dL (6.6-8.7) L 08/08/24 04:04 Albumin 2.5 g/dL (3.5-5.2) L 08/08/24 04:04 Globulin 2.7 g/dL (1.3-4.6) 08/08/24 04:04 Urine Color Yellow (Yellow) 08/01/24 16:42 Urine Appearance Turbid (CLEAR) A 08/01/24 16:42 Urine pH 5.5 (5-7) 08/01/24 16:42 Ur Specific [place] 1.019 (1.005-1.030) 08/01/24 16:42 Urine Protein 1+ (Negative) A 08/01/24 16:42 Urine Glucose (UA) Negative (Normal) 08/01/24 16:42 Urine Ketones Negative (Negative) 08/01/24 16:42 Urine Blood 2+ (Negative) A 08/01/24 16:42 Urine Nitrate Negative (Negative) 08/01/24 16:42 Urine Bilirubin Negative (Negative) 08/01/24 16:42 Urine Urobilinogen 1.0 mg/dL (Negative) 08/01/24 16:42 Ur Leukocyte Esterase 3+ (Negative) A 08/01/24 16:42 Urine RBC 6-10 /hpf (0-2) 08/01/24 16:42 Urine WBC >100 /hpf (0-5) H 08/01/24 16:42 Ur Squamous Epith Cells 0-5 /hpf (0-5) 08/01/24 16:42 Amorphous Sediment Not Reportable 08/01/24 16:42 Urine Bacteria None seen /hpf (NONE) 08/01/24 16:42 Hyaline Casts 4.95 /lpf 08/01/24 16:42 Pleural Color Colorless (Pale Yellow) 08/01/24 20:11 Pleural Appearance Cloudy (CLEAR) 08/01/24 20:11 Pleural WBC 542.000 /uL (0-1000) 08/01/24 20:11 Pleural RBC 0.000 10^3/uL 08/01/24 20:11 Pleural Other Cells Not Reportable 08/01/24 20:11 Pleural Polynuclear % 83 % 08/01/24 20:11 Pleural Mononuclear % 17 % 08/01/24 20:11 Vancomycin Trough 16.0 ug/mL (10-15) H 08/04/24 04:01 Random Vancomycin 15.5 ug/mL (20.0-40.0) L 08/06/24 02:55 Hep Bs Antigen Non-reactive (Nonreactive) 08/02/24 04:24 Hep Bs Antibody > 1000.0 (11.5-1000) H 08/02/24 04:24 Hep B Core Total Ab Non-reactive (Nonreactive) 08/02/24 04:24 Hepatitis C Antibody Non-reactive (Nonreactive) 08/02/24 04:24 Path Cons w/Slide Yes 08/01/24 20:11 Blood Type A Positive 08/02/24 17:42 Rho(D) Type Rh positive 08/02/24 17:42 Antibody Screen Negative 08/02/24 17:42 Crossmatch See Detail 08/02/24 17:42 Vitals Last Vital Signs Temp 98.3 F 08/08/24 07:37 Pulse 87 08/08/24 07:37 Resp 17 08/08/24 07:37 BP 145/86 08/08/24 08:22 Pulse Ox 94 08/08/24 07:37 O2 Del Method Room Air 08/08/24 07:37 Discharge Plan Discharge Patient Disposition: Xfer SNF Condition: Stable Prescriptions: New cefepime 2 gram recon soln See Rx Instructions .ROUTE .COMPLEX Rx Instructions: 2g TuThuSa after HD daptomycin 500 mg recon soln See Rx Instructions .ROUTE .COMPLEX Rx Instructions: 640mg TuThuSa after HD administer over 30 mins losartan 50 mg Tablet 50 mg PO DAILY Qty: 90 0RF pantoprazole 40 mg Tablet,Delayed Release (Dr/Ec) 40 mg PO BID Qty: 180 0RF insulin lispro [Humalog U-100 Insulin] 100 unit/mL Solution See Rx Instructions .ROUTE .COMPLEX Qty: 10 0RF Rx Instructions: ACHS Glucose: 141-180 - 2 units 181-220 - 3 221-260 - 4 261-300 - 5 301-350 - 6 351-400 - 7 >400 - 8 units Continued spironolactone 25 mg tablet 12.5 mg PO DAILY Qty: 30 6RF hydrocodone-acetaminophen 5-325 mg tablet 1 tab PO Q8H PRN (Reason: pain) 30 Days Qty: 45 0RF (DME) Contour Next Test Strips Strip See Rx Instructions .ROUTE .COMPLEX Qty: 300 6RF Dose Instruction: USE 1 STRIP TO CHECK GLUCOSE THREE TIMES DAILY Rx Instructions: USE 1 STRIP TO CHECK GLUCOSE THREE TIMES DAILY (DME) blood-glucose meter [OneTouch Ultra2 Meter] Misc See Rx Instructions .Route Qty: 1 0RF Rx Instructions: As directed (DME) lancets [OneTouch Delica Plus Lancet] 33 gauge misc See Rx Instructions .Route Qty: 100 12RF Rx Instructions: As directed (DME) pen needle, diabetic [BD Ultra-Fine Short Pen Needle] 31 gauge x 5/16 needle See Rx Instructions .ROUTE .COMPLEX Qty: 100 6RF Dose Instruction: USE TO INJECT INSULIN 2-3 TIMES A DAY Rx Instructions: USE TO INJECT INSULIN 2-3 TIMES A DAY amiodarone 100 mg tablet 100 mg PO DAILY Qty: 30 3RF (DME) OneTouch Ultra Test Strip See Rx Instructions .ROUTE .COMPLEX Qty: 200 3RF Dose Instruction: USE TO CHECK GLUCOSE THREE TIMES DAILY Rx Instructions: USE TO CHECK GLUCOSE THREE TIMES DAILY furosemide 40 mg tablet 80 mg PO BID Qty: 180 3RF coenzyme Q10 [CoQ-10] 100 mg Capsule 100 mg PO BEDTIME RenaPlex-D 800 mcg-12.5 mg -2,000 unit tablet 1 tab PO DAILY atorvastatin 40 mg tablet 40 mg PO QPM polyethylene glycol 3350 [Miralax] 17 gram/dose Powder 17 g PO PRN PRN (Reason: Constipation) doxazosin 2 mg tablet 2 mg PO BEDTIME aspirin 81 mg Tablet,Delayed Release (Dr/Ec) 81 mg PO DAILY 30 Days Qty: 30 0RF levothyroxine 100 mcg capsule 100 mcg PO DAILY 30 Days Qty: 30 0RF Eliquis 5 mg tablet 2.5 mg PO BID mirtazapine 15 mg tablet 15 mg PO BEDTIME PRN (Reason: insomnia ) Discontinued potassium chloride 20 mEq tablet extended release 10 meq PO BEDTIME insulin glargine [Lantus Solostar U-100 Insulin] 100 unit/mL (3 mL) insulin pen 25 unit SUBCUT QAM Qty: 15 0RF cefdinir 300 mg capsule 300 mg PO BID 14 Days Qty: 28 0RF linezolid [Zyvox] 600 mg tablet 600 mg PO BID 14 Days Qty: 28 0RF levofloxacin 250 mg tablet 250 mg PO DAILY 5 Days Qty: 5 0RF Discharge Orders: Discharge Order (Routine); Ordered 08/08/24 Ordered By: Kin Aggarwal Referrals: [facility] [Provider Group] - 09/06/24 10:00 am [facility] [Outside] - 08/09/24 1:10 pm (Thursday, , Thursday @ 1:10 is current chair time. ) Carter Kowk DO [Physician] - 2 weeks (We have notified your physician's clinic of the need for a follow-up appointment to be scheduled. If you have not heard from them within the next 2 business days, please call them directly. ) Mann Garduno MD [Primary Care Provider] - WOUND [facility]ARE CLINIC, [Staff Physician] - 08/11/24 2:15 pm () Discharge Diet: Diabetic Discharge Activity: Limit activity as instructed and As per PT/OT instructions Patient Instructions: Cefepime (By injection), Daptomycin (By injection), Dialysis Nutrition Plan (DC), Acute Wound Care (DC), Hemodialysis (DC), GI Post Discharge Instructions w/ Anesthesia, Opioid Safety, Post Anesthesia Care Activity Restrictions/Additional Instructions: Continue antibiotic treatment with cefepime and daptomycin. Weekly labs including CBC, creatinine, LFTs, CPK and CRP to be faxed over to the infectious disease clinic for review. Wound care with daily Betadine wet-to-dry. Follow up with wound care clinic. Weightbearing as tolerated right lower extremity. Prevalon boots while at rest. Avoid hypoglycemia. Stop Lantus. Cotinue short acting insulin by sliding scale. Discharge Attestations Time Spent in Discharge Care*: greater than 30 min Status at Discharge: Cognitive status at discharge: cognitively intact , Behavioral status at discharge: cooperative , Quality Metrics Clinical Quality Measures [ No reported AMI, CVA or VTE this stay] Coding Level of Care Code 88713 Total time (in minutes) for Discharge: 55 Diagnoses ESRD (end stage renal disease) on dialysis N18.6; Z99.2
--- NOTE | 2024-08-08 12:28 | PC.NURSE ---
Attempted to call report to [facility]. Placed on hold for 10 minutes, then the call drops.
--- NOTE | 2024-08-08 12:39 | PC.SOCIAL ---
IMM updated IMM dated and initialed, copy placed in chart and copy given to patient
[2024-08-08 12:40] LABS: SARS Covid-2 Antigen Negative (Negative)
--- NOTE | 2024-08-08 12:45 | PC.NURSE ---
Report called to Margy at [facility].
== END 2024-08-08 14:26 | disposition skilled nursing facility (03) | DRG 853 ==
LOC: ER 08:45 → ICU 10:12 → MEDSURG 08-04 17:13
PROVIDERS: Emergency Medicine; Internal Medicine Nephrology; Podiatrist Foot & Ankle Surgery; Student in an Organized Health Care Education/Training Program; Surgery; Admitting Provider Internal Medicine; Emergency Provider Family Medicine; PCP Family Medicine; Visit Provider Internal Medicine
PROC: 0WPG33Z Removal of Infusion Device from Peritoneal Cavity, Percutaneous Approach (ICD-10-PCS; principal; 2024-08-02 11:00)
PROC: 0WPG33Z Removal of Infusion Device from Peritoneal Cavity, Percutaneous Approach (ICD-10-PCS; CPT 49422; 2024-08-02 11:00)
PROC: 0QBL0ZZ Excision of Right Tarsal, Open Approach (ICD-10-PCS; 2024-08-02 11:00)
PROC: 0DJ08ZZ Inspection of Upper Intestinal Tract, Via Natural or Artificial Opening Endoscopic (ICD-10-PCS; CPT 43235; principal; 2024-08-04 12:35)
PROC: 0DJD8ZZ Inspection of Lower Intestinal Tract, Via Natural or Artificial Opening Endoscopic (ICD-10-PCS; CPT 45378; 2024-08-04 12:35)
DX: A41.9 Sepsis, unspecified organism (principal); K65.2 Spontaneous bacterial peritonitis; N18.6 End stage renal disease; I12.0 Hypertensive chronic kidney disease with stage 5 chronic kidney disease or end stage renal disease; M86.9 Osteomyelitis, unspecified; D62 Acute posthemorrhagic anemia; T85.71XA Infection and inflammatory reaction due to peritoneal dialysis catheter, initial encounter; N39.0 Urinary tract infection, site not specified; E87.1 Hypo-osmolality and hyponatremia; E11.22 Type 2 diabetes mellitus with diabetic chronic kidney disease; Z99.2 Dependence on renal dialysis; E11.51 Type 2 diabetes mellitus with diabetic peripheral angiopathy without gangrene; E11.649 Type 2 diabetes mellitus with hypoglycemia without coma; E11.69 Type 2 diabetes mellitus with other specified complication; I48.91 Unspecified atrial fibrillation; M19.90 Unspecified osteoarthritis, unspecified site; D63.1 Anemia in chronic kidney disease; E03.9 Hypothyroidism, unspecified; K31.7 Polyp of stomach and duodenum; K63.5 Polyp of colon; R68.0 Hypothermia, not associated with low environmental temperature; Y73.8 Miscellaneous gastroenterology and urology devices associated with adverse incidents, not elsewhere classified; L89.610 Pressure ulcer of right heel, unstageable; B95.8 Unspecified staphylococcus as the cause of diseases classified elsewhere; B96.89 Other specified bacterial agents as the cause of diseases classified elsewhere; B96.5 Pseudomonas (aeruginosa) (mallei) (pseudomallei) as the cause of diseases classified elsewhere; B96.1 Klebsiella pneumoniae [K. pneumoniae] as the cause of diseases classified elsewhere; E83.42 Hypomagnesemia; I49.3 Ventricular premature depolarization; Z87.440 Personal history of urinary (tract) infections; Z86.14 Personal history of Methicillin resistant Staphylococcus aureus infection; Z79.82 Long term (current) use of aspirin; Z79.4 Long term (current) use of insulin; Z79.01 Long term (current) use of anticoagulants; Z87.01 Personal history of pneumonia (recurrent); Z86.16 Personal history of COVID-19; Z87.891 Personal history of nicotine dependence; Z98.1 Arthrodesis status; Z11.52 Encounter for screening for COVID-19
CPT/HCPCS: 36415; 36416; 36430; 43251; 45385; 51702; 71045; 73600; 74176; 77001; 80048; 80053; 80202; 80503; 81001; 82274; 82550; 82962; 83605; 83735; 84100; 85014; 85018; 85025; 86140; 86704; 86706; 86803; 86850; 86900; 86920; 87040; 87070; 87075; 87077; 87086; 87186; 87205; 87340; 87426; 88305; 89050; 90935; 93005; 96365; 96367; 96372; 96375; 96376; 97110; 97162; 97167; 97530; 97535; 99285; J0692; J0696; J0878; J1171; J1644; J1815; J2185; J2371; J2470; J2704; J3010; J3370; J3475; J3490; J7030; J7050; J7799; P9016; P9040; Q3014; Q5105

== ENCOUNTER 2024-08-10 15:20 | Inpatient (IN) | payer MEDICARE, SELFPAY ==
[2024-08-10] VITALS (15 sets, daily range): BP systolic 117–167; BP diastolic 55–67; PULSE 69–91; RESP 10–22; TEMP 37; O2SAT 94–98; BMI 32.9; BMI 32.3
--- NOTE | 2024-08-10 15:29 | ECG_ITS ---
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1940 Requested By: Zachariah Rondon Order Number: [id number] Casper MD: MATHEW SPENCER Measurements Intervals Thelma Rate: 69 P: 56 NV: 180 QRS: 47 QRSD: 90 T: 78 QT: 403 QTc: 434 Interpretive Statements SINUS RHYTHM WITH FREQUENT VENTRICULAR PREMATURE COMPLEXES LOW QRS VOLTAGE IN PRECORDIAL LEADS [QRS DEFLECTION < 1.0 mV IN CHEST LEADS] SEPTAL MYOCARDIAL INFARCTION , PROBABLY OLD [40+ ms Q WAVE IN V1/V2] Compared to ECG 08/01/2024 05:42:45 Myocardial infarct finding now present Electronically Signed On 08-10-2024 17:16:05 MIRROR SILVERER by MATHEW SPENCER [email or web address]
--- NOTE | 2024-08-10 15:29 | XRR_ITS ---
PROCEDURE INFORMATION: Exam: XR Chest Exam date and time: 08/10/2024 3:33 PM Age: 84 years old Clinical indication: Cough; Additional info: Dyspnea/cough TECHNIQUE: Imaging protocol: Radiologic exam of the chest. Views: 1 view. COMPARISON: CR XR chest 1V portable [id number] 08/02/2024 11:33 AM FINDINGS: Tubes, catheters and devices: Unchanged appearance of tunneled dialysis catheter without complication. Lungs: Slightly increased diffuse bilateral interstitial pulmonary abnormality is edema and/or pneumonitis, possibly superimposed upon fibrosis. Pleural spaces: Unremarkable. No pleural effusion. No pneumothorax. Heart/Mediastinum: Unremarkable. No cardiomegaly. Diaphragm: Unchanged mild elevation of the right hemidiaphragm. Bones/joints: Nothing acute. No change. XR/XR chest 1V portable [id number] IMPRESSION: 1. Slightly increased diffuse bilateral interstitial pulmonary abnormality is edema and/or pneumonitis, possibly superimposed upon fibrosis. 2. Unchanged mild elevation of the right hemidiaphragm.
--- NOTE | 2024-08-10 15:32 | W.ED.AMS ---
Documented by User: Zacharaih Brock, 08/12/24 05:53 HPI - Altered Mental Status General: Chief Complaint: Altered Mental Status Stated Complaint: AMS Time Seen by Provider: 08/10/24 15:26 History of Present Illness: 84-year-old female presents emergency room with altered mental status. She was recently hospitalized and discharged to [facility]. She had peritonitis there is a fractured peritoneal catheter that was removed she had a tunneled dialysis catheter placed she is now getting hemodialysis 3 days a week. She also had a right foot ulcer with osteomyelitis and was discharged home on daptomycin and cefepime. She has altered mental status last half a day had pulled out her IV and has not had any of her IV antibiotics today. Also noted unremarked list that she had been started on Macrobid presumably for a cystitis were trying to get a hold of the culture results. She is completely altered and unable to give any contribution to her history. Related Data Home Medications Medication Instructions Recorded Confirmed atorvastatin 40 mg tablet 40 mg PO QPM 11/27/23 08/10/24 coenzyme Q10 100 mg capsule 100 mg PO BEDTIME 11/27/23 08/10/24 (CoQ-10) vit B,C-folic ac 800 mcg-zinc 12.5 1 tab PO DAILY 11/27/23 08/10/24 mg-selen-D3 2,000 unit-vit E tablet (RenaPlex-D) doxazosin 2 mg tablet 2 mg PO BEDTIME 01/27/24 08/10/24 polyethylene glycol 3350 17 17 g PO PRN PRN Constipation 01/27/24 08/10/24 gram/dose oral powder (Miralax) apixaban 5 mg tablet (Eliquis) 2.5 mg PO BID 08/01/24 08/10/24 mirtazapine 15 mg tablet 15 mg PO BEDTIME PRN insomnia 08/01/24 08/10/24 Previous Rx's Medication Instructions Recorded blood sugar diagnostic (Contour #300 ea 10/08/22 Next Test Strips) blood-glucose meter (OneTouch #1 ea 10/13/22 Ultra2 Meter) lancets 33 gauge (OneTouch Delica #100 ea 10/13/22 Plus Lancet) pen needle, diabetic 31 gauge x #100 ea 10/27/23 5/16 (BD Ultra-Fine Short Pen Needle) amiodarone 100 mg tablet 100 mg PO DAILY #30 tabs 05/09/24 spironolactone 25 mg tablet 12.5 mg (1/2 x 25 mg) PO DAILY #30 05/30/24 tabs blood sugar diagnostic (OneTouch #200 ea 06/27/24 Ultra Test strips) hydrocodone 5 mg-acetaminophen 325 1 tab PO Q8H PRN pain 30 days #45 07/21/24 mg tablet tabs furosemide 40 mg tablet 80 mg (2 x 40 mg) PO BID #180 tabs 07/28/24 aspirin 81 mg tablet,delayed 81 mg PO DAILY 30 days #30 tabs 07/29/24 release levothyroxine 100 mcg capsule 100 mcg PO DAILY 30 days #30 caps 07/29/24 cefepime 2 gram solution for See Rx Instructions .Route .COMPLEX 08/08/24 injection daptomycin 500 mg intravenous See Rx Instructions .Route .COMPLEX 08/08/24 solution insulin lispro 100 unit/mL See Rx Instructions .Route 08/08/24 subcutaneous solution (Humalog .COMPLEX #10 mL U-100 Insulin) losartan 50 mg tablet 50 mg PO DAILY #90 tabs 08/08/24 pantoprazole 40 mg tablet,delayed 40 mg PO BID #180 tabs 08/08/24 release Allergies Allergy/AdvReac Type Severity Reaction Status Date / Time Penicillins Allergy Unknown Rash,Unknow Verified 07/25/24 12:36 n Review of Systems General: Reports: ROS unobtainable due to mental status [facility] ED PFSH: Medical History (Updated 08/11/24 @ 18:21 by Donta Amaro MD) Acute alteration in mental status Acute blood loss anemia SBP (spontaneous bacterial peritonitis) Skin tag Hospital discharge follow-up Closed pelvic fracture Community acquired pneumonia Confusion Headache Peripheral edema Interstitial lung disease ANSON (acute kidney injury) Hyponatremia Essential hypertension ESRD (end stage renal disease) on dialysis Sepsis Cystitis Decubitus ulcer, buttock Heel ulcer UTI (urinary tract infection) Leukocytosis Pubic ramus fracture Closed fracture of single pubic ramus of pelvis Pelvic fracture Acute respiratory failure with hypoxia Hypoxemia Atrial fibrillation PVC (premature ventricular contraction) Hypoglycemia associated with type 2 diabetes mellitus Pneumonia due to COVID-19 virus ESRD on peritoneal dialysis Atrial fibrillation Acute kidney injury superimposed on CKD Pneumonia Osteoarthritis (arthritis due to wear and tear of joints) Altered mental status Meningioma Anemia COVID-19 resolved Hypothyroidism GERD (gastroesophageal reflux disease) HTN (hypertension) CHF (congestive heart failure) CKD (chronic kidney disease) Diabetes Surgical History History of ankle surgery S/P tonsillectomy Status post tubal ligation S/P cataract extraction S/P cervical spinal fusion Peritoneal dialysis catheter in situ (06/26/21) Family History Mother Hypertension Grandmother Hypertension MATERNAL Other Cancer Diabetes Social History Smoking and tobacco/nicotine status: never used tobacco/nicotine Quit status (tobacco/nicotine): has quit using Year quit tobacco: 1977 [id number] Second hand smoke exposure: Yes Alcohol intake: never Substance/Drug Use: never Caregiver/support person: Yes Lives independently: Yes Household members: spouse and children Housing: House Marital status: Current occupational status: retired Pets and animals: Yes Do you think of yourself as: Straight/Heterosexual Current gender identity: Female Physical Exam Const: EXAM LIMITATIONS: altered mental status ORIENTATION/CONSCIOUSNESS: Yes awake HENMT: COMMON NORMALS: normocephalic and atraumatic HEAD & SCALP: normocephalic and atraumatic Resp: COMMON NORMALS: normal respiratory effort, No retractions, No use of accessory muscles and clear to auscultation bilaterally AUSCULTATION: clear to auscultation bilaterally Cardio: COMMON NORMALS: regular rate, regular rhythm and No murmurs present (Cardio) RATE: regular rate RHYTHM: regular rhythm GI: COMMON NORMALS: Soft to palpation and No hepatosplenomegaly present AUSCULTATION: Yes normoactive bowel sounds PALPATION: Yes Soft to palpation, No Tenderness to palpation present (GI), No Guarding due to palpation present (GI) and Yes No hepatosplenomegaly present Extremity: COMMON NORMALS: normal to inspection and capillary refill normal GENERAL: Yes edema (Lower extremity) Skin: COMMON NORMALS: no rashes or lesions noted GENERAL SKIN EXAM: no rashes or lesions noted Course Vital Signs: Vital signs: Vital Signs Temperature 98.1 F 08/12/24 04:28 Pulse Rate 70 08/12/24 04:28 Respiratory Rate 18 08/12/24 04:28 Blood Pressure 136/44 08/12/24 04:28 Pulse Oximetry 93 08/12/24 04:00 Oxygen Delivery Me thod Room Air 08/12/24 04:00 MDM - Altered Mental Status Medical Decision Making Care signed out to Dr. Garza at change of shift. See final notes for diagnosis and disposition. Care transferred over to myself at shift change, lab work was reviewed, white blood cell count 21.18 hemoglobin 9.5, ABG pH 7.5, pCO2 33, pO2 69, bicarb 26.7, serum potassium 3.2, creatinine 2.2, glucose 166, CRP 181.6, procalcitonin 1.32, lipase 22, lactic acid 1.8, urinalysis showed greater than 100 white blood cells 2+ leukocyte esterase. These results was discussed with Dr. Payne who agreed to place the patient in [place] for further evaluation and treatment. Medical Records I reviewed the patient's medical records. Lab Data I reviewed the patient's lab results. 08/12/24 00:59 08/12/24 00:59 Radiology Impressions Chest X-Ray 08/10/24 15:29 IMPRESSION: 1. Slightly increased diffuse bilateral interstitial pulmonary abnormality is edema and/or pneumonitis, possibly superimposed upon fibrosis. 2. Unchanged mild elevation of the right hemidiaphragm. Head CT 08/10/24 15:44 IMPRESSION: 1. No acute intracranial or calvarial abnormality on CT. Further evaluation with MR may be considered if there is persistent suspicion for occult ischemia or other significant intracranial changes. 2. Stable small right-sided meningioma and other chronic findings detailed above. Chest/Abdomen/Pelvis CT 08/11/24 11:01 IMPRESSION: CHF with pleural effusions IMPRESSION: No acute findings. Head/Neck CTA 08/11/24 16:07 IMPRESSION: No large vessel stenosis or occlusion. IMPRESSION: 1. Motion limited exam. Moderate to severe bilateral stenosis at the origins of the internal carotid arteries. No occlusion. 2. Findings suggestive of interstitial pulmonary edema with moderate bilateral pleural effusions. REFERENCES: NASCET CRITERIA. The degree of stenosis in the cervical segment of the internal carotid artery is based on NASCET criteria. Normal is no stenosis. Mild is less than 50% stenosis. Moderate is 50-69% stenosis. Severe is 70% to 99% stenosis. Total occlusion is no detectable patent lumen. Laboratory Results WBC 21.18 10^3/uL (3.29-11.43) H 08/10/24 18:46 RBC 3.02 10^6/uL (3.85-5.65) L 08/10/24 18:46 Hgb 9.50 g/dL (11.27-16.99) L 08/10/24 18:46 Hct 31.1 % (36-47) L 08/10/24 18:46 MCV 103.0 fl (85-98) H 08/10/24 18:46 MCH 31.5 pg (27-33) 08/10/24 18:46 MCHC 30.5 g/dL (30-55) 08/10/24 18:46 RDW 16.9 % (12.1-15.1) H 08/10/24 18:46 Plt Count 273 10^3/cmm (157-399) 08/10/24 18:46 MPV 9.1 fL (7.4-10.4) 08/10/24 18:46 Neut % (Auto) 87.5 % 08/10/24 18:46 Lymph % (Auto) 5.3 % 08/10/24 18:46 [place] % (Auto) 4.5 % 08/10/24 18:46 Eos % (Auto) 0.9 % 08/10/24 18:46 Baso % (Auto) 0.3 % 08/10/24 18:46 Neut # (Auto) 18.53 10^3/uL (1.8-7.7) H 08/10/24 18:46 Lymph # (Auto) 1.1 10^3/uL (0.8-4.8) 08/10/24 18:46 [place] # (Auto) 1.0 10^3/uL (0.2-0.9) H 08/10/24 18:46 Eos # (Auto) 0.2 10^3/uL (0.0-0.8) 08/10/24 18:46 Baso # (Auto) 0.1 10^3/uL (0.0-0.1) 08/10/24 18:46 Nucleated RBC % (auto) 0 % 08/10/24 18:46 Nucleated RBCs # 0.0 /100WBC 08/10/24 18:46 Specimen Type Arterial 08/10/24 20:00 Sample Site Radial, right 08/10/24 20:00 O2 Sat Pulse Oximetry 95.0 % 08/10/24 20:00 ABG pH 7.51 (7.35-7.45) H 08/10/24 20:00 ABG pCO2 33.8 mmHg (35-45) L 08/10/24 20:00 ABG pO2 69.2 mmHg (80.0-100.0) L 08/10/24 20:00 ABG PO2/FiO2 Ratio 329 08/10/24 20:00 ABG HCO3 26.7 mmol/L (22-26) H 08/10/24 20:00 ABG O2 Saturation 95.8 08/10/24 20:00 ABG Base Excess 3.6 mmol/L (-2.0-2.0) H 08/10/24 20:00 Jorge Test Pos 08/10/24 20:00 A-a O2 Gradient 5.0 mmHg (5-10) 08/10/24 20:00 Hematocrit 28.5 % (37-47) L 08/10/24 20:00 Hgb O2 Saturation 92.9 % (95-100) L 08/10/24 20:00 Carboxyhemoglobin 1.7 %THgb (0.4-20.1) 08/10/24 20:00 Methemoglobin 1.3 % (0.4-1.5) 08/10/24 20:00 Total Hemoglobin 9.3 g/dL (12-16) L 08/10/24 20:00 Sodium 137.0 mmol/L (131-143) 08/10/24 20:00 Potassium 3.0 mmol/L (3.5-5.0) L 08/10/24 20:00 Glucose 162.0 mg/dL (70-115) H 08/10/24 20:00 Ionized Calcium 1.1 mmol/L (1.1-1.4) 08/10/24 20:00 O2 Delivery Device Room air 08/10/24 20:00 FiO2 21.0 % 08/10/24 20:00 Specimen Drawn By [email or web address] 08/10/24 20:00 Automobile Sales Consultant ID [email or web address] 08/10/24 20:00 Sodium 137 mmol/L (136-145) 08/10/24 18:46 Potassium 3.2 mmol/L (3.5-5.1) L 08/10/24 18:46 Chloride 96 mmol/L (98-107) L 08/10/24 18:46 Carbon Dioxide 26 mmol/L (22-29) 08/10/24 18:46 Anion Gap 18.2 (5-19) 08/10/24 18:46 BUN 13 mg/dL (8-23) 08/10/24 18:46 Creatinine 2.2 mg/dL (0.5-0.9) H 08/10/24 18:46 GFR Calculation Not Reportable 08/10/24 18:46 Glucose 166 mg/dL (65-115) H 08/10/24 18:46 Calculated Osmolality 288 mOsm/kg (285-295) 08/10/24 18:46 Lactic Acid 1.8 mmol/L (0.5-2.2) 08/10/24 18:46 Calcium 8.6 mg/dL (8.5-10.5) 08/10/24 18:46 Total Bilirubin 0.5 mg/dL (0.15-1.2) 08/10/24 18:46 AST 12 U/L (0-32) 08/10/24 18:46 ALT 15 U/L (0-33) 08/10/24 18:46 Alkaline Phosphatase 92 U/L (35-105) 08/10/24 18:46 C-Reactive Protein 181.6 mg/L (0.0-4.9) H 08/10/24 18:46 Total Protein 6.1 g/dL (6.6-8.7) L 08/10/24 18:46 Albumin 2.9 g/dL (3.5-5.2) L 08/10/24 18:46 Globulin 3.2 g/dL (1.3-4.6) 08/10/24 18:46 Lipase 22 U/L (13-60) 08/10/24 18:46 Procalcitonin 1.32 ng/mL (0-0.5) H 08/10/24 18:46 TSH 30.27 uIU/mL (0.27-4.20) H 08/10/24 18:46 Free T4 1.21 ng/dL (0.82-1.77) 08/10/24 18:46 Urine Color Yellow (Yellow) 08/10/24 18:14 Urine Appearance Cloudy (CLEAR) A 08/10/24 18:14 Urine pH 6.5 (5-7) 08/10/24 18:14 Ur Specific [place] 1.012 (1.005-1.030) 08/10/24 18:14 Urine Protein 2+ (Negative) A 08/10/24 18:14 Urine Glucose (UA) Negative (Normal) 08/10/24 18:14 Urine Ketones Trace (Negative) 08/10/24 18:14 Urine Blood 1+ (Negative) A 08/10/24 18:14 Urine Nitrate Negative (Negative) 08/10/24 18:14 Urine Bilirubin Negative (Negative) 08/10/24 18:14 Urine Urobilinogen 0.2 mg/dL (Negative) 08/10/24 18:14 Ur Leukocyte Esterase 2+ (Negative) A 08/10/24 18:14 Urine RBC 3-5 /hpf (0-2) 08/10/24 18:14 Urine WBC >100 /hpf (0-5) H 08/10/24 18:14 Ur Squamous Epith Cells 0-5 /hpf (0-5) 08/10/24 18:14 Amorphous Sediment Not Reportable 08/10/24 18:14 Urine Bacteria None seen /hpf (NONE) 08/10/24 18:14 Hyaline Casts 2.05 /lpf 08/10/24 18:14 Urine Yeast Trace /hpf 08/10/24 18:14 Serum Ketones Positive (Negative) H 08/10/24 18:46 Discharge Plan Discharge Patient Disposition: Placed in Observation Admit Provider: Mann Payne Clinical Impression: Acute alteration in mental status, Acute lower urinary tract infection, ESRD on dialysis Coding Level of Care Code ED Senior Mobile Web Developer for Maria G Fwd Documented by User: Zac Garza DO 08/11/24 00:01 HPI - Altered Mental Status General: Chief Complaint: Altered Mental Status Stated Complaint: AMS Time Seen by Provider: 08/10/24 15:26 Related Data Home Medications Medication Instructions Recorded Confirmed atorvastatin 40 mg tablet 40 mg PO QPM 11/27/23 08/10/24 coenzyme Q10 100 mg capsule 100 mg PO BEDTIME 11/27/23 08/10/24 (CoQ-10) vit B,C-folic ac 800 mcg-zinc 12.5 1 tab PO DAILY 11/27/23 08/10/24 mg-selen-D3 2,000 unit-vit E tablet (RenaPlex-D) doxazosin 2 mg tablet 2 mg PO BEDTIME 01/27/24 08/10/24 polyethylene glycol 3350 17 17 g PO PRN PRN Constipation 01/27/24 08/10/24 gram/dose oral powder (Miralax) apixaban 5 mg tablet (Eliquis) 2.5 mg PO BID 08/01/24 08/10/24 mirtazapine 15 mg tablet 15 mg PO BEDTIME PRN insomnia 08/01/24 08/10/24 Previous Rx's Medication Instructions Recorded blood sugar diagnostic (Contour #300 ea 10/08/22 Next Test Strips) blood-glucose meter (OneTouch #1 ea 10/13/22 Ultra2 Meter) lancets 33 gauge (OneTouch Delica #100 ea 10/13/22 Plus Lancet) pen needle, diabetic 31 gauge x #100 ea 10/27/23 5/16 (BD Ultra-Fine Short Pen Needle) amiodarone 100 mg tablet 100 mg PO DAILY #30 tabs 05/09/24 spironolactone 25 mg tablet 12.5 mg (1/2 x 25 mg) PO DAILY #30 05/30/24 tabs blood sugar diagnostic (OneTouch #200 ea 06/27/24 Ultra Test strips) hydrocodone 5 mg-acetaminophen 325 1 tab PO Q8H PRN pain 30 days #45 07/21/24 mg tablet tabs furosemide 40 mg tablet 80 mg (2 x 40 mg) PO BID #180 tabs 07/28/24 aspirin 81 mg tablet,delayed 81 mg PO DAILY 30 days #30 tabs 07/29/24 release levothyroxine 100 mcg capsule 100 mcg PO DAILY 30 days #30 caps 07/29/24 cefepime 2 gram solution for See Rx Instructions .Route .COMPLEX 08/08/24 injection daptomycin 500 mg intravenous See Rx Instructions .Route .COMPLEX 08/08/24 solution insulin lispro 100 unit/mL See Rx Instructions .Route 08/08/24 subcutaneous solution (Humalog .COMPLEX #10 mL U-100 Insulin) losartan 50 mg tablet 50 mg PO DAILY #90 tabs 08/08/24 pantoprazole 40 mg tablet,delayed 40 mg PO BID #180 tabs 08/08/24 release Allergies Allergy/AdvReac Type Severity Reaction Status Date / Time Penicillins Allergy Unknown Rash,Unknow Verified 07/25/24 12:36 n PFSH ED PFSH: Medical History (Updated 08/11/24 @ 18:21 by Donta Amaro MD) Acute alteration in mental status Acute blood loss anemia SBP (spontaneous bacterial peritonitis) Skin tag Hospital discharge follow-up Closed pelvic fracture Community acquired pneumonia Confusion Headache Peripheral edema Interstitial lung disease ANSON (acute kidney injury) Hyponatremia Essential hypertension ESRD (end stage renal disease) on dialysis Sepsis Cystitis Decubitus ulcer, buttock Heel ulcer UTI (urinary tract infection) Leukocytosis Pubic ramus fracture Closed fracture of single pubic ramus of pelvis Pelvic fracture Acute respiratory failure with hypoxia Hypoxemia Atrial fibrillation PVC (premature ventricular contraction) Hypoglycemia associated with type 2 diabetes mellitus Pneumonia due to COVID-19 virus ESRD on peritoneal dialysis Atrial fibrillation Acute kidney injury superimposed on CKD Pneumonia Osteoarthritis (arthritis due to wear and tear of joints) Altered mental status Meningioma Anemia COVID-19 resolved Hypothyroidism GERD (gastroesophageal reflux disease) HTN (hypertension) CHF (congestive heart failure) CKD (chronic kidney disease) Diabetes Surgical History History of ankle surgery S/P tonsillectomy Status post tubal ligation S/P cataract extraction S/P cervical spinal fusion Peritoneal dialysis catheter in situ (06/26/21) Family History Mother Hypertension Grandmother Hypertension MATERNAL Other Cancer Diabetes Social History Smoking and tobacco/nicotine status: never used tobacco/nicotine Quit status (tobacco/nicotine): has quit using Year quit tobacco: 1977 [id number] Second hand smoke exposure: Yes Alcohol intake: never Substance/Drug Use: never Caregiver/support person: Yes Lives independently: Yes Household members: spouse and children Housing: House Marital status: Current occupational status: retired Pets and animals: Yes Do you think of yourself as: Straight/Heterosexual Current gender identity: Female Course Vital Signs: Vital signs: Vital Signs Temperature 98.1 F 08/12/24 04:28 Pulse Rate 70 08/12/24 04:28 Respiratory Rate 18 08/12/24 04:28 Blood Pressure 136/44 08/12/24 04:28 Pulse Oximetry 93 08/12/24 04:00 Oxygen Delivery Me thod Room Air 08/12/24 04:00 MDM - Altered Mental Status Medical Decision Making Care transferred over to myself at shift change, lab work was reviewed, white blood cell count 21.18 hemoglobin 9.5, ABG pH 7.5, pCO2 33, pO2 69, bicarb 26.7, serum potassium 3.2, creatinine 2.2, glucose 166, CRP 181.6, procalcitonin 1.32, lipase 22, lactic acid 1.8, urinalysis showed greater than 100 white blood cells 2+ leukocyte esterase. These results was discussed with Dr. Payne who agreed to place the patient in [place] for further evaluation and treatment. Lab Data 08/12/24 00:59 08/12/24 00:59 Radiology Impressions Chest X-Ray 08/10/24 15:29 IMPRESSION: 1. Slightly increased diffuse bilateral interstitial pulmonary abnormality is edema and/or pneumonitis, possibly superimposed upon fibrosis. 2. Unchanged mild elevation of the right hemidiaphragm. Head CT 08/10/24 15:44 IMPRESSION: 1. No acute intracranial or calvarial abnormality on CT. Further evaluation with MR may be considered if there is persistent suspicion for occult ischemia or other significant intracranial changes. 2. Stable small right-sided meningioma and other chronic findings detailed above. Chest/Abdomen/Pelvis CT 08/11/24 11:01 IMPRESSION: CHF with pleural effusions IMPRESSION: No acute findings. Head/Neck CTA 08/11/24 16:07 IMPRESSION: No large vessel stenosis or occlusion. IMPRESSION: 1. Motion limited exam. Moderate to severe bilateral stenosis at the origins of the internal carotid arteries. No occlusion. 2. Findings suggestive of interstitial pulmonary edema with moderate bilateral pleural effusions. REFERENCES: NASCET CRITERIA. The degree of stenosis in the cervical segment of the internal carotid artery is based on NASCET criteria. Normal is no stenosis. Mild is less than 50% stenosis. Moderate is 50-69% stenosis. Severe is 70% to 99% stenosis. Total occlusion is no detectable patent lumen. Laboratory Results WBC 21.18 10^3/uL (3.29-11.43) H 08/10/24 18:46 RBC 3.02 10^6/uL (3.85-5.65) L 08/10/24 18:46 Hgb 9.50 g/dL (11.27-16.99) L 08/10/24 18:46 Hct 31.1 % (36-47) L 08/10/24 18:46 MCV 103.0 fl (85-98) H 08/10/24 18:46 MCH 31.5 pg (27-33) 08/10/24 18:46 MCHC 30.5 g/dL (30-55) 08/10/24 18:46 RDW 16.9 % (12.1-15.1) H 08/10/24 18:46 Plt Count 273 10^3/cmm (157-399) 08/10/24 18:46 MPV 9.1 fL (7.4-10.4) 08/10/24 18:46 Neut % (Auto) 87.5 % 08/10/24 18:46 Lymph % (Auto) 5.3 % 08/10/24 18:46 [place] % (Auto) 4.5 % 08/10/24 18:46 Eos % (Auto) 0.9 % 08/10/24 18:46 Baso % (Auto) 0.3 % 08/10/24 18:46 Neut # (Auto) 18.53 10^3/uL (1.8-7.7) H 08/10/24 18:46 Lymph # (Auto) 1.1 10^3/uL (0.8-4.8) 08/10/24 18:46 [place] # (Auto) 1.0 10^3/uL (0.2-0.9) H 08/10/24 18:46 Eos # (Auto) 0.2 10^3/uL (0.0-0.8) 08/10/24 18:46 Baso # (Auto) 0.1 10^3/uL (0.0-0.1) 08/10/24 18:46 Nucleated RBC % (auto) 0 % 08/10/24 18:46 Nucleated RBCs # 0.0 /100WBC 08/10/24 18:46 Specimen Type Arterial 08/10/24 20:00 Sample Site Radial, right 08/10/24 20:00 O2 Sat Pulse Oximetry 95.0 % 08/10/24 20:00 ABG pH 7.51 (7.35-7.45) H 08/10/24 20:00 ABG pCO2 33.8 mmHg (35-45) L 08/10/24 20:00 ABG pO2 69.2 mmHg (80.0-100.0) L 08/10/24 20:00 ABG PO2/FiO2 Ratio 329 08/10/24 20:00 ABG HCO3 26.7 mmol/L (22-26) H 08/10/24 20:00 ABG O2 Saturation 95.8 08/10/24 20:00 ABG Base Excess 3.6 mmol/L (-2.0-2.0) H 08/10/24 20:00 Jorge Test Pos 08/10/24 20:00 A-a O2 Gradient 5.0 mmHg (5-10) 08/10/24 20:00 Hematocrit 28.5 % (37-47) L 08/10/24 20:00 Hgb O2 Saturation 92.9 % (95-100) L 08/10/24 20:00 Carboxyhemoglobin 1.7 %THgb (0.4-20.1) 08/10/24 20:00 Methemoglobin 1.3 % (0.4-1.5) 08/10/24 20:00 Total Hemoglobin 9.3 g/dL (12-16) L 08/10/24 20:00 Sodium 137.0 mmol/L (131-143) 08/10/24 20:00 Potassium 3.0 mmol/L (3.5-5.0) L 08/10/24 20:00 Glucose 162.0 mg/dL (70-115) H 08/10/24 20:00 Ionized Calcium 1.1 mmol/L (1.1-1.4) 08/10/24 20:00 O2 Delivery Device Room air 08/10/24 20:00 FiO2 21.0 % 08/10/24 20:00 Specimen Drawn By Levy 08/10/24 20:00 Automobile Sales Consultant ID Levy 08/10/24 20:00 Sodium 137 mmol/L (136-145) 08/10/24 18:46 Potassium 3.2 mmol/L (3.5-5.1) L 08/10/24 18:46 Chloride 96 mmol/L (98-107) L 08/10/24 18:46 Carbon Dioxide 26 mmol/L (22-29) 08/10/24 18:46 Anion Gap 18.2 (5-19) 08/10/24 18:46 BUN 13 mg/dL (8-23) 08/10/24 18:46 Creatinine 2.2 mg/dL (0.5-0.9) H 08/10/24 18:46 GFR Calculation Not Reportable 08/10/24 18:46 Glucose 166 mg/dL (65-115) H 08/10/24 18:46 Calculated Osmolality 288 mOsm/kg (285-295) 08/10/24 18:46 Lactic Acid 1.8 mmol/L (0.5-2.2) 08/10/24 18:46 Calcium 8.6 mg/dL (8.5-10.5) 08/10/24 18:46 Total Bilirubin 0.5 mg/dL (0.15-1.2) 08/10/24 18:46 AST 12 U/L (0-32) 08/10/24 18:46 ALT 15 U/L (0-33) 08/10/24 18:46 Alkaline Phosphatase 92 U/L (35-105) 08/10/24 18:46 C-Reactive Protein 181.6 mg/L (0.0-4.9) H 08/10/24 18:46 Total Protein 6.1 g/dL (6.6-8.7) L 08/10/24 18:46 Albumin 2.9 g/dL (3.5-5.2) L 08/10/24 18:46 Globulin 3.2 g/dL (1.3-4.6) 08/10/24 18:46 Lipase 22 U/L (13-60) 08/10/24 18:46 Procalcitonin 1.32 ng/mL (0-0.5) H 08/10/24 18:46 TSH 30.27 uIU/mL (0.27-4.20) H 08/10/24 18:46 Free T4 1.21 ng/dL (0.82-1.77) 08/10/24 18:46 Urine Color Yellow (Yellow) 08/10/24 18:14 Urine Appearance Cloudy (CLEAR) A 08/10/24 18:14 Urine pH 6.5 (5-7) 08/10/24 18:14 Ur Specific [place] 1.012 (1.005-1.030) 08/10/24 18:14 Urine Protein 2+ (Negative) A 08/10/24 18:14 Urine Glucose (UA) Negative (Normal) 08/10/24 18:14 Urine Ketones Trace (Negative) 08/10/24 18:14 Urine Blood 1+ (Negative) A 08/10/24 18:14 Urine Nitrate Negative (Negative) 08/10/24 18:14 Urine Bilirubin Negative (Negative) 08/10/24 18:14 Urine Urobilinogen 0.2 mg/dL (Negative) 08/10/24 18:14 Ur Leukocyte Esterase 2+ (Negative) A 08/10/24 18:14 Urine RBC 3-5 /hpf (0-2) 08/10/24 18:14 Urine WBC >100 /hpf (0-5) H 08/10/24 18:14 Ur Squamous Epith Cells 0-5 /hpf (0-5) 08/10/24 18:14 Amorphous Sediment Not Reportable 08/10/24 18:14 Urine Bacteria None seen /hpf (NONE) 08/10/24 18:14 Hyaline Casts 2.05 /lpf 08/10/24 18:14 Urine Yeast Trace /hpf 08/10/24 18:14 Serum Ketones Positive (Negative) H 08/10/24 18:46 All radiology interpretation(s) finalized by discharge Discharge Plan Discharge Patient Disposition: Placed in Observation Admit Provider: Payne,Mann Salgado Clinical Impression: Acute alteration in mental status, Acute lower urinary tract infection, ESRD on dialysis Coding Level of Care Code ED Senior Mobile Web Developer for Maria G [place]om
--- NOTE | 2024-08-10 15:44 | CTR_ITS ---
PROCEDURE INFORMATION: Exam: CT Head Without Contrast Exam date and time: 08/10/2024 3:52 PM Age: 84 years old Clinical indication: Altered mental status/memory loss; Additional info: AMS TECHNIQUE: Imaging protocol: Computed tomography of the head without contrast. Radiation optimization: All CT scans at this facility use at least one of these dose optimization techniques: automated exposure control; mA and/or kV adjustment per patient size (includes targeted exams where dose is matched to clinical indication); or iterative reconstruction. COMPARISON: CT head wo con* [id number] 06/07/2021 9:10 AM RADIATION DOSE METRICS: Total DLP (mGy-cm): 1081.98 FINDINGS: Brain: The 1.2 cm calcified lesion consistent with a meningioma again noted in the right anterior and middle cranial fossa junction as well as additional small right parietal meningioma. Mild cerebral parenchymal atrophy and moderate chronic microvascular cerebral parenchymal change again noted. No vasogenic edema or mass effect. No cytotoxic edema. No intracranial hemorrhage or extra-axial fluid collection. No midline shift. Cerebral ventricles: Prominent ventricular caliber is stable from 06/07/2021, likely due to ex vacuo dilatation, although stable normal pressure hydrocephalus may be considered. Paranasal sinuses: Visualized sinuses are unremarkable. No fluid levels. Mastoid air cells: Visualized mastoid air cells are well aerated. Bones: Unremarkable. No acute fracture. Soft tissues: Unremarkable. CT/CT head wo con* [id number] IMPRESSION: 1. No acute intracranial or calvarial abnormality on CT. Further evaluation with MR may be considered if there is persistent suspicion for occult ischemia or other significant intracranial changes. 2. Stable small right-sided meningioma and other chronic findings detailed above.
[2024-08-10 19:03] LABS: Basophils # 0.1 10^3/uL (0.0-0.1); Basophils % 0.3 %; Eosinophils # 0.2 10^3/uL (0.0-0.8); Eosinophils % 0.9 %; Hematocrit 31.1 % (36-47); Lymphocytes # 1.1 10^3/uL (0.8-4.8); Lymphocytes % 5.3 %; Mean Corpuscular HGB Conc 30.5 g/dL (30-55); Mean Corpuscular Hemoglobin 31.5 pg (27-33); Mean Platelet Volume 9.1 fL (7.4-10.4); Monocytes % 4.5 %; Neutrophils # 18.53 10^3/uL (1.8-7.7); Neutrophils % 87.5 %; Nucleated Red Blood Cells % 0 %; Platelet Count 273 10^3/cmm (157-399); Red Blood Count 3.02 10^6/uL (3.85-5.65); Red Cell Distribution Width 16.9 % (12.1-15.1); White Blood Count 21.18 10^3/uL (3.29-11.43)
[2024-08-10 19:04] LABS: Bilirubin Urine Negative (Negative); Blood Urine 1+ (Negative); Glucose Urine UA Negative (Normal); Ketones Urine Trace (Negative); Leukocyte Esterase Urine 2+ (Negative); Nitrate Urine Negative (Negative); Protein Urine 2+ (Negative); Specific Gravity, Urine 1.012 (1.005-1.030); Urine Appearance Cloudy (CLEAR); Urine Color Yellow (Yellow); Urobilinogen Urine 0.2 mg/dL (Negative); pH Urine 6.5 (5-7)
[2024-08-10 19:08] LABS: Add Urine Microscopic? YES; Bacteria Urine None Seen /hpf; Hyaline Casts Urine 2.05 /lpf; Squamous Epithelial Cell Urine 0-5 /hpf (0-5); WBC Urine >100 /hpf (0-5)
[2024-08-10 19:20] LABS: Ketone (Acetest) Serum Positive (Negative)
[2024-08-10 19:23] LABS: Add Urine Culture? Yes; UA Slide Review UA Slide Review Perf
[2024-08-10 19:24] LABS: Alanine Aminotransferase 15 U/L (0-33); Albumin Level 2.9 g/dL (3.5-5.2); Alkaline Phosphatase 92 U/L (35-105); Anion Gap 18.2 (5-19); Aspartate Amino Transferase 12 U/L (0-32); Blood Urea Nitrogen 13 mg/dL (8-23); C Reactive Protein 181.6 mg/L (0.0-4.9); Calcium 8.6 mg/dL (8.5-10.5); Carbon Dioxide 26 mmol/L (22-29); Chloride 96 mmol/L (98-107); Creatinine Clr Calc Pharmacy 18.8473; Globulin 3.2 g/dL (1.3-4.6); Glucose 166 mg/dL (65-115); Lipase 22 U/L (13-60); Osmolality Calculated 288 mOsm/kg (285-295); Potassium 3.2 mmol/L (3.5-5.1); Sodium 137 mmol/L (136-145); Total Bilirubin 0.5 mg/dL (0.15-1.2); Total Protein 6.1 g/dL (6.6-8.7)
[2024-08-10 20:09] LABS: Lactic Sepsis W/Reflex 1.8 mmol/L (0.5-2.2)
[2024-08-10 20:14] LABS: ABG PCO2 33.8 mmHg (35-45); Base Excess ABG 3.6 mmol/L (-2.0-2.0); HCO3 ABG 26.7 mmol/L (22-26); Oxygen Saturation ABG 95.8; PO2 ABG 69.2 mmHg (80.0-100.0); PO2 FiO2 Ratio Arterial Blood 329
[2024-08-10 20:15] LABS: Arterial Blood Gas Hematocrit 28.5 % (37-47); Oxygen Device ROOM AIR
[2024-08-10 20:16] LABS: Carboxyhemoglobin 1.7 %THgb (0.4-20.1); Total Hemoglobin 9.3 g/dL (12-16)
[2024-08-10 20:16] LABS: Procalcitonin 1.32 ng/mL (0-0.5)
--- NOTE | 2024-08-10 20:33 | PM.HP ---
Providers/Chief Complaint Primary Care Provider: Mann Garduno MD Chief Complaint: AMS History of Present Illness Luiza Cooper is a 84 year old female with a past medical history significant for end-stage renal disease on dialysis, atrial fibrillation, congestive heart failure, recurrent UTIs, and multiple other comorbidities who presents from the nursing facility with altered mental status x 1 to 2 days. Patient is awake but found to be a very poor historian on exam. She denies any fevers, chills, nausea or emesis. Denies pain. Oriented to self but not situation. Of note, patient was recently admitted with prolonged hospitalization for treatment for right heel osteomyelitis and PD associated peritonitis. PD catheter removed and HD line placed. Infectious disease was consulted during this admission and patient was ultimately discharged on daptomycin and cefepime on 08/08 to [facility]. She reportedly missed some of her doses of antibiotics due to her pulling her line at facility. In the ED, patient found to have persistent leukocytosis and abnormal urinalysis. Review of Systems Narrative: A complete review of systems was obtained and is negative except as stated in HPI. Medications/Allergies Home Medications Medication Instructions Recorded Confirmed Last Taken Type blood sugar diagnostic (Contour #300 ea 10/08/22 08/10/24 Unknown Rx Next Test Strips) blood-glucose meter (OneTouch #1 ea 10/13/22 08/10/24 Unknown Rx Ultra2 Meter) lancets 33 gauge (OneTouch Delica #100 ea 10/13/22 08/10/24 Unknown Rx Plus Lancet) pen needle, diabetic 31 gauge x #100 ea 10/27/23 08/10/24 Unknown Rx 5/16 (BD Ultra-Fine Short Pen Needle) atorvastatin 40 mg tablet 40 mg PO QPM 11/27/23 08/10/24 07/31/24 History coenzyme Q10 100 mg capsule 100 mg PO BEDTIME 11/27/23 08/10/24 07/31/24 History (CoQ-10) vit B,C-folic ac 800 mcg-zinc 12.5 1 tab PO DAILY 11/27/23 08/10/24 07/31/24 History mg-selen-D3 2,000 unit-vit E tablet (RenaPlex-D) doxazosin 2 mg tablet 2 mg PO BEDTIME 01/27/24 08/10/24 07/31/24 History polyethylene glycol 3350 17 17 g PO PRN PRN Constipation 05/08/24 11/20/24 07/26/24 History gram/dose oral powder (Miralax) amiodarone 100 mg tablet 100 mg PO DAILY #30 tabs 05/09/24 08/10/24 07/31/24 Rx spironolactone 25 mg tablet 12.5 mg (1/2 x 25 mg) PO DAILY #30 05/30/24 08/10/24 07/31/24 Rx tabs blood sugar diagnostic (OneTouch #200 ea 06/27/24 08/10/24 Unknown Rx Ultra Test strips) hydrocodone 5 mg-acetaminophen 325 1 tab PO Q8H PRN pain 30 days #45 07/21/24 08/10/24 Unknown Rx mg tablet tabs furosemide 40 mg tablet 80 mg (2 x 40 mg) PO BID #180 tabs 07/28/24 08/10/24 07/31/24 Rx aspirin 81 mg tablet,delayed 81 mg PO DAILY 30 days #30 tabs 07/29/24 08/10/24 07/31/24 Rx release levothyroxine 100 mcg capsule 100 mcg PO DAILY 30 days #30 caps 07/29/24 08/10/24 07/31/24 Rx apixaban 5 mg tablet (Eliquis) 2.5 mg PO BID 08/01/24 08/10/24 07/31/24 History mirtazapine 15 mg tablet 15 mg PO BEDTIME PRN insomnia 08/01/24 08/10/24 07/31/24 History cefepime 2 gram solution for See Rx Instructions .Route .COMPLEX 08/08/24 08/10/24 Unknown Rx injection daptomycin 500 mg intravenous See Rx Instructions .Route .COMPLEX 08/08/24 08/10/24 Unknown Rx solution insulin lispro 100 unit/mL See Rx Instructions .Route 08/08/24 08/10/24 Unknown Rx subcutaneous solution (Humalog .COMPLEX #10 mL U-100 Insulin) losartan 50 mg tablet 50 mg PO DAILY #90 tabs 08/08/24 08/10/24 Unknown Rx pantoprazole 40 mg tablet,delayed 40 mg PO BID #180 tabs 08/08/24 08/10/24 Unknown Rx release Allergies Allergy/AdvReac Type Severity Reaction Status Date / Time Penicillins Allergy Unknown Rash,Unknow Verified 07/25/24 12:36 n PFSH Acute PFSH: Medical History (Updated 08/10/24 @ 23:20 by Mann Payne MD) Acute alteration in mental status Acute blood loss anemia SBP (spontaneous bacterial peritonitis) Skin tag Hospital discharge follow-up Closed pelvic fracture Community acquired pneumonia Confusion Headache Peripheral edema Interstitial lung disease ANSON (acute kidney injury) Hyponatremia Essential hypertension ESRD (end stage renal disease) on dialysis Sepsis Cystitis Decubitus ulcer, buttock Heel ulcer UTI (urinary tract infection) Leukocytosis Pubic ramus fracture Closed fracture of single pubic ramus of pelvis Pelvic fracture Acute respiratory failure with hypoxia Hypoxemia Atrial fibrillation PVC (premature ventricular contraction) Hypoglycemia associated with type 2 diabetes mellitus Pneumonia due to COVID-19 virus ESRD on peritoneal dialysis Atrial fibrillation Acute kidney injury superimposed on CKD Pneumonia Osteoarthritis (arthritis due to wear and tear of joints) Altered mental status Meningioma Anemia COVID-19 resolved Hypothyroidism GERD (gastroesophageal reflux disease) HTN (hypertension) CHF (congestive heart failure) CKD (chronic kidney disease) Diabetes Surgical History History of ankle surgery S/P tonsillectomy Status post tubal ligation S/P cataract extraction S/P cervical spinal fusion Peritoneal dialysis catheter in situ (06/26/21) Family History Mother Hypertension Grandmother Hypertension MATERNAL Other Cancer Diabetes Social History Smoking and tobacco/nicotine status: never used tobacco/nicotine Quit status (tobacco/nicotine): has quit using Year quit tobacco: 1978 [id number] Second hand smoke exposure: Yes Alcohol intake: never Substance/Drug Use: never Caregiver/support person: Yes Lives independently: Yes Household members: spouse and children Housing: House Marital status: Current occupational status: retired Pets and animals: Yes Do you think of yourself as: Straight/Heterosexual Current gender identity: Female Vitals/I&O/Wt Last Vital Signs Temp 98.6 F 08/10/24 15:24 Pulse 74 08/10/24 20:04 Resp 13 08/10/24 20:04 BP 153/67 08/10/24 20:04 Pulse Ox 97 08/10/24 19:30 Weight last 48 hrs Weight 81.647 kg Physical Exam Narrative: General: Patient is awake. Ill appearing. Head: Normocephalic. Atraumatic. EOM intact. Neck: No JVD. Cardiovascular: RRR. No gallops. No murmurs. HD line present. Lungs: Clear to auscultation, no use of accessory muscles, no crackles or wheezes. Skin: No jaundice. No rashes. Abdomen: Normal bowel sounds, abdomen soft and nontender. Multiple bruises present. Extremities: No cyanosis or clubbing. Musculoskeletal: No swollen or erythematous joints. Right heal is covered with bandage and ESTHER wrap. Neurological: Moves all 4 extremities. No myoclonus. Data 08/10/24 18:46 08/10/24 18:46 Micro: Microbiology 08/10/24 18:35 Blood Culture - Preliminary Blood SPECIMEN COLLECTED 08/10/24 18:46 Blood Culture - Preliminary Blood SPECIMEN COLLECTED A&P Assessment and plan (1) AMS (altered mental status): Altered mental status possibly related to worsening infection after missing abx versus UTI Follow urine culture Broaden abx coverage from cefepime/daptomycin to meopenem/linezolid out of abundance of caution Consider ID reconsultation Serial neuro exams Supportive care (2) Acute lower urinary tract infection: UA concerning for UTI despite being on cefepime/daptomycin Follow Ux Abx as above (3) Osteomyelitis: Osteomyelitis of right heal Status post I&D by podiatry during last hospitalization Continue wound care Abx as above (4) Acute bacterial peritonitis: Prior cultures reviewed Benign abdominal exam Abx as above (5) ESRD (end stage renal disease) on dialysis: Previously PD s/p PD cath removal d/t peritonitis Will need nephrology consult in AM for dialysis management Strict I&Os Renally dose medications (6) GI bleed: Recent GI bleed during last hospitalization noted Monitor for rebleed Continue PPI BID (7) Diabetes: SSI Qualifiers: Diabetes mellitus type: type 2 Diabetes mellitus manager long term care insulin use: with manager long term care use Diabetes mellitus complication status: with kidney complications Diabetes mellitus complication detail: with chronic kidney disease Chronic kidney disease stage: on chronic dialysis Qualified Code(s): E11.22 - Type 2 diabetes mellitus with diabetic chronic kidney disease; N18.6 - End stage renal disease; Z79.4 - watermaster (current) use of insulin; Z99.2 - Dependence on renal dialysis Plan DVT prophylaxis: Apixaban Attestations Medical Necessity Statement*: Patient presents with altered mental status in the setting of multiple infections, found to have superimposed UTI with expected hospitalization not to cross 2 midnights for continued broaden IV antibiotics, serial neurologic exams and supportive care. Coding Level of Care Code Acute Code for [facility] Fwd Diagnoses AMS (altered mental status) R41.82 Acute lower urinary tract infection N39.0 Osteomyelitis M86.9 Acute bacterial peritonitis K65.9 ESRD (end stage renal disease) on dialysis N18.6; Z99.2 GI bleed K92.2 Type 2 diabetes mellitus with chronic kidney disease on chronic dialysis, with long-term current use of insulin E11.22; N18.6; Z79.4; Z99.2 Diabetes mellitus type: type 2 Diabetes mellitus manager long term care insulin use: with snf use Diabetes mellitus complication status: with kidney complications Diabetes mellitus complication detail: with chronic kidney disease Chronic kidney disease stage: on chronic dialysis
[2024-08-10] MEDS: heparin 5,000 unit/mL INJ 1 mL 5000 UNIT SUBCUT (22:01)
[2024-08-10 23:40] LABS: Free T4 Free Thyroxine 1.21 ng/dL (0.82-1.77); Thyroid Stimulating Hormone 30.27 uIU/mL (0.27-4.20)
[2024-08-10] MEDS: meropenem 500 mg SDV IVP (23:43)
[2024-08-10] MEDS: linezolid premix 600 MG/300 ML PREMIX 300 MG IV (23:43)
[2024-08-11] VITALS (9 sets, daily range): BP systolic 125–182; BP diastolic 46–69; PULSE 65–77; RESP 16–18; TEMP 36.5–37.1; O2SAT 90–94
[2024-08-11 06:13] LABS: Basophils # 0.1 10^3/uL (0.0-0.1); Basophils % 0.4 %; Eosinophils # 0.4 10^3/uL (0.0-0.8); Eosinophils % 2.1 %; Hematocrit 26.5 % (36-47); Lymphocytes # 1.1 10^3/uL (0.8-4.8); Lymphocytes % 5.8 %; Mean Corpuscular HGB Conc 30.6 g/dL (30-55); Mean Corpuscular Hemoglobin 31.3 pg (27-33); Mean Corpuscular Volume 102.3 fl (85-98); Mean Platelet Volume 9.3 fL (7.4-10.4); Monocytes # 0.8 10^3/uL (0.2-0.9); Monocytes % 4.3 %; Neutrophils % 85.9 %; Nucleated Red Blood Cells % 0 %; Platelet Count 257 10^3/cmm (157-399); Red Blood Count 2.59 10^6/uL (3.85-5.65); Red Cell Distribution Width 16.8 % (12.1-15.1); White Blood Count 18.63 10^3/uL (3.29-11.43)
[2024-08-11 06:33] LABS: Alanine Aminotransferase 13 U/L (0-33); Albumin Level 2.3 g/dL (3.5-5.2); Alkaline Phosphatase 80 U/L (35-105); Anion Gap 15.1 (5-19); Aspartate Amino Transferase 10 U/L (0-32); Blood Urea Nitrogen 14 mg/dL (8-23); Carbon Dioxide 26 mmol/L (22-29); Chloride 98 mmol/L (98-107); Globulin 2.5 g/dL (1.3-4.6); Glucose 160 mg/dL (65-115); Magnesium 1.8 mg/dL (1.7-2.3); Osmolality Calculated 286 mOsm/kg (285-295); Phosphorus 2.5 mg/dL (2.5-4.5); Potassium 3.1 mmol/L (3.5-5.1); Sodium 136 mmol/L (136-145); Total Bilirubin 0.4 mg/dL (0.15-1.2); Total Protein 4.8 g/dL (6.6-8.7)
[2024-08-11 08:58] LABS: Glucose Point of Care 165 mg/dL (70-110)
[2024-08-11 09:43] LABS: Erythrocyte Sedimentation Rate 25 mm/hr (0-15)
--- NOTE | 2024-08-11 11:01 | CTR_ITS ---
PROCEDURE INFORMATION: Exam: CTA Chest With Contrast Exam date and time: 08/11/2024 4:34 PM Age: 84 years old Clinical indication: Other: AMS TECHNIQUE: Imaging protocol: Computed tomographic angiography of the chest with contrast. Exam focused on the arteries. 3D rendering (Not supervised by radiologist): MIP and/or 3D reconstructed images were created by the technologist. Radiation optimization: All CT scans at this facility use at least one of these dose optimization techniques: automated exposure control; mA and/or kV adjustment per patient size (includes targeted exams where dose is matched to clinical indication); or iterative reconstruction. Contrast material: OMNIPAQUE 350; Contrast volume: 75 ml; Contrast route: INTRAVENOUS (IV); COMPARISON: [place] [id number] 11/27/2023 4:12 PM RADIATION DOSE METRICS: Total DLP (mGy-cm): 810.7 FINDINGS: Tubes, catheters and devices: A right-sided tunneled central venous dialysis catheter is in good position. Pulmonary arteries: Normal. No pulmonary emboli. Aorta: Unremarkable. No aortic aneurysm. No aortic dissection. Lungs: Both lungs demonstrate hazy diffuse pulmonary infiltrates along with bibasilar atelectasis. Pleural spaces: Moderate bilateral pleural effusions are noted. Heart: Mild cardiomegaly is noted. Lymph nodes: Unremarkable. No enlarged lymph nodes. Bones/joints: Unremarkable. No acute fracture. Soft tissues: Unremarkable. PROCEDURE INFORMATION: Exam: CT Abdomen And Pelvis With Contrast Exam date and time: 08/11/2024 4:34 PM Age: 84 years old Clinical indication: Other: AMS TECHNIQUE: Imaging protocol: Computed tomography of the abdomen and pelvis with contrast. Radiation optimization: All CT scans at this facility use at least one of these dose optimization techniques: automated exposure control; mA and/or kV adjustment per patient size (includes targeted exams where dose is matched to clinical indication); or iterative reconstruction. Contrast material: OMNIPAQUE 350; Contrast volume: 75 ml; Contrast route: INTRAVENOUS (IV); COMPARISON: CT abdomen pelvis wo con [id number] 08/01/2024 9:20 AM RADIATION DOSE METRICS: Total DLP (mGy-cm): 810.7 FINDINGS: Lungs: Lung bases are clear. No pleural effusion. Liver: Normal. No mass. Gallbladder and biliary ducts: Normal. No calcified stones. No ductal dilation. Pancreas: Normal. No ductal dilation. Spleen: Normal. No splenomegaly. Adrenal glands: Normal. No mass. Kidneys and ureters: Normal. No hydronephrosis. Stomach and bowel: Unremarkable. No obstruction. No mucosal thickening. Appendix: No evidence of appendicitis. Intraperitoneal space: Unremarkable. No free air. No significant fluid collection. Vasculature: Unremarkable. No abdominal aortic aneurysm. Lymph nodes: Unremarkable. No enlarged lymph nodes. Urinary bladder: Unremarkable as visualized. Reproductive: Unremarkable as visualized. Bones/joints: Unremarkable. No acute fracture. Soft tissues: Unremarkable. CT/CT angio chest w abd pel w con IMPRESSION: CHF with pleural effusions IMPRESSION: No acute findings.
[2024-08-11] MEDS: linezolid premix 600 MG/300 ML PREMIX 300 MG IV ×2 (11:10→23:23)
[2024-08-11] MEDS: meropenem 500 mg SDV IVP ×2 (11:10→23:22)
[2024-08-11 11:11] LABS: ABG PH Result 7.51 (7.35-7.45); Blood Gas Allen Test Pos; Blood Gas Sample Site Radial, right; Blood Gas Sample Type Arterial; HGB O2 Sat 92.9 % (95-100); Ionized Calcium Level - ABG 1.1 mmol/L (1.1-1.4); Methemoglobin 1.3 % (0.4-1.5)
[2024-08-11 11:22] LABS: Glucose Point of Care 159 mg/dL (70-110)
--- NOTE | 2024-08-11 13:37 | P.CONIM_ITS ---
Providers/Reason For Consult 2 Attending Physician: Donta Amaro MD Primary Care Provider: Mann Garduno MD History of Present Illness History of Present Illness Luiza Cooper is a 84 year old female Medications/Allergies Home Medications Medication Instructions Recorded Confirmed Last Taken Type blood sugar diagnostic (Contour #300 ea 10/08/22 08/10/24 Unknown Rx Next Test Strips) blood-glucose meter (OneTouch #1 ea 10/13/22 08/10/24 Unknown Rx Ultra2 Meter) lancets 33 gauge (OneTouch Delica #100 ea 10/13/22 08/10/24 Unknown Rx Plus Lancet) pen needle, diabetic 31 gauge x #100 ea 10/27/23 08/10/24 Unknown Rx 5/16 (BD Ultra-Fine Short Pen Needle) atorvastatin 40 mg tablet 40 mg PO QPM 11/27/23 08/10/24 07/31/24 History coenzyme Q10 100 mg capsule 100 mg PO BEDTIME 11/27/23 08/10/24 07/31/24 History (CoQ-10) vit B,C-folic ac 800 mcg-zinc 12.5 1 tab PO DAILY 11/27/23 08/10/24 07/31/24 History mg-selen-D3 2,000 unit-vit E tablet (RenaPlex-D) doxazosin 2 mg tablet 2 mg PO BEDTIME 01/27/24 08/10/24 07/31/24 History polyethylene glycol 3350 17 17 g PO PRN PRN Constipation 01/27/24 08/10/24 04/15/24 History gram/dose oral powder (Miralax) amiodarone 100 mg tablet 100 mg PO DAILY #30 tabs 05/09/24 08/10/24 07/31/24 Rx spironolactone 25 mg tablet 12.5 mg (1/2 x 25 mg) PO DAILY #30 05/30/24 08/10/24 07/31/24 Rx tabs blood sugar diagnostic (OneTouch #200 ea 06/27/24 08/10/24 Unknown Rx Ultra Test strips) hydrocodone 5 mg-acetaminophen 325 1 tab PO Q8H PRN pain 30 days #45 07/21/24 08/10/24 Unknown Rx mg tablet tabs furosemide 40 mg tablet 80 mg (2 x 40 mg) PO BID #180 tabs 07/28/24 08/10/24 07/31/24 Rx aspirin 81 mg tablet,delayed 81 mg PO DAILY 30 days #30 tabs 07/29/24 08/10/24 07/31/24 Rx release levothyroxine 100 mcg capsule 100 mcg PO DAILY 30 days #30 caps 07/29/24 08/10/24 07/31/24 Rx apixaban 5 mg tablet (Eliquis) 2.5 mg PO BID 08/01/24 08/10/24 07/31/24 History mirtazapine 15 mg tablet 15 mg PO BEDTIME PRN insomnia 08/01/24 08/10/24 07/31/24 History cefepime 2 gram solution for See Rx Instructions .Route .COMPLEX 08/08/24 08/10/24 Unknown Rx injection daptomycin 500 mg intravenous See Rx Instructions .Route .COMPLEX 08/08/24 08/10/24 Unknown Rx solution insulin lispro 100 unit/mL See Rx Instructions .Route 08/08/24 08/10/24 Unknown Rx subcutaneous solution (Humalog .COMPLEX #10 mL U-100 Insulin) losartan 50 mg tablet 50 mg PO DAILY #90 tabs 08/08/24 08/10/24 Unknown Rx pantoprazole 40 mg tablet,delayed 40 mg PO BID #180 tabs 08/08/24 08/10/24 Unknown Rx release Allergies Allergy/AdvReac Type Severity Reaction Status Date / Time Penicillins Allergy Unknown Rash,Unknow Verified 07/25/24 12:36 n Current Medications Generic Name Dose Route Start Last Admin Trade Name Freq PRN Reason Stop Dose Admin Amiodarone HCl 100 mg 08/11/24 09:00 08/11/24 11:15 Amiodarone 200 Mg Tablet PO Not Given DAILY NIKO Apixaban 2.5 mg 08/11/24 09:00 08/11/24 11:15 Apixaban 5 Mg Tablet PO Not Given BID NIKO Aspirin 81 mg 08/11/24 09:00 08/11/24 11:15 Aspirin 81 Mg Ec Tablet PO Not Given DAILY NIKO Furosemide 80 mg 08/11/24 09:00 08/11/24 11:15 Furosemide 40 Mg Tablet PO Not Given BID NIKO Linezolid 600 mg in 300 mls @ 300 mls/hr 08/10/24 23:15 08/11/24 12:49 Zyvox Premix IV Infused Q12H NIKO Infusion Protocol Insulin Human Lispro 0 unit 08/11/24 08:00 08/11/24 12:50 Insulin Lispro 100 Unit/1 Ml SUBCUT Not Given WM&BEDTIME NIKO Protocol Levothyroxine Sodium 100 mcg 08/11/24 09:00 08/11/24 11:15 Levothyroxine 100 Mcg Tablet PO Not Given DAILY NIKO Losartan Potassium 50 mg 08/11/24 09:00 08/11/24 11:15 Losartan 50 Mg Tablet PO Not Given DAILY NIKO Meropenem 500 mg 08/10/24 23:30 08/11/24 11:10 Meropenem 500 Mg Sdv IVP 500 mg Q12H [facility] Administration Protocol Pantoprazole Sodium 40 mg 08/11/24 09:00 08/11/24 11:[address] 40 Mg Tablet PO Not Given BID NIKO Spironolactone 12.5 mg 08/11/24 09:00 08/11/24 11:16 Spironolactone 25 Mg Tablet PO Not Given DAILY NIKO PFSH Acute 2 PFSH: Medical History (Updated 08/10/24 @ 23:20 by Mann Payne MD) Acute alteration in mental status Acute blood loss anemia SBP (spontaneous bacterial peritonitis) Skin tag Hospital discharge follow-up Closed pelvic fracture Community acquired pneumonia Confusion Headache Peripheral edema Interstitial lung disease ANSON (acute kidney injury) Hyponatremia Essential hypertension ESRD (end stage renal disease) on dialysis Sepsis Cystitis Decubitus ulcer, buttock Heel ulcer UTI (urinary tract infection) Leukocytosis Pubic ramus fracture Closed fracture of single pubic ramus of pelvis Pelvic fracture Acute respiratory failure with hypoxia Hypoxemia Atrial fibrillation PVC (premature ventricular contraction) Hypoglycemia associated with type 2 diabetes mellitus Pneumonia due to COVID-19 virus ESRD on peritoneal dialysis Atrial fibrillation Acute kidney injury superimposed on CKD Pneumonia Osteoarthritis (arthritis due to wear and tear of joints) Altered mental status Meningioma Anemia COVID-19 resolved Hypothyroidism GERD (gastroesophageal reflux disease) HTN (hypertension) CHF (congestive heart failure) CKD (chronic kidney disease) Diabetes Surgical History History of ankle surgery S/P tonsillectomy Status post tubal ligation S/P cataract extraction S/P cervical spinal fusion Peritoneal dialysis catheter in situ (06/26/21) Family History Mother Hypertension Grandmother Hypertension MATERNAL Other Cancer Diabetes Social History Smoking and tobacco/nicotine status: never used tobacco/nicotine Quit status (tobacco/nicotine): has quit using Year quit tobacco: 1977 [id number] Second hand smoke exposure: Yes Alcohol intake: never Substance/Drug Use: never Caregiver/support person: Yes Lives independently: Yes Household members: spouse and children Housing: House Marital status: Current occupational status: retired Pets and animals: Yes Do you think of yourself as: Straight/Heterosexual Current gender identity: Female Vitals/I&O/Wt Last Vital Signs Temp 98.7 F 08/11/24 07:32 Pulse 71 08/11/24 07:32 Resp 17 08/11/24 07:32 BP 151/61 08/11/24 07:32 Pulse Ox 91 08/11/24 07:32 O2 Del Method Room Air 08/11/24 07:32 08/10/24 08/11/24 08/11/24 22:59 06:59 14:59 Intake Total 0 / 0 300 / 300 300 / 300 Output Total 0 / 0 Balance 0 / 0 300 / 300 300 / 300 Weight last 48 hrs Weight 80.343 kg Weight 80.343 kg Weight 81.647 kg Data 08/11/24 06:01 08/11/24 06:01 Micro: Microbiology 08/10/24 18:35 Blood Culture - Preliminary Blood SPECIMEN COLLECTED 08/10/24 18:46 Blood Culture - Preliminary Blood SPECIMEN COLLECTED Coding Level of Care Code Acute Code for [facility]
--- NOTE | 2024-08-11 14:21 | USCV_ITS ---
Luiza Cooper Age: 84 Gender: F : 1940 Exam Date: 08/11/2024 18:12 Ordering Phys: Donta Amaro MD Technologist: Van Galdamez Exam Location: [facility] [place] Indication: swelling, pts family wants to wait to talk to the dr before exam. I spoke to nurse Radha, she said family had approved, to proceed. HISTORY: swelling, pts family wants to wait to talk to the dr before exam. I spoke to nurse [facility], she said family had approved, to proceed. PROCEDURES: Venous duplex imaging was performed in bilateral lower extremities. The following venous structures were evaluated: common femoral vein, profunda vein, proximal portion of the greater saphenous vein, superficial femoral vein, and the popliteal vein. In addition, the posterior tibial veins were evaluated. FINDINGS: Normal 2-D Doppler and augmentation and compressibility throughout the lower extremity venous structures. Additional imaging through the proximal calf veins also reveals no thrombus. Limited evaluation of the greater saphenous vein is patent with no thrombus. CONCLUSIONS No DVT bilateral lower extremities. Dr. Yohana Avilez DO (Electronically Signed) Final Date: 12 August 2024 09:33 S
--- NOTE | 2024-08-11 14:22 | ECG_ITS ---
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 Measurements Intervals [place] Rate: 69 P: 0 GA: 0 QRS: 59 QRSD: 107 T: 72 QT: 407 QTc: 439 Interpretive Statements SUPRAVENTRICULAR RHYTHM LOW QRS VOLTAGE IN PRECORDIAL LEADS [QRS DEFLECTION < 1.0 mV IN CHEST LEADS] MINIMAL ST DEPRESSION [0.025+ mV ST DEPRESSION] Compared to ECG 08/10/2024 16:58:36 Supraventricular rhythm now present ST (T wave) deviation now present Sinus rhythm no longer present Ventricular premature complex(es) no longer present Myocardial infarct finding no longer present Electronically Signed On 08-13-2024 10:28:45 WEIR FISHERMAN by Tony Villatoro M.D. [email or web address]
[2024-08-11 15:12] LABS: D Dimer 0.61 ug/mLFEU (0-0.59)
[2024-08-11 15:27] LABS: Troponin(5th) Baseline 144 ng/L (0-10)
--- NOTE | 2024-08-11 16:07 | CTR_ITS ---
PROCEDURE INFORMATION: Exam: CTA Head With Contrast, Arteriography Exam date and time: 08/11/2024 4:34 PM Age: 84 years old Clinical indication: Other: AMS TECHNIQUE: Imaging protocol: Computed tomographic angiography of the head with contrast. Exam focused on the arteries. 3D rendering (Not supervised by radiologist): MIP and/or 3D reconstructed images were created by the technologist. Radiation optimization: All CT scans at this facility use at least one of these dose optimization techniques: automated exposure control; mA and/or kV adjustment per patient size (includes targeted exams where dose is matched to clinical indication); or iterative reconstruction. Contrast material: OMNIPAQUE 350; Contrast volume: 75 ml; Contrast route: INTRAVENOUS (IV); COMPARISON: CT head wo con* [id number] 08/10/2024 3:52 PM RADIATION DOSE METRICS: Total DLP (mGy-cm): 415.7 FINDINGS: ANTERIOR CIRCULATION: Right internal carotid artery: Intracranial segment is patent with no significant stenosis. No aneurysm. Right middle cerebral artery: No occlusion or significant stenosis. No aneurysm. Right anterior cerebral artery: No occlusion or significant stenosis. No aneurysm. Left internal carotid artery: Intracranial segment is patent with no significant stenosis. No aneurysm. Left middle cerebral artery: No occlusion or significant stenosis. No aneurysm. Left anterior cerebral artery: No occlusion or significant stenosis. No aneurysm. POSTERIOR CIRCULATION: Right vertebral artery: No occlusion or significant stenosis. No aneurysm. Left vertebral artery: No occlusion or significant stenosis. No aneurysm. Basilar artery: No occlusion or significant stenosis. No aneurysm. Right posterior cerebral artery: No occlusion or significant stenosis. No aneurysm. Left posterior cerebral artery: No occlusion or significant stenosis. No aneurysm. Brain: Redemonstrated 1.2 cm meningioma along the junction of the right anterior and middle cranial fossa and a small right parietal meningioma. Cerebral ventricles: No ventriculomegaly. Bones/joints: Unremarkable. No acute fracture. Soft tissues: Unremarkable. PROCEDURE INFORMATION: Exam: CTA Neck With Contrast Exam date and time: 08/11/2024 4:34 PM Age: 84 years old Clinical indication: Other: AMS TECHNIQUE: Imaging protocol: Computed tomographic angiography of the neck with contrast. Exam focused on the cervical segments of the vasculature. 3D rendering (Not supervised by radiologist): MIP and/or 3D reconstructed images were created by the technologist. Radiation optimization: All CT scans at this facility use at least one of these dose optimization techniques: automated exposure control; mA and/or kV adjustment per patient size (includes targeted exams where dose is matched to clinical indication); or iterative reconstruction. Contrast material: OMNIPAQUE 350; Contrast volume: 75 ml; Contrast route: INTRAVENOUS (IV); COMPARISON: CT angio chest w abd pel w con 08/11/2024 4:34 PM RADIATION DOSE METRICS: Total DLP (mGy-cm): 415.7 FINDINGS: Limitations: Motion artifact on exam which limits fine detailed evaluation of the large vessels of the neck. Right common carotid artery: No stenosis. No dissection or occlusion. Right internal carotid artery: Suspected severe stenosis at the origin with roughly 70% luminal narrowing. No dissection or occlusion. Right external carotid artery: No occlusion or stenosis of the origin. Left common carotid artery: No stenosis. No dissection or occlusion. Left internal carotid artery: Suspected moderate stenosis at the origin with roughly 60% luminal narrowing. No dissection or occlusion. Left external carotid artery: No occlusion or stenosis of the origin. Right vertebral artery: No stenosis. No dissection or occlusion. Left vertebral artery: No stenosis. No dissection or occlusion. Soft tissues: Normal. No significant soft tissue swelling. Bones/joints: No acute fracture. Pleural spaces: Bilateral moderate volume pleural effusions with interlobular septal thickening most suggestive of interstitial pulmonary edema. CT/CT angio headneck* [id number] IMPRESSION: No large vessel stenosis or occlusion. IMPRESSION: 1. Motion limited exam. Moderate to severe bilateral stenosis at the origins of the internal carotid arteries. No occlusion. 2. Findings suggestive of interstitial pulmonary edema with moderate bilateral pleural effusions. REFERENCES: NASCET CRITERIA. The degree of stenosis in the cervical segment of the internal carotid artery is based on NASCET criteria. Normal is no stenosis. Mild is less than 50% stenosis. Moderate is 50-69% stenosis. Severe is 70% to 99% stenosis. Total occlusion is no detectable patent lumen.
[2024-08-11] MEDS: iohexol 350 mg/mL 500 mL Btl (per mL) IV ×2 (16:37→16:38)
[2024-08-11 17:00] LABS: Ammonia 20 umol/L (11-51)
[2024-08-11 17:11] LABS: Glucose Point of Care 189 mg/dL (70-110)
--- NOTE | 2024-08-11 18:06 | PM.PN ---
Subjective Subjective: - Patient was examined this morning, daughter is at bedside is at bedside -Patient's family tells me that for the last 2 to 3 days, her appetite has decreased, she has had intermittent episodes of confusion, more fatigue, more malaise, she had dialysis 2 days ago and her daughter tells me that that took a lot of energy out of her -Family tells me that the significant confusion started in the last 24 hours, she is less interactive, she slept more than usual, she did not eat in the last day, -On examination, Luiza is alert to person, not to place, to time, when I called out her name, she is able to track me, but falls back asleep, pupils are equal round reactive to light, I cannot discern any facial droop, she moves both upper and lower extremities, she is able to turn in bed, but does not follow commands, has a Babinski upward bilaterally, she does withdraw from pain -Did a thorough skin exam, on her right heel she has a ulcer/wound, that was packed, but I was able to remove packing, and look at, has good surrounding granulation tissue -Also Kernig sign negative, brudunski sign negative -Currently afebrile, normotensive, on room air, -Discussed with family my plan to continue to monitor her closely, monitor mentation continue IV antibiotics as there is concerns for a UTI antibiotic coverage has been broadened to meropenem, Zyvox, CT of chest abdomen ordered, CTA head and neck ordered, blood work ordered -Patient and family again was seen this afternoon -This afternoon, she is able to awaken to her name, pupils equal round react to light, she tracks me a bit, I cannot discern any significant neglect, she is laying on her side, she can move bilateral upper and lower extremities but does not follow commands is hard to determine any strength difference, she has not had a febrile she is normotensive she is afebrile -Family would like to talk to be about possible hospice, -I had a detailed discussion with family about Luiza's toxic encephalopathy -The question is that is just encephalopathy reversible or not and what is the etiology -Currently it is not exactly clear -My first thought was could this be a brainstem stroke, if indeed this was a brainstem stroke, we could consider an MRI however her daughter at bedside tells me that she has multiple plates in her neck, and MRIs on her are very difficult to interpret, I have ordered a CTA of her head and neck we could evaluate her circulation, eval for thrombus, especially as her oral intake has decreased, she has not taken her meds, high risk of thrombus -But the treatment nonetheless would be conservative rest, laying flat for 24 hours, IV fluids, permissive hypertension we can see how her mentation does by tomorrow -The other thought could be septic encephalopathy given her elevated white blood cell count, her CRP or Pro-Maikol -Certainly if she was already on quite broad-spectrum antibiotic therapy daptomycin and cefepime, however daptomycin does not penetrate the lungs ? The point of the CT of the chest will to evaluate possible pneumonia, as she has an increased risk of pulmonary embolism elevated D-dimer elevated troponins CTA would help to evaluate for possible PE ? Or concern for recurrence of her peritonitis, CT abdomen pelvis would help us delineate any abdominal pathology -Other concerns would be UTI, given her UA, she has never had any documented ESBL infections, but I broadened her coverage to meropenem, ? Her troponins are certainly elevated, she could have had a cardiac event, in the last few days, would recommend anticoagulant therapy and monitoring her for 24 hours ? I have ordered ammonia levels, repeat TSH levels tomorrow although her T4 is normal, I presume she has not taken her levothyroxine in the last few days given her declining mentation and poor appetite -The other question could be is she withdrawing from the medication, the only significant medication I can see is doxazosin -I have recommended further workup, as above, inpatient monitoring, supportive care, continue IV antibiotics, monitoring for 24 hours -Family does not want aggressive interventions, no significant surgeries, above all they do not want her to suffer -They are in agreement for workup as above, medical interventions, but no aggressive interventions -Want to wait until tomorrow to see how she does before making decisions about her if they want to stop all medical interventions or continue -Initially there was plans on dialysis, to see if a session of dialysis would improve her mentation, however family has declined as she did not tolerate dialysis well as outpatient -Plans on dialysis tomorrow, family in agreement -We also discussed Luiza's CODE STATUS, patient's sons, , daughter who is the healthcare power of workers compensation defense attorney were all at bedside -All are in agreement that they would like Luiza to be DNR/DNI, they do not want aggressive interventions, and above all they do not want Luiza to suffer Vitals/I&O/Wt Last Vital Signs Temp 97.7 F 08/11/24 17:52 Pulse 75 08/11/24 17:52 Resp 16 08/11/24 17:52 BP 148/67 08/11/24 17:52 Pulse Ox 90 08/11/24 17:52 O2 Del Method Room Air 08/11/24 17:52 08/11/24 08/11/24 08/11/24 06:59 14:59 22:59 Intake Total 300 / 300 300 / 300 Balance 300 / 300 300 / 300 Weight last 48 hrs Weight 80.343 kg Weight 80.343 kg Weight 81.647 kg Physical Exam Const: EXAM LIMITATIONS: altered mental status ORIENTATION/CONSCIOUSNESS: Yes awake and Yes confused; not oriented to person, not oriented to place and not oriented to time Eye: COMMON NORMALS: Equal, round and reactive pupils present PUPIL: Yes Equal, round and reactive pupils present Resp: COMMON NORMALS: normal respiratory effort, No retractions, No use of accessory muscles and clear to auscultation bilaterally AUSCULTATION: clear to auscultation bilaterally Cardio: COMMON NORMALS: regular rate, regular rhythm, S1 normal heart sound present and S2 normal heart sound present RATE: regular rate RHYTHM: regular rhythm HEART SOUNDS: S1 normal heart sound present and S2 normal heart sound present GI: COMMON NORMALS: Normal to inspection, nondistended, normoactive bowel sounds present and non-tender Extremity: COMMON NORMALS: no pedal edema Neuro: SENSORIUM/ORIENTATION: No oriented to person, No oriented to place and No oriented to time Data 08/11/24 06:01 08/11/24 06:01 Micro: Microbiology 08/10/24 18:35 Blood Culture - Preliminary Blood SPECIMEN COLLECTED 08/10/24 18:46 Blood Culture - Preliminary Blood SPECIMEN COLLECTED A&P Assessment and plan (1) AMS (altered mental status): Altered mental status -Toxic encephalopathy -Etiology unclear -Septic encephalopathy? Multiple sources of infection right heel, peritonitis, UTI -Possible UTI, follow urine culture, continue meropenem -Recent peritonitis, PD catheter removed, continue meropenem, Zyvox -Right heel ulcer/wound, continue antibiotics -CT chest abdomen pelvis, to evaluate for intra-abdominal pathology, course of peritonitis? Possible pneumonia, possible discitis, vertebral osteomyelitis -CT angiogram to eval for PE, venous us given elevated D-dimer elevated troponins -Ammonia levels ? Concern for possible cardiac event? Elevated troponins, cardiac echo, continue heparin drip -Possible brainstem stroke? Posterior circulation stroke? Keep flat, allow for permissive hypertension, IV fluids, monitor mentation, CTA head and neck -ABG no significant hypercarbia -Possible daptomycin toxicity? Or cefepime toxicity? Patient's family declines dialysis today (2) Acute lower urinary tract infection: Continue meropenem, Zyvox (3) Osteomyelitis: Osteomyelitis of right heal Status post I&D by podiatry during last hospitalization Continue wound care Abx as above (4) Acute bacterial peritonitis: (5) ESRD (end stage renal disease) on dialysis: Previously PD s/p PD cath removal d/t peritonitis Nephrology consulted Strict I&Os Renally dose medications (6) GI bleed: Recent EGD and colonoscopy -EGD polypectomy -Colonoscopy polyp removed (7) Diabetes: SSI Qualifiers: Chronic kidney disease stage: on chronic dialysis Diabetes mellitus complication detail: with chronic kidney disease Diabetes mellitus complication status: with kidney complications Diabetes mellitus [facility] use: with [facility] use Diabetes mellitus type: type 2 Qualified Code(s): E11.22 - Type 2 diabetes mellitus with diabetic chronic kidney disease; N18.6 - End stage renal disease; Z79.4 - senior care (current) use of insulin; Z99.2 - Dependence on renal dialysis (8) NSTEMI (non-ST elevated myocardial infarction): (9) Toxic encephalopathy: Plan DVT prophylaxis: Heparin drip Goals of care, DNR/DNI Attestations Medical Necessity Statement*: Patient requires hospitalization for toxic encephalopathy Diagnoses AMS (altered mental status) R41.82 Acute lower urinary tract infection N39.0 Osteomyelitis M86.9 Acute bacterial peritonitis K65.9 ESRD (end stage renal disease) on dialysis N18.6; Z99.2 GI bleed K92.2 Type 2 diabetes mellitus with chronic kidney disease on chronic dialysis, with long-term current use of insulin E11.22; N18.6; Z79.4; Z99.2 Chronic kidney disease stage: on chronic dialysis Diabetes mellitus complication detail: with chronic kidney disease Diabetes mellitus complication status: with kidney complications Diabetes mellitus [facility] 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
[2024-08-11] MEDS: heparin 5,000 unit/mL INJ 1 mL IVP (18:40)
[2024-08-11 18:47] LABS: Partial Thromboplastin Time 47.7 SECONDS (23.9-36.7)
[2024-08-11] MEDS: heparin drip 25,000 UNIT/500 ML PREMIX 23 UNIT IV (18:48)
[2024-08-11] MEDS: sodium chloride 0.9% 1,000 ML 100 ML IV (18:54)
[2024-08-11] MEDS: pantoprazole 40 mg SDV IVP (20:19)
[2024-08-11 21:18] LABS: Glucose Point of Care 193 mg/dL (70-110)
[2024-08-11 21:27] LABS: Troponin 5 6HR Delta 1.7 ng/L (0-12)
[2024-08-11 21:36] LABS: Troponin 5 6HR 145.7 ng/L (0-10)
[2024-08-12] VITALS (7 sets, daily range): BP systolic 136–148; BP diastolic 44–69; PULSE 70–99; RESP 15–18; TEMP 36.3–36.7; O2SAT 92–94
[2024-08-12 01:15] LABS: Basophils # 0.1 10^3/uL (0.0-0.1); Basophils % 0.4 %; Eosinophils # 0.3 10^3/uL (0.0-0.8); Eosinophils % 1.5 %; Hematocrit 27.9 % (36-47); Lymphocytes # 1.3 10^3/uL (0.8-4.8); Lymphocytes % 6.9 %; Mean Corpuscular HGB Conc 31.2 g/dL (30-55); Mean Corpuscular Hemoglobin 31.5 pg (27-33); Mean Corpuscular Volume 101.1 fl (85-98); Mean Platelet Volume 9.3 fL (7.4-10.4); Monocytes % 5.3 %; Neutrophils # 15.24 10^3/uL (1.8-7.7); Nucleated Red Blood Cells % 0.1 %; Platelet Count 296 10^3/cmm (157-399); Red Blood Count 2.76 10^6/uL (3.85-5.65); Red Cell Distribution Width 16.6 % (12.1-15.1); White Blood Count 18.14 10^3/uL (3.29-11.43)
[2024-08-12 01:32] LABS: Lactate (Lactic Acid level) 1.2 mmol/L (0.5-2.2)
[2024-08-12 01:33] LABS: Alanine Aminotransferase 13 U/L (0-33); Albumin Level 2.3 g/dL (3.5-5.2); Alkaline Phosphatase 84 U/L (35-105); Anion Gap 19.1 (5-19); Aspartate Amino Transferase 9 U/L (0-32); Blood Urea Nitrogen 15 mg/dL (8-23); C Reactive Protein 108.5 mg/L (0.0-4.9); Calcium 7.8 mg/dL (8.5-10.5); Carbon Dioxide 21 mmol/L (22-29); Chloride 98 mmol/L (98-107); Creatinine Clr Calc Pharmacy 15.8151; Globulin 2.5 g/dL (1.3-4.6); Glucose 213 mg/dL (65-115); Magnesium 1.9 mg/dL (1.7-2.3); Osmolality Calculated 287 mOsm/kg (285-295); Phosphorus 2.6 mg/dL (2.5-4.5); Potassium 3.1 mmol/L (3.5-5.1); Sodium 135 mmol/L (136-145); Total Bilirubin 0.4 mg/dL (0.15-1.2); Total Protein 4.8 g/dL (6.6-8.7)
[2024-08-12 01:41] LABS: Partial Thromboplastin Time > 250.0 SECONDS (23.9-36.7)
[2024-08-12 01:46] LABS: Free T4 Free Thyroxine 1.05 ng/dL (0.82-1.77); Procalcitonin 0.85 ng/mL (0-0.5); T3 Free 0.9 PG/ML (2.0-4.4); Thyroid Stimulating Hormone 22.36 uIU/mL (0.27-4.20)
[2024-08-12] MEDS: sodium chloride 0.9% 1,000 ML 100 ML IV (05:18)
[2024-08-12] MEDS: pantoprazole 40 mg SDV IVP (05:18)
[2024-08-12 06:26] LABS: Partial Thromboplastin Time 55.4 SECONDS (23.9-36.7)
[2024-08-12 06:43] LABS: Glucose Point of Care 186 mg/dL (70-110)
--- NOTE | 2024-08-12 08:18 | PC.NURSE ---
Care Update: Per daughter whom is DPOA, she does not want to continue Heparin drip, IV maintenance fluids, antibiotics, or dialysis for pt. Orders discontinued. Dr. Amaro notified.
--- NOTE | 2024-08-12 13:31 | PC.NURSE ---
Disla Catheter Insertion - dressage instructor was present during disla insertion by student nurse, Sarah Schmidt. Patient tolerated well. Light yellow urine present in disla bag.
[2024-08-12 13:47] LABS: Partial Thromboplastin Time 37.6 SECONDS (23.9-36.7)
--- NOTE | 2024-08-12 14:46 | PM.PN ---
Subjective Subjective: Patient was seen this morning -Family members at bedside -She awakens to her name, does not track, pupils equal round reactive to light, but falls asleep, is alert oriented x 0, does not follow commands -She does awaken to sternal rub, she does withdraw from pain, she does localize pain, Babinski's upward going bilaterally, -Afebrile overnight, normotensive, on room air -Family believes that she has not really improved overnight, has not followed commands, does not recognize family members, has not carried out any conversations -Patient's family tells me that for last 4 days, she has had slowed clinical deterioration, poor appetite, increased confusion, poor improvement -I discussed with family that I think likely the cause is acute neurologic injury possibly a posterior circulation stroke or brainstem stroke -I doubt that she has septic encephalopathy although she does have leukocytosis she has not had any fevers, her blood cultures so far no growth, her septic markers have improved she remains hemodynamically stable, she has been on antibiotics, she is on antibiotics here and her mentation has not improved, and the CT chest abdomen pelvis that I ordered did not any reveal any new focuses of infection -Her ammonia levels are within normal limits -No significant electrolyte abnormalities to explain her mentation -Her troponins are strongly elevated she could had a cardiac event, but she remains on room air, no significant evidence of pulmonary edema -Venous ultrasound negative for DVT, CTA negative for PE -No growth on UA, blood cultures so far negative -thus given her mentation -I think that she has had acute neurologic injury -Etiology suspicious for CVA, brainstem stroke or posterior circulation stroke -Her CTA head and neck did show bilateral internal carotid artery stenosis, and internal carotid artery narrowing at 70%, left internal carotid artery narrowing at 60%, no acute occlusion -Other possibilities could be meningitis such as a fungal meningitis or viral meningitis -Other possibilities could be seizures -Options I discussed with patient was continuing medical interventions, doing further workup including lumbar puncture, EEG trying seizure medications placing on antivirals, more medical interventions, giving her time, continue anticoagulant therapy allowing for permissive hypertension if it is a stroke, IV fluids, pursuing MRI of the brain -I would recommend a further workup, further evaluation -Patient's family in the morning wanted all medical interventions to be stopped, wanted her blood thinners to be stopped, heparin to be stopped, antibiotics to be stopped, they declined dialysis -Yesterday they were considering hospice, but they want to give her 24 hours -Spoke to family today about hospice, what hospice would entail, the goal of hospice would be to ease her pain easing her suffering allow her to pass away comfortably, we will stop all medical interventions -After discussing with them the risks and benefits of all options, they voiced understanding, all questions answered, shared decision making, patient's and daughter who specifically is patient's healthcare power of workers compensation defense attorney wants to proceed with hospice/comfort care -Want all medical interventions to be stopped, no dialysis, want comfort measure only -Will have comfort/hospice team see patient, start comfort care orders Vitals/I&O/Wt Last Vital Signs Temp 97.3 F L 08/12/24 07:25 Pulse 96 08/12/24 07:25 Resp 17 08/12/24 07:25 BP 137/67 08/12/24 07:25 Pulse Ox 94 08/12/24 07:25 O2 Del Method Room Air 08/12/24 07:25 08/11/24 08/12/24 08/12/24 22:59 06:59 14:59 Intake Total 1460.233 / 0187.247 7113.767 / 1339.767 Balance 1460.233 / 0249.759 9978.767 / 1339.767 Weight last 48 hrs Weight 82.299 kg Weight 80.343 kg Weight 80.343 kg Weight 81.647 kg Physical Exam Const: COMMON NORMALS: no acute distress ORIENTATION/CONSCIOUSNESS: Yes awake and Yes confused; not oriented to person, not oriented to place and not oriented to time Eye: COMMON NORMALS: Equal, round and reactive pupils present PUPIL: Yes Equal, round and reactive pupils present Resp: COMMON NORMALS: normal respiratory effort, No retractions, No use of accessory muscles and clear to auscultation bilaterally AUSCULTATION: clear to auscultation bilaterally Cardio: COMMON NORMALS: regular rate, regular rhythm, S1 normal heart sound present and S2 normal heart sound present RATE: regular rate RHYTHM: regular rhythm HEART SOUNDS: S1 normal heart sound present and S2 normal heart sound present GI: COMMON NORMALS: Normal to inspection, nondistended, normoactive bowel sounds present and non-tender Extremity: COMMON NORMALS: no pedal edema Neuro: SENSORIUM/ORIENTATION: No oriented to person, No oriented to place and No oriented to time Data 08/12/24 00:59 08/12/24 00:59 Micro: Microbiology 08/10/24 18:14 Urine Culture - Final Urine,Clean Catch 08/10/24 18:35 Blood Culture - Preliminary Blood NEGATIVE TO DATE 08/10/24 18:46 Blood Culture - Preliminary Blood NEGATIVE TO DATE A&P Assessment and plan (1) AMS (altered mental status): Proceeding with comfort care -Consult comfort care/hospice team -Comfort care order sets placed Altered mental status -Toxic encephalopathy -Etiology unclear -Septic encephalopathy? Multiple sources of infection right heel, peritonitis, UTI -Possible UTI, follow urine culture, continue meropenem -Recent peritonitis, PD catheter removed, continue meropenem, Zyvox -Right heel ulcer/wound, continue antibiotics -CT chest abdomen pelvis, to evaluate for intra-abdominal pathology, course of peritonitis? Possible pneumonia, possible discitis, vertebral osteomyelitis -CT angiogram to eval for PE, venous us given elevated D-dimer elevated troponins -Ammonia levels ? Concern for possible cardiac event? Elevated troponins, cardiac echo, continue heparin drip -Possible brainstem stroke? Posterior circulation stroke? Keep flat, allow for permissive hypertension, IV fluids, monitor mentation, CTA head and neck -ABG no significant hypercarbia -Possible daptomycin toxicity? Or cefepime toxicity? Patient's family declines dialysis today (2) Acute lower urinary tract infection: Continue meropenem, Zyvox (3) Osteomyelitis: Osteomyelitis of right heal Status post I&D by podiatry during last hospitalization Continue wound care Abx as above (4) Acute bacterial peritonitis: (5) ESRD (end stage renal disease) on dialysis: Previously PD s/p PD cath removal d/t peritonitis Nephrology consulted Strict I&Os Renally dose medications (6) GI bleed: Recent EGD and colonoscopy -EGD polypectomy -Colonoscopy polyp removed (7) Diabetes: SSI Qualifiers: Diabetes mellitus type: type 2 Diabetes mellitus correction insulin use: with long distance 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 Diabetes mellitus complication status: with kidney complications Diabetes mellitus complication detail: with chronic kidney disease Chronic kidney disease stage: on chronic dialysis Qualified Code(s): E11.22 - Type 2 diabetes mellitus with diabetic chronic kidney disease; N18.6 - End stage renal disease; Z79.4 - terminal makeup operator (current) use of insulin; Z99.2 - Dependence on renal dialysis (8) NSTEMI (non-ST elevated myocardial infarction): (9) Toxic encephalopathy: (10) Need for comfort care: Attestations Medical Necessity Statement*: Patient requires hospitalization for comfort care Diagnoses AMS (altered mental status) R41.82 Acute lower urinary tract infection N39.0 Osteomyelitis M86.9 Acute bacterial peritonitis K65.9 ESRD (end stage renal disease) on dialysis N18.6; Z99.2 GI bleed K92.2 Type 2 diabetes mellitus with chronic kidney disease on chronic dialysis, with long-term current use of insulin E11.22; N18.6; Z79.4; Z99.2 Diabetes mellitus type: type 2 Diabetes mellitus long distance operator insulin use: with correction use Diabetes mellitus complication status: with kidney complications Diabetes mellitus complication detail: with chronic kidney disease Chronic kidney disease stage: on chronic dialysis NSTEMI (non-ST elevated myocardial infarction) I21.4 Toxic encephalopathy G92.9 Need for comfort care
[2024-08-12] MEDS: blistex lip oint 7 gm Tube 1 APPLIC TOPICAL (15:12)
[2024-08-12] MEDS: morphine 4 mg/mL SDV 1 mL IVP ×2 (15:15→18:55)
[2024-08-13] MEDS: morphine 10 mg/0.5 mL oral liq UD SUBLINGUAL (01:53)
[2024-08-13 05:06] VITALS: PULSE 70
[2024-08-13 08:28] VITALS: RESP 20
[2024-08-13] MEDS: morphine 4 mg/mL SDV 1 mL IVP ×3 (08:28→23:57)
--- NOTE | 2024-08-13 14:22 | P.PN_ITS ---
Subjective 2 Subjective: Patient was seen this morning, she is nonresponsive, is at bedside, he tells me that she has not woken up Vitals/I&O/Wt Last Vital Signs Temp 97.3 F L 08/12/24 07:25 Pulse 70 08/13/24 05:06 Resp 20 H 08/13/24 08:28 BP 137/67 08/12/24 07:25 Pulse Ox 94 08/12/24 07:25 O2 Del Method Room Air 08/12/24 07:25 Weight last 48 hrs Weight 82.242 kg Weight 82.299 kg Physical Exam 2 Const: ORIENTATION/CONSCIOUSNESS: not awake, not oriented to person, not oriented to place and not oriented to time Resp: COMMON NORMALS: normal respiratory effort and No use of accessory muscles AUSCULTATION: crackles and wheezes Cardio: COMMON NORMALS: regular rate, regular rhythm, S1 normal heart sound present and S2 normal heart sound present RATE: regular rate RHYTHM: r egular rhythm HEART SOUNDS: S1 normal heart sound present and S2 normal heart sound present GI: COMMON NORMALS: Normal to inspection, nondistended, normoactive bowel sounds present Extremity: COMMON NORMALS: no pedal edema Neuro: SENSORIUM/ORIENTATION: No oriented to person, No oriented to place and No oriented to time Urinary Catheter Management: Corral: Cath Placed During This Visit: no Reason for Continuing Indwelling Catheter: Hospice/Comfort/Palliative Care Data 08/12/24 00:59 08/12/24 00:59 Micro: Microbiology 08/10/24 18:14 Urine Culture - Final Urine,Clean Catch A&P Assessment and plan (1) AMS (altered mental status): Inpatient comfort care -Consult comfort care/hospice team -Comfort care order sets placed (2) Acute lower urinary tract infection: Continue meropenem, Zyvox (3) Osteomyelitis: Osteomyelitis of right heal Status post I&D by podiatry during last hospitalization Continue wound care Abx as above (4) Acute bacterial peritonitis: (5) ESRD (end stage renal disease) on dialysis: Previously PD s/p PD cath removal d/t peritonitis Nephrology consulted Strict I&Os Renally dose medications (6) GI bleed: Recent EGD and colonoscopy -EGD polypectomy -Colonoscopy polyp removed (7) Diabetes: SSI Qualifiers: Diabetes mellitus type: type 2 Diabetes mellitus terminal press operator insulin use: with halfway use Diabetes mellitus complication status: with kidney complications Diabetes mellitus complication detail: with chronic kidney disease Chronic kidney disease stage: on chronic dialysis Qualified Code(s): E 11.22 - Type 2 diabetes mellitus with diabetic chronic kidney disease; N18.6 - End stage renal disease; Z79.4 - assistant terminal manager (current) use of insulin; Z99.2 - Dependence on renal dialysis (8) NSTEMI (non-ST elevated myocardial infarction): (9) Toxic encephalopathy: (10) Need for comfort care: Attestations 2 Medical Necessity Statement*: Patient is currently on comfort care and Moderate MDM includes number and complexity of problems actively addressed during encounter, amount and/or complexity of data reviewed/ordered and described risk of complication, morbidity or mortality of management as documented Diagnoses AMS (altered mental status) R41.82 Acute lower urinary tract infection N39.0 Osteomyelitis M86.9 Acute bacterial peritonitis K65.9 ESRD (end stage renal disease) on dialysis N18.6; Z99.2 GI bleed K92.2 Type 2 diabetes mellitus with chronic kidney disease on chronic dialysis, with long-term current use of insulin E11.22; N18.6; Z79.4; Z99.2 Diabetes mellitus type: type 2 Diabetes mellitus terminal press operator insulin use: with halfway use Diabetes mellitus complication status: with kidney complications Diabetes mellitus complication detail: with chronic kidney disease Chronic kidney disease stage: on chronic dialysis NSTEMI (non-ST elevated myocardial infarction) I21.4 Toxic encephalopathy G92.9 Need for comfort care
[2024-08-13 16:58] VITALS: RESP 18
[2024-08-13 23:57] VITALS: RESP 14; O2SAT 94
[2024-08-14 08:02] VITALS: RESP 17
[2024-08-14] MEDS: morphine 4 mg/mL SDV 1 mL IVP ×4 (08:02→22:43)
[2024-08-14] MEDS: LORazepam 2 mg/mL INJ 1 mL IVP (09:18)
--- NOTE | 2024-08-14 15:09 | P.PN_ITS ---
Subjective 2 Subjective: Patient was seen this morning, is at bedside, no acute events overnight currently on inpatient hospice Vitals/I&O/Wt Last Vital Signs Temp 97.3 F L 08/12/24 07:25 Pulse 70 08/13/24 05:06 Resp 17 08/14/24 08:02 BP 137/67 08/12/24 07:25 Pulse Ox 94 08/13/24 23:57 O2 Del Method Room Air 08/12/24 07:25 08/14/24 08/14/24 08/14/24 06:59 14:59 22:59 Output Total 600 / 600 Balance -600 / -600 Weight last 48 hrs Weight 83.121 kg Weight 82.242 kg Physical Exam 2 Const: COMMON NORMALS: no acute distress and patient oriented x3 Resp: COMMON NORMALS: normal respiratory effort, No retractions, No use of accessory muscles and clear to auscultation bilaterally AUSCULTATION: clear to auscultation bilaterally Cardio: COMMON NORMALS: regular rate, regular rhythm, S1 normal heart sound present and S2 normal heart sound present RATE: regular rate RHYTHM: r egular rhythm HEART SOUNDS: S1 normal heart sound present and S2 normal heart sound present GI: COMMON NORMALS: Normal to inspection, nondistended, normoactive bowel sounds present and non-tender Extremity: COMMON NORMALS: no pedal edema Neuro: COMMON NORMALS: patient oriented x3 Psych: COMMON NORMALS: mental status grossly normal Urinary Catheter Management: Corral: Cath Placed During This Visit: no Reason for Continuing Indwelling Catheter: Hospice/Comfort/Palliative Care Data 08/12/24 00:59 08/12/24 00:59 A&P Assessment and plan (1) Hospice care: (2) Admission for hospice care: Plan Currently on hospice Attestations 2 Medical Necessity Statement*: Patient requires hospitalization for hospice care Diagnoses Hospice care Z51.5 Admission for hospice care Z51.5
[2024-08-14 15:34] VITALS: RESP 18
[2024-08-14 18:17] VITALS: RESP 18
[2024-08-14 22:43] VITALS: RESP 18
--- NOTE | 2024-08-14 23:23 | PC.NURSE ---
Zeynep MARISCAL taking care of patient until approximately 22:30 at which point this nurse assumed care.
[2024-08-15] MEDS: ondansetron 2 mg/ML SDV 2 mL 4 MG IVP (00:18)
--- NOTE | 2024-08-15 02:45 | PC.NURSE ---
Patient passed at approximately 02:05. Postmortem care was performed by this nurse and ASHLY Mathews.
--- NOTE | 2024-08-15 02:54 | PC.NURSE ---
MTS notified. Pt is potential candidate. Ref #: [id number]
--- NOTE | 2024-08-15 03:15 | PC.NURSE ---
Time of 0205, verified with SERA Mendes. Patient's notified at 0210, patient's daughter notified at 0212, Dr Payne notified via VOALTE at 0232. MTS notified at 0236, currently unsure of donor status. Post mortem care provided. Family members arrived at 0315 to see patient.
--- NOTE | 2024-08-15 04:32 | PC.NURSE ---
MTS Update @ 7051 Pt is candidate for donation, continue to hold. [facility] notified that refrigerated morgue is unavailable at this time due to 2 other MTS holds.
--- NOTE | 2024-08-15 06:18 | PC.NURSE ---
MTS Pt released from MTS hold. Pt cleared to be transferred to home, pt care RN notified.
--- NOTE | 2024-08-15 17:47 | PM.DDS ---
Discharge Providers DDS Date of Admission: 08/11/24 18:06 Date Summary Completed: 08/15/24 Attending Provider at Admission: Mann Payne MD Attending Provider at Discharge: Donta Amaro MD Primary Care Provider: Mann Garduno MD DS Diagnoses Hospital Diagnoses (1) Hospice care: (2) Admission for hospice care: Reason for Visit Reason for Visit AMS Summary Additional Data Advance directives?: Yes Discharge Plan Discharge Patient Disposition: Hospice - Medical Facility Condition: Stable Prescriptions: No Action spironolactone 25 mg tablet 12.5 mg PO DAILY Qty: 30 6RF hydrocodone-acetaminophen 5-325 mg tablet 1 tab PO Q8H PRN (Reason: pain) 30 Days Qty: 45 0RF (DME) Contour Next Test Strips Strip See Rx Instructions .ROUTE .COMPLEX Qty: 300 6RF Dose Instruction: USE 1 STRIP TO CHECK GLUCOSE THREE TIMES DAILY Rx Instructions: USE 1 STRIP TO CHECK GLUCOSE THREE TIMES DAILY (DME) blood-glucose meter [OneTouch Ultra2 Meter] Misc See Rx Instructions .Route Qty: 1 0RF Rx Instructions: As directed (DME) lancets [OneTouch Delica Plus Lancet] 33 gauge misc See Rx Instructions .Route Qty: 100 12RF Rx Instructions: As directed (DME) pen needle, diabetic [BD Ultra-Fine Short Pen Needle] 31 gauge x 5/16 needle See Rx Instructions .ROUTE .COMPLEX Qty: 100 6RF Dose Instruction: USE TO INJECT INSULIN 2-3 TIMES A DAY Rx Instructions: USE TO INJECT INSULIN 2-3 TIMES A DAY amiodarone 100 mg tablet 100 mg PO DAILY Qty: 30 3RF (DME) OneTouch Ultra Test Strip See Rx Instructions .ROUTE .COMPLEX Qty: 200 3RF Dose Instruction: USE TO CHECK GLUCOSE THREE TIMES DAILY Rx Instructions: USE TO CHECK GLUCOSE THREE TIMES DAILY furosemide 40 mg tablet 80 mg PO BID Qty: 180 3RF coenzyme Q10 [CoQ-10] 100 mg Capsule 100 mg PO BEDTIME RenaPlex-D 800 mcg-12.5 mg -2,000 unit tablet 1 tab PO DAILY atorvastatin 40 mg tablet 40 mg PO QPM polyethylene glycol 3350 [Miralax] 17 gram/dose Powder 17 g PO PRN PRN (Reason: Constipation) doxazosin 2 mg tablet 2 mg PO BEDTIME aspirin 81 mg Tablet,Delayed Release (Dr/Ec) 81 mg PO DAILY 30 Days Qty: 30 0RF levothyroxine 100 mcg capsule 100 mcg PO DAILY 30 Days Qty: 30 0RF Eliquis 5 mg tablet 2.5 mg PO BID mirtazapine 15 mg tablet 15 mg PO BEDTIME PRN (Reason: insomnia ) cefepime 2 gram recon soln See Rx Instructions .ROUTE .COMPLEX Rx Instructions: 2g TuThuSa after HD daptomycin 500 mg recon soln See Rx Instructions .ROUTE .COMPLEX Rx Instructions: 640mg TuThuSa after HD administer over 30 mins losartan 50 mg Tablet 50 mg PO DAILY Qty: 90 0RF pantoprazole 40 mg Tablet,Delayed Release (Dr/Ec) 40 mg PO BID Qty: 180 0RF insulin lispro [Humalog U-100 Insulin] 100 unit/mL Solution See Rx Instructions .ROUTE .COMPLEX Qty: 10 0RF Rx Instructions: ACHS Glucose: 141-180 - 2 units 181-220 - 3 221-260 - 4 261-300 - 5 301-350 - 6 351-400 - 7 >400 - 8 units Referrals: Mann Garduno MD [Primary Care Provider] - Patient Instructions: Altered Mental Status (ED) DS Attestations Quality - VTE: Deep Vein Thrombosis/Pulmonary Embolism Present on Admission: No Coding Level of Care Code Acute Code for Chg Fwd Diagnoses Hospice care Z51.5 Admission for hospice care Z51.5
== END 2024-08-12 14:29 | disposition hospice, inpatient (51) | DRG 371 ==
LOC: ER 21:08 → MEDSURG 21:09
PROVIDERS: Family Medicine; Admitting Provider Internal Medicine; Emergency Provider Emergency Medicine; PCP Family Medicine; Visit Provider Family Medicine
DX: K65.9 Peritonitis, unspecified (principal); G92.9 Unspecified toxic encephalopathy; N18.6 End stage renal disease; I21.4 Non-ST elevation (NSTEMI) myocardial infarction; N39.0 Urinary tract infection, site not specified; I13.2 Hypertensive heart and chronic kidney disease with heart failure and with stage 5 chronic kidney disease, or end stage renal disease; J84.9 Interstitial pulmonary disease, unspecified; M86.8X7 Other osteomyelitis, ankle and foot; E11.22 Type 2 diabetes mellitus with diabetic chronic kidney disease; I50.9 Heart failure, unspecified; I48.91 Unspecified atrial fibrillation; Z87.440 Personal history of urinary (tract) infections; T36.96XA Underdosing of unspecified systemic antibiotic, initial encounter; Z66 Do not resuscitate; E11.69 Type 2 diabetes mellitus with other specified complication; E03.9 Hypothyroidism, unspecified; M19.90 Unspecified osteoarthritis, unspecified site; Z99.2 Dependence on renal dialysis; Z91.148 Patient's other noncompliance with medication regimen for other reason; Z79.01 Long term (current) use of anticoagulants; Z79.4 Long term (current) use of insulin; Z79.82 Long term (current) use of aspirin; Z98.1 Arthrodesis status; Z88.0 Allergy status to penicillin; Z87.01 Personal history of pneumonia (recurrent); Z86.16 Personal history of COVID-19; Z82.49 Family history of ischemic heart disease and other diseases of the circulatory system; Z83.3 Family history of diabetes mellitus; Z80.9 Family history of malignant neoplasm, unspecified
CPT/HCPCS: 36415; 36416; 36600; 51702; 70450; 70496; 70498; 71045; 71275; 74177; 80051; 80053; 81001; 82009; 82140; 82330; 82805; 82962; 83605; 83690; 83735; 84100; 84145; 84439; 84443; 84481; 84484; 85025; 85378; 85651; 85730; 86140; 87040; 87086; 93005; 93970; 96372; G0378; J1644; J2020; J2060; J2185; J2270; J2405; J2470; J7030

== ENCOUNTER 2024-08-12 14:30 | Inpatient (IN) | payer OTHER, MEDICARE, SELFPAY ==
--- OUTSIDE RECORDS SUMMARY | 2024-08-15 09:20 | XMS_ITS ---
Author Name Yadi Blanc Address [address] [place], [place] [address] Phone [phone] Organization [facility], NA DOCUMENT DISCLAIMER Multiple document versions may exist, please be sure you review the latest version. The information in the [facility] Progress Note Document represents a providers documented clinical note containing certain health and medical information. It may not contain the complete medical history for the patient and should be independently verified. The represented time in the document is Eastern Time PROVIDER ROUNDING NOTE PD Patient:?Luiza?Kenneth,?1940,?84y,?F Dialysis?Location:[facility] Attending?[employer] Drier:?[employer]?Date:?05/02/2024 Service?Provider:?Yadi?Guanaco,? I?met?face?to?face?with?the?patient?today. 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 No?issues?with?CHF.?No?swelling?or?SOB.?She?does?remain?on?O2?NC?at?night.? BPs?are?stable?111-125/55. She?did?break?her?pelvis?after?a?fall.?She?is?at&# 160;[facility]?for?rehab?and?pain?control.?She?is?back?home now. Did?have?UTI?with?sepsis?and?was?hospitalized?for?a couple?of?days. She?was?hospitalized?for?having?a?UTI.?She?had?MRSA&#16 0;in?urine.?She?has?completed?her?abx.?She?is?feeling&# 160;well.?She?is?to?see?her?PCP?and?possibly?to?add?prophylactic?abx. Medications?and?labs?reviewed. 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 Comments:?Stable. BP?Sit ??04/25/2024:?111/59 ??03/28/2024:?101/63 ??03/21/2024:?116/73 Weight?(kg) ??04/25/2024:?81.4 ??03/28/2024:?78 ??03/21/2024:?81.3 Temp ??04/25/2024:?97.7 Respirations ??04/25/2024:?18 Pulse ??04/25/2024:?94 Height ??10/26/2023:?4'?11'' TREATMENT?ASSESSMENT Comments:?Stable. BP ??05/02/2024:?138/65 ??05/01/2024:?135/63 FLUID?ASSESSMENT Comments:?Stable.?No?leg?edema. Change?EDW?to?79?kg;?has?lost?weight. DIALYSIS?PRESCRIPTION ??CCPD?7x?Week?Start?date:?03/29/24 ??Cycles:?3 ??Cycler?Fill:?1900 ??Avg?Dwell:?2:30 ??Total?Cycler:?540 ??Last?Fill:?100 ??Day?Exch:?0 ??Day?Fill:? ??EDW:?78 ??Rx?updated?on:?03/29/2024 Comments:?Doing?well?with?CCPD. ADEQUACY?ASSESSMENT Comments:?Stable. PD?Kt/V,?Total ??03/18/2024:?2.53 ??02/19/2024:?1.09 ??01/20/2024:?1.48 ACCESS?ASSESSMENT ??Access?Type:?PDCatheter ??Access?SubType:?Double?Cuff?Coiled ??Access?Status:?Active?(In?Use)?-?12/02/2021 ??Access?Location:?Right?Lower?Quadrant ??Placed:?06/28/2021 Comments:?Stable. ANEMIA?ASSESSMENT Comments:?On?IV?iron?and?ANNIE?protocol. HGB,?TSAT ??04/25/2024:?11.7,?32.0 ??03/21/2024:?10.5,?31.0 ??02/22/2024:?9.2,?31.0 ?? Ferritin ??03/21/2024:?924.0 ??12/21/2023:?762.0 Mircera,?Sub?Q?(mcg) ??04/25/2024:?75 ??03/28/2024:?75 ??03/18/2024:?75 Iron?Sucrose?(Venofer)?(mg) ??03/21/2024:?200 ??02/22/2024:?200 BMM?ASSESSMENT Comments:? PTH,?Intact ??03/21/2024:?373.0 ??12/21/2023:?351.0 ?? Calcium,?Phosphorus ??04/25/2024:?8.6,?3.3 ??03/21/2024:?8.3,?3.1 ??02/22/2024:?8.5,?5.0 NUTRITION?ASSESSMENT Comments:?Ed?on?protein?in?diet. Recent?pelvic?fx?and?UTI. Ed?to?increase?potassium?foods. Potassium,?Albumin ??04/25/2024:?3.7,?3.1 ??03/21/2024:?3.4,?2.8 ??02/22/2024:?4.0,?3.2 PHYSICAL?EXAM Exam?Performed.?Vital?Signs?Reviewed.?Lungs?-?Clear.?CV&#160 ;-?Blood?pressure?noted.?CV?-?RRR.?EXT?-?No?edema.?ABD?-?Soft/nontender. DIAGNOSIS Chief?Complaint:?N18.6?End?stage?renal?disease Patient?is?stable. 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 Hga1c?6.6% Patient?data?updated?05/02/2024?at?11:32?AM Signed?By:?Guanaco,?Yadi???on?05/02/2024?11:44:07?AM END OF DOCUMENT
--- OUTSIDE RECORDS SUMMARY | 2024-08-15 09:20 | XMS_ITS ---
Author Name Yadi Blanc Address [address] [place], [place] [address] Phone [phone] Organization [facility], NA DOCUMENT DISCLAIMER Multiple document versions may exist, please be sure you review the latest version. The information in the [facility] Progress Note Document represents a providers documented clinical note containing certain health and medical information. It may not contain the complete medical history for the patient and should be independently verified. The represented time in the document is Eastern Time PROVIDER ROUNDING NOTE PD Patient:?Luiza?Kenneth,?1940,?84y,?F Dialysis?Location:?[facility] Attending?Montessori Teacher:?[employer]?Date:?05/31/2024 Service?Provider:?Yadi?Guanaco,? I?met?face?to?face?with?the?patient?today. 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 No?issues?with?CHF.?No?swelling?or?SOB.?She?does?remain?on?O2?NC?at?night.? BPs?are?stable?111-125/55. She?did?break?her?pelvis?after?a?fall.?She?is?at&# 160;[facility]?for?rehab?and?pain?control.?She?is?back?home now. Did?have?UTI?with?sepsis?and?was?hospitalized?for?a couple?of?days. She?was?hospitalized?for?having?a?UTI.?She?had?MRSA&#16 0;in?urine.?She?has?completed?her?abx.?She?is?feeling&# 160;well.?She?is?to?see?her?PCP?and?possibly?to?add?prophylactic?abx. She?still?has?a?wound?on?her?right?heel.?She?is&#1 60;seeing?wound?care.?She?is?to?be?on?an?abx.? Medications?and?labs?reviewed. 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 Comments:?Stable. BP?Sit ??05/24/2024:?124/67 ??04/25/2024:?111/59 ??03/28/2024:?101/63 Weight?(kg) ??05/24/2024:?80.2 ??04/25/2024:?81.4 ??03/28/2024:?78 Temp ??05/24/2024:?96.4 Pulse ??05/24/2024:?94 TREATMENT?ASSESSMENT Comments:?Stable. BP ??05/31/2024:?126/61 ??05/30/2024:?125/65 FLUID?ASSESSMENT Comments:?Stable.?No?leg?edema. Change?EDW?to?79?kg;?has?lost?weight. DIALYSIS?PRESCRIPTION ??CCPD?7x?Week?Start?date:?05/10/24 ??Cycles:?3 ??Cycler?Fill:?1900 ??Avg?Dwell:?2:30 ??Total?Cycler:?540 ??Last?Fill:?100 ??Day?Exch:?0 ??Day?Fill:? ??EDW:?80 ??Rx?updated?on:?05/10/2024 Comments:?Doing?well?with?CCPD. ADEQUACY?ASSESSMENT Comments:?Stable. PD?Kt/V,?Total ??05/24/2024:?2.64 ??03/18/2024:?2.53 ??02/19/2024:?1.09 ACCESS?ASSESSMENT ??Access?Type:?PDCatheter ??Access?SubType:?Double?Cuff?Coiled ??Access?Status:?Active?(In?Use)?-?12/02/2021 ??Access?Location:?Right?Lower?Quadrant ??Placed:?06/28/2021 Comments:?Stable. ANEMIA?ASSESSMENT Comments:?On?IV?iron?and?ANNIE?protocol. HGB,?TSAT ??05/24/2024:?11.9,?24.0 ??04/25/2024:?11.7,?32.0 ??03/21/2024:?10.5,?31.0 ?? Ferritin ??03/21/2024:?924.0 ??12/21/2023:?762.0 Mircera,?Sub?Q?(mcg) ??05/24/2024:?30 ??04/25/2024:?75 ??03/28/2024:?75 Iron?Sucrose?(Venofer)?(mg) ??05/24/2024:?200 ??03/21/2024:?200 BMM?ASSESSMENT Comments:? PTH,?Intact ??03/21/2024:?373.0 ??12/21/2023:?351.0 ?? Calcium,?Phosphorus ??05/24/2024:?8.5,?3.9 ??04/25/2024:?8.6,?3.3 ??03/21/2024:?8.3,?3.1 NUTRITION?ASSESSMENT Comments:?Ed?on?protein?in?diet. Has?a?right?heel?wound. Potassium,?Albumin ??05/24/2024:?4.1,?3.0 ??04/25/2024:?3.7,?3.1 ??03/21/2024:?3.4,?2.8 PHYSICAL?EXAM Comments:?RLE?with?podas?boot. Exam?Performed.?Vital?Signs?Reviewed.?Lungs?-?Clear.?CV&#160 ;-?Blood?pressure?noted.?CV?-?RRR.?EXT?-?No?edema. ?EXT?-?Ulcers?on?foot?or?lower?extremity.?ABD?- Soft/nontender. DIAGNOSIS Chief?Complaint:?N18.6?End?stage?renal?disease Patient?is?stable. Patient?data?updated?05/31/2024?at?2:06?PM Signed?By:?Guanaco,?Yadi,???on?05/31/2024?2:14:08?PM END OF DOCUMENT
--- OUTSIDE RECORDS SUMMARY | 2024-08-15 09:20 | XMS_ITS ---
Author Name Yadi Blanc Address [address] [place] [id number] Phone [phone] Organization [facility], NA DOCUMENT DISCLAIMER Multiple document versions may exist, please be sure you review the latest version. The information in the [facility] Progress Note Document represents a providers documented clinical note containing certain health and medical information. It may not contain the complete medical history for the patient and should be independently verified. The represented time in the document is Eastern Time PROVIDER ROUNDING NOTE PD Patient:?Luiza?Kenneth,?1940,?84y,?F Dialysis?Location:?[facility] Attending?Food Management Aide:?[employer]?Date:?06/28/2024 Service?Provider:?Yadi?Guanaco,? I?met?face?to?face?with?the?patient?today. 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 She?still?has?a?wound?on?her?right?heel.?She?is&#1 60;seeing?wound?care.?She?is?on?abx?and?has?a?woun d?vac.?She?reports?her?wound?is?not?healing?well.? To?have?a?doppler?US?to?her?RLE. Medications?and?labs?reviewed. 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 Comments:?Stable. BP?Sit ??06/22/2024:?125/62 ??05/24/2024:?124/67 ??04/25/2024:?111/59 Weight?(kg) ??06/22/2024:?84.4 ??05/24/2024:?80.2 ??04/25/2024:?81.4 Temp ??06/22/2024:?97.8 Pulse ??06/22/2024:?87 TREATMENT?ASSESSMENT Comments:?Stable. BP ??06/28/2024:?114/53 ??06/27/2024:?110/51 FLUID?ASSESSMENT Comments:?Stable.?No?leg?edema. Change?EDW?to?85?kg;?has?gained?weight. DIALYSIS?PRESCRIPTION ??CCPD?7x?Week?Start?date:?06/07/24 ??Cycles:?3 ??Cycler?Fill:?1900 ??Avg?Dwell:?2:30 ??Total?Cycler:?540 ??Last?Fill:?100 ??Day?Exch:?0 ??Day?Fill:? ??EDW:?83 ??Rx?updated?on:?06/07/2024 Comments:?Doing?well?with?CCPD. ADEQUACY?ASSESSMENT Comments:?Stable. PD?Kt/V,?Total ??05/24/2024:?2.64 ??03/18/2024:?2.53 ??02/19/2024:?1.09 ACCESS?ASSESSMENT ??Access?Type:?PDCatheter ??Access?SubType:?Double?Cuff?Coiled ??Access?Status:?Active?(In?Use)?-?12/02/2021 ??Access?Location:?Right?Lower?Quadrant ??Placed:?06/28/2021 Comments:?Stable. ANEMIA?ASSESSMENT Comments:?On?IV?iron?and?ANNIE?protocol. HGB,?TSAT ??06/22/2024:?11.1,?36.0 ??05/24/2024:?11.9,?24.0 ??04/25/2024:?11.7,?32.0 ?? Ferritin ??06/22/2024:?1020.0 ??03/21/2024:?924.0 Mircera,?Sub?Q?(mcg) ??05/24/2024:?30 ??04/25/2024:?75 ??03/28/2024:?75 Iron?Sucrose?(Venofer)?(mg) ??05/31/2024:?200 ??05/24/2024:?200 BMM?ASSESSMENT Comments:?Stable?at?goal. PTH,?Intact ??06/22/2024:?387.0 ??03/21/2024:?373.0 ?? Calcium,?Phosphorus ??06/22/2024:?8.7,?4.6 ??05/24/2024:?8.5,?3.9 ??04/25/2024:?8.6,?3.3 NUTRITION?ASSESSMENT Comments:?Ed?on?protein?in?diet. Has?a?right?heel?wound. Albumin?has?increased Potassium,?Albumin ??06/22/2024:?4.6,?3.3 ??05/24/2024:?4.1,?3.0 ??04/25/2024:?3.7,?3.1 PHYSICAL?EXAM Comments:?RLE?with?podas?boot. Exam?Performed.?Vital?Signs?Reviewed.?Lungs?-?Clear.?CV&#160 ;-?Blood?pressure?noted.?CV?-?RRR.?EXT?-?No?edema. ?EXT?-?No?ulcers.?ABD?-?Soft/nontender. DIAGNOSIS Chief?Complaint:?N18.6?End?stage?renal?disease Patient?is?stable. Patient?data?updated?06/28/2024?at?1:34?PM Signed?By:?Guanaco,?Yadi???on?06/28/2024?1:41:42?PM END OF DOCUMENT
[2024-08-15 09:53] VITALS: BP 00/00; PULSE 0; O2SAT 0
== END 2024-08-15 09:55 | disposition expired | DRG 951 ==
PROVIDERS: Admitting Provider Family Medicine; PCP Family Medicine; Visit Provider Family Medicine
DX: Z51.5 Encounter for palliative care (principal); G92.8 Other toxic encephalopathy; I63.9 Cerebral infarction, unspecified; N18.6 End stage renal disease; N39.0 Urinary tract infection, site not specified; M86.671 Other chronic osteomyelitis, right ankle and foot; I13.2 Hypertensive heart and chronic kidney disease with heart failure and with stage 5 chronic kidney disease, or end stage renal disease; L97.419 Non-pressure chronic ulcer of right heel and midfoot with unspecified severity; E11.22 Type 2 diabetes mellitus with diabetic chronic kidney disease; I50.9 Heart failure, unspecified; Z99.2 Dependence on renal dialysis; Z87.440 Personal history of urinary (tract) infections; E11.621 Type 2 diabetes mellitus with foot ulcer